=== PATIENT | female | born 1950 | race Caucasian/White ===

== ENCOUNTER 2018-01-10 10:17 | Emergency (ER) | END 2018-01-10 11:40 | disposition home or self-care (01) ==

== ENCOUNTER 2018-04-11 00:59 | Inpatient (IN) | payer MEDICARE, OTHER ==
[2018-04-11] VITALS (13 sets, daily range): BP systolic 126–155; BP diastolic 63–100; PULSE 52–114; RESP 16–30; Ht 152.4 cm; Wt 54.5 kg
[~2018-04-11] VITALS: Ht 152.4 cm; Wt 54.5 kg
[~2018-04-11 00:59] MED LIST: ADV25050 INHALATION; ALBU8.5H8 INH; HYDR-3029 PO; LEVO500T10 PO; METH5SOL3 PO; SERT-165 PO; TRAM50TA PO
[2018-04-11] MEDS ORDERED: morphine 2 MG INJ IV STA (01:34)
[2018-04-11] MEDS ORDERED: DEXTROSE 50% 50 ML SYRINGE IV ONE (02:00)
[2018-04-11] MEDS ORDERED: DIAZEPAM 5 MG/ML SYG IV ONE ×2 (02:30→03:30)
[2018-04-11] MEDS ORDERED: SOD CHLORIDE 0.9% 1,000 ML IV SCH (06:23)
[2018-04-11] MEDS ORDERED: ONDANSETRON 4 MG INJ IV PRN (06:30)
[2018-04-11] MEDS ORDERED: NACL 0.9% 3 ML SYG IV SCH (06:30)
[2018-04-11] MEDS ORDERED: HALOPERIDOL 5 MG INJ IM PRN ×2 (06:30→10:00)
--- NOTE | 2018-04-11 06:52 | HP ---
Date/Time of Note Date/Time of Note DATE: 04/11/18 TIME: 06:51 Assessment/Plan VTE Prophylaxis SCD applied (from Nsg): Yes Pharmacological prophylaxis: NA/contraindicated Pharm contraindication: low risk/ambulating Lines/Catheters IV Catheter Type (from Nrsg): Saline Lock Assessment/Plan Hospital Course This is a 60-year-old female being admitted to the telemetry floor for: #1 acute encephalopathy: Toxic metabolic possibly secondary to methadone and marijuana use. Urine drug screen is positive for opiates and cannabinoids. She did receive morphine and Valium in the ED and is now sedated, she is arousable but she does appear to be altered still. Will try to avoid further benzos at the current time also given that she has a Lorazepam allergy. PRN Haldol IM. Restraints as needed. Psych evaluation. CT scan of the head did not show any acute abnormalities. Consider MRI if indicated. #2 Acute kidney injury: Secondary likely to prerenal etiology, hemodynamics. IV fluid hydration with normal saline. Will monitor renal function. Avoid nephrotoxic agents. #3 history of hep C: gi on consult, check hcv #4 history of heroin abuse: Patient currently on methadone. Will consult Dr. Perez for further management. PRN Haldol for agitation and withdrawal symptoms. Psych consult #5 COPD: No respiratory distress at the current time no wheezing. Continue Advair #6 DVT GI prophylaxis: SCDs, no GI prophylaxis indicated Further treatment strategy will be implemented as per the clinical course. Result Diagram: 04/11/187 04/11/18 0127 Results 24hrs Laboratory Tests Test 04/11/18 01:14 04/11/18 01:26 04/11/18 01:27 04/11/18 01:56 Bedside Glucose 69 L 167 POC Venous Lactate 1.9 White Blood Count 7.5 # Red Blood Count 4.19 L Hemoglobin 12.8 Hematocrit 42.6 Mean Corpuscular 101.7 H Volume Mean Corpuscular 30.5 Hemoglobin Mean Corpuscular 30.0 L Hemoglobin Concent Red Cell 12.3 Distribution Width Platelet Count 129 L Mean Platelet Volume 11.3 H Immature 0.400 Granulocytes % Neutrophils % 65.6 Lymphocytes % 23.9 Monocytes % 7.0 Eosinophils % 2.8 Basophils % 0.3 Nucleated Red Blood 0.0 Cells % Immature 0.030 Granulocytes # Neutrophils # 4.9 Lymphocytes # 1.8 Monocytes # 0.5 Eosinophils # 0.2 Basophils # 0.0 Nucleated Red Blood 0.0 Cells # Sodium Level 140 Potassium Level 5.0 Chloride Level 97 Carbon Dioxide Level 35 H Anion Gap 8 Blood Urea Nitrogen 24 H Creatinine 1.07 H Est Glomerular 51 L Filtrat Rate mL/min Glucose Level 92 Calcium Level 9.6 Total Bilirubin 0.1 L Direct Bilirubin 0.00 Indirect Bilirubin 0.1 Aspartate Amino 75 H Transf (AST/SGOT) Alanine 49 Aminotransferase (AL T/SGPT) Alkaline Phosphatase 60 Troponin I < 0.012 Total Protein 8.4 H Albumin 4.4 Globulin 4.00 H Albumin/Globulin 1.10 Ratio Salicylates Level < 1.0 L Acetaminophen Level < 10.0 L Ethyl Alcohol Level < 10.0 H Test 04/11/18 03:16 04/11/18 05:13 04/11/18 05:29 Bedside Glucose 108 Urine Color STRAW Urine Clarity CLEAR Urine pH 7.0 Urine Specific 1.005 [place] Urine Ketones NEGATIVE Urine Nitrite NEGATIVE Urine Bilirubin NEGATIVE Urine Urobilinogen NEGATIVE Urine Leukocyte NEGATIVE Esterase Urine Hemoglobin NEGATIVE Urine Glucose 1+ H Urine Total Protein NEGATIVE Urine Opiates Screen Positive Urine Barbiturates Negative Urine Amphetamines Negative Screen Urine Negative Benzodiazepines Screen Urine Cocaine Screen Negative Urine Cannabinoids Positive Lactic Acid Level 2.3 *H HPI/ROS Admit Date/Time Admit Date/Time Hx of Present Illness Chief complaint: Brought in by EMS from home secondary to altered level of consciousness secondary to possible methadone overdose The following history was obtained from the nurse at the bedside as well as from the EMS documentation as the patient was unable to provide a history given her clinical condition. This is a 68-year-old female with a past medical history of hepatitis C, heroin abuse currently on methadone, and anxiety who was found at home by roommate altered in the bathroom. Patient does take methadone and it was thought that the patient may have had an overdose.. EMS responded and noted pinpoint pupils and she was given intranasal Narcan. She did become more responsive after receiving the Narcan however she was noted to be altered. When she arrived to the [facility] emergency room she was noted to be very restless she was alert and oriented x2 and she was screaming. She did not report any pain. Patient repeatedly tried to get out of the bed. And she was not stable enough to go into the CAT scan due to her agitation. She was initially given morphine to see if she would be able to calm down however this did not work so she was given Valium which eventually resulted in her becoming calm and sedated. Patient also required restraints prior to that she was trying get out of bed. At the current time at the bedside patient is somnolent. She did awaken to sternal rub however she she remains altered. Allergies: 1. SULFA. 2. CHLORPROMAZINE 3. LORAZEPAM. Medications: We will need to confirm however listed on the EMR methadone, tramadol, hydroxyzine, Levaquin, sertraline, Advair ROS Subjective hx not possible: other (altered ) PMH/Family/Social Past Medical History COPD. Hepatitis C. Anxiety. History of heroin abuse currently on methadone Medications Current Medications Sodium Chloride 1,000 ml @ 100 mls/hr Q10H IV ; Start 04/11/18 at 06:23 IV Flush (NS 3 ml) 3 ml PER PROTOCOL IV ; Start 04/11/18 at 06:30 Ondansetron HCl (Zofran Inj) 4 mg Q6H PRN IV NAUSEA/VOMITING; Start 04/11/18 at 06:30 Acetaminophen (Tylenol Tab) 650 mg Q6H PRN PO .PAIN 1-3 OR TEMP; Start 04/11/18 at 06:30 Haloperidol (Haldol) 3 mg Q4 PRN IM AGITATION/ANXIETY; Start 04/11/18 at 06:30 Coded Allergies: Sulfa (Sulfonamide Antibiotics) (Verified Allergy, Mild, 02/22/16) chlorpromazine HCl (Verified Allergy, Unknown, 02/22/16) lorazepam (Unverified Allergy, Unknown, 02/22/16) Uncoded Allergies: tape (Allergy, Mild, rash, 02/28/16) Past Surgical History Unable to obtain given patient's clinical condition Family History Significant Family History: other (Unable to obtain given patient's clinical condition) Social History Smoking Status: Former smoker Drug Use: other (History of heroin abuse, currently on methadone) Exam/Review of Systems Vital Signs Vitals Vital Signs Date Temp Pulse Resp B/P (MAP) Pulse Ox O2 O2 Flow FiO2 Time Delivery Rate 04/11/18 55 27 113/62 97 Room Air 05:53 (79) 04/11/18 97.4 05:30 Exam Exam General: Patient is currently sedated, she was arousable with sternal rub but she still appears altered. HEENT: Atraumatic, normocephalic. The pupils are equal, round and reactive, do not appear to be pinpoint at the current time Neck: Supple with full range of motion. No rigidity or meningismus Chest: Nontender Lungs: Clear to auscultation bilaterally no crackles rales or wheezing Heart: Normal S1-S2, Regular rhythm and rate. No murmur, S3, or S4 Abdomen: Soft , nontender, nondistended , bowel sounds are present. No guarding no rebound tenderness , No masses or organomegaly. Extremities: Normal to inspection, no edema no cyanosis Neurologic: Somnolent/sedated, arousable to sternal rub but she still appears altered. She does grimace to pain and move all 4 extremities Additional Comments EKG: Shows normal sinus rhythm at approximately 90 bpm, partial right bundle branch block PROCEDURE: CT BRAIN WITHOUT CONTRAST CLINICAL INDICATION: 68-year-old female with altered mental status. TECHNIQUE: The study was performed utilizing The [employer] 64-slice CT scanner. Direct axial sections were obtained from the foramen magnum to the vertex without the use of intravenous contrast material. There is motion artifact on the initial scanning therefore the scan was repeated. Sagittal and coronal reformations were obtained. One or more of the following dose reduction techniques were utilized: automated exposure control, adjustment of the mA and/or kV according to patient's size or use of iterative reconstruction technique. DICOM images are available. The images were viewed on a PACS workstation. CTD/vol = 79.28 mGy; Total Exam DLP = 1427.02 mGy.cm. COMPARISON: None. FINDINGS: Motion artifact limiting the evaluation despite repeating the study. There is [id number] degree of diffuse cortical and central atrophy with compensa tory ventricular enlargement. There is no evidence for mass effect or midline shift. There are periventricular and deep white matter areas of decreased density consistent with microangiopathic ischemic changes. There is focal superior and cerebellar vermis encephalomalacia. In retrospect this was seen on the patient's prior study. There is no evidence for acute intra or extra-axial blood. Calcifications are seen within the intracranial carotid arteries bilaterally. The bony calvarium is intact. There is thinning of the left lens again noted presumably from prior cataract surgery. The visualized paranasal sinuses and mastoid air cells are without significant abnormal soft tissue. IMPRESSION: 1. Motion artifact limiting the evaluation. 2. The intracranial contents are without significant interval change compared to the patient's prior CT scan from August 16, 2015. 3. [id number] diffuse atrophy. 4. Microangiopathic ischemic changes. 5. Focal superior cerebellar vermis encephalomalacia. This may be due to a prior infarct. 6. Vascular calcifications. .Kashif Morrow MD, MD Date Time Electronically viewed and signed by .Kashif Morrow MD, MD on 04/11/2018 05:19 .M/ CC: GERALDO NEWBY [id number] [place] Apr 11, 2018 06:52
[2018-04-11] MEDS ORDERED: NON-FORMULARY/PATIENT OWN MED (Salmeterol Xinaf/Fluticasone* (Advair*) 1 INH) INHALATION SCH (09:00)
--- NOTE | 2018-04-11 09:47 | PN ---
Date/Time of Note Date/Time of Note DATE: 04/11/18 TIME: 09:39 Assessment/Plan VTE Prophylaxis SCD applied (from Nsg): Yes Pharmacological prophylaxis: other Lines/Catheters IV Catheter Type (from Nrsg): Saline Lock Assessment/Plan Hospital Course S: Patient a bit more alert now, actually agitated and screaming out at times, but still overall lethargic. O: VS - see below PE: General: Patient is somewhat arousable, still appears altered. HEENT: Atraumatic, normocephalic. The pupils are equal, round and reactive, do not appear to be pinpoint at the current time Neck: Supple with full range of motion. No rigidity or meningismus Chest: Nontender Lungs: Clear to auscultation bilaterally no crackles rales or wheezing Heart: Normal S1-S2, Regular rhythm and rate Abdomen: Soft , nontender, nondistended , bowel sounds are present. No guarding no rebound tenderness , No masses or organomegaly. Extremities: Normal to inspection, no edema no cyanosis Neurologic: Somnolent/sedated, arousable to sternal rub but she still appears altered. She does grimace to pain and move all 4 extremities A/P: 60-year-old female being admitted to the telemetry floor for: #1 acute encephalopathy: Toxic metabolic possibly secondary to methadone and marijuana use. Urine drug screen is positive for opiates and cannabinoids. She did receive morphine and Valium in the ED and was sedated, she is arousable but she does appear to be altered still. CT scan of the head did not show any acute abnormalities. -Monitor, will try to avoid further benzos at the current time also given that she has a Lorazepam allergy. -Continue PRN Haldol IM. Restraints as needed. -Follow-up recommendations from pain management and psych evaluation. -Consider MRI if indicated. #2 Acute kidney injury: Secondary likely to prerenal etiology, hemodynamics. -Continue IV fluid hydration with normal saline. Will monitor renal function. Avoid nephrotoxic agents. #3 history of hep C: Apparent history of this, history of IV drug abuse -Monitor, will check acute hepatitis panel #4 history of heroin abuse: Patient currently on methadone. -Again, will consult Dr. Perez pain managed for further management, and will try to verify patient's home methadone dose -Continue PRN Haldol for agitation and withdrawal symptoms. Psych consult #5 COPD: No respiratory distress at the current time no wheezing. Continue Advair #6 DVT GI prophylaxis: SCDs, no GI prophylaxis indicated Further treatment strategy will be implemented as per the clinical course. Result Diagram: 04/11/1812604/11/18126 Results 24hrs Laboratory Tests Test 04/11/18 01:14 04/11/18 01:26 04/11/18 01:27 04/11/18 01:56 Bedside Glucose 69 L 167 POC Venous Lactate 1.9 White Blood Count 7.5 # Red Blood Count 4.19 L Hemoglobin 12.8 Hematocrit 42.6 Mean Corpuscular 101.7 H Volume Mean Corpuscular 30.5 Hemoglobin Mean Corpuscular 30.0 L Hemoglobin Concent Red Cell 12.3 Distribution Width Platelet Count 129 L Mean Platelet Volume 11.3 H Immature 0.400 Granulocytes % Neutrophils % 65.6 Lymphocytes % 23.9 Monocytes % 7.0 Eosinophils % 2.8 Basophils % 0.3 Nucleated Red Blood 0.0 Cells % Immature 0.030 Granulocytes # Neutrophils # 4.9 Lymphocytes # 1.8 Monocytes # 0.5 Eosinophils # 0.2 Basophils # 0.0 Nucleated Red Blood 0.0 Cells # Sodium Level 140 Potassium Level 5.0 Chloride Level 97 Carbon Dioxide Level 35 H Anion Gap 8 Blood Urea Nitrogen 24 H Creatinine 1.07 H Est Glomerular 51 L Filtrat Rate mL/min Glucose Level 92 Calcium Level 9.6 Total Bilirubin 0.1 L Direct Bilirubin 0.00 Indirect Bilirubin 0.1 Aspartate Amino 75 H Transf (AST/SGOT) Alanine 49 Aminotransferase (AL T/SGPT) Alkaline Phosphatase 60 Troponin I < 0.012 Total Protein 8.4 H Albumin 4.4 Globulin 4.00 H Albumin/Globulin 1.10 Ratio Salicylates Level < 1.0 L Acetaminophen Level < 10.0 L Ethyl Alcohol Level < 10.0 H Test 04/11/18 03:16 04/11/18 05:13 04/11/18 05:29 04/11/18 09:26 Bedside Glucose 108 80 Urine Color STRAW Urine Clarity CLEAR Urine pH 7.0 Urine Specific 1.005 [place] Urine Ketones NEGATIVE Urine Nitrite NEGATIVE Urine Bilirubin NEGATIVE Urine Urobilinogen NEGATIVE Urine Leukocyte NEGATIVE Esterase Urine Hemoglobin NEGATIVE Urine Glucose 1+ H Urine Total Protein NEGATIVE Urine Opiates Screen Positive Urine Barbiturates Negative Urine Amphetamines Negative Screen Urine Negative Benzodiazepines Screen Urine Cocaine Screen Negative Urine Cannabinoids Positive Lactic Acid Level 2.3 *H Exam/Review of Systems Exam Vitals Vital Signs Date Temp Pulse Resp B/P (MAP) Pulse Ox O2 O2 Flow FiO2 Time Delivery Rate 04/11/18 98.2 50 22 145/62 97 Room Air 09:00 (89) Results Results 24hrs Laboratory Tests Test 04/11/18 01:14 04/11/18 01:26 04/11/18 01:27 04/11/18 01:56 Bedside Glucose 69 L 167 POC Venous Lactate 1.9 White Blood Count 7.5 # Red Blood Count 4.19 L Hemoglobin 12.8 Hematocrit 42.6 Mean Corpuscular 101.7 H Volume Mean Corpuscular 30.5 Hemoglobin Mean Corpuscular 30.0 L Hemoglobin Concent Red Cell 12.3 Distribution Width Platelet Count 129 L Mean Platelet Volume 11.3 H Immature 0.400 Granulocytes % Neutrophils % 65.6 Lymphocytes % 23.9 Monocytes % 7.0 Eosinophils % 2.8 Basophils % 0.3 Nucleated Red Blood 0.0 Cells % Immature 0.030 Granulocytes # Neutrophils # 4.9 Lymphocytes # 1.8 Monocytes # 0.5 Eosinophils # 0.2 Basophils # 0.0 Nucleated Red Blood 0.0 Cells # Sodium Level 140 Potassium Level 5.0 Chloride Level 97 Carbon Dioxide Level 35 H Anion Gap 8 Blood Urea Nitrogen 24 H Creatinine 1.07 H Est Glomerular 51 L Filtrat Rate mL/min Glucose Level 92 Calcium Level 9.6 Total Bilirubin 0.1 L Direct Bilirubin 0.00 Indirect Bilirubin 0.1 Aspartate Amino 75 H Transf (AST/SGOT) Alanine 49 Aminotransferase (AL T/SGPT) Alkaline Phosphatase 60 Troponin I < 0.012 Total Protein 8.4 H Albumin 4.4 Globulin 4.00 H Albumin/Globulin 1.10 Ratio Salicylates Level < 1.0 L Acetaminophen Level < 10.0 L Ethyl Alcohol Level < 10.0 H Test 04/11/18 03:16 04/11/18 05:13 04/11/18 05:29 04/11/18 09:26 Bedside Glucose 108 80 Urine Color STRAW Urine Clarity CLEAR Urine pH 7.0 Urine Specific 1.005 [place] Urine Ketones NEGATIVE Urine Nitrite NEGATIVE Urine Bilirubin NEGATIVE Urine Urobilinogen NEGATIVE Urine Leukocyte NEGATIVE Esterase Urine Hemoglobin NEGATIVE Urine Glucose 1+ H Urine Total Protein NEGATIVE Urine Opiates Screen Positive Urine Barbiturates Negative Urine Amphetamines Negative Screen Urine Negative Benzodiazepines Screen Urine Cocaine Screen Negative Urine Cannabinoids Positive Lactic Acid Level 2.3 *H Medications Medication Current Medications Sodium Chloride 1,000 ml @ 100 mls/hr Q10H IV Last administered on 04/11/18at 07:36; Admin Dose 100 MLS/HR; Start 04/11/18 at 06:23 IV Flush (NS 3 ml) 3 ml PER PROTOCOL IV ; Start 04/11/18 at 06:30 Ondansetron HCl (Zofran Inj) 4 mg Q6H PRN IV NAUSEA/VOMITING; Start 04/11/18 at 06:30 Acetaminophen (Tylenol Tab) 650 mg Q6H PRN PO .PAIN 1-3 OR TEMP; Start 04/11/18 at 06:30 Haloperidol (Haldol) 3 mg Q4 PRN IM AGITATION/ANXIETY; Start 04/11/18 at 06:30 Miscellaneous Information 1 inh BID INHALATION ; Start 04/11/18 at 09:00; Status STU KOHLER Apr 11, 2018 09:47
[2018-04-11] MEDS ORDERED: ALBUTEROL/IPRATROPIUM (NEB) 3 ML AMP HHN PRN (10:00)
[2018-04-11] MEDS: ARFORMOTEROL TARTRATE 15MCG/2 ML AMP INH SCH ×2 (11:20→20:00)
[2018-04-11] MEDS: BUDESONIDE (NEB) 0.5MG/2ML AMP INH SCH ×2 (11:20→20:00)
[2018-04-11] MEDS: ALBUTEROL HFA 8 GM INHALER INH SCH ×4 (13:15→20:08)
[2018-04-11] MEDS ORDERED: DEXTROSE 50% 50 ML SYRINGE ONE (13:26)
[2018-04-11] MEDS ORDERED: GLUCOSE GEL 15 GRAM TUBE ONE (13:42)
[2018-04-11] MEDS ORDERED: QUETIAPINE 25 MG TAB NGT PRN (14:30)
[2018-04-11] MEDS ORDERED: DEXTROSE 50% 50 ML SYRINGE IV PRN ×2 (15:30)
[2018-04-11] MEDS ORDERED: GLUCAGON 1 MG INJ IM PRN (15:30)
[2018-04-11] MEDS ORDERED: GLUCOSE GEL 15 GRAM TUBE BUCCAL PRN (15:30)
[2018-04-11] MEDS ORDERED: GLUCOSE GEL 15 GRAM TUBE PO PRN ×2 (15:30)
[2018-04-11] MEDS: DEXTROSE 5%-0.9% NACL 1,000 ML IV SCH (15:38)
[2018-04-11] MEDS ORDERED: LIDOCAINE 1% (MPF) 5 ML VIAL SC ONE (16:30)
[2018-04-11] MEDS ORDERED: IOHEXOL 300MG/ML 150 ML BTL ONE (17:54)
[2018-04-11] MEDS ORDERED: SOD CHLORIDE 0.9% 0 ML ONE (17:54)
[2018-04-12] VITALS (13 sets, daily range): BP systolic 132–156; BP diastolic 66–76; PULSE 72–85; RESP 18–20
[2018-04-12] MEDS: DIPHENHYDRAMINE 50 MG INJ IV PRN (01:21)
[2018-04-12] MEDS: DEXTROSE 5%-0.9% NACL 1,000 ML IV SCH ×2 (04:20→05:32)
[2018-04-12] MEDS ORDERED: DIAZEPAM 5 MG/ML SYG IV ONE (06:00)
[2018-04-12] MEDS: ARFORMOTEROL TARTRATE 15MCG/2 ML AMP INH SCH ×2 (08:51→21:25)
[2018-04-12] MEDS: BUDESONIDE (NEB) 0.5MG/2ML AMP INH SCH ×2 (08:52→21:26)
[2018-04-12] MEDS ORDERED: POTASSIUM CHLORIDE 20 MEQ POWDER FOR ORAL SOLN PO ONE (09:00)
[2018-04-12] MEDS: ALBUTEROL HFA 8 GM INHALER INH SCH ×2 (09:06→13:13)
[2018-04-12] MEDS ORDERED: MAGNESIUM SULFATE 2 GM/50 ML 50 ML IVPB ONE (10:00)
--- NOTE | 2018-04-12 11:14 | PN ---
Date/Time of Note Date/Time of Note DATE: 04/12/18 TIME: 11:13 Assessment/Plan VTE Prophylaxis Risk score (from Nsg)>0 risk: 6 SCD applied (from Nsg): Yes Pharmacological prophylaxis: other Lines/Catheters IV Catheter Type (from Nrsg): PICC Line Central line still needed: Yes Urinary Cath still in place: Yes Reason Cath still needed: urinary retention Assessment/Plan Hospital Course S: Patient a bit more alert now, still in restraints, still confused overall, worked with physical therapy earlier. Seen by pain management team yesterday, waiting to be seen by psychiatry team. O: VS - see below PE: General: Patient is lying in bed, answering some questions, still confused but more alert since yesterday HEENT: Atraumatic, normocephalic. The pupils are equal, round and reactive, do not appear to be pinpoint at the current time Neck: Supple with full range of motion. No rigidity or meningismus Chest: Nontender Lungs: Clear to auscultation bilaterally no crackles rales or wheezing Heart: Normal S1-S2, Regular rhythm and rate Abdomen: Soft , nontender, nondistended , bowel sounds are present. No guarding no rebound tenderness Extremities: Normal to inspection, no edema no cyanosis Neurologic: No focal deficits A/P: 60-year-old female being admitted to the telemetry floor for: #1 acute encephalopathy: Toxic metabolic possibly secondary to heroin and marijuana use. Urine drug screen was positive for opiates and cannabinoids. She did receive morphine and Valium in the ED. CT scan of the head did not show any acute abnormalities. -Monitor, will try to avoid further benzos at the current time also given that she has a Lorazepam allergy. -Continue Restraints as needed. -Follow-up recommendations from pain management and psych evaluation -pending -Consider MRI if indicated. #2 Acute kidney injury: Resolving now, secondary likely to prerenal etiology, hemodynamics. -Continue IV fluid hydration with normal saline. Will monitor renal functi on. Avoid nephrotoxic agents. #3 history of hep C: Apparent history of this, history of IV drug abuse -Monitor, given abnormal hepatitis panel specifically with hepatitis B and C, will consult infectious disease for further input #4 history of heroin abuse: Patient currently on methadone. -Again, monitor, follow-up recommendations from pain team for further management, still trying to verify patient's home methadone dose -Continue Psych consult #5 COPD: No respiratory distress at the current time no wheezing. Continue Advair #6 DVT GI prophylaxis: SCDs, no GI prophylaxis indicated Further treatment strategy will be implemented as per the clinical course. Result Diagram: 04/12/18 0545 04/12/18 0545 Results 24hrs Laboratory Tests Test 04/11/18 12:57 04/11/18 13:25 04/11/18 13:50 04/11/18 14:27 Lactic Acid Level 1.9 Bedside Glucose 56 L 62 L 90 Test 04/11/18 14:59 04/11/18 15:56 04/11/18 17:13 04/12/18 05:45 Bedside Glucose 95 84 88 White Blood Count 11.0 #H Red Blood Count 3.59 L Hemoglobin 11.1 L Hematocrit 36.0 L Mean Corpuscular 100.3 Volume Mean Corpuscular 30.9 Hemoglobin Mean Corpuscular 30.8 L Hemoglobin Concent Red Cell 12.4 Distribution Width Platelet Count 144 Mean Platelet Volume 11.0 H Immature 0.300 Granulocytes % Neutrophils % 70.2 Lymphocytes % 21.8 Monocytes % 6.6 Eosinophils % 0.8 Basophils % 0.3 Nucleated Red Blood 0.0 Cells % Immature 0.030 Granulocytes # Neutrophils # 7.7 H Lymphocytes # 2.4 Monocytes # 0.7 Eosinophils # 0.1 Basophils # 0.0 Nucleated Red Blood 0.0 Cells # Sodium Level 145 H Potassium Level 3.2 L Chloride Level 113 H Carbon Dioxide Level 31 Anion Gap 1 L Blood Urea Nitrogen 11 # Creatinine 0.69 Est Glomerular > 60 Filtrat Rate mL/min Glucose Level 392 #H Hemoglobin A1c 5.5 Calcium Level 8.0 L Magnesium Level 1.4 L Total Bilirubin 0.3 Direct Bilirubin 0.00 Indirect Bilirubin 0.3 Aspartate Amino 46 Transf (AST/SGOT) Alanine 37 Aminotransferase (AL T/SGPT) Alkaline Phosphatase 58 Total Protein 6.3 # Albumin 3.3 # Globulin 3.00 Albumin/Globulin 1.10 Ratio Thyroid Stimulating 1.150 Hormone (TSH) Exam/Review of Systems Exam Vitals Vital Signs Date Temp Pulse Resp B/P (MAP) Pulse Ox O2 O2 Flow FiO2 Time Delivery Rate 04/12/18 98.6 85 18 154/68 96 Room Air 10:26 (96) 2/12/19 21 08:53 Intake and Output 04/11/18 04/11/18 04/12/18 1515:00 23:00 07:00 IntakeIntake Total 600 ml 1000 ml OutputOutput Total 1050 ml 550 ml BalanceBalance -450 ml 450 ml Results Results 24hrs Laboratory Tests Test 04/11/18 12:57 04/11/18 13:25 04/11/18 13:50 04/11/18 14:27 Lactic Acid Level 1.9 Bedside Glucose 56 L 62 L 90 Test 04/11/18 14:59 04/11/18 15:56 04/11/18 17:13 04/12/18 05:45 Bedside Glucose 95 84 88 White Blood Count 11.0 #H Red Blood Count 3.59 L Hemoglobin 11.1 L Hematocrit 36.0 L Mean Corpuscular 100.3 Volume Mean Corpuscular 30.9 Hemoglobin Mean Corpuscular 30.8 L Hemoglobin Concent Red Cell 12.4 Distribution Width Platelet Count 144 Mean Platelet Volume 11.0 H Immature 0.300 Granulocytes % Neutrophils % 70.2 Lymphocytes % 21.8 Monocytes % 6.6 Eosinophils % 0.8 Basophils % 0.3 Nucleated Red Blood 0.0 Cells % Immature 0.030 Granulocytes # Neutrophils # 7.7 H Lymphocytes # 2.4 Monocytes # 0.7 Eosinophils # 0.1 Basophils # 0.0 Nucleated Red Blood 0.0 Cells # Sodium Level 145 H Potassium Level 3.2 L Chloride Level 113 H Carbon Dioxide Level 31 Anion Gap 1 L Blood Urea Nitrogen 11 # Creatinine 0.69 Est Glomerular > 60 Filtrat Rate mL/min Glucose Level 392 #H Hemoglobin A1c 5.5 Calcium Level 8.0 L Magnesium Level 1.4 L Total Bilirubin 0.3 Direct Bilirubin 0.00 Indirect Bilirubin 0.3 Aspartate Amino 46 Transf (AST/SGOT) Alanine 37 Aminotransferase (AL T/SGPT) Alkaline Phosphatase 58 Total Protein 6.3 # Albumin 3.3 # Globulin 3.00 Albumin/Globulin 1.10 Ratio Thyroid Stimulating 1.150 Hormone (TSH) Medications Medication Current Medications IV Flush (NS 3 ml) 3 ml PER PROTOCOL IV ; Start 04/11/18 at 06:30 Ondansetron HCl (Zofran Inj) 4 mg Q6H PRN IV NAUSEA/VOMITING; Start 04/11/18 at 06:30 Acetaminophen (Tylenol Tab) 650 mg Q6H PRN PO .PAIN 1-3 OR TEMP; Start 04/11/18 at 06:30 Albuterol/ Ipratropium (Duoneb) 3 ml Q4H RESP THERAPY PRN HHN SHORTNESS OF BREATH; Start 04/11/18 at 10:00 Albuterol (Ventolin Hfa) 2 puff Q6H RESP THERAPY INH Last administered on 04/12/18at 09:06; Admin Dose 2 PUFF; Start 04/11/18 at 12:00 Arformoterol Tartrate (Brovana (Neb)) 2 ml Q12H RESP THERAPY INH Last administered on 04/12/18at 08:51; Admin Dose 2 ML; Start 04/11/18 at 12:00 Budesonide (Pulmicort (Neb)) 0.5 mg Q12H RESP THERAPY INH Last administered on 04/12/18at 08:52; Admin Dose 0.5 MG; Start 04/11/18 at 12:00 Diphenhydramine HCl (Benadryl) 50 mg Q6H PRN IV ANXIETY Last administered on 04/12/18at 01:21; Admin Dose 50 MG; Start 04/11/18 at 14:30 Dextrose/Sodium Chloride 1,000 ml @ 75 mls/hr [id number] IV Last administered on 04/12/18at 05:32; Admin Dose 75 MLS/HR; Start 04/11/18 at 15:00 Miscellaneous Information 1 ea NOTE XX ; Start 04/11/18 at 15:30 Glucose (Glutose) 15 gm Q15M PRN PO DECREASED GLUCOSE; Start 04/11/18 at 15:30 Glucose (Glutose) 22.5 gm Q15M PRN PO DECREASED GLUCOSE; Start 04/11/18 at 15:30 Dextrose (D50w Syringe) 25 ml Q15M PRN IV DECREASED GLUCOSE Last administered on 04/11/18at 14:00; Admin Dose 25 ML; Start 04/11/18 at 15:30 Dextrose (D50w Syringe) 50 ml Q15M PRN IV DECREASED GLUCOSE; Start 04/11/18 at 15:30 Glucagon (Glucagen) 1 mg Q15M PRN IM DECREASED GLUCOSE; Start 04/11/18 at 15:30 Glucose (Glutose) 15 gm Q15M PRN BUCCAL DECREASED GLUCOSE Last administered on 04/11/18at 13:30; Admin Dose 15 GM; Start 04/11/18 at 15:30 IV Flush (NS 10 ml) 10 ml PRN PRN IV FLUSH LINE; Start 04/11/18 at 17:00 Magnesium Sulfate 50 ml @ 25 mls/hr ONCE ONCE IVPB Last administered on 04/12/18at 09:38; Admin Dose 25 MLS/HR; Start 04/12/18 at 10:00; Stop 04/12/18 at 11:59 STU ORTEZ Apr 12, 2018 11:14
--- NOTE | 2018-04-12 12:55 | CONS ---
DATE OF ADMISSION: 04/11/2018 DATE OF CONSULTATION: 04/12/2018 TYPE OF CONSULTATION: Infectious disease. REASON FOR CONSULTATION: Antibiotic management. HISTORY OF PRESENT ILLNESS: Elise Hernandez is a 68-year-old female who was seen in the Emergency Room and was admitted to telemetry floor for a number of problems includin. Acute encephalopathy, toxic metabolic, possibly secondary to methadone and marijuana use. Urine screen positive for opiates and cannabinoids. She received morphine and Valium in the Emergency Room . She appeared to be altered. 2. Acute kidney injury. BUN and creatinine are 24/1.07. 3. Hepatitis C. 4. Heroin abuse. 5. Chronic obstructive pulmonary disease. Her white count was 7.5 with 66 neutrophils. Urinalysis w as negative for leukocyte esterase and nitrites. PAST MEDICAL HISTORY: As outlined. FAMILY HISTORY: Noncontributory. SOCIAL HISTORY: She is a former smoker. She has a history of heroin abuse, currently on methadone. MEDICATIONS: Per chart. FAMILY HISTORY: Noncontributory. SOCIAL HISTORY: She is a former smoker. She is a heroin abuser, currently on Methadone. ALLERGIES: 1. SULFA. 2. CHLORPROMAZINE. 3. LORAZEPAM. 4. TAPE. MEDICATIONS: Per chart. REVIEW OF SYSTEMS: Noncontributory. PHYSICAL EXAMINATION: GENERAL: The patient is arousable, altered in no acute distress. VITAL SIGNS: Stable. She is afebrile. SKIN: Without generalized rash. HEENT: Within normal limits. NECK: Supple. LYMPH NODES: None palpable. LUNGS: Clear to P and A. HEART: Without murmur or gallop. ABDOMEN: Soft, nontender, without organosplenomegaly or masses. EXTREMITIES: Without cyanosis, clubbing, or edema. RECTAL AND GENITAL: Deferred. NEUROLOGIC: No focal neurological abnormality. CT scan of the brain showed some focal superior cere bellar vermis encephalomalacia. This may be due to prior infarct, mild to moderate diffuse atrophy, microangiopathic ischemic changes. Currently, the patient is a bit more alert, has a PICC line in. There is a Cline catheter in for uri nary retention. Patient was seen by pain management. White count now is 11,000. I see no reason at this point to place her on antibiotic therapy. We will continue to observe. I will dictate my find ings on Elise Hernandez to the hospitalist and to the consultants. Dictated By: SALMA CARRILLO MD, JD/KAYLYN Conf#: [id number] DID#: [id number] CC: LEOBARDO DC MD;*EndCC*
--- NOTE | 2018-04-12 17:42 | PSY ---
Date/Time of Note Date/Time of Note DATE: 04/12/18 TIME: 17:36 Psychiatric Subjective Eval Consent Pt consented to telemedicine: No Subjective Evaluation Patient location: inpatient Chief Complaint: MARIBEL CAGE,ALOC,uses methadone @ home,was given narcan intranasal History of present illness Patient is a 60-year-old female with underlying medical history of acute encephalopathy, admitted for toxic metabolic syndrome secondary to methadone and marijuana use. On a [id number] evaluation, patient questioning why she is being seen for psychiatry. She denies history of depression, denies feeling hopeless and helpless, denied auditory hallucination, and contracted for safety. Patient reports extreme anxiety but states she will never take her own life because she loves to live.. Patient denies suicidal ideation and contracted for safety. Past psychiatric history Patient denies history of mental illness, however she admits history of substance use Medical history Problems Medical Problems: (1) Abscess Status: Acute (2) Altered level of consciousness Status: Acute (3) Anxiety Status: Acute (4) COPD (chronic obstructive pulmonary disease) Status: Acute (5) COPD exacerbation Status: Acute (6) Dehydration Status: Acute (7) Dizziness Status: Acute (8) Encounter for removal of juarez Status: Acute (9) Fall Status: Acute (10) Insomnia Status: Acute (11) Pneumonia Status: Acute (12) Sepsis Status: Acute Allergies: Coded Allergies: Sulfa (Sulfonamide Antibiotics) (Verified Allergy, Mild, 02/22/16) chlorpromazine HCl (Verified Allergy, Unknown, 02/22/16) lorazepam (Unverified Allergy, Unknown, 02/22/16) Uncoded Allergies: tape (Allergy, Mild, rash, 02/28/16) Substance Abuse Substance abuse history: Yes Prior substance abuse treatmen: Yes Social History Marital status: other DPA/Conservatorship: No Psychiatric Objective Eval Review of Systems: Review of Systems: Not Applicable Physical Examination: Physical Examination: Not Applicable Energy: Adequate Mental Status Examination: Appearance: Poor Hygiene Eye Contact: Good Psychomotor Activity: Normal Behavior: Cooperative Speech: Clear AFFECT: Appropriate, Anxious Mood: Appropriate/Full, Anxious Though Process: Linear Thought Content: Normal Suicidal: No Homicidal: No On 72 hour hold: No Orientation: x3 (She has periods of forgetfulness) Laboratory Results Laboratory Tests Test 04/11/18 01:14 04/11/18 01:26 04/11/18 01:27 04/11/18 01:56 Bedside Glucose 69 mg/dL 167 mg/dL POC Venous 1.9 mmol/L Lactate White Blood 7.5 10^3/ul Count Red Blood Count 4.19 10^6/ul Hemoglobin 12.8 g/dl Hematocrit 42.6 % Mean Corpuscular 101.7 fl Volume Mean Corpuscular 30.5 pg Hemoglobin Mean Corpuscular 30.0 g/dl Hemoglobin Precious nt Red Cell 12.3 % Distribution Width Platelet Count 129 10^3/UL Mean Platelet 11.3 fl Volume Immature 0.400 % Granulocytes % Neutrophils % 65.6 % Lymphocytes % 23.9 % Monocytes % 7.0 % Eosinophils % 2.8 % Basophils % 0.3 % Nucleated Red 0.0 /100WBC Blood Cells % Immature 0.030 10^3/ul Granulocytes # Neutrophils # 4.9 10^3/ul Lymphocytes # 1.8 10^3/ul Monocytes # 0.5 10^3/ul Eosinophils # 0.2 10^3/ul Basophils # 0.0 10^3/ul Nucleated Red 0.0 10^3/ul Blood Cells # Sodium Level 140 mmol/L Potassium Level 5.0 mmol/L Chloride Level 97 mmol/L Carbon Dioxide 35 mmol/L Level Anion Gap 8 Blood Urea 24 mg/dl Nitrogen Creatinine 1.07 mg/dl Est Glomerular 51 mL/min Filtrat Rate mL/min Glucose Level 92 mg/dl Calcium Level 9.6 mg/dl Total Bilirubin 0.1 mg/dl Direct Bilirubin 0.00 mg/dl Indirect 0.1 mg/dl Bilirubin Aspartate Amino 75 IU/L Transf (AST/SGOT ) Alanine 49 IU/L Aminotransferase (ALT/SGPT) Alkaline 60 IU/L Phosphatase Troponin I < 0.012 ng/ml Total Protein 8.4 g/dl Albumin 4.4 g/dl Globulin 4.00 g/dl Albumin/Globulin 1.10 Ratio Salicylates < 1.0 mg/dl Level Acetaminophen < 10.0 ug/ml Level Ethyl Alcohol < 10.0 mg/dl Level Test 04/11/18 03:16 04/11/18 05:13 04/11/18 05:29 04/11/18 09:26 Bedside Glucose 108 mg/dL 80 mg/dL Urine Color STRAW Urine Clarity CLEAR Urine pH 7.0 Urine Specific 1.005 [place] Urine Ketones NEGATIVE mg/dL Urine Nitrite NEGATIVE mg/dL Urine Bilirubin NEGATIVE mg/dL Urine NEGATIVE mg/dL Urobilinogen Urine Leukocyte NEGATIVE Acosta/ul Esterase Urine Hemoglobin NEGATIVE mg/dL Urine Glucose 1+ mg/dL Urine Total NEGATIVE mg/dl Protein Urine Opiates Positive Screen Urine Negative Barbiturates Urine Negative Amphetamines Screen Urine Negative Benzodiazepines Screen Urine Cocaine Negative Screen Urine Positive Cannabinoids Lactic Acid 2.3 mmol/L Level Test 04/11/18 09:50 04/11/18 12:57 04/11/18 13:25 04/11/18 13:50 Hepatitis B NEGATIVE Surface Antigen Hepatitis B Core REACTIVE Total Antibody Hepatitis C REACTIVE Antibody Lactic Acid 1.9 mmol/L Level Bedside Glucose 56 mg/dL 62 mg/dL Test 04/11/18 14:27 04/11/18 14:59 04/11/18 15:56 04/11/18 17:13 Bedside Glucose 90 mg/dL 95 mg/dL 84 mg/dL 88 mg/dL Test 04/12/18 05:45 White Blood 11.0 10^3/ul Count Red Blood Count 3.59 10^6/ul Hemoglobin 11.1 g/dl Hematocrit 36.0 % Mean Corpuscular 100.3 fl Volume Mean Corpuscular 30.9 pg Hemoglobin Mean Corpuscular 30.8 g/dl Hemoglobin Precious nt Red Cell 12.4 % Distribution Width Platelet Count 144 10^3/UL Mean Platelet 11.0 fl Volume Immature 0.300 % Granulocytes % Neutrophils % 70.2 % Lymphocytes % 21.8 % Monocytes % 6.6 % Eosinophils % 0.8 % Basophils % 0.3 % Nucleated Red 0.0 /100WBC Blood Cells % Immature 0.030 10^3/ul Granulocytes # Neutrophils # 7.7 10^3/ul Lymphocytes # 2.4 10^3/ul Monocytes # 0.7 10^3/ul Eosinophils # 0.1 10^3/ul Basophils # 0.0 10^3/ul Nucleated Red 0.0 10^3/ul Blood Cells # Sodium Level 145 mmol/L Potassium Level 3.2 mmol/L Chloride Level 113 mmol/L Carbon Dioxide 31 mmol/L Level Anion Gap 1 Blood Urea 11 mg/dl Nitrogen Creatinine 0.69 mg/dl Est Glomerular > 60 mL/min Filtrat Rate mL/min Glucose Level 392 mg/dl Hemoglobin A1c 5.5 % Calcium Level 8.0 mg/dl Magnesium Level 1.4 mg/dl Total Bilirubin 0.3 mg/dl Direct Bilirubin 0.00 mg/dl Indirect 0.3 mg/dl Bilirubin Aspartate Amino 46 IU/L Transf (AST/SGOT ) Alanine 37 IU/L Aminotransferase (ALT/SGPT) Alkaline 58 IU/L Phosphatase Total Protein 6.3 g/dl Albumin 3.3 g/dl Globulin 3.00 g/dl Albumin/Globulin 1.10 Ratio Thyroid 1.150 MIU/L Stimulating Hormone (TSH) Assessment and Plan Assessment/Diagnosis Diagnosis Anxiety NOS Recommendation/Plan Discharge Disposition: Other Legal Status: Voluntary (Does not meets criteria for 5150) FRANCISCO SILVEIRA NP Apr 12, 2018 17:42
[2018-04-13] VITALS (12 sets, daily range): BP systolic 132–159; BP diastolic 65–82; PULSE 69–111; RESP 18–20
[2018-04-13] MEDS: DIPHENHYDRAMINE 50 MG INJ IV PRN ×3 (02:50→19:38)
[2018-04-13] MEDS: DEXTROSE 5%-0.9% NACL 1,000 ML IV SCH ×2 (06:43→18:58)
[2018-04-13] MEDS: BUDESONIDE (NEB) 0.5MG/2ML AMP INH SCH ×2 (08:00→19:58)
[2018-04-13] MEDS: ARFORMOTEROL TARTRATE 15MCG/2 ML AMP INH SCH ×2 (08:00→19:58)
[2018-04-13] MEDS: ALBUTEROL HFA 8 GM INHALER INH SCH ×3 (08:47→21:09)
--- NOTE | 2018-04-13 10:15 | PN ---
Date/Time of Note Date/Time of Note DATE: 04/13/18 TIME: 10:05 Assessment/Plan VTE Prophylaxis Risk score (from Nsg)>0 risk: 4 SCD applied (from Nsg): Yes Pharmacological prophylaxis: other Lines/Catheters IV Catheter Type (from Nrsg): PICC Line Central line still needed: Yes Urinary Cath still in place: Yes Reason Cath still needed: urinary retention Assessment/Plan Hospital Course S: Patient more alert now, off restraints since yesterday. Seen by psychiatry team yesterday. Tolerating diet, order physical therapy and ambulating. Still trying to confirm patient's dose of methadone at her clinic. O: VS - see below PE: General: Patient is lying in bed, answering some questions, less confusion now HEENT: Atraumatic, normocephalic. The pupils are equal, round and reactive, do not appear to be pinpoint at the current time Neck: Supple with full range of motion. No rigidity or meningismus Chest: Nontender Lungs: Clear to auscultation bilaterally no crackles rales or wheezing Heart: Normal S1-S2, Regular rhythm and rate Abdomen: Soft , nontender, nondistended , bowel sounds are present. No guarding no rebound tenderness Extremities: Normal to inspection, no edema no cyanosis Neurologic: No focal deficits A/P: 60-year-old female being admitted to the telemetry floor for: #1 acute encephalopathy: Improving now, toxic metabolic possibly secondary to heroin and marijuana use. Urine drug screen was positive for opiates and cannabinoids. She did receive morphine and Valium in the ED. CT scan of the head did not show any acute abnormalities. -Monitor, will try to avoid further benzos at the current time also given that she has a Lorazepam allergy. -Follow-up recommendations from pain management and psych evaluation #2 Acute kidney injury: Resolving now, secondary likely to prerenal etiology, hemodynamics. -Continue IV fluid hydration with normal saline. Will monitor renal function. Avoid nephrotoxic agents. #3 history of hep C: Apparent history of this, history of IV drug abuse -Monitor, given abnormal hepatitis panel specifically with hepatitis B and C, will consult infectious disease for further input #4 history of heroin abuse: Patient currently on methadone. -Again, monitor, follow-up recommendations from pain team for further management, still trying to verify patient's home methadone dose -Continue Psych consult #5 COPD: No respiratory distress at the current time no wheezing. Continue Advair #6 DVT GI prophylaxis: SCDs, no GI prophylaxis indicated Further treatment strategy will be implemented as per the clinical course. Result Diagram: 04/13/18 0500 04/13/18 0500 Results 24hrs Laboratory Tests Test 04/13/18 05:00 White Blood Count 8.6 # Red Blood Count 3.82 L Hemoglobin 11.8 L Hematocrit 36.8 L Mean Corpuscular Volume 96.3 Mean Corpuscular Hemoglobin 30.9 Mean Corpuscular Hemoglobin Concent 32.1 Red Cell Distribution Width 12.7 Platelet Count 122 L Mean Platelet Volume 11.6 H Immature Granulocytes % 0.200 Neutrophils % 64.9 Lymphocytes % 25.0 Monocytes % 7.6 Eosinophils % 1.9 Basophils % 0.4 Nucleated Red Blood Cells % 0.0 Immature Granulocytes # 0.020 Neutrophils # 5.6 Lymphocytes # 2.1 Monocytes # 0.7 Eosinophils # 0.2 Basophils # 0.0 Nucleated Red Blood Cells # 0.0 Sodium Level 141 Potassium Level 3.6 Chloride Level 102 # Carbon Dioxide Level 32 H Anion Gap 7 Blood Urea Nitrogen 10 Creatinine 0.74 Est Glomerular Filtrat Rate mL/min > 60 Glucose Level 92 # Calcium Level 8.4 Phosphorus Level 3.1 Magnesium Level 2.1 Exam/Review of Systems Exam Vitals Vital Signs Date Temp Pulse Resp B/P (MAP) Pulse Ox O2 O2 Flow FiO2 Time Delivery Rate 04/13/18 69 08:43 04/13/18 99.5 19 134/73 95 07:47 (93) 04/12/18 21 21:45 04/12/18 Room Air 15:40 Intake and Output 04/12/18 04/12/18 04/13/18 1515:00 23:00 07:00 IntakeIntake Total 530 ml 400 ml OutputOutput Total 800 ml 700 ml BalanceBalance -270 ml -300 ml Results Results 24hrs Laboratory Tests Test 04/13/18 05:00 White Blood Count 8.6 # Red Blood Count 3.82 L Hemoglobin 11.8 L Hematocrit 36.8 L Mean Corpuscular Volume 96.3 Mean Corpuscular Hemoglobin 30.9 Mean Corpuscular Hemoglobin Concent 32.1 Red Cell Distribution Width 12.7 Platelet Count 122 L Mean Platelet Volume 11.6 H Immature Granulocytes % 0.200 Neutrophils % 64.9 Lymphocytes % 25.0 Monocytes % 7.6 Eosinophils % 1.9 Basophils % 0.4 Nucleated Red Blood Cells % 0.0 Immature Granulocytes # 0.020 Neutrophils # 5.6 Lymphocytes # 2.1 Monocytes # 0.7 Eosinophils # 0.2 Basophils # 0.0 Nucleated Red Blood Cells # 0.0 Sodium Level 141 Potassium Level 3.6 Chloride Level 102 # Carbon Dioxide Level 32 H Anion Gap 7 Blood Urea Nitrogen 10 Creatinine 0.74 Est Glomerular Filtrat Rate mL/min > 60 Glucose Level 92 # Calcium Level 8.4 Phosphorus Level 3.1 Magnesium Level 2.1 Medications Medication Current Medications IV Flush (NS 3 ml) 3 ml PER PROTOCOL IV ; Start 04/11/18 at 06:30 Ondansetron HCl (Zofran Inj) 4 mg Q6H PRN IV NAUSEA/VOMITING; Start 04/11/18 at 06:30 Acetaminophen (Tylenol Tab) 650 mg Q6H PRN PO .PAIN 1-3 OR TEMP; Start 04/11/18 at 06:30 Albuterol/ Ipratropium (Duoneb) 3 ml Q4H RESP THERAPY PRN HHN SHORTNESS OF BREATH; Start 04/11/18 at 10:00 Albuterol (Ventolin Hfa) 2 puff Q6H RESP THERAPY INH Last administered on 04/13/18at 08:47; Admin Dose 2 PUFF; Start 04/11/18 at 12:00 Arformoterol Tartrate (Brovana (Neb)) 2 ml Q12H RESP THERAPY INH Last administered on 04/12/18 21:25; Admin Dose 2 ML; Start 04/11/18 at 12:00 Budesonide (Pulmicort (Neb)) 0.5 mg Q12H RESP THERAPY INH Last administered on 04/12/18 21:26; Admin Dose 0.5 MG; Start 04/11/18 at 12:00 Diphenhydramine HCl (Benadryl) 50 mg Q6H PRN IV ANXIETY Last administered on 04/13/18 02:50; Admin Dose 50 MG; Start 04/11/18 at 14:30 Dextrose/Sodium Chloride 1,000 ml @ 75 mls/hr [id number] IV Last administered on 04/13/18 06:43; Admin Dose 75 MLS/HR; Start 04/11/18 at 15:00 Miscellaneous Information 1 ea NOTE XX ; Start 04/11/18 at 15:30 Glucose (Glutose) 15 gm Q15M PRN PO DECREASED GLUCOSE; Start 04/11/18 at 15:30 Glucose (Glutose) 22.5 gm Q15M PRN PO DECREASED GLUCOSE; Start 04/11/18 at 15:30 Dextrose (D50w Syringe) 25 ml Q15M PRN IV DECREASED GLUCOSE Last administered on 04/11/18at 14:00; Admin Dose 25 ML; Start 04/11/18 at 15:30 Dextrose (D50w Syringe) 50 ml Q15M PRN IV DECREASED GLUCOSE; Start 04/11/18 at 15:30 Glucagon (Glucagen) 1 mg Q15M PRN IM DECREASED GLUCOSE; Start 04/11/18 at 15:30 Glucose (Glutose) 15 gm Q15M PRN BUCCAL DECREASED GLUCOSE Last administered on 04/11/18at 13:30; Admin Dose 15 GM; Start 04/11/18 at 15:30 IV Flush (NS 10 ml) 10 ml PRN PRN IV FLUSH LINE; Start 04/11/18 at 17:00 STU ORTEZ Apr 13, 2018 10:15
[2018-04-13] MEDS: ACETAMINOPHEN 325 MG TAB PO PRN ×2 (12:02→21:14)
--- NOTE | 2018-04-13 12:52 | CONS ---
Assessment/Plan Assessment/Plan Hospital Course (Demo Recall) Patient is alert and looks comfortable denies pain no fevers overnight she is off antibiotics WBC 8.6 no shift no bands BUN 10 creatinine 0.74. Serology for hepatitis B and C positive. Physical examination: Well-developed well-nourished elderly woman who is alert in no distress. Head atraumatic normocephalic sclera nonicteric vehicle mucosa pink neck is supple chest rise symmetrical breath sounds clear heart S1-S2 abdomen soft bowel sounds present extremities without cyanosis Assessment: 1. Status post acute encephalopathy 2. Positive hepatitis C and B virus 3. History of heroin abuse 4. COPD Plan: Patient is stable off antibiotics, consider GI evaluation Consultation Date/Type/Reason Admit Date/Time Apr 11, 2018 at 05:39 Initial Consult Date Type of Consult id Date/Time of Note DATE: 04/13/18 TIME: 12:52 Exam/Review of Systems Exam Vitals Vital Signs Date Temp Pulse Resp B/P (MAP) Pulse Ox O2 O2 Flow FiO2 Time Delivery Rate 04/13/18 83 12:15 04/13/18 99.8 12:02 04/13/18 18 135/73 93 Room Air 11:17 (93) 04/12/18 21 21:45 Intake and Output 04/12/18 04/12/18 04/13/18 1515:00 23:00 07:00 IntakeIntake Total 530 ml 400 ml OutputOutput Total 800 ml 700 ml BalanceBalance -270 ml -300 ml Results Result Diagram: 04/13/18 0500 04/13/18 0500 Results 24hrs Laboratory Tests Test 04/13/18 05:00 White Blood Count 8.6 # Red Blood Count 3.82 L Hemoglobin 11.8 L Hematocrit 36.8 L Mean Corpuscular Volume 96.3 Mean Corpuscular Hemoglobin 30.9 Mean Corpuscular Hemoglobin Concent 32.1 Red Cell Distribution Width 12.7 Platelet Count 122 L Mean Platelet Volume 11.6 H Immature Granulocytes % 0.200 Neutrophils % 64.9 Lymphocytes % 25.0 Monocytes % 7.6 Eosinophils % 1.9 Basophils % 0.4 Nucleated Red Blood Cells % 0.0 Immature Granulocytes # 0.020 Neutrophils # 5.6 Lymphocytes # 2.1 Monocytes # 0.7 Eosinophils # 0.2 Basophils # 0.0 Nucleated Red Blood Cells # 0.0 Sodium Level 141 Potassium Level 3.6 Chloride Level 102 # Carbon Dioxide Level 32 H Anion Gap 7 Blood Urea Nitrogen 10 Creatinine 0.74 Est Glomerular Filtrat Rate mL/min > 60 Glucose Level 92 # Calcium Level 8.4 Phosphorus Level 3.1 Magnesium Level 2.1 Medications Medication Current Medications IV Flush (NS 3 ml) 3 ml PER PROTOCOL IV ; Start 04/11/18 at 06:30 Ondansetron HCl (Zofran Inj) 4 mg Q6H PRN IV NAUSEA/VOMITING; Start 04/11/18 at 06:30 Acetaminophen (Tylenol Tab) 650 mg Q6H PRN PO .PAIN 1-3 OR TEMP Last administered on 04/13/18at 12:02; Admin Dose 650 MG; Start 04/11/18 at 06:30 Albuterol/ Ipratropium (Duoneb) 3 ml Q4H RESP THERAPY PRN HHN SHORTNESS OF BREATH; Start 04/11/18 at 10:00 Albuterol (Ventolin Hfa) 2 puff Q6H RESP THERAPY INH Last administered on 04/13/18at 08:47; Admin Dose 2 PUFF; Start 04/11/18 at 12:00 Arformoterol Tartrate (Brovana (Neb)) 2 ml Q12H RESP THERAPY INH Last administered on 04/12/18at 21:25; Admin Dose 2 ML; Start 04/11/18 at 12:00 Budesonide (Pulmicort (Neb)) 0.5 mg Q12H RESP THERAPY INH Last administered on 04/12/18 21:26; Admin Dose 0.5 MG; Start 04/11/18 at 12:00 Diphenhydramine HCl (Benadryl) 50 mg Q6H PRN IV ANXIETY Last administered on 04/13/18at 02:50; Admin Dose 50 MG; Start 04/11/18 at 14:30 Dextrose/Sodium Chloride 1,000 ml @ 75 mls/hr [id number] IV Last administered on 04/13/18at 06:43; Admin Dose 75 MLS/HR; Start 04/11/18 at 15:00 Miscellaneous Information 1 ea NOTE XX ; Start 04/11/18 at 15:30 Glucose (Glutose) 15 gm Q15M PRN PO DECREASED GLUCOSE; Start 2/11/19 at 15:30 Glucose (Glutose) 22.5 gm Q15M PRN PO DECREASED GLUCOSE; Start 04/11/18 at 15:30 Dextrose (D50w Syringe) 25 ml Q15M PRN IV DECREASED GLUCOSE Last administered on 04/11/18at 14:00; Admin Dose 25 ML; Start 04/11/18 at 15:30 Dextrose (D50w Syringe) 50 ml Q15M PRN IV DECREASED GLUCOSE; Start 04/11/18 at 15:30 Glucagon (Glucagen) 1 mg Q15M PRN IM DECREASED GLUCOSE; Start 04/11/18 at 15:30 Glucose (Glutose) 15 gm Q15M PRN BUCCAL DECREASED GLUCOSE Last administered on 04/11/18at 13:30; Admin Dose 15 GM; Start 04/11/18 at 15:30 IV Flush (NS 10 ml) 10 ml PRN PRN IV FLUSH LINE; Start 04/11/18 at 17:00 SKY HOSKINS NP Apr 13, 2018 12:52
[2018-04-14] VITALS (10 sets, daily range): BP systolic 127–159; BP diastolic 59–84; PULSE 63–99; RESP 18–20
[2018-04-14] MEDS: ALBUTEROL HFA 8 GM INHALER INH SCH ×3 (01:06→14:00)
[2018-04-14] MEDS: BUDESONIDE (NEB) 0.5MG/2ML AMP INH SCH ×3 (01:35→19:52)
[2018-04-14] MEDS: DIPHENHYDRAMINE 50 MG INJ IV PRN (05:20)
[2018-04-14] MEDS: ARFORMOTEROL TARTRATE 15MCG/2 ML AMP INH SCH ×2 (09:22→19:52)
[2018-04-14] MEDS: DEXTROSE 5%-0.9% NACL 1,000 ML IV SCH (09:40)
[2018-04-14] MEDS ORDERED: POTASSIUM CHLORIDE (SR) 20 MEQ TAB PO STA (11:19)
--- NOTE | 2018-04-14 11:36 | PDOCDIS ---
Discharge Instructions CONDITION [id number] Patient Condition: [id number] Stable HOME CARE INSTRUCTIONS: [id number] Diet Instructions: [id number] Low Fat /Cholesterol ACTIVITY: [id number] Activity Restrictions: [id number] Slowly Increase Activity Rest between Activity Avoid heavy lifting FOLLOW UP/APPOINTMENTS Follow-up Plan Please take your medications as prescribed, do not use any heroin or excess sleeping pills, and please see your doctor in the clinic in the next 1 week. STU ORTEZ Apr 14, 2018 11:36
[2018-04-14] MEDS ORDERED: METH5SOL3 PO (11:37)
--- NOTE | 2018-04-14 11:42 | DS ---
Date/Time of Note Date/Time of Note DATE: 04/14/18 TIME: 11:37 Discharge Summary Admission/Discharge Info Admit Date/Time Apr 11, 2018 at 05:39 Discharge Date/Time Discharge Diagnosis #1 acute encephalopathy: Improving now, toxic metabolic possibly secondary to possible heroin and marijuana use. Urine drug screen was positive for opiates and cannabinoids. -Follow-up recommendations from pain management and psych evaluation #2 Acute kidney injury: Resolved #3 history of both hepatitis B and hep C: Apparent history of this, history of IV drug abuse --For outpatient follow-up with GI doctor #4 history of heroin abuse: Patient currently on methadone. -Counseled on cessation #5 COPD Patient Condition: Stable Hx of Present Illness 68-year-old female with a past medical history of hepatitis C, heroin abuse cu rrently on methadone, and anxiety who was found at home by roommate altered in the bathroom. Patient does take methadone and it was thought that the patient may have had an overdose.. EMS responded and noted pinpoint pupils and she was given intranasal Narcan. She did become more responsive after receiving the Narcan however she was noted to be altered. When she arrived to the [facility] emergency room she was noted to be very restless she was alert and oriented x2 and she was screaming. She did not report any pain. Patient repeatedly tried to get out of the bed. And she was not stable enough to go into the CAT scan due to her agitation. She was initially given morphine to see if she would be able to calm down however this did not work so she was given Valium which eventually resulted in her becoming calm and sedated. Patient also required restraints prior to that she was trying get out of bed. At the current time at the bedside patient is somnolent. She did awaken to sternal rub however she she remains altered. Hospital Course So patient was admitted with acute encephalopathy, thought to be secondary to heroin and marijuana use. Urine drug screen was positive for opiates and cannabinoids. Later when the patient became more awake and alert she said it may have been an overdose of sleeping pill, in any event on admission she did receive morphine and Valium in the ED. she was also found with acute kidney injury. Over the course of her hospital stay she received IV fluids and monitor for detoxification. She eventually was able to be transferred out of intensive care unit and to telemetry floor, and restraints were eventually removed. She worked with physical therapy was able to ambulate. She was able to tolerate p.o. diet. Because of her specific hepatitis B and C findings, she will be referred for outpatient GI doctor follow-up for further investigation of that. She was also seen by social science research assistant and educated about the importance of not over taking her pain medication as a possible opiate abuse. She also continued on methadone after we verified her outpatient dose while she was here. Seen by social science research assistant and pain management team as well for that. She will be discharged home later today in improved condition. See below for full list of discharge medications. Home Meds Active Scripts Methadone Hcl* (Methadone*) 5 Mg/5 Ml Solution, 68 MG PO DAILY for 30 Days, ML Prov:STU ORTEZ 04/14/18 Hydroxyzine Hcl* (Hydroxyzine Hcl*) 10 Mg Tablet, 10 MG PO TID, #20 TAB Prov:CASA RIOJAS MD 01/10/18 Sertraline Hcl* (Sertraline Hcl*) 100 Mg Tablet, 100 MG PO DAILY for 30 Days, TAB Prov:ZHANG WARE NP 02/28/16 Salmeterol Xinaf/Fluticasone* (Advair*) 250-50 Diskus Inhaler, 1 INH INHALATION BID for 30 Days, #1 INHALER Prov:ZHANG WARE NP 02/28/16 Albuterol Sulfate* (Proair HFA*) 8.5 Gm Hfa.aer.ad, 2 PUFF INH Q6 for SHORTNESS OF BREATH for 14 Days, #1 INHALER Prov:ZHANG WARE NP 02/28/16 Discontinued Scripts Tramadol Hcl* (Ultram*) 50 Mg Tablet, 100 MG PO Q8, #20 TAB Prov:ZHANG WARE NP 02/28/16 Levofloxacin* (Levofloxacin*) 500 Mg Tablet, 500 MG PO DAILY for 5 Days, TAB Prov:ZHANG WARE NP 02/28/16 Follow-up Plan Please take your medications as prescribed, do not use any heroin or excess sleeping pills, and please see your doctor in the clinic in the next 1 week. Primary Care Provider Erna Pollack Time spent on discharge: > 30 minutes Pending Labs Laboratory Tests Test 04/14/18 05:16 04/14/18 10:55 White Blood Count 6.2 10^3/ul (4.8-10.8) Red Blood Count 3.18 10^6/ul (4.20-5.40) Hemoglobin 9.7 g/dl (12.0-16.0) Hematocrit 31.8 % (37.0-47.0) Mean Corpuscular Volume 100.0 fl (82.0-101.0) Mean Corpuscular Hemoglobin 30.5 pg (29.0-33.0) Mean Corpuscular 30.5 g/dl (32.0-37.0) Hemoglobin Concent Red Cell Distribution Width 12.8 % (11.5-14.5) Platelet Count 104 10^3/UL (140-415) Mean Platelet Volume 11.1 fl (7.4-10.4) Immature Granulocytes % 0.300 % (0.001-0.429) Neutrophils % 63.5 % (39.0-77.0) Lymphocytes % 23.1 % (15.0-51.0) Monocytes % 8.6 % (0.0-11.0) Eosinophils % 4.2 % (0.0-7.0) Basophils % 0.3 % (0.0-2.0) Nucleated Red Blood Cells % 0.0 /100WBC (0.0-0.0) Immature Granulocytes # 0.020 10^3/ul (0.0-0.031) Neutrophils # 3.9 10^3/ul (1.6-7.5) Lymphocytes # 1.4 10^3/ul (0.8-2.9) Monocytes # 0.5 10^3/ul (0.3-0.9) Eosinophils # 0.3 10^3/ul (0.0-0.5) Basophils # 0.0 10^3/ul (0.0-0.1) Nucleated Red Blood Cells # 0.0 10^3/ul (0.0-0.0) Sodium Level 142 mmol/L (135-144) Potassium Level 3.1 mmol/L (3.5-5.1) Chloride Level 110 mmol/L (97-110) Carbon Dioxide Level 26 mmol/L (21-31) Anion Gap 6 (5-13) Blood Urea Nitrogen 7 mg/dl (7-20) Creatinine 0.61 mg/dl (0.44-1.00) Est Glomerular Filtrat > 60 mL/min (>60) Rate mL/min Glucose Level 356 mg/dl (70-220) Calcium Level 7.2 mg/dl (8.4-10.2) Lab Scanned Report REFERENCE LAB [id number] STU ORTEZ Apr 14, 2018 11:42
[2018-04-14] MEDS ORDERED: METHADONE (1 MG/ML 5 ML PO UD SYG) PO SCH ×2 (12:30)
--- NOTE | 2018-04-14 14:12 | CONS ---
Assessment/Plan Assessment/Plan Hospital Course (Demo Recall) Patient is alert and looks comfortable denies pain no fevers overnight she is off antibiotics Physical examination: Well-developed well-nourished elderly woman who is alert in no distress. Head atraumatic normocephalic sclera nonicteric vehicle mucosa pink neck is supple chest rise symmetrical breath sounds clear heart S1-S2 abdomen soft bowel sounds present extremities without cyanosis Assessment: 1. Status post acute encephalopathy 2. Positive hepatitis C and B virus 3. History of heroin abuse 4. COPD Plan: Patient is stable off antibiotics, pending discharge Consultation Date/Type/Reason Admit Date/Time Apr 11, 2018 at 05:39 Initial Consult Date Type of Consult id Date/Time of Note DATE: 04/14/18 TIME: 14:11 Exam/Review of Systems Exam Vitals Vital Signs Date Temp Pulse Resp B/P (MAP) Pulse Ox O2 O2 Flow FiO2 Time Delivery Rate 04/14/18 97 12:22 04/14/18 98.7 20 146/72 98 Room Air 11:43 (96) 04/14/18 21 09:27 04/14/18 2.0 01:40 Intake and Output 04/13/18 04/13/18 04/14/18 1515:00 23:00 07:00 IntakeIntake Total 600 ml OutputOutput Total 400 ml BalanceBalance 200 ml Results Result Diagram: 04/14/18 0516 04/14/18 0516 Results 24hrs Laboratory Tests Test 04/14/18 05:16 04/14/18 10:55 White Blood Count 6.2 # Red Blood Count 3.18 L Hemoglobin 9.7 L Hematocrit 31.8 L Mean Corpuscular Volume 100.0 Mean Corpuscular Hemoglobin 30.5 Mean Corpuscular Hemoglobin Concent 30.5 L Red Cell Distribution Width 12.8 Platelet Count 104 L Mean Platelet Volume 11.1 H Immature Granulocytes % 0.300 Neutrophils % 63.5 Lymphocytes % 23.1 Monocytes % 8.6 Eosinophils % 4.2 Basophils % 0.3 Nucleated Red Blood Cells % 0.0 Immature Granulocytes # 0.020 Neutrophils # 3.9 Lymphocytes # 1.4 Monocytes # 0.5 Eosinophils # 0.3 Basophils # 0.0 Nucleated Red Blood Cells # 0.0 Sodium Level 142 Potassium Level 3.1 L Chloride Level 110 Carbon Dioxide Level 26 Anion Gap 6 Blood Urea Nitrogen 7 Creatinine 0.61 Est Glomerular Filtrat Rate mL/min > 60 Glucose Level 356 #H Calcium Level 7.2 L Lab Scanned Report REFERENCE LAB Medications Medication Current Medications IV Flush (NS 3 ml) 3 ml PER PROTOCOL IV ; Start 04/11/18 at 06:30 Ondansetron HCl (Zofran Inj) 4 mg Q6H PRN IV NAUSEA/VOMITING; Start 04/11/18 at 06:30 Acetaminophen (Tylenol Tab) 650 mg Q6H PRN PO .PAIN 1-3 OR TEMP Last administered on 04/13/18at 21:14; Admin Dose 650 MG; Start 04/11/18 at 06:30 Albuterol/ Ipratropium (Duoneb) 3 ml Q4H RESP THERAPY PRN HHN SHORTNESS OF BREATH; Start 04/11/18 at 10:00 Albuterol (Ventolin Hfa) 2 puff Q6H RESP THERAPY INH Last administered on 04/14/18at 08:00; Admin Dose 2 PUFF; Start 04/11/18 at 12:00 Arformoterol Tartrate (Brovana (Neb)) 2 ml Q12H RESP THERAPY INH Last administered on 04/14/18at 09:22; Admin Dose 2 ML; Start 04/11/18 at 12:00 Budesonide (Pulmicort (Neb)) 0.5 mg Q12H RESP THERAPY INH Last administered on 04/14/18 01:35; Admin Dose 0.5 MG; Start 04/11/18 at 12:00 Diphenhydramine HCl (Benadryl) 50 mg Q6H PRN IV ANXIETY Last administered on 04/14/18at 05:20; Admin Dose 50 MG; Start 04/11/18 at 14:30 Dextrose/Sodium Chloride 1,000 ml @ 75 mls/hr [id number] IV Last administered on 04/14/18at 09:40; Admin Dose 75 MLS/HR; Start 04/11/18 at 15:00 Miscellaneous Information 1 ea NOTE XX ; Start 04/11/18 at 15:30 Glucose (Glutose) 15 gm Q15M PRN PO DECREASED GLUCOSE; Start 04/11/18 at 15:30 Glucose (Glutose) 22.5 gm Q15M PRN PO DECREASED GLUCOSE; Start 04/11/18 at 15:30 Dextrose (D50w Syringe) 25 ml Q15M PRN IV DECREASED GLUCOSE Last administered on 04/11/18at 14:00; Admin Dose 25 ML; Start 04/11/18 at 15:30 Dextrose (D50w Syringe) 50 ml Q15M PRN IV DECREASED GLUCOSE; Start 04/11/18 at 15:30 Glucagon (Glucagen) 1 mg Q15M PRN IM DECREASED GLUCOSE; Start 04/11/18 at 15:30 Glucose (Glutose) 15 gm Q15M PRN BUCCAL DECREASED GLUCOSE Last administered on 04/11/18at 13:30; Admin Dose 15 GM; Start 04/11/18 at 15:30 IV Flush (NS 10 ml) 10 ml PRN PRN IV FLUSH LINE; Start 04/11/18 at 17:00 Methadone HCl (Methadone Liq) 68 mg DAILY PO Last administered on 04/14/18at 12:00; Admin Dose 68 MG; Start 04/14/18 at 12:30 SKY HOSKINS NP Apr 14, 2018 14:12
== END 2018-04-14 21:20 | disposition home or self-care (01) | DRG 917 ==
LOC: E/R 00:59 → ICU 05:39 → 6WM 17:46
PROVIDERS: ADMIT Family Medicine; ATTEND Hospitalist
DX: T40.1X1A Poisoning by heroin, accidental (unintentional), initial encounter (principal); G92 Toxic encephalopathy; N17.9 Acute kidney failure, unspecified; F11.20 Opioid dependence, uncomplicated; F11.10 Opioid abuse, uncomplicated; Y92.002 Bathroom of unspecified non-institutional (private) residence as the place of occurrence of the external cause; Z78.1 Physical restraint status; F12.90 Cannabis use, unspecified, uncomplicated; J44.9 Chronic obstructive pulmonary disease, unspecified; Z87.891 Personal history of nicotine dependence; F41.9 Anxiety disorder, unspecified
CPT/HCPCS: 36569; 70450; 71045; 76937; 80048; 80053; 80307; 81003; 82962; 83036; 83605; 83735; 84100; 84443; 84484; 85025; 86704; 86709; 86803; 87340; 87522; 93005; 94640; 94664; 97116; 97162; 97530; J1200; J1630; J2270; J3360; J3475; J7030; J7042; Q9967

== ENCOUNTER 2018-04-29 21:15 | Emergency (ER) | payer MEDICARE, OTHER ==
[~2018-04-29] VITALS: Ht 152.4 cm; Wt 45.0 kg
[~2018-04-29 21:15] MED LIST changes: -LEVO500T10 PO; -TRAM50TA PO
[2018-04-29 21:39] VITALS: Ht 152.4 cm; Wt 45.0 kg
--- NOTE | 2018-04-29 23:02 | ERD ---
ER Documentation Chief Complaint Chief Complaint Nausea, diarrhea HPI The patient is a 68-year-old female, presenting to the ER because of nausea, diarrhea, not feeling well for the last day. She did not go to methadone clinic today to obtain her methadone 68 mg daily nightly requesting methadone p.o. She denies fever, chills, neck pain, chest pain, dyspnea, abdominal pain, vomiting. She does not smoke, use 3 L nasal cannula as needed for her COPD. She has history of IV drug abuse Past medical history: COPD, hepatitis C, hepatitis B, anxiety, depression, hypertension Past surgical history: None ROS All systems reviewed and are negative except as per history of present illness. Medications Home Meds Active Scripts Loperamide Hcl* (Imodium*) 2 Mg Capsule, 2 MG PO .AFTER EA LOOSE BM PRN for DIARRHEA, #10 TAB Prov:ADAMS MAK MD 04/30/18 Ondansetron (Ondansetron Odt) 4 Mg Tab.rapdis, 4 MG PO Q6H PRN for NAUSEA AND/OR VOMITING, #10 TAB Prov:ADAMS MAK MD 04/30/18 Methadone Hcl* (Methadone*) 5 Mg/5 Ml Solution, 68 MG PO DAILY for 30 Days, ML Prov:STU ORTEZ 04/14/18 Hydroxyzine Hcl* (Hydroxyzine Hcl*) 10 Mg Tablet, 10 MG PO TID, #20 TAB Prov:CASA RIOJAS MD 01/10/18 Sertraline Hcl* (Sertraline Hcl*) 100 Mg Tablet, 100 MG PO DAILY for 30 Days, TAB Prov:ZHANG WARE NP 02/28/16 Salmeterol Xinaf/Fluticasone* (Advair*) 250-50 Diskus Inhaler, 1 INH INHALATION BID for 30 Days, #1 INHALER Prov:ZHANG WARE NP 02/28/16 Albuterol Sulfate* (Proair HFA*) 8.5 Gm Hfa.aer.ad, 2 PUFF INH Q6 for SHORTNESS OF BREATH for 14 Days, #1 INHALER Prov:ZHANG WARE NP 02/28/16 Reported Medications Cholecalciferol (Vitamin D3) (VITAMIN D-3) 2,000 Unit Capsule, 2000 U PO DAILY for 30 Days 04/30/18 Aspirin* (Aspirin* EC) 81 Mg Tablet.dr, 81 MG PO DAILY for 30 Days, #30 04/30/18 Amlodipine Besylate* (Amlodipine Besylate*) 5 Mg Tablet, 5 MG PO DAILY for 30 Days, #30 04/30/18 Ibuprofen* (Ibuprofen*) 600 Mg Tablet, 600 MG PO Q6H PRN for PAIN AND/OR INFLAMMATION, TAB 04/30/18 Baclofen* (Baclofen*) 10 Mg Tablet, 10 MG PO BID 04/30/18 Docusate Sodium* (Docusate Sodium*) 100 Mg Capsule, 100 MG PO BID, #60 CAP 04/30/18 Calcium Carbonate ([id number]) 500 Mg Tablet, 500 MG PO BID, TAB 04/30/18 Allergies Allergies: Coded Allergies: Sulfa (Sulfonamide Antibiotics) (Unverified Allergy, Mild, 04/30/18) chlorpromazine HCl (Unverified Allergy, Unknown, 04/30/18) lorazepam (Unverified Allergy, Unknown, 04/30/18) Uncoded Allergies: tape (Allergy, Mild, rash, 02/28/16) PMhx/Soc History of Surgery: Yes (left elbow sx) Anesthesia Reaction: No Hx Neurological Disorder: Yes Hx Respiratory Disorders: Yes (copd) Hx Cardiac Disorders: No Hx Psychiatric Problems: Yes (drug use) Hx Miscellaneous Medical Probl: Yes (Hep C, heroin abuse, COPD, anxiety) Hx Alcohol Use: No (former drinker) Hx Substance Use: Yes (marijuana) Hx Tobacco Use: No Smoking Status: Former smoker Physical Exam Vitals Vital Signs Date Temp Pulse Resp B/P (MAP) Pulse Ox O2 O2 Flow FiO2 Time Delivery Rate 04/30/18 65 16 113/65 100 Nasal 2.0 02:26 (81) Cannula 04/29/18 Nasal 2.0 22:53 Cannula 04/29/18 97.6 68 20 144/75 94 21:39 (98) Physical Exam Const: No acute distress. Head: Atraumatic. Eyes: Normal Conjunctiva. ENT: Normal External Ears, Nose and Mouth. Neck: Full range of motion. No meningismus. Resp: Clear to auscultation bilaterally. Cardio: Regular rate and rhythm. Abd: Soft, non distended, normal bowel sounds, non tender. Skin: No petechiae or rashes. Back: No midline or flank tenderness. Ext: No cyanosis, or edema. Neur: Awake and alert. No focal deficit Psych: Normal Mood and Affect. Result Diagram: 04/30/187 04/30/187 Results 24 hrs Laboratory Tests Test 04/30/18 00:27 White Blood Count 9.4 10^3/ul Red Blood Count 4.78 10^6/ul Hemoglobin 14.5 g/dl Hematocrit 45.9 % Mean Corpuscular Volume 96.0 fl Mean Corpuscular Hemoglobin 30.3 pg Mean Corpuscular Hemoglobin Concent 31.6 g/dl Red Cell Distribution Width 13.2 % Platelet Count 348 10^3/UL Mean Platelet Volume 9.9 fl Immature Granulocytes % 0.300 % Neutrophils % 78.2 % Lymphocytes % 15.8 % Monocytes % 5.4 % Eosinophils % 0.0 % Basophils % 0.3 % Nucleated Red Blood Cells % 0.0 /100WBC Immature Granulocytes # 0.030 10^3/ul Neutrophils # 7.3 10^3/ul Lymphocytes # 1.5 10^3/ul Monocytes # 0.5 10^3/ul Eosinophils # 0.0 10^3/ul Basophils # 0.0 10^3/ul Nucleated Red Blood Cells # 0.0 10^3/ul Sodium Level 135 mmol/L Potassium Level 4.1 mmol/L Chloride Level 90 mmol/L Carbon Dioxide Level 32 mmol/L Anion Gap 13 Blood Urea Nitrogen 18 mg/dl Creatinine 0.72 mg/dl Est Glomerular Filtrat Rate mL/min > 60 mL/min Glucose Level 105 mg/dl Calcium Level 10.0 mg/dl Current Medications Medications Dose Sig/Hugh Start Time Status Last (Trade) Ordered Route PRN Stop Time Admin Dose Reason Admin Oxycodone/ 1 tab ONCE ONCE 04/30/18 DC 04/30/18 Acetaminophen PO 00:00 04/30/18 01:39 (Endocet 00:01 ()) Procedures/[place] [id number] Radiology Main Line: [phone] DIAGNOSTIC IMAGING REPORT Patient: IDALMIS ENNIS : 1950 Age: 68 Sex: F MR #: [id number] DOS: 04/29/18 0000 Ordering MD: ADAMS MAK MD Location: E/R Room/Bed: PROCEDURE: XR Chest. CLINICAL INDICATION: Dyspnea. TECHNIQUE: Single frontal view of the chest. COMPARISON: Plain film chest dated 04/11/2018. FINDINGS: Left central venous line is removed over interval. The cardiomediastinal silhouette is within normal limits. Atherosclerotic calcifications are again seen in the thoracic aorta. Hyperinflation of COPD, with changes centrolobular emphysema. Pleural thickening is seen at the right costophrenic angle, without significant tire changer interval. Bilateral apical bronchiectasis is again seen, without significant tire changer interval. Mild new discoid atelectasis at the left mid lung. The lungs are otherwise clear. No signs of pleural fluid or pneumothorax are seen. The osseous structures and soft tissues are unremarkable. IMPRESSION: 1. Again seen is hyperinflation of COPD and changes of centrolobular emphysema. 2. Again seen is pleural thickening at the right costophrenic angle, without significant tire changer interval. 3. Mild new discoid atelectasis at the left mid lung. 4. No significant change in bilateral apical bronchiectasis. RPTAT: [facility] Physician Lisbet Date Time Electronically viewed and signed by Physician Lisbet on 04/30/2018 01:33 RS/ CC: ADAMS MAK MD [id number] EKG: Read by emergency physician Rate/Rhythm: Normal Sinus Rhythm 62 beats/min QRS, ST, T-waves: No ST elevation, no T inversion, LAE, RSR' V1, nonspecific ST and T abnormality Impression: Abnormal EKG MEDICAL MAKING DECISION: The patient is a 68-year-old female, presenting with acute opioid withdrawal, was treated with Percocet 10 mg p.o. with good respon se, is stable for outpatient follow-up The differential diagnoses considered include but are not limited to anxiety attack, panic attack, dehydration, electrolyte imbalance Departure Diagnosis: Primary Impression: Opioid withdrawal Condition: Good Comments She was discharged with Zofran and Imodium I discussed the findings with the patient. I advised the patient to follow-up with the primary physician in about 2-3 days, sooner if needed and return if any concern. Disclaimer: Inadvertent spelling and grammatical errors are likely due to EHR/dictation software use and do not reflect on the overall quality of patient care. Also, please note that the electronic time recorded on this note does not necessarily reflect the actual time of the patient encounter. ADAMS MAK MD Apr 29, 2018 23:02
[2018-04-30] MEDS ORDERED: OXYCODONE/ACETAMINOPHEN (10/325) TAB PO ONE
[2018-04-30] MEDS ORDERED: CALC500T91 PO (01:29)
[2018-04-30] MEDS ORDERED: DOCU-159 PO (01:29)
[2018-04-30] MEDS ORDERED: BACL10TA PO (01:46)
[2018-04-30] MEDS ORDERED: IBUP-1542 PO (01:46)
[2018-04-30] MEDS ORDERED: CHOL200073 PO (01:46)
[2018-04-30] MEDS ORDERED: AMLO-145 PO (01:46)
[2018-04-30] MEDS ORDERED: ASPI-817 PO (01:46)
[2018-04-30] MEDS ORDERED: ONDA4TAB14 PO (01:51)
[2018-04-30] MEDS ORDERED: LOPE2CAP PO (01:51)
[2018-04-30 02:26] VITALS: BP 113/65; PULSE 65; RESP 16
== END 2018-04-30 02:30 | disposition home or self-care (01) ==
LOC: E/R 21:15
DX: F11.23 Opioid dependence with withdrawal (principal); J44.9 Chronic obstructive pulmonary disease, unspecified; Z87.891 Personal history of nicotine dependence; Z79.82 Long term (current) use of aspirin
CPT/HCPCS: 71045; 80048; 85025; 93005

== ENCOUNTER 2018-04-30 03:18 | Emergency (ER) | payer MEDICARE, OTHER ==
[~2018-04-30] VITALS: Ht 154.9 cm; Wt 45.5 kg
[~2018-04-30 03:18] MED LIST changes: +AMLO-145 PO; +ASPI-817 PO; +BACL10TA PO; +CALC500T91 PO; +CHOL200073 PO; +DOCU-159 PO; +IBUP-1542 PO; +LOPE2CAP PO; +ONDA4TAB14 PO
[2018-04-30 03:21] VITALS: BP 140/75; PULSE 75; RESP 22; Ht 154.9 cm; Wt 45.5 kg
== END 2018-04-30 04:02 | disposition left against medical advice (07) ==
LOC: E/R 03:18
DX: Z53.21 Procedure and treatment not carried out due to patient leaving prior to being seen by health care provider (principal)

== ENCOUNTER 2018-06-03 18:51 | Inpatient (IN) | payer MEDICARE, OTHER ==
[~2018-06-03] VITALS: Ht 154.9 cm; Wt 50.3 kg
[2018-06-03 22:18] VITALS: PULSE 85
[2018-06-03 22:30] VITALS: Ht 154.9 cm; Wt 50.3 kg
[2018-06-03 22:31] VITALS: BP 141/70; PULSE 82; RESP 18
--- NOTE | 2018-06-03 23:45 | HP ---
Date/Time of Note Date/Time of Note DATE: 06/03/18 TIME: 23:45 Assessment/Plan VTE Prophylaxis SCD applied (from Nsg): Yes Pharmacological prophylaxis: NA/contraindicated Pharm contraindication: low risk/ambulating Lines/Catheters Urinary Cath still in place: Yes Reason Cath still needed: other (indicate) (clinical conditon) Assessment/Plan Hospital Course This is a 68-year-old female being admitted to the telemetry floor for: #1 COPD exacerbation: Improving, prednisone burst, scheduled nebs, questionable infiltrate on chest x-ray at OSH, continue cefepime continue home nebs #2 non-STEMI: Echocardiogram of the transfer facility showed ejection fraction of approximately 60%. Troponins were downtrending and patient was cleared by cardiology. She was not a candidate for any anticoagulation given her underlying liver disease and risk of bleeding. currently not complaining of chest pain. #3 questionable community-acquired pneumonia: Continue cefepime repeat chest x- ray #4 history of hepatitis C: AST and ALT were significantly elevated in the 6000 range, will trend them. Patient was to follow-up outpatient for treatment of hepatitis C. Will check hepatitis panel and HCV. Will check right upper quadrant ultrasound. #5 liver disease: Suspect underlying cirrhosis given hepatitis C we will check a right upper quadrant ultrasound. Check PTT INR, ammonia level #6 thrombocytopenia: Suspect secondary to underlying liver disease: We will check right upper quadrant ultrasound. Monitor for signs. #7 Acute kidney injury: Monitor renal function, avoid nephrotoxic agents. IV fluid hydration #8 history of heroin abuse: Patient is currently on methadone. Given the p atient was noted to be lethargic on my examination, will hold off on initiating any further metastases toward the current time. Consider pain management consultation. #9 CODE STATUS: DNR/DNI is verbalized to me by the patient as well as noted from the transfer documentation. DVT GI prophylaxis: SCDs, Protonix Further treatment strategy will be implemented as per the clinical course HPI/ROS Admit Date/Time Admit Date/Time Jun 03, 2018 at 22:06 Hx of Present Illness Chief complaint: Shortness of breath This is a 68-year-old female with history of COPD, hepatitis C, chronic kidney disease and history of substance abuse currently on methadone who presented to [facility] with shortness of breath secondary to COPD. Patient was diagnosed with acute on chronic hypercapnic hypoxic respiratory failure. She reported that she was started week. Upon presentation there she had a white blood cell count of 15.7, hemoglobin of 11 and INR 2.5 she also had an elevated potassium of 6.3 and 2.4 AST and ALT were elevated 6090 and 6677 and 9 she was t reated for COPD exacerbation with Solu-Medrol nebulizers along with antibiotics of Rocephin and Zithromax. She was also found to have non Stemi segment elevation LA which was thought to be secondary to demand ischemia. Cardiology was consulted. Troponins were downtrending and patient was not put on any anticoagulation given her elevated INR as well as liver disease patient also seen by infectious disease and there was concern for possible pneumonia for which patient was started on cefepime for possible pneumonia next CT of the chest without contrast showed: Chronic appearing postinflammatory change of the lungs particularly the right upper lobe, superimposed over central lobar emphysema, enlarged pulmonary arteries consistent with pulmonary artery hypertension Chest x-ray showed: Scar like change in the right upper lobe suggesting possible prior tuberculosis no evidence of acute process ultrasound of the abdomen showed: Nodular surface of the liver, thick-walled gallbladder without gallstones Echocardiogram showed: Ejection fraction of approximately 63% pulmonary systolic pressure 61 Allergies: 1. SULFA. 2. CHLORPROMAZINE 3. LORAZEPAM. Medications: See LINDA JETER Const: As per HPI Eyes : No pain discharge or redness or change in visual acuity ENT: No pain, sore throat, congestion, congestion, dysphagia or discharge Respiratory: As per HPI Cardiovascular: No chest pain, palpitation, PND, or edema GI : no change in appetite, abdominal pain, nausea, vomiting, diarrhea, constipation, or change in the color his stool Genitourinary: No dysuria, hematuria, flank pain , discharge or CVA tenderness Musculoskeletal: No joint pain, back pain, neck pain, restricted range of motion in neck or joints Skin: No rash, bruising or hives Neuro: No headache, dizziness, syncope, seizure, focal weakness Endocrine: No polyuria, polydipsia, temperature intolerance Psych: No hallucination, depression, anxiety or suicidal ideation PMH/Family/Social Past Medical History COPD. Hepatitis C. Anxiety. History of heroin abuse currently on methadone Coded Allergies: Sulfa (Sulfonamide Antibiotics) (Unverified Allergy, Mild, 04/30/18) chlorpromazine HCl (Unverified Allergy, Unknown, 04/30/18) lorazepam (Unverified Allergy, Unknown, 04/30/18) Uncoded Allergies: tape (Allergy, Mild, rash, 02/28/16) Past Surgical History Unknown Past Surgical Hx: other Family History Significant Family History: other (Unknown) Social History History of meth abuse Smoking Status: Former smoker Exam/Review of Systems Vital Signs Vitals Vital Signs Date Temp Pulse Resp B/P (MAP) Pulse Ox O2 O2 Flow FiO2 Time Delivery Rate 06/03/18 98.8 82 18 141/70 98 Nasal 3.0 22:31 (93) Cannula Exam Exam General: She is currently lying in bed she does appear lethargic, but she does not appear to be in any acute distress HEENT: Atraumatic, normocephalic. The pupils are equal, round and reactive. Extraocular motor are intact Neck: Supple with full range of motion. No rigidity or meningismus Chest: Nontender Lungs: Mild expiratory wheezing, nonlabored breathing Heart: Normal S1-S2, Regular rhythm and rate. No murmur, S3, or S4 Abdomen: Soft , nontender, nondistended , bowel sounds are present. No guarding no rebound tenderness , No masses or organomegaly. No costovertebral temporal angle mass Extremities: Normal to inspection, no edema no cyanosis Neurologic: Awake and alert,, but she does appear to be lethargic and tired. Psych: Patient was noted to be agitated earlier by the RN but she calmed down after getting Haldol LEOBARDO DC Jun 03, 2018 23:45
[2018-06-03] MEDS ORDERED: morphine 2 MG INJ IV STA (23:46)
[2018-06-04] VITALS (9 sets, daily range): BP systolic 106–137; BP diastolic 63–72; PULSE 63–80; RESP 14–19
[2018-06-04] MEDS ORDERED: ONDANSETRON 4 MG INJ IV PRN
[2018-06-04] MEDS ORDERED: LORAZEPAM 2 MG INJ IV PRN
[2018-06-04] MEDS ORDERED: NACL 0.9% 3 ML SYG IV SCH
[2018-06-04] MEDS ORDERED: BISACODYL (EC) 5 MG TAB PO PRN
[2018-06-04] MEDS ORDERED: DOCUSATE SODIUM 100 MG CAP PO PRN
[2018-06-04] MEDS ORDERED: METHADONE (1 MG/ML 5 ML PO UD SYG) PO SCH (00:30)
[2018-06-04] MEDS: predniSONE 20 MG TAB PO SCH ×2 (00:47→08:35)
[2018-06-04] MEDS: BACLOFEN 10 MG TAB PO SCH ×3 (00:47→21:40)
[2018-06-04] MEDS ORDERED: HALOPERIDOL 5 MG INJ IM ONE ×2 (01:30→03:00)
[2018-06-04] MEDS: LEVALBUTEROL (NEB) 1.25 MG/0.5 ML AMP HHN SCH ×7 (02:16→21:47)
[2018-06-04] MEDS: IPRATROPIUM (NEB) 0.5 MG/2.5 ML AMP HHN SCH ×6 (02:16→21:46)
[2018-06-04] MEDS ORDERED: PENDING SANTYL ORDER FOR WOUND CARE XX PRN (03:00)
[2018-06-04] MEDS ORDERED: DIPHENHYDRAMINE 50 MG INJ IM ONE (03:00)
[2018-06-04] MEDS: PANTOPRAZOLE (EC) 40 MG TAB PO SCH (05:58)
[2018-06-04] MEDS: DOCUSATE SODIUM 100 MG CAP PO SCH ×2 (08:35→21:39)
[2018-06-04] MEDS: AMLODIPINE 5 MG TAB PO SCH (08:35)
[2018-06-04] MEDS: hydrOXYzine HCL 10 MG TAB PO SCH ×3 (08:36→21:40)
[2018-06-04] MEDS ORDERED: ASPIRIN (EC) 81 MG TAB PO SCH (09:00)
[2018-06-04] MEDS: SERTRALINE 100 MG TAB PO SCH (09:57)
[2018-06-04] MEDS: CEFEPIME 1GM/50 ML (PMX) 50 ML IVPB SCH ×2 (09:58→21:40)
[2018-06-04] MEDS: FLUTICASONE/VILANTEROL 100-25 INH SCH (09:58)
--- NOTE | 2018-06-04 11:00 | PN ---
Date/Time of Note Date/Time of Note DATE: 06/04/18 TIME: 10:59 Assessment/Plan VTE Prophylaxis Risk score (from Ns)>0 risk: 8 SCD applied (from Ns): No SCD contraindicated: other Pharmacological prophylaxis: NA/contraindicated Pharm contraindication: liver dx Lines/Catheters IV C[facility]ter Type [facility]from [facility] Saline Lock Urinary Cath still in place: Yes Reason Cath still needed: other (indicate) Assessment/Plan Hospital Course SUBJECTIVE: Denies any dyspnea at this time. OBJECTIVE: Physical Exam General: Frail looking, 68 year-old female lying in bed in no apparent distress. HEENT: Normocephalic, atraumatic. Eyes: Anicteric sclerae, conjunctivae clear. ENT: Nasal septum midline, oral mucosa moist. Neck supple, no JVD noticed. Respiratory: Bilaterally diminished breath sounds. No use of accessory muscles of respiration. B/L rales. Cardiovascular: S1, S2 heard. Regular rate and rhythm. Abdomen: Soft, nontender, and nondistended. Bowel sounds positive in all 4 quadrants. Genitourinary: Deferred. Extremities: No cyanosis, no edema. Peripheral pulses palpable. Neurologic: Somnolent. Wakes up to call and answers questions. Skin: Normal skin turgor. No skin rashes. Labs & Vitals per chart ASSESSMENT & PLAN This is a 68-year-old female with past medical history of COPD, chronic respiratory failure dependent on home oxygen, hypertension, pulmonary hypertension, chronic kidney disease, alcohol abuse, and a remote history of heroin abuse currently on methadone. The patient went to the local hospital on June 02, 2018 because of shortness of breath. The patient was noted to be in significant respiratory failure that necessitated admission to [facility] including ICU stay and noninvasive positive pressure ventilation. The patient also had underlying coagulopathy with an INR of 2.5. The patient also had a WBC of 15.7. The patient was empirically treated for any underlying infectious process. Infectious diseases was involved in the patient's care. The patient also had NSTEMI. The patient was evaluated by cardiology at the transferring facility with the 2D echocardiogram showing preserved left ventricular ejection fraction, but evidence of underlying pulmonary hypertension. The patient was gradually moved out of the intensive care unit once the patient was stable. The patient was transferred to [facility] on 06/03/2018 for further management and evaluation because of insurance reasons. 1. COPD exacerbation. -Continue bronchodilators IZAIAH and LABA. -Continue tapering dose of steroids. 2. Acute on chronic respiratory failure -Hypoxic and hypercapnic -Status post noninvasive positive pressure ventilation at the transferring facility. -Currently stable. 3. Possible underlying acute bronchitis -On empiric cefepime as per ID from the transferring facility. 4. NSTEMI. -Preserved left ventricular ejection fraction -Status post cardiology evaluation at the transferring facility. -Most probably secondary to demand ischemia. -Continue ASA. 5. Essential hypertension -Continue antihypertensives. 6. Pulmonary hypertension. -Most probably secondary to chronic hypoxia. -Continue supplemental oxygen. 7. Transaminitis without hyperbilirubinemia -Known history of hepatitis C and alcoholic liver cirrhosis. -Obtain gastroenterology consult. -Avoid hepatotoxic medications. -Trend LFTs. 8. History of heroin abuse. -Currently on methadone. 9. Coagulopathy. -Most probably secondary to underlying liver cirrhosis. -Monitor for bleeding. 10. Microcytic anemia -Most probably secondary to underlying alcohol abuse. -Monitor H&H closely. 11. Dysphagia. -Aspiration precautions. -ST evaluation. 12. DVT prophylaxis -Bilateral SCDs. 13. Plan. -Continue antimicrobials. -Continue tapering dose of steroids -Obtain gastroenterology consult. -Obtain cardiology consult. The patient was seen in collaboration with Dr. Finley. Result Diagram: 06/04/18 0550 06/04/18 0550 Results 24hrs Laboratory Tests Test 06/04/18 05:50 06/04/18 10:06 White Blood Count 11.4 #H Red Blood Count 3.54 #L Hemoglobin 11.2 #L Hematocrit 36.2 #L Mean Corpuscular Volume 102.3 H Mean Corpuscular Hemoglobin 31.6 Mean Corpuscular Hemoglobin Concent 30.9 L Red Cell Distribution Width 17.2 #H Platelet Count 80 #L Mean Platelet Volume 12.2 #H Immature Granulocytes % 0.500 H Neutrophils % Segmented Neutrophils % (Manual) 96 H Band Neutrophils % (Manual) 2 Lymphocytes % Lymphocytes % (Manual) 1 L Monocytes % Eosinophils % Basophils % Metamyelocytes % (manual) 1 H Nucleated Red Blood Cells % 2 H Immature Granulocytes # 0.060 H Neutrophils # Neutrophils # (Manual) 11.0 H Band Neutrophils # 0.2 Lymphocytes (Manual) 0.1 L Lymphocytes # Monocytes # Eosinophils # Basophils # Metamyelocytes # 0.1 H Nucleated Red Blood Cells # Platelet Estimate DECREASED Polychromasia 2+ Hypochromasia 1+ Poikilocytosis 2+ Anisocytosis 1+ Macrocytosis 1+ Target Cells 1+ Ovalocytes 2+ Sodium Level 141 Potassium Level 4.2 Chloride Level 103 Carbon Dioxide Level 30 Anion Gap 8 Blood Urea Nitrogen 52 H Creatinine 1.22 H Est Glomerular Filtrat Rate mL/min 44 L Glucose Level 122 Calcium Level 7.8 L Total Bilirubin 0.8 Direct Bilirubin 0.00 Indirect Bilirubin 0.8 Aspartate Amino Transf (AST/SGOT) 2259 H Alanine Aminotransferase (ALT/SGPT) 4549 H Alkaline Phosphatase 82 Total Protein 5.9 L Albumin 3.3 Globulin 2.60 Albumin/Globulin Ratio 1.26 Prothrombin Time 19.8 H Prothrombin Time Ratio 1.5 INR International Normalized Ratio 1.67 Activated Partial Thromboplast Time 27.3 Ammonia < 9 L Hepatitis B Surface Antigen Pending Hepatitis B Core Total Antibody Pending Hepatitis C Antibody Pending Exam/Review of Systems Exam Vitals Vital Signs Date Temp Pulse Resp B/P (MAP) Pulse Ox O2 O2 Flow FiO2 Time Delivery Rate 06/04/18 71 18 94 Nasal 2.0 09:10 Cannula 06/04/18 98.4 119/70 07:49 (86) Intake and Output 06/03/18 06/03/18 06/04/18 1515:00 23:00 07:00 IntakeIntake Total 350 ml OutputOutput Total 800 ml BalanceBalance -450 ml Results Results 24hrs Laboratory Tests Test 06/04/18 05:50 06/04/18 10:06 White Blood Count 11.4 #H Red Blood Count 3.54 #L Hemoglobin 11.2 #L Hematocrit 36.2 #L Mean Corpuscular Volume 102.3 H Mean Corpuscular Hemoglobin 31.6 Mean Corpuscular Hemoglobin Concent 30.9 L Red Cell Distribution Width 17.2 #H Platelet Count 80 #L Mean Platelet Volume 12.2 #H Immature Granulocytes % 0.500 H Neutrophils % Segmented Neutrophils % (Manual) 96 H Band Neutrophils % (Manual) 2 Lymphocytes % Lymphocytes % (Manual) 1 L Monocytes % Eosinophils % Basophils % Metamyelocytes % (manual) 1 H Nucleated Red Blood Cells % 2 H Immature Granulocytes # 0.060 H Neutrophils # Neutrophils # (Manual) 11.0 H Band Neutrophils # 0.2 Lymphocytes (Manual) 0.1 L Lymphocytes # Monocytes # Eosinophils # Basophils # Metamyelocytes # 0.1 H Nucleated Red Blood Cells # Platelet Estimate DECREASED Polychromasia 2+ Hypochromasia 1+ Poikilocytosis 2+ Anisocytosis 1+ Macrocytosis 1+ Target Cells 1+ Ovalocytes 2+ Sodium Level 141 Potassium Level 4.2 Chloride Level 103 Carbon Dioxide Level 30 Anion Gap 8 Blood Urea Nitrogen 52 H Creatinine 1.22 H Est Glomerular Filtrat Rate mL/min 44 L Glucose Level 122 Calcium Level 7.8 L Total Bilirubin 0.8 Direct Bilirubin 0.00 Indirect Bilirubin 0.8 Aspartate Amino Transf (AST/SGOT) 2259 H Alanine Aminotransferase (ALT/SGPT) 4549 H Alkaline Phosphatase 82 Total Protein 5.9 L Albumin 3.3 Globulin 2.60 Albumin/Globulin Ratio 1.26 Prothrombin Time 19.8 H Prothrombin Time Ratio 1.5 INR International Normalized Ratio 1.67 Activated Partial Thromboplast Time 27.3 Ammonia < 9 L Hepatitis B Surface Antigen Pending Hepatitis B Core Total Antibody Pending Hepatitis C Antibody Pending Medications Medication Current Medications IV Flush (NS 3 ml) 3 ml PER PROTOCOL IV ; Start 06/04/18 at 00:00 Ondansetron HCl (Zofran Inj) 4 mg Q6H PRN IV NAUSEA/VOMITING; Start 06/04/18 at 00:00 Acetaminophen (Tylenol Tab) 650 mg Q6H PRN PO .PAIN 1-3 OR TEMP; Start 06/04/18 at 00:00 Docusate Sodium (Colace) 100 mg Q12H PRN PO .CONSTIPATION; Start 06/04/18 at 00:00 Bisacodyl (Dulcolax) 5 mg DAILY PRN PO .CONSTIPATION; Start 06/04/18 at 00:00 Pantoprazole (Protonix Tab) 40 mg DAILY@06 PO Last administered on 06/04/18at 05:58; Admin Dose 40 MG; Start 06/04/18 at 06:00 Levalbuterol (Xopenex Neb) 1.25 mg Q4H RESP THERAPY HHN Last administered on 06/04/18at 09:02; Admin Dose 1.25 MG; Start 06/04/18 at 00:00 Ipratropium [place] (Atrovent 0.02% (Neb)) 0.5 mg Q4H RESP THERAPY HHN Last administered on 06/04/18 09:02; Admin Dose 0.5 MG; Start 06/04/18 at 01:00 Prednisone (Prednisone) 40 mg DAILY PO Last administered on 06/04/18 08:35; Admin Dose 40 MG; Start 06/04/18 at 00:00; Stop 06/08/18 at 23:59 Amlodipine Besylate (Norvasc) 5 mg DAILY PO Last administered on 06/04/18 08:35; Admin Dose 5 MG; Start 06/04/18 at 09:00 Aspirin (Halfprin) 81 mg DAILY PO Last administered on 06/04/18 08:36; Admin Dose 81 MG; Start 06/04/18 at 09:00 Baclofen (Lioresal) 10 mg BID PO Last administered on 06/04/18 08:35; Admin Dose 10 MG; Start 06/04/18 at 00:30 Docusate Sodium (Colace) 100 mg BID PO Last administered on 06/04/18 08:35; Admin Dose 100 MG; Start 06/04/18 at 09:00 Hydroxyzine HCl (Atarax) 10 mg TID PO Last administered on 06/04/18 08:36; Admin Dose 10 MG; Start 06/04/18 at 09:00 Methadone HCl (Methadone Liq) 68 mg DAILY PO ; Start 06/04/18 at 00:30; Status UNV Fluticasone/ Vilanterol (Breo Ellipta 100-25 Mcg Inh) 1 inh DAILY INH Last administered on 06/04/18 09:58; Admin Dose 1 INH; Start 06/04/18 at 09:00 [facility] This patient savage... PRN PRN XX WOUND CARE; Start 06/04/18 at 03:00 Cefepime HCl 50 ml @ 100 mls/hr Q12 IVPB Last administered on 06/04/18 09:58; Admin Dose 100 MLS/HR; Start 06/04/18 at 09:30 Sertraline HCl (Zoloft) 100 mg DAILY PO Last administered on 06/04/18 09:57; Admin Dose 100 MG; Start 06/04/18 at 10:00 ZHANG WARE NP Jun 04, 2018 11:00
--- NOTE | 2018-06-04 11:39 | CONS ---
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 Campos Consultation Date/Type/Reason Admit Date/Time Jun 03, 2018 at 22:06 Date of Consultation: Jun 04, 2018 Type of Consult GI Reason for Consultation Transaminitis Date/Time of Note DATE: 06/04/18 TIME: 11:26 Hx of Present Illness This is a 68-year-old female who was transferred from [facility] where she was being treated for respiratory distress and NSTEMI. Patient was noted to have very high LFTs -likely due to ischemia. Patient has a history of untreated hepatitis C and methadone use. Other medical history includes COPD, hypertension, pulmonary hypertension, chronic kidney disease, alcohol abuse, and heroin abuse -currently on methadone. 3 of EGD or colonoscopy. 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 Patient refused abdominal ultrasound. Patient appears lethargic and encephalopathic. She denies abdominal pain, nausea, vomiting, hematemesis, hematochezia or melena. We will start lactulose and rifaximin. Continue observation. Gastrointestinal: no complaints (See HPI) Past Medical History COPD, hypertension, pulmonary hypertension, chronic kidney disease, alcohol abuse, heroin abuse, liver cirrhosis Home Meds Active Scripts Loperamide Hcl* (Imodium*) 2 Mg Capsule, 2 MG PO .AFTER EA LOOSE BM PRN for DIARRHEA, #10 TAB Prov:ADAMS MAK MD 04/30/18 Ondansetron (Ondansetron Odt) 4 Mg Tab.rapdis, 4 MG PO Q6H PRN for NAUSEA AND/OR VOMITING, #10 TAB Prov:ADAMS MAK MD 04/30/18 Methadone Hcl* (Methadone*) 5 Mg/5 Ml Solution, 68 MG PO DAILY for 30 Days, ML Prov:STU ORTEZ 04/14/18 Hydroxyzine Hcl* (Hydroxyzine Hcl*) 10 Mg Tablet, 10 MG PO TID, #20 TAB Prov:CASA RIOJAS MD 01/10/18 Sertraline Hcl* (Sertraline Hcl*) 100 Mg Tablet, 100 MG PO DAILY for 30 Days, TAB Prov:ZHANG WARE NP 02/28/16 Salmeterol Xinaf/Fluticasone* (Advair*) 250-50 Diskus Inhaler, 1 INH INHALATION BID for 30 Days, #1 INHALER Prov:ZHANG WARE NP 02/28/16 Albuterol Sulfate* (Proair HFA*) 8.5 Gm Hfa.aer.ad, 2 PUFF INH Q6 for SHORTNESS OF BREATH for 14 Days, #1 INHALER Prov:ZHANG WARE NP 02/28/16 Reported Medications Cholecalciferol (Vitamin D3) (VITAMIN D-3) 2,000 Unit Capsule, 2000 U PO DAILY for 30 Days 04/30/18 Aspirin* (Aspirin* EC) 81 Mg Tablet.dr, 81 MG PO DAILY for 30 Days, #30 04/30/18 Amlodipine Besylate* (Amlodipine Besylate*) 5 Mg Tablet, 5 MG PO DAILY for 30 Days, #30 04/30/18 Ibuprofen* (Ibuprofen*) 600 Mg Tablet, 600 MG PO Q6H PRN for PAIN AND/OR INFLAMMATION, TAB 04/30/18 Baclofen* (Baclofen*) 10 Mg Tablet, 10 MG PO BID 04/30/18 Docusate Sodium* (Docusate Sodium*) 100 Mg Capsule, 100 MG PO BID, #60 CAP 04/30/18 Calcium Carbonate ([id number]) 500 Mg Tablet, 500 MG PO BID, TAB 04/30/18 Medications Current Medications IV Flush (NS 3 ml) 3 ml PER PROTOCOL IV ; Start 06/04/18 at 00:00 Ondansetron HCl (Zofran Inj) 4 mg Q6H PRN IV NAUSEA/VOMITING; Start 06/04/18 at 00:00 Acetaminophen (Tylenol Tab) 650 mg Q6H PRN PO .PAIN 1-3 OR TEMP; Start 06/04/18 at 00:00 Docusate Sodium (Colace) 100 mg Q12H PRN PO .CONSTIPATION; Start 06/04/18 at 00:00 Bisacodyl (Dulcolax) 5 mg DAILY PRN PO .CONSTIPATION; Start 06/04/18 at 00:00 Pantoprazole (Protonix Tab) 40 mg DAILY@06 PO Last administered on 06/04/18 05:58; Admin Dose 40 MG; Start 06/04/18 at 06:00 Levalbuterol (Xopenex Neb) 1.25 mg Q4H RESP THERAPY HHN Last administered on 06/04/18 09:02; Admin Dose 1.25 MG; Start 06/04/18 at 00:00 Ipratropium [place] (Atrovent 0.02% (Neb)) 0.5 mg Q4H RESP THERAPY HHN Last administered on 06/04/18 09:02; Admin Dose 0.5 MG; Start 06/04/18 at 01:00 Prednisone (Prednisone) 40 mg DAILY PO Last administered on 06/04/18 08:35; Admin Dose 40 MG; Start 06/04/18 at 00:00; Stop 06/08/18 at 23:59 Amlodipine Besylate (Norvasc) 5 mg DAILY PO Last administered on 06/04/18 08:35; Admin Dose 5 MG; Start 06/04/18 at 09:00 Aspirin (Halfprin) 81 mg DAILY PO Last administered on 06/04/18 08:36; Admin Dose 81 MG; Start 06/04/18 at 09:00; Status Hold Baclofen (Lioresal) 10 mg BID PO Last administered on 06/04/18 08:35; Admin Dose 10 MG; Start 06/04/18 at 00:30 Docusate Sodium (Colace) 100 mg BID PO Last administered on 06/04/18 08:35; Admin Dose 100 MG; Start 06/04/18 at 09:00 Hydroxyzine HCl (Atarax) 10 mg TID PO Last administered on 06/04/18 08:36; Admin Dose 10 MG; Start 06/04/18 at 09:00 Methadone HCl (Methadone Liq) 68 mg DAILY PO ; Start 06/04/18 at 00:30; Status UNV Fluticasone/ Vilanterol (Breo Ellipta 100-25 Mcg Inh) 1 inh DAILY INH Last administered on 06/04/18 09:58; Admin Dose 1 INH; Start 06/04/18 at 09:00 Miscellaneous Information (Pending Santyl Order For Wound Care) This patient savage... PRN PRN XX WOUND CARE; Start 06/04/18 at 03:00 Cefepime HCl 50 ml @ 100 mls/hr Q12 IVPB Last administered on 06/04/18at 09:58; Admin Dose 100 MLS/HR; Start 06/04/18 at 09:30 Sertraline HCl (Zoloft) 100 mg DAILY PO Last administered on 06/04/18at 09:57; Admin Dose 100 MG; Start 06/04/18 at 10:00 Allergies: Coded Allergies: Sulfa (Sulfonamide Antibiotics) (Unverified Allergy, Mild, 04/30/18) chlorpromazine HCl (Unverified Allergy, Unknown, 04/30/18) lorazepam (Unverified Allergy, Unknown, 04/30/18) Uncoded Allergies: tape (Allergy, Mild, rash, 02/28/16) Past Surgical History Past Surgical Hx: other Social History Smoking Status: Former smoker Exam/Review of Systems Exam Vitals Vital Signs Date Temp Pulse Resp B/P (MAP) Pulse Ox O2 O2 Flow FiO2 Time Delivery Rate 06/04/18 71 18 94 Nasal 2.0 09:10 Cannula 06/04/18 98.4 119/70 07:49 (86) Intake and Output 06/03/18 06/03/18 06/04/18 1515:00 23:00 07:00 IntakeIntake Total 350 ml OutputOutput Total 800 ml BalanceBalance -450 ml Exam PHYSICAL EXAMINATION: GENERAL: Cachectic, lethargic, in no acute distress SKIN: No lesions, no stigmata chronic liver disease, no evidence of bleeding diathesis LYMPHATIC: No palpable lymphadenopathy. HEAD: Normocephalic, atraumatic, no tenderness. EYES: Pupils equal reactive to light and accommodation, full extraocular movements, sclera clear, non-icteric, no discharge. EARS/NOSE AND THROAT: Ears normal, nose normal, oropharynx normal, oral membranes well hydrated without lesions. NECK: Supple, no masses, thyroid normal, JVP within normal limits, carotids normal without bruits. CHEST: Inspection within normal limits. CARDIOVASCULAR: Heart: Regular rate and rhythm, no murmurs, gallops or rubs. Peripheral pulses present within normal limits, no cyanosis, clubbing or edemas. No pulsatile abdominal mass RESPIRATORY: Lungs clear to auscultation and percussion, no wheezing, no rubs GASTROINTESTINAL AND LIVER: Abdomen: Soft, non tenderness, non-distended, no hernias, no masses, no organomegaly, no ascites, no guarding, no rebound tenderness, normoactive bowel sounds. Rectal: Deferred. GENITOURINARY: Female genitalia within normal limits. EXTREMITIES: No cyanosis, clubbing or edema. Results Result Diagram: 06/04/18 0550 06/04/18 0550 Results 24hrs Laboratory Tests Test 06/04/18 05:50 06/04/18 10:05 06/04/18 10:06 White Blood Count 11.4 #H Red Blood Count 3.54 #L Hemoglobin 11.2 #L Hematocrit 36.2 #L Mean Corpuscular Volume 102.3 H Mean Corpuscular Hemoglobin 31.6 Mean Corpuscular Hemoglobin Concent 30.9 L Red Cell Distribution Width 17.2 #H Platelet Count 80 #L Mean Platelet Volume 12.2 #H Immature Granulocytes % 0.500 H Neutrophils % Segmented Neutrophils % (Manual) 96 H Band Neutrophils % (Manual) 2 Lymphocytes % Lymphocytes % (Manual) 1 L Monocytes % Eosinophils % Basophils % Metamyelocytes % (manual) 1 H Nucleated Red Blood Cells % 2 H Immature Granulocytes # 0.060 H Neutrophils # Neutrophils # (Manual) 11.0 H Band Neutrophils # 0.2 Lymphocytes (Manual) 0.1 L Lymphocytes # Monocytes # Eosinophils # Basophils # Metamyelocytes # 0.1 H Nucleated Red Blood Cells # Platelet Estimate DECREASED Polychromasia 2+ Hypochromasia 1+ Poikilocytosis 2+ Anisocytosis 1+ Macrocytosis 1+ Target Cells 1+ Ovalocytes 2+ Sodium Level 141 Potassium Level 4.2 Chloride Level 103 Carbon Dioxide Level 30 Anion Gap 8 Blood Urea Nitrogen 52 H Creatinine 1.22 H Est Glomerular Filtrat Rate mL/min 44 L Glucose Level 122 Calcium Level 7.8 L Total Bilirubin 0.8 Direct Bilirubin 0.00 Indirect Bilirubin 0.8 Aspartate Amino Transf (AST/SGOT) 2259 H Alanine Aminotransferase (ALT/SGPT) 4549 H Alkaline Phosphatase 82 Total Protein 5.9 L Albumin 3.3 Globulin 2.60 Albumin/Globulin Ratio 1.26 Creatine Kinase 85 Creatine Kinase Index Pending Creatinine Kinase MB (Mass) Pending Troponin I Pending Prothrombin Time 19.8 H Prothrombin Time Ratio 1.5 INR International Normalized Ratio 1.67 Activated Partial Thromboplast Time 27.3 Ammonia < 9 L Hepatitis B Surface Antigen Pending Hepatitis B Core Total Antibody Pending Hepatitis C Antibody Pending Medications Medication Current Medications IV Flush (NS 3 ml) 3 ml PER PROTOCOL IV ; Start 06/04/18 at 00:00 Ondansetron HCl (Zofran Inj) 4 mg Q6H PRN IV NAUSEA/VOMITING; Start 06/04/18 at 00:00 Acetaminophen (Tylenol Tab) 650 mg Q6H PRN PO .PAIN 1-3 OR TEMP; Start 06/04/18 at 00:00 Docusate Sodium (Colace) 100 mg Q12H PRN PO .CONSTIPATION; Start 06/04/18 at 00 :00 Bisacodyl (Dulcolax) 5 mg DAILY PRN PO .CONSTIPATION; Start 06/04/18 at 00:00 Pantoprazole (Protonix Tab) 40 mg DAILY@06 PO Last administered on 06/04/18at 05:58; Admin Dose 40 MG; Start 06/04/18 at 06:00 Levalbuterol (Xopenex Neb) 1.25 mg Q4H RESP THERAPY HHN Last administered on 06/04/18 09:02; Admin Dose 1.25 MG; Start 06/04/18 at 00:00 Ipratropium [place] (Atrovent 0.02% (Neb)) 0.5 mg Q4H RESP THERAPY HHN Last administered on 06/04/18at 09:02; Admin Dose 0.5 MG; Start 06/04/18 at 01:00 Prednisone (Prednisone) 40 mg DAILY PO Last administered on 06/04/18 08:35; Admin Dose 40 MG; Start 06/04/18 at 00:00; Stop 06/08/18 at 23:59 Amlodipine Besylate (Norvasc) 5 mg DAILY PO Last administered on 06/04/18 08:35; Admin Dose 5 MG; Start 06/04/18 at 09:00 Aspirin (Halfprin) 81 mg DAILY PO Last administered on 06/04/18 08:36; Admin Dose 81 MG; Start 06/04/18 at 09:00; Status Hold Baclofen (Lioresal) 10 mg BID PO Last administered on 06/04/18 08:35; Admin Dose 10 MG; Start 06/04/18 at 00:30 Docusate Sodium (Colace) 100 mg BID PO Last administered on 06/04/18 08:35; Admin Dose 100 MG; Start 06/04/18 at 09:00 Hydroxyzine HCl (Atarax) 10 mg TID PO Last administered on 06/04/18at 08:36; Admin Dose 10 MG; Start 06/04/18 at 09:00 Methadone HCl (Methadone Liq) 68 mg DAILY PO ; Start 06/04/18 at 00:30; Status UNV Fluticasone/ Vilanterol (Breo Ellipta 100-25 Mcg Inh) 1 inh DAILY INH Last administered on 06/04/18 09:58; Admin Dose 1 INH; Start 06/04/18 at 09:00 Miscellaneous Information (Pending [facility] Order For Wound Care) This patient savage... PRN PRN XX WOUND CARE; Start 06/04/18 at 03:00 Cefepime HCl 50 ml @ 100 mls/hr Q12 IVPB Last administered on 06/04/18at 09:58; Admin Dose 100 MLS/HR; Start 06/04/18 at 09:30 Sertraline HCl (Zoloft) 100 mg DAILY PO Last administered on 06/04/18 09:57; Admin Dose 100 MG; Start 06/04/18 at 10:00 KRIS BAKER NP Jun 04, 2018 11:36
[2018-06-04] MEDS: RIFAXIMIN 550 MG TAB PO SCH ×2 (12:19→21:40)
[2018-06-04] MEDS ORDERED: PHYTONADIONE 10 MG in DEXTROSE 5% 50 ML IVPB ONE (13:00)
[2018-06-04] MEDS: LACTULOSE 30ML CUP PO SCH ×2 (13:37→21:40)
--- NOTE | 2018-06-04 15:40 | CONS ---
Assessment/Plan Assessment/Plan Hospital Course (Demo Recall) NSTEMI: trop 2 at [facility]. Downtrended. EF preserved. No symptoms. Not an interventional candidate with her comorbidities, thrombocytopenia, coagulapathy, noncompliance Acute renal failure: Cr 2.4 with hyperkalemia on admission. Improved Acute liver failure: AST/ALT 6000s, Remain very high but improved Acute on chronic respiratory failure: due to COPD, resolved Acute on chronic COPD exacerbation Pulm HTN: PAP 60s Hep C and alcohol cirrhosis coagulopathy/thrombocytopenia heroin use -ASA with holding parameters -no statin with transaminitis -no BB for now with severe COPD -amlodipine 5mg Consultation Date/Type/Reason Admit Date/Time Jun 03, 2018 at 22:06 Date of Consultation: Jun 04, 2018 Type of Consult Cardiology Reason for Consultation NSTEMI Requesting Provider: ZHANG WARE NP Date/Time of Note DATE: 06/04/18 TIME: 15:32 Hx of Present Illness 68 yo F with a h/o hep C and alcohol cirrhosis, severe COPD, coagulopathy/thrombocytopenia. heroin use, admitted to [facility] for respiratory failure and was treated for COPD exacerbation. SHe was noted to have liver failure with ALT/AST in the 6000s, renal failure with Cr 2.4 and hyperkalemia, NSTEMI with trop 2. Echo showed an EF of 60%, mod TR, PAP 60s. She was treated medically and eventually transferred here. She denies chest pain or prior cardiac history. She is somnolent as she received haldol and morphine overnight. Trop 0.4, Cr 1.2, ALT/AST 4500/2000s now. limited as pt somnolent Past Medical History per hPI Home Meds Active Scripts Loperamide Hcl* (Imodium*) 2 Mg Capsule, 2 MG PO .AFTER EA LOOSE BM PRN for DIARRHEA, #10 TAB Prov:ADAMS MAK MD 04/30/18 Ondansetron (Ondansetron Odt) 4 Mg Tab.rapdis, 4 MG PO Q6H PRN for NAUSEA AND/OR VOMITING, #10 TAB Prov:ADAMS MAK MD 04/30/18 Methadone Hcl* (Methadone*) 5 Mg/5 Ml Solution, 68 MG PO DAILY for 30 Days, ML Prov:STU ORTEZ 04/14/18 Hydroxyzine Hcl* (Hydroxyzine Hcl*) 10 Mg Tablet, 10 MG PO TID, #20 TAB Prov:CASA RIOJAS MD 01/10/18 Sertraline Hcl* (Sertraline Hcl*) 100 Mg Tablet, 100 MG PO DAILY for 30 Days, TAB Prov:ZHANG WARE NP 02/28/16 Salmeterol Xinaf/Fluticasone* (Advair*) 250-50 Diskus Inhaler, 1 INH INHALATION BID for 30 Days, #1 INHALER Prov:ZHANG WARE BOND BROKER 02/28/16 Albuterol Sulfate* (Proair HFA*) 8.5 Gm Hfa.aer.ad, 2 PUFF INH Q6 for SHORTNESS OF BREATH for 14 Days, #1 INHALER Prov:ZHANG WARE BOND BROKER 02/28/16 Reported Medications Cholecalciferol (Vitamin D3) (VITAMIN D-3) 2,000 Unit Capsule, 2000 U PO DAILY for 30 Days 04/30/18 Aspirin* (Aspirin* EC) 81 Mg Tablet.dr, 81 MG PO DAILY for 30 Days, #30 04/30/18 Amlodipine Besylate* (Amlodipine Besylate*) 5 Mg Tablet, 5 MG PO DAILY for 30 Days, #30 04/30/18 Ibuprofen* (Ibuprofen*) 600 Mg Tablet, 600 MG PO Q6H PRN for PAIN AND/OR INFLAMMATION, TAB 04/30/18 Baclofen* (Baclofen*) 10 Mg Tablet, 10 MG PO BID 04/30/18 Docusate Sodium* (Docusate Sodium*) 100 Mg Capsule, 100 MG PO BID, #60 CAP 04/30/18 Calcium Carbonate ([id number]) 500 Mg Tablet, 500 MG PO BID, TAB 04/30/18 Medications Current Medications IV Flush (NS 3 ml) 3 ml PER PROTOCOL IV ; Start 06/04/18 at 00:00 Ondansetron HCl (Zofran Inj) 4 mg Q6H PRN IV NAUSEA/VOMITING; Start 06/04/18 at 00:00 Acetaminophen (Tylenol Tab) 650 mg Q6H PRN PO .PAIN 1-3 OR TEMP; Start 06/04/18 at 00:00 Docusate Sodium (Colace) 100 mg Q12H PRN PO .CONSTIPATION; Start 06/04/18 at 00 :00 Bisacodyl (Dulcolax) 5 mg DAILY PRN PO .CONSTIPATION; Start 06/04/18 at 00:00 Pantoprazole (Protonix Tab) 40 mg DAILY@06 PO Last administered on 06/04/18 05:58; Admin Dose 40 MG; Start 06/04/18 at 06:00 Levalbuterol (Xopenex Neb) 1.25 mg Q4H RESP THERAPY HHN Last administered on 06/04/18 12:41; Admin Dose 1.25 MG; Start 06/04/18 at 00:00 Ipratropium [place] (Atrovent 0.02% (Neb)) 0.5 mg Q4H RESP THERAPY HHN Last administered on 06/04/18 12:41; Admin Dose 0.5 MG; Start 06/04/18 at 01:00 Prednisone (Prednisone) 40 mg DAILY PO Last administered on 06/04/18 08:35; Admin Dose 40 MG; Start 06/04/18 at 00:00; Stop 06/08/18 at 23:59 Amlodipine Besylate (Norvasc) 5 mg DAILY PO Last administered on 06/04/18 08:35; Admin Dose 5 MG; Start 06/04/18 at 09:00 Baclofen (Lioresal) 10 mg BID PO Last administered on 06/04/18 08:35; Admin Dose 10 MG; Start 06/04/18 at 00:30 Docusate Sodium (Colace) 100 mg BID PO Last administered on 06/04/18 08:35; Admin Dose 100 MG; Start 06/04/18 at 09:00 Hydroxyzine HCl (Atarax) 10 mg TID PO Last administered on 06/04/18 12:19; Admin Dose 10 MG; Start 06/04/18 at 09:00 Methadone HCl (Methadone Liq) 68 mg DAILY PO ; Start 06/04/18 at 00:30; Status UNV Fluticasone/ Vilanterol (Breo Ellipta 100-25 Mcg Inh) 1 inh DAILY INH Last administered on 06/04/18 09:58; Admin Dose 1 INH; Start 06/04/18 at 09:00 Miscellaneous Information (Pending [facility] Order For Wound Care) This patient savage... PRN PRN XX WOUND CARE; Start 06/04/18 at 03:00 Cefepime HCl 50 ml @ 100 mls/hr Q12 IVPB Last administered on 06/04/18at 09:58; Admin Dose 100 MLS/HR; Start 06/04/18 at 09:30 Sertraline HCl (Zoloft) 100 mg DAILY PO Last administered on 06/04/18at 09:57; Admin Dose 100 MG; Start 06/04/18 at 10:00 Lactulose (Enulose) 20 gm Q8 PO Last administered on 06/04/18at 13:37; Admin Dose 20 GM; Start 06/04/18 at 14:00 Rifaximin (Xifaxan) 550 mg BID PO Last administered on 06/04/18at 12:19; Admin Dose 550 MG; Start 06/04/18 at 11:30 Aspirin (Aspirin) 81 mg DAILY PO ; Start 06/05/18 at 09:00; Status UNV Allergies: Coded Allergies: Sulfa (Sulfonamide Antibiotics) (Unverified Allergy, Mild, 04/30/18) chlorpromazine HCl (Unverified Allergy, Unknown, 04/30/18) lorazepam (Unverified Allergy, Unknown, 04/30/18) Uncoded Allergies: tape (Allergy, Mild, rash, 02/28/16) Past Surgical History Past Surgical Hx: other Social History Smoking Status: Former smoker Exam/Review of Systems Vital Signs Vitals Vital Signs Date Temp Pulse Resp B/P (MAP) Pulse Ox O2 O2 Flow FiO2 Time Delivery Rate 06/04/18 79 18 96 Nasal 2.0 12:51 Cannula 06/04/18 98.0 128/70 12:24 (89) Intake and Output 06/03/18 06/03/18 06/04/18 1515:00 23:00 07:00 IntakeIntake Total 350 ml OutputOutput Total 800 ml BalanceBalance -450 ml Exam Constitutional: No alert (somnolent but able to answer basic questions ) Psych: no complaints Head: normocephalic, atraumatic Neck: No jvd Respiratory: clear to auscultation, diminished breath sounds Cardiovascular: regular rate and rhythm; No edema, No systolic murmur Gastrointestinal: soft, non-tender; No distended Musculoskeletal: nl extremities to inspection Neurological: No nl mental status, No nl speech Labs Result Diagram: 06/04/18 0550 06/04/18 0550 Results 24hrs Laboratory Tests Test 06/04/18 05:50 06/04/18 10:05 06/04/18 10:06 06/04/18 11:00 White Blood Count 11.4 #H Red Blood Count 3.54 #L Hemoglobin 11.2 #L Hematocrit 36.2 #L Mean Corpuscular Volume 102.3 H Mean Corpuscular 31.6 Hemoglobin Mean Corpuscular 30.9 L Hemoglobin Concent Red Cell Distribution 17.2 #H Width Platelet Count 80 #L Mean Platelet Volume 12.2 #H Immature Granulocytes % 0.500 H Neutrophils % Segmented Neutrophils 96 H % (Manual) Band Neutrophils % 2 (Manual) Lymphocytes % Lymphocytes % (Manual) 1 L Monocytes % Eosinophils % Basophils % Metamyelocytes % 1 H (manual) Nucleated Red Blood 2 H Cells % Immature Granulocytes # 0.060 H Neutrophils # Neutrophils # (Manual) 11.0 H Band Neutrophils # 0.2 Lymphocytes (Manual) 0.1 L Lymphocytes # Monocytes # Eosinophils # Basophils # Metamyelocytes # 0.1 H Nucleated Red Blood Cells # Platelet Estimate DECREASED Polychromasia 2+ Hypochromasia 1+ Poikilocytosis 2+ Anisocytosis 1+ Macrocytosis 1+ Target Cells 1+ Ovalocytes 2+ Sodium Level 141 Potassium Level 4.2 Chloride Level 103 Carbon Dioxide Level 30 Anion Gap 8 Blood Urea Nitrogen 52 H Creatinine 1.22 H Est Glomerular Filtrat 44 L Rate mL/min Glucose Level 122 Calcium Level 7.8 L Total Bilirubin 0.8 Direct Bilirubin 0.00 Indirect Bilirubin 0.8 Aspartate Amino 2259 H Transf (AST/SGOT) Alanine 4549 H Aminotransferase (ALT/SG PT) Alkaline Phosphatase 82 Total Protein 5.9 L Albumin 3.3 Globulin 2.60 Albumin/Globulin Ratio 1.26 Creatine Kinase 85 Creatine Kinase Index 4.7 Creatinine Kinase MB 4.01 H (Mass) Troponin I 0.448 *H Prothrombin Time 19.8 H Prothrombin Time Ratio 1.5 INR International 1.67 Normalized Ratio Activated 27.3 Partial Thromboplast Time Ammonia < 9 L Hepatitis B Surface NEGATIVE Antigen Hepatitis B Surface POSITIVE H Antibody Hepatitis B Core NEGATIVE Total Antibody Hepatitis C Antibody REACTIVE H Urine Opiates Screen Positive Urine Barbiturates Negative Urine Amphetamines Negative Screen Urine Benzodiazepines Negative Screen Urine Cocaine Screen Negative Urine Cannabinoids Negative Test 06/04/18 13:06 Creatine Kinase 66 Creatine Kinase Index 5.3 Creatinine Kinase MB 3.51 H (Mass) Troponin I 0.407 *H Medications Medications Current Medications IV Flush (NS 3 ml) 3 ml PER PROTOCOL IV ; Start 06/04/18 at 00:00 Ondansetron HCl (Zofran Inj) 4 mg Q6H PRN IV NAUSEA/VOMITING; Start 06/04/18 at 00:00 Acetaminophen (Tylenol Tab) 650 mg Q6H PRN PO .PAIN 1-3 OR TEMP; Start 06/04/18 at 00:00 Docusate Sodium (Colace) 100 mg Q12H PRN PO .CONSTIPATION; Start 06/04/18 at 00:00 Bisacodyl (Dulcolax) 5 mg DAILY PRN PO .CONSTIPATION; Start 06/04/18 at 00:00 Pantoprazole (Protonix Tab) 40 mg DAILY@06 PO Last administered on 06/04/18 05:58; Admin Dose 40 MG; Start 06/04/18 at 06:00 Levalbuterol (Xopenex Neb) 1.25 mg Q4H RESP THERAPY HHN Last administered on 06/04/18 12:41; Admin Dose 1.25 MG; Start 06/04/18 at 00:00 Ipratropium [place] (Atrovent 0.02% (Neb)) 0.5 mg Q4H RESP THERAPY HHN Last administered on 06/04/18 12:41; Admin Dose 0.5 MG; Start 06/04/18 at 01:00 Prednisone (Prednisone) 40 mg DAILY PO Last administered on 06/04/18 08:35; Admin Dose 40 MG; Start 06/04/18 at 00:00; Stop 06/08/18 at 23:59 Amlodipine Besylate (Norvasc) 5 mg DAILY PO Last administered on 06/04/18 08:35; Admin Dose 5 MG; Start 06/04/18 at 09:00 Baclofen (Lioresal) 10 mg BID PO Last administered on 06/04/18 08:35; Admin Dose 10 MG; Start 06/04/18 at 00:30 Docusate Sodium (Colace) 100 mg BID PO Last administered on 06/04/18 08:35; Admin Dose 100 MG; Start 06/04/18 at 09:00 Hydroxyzine HCl (Atarax) 10 mg TID PO Last administered on 06/04/18 12:19; Admin Dose 10 MG; Start 06/04/18 at 09:00 Methadone HCl (Methadone Liq) 68 mg DAILY PO ; Start 06/04/18 at 00:30; Status UNV Fluticasone/ Vilanterol (Breo Ellipta 100-25 Mcg Inh) 1 inh DAILY INH Last administered on 06/04/18 09:58; Admin Dose 1 INH; Start 06/04/18 at 09:00 Miscellaneous Information (Pending Santyl Order For Wound Care) This patient savage... PRN PRN XX WOUND CARE; Start 06/04/18 at 03:00 Cefepime HCl 50 ml @ 100 mls/hr Q12 IVPB Last administered on 06/04/18 09:58; Admin Dose 100 MLS/HR; Start 06/04/18 at 09:30 Sertraline HCl (Zoloft) 100 mg DAILY PO Last administered on 06/04/18 09:57; Admin Dose 100 MG; Start 06/04/18 at 10:00 Lactulose (Enulose) 20 gm Q8 PO Last administered on 06/04/18 13:37; Admin Dose 20 GM; Start 06/04/18 at 14:00 Rifaximin (Xifaxan) 550 mg BID PO Last administered on 06/04/18 12:19; Admin Dose 550 MG; Start 06/04/18 at 11:30 Aspirin (Aspirin) 81 mg DAILY PO ; Start 06/05/18 at 09:00; Status UNV WILFRID OCAMPO Jun 04, 2018 15:40
[2018-06-05] VITALS (10 sets, daily range): BP systolic 101–117; BP diastolic 56–72; PULSE 63–94; RESP 18
[2018-06-05] MEDS: LEVALBUTEROL (NEB) 1.25 MG/0.5 ML AMP HHN SCH ×6 (01:48→20:16)
[2018-06-05] MEDS: IPRATROPIUM (NEB) 0.5 MG/2.5 ML AMP HHN SCH ×6 (01:48→20:16)
[2018-06-05] MEDS: PANTOPRAZOLE (EC) 40 MG TAB PO SCH (06:26)
[2018-06-05] MEDS: LACTULOSE 30ML CUP PO SCH ×3 (06:26→21:02)
[2018-06-05] MEDS: BACLOFEN 10 MG TAB PO SCH ×2 (08:43→21:02)
[2018-06-05] MEDS: AMLODIPINE 5 MG TAB PO SCH (08:43)
[2018-06-05] MEDS: predniSONE 20 MG TAB PO SCH (08:43)
[2018-06-05] MEDS: hydrOXYzine HCL 10 MG TAB PO SCH ×3 (08:44→21:00)
[2018-06-05] MEDS: ASPIRIN 81 MG TAB PO SCH (08:44)
[2018-06-05] MEDS: FLUTICASONE/VILANTEROL 100-25 INH SCH (08:44)
[2018-06-05] MEDS: RIFAXIMIN 550 MG TAB PO SCH ×2 (08:44→21:00)
[2018-06-05] MEDS: DOCUSATE SODIUM 100 MG CAP PO SCH ×2 (08:44→21:02)
[2018-06-05] MEDS: SERTRALINE 100 MG TAB PO SCH (08:44)
[2018-06-05] MEDS: CEFEPIME 1GM/50 ML (PMX) 50 ML IVPB SCH ×2 (08:44→21:03)
--- NOTE | 2018-06-05 10:10 | CONS ---
Assessment/Plan Assessment/Plan Hospital Course (Demo Recall) NSTEMI: trop 2 at [facility]. Downtrended. EF preserved. No symptoms. Not an interventional candidate with her comorbidities, thrombocytopenia, coagulapathy, noncompliance Acute renal failure: Cr 2.4 with hyperkalemia on admission. Improved Acute liver failure: AST/ALT 6000s, Improving Acute on chronic respiratory failure: due to COPD, resolved Acute on chronic COPD exacerbation Pulm HTN: PAP 60s Hep C and alcohol cirrhosis coagulopathy/thrombocytopenia heroin use -ASA with holding parameters -no statin with transaminitis -no BB for now with severe COPD -amlodipine 5mg Consultation Date/Type/Reason Admit Date/Time Jun 03, 2018 at 22:06 Initial Consult Date 06/04/18 Type of Consult Cardiology Requesting Provider: ZHANG WARE NP Date/Time of Note DATE: 06/05/18 TIME: 10:09 24 HR Interval Summary Free Text/Dictation No events. No complaints. Still somnolent but more awake today Exam/Review of Systems Vital Signs Vitals Vital Signs Date Temp Pulse Resp B/P (MAP) Pulse Ox O2 O2 Flow FiO2 Time Delivery Rate 06/05/18 71 08:01 06/05/18 Nasal 2.0 07:57 Cannula 06/05/18 93 07:53 06/05/18 98.0 18 115/67 07:29 (83) Intake and Output 06/04/18 06/04/18 06/05/18 1515:00 23:00 07:00 IntakeIntake Total 310 ml 100 ml OutputOutput Total 900 ml 500 ml BalanceBalance 310 ml -800 ml -500 ml Exam Constitutional: alert Psych: no complaints, nl mood/affect Neck: supple; No jvd Respiratory: clear to auscultation; No crackles/rales Cardiovascular: regular rate and rhythm; No edema, No systolic murmur Gastrointestinal: soft, non-tender; No distended Neurological: nl mental status, nl speech Labs Result Diagram: 06/05/1844206/05/183 Results 24hrs Laboratory Tests Test 06/04/18 11:00 06/04/18 13:06 06/05/18 04:43 Urine Opiates Screen Positive Urine Barbiturates Negative Urine Amphetamines Screen Negative Urine Benzodiazepines Screen Negative Urine Cocaine Screen Negative Urine Cannabinoids Negative Creatine Kinase 66 Creatine Kinase Index 5.3 Creatinine Kinase MB (Mass) 3.51 H Troponin I 0.407 *H White Blood Count 11.0 H Red Blood Count 3.99 L Hemoglobin 12.4 Hematocrit 40.2 Mean Corpuscular Volume 100.8 Mean Corpuscular Hemoglobin 31.1 Mean Corpuscular Hemoglobin Concent 30.8 L Red Cell Distribution Width 17.2 H Platelet Count 113 #L Mean Platelet Volume 12.0 H Immature Granulocytes % 0.500 H Neutrophils % 90.5 H Lymphocytes % 3.5 L Monocytes % 5.3 Eosinophils % 0.0 Basophils % 0.2 Nucleated Red Blood Cells % 0.3 H Immature Granulocytes # 0.060 H Neutrophils # 10.0 H Lymphocytes # 0.4 L Monocytes # 0.6 Eosinophils # 0.0 Basophils # 0.0 Nucleated Red Blood Cells # 0.0 Sodium Level 143 Potassium Level 3.8 Chloride Level 105 Carbon Dioxide Level 31 Anion Gap 7 Blood Urea Nitrogen 43 H Creatinine 0.88 Est Glomerular Filtrat Rate mL/min > 60 Glucose Level 134 Calcium Level 8.0 L Phosphorus Level 2.2 L Magnesium Level 2.2 Total Bilirubin 0.7 Direct Bilirubin 0.00 Indirect Bilirubin 0.7 Aspartate Amino Transf (AST/SGOT) 741 H Alanine Aminotransferase (ALT/SGPT) 2982 H Alkaline Phosphatase 75 Total Protein 5.8 L Albumin 3.1 L Globulin 2.70 Albumin/Globulin Ratio 1.14 Medications Medications Current Medications IV Flush (NS 3 ml) 3 ml PER PROTOCOL IV ; Start 06/04/18 at 00:00 Ondansetron HCl (Zofran Inj) 4 mg Q6H PRN IV NAUSEA/VOMITING; Start 06/04/18 at 00:00 Acetaminophen (Tylenol Tab) 650 mg Q6H PRN PO .PAIN 1-3 OR TEMP; Start 06/04/18 at 00:00 Docusate Sodium (Colace) 100 mg Q12H PRN PO .CONSTIPATION; Start 06/04/18 at 00:00 Bisacodyl (Dulcolax) 5 mg DAILY PRN PO .CONSTIPATION; Start 06/04/18 at 00:00 Pantoprazole (Protonix Tab) 40 mg DAILY@06 PO Last administered on 06/05/18at 06:26; Admin Dose 40 MG; Start 06/04/18 at 06:00 Levalbuterol (Xopenex Neb) 1.25 mg Q4H RESP THERAPY HHN Last administered on 06/05/18 07:53; Admin Dose 1.25 MG; Start 06/04/18 at 00:00 Ipratropium [place] (Atrovent 0.02% (Neb)) 0.5 mg Q4H RESP THERAPY HHN Last administered on 06/05/18 07:52; Admin Dose 0.5 MG; Start 06/04/18 at 01:00 Prednisone (Prednisone) 40 mg DAILY PO Last administered on 06/05/18 08:43; Admin Dose 40 MG; Start 06/04/18 at 00:00; Stop 06/08/18 at 23:59 Amlodipine Besylate (Norvasc) 5 mg DAILY PO Last administered on 06/05/18 08:43; Admin Dose 5 MG; Start 06/04/18 at 09:00 Baclofen (Lioresal) 10 mg BID PO Last administered on 06/05/18 08:43; Admin Dose 10 MG; Start 06/04/18 at 00:30 Docusate Sodium (Colace) 100 mg BID PO Last administered on 06/05/18 08:44; Admin Dose 100 MG; Start 06/04/18 at 09:00 Hydroxyzine HCl (Atarax) 10 mg TID PO Last administered on 06/05/18 08:44; Admin Dose 10 MG; Start 06/04/18 at 09:00 Fluticasone/ Vilanterol (Breo Ellipta 100-25 Mcg Inh) 1 inh DAILY INH Last administered on 06/05/18 08:44; Admin Dose 1 INH; Start 06/04/18 at 09:00 [facility] This patient savage... PRN PRN XX WOUND CARE; Start 06/04/18 at 03:00 Cefepime HCl 50 ml @ 100 mls/hr Q12 IVPB Last administered on 06/05/18 08:44; Admin Dose 100 MLS/HR; Start 06/04/18 at 09:30 Sertraline HCl (Zoloft) 100 mg DAILY PO Last administered on 06/05/18 08:44; Admin Dose 100 MG; Start 06/04/18 at 10:00 Lactulose (Enulose) 20 gm Q8 PO Last administered on 06/05/18at 06:26; Admin Dose 20 GM; Start 06/04/18 at 14:00 Rifaximin (Xifaxan) 550 mg BID PO Last administered on 06/05/18at 08:44; Admin Dose 550 MG; Start 06/04/18 at 11:30 Aspirin (Aspirin) 81 mg DAILY PO Last administered on 06/05/18 08:44; Admin Dose 81 MG; Start 06/05/18 at 09:00 WILFRID OCAMPO Jun 05, 2018 10:10
--- NOTE | 2018-06-05 10:21 | PN ---
Date/Time of Note Date/Time of Note DATE: 06/05/18 TIME: 10:13 Assessment/Plan VTE Prophylaxis [place] [facility] risk: 4 SCD applied ([place] [facility] Yes Pharmacological prophylaxis: NA/contraindicated Pharm contraindication: liver dx Lines/Catheters [facility] Peripheral IV Urinary Cath still in place: Yes Reason Cath still needed: other (indicate) (I and O) Assessment/Plan Assessment/Plan Assessment: Transaminitis AST 2259/ALT [id number] ischemic due to NSTEMI Hepatic encephalopathy Leukocytosis Hepatitis C versus alcoholic liver cirrhosis Coagulopathy COPD Hypertension Chronic kidney disease Alcohol abuse 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 Campos Subjective: Patient appears lethargic and slightly confused. She denies abdominal pain, nausea or vomiting. Tolerating regular diet well. Liver function test is trending down. No bowel movements today yet. Will increase lactulose. Continue observation. PHYSICAL EXAMINATION: GENERAL: Cachectic, alert and confused, in no acute distress SKIN: No lesions, no stigmata chronic liver disease, no evidence of bleeding diathesis LYMPHATIC: No palpable lymphadenopathy. HEAD: Normocephalic, atraumatic, no tenderness. EYES: Pupils equal reactive to light and accommodation, full extraocular movements, sclera clear, non-icteric, no discharge. EARS/NOSE AND THROAT: Ears normal, nose normal, oropharynx normal, oral membranes well hydrated without lesions. NECK: Supple, no masses, thyroid normal, JVP within normal limits, carotids normal without bruits. CHEST: Inspection within normal limits. CARDIOVASCULAR: Heart: Regular rate and rhythm, no murmurs, gallops or rubs. Peripheral pulses present within normal limits, no cyanosis, clubbing or edemas. No pulsatile abdominal mass RESPIRATORY: Lungs clear to auscultation and percussion, no wheezing, no rubs GASTROINTESTINAL AND LIVER: Abdomen: Soft, non tenderness, non-distended, no hernias, no masses, no organomegaly, no ascites, no guarding, no rebound tende rness, normoactive bowel sounds. Rectal: Deferred. GENITOURINARY: Female genitalia within normal limits. EXTREMITIES: No cyanosis, clubbing or edema. Result Diagram: 06/05/18 0443 06/05/183 Results 24hrs Laboratory Tests Test 06/04/18 11:00 06/04/18 13:06 06/05/18 04:43 Urine Opiates Screen Positive Urine Barbiturates Negative Urine Amphetamines Screen Negative Urine Benzodiazepines Screen Negative Urine Cocaine Screen Negative Urine Cannabinoids Negative Creatine Kinase 66 Creatine Kinase Index 5.3 Creatinine Kinase MB (Mass) 3.51 H Troponin I 0.407 *H White Blood Count 11.0 H Red Blood Count 3.99 L Hemoglobin 12.4 Hematocrit 40.2 Mean Corpuscular Volume 100.8 Mean Corpuscular Hemoglobin 31.1 Mean Corpuscular Hemoglobin Concent 30.8 L Red Cell Distribution Width 17.2 H Platelet Count 113 #L Mean Platelet Volume 12.0 H Immature Granulocytes % 0.500 H Neutrophils % 90.5 H Lymphocytes % 3.5 L Monocytes % 5.3 Eosinophils % 0.0 Basophils % 0.2 Nucleated Red Blood Cells % 0.3 H Immature Granulocytes # 0.060 H Neutrophils # 10.0 H Lymphocytes # 0.4 L Monocytes # 0.6 Eosinophils # 0.0 Basophils # 0.0 Nucleated Red Blood Cells # 0.0 Sodium Level 143 Potassium Level 3.8 Chloride Level 105 Carbon Dioxide Level 31 Anion Gap 7 Blood Urea Nitrogen 43 H Creatinine 0.88 Est Glomerular Filtrat Rate mL/min > 60 Glucose Level 134 Calcium Level 8.0 L Phosphorus Level 2.2 L Magnesium Level 2.2 Total Bilirubin 0.7 Direct Bilirubin 0.00 Indirect Bilirubin 0.7 Aspartate Amino Transf (AST/SGOT) 741 H Alanine Aminotransferase (ALT/SGPT) 2982 H Alkaline Phosphatase 75 Total Protein 5.8 L Albumin 3.1 L Globulin 2.70 Albumin/Globulin Ratio 1.14 CC: JONELLE CAMPOS MD ; Exam/Review of Systems Exam Vitals Vital Signs Date Temp Pulse Resp B/P (MAP) Pulse Ox O2 O2 Flow FiO2 Time Delivery Rate 06/05/18 71 08:01 06/05/18 Nasal 2.0 07:57 Cannula 06/05/18 93 07:53 06/05/18 98.0 18 115/67 07:29 (83) Intake and Output 06/04/18 06/04/18 06/05/18 1414:59 22:59 06:59 IntakeIntake Total 310 ml 100 ml OutputOutput Total 900 ml 500 ml BalanceBalance 310 ml -800 ml -500 ml Results Results 24hrs Laboratory Tests Test 06/04/18 11:00 06/04/18 13:06 06/05/18 04:43 Urine Opiates Screen Positive Urine Barbiturates Negative Urine Amphetamines Screen Negative Urine Benzodiazepines Screen Negative Urine Cocaine Screen Negative Urine Cannabinoids Negative Creatine Kinase 66 Creatine Kinase Index 5.3 Creatinine Kinase MB (Mass) 3.51 H Troponin I 0.407 *H White Blood Count 11.0 H Red Blood Count 3.99 L Hemoglobin 12.4 Hematocrit 40.2 Mean Corpuscular Volume 100.8 Mean Corpuscular Hemoglobin 31.1 Mean Corpuscular Hemoglobin Concent 30.8 L Red Cell Distribution Width 17.2 H Platelet Count 113 #L Mean Platelet Volume 12.0 H Immature Granulocytes % 0.500 H Neutrophils % 90.5 H Lymphocytes % 3.5 L Monocytes % 5.3 Eosinophils % 0.0 Basophils % 0.2 Nucleated Red Blood Cells % 0.3 H Immature Granulocytes # 0.060 H Neutrophils # 10.0 H Lymphocytes # 0.4 L Monocytes # 0.6 Eosinophils # 0.0 Basophils # 0.0 Nucleated Red Blood Cells # 0.0 Sodium Level 143 Potassium Level 3.8 Chloride Level 105 Carbon Dioxide Level 31 Anion Gap 7 Blood Urea Nitrogen 43 H Creatinine 0.88 Est Glomerular Filtrat Rate mL/min > 60 Glucose Level 134 Calcium Level 8.0 L Phosphorus Level 2.2 L Magnesium Level 2.2 Total Bilirubin 0.7 Direct Bilirubin 0.00 Indirect Bilirubin 0.7 Aspartate Amino Transf (AST/SGOT) 741 H Alanine Aminotransferase (ALT/SGPT) 2982 H Alkaline Phosphatase 75 Total Protein 5.8 L Albumin 3.1 L Globulin 2.70 Albumin/Globulin Ratio 1.14 Medications Medication Current Medications IV Flush (NS 3 ml) 3 ml PER PROTOCOL IV ; Start 06/04/18 at 00:00 Ondansetron HCl (Zofran Inj) 4 mg Q6H PRN IV NAUSEA/VOMITING; Start 06/04/18 at 00:00 Acetaminophen (Tylenol Tab) 650 mg Q6H PRN PO .PAIN 1-3 OR TEMP; Start 06/04/18 at 00:00 Docusate Sodium (Colace) 100 mg Q12H PRN PO .CONSTIPATION; Start 06/04/18 at 00:00 Bisacodyl (Dulcolax) 5 mg DAILY PRN PO .CONSTIPATION; Start 06/04/18 at 00:00 Pantoprazole (Protonix Tab) 40 mg DAILY@06 PO Last administered on 06/05/18 06: 26; Admin Dose 40 MG; Start 06/04/18 at 06:00 Levalbuterol (Xopenex Neb) 1.25 mg Q4H RESP THERAPY HHN Last administered on 06/05/18 07:53; Admin Dose 1.25 MG; Start 06/04/18 at 00:00 Ipratropium [place] (Atrovent 0.02% (Neb)) 0.5 mg Q4H RESP THERAPY HHN Last administered on 06/05/18 07:52; Admin Dose 0.5 MG; Start 06/04/18 at 01:00 Prednisone (Prednisone) 40 mg DAILY PO Last administered on 06/05/18 08:43; Admin Dose 40 MG; Start 06/04/18 at 00:00; Stop 06/08/18 at 23:59 Amlodipine Besylate (Norvasc) 5 mg DAILY PO Last administered on 06/05/18 08:43; Admin Dose 5 MG; Start 06/04/18 at 09:00 Baclofen (Lioresal) 10 mg BID PO Last administered on 06/05/18 08:43; Admin Dose 10 MG; Start 06/04/18 at 00:30 Docusate Sodium (Colace) 100 mg BID PO Last administered on 06/05/18 08:44; Admin Dose 100 MG; Start 06/04/18 at 09:00 Hydroxyzine HCl (Atarax) 10 mg TID PO Last administered on 06/05/18 08:44; Admin Dose 10 MG; Start 06/04/18 at 09:00 Fluticasone/ Vilanterol (Breo Ellipta 100-25 Mcg Inh) 1 inh DAILY INH Last administered on 06/05/18 08:44; Admin Dose 1 INH; Start 06/04/18 at 09:00 [facility] This patient savage... PRN PRN XX WOUND CARE; Start 4/6/19 at 03:00 Cefepime HCl 50 ml @ 100 mls/hr Q12 IVPB Last administered on 06/05/18 08:44; Admin Dose 100 MLS/HR; Start 06/04/18 at 09:30 Sertraline HCl (Zoloft) 100 mg DAILY PO Last administered on 06/05/18 08:44; Admin Dose 100 MG; Start 06/04/18 at 10:00 Lactulose (Enulose) 20 gm Q8 PO Last administered on 06/05/18 06:26; Admin Dose 20 GM; Start 06/04/18 at 14:00 Rifaximin (Xifaxan) 550 mg BID PO Last administered on 06/05/18 08:44; Admin Dose 550 MG; Start 06/04/18 at 11:30 Aspirin (Aspirin) 81 mg DAILY PO Last administered on 06/05/18 08:44; Admin Dose 81 MG; Start 06/05/18 at 09:00 KRIS BAKER NP Jun 05, 2018 10:21
--- NOTE | 2018-06-05 11:12 | PN ---
Date/Time of Note Date/Time of Note DATE: 06/05/18 TIME: 11:09 Assessment/Plan VTE Prophylaxis Risk score (from Ns)>0 risk: 4 SCD applied (from [facility]): Yes Pharmacological prophylaxis: NA/contraindicated Pharm contraindication: thrombocytopenia Lines[facility] Urinary Cath still in place: Yes Reason Cath still needed: other (indicate) Assessment/Plan Hospital Course SUBJECTIVE: Denies any dyspnea at this time. Denies any chest pain. OBJECTIVE: Physical Exam General: Frail looking, 68 year-old female lying in bed in no apparent distress. HEENT: Normocephalic, atraumatic. Eyes: Anicteric sclerae, conjunctivae clear. ENT: Nasal septum midline, oral mucosa moist. Neck supple, no JVD noticed. Respiratory: Bilaterally diminished breath sounds. No use of accessory muscles of respiration. B/L rales. Cardiovascular: S1, S2 heard. Regular rate and rhythm. Abdomen: Soft, nontender, and nondistended. Bowel sounds positive in all 4 quadrants. Genitourinary: Deferred. Extremities: No cyanosis, no edema. Peripheral pulses palpable. Neurologic: Somnolent. Wakes up to call and answers questions. Skin: Normal skin turgor. No skin rashes. Labs & Vitals per chart ASSESSMENT & PLAN This is a 68-year-old female with past medical history of COPD, chronic r espiratory failure dependent on home oxygen, hypertension, pulmonary hypertension, chronic kidney disease, alcohol abuse, and a remote history of heroin abuse currently on methadone. The patient went to the local hospital on June 02, 2018 because of shortness of breath. The patient was noted to be in significant respiratory failure that necessitated admission to [facility] including ICU stay and noninvasive positive pressure ventilation. The patient also had underlying coagulopathy with an INR of 2.5. The patient also had a WBC of 15.7. The patient was empirically treated for any underlying infectious process. Infectious diseases was involved in the patient's care. The patient also had NSTEMI. The patient was evaluated by cardiology at the transferring facility with the 2D echocardiogram showing preserved left ventricular ejection fraction, but evidence of underlying pulmonary hypertension. The patient was gradually moved out of the intensive care unit once the patient was stable. The patient was transferred to [facility] on 06/03/2018 for further management and evaluation because of insurance reasons. 1. COPD exacerbation. -Continue bronchodilators IZAIAH and LABA. -Continue tapering dose of steroids. 2. Acute on chronic respiratory failure -Hypoxic and hypercapnic -Status post noninvasive positive pressure ventilation at the transferring facility. -Currently stable. 3. Possible underlying acute bronchitis -On empiric cefepime as per ID from the transferring facility. 4. NSTEMI. -Preserved left ventricular ejection fraction -Status post cardiology evaluation at the transferring facility. -Most probably secondary to demand ischemia. -Continue ASA. -Cardiology following. -Continue good candidate for invasive procedures prior to the patient's underlying thrombocytopenia noncompliance. 5. Essential hypertension -Continue antihypertensives. 6. Pulmonary hypertension. -Most probably secondary to chronic hypoxia. -Continue supplemental oxygen. 7. Transaminitis without hyperbilirubinemia -Known history of hepatitis C and alcoholic liver cirrhosis. -Gastroenterology following. -Avoid hepatotoxic medications. -Trend LFTs. 8. History of heroin abuse. -Currently on methadone (has not been taking methadone for the past 3 weeks). 9. Coagulopathy. -Most probably secondary to underlying liver cirrhosis. -Monitor for bleeding. 10. Microcytic anemia -Most probably secondary to underlying alcohol abuse. -Monitor H&H closely. 11. Dysphagia. -Aspiration precautions. -ST evaluation. 12. DVT prophylaxis -Bilateral SCDs. 13. Plan. -Continue antimicrobials. -Continue tapering dose of steroids. -Upon discharge, the patient wants to go back to her previous living situation. The patient reported that she lives at home by herself. The patient was seen in collaboration with Dr. Finley. Result Diagram: 06/05/18 0443 06/05/18 0443 Results 24hrs Laboratory Tests Test 06/04/18 13:06 06/05/18 04:43 Creatine Kinase 66 Creatine Kinase Index 5.3 Creatinine Kinase MB (Mass) 3.51 H Troponin I 0.407 *H White Blood Count 11.0 H Red Blood Count 3.99 L Hemoglobin 12.4 Hematocrit 40.2 Mean Corpuscular Volume 100.8 Mean Corpuscular Hemoglobin 31.1 Mean Corpuscular Hemoglobin Concent 30.8 L Red Cell Distribution Width 17.2 H Platelet Count 113 #L Mean Platelet Volume 12.0 H Immature Granulocytes % 0.500 H Neutrophils % 90.5 H Lymphocytes % 3.5 L Monocytes % 5.3 Eosinophils % 0.0 Basophils % 0.2 Nucleated Red Blood Cells % 0.3 H Immature Granulocytes # 0.060 H Neutrophils # 10.0 H Lymphocytes # 0.4 L Monocytes # 0.6 Eosinophils # 0.0 Basophils # 0.0 Nucleated Red Blood Cells # 0.0 Sodium Level 143 Potassium Level 3.8 Chloride Level 105 Carbon Dioxide Level 31 Anion Gap 7 Blood Urea Nitrogen 43 H Creatinine 0.88 Est Glomerular Filtrat Rate mL/min > 60 Glucose Level 134 Calcium Level 8.0 L Phosphorus Level 2.2 L Magnesium Level 2.2 Total Bilirubin 0.7 Direct Bilirubin 0.00 Indirect Bilirubin 0.7 Aspartate Amino Transf (AST/SGOT) 741 H Alanine Aminotransferase (ALT/SGPT) 2982 H Alkaline Phosphatase 75 Total Protein 5.8 L Albumin 3.1 L Globulin 2.70 Albumin/Globulin Ratio 1.14 Exam/Review of Systems Exam Vitals Vital Signs Date Temp Pulse Resp B/P (MAP) Pulse Ox O2 O2 Flow FiO2 Time Delivery Rate 06/05/18 71 08:01 06/05/18 Nasal 2.0 07:57 Cannula 06/05/18 93 07:53 06/05/18 98.0 18 115/67 07:29 (83) Intake and Output 06/04/18 06/04/18 06/05/18 1414:59 22:59 06:59 IntakeIntake Total 310 ml 100 ml OutputOutput Total 900 ml 500 ml BalanceBalance 310 ml -800 ml -500 ml Results Results 24hrs Laboratory Tests Test 06/04/18 13:06 06/05/18 04:43 Creatine Kinase 66 Creatine Kinase Index 5.3 Creatinine Kinase MB (Mass) 3.51 H Troponin I 0.407 *H White Blood Count 11.0 H Red Blood Count 3.99 L Hemoglobin 12.4 Hematocrit 40.2 Mean Corpuscular Volume 100.8 Mean Corpuscular Hemoglobin 31.1 Mean Corpuscular Hemoglobin Concent 30.8 L Red Cell Distribution Width 17.2 H Platelet Count 113 #L Mean Platelet Volume 12.0 H Immature Granulocytes % 0.500 H Neutrophils % 90.5 H Lymphocytes % 3.5 L Monocytes % 5.3 Eosinophils % 0.0 Basophils % 0.2 Nucleated Red Blood Cells % 0.3 H Immature Granulocytes # 0.060 H Neutrophils # 10.0 H Lymphocytes # 0.4 L Monocytes # 0.6 Eosinophils # 0.0 Basophils # 0.0 Nucleated Red Blood Cells # 0.0 Sodium Level 143 Potassium Level 3.8 Chloride Level 105 Carbon Dioxide Level 31 Anion Gap 7 Blood Urea Nitrogen 43 H Creatinine 0.88 Est Glomerular Filtrat Rate mL/min > 60 Glucose Level 134 Calcium Level 8.0 L Phosphorus Level 2.2 L Magnesium Level 2.2 Total Bilirubin 0.7 Direct Bilirubin 0.00 Indirect Bilirubin 0.7 Aspartate Amino Transf (AST/SGOT) 741 H Alanine Aminotransferase (ALT/SGPT) 2982 H Alkaline Phosphatase 75 Total Protein 5.8 L Albumin 3.1 L Globulin 2.70 Albumin/Globulin Ratio 1.14 Medications Medication Current Medications IV Flush (NS 3 ml) 3 ml PER PROTOCOL IV ; Start 06/04/18 at 00:00 Ondansetron HCl (Zofran Inj) 4 mg Q6H PRN IV NAUSEA/VOMITING; Start 06/04/18 at 00:00 Acetaminophen (Tylenol Tab) 650 mg Q6H PRN PO .PAIN 1-3 OR TEMP; Start 06/04/18 at 00:00 Docusate Sodium (Colace) 100 mg Q12H PRN PO .CONSTIPATION; Start 06/04/18 at 00:00 Bisacodyl (Dulcolax) 5 mg DAILY PRN PO .CONSTIPATION; Start 06/04/18 at 00:00 Pantoprazole (Protonix Tab) 40 mg DAILY@06 PO Last administered on 06/05/18at 06:26; Admin Dose 40 MG; Start 06/04/18 at 06:00 Levalbuterol (Xopenex Neb) 1.25 mg Q4H RESP THERAPY HHN Last administered on 06/05/18at 07:53; Admin Dose 1.25 MG; Start 06/04/18 at 00:00 Ipratropium [place] (Atrovent 0.02% (Neb)) 0.5 mg Q4H RESP THERAPY HHN Last administered on 06/05/18at 07:52; Admin Dose 0.5 MG; Start 06/04/18 at 01:00 Prednisone (Prednisone) 40 mg DAILY PO Last administered on 06/05/18at 08:43; Admin Dose 40 MG; Start 06/04/18 at 00:00; Stop 06/08/18 at 23:59 Amlodipine Besylate (Norvasc) 5 mg DAILY PO Last administered on 06/05/18 08:43; Admin Dose 5 MG; Start 06/04/18 at 09:00 Baclofen (Lioresal) 10 mg BID PO Last administered on 06/05/18 08:43; Admin Dose 10 MG; Start 06/04/18 at 00:30 Docusate Sodium (Colace) 100 mg BID PO Last administered on 06/05/18 08:44; Admin Dose 100 MG; Start 06/04/18 at 09:00 Hydroxyzine HCl (Atarax) 10 mg TID PO Last administered on 06/05/18 08:44; Admin Dose 10 MG; Start 06/04/18 at 09:00 Fluticasone/ Vilanterol (Breo Ellipta 100-25 Mcg Inh) 1 inh DAILY INH Last administered on 06/05/18 08:44; Admin Dose 1 INH; Start 06/04/18 at 09:00 Miscellaneous Information (Pending [facility] Order For Wound Care) This patient savage... PRN PRN XX WOUND CARE; Start 06/04/18 at 03:00 Cefepime HCl 50 ml @ 100 mls/hr Q12 IVPB Last administered on 06/05/18 08:44; Admin Dose 100 MLS/HR; Start 06/04/18 at 09:30 Sertraline HCl (Zoloft) 100 mg DAILY PO Last administered on 06/05/18 08:44; Admin Dose 100 MG; Start 06/04/18 at 10:00 Rifaximin (Xifaxan) 550 mg BID PO Last administered on 06/05/18 08:44; Admin Dose 550 MG; Start 06/04/18 at 11:30 Aspirin (Aspirin) 81 mg DAILY PO Last administered on 06/05/18 08:44; Admin Dose 81 MG; Start 06/05/18 at 09:00 Lactulose (Enulose) 30 gm Q8 PO ; Start 06/05/18 at 14:00 ZHANG WARE NP Jun 05, 2018 11:12
[2018-06-06] VITALS (12 sets, daily range): BP systolic 103–116; BP diastolic 60–73; PULSE 13–89; RESP 18
[2018-06-06] MEDS: IPRATROPIUM (NEB) 0.5 MG/2.5 ML AMP HHN SCH ×6 (00:19→23:03)
[2018-06-06] MEDS: LEVALBUTEROL (NEB) 1.25 MG/0.5 ML AMP HHN SCH ×6 (00:20→23:04)
[2018-06-06] MEDS: LACTULOSE 30ML CUP PO SCH ×3 (06:00→22:00)
[2018-06-06] MEDS: PANTOPRAZOLE (EC) 40 MG TAB PO SCH (06:16)
[2018-06-06] MEDS: SERTRALINE 100 MG TAB PO SCH (09:16)
[2018-06-06] MEDS: DOCUSATE SODIUM 100 MG CAP PO SCH ×2 (09:16→20:29)
[2018-06-06] MEDS: RIFAXIMIN 550 MG TAB PO SCH ×2 (09:16→20:29)
[2018-06-06] MEDS: ASPIRIN 81 MG TAB PO SCH (09:16)
[2018-06-06] MEDS: hydrOXYzine HCL 10 MG TAB PO SCH ×3 (09:16→20:28)
[2018-06-06] MEDS: CEFEPIME 1GM/50 ML (PMX) 50 ML IVPB SCH ×2 (09:17→20:30)
[2018-06-06] MEDS: FLUTICASONE/VILANTEROL 100-25 INH SCH (09:17)
[2018-06-06] MEDS: BACLOFEN 10 MG TAB PO SCH ×2 (09:17→20:29)
[2018-06-06] MEDS: predniSONE 20 MG TAB PO SCH (09:17)
[2018-06-06] MEDS: AMLODIPINE 5 MG TAB PO SCH (09:17)
--- NOTE | 2018-06-06 11:22 | CONS ---
Assessment/Plan Assessment/Plan Hospital Course (Demo Recall) NSTEMI: trop 2 at [facility]. Downtrended. EF preserved. No symptoms. Not an interventional candidate with her comorbidities, thrombocytopenia, coagulapathy, noncompliance Acute renal failure: Cr 2.4 with hyperkalemia on admission. Improved Acute liver failure: AST/ALT 6000s, Improving Acute on chronic respiratory failure: due to COPD, resolved Acute on chronic COPD exacerbation Pulm HTN: PAP 60s Hep C and alcohol cirrhosis coagulopathy/thrombocytopenia heroin use -ASA with holding parameters -no statin with transaminitis -no BB for now with severe COPD -amlodipine 5mg Consultation Date/Type/Reason Admit Date/Time Jun 03, 2018 at 22:06 Initial Consult Date 06/04/18 Type of Consult Cardiology Requesting Provider: ZHANG WARE NP Date/Time of Note DATE: 06/06/18 TIME: 11:21 24 HR Interval Summary Free Text/Dictation No events. Upset and wants gregory removed Exam/Review of Systems Vital Signs Vitals Vital Signs Date Temp Pulse Resp B/P (MAP) Pulse Ox O2 O2 Flow FiO2 Time Delivery Rate 06/06/18 75 20 96 Nasal 2.0 09:09 Cannula 06/06/18 98.0 112/73 07:50 (86) Intake and Output 06/05/18 06/05/18 06/06/18 1515:00 23:00 07:00 IntakeIntake Total 460 ml 650 ml 600 ml OutputOutput Total 800 ml 800 ml 700 ml BalanceBalance -340 ml -150 ml -100 ml Exam Constitutional: alert, oriented Neck: supple; No jvd Respiratory: diminished breath sounds; No clear to auscultation Cardiovascular: regular rate and rhythm; No edema, No systolic murmur Gastrointestinal: soft, non-tender; No distended Neurological: nl mental status, nl speech Labs Result Diagram: 06/06/1851206/06/18512 Results 24hrs Laboratory Tests Test 06/06/18 05:13 White Blood Count 14.5 #H Red Blood Count 4.16 L Hemoglobin 12.9 Hematocrit 42.3 Mean Corpuscular Volume 101.7 H Mean Corpuscular Hemoglobin 31.0 Mean Corpuscular Hemoglobin Concent 30.5 L Red Cell Distribution Width 17.4 H Platelet Count 109 L Mean Platelet Volume 12.4 H Immature Granulocytes % 0.400 Neutrophils % 87.2 H Lymphocytes % 5.4 L Monocytes % 7.0 Eosinophils % 0.0 Basophils % 0.0 Nucleated Red Blood Cells % 0.2 H Immature Granulocytes # 0.060 H Neutrophils # 12.6 H Lymphocytes # 0.8 Monocytes # 1.0 H Eosinophils # 0.0 Basophils # 0.0 Nucleated Red Blood Cells # 0.0 Sodium Level 144 Potassium Level 3.7 Chloride Level 106 Carbon Dioxide Level 32 H Anion Gap 6 Blood Urea Nitrogen 36 H Creatinine 0.80 Est Glomerular Filtrat Rate mL/min > 60 Glucose Level 104 Calcium Level 8.1 L Phosphorus Level 1.4 L Magnesium Level 2.3 Total Bilirubin 0.8 Direct Bilirubin 0.00 Indirect Bilirubin 0.8 Aspartate Amino Transf (AST/SGOT) 293 H Alanine Aminotransferase (ALT/SGPT) 2132 H Alkaline Phosphatase 78 Total Protein 5.9 L Albumin 3.2 L Globulin 2.70 Albumin/Globulin Ratio 1.18 Medications Medications Current Medications IV Flush (NS 3 ml) 3 ml PER PROTOCOL IV ; Start 06/04/18 at 00:00 Ondansetron HCl (Zofran Inj) 4 mg Q6H PRN IV NAUSEA/VOMITING; Start 06/04/18 at 00:00 Acetaminophen (Tylenol Tab) 650 mg Q6H PRN PO .PAIN 1-3 OR TEMP; Start 06/04/18 at 00:00 Docusate Sodium (Colace) 100 mg Q12H PRN PO .CONSTIPATION; Start 06/04/18 at 00:00 Bisacodyl (Dulcolax) 5 mg DAILY PRN PO .CONSTIPATION; Start 06/04/18 at 00:00 Pantoprazole (Protonix Tab) 40 mg DAILY@06 PO Last administered on 06/06/18 06:16; Admin Dose 40 MG; Start 06/04/18 at 06:00 Levalbuterol (Xopenex Neb) 1.25 mg Q4H RESP THERAPY HHN Last administered on 06/06/18at 09:08; Admin Dose 1.25 MG; Start 06/04/18 at 00:00 Ipratropium [place] (Atrovent 0.02% (Neb)) 0.5 mg Q4H RESP THERAPY HHN Last administered on 06/06/18 09:08; Admin Dose 0.5 MG; Start 06/04/18 at 01:00 Amlodipine Besylate (Norvasc) 5 mg DAILY PO Last administered on 06/06/18 09:17; Admin Dose 5 MG; Start 06/04/18 at 09:00 Baclofen (Lioresal) 10 mg BID PO Last administered on 06/06/18 09:17; Admin Dose 10 MG; Start 06/04/18 at 00:30 Docusate Sodium (Colace) 100 mg BID PO Last administered on 06/06/18 09:16; Adm in Dose 100 MG; Start 06/04/18 at 09:00 Hydroxyzine HCl (Atarax) 10 mg TID PO Last administered on 06/06/18 09:16; Admin Dose 10 MG; Start 06/04/18 at 09:00 Fluticasone/ Vilanterol (Breo Ellipta 100-25 Mcg Inh) 1 inh DAILY INH Last administered on 06/06/18:17; Admin Dose 1 INH; Start 06/04/18 at 09:00 Miscellaneous Information (Pending [facility] Order For Wound Care) This patient savage... PRN PRN XX WOUND CARE; Start 06/04/18 at 03:00 Cefepime HCl 50 ml @ 100 mls/hr Q12 IVPB Last administered on 06/06/18 09:17; Admin Dose 100 MLS/HR; Start 06/04/18 at 09:30 Sertraline HCl (Zoloft) 100 mg DAILY PO Last administered on 06/06/18 09:16; Admin Dose 100 MG; Start 06/04/18 at 10:00 Rifaximin (Xifaxan) 550 mg BID PO Last administered on 06/06/18 09:16; Admin Dose 550 MG; Start 06/04/18 at 11:30 Aspirin (Aspirin) 81 mg DAILY PO Last administered on 06/06/18 09:16; Admin Dose 81 MG; Start 06/05/18 at 09:00 Lactulose (Enulose) 30 gm Q8 PO Last administered on 06/05/18 21:02; Admin Dose 30 GM; Start 06/05/18 at 14:00 Prednisone (Prednisone) 20 mg DAILY PO Last administered on 06/06/18 09:17; Admin Dose 20 MG; Start 06/06/18 at 09:00 WILFRID OCAMPO Jun 06, 2018 11:22
[2018-06-06] MEDS ORDERED: METHADONE 10 MG TAB PO ONE (14:30)
--- NOTE | 2018-06-06 15:11 | PN ---
Date/Time of Note Date/Time of Note DATE: 06/06/18 TIME: 15:08 Assessment/Plan VTE Prophylaxis Risk score (from Ns)>0 risk: 4 SCD applied (from Ns): Yes SCD contraindicated: low risk/ambulating Pharmacological prophylaxis: LMWH Lines/Catheters [facility] (from [facility]): Peripheral IV Urinary Cath still in place: Yes Reason Cath still needed: urinary retention Assessment/Plan Hospital Course ` Assessment plan 1. Severe sepsis secondary to pneumonia? Stable improved Taper off O2 2. Suspected infection/community acquired pneumonia, stable finish antibiotics 3. End STEMI, stable, continue medical management. Not a candidate for cath 4. Nonadherence, counseled 5. Methadone use/chronic pain stable observe 6. Past heroin and meth 7. Failure to thrive 8. Chronic COPD? 9. Past tobacco 10. Abnormal LFTs, avoid statin for now 11. Dysphagia? 12. Hepatitis C viremia 13. Pulmonary hypertension/cor pulmonale? 14. Chronic respiratory failure on home O2? 15. Abnormal chest x-ray? Subjective: No distress occasional cough without any hemoptysis. No chest pain fever. Objective: Vital signs stable sinus rhythm Physical exam No pallor JVD Regular no murmur gallop Scattered wheeze no tachypnea Bowel sounds present nontender nd no RRG No edema//Homans Result Diagram: 06/06/18 0513 06/06/18 0513 Results 24hrs Laboratory Tests Test 06/06/18 05:13 White Blood Count 14.5 #H Red Blood Count 4.16 L Hemoglobin 12.9 Hematocrit 42.3 Mean Corpuscular Volume 101.7 H Mean Corpuscular Hemoglobin 31.0 Mean Corpuscular Hemoglobin Concent 30.5 L Red Cell Distribution Width 17.4 H Platelet Count 109 L Mean Platelet Volume 12.4 H Immature Granulocytes % 0.400 Neutrophils % 87.2 H Lymphocytes % 5.4 L Monocytes % 7.0 Eosinophils % 0.0 Basophils % 0.0 Nucleated Red Blood Cells % 0.2 H Immature Granulocytes # 0.060 H Neutrophils # 12.6 H Lymphocytes # 0.8 Monocytes # 1.0 H Eosinophils # 0.0 Basophils # 0.0 Nucleated Red Blood Cells # 0.0 Sodium Level 144 Potassium Level 3.7 Chloride Level 106 Carbon Dioxide Level 32 H Anion Gap 6 Blood Urea Nitrogen 36 H Creatinine 0.80 Est Glomerular Filtrat Rate mL/min > 60 Glucose Level 104 Calcium Level 8.1 L Phosphorus Level 1.4 L Magnesium Level 2.3 Total Bilirubin 0.8 Direct Bilirubin 0.00 Indirect Bilirubin 0.8 Aspartate Amino Transf (AST/SGOT) 293 H Alanine Aminotransferase (ALT/SGPT) 2132 H Alkaline Phosphatase 78 Total Protein 5.9 L Albumin 3.2 L Globulin 2.70 Albumin/Globulin Ratio 1.18 Exam/Review of Systems Exam Vitals Vital Signs Date Temp Pulse Resp B/P (MAP) Pulse Ox O2 O2 Flow FiO2 Time Delivery Rate 06/06/18 2.0 14:17 06/06/18 77 20 Nasal 14:13 Cannula 06/06/18 98.3 116/71 98 11:52 (86) Intake and Output 06/05/18 06/05/18 06/06/18 1515:00 23:00 07:00 IntakeIntake Total 460 ml 650 ml 600 ml OutputOutput Total 800 ml 800 ml 700 ml BalanceBalance -340 ml -150 ml -100 ml Results Results 24hrs Laboratory Tests Test 06/06/18 05:13 White Blood Count 14.5 #H Red Blood Count 4.16 L Hemoglobin 12.9 Hematocrit 42.3 Mean Corpuscular Volume 101.7 H Mean Corpuscular Hemoglobin 31.0 Mean Corpuscular Hemoglobin Concent 30.5 L Red Cell Distribution Width 17.4 H Platelet Count 109 L Mean Platelet Volume 12.4 H Immature Granulocytes % 0.400 Neutrophils % 87.2 H Lymphocytes % 5.4 L Monocytes % 7.0 Eosinophils % 0.0 Basophils % 0.0 Nucleated Red Blood Cells % 0.2 H Immature Granulocytes # 0.060 H Neutrophils # 12.6 H Lymphocytes # 0.8 Monocytes # 1.0 H Eosinophils # 0.0 Basophils # 0.0 Nucleated Red Blood Cells # 0.0 Sodium Level 144 Potassium Level 3.7 Chloride Level 106 Carbon Dioxide Level 32 H Anion Gap 6 Blood Urea Nitrogen 36 H Creatinine 0.80 Est Glomerular Filtrat Rate mL/min > 60 Glucose Level 104 Calcium Level 8.1 L Phosphorus Level 1.4 L Magnesium Level 2.3 Total Bilirubin 0.8 Direct Bilirubin 0.00 Indirect Bilirubin 0.8 Aspartate Amino Transf (AST/SGOT) 293 H Alanine Aminotransferase (ALT/SGPT) 2132 H Alkaline Phosphatase 78 Total Protein 5.9 L Albumin 3.2 L Globulin 2.70 Albumin/Globulin Ratio 1.18 Medications Medication Current Medications IV Flush (NS 3 ml) 3 ml PER PROTOCOL IV ; Start 06/04/18 at 00:00 Ondansetron HCl (Zofran Inj) 4 mg Q6H PRN IV NAUSEA/VOMITING; Start 06/04/18 at 00:00 Acetaminophen (Tylenol Tab) 650 mg Q6H PRN PO .PAIN 1-3 OR TEMP; Start 06/04/18 at 00:00 Docusate Sodium (Colace) 100 mg Q12H PRN PO .CONSTIPATION; Start 06/04/18 at 00:00 Bisacodyl (Dulcolax) 5 mg DAILY PRN PO .CONSTIPATION; Start 06/04/18 at 00:00 Pantoprazole (Protonix Tab) 40 mg DAILY@06 PO Last administered on 06/06/18 06:16; Admin Dose 40 MG; Start 06/04/18 at 06:00 Amlodipine Besylate (Norvasc) 5 mg DAILY PO Last administered on 06/06/18 09:17; Admin Dose 5 MG; Start 06/04/18 at 09:00 Baclofen (Lioresal) 10 mg BID PO Last administered on 06/06/18 09:17; Admin Dose 10 MG; Start 06/04/18 at 00:30 Docusate Sodium (Colace) 100 mg BID PO Last administered on 06/06/18 09:16; Admin Dose 100 MG; Start 06/04/18 at 09:00 Hydroxyzine HCl (Atarax) 10 mg TID PO Last administered on 06/06/18 13:04; Admin Dose 10 MG; Start 06/04/18 at 09:00 Fluticasone/ Vilanterol (Breo Ellipta 100-25 Mcg Inh) 1 inh DAILY INH Last administered on 06/06/18 09:17; Admin Dose 1 INH; Start 06/04/18 at 09:00 Miscellaneous Information (Pending Santyl Order For Wound Care) This patient savage... PRN PRN XX WOUND CARE; Start 06/04/18 at 03:00 Cefepime HCl 50 ml @ 100 mls/hr Q12 IVPB Last administered on 06/06/18 09:17; Admin Dose 100 MLS/HR; Start 06/04/18 at 09:30 Rifaximin (Xifaxan) 550 mg BID PO Last administered on 06/06/18at 09:16; Admin Dose 550 MG; Start 06/04/18 at 11:30 Lactulose (Enulose) 30 gm Q8 PO Last administered on 06/05/18at 21:02; Admin Dose 30 GM; Start 06/05/18 at 14:00 Prednisone (Prednisone) 20 mg DAILY PO Last administered on 06/06/18at 09:17; Admin Dose 20 MG; Start 06/06/18 at 09:00 Ipratropium [place] (Atrovent 0.02% (Neb)) 0.5 mg Q8H RESP THERAPY N ; Start 06/06/18 at 16:00 Levalbuterol (Xopenex Neb) 1.25 mg Q8H RESP THERAPY HHN ; Start 06/06/18 at 16:00 Sertraline HCl (Zoloft) 50 mg DAILY PO ; Start 06/07/18 at 09:00 Aspirin (Halfprin) 81 mg DAILY PO ; Start 06/07/18 at 09:00 Methadone HCl (Methadone Liq) 68 mg DAILY PO ; Start 06/06/18 at 15:30 RICKIE DALTON MD Jun 06, 2018 15:11
[2018-06-06] MEDS ORDERED: POTASSIUM PHOSPHATE 15 MM in SOD CHLORIDE 0.9% 250 ML IVPB ONE (15:30)
[2018-06-06] MEDS: METHADONE (1 MG/ML 5 ML PO UD SYG) PO SCH (15:31)
--- NOTE | 2018-06-06 16:35 | PN ---
Date/Time of Note Date/Time of Note DATE: 06/06/18 TIME: 16:30 Assessment/Plan VTE Prophylaxis Risk score (from Ns)>0 risk: 4 SCD applied (from Ns): Yes Pharmacological prophylaxis: other (scds) Lines/Catheters [facility] Type (from [facility]): Peripheral IV Urinary Cath still in place: Yes Reason Cath still needed: other (indicate) (monitor output) Assessment/Plan Hospital Course Assessment/Plan Assessment: Transaminitis- trending down --Likely multifactorial -Liver shock from NSTEMI -ETOH abuse -Poss Hep C (Hep C AB +- RNA pending) Metabolic encephalopathy Leukocytosis Hepatitis C versus alcoholic liver cirrhosis Coagulopathy COPD Hypertension Chronic kidney disease Alcohol abuse Heroin abuse -on methadone Plan: Continue rifaximin/lactulose-titrate to 3 bowel movements per day Hepatitis C RNA Autoimmune panel -pending Trend LFTs- will also check an AFP- will obtain liver u/s If positive for Hep C- pt to f/u as out-pt for treatment and out-pt endoscopies Patient seen in collaboration with Dr. Campos Subjective: Patient appears lethargic and slightly confused. She denies abdominal pain, nausea or vomiting. Tolerating regular diet well. Resting in bed comfortable, Discussed LFTs results. PHYSICAL EXAMINATION: GENERAL: Cachectic, alert and confused, in no acute distress SKIN: No lesions HEENT: No lesions CHEST: Inspection within normal limits. CARDIOVASCULAR: Heart: Regular rate and rhythm RESPIRATORY: Lungs clear to auscultation GASTROINTESTINAL AND LIVER: Abdomen: Soft, non tenderness, non-distended, no hernias, no masses, no organomegaly, no ascites, no guarding, no rebound tenderness, normoactive bowel sounds. Rectal: Deferred. GENITOURINARY: Female genitalia within normal limits. EXTREMITIES: No cyanosis, clubbing or edema. Result Diagram: 06/06/1851206/06/1813 Results 24hrs Laboratory Tests Test 06/06/18 05:13 White Blood Count 14.5 #H Red Blood Count 4.16 L Hemoglobin 12.9 Hematocrit 42.3 Mean Corpuscular Volume 101.7 H Mean Corpuscular Hemoglobin 31.0 Mean Corpuscular Hemoglobin Concent 30.5 L Red Cell Distribution Width 17.4 H Platelet Count 109 L Mean Platelet Volume 12.4 H Immature Granulocytes % 0.400 Neutrophils % 87.2 H Lymphocytes % 5.4 L Monocytes % 7.0 Eosinophils % 0.0 Basophils % 0.0 Nucleated Red Blood Cells % 0.2 H Immature Granulocytes # 0.060 H Neutrophils # 12.6 H Lymphocytes # 0.8 Monocytes # 1.0 H Eosinophils # 0.0 Basophils # 0.0 Nucleated Red Blood Cells # 0.0 Sodium Level 144 Potassium Level 3.7 Chloride Level 106 Carbon Dioxide Level 32 H Anion Gap 6 Blood Urea Nitrogen 36 H Creatinine 0.80 Est Glomerular Filtrat Rate mL/min > 60 Glucose Level 104 Calcium Level 8.1 L Phosphorus Level 1.4 L Magnesium Level 2.3 Total Bilirubin 0.8 Direct Bilirubin 0.00 Indirect Bilirubin 0.8 Aspartate Amino Transf (AST/SGOT) 293 H Alanine Aminotransferase (ALT/SGPT) 2132 H Alkaline Phosphatase 78 Total Protein 5.9 L Albumin 3.2 L Globulin 2.70 Albumin/Globulin Ratio 1.18 Exam/Review of Systems Exam Vitals Vital Signs Date Temp Pulse Resp B/P (MAP) Pulse Ox O2 O2 Flow FiO2 Time Delivery Rate 06/06/18 98.0 87 18 115/69 97 15:55 (84) 06/06/18 2.0 14:17 06/06/18 Nasal 14:13 Cannula Intake and Output 06/05/18 06/05/18 06/06/18 1515:00 23:00 07:00 IntakeIntake Total 460 ml 650 ml 600 ml OutputOutput Total 800 ml 800 ml 700 ml BalanceBalance -340 ml -150 ml -100 ml Results Results 24hrs Laboratory Tests Test 06/06/18 05:13 White Blood Count 14.5 #H Red Blood Count 4.16 L Hemoglobin 12.9 Hematocrit 42.3 Mean Corpuscular Volume 101.7 H Mean Corpuscular Hemoglobin 31.0 Mean Corpuscular Hemoglobin Concent 30.5 L Red Cell Distribution Width 17.4 H Platelet Count 109 L Mean Platelet Volume 12.4 H Immature Granulocytes % 0.400 Neutrophils % 87.2 H Lymphocytes % 5.4 L Monocytes % 7.0 Eosinophils % 0.0 Basophils % 0.0 Nucleated Red Blood Cells % 0.2 H Immature Granulocytes # 0.060 H Neutrophils # 12.6 H Lymphocytes # 0.8 Monocytes # 1.0 H Eosinophils # 0.0 Basophils # 0.0 Nucleated Red Blood Cells # 0.0 Sodium Level 144 Potassium Level 3.7 Chloride Level 106 Carbon Dioxide Level 32 H Anion Gap 6 Blood Urea Nitrogen 36 H Creatinine 0.80 Est Glomerular Filtrat Rate mL/min > 60 Glucose Level 104 Calcium Level 8.1 L Phosphorus Level 1.4 L Magnesium Level 2.3 Total Bilirubin 0.8 Direct Bilirubin 0.00 Indirect Bilirubin 0.8 Aspartate Amino Transf (AST/SGOT) 293 H Alanine Aminotransferase (ALT/SGPT) 2132 H Alkaline Phosphatase 78 Total Protein 5.9 L Albumin 3.2 L Globulin 2.70 Albumin/Globulin Ratio 1.18 Medications Medication Current Medications IV Flush (NS 3 ml) 3 ml PER PROTOCOL IV ; Start 06/04/18 at 00:00 Ondansetron HCl (Zofran Inj) 4 mg Q6H PRN IV NAUSEA/VOMITING; Start 06/04/18 at 00:00 Acetaminophen (Tylenol Tab) 650 mg Q6H PRN PO .PAIN 1-3 OR TEMP; Start 06/04/18 at 00:00 Docusate Sodium (Colace) 100 mg Q12H PRN PO .CONSTIPATION; Start 06/04/18 at 00:00 Bisacodyl (Dulcolax) 5 mg DAILY PRN PO .CONSTIPATION; Start 06/04/18 at 00:00 Pantoprazole (Protonix Tab) 40 mg DAILY@06 PO Last administered on 06/06/18 06:16; Admin Dose 40 MG; Start 06/04/18 at 06:00 Amlodipine Besylate (Norvasc) 5 mg DAILY PO Last administered on 06/06/18 09:17; Admin Dose 5 MG; Start 06/04/18 at 09:00 Baclofen (Lioresal) 10 mg BID PO Last administered on 06/06/18 09:17; Admin Dose 10 MG; Start 06/04/18 at 00:30 Docusate Sodium (Colace) 100 mg BID PO Last administered on 06/06/18 09:16; Admin Dose 100 MG; Start 06/04/18 at 09:00 Hydroxyzine HCl (Atarax) 10 mg TID PO Last administered on 06/06/18 13:04; Admin Dose 10 MG; Start 06/04/18 at 09:00 Fluticasone/ Vilanterol (Breo Ellipta 100-25 Mcg Inh) 1 inh DAILY INH Last administered on 06/06/18 09:17; Admin Dose 1 INH; Start 06/04/18 at 09:00 Miscellaneous Information (Pending [facility] Order For Wound Care) This patient savage... PRN PRN XX WOUND CARE; Start 06/04/18 at 03:00 Cefepime HCl 50 ml @ 100 mls/hr Q12 IVPB Last administered on 06/06/18 09:17; Admin Dose 100 MLS/HR; Start 06/04/18 at 09:30 Rifaximin (Xifaxan) 550 mg BID PO Last administered on 06/06/18 09:16; Admin Dose 550 MG; Start 06/04/18 at 11:30 Lactulose (Enulose) 30 gm Q8 PO Last administered on 06/05/18 21:02; Admin Dose 30 GM; Start 06/05/18 at 14:00 Prednisone (Prednisone) 20 mg DAILY PO Last administered on 06/06/18 09:17; Admin Dose 20 MG; Start 06/06/18 at 09:00 Ipratropium [place] (Atrovent 0.02% (Neb)) 0.5 mg Q8H RESP THERAPY HHN ; Start 06/06/18 at 16:00 Levalbuterol (Xopenex Neb) 1.25 mg Q8H RESP THERAPY HHN ; Start 06/06/18 at 16:0 0 Sertraline HCl (Zoloft) 50 mg DAILY PO ; Start 06/07/18 at 09:00 Aspirin (Halfprin) 81 mg DAILY PO ; Start 06/07/18 at 09:00 Methadone HCl (Methadone Liq) 68 mg DAILY PO Last administered on 06/06/18at 15:31; Admin Dose 68 MG; Start 06/06/18 at 15:30 Potassium Phosphate 15 mm/ Sodium Chloride 255 ml @ 63.75 mls/ hr ONCE ONCE IVPB ; Start 06/06/18 at 15:30; Stop 06/06/18 at 19:29 BRETT LEAVITT Jun 06, 2018 16:35
[2018-06-07] VITALS (10 sets, daily range): BP systolic 95–136; BP diastolic 63–88; PULSE 69–94; RESP 18
[2018-06-07] MEDS ORDERED: AL HYDROX/MG HYDROX/SIMETH 30 ML CUP PO PRN (01:00)
[2018-06-07] MEDS ORDERED: HALOPERIDOL 5 MG INJ IM ONE (02:00)
[2018-06-07] MEDS ORDERED: LORAZEPAM 2 MG INJ IV ONE (02:00)
[2018-06-07] MEDS: PANTOPRAZOLE (EC) 40 MG TAB PO SCH (05:31)
[2018-06-07] MEDS: LACTULOSE 30ML CUP PO SCH ×3 (05:46→21:01)
[2018-06-07] MEDS: LEVALBUTEROL (NEB) 1.25 MG/0.5 ML AMP HHN SCH ×2 (08:00→16:25)
[2018-06-07] MEDS: IPRATROPIUM (NEB) 0.5 MG/2.5 ML AMP HHN SCH ×2 (08:00→16:25)
[2018-06-07] MEDS: DOCUSATE SODIUM 100 MG CAP PO SCH (08:12)
[2018-06-07] MEDS: BACLOFEN 10 MG TAB PO SCH ×2 (08:12→21:00)
[2018-06-07] MEDS: predniSONE 20 MG TAB PO SCH (08:12)
[2018-06-07] MEDS: AMLODIPINE 5 MG TAB PO SCH (08:13)
[2018-06-07] MEDS: hydrOXYzine HCL 10 MG TAB PO SCH ×4 (08:13→21:00)
[2018-06-07] MEDS: ASPIRIN (EC) 81 MG TAB PO SCH (08:13)
[2018-06-07] MEDS: CEFEPIME 1GM/50 ML (PMX) 50 ML IVPB SCH (08:13)
[2018-06-07] MEDS: SERTRALINE 50 MG TAB PO SCH (08:13)
[2018-06-07] MEDS: RIFAXIMIN 550 MG TAB PO SCH ×2 (08:13→21:00)
[2018-06-07] MEDS: FLUTICASONE/VILANTEROL 100-25 INH SCH (08:14)
[2018-06-07] MEDS: METHADONE (1 MG/ML 5 ML PO UD SYG) PO SCH (10:33)
--- NOTE | 2018-06-07 12:40 | PN ---
Date/Time of Note Date/Time of Note DATE: 06/07/18 TIME: 12:34 Assessment/Plan VTE Prophylaxis Risk score (from Ns)>0 risk: 4 SCD applied (from Ns): Yes Pharmacological prophylaxis: other (scds) Lines/Catheters [facility] C[facility] Type (from [facility] Peripheral IV Urinary Cath still in place: No Assessment/Plan Hospital Course Assessment/Plan Assessment: Transaminitis- trending down --Likely multifactorial -Liver shock from underlying cardiac etiology -Hx of ETOH use -Hep C (Hep C AB +, RNA [id number]) Metabolic encephalopathy- improved Leukocytosis- on prednisone Questionable Liver cirrhosis - AFP 4.95 -Liver us - Liver is normal in echogenicity and measures 12.6 cm Coagulopathy Thrombocytopenia COPD Hypertension Chronic kidney disease History of alcohol use- per pt/family quit over 1 year ago Heroin abuse -on methadone Plan: Continue rifaximin/lactulose-titrate to 3 bowel movements per day Autoimmune panel -BLAKE- pending, ASMA negative, AMA- negative Pt to f/u as out-pt for Hepatitis C treatment and out-pt endoscopies Patient seen in collaboration with Dr. Campos Subjective: Patient appears lethargic and slightly confused. She denies abdominal pain, nausea or vomiting. Tolerating regular diet well. Resting in bed comfortable, Discussed LFTs results. No over night events. Daughter at bedside. PHYSICAL EXAMINATION: GENERAL: Cachectic, alert and confused, in no acute distress SKIN: No lesions HEENT: No lesions CHEST: Inspection within normal limits. CARDIOVASCULAR: Heart: Regular rate and rhythm RESPIRATORY: Lungs clear to auscultation GASTROINTESTINAL AND LIVER: Abdomen: Soft, non tenderness, non-distended, no hernias, no masses, no organomegaly, no ascites, no guarding, no rebound tenderness, normoactive bowel sounds. Rectal: Deferred. GENITOURINARY: Female genitalia within normal limits. EXTREMITIES: No cyanosis, clubbing or edema. Result Diagram: 06/07/1852806/07/18528 Results 24hrs Laboratory Tests Test 06/07/18 05:29 06/07/18 11:39 White Blood Count 11.9 H Red Blood Count 4.14 L Hemoglobin 12.8 Hematocrit 42.1 Mean Corpuscular Volume 101.7 H Mean Corpuscular Hemoglobin 30.9 Mean Corpuscular Hemoglobin Concent 30.4 L Red Cell Distribution Width 17.0 H Platelet Count 108 L Mean Platelet Volume 11.9 H Immature Granulocytes % 0.400 Neutrophils % 81.6 H Lymphocytes % 10.7 L Monocytes % 6.8 Eosinophils % 0.3 Basophils % 0.2 Nucleated Red Blood Cells % 0.2 H Immature Granulocytes # 0.050 H Neutrophils # 9.7 H Lymphocytes # 1.3 Monocytes # 0.8 Eosinophils # 0.0 Basophils # 0.0 Nucleated Red Blood Cells # 0.0 Sodium Level 140 Potassium Level 4.3 Chloride Level 104 Carbon Dioxide Level 32 H Anion Gap 4 L Blood Urea Nitrogen 26 H Creatinine 0.73 Est Glomerular Filtrat Rate mL/min > 60 Glucose Level 75 Hemoglobin A1c 5.3 Calcium Level 7.8 L Total Bilirubin 1.2 Direct Bilirubin 0.00 Indirect Bilirubin 1.2 H Aspartate Amino Transf (AST/SGOT) 146 H Alanine Aminotransferase (ALT/SGPT) 1442 H Alkaline Phosphatase 68 Total Protein 5.6 L Albumin 3.0 L Globulin 2.60 Albumin/Globulin Ratio 1.15 Alpha Fetoprotein 4.95 Thyroid Stimulating Hormone (TSH) 1.770 Lab Scanned Report REFERENCE LAB Exam/Review of Systems Exam Vitals Vital Signs Date Temp Pulse Resp B/P (MAP) Pulse Ox O2 O2 Flow FiO2 Time Delivery Rate 06/07/18 97.3 87 18 131/78 97 11:41 (95) 06/07/18 Nasal 2.0 07:52 Cannula Intake and Output 06/06/18 06/06/18 06/07/18 1515:00 23:00 07:00 IntakeIntake Total 50 ml OutputOutput Total 500 ml BalanceBalance -450 ml Results Results 24hrs Laboratory Tests Test 06/07/18 05:29 06/07/18 11:39 White Blood Count 11.9 H Red Blood Count 4.14 L Hemoglobin 12.8 Hematocrit 42.1 Mean Corpuscular Volume 101.7 H Mean Corpuscular Hemoglobin 30.9 Mean Corpuscular Hemoglobin Concent 30.4 L Red Cell Distribution Width 17.0 H Platelet Count 108 L Mean Platelet Volume 11.9 H Immature Granulocytes % 0.400 Neutrophils % 81.6 H Lymphocytes % 10.7 L Monocytes % 6.8 Eosinophils % 0.3 Basophils % 0.2 Nucleated Red Blood Cells % 0.2 H Immature Granulocytes # 0.050 H Neutrophils # 9.7 H Lymphocytes # 1.3 Monocytes # 0.8 Eosinophils # 0.0 Basophils # 0.0 Nucleated Red Blood Cells # 0.0 Sodium Level 140 Potassium Level 4.3 Chloride Level 104 Carbon Dioxide Level 32 H Anion Gap 4 L Blood Urea Nitrogen 26 H Creatinine 0.73 Est Glomerular Filtrat Rate mL/min > 60 Glucose Level 75 Hemoglobin A1c 5.3 Calcium Level 7.8 L Total Bilirubin 1.2 Direct Bilirubin 0.00 Indirect Bilirubin 1.2 H Aspartate Amino Transf (AST/SGOT) 146 H Alanine Aminotransferase (ALT/SGPT) 1442 H Alkaline Phosphatase 68 Total Protein 5.6 L Albumin 3.0 L Globulin 2.60 Albumin/Globulin Ratio 1.15 Alpha Fetoprotein 4.95 Thyroid Stimulating Hormone (TSH) 1.770 Lab Scanned Report REFERENCE LAB Medications Medication Current Medications IV Flush (NS 3 ml) 3 ml PER PROTOCOL IV ; Start 06/04/18 at 00:00 Ondansetron HCl (Zofran Inj) 4 mg Q6H PRN IV NAUSEA/VOMITING; Start 06/04/18 at 00:00 Acetaminophen (Tylenol Tab) 650 mg Q6H PRN PO .PAIN 1-3 OR TEMP; Start 06/04/18 at 00:00 Docusate Sodium (Colace) 100 mg Q12H PRN PO .CONSTIPATION; Start 06/04/18 at 00:00 Bisacodyl (Dulcolax) 5 mg DAILY PRN PO .CONSTIPATION; Start 06/04/18 at 00:00 Pantoprazole (Protonix Tab) 40 mg DAILY@06 PO Last administered on 06/07/18 05:31; Admin Dose 40 MG; Start 06/04/18 at 06:00 Amlodipine Besylate (Norvasc) 5 mg DAILY PO Last administered on 06/07/18 08:13; Admin Dose 5 MG; Start 06/04/18 at 09:00 Baclofen (Lioresal) 10 mg BID PO Last administered on 06/07/18 08:12; Admin Dose 10 MG; Start 06/04/18 at 00:30 Docusate Sodium (Colace) 100 mg BID PO Last administered on 06/07/18 08:12; Admin Dose 100 MG; Start 06/04/18 at 09:00 Hydroxyzine HCl (Atarax) 10 mg TID PO Last administered on 06/07/18 08:13; Admin Dose 10 MG; Start 06/04/18 at 09:00 Fluticasone/ Vilanterol (Breo Ellipta 100-25 Mcg Inh) 1 inh DAILY INH Last administered on 06/07/18 08:14; Admin Dose 1 INH; Start 06/04/18 at 09:00 Miscellaneous Information (Pending Santyl Order For Wound Care) This patient savage... PRN PRN XX WOUND CARE; Start 06/04/18 at 03:00 Cefepime HCl 50 ml @ 100 mls/hr Q12 IVPB Last administered on 06/07/18 08:13; Admin Dose 100 MLS/HR; Start 06/04/18 at 09:30 Rifaximin (Xifaxan) 550 mg BID PO Last administered on 06/07/18 08:13; Admin Dose 550 MG; Start 06/04/18 at 11:30 Lactulose (Enulose) 30 gm Q8 PO Last administered on 06/07/18 05:46; Admin Dose 30 GM; Start 06/05/18 at 14:00 Prednisone (Prednisone) 20 mg DAILY PO Last administered on 06/07/18 08:12; Admin Dose 20 MG; Start 06/06/18 at 09:00 Ipratropium [place] (Atrovent 0.02% (Neb)) 0.5 mg Q8H RESP THERAPY HHN Last administered on 06/06/18 23:03; Admin Dose 0.5 MG; Start 06/06/18 at 16:00 Levalbuterol (Xopenex Neb) 1.25 mg Q8H RESP THERAPY HHN Last administered on 06/06/18 23:04; Admin Dose 1.25 MG; Start 06/06/18 at 16:00 Sertraline HCl (Zoloft) 50 mg DAILY PO Last administered on 06/07/18 08:13; Admin Dose 50 MG; Start 06/07/18 at 09:00 Aspirin (Halfprin) 81 mg DAILY PO Last administered on 06/07/18 08:13; Admin Dose 81 MG; Start 06/07/18 at 09:00 Methadone HCl (Methadone Liq) 68 mg DAILY PO Last administered on 06/07/18 10:33; Admin Dose 68 MG; Start 4/8/19 at 15:30 Simethicone (Mylicon) 160 mg Q6H PRN PO DISTENSION/GAS/BLOATING Last administered on 06/07/18at 01:59; Admin Dose 160 MG; Start 06/07/18 at 01:00 Al Hydrox/Mg Hydrox/Simethicone (Mag-Al Plus) 30 ml Q6H PRN PO GASTROINTESTINAL UPSET; Start 06/07/18 at 01:00 BRETT LEAVITT Jun 07, 2018 12:40
--- NOTE | 2018-06-07 12:45 | PN ---
Date/Time of Note Date/Time of Note DATE: 06/07/18 TIME: 12:42 Assessment/Plan VTE Prophylaxis Risk score (from Ns)>0 risk: 4 [place] [facility] Yes SCD contraindicated: low risk/ambulating Pharmacological prophylaxis: LMWH Lines/Catheters IV [facility]ter Type (from [facility]): Peripheral IV Urinary Cath still in place: No Assessment/Plan Hospital Course ` Assessment plan 1. Severe sepsis secondary to pneumonia? Stable improved, Taper off O2 2. Suspected infection/community acquired pneumonia, stable finish antibiotics 3. NSTEMI, stable, continue medical management. Not a candidate for cath 4. Nonadherence, counseled 5. Methadone use/chronic pain stable observe 6. Past heroin and meth 7. Failure to thrive PT home health safety on discharge. Will update family 8. Chronic COPD? 9. Past tobacco 10. Abnormal LFTs, avoid statin for now 11. Dysphagia? 12. Hepatitis C viremia 13. Pulmonary hypertension/cor pulmonale? 14. Chronic respiratory failure on home O2? 15. Abnormal chest x-ray? 16. Acute psychosis? Continue reorientation and reassurance. Haldol as needed. Check ammonia level 17. Dilated CBD, unchanged according to radiology/appears similar to previous imaging S: 06/06 no distress occasional cough without any hemoptysis. No chest pain fever. 06/07: No distress. Agitated overnight. Presently follows commands no chest pain fever O: Vss; sinus rhythm PE No pallor JVD Reg no mrg Scattered wheeze no tachypnea Bowel sounds present nt nd no RRG No edema//Homans Nonfocal Result Diagram: 06/07/18 0529 06/07/18 0529 Results 24hrs Laboratory Tests Test 06/07/18 05:29 06/07/18 11:39 White Blood Count 11.9 H Red Blood Count 4.14 L Hemoglobin 12.8 Hematocrit 42.1 Mean Corpuscular Volume 101.7 H Mean Corpuscular Hemoglobin 30.9 Mean Corpuscular Hemoglobin Concent 30.4 L Red Cell Distribution Width 17.0 H Platelet Count 108 L Mean Platelet Volume 11.9 H Immature Granulocytes % 0.400 Neutrophils % 81.6 H Lymphocytes % 10.7 L Monocytes % 6.8 Eosinophils % 0.3 Basophils % 0.2 Nucleated Red Blood Cells % 0.2 H Immature Granulocytes # 0.050 H Neutrophils # 9.7 H Lymphocytes # 1.3 Monocytes # 0.8 Eosinophils # 0.0 Basophils # 0.0 Nucleated Red Blood Cells # 0.0 Sodium Level 140 Potassium Level 4.3 Chloride Level 104 Carbon Dioxide Level 32 H Anion Gap 4 L Blood Urea Nitrogen 26 H Creatinine 0.73 Est Glomerular Filtrat Rate mL/min > 60 Glucose Level 75 Hemoglobin A1c 5.3 Calcium Level 7.8 L Total Bilirubin 1.2 Direct Bilirubin 0.00 Indirect Bilirubin 1.2 H Aspartate Amino Transf (AST/SGOT) 146 H Alanine Aminotransferase (ALT/SGPT) 1442 H Alkaline Phosphatase 68 Total Protein 5.6 L Albumin 3.0 L Globulin 2.60 Albumin/Globulin Ratio 1.15 Alpha Fetoprotein 4.95 Thyroid Stimulating Hormone (TSH) 1.770 Lab Scanned Report REFERENCE LAB Exam/Review of Systems Exam Vitals Vital Signs Date Temp Pulse Resp B/P (MAP) Pulse Ox O2 O2 Flow FiO2 Time Delivery Rate 06/07/18 97.3 87 18 131/78 97 11:41 (95) 06/07/18 Nasal 2.0 07:52 Cannula Intake and Output 06/06/18 06/06/18 06/07/18 1515:00 23:00 07:00 IntakeIntake Total 50 ml OutputOutput Total 500 ml BalanceBalance -450 ml Results Results 24hrs Laboratory Tests Test 06/07/18 05:29 06/07/18 11:39 White Blood Count 11.9 H Red Blood Count 4.14 L Hemoglobin 12.8 Hematocrit 42.1 Mean Corpuscular Volume 101.7 H Mean Corpuscular Hemoglobin 30.9 Mean Corpuscular Hemoglobin Concent 30.4 L Red Cell Distribution Width 17.0 H Platelet Count 108 L Mean Platelet Volume 11.9 H Immature Granulocytes % 0.400 Neutrophils % 81.6 H Lymphocytes % 10.7 L Monocytes % 6.8 Eosinophils % 0.3 Basophils % 0.2 Nucleated Red Blood Cells % 0.2 H Immature Granulocytes # 0.050 H Neutrophils # 9.7 H Lymphocytes # 1.3 Monocytes # 0.8 Eosinophils # 0.0 Basophils # 0.0 Nucleated Red Blood Cells # 0.0 Sodium Level 140 Potassium Level 4.3 Chloride Level 104 Carbon Dioxide Level 32 H Anion Gap 4 L Blood Urea Nitrogen 26 H Creatinine 0.73 Est Glomerular Filtrat Rate mL/min > 60 Glucose Level 75 Hemoglobin A1c 5.3 Calcium Level 7.8 L Total Bilirubin 1.2 Direct Bilirubin 0.00 Indirect Bilirubin 1.2 H Aspartate Amino Transf (AST/SGOT) 146 H Alanine Aminotransferase (ALT/SGPT) 1442 H Alkaline Phosphatase 68 Total Protein 5.6 L Albumin 3.0 L Globulin 2.60 Albumin/Globulin Ratio 1.15 Alpha Fetoprotein 4.95 Thyroid Stimulating Hormone (TSH) 1.770 Lab Scanned Report REFERENCE LAB Medications Medication Current Medications IV Flush (NS 3 ml) 3 ml PER PROTOCOL IV ; Start 06/04/18 at 00:00 Ondansetron HCl (Zofran Inj) 4 mg Q6H PRN IV NAUSEA/VOMITING; Start 06/04/18 at 00:00 Acetaminophen (Tylenol Tab) 650 mg Q6H PRN PO .PAIN 1-3 OR TEMP; Start 06/04/18 at 00:00 Docusate Sodium (Colace) 100 mg Q12H PRN PO .CONSTIPATION; Start 06/04/18 at 00:00 Bisacodyl (Dulcolax) 5 mg DAILY PRN PO .CONSTIPATION; Start 06/04/18 at 00:00 Pantoprazole (Protonix Tab) 40 mg DAILY@06 PO Last administered on 06/07/18at 05:31; Admin Dose 40 MG; Start 06/04/18 at 06:00 Amlodipine Besylate (Norvasc) 5 mg DAILY PO Last administered on 06/07/18 08:13; Admin Dose 5 MG; Start 06/04/18 at 09:00 Baclofen (Lioresal) 10 mg BID PO Last administered on 06/07/18 08:12; Admin Dose 10 MG; Start 06/04/18 at 00:30 Docusate Sodium (Colace) 100 mg BID PO Last administered on 06/07/18 08:12; Admin Dose 100 MG; Start 06/04/18 at 09:00 Hydroxyzine HCl (Atarax) 10 mg TID PO Last administered on 06/07/18 08:13; Admin Dose 10 MG; Start 06/04/18 at 09:00 Fluticasone/ Vilanterol (Breo Ellipta 100-25 Mcg Inh) 1 inh DAILY INH Last administered on 06/07/18 08:14; Admin Dose 1 INH; Start 06/04/18 at 09:00 [facility] This patient savage... PRN PRN XX WOUND CARE; Start 06/04/18 at 03:00 Cefepime HCl 50 ml @ 100 mls/hr Q12 IVPB Last administered on 06/07/18 08:13; Admin Dose 100 MLS/HR; Start 06/04/18 at 09:30 Rifaximin (Xifaxan) 550 mg BID PO Last administered on 06/07/18 08:13; Admin Dose 550 MG; Start 06/04/18 at 11:30 Lactulose (Enulose) 30 gm Q8 PO Last administered on 06/07/18 05:46; Admin Dose 30 GM; Start 06/05/18 at 14:00 Prednisone (Prednisone) 20 mg DAILY PO Last administered on 06/07/18 08:12; Admin Dose 20 MG; Start 06/06/18 at 09:00 Ipratropium [place] (Atrovent 0.02% (Neb)) 0.5 mg Q8H RESP THERAPY HHN Last administered on 06/06/18 23:03; Admin Dose 0.5 MG; Start 06/06/18 at 16:00 Levalbuterol (Xopenex Neb) 1.25 mg Q8H RESP THERAPY HHN Last administered on 06/06/18 23:04; Admin Dose 1.25 MG; Start 06/06/18 at 16:00 Sertraline HCl (Zoloft) 50 mg DAILY PO Last administered on 06/07/18 08:13; Admin Dose 50 MG; Start 06/07/18 at 09:00 Aspirin (Halfprin) 81 mg DAILY PO Last administered on 06/07/18 08:13; Admin Dose 81 MG; Start 06/07/18 at 09:00 Methadone HCl (Methadone Liq) 68 mg DAILY PO Last administered on 06/07/18 10:33; Admin Dose 68 MG; Start 06/06/18 at 15:30 Simethicone (Mylicon) 160 mg Q6H PRN PO DISTENSION/GAS/BLOATING Last administered on 06/07/18 01:59; Admin Dose 160 MG; Start 06/07/18 at 01:00 Al Hydrox/Mg Hydrox/Simethicone (Mag-Al Plus) 30 ml Q6H PRN PO GASTROINTESTINAL UPSET; Start 06/07/18 at 01:00 RICKIE DALTON MD Jun 07, 2018 12:45
--- NOTE | 2018-06-07 12:46 | RADRPT ---
Echocardiogram Report Patient Name: IDALMIS ENNISPatient ID: [id number] : 1950 (68y 3m)Study Date: 06/06/2018 5:31:05 PM Gender: FAccession #: [id number] Tech: [facility] [place] Location: Ref.Physician: MIKAL ZHU Height(Cm): 155 BSA: 1.47Weight(Kg): 49.9 Quality: Technically Difficult StudyAccount #: Procedures: Echocardiographic Report: Transthoracic echocardiogram with 2D, M-Mode, and doppler exam, difficult images. Indications: NSTEMI, and Pulmonary Hypertension. Measurements: 2D/M Mode Doppler Measurement Value Normal Range Measurement Value Normal Range LVIDd 2D 3.3 [ 3.8 - 5.2 ] cm AV Peak Mack 1.0 [ 100.0 - 170.0 ] cm/se c LVIDs 2D 2.5 [ 2.2 - 3.5 ] cm AV Peak PG 4.0 [ 2.0 - 9.0 ] mmHg LVPWd 2D 0.9 [ 0.6 - 0.9 ] cm LVOT Peak Mack 0.8 [ 70.0 - 110.0 ] cm/sec IVSd 2D 0.9 [ 0.6 - 0.9 ] cm LVOT Peak PG 3.0 [ 2.0 - 6.0 ] mmHg AoR Diam 2D 3.1 [ 2.3 - 3.1 ] cm MV E Peak Mack 0.5 [ 60.0 - 130.0 ] cm/sec EDV 2D 44.8 [ 46.0 - 106.0 ] ml MV A Peak Mack 0.8 [ 100.0 - 120.0 ] cm/se c ESV 2D 21.9 [ 14.0 - 42.0 ] ml MV E/A 0.7 [ 0.8 - 1.5 ] ratio EF 2D 51.1 [ 54.0 - 74.0 ] percent MV PHT 69.0 [ 20.0 - 100.0 ] msec LA Dimen 2D 3.3 [ 2.7 - 3.8 ] cm MV Decel Time 235 [ 104 - 258 ] msec MV Decel Tillman 2 Med E` Mack 0.1 cm/sec MV E/A 0.7 [ 0.8 - 1.5 ] ratio MVA PHT 3.2 [ 2.0 - 4.0 ] cm2 PV Peak Mack 0.7 [ 40.0 - 80.0 ] cm/sec PV Peak PG 2.0 mmHg Findings: Left Ventricle: Normal left ventricular systolic function. Normal left ventricular cavity size. Normal left ventricular wall thickness. Ejection fraction is visually estimated at 65 %. Tissue Doppler/Mitral Doppler indices are consistent with impaired relaxation (Stage I diastolic dysfunction). Right Ventricle: Normal right ventricular size. Normal right ventricular systolic function. Left Atrium: The left atrium is normal in size. Right Atrium: The right atrium is normal in size. Atrial Septum: Normal atrial septum. Mitral Valve: Normal appearance and function of the mitral valve with trace physiologic regurgitation. Aortic Valve: Normal appearance of the aortic valve. No significant aortic stenosis or insufficiency. Tricuspid Valve: Normal appearance and function of the tricuspid valve with trace physiologic regurgitation. Unable to obtain RVSP due to minimal presence of tricuspid regurgitation. Pulmonic Valve: Normal pulmonic valve appearance. There is trace pulmonic regurgitation. Pericardium: Normal pericardium with no significant pericardial effusion. Aorta: Normal aortic root. IVC: Normal size and normal respiratory collapse consistent with normal right atrial pressure. Pulmonary Artery: Unusual appearing echodensity which is somewhat linear and mobile. It is not attached to the pulmonic valve. Thrombus is not excluded. Conclusions: Normal left ventricular systolic function. Normal left ventricular cavity size. Normal left ventricular wall thickness. Ejection fraction is visually estimated at 65 %. Tissue Doppler/Mitral Doppler indices are consistent with impaired relaxation (Stage I diastolic dysfunction). Unusual appearing echodensity in the pulmonary artery which is somewhat linear and mobile. It is not attached to the pulmonic valve. Thrombus is not excluded. Could also be artifact. No significant valvular stenosis or regurgitation seen. Unable to obtain RVSP due to minimal presence of tricuspid regurgitation.Normal size and normal respiratory collapse consistent with normal right atrial pressure. Electronically Signed By: Mikal Zhu 2018-06-07 12:44:58 PDT
[2018-06-07] MEDS ORDERED: POTASSIUM PHOSPHATE 15 MM in SOD CHLORIDE 0.9% 250 ML IVPB ONE (14:00)
--- NOTE | 2018-06-07 17:58 | CONS ---
Assessment/Plan Assessment/Plan Hospital Course (Demo Recall) NSTEMI: trop 2 at [facility]. Downtrended. EF preserved. No symptoms. Not an interventional candidate with her comorbidities, thrombocytopenia, coagulapathy, noncompliance Acute renal failure: Cr 2.4 with hyperkalemia on admission. Improved Acute liver failure: AST/ALT 6000s, Improving Acute on chronic respiratory failure: due to COPD, resolved Acute on chronic COPD exacerbation Pulm HTN: PAP 60s Hep C and alcohol cirrhosis coagulopathy/thrombocytopenia heroin use -unclear finding in the pulmonary artery on echo.Not on the valve so not a vegetation. May just be artifact but could be thrombus. Will check for PE as a PE would explain some of her presenting symptoms and lab abnormalities -ASA with holding parameters -no statin with transaminitis -no BB for now with severe COPD -amlodipine 5mg Consultation Date/Type/Reason Admit Date/Time Jun 03, 2018 at 22:06 Initial Consult Date 06/04/18 Type of Consult Cardiology Requesting Provider: ZHANG WARE NP Date/Time of Note DATE: 06/07/18 TIME: 17:56 24 HR Interval Summary Free Text/Dictation No events. No complaints Exam/Review of Systems Vital Signs Vitals Vital Signs Date Temp Pulse Resp B/P (MAP) Pulse Ox O2 O2 Flow FiO2 Time Delivery Rate 06/07/18 72 18 98 Nasal 2.0 16:29 Cannula 06/07/18 98.0 133/75 15:57 (94) Intake and Output 06/06/18 06/06/18 06/07/18 1515:00 23:00 07:00 IntakeIntake Total 50 ml OutputOutput Total 500 ml BalanceBalance -450 ml Exam Constitutional: alert, oriented Psych: no complaints, nl mood/affect Neck: supple; No jvd Respiratory: clear to auscultation; No crackles/rales Cardiovascular: regular rate and rhythm; No edema Gastrointestinal: soft, non-tender Neurological: nl mental status, nl speech Labs Result Diagram: 06/07/18 0529 06/07/18528 Results 24hrs Laboratory Tests Test 06/07/18 05:29 06/07/18 11:39 White Blood Count 11.9 H Red Blood Count 4.14 L Hemoglobin 12.8 Hematocrit 42.1 Mean Corpuscular Volume 101.7 H Mean Corpuscular Hemoglobin 30.9 Mean Corpuscular Hemoglobin Concent 30.4 L Red Cell Distribution Width 17.0 H Platelet Count 108 L Mean Platelet Volume 11.9 H Immature Granulocytes % 0.400 Neutrophils % 81.6 H Lymphocytes % 10.7 L Monocytes % 6.8 Eosinophils % 0.3 Basophils % 0.2 Nucleated Red Blood Cells % 0.2 H Immature Granulocytes # 0.050 H Neutrophils # 9.7 H Lymphocytes # 1.3 Monocytes # 0.8 Eosinophils # 0.0 Basophils # 0.0 Nucleated Red Blood Cells # 0.0 Sodium Level 140 Potassium Level 4.3 Chloride Level 104 Carbon Dioxide Level 32 H Anion Gap 4 L Blood Urea Nitrogen 26 H Creatinine 0.73 Est Glomerular Filtrat Rate mL/min > 60 Glucose Level 75 Hemoglobin A1c 5.3 Calcium Level 7.8 L Total Bilirubin 1.2 Direct Bilirubin 0.00 Indirect Bilirubin 1.2 H Aspartate Amino Transf (AST/SGOT) 146 H Alanine Aminotransferase (ALT/SGPT) 1442 H Alkaline Phosphatase 68 Total Protein 5.6 L Albumin 3.0 L Globulin 2.60 Albumin/Globulin Ratio 1.15 Alpha Fetoprotein 4.95 Folate > 20.0 H Thyroid Stimulating Hormone (TSH) 1.770 Lab Scanned Report REFERENCE LAB Medications Medications Current Medications IV Flush (NS 3 ml) 3 ml PER PROTOCOL IV ; Start 06/04/18 at 00:00 Ondansetron HCl (Zofran Inj) 4 mg Q6H PRN IV NAUSEA/VOMITING; Start 06/04/18 at 00:00 Acetaminophen (Tylenol Tab) 650 mg Q6H PRN PO .PAIN 1-3 OR TEMP; Start 06/04/18 at 00:00 Docusate Sodium (Colace) 100 mg Q12H PRN PO .CONSTIPATION; Start 06/04/18 at 00:00 Bisacodyl (Dulcolax) 5 mg DAILY PRN PO .CONSTIPATION; Start 06/04/18 at 00:00 Pantoprazole (Protonix Tab) 40 mg DAILY@06 PO Last administered on 06/07/18at 05:31; Admin Dose 40 MG; Start 06/04/18 at 06:00 Amlodipine Besylate (Norvasc) 5 mg DAILY PO Last administered on 06/07/18at 08:13; Admin Dose 5 MG; Start 06/04/18 at 09:00 Baclofen (Lioresal) 10 mg BID PO Last administered on 06/07/18 08:12; Admin Dose 10 MG; Start 06/04/18 at 00:30 Hydroxyzine HCl (Atarax) 10 mg TID PO Last administered on 06/07/18 08:13; Admin Dose 10 MG; Start 06/04/18 at 09:00 Fluticasone/ Vilanterol (Breo Ellipta 100-25 Mcg Inh) 1 inh DAILY INH Last administered on 06/07/18 08:14; Admin Dose 1 INH; Start 06/04/18 at 09:00 Miscellaneous Information (Pending Santyl Order For Wound Care) This patient savage... PRN PRN XX WOUND CARE; Start 06/04/18 at 03:00 Rifaximin (Xifaxan) 550 mg BID PO Last administered on 06/07/18 08:13; Admin Dose 550 MG; Start 06/04/18 at 11:30 Lactulose (Enulose) 30 gm Q8 PO Last administered on 06/07/18 05:46; Admin Dose 30 GM; Start 06/05/18 at 14:00 Prednisone (Prednisone) 20 mg DAILY PO Last administered on 06/07/18 08:12; Admin Dose 20 MG; Start 06/06/18 at 09:00 Ipratropium [place] (Atrovent 0.02% (Neb)) 0.5 mg Q8H RESP THERAPY HHN Last administered on 06/07/18 16:25; Admin Dose 0.5 MG; Start 06/06/18 at 16:00 Levalbuterol (Xopenex Neb) 1.25 mg Q8H RESP THERAPY HHN Last administered on 06/07/18 16:25; Admin Dose 1.25 MG; Start 06/06/18 at 16:00 Sertraline HCl (Zoloft) 50 mg DAILY PO Last administered on 06/07/18 08:13; Admin Dose 50 MG; Start 06/07/18 at 09:00 Aspirin (Halfprin) 81 mg DAILY PO Last administered on 06/07/18 08:13; Admin Dose 81 MG; Start 06/07/18 at 09:00 Methadone HCl (Methadone Liq) 68 mg DAILY PO Last administered on 06/07/18 10:33; Admin Dose 68 MG; Start 06/06/18 at 15:30 Simethicone (Mylicon) 160 mg Q6H PRN PO DISTENSION/GAS/BLOATING Last administered on 06/07/18at 01:59; Admin Dose 160 MG; Start 06/07/18 at 01:00 Al Hydrox/Mg Hydrox/Simethicone (Mag-Al Plus) 30 ml Q6H PRN PO GASTROINTESTINAL UPSET; Start 06/07/18 at 01:00 Potassium Phosphate 15 mm/ Sodium Chloride 255 ml @ 63.75 mls/ hr ONCE ONCE IVPB Last administered on 06/07/18at 14:10; Admin Dose 63.75 MLS/HR; Start 06/07/18 at 14:00; Stop 06/07/18 at 17:59 Levofloxacin (Levaquin) 750 mg DAILY@06 PO ; Start 06/08/18 at 06:00 WILFRID OCAMPO Jun 07, 2018 17:58
[2018-06-07] MEDS ORDERED: SOD CHLORIDE 0.9% 100 ML ONE (21:41)
[2018-06-07] MEDS ORDERED: IOHEXOL 100 ML ONE (21:41)
[2018-06-08] VITALS (10 sets, daily range): BP systolic 130–167; BP diastolic 66–88; PULSE 69–101; RESP 18–19
[2018-06-08] MEDS ORDERED: HEPARIN 1000 UNITS/ML 10 ML INJ IV PRN ×2 (01:00)
[2018-06-08] MEDS: IPRATROPIUM (NEB) 0.5 MG/2.5 ML AMP HHN SCH ×3 (01:00→16:07)
[2018-06-08] MEDS ORDERED: HEPARIN 1000 UNITS/ML 10 ML INJ IV ONE (01:00)
[2018-06-08] MEDS: LEVALBUTEROL (NEB) 1.25 MG/0.5 ML AMP HHN SCH ×3 (01:01→16:07)
[2018-06-08] MEDS: HEPARIN 25000 UNITS/250 ML 250 ML IV SCH ×5 (02:09→19:00)
[2018-06-08] MEDS ORDERED: LEVOFLOXACIN 750 MG TABLET PO SCH (06:00)
[2018-06-08] MEDS: LACTULOSE 30ML CUP PO SCH ×3 (06:00→22:41)
[2018-06-08] MEDS: PANTOPRAZOLE (EC) 40 MG TAB PO SCH (06:01)
[2018-06-08] MEDS: RIFAXIMIN 550 MG TAB PO SCH ×3 (08:26→20:42)
[2018-06-08] MEDS: BACLOFEN 10 MG TAB PO SCH ×2 (08:26→20:42)
[2018-06-08] MEDS: predniSONE 20 MG TAB PO SCH (08:26)
[2018-06-08] MEDS: hydrOXYzine HCL 10 MG TAB PO SCH ×3 (08:26→20:42)
[2018-06-08] MEDS: AMLODIPINE 5 MG TAB PO SCH (08:26)
[2018-06-08] MEDS: ASPIRIN (EC) 81 MG TAB PO SCH (08:26)
[2018-06-08] MEDS: SERTRALINE 50 MG TAB PO SCH (08:26)
[2018-06-08] MEDS: FLUTICASONE/VILANTEROL 100-25 INH SCH (08:27)
[2018-06-08] MEDS: METHADONE (1 MG/ML 5 ML PO UD SYG) PO SCH (09:50)
--- NOTE | 2018-06-08 12:08 | CONS ---
Assessment/Plan Assessment/Plan Hospital Course (Demo Recall) Acute pulmonary embolism:suspicion on echo with thrombus seen in the pulmonary artery. Confirmed by CTA 06/07. Likely explains all her presenting abnormalities. Now anticoagulated. NSTEMI: trop 2 at [facility]. Downtrended. EF preserved. No symptoms. CTA confirmed PE which is likely the reason. Acute renal failure: Cr 2.4 with hyperkalemia on admission. Resolved Acute liver failure: AST/ALT 6000s, resolving Acute on chronic respiratory failure: thought to be due to COPD but likely was from PE Acute on chronic COPD exacerbation Pulm HTN: PAP 60s Hep C and alcohol cirrhosis coagulopathy/thrombocytopenia heroin use -continue heparin, transition to Xarelto or Eliquis -d/c ASA -amlodipine 5mg Consultation Date/Type/Reason Admit Date/Time Jun 03, 2018 at 22:06 Initial Consult Date 06/04/18 Type of Consult Cardiology Requesting Provider: ZHANG WARE NP Date/Time of Note DATE: 06/08/18 TIME: 12:04 24 HR Interval Summary Free Text/Dictation CTA confirmed PE yesterday so started on heparin drip. No complaints this am Exam/Review of Systems Vital Signs Vitals Vital Signs Date Temp Pulse Resp B/P (MAP) Pulse Ox O2 O2 Flow FiO2 Time Delivery Rate 06/08/18 98.0 93 18 167/88 93 Nasal 11:10 (114) Cannula 06/08/18 2.0 08:35 Intake and Output 06/07/18 06/07/18 06/08/18 1414:59 22:59 06:59 IntakeIntake Total 50 ml 700 ml 239 ml BalanceBalance 50 ml 700 ml 239 ml Exam Constitutional: alert, oriented Psych: no complaints; No anxiety Head: normocephalic, atraumatic Neck: supple; No jvd Respiratory: diminished breath sounds; No clear to auscultation Cardiovascular: regular rate and rhythm; No edema Gastrointestinal: soft, non-tender Neurological: nl mental status, nl speech Labs Result Diagram: 06/08/18 0509 06/08/18 0509 Results 24hrs Laboratory Tests Test 06/08/18 05:09 06/08/18 08:24 White Blood Count 13.5 H Red Blood Count 4.09 L Hemoglobin 12.8 Hematocrit 41.1 Mean Corpuscular Volume 100.5 Mean Corpuscular Hemoglobin 31.3 Mean Corpuscular Hemoglobin Concent 31.1 L Red Cell Distribution Width 16.7 H Platelet Count 129 L Mean Platelet Volume 12.2 H Immature Granulocytes % 0.500 H Neutrophils % 83.0 H Lymphocytes % 9.4 L Monocytes % 6.2 Eosinophils % 0.7 Basophils % 0.2 Nucleated Red Blood Cells % 0.0 Immature Granulocytes # 0.070 H Neutrophils # 11.2 H Lymphocytes # 1.3 Monocytes # 0.8 Eosinophils # 0.1 Basophils # 0.0 Nucleated Red Blood Cells # 0.0 Sodium Level 139 Potassium Level 4.1 Chloride Level 105 Carbon Dioxide Level 30 Anion Gap 4 L Blood Urea Nitrogen 18 Creatinine 0.61 Est Glomerular Filtrat Rate mL/min > 60 Glucose Level 80 Calcium Level 8.0 L Total Bilirubin 1.3 Direct Bilirubin 0.00 Indirect Bilirubin 1.3 H Aspartate Amino Transf (AST/SGOT) 98 H Alanine Aminotransferase (ALT/SGPT) 1084 H Alkaline Phosphatase 74 Ammonia 24 Total Protein 5.7 L Albumin 3.0 L Globulin 2.70 Albumin/Globulin Ratio 1.11 Vitamin B12 Level > 1000 H Folate > 20.0 H Activated Partial Thromboplast Time 152.9 *H Medications Medications Current Medications IV Flush (NS 3 ml) 3 ml PER PROTOCOL IV ; Start 06/04/18 at 00:00 Ondansetron HCl (Zofran Inj) 4 mg Q6H PRN IV NAUSEA/VOMITING; Start 06/04/18 at 00:00 Acetaminophen (Tylenol Tab) 650 mg Q6H PRN PO .PAIN 1-3 OR TEMP; Start 06/04/18 at 00:00 Docusate Sodium (Colace) 100 mg Q12H PRN PO .CONSTIPATION; Start 06/04/18 at 00:00 Bisacodyl (Dulcolax) 5 mg DAILY PRN PO .CONSTIPATION; Start 06/04/18 at 00:00 Pantoprazole (Protonix Tab) 40 mg DAILY@06 PO Last administered on 06/08/18at 0 6:01; Admin Dose 40 MG; Start 06/04/18 at 06:00 Amlodipine Besylate (Norvasc) 5 mg DAILY PO Last administered on 06/08/18at 08:26; Admin Dose 5 MG; Start 06/04/18 at 09:00 Baclofen (Lioresal) 10 mg BID PO Last administered on 06/08/18 08:26; Admin Dose 10 MG; Start 06/04/18 at 00:30 Hydroxyzine HCl (Atarax) 10 mg TID PO Last administered on 06/08/18 08:26; Admin Dose 10 MG; Start 06/04/18 at 09:00 Fluticasone/ Vilanterol (Breo Ellipta 100-25 Mcg Inh) 1 inh DAILY INH Last administered on 06/08/18 08:27; Admin Dose 1 INH; Start 06/04/18 at 09:00 Miscellaneous Information (Pending Santyl Order For Wound Care) This patient savage... PRN PRN XX WOUND CARE; Start 06/04/18 at 03:00 Rifaximin (Xifaxan) 550 mg BID PO Last administered on 06/08/18 08:26; Admin Dose 550 MG; Start 06/04/18 at 11:30 Lactulose (Enulose) 30 gm Q8 PO Last administered on 06/07/18 05:46; Admin Dose 30 GM; Start 06/05/18 at 14:00 Prednisone (Prednisone) 20 mg DAILY PO Last administered on 06/08/18 08:26; Admin Dose 20 MG; Start 06/06/18 at 09:00 Ipratropium [place] (Atrovent 0.02% (Neb)) 0.5 mg Q8H RESP THERAPY HHN Last administered on 06/08/18 08:34; Admin Dose 0.5 MG; Start 06/06/18 at 16:00 Levalbuterol (Xopenex Neb) 1.25 mg Q8H RESP THERAPY HHN Last administered on 06/08/18 08:34; Admin Dose 1.25 MG; Start 06/06/18 at 16:00 Sertraline HCl (Zoloft) 50 mg DAILY PO Last administered on 06/08/18 08:26; Admin Dose 50 MG; Start 06/07/18 at 09:00 Aspirin (Halfprin) 81 mg DAILY PO Last administered on 06/08/18 08:26; Admin Dose 81 MG; Start 06/07/18 at 09:00 Methadone HCl (Methadone Liq) 68 mg DAILY PO Last administered on 06/08/18 09:50; Admin Dose 68 MG; Start 06/06/18 at 15:30 Simethicone (Mylicon) 160 mg Q6H PRN PO DISTENSION/GAS/BLOATING Last administered on 06/07/18at 01:59; Admin Dose 160 MG; Start 06/07/18 at 01:00 Al Hydrox/Mg Hydrox/Simethicone (Mag-Al Plus) 30 ml Q6H PRN PO GASTROINTESTINAL UPSET; Start 06/07/18 at 01:00 Levofloxacin (Levaquin) 750 mg DAILY@06 PO Last administered on 06/08/18at 06:01; Admin Dose 750 MG; Start 06/08/18 at 06:00 Heparin Sodium (Porcine) (Heparin (1000 Units/ml)) 4,000 unit PER PROTOCOL PRN IV aPTT<47; Start 06/08/18 at 01:00 Heparin Sodium (Porcine) (Heparin (1000 Units/ml)) 2,000 unit PER PROTOCOL PRN IV aPTT<47-57; Start 06/08/18 at 01:00 Heparin Sodium (Porcine) 250 ml @ 9.054 mls/ hr PER PROTOCOL IV Last administered on 06/08/18at 11:47; Admin Dose 7.5 MLS/HR; Start 06/08/18 at 01:00 WILFRID OCAMPO Jun 08, 2018 12:08
--- NOTE | 2018-06-08 13:09 | PN ---
Date/Time of Note Date/Time of Note DATE: 06/08/18 TIME: 13:07 Assessment/Plan VTE Prophylaxis Risk score (from Ns)>0 risk: 3 SCD applied (from Ns): Yes Pharmacological prophylaxis: heparin Lines/Catheters IV [facility]from [facility] [place] Urinary Cath still in place: No Assessment/Plan Hospital Course Assessment/Plan Assessment: Transaminitis- trending down --Likely multifactorial -Liver shock from underlying cardiac etiology -Hx of ETOH use -Hep C (Hep C AB +, RNA [id number]) Metabolic encephalopathy- improved Leukocytosis- on prednisone Questionable Liver cirrhosis - AFP 4.95 -Liver us - Liver is normal in echogenicity and measures 12.6 cm Coagulopathy Thrombocytopenia- improving COPD Hypertension Chronic kidney disease History of alcohol use- per pt/family quit over 1 year ago Heroin abuse -on methadone PE confirmed on CTA - started on heparin gtt -medial right middle lobe and inferomedial right lower lobe. Plan: Continue rifaximin/lactulose-titrate to 3 bowel movements per day pt started on heparin gtt for + PE- monitor for overt sign of Gi bleed given anticoagulation and thrombocytopenia (which is currently improving) Pt to f/u as out-pt for Hepatitis C treatment and out-pt endoscopies AST/ALT trending down- indirect bili- stbale- at this time we will continue to monitor- if Bilirubin increases will consider MRCP Patient seen in collaboration with Dr. Campos Subjective: She denies abdominal pain, nausea or vomiting. Tolerating regular diet well. Resting in bed comfortable, Discussed LFTs results. No over night events. Daughter at bedside. PHYSICAL EXAMINATION: GENERAL: Cachectic, alert and forgetful, in no acute distress SKIN: No lesions HEENT: No lesions CHEST: Inspection within normal limits. CARDIOVASCULAR: Heart: Regular rate and rhythm RESPIRATORY: Lungs clear to auscultation GASTROINTESTINAL AND LIVER: Abdomen: Soft, non tenderness, non-distended, no hernias, no masses, no organomegaly, no ascites, no guarding, no rebound tenderness, normoactive bowel sounds. Rectal: Deferred. GENITOURINARY: Female genitalia within normal limits. EXTREMITIES: No cyanosis, clubbing or edema. Result Diagram: 06/08/18 0509 06/08/18 0509 Results 24hrs Laboratory Tests Test 06/08/18 05:09 06/08/18 08:24 White Blood Count 13.5 H Red Blood Count 4.09 L Hemoglobin 12.8 Hematocrit 41.1 Mean Corpuscular Volume 100.5 Mean Corpuscular Hemoglobin 31.3 Mean Corpuscular Hemoglobin Concent 31.1 L Red Cell Distribution Width 16.7 H Platelet Count 129 L Mean Platelet Volume 12.2 H Immature Granulocytes % 0.500 H Neutrophils % 83.0 H Lymphocytes % 9.4 L Monocytes % 6.2 Eosinophils % 0.7 Basophils % 0.2 Nucleated Red Blood Cells % 0.0 Immature Granulocytes # 0.070 H Neutrophils # 11.2 H Lymphocytes # 1.3 Monocytes # 0.8 Eosinophils # 0.1 Basophils # 0.0 Nucleated Red Blood Cells # 0.0 Sodium Level 139 Potassium Level 4.1 Chloride Level 105 Carbon Dioxide Level 30 Anion Gap 4 L Blood Urea Nitrogen 18 Creatinine 0.61 Est Glomerular Filtrat Rate mL/min > 60 Glucose Level 80 Calcium Level 8.0 L Total Bilirubin 1.3 Direct Bilirubin 0.00 Indirect Bilirubin 1.3 H Aspartate Amino Transf (AST/SGOT) 98 H Alanine Aminotransferase (ALT/SGPT) 1084 H Alkaline Phosphatase 74 Ammonia 24 Total Protein 5.7 L Albumin 3.0 L Globulin 2.70 Albumin/Globulin Ratio 1.11 Vitamin B12 Level > 1000 H Folate > 20.0 H Activated Partial Thromboplast Time 152.9 *H Exam/Review of Systems Exam Vitals Vital Signs Date Temp Pulse Resp B/P (MAP) Pulse Ox O2 O2 Flow FiO2 Time Delivery Rate 06/08/18 94 12:48 06/08/18 98.0 18 167/88 93 Nasal 11:10 (114) Cannula 06/08/18 2.0 08:35 Intake and Output 06/07/18 06/07/18 06/08/18 1515:00 23:00 07:00 IntakeIntake Total 50 ml 700 ml 239 ml BalanceBalance 50 ml 700 ml 239 ml Results Results 24hrs Laboratory Tests Test 06/08/18 05:09 06/08/18 08:24 White Blood Count 13.5 H Red Blood Count 4.09 L Hemoglobin 12.8 Hematocrit 41.1 Mean Corpuscular Volume 100.5 Mean Corpuscular Hemoglobin 31.3 Mean Corpuscular Hemoglobin Concent 31.1 L Red Cell Distribution Width 16.7 H Platelet Count 129 L Mean Platelet Volume 12.2 H Immature Granulocytes % 0.500 H Neutrophils % 83.0 H Lymphocytes % 9.4 L Monocytes % 6.2 Eosinophils % 0.7 Basophils % 0.2 Nucleated Red Blood Cells % 0.0 Immature Granulocytes # 0.070 H Neutrophils # 11.2 H Lymphocytes # 1.3 Monocytes # 0.8 Eosinophils # 0.1 Basophils # 0.0 Nucleated Red Blood Cells # 0.0 Sodium Level 139 Potassium Level 4.1 Chloride Level 105 Carbon Dioxide Level 30 Anion Gap 4 L Blood Urea Nitrogen 18 Creatinine 0.61 Est Glomerular Filtrat Rate mL/min > 60 Glucose Level 80 Calcium Level 8.0 L Total Bilirubin 1.3 Direct Bilirubin 0.00 Indirect Bilirubin 1.3 H Aspartate Amino Transf (AST/SGOT) 98 H Alanine Aminotransferase (ALT/SGPT) 1084 H Alkaline Phosphatase 74 Ammonia 24 Total Protein 5.7 L Albumin 3.0 L Globulin 2.70 Albumin/Globulin Ratio 1.11 Vitamin B12 Level > 1000 H Folate > 20.0 H Activated Partial Thromboplast Time 152.9 *H Medications Medication Current Medications IV Flush (NS 3 ml) 3 ml PER PROTOCOL IV ; Start 06/04/18 at 00:00 Ondansetron HCl (Zofran Inj) 4 mg Q6H PRN IV NAUSEA/VOMITING; Start 06/04/18 at 00:00 Acetaminophen (Tylenol Tab) 650 mg Q6H PRN PO .PAIN 1-3 OR TEMP; Start 06/04/18 at 00:00 Docusate Sodium (Colace) 100 mg Q12H PRN PO .CONSTIPATION; Start 06/04/18 at 00:00 Bisacodyl (Dulcolax) 5 mg DAILY PRN PO .CONSTIPATION; Start 06/04/18 at 00:00 Pantoprazole (Protonix Tab) 40 mg DAILY@06 PO Last administered on 06/08/18at 06:01; Admin Dose 40 MG; Start 06/04/18 at 06:00 Amlodipine Besylate (Norvasc) 5 mg DAILY PO Last administered on 06/08/18at 08:26; Admin Dose 5 MG; Start 06/04/18 at 09:00 Baclofen (Lioresal) 10 mg BID PO Last administered on 06/08/18at 08:26; Admin Dose 10 MG; Start 06/04/18 at 00:30 Hydroxyzine HCl (Atarax) 10 mg TID PO Last administered on 06/08/18 08:26; Admin Dose 10 MG; Start 06/04/18 at 09:00 Fluticasone/ Vilanterol (Breo Ellipta 100-25 Mcg Inh) 1 inh DAILY INH Last administered on 06/08/18 08:27; Admin Dose 1 INH; Start 06/04/18 at 09:00 Miscellaneous Information (Pending Santyl Order For Wound Care) This patient savage... PRN PRN XX WOUND CARE; Start 06/04/18 at 03:00 Rifaximin (Xifaxan) 550 mg BID PO Last administered on 06/08/18 08:26; Admin Dose 550 MG; Start 06/04/18 at 11:30 Lactulose (Enulose) 30 gm Q8 PO Last administered on 06/07/18 05:46; Admin Dose 30 GM; Start 06/05/18 at 14:00 Prednisone (Prednisone) 20 mg DAILY PO Last administered on 06/08/18 08:26; Admin Dose 20 MG; Start 06/06/18 at 09:00 Ipratropium [place] (Atrovent 0.02% (Neb)) 0.5 mg Q8H RESP THERAPY HHN Last administered on 06/08/18 08:34; Admin Dose 0.5 MG; Start 06/06/18 at 16:00 Levalbuterol (Xopenex Neb) 1.25 mg Q8H RESP THERAPY HHN Last administered on 06/08/18 08:34; Admin Dose 1.25 MG; Start 06/06/18 at 16:00 Sertraline HCl (Zoloft) 50 mg DAILY PO Last administered on 06/08/18 08:26; Admin Dose 50 MG; Start 06/07/18 at 09:00 Methadone HCl (Methadone Liq) 68 mg DAILY PO Last administered on 06/08/18 09:50; Admin Dose 68 MG; Start 06/06/18 at 15:30 Simethicone (Mylicon) 160 mg Q6H PRN PO DISTENSION/GAS/BLOATING Last administered on 06/07/18 01:59; Admin Dose 160 MG; Start 06/07/18 at 01:00 Al Hydrox/Mg Hydrox/Simethicone (Mag-Al Plus) 30 ml Q6H PRN PO GASTROINTESTINAL UPSET; Start 06/07/18 at 01:00 Levofloxacin (Levaquin) 750 mg DAILY@06 PO Last administered on 06/08/18at 06:01; Admin Dose 750 MG; Start 06/08/18 at 06:00 Heparin Sodium (Porcine) (Heparin (1000 Units/ml)) 4,000 unit PER PROTOCOL PRN IV aPTT<47; Start 06/08/18 at 01:00 Heparin Sodium (Porcine) (Heparin (1000 Units/ml)) 2,000 unit PER PROTOCOL PRN IV aPTT<47-57; Start 06/08/18 at 01:00 Heparin Sodium (Porcine) 250 ml @ 9.054 mls/ hr PER PROTOCOL IV Last administered on 06/08/18at 11:47; Admin Dose 7.5 MLS/HR; Start 06/08/18 at 01:00 BRETT LEAVITT Jun 08, 2018 13:09
--- NOTE | 2018-06-08 17:59 | PN ---
Date/Time of Note Date/Time of Note DATE: 06/08/18 TIME: 17:56 Assessment/Plan VTE Prophylaxis Risk score (from Ns)>0 risk: 3 SCD applied (from Ns): Yes SCD contraindicated: low risk/ambulating Pharmacological prophylaxis: heparin Lines/Catheters IV Catheter Type (from Nrsg): Saline Lock Urinary Cath still in place: No Assessment/Plan Hospital Course ` Assessment plan 1. Severe sepsis secondary to pneumonia? Stable improved, Taper off O2 2. Suspected infection/community acquired pneumonia, stable finish antibiotics 3. TYPE II ME, stable, cont medical management. No need for cath 4. Nonadherence, counseled 5. Methadone use/chronic pain stable observe 6. Past heroin and meth 7. Ftt; PT home health safety on discharge. Will update family 8. Chronic COPD/emphysema? 9. Past tobacco 10. Abnormal LFTs, avoid statin for now. Differential: Shock versus passive congestion 11. Dysphagia? 12. Hepatitis C viremia 13. Pulmonary hypertension/cor pulmonale? 14. Chronic respiratory failure on home O2? 15. Abnormal chest x-ray? 16. Acute psychosis? Continue reorientation and reassurance. Haldol as needed. Check ammonia level 17. Dilated CBD, unchanged according to radiology/appears similar to previous imaging and 18. Cirrhosis 19. Chronic liver disease sequently with ascites? Portal hypertension? 20. Constipation 21. Compression fracture status T6/7 22. Epistaxis mild, Afrin added 23. Acute right medial lower lobe pulmonary embolism, rule out DVT. Heparin and will transition to Eliquis/Xarelto; liver disease noted. S: 06/06 no distress occasional cough without any hemoptysis. No chest pain fever. 06/07: No distress. Agitated overnight. Presently follows commands no chest pain fever 06/08: Events noted. No fever over distress. O: Vss; sinus rhythm PE No pallor JVD Reg no mrg Scattered wheeze no tachypnea Bowel sounds present nt nd no RRG No edema//Homans Result Diagram: 06/08/18 0509 06/08/18 0509 Results 24hrs Laboratory Tests Test 06/08/18 05:09 06/08/18 08:24 06/08/18 15:49 White Blood Count 13.5 H Red Blood Count 4.09 L Hemoglobin 12.8 Hematocrit 41.1 Mean Corpuscular Volume 100.5 Mean Corpuscular Hemoglobin 31.3 Mean Corpuscular Hemoglobin Concent 31.1 L Red Cell Distribution Width 16.7 H Platelet Count 129 L Mean Platelet Volume 12.2 H Immature Granulocytes % 0.500 H Neutrophils % 83.0 H Lymphocytes % 9.4 L Monocytes % 6.2 Eosinophils % 0.7 Basophils % 0.2 Nucleated Red Blood Cells % 0.0 Immature Granulocytes # 0.070 H Neutrophils # 11.2 H Lymphocytes # 1.3 Monocytes # 0.8 Eosinophils # 0.1 Basophils # 0.0 Nucleated Red Blood Cells # 0.0 Sodium Level 139 Potassium Level 4.1 Chloride Level 105 Carbon Dioxide Level 30 Anion Gap 4 L Blood Urea Nitrogen 18 Creatinine 0.61 Est Glomerular Filtrat Rate mL/min > 60 Glucose Level 80 Calcium Level 8.0 L Total Bilirubin 1.3 Direct Bilirubin 0.00 Indirect Bilirubin 1.3 H Aspartate Amino Transf (AST/SGOT) 98 H Alanine Aminotransferase (ALT/SGPT) 1084 H Alkaline Phosphatase 74 Ammonia 24 Total Protein 5.7 L Albumin 3.0 L Globulin 2.70 Albumin/Globulin Ratio 1.11 Vitamin B12 Level > 1000 H Folate > 20.0 H Rapid Plasma Reagin NONREACTIVE Activated Partial Thromboplast Time 152.9 *H 54.4 H Exam/Review of Systems Exam Vitals Vital Signs Date Temp Pulse Resp B/P (MAP) Pulse Ox O2 O2 Flow FiO2 Time Delivery Rate 06/08/18 82 18 96 Nasal 2.0 16:08 Cannula 06/08/18 98.1 140/69 15:00 (92) Intake and Output 06/07/18 06/07/18 06/08/18 1515:00 23:00 07:00 IntakeIntake Total 50 ml 700 ml 239 ml BalanceBalance 50 ml 700 ml 239 ml Results Results 24hrs Laboratory Tests Test 06/08/18 05:09 06/08/18 08:24 06/08/18 15:49 White Blood Count 13.5 H Red Blood Count 4.09 L Hemoglobin 12.8 Hematocrit 41.1 Mean Corpuscular Volume 100.5 Mean Corpuscular Hemoglobin 31.3 Mean Corpuscular Hemoglobin Concent 31.1 L Red Cell Distribution Width 16.7 H Platelet Count 129 L Mean Platelet Volume 12.2 H Immature Granulocytes % 0.500 H Neutrophils % 83.0 H Lymphocytes % 9.4 L Monocytes % 6.2 Eosinophils % 0.7 Basophils % 0.2 Nucleated Red Blood Cells % 0.0 Immature Granulocytes # 0.070 H Neutrophils # 11.2 H Lymphocytes # 1.3 Monocytes # 0.8 Eosinophils # 0.1 Basophils # 0.0 Nucleated Red Blood Cells # 0.0 Sodium Level 139 Potassium Level 4.1 Chloride Level 105 Carbon Dioxide Level 30 Anion Gap 4 L Blood Urea Nitrogen 18 Creatinine 0.61 Est Glomerular Filtrat Rate mL/min > 60 Glucose Level 80 Calcium Level 8.0 L Total Bilirubin 1.3 Direct Bilirubin 0.00 Indirect Bilirubin 1.3 H Aspartate Amino Transf (AST/SGOT) 98 H Alanine Aminotransferase (ALT/SGPT) 1084 H Alkaline Phosphatase 74 Ammonia 24 Total Protein 5.7 L Albumin 3.0 L Globulin 2.70 Albumin/Globulin Ratio 1.11 Vitamin B12 Level > 1000 H Folate > 20.0 H Rapid Plasma Reagin NONREACTIVE Activated Partial Thromboplast Time 152.9 *H 54.4 H Medications Medication Current Medications IV Flush (NS 3 ml) 3 ml PER PROTOCOL IV ; Start 06/04/18 at 00:00 Ondansetron HCl (Zofran Inj) 4 mg Q6H PRN IV NAUSEA/VOMITING; Start 06/04/18 at 00:00 Acetaminophen (Tylenol Tab) 650 mg Q6H PRN PO .PAIN 1-3 OR TEMP; Start 06/04/18 at 00:00 Docusate Sodium (Colace) 100 mg Q12H PRN PO .CONSTIPATION; Start 06/04/18 at 00:00 Bisacodyl (Dulcolax) 5 mg DAILY PRN PO .CONSTIPATION; Start 06/04/18 at 00:00 Pantoprazole (Protonix Tab) 40 mg DAILY@06 PO Last administered on 06/08/18at 06:01; Admin Dose 40 MG; Start 06/04/18 at 06:00 Amlodipine Besylate (Norvasc) 5 mg DAILY PO Last administered on 06/08/18at 08:26; Admin Dose 5 MG; Start 06/04/18 at 09:00 Baclofen (Lioresal) 10 mg BID PO Last administered on 06/08/18at 08:26; Admin Dose 10 MG; Start 06/04/18 at 00:30 Hydroxyzine HCl (Atarax) 10 mg TID PO Last administered on 06/08/18 13:46; Admin Dose 10 MG; Start 06/04/18 at 09:00 Fluticasone/ Vilanterol (Breo Ellipta 100-25 Mcg Inh) 1 inh DAILY INH Last administered on 06/08/18 08:27; Admin Dose 1 INH; Start 06/04/18 at 09:00 Miscellaneous Information (Pending Santyl Order For Wound Care) This patient savage... PRN PRN XX WOUND CARE; Start 06/04/18 at 03:00 Rifaximin (Xifaxan) 550 mg BID PO Last administered on 06/08/18 08:26; Admin Dose 550 MG; Start 06/04/18 at 11:30 Lactulose (Enulose) 30 gm Q8 PO Last administered on 06/08/18 13:46; Admin Dose 30 GM; Start 06/05/18 at 14:00 Prednisone (Prednisone) 20 mg DAILY PO Last administered on 06/08/18 08:26; Admin Dose 20 MG; Start 06/06/18 at 09:00 Ipratropium [place] (Atrovent 0.02% (Neb)) 0.5 mg Q8H RESP THERAPY HHN Last administered on 06/08/18 16:07; Admin Dose 0.5 MG; Start 06/06/18 at 16:00 Levalbuterol (Xopenex Neb) 1.25 mg Q8H RESP THERAPY HHN Last administered on 06/08/18 16:07; Admin Dose 1.25 MG; Start 06/06/18 at 16:00 Sertraline HCl (Zoloft) 50 mg DAILY PO Last administered on 06/08/18 08:26; Admin Dose 50 MG; Start 06/07/18 at 09:00 Methadone HCl (Methadone Liq) 68 mg DAILY PO Last administered on 06/08/18 09:50; Admin Dose 68 MG; Start 06/06/18 at 15:30 Simethicone (Mylicon) 160 mg Q6H PRN PO DISTENSION/GAS/BLOATING Last administered on 06/07/18 01:59; Admin Dose 160 MG; Start 06/07/18 at 01:00 Al Hydrox/Mg Hydrox/Simethicone (Mag-Al Plus) 30 ml Q6H PRN PO GASTROINTESTINAL UPSET; Start 06/07/18 at 01:00 Levofloxacin (Levaquin) 750 mg DAILY@06 PO Last administered on 06/08/18at 06:01; Admin Dose 750 MG; Start 06/08/18 at 06:00 Heparin Sodium (Porcine) (Heparin (1000 Units/ml)) 4,000 unit PER PROTOCOL PRN IV aPTT<47; Start 06/08/18 at 01:00 Heparin Sodium (Porcine) (Heparin (1000 Units/ml)) 2,000 unit PER PROTOCOL PRN IV aPTT<47-57; Start 06/08/18 at 01:00 Heparin Sodium (Porcine) 250 ml @ 9.054 mls/ hr PER PROTOCOL IV Last administered on 06/08/18at 11:47; Admin Dose 7.5 MLS/HR; Start 06/08/18 at 01:00 IRCKIE DALTON MD Jun 08, 2018 17:59
[2018-06-08] MEDS ORDERED: BISACODYL (EC) 5 MG TAB PO ONE (18:00)
[2018-06-08] MEDS: APIXABAN 5 MG TABLET PO SCH (20:42)
[2018-06-08] MEDS: OXYMETAZOLINE 0.05% 15 ML NAS SPRAY NASAL SCH (20:43)
[2018-06-09] VITALS (14 sets, daily range): BP systolic 128–176; BP diastolic 70–90; PULSE 72–103; RESP 18–22
[2018-06-09] MEDS: LEVALBUTEROL (NEB) 1.25 MG/0.5 ML AMP HHN SCH ×3 (00:12→16:12)
[2018-06-09] MEDS: IPRATROPIUM (NEB) 0.5 MG/2.5 ML AMP HHN SCH ×3 (00:12→16:12)
[2018-06-09] MEDS: PANTOPRAZOLE (EC) 40 MG TAB PO SCH (05:39)
[2018-06-09] MEDS: LACTULOSE 30ML CUP PO SCH ×3 (05:41→21:58)
--- NOTE | 2018-06-09 09:12 | CONS ---
Assessment/Plan Assessment/Plan Hospital Course (Demo Recall) Acute pulmonary embolism:suspicion on echo with thrombus seen in the pulmonary artery. Confirmed by CTA 06/07. Likely explains all her presenting abnormalities. Now anticoagulated. NSTEMI: trop 2 at [facility]. Downtrended. EF preserved. No symptoms. CTA confirmed PE which is likely the reason. Acute renal failure: Cr 2.4 with hyperkalemia on admission. Resolved Acute liver failure: AST/ALT 6000s, resolving Acute on chronic respiratory failure: thought to be due to COPD but likely was from PE Acute on chronic COPD exacerbation Pulm HTN: PAP 60s Hep C and alcohol cirrhosis coagulopathy/thrombocytopenia heroin use -continue Eliquis -no ASA -amlodipine 5mg otherwise ok for d/c from my perspective Consultation Date/Type/Reason Admit Date/Time Jun 03, 2018 at 22:06 Initial Consult Date 06/04/18 Type of Consult Cardiology Requesting Provider: ZHANG WARE NP Date/Time of Note DATE: 06/09/18 TIME: 09:11 24 HR Interval Summary Free Text/Dictation No events. Transitioned to Eliquis Exam/Review of Systems Vital Signs Vitals Vital Signs Date Temp Pulse Resp B/P (MAP) Pulse Ox O2 O2 Flow FiO2 Time Delivery Rate 06/09/18 80 17 95 21 08:48 06/09/18 97.8 137/80 Room Air 08:02 (99) 06/09/18 2.0 00:14 Intake and Output 06/08/18 06/08/18 06/09/18 1515:00 23:00 07:00 IntakeIntake Total 75 ml 1000 ml 400 ml BalanceBalance 75 ml 1000 ml 400 ml Exam Constitutional: alert, oriented Psych: no complaints, nl mood/affect Head: normocephalic, atraumatic Neck: supple; No jvd Respiratory: clear to auscultation, diminished breath sounds; No crackles/rales Cardiovascular: regular rate and rhythm; No edema Gastrointestinal: soft, non-tender; No distended Neurological: nl mental status, nl speech Labs Result Diagram: 06/09/18 0529 06/09/18 0529 Results 24hrs Laboratory Tests Test 06/08/18 15:49 06/09/18 00:28 06/09/18 05:29 Activated Partial Thromboplast Time 54.4 H 27.7 White Blood Count 13.6 H Red Blood Count 4.16 L Hemoglobin 12.7 Hematocrit 41.1 Mean Corpuscular Volume 98.8 Mean Corpuscular Hemoglobin 30.5 Mean Corpuscular Hemoglobin Concent 30.9 L Red Cell Distribution Width 16.5 H Platelet Count 157 # Mean Platelet Volume 11.7 H Immature Granulocytes % 0.400 Neutrophils % 82.8 H Lymphocytes % 9.7 L Monocytes % 6.5 Eosinophils % 0.5 Basophils % 0.1 Nucleated Red Blood Cells % 0.0 Immature Granulocytes # 0.050 H Neutrophils # 11.3 H Lymphocytes # 1.3 Monocytes # 0.9 Eosinophils # 0.1 Basophils # 0.0 Nucleated Red Blood Cells # 0.0 Sodium Level 138 Potassium Level 3.7 Chloride Level 99 Carbon Dioxide Level 34 H Anion Gap 5 Blood Urea Nitrogen 15 Creatinine 0.63 Est Glomerular Filtrat Rate mL/min > 60 Glucose Level 86 Calcium Level 8.3 L Magnesium Level 1.7 Total Bilirubin 1.2 Direct Bilirubin 0.00 Indirect Bilirubin 1.2 H Aspartate Amino Transf (AST/SGOT) 70 H Alanine Aminotransferase (ALT/SGPT) 762 H Alkaline Phosphatase 67 Total Protein 6.0 L Albumin 3.1 L Globulin 2.90 Albumin/Globulin Ratio 1.06 Medications Medications Current Medications IV Flush (NS 3 ml) 3 ml PER PROTOCOL IV ; Start 06/04/18 at 00:00 Ondansetron HCl (Zofran Inj) 4 mg Q6H PRN IV NAUSEA/VOMITING; Start 06/04/18 at 00:00 Acetaminophen (Tylenol Tab) 650 mg Q6H PRN PO .PAIN 1-3 OR TEMP; Start 06/04/18 at 00:00 Docusate Sodium (Colace) 100 mg Q12H PRN PO .CONSTIPATION; Start 06/04/18 at 00:00 Bisacodyl (Dulcolax) 5 mg DAILY PRN PO .CONSTIPATION; Start 06/04/18 at 00:00 Pantoprazole (Protonix Tab) 40 mg DAILY@06 PO Last administered on 06/09/18at 05:39; Admin Dose 40 MG; Start 06/04/18 at 06:00 Amlodipine Besylate (Norvasc) 5 mg DAILY PO Last administered on 06/08/18at 08:26; Admin Dose 5 MG; Start 06/04/18 at 09:00 Baclofen (Lioresal) 10 mg BID PO Last administered on 06/08/18 20:42; Admin Dose 10 MG; Start 06/04/18 at 00:30 Hydroxyzine HCl (Atarax) 10 mg TID PO Last administered on 06/08/18 20:42; Admin Dose 10 MG; Start 06/04/18 at 09:00 Fluticasone/ Vilanterol (Breo Ellipta 100-25 Mcg Inh) 1 inh DAILY INH Last administered on 06/08/18 08:27; Admin Dose 1 INH; Start 06/04/18 at 09:00 Miscellaneous Information (Pending Santyl Order For Wound Care) This patient savage... PRN PRN XX WOUND CARE; Start 06/04/18 at 03:00 Rifaximin (Xifaxan) 550 mg BID PO Last administered on 06/08/18 20:42; Admin Dose 550 MG; Start 06/04/18 at 11:30 Lactulose (Enulose) 30 gm Q8 PO Last administered on 06/09/18 05:41; Admin Dose 30 GM; Start 06/05/18 at 14:00 Prednisone (Prednisone) 20 mg DAILY PO Last administered on 06/08/18 08:26; Admin Dose 20 MG; Start 06/06/18 at 09:00 Ipratropium [place] (Atrovent 0.02% (Neb)) 0.5 mg Q8H RESP THERAPY HHN Last administered on 06/09/18 08:47; Admin Dose 0.5 MG; Start 06/06/18 at 16:00 Levalbuterol (Xopenex Neb) 1.25 mg Q8H RESP THERAPY HHN Last administered on 06/09/18 08:47; Admin Dose 1.25 MG; Start 06/06/18 at 16:00 Sertraline HCl (Zoloft) 50 mg DAILY PO Last administered on 06/08/18 08:26; Admin Dose 50 MG; Start 06/07/18 at 09:00 Methadone HCl (Methadone Liq) 68 mg DAILY PO Last administered on 06/08/18 09:50; Admin Dose 68 MG; Start 06/06/18 at 15:30 Simethicone (Mylicon) 160 mg Q6H PRN PO DISTENSION/GAS/BLOATING Last administered on 06/07/18 01:59; Admin Dose 160 MG; Start 06/07/18 at 01:00 Al Hydrox/Mg Hydrox/Simethicone (Mag-Al Plus) 30 ml Q6H PRN PO GASTROINTESTINAL UPSET; Start 06/07/18 at 01:00 Oxymetazoline HCl (Afrin [place]) 2 spray BID NASAL Last administered on 06/08/18at 20:43; Admin Dose 2 SPRAY; Start 06/08/18 at 21:00 Apixaban (Eliquis) 10 mg BID PO Last administered on 06/08/18at 20:42; Admin Dose 10 MG; Start 06/08/18 at 21:00 WILFRID OCAMPO Jun 09, 2018 09:12
[2018-06-09] MEDS: METHADONE (1 MG/ML 5 ML PO UD SYG) PO SCH (10:45)
[2018-06-09] MEDS: FLUTICASONE/VILANTEROL 100-25 INH SCH (10:46)
[2018-06-09] MEDS: BACLOFEN 10 MG TAB PO SCH ×2 (10:47→21:55)
[2018-06-09] MEDS: APIXABAN 5 MG TABLET PO SCH ×2 (10:47→21:56)
[2018-06-09] MEDS: predniSONE 20 MG TAB PO SCH (10:47)
[2018-06-09] MEDS: OXYMETAZOLINE 0.05% 15 ML NAS SPRAY NASAL SCH ×2 (10:47→21:00)
[2018-06-09] MEDS: hydrOXYzine HCL 10 MG TAB PO SCH ×3 (10:47→21:00)
[2018-06-09] MEDS: RIFAXIMIN 550 MG TAB PO SCH (10:48)
[2018-06-09] MEDS: AMLODIPINE 5 MG TAB PO SCH (10:48)
[2018-06-09] MEDS: SERTRALINE 50 MG TAB PO SCH (10:48)
--- NOTE | 2018-06-09 12:42 | PN ---
Date/Time of Note Date/Time of Note DATE: 06/09/18 TIME: 12:36 Assessment/Plan VTE Prophylaxis Risk score (from Nsg)>0 risk: 3 SCD applied (from Nsg): Yes SCD contraindicated: low risk/ambulating Pharmacological prophylaxis: other Lines/Catheters IV Catheter Type (from Nrsg): Saline Lock Urinary Cath still in place: No Assessment/Plan Hospital Course Assessment plan 1. SIRS secondary to #3 Stable improved, Taper off treatment. Treatment 2. Ac PE; No lwr ext DVT, probably related to immobility, cont Eliquis. Outpatient hematology workup. 3. TYPE II [place], stable, treat #1/2. No need for cath 4. Nonadherence, counseled 5. Methadone use/chronic pain stable observe 6. Past heroin and meth 7. Ftt; PT home health safety on discharge. vs snf. Updated family 8. Chronic COPD/emphysema? Consider outpatient PFTs 9. Past tobacco 10. Abn LFTs, avoid statin for now. Differential: Shock vs passive congestion 11. Dysphagia? 12. Hepatitis C viremia: No bowen evidence of cirrhosis on ultrasound at this time. 13. Pulmonary hypertension vs cor pulmonale? Acutely due to PE but possible underlying issues due to chronic COPD 14. Chronic respiratory failure on home O2? 15. Abn cxr from [place]? However CT does not show any nodules. 16. Acute psychosis? Cont reorientation and reassurance. Haldol as needed. Check ammonia level 17. Dilated CBD, unchanged according to radiology/appears similar to previous imaging and 18. Cirrhosis? 19. Chr liver disease sequelae with ascites/ Portal hypertension? 20. Constipation 21. Compression fracture status T6/7 22. Epistaxis mild, Afrin added 23. PTSD? S: 06/06 no distress occasional cough without any hemoptysis. No chest pain fever. 06/07: No distress. Agitated overnight. Presently follows commands no chest pain fever 06/08: Events noted. No fever over distress. 06/09: Refusing laxatives. Risk of coma/encephalopathy discussed. Patient is awake alert oriented to year, no fever or abdominal pain. O: Vss; sinus rhythm PE No pallor JVD Reg no mrg Mostly clear no tachypnea Bowel sounds present nt nd no RRG No edema//Homans Neuro: Grossly nonfocal Result Diagram: 06/09/1829 06/09/18 05 Results 24hrs Laboratory Tests Test 06/08/18 15:49 06/09/18 00:28 06/09/18 05:29 Activated Partial Thromboplast Time 54.4 H 27.7 White Blood Count 13.6 H Red Blood Count 4.16 L Hemoglobin 12.7 Hematocrit 41.1 Mean Corpuscular Volume 98.8 Mean Corpuscular Hemoglobin 30.5 Mean Corpuscular Hemoglobin Concent 30.9 L Red Cell Distribution Width 16.5 H Platelet Count 157 # Mean Platelet Volume 11.7 H Immature Granulocytes % 0.400 Neutrophils % 82.8 H Lymphocytes % 9.7 L Monocytes % 6.5 Eosinophils % 0.5 Basophils % 0.1 Nucleated Red Blood Cells % 0.0 Immature Granulocytes # 0.050 H Neutrophils # 11.3 H Lymphocytes # 1.3 Monocytes # 0.9 Eosinophils # 0.1 Basophils # 0.0 Nucleated Red Blood Cells # 0.0 Sodium Level 138 Potassium Level 3.7 Chloride Level 99 Carbon Dioxide Level 34 H Anion Gap 5 Blood Urea Nitrogen 15 Creatinine 0.63 Est Glomerular Filtrat Rate mL/min > 60 Glucose Level 86 Calcium Level 8.3 L Magnesium Level 1.7 Total Bilirubin 1.2 Direct Bilirubin 0.00 Indirect Bilirubin 1.2 H Aspartate Amino Transf (AST/SGOT) 70 H Alanine Aminotransferase (ALT/SGPT) 762 H Alkaline Phosphatase 67 Total Protein 6.0 L Albumin 3.1 L Globulin 2.90 Albumin/Globulin Ratio 1.06 Exam/Review of Systems Exam Vitals Vital Signs Date Temp Pulse Resp B/P (MAP) Pulse Ox O2 O2 Flow FiO2 Time Delivery Rate 06/09/18 90 12:02 06/09/18 98.0 22 129/70 96 Room Air 11:55 (89) 06/09/18 21 08:48 06/09/18 2.0 00:14 Intake and Output 06/08/18 06/08/18 06/09/18 1515:00 23:00 07:00 IntakeIntake Total 75 ml 1000 ml 400 ml BalanceBalance 75 ml 1000 ml 400 ml Results Results 24hrs Laboratory Tests Test 06/08/18 15:49 06/09/18 00:28 06/09/18 05:29 Activated Partial Thromboplast Time 54.4 H 27.7 White Blood Count 13.6 H Red Blood Count 4.16 L Hemoglobin 12.7 Hematocrit 41.1 Mean Corpuscular Volume 98.8 Mean Corpuscular Hemoglobin 30.5 Mean Corpuscular Hemoglobin Concent 30.9 L Red Cell Distribution Width 16.5 H Platelet Count 157 # Mean Platelet Volume 11.7 H Immature Granulocytes % 0.400 Neutrophils % 82.8 H Lymphocytes % 9.7 L Monocytes % 6.5 Eosinophils % 0.5 Basophils % 0.1 Nucleated Red Blood Cells % 0.0 Immature Granulocytes # 0.050 H Neutrophils # 11.3 H Lymphocytes # 1.3 Monocytes # 0.9 Eosinophils # 0.1 Basophils # 0.0 Nucleated Red Blood Cells # 0.0 Sodium Level 138 Potassium Level 3.7 Chloride Level 99 Carbon Dioxide Level 34 H Anion Gap 5 Blood Urea Nitrogen 15 Creatinine 0.63 Est Glomerular Filtrat Rate mL/min > 60 Glucose Level 86 Calcium Level 8.3 L Magnesium Level 1.7 Total Bilirubin 1.2 Direct Bilirubin 0.00 Indirect Bilirubin 1.2 H Aspartate Amino Transf (AST/SGOT) 70 H Alanine Aminotransferase (ALT/SGPT) 762 H Alkaline Phosphatase 67 Total Protein 6.0 L Albumin 3.1 L Globulin 2.90 Albumin/Globulin Ratio 1.06 Medications Medication Current Medications IV Flush (NS 3 ml) 3 ml PER PROTOCOL IV ; Start 06/04/18 at 00:00 Ondansetron HCl (Zofran Inj) 4 mg Q6H PRN IV NAUSEA/VOMITING; Start 06/04/18 at 00:00 Acetaminophen (Tylenol Tab) 650 mg Q6H PRN PO .PAIN 1-3 OR TEMP; Start 06/04/18 at 00:00 Docusate Sodium (Colace) 100 mg Q12H PRN PO .CONSTIPATION; Start 06/04/18 at 00:00 Bisacodyl (Dulcolax) 5 mg DAILY PRN PO .CONSTIPATION; Start 06/04/18 at 00:00 Pantoprazole (Protonix Tab) 40 mg DAILY@06 PO Last administered on 06/09/18at 05:39; Admin Dose 40 MG; Start 06/04/18 at 06:00 Amlodipine Besylate (Norvasc) 5 mg DAILY PO Last administered on 06/09/18at 10:48; Admin Dose 5 MG; Start 06/04/18 at 09:00 Baclofen (Lioresal) 10 mg BID PO Last administered on 06/09/18 10:47; Admin Dose 10 MG; Start 06/04/18 at 00:30 Hydroxyzine HCl (Atarax) 10 mg TID PO Last administered on 06/09/18 10:47; Admin Dose 10 MG; Start 06/04/18 at 09:00 Fluticasone/ Vilanterol (Breo Ellipta 100-25 Mcg Inh) 1 inh DAILY INH Last administered on 06/09/18 10:46; Admin Dose 1 INH; Start 06/04/18 at 09:00 Miscellaneous Information (Pending Santyl Order For Wound Care) This patient savage... PRN PRN XX WOUND CARE; Start 06/04/18 at 03:00 Rifaximin (Xifaxan) 550 mg BID PO Last administered on 06/09/18 10:48; Admin Dose 550 MG; Start 06/04/18 at 11:30 Lactulose (Enulose) 30 gm Q8 PO Last administered on 06/09/18 05:41; Admin Dose 30 GM; Start 06/05/18 at 14:00 Prednisone (Prednisone) 20 mg DAILY PO Last administered on 06/09/18 10:47; Admin Dose 20 MG; Start 06/06/18 at 09:00 Ipratropium [place] (Atrovent 0.02% (Neb)) 0.5 mg Q8H RESP THERAPY HHN Last administered on 06/09/18 08:47; Admin Dose 0.5 MG; Start 06/06/18 at 16:00 Levalbuterol (Xopenex Neb) 1.25 mg Q8H RESP THERAPY HHN Last administered on 06/09/18 08:47; Admin Dose 1.25 MG; Start 06/06/18 at 16:00 Sertraline HCl (Zoloft) 50 mg DAILY PO Last administered on 06/09/18 10:48; Admin Dose 50 MG; Start 06/07/18 at 09:00 Methadone HCl (Methadone Liq) 68 mg DAILY PO Last administered on 06/09/18 10:45; Admin Dose 68 MG; Start 06/06/18 at 15:30 Simethicone (Mylicon) 160 mg Q6H PRN PO DISTENSION/GAS/BLOATING Last administered on 06/07/18 01:59; Admin Dose 160 MG; Start 06/07/18 at 01:00 Al Hydrox/Mg Hydrox/Simethicone (Mag-Al Plus) 30 ml Q6H PRN PO GASTROINTESTINAL UPSET; Start 06/07/18 at 01:00 Oxymetazoline HCl (Afrin [place]) 2 spray BID NASAL Last administered on 06/09/18at 10:47; Admin Dose 2 SPRAY; Start 06/08/18 at 21:00 Apixaban (Eliquis) 10 mg BID PO Last administered on 06/09/18at 10:47; Admin Dose 10 MG; Start 06/08/18 at 21:00 RICKIE DALTON MD Jun 09, 2018 12:42
--- NOTE | 2018-06-09 15:17 | PN ---
Date/Time of Note Date/Time of Note DATE: 06/09/18 TIME: 15:09 Assessment/Plan VTE Pro[place]axis [place] [facility] [place]: 3 SCD applied (from Ns): Yes Pharmacological prophylaxis: other (scds) Lines/Catheters IV Catheter Type (from [facility] [place] Urinary Cath still in place: No Assessment/Plan Hospital Course Assessment/Plan Assessment: Transaminitis- trending down --Likely multifactorial -Liver shock from underlying cardiac etiology -Hx of ETOH use -Hep C (Hep C AB +, RNA [id number]) NSTEMI, type 2 Metabolic encephalopathy- improved Leukocytosis- on prednisone Questionable Liver cirrhosis - AFP 4.95 -Liver us - Liver is normal in echogenicity and measures 12.6 cm Coagulopathy Thrombocytopenia- improving COPD/emphysema Hypertension Chronic kidney disease History of alcohol use- per pt/family quit over 1 year ago History of Heroin abuse -on methadone PE confirmed on CTA - started on heparin gtt -medial right middle lobe and inferomedial right lower lobe. Plan: Continue rifaximin/lactulose-titrate to 3 bowel movements per day- patient refusing lactulose -counseled on importance of medical Patient appears stable for out-pt management from GI point of view Pt to f/u as out-pt for Hepatitis C treatment and out-pt endoscopies Patient seen in collaboration with Dr. Campos Subjective: Restin gin bed, no c/o n/v or abd pain. States fair po intake, needs assistance No over signs of GI bleed, noted PHYSICAL EXAMINATION: GENERAL: Cachectic, alert and forgetful, in no acute distress SKIN: No lesions HEENT: No lesions CHEST: Inspection within normal limits. CARDIOVASCULAR: Heart: Regular rate and rhythm RESPIRATORY: Lungs clear to auscultation GASTROINTESTINAL AND LIVER: Abdomen: Soft, non tenderness, non-distended, no hernias, no masses, no organomegaly, no ascites, no guarding, no rebound tenderness, normoactive bowel sounds. Rectal: Deferred. GENITOURINARY: Female genitalia within normal limits. EXTREMITIES: No cyanosis, clubbing or edema. Result Diagram: 06/09/18 0529 06/09/1829 Results 24hrs Laboratory Tests Test 06/08/18 15:49 06/09/18 00:28 06/09/18 05:29 Activated Partial Thromboplast Time 54.4 H 27.7 White Blood Count 13.6 H Red Blood Count 4.16 L Hemoglobin 12.7 Hematocrit 41.1 Mean Corpuscular Volume 98.8 Mean Corpuscular Hemoglobin 30.5 Mean Corpuscular Hemoglobin Concent 30.9 L Red Cell Distribution Width 16.5 H Platelet Count 157 # Mean Platelet Volume 11.7 H Immature Granulocytes % 0.400 Neutrophils % 82.8 H Lymphocytes % 9.7 L Monocytes % 6.5 Eosinophils % 0.5 Basophils % 0.1 Nucleated Red Blood Cells % 0.0 Immature Granulocytes # 0.050 H Neutrophils # 11.3 H Lymphocytes # 1.3 Monocytes # 0.9 Eosinophils # 0.1 Basophils # 0.0 Nucleated Red Blood Cells # 0.0 Sodium Level 138 Potassium Level 3.7 Chloride Level 99 Carbon Dioxide Level 34 H Anion Gap 5 Blood Urea Nitrogen 15 Creatinine 0.63 Est Glomerular Filtrat Rate mL/min > 60 Glucose Level 86 Calcium Level 8.3 L Magnesium Level 1.7 Total Bilirubin 1.2 Direct Bilirubin 0.00 Indirect Bilirubin 1.2 H Aspartate Amino Transf (AST/SGOT) 70 H Alanine Aminotransferase (ALT/SGPT) 762 H Alkaline Phosphatase 67 Total Protein 6.0 L Albumin 3.1 L Globulin 2.90 Albumin/Globulin Ratio 1.06 Exam/Review of Systems Exam Vitals Vital Signs Date Temp Pulse Resp B/P (MAP) Pulse Ox O2 O2 Flow FiO2 Time Delivery Rate 06/09/18 90 12:02 06/09/18 98.0 22 129/70 96 Room Air 11:55 (89) 06/09/18 21 08:48 06/09/18 2.0 07:35 Intake and Output 06/08/18 06/08/18 06/09/18 1515:00 23:00 07:00 IntakeIntake Total 75 ml 1000 ml 400 ml BalanceBalance 75 ml 1000 ml 400 ml Results Results 24hrs Laboratory Tests Test 06/08/18 15:49 06/09/18 00:28 06/09/18 05:29 Activated Partial Thromboplast Time 54.4 H 27.7 White Blood Count 13.6 H Red Blood Count 4.16 L Hemoglobin 12.7 Hematocrit 41.1 Mean Corpuscular Volume 98.8 Mean Corpuscular Hemoglobin 30.5 Mean Corpuscular Hemoglobin Concent 30.9 L Red Cell Distribution Width 16.5 H Platelet Count 157 # Mean Platelet Volume 11.7 H Immature Granulocytes % 0.400 Neutrophils % 82.8 H Lymphocytes % 9.7 L Monocytes % 6.5 Eosinophils % 0.5 Basophils % 0.1 Nucleated Red Blood Cells % 0.0 Immature Granulocytes # 0.050 H Neutrophils # 11.3 H Lymphocytes # 1.3 Monocytes # 0.9 Eosinophils # 0.1 Basophils # 0.0 Nucleated Red Blood Cells # 0.0 Sodium Level 138 Potassium Level 3.7 Chloride Level 99 Carbon Dioxide Level 34 H Anion Gap 5 Blood Urea Nitrogen 15 Creatinine 0.63 Est Glomerular Filtrat Rate mL/min > 60 Glucose Level 86 Calcium Level 8.3 L Magnesium Level 1.7 Total Bilirubin 1.2 Direct Bilirubin 0.00 Indirect Bilirubin 1.2 H Aspartate Amino Transf (AST/SGOT) 70 H Alanine Aminotransferase (ALT/SGPT) 762 H Alkaline Phosphatase 67 Total Protein 6.0 L Albumin 3.1 L Globulin 2.90 Albumin/Globulin Ratio 1.06 Medications Medication Current Medications IV Flush (NS 3 ml) 3 ml PER PROTOCOL IV ; Start 06/04/18 at 00:00 Ondansetron HCl (Zofran Inj) 4 mg Q6H PRN IV NAUSEA/VOMITING; Start 06/04/18 at 00:00 Acetaminophen (Tylenol Tab) 650 mg Q6H PRN PO .PAIN 1-3 OR TEMP; Start 06/04/18 at 00:00 Pantoprazole (Protonix Tab) 40 mg DAILY@06 PO Last administered on 06/09/18 05:39; Admin Dose 40 MG; Start 06/04/18 at 06:00 Amlodipine Besylate (Norvasc) 5 mg DAILY PO Last administered on 06/09/18 10:48; Admin Dose 5 MG; Start 06/04/18 at 09:00 Baclofen (Lioresal) 10 mg BID PO Last administered on 06/09/18 10:47; Admin Dose 10 MG; Start 06/04/18 at 00:30 Hydroxyzine HCl (Atarax) 10 mg TID PO Last administered on 06/09/18 14:13; Admin Dose 10 MG; Start 06/04/18 at 09:00 Fluticasone/ Vilanterol (Breo Ellipta 100-25 Mcg Inh) 1 inh DAILY INH Last administered on 06/09/18 10:46; Admin Dose 1 INH; Start 06/04/18 at 09:00 Miscellaneous Information (Pending Santyl Order For Wound Care) This patient savage... PRN PRN XX WOUND CARE; Start 06/04/18 at 03:00 Rifaximin (Xifaxan) 550 mg BID PO Last administered on 06/09/18 10:48; Admin Dose 550 MG; Start 06/04/18 at 11:30 Lactulose (Enulose) 30 gm Q8 PO Last administered on 06/09/18 05:41; Admin Dose 30 GM; Start 06/05/18 at 14:00 Prednisone (Prednisone) 20 mg DAILY PO Last administered on 06/09/18 10:47; Admin Dose 20 MG; Start 06/06/18 at 09:00 Ipratropium [place] (Atrovent 0.02% (Neb)) 0.5 mg Q8H RESP THERAPY HHN Last administered on 06/09/18 08:47; Admin Dose 0.5 MG; Start 06/06/18 at 16:00 Levalbuterol (Xopenex Neb) 1.25 mg Q8H RESP THERAPY HHN Last administered on 06/09/18 08:47; Admin Dose 1.25 MG; Start 06/06/18 at 16:00 Sertraline HCl (Zoloft) 50 mg DAILY PO Last administered on 06/09/18 10:48; Admin Dose 50 MG; Start 06/07/18 at 09:00 Methadone HCl (Methadone Liq) 68 mg DAILY PO Last administered on 06/09/18 10:45; Admin Dose 68 MG; Start 06/06/18 at 15:30 Simethicone (Mylicon) 160 mg Q6H PRN PO DISTENSION/GAS/BLOATING Last administered on 06/07/18 01:59; Admin Dose 160 MG; Start 06/07/18 at 01:00 Al Hydrox/Mg Hydrox/Simethicone (Mag-Al Plus) 30 ml Q6H PRN PO GASTROINTESTINAL UPSET; Start 06/07/18 at 01:00 Oxymetazoline HCl (Afrin [place]) 2 spray BID NASAL Last administered on 06/09/18 10:47; Admin Dose 2 SPRAY; Start 06/08/18 at 21:00 Apixaban (Eliquis) 10 mg BID PO Last administered on 06/09/18at 10:47; Admin Dose 10 MG; Start 06/08/18 at 21:00 Cholecalciferol (Vitamin D) 2,000 unit DAILY PO ; Start 06/10/18 at 09:00 BRETT LEAVITT Jun 09, 2018 15:17
[2018-06-09] MEDS: ACETAMINOPHEN 325 MG TAB PO PRN (16:24)
[2018-06-10] VITALS (12 sets, daily range): BP systolic 115–145; BP diastolic 68–78; PULSE 76–125; RESP 20–22
[2018-06-10] MEDS: IPRATROPIUM (NEB) 0.5 MG/2.5 ML AMP HHN SCH ×3 (00:42→16:07)
[2018-06-10] MEDS: LEVALBUTEROL (NEB) 1.25 MG/0.5 ML AMP HHN SCH ×3 (00:42→16:08)
[2018-06-10] MEDS: PANTOPRAZOLE (EC) 40 MG TAB PO SCH (06:00)
[2018-06-10] MEDS: LACTULOSE 30ML CUP PO SCH ×3 (06:00→21:11)
--- NOTE | 2018-06-10 09:20 | CONS ---
Assessment/Plan Assessment/Plan Hospital Course (Demo Recall) Acute pulmonary embolism:suspicion on echo with thrombus seen in the pulmonary artery. Confirmed by CTA 06/07. Likely explains all her presenting abnormalities. Now anticoagulated. NSTEMI: trop 2 at [facility]. Downtrended. EF preserved. No symptoms. CTA confirmed PE which is likely the reason. Acute renal failure: Cr 2.4 with hyperkalemia on admission. Resolved Acute liver failure: AST/ALT 6000s, resolving Acute on chronic respiratory failure: thought to be due to COPD but likely was from PE Acute on chronic COPD exacerbation Pulm HTN: PAP 60s Hep C and alcohol cirrhosis coagulopathy/thrombocytopenia heroin use -continue Eliquis -no ASA -amlodipine 5mg otherwise ok for d/c from my perspective Consultation Date/Type/Reason Admit Date/Time Jun 03, 2018 at 22:06 Initial Consult Date 06/04/18 Type of Consult Cardiology Requesting Provider: ZHANG WARE NP Date/Time of Note DATE: 06/10/18 TIME: 09:19 24 HR Interval Summary Free Text/Dictation No events. Exam/Review of Systems Vital Signs Vitals Vital Signs Date Temp Pulse Resp B/P (MAP) Pulse Ox O2 O2 Flow FiO2 Time Delivery Rate 06/10/18 102 18 95 21 08:10 06/10/18 97.6 144/77 Room Air 07:46 (99) 06/09/18 2.0 07:35 Intake and Output 06/09/18 06/09/18 06/10/18 1515:00 23:00 07:00 IntakeIntake Total 630 ml 1200 ml OutputOutput Total 800 ml BalanceBalance 630 ml 400 ml Exam Constitutional: alert, oriented Psych: no complaints, nl mood/affect Neck: No jvd Respiratory: clear to auscultation, diminished breath sounds; No crackles/rales Cardiovascular: regular rate and rhythm; No edema Gastrointestinal: soft, non-tender; No distended Neurological: nl mental status, nl speech Labs Result Diagram: 06/09/1829 06/09/18528 Medications Medications Current Medications IV Flush (NS 3 ml) 3 ml PER PROTOCOL IV ; Start 06/04/18 at 00:00 Ondansetron HCl (Zofran Inj) 4 mg Q6H PRN IV NAUSEA/VOMITING; Start 06/04/18 at 00:00 Acetaminophen (Tylenol Tab) 650 mg Q6H PRN PO .PAIN 1-3 OR TEMP Last administered on 06/09/18 16:24; Admin Dose 650 MG; Start 06/04/18 at 00:00 Pantoprazole (Protonix Tab) 40 mg DAILY@06 PO Last administered on 06/09/18 05:39; Admin Dose 40 MG; Start 06/04/18 at 06:00 Amlodipine Besylate (Norvasc) 5 mg DAILY PO Last administered on 06/09/18 10:48; Admin Dose 5 MG; Start 06/04/18 at 09:00 Baclofen (Lioresal) 10 mg BID PO Last administered on 06/09/18 21:55; Admin Dose 10 MG; Start 06/04/18 at 00:30 Hydroxyzine HCl (Atarax) 10 mg TID PO Last administered on 06/09/18 14:13; Admin Dose 10 MG; Start 06/04/18 at 09:00 Fluticasone/ Vilanterol (Breo Ellipta 100-25 Mcg Inh) 1 inh DAILY INH Last administered on 06/09/18 10:46; Admin Dose 1 INH; Start 06/04/18 at 09:00 Miscellaneous Information (Pending [facility] Order For Wound Care) This patient savage... PRN PRN XX WOUND CARE; Start 06/04/18 at 03:00 Rifaximin (Xifaxan) 550 mg BID PO Last administered on 06/09/18 10:48; Admin Dose 550 MG; Start 06/04/18 at 11:30 Lactulose (Enulose) 30 gm Q8 PO Last administered on 06/09/18 05:41; Admin Dose 30 GM; Start 06/05/18 at 14:00 Prednisone (Prednisone) 20 mg DAILY PO Last administered on 06/09/18 10:47; Admin Dose 20 MG; Start 06/06/18 at 09:00 Ipratropium [place] (Atrovent 0.02% (Neb)) 0.5 mg Q8H RESP THERAPY HHN Last administered on 06/10/18 08:10; Admin Dose 0.5 MG; Start 06/06/18 at 16:00 Levalbuterol (Xopenex Neb) 1.25 mg Q8H RESP THERAPY HHN Last administered on 06/10/18 08:10; Admin Dose 1.25 MG; Start 06/06/18 at 16:00 Sertraline HCl (Zoloft) 50 mg DAILY PO Last administered on 06/09/18 10:48; Admin Dose 50 MG; Start 06/07/18 at 09:00 Methadone HCl (Methadone Liq) 68 mg DAILY PO Last administered on 06/09/18 10:45; Admin Dose 68 MG; Start 06/06/18 at 15:30 Simethicone (Mylicon) 160 mg Q6H PRN PO DISTENSION/GAS/BLOATING Last a dministered on 06/07/18 01:59; Admin Dose 160 MG; Start 06/07/18 at 01:00 Al Hydrox/Mg Hydrox/Simethicone (Mag-Al Plus) 30 ml Q6H PRN PO GASTROINTESTINAL UPSET; Start 06/07/18 at 01:00 Oxymetazoline HCl (Afrin [place]) 2 spray BID NASAL Last administered on 06/09/18at 10:47; Admin Dose 2 SPRAY; Start 06/08/18 at 21:00 Apixaban (Eliquis) 10 mg BID PO Last administered on 06/09/18 21:56; Admin Dose 10 MG; Start 06/08/18 at 21:00 Cholecalciferol (Vitamin D) 2,000 unit DAILY PO ; Start 06/10/18 at 09:00 WILFRID OCAMPO Jun 10, 2018 09:20
[2018-06-10] MEDS: hydrOXYzine HCL 10 MG TAB PO SCH ×3 (09:27→21:10)
[2018-06-10] MEDS: BACLOFEN 10 MG TAB PO SCH ×2 (09:27→21:10)
[2018-06-10] MEDS: RIFAXIMIN 550 MG TAB PO SCH ×2 (09:27→21:10)
[2018-06-10] MEDS: SERTRALINE 50 MG TAB PO SCH (09:28)
[2018-06-10] MEDS: CHOLECALCIFEROL 2,000 UNIT CAP PO SCH (09:28)
[2018-06-10] MEDS: AMLODIPINE 5 MG TAB PO SCH (09:28)
[2018-06-10] MEDS: APIXABAN 5 MG TABLET PO SCH ×2 (09:28→21:10)
[2018-06-10] MEDS: predniSONE 20 MG TAB PO SCH (09:28)
[2018-06-10] MEDS: OXYMETAZOLINE 0.05% 15 ML NAS SPRAY NASAL SCH ×2 (09:29→21:11)
[2018-06-10] MEDS: FLUTICASONE/VILANTEROL 100-25 INH SCH (09:29)
[2018-06-10] MEDS: METHADONE (1 MG/ML 5 ML PO UD SYG) PO SCH (11:01)
[2018-06-10] MEDS: METHADONE 10 MG TAB PO SCH (11:02)
--- NOTE | 2018-06-10 15:53 | PN ---
Date/Time of Note Date/Time of Note DATE: 06/10/18 TIME: 15:41 Assessment/Plan VTE Prophylaxis [place] [facility] [place]: 3 [place]CD [place] [facility] [place] Yes Pharmacological prophylaxis: NA/contraindicated Pharm contraindication: liver dx Lines/Catheters IV [facility]ter Type (from [facility]): Peripheral IV Urinary Cath still in place: No Assessment/Plan Assessment/Plan Assessment: Transaminitis- trending down --Likely multifactorial -Liver shock from underlying cardiac etiology -Hx of ETOH use -Hep C (Hep C AB +, RNA [id number]) NSTEMI, type 2 Metabolic encephalopathy- improved Leukocytosis- on prednisone Questionable Liver cirrhosis - AFP 4.95 -Liver us - Liver is normal in echogenicity and measures 12.6 cm Coagulopathy Thrombocytopenia- improving COPD/emphysema Hypertension Chronic kidney disease History of alcohol use- per pt/family quit over 1 year ago History of Heroin abuse -on methadone PE confirmed on CTA - started on heparin gtt -medial right middle lobe and inferomedial right lower lobe. Plan: Continue rifaximin/lactulose-titrate to 3 bowel movements per day- patient refusing lactulose -counseled on importance of medical Patient appears stable for out-pt management from GI point of view Pt to f/u as out-pt for Hepatitis C treatment and out-pt endoscopies Patient seen in collaboration with Dr. Campos Subjective: Patient is agitated and would like her heel protectors to be removed. She is having regular BM's on Lactulose. LFT's are trending down, WBC remains elevated. No over signs of GI bleed. Continue observation. PHYSICAL EXAMINATION: GENERAL: Cachectic, alert and forgetful, in no acute distress SKIN: No lesions HEENT: No lesions CHEST: Inspection within normal limits. CARDIOVASCULAR: Heart: Regular rate and rhythm RESPIRATORY: Lungs clear to auscultation GASTROINTESTINAL AND LIVER: Abdomen: Soft, non tenderness, non-distended, no hernias, no masses, no organomegaly, no ascites, no guarding, no rebound tenderness, normoactive bowel sounds. Rectal: Deferred. GENITOURINARY: Female genitalia within normal limits. EXTREMITIES: No cyanosis, clubbing or edema. Result Diagram: 06/09/18 0529 06/09/18 0529 Results 24hrs Laboratory Tests Test 06/10/18 12:45 Lab Scanned Report REFERENCE LAB CC: JOSE GUADALUPE BARNES [place] ; Exam/Review of Systems Exam Vitals Vital Signs Date Temp Pulse Resp B/P (MAP) Pulse Ox O2 O2 Flow FiO2 Time Delivery Rate 06/10/18 105 12:10 06/10/18 97.8 22 128/71 96 Room Air 11:29 (90) 06/10/18 2.0 09:00 06/10/18 21 08:10 Intake and Output 06/09/18 06/09/18 06/10/18 1515:00 23:00 07:00 IntakeIntake Total 630 ml 1200 ml OutputOutput Total 800 ml BalanceBalance 630 ml 400 ml Results Results 24hrs Laboratory Tests Test 06/10/18 12:45 Lab Scanned Report REFERENCE LAB Medications Medication Current Medications IV Flush (NS 3 ml) 3 ml PER PROTOCOL IV ; Start 06/04/18 at 00:00 Ondansetron HCl (Zofran Inj) 4 mg Q6H PRN IV NAUSEA/VOMITING; Start 06/04/18 at 00:00 Acetaminophen (Tylenol Tab) 650 mg Q6H PRN PO .PAIN 1-3 OR TEMP Last administered on 06/09/18 16:24; Admin Dose 650 MG; Start 06/04/18 at 00:00 Pantoprazole (Protonix Tab) 40 mg DAILY@06 PO Last administered on 06/09/18 05:39; Admin Dose 40 MG; Start 06/04/18 at 06:00 Amlodipine Besylate (Norvasc) 5 mg DAILY PO Last administered on 06/10/18 09:28; Admin Dose 5 MG; Start 06/04/18 at 09:00 Baclofen (Lioresal) 10 mg BID PO Last administered on 06/10/18 09:27; Admin Dose 10 MG; Start 06/04/18 at 00:30 Hydroxyzine HCl (Atarax) 10 mg TID PO Last administered on 06/10/18 13:40; Admin Dose 10 MG; Start 06/04/18 at 09:00 Fluticasone/ Vilanterol (Breo Ellipta 100-25 Mcg Inh) 1 inh DAILY INH Last administered on 06/10/18 09:29; Admin Dose 1 INH; Start 06/04/18 at 09:00 [facility] This patient savage... PRN PRN XX WOUND CARE; Start 06/04/18 at 03:00 Rifaximin (Xifaxan) 550 mg BID PO Last administered on 06/10/18 09:27; Admin Dose 550 MG; Start 06/04/18 at 11:30 Lactulose (Enulose) 30 gm Q8 PO Last administered on 06/09/18 05:41; Admin Dose 30 GM; Start 06/05/18 at 14:00 Prednisone (Prednisone) 20 mg DAILY PO Last administered on 06/10/18 09:28; Admin Dose 20 MG; Start 06/06/18 at 09:00 Ipratropium [place] (Atrovent 0.02% (Neb)) 0.5 mg Q8H RESP THERAPY HHN Last administered on 06/10/18 08:10; Admin Dose 0.5 MG; Start 06/06/18 at 16:00 Levalbuterol (Xopenex Neb) 1.25 mg Q8H RESP THERAPY HHN Last administered on 06/10/18 08:10; Admin Dose 1.25 MG; Start 06/06/18 at 16:00 Sertraline HCl (Zoloft) 50 mg DAILY PO Last administered on 06/10/18 09:28; Admin Dose 50 MG; Start 06/07/18 at 09:00 Simethicone (Mylicon) 160 mg Q6H PRN PO DISTENSION/GAS/BLOATING Last administered on 06/07/18 01:59; Admin Dose 160 MG; Start 06/07/18 at 01:00 Al Hydrox/Mg Hydrox/Simethicone (Mag-Al Plus) 30 ml Q6H PRN PO GASTROINTESTINAL UPSET; Start 06/07/18 at 01:00 Oxymetazoline HCl (Afrin [place]) 2 spray BID NASAL Last administered on 06/10/18 09:29; Admin Dose 2 SPRAY; Start 06/08/18 at 21:00 Apixaban (Eliquis) 10 mg BID PO Last administered on 06/10/18 09:28; Admin Dose 10 MG; Start 06/08/18 at 21:00 Cholecalciferol (Vitamin D) 2,000 unit DAILY PO Last administered on 06/10/18 09:28; Admin Dose 2,000 UNIT; Start 06/10/18 at 09:00 Methadone HCl (Methadone) 60 mg DAILY PO Last administered on 06/10/18at 11:02; Admin Dose 60 MG; Start 06/10/18 at 10:30 Methadone HCl (Methadone Liq) 8 mg DAILY PO Last administered on 06/10/18at 11:01; Admin Dose 8 MG; Start 06/10/18 at 10:30 KRIS BAKER NP Jun 10, 2018 15:53
--- NOTE | 2018-06-10 20:31 | PN ---
Date/Time of Note Date/Time of Note DATE: 06/10/18 TIME: 20:29 Assessment/Plan VTE Prophylaxis Risk score (from Nsg)>0 risk: 3 SCD applied (from Nsg): Yes SCD contraindicated: low risk/ambulating Pharmacological prophylaxis: other Lines/Catheters IV Catheter Type (from Nrsg): Peripheral IV Urinary Cath still in place: No Assessment/Plan Hospital Course Assessment plan 1. SIRS secondary to #3 Stable improved, Taper off treatment. 2. Ac PE; No lwr ext DVT; related to immobility? cont Eliquis. Outpt hematology workup. 3. TYPE II CO, stable, treat #1/2. No need for cath 4. Nonadherence, counseled 5. Methadone use/chronic pain stable observe 6. Past heroin and meth 7. Ftt; PT home health safety on discharge. vs snf. Updated family 8. Chronic COPD/emphysema? Consider outpatient PFTs 9. Past tobacco 10. Abn LFTs, avoid statin for now. Differential: Shock vs passive congestion 11. Dysphagia? Appears stable at present 12. Hepatitis C viremia: No bowen evidence of cirrhosis on ultrasound at this time. 13. Pulmonary hypertension vs cor pulmonale? Acutely due to PE but possible underlying issues due to chronic COPD 14. Chronic respiratory failure on home O2? 15. Abn cxr from [place]? However CT does not show any nodules. Q Gold ordered 16. Acute psychosis? Cont reorientation and reassurance. Haldol as needed. Ch ecked ammonia level 17. Dilated CBD, unchanged according to radiology/appears similar to previous i maging and 18. Cirrhosis? 19. Chr liver disease sequelae with ascites/ Portal hypertension? 20. Constipation 21. Compression fracture status T6/7 22. Epistaxis mild, Afrin added 23. PTSD? 24. Nonadherence to medications this morning. Nonadherence to physical therapy activity today. Counseling regarding the risk of health challenges. S: 06/06 no distress occasional cough without any hemoptysis. No chest pain fever. 06/07: No distress. Agitated overnight. Presently follows commands no chest pain fever 06/08: Events noted. No fever over distress. 06/09: Refusing laxatives. Risk of coma/encephalopathy discussed. Patient is awake alert oriented to year, no fever or abdominal pain. 06/10: Up in chair eating. Denies any chest pain dyspnea distress. Awake alert oriented to month year [place]. I discussed the requirements of medications to keep her health stable. Refuse medications and physical therapy today. O: Vss; sinus rhythm PE No pallor JVD Reg no mrg Mostly clear no tachypnea Bowel sounds present nt nd no RRG No edema//Homans Neuro: Grossly nonfocal Result Diagram: 06/09/18 0529 06/09/18 0529 Results 24hrs Laboratory Tests Test 06/10/18 12:45 Lab Scanned Report REFERENCE LAB Exam/Review of Systems Exam Vitals Vital Signs Date Temp Pulse Resp B/P (MAP) Pulse Ox O2 O2 Flow FiO2 Time Delivery Rate 06/10/18 113 20:00 06/10/18 Nasal 2.0 20:00 Cannula 06/10/18 98.4 20 121/68 93 19:13 (85) 06/10/18 21 16:08 Intake and Output 06/09/18 06/09/18 06/10/18 1515:00 23:00 07:00 IntakeIntake Total 630 ml 1200 ml OutputOutput Total 800 ml BalanceBalance 630 ml 400 ml Results Results 24hrs Laboratory Tests Test 06/10/18 12:45 Lab Scanned Report REFERENCE LAB Medications Medication Current Medications IV Flush (NS 3 ml) 3 ml PER PROTOCOL IV ; Start 06/04/18 at 00:00 Ondansetron HCl (Zofran Inj) 4 mg Q6H PRN IV NAUSEA/VOMITING; Start 06/04/18 at 00:00 Acetaminophen (Tylenol Tab) 650 mg Q6H PRN PO .PAIN 1-3 OR TEMP Last administered on 06/09/18at 16:24; Admin Dose 650 MG; Start 06/04/18 at 00:00 Pantoprazole (Protonix Tab) 40 mg DAILY@06 PO Last administered on 06/09/18at 05:39; Admin Dose 40 MG; Start 06/04/18 at 06:00 Amlodipine Besylate (Norvasc) 5 mg DAILY PO Last administered on 06/10/18at 09:28; Admin Dose 5 MG; Start 06/04/18 at 09:00 Baclofen (Lioresal) 10 mg BID PO Last administered on 06/10/18at 09:27; Admin Dose 10 MG; Start 06/04/18 at 00:30 Hydroxyzine HCl (Atarax) 10 mg TID PO Last administered on 06/10/18 13:40; Admin Dose 10 MG; Start 06/04/18 at 09:00 Fluticasone/ Vilanterol (Breo Ellipta 100-25 Mcg Inh) 1 inh DAILY INH Last administered on 06/10/18 09:29; Admin Dose 1 INH; Start 06/04/18 at 09:00 Miscellaneous Information (Pending Santyl Order For Wound Care) This patient savage... PRN PRN XX WOUND CARE; Start 06/04/18 at 03:00 Rifaximin (Xifaxan) 550 mg BID PO Last administered on 06/10/18 09:27; Admin Dose 550 MG; Start 06/04/18 at 11:30 Lactulose (Enulose) 30 gm Q8 PO Last administered on 06/09/18 05:41; Admin Dose 30 GM; Start 06/05/18 at 14:00 Prednisone (Prednisone) 20 mg DAILY PO Last administered on 06/10/18 09:28; Admin Dose 20 MG; Start 06/06/18 at 09:00 Ipratropium [place] (Atrovent 0.02% (Neb)) 0.5 mg Q8H RESP THERAPY HHN Last administered on 06/10/18 16:07; Admin Dose 0.5 MG; Start 06/06/18 at 16:00 Levalbuterol (Xopenex Neb) 1.25 mg Q8H RESP THERAPY HHN Last administered on 06/10/18 16:08; Admin Dose 1.25 MG; Start 06/06/18 at 16:00 Sertraline HCl (Zoloft) 50 mg DAILY PO Last administered on 06/10/18 09:28; Admin Dose 50 MG; Start 06/07/18 at 09:00 Simethicone (Mylicon) 160 mg Q6H PRN PO DISTENSION/GAS/BLOATING Last administered on 06/07/18 01:59; Admin Dose 160 MG; Start 06/07/18 at 01:00 Al Hydrox/Mg Hydrox/Simethicone (Mag-Al Plus) 30 ml Q6H PRN PO GASTROINTESTINAL UPSET; Start 06/07/18 at 01:00 Oxymetazoline HCl (Afrin [place]) 2 spray BID NASAL Last administered on 06/10/18 09:29; Admin Dose 2 SPRAY; Start 06/08/18 at 21:00 Apixaban (Eliquis) 10 mg BID PO Last administered on 06/10/18 09:28; Admin Dose 10 MG; Start 06/08/18 at 21:00 Cholecalciferol (Vitamin D) 2,000 unit DAILY PO Last administered on 06/10/18at 09:28; Admin Dose 2,000 UNIT; Start 06/10/18 at 09:00 Methadone HCl (Methadone) 60 mg DAILY PO Last administered on 06/10/18at 11:02; Admin Dose 60 MG; Start 06/10/18 at 10:30 Methadone HCl (Methadone Liq) 8 mg DAILY PO Last administered on 06/10/18 11:01; Admin Dose 8 MG; Start 06/10/18 at 10:30 RICKIE DALTON MD Jun 10, 2018 20:31
[2018-06-10] MEDS ORDERED: LEVALBUTEROL (NEB) 1.25 MG/0.5 ML AMP HHN PRN (21:00)
[2018-06-10] MEDS ORDERED: IPRATROPIUM (NEB) 0.5 MG/2.5 ML AMP HHN PRN (21:00)
[2018-06-11 01:58] VITALS: BP 140/75; PULSE 69; RESP 19
[2018-06-11] MEDS: PANTOPRAZOLE (EC) 40 MG TAB PO SCH (05:41)
[2018-06-11] MEDS: LACTULOSE 30ML CUP PO SCH ×3 (05:42→22:00)
[2018-06-11 08:03] VITALS: BP 129/72; PULSE 65; RESP 18
[2018-06-11] MEDS: METHADONE 10 MG TAB PO SCH (09:32)
[2018-06-11] MEDS: METHADONE (1 MG/ML 5 ML PO UD SYG) PO SCH (09:33)
[2018-06-11] MEDS: CHOLECALCIFEROL 2,000 UNIT CAP PO SCH (09:34)
[2018-06-11] MEDS: BACLOFEN 10 MG TAB PO SCH ×2 (09:34→20:43)
[2018-06-11] MEDS: SERTRALINE 50 MG TAB PO SCH (09:34)
[2018-06-11] MEDS: RIFAXIMIN 550 MG TAB PO SCH ×2 (09:34→20:42)
[2018-06-11] MEDS: APIXABAN 5 MG TABLET PO SCH ×2 (09:34→20:42)
[2018-06-11] MEDS: AMLODIPINE 5 MG TAB PO SCH (09:35)
[2018-06-11] MEDS: OXYMETAZOLINE 0.05% 15 ML NAS SPRAY NASAL SCH ×2 (09:35→20:42)
[2018-06-11] MEDS: FLUTICASONE/VILANTEROL 100-25 INH SCH (09:35)
[2018-06-11] MEDS: hydrOXYzine HCL 10 MG TAB PO SCH ×2 (09:37→11:22)
[2018-06-11] MEDS ORDERED: ALPRAZOLAM 0.25 MG TAB PO ONE (12:00)
--- NOTE | 2018-06-11 12:08 | PN ---
Date/Time of Note Date/Time of Note DATE: 06/11/18 TIME: 12:06 Assessment/Plan VTE Prophylaxis Risk score (from Nsg)>0 risk: 3 SCD applied (from Nsg): Yes SCD contraindicated: low risk/ambulating Pharmacological prophylaxis: apixaban Lines/Catheters IV Catheter Type (from Nrsg): Saline Lock Urinary Cath still in place: No Assessment/Plan Hospital Course Assessment plan 1. SIRS secondary to #3 Stable improved, Taper off treatment. 2. Ac PE; No lwr ext DVT; related to immobility? cont Eliquis. Outpt hematology workup. 3. TYPE II SC, stable, treat #1/2. No need for cath 4. Nonadherence, counseled 5. Methadone use/chronic pain stable observe 6. Past heroin/ meth? 7. Ftt; PT home health safet/ pt on discharge. Updated family on Wednesday 8. Chronic COPD/emphysema? Consider outpatient PFTs 9. Past tobacco 10. Abn LFTs, avoid statin for now. Differential: Shock vs passive congestion 11. Dysphagia? Appears stable at present 12. Hepatitis C viremia: No bowen evidence of cirrhosis on ultrasound at this time. 13. Pulmonary hypertension vs cor pulmonale? Acutely due to PE but possible underlying issues due to chronic COPD 14. Chronic respiratory failure on home O2? 15. Abn cxr from [place]? However CT does not show any nodules. Q Gold ordered 16. Acute psychosis? Cont reorientation and reassurance. Haldol as needed. Checked ammonia level 17. Dilated CBD, unchanged according to radiology/appears similar to previous imaging and 18. Cirrhosis? 19. Chr liver disease sequelae with ascites/ Portal hypertension? 20. Constipation 21. Compression fracture status T6/7 22. Epistaxis mild, Afrin added 23. PTSD? 24. Nonadherence to therapy 06/10. Nonadherence to pt. Counseling regarding the risk of health challenges. S: 06/06 no distress occasional cough without any hemoptysis. No chest pain fever. 06/07: No distress. Agitated overnight. Presently follows commands no chest pain fever 06/08: Events noted. No fever over distress. 06/09: Refusing laxatives. Risk of coma/encephalopathy discussed. Patient is awake alert oriented to year, no fever or abdominal pain. 06/10: Up in chair eating. Denies any chest pain dyspnea distress. Awake alert oriented to year [place]. I discussed the requirements of medications to keep her health stable. Refuse medications and physical therapy today. 06/11: No distress, feels stable. O: Vss; sinus rhythm PE No pallor JVD Reg no mrg Mostly clear no tachypnea Bs present nt nd no RRG No edema//Homans Result Diagram: 06/09/18 0529 06/09/18 0529 Results 24hrs Laboratory Tests Test 06/10/18 12:45 Lab Scanned Report REFERENCE LAB Exam/Review of Systems Exam Vitals Vital Signs Date Temp Pulse Resp B/P (MAP) Pulse Ox O2 O2 Flow FiO2 Time Delivery Rate 06/11/18 98.3 65 18 129/72 94 08:03 (91) 06/10/18 Nasal 2.0 20:00 Cannula 06/10/18 21 16:08 Intake and Output 06/10/18 06/10/18 06/11/18 1515:00 23:00 07:00 IntakeIntake Total 1020 ml BalanceBalance 1020 ml Results Results 24hrs Laboratory Tests Test 06/10/18 12:45 Lab Scanned Report REFERENCE LAB Medications Medication Current Medications IV Flush (NS 3 ml) 3 ml PER PROTOCOL IV ; Start 06/04/18 at 00:00 Ondansetron HCl (Zofran Inj) 4 mg Q6H PRN IV NAUSEA/VOMITING; Start 06/04/18 at 00:00 Acetaminophen (Tylenol Tab) 650 mg Q6H PRN PO .PAIN 1-3 OR TEMP Last administered on 06/09/18at 16:24; Admin Dose 650 MG; Start 06/04/18 at 00:00 Pantoprazole (Protonix Tab) 40 mg DAILY@06 PO Last administered on 06/11/18 05:41; Admin Dose 40 MG; Start 06/04/18 at 06:00 Amlodipine Besylate (Norvasc) 5 mg DAILY PO Last administered on 06/11/18 09:35; Admin Dose 5 MG; Start 06/04/18 at 09:00 Baclofen (Lioresal) 10 mg BID PO Last administered on 06/11/18 09:34; Admin Dose 10 MG; Start 06/04/18 at 00:30 Hydroxyzine HCl (Atarax) 10 mg TID PO Last administered on 06/11/18 09:37; Admin Dose 20 MG; Start 06/04/18 at 09:00 Fluticasone/ Vilanterol (Breo Ellipta 100-25 Mcg Inh) 1 inh DAILY INH Last administered on 06/11/18 09:35; Admin Dose 1 INH; Start 06/04/18 at 09:00 Miscellaneous Information (Pending Santyl Order For Wound Care) This patient savage... PRN PRN XX WOUND CARE; Start 06/04/18 at 03:00 Rifaximin (Xifaxan) 550 mg BID PO Last administered on 06/11/18 09:34; Admin Dose 550 MG; Start 06/04/18 at 11:30 Lactulose (Enulose) 30 gm Q8 PO Last administered on 06/09/18 05:41; Admin Dose 30 GM; Start 06/05/18 at 14:00 Sertraline HCl (Zoloft) 50 mg DAILY PO Last administered on 06/11/18 09:34; Admin Dose 50 MG; Start 06/07/18 at 09:00 Simethicone (Mylicon) 160 mg Q6H PRN PO DISTENSION/GAS/BLOATING Last administered on 06/07/18 01:59; Admin Dose 160 MG; Start 06/07/18 at 01:00 Al Hydrox/Mg Hydrox/Simethicone (Mag-Al Plus) 30 ml Q6H PRN PO GASTROINTESTINAL UPSET; Start 06/07/18 at 01:00 Oxymetazoline HCl (Afrin [place]) 2 spray BID NASAL Last administered on 06/11/18 09:35; Admin Dose 2 SPRAY; Start 06/08/18 at 21:00 Apixaban (Eliquis) 10 mg BID PO Last administered on 06/11/18 09:34; Admin Dose 10 MG; Start 06/08/18 at 21:00 Cholecalciferol (Vitamin D) 2,000 unit DAILY PO Last administered on 06/11/18 09:34; Admin Dose 2,000 UNIT; Start 06/10/18 at 09:00 Methadone HCl (Methadone) 60 mg DAILY PO Last administered on 06/11/18 09:32; Admin Dose 60 MG; Start 06/10/18 at 10:30 Methadone HCl (Methadone Liq) 8 mg DAILY PO Last administered on 06/11/18 09:33; Admin Dose 8 MG; Start 06/10/18 at 10:30 Ipratropium [place] (Atrovent 0.02% (Neb)) 0.5 mg Q2H RESP THERAPY PRN HHN WHEEZING AND SOB; Start 06/10/18 at 21:00 Levalbuterol (Xopenex Neb) 1.25 mg Q2H RESP THERAPY PRN HHN WHEEZING AND SOB; Start 06/10/18 at 21:00 Calcium Carbonate (Oyster Shell Calcium) 1.25 gm BID PO ; Start 06/11/18 at 13:00 RICKIE DALTON MD Jun 11, 2018 12:08
[2018-06-11] MEDS: CALCIUM CARBONATE 1.25 GM TAB PO SCH ×2 (12:59→20:42)
[2018-06-11 13:55] VITALS: BP 106/52; PULSE 72; RESP 18
--- NOTE | 2018-06-11 17:09 | PN ---
Date/Time of Note Date/Time of Note DATE: 06/11/18 TIME: 17:03 Assessment/Plan VTE Prophylaxis Risk score (from Ns)>0 risk: 3 SCD applied (from Ns): Yes Pharmacological prophylaxis: other (eliquis) Lines/Catheters [facility] Saline Lock Urinary Cath still in place: No Assessment/Plan Assessment/Plan Assessment: Transaminitis- trending down --Likely multifactorial -Liver shock from underlying cardiac etiology -Hx of ETOH use -Hep C (Hep C AB +, RNA [id number]) NSTEMI, type 2 Metabolic encephalopathy- improved Leukocytosis- on prednisone Questionable Liver cirrhosis - AFP 4.95 -Liver us - Liver is normal in echogenicity and measures 12.6 cm Coagulopathy Thrombocytopenia- improving COPD/emphysema Hypertension Chronic kidney disease History of alcohol use- per pt/family quit over 1 year ago 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 Plan: Continue rifaximin/lactulose-titrate to 3 bowel movements per day- patient refusing lactulose -counseled on importance of medical Patient appears stable for out-pt management from GI point of view Pt to f/u as out-pt for Hepatitis C treatment and out-pt endoscopies Patient seen in collaboration with Dr. Barnes Subjective: Patient is currently on commode having a bowel movement. She reports she had 3 bowel movements today. She denies abdominal pain, she is tolerating her diet. No over signs of GI bleed. Continue observation. PHYSICAL EXAMINATION: GENERAL: Cachectic, alert and forgetful, in no acute distress SKIN: No lesions HEENT: No lesions CHEST: Inspection within normal limits. CARDIOVASCULAR: Heart: Regular rate and rhythm RESPIRATORY: Lungs clear to auscultation GASTROINTESTINAL AND LIVER: Abdomen: Soft, non tenderness, non-distended, no hernias, no masses, no organomegaly, no ascites, no guarding, no rebound tenderness, normoactive bowel sounds. Rectal: Deferred. GENITOURINARY: Female genitalia within normal limits. EXTREMITIES: No cyanosis, clubbing or edema. Result Diagram: 06/09/1852806/09/18528 CC: JOSE GUADALUPE BARNES ; Exam/Review of Systems Exam Vitals Vital Signs Date Temp Pulse Resp B/P (MAP) Pulse Ox O2 O2 Flow FiO2 Time Delivery Rate 06/11/18 98.2 72 18 106/52 92 13:55 (70) 06/10/18 Nasal 2.0 20:00 Cannula 06/10/18 21 16:08 Intake and Output 06/10/18 06/10/18 06/11/18 1515:00 23:00 07:00 IntakeIntake Total 1020 ml BalanceBalance 1020 ml Medications Medication Current Medications IV Flush (NS 3 ml) 3 ml PER PROTOCOL IV ; Start 06/04/18 at 00:00 Ondansetron HCl (Zofran Inj) 4 mg Q6H PRN IV NAUSEA/VOMITING; Start 06/04/18 at 00:00 Acetaminophen (Tylenol Tab) 650 mg Q6H PRN PO .PAIN 1-3 OR TEMP Last administered on 06/09/18 16:24; Admin Dose 650 MG; Start 06/04/18 at 00:00 Pantoprazole (Protonix Tab) 40 mg DAILY@06 PO Last administered on 06/11/18 05:41; Admin Dose 40 MG; Start 06/04/18 at 06:00 Amlodipine Besylate (Norvasc) 5 mg DAILY PO Last administered on 06/11/18 09:35; Admin Dose 5 MG; Start 06/04/18 at 09:00 Baclofen (Lioresal) 10 mg BID PO Last administered on 06/11/18 09:34; Admin Dose 10 MG; Start 06/04/18 at 00:30 Hydroxyzine HCl (Atarax) 10 mg TID PO Last administered on 06/11/18 09:37; Admin Dose 20 MG; Start 06/04/18 at 09:00 Fluticasone/ Vilanterol (Breo Ellipta 100-25 Mcg Inh) 1 inh DAILY INH Last administered on 06/11/18 09:35; Admin Dose 1 INH; Start 06/04/18 at 09:00 Miscellaneous Information (Pending Santyl Order For Wound Care) This patient savage... PRN PRN XX WOUND CARE; Start 06/04/18 at 03:00 Rifaximin (Xifaxan) 550 mg BID PO Last administered on 06/11/18 09:34; Admin Dose 550 MG; Start 06/04/18 at 11:30 Lactulose (Enulose) 30 gm Q8 PO Last administered on 06/09/18 05:41; Admin Dose 30 GM; Start 06/05/18 at 14:00 Sertraline HCl (Zoloft) 50 mg DAILY PO Last administered on 06/11/18 09:34; Admin Dose 50 MG; Start 06/07/18 at 09:00 Simethicone (Mylicon) 160 mg Q6H PRN PO DISTENSION/GAS/BLOATING Last administered on 06/07/18 01:59; Admin Dose 160 MG; Start 06/07/18 at 01:00 Al Hydrox/Mg Hydrox/Simethicone (Mag-Al Plus) 30 ml Q6H PRN PO GASTROINTESTINAL UPSET; Start 06/07/18 at 01:00 Oxymetazoline HCl (Afrin [place]) 2 spray BID NASAL Last administered on 06/11/18 09:35; Admin Dose 2 SPRAY; Start 06/08/18 at 21:00 Apixaban (Eliquis) 10 mg BID PO Last administered on 06/11/18 09:34; Admin Dose 10 MG; Start 06/08/18 at 21:00 Cholecalciferol (Vitamin D) 2,000 unit DAILY PO Last administered on 06/11/18 09:34; Admin Dose 2,000 UNIT; Start 06/10/18 at 09:00 Methadone HCl (Methadone) 60 mg DAILY PO Last administered on 06/11/18 09:32; Admin Dose 60 MG; Start 06/10/18 at 10:30 Methadone HCl (Methadone Liq) 8 mg DAILY PO Last administered on 06/11/18 09:33; Admin Dose 8 MG; Start 06/10/18 at 10:30 Ipratropium [place] (Atrovent 0.02% (Neb)) 0.5 mg Q2H RESP THERAPY PRN HHN WHEEZING AND SOB; Start 06/10/18 at 21:00 Levalbuterol (Xopenex Neb) 1.25 mg Q2H RESP THERAPY PRN HHN WHEEZING AND SOB; Start 06/10/18 at 21:00 Calcium Carbonate (Oyster Shell Calcium) 1.25 gm BID PO Last administered on 06/11/18 12:59; Admin Dose 1.25 GM; Start 06/11/18 at 13:00 MELISSA HOUSE [employer] Jun 11, 2018 17:09
[2018-06-11 19:50] VITALS: BP 111/62; PULSE 67; RESP 18
[2018-06-11] MEDS: DOCUSATE SODIUM 100 MG CAP PO SCH (20:42)
[2018-06-12 02:00] VITALS: BP 109/60; PULSE 72; RESP 18
[2018-06-12] MEDS: PANTOPRAZOLE (EC) 40 MG TAB PO SCH (05:35)
[2018-06-12] MEDS: LACTULOSE 30ML CUP PO SCH ×3 (05:36→22:18)
[2018-06-12 08:01] VITALS: BP 126/71; PULSE 80; RESP 16
[2018-06-12] MEDS: OXYMETAZOLINE 0.05% 15 ML NAS SPRAY NASAL SCH ×2 (08:41→20:07)
[2018-06-12] MEDS: FLUTICASONE/VILANTEROL 100-25 INH SCH (08:42)
[2018-06-12] MEDS: METHADONE 10 MG TAB PO SCH (08:43)
[2018-06-12] MEDS: METHADONE (1 MG/ML 5 ML PO UD SYG) PO SCH (08:44)
[2018-06-12] MEDS: APIXABAN 5 MG TABLET PO SCH ×2 (08:45→20:03)
[2018-06-12] MEDS: BACLOFEN 10 MG TAB PO SCH ×2 (08:46→20:03)
[2018-06-12] MEDS: CALCIUM CARBONATE 1.25 GM TAB PO SCH ×2 (08:46→20:03)
[2018-06-12] MEDS: AMLODIPINE 5 MG TAB PO SCH (08:46)
[2018-06-12] MEDS: CHOLECALCIFEROL 2,000 UNIT CAP PO SCH (08:46)
[2018-06-12] MEDS: SERTRALINE 50 MG TAB PO SCH (08:46)
[2018-06-12] MEDS: hydrOXYzine HCL 10 MG TAB PO SCH ×3 (08:46→20:03)
[2018-06-12] MEDS: DOCUSATE SODIUM 100 MG CAP PO SCH ×2 (08:46→20:03)
[2018-06-12] MEDS: RIFAXIMIN 550 MG TAB PO SCH ×2 (08:46→20:03)
[2018-06-12] MEDS ORDERED: POTASSIUM CHLORIDE (SR) 20 MEQ TAB PO STA (12:04)
[2018-06-12 14:04] VITALS: BP 120/59; PULSE 87; RESP 16
--- NOTE | 2018-06-12 14:20 | PN ---
Date/Time of Note Date/Time of Note DATE: 06/12/18 TIME: 14:01 Assessment/Plan VTE Prophylaxis Risk score (from Ns)>0 risk: 4 SCD applied (from Ns): Yes Pharmacological prophylaxis: heparin Lines/Catheters IV [facility] Saline Lock Urinary Cath still in place: No Assessment/Plan Assessment/Plan Assessment: Transaminitis- trending down --Likely multifactorial -Liver shock from underlying cardiac etiology -Hx of ETOH use -Hep C (Hep C AB +, RNA [id number]) NSTEMI, type 2 Metabolic encephalopathy- improved Leukocytosis- on prednisone Questionable Liver cirrhosis - AFP 4.95 -Liver us - Liver is normal in echogenicity and measures 12.6 cm Coagulopathy Thrombocytopenia- improving COPD/emphysema Hypertension Chronic kidney disease History of alcohol use- per pt/family quit over 1 year ago 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 Plan: Continue rifaximin/lactulose-titrate to 3 bowel movements per day- patient refusing lactulose -counseled on importance of medical Patient appears stable for out-pt management from GI point of view Pt to f/u as out-pt for Hepatitis C treatment and out-pt endoscopies LFT's continue to trend down. Continue to monitor, per nursing discharge planning home with home health vs [facility] facility. Patient seen in collaboration with Dr. Barnes Subjective: Patient states she has not had a bowel movement today. She denies any abdominal pain. She is tolerating her diet. She reports she hasn't been taking her lactulose because it causes bowel urgency and nursing staff is not responsive enough. Encouraged her to take as it will help with her bowel movements. PHYSICAL EXAMINATION: GENERAL: Cachectic, alert and forgetful, in no acute distress.She seems somewhat forgetful today. SKIN: No lesions HEENT: No lesions CHEST: Inspection within normal limits. CARDIOVASCULAR: Heart: Regular rate and rhythm RESPIRATORY: Lungs clear to auscultation GASTROINTESTINAL AND LIVER: Abdomen: Soft, non tenderness, non-distended, no hernias, no masses, no organomegaly, no ascites, no guarding, no rebound tenderness, normoactive bowel sounds. Rectal: Deferred. GENITOURINARY: Female genitalia within normal limits. EXTREMITIES: No cyanosis, clubbing or edema. Result Diagram: 4/14/19 0438 06/12/18 0438 Results 24hrs Laboratory Tests Test 06/12/18 04:38 06/12/18 04:51 White Blood Count 10.2 # Red Blood Count 4.15 L Hemoglobin 12.7 Hematocrit 41.0 Mean Corpuscular Volume 98.8 Mean Corpuscular Hemoglobin 30.6 Mean Corpuscular Hemoglobin Concent 31.0 L Red Cell Distribution Width 17.1 H Platelet Count 182 Mean Platelet Volume 12.2 H Immature Granulocytes % 0.300 Neutrophils % 75.6 Lymphocytes % 15.6 Monocytes % 6.7 Eosinophils % 1.6 Basophils % 0.2 Nucleated Red Blood Cells % 0.0 Immature Granulocytes # 0.030 Neutrophils # 7.7 H Lymphocytes # 1.6 Monocytes # 0.7 Eosinophils # 0.2 Basophils # 0.0 Nucleated Red Blood Cells # 0.0 Sodium Level 140 Potassium Level 3.3 L Chloride Level 105 Carbon Dioxide Level 30 Anion Gap 5 Blood Urea Nitrogen 20 Creatinine 0.69 Est Glomerular Filtrat Rate mL/min > 60 Glucose Level 92 Calcium Level 8.9 Total Bilirubin 0.6 Direct Bilirubin 0.00 Indirect Bilirubin 0.6 Aspartate Amino Transf (AST/SGOT) 55 H Alanine Aminotransferase (ALT/SGPT) 345 H Alkaline Phosphatase 71 Total Protein 5.7 L Albumin 3.1 L Globulin 2.60 Albumin/Globulin Ratio 1.19 Phosphorus Level 4.5 Magnesium Level 1.7 CC: JOSE GUADALUPE BARNES [place] ; Exam/Review of Systems Exam Vitals Vital Signs Date Temp Pulse Resp B/P (MAP) Pulse Ox O2 O2 Flow FiO2 Time Delivery Rate 06/12/18 97.9 80 16 126/71 94 Room Air 08:01 (89) 06/10/18 2.0 20:00 06/10/18 21 16:08 Intake and Output 06/11/18 06/11/18 06/12/18 1515:00 23:00 07:00 IntakeIntake Total 360 ml 240 ml 240 ml OutputOutput Total 400 ml 500 ml 800 ml BalanceBalance -40 ml -260 ml -560 ml Results Results 24hrs Laboratory Tests Test 06/12/18 04:38 06/12/18 04:51 White Blood Count 10.2 # Red Blood Count 4.15 L Hemoglobin 12.7 Hematocrit 41.0 Mean Corpuscular Volume 98.8 Mean Corpuscular Hemoglobin 30.6 Mean Corpuscular Hemoglobin Concent 31.0 L Red Cell Distribution Width 17.1 H Platelet Count 182 Mean Platelet Volume 12.2 H Immature Granulocytes % 0.300 Neutrophils % 75.6 Lymphocytes % 15.6 Monocytes % 6.7 Eosinophils % 1.6 Basophils % 0.2 Nucleated Red Blood Cells % 0.0 Immature Granulocytes # 0.030 Neutrophils # 7.7 H Lymphocytes # 1.6 Monocytes # 0.7 Eosinophils # 0.2 Basophils # 0.0 Nucleated Red Blood Cells # 0.0 Sodium Level 140 Potassium Level 3.3 L Chloride Level 105 Carbon Dioxide Level 30 Anion Gap 5 Blood Urea Nitrogen 20 Creatinine 0.69 Est Glomerular Filtrat Rate mL/min > 60 Glucose Level 92 Calcium Level 8.9 Total Bilirubin 0.6 Direct Bilirubin 0.00 Indirect Bilirubin 0.6 Aspartate Amino Transf (AST/SGOT) 55 H Alanine Aminotransferase (ALT/SGPT) 345 H Alkaline Phosphatase 71 Total Protein 5.7 L Albumin 3.1 L Globulin 2.60 Albumin/Globulin Ratio 1.19 Phosphorus Level 4.5 Magnesium Level 1.7 Medications Medication Current Medications IV Flush (NS 3 ml) 3 ml PER PROTOCOL IV ; Start 06/04/18 at 00:00 Ondansetron HCl (Zofran Inj) 4 mg Q6H PRN IV NAUSEA/VOMITING; Start 06/04/18 at 00:00 Acetaminophen (Tylenol Tab) 650 mg Q6H PRN PO .PAIN 1-3 OR TEMP Last administered on 06/09/18 16:24; Admin Dose 650 MG; Start 06/04/18 at 00:00 Pantoprazole (Protonix Tab) 40 mg DAILY@06 PO Last administered on 06/12/18 05:35; Admin Dose 40 MG; Start 06/04/18 at 06:00 Amlodipine Besylate (Norvasc) 5 mg DAILY PO Last administered on 06/12/18 08:46; Admin Dose 5 MG; Start 06/04/18 at 09:00 Baclofen (Lioresal) 10 mg BID PO Last administered on 06/12/18 08:46; Admin Dose 10 MG; Start 06/04/18 at 00:30 Hydroxyzine HCl (Atarax) 10 mg TID PO Last administered on 06/12/18 12:24; Admin Dose 10 MG; Start 06/04/18 at 09:00 Fluticasone/ Vilanterol (Breo Ellipta 100-25 Mcg Inh) 1 inh DAILY INH Last a dministered on 06/12/18 08:42; Admin Dose 1 INH; Start 06/04/18 at 09:00 Miscellaneous Information (Pending Santyl Order For Wound Care) This patient savage... PRN PRN XX WOUND CARE; Start 06/04/18 at 03:00 Rifaximin (Xifaxan) 550 mg BID PO Last administered on 06/12/18 08:46; Admin Dose 550 MG; Start 06/04/18 at 11:30 Lactulose (Enulose) 30 gm Q8 PO Last administered on 06/09/18 05:41; Admin Dose 30 GM; Start 06/05/18 at 14:00 Sertraline HCl (Zoloft) 50 mg DAILY PO Last administered on 06/12/18 08:46; Admin Dose 50 MG; Start 06/07/18 at 09:00 Simethicone (Mylicon) 160 mg Q6H PRN PO DISTENSION/GAS/BLOATING Last administered on 06/07/18 01:59; Admin Dose 160 MG; Start 06/07/18 at 01:00 Al Hydrox/Mg Hydrox/Simethicone (Mag-Al Plus) 30 ml Q6H PRN PO GASTROINTESTINAL UPSET; Start 06/07/18 at 01:00 Oxymetazoline HCl (Afrin [place]) 2 spray BID NASAL Last administered on 06/11/18 20:42; Admin Dose 2 SPRAY; Start 06/08/18 at 21:00 Apixaban (Eliquis) 10 mg BID PO Last administered on 06/12/18 08:45; Admin Dose 10 MG; Start 06/08/18 at 21:00 Cholecalciferol (Vitamin D) 2,000 unit DAILY PO Last administered on 06/12/18 08:46; Admin Dose 2,000 UNIT; Start 06/10/18 at 09:00 Methadone HCl (Methadone) 60 mg DAILY PO Last administered on 06/12/18 08:43; Admin Dose 60 MG; Start 06/10/18 at 10:30 Methadone HCl (Methadone Liq) 8 mg DAILY PO Last administered on 06/12/18 08:44; Admin Dose 8 MG; Start 06/10/18 at 10:30 Ipratropium [place] (Atrovent 0.02% (Neb)) 0.5 mg Q2H RESP THERAPY PRN HHN WHEEZING AND SOB; Start 06/10/18 at 21:00 Levalbuterol (Xopenex Neb) 1.25 mg Q2H RESP THERAPY PRN HHN WHEEZING AND SOB; Start 06/10/18 at 21:00 Calcium Carbonate (Oyster Shell Calcium) 1.25 gm BID PO Last administered on 06/12/18 08:46; Admin Dose 1.25 GM; Start 06/11/18 at 13:00 Docusate Sodium (Colace) 100 mg BID PO Last administered on 06/12/18 08:46; Admin Dose 100 MG; Start 06/11/18 at 21:00 MELISSA HOUSE [employer]OO[employer]ING AND PLATEMAKER Jun 12, 2018 14:11
--- NOTE | 2018-06-12 15:19 | DS ---
Date/Time of Note Date/Time of Note DATE: 06/12/18 TIME: 15:12 Discharge Summary Admission/Discharge Info Admit Date/Time Jun 03, 2018 at 22:06 Discharge Date/Time Patient Condition: Stable Consults Dr Campos Procedures Chest x-ray: Possible COPD CAT chest IMPRESSION: rominent is present with moderate to prominent bilateral subpleural scarring. Subpleural mild fibrotic changes are also present. Development of multiple compression deformities of the upper thoracic spine which are of unknown chronicity. No lung nodule or mass. Low-dose screening CT is recommended and the in the future for surveillance. Bilateral airways wall thickening is seen which could represent airways inf lammation which may be chronic. Atherosclerotic disease is present. CTA chest IMPRESSION: 1. Positive exam for pulmonary emboli to the medial right middle lobe and inferomedial right lower lobe. 2. COPD/emphysema. 3. Diffuse bilateral upper lobe and superior segment left lower lobe ground- glass opacities. 4. Free fluid in the abdomen. Gas distended transverse colon. Stool distended proximal descending colon. 5. Small hiatal hernia. 6. T5 vertebral plana with old compression fractures involving T6 and T7. Ultrasound liver IMPRESSION: 1. No evidence of cholelithiasis or acute cholecystitis. 2. Dilated common bile duct measuring 8.6 mm. No obvious choledocholithiasis seen by ultrasound. If there is high clinical suspicion for choledocholithiasis recommend MRCP. Note the size of the common bile duct is similar to prior studies. 3. Pancreas not visualized Venous ultrasound lower extremities: No DVT Hx of Present Illness 68-year-old female admitted to either [facility] through the ER for concern of sepsis pneumonia. transferred here for continuity with her insurance. Hospital Course Small course Admitted with concern of sepsis and type II PA. An x-ray from her outside hospital was concerning for nodule, which led to a CAT scan. The CAT scan showed a pulmonary embolism. Patient has been tolerating anticoagulation and is stable and fit for discharge. Etiology could be immobility however no lower extremity DVT was found on imaging. Recommend patient visit hematology down the line. At this point it will be 6 months of anticoagulation. If Eliquis is covered, patient will go home on this therapy. if not covered may need to switch to Coumadin and discharged to snf or home with Lovenox training. I have updated the patient's son & caregiver, who have not been here once during my rounds, over the phone. Patient has been nonadherent to medical therapy including lactulose due to its side effects. I do not blame her however she has been counseled regarding the risk of coma/encephalopathy. Assessment plan 1. SIRS secondary to #3 Stable improved, Taper off treatment. 2. Ac PE; No lwr ext DVT; related to immobility? cont Eliquis. Outpt hematology workup. 3. TYPE II PA, stable, treat #1/2. No need for cath 4. Nonadherence, counseled 5. Methadone use/chronic pain stable observe 6. Past heroin/ meth? 7. Ftt; PT home health safety, vs SNF on discharge. Updated family this past Wednesday 8. Chronic COPD/emphysema? Consider outpatient PFTs 9. Past tobacco 10. Abn LFTs, avoid statin for now. Differential: Shock vs passive congestion 11. Dysphagia? Appears stable at present 12. Hepatitis C viremia: No bowen evidence of cirrhosis on ultrasound at this time. 13. Pulmonary hypertension vs cor pulmonale? Acutely due to PE but possible underlying issues due to chronic COPD 14. Chronic respiratory failure on home O2? 15. Abn cxr from [place]? However CT does not show any nodules. Q Gold negative 16. Acute psychosis? Cont reorientation and reassurance. Haldol as needed. Checked ammonia level 17. Dilated CBD, unchanged according to radiology/appears similar to previous imaging and 18. Cirrhosis? 19. Chr liver disease sequelae with ascites/ Portal hypertension? 20. Constipation 21. Compression fracture status T6/7 22. Epistaxis mild, Afrin added 23. PTSD? 24. Nonadherence to therapy 06/10. Nonadherence to pt. Counseling regarding the risk of health challenges. S: 06/06 no distress occasional cough without any hemoptysis. No chest pain fever. 06/07: No distress. Agitated overnight. Presently follows commands no chest pain fever 06/08: Events noted. No fever over distress. 06/09: Refusing laxatives. Risk of coma/encephalopathy discussed. Patient is awake alert oriented to year, no fever or abdominal pain. 06/10: Up in chair eating. Denies any chest pain dyspnea distress. Awake alert oriented to month year [place]. I discussed the requirements of medications to keep her health stable. Refuse medications and physical therapy today. 06/11: No distress, feels stable. /: No distress O: Vss; sinus rhythm PE No pallor JVD Reg no mrg Mostly clear no tachypnea Bs present nt nd no RRG No edema//[facility] Home Meds Active Scripts Loperamide Hcl* (Imodium*) 2 Mg Capsule, 2 MG PO .AFTER EA LOOSE BM PRN for DIARRHEA, #10 TAB Prov:ADAMS MAK MD 04/30/18 Ondansetron (Ondansetron Odt) 4 Mg Tab.rapdis, 4 MG PO Q6H PRN for NAUSEA AND/OR VOMITING, #10 TAB Prov:ADAMS MAK MD 04/30/18 Methadone Hcl* (Methadone*) 5 Mg/5 Ml Solution, 68 MG PO DAILY for 30 Days, ML Prov:STU ORTEZ 04/14/18 Hydroxyzine Hcl* (Hydroxyzine Hcl*) 10 Mg Tablet, 10 MG PO TID, #20 TAB Prov:CASA RIOJAS MD 01/10/18 Sertraline Hcl* (Sertraline Hcl*) 100 Mg Tablet, 100 MG PO DAILY for 30 Days, TAB Prov:ZHANG WARE NP 02/28/16 Salmeterol Xinaf/Fluticasone* (Advair*) 250-50 Diskus Inhaler, 1 INH INHALATION BID for 30 Days, #1 INHALER Prov:ZHANG WARE NP 02/28/16 Albuterol Sulfate* (Proair HFA*) 8.5 Gm Hfa.aer.ad, 2 PUFF INH Q6 for SHORTNESS OF BREATH for 14 Days, #1 INHALER Prov:ZHANG WARE NP 02/28/16 Reported Medications Cholecalciferol (Vitamin D3) (VITAMIN D-3) 2,000 Unit Capsule, 2000 U PO DAILY for 30 Days 04/30/18 Aspirin* (Aspirin* EC) 81 Mg Tablet.dr, 81 MG PO DAILY for 30 Days, #30 04/30/18 Amlodipine Besylate* (Amlodipine Besylate*) 5 Mg Tablet, 5 MG PO DAILY for 30 Days, #30 04/30/18 Ibuprofen* (Ibuprofen*) 600 Mg Tablet, 600 MG PO Q6H PRN for PAIN AND/OR INFLAMMATION, TAB 04/30/18 Baclofen* (Baclofen*) 10 Mg Tablet, 10 MG PO BID 04/30/18 Docusate Sodium* (Docusate Sodium*) 100 Mg Capsule, 100 MG PO BID, #60 CAP 04/30/18 Calcium Carbonate ([id number]) 500 Mg Tablet, 500 MG PO BID, TAB 04/30/18 Primary Care Provider Erna Pollack Time spent on discharge: > 30 minutes Pending Labs Laboratory Tests Test 06/12/18 04:38 06/12/18 04:51 White Blood Count 10.2 10^3/ul (4.8-10.8) Red Blood Count 4.15 10^6/ul (4.20-5.40) Hemoglobin 12.7 g/dl (12.0-16.0) Hematocrit 41.0 % (37.0-47.0) Mean Corpuscular Volume 98.8 fl (82.0-101.0) Mean Corpuscular Hemoglobin 30.6 pg (29.0-33.0) Mean Corpuscular 31.0 g/dl (32.0-37.0) Hemoglobin Concent Red Cell Distribution Width 17.1 % (11.5-14.5) Platelet Count 182 10^3/UL (140-415) Mean Platelet Volume 12.2 fl (7.4-10.4) Immature Granulocytes % 0.300 % (0.001-0.429) Neutrophils % 75.6 % (39.0-77.0) Lymphocytes % 15.6 % (15.0-51.0) Monocytes % 6.7 % (0.0-11.0) Eosinophils % 1.6 % (0.0-7.0) Basophils % 0.2 % (0.0-2.0) Nucleated Red Blood Cells % 0.0 /100WBC (0.0-0.0) Immature Granulocytes # 0.030 10^3/ul (0.0-0.031) Neutrophils # 7.7 10^3/ul (1.6-7.5) Lymphocytes # 1.6 10^3/ul (0.8-2.9) Monocytes # 0.7 10^3/ul (0.3-0.9) Eosinophils # 0.2 10^3/ul (0.0-0.5) Basophils # 0.0 10^3/ul (0.0-0.1) Nucleated Red Blood Cells # 0.0 10^3/ul (0.0-0.0) Sodium Level 140 mmol/L (135-144) Potassium Level 3.3 mmol/L (3.5-5.1) Chloride Level 105 mmol/L (97-110) Carbon Dioxide Level 30 mmol/L (21-31) Anion Gap 5 (5-13) Blood Urea Nitrogen 20 mg/dl (7-20) Creatinine 0.69 mg/dl (0.44-1.00) Est Glomerular Filtrat > 60 mL/min (>60) Rate mL/min Glucose Level 92 mg/dl (70-220) Calcium Level 8.9 mg/dl (8.4-10.2) Total Bilirubin 0.6 mg/dl (0.2-1.3) Direct Bilirubin 0.00 mg/dl (0.00-0.20) Indirect Bilirubin 0.6 mg/dl (0-1.1) Aspartate Amino 55 IU/L (15-46) Transf (AST/SGOT) Alanine 345 IU/L (13-69) Aminotransferase (ALT/SGPT) Alkaline Phosphatase 71 IU/L (42-121) Total Protein 5.7 g/dl (6.1-8.1) Albumin 3.1 g/dl (3.3-4.9) Globulin 2.60 g/dl (1.3-3.2) Albumin/Globulin Ratio 1.19 Phosphorus Level 4.5 mg/dl (2.5-4.9) Magnesium Level 1.7 mg/dl (1.7-2.5) RICKIE DALTON MD Jun 12, 2018 15:19
--- NOTE | 2018-06-12 15:25 | PDOCDIS ---
Discharge Instructions CONDITION [id number] Patient Condition: [id number] Stable HOME CARE INSTRUCTIONS: [id number] Diet Instructions: [id number] Low Fat /Cholesterol ACTIVITY: [id number] Activity Restrictions: [id number] Slowly Increase Activity Do not Drive FOLLOW UP/APPOINTMENTS Follow-up Plan Appointment primary 1 week GI 2 weeks Hematology 1-2 months RICKIE DALTON MD Jun 12, 2018 15:25
[2018-06-12] MEDS ORDERED: RIFA550T4 PO (15:30)
[2018-06-12] MEDS ORDERED: PANT40TA4 PO (15:30)
[2018-06-12] MEDS ORDERED: OXYM15SP34 NASAL (15:30)
[2018-06-12] MEDS ORDERED: ACET325T33 PO (15:30)
[2018-06-12] MEDS ORDERED: APIX5TAB PO (15:30)
[2018-06-12] MEDS ORDERED: LACT20SO2 PO (15:30)
[2018-06-12] MEDS: ACETAMINOPHEN 325 MG TAB PO PRN (16:56)
[2018-06-12 19:15] VITALS: BP 125/62; PULSE 81; RESP 18
[2018-06-13 01:15] VITALS: BP 131/61; PULSE 64; RESP 18
[2018-06-13] MEDS: PANTOPRAZOLE (EC) 40 MG TAB PO SCH (05:34)
[2018-06-13] MEDS: LACTULOSE 30ML CUP PO SCH ×3 (05:35→21:31)
[2018-06-13 07:19] VITALS: BP 148/68; PULSE 65; RESP 20
[2018-06-13] MEDS: BACLOFEN 10 MG TAB PO SCH ×2 (09:44→21:27)
[2018-06-13] MEDS: SERTRALINE 50 MG TAB PO SCH (09:44)
[2018-06-13] MEDS: CALCIUM CARBONATE 1.25 GM TAB PO SCH ×2 (09:44→21:26)
[2018-06-13] MEDS: APIXABAN 5 MG TABLET PO SCH ×2 (09:44→21:27)
[2018-06-13] MEDS: CHOLECALCIFEROL 2,000 UNIT CAP PO SCH (09:44)
[2018-06-13] MEDS: hydrOXYzine HCL 10 MG TAB PO SCH ×3 (09:44→21:27)
[2018-06-13] MEDS: RIFAXIMIN 550 MG TAB PO SCH ×2 (09:45→21:26)
[2018-06-13] MEDS: DOCUSATE SODIUM 100 MG CAP PO SCH ×2 (09:45→21:26)
[2018-06-13] MEDS: METHADONE 10 MG TAB PO SCH (09:45)
[2018-06-13] MEDS: AMLODIPINE 5 MG TAB PO SCH (09:45)
[2018-06-13] MEDS: OXYMETAZOLINE 0.05% 15 ML NAS SPRAY NASAL SCH ×3 (09:46→21:00)
[2018-06-13] MEDS: FLUTICASONE/VILANTEROL 100-25 INH SCH ×2 (09:46→10:17)
[2018-06-13] MEDS: METHADONE (1 MG/ML 5 ML PO UD SYG) PO SCH (09:46)
[2018-06-13 15:19] VITALS: BP 138/67; PULSE 65; RESP 20
[2018-06-13] MEDS: ACETAMINOPHEN 325 MG TAB PO PRN (16:00)
--- NOTE | 2018-06-13 18:14 | PN ---
Date/Time of Note Date/Time of Note DATE: 06/13/18 TIME: 18:10 Assessment/Plan VTE Prophylaxis Risk score (from Nsg)>0 risk: 3 SCD applied (from Nsg): Yes Pharmacological prophylaxis: apixaban Lines/Catheters IV Catheter Type (from Nrsg): Peripheral IV Urinary Cath still in place: No Assessment/Plan Hospital Course SUBJECTIVE: Denies any dyspnea at this time. Denies any chest pain. OBJECTIVE: Physical Exam General: Frail looking, 68 year-old female lying in bed in no apparent distress. HEENT: Normocephalic, atraumatic. Eyes: Anicteric sclerae, conjunctivae clear. ENT: Nasal septum midline, oral mucosa moist. Neck supple, no JVD noticed. Respiratory: Bilaterally diminished breath sounds. No use of accessory muscles of respiration. B/L rales. Cardiovascular: S1, S2 heard. Regular rate and rhythm. Abdomen: Soft, nontender, and nondistended. Bowel sounds positive in all 4 quadrants. Genitourinary: Deferred. Extremities: No cyanosis, no edema. Peripheral pulses palpable. Neurologic: The patient is Skin: Normal skin turgor. No skin rashes. Labs & Vitals per chart ASSESSMENT & PLAN This is a 68-year-old female with past medical history of COPD, chronic respiratory failure dependent on home oxygen, hypertension, pulmonary hype rtension, chronic kidney disease, alcohol abuse, and a remote history of heroin abuse currently on methadone. The patient went to the local hospital on June 02, 2018 because of shortness of breath. The patient was noted to be in significant respiratory failure that necessitated admission to [facility] including ICU stay and noninvasive positive pressure ventilation. The patient also had underlying coagulopathy with an INR of 2.5. The patient also had a WBC of 15.7. The patient was empirically treated for any underlying infectious process. Infectious diseases was involved in the patient's care. The patient also had NSTEMI. The patient was evaluated by cardiology at the transferring facility with the 2D echocardiogram showing preserved left ventricular ejection fraction, but evidence of underlying pulmonary hypertension. The patient was gradually moved out of the intensive care unit once the patient was stable. The patient was transferred to [facility] on 06/03/2018 for further management and evaluation because of insurance reasons. 1. COPD exacerbation. -Continue bronchodilators IZAIAH and LABA. -S/P tapering dose of steroids. 2. Acute on chronic respiratory failure -Hypoxic and hypercapnic -Status post noninvasive positive pressure ventilation at the transferring facility. -Currently stable. 3. Possible underlying acute bronchitis -S/P empiric cefepime as per ID from the transferring facility. 4. NSTEMI. -Preserved left ventricular ejection fraction -Status post cardiology evaluation at the transferring facility. -Most probably secondary to demand ischemia. -Continue ASA. -Cardiology following. -Not a good candidate for invasive procedures prior to the patient's underlying thrombocytopenia noncompliance. 5. Essential hypertension -Continue antihypertensives. 6. Pulmonary hypertension. -Most probably secondary to chronic hypoxia. -Continue supplemental oxygen. 7. Pulmonary emboli to the medial right middle lobe and inferomedial right lower lobe. -On therapeutic anticoagulation. 8. Transaminitis without hyperbilirubinemia -Known history of hepatitis C and alcoholic liver cirrhosis. -Gastroenterology following. -Avoid hepatotoxic medications. -Trend LFTs. 9. History of heroin abuse. -Currently on methadone. 10. Coagulopathy. -Most probably secondary to underlying liver cirrhosis. -Monitor for bleeding. 11. Microcytic anemia -Most probably secondary to underlying alcohol abuse. -Monitor H&H closely. 12. Dysphagia. -Aspiration precautions. -S/P ST evaluation. 13. DVT prophylaxis -Factor Xa inhibitors. 14. Debility. -Continue physical therapy. 15. Plan. -The patient is stable to be discharged. -However, the patient lives at home by herself and has a part-time caregiver. -The patient would benefit from a custodial facility versus assisted living facility, where she can be supervised 21/09. The patient was seen in collaboration with Dr. Shoemaker. Result Diagram: 06/12/18 0438 06/12/18 0438 Exam/Review of Systems Exam Vitals Vital Signs Date Temp Pulse Resp B/P (MAP) Pulse Ox O2 O2 Flow FiO2 Time Delivery Rate 06/13/18 97.7 65 20 138/67 96 15:19 (90) 06/12/18 Room Air 14:04 06/10/18 2.0 20:00 06/10/18 21 16:08 Intake and Output 06/12/18 06/12/18 06/13/18 1515:00 23:00 07:00 IntakeIntake Total 600 ml 240 ml OutputOutput Total 650 ml 100 ml BalanceBalance -50 ml 140 ml Medications Medication Current Medications IV Flush (NS 3 ml) 3 ml PER PROTOCOL IV ; Start 06/04/18 at 00:00 Ondansetron HCl (Zofran Inj) 4 mg Q6H PRN IV NAUSEA/VOMITING; Start 06/04/18 at 00:00 Acetaminophen (Tylenol Tab) 650 mg Q6H PRN PO .PAIN 1-3 OR TEMP Last administered on 06/13/18 16:00; Admin Dose 650 MG; Start 06/04/18 at 00:00 Pantoprazole (Protonix Tab) 40 mg DAILY@06 PO Last administered on 06/13/18 05:34; Admin Dose 40 MG; Start 06/04/18 at 06:00 Amlodipine Besylate (Norvasc) 5 mg DAILY PO Last administered on 06/13/18 09:45; Admin Dose 5 MG; Start 06/04/18 at 09:00 Baclofen (Lioresal) 10 mg BID PO Last administered on 06/13/18 09:44; Admin Dose 10 MG; Start 06/04/18 at 00:30 Hydroxyzine HCl (Atarax) 10 mg TID PO Last administered on 06/13/18 13:41; Admin Dose 10 MG; Start 06/04/18 at 09:00 Fluticasone/ Vilanterol (Breo Ellipta 100-25 Mcg Inh) 1 inh DAILY INH Last administered on 06/12/18 08:42; Admin Dose 1 INH; Start 06/04/18 at 09:00 Miscellaneous Information (Pending [facility] Order For Wound Care) This patient savage... PRN PRN XX WOUND CARE; Start 06/04/18 at 03:00 Rifaximin (Xifaxan) 550 mg BID PO Last administered on 06/13/18 09:45; Admin Dose 550 MG; Start 06/04/18 at 11:30 Lactulose (Enulose) 30 gm Q8 PO Last administered on 06/13/18 05:35; Admin Dose 30 GM; Start 06/05/18 at 14:00 Sertraline HCl (Zoloft) 50 mg DAILY PO Last administered on 06/13/18 09:44; Admin Dose 50 MG; Start 06/07/18 at 09:00 Simethicone (Mylicon) 160 mg Q6H PRN PO DISTENSION/GAS/BLOATING Last administered on 06/07/18 01:59; Admin Dose 160 MG; Start 06/07/18 at 01:00 Al Hydrox/Mg Hydrox/Simethicone (Mag-Al Plus) 30 ml Q6H PRN PO GASTROINTESTINAL UPSET; Start 06/07/18 at 01:00 Oxymetazoline HCl (Afrin [place]) 2 spray BID NASAL Last administered on 06/11/18 20:42; Admin Dose 2 SPRAY; Start 06/08/18 at 21:00 Apixaban (Eliquis) 10 mg BID PO Last administered on 06/13/18 09:44; Admin Dose 10 MG; Start 06/08/18 at 21:00 Cholecalciferol (Vitamin D) 2,000 unit DAILY PO Last administered on 06/13/18 09:44; Admin Dose 2,000 UNIT; Start 06/10/18 at 09:00 Methadone HCl (Methadone) 60 mg DAILY PO Last administered on 06/13/18 09:45; Admin Dose 60 MG; Start 06/10/18 at 10:30 Methadone HCl (Methadone Liq) 8 mg DAILY PO Last administered on 06/13/18 09:46; Admin Dose 8 MG; Start 06/10/18 at 10:30 Ipratropium [place] (Atrovent 0.02% (Neb)) 0.5 mg Q2H RESP THERAPY PRN HHN WHEEZING AND SOB; Start 06/10/18 at 21:00 Levalbuterol (Xopenex Neb) 1.25 mg Q2H RESP THERAPY PRN HHN WHEEZING AND SOB; Start 06/10/18 at 21:00 Calcium Carbonate (Oyster Shell Calcium) 1.25 gm BID PO Last administered on 09:44; Admin Dose 1.25 GM; Start 06/11/18 at 13:00 Docusate Sodium (Colace) 100 mg BID PO Last administered on 06/13/18 09:45; Admin Dose 100 MG; Start 06/11/18 at 21:00 ZHANG WARE NP Jun 13, 2018 18:14
[2018-06-13 20:54] VITALS: BP 115/61; PULSE 91; RESP 20
[2018-06-14 02:16] VITALS: BP 122/63; PULSE 73; RESP 19
[2018-06-14] MEDS: PANTOPRAZOLE (EC) 40 MG TAB PO SCH (06:00)
[2018-06-14] MEDS: LACTULOSE 30ML CUP PO SCH ×4 (06:00→22:00)
[2018-06-14 07:22] VITALS: BP 127/66; PULSE 74; RESP 20
[2018-06-14] MEDS: OXYMETAZOLINE 0.05% 15 ML NAS SPRAY NASAL SCH ×2 (09:00→21:00)
[2018-06-14] MEDS: DOCUSATE SODIUM 100 MG CAP PO SCH ×2 (09:15→21:07)
[2018-06-14] MEDS: hydrOXYzine HCL 10 MG TAB PO SCH ×3 (09:15→21:08)
[2018-06-14] MEDS: BACLOFEN 10 MG TAB PO SCH ×2 (09:15→21:07)
[2018-06-14] MEDS: RIFAXIMIN 550 MG TAB PO SCH ×2 (09:15→21:08)
[2018-06-14] MEDS: METHADONE 10 MG TAB PO SCH (09:16)
[2018-06-14] MEDS: APIXABAN 5 MG TABLET PO SCH ×2 (09:16→21:07)
[2018-06-14] MEDS: AMLODIPINE 5 MG TAB PO SCH (09:16)
[2018-06-14] MEDS: CALCIUM CARBONATE 1.25 GM TAB PO SCH ×2 (09:16→21:08)
[2018-06-14] MEDS: SERTRALINE 50 MG TAB PO SCH (09:16)
[2018-06-14] MEDS: CHOLECALCIFEROL 2,000 UNIT CAP PO SCH (09:16)
[2018-06-14] MEDS: METHADONE (1 MG/ML 5 ML PO UD SYG) PO SCH (09:17)
[2018-06-14] MEDS: ACETAMINOPHEN 325 MG TAB PO PRN (14:13)
--- NOTE | 2018-06-14 15:30 | PN ---
Date/Time of Note Date/Time of Note DATE: 06/14/18 TIME: 15:29 Assessment/Plan VTE Prophylaxis Risk score (from Nsg)>0 risk: 3 SCD applied (from Nsg): Yes Pharmacological prophylaxis: apixaban Lines/Catheters IV Catheter Type (from Nrsg): Peripheral IV Urinary Cath still in place: No Assessment/Plan Hospital Course SUBJECTIVE: Denies any dyspnea at this time. Denies any chest pain. OBJECTIVE: Physical Exam General: Frail looking, 68 year-old female lying in bed in no apparent distress. HEENT: Normocephalic, atraumatic. Eyes: Anicteric sclerae, conjunctivae clear. ENT: Nasal septum midline, oral mucosa moist. Neck supple, no JVD noticed. Respiratory: Bilaterally diminished breath sounds. No use of accessory muscles of respiration. B/L rales. Cardiovascular: S1, S2 heard. Regular rate and rhythm. Abdomen: Soft, nontender, and nondistended. Bowel sounds positive in all 4 quadrants. Genitourinary: Deferred. Extremities: No cyanosis, no edema. Peripheral pulses palpable. Neurologic: The patient is Skin: Normal skin turgor. No skin rashes. Labs & Vitals per chart ASSESSMENT & PLAN This is a 68-year-old female with past medical history of COPD, chronic respiratory failure dependent on home oxygen, hypertension, pulmonary hype rtension, chronic kidney disease, alcohol abuse, and a remote history of heroin abuse currently on methadone. The patient went to the local hospital on June 02, 2018 because of shortness of breath. The patient was noted to be in significant respiratory failure that necessitated admission to [facility] including ICU stay and noninvasive positive pressure ventilation. The patient also had underlying coagulopathy with an INR of 2.5. The patient also had a WBC of 15.7. The patient was empirically treated for any underlying infectious process. Infectious diseases was involved in the patient's care. The patient also had NSTEMI. The patient was evaluated by cardiology at the transferring facility with the 2D echocardiogram showing preserved left ventricular ejection fraction, but evidence of underlying pulmonary hypertension. The patient was gradually moved out of the intensive care unit once the patient was stable. The patient was transferred to [facility] on 06/03/2018 for further management and evaluation because of insurance reasons. 1. COPD exacerbation. -Continue bronchodilators IZAIAH and LABA. -S/P tapering dose of steroids. 2. Acute on chronic respiratory failure -Hypoxic and hypercapnic -Status post noninvasive positive pressure ventilation at the transferring facility. -Currently stable. 3. Possible underlying acute bronchitis -S/P empiric cefepime as per ID from the transferring facility. 4. NSTEMI. -Preserved left ventricular ejection fraction -Status post cardiology evaluation at the transferring facility. -Most probably secondary to demand ischemia. -Continue ASA. -Cardiology following. -Not a good candidate for invasive procedures prior to the patient's underlying thrombocytopenia noncompliance. 5. Essential hypertension -Continue antihypertensives. 6. Pulmonary hypertension. -Most probably secondary to chronic hypoxia. -Continue supplemental oxygen. 7. Pulmonary emboli to the medial right middle lobe and inferomedial right lower lobe. -On therapeutic anticoagulation. 8. Transaminitis without hyperbilirubinemia -Known history of hepatitis C and alcoholic liver cirrhosis. -On lactulose and rifaximin. -Gastroenterology following. -Avoid hepatotoxic medications. -Trend LFTs. 9. History of heroin abuse. -Currently on methadone. 10. Coagulopathy. -Most probably secondary to underlying liver cirrhosis. -Monitor for bleeding. 11. Microcytic anemia -Most probably secondary to underlying alcohol abuse. -Monitor H&H closely. 12. Dysphagia. -Aspiration precautions. -S/P ST evaluation. 13. DVT prophylaxis -Factor Xa inhibitors. 14. Debility. -Continue physical therapy. 15. Plan. -The patient is stable to be discharged. -However, the patient lives at home by herself and has a part-time caregiver. -The patient would benefit from a prison facility versus assisted living facility, where she can be supervised 21/09. The patient was seen in collaboration with Dr. Shoemaker. Result Diagram: 06/12/18 0438 06/12/18 0438 Results 24hrs Laboratory Tests Test 06/14/18 09:34 Lab Scanned Report REFERENCE LAB Exam/Review of Systems Exam Vitals Vital Signs Date Temp Pulse Resp B/P (MAP) Pulse Ox O2 O2 Flow FiO2 Time Delivery Rate 06/14/18 98.5 74 20 127/66 94 07:22 (86) 06/12/18 Room Air 14:04 06/10/18 2.0 20:00 06/10/18 21 16:08 Intake and Output 06/13/18 06/13/18 06/14/18 1515:00 23:00 07:00 IntakeIntake Total 720 ml 960 ml OutputOutput Total 150 ml BalanceBalance 570 ml 960 ml Results Results 24hrs Laboratory Tests Test 06/14/18 09:34 Lab Scanned Report REFERENCE LAB Medications Medication Current Medications IV Flush (NS 3 ml) 3 ml PER PROTOCOL IV ; Start 06/04/18 at 00:00 Ondansetron HCl (Zofran Inj) 4 mg Q6H PRN IV NAUSEA/VOMITING; Start 06/04/18 at 00:00 Acetaminophen (Tylenol Tab) 650 mg Q6H PRN PO .PAIN 1-3 OR TEMP Last administered on 06/14/18 14:13; Admin Dose 650 MG; Start 06/04/18 at 00:00 Pantoprazole (Protonix Tab) 40 mg DAILY@06 PO Last administered on 06/14/18 06:00; Admin Dose 40 MG; Start 06/04/18 at 06:00 Amlodipine Besylate (Norvasc) 5 mg DAILY PO Last administered on 06/14/18 09:16; Admin Dose 5 MG; Start 06/04/18 at 09:00 Baclofen (Lioresal) 10 mg BID PO Last administered on 06/14/18 09:15; Admin Dose 10 MG; Start 06/04/18 at 00:30 Hydroxyzine HCl (Atarax) 10 mg TID PO Last administered on 06/14/18 13:23; Admin Dose 10 MG; Start 06/04/18 at 09:00 Fluticasone/ Vilanterol (Breo Ellipta 100-25 Mcg Inh) 1 inh DAILY INH Last administered on 06/12/18at 08:42; Admin Dose 1 INH; Start 06/04/18 at 09:00 Miscellaneous Information (Pending [facility] Order For Wound Care) This patient savage... PRN PRN XX WOUND CARE; Start 06/04/18 at 03:00 Rifaximin (Xifaxan) 550 mg BID PO Last administered on 06/14/18 09:15; Admin Dose 550 MG; Start 06/04/18 at 11:30 Lactulose (Enulose) 30 gm Q8 PO Last administered on 06/14/18at 14:04; Admin Dose 30 GM; Start 06/05/18 at 14:00 Sertraline HCl (Zoloft) 50 mg DAILY PO Last administered on 06/14/18 09:16; Admin Dose 50 MG; Start 06/07/18 at 09:00 Simethicone (Mylicon) 160 mg Q6H PRN PO DISTENSION/GAS/BLOATING Last administered on 06/07/18 01:59; Admin Dose 160 MG; Start 06/07/18 at 01:00 Al Hydrox/Mg Hydrox/Simethicone (Mag-Al Plus) 30 ml Q6H PRN PO GASTROINTESTINAL UPSET; Start 06/07/18 at 01:00 Oxymetazoline HCl (Afrin [place]) 2 spray BID NASAL Last administered on 06/11/18 20:42; Admin Dose 2 SPRAY; Start 06/08/18 at 21:00 Apixaban (Eliquis) 10 mg BID PO Last administered on 06/14/18 09:16; Admin Dos e 10 MG; Start 06/08/18 at 21:00 Cholecalciferol (Vitamin D) 2,000 unit DAILY PO Last administered on 06/14/18 09:16; Admin Dose 2,000 UNIT; Start 06/10/18 at 09:00 Methadone HCl (Methadone) 60 mg DAILY PO Last administered on 06/14/18 09:16; Admin Dose 60 MG; Start 06/10/18 at 10:30 Methadone HCl (Methadone Liq) 8 mg DAILY PO Last administered on 06/14/18 09:17; Admin Dose 8 MG; Start 06/10/18 at 10:30 Ipratropium [place] (Atrovent 0.02% (Neb)) 0.5 mg Q2H RESP THERAPY PRN HHN WHEEZING AND SOB; Start 06/10/18 at 21:00 Levalbuterol (Xopenex Neb) 1.25 mg Q2H RESP THERAPY PRN HHN WHEEZING AND SOB; Start 06/10/18 at 21:00 Calcium Carbonate (Oyster Shell Calcium) 1.25 gm BID PO Last administered on 06/14/18 09:16; Admin Dose 1.25 GM; Start 06/11/18 at 13:00 Docusate Sodium (Colace) 100 mg BID PO Last administered on 06/14/18 09:15; Admin Dose 100 MG; Start 06/11/18 at 21:00 ZHANG WARE NP Jun 14, 2018 15:30
[2018-06-14 20:00] VITALS: BP 124/60; PULSE 80; RESP 19
[2018-06-14] MEDS: ZOLPIDEM 5 MG TAB PO PRN (23:32)
[2018-06-15 02:00] VITALS: BP 109/58; PULSE 70; RESP 18
[2018-06-15] MEDS: PANTOPRAZOLE (EC) 40 MG TAB PO SCH (05:46)
[2018-06-15] MEDS: LACTULOSE 30ML CUP PO SCH ×3 (05:47→21:14)
[2018-06-15 07:34] VITALS: BP 119/68; PULSE 79; RESP 18
[2018-06-15] MEDS: SERTRALINE 50 MG TAB PO SCH (08:54)
[2018-06-15] MEDS: hydrOXYzine HCL 10 MG TAB PO SCH ×3 (08:54→21:09)
[2018-06-15] MEDS: CALCIUM CARBONATE 1.25 GM TAB PO SCH ×2 (08:54→21:09)
[2018-06-15] MEDS: CHOLECALCIFEROL 2,000 UNIT CAP PO SCH (08:54)
[2018-06-15] MEDS: APIXABAN 5 MG TABLET PO SCH ×2 (08:54→21:09)
[2018-06-15] MEDS: DOCUSATE SODIUM 100 MG CAP PO SCH ×2 (08:54→21:09)
[2018-06-15] MEDS: METHADONE 10 MG TAB PO SCH ×2 (08:55→09:41)
[2018-06-15] MEDS: RIFAXIMIN 550 MG TAB PO SCH ×2 (08:55→21:09)
[2018-06-15] MEDS: BACLOFEN 10 MG TAB PO SCH ×2 (08:55→21:09)
[2018-06-15] MEDS: AMLODIPINE 5 MG TAB PO SCH (08:55)
[2018-06-15] MEDS: METHADONE (1 MG/ML 5 ML PO UD SYG) PO SCH (08:56)
[2018-06-15] MEDS: FLUTICASONE/VILANTEROL 100-25 INH SCH (09:00)
[2018-06-15] MEDS: OXYMETAZOLINE 0.05% 15 ML NAS SPRAY NASAL SCH ×2 (09:00→21:00)
[2018-06-15] MEDS ORDERED: MAGNESIUM SULFATE 2 GM/50 ML 50 ML IVPB ONE (12:00)
[2018-06-15 13:23] VITALS: BP 105/59; PULSE 93; RESP 18
--- NOTE | 2018-06-15 15:12 | PN ---
Date/Time of Note Date/Time of Note DATE: 06/15/18 TIME: 15:12 Assessment/Plan VTE Prophylaxis Risk score (from Nsg)>0 risk: 3 SCD applied (from Nsg): Yes Pharmacological prophylaxis: apixaban Lines/Catheters IV Catheter Type (from Nrsg): Peripheral IV Urinary Cath still in place: No Assessment/Plan Hospital Course SUBJECTIVE: Denies any dyspnea at this time. Denies any chest pain. OBJECTIVE: Physical Exam General: Frail looking, 68 year-old female lying in bed in no apparent distress. HEENT: Normocephalic, atraumatic. Eyes: Anicteric sclerae, conjunctivae clear. ENT: Nasal septum midline, oral mucosa moist. Neck supple, no JVD noticed. Respiratory: Bilaterally diminished breath sounds. No use of accessory muscles of respiration. B/L rales. Cardiovascular: S1, S2 heard. Regular rate and rhythm. Abdomen: Soft, nontender, and nondistended. Bowel sounds positive in all 4 quadrants. Genitourinary: Deferred. Extremities: No cyanosis, no edema. Peripheral pulses palpable. Neurologic: The patient is Skin: Normal skin turgor. No skin rashes. Labs & Vitals per chart ASSESSMENT & PLAN This is a 68-year-old female with past medical history of COPD, chronic respiratory failure dependent on home oxygen, hypertension, pulmonary hype rtension, chronic kidney disease, alcohol abuse, and a remote history of heroin abuse currently on methadone. The patient went to the local hospital on June 02, 2018 because of shortness of breath. The patient was noted to be in significant respiratory failure that necessitated admission to [facility] including ICU stay and noninvasive positive pressure ventilation. The patient also had underlying coagulopathy with an INR of 2.5. The patient also had a WBC of 15.7. The patient was empirically treated for any underlying infectious process. Infectious diseases was involved in the patient's care. The patient also had NSTEMI. The patient was evaluated by cardiology at the transferring facility with the 2D echocardiogram showing preserved left ventricular ejection fraction, but evidence of underlying pulmonary hypertension. The patient was gradually moved out of the intensive care unit once the patient was stable. The patient was transferred to [facility] on 06/03/2018 for further management and evaluation because of insurance reasons. 1. COPD exacerbation. -Continue bronchodilators IZAIAH and LABA. -S/P tapering dose of steroids. 2. Acute on chronic respiratory failure -Hypoxic and hypercapnic -Status post noninvasive positive pressure ventilation at the transferring facility. -Currently stable. 3. Possible underlying acute bronchitis -S/P empiric cefepime as per ID from the transferring facility. 4. NSTEMI. -Preserved left ventricular ejection fraction -Status post cardiology evaluation at the transferring facility. -Most probably secondary to demand ischemia. -Continue ASA. -Cardiology following. -Not a good candidate for invasive procedures prior to the patient's underlying thrombocytopenia noncompliance. 5. Essential hypertension -Continue antihypertensives. 6. Pulmonary hypertension. -Most probably secondary to chronic hypoxia. -Continue supplemental oxygen. 7. Pulmonary emboli to the medial right middle lobe and inferomedial right lower lobe. -On therapeutic anticoagulation. 8. Transaminitis without hyperbilirubinemia -Known history of hepatitis C and alcoholic liver cirrhosis. -On lactulose and rifaximin. -Gastroenterology following. -Avoid hepatotoxic medications. -Trend LFTs. 9. History of heroin abuse. -Currently on methadone. 10. Coagulopathy. -Most probably secondary to underlying liver cirrhosis. -Monitor for bleeding. 11. Microcytic anemia -Most probably secondary to underlying alcohol abuse. -Monitor H&H closely. 12. Dysphagia. -Aspiration precautions. -S/P ST evaluation. 13. DVT prophylaxis -Factor Xa inhibitors. 14. Debility. -Continue physical therapy. 15. Plan. -The patient is stable to be discharged. -However, the patient lives at home by herself and has a part-time caregiver. -The patient would benefit from a [place] [facility] facility versus assisted living facility, where she can be supervised 21/09. -Being evaluated for transfer to acute rehabilitation unit. The patient was seen in collaboration with Dr. Shoemaker. Result Diagram: 06/15/18 0436 06/15/18 0436 Results 24hrs Laboratory Tests Test 06/15/18 04:36 White Blood Count 8.9 Red Blood Count 3.96 L Hemoglobin 12.3 Hematocrit 39.7 Mean Corpuscular Volume 100.3 Mean Corpuscular Hemoglobin 31.1 Mean Corpuscular Hemoglobin Concent 31.0 L Red Cell Distribution Width 16.4 H Platelet Count 161 Mean Platelet Volume 12.3 H Immature Granulocytes % 0.400 Neutrophils % 73.8 Lymphocytes % 15.9 Monocytes % 7.2 Eosinophils % 2.4 Basophils % 0.3 Nucleated Red Blood Cells % 0.0 Immature Granulocytes # 0.040 H Neutrophils # 6.6 Lymphocytes # 1.4 Monocytes # 0.6 Eosinophils # 0.2 Basophils # 0.0 Nucleated Red Blood Cells # 0.0 Sodium Level 139 Potassium Level 3.6 Chloride Level 104 Carbon Dioxide Level 29 Anion Gap 6 Blood Urea Nitrogen 12 Creatinine 0.67 Est Glomerular Filtrat Rate mL/min > 60 Glucose Level 90 Calcium Level 9.1 Phosphorus Level 3.8 Magnesium Level 1.6 L Exam/Review of Systems Exam Vitals Vital Signs Date Temp Pulse Resp B/P (MAP) Pulse Ox O2 O2 Flow FiO2 Time Delivery Rate 06/15/18 98.3 93 18 105/59 94 13:23 (74) 06/12/18 Room Air 14:04 Intake and Output 06/14/18 06/14/18 06/15/18 1515:00 23:00 07:00 IntakeIntake Total 1200 ml 600 ml BalanceBalance 1200 ml 600 ml Results Results 24hrs Laboratory Tests Test 06/15/18 04:36 White Blood Count 8.9 Red Blood Count 3.96 L Hemoglobin 12.3 Hematocrit 39.7 Mean Corpuscular Volume 100.3 Mean Corpuscular Hemoglobin 31.1 Mean Corpuscular Hemoglobin Concent 31.0 L Red Cell Distribution Width 16.4 H Platelet Count 161 Mean Platelet Volume 12.3 H Immature Granulocytes % 0.400 Neutrophils % 73.8 Lymphocytes % 15.9 Monocytes % 7.2 Eosinophils % 2.4 Basophils % 0.3 Nucleated Red Blood Cells % 0.0 Immature Granulocytes # 0.040 H Neutrophils # 6.6 Lymphocytes # 1.4 Monocytes # 0.6 Eosinophils # 0.2 Basophils # 0.0 Nucleated Red Blood Cells # 0.0 Sodium Level 139 Potassium Level 3.6 Chloride Level 104 Carbon Dioxide Level 29 Anion Gap 6 Blood Urea Nitrogen 12 Creatinine 0.67 Est Glomerular Filtrat Rate mL/min > 60 Glucose Level 90 Calcium Level 9.1 Phosphorus Level 3.8 Magnesium Level 1.6 L Medications Medication Current Medications IV Flush (NS 3 ml) 3 ml PER PROTOCOL IV ; Start 06/04/18 at 00:00 Ondansetron HCl (Zofran Inj) 4 mg Q6H PRN IV NAUSEA/VOMITING; Start 06/04/18 at 00:00 Acetaminophen (Tylenol Tab) 650 mg Q6H PRN PO .PAIN 1-3 OR TEMP Last administered on 06/14/18 14:13; Admin Dose 650 MG; Start 06/04/18 at 00:00 Pantoprazole (Protonix Tab) 40 mg DAILY@06 PO Last administered on 06/15/18 05:46; Admin Dose 40 MG; Start 06/04/18 at 06:00 Amlodipine Besylate (Norvasc) 5 mg DAILY PO Last administered on 06/15/18 08:55; Admin Dose 5 MG; Start 06/04/18 at 09:00 Baclofen (Lioresal) 10 mg BID PO Last administered on 06/15/18 08:55; Admin Dose 10 MG; Start 06/04/18 at 00:30 Hydroxyzine HCl (Atarax) 10 mg TID PO Last administered on 06/15/18 12:29; Admin Dose 10 MG; Start 06/04/18 at 09:00 Fluticasone/ Vilanterol (Breo Ellipta 100-25 Mcg Inh) 1 inh DAILY INH Last administered on 06/12/18 08:42; Admin Dose 1 INH; Start 06/04/18 at 09:00 Miscellaneous Information (Pending [facility] Order For Wound Care) This patient savage... PRN PRN XX WOUND CARE; Start 06/04/18 at 03:00 Rifaximin (Xifaxan) 550 mg BID PO Last administered on 06/15/18 08:55; Admin Dose 550 MG; Start 06/04/18 at 11:30 Lactulose (Enulose) 30 gm Q8 PO Last administered on 06/15/18 05:47; Admin Dos e 30 GM; Start 06/05/18 at 14:00 Sertraline HCl (Zoloft) 50 mg DAILY PO Last administered on 06/15/18 08:54; Admin Dose 50 MG; Start 06/07/18 at 09:00 Simethicone (Mylicon) 160 mg Q6H PRN PO DISTENSION/GAS/BLOATING Last administered on 06/07/18 01:59; Admin Dose 160 MG; Start 06/07/18 at 01:00 Al Hydrox/Mg Hydrox/Simethicone (Mag-Al Plus) 30 ml Q6H PRN PO GASTROINTESTINAL UPSET; Start 06/07/18 at 01:00 Oxymetazoline HCl (Afrin [place]) 2 spray BID NASAL Last administered on 06/11/18 20:42; Admin Dose 2 SPRAY; Start 06/08/18 at 21:00 Apixaban (Eliquis) 10 mg BID PO Last administered on 06/15/18 08:54; Admin Dose 10 MG; Start 06/08/18 at 21:00 Cholecalciferol (Vitamin D) 2,000 unit DAILY PO Last administered on 06/15/18 08:54; Admin Dose 2,000 UNIT; Start 06/10/18 at 09:00 Methadone HCl (Methadone) 60 mg DAILY PO Last administered on 06/15/18 08:55; Admin Dose 60 MG; Start 06/10/18 at 10:30 Methadone HCl (Methadone Liq) 8 mg DAILY PO Last administered on 06/15/18 08:56; Admin Dose 8 MG; Start 06/10/18 at 10:30 Ipratropium [place] (Atrovent 0.02% (Neb)) 0.5 mg Q2H RESP THERAPY PRN HHN WHEEZING AND SOB; Start 06/10/18 at 21:00 Levalbuterol (Xopenex Neb) 1.25 mg Q2H RESP THERAPY PRN HHN WHEEZING AND SOB; Start 06/10/18 at 21:00 Calcium Carbonate (Oyster Shell Calcium) 1.25 gm BID PO Last administered on 06/15/18 08:54; Admin Dose 1.25 GM; Start 06/11/18 at 13:00 Docusate Sodium (Colace) 100 mg BID PO Last administered on 06/15/18 08:54; Admin Dose 100 MG; Start 06/11/18 at 21:00 Zolpidem Tartrate (Ambien) 5 mg HS PRN PO INSOMNIA Last administered on 06/14/18 23:32; Admin Dose 5 MG; Start 06/14/18 at 22:00 ZHANG WARE NP Jun 15, 2018 15:12
[2018-06-15 19:19] VITALS: BP 113/57; PULSE 69; RESP 18
[2018-06-16] MEDS: ZOLPIDEM 5 MG TAB PO PRN ×2 (00:30→22:56)
[2018-06-16 01:58] VITALS: BP 104/54; PULSE 66; RESP 18
[2018-06-16] MEDS: PANTOPRAZOLE (EC) 40 MG TAB PO SCH (06:23)
[2018-06-16] MEDS: LACTULOSE 30ML CUP PO SCH ×2 (06:23→14:00)
[2018-06-16 08:08] VITALS: BP 109/55; PULSE 95; RESP 18
[2018-06-16] MEDS: METHADONE (1 MG/ML 5 ML PO UD SYG) PO SCH (08:46)
[2018-06-16] MEDS: METHADONE 10 MG TAB PO SCH (08:48)
[2018-06-16] MEDS: OXYMETAZOLINE 0.05% 15 ML NAS SPRAY NASAL SCH ×2 (08:50→20:46)
[2018-06-16] MEDS: FLUTICASONE/VILANTEROL 100-25 INH SCH (08:50)
[2018-06-16] MEDS: SERTRALINE 50 MG TAB PO SCH (08:51)
[2018-06-16] MEDS: BACLOFEN 10 MG TAB PO SCH ×2 (08:51→20:45)
[2018-06-16] MEDS: DOCUSATE SODIUM 100 MG CAP PO SCH ×2 (08:51→20:45)
[2018-06-16] MEDS: CALCIUM CARBONATE 1.25 GM TAB PO SCH ×2 (08:51→20:46)
[2018-06-16] MEDS: AMLODIPINE 5 MG TAB PO SCH (08:51)
[2018-06-16] MEDS: APIXABAN 5 MG TABLET PO SCH ×2 (08:51→20:46)
[2018-06-16] MEDS: RIFAXIMIN 550 MG TAB PO SCH ×2 (08:51→20:46)
[2018-06-16] MEDS: hydrOXYzine HCL 10 MG TAB PO SCH ×3 (08:51→20:45)
[2018-06-16] MEDS: CHOLECALCIFEROL 2,000 UNIT CAP PO SCH (08:51)
[2018-06-16 13:20] VITALS: BP 115/59; PULSE 89; RESP 18
--- NOTE | 2018-06-16 15:25 | PN ---
Date/Time of Note Date/Time of Note DATE: 06/16/18 TIME: 15:25 Assessment/Plan VTE Prophylaxis Risk score (from Ns)>0 risk: 2 SCD applied (from Ns): Yes Pharmacological prophylaxis: apixaban Lines/Catheters IV Catheter Type (from Nrsg): [place] Urinary Cath still in place: No Assessment/Plan Hospital Course SUBJECTIVE: Denies any dyspnea at this time. Denies any chest pain. OBJECTIVE: Physical Exam General: Frail looking, 68 year-old female lying in bed in no apparent distress. HEENT: Normocephalic, atraumatic. Eyes: Anicteric sclerae, conjunctivae clear. ENT: Nasal septum midline, oral mucosa moist. Neck supple, no JVD noticed. Respiratory: Bilaterally diminished breath sounds. No use of accessory muscles of respiration. B/L rales. Cardiovascular: S1, S2 heard. Regular rate and rhythm. Abdomen: Soft, nontender, and nondistended. Bowel sounds positive in all 4 quadrants. Genitourinary: Deferred. Extremities: No cyanosis, no edema. Peripheral pulses palpable. Neurologic: The patient is Skin: Normal skin turgor. No skin rashes. Labs & Vitals per chart ASSESSMENT & PLAN This is a 68-year-old female with past medical history of COPD, chronic respiratory failure dependent on home oxygen, hypertension, pulmonary hypert ension, chronic kidney disease, alcohol abuse, and a remote history of heroin abuse currently on methadone. The patient went to the local hospital on June 02, 2018 because of shortness of breath. The patient was noted to be in significant respiratory failure that necessitated admission to [facility] including ICU stay and noninvasive positive pressure ventilation. The patient also had underlying coagulopathy with an INR of 2.5. The patient also had a WBC of 15.7. The patient was empirically treated for any underlying infectious process. Infectious diseases was involved in the patient's care. The patient also had NSTEMI. The patient was evaluated by cardiology at the transferring facility with the 2D echocardiogram showing preserved left ventricular ejection fraction, but evidence of underlying pulmonary hypertension. The patient was gradually moved out of the intensive care unit once the patient was stable. The patient was transferred to [facility] on 06/03/2018 for further management and evaluation because of insurance reasons. 1. COPD exacerbation. -Continue bronchodilators IZAIAH and LABA. -S/P tapering dose of steroids. 2. Acute on chronic respiratory failure -Hypoxic and hypercapnic -Status post noninvasive positive pressure ventilation at the transferring facility. -Currently stable. 3. Possible underlying acute bronchitis -S/P empiric cefepime as per ID from the transferring facility. 4. NSTEMI. -Preserved left ventricular ejection fraction -Status post cardiology evaluation at the transferring facility. -Most probably secondary to demand ischemia. -Continue ASA. -Cardiology following. -Not a good candidate for invasive procedures prior to the patient's underlying thrombocytopenia noncompliance. 5. Essential hypertension -Continue antihypertensives. 6. Pulmonary hypertension. -Most probably secondary to chronic hypoxia. -Continue supplemental oxygen. 7. Pulmonary emboli to the medial right middle lobe and inferomedial right lower lobe. -On therapeutic anticoagulation. 8. Transaminitis without hyperbilirubinemia -Known history of hepatitis C and alcoholic liver cirrhosis. -On lactulose and rifaximin. -Gastroenterology following. -Avoid hepatotoxic medications. -Trend LFTs. 9. History of heroin abuse. -Currently on methadone. 10. Coagulopathy. -Most probably secondary to underlying liver cirrhosis. -Monitor for bleeding. 11. Microcytic anemia -Most probably secondary to underlying alcohol abuse. -Monitor H&H closely. 12. Dysphagia. -Aspiration precautions. -S/P ST evaluation. 13. DVT prophylaxis -Factor Xa inhibitors. 14. Debility. -Continue physical therapy. 15. Plan. -The patient is stable to be discharged. -However, the patient lives at home by herself and has a part-time caregiver. -The patient would benefit from a correction facility versus assisted living facility, where she can be supervised 21/09. -Awaiting SNF placement. The patient was seen in collaboration with Dr. Shoemaker. Result Diagram: 06/15/18 0436 06/15/18 0436 Exam/Review of Systems Exam Vitals Vital Signs Date Temp Pulse Resp B/P (MAP) Pulse Ox O2 O2 Flow FiO2 Time Delivery Rate 06/16/18 98.3 89 18 115/59 91 13:20 (77) 06/12/18 Room Air 14:04 Intake and Output 06/15/18 06/15/18 06/16/18 1515:00 23:00 07:00 IntakeIntake Total 770 ml 240 ml 300 ml BalanceBalance 770 ml 240 ml 300 ml Medications Medication Current Medications IV Flush (NS 3 ml) 3 ml PER PROTOCOL IV ; Start 06/04/18 at 00:00 Ondansetron HCl (Zofran Inj) 4 mg Q6H PRN IV NAUSEA/VOMITING; Start 06/04/18 at 00:00 Acetaminophen (Tylenol Tab) 650 mg Q6H PRN PO .PAIN 1-3 OR TEMP Last administered on 06/14/18 14:13; Admin Dose 650 MG; Start 06/04/18 at 00:00 Pantoprazole (Protonix Tab) 40 mg DAILY@06 PO Last administered on 06/16/18 06:23; Admin Dose 40 MG; Start 06/04/18 at 06:00 Amlodipine Besylate (Norvasc) 5 mg DAILY PO Last administered on 06/16/18 08: 51; Admin Dose 5 MG; Start 06/04/18 at 09:00 Baclofen (Lioresal) 10 mg BID PO Last administered on 06/16/18 08:51; Admin Dose 10 MG; Start 06/04/18 at 00:30 Hydroxyzine HCl (Atarax) 10 mg TID PO Last administered on 06/16/18 13:09; Admin Dose 10 MG; Start 06/04/18 at 09:00 Fluticasone/ Vilanterol (Breo Ellipta 100-25 Mcg Inh) 1 inh DAILY INH Last administered on 06/12/18 08:42; Admin Dose 1 INH; Start 06/04/18 at 09:00 Miscellaneous Information (Pending [facility] Order For Wound Care) This patient savage... PRN PRN XX WOUND CARE; Start 06/04/18 at 03:00 Rifaximin (Xifaxan) 550 mg BID PO Last administered on 06/16/18 08:51; Admin Dose 550 MG; Start 06/04/18 at 11:30 Lactulose (Enulose) 30 gm Q8 PO Last administered on 06/16/18 06:23; Admin Dose 30 GM; Start 06/05/18 at 14:00 Sertraline HCl (Zoloft) 50 mg DAILY PO Last administered on 06/16/18 08:51; Admin Dose 50 MG; Start 06/07/18 at 09:00 Simethicone (Mylicon) 160 mg Q6H PRN PO DISTENSION/GAS/BLOATING Last administered on 06/16/18 08:56; Admin Dose 160 MG; Start 06/07/18 at 01:00 Al Hydrox/Mg Hydrox/Simethicone (Mag-Al Plus) 30 ml Q6H PRN PO GASTROINTESTINAL UPSET Last administered on 06/16/18 08:56; Admin Dose 30 ML; Start 06/07/18 at 01:00 Oxymetazoline HCl (Afrin [place]) 2 spray BID NASAL Last administered on 06/11/18 20:42; Admin Dose 2 SPRAY; Start 06/08/18 at 21:00 Apixaban (Eliquis) 10 mg BID PO Last administered on 06/16/18 08:51; Admin Dose 10 MG; Start 06/08/18 at 21:00 Cholecalciferol (Vitamin D) 2,000 unit DAILY PO Last administered on 06/16/18 08:51; Admin Dose 2,000 UNIT; Start 06/10/18 at 09:00 Methadone HCl (Methadone) 60 mg DAILY PO Last administered on 06/16/18 08:48; Admin Dose 60 MG; Start 06/10/18 at 10:30 Methadone HCl (Methadone Liq) 8 mg DAILY PO Last administered on 06/16/18 08:46; Admin Dose 8 MG; Start 06/10/18 at 10:30 Ipratropium [place] (Atrovent 0.02% (Neb)) 0.5 mg Q2H RESP THERAPY PRN HHN WHEEZING AND SOB; Start 06/10/18 at 21:00 Levalbuterol (Xopenex Neb) 1.25 mg Q2H RESP THERAPY PRN HHN WHEEZING AND SOB; Start 06/10/18 at 21:00 Calcium Carbonate (Oyster Shell Calcium) 1.25 gm BID PO Last administered on 06/16/18 08:51; Admin Dose 1.25 GM; Start 06/11/18 at 13:00 Docusate Sodium (Colace) 100 mg BID PO Last administered on 06/16/18 08:51; Admin Dose 100 MG; Start 06/11/18 at 21:00 Zolpidem Tartrate (Ambien) 5 mg HS PRN PO INSOMNIA Last administered on 06/16/18 00:30; Admin Dose 5 MG; Start 06/14/18 at 22:00 ZHANG WARE NP Jun 16, 2018 15:25
[2018-06-16] MEDS: ACETAMINOPHEN 325 MG TAB PO PRN (15:59)
[2018-06-16 20:00] VITALS: BP 105/57; PULSE 76; RESP 17
[2018-06-16] MEDS: MAGNESIUM HYDROXIDE 30ML CUP PO PRN (20:46)
[2018-06-17 02:00] VITALS: BP 112/58; PULSE 79; RESP 18
[2018-06-17] MEDS: PANTOPRAZOLE (EC) 40 MG TAB PO SCH (05:53)
[2018-06-17 08:21] VITALS: BP 116/58; PULSE 77; RESP 16
[2018-06-17] MEDS: FLUTICASONE/VILANTEROL 100-25 INH SCH (08:53)
[2018-06-17] MEDS: RIFAXIMIN 550 MG TAB PO SCH ×2 (08:53→21:52)
[2018-06-17] MEDS: APIXABAN 5 MG TABLET PO SCH ×2 (08:53→21:52)
[2018-06-17] MEDS: CALCIUM CARBONATE 1.25 GM TAB PO SCH ×2 (08:53→21:51)
[2018-06-17] MEDS: OXYMETAZOLINE 0.05% 15 ML NAS SPRAY NASAL SCH ×2 (08:53→21:56)
[2018-06-17] MEDS: METHADONE (1 MG/ML 5 ML PO UD SYG) PO SCH (08:55)
[2018-06-17] MEDS: hydrOXYzine HCL 10 MG TAB PO SCH ×3 (08:56→21:55)
[2018-06-17] MEDS: METHADONE 10 MG TAB PO SCH (08:56)
[2018-06-17] MEDS: SERTRALINE 50 MG TAB PO SCH (08:56)
[2018-06-17] MEDS: CHOLECALCIFEROL 2,000 UNIT CAP PO SCH (08:56)
[2018-06-17] MEDS: BACLOFEN 10 MG TAB PO SCH ×2 (08:57→21:51)
[2018-06-17] MEDS: AMLODIPINE 5 MG TAB PO SCH (08:57)
[2018-06-17] MEDS: DOCUSATE SODIUM 100 MG CAP PO SCH ×2 (08:58→21:52)
--- NOTE | 2018-06-17 10:44 | PN ---
Date/Time of Note Date/Time of Note DATE: 06/17/18 TIME: 10:44 Assessment/Plan VTE Prophylaxis Risk score (from Ns)>0 risk: 3 SCD applied (from Ns): Yes Pharmacological prophylaxis: apixaban Lines/Catheters IV Catheter Type (from Nrsg): Saline Lock Urinary Cath still in place: No Assessment/Plan Hospital Course SUBJECTIVE: Denies any dyspnea at this time. Denies any chest pain. OBJECTIVE: Physical Exam General: Frail looking, 68 year-old female lying in bed in no apparent distress. HEENT: Normocephalic, atraumatic. Eyes: Anicteric sclerae, conjunctivae clear. ENT: Nasal septum midline, oral mucosa moist. Neck supple, no JVD noticed. Respiratory: Bilaterally diminished breath sounds. No use of accessory muscles of respiration. B/L rales. Cardiovascular: S1, S2 heard. Regular rate and rhythm. Abdomen: Soft, nontender, and nondistended. Bowel sounds positive in all 4 quadrants. Genitourinary: Deferred. Extremities: No cyanosis, no edema. Peripheral pulses palpable. Neurologic: The patient is Skin: Normal skin turgor. No skin rashes. Labs & Vitals per chart ASSESSMENT & PLAN This is a 68-year-old female with past medical history of COPD, chronic respiratory failure dependent on home oxygen, hypertension, pulmonary hypert ension, chronic kidney disease, alcohol abuse, and a remote history of heroin abuse currently on methadone. The patient went to the local hospital on June 02, 2018 because of shortness of breath. The patient was noted to be in significant respiratory failure that necessitated admission to [facility] including ICU stay and noninvasive positive pressure ventilation. The patient also had underlying coagulopathy with an INR of 2.5. The patient also had a WBC of 15.7. The patient was empirically treated for any underlying infectious process. Infectious diseases was involved in the patient's care. The patient also had NSTEMI. The patient was evaluated by cardiology at the transferring facility with the 2D echocardiogram showing preserved left ventricular ejection fraction, but evidence of underlying pulmonary hypertension. The patient was gradually moved out of the intensive care unit once the patient was stable. The patient was transferred to [facility] on 06/03/2018 for further management and evaluation because of insurance reasons. 1. COPD exacerbation. -Continue bronchodilators IZAIAH and LABA. -S/P tapering dose of steroids. 2. Acute on chronic respiratory failure -Hypoxic and hypercapnic -Status post noninvasive positive pressure ventilation at the transferring facility. -Currently stable. 3. Possible underlying acute bronchitis -S/P empiric cefepime as per ID from the transferring facility. 4. NSTEMI. -Preserved left ventricular ejection fraction -Status post cardiology evaluation at the transferring facility. -Most probably secondary to demand ischemia. -Continue ASA. -Cardiology following. -Not a good candidate for invasive procedures prior to the patient's underlying thrombocytopenia noncompliance. 5. Essential hypertension -Continue antihypertensives. 6. Pulmonary hypertension. -Most probably secondary to chronic hypoxia. -Continue supplemental oxygen. 7. Pulmonary emboli to the medial right middle lobe and inferomedial right lower lobe. -On therapeutic anticoagulation. 8. Transaminitis without hyperbilirubinemia -Known history of hepatitis C and alcoholic liver cirrhosis. -On lactulose and rifaximin. -Gastroenterology following. -Avoid hepatotoxic medications. 9. History of heroin abuse. -Currently on methadone. 10. Coagulopathy. -Most probably secondary to underlying liver cirrhosis. -Monitor for bleeding. 11. Microcytic anemia -Most probably secondary to underlying alcohol abuse. -Monitor H&H closely. 12. Dysphagia. -Aspiration precautions. -S/P ST evaluation. 13. DVT prophylaxis -Factor Xa inhibitors. 14. Debility. -Continue physical therapy. 15. Plan. -The patient is stable to be discharged. -However, the patient lives at home by herself and has a part-time caregiver. -The patient would benefit from a [place] [facility] [place] facility versus assisted living facility, where she can be supervised 21/09. -Awaiting SNF placement. The patient was seen in collaboration with Dr. Shoemaker. Result Diagram: 06/15/18 0436 06/15/18 043 Exam/Review of Systems Exam Vitals Vital Signs Date Temp Pulse Resp B/P (MAP) Pulse Ox O2 O2 Flow FiO2 Time Delivery Rate 06/17/18 98.8 77 16 116/58 93 Room Air 08:21 (77) Intake and Output 06/16/18 06/16/18 06/17/18 1414:59 22:59 06:59 IntakeIntake Total 360 ml 240 ml OutputOutput Total 800 ml 400 ml BalanceBalance -440 ml -160 ml Medications Medication Current Medications IV Flush (NS 3 ml) 3 ml PER PROTOCOL IV ; Start 06/04/18 at 00:00 Ondansetron HCl (Zofran Inj) 4 mg Q6H PRN IV NAUSEA/VOMITING; Start 06/04/18 at 00:00 Acetaminophen (Tylenol Tab) 650 mg Q6H PRN PO .PAIN 1-3 OR TEMP Last administered on 06/16/18 15:59; Admin Dose 650 MG; Start 06/04/18 at 00:00 Pantoprazole (Protonix Tab) 40 mg DAILY@06 PO Last administered on 06/17/18 05:53; Admin Dose 40 MG; Start 06/04/18 at 06:00 Amlodipine Besylate (Norvasc) 5 mg DAILY PO Last administered on 06/17/18 08:57; Admin Dose 5 MG; Start 06/04/18 at 09:00 Baclofen (Lioresal) 10 mg BID PO Last administered on 06/17/18 08:57; Admin Dose 10 MG; Start 06/04/18 at 00:30 Hydroxyzine HCl (Atarax) 10 mg TID PO Last administered on 06/17/18 08:56; Admin Dose 10 MG; Start 06/04/18 at 09:00 Fluticasone/ Vilanterol (Breo Ellipta 100-25 Mcg Inh) 1 inh DAILY INH Last administered on 06/17/18 08:53; Admin Dose 1 INH; Start 06/04/18 at 09:00 Miscellaneous Information (Pending Santyl Order For Wound Care) This patient savage... PRN PRN XX WOUND CARE; Start 06/04/18 at 03:00 Rifaximin (Xifaxan) 550 mg BID PO Last administered on 06/17/18 08:53; Admin Dose 550 MG; Start 06/04/18 at 11:30 Sertraline HCl (Zoloft) 50 mg DAILY PO Last administered on 06/17/18 08:56; Admin Dose 50 MG; Start 06/07/18 at 09:00 Simethicone (Mylicon) 160 mg Q6H PRN PO DISTENSION/GAS/BLOATING Last administered on 06/16/18 08:56; Admin Dose 160 MG; Start 06/07/18 at 01:00 Al Hydrox/Mg Hydrox/Simethicone (Mag-Al Plus) 30 ml Q6H PRN PO GASTROINTESTINAL UPSET Last administered on 06/16/18 08:56; Admin Dose 30 ML; Start 06/07/18 at 01:00 Oxymetazoline HCl (Afrin [place]) 2 spray BID NASAL Last administered on 06/17/18 08:53; Admin Dose 2 SPRAY; Start 06/08/18 at 21:00 Apixaban (Eliquis) 10 mg BID PO Last administered on 06/17/18 08:53; Admin Dose 10 MG; Start 06/08/18 at 21:00 Cholecalciferol (Vitamin D) 2,000 unit DAILY PO Last administered on 06/17/18 08:56; Admin Dose 2,000 UNIT; Start 06/10/18 at 09:00 Methadone HCl (Methadone) 60 mg DAILY PO Last administered on 06/17/18 08:56; Admin Dose 60 MG; Start 06/10/18 at 10:30 Methadone HCl (Methadone Liq) 8 mg DAILY PO Last administered on 06/17/18 08:55; Admin Dose 8 MG; Start 06/10/18 at 10:30 Ipratropium [place] (Atrovent 0.02% (Neb)) 0.5 mg Q2H RESP THERAPY PRN HHN WHEEZING AND SOB; Start 06/10/18 at 21:00 Levalbuterol (Xopenex Neb) 1.25 mg Q2H RESP THERAPY PRN HHN WHEEZING AND SOB; Start 06/10/18 at 21:00 Calcium Carbonate (Oyster Shell Calcium) 1.25 gm BID PO Last administered on 06/17/18 08:53; Admin Dose 1.25 GM; Start 06/11/18 at 13:00 Docusate Sodium (Colace) 100 mg BID PO Last administered on 06/17/18 08:58; Admin Dose 100 MG; Start 06/11/18 at 21:00 Zolpidem Tartrate (Ambien) 5 mg HS PRN PO INSOMNIA Last administered on 06/16/18 22:56; Admin Dose 5 MG; Start 06/14/18 at 22:00 Magnesium Hydroxide (Milk Of Mag) 30 ml Q6H PRN PO CONSTIPATION Last administe red on 06/16/18 20:46; Admin Dose 30 ML; Start 4/18/19 at 17:30 ZHANG WARE NP Jun 17, 2018 10:44
[2018-06-17 19:17] VITALS: BP 98/53; PULSE 80; RESP 16
[2018-06-17] MEDS: ACETAMINOPHEN 325 MG TAB PO PRN (19:48)
[2018-06-18] MEDS: ZOLPIDEM 5 MG TAB PO PRN ×2 (00:17→23:41)
[2018-06-18 01:10] VITALS: BP 110/62; PULSE 67; RESP 16
[2018-06-18] MEDS: PANTOPRAZOLE (EC) 40 MG TAB PO SCH (05:50)
[2018-06-18] MEDS: MAGNESIUM HYDROXIDE 30ML CUP PO PRN (05:53)
[2018-06-18 07:39] VITALS: BP 121/58; PULSE 72; RESP 14
[2018-06-18] MEDS: AMLODIPINE 5 MG TAB PO SCH (09:00)
[2018-06-18] MEDS: METHADONE 10 MG TAB PO SCH (10:27)
[2018-06-18] MEDS: CALCIUM CARBONATE 1.25 GM TAB PO SCH ×2 (10:27→20:50)
[2018-06-18] MEDS: CHOLECALCIFEROL 2,000 UNIT CAP PO SCH (10:27)
[2018-06-18] MEDS: SERTRALINE 50 MG TAB PO SCH (10:28)
[2018-06-18] MEDS: APIXABAN 5 MG TABLET PO SCH ×2 (10:28→20:51)
[2018-06-18] MEDS: RIFAXIMIN 550 MG TAB PO SCH ×2 (10:28→20:51)
[2018-06-18] MEDS: DOCUSATE SODIUM 100 MG CAP PO SCH ×2 (10:28→20:50)
[2018-06-18] MEDS: BACLOFEN 10 MG TAB PO SCH ×2 (10:28→20:52)
[2018-06-18] MEDS: hydrOXYzine HCL 10 MG TAB PO SCH ×3 (10:29→21:21)
[2018-06-18] MEDS: METHADONE (1 MG/ML 5 ML PO UD SYG) PO SCH (10:43)
[2018-06-18] MEDS: FLUTICASONE/VILANTEROL 100-25 INH SCH (10:46)
[2018-06-18] MEDS: OXYMETAZOLINE 0.05% 15 ML NAS SPRAY NASAL SCH ×2 (10:47→20:52)
--- NOTE | 2018-06-18 12:25 | PN ---
Date/Time of Note Date/Time of Note DATE: 06/18/18 TIME: 12:24 Assessment/Plan VTE Prophylaxis Risk score (from Ns)>0 risk: 3 SCD applied (from Ns): Yes Pharmacological prophylaxis: apixaban Lines/Catheters IV Catheter Type (from Nrsg): Saline Lock Urinary Cath still in place: No Assessment/Plan Hospital Course SUBJECTIVE: Denies any dyspnea at this time. Denies any chest pain. OBJECTIVE: Physical Exam General: Frail looking, 68 year-old female lying in bed in no apparent distress. HEENT: Normocephalic, atraumatic. Eyes: Anicteric sclerae, conjunctivae clear. ENT: Nasal septum midline, oral mucosa moist. Neck supple, no JVD noticed. Respiratory: Bilaterally diminished breath sounds. No use of accessory muscles of respiration. B/L rales. Cardiovascular: S1, S2 heard. Regular rate and rhythm. Abdomen: Soft, nontender, and nondistended. Bowel sounds positive in all 4 quadrants. Genitourinary: Deferred. Extremities: No cyanosis, no edema. Peripheral pulses palpable. Neurologic: The patient is Skin: Normal skin turgor. No skin rashes. Labs & Vitals per chart ASSESSMENT & PLAN This is a 68-year-old female with past medical history of COPD, chronic respiratory failure dependent on home oxygen, hypertension, pulmonary hypert ension, chronic kidney disease, alcohol abuse, and a remote history of heroin abuse currently on methadone. The patient went to the local hospital on June 02, 2018 because of shortness of breath. The patient was noted to be in significant respiratory failure that necessitated admission to [facility] including ICU stay and noninvasive positive pressure ventilation. The patient also had underlying coagulopathy with an INR of 2.5. The patient also had a WBC of 15.7. The patient was empirically treated for any underlying infectious process. Infectious diseases was involved in the patient's care. The patient also had NSTEMI. The patient was evaluated by cardiology at the transferring facility with the 2D echocardiogram showing preserved left ventricular ejection fraction, but evidence of underlying pulmonary hypertension. The patient was gradually moved out of the intensive care unit once the patient was stable. [place] [facility] [place] for further management and evaluation because of insurance reasons. 1. COPD exacerbation. -Continue bronchodilators IZAIAH and LABA. -S/P tapering dose of steroids. 2. Acute on chronic respiratory failure -Hypoxic and hypercapnic -Status post noninvasive positive pressure ventilation at the transferring facility. -Currently stable. 3. Possible underlying acute bronchitis -S/P empiric cefepime as per ID from the transferring facility. 4. NSTEMI. -Preserved left ventricular ejection fraction -Status post cardiology evaluation at the transferring facility. -Most probably secondary to demand ischemia. -Continue ASA. -Cardiology following. -Not a good candidate for invasive procedures prior to the patient's underlying thrombocytopenia noncompliance. 5. Essential hypertension -Continue antihypertensives. 6. Pulmonary hypertension. -Most probably secondary to chronic hypoxia. -Continue supplemental oxygen. 7. Pulmonary emboli to the medial right middle lobe and inferomedial right lower lobe. -On therapeutic anticoagulation. 8. Transaminitis without hyperbilirubinemia -Known history of hepatitis C and alcoholic liver cirrhosis. -On lactulose and rifaximin. -Gastroenterology following. -Avoid hepatotoxic medications. 9. History of heroin abuse. -Currently on methadone. 10. Coagulopathy. -Most probably secondary to underlying liver cirrhosis. -Monitor for bleeding. 11. Microcytic anemia -Most probably secondary to underlying alcohol abuse. -Monitor H&H closely. 12. Dysphagia. -Aspiration precautions. -S/P ST evaluation. 13. DVT prophylaxis -Factor Xa inhibitors. 14. Debility. -Continue physical therapy. 15. Plan. -The patient is stable to be discharged. -However, the patient lives at home by herself and has a part-time caregiver. -The patient would benefit from a snf facility versus assisted living facility, where she can be supervised 21/09. -Awaiting SNF placement. The patient was seen in collaboration with Dr. Shoemaker. Result Diagram: 06/15/18 0436 06/15/18 0436 Exam/Review of Systems Exam Vitals Vital Signs Date Temp Pulse Resp B/P (MAP) Pulse Ox O2 O2 Flow FiO2 Time Delivery Rate 06/18/18 98.2 72 14 121/58 93 07:39 (79) 06/17/18 Room Air 08:21 Intake and Output 06/17/18 06/17/18 06/18/18 1515:00 23:00 07:00 IntakeIntake Total 480 ml 480 ml 480 ml OutputOutput Total 800 ml 700 ml BalanceBalance -320 ml -220 ml 480 ml Medications Medication Current Medications IV Flush (NS 3 ml) 3 ml PER PROTOCOL IV ; Start 06/04/18 at 00:00 Ondansetron HCl (Zofran Inj) 4 mg Q6H PRN IV NAUSEA/VOMITING; Start 06/04/18 at 00:00 Acetaminophen (Tylenol Tab) 650 mg Q6H PRN PO .PAIN 1-3 OR TEMP Last administered on 06/17/18 19:48; Admin Dose 650 MG; Start 06/04/18 at 00:00 Pantoprazole (Protonix Tab) 40 mg DAILY@06 PO Last administered on 06/18/18 05:50; Admin Dose 40 MG; Start 06/04/18 at 06:00 Amlodipine Besylate (Norvasc) 5 mg DAILY PO Last administered on 06/17/18 08:57; Admin Dose 5 MG; Start 06/04/18 at 09:00 Baclofen (Lioresal) 10 mg BID PO Last administered on 06/18/18 10:28; Admin Dose 10 MG; Start 06/04/18 at 00:30 Hydroxyzine HCl (Atarax) 10 mg TID PO Last administered on 06/18/18 10:29; Admin Dose 10 MG; Start 06/04/18 at 09:00 Fluticasone/ Vilanterol (Breo Ellipta 100-25 Mcg Inh) 1 inh DAILY INH Last administered on 06/18/18 10:46; Admin Dose 1 INH; Start 06/04/18 at 09:00 Miscellaneous Information (Pending [facility] Order For Wound Care) This patient savage... PRN PRN XX WOUND CARE; Start 06/04/18 at 03:00 Rifaximin (Xifaxan) 550 mg BID PO Last administered on 06/18/18 10:28; Admin Dose 550 MG; Start 06/04/18 at 11:30 Sertraline HCl (Zoloft) 50 mg DAILY PO Last administered on 06/18/18 10:28; Admin Dose 50 MG; Start 06/07/18 at 09:00 Simethicone (Mylicon) 160 mg Q6H PRN PO DISTENSION/GAS/BLOATING Last administered on 06/16/18 08:56; Admin Dose 160 MG; Start 06/07/18 at 01:00 Al Hydrox/Mg Hydrox/Simethicone (Mag-Al Plus) 30 ml Q6H PRN PO GASTROINTESTINAL UPSET Last administered on 06/16/18 08:56; Admin Dose 30 ML; Start 06/07/18 at 01:00 Oxymetazoline HCl (Afrin [place]) 2 spray BID NASAL Last administered on 06/18/18 10:47; Admin Dose 2 SPRAY; Start 06/08/18 at 21:00 Apixaban (Eliquis) 10 mg BID PO Last administered on 06/18/18 10:28; Admin Dose 10 MG; Start 06/08/18 at 21:00 Cholecalciferol (Vitamin D) 2,000 unit DAILY PO Last administered on 06/18/18 10:27; Admin Dose 2,000 UNIT; Start 06/10/18 at 09:00 Methadone HCl (Methadone) 60 mg DAILY PO Last administered on 06/18/18 10:27; Admin Dose 60 MG; Start 06/10/18 at 10:30 Methadone HCl (Methadone Liq) 8 mg DAILY PO Last administered on 06/18/18 10: 43; Admin Dose 8 MG; Start 06/10/18 at 10:30 Ipratropium [place] (Atrovent 0.02% (Neb)) 0.5 mg Q2H RESP THERAPY PRN HHN WHEEZING AND SOB; Start 06/10/18 at 21:00 Levalbuterol (Xopenex Neb) 1.25 mg Q2H RESP THERAPY PRN HHN WHEEZING AND SOB; Start 06/10/18 at 21:00 Calcium Carbonate (Oyster Shell Calcium) 1.25 gm BID PO Last administered on 06/18/18 10:27; Admin Dose 1.25 GM; Start 06/11/18 at 13:00 Docusate Sodium (Colace) 100 mg BID PO Last administered on 06/18/18 10:28; Admin Dose 100 MG; Start 06/11/18 at 21:00 Zolpidem Tartrate (Ambien) 5 mg HS PRN PO INSOMNIA Last administered on 00:17; Admin Dose 5 MG; Start 06/14/18 at 22:00 Magnesium Hydroxide (Milk Of Mag) 30 ml Q6H PRN PO CONSTIPATION Last administered on 06/18/18 05:53; Admin Dose 30 ML; Start 06/16/18 at 17:30 ZHANG WARE NP Jun 18, 2018 12:24
[2018-06-18] MEDS: ACETAMINOPHEN 325 MG TAB PO PRN (14:10)
[2018-06-18 19:56] VITALS: BP 106/57; PULSE 76; RESP 16
[2018-06-19 02:26] VITALS: BP 121/62; PULSE 71; RESP 17
[2018-06-19] MEDS: MAGNESIUM HYDROXIDE 30ML CUP PO PRN (05:38)
[2018-06-19] MEDS: PANTOPRAZOLE (EC) 40 MG TAB PO SCH (05:38)
[2018-06-19 07:29] VITALS: BP 116/65; PULSE 71; RESP 16
[2018-06-19] MEDS: RIFAXIMIN 550 MG TAB PO SCH ×2 (08:58→20:31)
[2018-06-19] MEDS: METHADONE 10 MG TAB PO SCH (08:59)
[2018-06-19] MEDS: APIXABAN 5 MG TABLET PO SCH ×2 (08:59→20:30)
[2018-06-19] MEDS: METHADONE (1 MG/ML 5 ML PO UD SYG) PO SCH (08:59)
[2018-06-19] MEDS: OXYMETAZOLINE 0.05% 15 ML NAS SPRAY NASAL SCH ×2 (09:00→20:31)
[2018-06-19] MEDS: FLUTICASONE/VILANTEROL 100-25 INH SCH (09:00)
[2018-06-19] MEDS: hydrOXYzine HCL 10 MG TAB PO SCH ×3 (09:00→20:31)
[2018-06-19] MEDS: BACLOFEN 10 MG TAB PO SCH ×2 (09:00→20:31)
[2018-06-19] MEDS: CHOLECALCIFEROL 2,000 UNIT CAP PO SCH (09:00)
[2018-06-19] MEDS: AMLODIPINE 5 MG TAB PO SCH (09:00)
[2018-06-19] MEDS: DOCUSATE SODIUM 100 MG CAP PO SCH ×2 (09:00→20:30)
[2018-06-19] MEDS: SERTRALINE 50 MG TAB PO SCH (09:00)
[2018-06-19] MEDS: CALCIUM CARBONATE 1.25 GM TAB PO SCH ×2 (09:00→20:30)
--- NOTE | 2018-06-19 13:00 | PN ---
Date/Time of Note Date/Time of Note DATE: 06/19/18 TIME: 13:00 Assessment/Plan VTE Prophylaxis Risk score (from Ns)>0 risk: 3 SCD applied (from Ns): Yes Pharmacological prophylaxis: apixaban Lines/Catheters IV Catheter Type (from Nrsg): Saline Lock Urinary Cath still in place: No Assessment/Plan Hospital Course SUBJECTIVE: Denies any dyspnea at this time. Denies any chest pain. OBJECTIVE: Physical Exam General: Frail looking, 68 year-old female lying in bed in no apparent distress. HEENT: Normocephalic, atraumatic. Eyes: Anicteric sclerae, conjunctivae clear. ENT: Nasal septum midline, oral mucosa moist. Neck supple, no JVD noticed. Respiratory: Bilaterally diminished breath sounds. No use of accessory muscles of respiration. B/L rales. Cardiovascular: S1, S2 heard. Regular rate and rhythm. Abdomen: Soft, nontender, and nondistended. Bowel sounds positive in all 4 quadrants. Genitourinary: Deferred. Extremities: No cyanosis, no edema. Peripheral pulses palpable. Neurologic: The patient is Skin: Normal skin turgor. No skin rashes. Labs & Vitals per chart ASSESSMENT & PLAN This is a 68-year-old female with past medical history of COPD, chronic respiratory failure dependent on home oxygen, hypertension, pulmonary hypert ension, chronic kidney disease, alcohol abuse, and a remote history of heroin abuse currently on methadone. The patient went to the local hospital on June 02, 2018 because of shortness of breath. The patient was noted to be in significant respiratory failure that necessitated admission to [facility] including ICU stay and noninvasive positive pressure ventilation. The patient also had underlying coagulopathy with an INR of 2.5. The patient also had a WBC of 15.7. The patient was empirically treated for any underlying infectious process. Infectious diseases was involved in the patient's care. The patient also had NSTEMI. The patient was evaluated by cardiology at the transferring facility with the 2D echocardiogram showing preserved left ventricular ejection fraction, but evidence of underlying pulmonary hypertension. The patient was gradually moved out of the intensive care unit once the patient was stable. The patient was transferred to [facility] on 06/03/2018 for further management and evaluation because of insurance reasons. 1. COPD exacerbation. -Continue bronchodilators IZAIAH and LABA. -S/P tapering dose of steroids. 2. Acute on chronic respiratory failure -Hypoxic and hypercapnic -Status post noninvasive positive pressure ventilation at the transferring facility. -Currently stable. 3. Possible underlying acute bronchitis -S/P empiric cefepime as per ID from the transferring facility. 4. NSTEMI. -Preserved left ventricular ejection fraction -Status post cardiology evaluation at the transferring facility. -Most probably secondary to demand ischemia. -Continue ASA. -Cardiology following. -Not a good candidate for invasive procedures prior to the patient's underlying thrombocytopenia noncompliance. 5. Essential hypertension -Continue antihypertensives. 6. Pulmonary hypertension. -Most probably secondary to chronic hypoxia. -Continue supplemental oxygen. 7. Pulmonary emboli to the medial right middle lobe and inferomedial right lower lobe. -On therapeutic anticoagulation. 8. Transaminitis without hyperbilirubinemia -Known history of hepatitis C and alcoholic liver cirrhosis. -On lactulose and rifaximin. -Gastroenterology following. -Avoid hepatotoxic medications. 9. History of heroin abuse. -Currently on methadone. 10. Coagulopathy. -Most probably secondary to underlying liver cirrhosis. -Monitor for bleeding. 11. Microcytic anemia -Most probably secondary to underlying alcohol abuse. -Monitor H&H closely. 12. Dysphagia. -Aspiration precautions. -S/P ST evaluation. 13. DVT prophylaxis -Factor Xa inhibitors. 14. Debility. -Continue physical therapy. 15. Plan. -The patient is stable to be discharged. -However, the patient lives at home by herself and has a part-time caregiver. -The patient would benefit from a [place] [facility] [place] facility versus assisted living facility, where she can be supervised 21/09. -Awaiting SNF placement. The patient was seen in collaboration with Dr. Shoemaker. Result Diagram: 06/15/18 0436 06/15/18 0436 Exam/Review of Systems Exam Vitals Vital Signs Date Temp Pulse Resp B/P (MAP) Pulse Ox O2 O2 Flow FiO2 Time Delivery Rate 06/19/18 98.3 71 16 116/65 91 Room Air 07:29 (82) Intake and Output 06/18/18 06/18/18 06/19/18 1515:00 23:00 07:00 IntakeIntake Total 660 ml 520 ml 500 ml OutputOutput Total 400 ml BalanceBalance 660 ml 520 ml 100 ml Medications Medication Current Medications IV Flush (NS 3 ml) 3 ml PER PROTOCOL IV ; Start 06/04/18 at 00:00 Ondansetron HCl (Zofran Inj) 4 mg Q6H PRN IV NAUSEA/VOMITING; Start 06/04/18 at 00:00 Acetaminophen (Tylenol Tab) 650 mg Q6H PRN PO .PAIN 1-3 OR TEMP Last administered on 06/18/18 14:10; Admin Dose 650 MG; Start 06/04/18 at 00:00 Pantoprazole (Protonix Tab) 40 mg DAILY@06 PO Last administered on 06/19/18 05:38; Admin Dose 40 MG; Start 06/04/18 at 06:00 Amlodipine Besylate (Norvasc) 5 mg DAILY PO Last administered on 06/19/18 09:00; Admin Dose 5 MG; Start 06/04/18 at 09:00 Baclofen (Lioresal) 10 mg BID PO Last administered on 06/19/18 09:00; Admin Dose 10 MG; Start 06/04/18 at 00:30 Hydroxyzine HCl (Atarax) 10 mg TID PO Last administered on 06/19/18 09:00; Admin Dose 10 MG; Start 06/04/18 at 09:00 Fluticasone/ Vilanterol (Breo Ellipta 100-25 Mcg Inh) 1 inh DAILY INH Last administered on 06/19/18 09:00; Admin Dose 1 INH; Start 06/04/18 at 09:00 Miscellaneous Information (Pending Santyl Order For Wound Care) This patient savage... PRN PRN XX WOUND CARE; Start 06/04/18 at 03:00 Rifaximin (Xifaxan) 550 mg BID PO Last administered on 06/19/18 08:58; Admin Dose 550 MG; Start 06/04/18 at 11:30 Sertraline HCl (Zoloft) 50 mg DAILY PO Last administered on 06/19/18 09:00; Admin Dose 50 MG; Start 06/07/18 at 09:00 Simethicone (Mylicon) 160 mg Q6H PRN PO DISTENSION/GAS/BLOATING Last administered on 06/16/18 08:56; Admin Dose 160 MG; Start 06/07/18 at 01:00 Al Hydrox/Mg Hydrox/Simethicone (Mag-Al Plus) 30 ml Q6H PRN PO GASTROINTESTINAL UPSET Last administered on 06/16/18 08:56; Admin Dose 30 ML; Start 06/07/18 at 01:00 Oxymetazoline HCl (Afrin [place]) 2 spray BID NASAL Last administered on 06/19/18 09:00; Admin Dose 2 SPRAY; Start 06/08/18 at 21:00 Apixaban (Eliquis) 10 mg BID PO Last administered on 06/19/18 08:59; Admin Dos e 10 MG; Start 06/08/18 at 21:00 Cholecalciferol (Vitamin D) 2,000 unit DAILY PO Last administered on 06/19/18 09:00; Admin Dose 2,000 UNIT; Start 06/10/18 at 09:00 Methadone HCl (Methadone) 60 mg DAILY PO Last administered on 06/19/18 08:59; Admin Dose 60 MG; Start 06/10/18 at 10:30 Methadone HCl (Methadone Liq) 8 mg DAILY PO Last administered on 06/19/18 08:59; Admin Dose 8 MG; Start 06/10/18 at 10:30 Ipratropium [place] (Atrovent 0.02% (Neb)) 0.5 mg Q2H RESP THERAPY PRN HHN WHEEZING AND SOB; Start 06/10/18 at 21:00 Levalbuterol (Xopenex Neb) 1.25 mg Q2H RESP THERAPY PRN HHN WHEEZING AND SOB; Start 06/10/18 at 21:00 Calcium Carbonate (Oyster Shell Calcium) 1.25 gm BID PO Last administered on 06/19/18 09:00; Admin Dose 1.25 GM; Start 06/11/18 at 13:00 Docusate Sodium (Colace) 100 mg BID PO Last administered on 06/19/18 09:00; Admin Dose 100 MG; Start 06/11/18 at 21:00 Zolpidem Tartrate (Ambien) 5 mg HS PRN PO INSOMNIA Last administered on 06/18/18 23:41; Admin Dose 5 MG; Start 06/14/18 at 22:00 Magnesium Hydroxide (Milk Of Mag) 30 ml Q6H PRN PO CONSTIPATION Last admin istered on 06/19/18 05:38; Admin Dose 30 ML; Start 4/18/19 at 17:30 ZHANG WARE NP Jun 19, 2018 13:00
[2018-06-19 14:00] VITALS: BP 108/63; PULSE 72; RESP 18
[2018-06-19 19:27] VITALS: BP 119/60; PULSE 77; RESP 1; RESP 16
[2018-06-20] MEDS: ZOLPIDEM 5 MG TAB PO PRN (00:30)
[2018-06-20 01:49] VITALS: BP 118/66; PULSE 72; RESP 18
[2018-06-20] MEDS: PANTOPRAZOLE (EC) 40 MG TAB PO SCH (06:36)
[2018-06-20 08:20] VITALS: BP 109/59; PULSE 76; RESP 18
[2018-06-20] MEDS: DOCUSATE SODIUM 100 MG CAP PO SCH (09:33)
[2018-06-20] MEDS: AMLODIPINE 5 MG TAB PO SCH (09:36)
[2018-06-20] MEDS: CALCIUM CARBONATE 1.25 GM TAB PO SCH ×2 (09:36→20:19)
[2018-06-20] MEDS: SERTRALINE 50 MG TAB PO SCH (09:37)
[2018-06-20] MEDS: CHOLECALCIFEROL 2,000 UNIT CAP PO SCH (09:37)
[2018-06-20] MEDS: METHADONE 10 MG TAB PO SCH (09:37)
[2018-06-20] MEDS: hydrOXYzine HCL 10 MG TAB PO SCH ×3 (09:37→21:22)
[2018-06-20] MEDS: APIXABAN 5 MG TABLET PO SCH ×2 (09:37→20:19)
[2018-06-20] MEDS: BACLOFEN 10 MG TAB PO SCH ×2 (09:37→21:22)
[2018-06-20] MEDS: METHADONE (1 MG/ML 5 ML PO UD SYG) PO SCH (09:37)
[2018-06-20] MEDS: RIFAXIMIN 550 MG TAB PO SCH ×2 (09:37→21:22)
[2018-06-20] MEDS: OXYMETAZOLINE 0.05% 15 ML NAS SPRAY NASAL SCH ×2 (09:37→20:23)
[2018-06-20] MEDS: FLUTICASONE/VILANTEROL 100-25 INH SCH (09:38)
[2018-06-20 13:24] VITALS: BP 109/59; PULSE 97; RESP 18
--- NOTE | 2018-06-20 14:28 | PN ---
Date/Time of Note Date/Time of Note DATE: 06/20/18 TIME: 14:25 Assessment/Plan VTE Prophylaxis Risk score (from Ns)>0 risk: 2 SCD applied (from Ns): Yes SCD contraindicated: low risk/ambulating Pharmacological prophylaxis: LMWH, apixaban Lines/Catheters IV [facility] Saline Lock Urinary Cath still in place: No Assessment/Plan Hospital Course Hospital course Admitted with concern of sepsis and type II [place]. An x-ray from her outside hospital was concerning for nodule, which led to a CAT scan. The CAT scan showed a pulmonary embolism. Patient has been tolerating anticoagulation and is stable and fit for discharge. Etiology could be immobility however no lower extremity DVT was found on imaging. Recommend patient visit hematology down the line. At this point it will be 6 months of anticoagulation. If Eliquis is covered, patient will go home on this therapy. if not covered may need to switch to Coumadin and discharged to snf or home with Lovenox training. I have updated the patient's son & caregiver, who have not been here once during my rounds, over the phone. Patient has been nonadherent to medical therapy including lactulose due to its side effects. I do not blame her however she has been counseled regarding the risk of coma/encephalopathy. Assessment plan 1. SIRS secondary to #3 Stable improved, Taper off treatment. 2. Ac PE; No lwr ext DVT; related to immobility? cont Eliquis. Outpt hematology workup. 3. TYPE II [place], stable, treat #1/2. No need for cath 4. Nonadherence, counseled 5. Methadone use/chronic pain stable observe 6. Past heroin/ meth? 7. Ftt; PT home health safety, vs SNF on discharge. Updated family previously. 8. Chronic COPD/emphysema? Consider outpatient PFTs 9. Past tobacco 10. Abn LFTs, avoid statin for now. Much improved. Differential: Shock vs passive congestion 11. Dysphagia? Appears stable at present 12. Hepatitis C viremia: No bowen evidence of cirrhosis on ultrasound at this time. 13. Pulmonary hypertension vs cor pulmonale? Acutely due to PE but possible underlying issues due to chronic COPD 14. Chronic respiratory failure on home O2? 15. Abn cxr from [place]? However CT does not show any nodules. Q Gold negative 16. Acute psychosis? Cont reorientation and reassurance. Haldol as needed. Checked ammonia level 17. Dilated CBD, unchanged according to radiology/appears similar to previous imaging and 18. Cirrhosis? 19. Chr liver disease sequelae with ascites/ Portal hypertension? 20. Constipation 21. Compression fracture status T6/7 22. Epistaxis mild, Afrin added 23. PTSD? 24. Nonadherence to therapy 06/10. Nonadherence to pt. Counseling regarding the risk of health challenges. 25. Left toe pain. Possible injury? Obtain x-rays outpatient podiatry may limit activity/weightbearing activity S: 06/06 no distress occasional cough without any hemoptysis. No chest pain fever. 06/07: No distress. Agitated overnight. Presently follows commands no chest pain fever 06/08: Events noted. No fever over distress. 06/09: Refusing laxatives. Risk of coma/encephalopathy discussed. Patient is awake alert oriented to year, no fever or abdominal pain. 06/10: Up in chair eating. Denies any chest pain dyspnea distress. Awake alert oriented to [place]. I discussed the requirements of medications to keep her health stable. Refuse medications and physical therapy today. 06/11: No distress, feels stable. /: No distress 06/20: No pulmonary distress. Eating no fever. States her left toe was injured at some point. O: Vss; sinus rhythm PE No pallor JVD Reg no mrg ctab Bs present nt nd no RRG No edema//Homans; left toe rom stable no erythema or significant tenderness Exam/Review of Systems Exam Vitals Vital Signs Date Temp Pulse Resp B/P (MAP) Pulse Ox O2 O2 Flow FiO2 Time Delivery Rate 06/20/18 99.2 97 18 109/59 90 13:24 (76) 06/19/18 Room Air 18:27 Intake and Output 06/19/18 06/19/18 06/20/18 1515:00 23:00 07:00 IntakeIntake Total 120 ml 240 ml 240 ml OutputOutput Total 700 ml 200 ml BalanceBalance -580 ml 40 ml 240 ml Medications Medication Current Medications IV Flush (NS 3 ml) 3 ml PER PROTOCOL IV ; Start 06/04/18 at 00:00 Ondansetron HCl (Zofran Inj) 4 mg Q6H PRN IV NAUSEA/VOMITING; Start 06/04/18 at 00:00 Acetaminophen (Tylenol Tab) 650 mg Q6H PRN PO .PAIN 1-3 OR TEMP Last administered on 06/18/18 14:10; Admin Dose 650 MG; Start 06/04/18 at 00:00 Pantoprazole (Protonix Tab) 40 mg DAILY@06 PO Last administered on 06/20/18 06:36; Admin Dose 40 MG; Start 06/04/18 at 06:00 Amlodipine Besylate (Norvasc) 5 mg DAILY PO Last administered on 06/20/18 09:36; Admin Dose 5 MG; Start 06/04/18 at 09:00 Baclofen (Lioresal) 10 mg BID PO Last administered on 06/20/18 09:37; Admin Dose 10 MG; Start 06/04/18 at 00:30 Hydroxyzine HCl (Atarax) 10 mg TID PO Last administered on 06/20/18 13:27; Admin Dose 10 MG; Start 06/04/18 at 09:00 Fluticasone/ Vilanterol (Breo Ellipta 100-25 Mcg Inh) 1 inh DAILY INH Last administered on 06/20/18 09:38; Admin Dose 1 INH; Start 06/04/18 at 09:00 Miscellaneous Information (Pending [facility] Order For Wound Care) This patient savage... PRN PRN XX WOUND CARE; Start 06/04/18 at 03:00 Rifaximin (Xifaxan) 550 mg BID PO Last administered on 06/20/18 09:37; Admin Dose 550 MG; Start 06/04/18 at 11:30 Sertraline HCl (Zoloft) 50 mg DAILY PO Last administered on 06/20/18 09:37; Admin Dose 50 MG; Start 06/07/18 at 09:00 Simethicone (Mylicon) 160 mg Q6H PRN PO DISTENSION/GAS/BLOATING Last administered on 06/16/18 08:56; Admin Dose 160 MG; Start 06/07/18 at 01:00 Al Hydrox/Mg Hydrox/Simethicone (Mag-Al Plus) 30 ml Q6H PRN PO GASTROINTESTINAL UPSET Last administered on 06/16/18 08:56; Admin Dose 30 ML; Start 06/07/18 at 01:00 Oxymetazoline HCl (Afrin [place]) 2 spray BID NASAL Last administered on 06/20/18 09:37; Admin Dose 2 SPRAY; Start 06/08/18 at 21:00 Apixaban (Eliquis) 10 mg BID PO Last administered on 06/20/18 09:37; Admin Dose 10 MG; Start 06/08/18 at 21:00 Cholecalciferol (Vitamin D) 2,000 unit DAILY PO Last administered on 06/20/18 09:37; Admin Dose 2,000 UNIT; Start 06/10/18 at 09:00 Methadone HCl (Methadone) 60 mg DAILY PO Last administered on 06/20/18 09:37; Admin Dose 60 MG; Start 06/10/18 at 10:30 Methadone HCl (Methadone Liq) 8 mg DAILY PO Last administered on 06/20/18 09:37; Admin Dose 8 MG; Start 06/10/18 at 10:30 Ipratropium [place] (Atrovent 0.02% (Neb)) 0.5 mg Q2H RESP THERAPY PRN HHN WHEEZING AND SOB; Start 06/10/18 at 21:00 Levalbuterol (Xopenex Neb) 1.25 mg Q2H RESP THERAPY PRN HHN WHEEZING AND SOB; Start 06/10/18 at 21:00 Calcium Carbonate (Oyster Shell Calcium) 1.25 gm BID PO Last administered on 06/20/18 09:36; Admin Dose 1.25 GM; Start 06/11/18 at 13:00 Docusate Sodium (Colace) 100 mg BID PO Last administered on 06/20/18 09:33; Admin Dose 100 MG; Start 06/11/18 at 21:00 Zolpidem Tartrate (Ambien) 5 mg HS PRN PO INSOMNIA Last administered on 06/20/18 00:30; Admin Dose 5 MG; Start 06/14/18 at 22:00 Magnesium Hydroxide (Milk Of Mag) 30 ml Q6H PRN PO CONSTIPATION Last administered on 06/19/18 05:38; Admin Dose 30 ML; Start 06/16/18 at 17:30 RICKIE DLATON MD Jun 20, 2018 14:28
[2018-06-20] MEDS: ACETAMINOPHEN 325 MG TAB PO PRN (19:37)
[2018-06-20] MEDS: LACTOBACILLUS RHAMNOSUS CAP PO SCH (20:19)
[2018-06-20] MEDS ORDERED: ALPRAZOLAM 0.25 MG TAB PO ONE (20:30)
[2018-06-20 20:59] VITALS: BP 129/73; PULSE 96; RESP 18
[2018-06-21 01:50] VITALS: BP 104/59; PULSE 79; RESP 18
[2018-06-21] MEDS: PANTOPRAZOLE (EC) 40 MG TAB PO SCH (06:26)
[2018-06-21 07:24] VITALS: BP 101/51; PULSE 66; RESP 18
[2018-06-21] MEDS: FLUTICASONE/VILANTEROL 100-25 INH SCH ×2 (08:29→12:38)
[2018-06-21] MEDS: METHADONE 10 MG TAB PO SCH (08:30)
[2018-06-21] MEDS: BACLOFEN 10 MG TAB PO SCH ×2 (08:30→20:59)
[2018-06-21] MEDS: METHADONE (1 MG/ML 5 ML PO UD SYG) PO SCH (08:30)
[2018-06-21] MEDS: OXYMETAZOLINE 0.05% 15 ML NAS SPRAY NASAL SCH ×2 (08:30→21:00)
[2018-06-21] MEDS: AMLODIPINE 5 MG TAB PO SCH (08:36)
[2018-06-21] MEDS: hydrOXYzine HCL 10 MG TAB PO SCH ×3 (08:36→20:59)
[2018-06-21] MEDS: SERTRALINE 50 MG TAB PO SCH (08:36)
[2018-06-21] MEDS: RIFAXIMIN 550 MG TAB PO SCH ×2 (08:36→20:59)
[2018-06-21] MEDS: CALCIUM CARBONATE 1.25 GM TAB PO SCH ×2 (08:36→20:59)
[2018-06-21] MEDS: CHOLECALCIFEROL 2,000 UNIT CAP PO SCH (08:36)
[2018-06-21] MEDS: LACTOBACILLUS RHAMNOSUS CAP PO SCH ×2 (08:36→20:59)
[2018-06-21] MEDS: APIXABAN 5 MG TABLET PO SCH ×2 (08:37→20:59)
[2018-06-21] MEDS ORDERED: DOCUSATE SODIUM 100 MG CAP PO SCH (09:00)
[2018-06-21 13:31] VITALS: BP 108/67; PULSE 69; RESP 18
[2018-06-21] MEDS ORDERED: GUAIFENESIN/DM 5ML CUP PO PRN (14:30)
--- NOTE | 2018-06-21 16:22 | PN ---
Date/Time of Note Date/Time of Note DATE: 06/21/18 TIME: 16:20 Assessment/Plan VTE Prophylaxis Risk score (from Nsg)>0 risk: 3 SCD applied (from Nsg): Yes SCD contraindicated: low risk/ambulating Pharmacological prophylaxis: apixaban Lines/Catheters [facility] Saline Lock Urinary Cath still in place: No Assessment/Plan Hospital Course Hospital course Admitted with concern of sepsis and type II [place]. An x-ray from her outside hospital was concerning for nodule, which led to a CAT scan. The CAT scan showed a pulmonary embolism. Patient has been tolerating anticoagulation and is stable and fit for discharge. Etiology could be immobility however no lower extremity DVT was found on imaging. Recommend patient visit hematology down the line. At this point it will be 6 months of anticoagulation. If Eliquis is covered, patient will go home on this therapy. if not covered may need to switch to Coumadin and discharged to snf or home with Lovenox training. I have updated the patient's son & caregiver, who have not been here once during my rounds, over the phone. Patient has been nonadherent to medical therapy including lactulose due to its side effects. I do not blame her however she has been counseled regarding the risk of coma/encephalopathy. Assessment plan 1. SIRS secondary to #3 Stable improved, finished treatment. 2. Ac PE; No lwr ext DVT; related to immobility? cont Eliquis. Outpt hematology workup. 3. TYPE II [place], stable, treat #1/2. No need for cath 4. Nonadherence, counseled 5. Methadone use/chronic pain stable observe 6. Past heroin/ meth? 7. Ftt; PT home health safety, vs SNF on discharge. Updated family previously. 8. Chronic COPD/emphysema? Consider outpatient PFTs 9. Past tobacco 10. Abn LFTs, avoid statin for now. Much improved. Differential: Shock vs passive congestion 11. Dysphagia? Appears stable at present 12. Hepatitis C viremia: No bowen evidence of cirrhosis on ultrasound at this time. 13. Pulmonary hypertension vs cor pulmonale? Acutely due to PE but possible underlying issues due to chronic COPD 14. Chronic respiratory failure on home O2? 15. Abn cxr from [place]? However CT does not show any nodules. Q Gold negative 16. Acute psychosis? Cont reorientation and reassurance. Haldol as needed. Checked ammonia level 17. Dilated CBD, unchanged according to radiology/appears similar to previous imaging and 18. Cirrhosis? 19. Chr liver disease sequelae with ascites/ Portal hypertension? 20. Constipation 21. Compression fracture status T6/7 22. Epistaxis mild, Afrin added 23. PTSD? 24. Nonadherence to therapy 06/10. Nonadherence to pt. Counseling regarding the risk of health challenges. 25. Left toe pain. Possible injury? Obtain x-rays outpatient podiatry may limit activity/weightbearing activity 26. Anxiety, LFTs improved therefore will like to limit benzo diazepam's. Outpatient behavioral health appreciated S: 06/06 no distress occasional cough without any hemoptysis. No chest pain fever. 06/07: No distress. Agitated overnight. Presently follows commands no chest pain fever 06/08: Events noted. No fever over distress. 06/09: Refusing laxatives. Risk of coma/encephalopathy discussed. Patient is awake alert oriented to year, no fever or abdominal pain. 06/10: Up in chair eating. Denies any chest pain dyspnea distress. Awake alert oriented to [place]angel[place]. I discussed the requirements of medications to keep her health stable. Refuse medications and physical therapy today. 06/11: No distress, feels stable. /: No distress 06/20: No pulmonary distress. Eating no fever. States her left toe was injured at some point. 06/21: Cough no fever dyspnea. Anxiety. O: Vss; sinus rhythm PE No pallor JVD Reg no mrg ctab Bs present nt nd no RRG No edema//Homans; left toe rom stable no erythema or significant tenderness Exam/Review of Systems Exam Vitals Vital Signs Date Temp Pulse Resp B/P (MAP) Pulse Ox O2 O2 Flow FiO2 Time Delivery Rate 06/21/18 97.4 69 18 108/67 96 13:31 (81) 06/19/18 Room Air 18:27 Intake and Output 06/20/18 06/20/18 06/21/18 1515:00 23:00 07:00 IntakeIntake Total 840 ml 240 ml OutputOutput Total 400 ml BalanceBalance 440 ml 240 ml Medications Medication Current Medications IV Flush (NS 3 ml) 3 ml PER PROTOCOL IV ; Start 06/04/18 at 00:00 Ondansetron HCl (Zofran Inj) 4 mg Q6H PRN IV NAUSEA/VOMITING; Start 06/04/18 at 00:00 Acetaminophen (Tylenol Tab) 650 mg Q6H PRN PO .PAIN 1-3 OR TEMP Last administered on 06/20/18 19:37; Admin Dose 650 MG; Start 06/04/18 at 00:00 Pantoprazole (Protonix Tab) 40 mg DAILY@06 PO Last administered on 06/21/18 06:26; Admin Dose 40 MG; Start 06/04/18 at 06:00 Amlodipine Besylate (Norvasc) 5 mg DAILY PO Last administered on 06/21/18 08:36; Admin Dose 5 MG; Start 06/04/18 at 09:00 Baclofen (Lioresal) 10 mg BID PO Last administered on 06/21/18 08:30; Admin Dose 10 MG; Start 06/04/18 at 00:30 Hydroxyzine HCl (Atarax) 10 mg TID PO Last administered on 06/21/18 12:38; Admin Dose 10 MG; Start 06/04/18 at 09:00 Fluticasone/ Vilanterol (Breo Ellipta 100-25 Mcg Inh) 1 inh DAILY INH Last administered on 06/21/18 12:38; Admin Dose 1 INH; Start 06/04/18 at 09:00 Miscellaneous Information (Pending [facility] Order For Wound Care) This patient savage... PRN PRN XX WOUND CARE; Start 06/04/18 at 03:00 Rifaximin (Xifaxan) 550 mg BID PO Last administered on 06/21/18 08:36; Admin Dose 550 MG; Start 06/04/18 at 11:30 Sertraline HCl (Zoloft) 50 mg DAILY PO Last administered on 06/21/18 08:36; Admin Dose 50 MG; Start 06/07/18 at 09:00 Simethicone (Mylicon) 160 mg Q6H PRN PO DISTENSION/GAS/BLOATING Last administered on 06/20/18 18:10; Admin Dose 160 MG; Start 06/07/18 at 01:00 Al Hydrox/Mg Hydrox/Simethicone (Mag-Al Plus) 30 ml Q6H PRN PO GASTROINTESTINAL UPSET Last administered on 06/16/18 08:56; Admin Dose 30 ML; Start 06/07/18 at 01:00 Oxymetazoline HCl (Afrin [place]) 2 spray BID NASAL Last administered on 06/20/18 09:37; Admin Dose 2 SPRAY; Start 06/08/18 at 21:00 Cholecalciferol (Vitamin D) 2,000 unit DAILY PO Last administered on 06/21/18 08:36; Admin Dose 2,000 UNIT; Start 06/10/18 at 09:00 Methadone HCl (Methadone) 60 mg DAILY PO Last administered on 06/21/18 08:30; Admin Dose 60 MG; Start 06/10/18 at 10:30 Methadone HCl (Methadone Liq) 8 mg DAILY PO Last administered on 06/21/18 08:30; Admin Dose 8 MG; Start 06/10/18 at 10:30 Ipratropium [place] (Atrovent 0.02% (Neb)) 0.5 mg Q2H RESP THERAPY PRN HHN WHEEZING AND SOB; Start 06/10/18 at 21:00 Levalbuterol (Xopenex Neb) 1.25 mg Q2H RESP THERAPY PRN HHN WHEEZING AND SOB; Start 06/10/18 at 21:00 Calcium Carbonate (Oyster Shell Calcium) 1.25 gm BID PO Last administered on 06/21/18 08:36; Admin Dose 1.25 GM; Start 06/11/18 at 13:00 Magnesium Hydroxide (Milk Of Mag) 30 ml Q6H PRN PO CONSTIPATION Last administered on 06/19/18 05:38; Admin Dose 30 ML; Start 06/16/18 at 17:30 Docusate Sodium (Colace) 100 mg DAILY PO Last administered on 06/21/18 08:36; Admin Dose 100 MG; Start 06/21/18 at 09:00 Lactobacillus Acidophilus/ Rhamnosus (Culturelle) 1 cap BID PO Last administered on 06/21/18 08:36; Admin Dose 1 CAP; Start 06/20/18 at 21:00 Apixaban (Eliquis) 5 mg BID PO ; Start 06/21/18 at 21:00 Guaifenesin/ Dextromethorphan (Robitussin Dm Liquid Cup) 10 ml Q4H PRN PO COUGH; Start 06/21/18 at 14:30 RICKIE DALTON MD Jun 21, 2018 16:22
[2018-06-21 19:58] VITALS: BP 106/58; PULSE 88; RESP 18
[2018-06-21] MEDS: DOCUSATE SODIUM 100 MG CAP PO SCH (22:29)
[2018-06-21] MEDS ORDERED: MAGNESIUM HYDROXIDE 30ML CUP PO PRN (22:30)
[2018-06-22 02:00] VITALS: BP 98/55; PULSE 67; RESP 17
[2018-06-22] MEDS: PANTOPRAZOLE (EC) 40 MG TAB PO SCH (06:14)
[2018-06-22 08:18] VITALS: BP 115/55; PULSE 98; RESP 16
[2018-06-22] MEDS: OXYMETAZOLINE 0.05% 15 ML NAS SPRAY NASAL SCH ×2 (09:00→20:47)
[2018-06-22] MEDS: BACLOFEN 10 MG TAB PO SCH ×2 (09:51→21:45)
[2018-06-22] MEDS: hydrOXYzine HCL 10 MG TAB PO SCH ×3 (09:51→21:45)
[2018-06-22] MEDS: RIFAXIMIN 550 MG TAB PO SCH ×2 (09:51→21:45)
[2018-06-22] MEDS: SERTRALINE 50 MG TAB PO SCH (09:51)
[2018-06-22] MEDS: CALCIUM CARBONATE 1.25 GM TAB PO SCH ×2 (09:51→20:45)
[2018-06-22] MEDS: CHOLECALCIFEROL 2,000 UNIT CAP PO SCH (09:51)
[2018-06-22] MEDS: DOCUSATE SODIUM 100 MG CAP PO SCH ×2 (09:52→20:45)
[2018-06-22] MEDS: APIXABAN 5 MG TABLET PO SCH ×2 (09:52→20:45)
[2018-06-22] MEDS: LACTOBACILLUS RHAMNOSUS CAP PO SCH ×2 (09:52→21:45)
[2018-06-22] MEDS: AMLODIPINE 5 MG TAB PO SCH (10:02)
[2018-06-22] MEDS: METHADONE 10 MG TAB PO SCH (10:03)
[2018-06-22] MEDS: METHADONE (1 MG/ML 5 ML PO UD SYG) PO SCH (10:04)
[2018-06-22] MEDS: FLUTICASONE/VILANTEROL 100-25 INH SCH (10:05)
--- NOTE | 2018-06-22 13:29 | DS ---
Date/Time of Note Date/Time of Note DATE: 06/22/18 TIME: 13:21 Discharge Summary Admission/Discharge Info Admit Date/Time Jun 03, 2018 at 22:06 Discharge Date/Time Patient Condition: Fair Consults Cardiology Podiatry Case management PT Procedures Abdominal ultrasound IMPRESSION: 1. No evidence of cholelithiasis or acute cholecystitis. 2. Dilated common bile duct measuring 8.6 mm. No obvious choledocholithiasis seen by ultrasound. If there is high clinical suspicion for choledocholithiasis recommend MRCP. Note the size of the common bile duct is similar to prior studies. 3. Pancreas not visualized CTA chest IMPRESSION: 1. Positive exam for pulmonary emboli to the medial right middle lobe and inferomedial right lower lobe. 2. COPD/emphysema. 3. Diffuse bilateral upper lobe and superior segment left lower lobe ground- glass opacities. 4. Free fluid in the abdomen. Gas distended transverse colon. Stool distended proximal descending colon. 5. Small hiatal hernia. 6. T5 vertebral plana with old compression fractures involving T6 and T7. Chest CAT scan IMPRESSION: Prominent is present with moderate to prominent bilateral subpleural scarring. Subpleural mild fibrotic changes are also present. Development of multiple compression deformities of the upper thoracic spine which are of unknown chronicity. No lung nodule or mass. Low-dose screening CT is recommended and the in the future for surveillance. Bilateral airways wall thickening is seen which could represent airways inflammation which may be chronic. Atherosclerotic disease is present. . Venous ultrasound bilaterally IMPRESSION: No evidence of deep venous thrombosis within bilateral lower extremities. Small right sided Mars's cyst. XR LEFT FOOT. CLINICAL INDICATION: Pain. Left toe injury. TECHNIQUE: Three views of the left foot were obtained. COMPARISON: No prior studies are available for comparison. FINDINGS: There is a healing impaction fracture of the fourth metatarsal neck. There is an oblique mildly displaced fracture of the medial base of the first proximal phalanx - age indeterminate. I suspect it is chronic. IMPRESSION: 1. Healing impaction fracture of the fourth metatarsal neck. 2. Oblique mildly displaced fracture of the medial base of the first proximal phalanx, probably chronic. XR Chest COMPARISON: CT 06/07/2018; CT CHEST 06/07/2018; DR CHEST 06/04/2018; CR CHEST 02/24/2016; CR CHEST 02/22/2016; CR CHEST 12/10/2015 FINDINGS: Chronic changes of the lung predominantly seen in the upper lungs, unchanged. No discrete focal consolidation. No pneumothorax or pleural effusions. Cardiomediastinal silhouette is unchanged. Atherosclerotic calcifications of the aortic arch. IMPRESSION: No acute cardiopulmonary process. Chronic findings as discussed above. Hx of Present Illness 68-year-old female admitted to either [place] or [facility] through the ER for concern of sepsis pneumonia. transferred here for continuity with her insurance. Hospital Course Hospitalist coverage/Hospital course Admitted with concern of sepsis and type II [place]. An x-ray from her outside hospital was concerning for nodule, which led to a CAT scan. The CAT scan showed a pulmonary embolism. Patient has been tolerating anticoagulation and is stable and fit for discharge. Etiology could be immobility however no lower extremity DVT was found on imaging. Recommend patient visit hematology down the line. At this point it will be 6 months of anticoagulation. If Eliquis is covered, patient will go home on this therapy. if not covered may need to switch to Coumadin and discharged to snf or home with Lovenox training. I have updated the patient's son & caregiver, who have not been here once during my rounds, over the phone. Patient has been nonadherent to medical therapy including lactulose due to its side effects. I do not blame her however she has been counseled regarding the risk of coma/encephalopathy. Addendum still pending placement to SNF due to debility deconditioning. Patient is finished most of her acute therapy. Assessment plan 1. SIRS secondary to #3 Stable improved, finished treatment. 2. Ac PE; No lwr ext DVT; related to immobility? cont Eliquis. Outpt hematology workup. 3. TYPE II [place], stable, treat #1/2. No need for cath 4. Nonadherence, counseled 5. Methadone use/chronic pain stable observe 6. Past heroin/ meth? 7. Ftt; PT/ home health safety, vs SNF on discharge. Updated family previously. 8. Chronic COPD/emphysema? Consider outpatient PFTs 9. Past tobacco 10. Abn LFTs, avoid statin for now. Much improved. Differential: Shock vs passive congestion 11. Dysphagia? Appears stable at present 12. Hepatitis C viremia: No bowen evidence of cirrhosis on ultrasound at this time. 13. Pulmonary hypertension vs cor pulmonale? Acutely due to PE but possible underlying issues due to chronic COPD 14. Chronic respiratory failure on home O2? 15. Abn cxr from [place]? However CT does not show any nodules. Q Gold negative 16. Acute psychosis? Cont reorientation and reassurance. Haldol as needed. Checked ammonia level 17. Dilated CBD, unchanged according to radiology/appears similar to previous imaging and 18. Cirrhosis? 19. Chr liver disease sequelae with ascites/ Portal hypertension? 20. Constipation 21. Compression fracture status T6/7 22. Epistaxis mild, Afrin added 23. PTSD? 24. Nonadherence to therapy 06/10. Counselled regarding the risk/ health challenges. 25. Left toe pain. Possible injury? Negative xr for acute process, possible chronic fracture. outpt podiatry; may limit activity/weightbearing activity 26. Anxiety, LFTs improved therefore will like to limit benzo diazepam's. Outpatient behavioral health appreciated S: 06/06 no distress occasional cough without any hemoptysis. No chest pain fever. 06/07: No distress. Agitated overnight. Presently follows commands no chest pain fever 06/08: Events noted. No fever over distress. 06/09: Refusing laxatives. Risk of coma/encephalopathy discussed. Patient is awake alert oriented to year, no fever or abdominal pain. 06/10: Up in chair eating. Denies any chest pain dyspnea distress. Awake alert oriented to [place]. I discussed the requirements of medications to keep her health stable. Refuse medications and physical therapy today. 06/11: No distress, feels stable. : No distress 06/20: No pulmonary distress. Eating no fever. States her left toe was injured at some point. 06/21: Cough no fever dyspnea. Anxiety. 06/22: No events. Updated chest x-ray no acute process. Potentially having intermittent hypoxia due to chronic COPD and subacute PE. No active symptoms patient to continue present therapy. Recommended she avoid benzodiazepines due to liver disease. Needs alternative forms of therapy for behavioral health/anxiety O: Vss; sinus rhythm PE No pallor/ JVD Reg no mrg ctab Bs present nt nd no RRG No edema//Homans; left toe rom stable no erythema or significant tenderness Home Meds Active Scripts Pantoprazole* (Pantoprazole*) 40 Mg Tablet.dr, 40 MG PO DAILY@06 for 14 Days, #14 Prov:RICKIE DALTON MD 06/12/18 Oxymetazoline Hcl* (Afrin [place]*) 0.05% - 15 Ml [place], 2 SPRAY NASAL BID for 7 Days, #1 SPRAY 2 Refills Prov:RICKIE DALTON MD 06/12/18 Lactulose* (Lactulose*) 20 Gm/30 Ml Solution, 30 GM PO Q8 for 14 Days, #14 1 Refill Pharmacy: Dispensed 2-week supply with 1 refill Prov:RICKIE DALTON MD 06/12/18 Apixaban* (Eliquis*) 5 Mg Tablet, 10 MG PO BID for 30 Days, #60 TAB 10 mg twice daily for 5 days, then 5 mg twice daily Prov:RICKIE DALTON MD 06/12/18 Rifaximin* (Xifaxan*) 550 Mg Tablet, 550 MG PO BID for 14 Days, #30 TAB Prov:RICKIE DALTON MD 06/12/18 Loperamide Hcl* (Imodium*) 2 Mg Capsule, 2 MG PO .AFTER EA LOOSE BM PRN for DIARRHEA, #10 TAB Prov:ADAMS MAK MD 04/30/18 Ondansetron (Ondansetron Odt) 4 Mg Tab.rapdis, 4 MG PO Q6H PRN for NAUSEA AND/OR VOMITING, #10 TAB Prov:ADAMS MAK MD 04/30/18 Methadone Hcl* (Methadone*) 5 Mg/5 Ml Solution, 68 MG PO DAILY for 30 Days, ML Prov:STU ORTEZ 04/14/18 Hydroxyzine Hcl* (Hydroxyzine Hcl*) 10 Mg Tablet, 10 MG PO TID, #20 TAB Prov:CASA RIOJAS MD 01/10/18 Sertraline Hcl* (Sertraline Hcl*) 100 Mg Tablet, 100 MG PO DAILY for 30 Days, TAB Prov:ZHANG WARE NP 02/28/16 Salmeterol Xinaf/Fluticasone* (Advair*) 250-50 Diskus Inhaler, 1 INH INHALATION BID for 30 Days, #1 INHALER Prov:ZHANG WARE NP 02/28/16 Albuterol Sulfate* (Proair HFA*) 8.5 Gm Hfa.aer.ad, 2 PUFF INH Q6 for SHORTNESS OF BREATH for 14 Days, #1 INHALER Prov:ZHANG WARE NP 02/28/16 Reported Medications Cholecalciferol (Vitamin D3) (VITAMIN D-3) 2,000 Unit Capsule, 2000 U PO DAILY for 30 Days 04/30/18 Aspirin* (Aspirin* EC) 81 Mg Tablet.dr, 81 MG PO DAILY for 30 Days, #30 04/30/18 Amlodipine Besylate* (Amlodipine Besylate*) 5 Mg Tablet, 5 MG PO DAILY for 30 Days, #30 04/30/18 Ibuprofen* (Ibuprofen*) 600 Mg Tablet, 600 MG PO Q6H PRN for PAIN AND/OR INFLAMMATION, TAB 04/30/18 Baclofen* (Baclofen*) 10 Mg Tablet, 10 MG PO BID 04/30/18 Docusate Sodium* (Docusate Sodium*) 100 Mg Capsule, 100 MG PO BID, #60 CAP 04/30/18 Calcium Carbonate ([id number]) 500 Mg Tablet, 500 MG PO BID, TAB 04/30/18 Follow-up Plan Appointment primary 1 week GI 2 weeks Hematology 1-2 months Primary Care Provider Erna Pollack Time spent on discharge: > 30 minutes RICKIE DALTON MD Jun 22, 2018 13:29
[2018-06-22] MEDS: ACETAMINOPHEN 325 MG TAB PO PRN (13:50)
[2018-06-22 13:55] VITALS: BP 108/62; PULSE 78; RESP 16
[2018-06-22 20:00] VITALS: BP 127/60; PULSE 86; RESP 18
[2018-06-22] MEDS ORDERED: traMADol 50 MG TAB PO PRN (20:30)
--- NOTE | 2018-06-22 21:16 | CONS ---
Assessment/Plan Assessment/Plan Assessment/Plan (Daily) Left foot closed minimally displaced fracture hallux - chronic Left foot closed 4th metatarsal minimally displaced fracture - chronic with signs of healing edema Post-traumatic arthritis Substance drug abuser HepC CKD COPD exacerbation NSTEMI Plan Discussed with patient X-ray findings and recommend conservative therapy with surgical shoe. Discussed with patient the risk of surgical intervention does not out weigh the benefits. Patient amenable to conservative care. Tramadol for pain control PRN. Recommend to limit weight bearing or partial weight bearing to heel of the left foot. Offload heels with pillows. Consultation Date/Type/Reason Admit Date/Time Jun 03, 2018 at 22:06 Date/Time of Note DATE: 06/22/18 TIME: 21:12 Hx of Present Illness 68-year-old female with history of COPD, hepatitis C, chronic kidney disease and history of substance abuse, admitted to the hospital for COPD exacerbation and NSTEMI, presents to the floor with left foot pain. Approximately 2 months ago patient reports that a cart ran over her foot and sustained an injury. Initial ly she noticed pain and swelling and then it subsided and she has been walking on it. Over time she noticed intermittent dull aches which is relieved when non-weight bearing. Patient denies open lesions to her lower extremities. Rates pain 7/10 and is non-radiating, primarily localized to the big toe area. ROS Neg except for HPI Past Medical History COPD, hepatitis C, chronic kidney disease and history of substance abuse Home Meds Active Scripts Pantoprazole* (Pantoprazole*) 40 Mg Tablet.dr, 40 MG PO DAILY@06 for 14 Days, #14 Prov:RICKIE DALTON MD 06/12/18 Oxymetazoline Hcl* (Afrin Bly*) 0.05% - 15 Ml Bly, 2 SPRAY NASAL BID for 7 Days, #1 SPRAY 2 Refills Prov:RICKIE DALTON MD 06/12/18 Lactulose* (Lactulose*) 20 Gm/30 Ml Solution, 30 GM PO Q8 for 14 Days, #14 1 Refill Pharmacy: Dispensed 2-week supply with 1 refill Prov:RICKIE DALTON MD 06/12/18 Apixaban* (Eliquis*) 5 Mg Tablet, 10 MG PO BID for 30 Days, #60 TAB 10 mg twice daily for 5 days, then 5 mg twice daily Prov:RICKIE DALTON MD 06/12/18 Rifaximin* (Xifaxan*) 550 Mg Tablet, 550 MG PO BID for 14 Days, #30 TAB Prov:RICKIE DALTON MD 06/12/18 Loperamide Hcl* (Imodium*) 2 Mg Capsule, 2 MG PO .AFTER EA LOOSE BM PRN for DIARRHEA, #10 TAB Prov:ADAMS MAK MD 04/30/18 Ondansetron (Ondansetron Odt) 4 Mg Tab.rapdis, 4 MG PO Q6H PRN for NAUSEA AND/OR VOMITING, #10 TAB Prov:ADAMS MAK MD 04/30/18 Methadone Hcl* (Methadone*) 5 Mg/5 Ml Solution, 68 MG PO DAILY for 30 Days, ML Prov:STU ORTEZ 04/14/18 Hydroxyzine Hcl* (Hydroxyzine Hcl*) 10 Mg Tablet, 10 MG PO TID, #20 TAB Prov:CASA RIOJAS MD 01/10/18 Sertraline Hcl* (Sertraline Hcl*) 100 Mg Tablet, 100 MG PO DAILY for 30 Days, TAB Prov:ZHANG WARE NP 02/28/16 Salmeterol Xinaf/Fluticasone* (Advair*) 250-50 Diskus Inhaler, 1 INH INHALATION BID for 30 Days, #1 INHALER Prov:ZHANG WARE NP 02/28/16 Albuterol Sulfate* (Proair HFA*) 8.5 Gm Hfa.aer.ad, 2 PUFF INH Q6 for SHORTNESS OF BREATH for 14 Days, #1 INHALER Prov:ZHANG WARE NP 02/28/16 Reported Medications Cholecalciferol (Vitamin D3) (VITAMIN D-3) 2,000 Unit Capsule, 2000 U PO DAILY for 30 Days 04/30/18 Aspirin* (Aspirin* EC) 81 Mg Tablet.dr, 81 MG PO DAILY for 30 Days, #30 04/30/18 Amlodipine Besylate* (Amlodipine Besylate*) 5 Mg Tablet, 5 MG PO DAILY for 30 Days, #30 04/30/18 Ibuprofen* (Ibuprofen*) 600 Mg Tablet, 600 MG PO Q6H PRN for PAIN AND/OR INFLAMMATION, TAB 04/30/18 Baclofen* (Baclofen*) 10 Mg Tablet, 10 MG PO BID 04/30/18 Docusate Sodium* (Docusate Sodium*) 100 Mg Capsule, 100 MG PO BID, #60 CAP 04/30/18 Calcium Carbonate ([id number]) 500 Mg Tablet, 500 MG PO BID, TAB 04/30/18 Medications Current Medications IV Flush (NS 3 ml) 3 ml PER PROTOCOL IV ; Start 06/04/18 at 00:00 Ondansetron HCl (Zofran Inj) 4 mg Q6H PRN IV NAUSEA/VOMITING; Start 06/04/18 at 00:00 Acetaminophen (Tylenol Tab) 650 mg Q6H PRN PO .PAIN 1-3 OR TEMP Last administered on 06/22/18 13:50; Admin Dose 650 MG; Start 06/04/18 at 00:00 Pantoprazole (Protonix Tab) 40 mg DAILY@06 PO Last administered on 06/22/18 06:14; Admin Dose 40 MG; Start 06/04/18 at 06:00 Amlodipine Besylate (Norvasc) 5 mg DAILY PO Last administered on 06/22/18 10:02; Admin Dose 5 MG; Start 06/04/18 at 09:00 Baclofen (Lioresal) 10 mg BID PO Last administered on 06/22/18 09:51; Admin Dose 10 MG; Start 06/04/18 at 00:30 Hydroxyzine HCl (Atarax) 10 mg TID PO Last administered on 06/22/18 13:44; Admin Dose 10 MG; Start 06/04/18 at 09:00 Fluticasone/ Vilanterol (Breo Ellipta 100-25 Mcg Inh) 1 inh DAILY INH Last administered on 06/22/18 10:05; Admin Dose 1 INH; Start 06/04/18 at 09:00 Miscellaneous Information (Pending Santyl Order For Wound Care) This patient savage... PRN PRN XX WOUND CARE; Start 06/04/18 at 03:00 Rifaximin (Xifaxan) 550 mg BID PO Last administered on 06/22/18 09:51; Admin Dose 550 MG; Start 06/04/18 at 11:30 Sertraline HCl (Zoloft) 50 mg DAILY PO Last administered on 06/22/18 09:51; Admin Dose 50 MG; Start 06/07/18 at 09:00 Simethicone (Mylicon) 160 mg Q6H PRN PO DISTENSION/GAS/BLOATING Last administered on 06/20/18 18:10; Admin Dose 160 MG; Start 06/07/18 at 01:00 Al Hydrox/Mg Hydrox/Simethicone (Mag-Al Plus) 30 ml Q6H PRN PO GASTROINTESTINAL UPSET Last administered on 06/16/18 08:56; Admin Dose 30 ML; Start 06/07/18 at 01:00 Oxymetazoline HCl (Afrin Bly) 2 spray BID NASAL Last administered on 06/20/18 09:37; Admin Dose 2 SPRAY; Start 06/08/18 at 21:00 Cholecalciferol (Vitamin D) 2,000 unit DAILY PO Last administered on 06/22/18 09:51; Admin Dose 2,000 UNIT; Start 06/10/18 at 09:00 Methadone HCl (Methadone) 60 mg DAILY PO Last administered on 06/22/18 10:03; Admin Dose 60 MG; Start 06/10/18 at 10:30 Methadone HCl (Methadone Liq) 8 mg DAILY PO Last administered on 06/22/18 10: 04; Admin Dose 8 MG; Start 06/10/18 at 10:30 Ipratropium [place] (Atrovent 0.02% (Neb)) 0.5 mg Q2H RESP THERAPY PRN HHN WHEEZING AND SOB; Start 06/10/18 at 21:00 Levalbuterol (Xopenex Neb) 1.25 mg Q2H RESP THERAPY PRN HHN WHEEZING AND SOB; Start 06/10/18 at 21:00 Calcium Carbonate (Oyster Shell Calcium) 1.25 gm BID PO Last administered on 06/22/18 20:45; Admin Dose 1.25 GM; Start 06/11/18 at 13:00 Magnesium Hydroxide (Milk Of Mag) 30 ml Q6H PRN PO CONSTIPATION Last administered on 06/19/18 05:38; Admin Dose 30 ML; Start 06/16/18 at 17:30 Lactobacillus Acidophilus/ Rhamnosus (Culturelle) 1 cap BID PO Last administered on 06/22/18 09:52; Admin Dose 1 CAP; Start 06/20/18 at 21:00 Apixaban (Eliquis) 5 mg BID PO Last administered on 06/22/18at 20:45; Admin Dose 5 MG; Start 06/21/18 at 21:00 Guaifenesin/ Dextromethorphan (Robitussin Dm Liquid Cup) 10 ml Q4H PRN PO COUGH; Start 06/21/18 at 14:30 Docusate Sodium (Colace) 100 mg BID PO Last administered on 06/22/18at 20:45; Admin Dose 100 MG; Start 06/21/18 at 22:30 Magnesium Hydroxide (Milk Of Mag) 30 ml DAILY PRN PO CONSTIPATION; Start 06/21/18 at 22:30 Tramadol HCl (Ultram) 50 mg Q6H PRN PO MODERATE PAIN LEVEL 4-6; Start 06/22/18 at 20:30 Allergies: Coded Allergies: Sulfa (Sulfonamide Antibiotics) (Unverified Allergy, Mild, 04/30/18) chlorpromazine HCl (Unverified Allergy, Unknown, 04/30/18) lorazepam (Unverified Allergy, Unknown, 04/30/18) Uncoded Allergies: tape (Allergy, Mild, rash, 02/28/16) Past Surgical History none reported Past Surgical Hx: other Family History Significant Family History: no pertinent family hx Social History Smoking Status: Former smoker Drug Use: other (meth) Exam/Review of Systems Exam Vitals Vital Signs Date Temp Pulse Resp B/P (MAP) Pulse Ox O2 O2 Flow FiO2 Time Delivery Rate 06/22/18 98.5 86 18 127/60 98 Nasal 20:00 (82) Cannula 06/22/18 2.0 20:00 Intake and Output 06/21/18 06/21/18 06/22/18 1515:00 23:00 07:00 IntakeIntake Total 720 ml 1200 ml OutputOutput Total 500 ml BalanceBalance 220 ml 1200 ml Exam DP/PT pulses weakly palpable CFT less than 3 seconds to the digits Protective sensations intact Pain with palpation to the left hallux, no pain with palpation to the plantar metatarsals Muscle strength 5/5 in all compartments of the foot foot X-ray IMPRESSION: 1. Healing impaction fracture of the fourth metatarsal neck. 2. Oblique mildly displaced fracture of the medial base of the first proximal phalanx, probably chronic. Medications Medication Current Medications IV Flush (NS 3 ml) 3 ml PER PROTOCOL IV ; Start 06/04/18 at 00:00 Ondansetron HCl (Zofran Inj) 4 mg Q6H PRN IV NAUSEA/VOMITING; Start 06/04/18 at 00:00 Acetaminophen (Tylenol Tab) 650 mg Q6H PRN PO .PAIN 1-3 OR TEMP Last administered on 06/22/18 13:50; Admin Dose 650 MG; Start 06/04/18 at 00:00 Pantoprazole (Protonix Tab) 40 mg DAILY@06 PO Last administered on 06/22/18 06:14; Admin Dose 40 MG; Start 06/04/18 at 06:00 Amlodipine Besylate (Norvasc) 5 mg DAILY PO Last administered on 06/22/18 10:02; Admin Dose 5 MG; Start 06/04/18 at 09:00 Baclofen (Lioresal) 10 mg BID PO Last administered on 06/22/18 09:51; Admin Dose 10 MG; Start 06/04/18 at 00:30 Hydroxyzine HCl (Atarax) 10 mg TID PO Last administered on 06/22/18 13:44; Admin Dose 10 MG; Start 06/04/18 at 09:00 Fluticasone/ Vilanterol (Breo Ellipta 100-25 Mcg Inh) 1 inh DAILY INH Last administered on 06/22/18 10:05; Admin Dose 1 INH; Start 06/04/18 at 09:00 Miscellaneous Information (Pending [facility] Order For Wound Care) This patient savage... PRN PRN XX WOUND CARE; Start 06/04/18 at 03:00 Rifaximin (Xifaxan) 550 mg BID PO Last administered on 06/22/18 09:51; Admin Dose 550 MG; Start 06/04/18 at 11:30 Sertraline HCl (Zoloft) 50 mg DAILY PO Last administered on 06/22/18 09:51; Admin Dose 50 MG; Start 06/07/18 at 09:00 Simethicone (Mylicon) 160 mg Q6H PRN PO DISTENSION/GAS/BLOATING Last administered on 06/20/18 18:10; Admin Dose 160 MG; Start 06/07/18 at 01:00 Al Hydrox/Mg Hydrox/Simethicone (Mag-Al Plus) 30 ml Q6H PRN PO GASTROINTESTINAL UPSET Last administered on 06/16/18 08:56; Admin Dose 30 ML; Start 06/07/18 at 01:00 Oxymetazoline HCl (Afrin Bly) 2 spray BID NASAL Last administered on 06/20/18 09:37; Admin Dose 2 SPRAY; Start 06/08/18 at 21:00 Cholecalciferol (Vitamin D) 2,000 unit DAILY PO Last administered on 06/22/18 09:51; Admin Dose 2,000 UNIT; Start 06/10/18 at 09:00 Methadone HCl (Methadone) 60 mg DAILY PO Last administered on 06/22/18 10:03; Admin Dose 60 MG; Start 06/10/18 at 10:30 Methadone HCl (Methadone Liq) 8 mg DAILY PO Last administered on 06/22/18 10:04; Admin Dose 8 MG; Start 06/10/18 at 10:30 Ipratropium [place] (Atrovent 0.02% (Neb)) 0.5 mg Q2H RESP THERAPY PRN HHN WHEEZING AND SOB; Start 06/10/18 at 21:00 Levalbuterol (Xopenex Neb) 1.25 mg Q2H RESP THERAPY PRN HHN WHEEZING AND SOB; Start 06/10/18 at 21:00 Calcium Carbonate (Oyster Shell Calcium) 1.25 gm BID PO Last administered on 06/22/18 20:45; Admin Dose 1.25 GM; Start 06/11/18 at 13:00 Magnesium Hydroxide (Milk Of Mag) 30 ml Q6H PRN PO CONSTIPATION Last administered on 06/19/18 05:38; Admin Dose 30 ML; Start 06/16/18 at 17:30 Lactobacillus Acidophilus/ Rhamnosus (Culturelle) 1 cap BID PO Last administered on 06/22/18 09:52; Admin Dose 1 CAP; Start 06/20/18 at 21:00 Apixaban (Eliquis) 5 mg BID PO Last administered on 06/22/18 20:45; Admin Dose 5 MG; Start 06/21/18 at 21:00 Guaifenesin/ Dextromethorphan (Robitussin Dm Liquid Cup) 10 ml Q4H PRN PO COUGH; Start 4/23/19 at 14:30 Docusate Sodium (Colace) 100 mg BID PO Last administered on 06/22/18at 20:45; Admin Dose 100 MG; Start 06/21/18 at 22:30 Magnesium Hydroxide (Milk Of Mag) 30 ml DAILY PRN PO CONSTIPATION; Start 06/21/18 at 22:30 Tramadol HCl (Ultram) 50 mg Q6H PRN PO MODERATE PAIN LEVEL 4-6; Start 06/22/18 at 20:30 LAKESHIA CADE DPM Jun 22, 2018 21:16
[2018-06-23 01:45] VITALS: BP 102/58; PULSE 63; RESP 18
[2018-06-23] MEDS: PANTOPRAZOLE (EC) 40 MG TAB PO SCH (06:14)
[2018-06-23 08:09] VITALS: BP 109/55; PULSE 78; RESP 20
[2018-06-23] MEDS: METHADONE (1 MG/ML 5 ML PO UD SYG) PO SCH (09:23)
[2018-06-23] MEDS: hydrOXYzine HCL 10 MG TAB PO SCH ×2 (09:23→12:56)
[2018-06-23] MEDS: METHADONE 10 MG TAB PO SCH (09:23)
[2018-06-23] MEDS: RIFAXIMIN 550 MG TAB PO SCH (09:24)
[2018-06-23] MEDS: DOCUSATE SODIUM 100 MG CAP PO SCH (09:24)
[2018-06-23] MEDS: BACLOFEN 10 MG TAB PO SCH (09:24)
[2018-06-23] MEDS: CALCIUM CARBONATE 1.25 GM TAB PO SCH (09:24)
[2018-06-23] MEDS: CHOLECALCIFEROL 2,000 UNIT CAP PO SCH (09:24)
[2018-06-23] MEDS: SERTRALINE 50 MG TAB PO SCH (09:24)
[2018-06-23] MEDS: LACTOBACILLUS RHAMNOSUS CAP PO SCH (09:24)
[2018-06-23] MEDS: APIXABAN 5 MG TABLET PO SCH (09:24)
[2018-06-23] MEDS: FLUTICASONE/VILANTEROL 100-25 INH SCH (09:25)
[2018-06-23] MEDS: AMLODIPINE 5 MG TAB PO SCH (09:25)
[2018-06-23] MEDS: OXYMETAZOLINE 0.05% 15 ML NAS SPRAY NASAL SCH (09:25)
[2018-06-23 14:51] VITALS: BP 122/58; PULSE 72; RESP 16
--- NOTE | 2018-06-23 16:54 | DS ---
Date/Time of Note Date/Time of Note DATE: 06/23/18 TIME: 16:50 Discharge Summary Admission/Discharge Info Admit Date/Time Jun 03, 2018 at 22:06 Discharge Date/Time Patient Condition: Stable Hx of Present Illness 68-year-old female admitted to either [facility] or [facility] through the ER for concern of sepsis pneumonia. transferred here for continuity with her i emani. Hospital Course Cardiology Dr Campos GI Podiatry Dr Guzman Case management PT Procedures Abdominal ultrasound IMPRESSION: 1. No evidence of cholelithiasis or acute cholecystitis. 2. Dilated common bile duct measuring 8.6 mm. No obvious choledocholithiasis seen by ultrasound. If there is high clinical suspicion for choledocholithiasis recommend MRCP. Note the size of the common bile duct is similar to prior studies. 3. Pancreas not visualized CTA chest IMPRESSION: 1. Positive exam for pulmonary emboli to the medial right middle lobe and inferomedial right lower lobe. 2. COPD/emphysema. 3. Diffuse bilateral upper lobe and superior segment left lower lobe ground- glass opacities. 4. Free fluid in the abdomen. Gas distended transverse colon. Stool distended proximal descending colon. 5. Small hiatal hernia. 6. T5 vertebral plana with old compression fractures involving T6 and T7. Chest CAT scan IMPRESSION: Prominent is present with moderate to prominent bilateral subpleural scarring. Subpleural mild fibrotic changes are also present. Development of multiple compression deformities of the upper thoracic spine which are of unknown chronicity. No lung nodule or mass. Low-dose screening CT is recommended and the in the future for surveillance. Bilateral airways wall thickening is seen which could represent airways inflammation which may be chronic. Atherosclerotic disease is present. Venous ultrasound bilaterally IMPRESSION: No evidence of deep venous thrombosis within bilateral lower extremities. Small right sided Mars's cyst. XR LEFT FOOT CLINICAL INDICATION: Pain. Left toe injury. TECHNIQUE: Three views of the left foot were obtained. COMPARISON: No prior studies are available for comparison. FINDINGS: There is a healing impaction fracture of the fourth metatarsal neck. There is an oblique mildly displaced fracture of the medial base of the first proximal phalanx - age indeterminate. I suspect it is chronic. IMPRESSION: 1. Healing impaction fracture of the fourth metatarsal neck. 2. Oblique mildly displaced fracture of the medial base of the first proximal phalanx, probably chronic. XR Chest COMPARISON: CT 06/07/2018; CT CHEST 06/07/2018; DR CHEST 06/04/2018; CR CHEST 02/24/2016; CR CHEST 02/22/2016; CR CHEST 12/10/2015 FINDINGS: Chronic changes of the lung predominantly seen in the upper lungs, unchanged. No discrete focal consolidation. No pneumothorax or pleural effusions. Cardiomediastinal silhouette is unchanged. Atherosclerotic calcifications of the aortic arch. IMPRESSION: No acute cardiopulmonary process. Chronic findings as discussed above. Hospitalist coverage/Hospital course Admitted with concern of sepsis and type II ID. An x-ray from her outside hospital was concerning for nodule, which led to a CAT scan. The CAT scan showed a pulmonary embolism. Patient has been tolerating anticoagulation and is stable and fit for discharge. Etiology could be immobility however no lower extremity DVT was found on imaging. Recommend patient visit hematology down the line. At this point it will be 6 months of anticoagulation. If Eliquis is covered, patient will go home on this therapy. if not covered may need to switch to Coumadin and discharged to snf or home with Lovenox training. I have updated the patient's son & caregiver, who have not been here once during my rounds, over the phone. Patient has been nonadherent to medical therapy including lactulose due to its side effects. I do not blame her however she has been counseled regarding the risk of coma/encephalopathy. Addendum still pending placement to SNF due to debility deconditioning. Patient is finished most of her acute therapy. Addendum: Disposition to SNF arranged today. Assessment plan 1. SIRS secondary to #3 Stable improved, finished treatment. 2. Ac PE; No lwr ext DVT; related to immobility? cont Eliquis. Outpt hematology workup. 3. TYPE II ID, stable, treat #1/2. No need for cath 4. Nonadherence, counseled 5. Methadone use/chronic pain stable observe 6. Past heroin/ meth? 7. Ftt; PT/ home health safety, vs SNF on discharge. Updated family previously. 8. Chronic COPD/emphysema? Consider outpatient PFTs 9. Past tobacco 10. Abn LFTs, avoid statin for now. Much improved. Differential: Shock vs passive congestion 11. Dysphagia? Appears stable at present 12. Hepatitis C viremia: No bowen evidence of cirrhosis on ultrasound at this time. 13. Pulmonary hypertension vs cor pulmonale? Acutely due to PE but possible underlying issues due to chronic COPD 14. Chronic respiratory failure on home O2? 15. Abn cxr from [facility]? However CT does not show any nodules. Q Gold negative 16. Acute psychosis? Cont reorientation and reassurance. Haldol as needed. Checked ammonia level 17. Dilated CBD, unchanged according to radiology/appears similar to previous imaging and 18. Cirrhosis? 19. Chr liver disease sequelae with ascites/ Portal hypertension? 20. Constipation 21. Compression fracture status T6/7 22. Epistaxis mild, Afrin added 23. PTSD? 24. Nonadherence to therapy 06/10. Counselled regarding the risk/ health challenges. 25. Left toe pain. Possible injury? Negative xr for acute process, possible chronic fracture; obtained postop shoe, limit activity/weightbearing activity 26. Anxiety, LFTs improved therefore will like to limit benzo diazepam's. Outpatient behavioral health appreciated S: 06/06 no distress occasional cough without any hemoptysis. No chest pain fever. 06/07: No distress. Agitated overnight. Presently follows commands no chest pain fever 06/08: Events noted. No fever over distress. 06/09: Refusing laxatives. Risk of coma/encephalopathy discussed. Patient is awake alert oriented to year, no fever or abdominal pain. 06/10: Up in chair eating. Denies any chest pain dyspnea distress. Awake alert oriented to Dangelo Nellie. I discussed the requirements of medications to keep her health stable. Refuse medications and physical therapy today. 06/11: No distress, feels stable. : No distress 06/20: No pulmonary distress. Eating no fever. States her left toe was injured at some point. 06/21: Cough no fever dyspnea. Anxiety. 06/22: No events. Updated chest x-ray no acute process. Potentially having intermittent hypoxia due to chronic COPD and subacute PE. No active symptoms patient to continue present therapy. Recommended she avoid benzodiazepines due to liver disease. Needs alternative forms of therapy for behavioral health/anxiety 06/23: No events O: Vss; sinus rhythm PE No pallor/ JVD Reg no mrg ctab Bs present nt nd no RRG No edema//Homans; left toe rom stable no erythema or significant tenderness From podiatry: Assessment/Plan (Daily) Left foot closed minimally displaced fracture hallux - chronic Left foot closed 4th metatarsal minimally displaced fracture - chronic with signs of healing edema Plan Discussed with patient X-ray findings and recommend conservative therapy with surgical shoe. Discussed with patient the risk of surgical intervention does not out weigh the benefits. Patient amenable to conservative care. Tramadol for pain control PRN. Recommend to limit weight bearing or partial weight bearing to heel of the left foot. Offload heels with pillows. Home Meds Active Scripts Pantoprazole* (Pantoprazole*) 40 Mg Tablet.dr, 40 MG PO DAILY@06 for 14 Days, #14 Prov:RICKIE DALTON MD 06/12/18 Oxymetazoline Hcl* (Afrin [place]*) 0.05% - [address], 2 SPRAY NASAL BID for 7 Days, #1 SPRAY 2 Refills Prov:RICKIE DALTON MD 06/12/18 Lactulose* (Lactulose*) 20 Gm/30 Ml Solution, 30 GM PO Q8 for 14 Days, #14 1 Refill Pharmacy: Dispensed 2-week supply with 1 refill Prov:RICKEI DALTON MD 06/12/18 Acetaminophen* (Tylenol*) 325 Mg Tablet, 650 MG PO Q6H PRN for .PAIN 1-3 OR TEMP for 7 Days, TAB Prov:RICKIE DALTON MD 06/12/18 Apixaban* (Eliquis*) 5 Mg Tablet, 10 MG PO BID for 30 Days, #60 TAB 10 mg twice daily for 5 days, then 5 mg twice daily Prov:RICKIE DALTON MD 06/12/18 Rifaximin* (Xifaxan*) 550 Mg Tablet, 550 MG PO BID for 14 Days, #30 TAB Prov:RICKIE DALTON MD 06/12/18 Loperamide Hcl* (Imodium*) 2 Mg Capsule, 2 MG PO .AFTER EA LOOSE BM PRN for DIARRHEA, #10 TAB Prov:ADAMS MAK MD 04/30/18 Ondansetron (Ondansetron Odt) 4 Mg Tab.rapdis, 4 MG PO Q6H PRN for NAUSEA AND/OR VOMITING, #10 TAB Prov:ADAMS MAK MD 04/30/18 Methadone Hcl* (Methadone*) 5 Mg/5 Ml Solution, 68 MG PO DAILY for 30 Days, ML Prov:STU ORTEZ 04/14/18 Hydroxyzine Hcl* (Hydroxyzine Hcl*) 10 Mg Tablet, 10 MG PO TID, #20 TAB Prov:CASA RIOJAS MD 01/10/18 Sertraline Hcl* (Sertraline Hcl*) 100 Mg Tablet, 100 MG PO DAILY for 30 Days, TAB Prov:ZHANG WARE NP 02/28/16 Salmeterol Xinaf/Fluticasone* (Advair*) 250-50 Diskus Inhaler, 1 INH INHALATION BID for 30 Days, #1 INHALER Prov:ZHANG WARE NP 02/28/16 Albuterol Sulfate* (Proair HFA*) 8.5 Gm Hfa.aer.ad, 2 PUFF INH Q6 for SHORTNESS OF BREATH for 14 Days, #1 INHALER Prov:ZHANG WARE NP 02/28/16 Reported Medications Cholecalciferol (Vitamin D3) (VITAMIN D-3) 2,000 Unit Capsule, 2000 U PO DAILY for 30 Days 04/30/18 Amlodipine Besylate* (Amlodipine Besylate*) 5 Mg Tablet, 5 MG PO DAILY for 30 Days, #30 04/30/18 Baclofen* (Baclofen*) 10 Mg Tablet, 10 MG PO BID 04/30/18 Docusate Sodium* (Docusate Sodium*) 100 Mg Capsule, 100 MG PO BID, #60 CAP 04/30/18 Calcium Carbonate ([id number]) 500 Mg Tablet, 500 MG PO BID, TAB 04/30/18 Follow-up Plan Appointment primary 1 week GI 2 weeks Hematology 1-2 months Primary Care Provider Erna Pollack Time spent on discharge: > 30 minutes RICKIE DALTON MD Jun 23, 2018 16:53
== END 2018-06-23 16:55 | DRG 190 ==
LOC: UNDOADMIN 20:31 → 6WM 20:31 → 2NE 06-10 22:55
PROVIDERS: ADMIT Internal Medicine; ATTEND Internal Medicine
PROC: 3E0F7GC Introduction of Other Therapeutic Substance into Respiratory Tract, Via Natural or Artificial Opening (ICD-10-PCS; principal; 2018-06-03)
DX: J44.1 Chronic obstructive pulmonary disease with (acute) exacerbation (principal); I26.99 Other pulmonary embolism without acute cor pulmonale; I21.A1 Myocardial infarction type 2; J18.9 Pneumonia, unspecified organism; G93.41 Metabolic encephalopathy; J96.22 Acute and chronic respiratory failure with hypercapnia; J96.21 Acute and chronic respiratory failure with hypoxia; N17.9 Acute kidney failure, unspecified; F11.20 Opioid dependence, uncomplicated; D68.4 Acquired coagulation factor deficiency; F23 Brief psychotic disorder; J44.0 Chronic obstructive pulmonary disease with (acute) lower respiratory infection; B19.20 Unspecified viral hepatitis C without hepatic coma; D69.59 Other secondary thrombocytopenia; D50.9 Iron deficiency anemia, unspecified; F41.9 Anxiety disorder, unspecified; G89.29 Other chronic pain; I27.20 Pulmonary hypertension, unspecified; I12.9 Hypertensive chronic kidney disease with stage 1 through stage 4 chronic kidney disease, or unspecified chronic kidney disease; J20.9 Acute bronchitis, unspecified; K70.30 Alcoholic cirrhosis of liver without ascites; K72.90 Hepatic failure, unspecified without coma; K59.00 Constipation, unspecified; M19.172 Post-traumatic osteoarthritis, left ankle and foot; N18.9 Chronic kidney disease, unspecified; R62.7 Adult failure to thrive; R53.81 Other malaise; R13.10 Dysphagia, unspecified; R04.0 Epistaxis; S92.412A Displaced fracture of proximal phalanx of left great toe, initial encounter for closed fracture; S92.342A Displaced fracture of fourth metatarsal bone, left foot, initial encounter for closed fracture; W22.8XXA Striking against or struck by other objects, initial encounter; Z66 Do not resuscitate; Z87.891 Personal history of nicotine dependence; Z99.81 Dependence on supplemental oxygen; Z68.21 Body mass index [BMI] 21.0-21.9, adult; Z79.01 Long term (current) use of anticoagulants; Z79.82 Long term (current) use of aspirin
CPT/HCPCS: 71045; 71250; 71275; 73620; 76705; 80048; 80053; 80307; 82105; 82140; 82550; 82553; 82607; 82746; 83036; 83735; 84100; 84443; 84484; 85025; 85610; 85730; 86038; 86255; 86480; 86592; 86704; 86706; 86709; 86803; 87081; 87340; 87522; 92526; 92610; 93306; 93970; 94640; 94664; 97110; 97116; 97162; 97530; J0692; J1200; J1630; J1644; J2270; J3475; J7050; J7512; L3260; Q9967

== ENCOUNTER 2018-09-15 00:42 | Inpatient (IN) | payer MEDICARE, OTHER ==
[~2018-09-15] VITALS: Ht 152.4 cm; Wt 43.2 kg
[2018-09-15] VITALS (21 sets, daily range): BP systolic 87–127; BP diastolic 54–86; PULSE 95–221; RESP 21–44; Ht 152.4 cm; Wt 43.2 kg
[~2018-09-15 00:42] MED LIST changes: +ACET325T33 PO; +APIX5TAB PO; -ASPI-817 PO; +BUSP10TA2 PO; +CARV6.2579 PO; +CLON0.5T14 PO; -IBUP-1542 PO; +IPRA3AMP29 INHALATION; +LACT20SO2 PO; +OXYM15SP34 NASAL; +PANT40TA4 PO; +RIFA550T4 PO; +SERT25TA83 PO
[2018-09-15] MEDS ORDERED: CEFEPIME 2GM/50 ML (PMX) 50 ML IVPB STA (01:28)
[2018-09-15] MEDS ORDERED: VANCOMYCIN 1 GM (PMX) 250 ML IVPB ONE (01:30)
[2018-09-15] MEDS ORDERED: SOD CHLORIDE 0.9% IV ONE (01:30)
[2018-09-15] MEDS ORDERED: DEXAMETHASONE 10 MG/ML 1 ML INJ IV ONE (02:30)
--- NOTE | 2018-09-15 03:43 | ERD ---
ER Documentation Chief Complaint Chief Complaint BIB RA for weakness and ALOC HPI Is a 60-year-old female brought in by rescue for weakness and altered level consciousness. Patient is well-known to this. Has a history of COPD. Patient is mildly hypoxic upon arrival and cannot provide any relevant history. ROS All systems reviewed and are negative except as per history of present illness. Medications Home Meds Active Scripts Pantoprazole* (Pantoprazole*) 40 Mg Tablet.dr, 40 MG PO DAILY@06 for 14 Days, #14 Prov:RICKIE DALTON MD 06/12/18 Oxymetazoline Hcl* (Afrin [place]*) 0.05% - 15 Ml [place], 2 SPRAY NASAL BID for 7 Days, #1 SPRAY 2 Refills Prov:RICKIE DALTON MD 06/12/18 Lactulose* (Lactulose*) 20 Gm/30 Ml Solution, 30 GM PO Q8 for 14 Days, #14 1 Refill Pharmacy: Dispensed 2-week supply with 1 refill Prov:RICKIE DALTON MD 06/12/18 Acetaminophen* (Tylenol*) 325 Mg Tablet, 650 MG PO Q6H PRN for .PAIN 1-3 OR TEMP for 7 Days, TAB Prov:RICKIE DALTON MD 06/12/18 Apixaban* (Eliquis*) 5 Mg Tablet, 10 MG PO BID for 30 Days, #60 TAB 10 mg twice daily for 5 days, then 5 mg twice daily Prov:RICKIE DALTON MD 06/12/18 Rifaximin* (Xifaxan*) 550 Mg Tablet, 550 MG PO BID for 14 Days, #30 TAB Prov:RICKIE DALTON MD 06/12/18 Loperamide Hcl* (Imodium*) 2 Mg Capsule, 2 MG PO .AFTER EA LOOSE BM PRN for DIARRHEA, #10 TAB Prov:ADAMS MAK MD 04/30/18 Ondansetron (Ondansetron Odt) 4 Mg Tab.rapdis, 4 MG PO Q6H PRN for NAUSEA AND/OR VOMITING, #10 TAB Prov:ADAMS MAK MD 04/30/18 Methadone Hcl* (Methadone*) 5 Mg/5 Ml Solution, 68 MG PO DAILY for 30 Days, ML Prov:STU ORTEZ 04/14/18 Hydroxyzine Hcl* (Hydroxyzine Hcl*) 10 Mg Tablet, 10 MG PO TID, #20 TAB Prov:CASA RIOJAS MD 01/10/18 Sertraline Hcl* (Sertraline Hcl*) 100 Mg Tablet, 100 MG PO DAILY for 30 Days, TAB Prov:ZHANG WARE NP 02/28/16 Salmeterol Xinaf/Fluticasone* (Advair*) 250-50 Diskus Inhaler, 1 INH INHALATION BID for 30 Days, #1 INHALER Prov:ZHANG WARE NP 02/28/16 Albuterol Sulfate* (Proair HFA*) 8.5 Gm Hfa.aer.ad, 2 PUFF INH Q6 for SHORTNESS OF BREATH for 14 Days, #1 INHALER Prov:ZHANG WARE CLIENT SUPPORT ASSOCIATE 02/28/16 Reported Medications Cholecalciferol (Vitamin D3) (VITAMIN D-3) 2,000 Unit Capsule, 2000 U PO DAILY for 30 Days 04/30/18 Amlodipine Besylate* (Amlodipine Besylate*) 5 Mg Tablet, 5 MG PO DAILY for 30 Days, #30 04/30/18 Baclofen* (Baclofen*) 10 Mg Tablet, 10 MG PO BID 04/30/18 Docusate Sodium* (Docusate Sodium*) 100 Mg Capsule, 100 MG PO BID, #60 CAP 04/30/18 Calcium Carbonate ([id number]) 500 Mg Tablet, 500 MG PO BID, TAB 04/30/18 Allergies Allergies: Coded Allergies: Sulfa (Sulfonamide Antibiotics) (Unverified Allergy, Mild, 04/30/18) chlorpromazine HCl (Unverified Allergy, Unknown, 04/30/18) lorazepam (Unverified Allergy, Unknown, 04/30/18) Uncoded Allergies: tape (Allergy, Mild, rash, 02/28/16) PMhx/Soc History of Surgery: No Anesthesia Reaction: No Hx Neurological Disorder: No Hx Respiratory Disorders: Yes (COPD) Hx Cardiac Disorders: Yes (HTN) Hx Psychiatric Problems: Yes (SCHIZOPHRENIC) Hx Miscellaneous Medical Probl: Yes (COPD,CKD,hep C,liver disease,heroin abuse) Hx Alcohol Use: Yes Hx Substance Use: Yes (HEROIN) Hx Tobacco Use: Yes Smoking Status: Current every day smoker Physical Exam Vitals Vital Signs Date Temp Pulse Resp B/P (MAP) Pulse Ox O2 O2 Flow FiO2 Time Delivery Rate 09/15/18 106 100 100 01:30 09/15/18 98.8 101 40 103/76 77 01:09 (85) Physical Exam Const: No acute distress Head: Atraumatic Eyes: Normal Conjunctiva ENT: Normal External Ears, Nose and Mouth. Neck: Full range of motion. No meningismus. Resp: Clear to auscultation bilaterally Cardio: Regular rate and rhythm, no murmurs Abd: Soft, non tender, non distended. Normal bowel sounds Skin: No petechiae or rashes Back: No midline or flank tenderness Ext: No cyanosis, or edema Neur: Awake and alert Psych: Normal Mood and Affect Results 24 hrs Laboratory Tests Test 09/15/18 01:03 09/15/18 01:26 09/15/18 02:15 09/15/18 02:50 Blood Gas Blood arterial Blood arterial Specimen Source Arterial Blood 09/15/2018 1:50: 09/15/2018 2:10: Date Drawn 34 AM 21 AM Arterial Blood 7.252 7.300 pH (Temp corrected) Arterial Blood 54.8 mmhg 47.6 mmhg pCO2 (Temp correct) Arterial Blood 23.6 mmol/L 22.9 mmol/L HCO3 Arterial Blood -4.2 mmol/L -3.7 mmol/L Base Excess Arterial Blood 99.7 mmHG 99.3 mmHG Oxygen Saturatio n Flip Test ACCEPTAB ACCEPTAB Arterial Blood Right Radial Right Radial Gas Puncture Site Arterial 0.2 % 0.3 % Blood Carboxyhem oglobin Arterial Blood 0.4 % 0.3 % Methemoglobin Oxyhemoglobin 99.1 % 98.7 % Percent Blood Gas 37.0 C 37.0 C Temperature Blood Gas 16.0 16.0 Respiration Rate Blood Gas Actual 45 45 Respiration Rate Blood Gas MASK - BIPAP MASK - BIPAP Modality FiO2 100.0 % 100.0 % Blood Gas 16/07 16/07 IPAP/EPAP Ratio Blood Gas Patricia NEWBY MD Critical Value Read Back Blood Gas [facility] Notified Whom Blood Gas 09/15/2018 1:59: 09/15/2018 2:17: Notified Time 35 AM 52 AM POC Venous 4.2 mmol/L Lactate Arterial Blood 273.5 mmHG pO2 (Temp corrected) Blood Gas A-a O2 391.9 mmHg Differential White Blood Pending Count Red Blood Count Pending Hemoglobin Pending Hematocrit Pending Mean Corpuscular Pending Volume Mean Corpuscular Pending Hemoglobin Mean Corpuscular Pending Hemoglobin Precious nt Red Cell Pending Distribution Width Platelet Count Pending Mean Platelet Pending Volume Current Medications Medications Dose Sig/Hugh Start Time Status Last (Trade) Ordered Route PRN Stop Time Admin Dose Reason Admin Sodium 1,300 ml @ BOLUS X1 09/15/18 DC 09/15/18 Chloride 1,300 mls/hr ONCE IV 01:30 02:02 09/15/18 02:29 Cefepime HCl 50 ml @ ONCE STAT 09/15/18 DC 09/15/18 100 mls/hr IVPB 01:28 02:03 09/15/18 01:57 Vancomycin 250 ml @ ONCE ONCE 09/15/18 DC 09/15/18 HCl 125 mls/hr IVPB 01:30 02:44 09/15/18 03:29 10 mg ONCE ONCE 09/15/18 DC 09/15/18 Dexamethasone IV 02:30 03:25 (Decadron) 09/15/18 02:31 Ondansetron 4 mg ER BRIDGE 09/15/18 HCl (Zofran PRN IV 04:00 Inj) NAUSEA/VOMITI 09/16/18 03:59 NG 650 mg ER BRIDGE 09/15/18 Acetaminophen PRN PO 04:00 (Tylenol .MILD PAIN 09/16/18 03:59 Tab) 1-3 OR TEMP Procedures/MDM Patient's infectious symptoms have not stabilized and the patient is at risk of rapid decompensation. The patient will be admitted for careful hydration, antibiotic therapy, and infectious source control. Severe Sepsis Assessment: Infectious Source: Likely pneumonia End organ damage indicated by: [Lactate > 2.0 mmol/L Acute Resp Failure (sat < 92% w/o oxygen) Severe Sepsis Managment: Blood Cultures X 2 before broad spectrum antibiotics initiated within 3 hours of recognition. Recognized at 1:26 AM 30 ml/kg NS bolus Completed Initial Lactate: 4.2 Repeat Lactate pending Critical Care: Time: 45 minutes, independent of any separately billable procedural time Treatments/Evaluations: Emergent fluid management, while maintaining close respiratory support. Immediate broad spectrum antibiotic therapy. Simultaneous assessment for possible sources in order to direct therapy. Consideration for invasive and chemical support to prevent respiratory or cardiac collapse. Septic Shock Assessment (1 hour post 30 ml/kg fluid bolus): Hypotension (SBP < 90 or 40 mmHg drop, MAP < 65): No Lactic acid > 4.0 no Perfusion Reassessment for Septic Shock: Temp 90.6, pulse 99, respiratory rate 20, blood pressure is 117/77 Heart Exam: Tachycardic Lung Exam: No Crackles Capillary Refill: Delayed Peripheral Pulses: Radially present Skin: Mottled, pale Patient was noted to be hypoxic and resolved with BiPAP Accepting Care Team: Current data and ongoing care discussed. Time: 3:39 AM Primary Provider: Hospitalist Consulting: Deferred to inpatient team Outstanding Data: none Departure Diagnosis: Primary Impression: Sepsis Sepsis type: sepsis due to unspecified organism Qualified Codes: A41.9 - Sepsis, unspecified organism Additional Impression: Respiratory failure Chronicity: unspecified Respiratory failure complication: unspecified whether with hypoxia or hypercapnia Qualified Codes: J96.90 - Respiratory failure, unspecified, unspecified whether with hypoxia or hypercapnia Condition: Serious GERALDO NEWBY Sep 15, 2018 03:43
[2018-09-15] MEDS ORDERED: ONDANSETRON 4 MG INJ IV PRN (04:00)
[2018-09-15] MEDS ORDERED: ACETAMINOPHEN 325 MG TAB PO PRN ×2 (04:00→07:30)
[2018-09-15] MEDS ORDERED: ALBUTEROL/IPRATROPIUM (NEB) 3 ML AMP HHN PRN ×2 (07:30→08:00)
[2018-09-15] MEDS ORDERED: NACL 0.9% 3 ML SYG IV SCH (07:30)
[2018-09-15] MEDS: BACLOFEN 10 MG TAB PO SCH ×2 (09:00→20:23)
[2018-09-15] MEDS ORDERED: APIXABAN 5 MG TABLET PO SCH ×2 (09:00→10:30)
[2018-09-15] MEDS: FLUTICASONE/VILANTEROL 200-25 INH DEVICE INH SCH (09:00)
[2018-09-15] MEDS: CALCIUM CARBONATE 1.25 GM TAB PO SCH ×2 (09:00→20:23)
[2018-09-15] MEDS ORDERED: SERTRALINE 100 MG TAB PO SCH (09:00)
[2018-09-15] MEDS ORDERED: METHADONE (1 MG/ML 5 ML PO UD SYG) PO SCH ×2 (09:00)
[2018-09-15] MEDS: RIFAXIMIN 550 MG TAB PO SCH ×2 (09:00→20:23)
[2018-09-15] MEDS ORDERED: VANCOMYCIN IV PER PHARMACY XX SCH (09:00)
[2018-09-15] MEDS: DOCUSATE SODIUM 100 MG CAP PO SCH ×2 (09:00→20:22)
[2018-09-15] MEDS ORDERED: AMLODIPINE 5 MG TAB PO SCH (09:00)
[2018-09-15] MEDS: BUSPIRONE 10 MG TAB PO SCH ×2 (09:00→20:22)
--- NOTE | 2018-09-15 09:07 | HP ---
Date/Time of Note Date/Time of Note DATE: 09/15/18 TIME: 08:58 Assessment/Plan VTE Prophylaxis Pharmacological prophylaxis: heparin Lines/Catheters IV Catheter Type (from Nrs): Saline Lock Assessment/Plan Assessment/Plan 1. Hypoxic and hypercapnic respiratory failure: Most likely secondary to COPD exacerbation -Supplemental oxygen, bronchodilators, as needed BiPAP -Pulmonary consult 2. NSTEMI -First troponin 0.57. It was 0.407 in May of this year when she was diagnosed with PE -Serial troponin -Cardiology consult -will consider VQ scan 3. Sepsis: Unknown source -Broad-spectrum IV antibiotic -Follow-up culture results 4. Acute renal insufficiency -will hydrate -Renal ultrasound and nephrology consult 5. Elevated transaminases, patient with a known history of hep C liver disease -Monitor -Abdominal imaging if worsening 6. Hypernatremia: Suspect from dehydration -We will hydrate Result Diagram: 09/15/18 0250 09/15/18 0250 Results 24hrs Laboratory Tests Test 09/15/18 01:03 09/15/18 01:26 09/15/18 02:15 09/15/18 02:50 Blood Gas Blood arterial Blood arterial Specimen Source Arterial Blood 09/15/2018 1:50: 09/15/2018 2:10: Date Drawn 34 AM 21 AM Arterial Blood 7.252 *L 7.300 L pH (Temp corrected) Arterial Blood 54.8 H 47.6 H pCO2 (Temp correct) Arterial Blood 23.6 22.9 HCO3 Arterial Blood -4.2 L -3.7 L Base Excess Arterial Blood 99.7 H 99.3 H Oxygen Saturatio n Flip Test ACCEPTAB ACCEPTAB Arterial Blood Right Radial Right Radial Gas Puncture Site Arterial 0.2 0.3 Blood Carboxyhem oglobin Arterial Blood 0.4 0.3 Methemoglobin Oxyhemoglobin 99.1 H 98.7 Percent Blood Gas 37.0 37.0 Temperature Blood Gas 16.0 16.0 Respiration Rate Blood Gas Actual 45 45 Respiration Rate Blood Gas MASK - BIPAP MASK - BIPAP Modality FiO2 100.0 100.0 Blood Gas 16/07 16/07 IPAP/EPAP Ratio Blood Gas Patricia NEWBY MD Critical Value Read Back Blood Gas [facility] Notified Whom Blood Gas 09/15/2018 1:59: 09/15/2018 2:17: Notified Time 35 AM 52 AM POC Venous 4.2 *H Lactate Arterial Blood 273.5 H pO2 (Temp corrected) Blood Gas A-a O2 391.9 H Differential White Blood 19.4 #H Count Red Blood Count 4.10 L Hemoglobin 12.3 Hematocrit 40.4 Mean Corpuscular 98.5 Volume Mean Corpuscular 30.0 Hemoglobin Mean Corpuscular 30.4 L Hemoglobin Precious nt Red Cell 14.7 H Distribution Width Platelet Count 186 Mean Platelet 12.3 H Volume Immature 1.000 H Granulocytes % Neutrophils % 83.0 H Lymphocytes % 8.3 L Monocytes % 7.5 Eosinophils % 0.0 Basophils % 0.2 Nucleated Red 0.0 Blood Cells % Immature 0.200 H Granulocytes # Neutrophils # 16.1 H Lymphocytes # 1.6 Monocytes # 1.5 H Eosinophils # 0.0 Basophils # 0.0 Nucleated Red 0.0 Blood Cells # Sodium Level 150 H Potassium Level 4.0 Chloride Level 114 H Carbon Dioxide 25 Level Anion Gap 11 Blood Urea 72 H Nitrogen Creatinine 2.07 H Est Glomerular 24 L Filtrat Rate mL/min Glucose Level 97 Lactic Acid 4.9 *H Level Calcium Level 8.0 L Total Bilirubin 0.6 Direct Bilirubin 0.00 Indirect 0.6 Bilirubin Aspartate Amino 355 H Transf (AST/SGOT ) Alanine 160 H Aminotransferase (ALT/SGPT) Alkaline 70 Phosphatase Troponin I 0.571 *H Total Protein 6.4 Albumin 3.5 Globulin 2.90 Albumin/Globulin 1.20 Ratio Test 09/15/18 03:05 09/15/18 04:47 Prothrombin Time 16.9 H Prothrombin Time 1.3 Ratio INR 1.36 International Normalized Ratio Activated 25.4 Partial Thrombop last Time Lactic Acid 2.1 *H Level HPI/ROS Admit Date/Time Admit Date/Time Hx of Present Illness Patient is a 68-year-old female with a history of COPD, PE, psych disorder, CKD, hepatitis C liver disease who was brought to the ER for a shortness of breath. She said symptoms been progressively getting worse. 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 She denied any chest pain. Patient was on a BiPAP and as such history was somehow limited. When she presented to the ER, she was hypoxic with oxygen saturation of 77%. Chest x-ray shows chronic lung change. ABG shows a pH of 7.52, PCO2 55. She has been placed on BiPAP. First troponin 0 0.57. It was 0.407 in May of this year. At that time she was diagnosed with PE. Patient also presented with a creatinine of 2 PMH/Family/Social Past Medical History Past Surgical Hx: other (see HPI) Family History Significant Family History: no pertinent family hx Social History Alcohol Use: none Smoking Status: Never smoker Drug Use: none Exam Constitutional: No acute distress Head: normocephalic, atraumatic Eyes: EOMI, PERRL Respiratory: no distress Cardiovascular: regular rate and rhythm Gastrointestinal: soft Extremities: normal pulses Medications Current Medications IV Flush (NS 3 ml) 3 ml PER PROTOCOL IV ; Start 09/15/18 at 07:30 Ondansetron HCl (Zofran Inj) 4 mg Q6H PRN IV NAUSEA/VOMITING; Start 09/15/18 at 07:30 Acetaminophen (Tylenol Tab) 650 mg Q6H PRN PO .PAIN 1-3 OR TEMP; Start 09/15/18 at 07:30 Amlodipine Besylate (Norvasc) 5 mg DAILY PO ; Start 09/15/18 at 09:00 Apixaban (Eliquis) 10 mg BID PO ; Start 09/15/18 at 09:00; Status UNV Baclofen (Lioresal) 10 mg BID PO ; Start 09/15/18 at 09:00 Buspirone HCl (Buspar) 10 mg BID PO ; Start 09/15/18 at 09:00 Calcium Carbonate ([place] Calcium) 1.25 gm BID PO ; Start 09/15/18 at 09:00 Carvedilol (Coreg) 6.25 mg BID PO ; Start 09/15/18 at 09:00 Clonazepam (Klonopin) 0.5 mg DAILY PRN PO ANXIETY; Start 09/15/18 at 07:30 Docusate Sodium (Colace) 100 mg BID PO ; Start 09/15/18 at 09:00 Methadone HCl (Methadone Liq) 68 mg DAILY PO ; Start 09/15/18 at 09:00; Status UNV Pantoprazole (Protonix Tab) 40 mg DAILY@06 PO ; Start 09/16/18 at 06:00 Rifaximin (Xifaxan) 550 mg BID PO ; Start 09/15/18 at 09:00 Sertraline HCl (Zoloft) 100 mg DAILY PO ; Start 09/15/18 at 09:00 Fluticasone/ Vilanterol (Breo Ellipta 200-25 Mcg Inh) 1 inh DAILY INH ; Start 09/15/18 at 09:00 Methylprednisolone Sodium Succinate (Solu-Medrol) 60 mg DAILY IV ; Start 09/15/18 at 09:00 Albuterol/ Ipratropium (Duoneb) 3 ml Q3H RESP THERAPY PRN HHN WHEEZING AND SOB; Start 09/15/18 at 08:00 Coded Allergies: Sulfa (Sulfonamide Antibiotics) (Verified Allergy, Mild, 09/17/18) chlorpromazine HCl (Verified Allergy, Unknown, 09/17/18) lorazepam (Verified Allergy, Unknown, 09/17/18) Uncoded Allergies: tape (Allergy, Mild, rash, 02/28/16) Past Surgical History Past Surgical Hx: other Family History Significant Family History: no pertinent family hx Social History Smoking Status: Current every day smoker Exam/Review of Systems Vital Signs Vitals Vital Signs Date Temp Pulse Resp B/P (MAP) Pulse Ox O2 O2 Flow FiO2 Time Delivery Rate 09/15/18 97.5 119 35 130/99 100 BIPAP 08:19 (109) 09/15/18 50 04:38 GERALDO VARGAS MD Sep 15, 2018 09:07
[2018-09-15] MEDS ORDERED: VANCOMYCIN 1 GM 250 ML IVPB ONE (10:00)
--- NOTE | 2018-09-15 10:05 | PN ---
Date/Time of Note Date/Time of Note DATE: 09/15/18 TIME: 10:02 Assessment/Plan VTE Prophylaxis SCD applied (from Nsg): No SCD contraindicated: other Pharmacological prophylaxis: apixaban Lines/Catheters IV Catheter Type (from Nrs): Saline Lock Assessment/Plan Hospital Course S: Patient still on BiPAP, stable leukocytosis and elevated lactic acid. Waiting to be seen by pulmonary and cardiology teams. O: VS- see below PE: Gen: Lying in bed, opens eyes presently on BiPAP Head: Atraumatic Eyes: Normal Conjunctiva ENT: Normal External Ears, Nose and Mouth. Neck: Full range of motion. No meningismus. Resp: Clear to auscultation bilaterally Cardio: Regular rate and rhythm, no murmurs Abd: Soft, non tender, non distended. Normal bowel sounds Ext: No bilateral lower extremity edema Neuro: No focal deficits Assessment/Plan: 68-year-old female history COPD, PE May 2018, CKD, who presents with: 1. Hypoxic and hypercapnic respiratory failure: Most likely secondary to COPD exacerbation, with possible pneumonia given the chest x-ray findings -For now continue supplemental oxygen, bronchodilators, as needed BiPAP -DuoNebs as needed, follow recommend patients from pulmonary consult 2. NSTEMI-First troponin 0.57. It was 0.407 in May of this year when she was diagnosed with PE, at that time she was diagnosed with a type II event. -Monitor serial troponin -Follow-up recommendations from cardiology consult -will consider VQ scan, but for now apparently she was on Eliquis as an outpatient and we will restart that cautiously now given the history of PE diagnosed in May 2018 3. Sepsis: Unknown source-although pneumonia is high on the differential. Also waiting for UA results. Again lactic acid is high. -Continue broad-spectrum IV antibiotic -Follow-up culture results -Trend lactic acid continue IV fluids, Tylenol PRN pain and fevers 4. Acute renal insufficiency: Likely prerenal as her creatinine is 2.07. Back in May her creatinine was normal -will hydrate, with D5 IV fluids given the hypernatremia -Renal ultrasound and consider nephrology consult if does not improve 5. Elevated transaminases: patient with a known history of hep C liver disease -Monitor -Abdominal imaging if worsening 6. Hypernatremia: Suspect from dehydration -Again, we will hydrate with D5 W IV fluids, monitor basic metabolic panel the a.m. Critical care time spent in patient care today equals 50 minutes. Result Diagram: 09/15/18 0250 09/15/18 0250 Results 24hrs Laboratory Tests Test 09/15/18 01:03 09/15/18 01:26 09/15/18 02:15 09/15/18 02:50 Blood Gas Blood arterial Blood arterial Specimen Source Arterial Blood 09/15/2018 1:50: 09/15/2018 2:10: Date Drawn 34 AM 21 AM Arterial Blood 7.252 *L 7.300 L pH (Temp corrected) Arterial Blood 54.8 H 47.6 H pCO2 (Temp correct) Arterial Blood 23.6 22.9 HCO3 Arterial Blood -4.2 L -3.7 L Base Excess Arterial Blood 99.7 H 99.3 H Oxygen Saturatio n Flip Test ACCEPTAB ACCEPTAB Arterial Blood Right Radial Right Radial Gas Puncture Site Arterial 0.2 0.3 Blood Carboxyhem oglobin Arterial Blood 0.4 0.3 Methemoglobin Oxyhemoglobin 99.1 H 98.7 Percent Blood Gas 37.0 37.0 Temperature Blood Gas 16.0 16.0 Respiration Rate Blood Gas Actual 45 45 Respiration Rate Blood Gas MASK - BIPAP MASK - BIPAP Modality FiO2 100.0 100.0 Blood Gas 16/07 16/07 IPAP/EPAP Ratio Blood Gas Patricia NEWBY MD Critical Value Read Back Blood Gas [facility] Notified Whom Blood Gas 09/15/2018 1:59: 09/15/2018 2:17: Notified Time 35 AM 52 AM POC Venous 4.2 *H Lactate Arterial Blood 273.5 H pO2 (Temp corrected) Blood Gas A-a O2 391.9 H Differential White Blood 19.4 #H Count Red Blood Count 4.10 L Hemoglobin 12.3 Hematocrit 40.4 Mean Corpuscular 98.5 Volume Mean Corpuscular 30.0 Hemoglobin Mean Corpuscular 30.4 L Hemoglobin Precious nt Red Cell 14.7 H Distribution Width Platelet Count 186 Mean Platelet 12.3 H Volume Immature 1.000 H Granulocytes % Neutrophils % 83.0 H Lymphocytes % 8.3 L Monocytes % 7.5 Eosinophils % 0.0 Basophils % 0.2 Nucleated Red 0.0 Blood Cells % Immature 0.200 H Granulocytes # Neutrophils # 16.1 H Lymphocytes # 1.6 Monocytes # 1.5 H Eosinophils # 0.0 Basophils # 0.0 Nucleated Red 0.0 Blood Cells # Sodium Level 150 H Potassium Level 4.0 Chloride Level 114 H Carbon Dioxide 25 Level Anion Gap 11 Blood Urea 72 H Nitrogen Creatinine 2.07 H Est Glomerular 24 L Filtrat Rate mL/min Glucose Level 97 Lactic Acid 4.9 *H Level Calcium Level 8.0 L Total Bilirubin 0.6 Direct Bilirubin 0.00 Indirect 0.6 Bilirubin Aspartate Amino 355 H Transf (AST/SGOT ) Alanine 160 H Aminotransferase (ALT/SGPT) Alkaline 70 Phosphatase Troponin I 0.571 *H Total Protein 6.4 Albumin 3.5 Globulin 2.90 Albumin/Globulin 1.20 Ratio Test 09/15/18 03:05 09/15/18 04:47 09/15/18 08:06 Prothrombin Time 16.9 H Prothrombin Time 1.3 Ratio INR 1.36 International Normalized Ratio Activated 25.4 Partial Thrombop last Time Lactic Acid 2.1 *H Level Creatine Kinase 57482 H Creatine Kinase 0.9 Index Creatinine 130.00 H Kinase MB (Mass) Troponin I 0.359 *H Exam/Review of Systems Exam Vitals Vital Signs Date Temp Pulse Resp B/P (MAP) Pulse Ox O2 O2 Flow FiO2 Time Delivery Rate 09/15/18 118 09:00 09/15/18 97.5 35 130/99 100 BIPAP 08:19 (109) 09/15/18 50 04:38 Results Results 24hrs Laboratory Tests Test 09/15/18 01:03 09/15/18 01:26 09/15/18 02:15 09/15/18 02:50 Blood Gas Blood arterial Blood arterial Specimen Source Arterial Blood 09/15/2018 1:50: 09/15/2018 2:10: Date Drawn 34 AM 21 AM Arterial Blood 7.252 *L 7.300 L pH (Temp corrected) Arterial Blood 54.8 H 47.6 H pCO2 (Temp correct) Arterial Blood 23.6 22.9 HCO3 Arterial Blood -4.2 L -3.7 L Base Excess Arterial Blood 99.7 H 99.3 H Oxygen Saturatio n Flip Test ACCEPTAB ACCEPTAB Arterial Blood Right Radial Right Radial Gas Puncture Site Arterial 0.2 0.3 Blood Carboxyhem oglobin Arterial Blood 0.4 0.3 Methemoglobin Oxyhemoglobin 99.1 H 98.7 Percent Blood Gas 37.0 37.0 Temperature Blood Gas 16.0 16.0 Respiration Rate Blood Gas Actual 45 45 Respiration Rate Blood Gas MASK - BIPAP MASK - BIPAP Modality FiO2 100.0 100.0 Blood Gas 16/07 16/07 IPAP/EPAP Ratio Blood Gas Patricia NEWBY MD Critical Value Read Back Blood Gas [facility] Notified Whom Blood Gas 09/15/2018 1:59: 09/15/2018 2:17: Notified Time 35 AM 52 AM POC Venous 4.2 *H Lactate Arterial Blood 273.5 H pO2 (Temp corrected) Blood Gas A-a O2 391.9 H Differential White Blood 19.4 #H Count Red Blood Count 4.10 L Hemoglobin 12.3 Hematocrit 40.4 Mean Corpuscular 98.5 Volume Mean Corpuscular 30.0 Hemoglobin Mean Corpuscular 30.4 L Hemoglobin Precious nt Red Cell 14.7 H Distribution Width Platelet Count 186 Mean Platelet 12.3 H Volume Immature 1.000 H Granulocytes % Neutrophils % 83.0 H Lymphocytes % 8.3 L Monocytes % 7.5 Eosinophils % 0.0 Basophils % 0.2 Nucleated Red 0.0 Blood Cells % Immature 0.200 H Granulocytes # Neutrophils # 16.1 H Lymphocytes # 1.6 Monocytes # 1.5 H Eosinophils # 0.0 Basophils # 0.0 Nucleated Red 0.0 Blood Cells # Sodium Level 150 H Potassium Level 4.0 Chloride Level 114 H Carbon Dioxide 25 Level Anion Gap 11 Blood Urea 72 H Nitrogen Creatinine 2.07 H Est Glomerular 24 L Filtrat Rate mL/min Glucose Level 97 Lactic Acid 4.9 *H Level Calcium Level 8.0 L Total Bilirubin 0.6 Direct Bilirubin 0.00 Indirect 0.6 Bilirubin Aspartate Amino 355 H Transf (AST/SGOT ) Alanine 160 H Aminotransferase (ALT/SGPT) Alkaline 70 Phosphatase Troponin I 0.571 *H Total Protein 6.4 Albumin 3.5 Globulin 2.90 Albumin/Globulin 1.20 Ratio Test 09/15/18 03:05 09/15/18 04:47 09/15/18 08:06 Prothrombin Time 16.9 H Prothrombin Time 1.3 Ratio INR 1.36 International Normalized Ratio Activated 25.4 Partial Thrombop last Time Lactic Acid 2.1 *H Level Creatine Kinase 61693 H Creatine Kinase 0.9 Index Creatinine 130.00 H Kinase MB (Mass) Troponin I 0.359 *H Medications Medication Current Medications IV Flush (NS 3 ml) 3 ml PER PROTOCOL IV ; Start 09/15/18 at 07:30 Ondansetron HCl (Zofran Inj) 4 mg Q6H PRN IV NAUSEA/VOMITING; Start 09/15/18 at 07:30 Acetaminophen (Tylenol Tab) 650 mg Q6H PRN PO .PAIN 1-3 OR TEMP; Start 09/15/18 at 07:30 Amlodipine Besylate (Norvasc) 5 mg DAILY PO ; Start 09/15/18 at 09:00 Apixaban (Eliquis) 10 mg BID PO ; Start 09/15/18 at 09:00; Status UNV Baclofen (Lioresal) 10 mg BID PO ; Start 09/15/18 at 09:00 Buspirone HCl (Buspar) 10 mg BID PO ; Start 09/15/18 at 09:00 Calcium Carbonate (Oyster Shell Calcium) 1.25 gm BID PO ; Start 09/15/18 at 09:00 Carvedilol (Coreg) 6.25 mg BID PO ; Start 09/15/18 at 09:00 Clonazepam (Klonopin) 0.5 mg DAILY PRN PO ANXIETY; Start 09/15/18 at 07:30 Docusate Sodium (Colace) 100 mg BID PO ; Start 09/15/18 at 09:00 Methadone HCl (Methadone Liq) 68 mg DAILY PO ; Start 09/15/18 at 09:00; Status UNV Pantoprazole (Protonix Tab) 40 mg DAILY@06 PO ; Start 09/16/18 at 06:00 Rifaximin (Xifaxan) 550 mg BID PO ; Start 09/15/18 at 09:00 Sertraline HCl (Zoloft) 100 mg DAILY PO ; Start 09/15/18 at 09:00 Fluticasone/ Vilanterol (Breo Ellipta 200-25 Mcg Inh) 1 inh DAILY INH ; Start 09/15/18 at 09:00 Methylprednisolone Sodium Succinate (Solu-Medrol) 60 mg DAILY IV ; Start 09/15/18 at 09:00 Albuterol/ Ipratropium (Duoneb) 3 ml Q3H RESP THERAPY PRN HHN WHEEZING AND SOB; Start 09/15/18 at 08:00 Vancomycin HCl (Vanco Iv Per Pharmacy) VANCOMYCIN PER PHARMACY PER PROTOCOL XX ; Start 09/15/18 at 09:00 Piperacillin Sod/ Tazobactam Sod 100 ml @ 200 mls/hr Q8H IVPB ; Start 09/15/18 at 09:00 Dextrose/Sodium Chloride 1,000 ml @ 100 mls/hr Q10H IV ; Start 09/15/18 at 09:30 Vancomycin HCl 250 ml @ 125 mls/hr LOADING DOSE ONCE IVPB ; Start 09/15/18 at 10:00; Stop 09/15/18 at 11:59 STU ORTEZ Sep 15, 2018 10:05
[2018-09-15] MEDS: DEXTROSE 5%-0.225% NACL 1,000 ML IV SCH ×2 (10:49→21:24)
[2018-09-15] MEDS: METHYLPREDNISOLONE 125 MG INJ IV SCH (10:50)
[2018-09-15] MEDS: PIPER-TAZO 3.375 GM IV (PMX) 100 ML IVPB SCH ×2 (10:50→18:48)
[2018-09-15] MEDS ORDERED: ALBUTEROL HFA 8 GM INHALER INH SCH (12:00)
--- NOTE | 2018-09-15 12:19 | CONS ---
Assessment/Plan Assessment/Plan Hospital Course (Demo Recall) Acute respiratory failure: Currently being treated for COPD exacerbation but it is possible that she has not been compliant with her Eliquis and presents again with a PE (renal failure, cool extremities, clear lungs are suggestive of right heart failure). Regardless she will be on anticoagulation NSTEMI: trops 0.5 and trended down. Type II vs from PE as above History of PE: diagnosed 05/2018. ?Recurrence COPD with acute exacerbation Acute renal failure Transaminitis Pulm HTN: PAP 60s 06/17 Hep C and alcohol cirrhosis heroin use -Eliquis 2.5mg BID until renal function improves as her weight is <60kg -no ASA -no statin -COPD management per pulm -repeat echo Consultation Date/Type/Reason Admit Date/Time Date of Consultation: Sep 15, 2018 Type of Consult Cardiology Reason for Consultation NSTEMI Requesting Provider: GERALDO VARGAS MD Date/Time of Note DATE: 09/15/18 TIME: 12:08 Hx of Present Illness 68 yo F with a h/o PE diagnosed 05/2018 and on Eliquis, hep C and alcohol cirrhosis, severe COPD, heroin use, who was admitted due to altered mentation and respiratory distress. She was placed on BiPAP and treated for COPD. She also has renal failure with Cr 2, NSTEMI with trop 0.5 and trended down, mild transaminitis. She remains on BiPAP and history is difficult to obtain but she denies chest pain and notes that her dyspnea has improved. Of note she had a similar presentation 06/17 at [facility] where she had renal failure, severe transaminitis in the 6000s, respiratory failure, NSTEMI (trop 2). She was stabilized and transferred here where she was discovered to have a PE after a suspicions echo and confirmed by CTA. Unclear if she has been compliant wit her Eliquis. She has a caregiver per report limited but per HPI Past Medical History per hPI Home Meds Active Scripts Pantoprazole* (Pantoprazole*) 40 Mg Tablet., 40 MG PO DAILY@06 for 14 Days, #14 Prov:RICKIE DALTON MD 06/12/18 Apixaban* (Eliquis*) 5 Mg Tablet, 10 MG PO BID for 30 Days, #60 TAB 10 mg twice daily for 5 days, then 5 mg twice daily Prov:RICKIE DALTON MD 06/12/18 Methadone Hcl* (Methadone*) 5 Mg/5 Ml Solution, 68 MG PO DAILY for 30 Days, ML Prov:STU ORTEZ 04/14/18 Salmeterol Xinaf/Fluticasone* (Advair*) 250-50 Diskus Inhaler, 1 INH INHALATION BID for 30 Days, #1 INHALER Prov:ZHANG WARE NP 02/28/16 Albuterol Sulfate* (Proair HFA*) 8.5 Gm Hfa.aer.ad, 2 PUFF INH Q6 for SHORTNESS OF BREATH for 14 Days, #1 INHALER Prov:ZHANG WARE NP 02/28/16 Reported Medications Sertraline Hcl* (Sertraline Hcl*) 25 Mg Tablet, 25 MG PO DAILY, #30 TAB 09/15/18 Buspirone Hcl* (Buspirone Hcl*) 10 Mg Tab, 10 MG PO BID, TAB 09/15/18 Clonazepam* (Clonazepam*) 0.5 Mg Tablet, 0.5 MG PO DAILY PRN for ANXIETY, TAB 09/15/18 Ipratropium-Albuterol (Ipratropium-Albuterol) 0.5-3 Mg/3 Ml Ampul.neb, 3 ML INHALATION Q6 PRN for WHEEZING AND SOB, #30 VIAL 09/15/18 Carvedilol* (Carvedilol*) 6.25 Mg Tablet, 6.25 MG PO BID, #60 TAB 09/15/18 Cholecalciferol (Vitamin D3) (VITAMIN D-3) 2,000 Unit Capsule, 2000 U PO DAILY for 30 Days 04/30/18 Amlodipine Besylate* (Amlodipine Besylate*) 5 Mg Tablet, 5 MG PO DAILY for 30 Days, #30 04/30/18 Baclofen* (Baclofen*) 10 Mg Tablet, 10 MG PO BID 04/30/18 Calcium Carbonate ([id number]) 500 Mg Tablet, 500 MG PO BID, TAB 04/30/18 Discontinued Reported Medications Docusate Sodium* (Docusate Sodium*) 100 Mg Capsule, 100 MG PO BID, #60 CAP 04/30/18 Discontinued Scripts Oxymetazoline Hcl* (Afrin Nelson*) 0.05% - 15 Ml Nelson, 2 SPRAY NASAL BID for 7 Days, #1 SPRAY 2 Refills Prov:RICKIE DALTON MD 06/12/18 Lactulose* (Lactulose*) 20 Gm/30 Ml Solution, 30 GM PO Q8 for 14 Days, #14 1 Refill Pharmacy: Dispensed 2-week supply with 1 refill Prov:RICKIE DALTON MD 06/12/18 Acetaminophen* (Tylenol*) 325 Mg Tablet, 650 MG PO Q6H PRN for .PAIN 1-3 OR TEMP for 7 Days, TAB Prov:RICKIE DALTON MD 06/12/18 Rifaximin* (Xifaxan*) 550 Mg Tablet, 550 MG PO BID for 14 Days, #30 TAB Prov:RICKIE DALTON MD 06/12/18 Loperamide Hcl* (Imodium*) 2 Mg Capsule, 2 MG PO .AFTER EA LOOSE BM PRN for DIARRHEA, #10 TAB Prov:ADAMS MAK MD 04/30/18 Ondansetron (Ondansetron Odt) 4 Mg Tab.rapdis, 4 MG PO Q6H PRN for NAUSEA AND/OR VOMITING, #10 TAB Prov:ADAMS MAK MD 04/30/18 Hydroxyzine Hcl* (Hydroxyzine Hcl*) 10 Mg Tablet, 10 MG PO TID, #20 TAB Prov:CASA RIOJAS MD 01/10/18 Sertraline Hcl* (Sertraline Hcl*) 100 Mg Tablet, 100 MG PO DAILY for 30 Days, TAB Prov:ZHANG WARE NP 02/28/16 Medications Current Medications IV Flush (NS 3 ml) 3 ml PER PROTOCOL IV ; Start 09/15/18 at 07:30 Ondansetron HCl (Zofran Inj) 4 mg Q6H PRN IV NAUSEA/VOMITING; Start 09/15/18 at 07:30 Acetaminophen (Tylenol Tab) 650 mg Q6H PRN PO .PAIN 1-3 OR TEMP; Start 09/15/18 at 07:30 Amlodipine Besylate (Norvasc) 5 mg DAILY PO ; Start 09/15/18 at 09:00 Baclofen (Lioresal) 10 mg BID PO ; Start 09/15/18 at 09:00 Buspirone HCl (Buspar) 10 mg BID PO ; Start 09/15/18 at 09:00 Calcium Carbonate (Oyster Shell Calcium) 1.25 gm BID PO ; Start 09/15/18 at 09:00 Carvedilol (Coreg) 6.25 mg BID PO ; Start 09/15/18 at 09:00 Clonazepam (Klonopin) 0.5 mg DAILY PRN PO ANXIETY; Start 09/15/18 at 07:30 Docusate Sodium (Colace) 100 mg BID PO ; Start 09/15/18 at 09:00 Methadone HCl (Methadone Liq) 68 mg DAILY PO ; Start 09/15/18 at 09:00; Status UNV Pantoprazole (Protonix Tab) 40 mg DAILY@06 PO ; Start 09/16/18 at 06:00 Rifaximin (Xifaxan) 550 mg BID PO ; Start 09/15/18 at 09:00 Sertraline HCl (Zoloft) 100 mg DAILY PO ; Start 09/15/18 at 09:00; Status Hold Fluticasone/ Vilanterol (Breo Ellipta 200-25 Mcg Inh) 1 inh DAILY INH ; Start 09/15/18 at 09:00 Methylprednisolone Sodium Succinate (Solu-Medrol) 60 mg DAILY IV Last administered on 09/15/18at 10:50; Admin Dose 60 MG; Start 09/15/18 at 09:00 Albuterol/ Ipratropium (Duoneb) 3 ml Q3H RESP THERAPY PRN HHN WHEEZING AND SOB; Start 09/15/18 at 08:00 Vancomycin HCl (Vanco Iv Per Pharmacy) VANCOMYCIN PER PHARMACY PER PROTOCOL XX ; Start 09/15/18 at 09:00 Piperacillin Sod/ Tazobactam Sod 100 ml @ 200 mls/hr Q8H IVPB Last administered on 09/15/18at 10:50; Admin Dose 200 MLS/HR; Start 09/15/18 at 09:00 Dextrose/Sodium Chloride 1,000 ml @ 100 mls/hr Q10H IV Last administered on 09/15/18at 10:49; Admin Dose 100 MLS/HR; Start 09/15/18 at 09:30 Vancomycin HCl 250 ml @ 125 mls/hr LOADING DOSE ONCE IVPB ; Start 09/15/18 at 10:00; Stop 09/15/18 at 11:59 Apixaban (Eliquis) 5 mg BID PO ; Start 09/15/18 at 10:30 Allergies: Coded Allergies: Sulfa (Sulfonamide Antibiotics) (Unverified Allergy, Mild, 09/15/18) chlorpromazine HCl (Unverified Allergy, Unknown, 09/15/18) lorazepam (Unverified Allergy, Unknown, 09/15/18) Uncoded Allergies: tape (Allergy, Mild, rash, 02/28/16) Past Surgical History Past Surgical Hx: other Social History Smoking Status: Current every day smoker Exam/Review of Systems Vital Signs Vitals Vital Signs Date Temp Pulse Resp B/P (MAP) Pulse Ox O2 O2 Flow FiO2 Time Delivery Rate 09/15/18 118 09:00 09/15/18 97.5 35 130/99 100 BIPAP 08:19 (109) 09/15/18 50 08:13 Exam Constitutional: alert Head: normocephalic, atraumatic ENMT: other (on BiPAP) Neck: jvd (9cm) Respiratory: diminished breath sounds; No clear to auscultation Cardiovascular: other (cool extremities ); No regular rate and rhythm (tachycardic, regular), No edema Gastrointestinal: soft, non-tender; No distended Neurological: nl mental status; No nl speech Labs Result Diagram: 09/15/18 0250 09/15/18 0250 Results 24hrs Laboratory Tests Test 09/15/18 01:03 09/15/18 01:26 09/15/18 02:15 09/15/18 02:50 Blood Gas Blood arterial Blood arterial Specimen Source Arterial Blood 09/15/2018 1:50: 09/15/2018 2:10: Date Drawn 34 AM 21 AM Arterial Blood 7.252 *L 7.300 L pH (Temp corrected) Arterial Blood 54.8 H 47.6 H pCO2 (Temp correct) Arterial Blood 23.6 22.9 HCO3 Arterial Blood -4.2 L -3.7 L Base Excess Arterial Blood 99.7 H 99.3 H Oxygen Saturatio n Flip Test ACCEPTAB ACCEPTAB Arterial Blood Right Radial Right Radial Gas Puncture Site Arterial 0.2 0.3 Blood Carboxyhem oglobin Arterial Blood 0.4 0.3 Methemoglobin Oxyhemoglobin 99.1 H 98.7 Percent Blood Gas 37.0 37.0 Temperature Blood Gas 16.0 16.0 Respiration Rate Blood Gas Actual 45 45 Respiration Rate Blood Gas MASK - BIPAP MASK - BIPAP Modality FiO2 100.0 100.0 Blood Gas 16/07 16/07 IPAP/EPAP Ratio Blood Gas Patricia NEWBY MD Critical Value Read Back Blood Gas [facility] Notified Whom Blood Gas 09/15/2018 1:59: 09/15/2018 2:17: Notified Time 35 AM 52 AM POC Venous 4.2 *H Lactate Arterial Blood 273.5 H pO2 (Temp corrected) Blood Gas A-a O2 391.9 H Differential White Blood 19.4 #H Count Red Blood Count 4.10 L Hemoglobin 12.3 Hematocrit 40.4 Mean Corpuscular 98.5 Volume Mean Corpuscular 30.0 Hemoglobin Mean Corpuscular 30.4 L Hemoglobin Precious nt Red Cell 14.7 H Distribution Width Platelet Count 186 Mean Platelet 12.3 H Volume Immature 1.000 H Granulocytes % Neutrophils % 83.0 H Lymphocytes % 8.3 L Monocytes % 7.5 Eosinophils % 0.0 Basophils % 0.2 Nucleated Red 0.0 Blood Cells % Immature 0.200 H Granulocytes # Neutrophils # 16.1 H Lymphocytes # 1.6 Monocytes # 1.5 H Eosinophils # 0.0 Basophils # 0.0 Nucleated Red 0.0 Blood Cells # Sodium Level 150 H Potassium Level 4.0 Chloride Level 114 H Carbon Dioxide 25 Level Anion Gap 11 Blood Urea 72 H Nitrogen Creatinine 2.07 H Est Glomerular 24 L Filtrat Rate mL/min Glucose Level 97 Lactic Acid 4.9 *H Level Calcium Level 8.0 L Total Bilirubin 0.6 Direct Bilirubin 0.00 Indirect 0.6 Bilirubin Aspartate Amino 355 H Transf (AST/SGOT ) Alanine 160 H Aminotransferase (ALT/SGPT) Alkaline 70 Phosphatase Troponin I 0.571 *H Total Protein 6.4 Albumin 3.5 Globulin 2.90 Albumin/Globulin 1.20 Ratio Test 09/15/18 03:05 09/15/18 04:47 09/15/18 08:06 09/15/18 10:07 Prothrombin Time 16.9 H Prothrombin Time 1.3 Ratio INR 1.36 International Normalized Ratio Activated 25.4 Partial Thrombop last Time Lactic Acid 2.1 *H 2.1 *H Level Creatine Kinase 83873 H Creatine Kinase 0.9 Index Creatinine 130.00 H Kinase MB (Mass) Troponin I 0.359 *H Medications Medications Current Medications IV Flush (NS 3 ml) 3 ml PER PROTOCOL IV ; Start 09/15/18 at 07:30 Ondansetron HCl (Zofran Inj) 4 mg Q6H PRN IV NAUSEA/VOMITING; Start 09/15/18 at 07:30 Acetaminophen (Tylenol Tab) 650 mg Q6H PRN PO .PAIN 1-3 OR TEMP; Start 09/15/18 at 07:30 Amlodipine Besylate (Norvasc) 5 mg DAILY PO ; Start 09/15/18 at 09:00 Baclofen (Lioresal) 10 mg BID PO ; Start 09/15/18 at 09:00 Buspirone HCl (Buspar) 10 mg BID PO ; Start 09/15/18 at 09:00 Calcium Carbonate (Oyster Shell Calcium) 1.25 gm BID PO ; Start 09/15/18 at 09:0 0 Carvedilol (Coreg) 6.25 mg BID PO ; Start 09/15/18 at 09:00 Clonazepam (Klonopin) 0.5 mg DAILY PRN PO ANXIETY; Start 09/15/18 at 07:30 Docusate Sodium (Colace) 100 mg BID PO ; Start 09/15/18 at 09:00 Methadone HCl (Methadone Liq) 68 mg DAILY PO ; Start 09/15/18 at 09:00; Status UNV Pantoprazole (Protonix Tab) 40 mg DAILY@06 PO ; Start 09/16/18 at 06:00 Rifaximin (Xifaxan) 550 mg BID PO ; Start 09/15/18 at 09:00 Sertraline HCl (Zoloft) 100 mg DAILY PO ; Start 09/15/18 at 09:00; Status Hold Fluticasone/ Vilanterol (Breo Ellipta 200-25 Mcg Inh) 1 inh DAILY INH ; Start 09/15/18 at 09:00 Methylprednisolone Sodium Succinate (Solu-Medrol) 60 mg DAILY IV Last administered on 09/15/18at 10:50; Admin Dose 60 MG; Start 09/15/18 at 09:00 Albuterol/ Ipratropium (Duoneb) 3 ml Q3H RESP THERAPY PRN HHN WHEEZING AND SOB; Start 09/15/18 at 08:00 Vancomycin HCl (Vanco Iv Per Pharmacy) VANCOMYCIN PER PHARMACY PER PROTOCOL XX ; Start 09/15/18 at 09:00 Piperacillin Sod/ Tazobactam Sod 100 ml @ 200 mls/hr Q8H IVPB Last administered on 09/15/18at 10:50; Admin Dose 200 MLS/HR; Start 09/15/18 at 09:00 Dextrose/Sodium Chloride 1,000 ml @ 100 mls/hr Q10H IV Last administered on 09/15/18at 10:49; Admin Dose 100 MLS/HR; Start 09/15/18 at 09:30 Vancomycin HCl 250 ml @ 125 mls/hr LOADING DOSE ONCE IVPB ; Start 09/15/18 at 10:00; Stop 09/15/18 at 11:59 Apixaban (Eliquis) 5 mg BID PO ; Start 09/15/18 at 10:30 WILFRID OCAMPO Sep 15, 2018 12:19
--- NOTE | 2018-09-15 12:42 | CONS ---
DATE OF ADMISSION: 09/15/2018 DATE OF CONSULTATION: 09/15/2018 REASON FOR CONSULTATION: Shortness of breath. Thank you, Dr. Radford, for this consultation. HISTORY OF PRESENT ILLNESS: This is a 68-year-old lady with longstanding history of COPD who comes i n with increasing shortness of breath, orthopnea, PND, chest discomfort, found to have elevated tropo riley at 0.57. Initially admitted to telemetry unit where she had worsening respiratory distress, plac ed on bilevel ventilation, transferred down to intensive care unit. Here, she remains awake, alert, oriented on bilevel ventilation, has declined intubation and CPR; however, currently in no respirator y distress. PAST MEDICAL HISTORY: COPD, psychiatric disorder, pulmonary embolus, chronic kidney disease, hepatit is C. MEDICATIONS: Per chart. ALLERGIES: NONE. SOCIAL HISTORY: She has positive ongoing tobacco history. No history of drug abuse. FAMILY HISTORY: Noncontributory. SYSTEMS REVIEW: A 12-point review of systems was negative other than mentioned above. PHYSICAL EXAMINATION: GENERAL: Thin, elderly-appearing lady, appears comfortable at rest, no acute distress. VITAL SIGNS: Currently afebrile, pulse is 110, blood pressure 130/99, O2 saturation 96%, FIO2 of 50% on BiPAP. NECK: Supple. JVD is not elevated. CARDIAC: S1, S2, no added sounds or murmurs. CHEST: Diminished air entry bilaterally. ABDOMEN: Soft, nontender. No guarding or rebound. EXTREMITIES: No cyanosis, clubbing, 1+ edema. NEUROLOGIC: Grossly intact. LABORATORIES: White count 19.4, hemoglobin 12.3, platelets within normal limits. Sodium 150, BUN 72 , creatinine 2.07. Lactic acid initially 4.92, 2.1. Troponin initially 0.57, now 0.35, AST 35 5. ALT 160. DIAGNOSTIC DATA: Chest x-ray showed mild hyperinflation, no infiltrates or effusions noted. IMPRESSION AND PLAN: 1. Likely demand ischemia type 2, non-ST elevation myocardial infarction. 2. Chronic obstructive pulmonary disease exacerbation. 3. Underlying psychiatric disorder. 4. Dehydration and renal insufficiency. The patient will require: 1. IV fluids. 2. Bronchodilators. 3. Supplemental O2. 4. Steroid taper. 5. Check a procalcitonin level. 6. DVT and GI prophylaxis. Dictated By: EMMA STEINBERG MD SV/NTS Conf#: [id number] DID#: [id number] CC: GERALDO RADFORD MD;*EndCC*
[2018-09-15] MEDS ORDERED: APIXABAN 5 MG TABLET PO ONE (13:00)
[2018-09-15] MEDS ORDERED: LEVALBUTEROL (NEB) 0.63 MG/3 ML AMP HHN PRN (14:00)
[2018-09-15] MEDS: LEVALBUTEROL (NEB) 0.63 MG/3 ML AMP HHN SCH ×2 (17:00→20:12)
[2018-09-15] MEDS: APIXABAN 5 MG TABLET PO SCH (21:23)
[2018-09-16] VITALS (26 sets, daily range): BP systolic 69–135; BP diastolic 12–97; PULSE 89–188; RESP 17–45
[2018-09-16] MEDS: PIPER-TAZO 3.375 GM IV (PMX) 100 ML IVPB SCH ×3 (00:20→18:29)
[2018-09-16] MEDS: LEVALBUTEROL (NEB) 0.63 MG/3 ML AMP HHN SCH ×6 (01:34→20:02)
[2018-09-16] MEDS: DEXTROSE 5%-0.225% NACL 1,000 ML IV SCH ×2 (05:09→09:17)
[2018-09-16] MEDS ORDERED: PANTOPRAZOLE (EC) 40 MG TAB PO SCH (06:00)
[2018-09-16] MEDS: DOCUSATE SODIUM 100 MG CAP PO SCH ×2 (09:00→21:25)
[2018-09-16] MEDS: CALCIUM CARBONATE 1.25 GM TAB PO SCH ×2 (09:00→21:26)
[2018-09-16] MEDS: RIFAXIMIN 550 MG TAB PO SCH ×2 (09:00→21:26)
[2018-09-16] MEDS: BUSPIRONE 10 MG TAB PO SCH ×2 (09:00→21:25)
[2018-09-16] MEDS: BACLOFEN 10 MG TAB PO SCH ×2 (09:00→21:26)
[2018-09-16] MEDS: METHYLPREDNISOLONE 125 MG INJ IV SCH (09:16)
[2018-09-16] MEDS: APIXABAN 5 MG TABLET PO SCH ×2 (09:17→21:26)
--- NOTE | 2018-09-16 10:26 | PN ---
Date/Time of Note Date/Time of Note DATE: 09/16/18 TIME: 10:22 Assessment/Plan VTE Prophylaxis Risk score (from Ns)>0 risk: 4 SCD applied (from Ns): No SCD contraindicated: other Pharmacological prophylaxis: apixaban Lines/Catheters IV C[facility]ter Type (from [facility]): Peripheral IV Urinary Cath still in place: No Assessment/Plan Hospital Course S: Patient has still been on BiPAP. Seen by guidance consultant team yesterday. Still on fluids, antibiotics, with lactic acid still elevated. Patient now DNR, DNI since yesterday. O: VS- see below PE: Gen: Lying in bed, opens eyes presently on BiPAP Head: Atraumatic Eyes: Normal Conjunctiva ENT: Normal External Ears, Nose and Mouth. Neck: Full range of motion. No meningismus. Resp: Clear to auscultation bilaterally Cardio: Regular rate and rhythm, no murmurs Abd: Soft, non tender, non distended. Normal bowel sounds Ext: No bilateral lower extremity edema Neuro: No focal deficits Assessment/Plan: 68-year-old female history COPD, PE May 2018, CKD, who presents with: 1. Hypoxic and hypercapnic respiratory failure: Most likely secondary to COPD exacerbation, with likely superimposed pneumonia given the chest x-ray findings. -For now continue supplemental oxygen, bronchodilators, as needed BiPAP, broad-spectrum antibiotics -DuoNebs as needed, follow recommend patients from pulmonary consult 2. NSTEMI-First troponin 0.57. It was 0.407 in May of this year when she was diagnosed with PE, at that time she was diagnosed with a type II event. -Monitor serial troponin -Follow-up recommendations from cardiology consult -will consider VQ scan, apparently she was prescribed Eliquis when diagnosed with PE in May 2018, unclear if she has been compliant, thus we have restarted Eliquis cautiously now given the history of PE diagnosed in May 2018, renally dosed 3. Sepsis: Unknown source-although pneumonia is high on the differential. Also waiting for UA results. Again lactic acid is high. -Continue broad-spectrum IV antibiotic -Follow-up culture results -Trend lactic acid continue IV fluids, Tylenol PRN pain and fevers 4. Acute renal insufficiency: Likely prerenal. Creatinine more elevated today at 2.69 -will hydrate, switch to D5W IV fluids given the hypernatremia -Renal ultrasound and now will obtain nephrology consult since creatinine more elevated 5. Elevated transaminases: patient with a known history of hep C liver disease -Monitor -Abdominal imaging if worsening 6. Hypernatremia: Suspect from dehydration -Again, we will hydrate with D5W IV fluids, monitor basic metabolic panel the a.m. Critical care time spent in patient care today equals 45 minutes. Result Diagram: 09/16/18 0439 09/16/18 0439 Results 24hrs Laboratory Tests Test 09/15/18 15:15 09/15/18 22:15 09/16/18 04:39 09/16/18 04:42 Lactic Acid Level 2.9 *H 2.5 *H 2.7 *H Creatine Kinase 83017 H Creatine Kinase 0.7 Index Creatinine Kinase 91.80 H MB (Mass) Troponin I 0.349 *H Procalcitonin 2.13 H White Blood Count 16.7 H Red Blood Count 3.92 L Hemoglobin 11.9 L Hematocrit 38.4 Mean Corpuscular 98.0 Volume Mean Corpuscular 30.4 Hemoglobin Mean Corpuscular 31.0 L Hemoglobin Concen t Red Cell 15.0 H Distribution Width Platelet Count 191 Mean Platelet 12.0 H Volume Immature 0.700 H Granulocytes % Neutrophils % Segmented 23 L Neutrophils % (Manual) Band Neutrophils 54 H % (Manual) Lymphocytes % Lymphocytes % 9 L (Manual) Reactive 1 H Lymphocytes % (Manual) Monocytes % Monocytes % 4 (Manual) Eosinophils % Basophils % Metamyelocytes % 4 H (manual) Myelocytes % 2 H (Manual) Promyelocytes % 3 H (Manual) Nucleated Red 1 H Blood Cells % Immature 0.110 H Granulocytes # Neutrophils # Neutrophils # 5.3 (Manual) Band Neutrophils 9.0 H # Lymphocytes 1.5 (Manual) Lymphocytes # Reactive 0.1 H Lymphocytes # Monocytes # Monocytes # 0.6 (Manual) Eosinophils # Basophils # Metamyelocytes # 0.6 H Myelocytes # 0.3 H Promyelocytes # 0.5 H Nucleated Red Blood Cells # Platelet Estimate NORMAL Giant Platelets 3 H Polychromasia 1+ Poikilocytosis 3+ Anisocytosis 2+ Macrocytosis 2+ Spherocytes 1+ Sodium Level 151 H Potassium Level 3.5 Chloride Level 117 H Carbon Dioxide 23 Level Anion Gap 11 Blood Urea 94 H Nitrogen Creatinine 2.69 H Est Glomerular 18 L Filtrat Rate mL/min Glucose Level 226 #H Hemoglobin A1c 5.0 Calcium Level 7.4 L Phosphorus Level 4.0 Magnesium Level 2.5 Total Bilirubin 0.5 Direct Bilirubin 0.00 Indirect 0.5 Bilirubin Aspartate Amino 336 H Transf (AST/SGOT) Alanine 218 H Aminotransferase (ALT/SGPT) Alkaline 64 Phosphatase Total Protein 6.1 Albumin 3.1 L Globulin 3.00 Albumin/Globulin 1.00 Ratio Triglycerides 119 Level Cholesterol Level 149 LDL Cholesterol, 81 Calculated HDL Cholesterol 44 Cholesterol/HDL 3.3 Ratio Test 09/16/18 09:45 Blood Gas Blood arterial Specimen Source Arterial Blood 09/16/2018 10:00: Date Drawn 45 AM Arterial Blood pH 7.351 (Temp corrected) Arterial Blood 37.4 pCO2 (Temp correct) Arterial Blood 214.2 H pO2 (Temp corrected) Arterial Blood 20.2 L HCO3 Arterial Blood -4.8 L Base Excess Arterial Blood 99.3 H Oxygen Saturation Lfip Test ACCEPTAB Arterial Blood Right Radial Gas Puncture Site Arterial 0.1 Blood Carboxyhemo globin Arterial Blood 0.2 Methemoglobin Blood Gas A-a O2 100.2 H Differential Oxyhemoglobin 99.0 Percent Blood Gas 37.0 Temperature Blood Gas 20.0 Respiration Rate Blood Gas Actual 31 Respiration Rate Blood Gas MASK - BIPAP Modality FiO2 50.0 Blood Gas 13 Pressure Support Blood Gas 18/5 IPAP/EPAP Ratio Blood Gas TM Notified Whom Blood Gas 09/16/2018 10:11: Notified Time 30 AM Exam/Review of Systems Exam Vitals Vital Signs Date Temp Pulse Resp B/P (MAP) Pulse Ox O2 O2 Flow FiO2 Time Delivery Rate 09/16/18 101 100 50 09:43 09/16/18 29 123/74 06:00 (90) 09/16/18 97.5 04:00 09/15/18 BIPAP 18:00 Intake and Output 09/15/18 09/15/18 09/16/18 1515:00 23:00 07:00 IntakeIntake Total 600 ml 400 ml OutputOutput Total 401 ml 620 ml 550 ml BalanceBalance 199 ml -220 ml -550 ml Results Results 24hrs Laboratory Tests Test 09/15/18 15:15 09/15/18 22:15 09/16/18 04:39 09/16/18 04:42 Lactic Acid Level 2.9 *H 2.5 *H 2.7 *H Creatine Kinase 46838 H Creatine Kinase 0.7 Index Creatinine Kinase 91.80 H MB (Mass) Troponin I 0.349 *H Procalcitonin 2.13 H White Blood Count 16.7 H Red Blood Count 3.92 L Hemoglobin 11.9 L Hematocrit 38.4 Mean Corpuscular 98.0 Volume Mean Corpuscular 30.4 Hemoglobin Mean Corpuscular 31.0 L Hemoglobin Concen t Red Cell 15.0 H Distribution Width Platelet Count 191 Mean Platelet 12.0 H Volume Immature 0.700 H Granulocytes % Neutrophils % Segmented 23 L Neutrophils % (Manual) Band Neutrophils 54 H % (Manual) Lymphocytes % Lymphocytes % 9 L (Manual) Reactive 1 H Lymphocytes % (Manual) Monocytes % Monocytes % 4 (Manual) Eosinophils % Basophils % Metamyelocytes % 4 H (manual) Myelocytes % 2 H (Manual) Promyelocytes % 3 H (Manual) Nucleated Red 1 H Blood Cells % Immature 0.110 H Granulocytes # Neutrophils # Neutrophils # 5.3 (Manual) Band Neutrophils 9.0 H # Lymphocytes 1.5 (Manual) Lymphocytes # Reactive 0.1 H Lymphocytes # Monocytes # Monocytes # 0.6 (Manual) Eosinophils # Basophils # Metamyelocytes # 0.6 H Myelocytes # 0.3 H Promyelocytes # 0.5 H Nucleated Red Blood Cells # Platelet Estimate NORMAL Giant Platelets 3 H Polychromasia 1+ Poikilocytosis 3+ Anisocytosis 2+ Macrocytosis 2+ Spherocytes 1+ Sodium Level 151 H Potassium Level 3.5 Chloride Level 117 H Carbon Dioxide 23 Level Anion Gap 11 Blood Urea 94 H Nitrogen Creatinine 2.69 H Est Glomerular 18 L Filtrat Rate mL/min Glucose Level 226 #H Hemoglobin A1c 5.0 Calcium Level 7.4 L Phosphorus Level 4.0 Magnesium Level 2.5 Total Bilirubin 0.5 Direct Bilirubin 0.00 Indirect 0.5 Bilirubin Aspartate Amino 336 H Transf (AST/SGOT) Alanine 218 H Aminotransferase (ALT/SGPT) Alkaline 64 Phosphatase Total Protein 6.1 Albumin 3.1 L Globulin 3.00 Albumin/Globulin 1.00 Ratio Triglycerides 119 Level Cholesterol Level 149 LDL Cholesterol, 81 Calculated HDL Cholesterol 44 Cholesterol/HDL 3.3 Ratio Test 09/16/18 09:45 Blood Gas Blood arterial Specimen Source Arterial Blood 09/16/2018 10:00: Date Drawn 45 AM Arterial Blood pH 7.351 (Temp corrected) Arterial Blood 37.4 pCO2 (Temp correct) Arterial Blood 214.2 H pO2 (Temp corrected) Arterial Blood 20.2 L HCO3 Arterial Blood -4.8 L Base Excess Arterial Blood 99.3 H Oxygen Saturation Flip Test ACCEPTAB Arterial Blood Right Radial Gas Puncture Site Arterial 0.1 Blood Carboxyhemo globin Arterial Blood 0.2 Methemoglobin Blood Gas A-a O2 100.2 H Differential Oxyhemoglobin 99.0 Percent Blood Gas 37.0 Temperature Blood Gas 20.0 Respiration Rate Blood Gas Actual 31 Respiration Rate Blood Gas MASK - BIPAP Modality FiO2 50.0 Blood Gas 13 Pressure Support Blood Gas 18 IPAP/EPAP Ratio Blood Gas TM Notified Whom Blood Gas 09/16/2018 10:11: Notified Time 30 AM Medications Medication Current Medications IV Flush (NS 3 ml) 3 ml PER PROTOCOL IV ; Start 09/15/18 at 07:30 Ondansetron HCl (Zofran Inj) 4 mg Q6H PRN IV NAUSEA/VOMITING; Start 09/15/18 at 07:30 Acetaminophen (Tylenol Tab) 650 mg Q6H PRN PO .PAIN 1-3 OR TEMP; Start 09/15/18 at 07:30 Amlodipine Besylate (Norvasc) 5 mg DAILY PO ; Start 09/15/18 at 09:00 Baclofen (Lioresal) 10 mg BID PO ; Start 09/15/18 at 09:00 Buspirone HCl (Buspar) 10 mg BID PO ; Start 09/15/18 at 09:00 Calcium Carbonate (Oyster Shell Calcium) 1.25 gm BID PO ; Start 09/15/18 at 09:00 Carvedilol (Coreg) 6.25 mg BID PO ; Start 09/15/18 at 09:00 Clonazepam (Klonopin) 0.5 mg DAILY PRN PO ANXIETY; Start 09/15/18 at 07:30 Docusate Sodium (Colace) 100 mg BID PO ; Start 09/15/18 at 09:00 Methadone HCl (Methadone Liq) 68 mg DAILY PO ; Start 09/15/18 at 09:00; Status UNV Pantoprazole (Protonix Tab) 40 mg DAILY@06 PO ; Start 09/16/18 at 06:00 Rifaximin (Xifaxan) 550 mg BID PO ; Start 09/15/18 at 09:00 Sertraline HCl (Zoloft) 100 mg DAILY PO ; Start 09/15/18 at 09:00; Status Hold Fluticasone/ Vilanterol (Breo Ellipta 200-25 Mcg Inh) 1 inh DAILY INH Last administered on 09/15/18 09:00; Admin Dose 1 INH; Start 09/15/18 at 09:00 Methylprednisolone Sodium Succinate (Solu-Medrol) 60 mg DAILY IV Last administered on 09/16/18 09:16; Admin Dose 60 MG; Start 09/15/18 at 09:00 Albuterol/ Ipratropium (Duoneb) 3 ml Q3H RESP THERAPY PRN HHN WHEEZING AND SOB; Start 09/15/18 at 08:00 Vancomycin HCl (Vanco Iv Per Pharmacy) VANCOMYCIN PER PHARMACY PER PROTOCOL XX ; Start 09/15/18 at 09:00 Piperacillin Sod/ Tazobactam Sod 100 ml @ 200 mls/hr Q8H IVPB Last administered on 09/16/18 09:16; Admin Dose 200 MLS/HR; Start 09/15/18 at 09:00 Dextrose/Sodium Chloride 1,000 ml @ 100 mls/hr Q10H IV Last administered on 09:17; Admin Dose 100 MLS/HR; Start 09/15/18 at 09:30 Apixaban (Eliquis) 2.5 mg BID PO Last administered on 09/16/18 09:17; Admin Dose 2.5 MG; Start 09/15/18 at 21:00 Levalbuterol (Xopenex Neb) 0.63 mg Q4H RESP THERAPY HHN Last administered on 09/16/18 08:22; Admin Dose 0.63 MG; Start 09/15/18 at 17:00 Levalbuterol (Xopenex Neb) 0.63 mg Q2H RESP THERAPY PRN HHN WHEEZING AND SOB; Start 09/15/18 at 14:00 STU ORTEZ Sep 16, 2018 10:26
--- NOTE | 2018-09-16 10:27 | RADRPT ---
Echocardiogram Report Patient Name: IDALMIS ENNISPatient ID: [id number] : 1950 (68y 6m)Study Date: 09/15/2018 2:16:29 PM Gender: FAccession #: [id number] Tech: Erwin Graves [facility] Location: [address] Ref.Physician: WILFRID ZHU Height(Cm): BSA: Weight(Kg): Quality: Technically Difficult StudyOrder Physician: WILFRID ZHU Account #: Procedures: Echocardiographic Report: Transthoracic echocardiogram with complete 2D, M-Mode, and doppler examination. Indications: Repeat. Eval for RV failure. Measurements: 2D/M Mode Doppler Measurement Value Normal Range Measurement Value Normal Range LVIDd 2D 3.2 [ 3.8 - 5.2 ] cm AV Peak Mack 1.1 [ 100.0 - 170.0 ] cm/sec LVIDs 2D 2.4 [ 2.2 - 3.5 ] cm AV Peak PG 5.0 [ 2.0 - 9.0 ] mmHg LVPWd 2D 0.9 [ 0.6 - 0.9 ] cm LVOT Peak Mack 1.1 [ 70.0 - 110.0 ] cm/sec IVSd 2D 0.9 [ 0.6 - 0.9 ] cm LVOT Peak PG 5.0 [ 2.0 - 6.0 ] mmHg AoR Diam 2D 2.3 [ 2.3 - 3.1 ] cm MV E Peak Mack 0.5 [ 60.0 - 130.0 ] cm/sec EDV 2D 39.7 [ 46.0 - 106.0 ] ml MV A Peak Mack 0.6 [ 100.0 - 120.0 ] cm/sec ESV 2D 19.5 [ 14.0 - 42.0 ] ml MV E/A 0.8 [ 0.8 - 1.5 ] ratio EF 2D 50.9 [ 54.0 - 74.0 ] percent MV Decel Time 180 [ 104 - 258 ] msec LA Dimen 2D 3.4 [ 2.7 - 3.8 ] cm Lat E` Mack 0.1 [ 10.0 - 15.0 ] cm/sec Lateral E/E` 9.6 [ 1.0 - 2.0 ] ratio Med E` Mack 0.0 cm/sec MV E/A 0.8 [ 0.8 - 1.5 ] ratio TR Peak Mack 3.3 [ 100.0 - 280.0 ] cm/sec TR Peak PG 43.0 mmHg RVSP 46.0 [ 10.0 - 36.0 ] mmHg Findings: Left Ventricle: Normal left ventricular systolic function. Normal left ventricular cavity size. Normal left ventricular wall thickness. Ejection fraction is visually estimated at 65 %. Right Ventricle: Normal right ventricular systolic function. Mild enlargement of right ventricle. Left Atrium: The left atrium is normal in size. Right Atrium: The right atrium is normal in size. Mitral Valve: Mild mitral annular calcification. Trace mitral regurgitation. Aortic Valve: Normal appearance of the aortic valve. No significant aortic stenosis or insufficiency. Tricuspid Valve: Normal appearance of the tricuspid valve. The estimated Peak RVSP is 46 mmHg. There is mild tricuspid regurgitation. Pericardium: Normal pericardium with no significant pericardial effusion. There is an anterior echo free space consistent with epicardial fat pad. Left pleural effusion seen. Aorta: Normal aortic root. IVC: Normal size and normal respiratory collapse consistent with normal right atrial pressure. Conclusions: Normal left ventricular systolic function. Normal left ventricular cavity size. Normal left ventricular wall thickness. Ejection fraction is visually estimated at 65 %. Normal right ventricular systolic function. Mild enlargement of right ventricle. No significant valvular stenosis or regurgitation seen. The estimated Peak RVSP is 46 mmHg. Normal size and normal respiratory collapse consistent with normal right atrial pressure. Electronically Signed By: Wilfrid Zhu 2018-09-16 10:26:15 PDT
[2018-09-16] MEDS: DEXTROSE 5% 1,000 ML IV SCH (10:30)
--- NOTE | 2018-09-16 10:56 | CONS ---
Assessment/Plan Assessment/Plan Hospital Course (Demo Recall) Acute respiratory failure: Currently being treated for COPD exacerbation. Echo does not show obvious RV dysfunction but recurrent PE is not excluded NSTEMI: trops 0.5 and trended down. Type II vs ?recurrent PE History of PE: diagnosed 05/2018. ?Recurrence COPD with acute exacerbation Acute renal failure: worse even with IVF Transaminitis: stable 300s Pulm HTN: PAP 60s 06/17. 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 Cr worse this am. LFTs stable. BP marginal, sinus tachycardia 100-110. Still very SOB. No chest pain Exam/Review of Systems Vital Signs Vitals Vital Signs Date Temp Pulse Resp B/P (MAP) Pulse Ox O2 O2 Flow FiO2 Time Delivery Rate 09/16/18 101 100 50 09:43 09/16/18 29 123/74 06:00 (90) 09/16/18 97.5 04:00 09/15/18 BIPAP 18:00 Intake and Output 09/15/18 09/15/18 09/16/18 1414:59 22:59 06:59 IntakeIntake Total 500 ml 500 ml OutputOutput Total 401 ml 620 ml 550 ml BalanceBalance 99 ml -120 ml -550 ml Exam Constitutional: alert, distress Head: normocephalic, atraumatic Neck: jvd (8cm) Respiratory: crackles/rales (mild at bases), diminished breath sounds; No clear to auscultation Cardiovascular: systolic murmur (2/6 TAMMY); No regular rate and rhythm, No edema Gastrointestinal: soft, non-tender; No distended Neurological: nl mental status; No nl speech Labs Result Diagram: 09/16/18 0439 09/16/18 0439 Results 24hrs Laboratory Tests Test 09/15/18 15:15 09/15/18 22:15 09/16/18 04:39 09/16/18 04:42 Lactic Acid Level 2.9 *H 2.5 *H 2.7 *H Creatine Kinase 77173 H Creatine Kinase 0.7 Index Creatinine Kinase 91.80 H MB (Mass) Troponin I 0.349 *H Procalcitonin 2.13 H White Blood Count 16.7 H Red Blood Count 3.92 L Hemoglobin 11.9 L Hematocrit 38.4 Mean Corpuscular 98.0 Volume Mean Corpuscular 30.4 Hemoglobin Mean Corpuscular 31.0 L Hemoglobin Concen t Red Cell 15.0 H Distribution Width Platelet Count 191 Mean Platelet 12.0 H Volume Immature 0.700 H Granulocytes % Neutrophils % Segmented 23 L Neutrophils % (Manual) Band Neutrophils 54 H % (Manual) Lymphocytes % Lymphocytes % 9 L (Manual) Reactive 1 H Lymphocytes % (Manual) Monocytes % Monocytes % 4 (Manual) Eosinophils % Basophils % Metamyelocytes % 4 H (manual) Myelocytes % 2 H (Manual) Promyelocytes % 3 H (Manual) Nucleated Red 1 H Blood Cells % Immature 0.110 H Granulocytes # Neutrophils # Neutrophils # 5.3 (Manual) Band Neutrophils 9.0 H # Lymphocytes 1.5 (Manual) Lymphocytes # Reactive 0.1 H Lymphocytes # Monocytes # Monocytes # 0.6 (Manual) Eosinophils # Basophils # Metamyelocytes # 0.6 H Myelocytes # 0.3 H Promyelocytes # 0.5 H Nucleated Red Blood Cells # Platelet Estimate NORMAL Giant Platelets 3 H Polychromasia 1+ Poikilocytosis 3+ Anisocytosis 2+ Macrocytosis 2+ Spherocytes 1+ Sodium Level 151 H Potassium Level 3.5 Chloride Level 117 H Carbon Dioxide 23 Level Anion Gap 11 Blood Urea 94 H Nitrogen Creatinine 2.69 H Est Glomerular 18 L Filtrat Rate mL/min Glucose Level 226 #H Hemoglobin A1c 5.0 Calcium Level 7.4 L Phosphorus Level 4.0 Magnesium Level 2.5 Total Bilirubin 0.5 Direct Bilirubin 0.00 Indirect 0.5 Bilirubin Aspartate Amino 336 H Transf (AST/SGOT) Alanine 218 H Aminotransferase (ALT/SGPT) Alkaline 64 Phosphatase Total Protein 6.1 Albumin 3.1 L Globulin 3.00 Albumin/Globulin 1.00 Ratio Triglycerides 119 Level Cholesterol Level 149 LDL Cholesterol, 81 Calculated HDL Cholesterol 44 Cholesterol/HDL 3.3 Ratio Test 09/16/18 09:45 09/16/18 10:03 Blood Gas Blood arterial Specimen Source Arterial Blood 09/16/2018 10:00: Date Drawn 45 AM Arterial Blood pH 7.351 (Temp corrected) Arterial Blood 37.4 pCO2 (Temp correct) Arterial Blood 214.2 H pO2 (Temp corrected) Arterial Blood 20.2 L HCO3 Arterial Blood -4.8 L Base Excess Arterial Blood 99.3 H Oxygen Saturation Flip Test ACCEPTAB Arterial Blood Right Radial Gas Puncture Site Arterial 0.1 Blood Carboxyhemo globin Arterial Blood 0.2 Methemoglobin Blood Gas A-a O2 100.2 H Differential Oxyhemoglobin 99.0 Percent Blood Gas 37.0 Temperature Blood Gas 20.0 Respiration Rate Blood Gas Actual 31 Respiration Rate Blood Gas MASK - BIPAP Modality FiO2 50.0 Blood Gas 13 Pressure Support Blood Gas 18/5 IPAP/EPAP Ratio Blood Gas TM Notified Whom Blood Gas 09/16/2018 10:11: Notified Time 30 AM Lactic Acid Level 1.9 Medications Medications Current Medications IV Flush (NS 3 ml) 3 ml PER PROTOCOL IV ; Start 09/15/18 at 07:30 Ondansetron HCl (Zofran Inj) 4 mg Q6H PRN IV NAUSEA/VOMITING; Start 09/15/18 at 07:30 Acetaminophen (Tylenol Tab) 650 mg Q6H PRN PO .PAIN 1-3 OR TEMP; Start 09/15/18 at 07:30 Baclofen (Lioresal) 10 mg BID PO ; Start 09/15/18 at 09:00 Buspirone HCl (Buspar) 10 mg BID PO ; Start 09/15/18 at 09:00 Calcium Carbonate (Oyster Shell Calcium) 1.25 gm BID PO ; Start 09/15/18 at 09:00 Clonazepam (Klonopin) 0.5 mg DAILY PRN PO ANXIETY; Start 09/15/18 at 07:30 Docusate Sodium (Colace) 100 mg BID PO ; Start 09/15/18 at 09:00 Methadone HCl (Methadone Liq) 68 mg DAILY PO ; Start 09/15/18 at 09:00; Status UNV Pantoprazole (Protonix Tab) 40 mg DAILY@06 PO ; Start 09/16/18 at 06:00 Rifaximin (Xifaxan) 550 mg BID PO ; Start 09/15/18 at 09:00 Sertraline HCl (Zoloft) 100 mg DAILY PO ; Start 09/15/18 at 09:00; Status Hold Fluticasone/ Vilanterol (Breo Ellipta 200-25 Mcg Inh) 1 inh DAILY INH Last administered on 09/15/18 09:00; Admin Dose 1 INH; Start 09/15/18 at 09:00 Methylprednisolone Sodium Succinate (Solu-Medrol) 60 mg DAILY IV Last administered on 09/16/18at 09:16; Admin Dose 60 MG; Start 09/15/18 at 09:00 Albuterol/ Ipratropium (Duoneb) 3 ml Q3H RESP THERAPY PRN HHN WHEEZING AND SOB; Start 09/15/18 at 08:00 Vancomycin HCl (Vanco Iv Per Pharmacy) VANCOMYCIN PER PHARMACY PER PROTOCOL XX ; Start 09/15/18 at 09:00 Piperacillin Sod/ Tazobactam Sod 100 ml @ 200 mls/hr Q8H IVPB Last administered on 09/16/18at 09:16; Admin Dose 200 MLS/HR; Start 09/15/18 at 09:00 Apixaban (Eliquis) 2.5 mg BID PO Last administered on 09/16/18 09:17; Admin Dose 2.5 MG; Start 09/15/18 at 21:00 Levalbuterol (Xopenex Neb) 0.63 mg Q4H RESP THERAPY HHN Last administered on 09/16/18 08:22; Admin Dose 0.63 MG; Start 09/15/18 at 17:00 Levalbuterol (Xopenex Neb) 0.63 mg Q2H RESP THERAPY PRN HHN WHEEZING AND SOB; Start 09/15/18 at 14:00 Dextrose 1,000 ml @ 125 mls/hr Q8H IV ; Start 09/16/18 at 10:30 WILFRID OCAMPO Sep 16, 2018 10:56
--- NOTE | 2018-09-16 13:30 | CONS ---
Consult Date/Type/Reason Admit Date/Time Sep 15, 2018 at 03:32 Initial Consult Date 09/15/18 Type of Consult Pulmonary Requesting Provider: GERALDO VARGAS MD Date/Time of Note DATE: 09/16/18 TIME: 13:27 Subjective Patient still mildly tachypneic this morning however transition to high flow O2 remains awake alert and oriented resumed anticoagulation for history of pulmonary embolus Objective Vital Signs Date Temp Pulse Resp B/P (MAP) Pulse Ox O2 O2 Flow FiO2 Time Delivery Rate 09/16/18 30 100 Nasal 90 12:31 Cannula 09/16/18 29 123/74 06:00 (90) 09/16/18 97.5 04:00 Intake and Output 09/15/18 09/15/18 09/16/18 1515:00 23:00 07:00 IntakeIntake Total 600 ml 400 ml OutputOutput Total 401 ml 620 ml 550 ml BalanceBalance 199 ml -220 ml -550 ml Exam PHYSICAL EXAMINATION: GENERAL: Thin, elderly-appearing lady, appears comfortable at rest, no acute distress. VITAL SIGNS: NECK: Supple. JVD is not elevated. CARDIAC: S1, S2, no added sounds or murmurs. CHEST: Diminished air entry bilaterally. ABDOMEN: Soft, nontender. No guarding or rebound. EXTREMITIES: No cyanosis, clubbing, 1+ edema. NEUROLOGIC: Grossly intact. Vent Setting Fraction of Inspired Oxygen pe: 90 Results/Medications Result Diagram: 09/16/18 0439 09/16/18 0439 Results 24 hrs Laboratory Tests Test 09/15/18 15:15 09/15/18 22:15 09/16/18 04:39 09/16/18 04:42 Lactic Acid Level 2.9 *H 2.5 *H 2.7 *H Creatine Kinase 53418 H Creatine Kinase 0.7 Index Creatinine Kinase 91.80 H MB (Mass) Troponin I 0.349 *H Procalcitonin 2.13 H White Blood Count 16.7 H Red Blood Count 3.92 L Hemoglobin 11.9 L Hematocrit 38.4 Mean Corpuscular 98.0 Volume Mean Corpuscular 30.4 Hemoglobin Mean Corpuscular 31.0 L Hemoglobin Concen t Red Cell 15.0 H Distribution Width Platelet Count 191 Mean Platelet 12.0 H Volume Immature 0.700 H Granulocytes % Neutrophils % Segmented 23 L Neutrophils % (Manual) Band Neutrophils 54 H % (Manual) Lymphocytes % Lymphocytes % 9 L (Manual) Reactive 1 H Lymphocytes % (Manual) Monocytes % Monocytes % 4 (Manual) Eosinophils % Basophils % Metamyelocytes % 4 H (manual) Myelocytes % 2 H (Manual) Promyelocytes % 3 H (Manual) Nucleated Red 1 H Blood Cells % Immature 0.110 H Granulocytes # Neutrophils # Neutrophils # 5.3 (Manual) Band Neutrophils 9.0 H # Lymphocytes 1.5 (Manual) Lymphocytes # Reactive 0.1 H Lymphocytes # Monocytes # Monocytes # 0.6 (Manual) Eosinophils # Basophils # Metamyelocytes # 0.6 H Myelocytes # 0.3 H Promyelocytes # 0.5 H Nucleated Red Blood Cells # Platelet Estimate NORMAL Giant Platelets 3 H Polychromasia 1+ Poikilocytosis 3+ Anisocytosis 2+ Macrocytosis 2+ Spherocytes 1+ Sodium Level 151 H Potassium Level 3.5 Chloride Level 117 H Carbon Dioxide 23 Level Anion Gap 11 Blood Urea 94 H Nitrogen Creatinine 2.69 H Est Glomerular 18 L Filtrat Rate mL/min Glucose Level 226 #H Hemoglobin A1c 5.0 Calcium Level 7.4 L Phosphorus Level 4.0 Magnesium Level 2.5 Total Bilirubin 0.5 Direct Bilirubin 0.00 Indirect 0.5 Bilirubin Aspartate Amino 336 H Transf (AST/SGOT) Alanine 218 H Aminotransferase (ALT/SGPT) Alkaline 64 Phosphatase Total Protein 6.1 Albumin 3.1 L Globulin 3.00 Albumin/Globulin 1.00 Ratio Triglycerides 119 Level Cholesterol Level 149 LDL Cholesterol, 81 Calculated HDL Cholesterol 44 Cholesterol/HDL 3.3 Ratio Test 09/16/18 09:45 09/16/18 10:03 09/16/18 12:02 Blood Gas Blood arterial Specimen Source Arterial Blood 09/16/2018 10:00: Date Drawn 45 AM Arterial Blood pH 7.351 (Temp corrected) Arterial Blood 37.4 pCO2 (Temp correct) Arterial Blood 214.2 H pO2 (Temp corrected) Arterial Blood 20.2 L HCO3 Arterial Blood -4.8 L Base Excess Arterial Blood 99.3 H Oxygen Saturation Flip Test ACCEPTAB Arterial Blood Right Radial Gas Puncture Site Arterial 0.1 Blood Carboxyhemo globin Arterial Blood 0.2 Methemoglobin Blood Gas A-a O2 100.2 H Differential Oxyhemoglobin 99.0 Percent Blood Gas 37.0 Temperature Blood Gas 20.0 Respiration Rate Blood Gas Actual 31 Respiration Rate Blood Gas MASK - BIPAP Modality FiO2 50.0 Blood Gas 13 Pressure Support Blood Gas 18/ IPAP/EPAP Ratio Blood Gas TM Notified Whom Blood Gas 09/16/2018 10:11: Notified Time 30 AM Lactic Acid Level 1.9 Troponin I 0.225 *H Medications Current Medications IV Flush (NS 3 ml) 3 ml PER PROTOCOL IV ; Start 09/15/18 at 07:30 Ondansetron HCl (Zofran Inj) 4 mg Q6H PRN IV NAUSEA/VOMITING; Start 09/15/18 at 07:30 Acetaminophen (Tylenol Tab) 650 mg Q6H PRN PO .PAIN 1-3 OR TEMP; Start 09/15/18 at 07:30 Baclofen (Lioresal) 10 mg BID PO ; Start 09/15/18 at 09:00 Buspirone HCl (Buspar) 10 mg BID PO ; Start 09/15/18 at 09:00 Calcium Carbonate (Oyster Shell Calcium) 1.25 gm BID PO ; Start 09/15/18 at 09:00 Clonazepam (Klonopin) 0.5 mg DAILY PRN PO ANXIETY; Start 09/15/18 at 07:30 Docusate Sodium (Colace) 100 mg BID PO ; Start 09/15/18 at 09:00 Methadone HCl (Methadone Liq) 68 mg DAILY PO ; Start 09/15/18 at 09:00; Status UNV Pantoprazole (Protonix Tab) 40 mg DAILY@06 PO ; Start 09/16/18 at 06:00 Rifaximin (Xifaxan) 550 mg BID PO ; Start 09/15/18 at 09:00 Sertraline HCl (Zoloft) 100 mg DAILY PO ; Start 09/15/18 at 09:00; Status Hold Fluticasone/ Vilanterol (Breo Ellipta 200-25 Mcg Inh) 1 inh DAILY INH Last administered on 09/15/18at 09:00; Admin Dose 1 INH; Start 09/15/18 at 09:00 Methylprednisolone Sodium Succinate (Solu-Medrol) 60 mg DAILY IV Last administered on 09/16/18at 09:16; Admin Dose 60 MG; Start 09/15/18 at 09:00 Albuterol/ Ipratropium (Duoneb) 3 ml Q3H RESP THERAPY PRN HHN WHEEZING AND SOB; Start 09/15/18 at 08:00 Vancomycin HCl (Vanco Iv Per Pharmacy) VANCOMYCIN PER PHARMACY PER PROTOCOL XX ; Start 09/15/18 at 09:00 Piperacillin Sod/ Tazobactam Sod 100 ml @ 200 mls/hr Q8H IVPB Last administered on 09/16/18at 09:16; Admin Dose 200 MLS/HR; Start 09/15/18 at 09:00 Apixaban (Eliquis) 2.5 mg BID PO Last administered on 09/16/18at 09:17; Admin Dose 2.5 MG; Start 09/15/18 at 21:00 Levalbuterol (Xopenex Neb) 0.63 mg Q4H RESP THERAPY HHN Last administered on 09/16/18at 12:27; Admin Dose 0.63 MG; Start 09/15/18 at 17:00 Levalbuterol (Xopenex Neb) 0.63 mg Q2H RESP THERAPY PRN HHN WHEEZING AND SOB; Start 09/15/18 at 14:00 Dextrose 1,000 ml @ 125 mls/hr Q8H IV ; Start 09/16/18 at 10:30 Assessment/Plan Hospital Course (Demo Recall) IMPRESSION 1. Likely demand ischemia type 2, non-ST elevation myocardial infarction. 2. Chronic obstructive pulmonary disease exacerbation. 3. Underlying psychiatric disorder. 4. Dehydration and renal insufficiency. Plan 1. IV fluids. 2. Bronchodilators. 3. Supplemental O2. 4. Steroid taper. 5. Resume anticoagulation with Eliquis 6. DVT and GI prophylaxis. EMMA STEINBERG MD, [facility] Sep 16, 2018 13:29
[2018-09-16] MEDS: COLLAGENASE 5 GM (UD JAR) TOP SCH (15:00)
--- NOTE | 2018-09-16 17:22 | CONS ---
DATE OF ADMISSION: 09/15/2018 DATE OF CONSULTATION: HISTORY OF PRESENT ILLNESS: The patient is a 68-year-old female with the past medical history of FRINGE MAKER D, history of previous PE, psychiatric disorder, chronic kidney disease, hepatitis C, liver disease w ho was brought in the ER after noticing dyspnea progressively worse and requires to be on BiPAP. On admission, the patient has been weaned down. On the course of the workup, was noted to have elevated renal function. The patient has had other admissions here with no previous acute renal failure inci dents. She continues to have good urine output since she has been here. She denies any new medicati ons. She is not any NSAIDs or NICOLAS inhibitors. She says she has been eating adequately. Her creatin ine has actually gotten worse and she has been here. She denies history of kidney stones. No urinal ysis has been done yet. No kidney imaging has been done. No recent fevers, chills, nausea, vomiting , chest pain, shortness of breath. PAST MEDICAL HISTORY: Significant for the above. MEDICATIONS FROM ADMISSION: 1. Protonix. 2. Eliquis. 3. Methadone 4. Advair. 5. ProAir. ALLERGIES: PATIENT HAS ALLERGIES TO SULFA, CHLORPROMAZINE, LORAZEPAM AND TAPE. SOCIAL HISTORY: Does not smoke, drink or use drugs. FAMILY HISTORY: History of kidney disease. REVIEW OF SYSTEMS: A 14-point review of systems attempted and is negative. PHYSICAL EXAMINATION: VITAL SIGNS: Temperature 98.5, blood pressure 112/65. HEENT: Normocephalic, atraumatic. Pupils are equal, round, reactive to light. Oropharynx has moist mucous membranes. NECK: Supple. HEART: Regular rate and rhythm. LUNGS: Clear to auscultation. ABDOMEN: Soft, nontender, nondistended. Normal bowel sounds. EXTREMITIES: No clubbing, cyanosis or edema. LABORATORY EVALUATION: Sodium 151, potassium 3.5, BUN 94, creatinine 2.69, calcium 7.4, phosphorus 4 .0. Troponin is 0.225, albumin 3.1. UA is reviewed microscopy. Chest x-ray was reviewed by the rad iologist. IMPRESSION AND PLAN: 1. Acute renal insufficiency, possibly vasomotor nephropathy, rule out acute tubular necrosis, obstr uctive uropathy, or interstitial cystitis. At this point, we will start by checking urine studies, u ltrasound to evaluate anatomy kidney size. Avoid nephrotoxins. All medications are dosed appropriat kenia for renal function. The patient is on a proton pump inhibitor which could theoretically cause ac wesley interstitial nephritis. We will check urine eosinophils as well. 2. Acute respiratory failure, likely related to chronic obstructive pulmonary disease exacerbation. Steroid taper, bronchodilators, pulmonary followup. 3. Non-ST myocardial infarction, likely demand ischemia type 2. Cardiology is following. Medicatio n optimized. 4. Sepsis, unknown source, possibly evolving pneumonia although impressed by the chest x-ray. Neena nue to monitor. 5. Elevated transaminases with the history of hepatitis C. Monitor abdominal imaging. If worse, ab dominal imaging will be done today. 6. Hyponatremia, likely related to total body water deficit. We will replace. Dictated By: CHELSIE RAMÍREZ MD DF/KAYLYN Conf#: [id number] DID#: [id number]
[2018-09-16] MEDS: BALSAM PERU/CASTOR OIL 60 GM TUBE TOP SCH (21:27)
[2018-09-16] MEDS: clonAZEPAM 0.5 MG TAB PO PRN (21:55)
[2018-09-17] VITALS (18 sets, daily range): BP systolic 91–120; BP diastolic 47–75; PULSE 86–105; RESP 20–31
[2018-09-17] MEDS ORDERED: ZOLPIDEM 5 MG TAB PO ONE (00:30)
[2018-09-17] MEDS: LEVALBUTEROL (NEB) 0.63 MG/3 ML AMP HHN SCH ×6 (01:59→20:24)
[2018-09-17] MEDS: PIPER-TAZO 3.375 GM IV (PMX) 100 ML IVPB SCH (02:10)
--- NOTE | 2018-09-17 08:36 | CONS ---
Consult Date/Type/Reason Admit Date/Time Sep 15, 2018 at 03:32 Initial Consult Date 09/15/18 Requesting Provider: GERALDO VARGAS MD Date/Time of Note DATE: 09/17/18 TIME: 08:26 Subjective 68-year-old female with the past medical history of COPD, history of previous PE, psychiatric disorder, chronic kidney disease, hepatitis C, liver disease who was brought in the ER after noticing dyspnea progressively worse and requires to be on BiPAP. On admission, the patient has been weaned down. On the course of the workup, was noted to have renal failure. The patient has had other admi ssions here with no previous acute renal failure incidents. She continues to have good urine output since she has been here. Patient weaned down to high flow O2 On steroids, IVF 1/2NS @ 125 ML/HR PHYSICAL EXAMINATION: HEENT: Normocephalic, atraumatic. Pupils are equal, round, reactive to light. Oropharynx has moist mucous membranes. NECK: Supple. HEART: Regular rate and rhythm. LUNGS: Clear to auscultation. ABDOMEN: Soft, nontender, nondistended. Normal bowel sounds. EXTREMITIES: No clubbing, cyanosis or edema. Objective Vitals Vital Signs Date Temp Pulse Resp B/P (MAP) Pulse Ox O2 O2 Flow FiO2 Time Delivery Rate 09/17/18 50 05:13 09/17/18 90 24 100 Nasal 05:12 Cannula 09/16/18 98.0 22:41 09/16/18 102/77 18:00 (85) Intake and Output 09/16/18 09/16/18 09/17/18 1515:00 23:00 07:00 IntakeIntake Total 1025 ml 495 ml OutputOutput Total 220 ml 135 ml BalanceBalance 805 ml 360 ml Results/Medications Result Diagram: 09/17/18 0509 09/17/18 0509 Results 24 hrs Laboratory Tests Test 09/16/18 09:45 09/16/18 10:03 09/16/18 12:02 09/16/18 17:55 Blood Gas Blood arterial Specimen Source Arterial Blood 09/16/2018 10:00: Date Drawn 45 AM Arterial Blood pH 7.351 (Temp corrected) Arterial Blood 37.4 pCO2 (Temp correct) Arterial Blood 214.2 H pO2 (Temp corrected) Arterial Blood 20.2 L HCO3 Arterial Blood -4.8 L Base Excess Arterial Blood 99.3 H Oxygen Saturation Flip Test ACCEPTAB Arterial Blood Right Radial Gas Puncture Site Arterial 0.1 Blood Carboxyhemo globin Arterial Blood 0.2 Methemoglobin Blood Gas A-a O2 100.2 H Differential Oxyhemoglobin 99.0 Percent Blood Gas 37.0 Temperature Blood Gas 20.0 Respiration Rate Blood Gas Actual 31 Respiration Rate Blood Gas MASK - BIPAP Modality FiO2 50.0 Blood Gas 13 Pressure Support Blood Gas 18/5 IPAP/EPAP Ratio Blood Gas TM Notified Whom Blood Gas 09/16/2018 10:11: Notified Time 30 AM Lactic Acid Level 1.9 Troponin I 0.225 *H 0.146 *H Test 09/17/18 00:37 09/17/18 05:09 Troponin I 0.133 *H White Blood Count 14.3 H Red Blood Count 3.32 L Hemoglobin 10.1 L Hematocrit 32.1 L Mean Corpuscular 96.7 Volume Mean Corpuscular 30.4 Hemoglobin Mean Corpuscular 31.5 L Hemoglobin Concen t Red Cell 15.0 H Distribution Width Platelet Count 145 # Mean Platelet 12.1 H Volume Immature 1.000 H Granulocytes % Neutrophils % Lymphocytes % Monocytes % Eosinophils % Basophils % Nucleated Red 0.3 H Blood Cells % Immature 0.140 H Granulocytes # Neutrophils # Lymphocytes # Monocytes # Eosinophils # Basophils # Nucleated Red Blood Cells # Sodium Level 141 Potassium Level 2.9 *L Chloride Level 110 Carbon Dioxide 22 Level Anion Gap 9 Blood Urea 95 H Nitrogen Creatinine 2.75 H Est Glomerular 17 L Filtrat Rate mL/min Glucose Level 195 Calcium Level 7.2 L Phosphorus Level 3.8 Magnesium Level 2.2 Total Bilirubin 0.3 Direct Bilirubin 0.00 Indirect 0.3 Bilirubin Aspartate Amino 224 H Transf (AST/SGOT) Alanine 235 H Aminotransferase (ALT/SGPT) Alkaline 62 Phosphatase Total Protein 5.3 L Albumin 2.6 L Random Vancomycin 14.5 Level Home Meds Active Scripts Pantoprazole* (Pantoprazole*) 40 Mg Tablet., 40 MG PO DAILY@06 for 14 Days, #14 Prov:RICKIE DALTON MD 06/12/18 Apixaban* (Eliquis*) 5 Mg Tablet, 10 MG PO BID for 30 Days, #60 TAB 10 mg twice daily for 5 days, then 5 mg twice daily Prov:RICKIE DALTON MD 06/12/18 Methadone Hcl* (Methadone*) 5 Mg/5 Ml Solution, 68 MG PO DAILY for 30 Days, ML Prov:STU ORTEZ 04/14/18 Salmeterol Xinaf/Fluticasone* (Advair*) 250-50 Diskus Inhaler, 1 INH INHALATION BID for 30 Days, #1 INHALER Prov:ZHANG WARE NP 02/28/16 Albuterol Sulfate* (Proair HFA*) 8.5 Gm Hfa.aer.ad, 2 PUFF INH Q6 for SHORTNESS OF BREATH for 14 Days, #1 INHALER Prov:ZHANG WARE HOME HEALTH OUTREACH COORDINATOR 02/28/16 Reported Medications Sertraline Hcl* (Sertraline Hcl*) 25 Mg Tablet, 25 MG PO DAILY, #30 TAB 09/15/18 Buspirone Hcl* (Buspirone Hcl*) 10 Mg Tab, 10 MG PO BID, TAB 09/15/18 Clonazepam* (Clonazepam*) 0.5 Mg Tablet, 0.5 MG PO DAILY PRN for ANXIETY, TAB 09/15/18 Ipratropium-Albuterol (Ipratropium-Albuterol) 0.5-3 Mg/3 Ml Ampul.neb, 3 ML INHALATION Q6 PRN for WHEEZING AND SOB, #30 VIAL 09/15/18 Carvedilol* (Carvedilol*) 6.25 Mg Tablet, 6.25 MG PO BID, #60 TAB 09/15/18 Cholecalciferol (Vitamin D3) (VITAMIN D-3) 2,000 Unit Capsule, 2000 U PO DAILY for 30 Days 04/30/18 Amlodipine Besylate* (Amlodipine Besylate*) 5 Mg Tablet, 5 MG PO DAILY for 30 Da ys, #30 04/30/18 Baclofen* (Baclofen*) 10 Mg Tablet, 10 MG PO BID 04/30/18 Calcium Carbonate ([id number]) 500 Mg Tablet, 500 MG PO BID, TAB 04/30/18 Discontinued Reported Medications Docusate Sodium* (Docusate Sodium*) 100 Mg Capsule, 100 MG PO BID, #60 CAP 04/30/18 Discontinued Scripts Oxymetazoline Hcl* (Afrin [place]*) 0.05% - 15 Ml [place], 2 SPRAY NASAL BID for 7 Days, #1 SPRAY 2 Refills Prov:RICKIE DALTON MD 06/12/18 Lactulose* (Lactulose*) 20 Gm/30 Ml Solution, 30 GM PO Q8 for 14 Days, #14 1 Refill Pharmacy: Dispensed 2-week supply with 1 refill Prov:RICKIE DALTON MD 06/12/18 Acetaminophen* (Tylenol*) 325 Mg Tablet, 650 MG PO Q6H PRN for .PAIN 1-3 OR TEMP for 7 Days, TAB Prov:RICKIE DALTON MD 06/12/18 Rifaximin* (Xifaxan*) 550 Mg Tablet, 550 MG PO BID for 14 Days, #30 TAB Prov:RICKIE DALTON MD 06/12/18 Loperamide Hcl* (Imodium*) 2 Mg Capsule, 2 MG PO .AFTER EA LOOSE BM PRN for DIARRHEA, #10 TAB Prov:ADAMS MAK MD 04/30/18 Ondansetron (Ondansetron Odt) 4 Mg Tab.rapdis, 4 MG PO Q6H PRN for NAUSEA AND/OR VOMITING, #10 TAB Prov:ADAMS MAK MD 04/30/18 Hydroxyzine Hcl* (Hydroxyzine Hcl*) 10 Mg Tablet, 10 MG PO TID, #20 TAB Prov:CASA RIOJAS MD 01/10/18 Sertraline Hcl* (Sertraline Hcl*) 100 Mg Tablet, 100 MG PO DAILY for 30 Days, TAB Prov:ZHANG WARE NP 02/28/16 Medications Current Medications IV Flush (NS 3 ml) 3 ml PER PROTOCOL IV ; Start 09/15/18 at 07:30 Ondansetron HCl (Zofran Inj) 4 mg Q6H PRN IV NAUSEA/VOMITING; Start 09/15/18 at 07:30 Acetaminophen (Tylenol Tab) 650 mg Q6H PRN PO .PAIN 1-3 OR TEMP Last administered on 09/16/18at 21:56; Admin Dose 650 MG; Start 09/15/18 at 07:30 Baclofen (Lioresal) 10 mg BID PO Last administered on 09/16/18at 21:26; Admin Dose 10 MG; Start 09/15/18 at 09:00 Buspirone HCl (Buspar) 10 mg BID PO Last administered on 09/16/18 21:25; Admin Dose 10 MG; Start 09/15/18 at 09:00 Calcium Carbonate (Oyster Shell Calcium) 1.25 gm BID PO Last administered on 09/16/18 21:26; Admin Dose 1.25 GM; Start 09/15/18 at 09:00 Clonazepam (Klonopin) 0.5 mg DAILY PRN PO ANXIETY Last administered on 09/16/18 21:55; Admin Dose 0.5 MG; Start 09/15/18 at 07:30 Docusate Sodium (Colace) 100 mg BID PO Last administered on 09/16/18 21:25; Admin Dose 100 MG; Start 09/15/18 at 09:00 Methadone HCl (Methadone Liq) 68 mg DAILY PO ; Start 09/15/18 at 09:00; Status UNV Pantoprazole (Protonix Tab) 40 mg DAILY@06 PO ; Start 09/16/18 at 06:00 Rifaximin (Xifaxan) 550 mg BID PO Last administered on 09/16/18 21:26; Admin Dose 550 MG; Start 09/15/18 at 09:00 Sertraline HCl (Zoloft) 100 mg DAILY PO ; Start 09/15/18 at 09:00; Status Hold Fluticasone/ Vilanterol (Breo Ellipta 200-25 Mcg Inh) 1 inh DAILY INH Last administered on 09/15/18at 09:00; Admin Dose 1 INH; Start 09/15/18 at 09:00 Methylprednisolone Sodium Succinate (Solu-Medrol) 60 mg DAILY IV Last administered on 09/16/18 09:16; Admin Dose 60 MG; Start 09/15/18 at 09:00 Albuterol/ Ipratropium (Duoneb) 3 ml Q3H RESP THERAPY PRN HHN WHEEZING AND SOB; Start 09/15/18 at 08:00 Vancomycin HCl (Vanco Iv Per Pharmacy) VANCOMYCIN PER PHARMACY PER PROTOCOL XX ; Start 09/15/18 at 09:00 Piperacillin Sod/ Tazobactam Sod 100 ml @ 200 mls/hr Q8H IVPB Last administered on 09/17/18at 02:10; Admin Dose 200 MLS/HR; Start 09/15/18 at 09:00 Apixaban (Eliquis) 2.5 mg BID PO Last administered on 09/16/18at 21:26; Admin Dose 2.5 MG; Start 09/15/18 at 21:00 Levalbuterol (Xopenex Neb) 0.63 mg Q4H RESP THERAPY HHN Last administered on 09/17/18at 05:12; Admin Dose 0.63 MG; Start 09/15/18 at 17:00 Levalbuterol (Xopenex Neb) 0.63 mg Q2H RESP THERAPY PRN HHN WHEEZING AND SOB; Start 09/15/18 at 14:00 Dextrose 1,000 ml @ 125 mls/hr Q8H IV Last administered on 09/16/18at 10:30; Admin Dose 125 MLS/HR; Start 09/16/18 at 10:30 Collagenase (Santyl) 1 applic DAILY TOP ; Start 09/16/18 at 15:00 Assessment/Plan Hospital Course (Demo Recall) 1. Acute renal insufficiency, possibly vasomotor nephropathy, rule out acute tubular necrosis, obstructive uropathy, or interstitial cystitis. - stabilized. cont on ivf as ordered. - fu urine studies, - ultrasound nondiagnostic due to bowel gas. further imaging once more stable. - Avoid nephrotoxins. All medications are dosed appropriately for renal function. -The patient is on a proton pump inhibitor which could theoretically cause acute interstitial nephritis. We will check urine eosinophils as well. 2. Acute respiratory failure, likely related to chronic obstructive pulmonary disease exacerbation. Steroid taper, bronchodilators, pulmonary followup. 3. Non-ST myocardial infarction, likely demand ischemia type 2. Cardiology is following. Medication optimized. 4. Sepsis, unknown source, possibly evolving pneumonia although impressed by the chest x-ray. Continue to monitor. 5. Elevated transaminases with the history of hepatitis C. fu abdominal imaging. ultrasound nondiagnostic sec to bowel gas. 6. Hyponatremia, likely related to total body water deficit. corrected wth ivf. CHELSIE RAMÍREZ MD Sep 17, 2018 08:36
[2018-09-17] MEDS: BUSPIRONE 10 MG TAB PO SCH ×2 (09:00→21:35)
[2018-09-17] MEDS: DOCUSATE SODIUM 100 MG CAP PO SCH ×2 (09:00→21:34)
--- NOTE | 2018-09-17 09:22 | PN ---
Date/Time of Note Date/Time of Note DATE: 09/17/18 TIME: 09:14 Assessment/Plan VTE Prophylaxis Risk score (from Ns)>0 risk: 5 SCD applied (from Ns): No SCD contraindicated: other Pharmacological prophylaxis: apixaban Lines/Catheters IV C[facility]ter Type (from [facility]): Peripheral IV Urinary Cath still in place: Yes Reason Cath still needed: urinary retention Assessment/Plan Hospital Course S: Patient now off BiPAP and on high flow oxygen since yesterday. Tolerating pured diet. More awake and alert. Patient complaining of some loose stool s/diarrhea however, no fevers. Patient found with MRSA positive of the nares, but has been on vancomycin. O: VS- see below PE: Gen: Lying in bed, more alert, on high flow oxygen via nasal cannula Head: Atraumatic Eyes: Normal Conjunctiva ENT: Normal External Ears, Nose and Mouth. Neck: Full range of motion. No meningismus. Resp: Clear to auscultation bilaterally Cardio: Regular rate and rhythm, no murmurs Abd: Soft, non tender, non distended. Normal bowel sounds Ext: No bilateral lower extremity edema Neuro: No focal deficits Assessment/Plan: 68-year-old female history COPD, PE May 2018, CKD, who presents with: 1. Hypoxic and hypercapnic respiratory failure: Most likely secondary to COPD exacerbation, with likely superimposed pneumonia given the chest x-ray findings. Slowly improving as she is off BiPAP now and on high flow oxygen -For now continue supplemental oxygen, bronchodilators, broad-spectrum antibiotics -DuoNebs, follow further recommendations from pulmonary consult 2. NSTEMI-First troponin 0.57. It was 0.407 in May of this year when she was diagnosed with PE, at that time she was diagnosed with a type II event. -Monitor serial troponin -Follow-up recommendations from cardiology consult -will consider VQ scan, apparently she was prescribed Eliquis when diagnosed with PE in May 2018, unclear if she has been compliant, thus we have restarted Eliquis cautiously now given the history of PE diagnosed in May 2018, renally dosed 3. Sepsis: Unknown source-although pneumonia is high on the differential. Agai n nares are positive for MRSA. Also waiting for UA results. Lactic acid was high on admission, trending down now. -Continue broad-spectrum IV antibiotic, monitor WBC which is trending down now but still elevated overall. -Follow-up culture results -Trend lactic acid continue IV fluids, Tylenol PRN pain and fevers 4. Acute renal insufficiency: Likely prerenal. Creatinine more elevated today at 2.75. Appreciate renal consult -For now continue D5W IV fluids -Renal ultrasound and follow-up further renal recommendations 5. Elevated transaminases: Found on admission. Trending down now, likely secondary to the septic shock patient came in with. Patient with a known history of hep C liver disease -Monitor -Abdominal imaging if worsening 6. Hypernatremia: Suspect from dehydration, resolving now -For now continue D5W IV fluids, consider later today switching to half- normal saline, monitor basic metabolic panel the a.m. Critical care time spent in patient care today equals 50 minutes. Result Diagram: 09/17/18 0509 09/17/18 0509 Results 24hrs Laboratory Tests Test 09/16/18 09:45 09/16/18 10:03 09/16/18 12:02 09/16/18 17:55 Blood Gas Blood arterial Specimen Source Arterial Blood 09/16/2018 10:00: Date Drawn 45 AM Arterial Blood pH 7.351 (Temp corrected) Arterial Blood 37.4 pCO2 (Temp correct) Arterial Blood 214.2 H pO2 (Temp corrected) Arterial Blood 20.2 L HCO3 Arterial Blood -4.8 L Base Excess Arterial Blood 99.3 H Oxygen Saturation Flip Test ACCEPTAB Arterial Blood Right Radial Gas Puncture Site Arterial 0.1 Blood Carboxyhemo globin Arterial Blood 0.2 Methemoglobin Blood Gas A-a O2 100.2 H Differential Oxyhemoglobin 99.0 Percent Blood Gas 37.0 Temperature Blood Gas 20.0 Respiration Rate Blood Gas Actual 31 Respiration Rate Blood Gas MASK - BIPAP Modality FiO2 50.0 Blood Gas 13 Pressure Support Blood Gas 18/5 IPAP/EPAP Ratio Blood Gas TM Notified Whom Blood Gas 09/16/2018 10:11: Notified Time 30 AM Lactic Acid Level 1.9 Troponin I 0.225 *H 0.146 *H Test 09/17/18 00:37 09/17/18 05:09 Troponin I 0.133 *H White Blood Count 14.3 H Red Blood Count 3.32 L Hemoglobin 10.1 L Hematocrit 32.1 L Mean Corpuscular 96.7 Volume Mean Corpuscular 30.4 Hemoglobin Mean Corpuscular 31.5 L Hemoglobin Concen t Red Cell 15.0 H Distribution Width Platelet Count 145 # Mean Platelet 12.1 H Volume Immature 1.000 H Granulocytes % Neutrophils % Lymphocytes % Monocytes % Eosinophils % Basophils % Nucleated Red 0.3 H Blood Cells % Immature 0.140 H Granulocytes # Neutrophils # Lymphocytes # Monocytes # Eosinophils # Basophils # Nucleated Red Blood Cells # Sodium Level 141 Potassium Level 2.9 *L Chloride Level 110 Carbon Dioxide 22 Level Anion Gap 9 Blood Urea 95 H Nitrogen Creatinine 2.75 H Est Glomerular 17 L Filtrat Rate mL/min Glucose Level 195 Calcium Level 7.2 L Phosphorus Level 3.8 Magnesium Level 2.2 Total Bilirubin 0.3 Direct Bilirubin 0.00 Indirect 0.3 Bilirubin Aspartate Amino 224 H Transf (AST/SGOT) Alanine 235 H Aminotransferase (ALT/SGPT) Alkaline 62 Phosphatase Total Protein 5.3 L Albumin 2.6 L Random Vancomycin 14.5 Level Exam/Review of Systems Exam Vitals Vital Signs Date Temp Pulse Resp B/P (MAP) Pulse Ox O2 O2 Flow FiO2 Time Delivery Rate 09/17/18 50 05:13 09/17/18 90 24 100 Nasal 05:12 Cannula 09/16/18 98.0 22:41 09/16/18 102/77 18:00 (85) Intake and Output 09/16/18 09/16/18 09/17/18 1515:00 23:00 07:00 IntakeIntake Total 1025 ml 495 ml OutputOutput Total 220 ml 135 ml BalanceBalance 805 ml 360 ml Results Results 24hrs Laboratory Tests Test 09/16/18 09:45 09/16/18 10:03 09/16/18 12:02 09/16/18 17:55 Blood Gas Blood arterial Specimen Source Arterial Blood 09/16/2018 10:00: Date Drawn 45 AM Arterial Blood pH 7.351 (Temp corrected) Arterial Blood 37.4 pCO2 (Temp correct) Arterial Blood 214.2 H pO2 (Temp corrected) Arterial Blood 20.2 L HCO3 Arterial Blood -4.8 L Base Excess Arterial Blood 99.3 H Oxygen Saturation Flip Test ACCEPTAB Arterial Blood Right Radial Gas Puncture Site Arterial 0.1 Blood Carboxyhemo globin Arterial Blood 0.2 Methemoglobin Blood Gas A-a O2 100.2 H Differential Oxyhemoglobin 99.0 Percent Blood Gas 37.0 Temperature Blood Gas 20.0 Respiration Rate Blood Gas Actual 31 Respiration Rate Blood Gas MASK - BIPAP Modality FiO2 50.0 Blood Gas 13 Pressure Support Blood Gas 18/5 IPAP/EPAP Ratio Blood Gas TM Notified Whom Blood Gas 09/16/2018 10:11: Notified Time 30 AM Lactic Acid Level 1.9 Troponin I 0.225 *H 0.146 *H Test 09/17/18 00:37 09/17/18 05:09 Troponin I 0.133 *H White Blood Count 14.3 H Red Blood Count 3.32 L Hemoglobin 10.1 L Hematocrit 32.1 L Mean Corpuscular 96.7 Volume Mean Corpuscular 30.4 Hemoglobin Mean Corpuscular 31.5 L Hemoglobin Concen t Red Cell 15.0 H Distribution Width Platelet Count 145 # Mean Platelet 12.1 H Volume Immature 1.000 H Granulocytes % Neutrophils % Lymphocytes % Monocytes % Eosinophils % Basophils % Nucleated Red 0.3 H Blood Cells % Immature 0.140 H Granulocytes # Neutrophils # Lymphocytes # Monocytes # Eosinophils # Basophils # Nucleated Red Blood Cells # Sodium Level 141 Potassium Level 2.9 *L Chloride Level 110 Carbon Dioxide 22 Level Anion Gap 9 Blood Urea 95 H Nitrogen Creatinine 2.75 H Est Glomerular 17 L Filtrat Rate mL/min Glucose Level 195 Calcium Level 7.2 L Phosphorus Level 3.8 Magnesium Level 2.2 Total Bilirubin 0.3 Direct Bilirubin 0.00 Indirect 0.3 Bilirubin Aspartate Amino 224 H Transf (AST/SGOT) Alanine 235 H Aminotransferase (ALT/SGPT) Alkaline 62 Phosphatase Total Protein 5.3 L Albumin 2.6 L Random Vancomycin 14.5 Level Medications Medication Current Medications IV Flush (NS 3 ml) 3 ml PER PROTOCOL IV ; Start 09/15/18 at 07:30 Ondansetron HCl (Zofran Inj) 4 mg Q6H PRN IV NAUSEA/VOMITING; Start 09/15/18 at 07:30 Acetaminophen (Tylenol Tab) 650 mg Q6H PRN PO .PAIN 1-3 OR TEMP Last administered on 09/16/18at 21:56; Admin Dose 650 MG; Start 09/15/18 at 07:30 Baclofen (Lioresal) 10 mg BID PO Last administered on 09/16/18at 21:26; Admin Dose 10 MG; Start 09/15/18 at 09:00 Buspirone HCl (Buspar) 10 mg BID PO Last administered on 09/16/18 21:25; Admin Dose 10 MG; Start 09/15/18 at 09:00 Calcium Carbonate (Oyster Shell Calcium) 1.25 gm BID PO Last administered on 09/16/18 21:26; Admin Dose 1.25 GM; Start 09/15/18 at 09:00 Clonazepam (Klonopin) 0.5 mg DAILY PRN PO ANXIETY Last administered on 09/16/18 21:55; Admin Dose 0.5 MG; Start 09/15/18 at 07:30 Docusate Sodium (Colace) 100 mg BID PO Last administered on 09/16/18 21:25; Admin Dose 100 MG; Start 09/15/18 at 09:00 Methadone HCl (Methadone Liq) 68 mg DAILY PO ; Start 09/15/18 at 09:00; Status UNV Rifaximin (Xifaxan) 550 mg BID PO Last administered on 09/16/18 21:26; Admin Dose 550 MG; Start 09/15/18 at 09:00 Sertraline HCl (Zoloft) 100 mg DAILY PO ; Start 09/15/18 at 09:00; Status Hold Fluticasone/ Vilanterol (Breo Ellipta 200-25 Mcg Inh) 1 inh DAILY INH Last administered on 09/15/18 09:00; Admin Dose 1 INH; Start 09/15/18 at 09:00 Methylprednisolone Sodium Succinate (Solu-Medrol) 60 mg DAILY IV Last administered on 09/16/18 09:16; Admin Dose 60 MG; Start 09/15/18 at 09:00 Albuterol/ Ipratropium (Duoneb) 3 ml Q3H RESP THERAPY PRN HHN WHEEZING AND SOB; Start 09/15/18 at 08:00 Vancomycin HCl (Vanco Iv Per Pharmacy) VANCOMYCIN PER PHARMACY PER PROTOCOL XX ; Start 09/15/18 at 09:00 Apixaban (Eliquis) 2.5 mg BID PO Last administered on 09/16/18 21:26; Admin Dose 2.5 MG; Start 09/15/18 at 21:00 Levalbuterol (Xopenex Neb) 0.63 mg Q4H RESP THERAPY HHN Last administered on 09/17/18at 05:12; Admin Dose 0.63 MG; Start 09/15/18 at 17:00 Levalbuterol (Xopenex Neb) 0.63 mg Q2H RESP THERAPY PRN HHN WHEEZING AND SOB; Start 09/15/18 at 14:00 Dextrose 1,000 ml @ 125 mls/hr Q8H IV Last administered on 09/16/18at 10:30; Admin Dose 125 MLS/HR; Start 09/16/18 at 10:30 Collagenase (Santyl) 1 applic DAILY TOP ; Start 09/16/18 at 15:00 Vancomycin HCl 100 ml @ 100 mls/hr Q48H IVPB ; Start 09/17/18 at 18:00 Piperacillin Sod/ Tazobactam Sod 50 ml @ 100 mls/hr Q6 IVPB ; Start 09/17/18 at 12:00 Famotidine (Pepcid Iv) 20 mg DAILY IV ; Start 09/18/18 at 09:00; Status UNV Potassium Chloride 100 ml @ 50 mls/hr ONCE ONCE IVPB ; Start 09/17/18 at 09:30; Stop 09/17/18 at 11:29; Status UNV STU ORTEZ Sep 17, 2018 09:22
[2018-09-17] MEDS ORDERED: POTASSIUM CHLORIDE 100 ML IVPB ONE (09:30)
[2018-09-17] MEDS: APIXABAN 5 MG TABLET PO SCH ×2 (10:20→21:34)
[2018-09-17] MEDS: BACLOFEN 10 MG TAB PO SCH ×2 (10:20→21:33)
[2018-09-17] MEDS: COLLAGENASE 5 GM (UD JAR) TOP SCH (10:20)
[2018-09-17] MEDS: METHYLPREDNISOLONE 125 MG INJ IV SCH (10:20)
[2018-09-17] MEDS: CALCIUM CARBONATE 1.25 GM TAB PO SCH ×2 (10:21→21:33)
[2018-09-17] MEDS: FLUTICASONE/VILANTEROL 200-25 INH DEVICE INH SCH (10:21)
[2018-09-17] MEDS: RIFAXIMIN 550 MG TAB PO SCH ×2 (10:21→21:33)
[2018-09-17] MEDS: BALSAM PERU/CASTOR OIL 60 GM TUBE TOP SCH ×2 (10:22→21:35)
[2018-09-17] MEDS: DEXTROSE 5% 1,000 ML IV SCH ×4 (10:24→18:30)
--- NOTE | 2018-09-17 10:38 | CONS ---
Consult Date/Type/Reason Admit Date/Time Sep 15, 2018 at 03:32 Initial Consult Date 09/15/18 Type of Consult Pulmonary Requesting Provider: GERALDO VARGAS MD Date/Time of Note DATE: 09/17/18 TIME: 10:37 Subjective Slowly improving. Transitioned to nasal cannula off high flow O2. Remains awake and alert Objective Vital Signs Date Temp Pulse Resp B/P (MAP) Pulse Ox O2 O2 Flow FiO2 Time Delivery Rate 09/17/18 50 05:13 09/17/18 90 24 100 Nasal 05:12 Cannula 09/16/18 98.0 22:41 09/16/18 102/77 18:00 (85) Intake and Output 09/16/18 09/16/18 09/17/18 1515:00 23:00 07:00 IntakeIntake Total 1025 ml 495 ml OutputOutput Total 220 ml 135 ml BalanceBalance 805 ml 360 ml Exam PHYSICAL EXAMINATION: GENERAL: Thin, elderly-appearing lady, appears comfortable at rest, no acute distress. VITAL SIGNS: NECK: Supple. JVD is not elevated. CARDIAC: S1, S2, no added sounds or murmurs. CHEST: Diminished air entry bilaterally. ABDOMEN: Soft, nontender. No guarding or rebound. EXTREMITIES: No cyanosis, clubbing, 1+ edema. NEUROLOGIC: Grossly intact. Vent Setting Fraction of Inspired Oxygen pe: 50 Results/Medications Result Diagram: 09/17/18 0509 09/17/18 0509 Results 24 hrs Laboratory Tests Test 09/16/18 12:02 09/16/18 17:55 09/17/18 00:37 09/17/18 05:09 Troponin I 0.225 *H 0.146 *H 0.133 *H White Blood Count 14.3 H Red Blood Count 3.32 L Hemoglobin 10.1 L Hematocrit 32.1 L Mean Corpuscular 96.7 Volume Mean Corpuscular 30.4 Hemoglobin Mean Corpuscular 31.5 L Hemoglobin Concent Red Cell 15.0 H Distribution Width Platelet Count 145 # Mean Platelet Volume 12.1 H Immature 1.000 H Granulocytes % Neutrophils % Lymphocytes % Monocytes % Eosinophils % Basophils % Nucleated Red Blood 0.3 H Cells % Immature 0.140 H Granulocytes # Neutrophils # Lymphocytes # Monocytes # Eosinophils # Basophils # Nucleated Red Blood Cells # Sodium Level 141 Potassium Level 2.9 *L Chloride Level 110 Carbon Dioxide Level 22 Anion Gap 9 Blood Urea Nitrogen 95 H Creatinine 2.75 H Est Glomerular 17 L Filtrat Rate mL/min Glucose Level 195 Calcium Level 7.2 L Phosphorus Level 3.8 Magnesium Level 2.2 Total Bilirubin 0.3 Direct Bilirubin 0.00 Indirect Bilirubin 0.3 Aspartate Amino 224 H Transf (AST/SGOT) Alanine 235 H Aminotransferase (AL T/SGPT) Alkaline Phosphatase 62 Total Protein 5.3 L Albumin 2.6 L Random Vancomycin 14.5 Level Medications Current Medications IV Flush (NS 3 ml) 3 ml PER PROTOCOL IV ; Start 09/15/18 at 07:30 Ondansetron HCl (Zofran Inj) 4 mg Q6H PRN IV NAUSEA/VOMITING; Start 09/15/18 at 07:30 Acetaminophen (Tylenol Tab) 650 mg Q6H PRN PO .PAIN 1-3 OR TEMP Last administered on 09/16/18 21:56; Admin Dose 650 MG; Start 09/15/18 at 07:30 Baclofen (Lioresal) 10 mg BID PO Last administered on 09/17/18 10:20; Admin Dose 10 MG; Start 09/15/18 at 09:00 Buspirone HCl (Buspar) 10 mg BID PO Last administered on 09/17/18 09:00; Admin Dose 10 MG; Start 09/15/18 at 09:00 Calcium Carbonate (Oyster Shell Calcium) 1.25 gm BID PO Last administered on 09/17/18 10:21; Admin Dose 1.25 GM; Start 09/15/18 at 09:00 Clonazepam (Klonopin) 0.5 mg DAILY PRN PO ANXIETY Last administered on 09/16/18 21:55; Admin Dose 0.5 MG; Start 09/15/18 at 07:30 Docusate Sodium (Colace) 100 mg BID PO Last administered on 09/16/18 21:25; Admin Dose 100 MG; Start 09/15/18 at 09:00 Methadone HCl (Methadone Liq) 68 mg DAILY PO ; Start 09/15/18 at 09:00; Status UNV Rifaximin (Xifaxan) 550 mg BID PO Last administered on 09/17/18 10:21; Admin Dose 550 MG; Start 09/15/18 at 09:00 Sertraline HCl (Zoloft) 100 mg DAILY PO ; Start 09/15/18 at 09:00; Status Hold Fluticasone/ Vilanterol (Breo Ellipta 200-25 Mcg Inh) 1 inh DAILY INH Last administered on 09/17/18 10:21; Admin Dose 1 INH; Start 09/15/18 at 09:00 Methylprednisolone Sodium Succinate (Solu-Medrol) 60 mg DAILY IV Last administered on 09/17/18 10:20; Admin Dose 60 MG; Start 09/15/18 at 09:00 Albuterol/ Ipratropium (Duoneb) 3 ml Q3H RESP THERAPY PRN HHN WHEEZING AND SOB; Start 09/15/18 at 08:00 Vancomycin HCl (Vanco Iv Per Pharmacy) VANCOMYCIN PER PHARMACY PER PROTOCOL XX ; Start 09/15/18 at 09:00 Apixaban (Eliquis) 2.5 mg BID PO Last administered on 09/17/18 10:20; Admin Dose 2.5 MG; Start 09/15/18 at 21:00 Levalbuterol (Xopenex Neb) 0.63 mg Q4H RESP THERAPY HHN Last administered on 09/17/18at 10:15; Admin Dose 0.63 MG; Start 09/15/18 at 17:00 Levalbuterol (Xopenex Neb) 0.63 mg Q2H RESP THERAPY PRN HHN WHEEZING AND SOB; Start 09/15/18 at 14:00 Dextrose 1,000 ml @ 125 mls/hr Q8H IV Last administered on 09/17/18at 10:24; Admin Dose 125 MLS/HR; Start 09/16/18 at 10:30 Collagenase (Santyl) 1 applic DAILY TOP Last administered on 09/17/18 10:20; Admin Dose 1 APPLIC; Start 09/16/18 at 15:00 Vancomycin HCl 100 ml @ 100 mls/hr Q48H IVPB ; Start 09/17/18 at 18:00 Piperacillin Sod/ Tazobactam Sod 50 ml @ 100 mls/hr Q6 IVPB ; Start 09/17/18 at 12:00 Famotidine (Pepcid Iv) 20 mg DAILY IV ; Start 09/18/18 at 09:00 Potassium Chloride 100 ml @ 50 mls/hr ONCE ONCE IVPB Last administered on 7/20/19at 10:24; Admin Dose 50 MLS/HR; Start 09/17/18 at 09:30; Stop 09/17/18 at 11:29 Insulin Aspart (Novolog Insulin Pen) NOVOLOG *MILD* ALGORITHM WITH MEALS BEDTIME SC ; Start 09/17/18 at 11:30 Assessment/Plan Hospital Course (Demo Recall) IMPRESSION 1. Likely demand ischemia type 2, non-ST elevation myocardial infarction. No significant right heart failure on echocardiogram 2. Chronic obstructive pulmonary disease with acute exacerbation. 3. Underlying psychiatric disorder. 4. Dehydration and renal insufficiency. 5. History of venous thromboembolism Plan 1. IV fluids. 2. Bronchodilators. 3. Supplemental O2. 4. Steroid taper. 5. Continue Eliquis anticoagulation 6. DVT and GI prophylaxis. 7. PT eval encourage out of bed EMMA STEINBERG MD, [facility] Sep 17, 2018 10:38
[2018-09-17] MEDS: PIPER-TAZO 2.25 GM/NS 50 ML IVPB SCH ×3 (13:25→23:57)
[2018-09-17] MEDS: INSULIN ASPART [NOVOLOG] 3 ML PEN SC SCH ×3 (13:35→22:17)
[2018-09-17] MEDS: HYDROCODONE/APAP (5/325) TAB PO PRN ×3 (15:26→23:57)
[2018-09-17] MEDS ORDERED: VANCOMYCIN 500 MG (PMX) 100 ML IVPB SCH ×2 (18:00)
--- NOTE | 2018-09-17 19:59 | CONS ---
Assessment/Plan Assessment/Plan Hospital Course (Demo Recall) Acute respiratory failure: Currently being treated for COPD exacerbation. Echo does not show obvious RV dysfunction but recurrent PE is not excluded NSTEMI: trops 0.5 and trended down. Type II vs ?recurrent PE History of PE: diagnosed 05/2018. ?Recurrence COPD with acute exacerbation Acute renal failure: worse even with IVF Transaminitis: stable 300s Pulm HTN: PAP 60s 06/17. 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 Weaned from BiPAP to nasal canula. Detailed Summary Additional Comments 14 point review of systems without changes. Exam/Review of Systems Vital Signs Vitals Vital Signs Date Temp Pulse Resp B/P (MAP) Pulse Ox O2 O2 Flow FiO2 Time Delivery Rate 09/17/18 98 22 111/65 100 Nasal 19:00 (80) Cannula 09/17/18 97.8 1.0 17:00 09/17/18 27 14:30 Intake and Output 09/16/18 09/16/18 09/17/18 1515:00 23:00 07:00 IntakeIntake Total 1025 ml 495 ml OutputOutput Total 220 ml 135 ml BalanceBalance 805 ml 360 ml Exam Exam Constitutional: alert, distress Head: normocephalic, atraumatic Neck: jvd (8cm) Respiratory: crackles/rales (mild at bases), diminished breath sounds; No clear to auscultation Cardiovascular: systolic murmur (2/6 TAMMY); No regular rate and rhythm, No edema Gastrointestinal: soft, non-tender; No distended Neurological: nl mental status; No nl speech Labs Result Diagram: 09/17/18 0509 09/17/18 0509 Results 24hrs Laboratory Tests Test 09/17/18 00:37 09/17/18 05:09 09/17/18 07:00 09/17/18 10:36 Troponin I 0.133 *H 0.066 White Blood Count 14.3 H Red Blood Count 3.32 L Hemoglobin 10.1 L Hematocrit 32.1 L Mean Corpuscular 96.7 Volume Mean Corpuscular 30.4 Hemoglobin Mean Corpuscular 31.5 L Hemoglobin Concen t Red Cell 15.0 H Distribution Width Platelet Count 145 # Mean Platelet 12.1 H Volume Immature 1.000 H Granulocytes % Neutrophils % Segmented 38 L Neutrophils % (Manual) Band Neutrophils 38 H % (Manual) Lymphocytes % Lymphocytes % 14 L (Manual) Reactive 4 H Lymphocytes % (Manual) Monocytes % Monocytes % 5 (Manual) Eosinophils % Basophils % Myelocytes % 1 H (Manual) Nucleated Red 1 H Blood Cells % Immature 0.140 H Granulocytes # Neutrophils # Neutrophils # 6.2 (Manual) Band Neutrophils 5.4 H # Lymphocytes 2.0 (Manual) Lymphocytes # Reactive 0.5 H Lymphocytes # Monocytes # Monocytes # 0.7 (Manual) Eosinophils # Basophils # Myelocytes # 0.1 H Nucleated Red Blood Cells # Platelet Estimate NORMAL Giant Platelets 4 H Poikilocytosis 3+ Anisocytosis 2+ Macrocytosis 2+ Echinocytes 3+ Sodium Level 141 Potassium Level 2.9 *L Chloride Level 110 Carbon Dioxide 22 Level Anion Gap 9 Blood Urea 95 H Nitrogen Creatinine 2.75 H Est Glomerular 17 L Filtrat Rate mL/min Glucose Level 195 Calcium Level 7.2 L Phosphorus Level 3.8 Magnesium Level 2.2 Total Bilirubin 0.3 Direct Bilirubin 0.00 Indirect 0.3 Bilirubin Aspartate Amino 224 H Transf (AST/SGOT) Alanine 235 H Aminotransferase (ALT/SGPT) Alkaline 62 Phosphatase Total Protein 5.3 L Albumin 2.6 L Random Vancomycin 14.5 Level Blood Gas Blood arterial Specimen Source Arterial Blood 09/17/2018 4:20:5 Date Drawn 8 PM Arterial Blood pH 7.439 (Temp corrected) Arterial Blood 30.9 L pCO2 (Temp correct) Arterial Blood 105.4 H pO2 (Temp corrected) Arterial Blood 20.5 L HCO3 Arterial Blood -2.9 Base Excess Arterial Blood 98.2 H Oxygen Saturation Flip Test ACCEPTAB Arterial Blood Right Radial Gas Puncture Site Arterial 0.1 Blood Carboxyhemo globin Arterial Blood 0.1 Methemoglobin Blood Gas A-a O2 29.0 H Differential Oxyhemoglobin 98.0 Percent Blood Gas 37.0 Temperature Blood Gas NASAL CANNULA Modality FiO2 24.0 Blood Gas MMartins RN Critical Value Read Back Blood Gas Jason ABSTRACT MANAGER Notified Whom Blood Gas 09/17/2018 4:40:3 Notified Time 6 PM Test 09/17/18 12:32 09/17/18 17:04 09/17/18 18:37 Bedside Glucose 225 H 172 Troponin I 0.050 Medications Medications Current Medications IV Flush (NS 3 ml) 3 ml PER PROTOCOL IV ; Start 09/15/18 at 07:30 Ondansetron HCl (Zofran Inj) 4 mg Q6H PRN IV NAUSEA/VOMITING; Start 09/15/18 at 07:30 Acetaminophen (Tylenol Tab) 650 mg Q6H PRN PO .PAIN 1-3 OR TEMP Last administered on 09/16/18 21:56; Admin Dose 650 MG; Start 09/15/18 at 07:30 Baclofen (Lioresal) 10 mg BID PO Last administered on 09/17/18 10:20; Admin Dose 10 MG; Start 09/15/18 at 09:00 Buspirone HCl (Buspar) 10 mg BID PO Last administered on 09/17/18 09:00; Admin Dose 10 MG; Start 09/15/18 at 09:00 Calcium Carbonate (Oyster Shell Calcium) 1.25 gm BID PO Last administered on 09/17/18 10:21; Admin Dose 1.25 GM; Start 09/15/18 at 09:00 Clonazepam (Klonopin) 0.5 mg DAILY PRN PO ANXIETY Last administered on 09/16/18 21:55; Admin Dose 0.5 MG; Start 09/15/18 at 07:30 Docusate Sodium (Colace) 100 mg BID PO Last administered on 09/16/18 21:25; Admin Dose 100 MG; Start 09/15/18 at 09:00 Rifaximin (Xifaxan) 550 mg BID PO Last administered on 09/17/18 10:21; Admin Dose 550 MG; Start 09/15/18 at 09:00 Sertraline HCl (Zoloft) 100 mg DAILY PO ; Start 09/15/18 at 09:00; Status Hold Fluticasone/ Vilanterol (Breo Ellipta 200-25 Mcg Inh) 1 inh DAILY INH Last administered on 09/17/18 10:21; Admin Dose 1 INH; Start 09/15/18 at 09:00 Methylprednisolone Sodium Succinate (Solu-Medrol) 60 mg DAILY IV Last administered on 09/17/18 10:20; Admin Dose 60 MG; Start 09/15/18 at 09:00 Albuterol/ Ipratropium (Duoneb) 3 ml Q3H RESP THERAPY PRN HHN WHEEZING AND SOB; Start 09/15/18 at 08:00 Vancomycin HCl (Vanco Iv Per Pharmacy) VANCOMYCIN PER PHARMACY PER PROTOCOL XX ; Start 09/15/18 at 09:00 Apixaban (Eliquis) 2.5 mg BID PO Last administered on 09/17/18 10:20; Admin Dose 2.5 MG; Start 09/15/18 at 21:00 Levalbuterol (Xopenex Neb) 0.63 mg Q4H RESP THERAPY HHN Last administered on 09/17/18 17:48; Admin Dose 0.63 MG; Start 09/15/18 at 17:00 Levalbuterol (Xopenex Neb) 0.63 mg Q2H RESP THERAPY PRN HHN WHEEZING AND SOB; Start 09/15/18 at 14:00 Dextrose 1,000 ml @ 125 mls/hr Q8H IV Last administered on 09/17/18at 16:55; Admin Dose 125 MLS/HR; Start 09/16/18 at 10:30 Collagenase (Santyl) 1 applic DAILY TOP Last administered on 09/17/18 10:20; Admin Dose 1 APPLIC; Start 09/16/18 at 15:00 Vancomycin HCl 100 ml @ 100 mls/hr Q48H IVPB Last administered on 09/17/18at 19:02; Admin Dose 100 MLS/HR; Start 09/17/18 at 18:00 Piperacillin Sod/ Tazobactam Sod 50 ml @ 100 mls/hr Q6 IVPB Last administered on 09/17/18 19:02; Admin Dose 100 MLS/HR; Start 09/17/18 at 12:00 Famotidine (Pepcid Iv) 20 mg DAILY IV ; Start 09/18/18 at 09:00 Insulin Aspart (Novolog Insulin Pen) NOVOLOG *MILD* ALGORITHM WITH MEALS BEDTIME SC Last administered on 09/17/18at 18:44; Admin Dose 1 UNIT; Start 09/17/18 at 11:30 Acetaminophen/ Hydrocodone Bitart ([place] (5/325)) 1 tab Q6H PRN PO MODERATE PAIN LEVEL 4-6 Last administered on 09/17/18at 15:30; Admin Dose 1 TAB; Start 09/17/18 at 11:30 Methadone HCl (Methadone Liq) 15 mg Q8 PRN PO SEVERE PAIN; Start 09/17/18 at 18:30 RENETTA MCKEON MD Sep 17, 2018 19:59
[2018-09-17] MEDS: clonAZEPAM 0.5 MG TAB PO PRN (21:35)
[2018-09-17] MEDS: METHADONE (1 MG/ML 5 ML PO UD SYG) PO PRN (21:38)
[2018-09-18] VITALS (24 sets, daily range): BP systolic 101–142; BP diastolic 56–102; PULSE 78–109; RESP 16–31
[2018-09-18] MEDS: LEVALBUTEROL (NEB) 0.63 MG/3 ML AMP HHN SCH ×6 (01:19→20:39)
[2018-09-18] MEDS: DEXTROSE 5% 1,000 ML IV SCH (05:10)
[2018-09-18] MEDS: PIPER-TAZO 2.25 GM/NS 50 ML IVPB SCH ×3 (05:11→19:24)
--- NOTE | 2018-09-18 07:22 | CONS ---
Consult Date/Type/Reason Admit Date/Time Sep 15, 2018 at 03:32 Initial Consult Date 09/15/18 Date/Time of Note DATE: 09/18/18 TIME: 07:17 Subjective 68-year-old female with the past medical history of COPD, history of previous PE, psychiatric disorder, chronic kidney disease, hepatitis C, liver disease who was brought in the ER after noticing dyspnea progressively worse and requires to be on BiPAP. On admission, the patient has been weaned down. On the course of the workup, was noted to have renal failure. The patient has had other admissions here with no previous acute renal failure incidents. She continues to have good urine output since she has been here. Patient weaned down to high flow O2 On steroids, IVF D5W @ 125 ML/HR PHYSICAL EXAMINATION: HEENT: Normocephalic, atraumatic. Pupils are equal, round, reactive to light. Oropharynx has moist mucous membranes. NECK: Supple. HEART: Regular rate and rhythm. LUNGS: Clear to auscultation. ABDOMEN: Soft, nontender, nondistended. Normal bowel sounds. EXTREMITIES: No clubbing, cyanosis or edema. Objective Vitals Vital Signs Date Temp Pulse Resp B/P (MAP) Pulse Ox O2 O2 Flow FiO2 Time Delivery Rate 09/18/18 83 25 125/63 Nasal 06:00 (83) Cannula 09/18/18 100 2.0 05:25 09/18/18 98.5 04:00 09/17/18 24 21:34 Intake and Output 09/17/18 09/17/18 09/18/18 1515:00 23:00 07:00 IntakeIntake Total 100 ml 985 ml 1300 ml OutputOutput Total 150 ml 330 ml 415 ml BalanceBalance -50 ml 655 ml 885 ml Results/Medications Result Diagram: 09/18/18 0453 09/18/18 0453 Results 24 hrs Laboratory Tests Test 09/17/18 10:36 09/17/18 12:32 09/17/18 17:04 09/17/18 18:37 Troponin I 0.066 0.050 Bedside Glucose 225 H 172 Test 09/17/18 22:14 09/18/18 00:54 09/18/18 04:53 Bedside Glucose 223 H Troponin I 0.049 White Blood Count 19.4 #H Red Blood Count 3.06 L Hemoglobin 9.3 L Hematocrit 29.5 L Mean Corpuscular 96.4 Volume Mean Corpuscular 30.4 Hemoglobin Mean Corpuscular 31.5 L Hemoglobin Concent Red Cell 15.2 H Distribution Width Platelet Count 161 Mean Platelet Volume 12.2 H Immature 0.900 H Granulocytes % Neutrophils % Lymphocytes % Monocytes % Eosinophils % Basophils % Nucleated Red Blood 0.3 H Cells % Immature 0.180 H Granulocytes # Neutrophils # Lymphocytes # Monocytes # Eosinophils # Basophils # Nucleated Red Blood Cells # Sodium Level 143 Potassium Level 3.0 L Chloride Level 109 Carbon Dioxide Level 26 Anion Gap 8 Blood Urea Nitrogen 69 H Creatinine 1.56 #H Est Glomerular 33 L Filtrat Rate mL/min Glucose Level 185 Calcium Level 8.2 L Phosphorus Level 2.5 Magnesium Level 2.1 Total Bilirubin 0.3 Direct Bilirubin 0.00 Indirect Bilirubin 0.3 Aspartate Amino 146 H Transf (AST/SGOT) Alanine 222 H Aminotransferase (AL T/SGPT) Alkaline Phosphatase 61 Total Protein 5.2 L Albumin 2.5 L Globulin 2.70 Albumin/Globulin 0.92 Ratio Home Meds Active Scripts Pantoprazole* (Pantoprazole*) 40 Mg Tablet.dr, 40 MG PO DAILY@06 for 14 Days, #14 Prov:RICKIE DALTON MD 06/12/18 Apixaban* (Eliquis*) 5 Mg Tablet, 10 MG PO BID for 30 Days, #60 TAB 10 mg twice daily for 5 days, then 5 mg twice daily Prov:RICKIE DALTON MD 06/12/18 Methadone Hcl* (Methadone*) 5 Mg/5 Ml Solution, 68 MG PO DAILY for 30 Days, ML Prov:STU ORTEZ 04/14/18 Salmeterol Xinaf/Fluticasone* (Advair*) 250-50 Diskus Inhaler, 1 INH INHALATION BID for 30 Days, #1 INHALER Prov:ZHANG WARE NP 02/28/16 Albuterol Sulfate* (Proair HFA*) 8.5 Gm Hfa.aer.ad, 2 PUFF INH Q6 for SHORTNESS OF BREATH for 14 Days, #1 INHALER Prov:ZHANG WARE NP 02/28/16 Reported Medications Sertraline Hcl* (Sertraline Hcl*) 25 Mg Tablet, 25 MG PO DAILY, #30 TAB 09/15/18 Buspirone Hcl* (Buspirone Hcl*) 10 Mg Tab, 10 MG PO BID, TAB 09/15/18 Clonazepam* (Clonazepam*) 0.5 Mg Tablet, 0.5 MG PO DAILY PRN for ANXIETY, TAB 09/15/18 Ipratropium-Albuterol (Ipratropium-Albuterol) 0.5-3 Mg/3 Ml Ampul.neb, 3 ML INHALATION Q6 PRN for WHEEZING AND SOB, #30 VIAL 09/15/18 Carvedilol* (Carvedilol*) 6.25 Mg Tablet, 6.25 MG PO BID, #60 TAB 09/15/18 Cholecalciferol (Vitamin D3) (VITAMIN D-3) 2,000 Unit Capsule, 2000 U PO DAILY for 30 Days 04/30/18 Amlodipine Besylate* (Amlodipine Besylate*) 5 Mg Tablet, 5 MG PO DAILY for 30 Days, #30 04/30/18 Baclofen* (Baclofen*) 10 Mg Tablet, 10 MG PO BID 04/30/18 Calcium Carbonate (Vvro-Bjd-248) 500 Mg Tablet, 500 MG PO BID, TAB 04/30/18 Discontinued Reported Medications Docusate Sodium* (Docusate Sodium*) 100 Mg Capsule, 100 MG PO BID, #60 CAP 04/30/18 Discontinued Scripts Oxymetazoline Hcl* (Afrin [place]*) 0.05% - 15 Ml [place], 2 SPRAY NASAL BID for 7 Days, #1 SPRAY 2 Refills Prov:RICKIE DALTON MD 06/12/18 Lactulose* (Lactulose*) 20 Gm/30 Ml Solution, 30 GM PO Q8 for 14 Days, #14 1 Refill Pharmacy: Dispensed 2-week supply with 1 refill Prov:RICKIE DALTON MD 06/12/18 Acetaminophen* (Tylenol*) 325 Mg Tablet, 650 MG PO Q6H PRN for .PAIN 1-3 OR TEMP for 7 Days, TAB Prov:RICKIE DALTON MD 06/12/18 Rifaximin* (Xifaxan*) 550 Mg Tablet, 550 MG PO BID for 14 Days, #30 TAB Prov:RICKIE DALTON MD 4/14/19 Loperamide Hcl* (Imodium*) 2 Mg Capsule, 2 MG PO .AFTER EA LOOSE BM PRN for DIARRHEA, #10 TAB Prov:ADAMS MAK MD 04/30/18 Ondansetron (Ondansetron Odt) 4 Mg Tab.rapdis, 4 MG PO Q6H PRN for NAUSEA AND/OR VOMITING, #10 TAB Prov:ADAMS MAK MD 04/30/18 Hydroxyzine Hcl* (Hydroxyzine Hcl*) 10 Mg Tablet, 10 MG PO TID, #20 TAB Prov:CASA RIOJAS MD 01/10/18 Sertraline Hcl* (Sertraline Hcl*) 100 Mg Tablet, 100 MG PO DAILY for 30 Days, TAB Prov:ZHANG WARE NP 02/28/16 Medications Current Medications IV Flush (NS 3 ml) 3 ml PER PROTOCOL IV ; Start 09/15/18 at 07:30 Ondansetron HCl (Zofran Inj) 4 mg Q6H PRN IV NAUSEA/VOMITING; Start 09/15/18 at 07:30 Acetaminophen (Tylenol Tab) 650 mg Q6H PRN PO .PAIN 1-3 OR TEMP Last administered on 09/16/18 21:56; Admin Dose 650 MG; Start 09/15/18 at 07:30 Baclofen (Lioresal) 10 mg BID PO Last administered on 09/17/18 21:33; Admin Dose 10 MG; Start 09/15/18 at 09:00 Buspirone HCl (Buspar) 10 mg BID PO Last administered on 09/17/18 21:35; Admin Dose 10 MG; Start 09/15/18 at 09:00 Calcium Carbonate (Oyster Shell Calcium) 1.25 gm BID PO Last administered on 09/17/18 21:33; Admin Dose 1.25 GM; Start 09/15/18 at 09:00 Clonazepam (Klonopin) 0.5 mg DAILY PRN PO ANXIETY Last administered on 09/17/18 21:35; Admin Dose 0.5 MG; Start 09/15/18 at 07:30 Docusate Sodium (Colace) 100 mg BID PO Last administered on 09/17/18 21:34; Admin Dose 100 MG; Start 09/15/18 at 09:00 Rifaximin (Xifaxan) 550 mg BID PO Last administered on 09/17/18 21:33; Admin Dose 550 MG; Start 09/15/18 at 09:00 Sertraline HCl (Zoloft) 100 mg DAILY PO ; Start 09/15/18 at 09:00; Status Hold Fluticasone/ Vilanterol (Breo Ellipta 200-25 Mcg Inh) 1 inh DAILY INH Last administered on 09/17/18 10:21; Admin Dose 1 INH; Start 09/15/18 at 09:00 Methylprednisolone Sodium Succinate (Solu-Medrol) 60 mg DAILY IV Last administered on 09/17/18 10:20; Admin Dose 60 MG; Start 09/15/18 at 09:00 Albuterol/ Ipratropium (Duoneb) 3 ml Q3H RESP THERAPY PRN HHN WHEEZING AND SOB; Start 09/15/18 at 08:00 Vancomycin HCl (Vanco Iv Per Pharmacy) VANCOMYCIN PER PHARMACY PER PROTOCOL XX ; Start 09/15/18 at 09:00 Apixaban (Eliquis) 2.5 mg BID PO Last administered on 09/17/18 21:34; Admin Dose 2.5 MG; Start 09/15/18 at 21:00 Levalbuterol (Xopenex Neb) 0.63 mg Q4H RESP THERAPY HHN Last administered on 09/18/18 05:24; Admin Dose 0.63 MG; Start 09/15/18 at 17:00 Levalbuterol (Xopenex Neb) 0.63 mg Q2H RESP THERAPY PRN HHN WHEEZING AND SOB; Start 09/15/18 at 14:00 Dextrose 1,000 ml @ 125 mls/hr Q8H IV Last administered on 09/18/18at 05:10; Admin Dose 125 MLS/HR; Start 09/16/18 at 10:30 Collagenase (Santyl) 1 applic DAILY TOP Last administered on 09/17/18 10:20; Admin Dose 1 APPLIC; Start 09/16/18 at 15:00 Vancomycin HCl 100 ml @ 100 mls/hr Q48H IVPB Last administered on 09/17/18 19:02; Admin Dose 100 MLS/HR; Start 09/17/18 at 18:00 Piperacillin Sod/ Tazobactam Sod 50 ml @ 100 mls/hr Q6 IVPB Last administered on 7/21/19at 05:11; Admin Dose 100 MLS/HR; Start 09/17/18 at 12:00 Famotidine (Pepcid Iv) 20 mg DAILY IV ; Start 09/18/18 at 09:00 Insulin Aspart (Novolog Insulin Pen) NOVOLOG *MILD* ALGORITHM WITH MEALS BEDTIME SC Last administered on 09/17/18 22:17; Admin Dose 3 UNIT; Start 09/17/18 at 11:30 Acetaminophen/ Hydrocodone Bitart ([place] (5/325)) 1 tab Q6H PRN PO MODERATE PAIN LEVEL 4-6 Last administered on 09/17/18at 23:57; Admin Dose 1 TAB; Start 09/17/18 at 11:30 Methadone HCl (Methadone Liq) 15 mg Q8 PRN PO SEVERE PAIN Last administered on 09/17/18at 21:38; Admin Dose 15 MG; Start 09/17/18 at 18:30 Assessment/Plan Hospital Course (Demo Recall) 1. Acute renal insufficiency, possibly vasomotor nephropathy, rule out acute tubular necrosis, obstructive uropathy, or interstitial cystitis. - stabilized and improving at good interval.. cont on ivf as ordered. - fu urine studies, - ultrasound nondiagnostic due to bowel gas. further imaging once more stable. - Avoid nephrotoxins. All medications are dosed appropriately for renal f unction. 2. Acute respiratory failure, likely related to chronic obstructive pulmonary disease exacerbation. Steroid taper, bronchodilators, pulmonary followup. 3. Non-ST myocardial infarction, likely demand ischemia type 2. Cardiology is following. Medication optimized. 4. Sepsis, unknown source, possibly evolving pneumonia although impressed by the chest x-ray. Continue to monitor. 5. Elevated transaminases with the history of hepatitis C. fu abdominal imaging. ultrasound nondiagnostic sec to bowel gas. 6. Hyponatremia, likely related to total body water deficit. corrected wth ivf. CHELSIE RAMÍREZ MD Sep 18, 2018 07:22
[2018-09-18] MEDS: INSULIN ASPART [NOVOLOG] 3 ML PEN SC SCH ×4 (07:49→21:00)
[2018-09-18] MEDS: POTASSIUM CHLORIDE 100 ML IVPB SCH ×2 (08:03→10:37)
[2018-09-18] MEDS: METHADONE (1 MG/ML 5 ML PO UD SYG) PO PRN (08:17)
[2018-09-18] MEDS: METHYLPREDNISOLONE 125 MG INJ IV SCH (08:20)
[2018-09-18] MEDS: FAMOTIDINE 20 MG INJ IV SCH (08:20)
[2018-09-18] MEDS: RIFAXIMIN 550 MG TAB PO SCH ×2 (08:21→21:13)
[2018-09-18] MEDS: APIXABAN 5 MG TABLET PO SCH ×2 (08:21→21:14)
[2018-09-18] MEDS: DOCUSATE SODIUM 100 MG CAP PO SCH ×2 (08:21→21:13)
[2018-09-18] MEDS: BACLOFEN 10 MG TAB PO SCH ×2 (08:21→21:13)
[2018-09-18] MEDS: CALCIUM CARBONATE 1.25 GM TAB PO SCH ×2 (08:21→21:14)
[2018-09-18] MEDS: FLUTICASONE/VILANTEROL 200-25 INH DEVICE INH SCH (08:22)
[2018-09-18] MEDS: COLLAGENASE 5 GM (UD JAR) TOP SCH (08:22)
[2018-09-18] MEDS: BALSAM PERU/CASTOR OIL 60 GM TUBE TOP SCH ×2 (08:22→21:26)
[2018-09-18] MEDS: BUSPIRONE 10 MG TAB PO SCH ×2 (09:11→21:23)
--- NOTE | 2018-09-18 09:31 | PN ---
Date/Time of Note Date/Time of Note DATE: 09/18/18 TIME: 09:23 Assessment/Plan VTE Prophylaxis Risk score (from Ns)>0 risk: 17 SCD applied (from [facility] [place]): No SCD contraindicated: other Pharmacological prophylaxis: apixaban Lines/Catheters IV Catheter Type (from [facility]): Peripheral IV Urinary Cath still in place: Yes Reason Cath still needed: urinary retention Assessment/Plan Hospital Course S: Patient has improved respiratory status on 2 L nasal cannula with good saturations. Had some vomiting symptoms this morning. Seen by renal team this morning. Tolerating pured diet. O: VS- see below PE: Gen: Lying in bed, more alert, on oxygen supplementation via nasal cannula Head: Atraumatic Eyes: Normal Conjunctiva ENT: Normal External Ears, Nose and Mouth. Neck: Full range of motion. No meningismus. Resp: Clear to auscultation bilaterally Cardio: Regular rate and rhythm, no murmurs Abd: Soft, non tender, non distended. Normal bowel sounds Ext: No bilateral lower extremity edema Neuro: No focal deficits Assessment/Plan: 68-year-old female history COPD, PE May 2018, CKD, who presents with: 1. Hypoxic and hypercapnic respiratory failure: Slowly improving, most likely secondary to COPD exacerbation, with likely superimposed pneumonia given the chest x-ray findings. -For now continue supplemental oxygen, bronchodilators, broad-spectrum antibiotics -DuoNebs, follow further recommendations from pulmonary consult -Have change methadone to a lower dose and also to as needed status given the respiratory failure patient presented with, continue cautiously -For now cautiously continue pured diet, will obtain PT eval 2. NSTEMI-First troponin 0.57. It was 0.407 in May of this year when she was diagnosed with PE, at that time she was diagnosed with a type II event. -Monitor serial troponin -Follow-up recommendations from cardiology consult -will consider VQ scan, apparently she was prescribed Eliquis when diagnosed with PE in May 2018, unclear if she has been compliant, thus we have restarted Eliquis cautiously now given the history of PE diagnosed in May 2018, renally dosed 3. Sepsis: Unknown source-although pneumonia is high on the differential. Again nares are positive for MRSA. Also waiting for UA results. Lactic acid was high on admission, trending down now. -Continue broad-spectrum IV antibiotics, monitor WBC (more elevated today, but no fevers, likely secondary to IV steroids patient is been getting) -Follow-up final culture results -continue IV fluids, Tylenol PRN pain and fevers 4. Acute renal insufficiency: Likely prerenal. Creatinine much improved in the last 24 hours, patient has adequate urine output. Renal team on the case. -For now continue half-normal saline IV fluids -follow-up further renal recommendations 5. Elevated transaminases: Found on admission. Trending down now, likely secondary to the septic shock patient came in with. Patient with a known history of hep C liver disease -Monitor 6. Hypernatremia: Resolved now, suspect from dehydration -We will stop D5W IV fluids, and switch to half-normal saline, monitor basic metabolic panel the a.m. Critical care time spent in patient care today equals 45 minutes. Result Diagram: 09/18/18 0453 09/18/18 0453 Results 24hrs Laboratory Tests Test 09/17/18 10:36 09/17/18 12:32 09/17/18 17:04 09/17/18 18:37 Troponin I 0.066 0.050 Bedside Glucose 225 H 172 Test 09/17/18 22:14 09/18/18 00:54 09/18/18 04:53 09/18/18 07:39 Bedside Glucose 223 H 186 Troponin I 0.049 White Blood Count 19.4 #H Red Blood Count 3.06 L Hemoglobin 9.3 L Hematocrit 29.5 L Mean Corpuscular 96.4 Volume Mean Corpuscular 30.4 Hemoglobin Mean Corpuscular 31.5 L Hemoglobin Concent Red Cell 15.2 H Distribution Width Platelet Count 161 Mean Platelet Volume 12.2 H Immature 0.900 H Granulocytes % Neutrophils % Lymphocytes % Monocytes % Eosinophils % Basophils % Nucleated Red Blood 0.3 H Cells % Immature 0.180 H Granulocytes # Neutrophils # Lymphocytes # Monocytes # Eosinophils # Basophils # Nucleated Red Blood Cells # Sodium Level 143 Potassium Level 3.0 L Chloride Level 109 Carbon Dioxide Level 26 Anion Gap 8 Blood Urea Nitrogen 69 H Creatinine 1.56 #H Est Glomerular 33 L Filtrat Rate mL/min Glucose Level 185 Calcium Level 8.2 L Phosphorus Level 2.5 Magnesium Level 2.1 Total Bilirubin 0.3 Direct Bilirubin 0.00 Indirect Bilirubin 0.3 Aspartate Amino 146 H Transf (AST/SGOT) Alanine 222 H Aminotransferase (AL T/SGPT) Alkaline Phosphatase 61 Total Protein 5.2 L Albumin 2.5 L Globulin 2.70 Albumin/Globulin 0.92 Ratio Exam/Review of Systems Exam Vitals Vital Signs Date Temp Pulse Resp B/P (MAP) Pulse Ox O2 O2 Flow FiO2 Time Delivery Rate 09/18/18 83 25 125/63 Nasal 06:00 (83) Cannula 09/18/18 100 2.0 05:25 09/18/18 98.5 04:00 09/17/18 24 21:34 Intake and Output 09/17/18 09/17/18 09/18/18 1515:00 23:00 07:00 IntakeIntake Total 100 ml 985 ml 1300 ml OutputOutput Total 150 ml 330 ml 415 ml BalanceBalance -50 ml 655 ml 885 ml Results Results 24hrs Laboratory Tests Test 09/17/18 10:36 09/17/18 12:32 09/17/18 17:04 09/17/18 18:37 Troponin I 0.066 0.050 Bedside Glucose 225 H 172 Test 09/17/18 22:14 09/18/18 00:54 09/18/18 04:53 09/18/18 07:39 Bedside Glucose 223 H 186 Troponin I 0.049 White Blood Count 19.4 #H Red Blood Count 3.06 L Hemoglobin 9.3 L Hematocrit 29.5 L Mean Corpuscular 96.4 Volume Mean Corpuscular 30.4 Hemoglobin Mean Corpuscular 31.5 L Hemoglobin Concent Red Cell 15.2 H Distribution Width Platelet Count 161 Mean Platelet Volume 12.2 H Immature 0.900 H Granulocytes % Neutrophils % Lymphocytes % Monocytes % Eosinophils % Basophils % Nucleated Red Blood 0.3 H Cells % Immature 0.180 H Granulocytes # Neutrophils # Lymphocytes # Monocytes # Eosinophils # Basophils # Nucleated Red Blood Cells # Sodium Level 143 Potassium Level 3.0 L Chloride Level 109 Carbon Dioxide Level 26 Anion Gap 8 Blood Urea Nitrogen 69 H Creatinine 1.56 #H Est Glomerular 33 L Filtrat Rate mL/min Glucose Level 185 Calcium Level 8.2 L Phosphorus Level 2.5 Magnesium Level 2.1 Total Bilirubin 0.3 Direct Bilirubin 0.00 Indirect Bilirubin 0.3 Aspartate Amino 146 H Transf (AST/SGOT) Alanine 222 H Aminotransferase (AL T/SGPT) Alkaline Phosphatase 61 Total Protein 5.2 L Albumin 2.5 L Globulin 2.70 Albumin/Globulin 0.92 Ratio Medications Medication Current Medications IV Flush (NS 3 ml) 3 ml PER PROTOCOL IV ; Start 09/15/18 at 07:30 Ondansetron HCl (Zofran Inj) 4 mg Q6H PRN IV NAUSEA/VOMITING; Start 09/15/18 at 07:30 Acetaminophen (Tylenol Tab) 650 mg Q6H PRN PO .PAIN 1-3 OR TEMP Last administered on 09/16/18 21:56; Admin Dose 650 MG; Start 09/15/18 at 07:30 Baclofen (Lioresal) 10 mg BID PO Last administered on 09/18/18 08:21; Admin Dose 10 MG; Start 09/15/18 at 09:00 Buspirone HCl (Buspar) 10 mg BID PO Last administered on 09/18/18 09:11; Admin Dose 10 MG; Start 09/15/18 at 09:00 Calcium Carbonate (Oyster Shell Calcium) 1.25 gm BID PO Last administered on 09/18/18 08:21; Admin Dose 1.25 GM; Start 09/15/18 at 09:00 Clonazepam (Klonopin) 0.5 mg DAILY PRN PO ANXIETY Last administered on 09/17/18 21:35; Admin Dose 0.5 MG; Start 09/15/18 at 07:30 Docusate Sodium (Colace) 100 mg BID PO Last administered on 09/18/18 08:21; Admin Dose 100 MG; Start 09/15/18 at 09:00 Rifaximin (Xifaxan) 550 mg BID PO Last administered on 09/18/18 08:21; Admin Dose 550 MG; Start 09/15/18 at 09:00 Sertraline HCl (Zoloft) 100 mg DAILY PO ; Start 09/15/18 at 09:00; Status Hold Fluticasone/ Vilanterol (Breo Ellipta 200-25 Mcg Inh) 1 inh DAILY INH Last administered on 09/18/18 08:22; Admin Dose 1 INH; Start 09/15/18 at 09:00 Methylprednisolone Sodium Succinate (Solu-Medrol) 60 mg DAILY IV Last administered on 09/18/18 08:20; Admin Dose 60 MG; Start 09/15/18 at 09:00 Albuterol/ Ipratropium (Duoneb) 3 ml Q3H RESP THERAPY PRN HHN WHEEZING AND SOB; Start 09/15/18 at 08:00 Vancomycin HCl (Vanco Iv Per Pharmacy) VANCOMYCIN PER PHARMACY PER PROTOCOL XX ; Start 09/15/18 at 09:00 Apixaban (Eliquis) 2.5 mg BID PO Last administered on 09/18/18 08:21; Admin Dose 2.5 MG; Start 09/15/18 at 21:00 Levalbuterol (Xopenex Neb) 0.63 mg Q4H RESP THERAPY HHN Last administered on 09/18/18 05:24; Admin Dose 0.63 MG; Start 09/15/18 at 17:00 Levalbuterol (Xopenex Neb) 0.63 mg Q2H RESP THERAPY PRN HHN WHEEZING AND SOB; Start 09/15/18 at 14:00 Dextrose 1,000 ml @ 125 mls/hr Q8H IV Last administered on 09/18/18 05:10; Admin Dose 125 MLS/HR; Start 09/16/18 at 10:30 Collagenase (Santyl) 1 applic DAILY TOP Last administered on 09/18/18 08:22; Admin Dose 1 APPLIC; Start 09/16/18 at 15:00 Piperacillin Sod/ Tazobactam Sod 50 ml @ 100 mls/hr Q6 IVPB Last administered on 09/18/18 05:11; Admin Dose 100 MLS/HR; Start 09/17/18 at 12:00 Famotidine (Pepcid Iv) 20 mg DAILY IV Last administered on 09/18/18 08:20; Admin Dose 20 MG; Start 09/18/18 at 09:00 Insulin Aspart (Novolog Insulin Pen) NOVOLOG *MILD* ALGORITHM WITH MEALS BEDTIME SC Last administered on 09/18/18 07:49; Admin Dose 2 UNIT; Start 09/17/18 at 11:30 Acetaminophen/ Hydrocodone Bitart ([place] (5/325)) 1 tab Q6H PRN PO MODERATE PAIN LEVEL 4-6 Last administered on 09/17/18 23:57; Admin Dose 1 TAB; Start 09/17/18 at 11:30 Methadone HCl (Methadone Liq) 15 mg Q8 PRN PO SEVERE PAIN Last administered on 7/21/19at 08:17; Admin Dose 15 MG; Start 09/17/18 at 18:30 Potassium Chloride 100 ml @ 50 mls/hr Q2H IVPB Last administered on 09/18/18at 08:03; Admin Dose 50 MLS/HR; Start 09/18/18 at 07:30; Stop 09/18/18 at 13:29 Vancomycin HCl 100 ml @ 100 mls/hr Q36H IVPB ; Start 09/19/18 at 06:00 STU ORTEZ Sep 18, 2018 09:31
[2018-09-18] MEDS: ONDANSETRON 4 MG INJ IV PRN ×2 (09:36→21:38)
--- NOTE | 2018-09-18 10:38 | CONS ---
Consult Date/Type/Reason Admit Date/Time Sep 15, 2018 at 03:32 Initial Consult Date 09/15/18 Type of Consult Pulmonary Date/Time of Note DATE: 09/18/18 TIME: 10:37 Subjective Patient comfortable this morning on nasal cannula decreased O2 requirements. Awake alert vomiting x1. Objective Vital Signs Date Temp Pulse Resp B/P (MAP) Pulse Ox O2 O2 Flow FiO2 Time Delivery Rate 09/18/18 89 19 100 Nasal 2.0 09:33 Cannula 09/18/18 125/63 06:00 (83) 09/18/18 98.5 04:00 09/17/18 24 21:34 Intake and Output 09/17/18 09/17/18 09/18/18 1515:00 23:00 07:00 IntakeIntake Total 100 ml 985 ml 1300 ml OutputOutput Total 150 ml 330 ml 415 ml BalanceBalance -50 ml 655 ml 885 ml Exam PHYSICAL EXAMINATION: GENERAL: Thin, elderly-appearing lady, appears comfortable at rest, no acute distress. VITAL SIGNS: NECK: Supple. JVD is not elevated. CARDIAC: S1, S2, no added sounds or murmurs. CHEST: Diminished air entry bilaterally. ABDOMEN: Soft, nontender. No guarding or rebound. EXTREMITIES: No cyanosis, clubbing, 1+ edema. NEUROLOGIC: Grossly intact. Vent Setting Fraction of Inspired Oxygen pe: 24 Results/Medications Result Diagram: 09/18/18 0453 09/18/18 0453 Results 24 hrs Laboratory Tests Test 09/17/18 12:32 09/17/18 17:04 09/17/18 18:37 09/17/18 22:14 Bedside Glucose 225 H 172 223 H Troponin I 0.050 Test 09/18/18 00:54 09/18/18 04:53 09/18/18 07:39 Troponin I 0.049 White Blood Count 19.4 #H Red Blood Count 3.06 L Hemoglobin 9.3 L Hematocrit 29.5 L Mean Corpuscular 96.4 Volume Mean Corpuscular 30.4 Hemoglobin Mean Corpuscular 31.5 L Hemoglobin Concent Red Cell 15.2 H Distribution Width Platelet Count 161 Mean Platelet Volume 12.2 H Immature 0.900 H Granulocytes % Neutrophils % Segmented 70 Neutrophils % (Manual) Band Neutrophils % 22 H (Manual) Lymphocytes % Lymphocytes % 5 L (Manual) Monocytes % Monocytes % (Manual) 3 Eosinophils % Basophils % Nucleated Red Blood 0.3 H Cells % Immature 0.180 H Granulocytes # Neutrophils # Neutrophils # 14.4 H (Manual) Band Neutrophils # 4.2 H Lymphocytes (Manual) 0.9 Lymphocytes # Monocytes # Monocytes # (Manual) 0.5 Eosinophils # Basophils # Nucleated Red Blood Cells # Platelet Estimate NORMAL Giant Platelets 1 H Polychromasia 2+ Poikilocytosis 3+ Anisocytosis 2+ Macrocytosis 2+ Target Cells 1+ Sodium Level 143 Potassium Level 3.0 L Chloride Level 109 Carbon Dioxide Level 26 Anion Gap 8 Blood Urea Nitrogen 69 H Creatinine 1.56 #H Est Glomerular 33 L Filtrat Rate mL/min Glucose Level 185 Calcium Level 8.2 L Phosphorus Level 2.5 Magnesium Level 2.1 Total Bilirubin 0.3 Direct Bilirubin 0.00 Indirect Bilirubin 0.3 Aspartate Amino 146 H Transf (AST/SGOT) Alanine 222 H Aminotransferase (AL T/SGPT) Alkaline Phosphatase 61 Total Protein 5.2 L Albumin 2.5 L Globulin 2.70 Albumin/Globulin 0.92 Ratio Bedside Glucose 186 Medications Current Medications IV Flush (NS 3 ml) 3 ml PER PROTOCOL IV ; Start 09/15/18 at 07:30 Ondansetron HCl (Zofran Inj) 4 mg Q6H PRN IV NAUSEA/VOMITING Last administered on 09/18/18 09:36; Admin Dose 4 MG; Start 09/15/18 at 07:30 Acetaminophen (Tylenol Tab) 650 mg Q6H PRN PO .PAIN 1-3 OR TEMP Last administered on 09/16/18 21:56; Admin Dose 650 MG; Start 09/15/18 at 07:30 Baclofen (Lioresal) 10 mg BID PO Last administered on 09/18/18 08:21; Admin Dose 10 MG; Start 09/15/18 at 09:00 Buspirone HCl (Buspar) 10 mg BID PO Last administered on 09/18/18 09:11; Admin Dose 10 MG; Start 09/15/18 at 09:00 Calcium Carbonate (Oyster Shell Calcium) 1.25 gm BID PO Last administered on 09/18/18 08:21; Admin Dose 1.25 GM; Start 09/15/18 at 09:00 Clonazepam (Klonopin) 0.5 mg DAILY PRN PO ANXIETY Last administered on 09/17/18 21:35; Admin Dose 0.5 MG; Start 09/15/18 at 07:30 Docusate Sodium (Colace) 100 mg BID PO Last administered on 09/18/18 08:21; Admin Dose 100 MG; Start 09/15/18 at 09:00 Rifaximin (Xifaxan) 550 mg BID PO Last administered on 09/18/18 08:21; Admin Dose 550 MG; Start 09/15/18 at 09:00 Sertraline HCl (Zoloft) 100 mg DAILY PO ; Start 09/15/18 at 09:00; Status Hold Fluticasone/ Vilanterol (Breo Ellipta 200-25 Mcg Inh) 1 inh DAILY INH Last admi nistered on 09/18/18 08:22; Admin Dose 1 INH; Start 09/15/18 at 09:00 Methylprednisolone Sodium Succinate (Solu-Medrol) 60 mg DAILY IV Last administered on 09/18/18 08:20; Admin Dose 60 MG; Start 09/15/18 at 09:00 Albuterol/ Ipratropium (Duoneb) 3 ml Q3H RESP THERAPY PRN HHN WHEEZING AND SOB; Start 09/15/18 at 08:00 Vancomycin HCl (Vanco Iv Per Pharmacy) VANCOMYCIN PER PHARMACY PER PROTOCOL XX ; Start 09/15/18 at 09:00 Apixaban (Eliquis) 2.5 mg BID PO Last administered on 09/18/18 08:21; Admin Dose 2.5 MG; Start 09/15/18 at 21:00 Levalbuterol (Xopenex Neb) 0.63 mg Q4H RESP THERAPY HHN Last administered on 09/18/18at 09:33; Admin Dose 0.63 MG; Start 09/15/18 at 17:00 Levalbuterol (Xopenex Neb) 0.63 mg Q2H RESP THERAPY PRN HHN WHEEZING AND SOB; Start 09/15/18 at 14:00 Collagenase (Santyl) 1 applic DAILY TOP Last administered on 09/18/18 08:22; Admin Dose 1 APPLIC; Start 09/16/18 at 15:00 Piperacillin Sod/ Tazobactam Sod 50 ml @ 100 mls/hr Q6 IVPB Last administered on 09/18/18at 05:11; Admin Dose 100 MLS/HR; Start 09/17/18 at 12:00 Famotidine (Pepcid Iv) 20 mg DAILY IV Last administered on 09/18/18at 08:20; Admin Dose 20 MG; Start 09/18/18 at 09:00 Insulin Aspart (Novolog Insulin Pen) NOVOLOG *MILD* ALGORITHM WITH MEALS BEDTIME SC Last administered on 09/18/18at 07:49; Admin Dose 2 UNIT; Start 09/17/18 at 11:30 Acetaminophen/ Hydrocodone Bitart ([place] (5/325)) 1 tab Q6H PRN PO MODERATE PAIN LEVEL 4-6 Last administered on 09/17/18at 23:57; Admin Dose 1 TAB; Start 09/17/18 at 11:30 Methadone HCl (Methadone Liq) 15 mg Q8 PRN PO SEVERE PAIN Last administered on 09/18/18at 08:17; Admin Dose 15 MG; Start 09/17/18 at 18:30 Potassium Chloride 100 ml @ 50 mls/hr Q2H IVPB Last administered on 09/18/18at 08:03; Admin Dose 50 MLS/HR; Start 09/18/18 at 07:30; Stop 09/18/18 at 13:29 Vancomycin HCl 100 ml @ 100 mls/hr Q36H IVPB ; Start 09/19/18 at 06:00 Assessment/Plan Hospital Course (Demo Recall) IMPRESSION 1. Likely demand ischemia type 2, non-ST elevation myocardial infarction. No significant right heart failure on echocardiogram 2. Chronic obstructive pulmonary disease with acute exacerbation. 3. Underlying psychiatric disorder. Resumed methadone for chronic pain 4. Dehydration and renal insufficiency. 5. History of venous thromboembolism Plan 1. Advance diet as tolerated 2. Bronchodilators. 3. Supplemental O2. 4. Steroid taper. 5. Continue Eliquis anticoagulation 6. DVT and GI prophylaxis. 7. PT eval encourage out of bed Stable for transfer to telemetry Critical care time 40 minutes EMMA STEINBERG MD, [facility] Sep 18, 2018 10:38
[2018-09-18] MEDS: HYDROCODONE/APAP (5/325) TAB PO PRN ×2 (10:48→21:13)
[2018-09-18] MEDS ORDERED: POTASSIUM CHLORIDE 100 ML IVPB SCH (14:30)
--- NOTE | 2018-09-18 15:53 | CONS ---
Assessment/Plan Assessment/Plan Hospital Course (Demo Recall) Acute respiratory failure: Currently being treated for COPD exacerbation. Echo does not show obvious RV dysfunction but recurrent PE is not excluded NSTEMI: trops 0.5 and trended down. Type II vs ?recurrent PE History of PE: diagnosed 05/2018. ?Recurrence COPD with acute exacerbation Acute renal failure: worse even with IVF Transaminitis: stable 300s Pulm HTN: PAP 60s 06/17. 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 Detailed Summary Additional Comments 14 point review of systems without changes. Exam/Review of Systems Vital Signs Vitals Vital Signs Date Temp Pulse Resp B/P (MAP) Pulse Ox O2 O2 Flow FiO2 Time Delivery Rate 09/18/18 92 18 100 Nasal 2.0 14:09 Cannula 09/18/18 134/70 13:00 (91) 09/18/18 97.9 12:00 09/17/18 24 21:34 Intake and Output 09/17/18 09/17/18 09/18/18 1515:00 23:00 07:00 IntakeIntake Total 100 ml 985 ml 1425 ml OutputOutput Total 150 ml 330 ml 515 ml BalanceBalance -50 ml 655 ml 910 ml Exam Exam Constitutional: alert, distress Head: normocephalic, atraumatic Neck: jvd (8cm) Respiratory: crackles/rales (mild at bases), diminished breath sounds; No clear to auscultation Cardiovascular: systolic murmur (2/6 TAMMY); No regular rate and rhythm, No edema Gastrointestinal: soft, non-tender; No distended Neurological: nl mental status; No nl speech Labs Result Diagram: 09/18/18 0453 09/18/18 0453 Results 24hrs Laboratory Tests Test 09/17/18 17:04 09/17/18 18:37 09/17/18 22:14 09/18/18 00:54 Troponin I 0.050 0.049 Bedside Glucose 172 223 H Test 09/18/18 04:53 09/18/18 07:39 09/18/18 10:00 09/18/18 12:12 White Blood Count 19.4 #H Red Blood Count 3.06 L Hemoglobin 9.3 L Hematocrit 29.5 L Mean Corpuscular 96.4 Volume Mean Corpuscular 30.4 Hemoglobin Mean Corpuscular 31.5 L Hemoglobin Concent Red Cell 15.2 H Distribution Width Platelet Count 161 Mean Platelet Volume 12.2 H Immature 0.900 H Granulocytes % Neutrophils % Segmented 70 Neutrophils % (Manual) Band Neutrophils % 22 H (Manual) Lymphocytes % Lymphocytes % 5 L (Manual) Monocytes % Monocytes % (Manual) 3 Eosinophils % Basophils % Nucleated Red Blood 0.3 H Cells % Immature 0.180 H Granulocytes # Neutrophils # Neutrophils # 14.4 H (Manual) Band Neutrophils # 4.2 H Lymphocytes (Manual) 0.9 Lymphocytes # Monocytes # Monocytes # (Manual) 0.5 Eosinophils # Basophils # Nucleated Red Blood Cells # Platelet Estimate NORMAL Giant Platelets 1 H Polychromasia 2+ Poikilocytosis 3+ Anisocytosis 2+ Macrocytosis 2+ Target Cells 1+ Sodium Level 143 Potassium Level 3.0 L Chloride Level 109 Carbon Dioxide Level 26 Anion Gap 8 Blood Urea Nitrogen 69 H Creatinine 1.56 #H Est Glomerular 33 L Filtrat Rate mL/min Glucose Level 185 Calcium Level 8.2 L Phosphorus Level 2.5 Magnesium Level 2.1 Total Bilirubin 0.3 Direct Bilirubin 0.00 Indirect Bilirubin 0.3 Aspartate Amino 146 H Transf (AST/SGOT) Alanine 222 H Aminotransferase (AL T/SGPT) Alkaline Phosphatase 61 Total Protein 5.2 L Albumin 2.5 L Globulin 2.70 Albumin/Globulin 0.92 Ratio Bedside Glucose 186 142 Urine Collection 24 Duration Urine Total Volume 3250 (Protein) Urine Total Protein 24 Hour Test 09/18/18 13:45 Urine Color YELLOW Urine Clarity CLEAR Urine pH 6.0 Urine Specific 1.016 [place] Urine Ketones NEGATIVE Urine Nitrite NEGATIVE Urine Bilirubin NEGATIVE Urine Urobilinogen NEGATIVE Urine Leukocyte NEGATIVE Esterase Urine Microscopic 1 RBC Urine Microscopic 1 WBC Urine Bacteria FEW A Urine Eosinophils % 0.0 Urine Hemoglobin 3+ H Urine Random 41.02 Creatinine Urine Random Sodium Urine Glucose NEGATIVE Urine Total Protein 72.0 H Medications Medications Current Medications IV Flush (NS 3 ml) 3 ml PER PROTOCOL IV ; Start 09/15/18 at 07:30 Ondansetron HCl (Zofran Inj) 4 mg Q6H PRN IV NAUSEA/VOMITING Last administered on 09/18/18 09:36; Admin Dose 4 MG; Start 09/15/18 at 07:30 Acetaminophen (Tylenol Tab) 650 mg Q6H PRN PO .PAIN 1-3 OR TEMP Last administered on 09/16/18 21:56; Admin Dose 650 MG; Start 09/15/18 at 07:30 Baclofen (Lioresal) 10 mg BID PO Last administered on 09/18/18 08:21; Admin Dose 10 MG; Start 09/15/18 at 09:00 Buspirone HCl (Buspar) 10 mg BID PO Last administered on 09/18/18 09:11; Admin Dose 10 MG; Start 09/15/18 at 09:00 Calcium Carbonate (Oyster Shell Calcium) 1.25 gm BID PO Last administered on 09/18/18 08:21; Admin Dose 1.25 GM; Start 09/15/18 at 09:00 Clonazepam (Klonopin) 0.5 mg DAILY PRN PO ANXIETY Last administered on 09/17/18 21:35; Admin Dose 0.5 MG; Start 09/15/18 at 07:30 Docusate Sodium (Colace) 100 mg BID PO Last administered on 09/18/18 08:21; Admin Dose 100 MG; Start 09/15/18 at 09:00 Rifaximin (Xifaxan) 550 mg BID PO Last administered on 09/18/18 08:21; Admin Dose 550 MG; Start 09/15/18 at 09:00 Sertraline HCl (Zoloft) 100 mg DAILY PO ; Start 09/15/18 at 09:00; Status Hold Fluticasone/ Vilanterol (Breo Ellipta 200-25 Mcg Inh) 1 inh DAILY INH Last administered on 09/18/18 08:22; Admin Dose 1 INH; Start 09/15/18 at 09:00 Methylprednisolone Sodium Succinate (Solu-Medrol) 60 mg DAILY IV Last administered on 09/18/18 08:20; Admin Dose 60 MG; Start 09/15/18 at 09:00 Albuterol/ Ipratropium (Duoneb) 3 ml Q3H RESP THERAPY PRN HHN WHEEZING AND SOB; Start 09/15/18 at 08:00 Vancomycin HCl (Vanco Iv Per Pharmacy) VANCOMYCIN PER PHARMACY PER PROTOCOL XX ; Start 09/15/18 at 09:00 Apixaban (Eliquis) 2.5 mg BID PO Last administered on 09/18/18 08:21; Admin Dose 2.5 MG; Start 09/15/18 at 21:00 Levalbuterol (Xopenex Neb) 0.63 mg Q4H RESP THERAPY HHN Last administered on 09/18/18 14:09; Admin Dose 0.63 MG; Start 09/15/18 at 17:00 Levalbuterol (Xopenex Neb) 0.63 mg Q2H RESP THERAPY PRN HHN WHEEZING AND SOB; Start 09/15/18 at 14:00 Collagenase (Santyl) 1 applic DAILY TOP Last administered on 09/18/18 08:22; Admin Dose 1 APPLIC; Start 09/16/18 at 15:00 Piperacillin Sod/ Tazobactam Sod 50 ml @ 100 mls/hr Q6 IVPB Last administered on 09/18/18 12:13; Admin Dose 100 MLS/HR; Start 09/17/18 at 12:00 Famotidine (Pepcid Iv) 20 mg DAILY IV Last administered on 09/18/18 08:20; Admin Dose 20 MG; Start 09/18/18 at 09:00 Insulin Aspart (Novolog Insulin Pen) NOVOLOG *MILD* ALGORITHM WITH MEALS BEDTIME SC Last administered on 09/18/18at 12:19; Admin Dose 1 UNIT; Start 09/17/18 at 11:30 Acetaminophen/ Hydrocodone Bitart ([place] (5/325)) 1 tab Q6H PRN PO MODERATE PAIN LEVEL 4-6 Last administered on 09/18/18at 10:48; Admin Dose 1 TAB; Start 09/17/18 at 11:30 Methadone HCl (Methadone Liq) 15 mg Q8 PRN PO SEVERE PAIN Last administered on 09/18/18 08:17; Admin Dose 15 MG; Start 09/17/18 at 18:30 Vancomycin HCl 100 ml @ 100 mls/hr Q36H IVPB ; Start 09/19/18 at 06:00 Potassium Chloride 100 ml @ 50 mls/hr Q2H IVPB Last administered on 09/18/18at 14:47; Admin Dose 50 MLS/HR; Start 09/18/18 at 14:30; Stop 09/18/18 at 16:29 RENETTA MCKEON MD Sep 18, 2018 15:52
[2018-09-19] VITALS (23 sets, daily range): BP systolic 110–149; BP diastolic 53–80; PULSE 87–126; RESP 18–29
[2018-09-19] MEDS: LEVALBUTEROL (NEB) 0.63 MG/3 ML AMP HHN SCH ×6 (01:00→20:46)
[2018-09-19] MEDS: PIPER-TAZO 2.25 GM/NS 50 ML IVPB SCH ×2 (01:12→05:34)
[2018-09-19] MEDS: clonAZEPAM 0.5 MG TAB PO PRN ×2 (01:16→21:53)
[2018-09-19] MEDS ORDERED: VANCOMYCIN 500 MG (PMX) 100 ML IVPB SCH (06:00)
[2018-09-19] MEDS: INSULIN ASPART [NOVOLOG] 3 ML PEN SC SCH ×4 (07:35→21:00)
[2018-09-19] MEDS: ONDANSETRON 4 MG INJ IV PRN (07:53)
--- NOTE | 2018-09-19 08:15 | CONS ---
Consult Date/Type/Reason Admit Date/Time Sep 15, 2018 at 03:32 Initial Consult Date 09/15/18 Date/Time of Note DATE: 09/19/18 TIME: 08:12 Subjective 68-year-old female with the past medical history of COPD, history of previous PE, psychiatric disorder, chronic kidney disease, hepatitis C, liver disease who was brought in the ER after noticing dyspnea progressively worse and requires to be on BiPAP. On admission, the patient has been weaned down. On the course of the workup, was noted to have renal failure. The patient has had other admissions here with no previous acute renal failure incidents. She continues to have good urine output since she has been here. On steroids, IVF dced PHYSICAL EXAMINATION: HEENT: Normocephalic, atraumatic. Pupils are equal, round, reactive to light. Oropharynx has moist mucous membranes. NECK: Supple. HEART: Regular rate and rhythm. LUNGS: Clear to auscultation. ABDOMEN: Soft, nontender, nondistended. Normal bowel sounds. EXTREMITIES: No clubbing, cyanosis or edema. Objective Vitals Vital Signs Date Temp Pulse Resp B/P (MAP) Pulse Ox O2 O2 Flow FiO2 Time Delivery Rate 09/19/18 99 26 122/68 98 Room Air 08:00 (86) 09/19/18 98.5 2.0 07:40 09/17/18 24 21:34 Intake and Output 09/18/18 09/18/18 09/19/18 1515:00 23:00 07:00 IntakeIntake Total 1125 ml 430 ml 400 ml OutputOutput Total 685 ml 545 ml 655 ml BalanceBalance 440 ml -115 ml -255 ml Results/Medications Result Diagram: 09/19/18 0441 09/19/18 0441 Results 24 hrs Laboratory Tests Test 09/18/18 10:00 09/18/18 12:12 09/18/18 13:45 09/18/18 17:19 Urine Collection 24 Duration Urine Total Volume 3250 (Protein) Urine Total Protein 24 Hour Bedside Glucose 142 137 Urine Color YELLOW Urine Clarity CLEAR Urine pH 6.0 Urine Specific 1.016 [place] Urine Ketones NEGATIVE Urine Nitrite NEGATIVE Urine Bilirubin NEGATIVE Urine Urobilinogen NEGATIVE Urine Leukocyte NEGATIVE Esterase Urine Microscopic 1 RBC Urine Microscopic 1 WBC Urine Bacteria FEW A Urine Eosinophils % 0.0 Urine Hemoglobin 3+ H Urine Random 41.02 Creatinine Urine Random Sodium Urine Glucose NEGATIVE Urine Total Protein 72.0 H Test 09/18/18 21:25 09/19/18 04:41 09/19/18 05:31 Bedside Glucose 154 116 White Blood Count 16.8 H Red Blood Count 2.73 L Hemoglobin 8.3 L Hematocrit 26.1 L Mean Corpuscular 95.6 Volume Mean Corpuscular 30.4 Hemoglobin Mean Corpuscular 31.8 L Hemoglobin Concent Red Cell 15.0 H Distribution Width Platelet Count 173 Mean Platelet Volume 12.2 H Immature 1.100 H Granulocytes % Neutrophils % 78.6 H Segmented 79 H Neutrophils % (Manual) Band Neutrophils % 4 (Manual) Lymphocytes % 9.0 L Lymphocytes % 7 L (Manual) Monocytes % 10.6 Monocytes % (Manual) 8 Eosinophils % 0.1 Basophils % 0.6 Promyelocytes % 2 H (Manual) Nucleated Red Blood 1 H Cells % Immature 0.190 H Granulocytes # Neutrophils # 13.3 H Neutrophils # 13.4 H (Manual) Band Neutrophils # 0.6 Lymphocytes (Manual) 1.1 Lymphocytes # 1.5 Monocytes # 1.8 H Monocytes # (Manual) 1.3 H Eosinophils # 0.0 Basophils # 0.1 Promyelocytes # 0.3 H Nucleated Red Blood 0.1 H Cells # Platelet Estimate NORMAL Giant Platelets 1 H Polychromasia 1+ Poikilocytosis 1+ Anisocytosis 1+ Macrocytosis 1+ Ovalocytes 1+ Sodium Level 143 Potassium Level 4.1 Chloride Level 111 H Carbon Dioxide Level 27 Anion Gap 5 Blood Urea Nitrogen 53 H Creatinine 1.15 H Est Glomerular 47 L Filtrat Rate mL/min Glucose Level 120 # Calcium Level 8.4 Phosphorus Level 1.9 L Magnesium Level 1.9 Total Bilirubin 0.4 Direct Bilirubin 0.00 Indirect Bilirubin 0.4 Aspartate Amino 98 H Transf (AST/SGOT) Alanine 194 H Aminotransferase (AL T/SGPT) Alkaline Phosphatase 63 Total Protein 4.8 L Albumin 2.3 L Globulin 2.50 Albumin/Globulin 0.92 Ratio Home Meds Active Scripts Pantoprazole* (Pantoprazole*) 40 Mg Tablet., 40 MG PO DAILY@06 for 14 Days, #14 Prov:RICKIE DALTON MD 06/12/18 Apixaban* (Eliquis*) 5 Mg Tablet, 10 MG PO BID for 30 Days, #60 TAB 10 mg twice daily for 5 days, then 5 mg twice daily Prov:RICKIE DALTON MD 06/12/18 Methadone Hcl* (Methadone*) 5 Mg/5 Ml Solution, 68 MG PO DAILY for 30 Days, ML Prov:STU ORTEZ 04/14/18 Salmeterol Xinaf/Fluticasone* (Advair*) 250-50 Diskus Inhaler, 1 INH INHALATION BID for 30 Days, #1 INHALER Prov:ZHANG WARE STOCK GRADER 02/28/16 Albuterol Sulfate* (Proair HFA*) 8.5 Gm Hfa.aer.ad, 2 PUFF INH Q6 for SHORTNESS OF BREATH for 14 Days, #1 INHALER Prov:ZHANG WARE STOCK GRADER 02/28/16 Reported Medications Sertraline Hcl* (Sertraline Hcl*) 25 Mg Tablet, 25 MG PO DAILY, #30 TAB 09/15/18 Buspirone Hcl* (Buspirone Hcl*) 10 Mg Tab, 10 MG PO BID, TAB 09/15/18 Clonazepam* (Clonazepam*) 0.5 Mg Tablet, 0.5 MG PO DAILY PRN for ANXIETY, TAB 09/15/18 Ipratropium-Albuterol (Ipratropium-Albuterol) 0.5-3 Mg/3 Ml Ampul.neb, 3 ML INHALATION Q6 PRN for WHEEZING AND SOB, #30 VIAL 09/15/18 Carvedilol* (Carvedilol*) 6.25 Mg Tablet, 6.25 MG PO BID, #60 TAB 09/15/18 Cholecalciferol (Vitamin D3) (VITAMIN D-3) 2,000 Unit Capsule, 2000 U PO DAILY for 30 Days 04/30/18 Amlodipine Besylate* (Amlodipine Besylate*) 5 Mg Tablet, 5 MG PO DAILY for 30 Days, #30 04/30/18 Baclofen* (Baclofen*) 10 Mg Tablet, 10 MG PO BID 04/30/18 Calcium Carbonate ([id number]) 500 Mg Tablet, 500 MG PO BID, TAB 04/30/18 Discontinued Reported Medications Docusate Sodium* (Docusate Sodium*) 100 Mg Capsule, 100 MG PO BID, #60 CAP 04/30/18 Discontinued Scripts Oxymetazoline Hcl* (Afrin [place]*) 0.05% - 15 Ml [place], 2 SPRAY NASAL BID for 7 Days, #1 SPRAY 2 Refills Prov:RICKIE DALTON MD 06/12/18 Lactulose* (Lactulose*) 20 Gm/30 Ml Solution, 30 GM PO Q8 for 14 Days, #14 1 Refill Pharmacy: Dispensed 2-week supply with 1 refill Prov:RICKIE DALTON MD 06/12/18 Acetaminophen* (Tylenol*) 325 Mg Tablet, 650 MG PO Q6H PRN for .PAIN 1-3 OR TEMP for 7 Days, TAB Prov:RICKIE DALTON MD 06/12/18 Rifaximin* (Xifaxan*) 550 Mg Tablet, 550 MG PO BID for 14 Days, #30 TAB Prov:RICKIE DALTON MD 06/12/18 Loperamide Hcl* (Imodium*) 2 Mg Capsule, 2 MG PO .AFTER EA LOOSE BM PRN for DIARRHEA, #10 TAB Prov:ADAMS MAK MD 04/30/18 Ondansetron (Ondansetron Odt) 4 Mg Tab.rapdis, 4 MG PO Q6H PRN for NAUSEA AND/OR VOMITING, #10 TAB Prov:ADAMS MAK MD 04/30/18 Hydroxyzine Hcl* (Hydroxyzine Hcl*) 10 Mg Tablet, 10 MG PO TID, #20 TAB Prov:CASA RIOJAS MD 01/10/18 Sertraline Hcl* (Sertraline Hcl*) 100 Mg Tablet, 100 MG PO DAILY for 30 Days, TAB Prov:ZHANG WARE NP 02/28/16 Medications Current Medications IV Flush (NS 3 ml) 3 ml PER PROTOCOL IV ; Start 09/15/18 at 07:30 Ondansetron HCl (Zofran Inj) 4 mg Q6H PRN IV NAUSEA/VOMITING Last administered on 09/19/18at 07:53; Admin Dose 4 MG; Start 09/15/18 at 07:30 Acetaminophen (Tylenol Tab) 650 mg Q6H PRN PO .PAIN 1-3 OR TEMP Last administered on 09/16/18at 21:56; Admin Dose 650 MG; Start 09/15/18 at 07:30 Baclofen (Lioresal) 10 mg BID PO Last administered on 09/18/18 21:13; Admin D ose 10 MG; Start 09/15/18 at 09:00 Buspirone HCl (Buspar) 10 mg BID PO Last administered on 09/18/18 21:23; Admin Dose 10 MG; Start 09/15/18 at 09:00 Calcium Carbonate (Oyster Shell Calcium) 1.25 gm BID PO Last administered on 09/18/18 21:14; Admin Dose 1.25 GM; Start 09/15/18 at 09:00 Clonazepam (Klonopin) 0.5 mg DAILY PRN PO ANXIETY Last administered on 09/19/18 01:16; Admin Dose 0.5 MG; Start 09/15/18 at 07:30 Docusate Sodium (Colace) 100 mg BID PO Last administered on 09/18/18 21:13; Admin Dose 100 MG; Start 09/15/18 at 09:00 Rifaximin (Xifaxan) 550 mg BID PO Last administered on 09/18/18 21:13; Admin Dose 550 MG; Start 09/15/18 at 09:00 Sertraline HCl (Zoloft) 100 mg DAILY PO ; Start 09/15/18 at 09:00; Status Hold Fluticasone/ Vilanterol (Breo Ellipta 200-25 Mcg Inh) 1 inh DAILY INH Last administered on 09/18/18 08:22; Admin Dose 1 INH; Start 09/15/18 at 09:00 Methylprednisolone Sodium Succinate (Solu-Medrol) 60 mg DAILY IV Last administered on 09/18/18 08:20; Admin Dose 60 MG; Start 09/15/18 at 09:00 Albuterol/ Ipratropium (Duoneb) 3 ml Q3H RESP THERAPY PRN HHN WHEEZING AND SOB; Start 09/15/18 at 08:00 Vancomycin HCl (Vanco Iv Per Pharmacy) VANCOMYCIN PER PHARMACY PER PROTOCOL XX ; Start 09/15/18 at 09:00 Apixaban (Eliquis) 2.5 mg BID PO Last administered on 09/18/18 21:14; Admin Dose 2.5 MG; Start 09/15/18 at 21:00 Levalbuterol (Xopenex Neb) 0.63 mg Q4H RESP THERAPY HHN Last administered on 09/18/18at 14:09; Admin Dose 0.63 MG; Start 09/15/18 at 17:00 Levalbuterol (Xopenex Neb) 0.63 mg Q2H RESP THERAPY PRN HHN WHEEZING AND SOB; Start 09/15/18 at 14:00 Collagenase (Santyl) 1 applic DAILY TOP Last administered on 09/18/18 08:22; Admin Dose 1 APPLIC; Start 09/16/18 at 15:00 Piperacillin Sod/ Tazobactam Sod 50 ml @ 100 mls/hr Q6 IVPB Last administered on 09/19/18at 05:34; Admin Dose 100 MLS/HR; Start 09/17/18 at 12:00 Famotidine (Pepcid Iv) 20 mg DAILY IV Last administered on 09/18/18at 08:20; Admin Dose 20 MG; Start 09/18/18 at 09:00 Insulin Aspart (Novolog Insulin Pen) NOVOLOG *MILD* ALGORITHM WITH MEALS BEDTIME SC Last administered on 09/18/18at 12:19; Admin Dose 1 UNIT; Start 09/17/18 at 11:30 Acetaminophen/ Hydrocodone Bitart ([place] (5/325)) 1 tab Q6H PRN PO MODERATE PAIN LEVEL 4-6 Last administered on 09/18/18at 21:13; Admin Dose 1 TAB; Start 09/17/18 at 11:30 Methadone HCl (Methadone Liq) 15 mg Q8 PRN PO SEVERE PAIN Last administered on 09/18/18at 08:17; Admin Dose 15 MG; Start 09/17/18 at 18:30 Vancomycin HCl 100 ml @ 100 mls/hr Q36H IVPB Last administered on 09/19/18at 06:06; Admin Dose 100 MLS/HR; Start 09/19/18 at 06:00 Assessment/Plan Hospital Course (Demo Recall) 1. Acute renal insufficiency, possibly vasomotor nephropathy, rule out acute tubular necrosis, obstructive uropathy, or interstitial cystitis. - stabilized and improving at good interval. off ivf. - watch for diuretic phase of russ with electrolyte wasting. - All medications are dosed appropriately for renal function. - will need to redose eliquis if cr stays. 2. Acute respiratory failure, likely related to chronic obstructive pulmonary disease exacerbation. Steroid taper, bronchodilators, pulmonary followup. 3. Non-ST myocardial infarction, likely demand ischemia type 2. Cardiology is following. Medication optimized. 4. Sepsis, unknown source, possibly evolving pneumonia although impressed by the chest x-ray. Continue to monitor. 5. Elevated transaminases with the history of hepatitis C. fu abdominal imaging. ultrasound nondiagnostic sec to bowel gas. 6. Hyponatremia, likely related to total body water deficit. corrected wth iv. monitor off. CHELSIE RAMÍREZ MD Sep 19, 2018 08:15
[2018-09-19] MEDS ORDERED: POTASSIUM PHOSPHATE 30 MM in SOD CHLORIDE 0.9% 250 ML IVPB ONE (09:00)
--- NOTE | 2018-09-19 09:33 | PN ---
Date/Time of Note Date/Time of Note DATE: 09/19/18 TIME: 09:30 Assessment/Plan VTE Prophylaxis Risk score (from Ns)>0 risk: 12 SCD applied (from Ns): Yes Pharmacological prophylaxis: apixaban Lines/Catheters IV [facility]ter [facility] (from [facility] Peripheral IV Urinary Cath still in place: Yes Reason Cath still needed: other (indicate) (not needed) Assessment/Plan Assessment/Plan 68-year-old female history COPD, PE May 2018, CKD, who presents with: 1. Hypoxic and hypercapnic respiratory failure: Slowly improving, most likely secondary to COPD exacerbation, with likely superimposed pneumonia given the chest x-ray findings. -For now continue supplemental oxygen, bronchodilators, broad-spectrum antibiotics -DuoNebs, follow further recommendations from pulmonary consult -Have change methadone to a lower dose and also to as needed status given the respiratory failure patient presented with, continue cautiously -For now cautiously continue pured diet, will obtain PT eval - Continue Eliquis for PE in May 2018. 2. NSTEMI-First troponin 0.57. It was 0.407 in May of this year when she was diagnosed with PE, at that time she was diagnosed with a type II event. -Monitor serial troponin -Follow-up recommendations from cardiology consult -Continue Eliquis 3. Sepsis: Unknown source-although pneumonia is high on the differential. Again nares are positive for MRSA. Also waiting for UA results. Lactic acid was high on admission, trending down now. -Continue broad-spectrum IV antibiotics, monitor WBC (more elevated today, but no fevers, likely secondary to IV steroids patient is been getting) -Follow-up final culture results -continue IV fluids, Tylenol PRN pain and fevers 4. Acute renal insufficiency: Likely prerenal. Creatinine much improved in the last 24 hours, patient has adequate urine output. Renal team on the case. -For now continue half-normal saline IV fluids -follow-up further renal recommendations 5. Elevated transaminases: Found on admission. Trending down now, likely secondary to the septic shock patient came in with. Patient with a known history of hep C liver disease -Monitor 6. Hypernatremia: Resolved now, suspect from dehydration -We will stop D5W IV fluids, and switch to half-normal saline, monitor basic metabolic panel the a.m. 7. Anemia - Downtrending Hgb. - Will check stool occult blood. No bowel movement since admission. Critical care time spent in patient care today equals 45 minutes. Result Diagram: 09/19/18 0441 09/19/18 0441 Subjective 24 Hr Interval Summary Free Text/Dictation Had an episode of vomiting overnight. No bowel movement since admission. Patient saturating well off oxygen today. Exam/Review of Systems Exam Vitals Vital Signs Date Temp Pulse Resp B/P (MAP) Pulse Ox O2 O2 Flow FiO2 Time Delivery Rate 09/19/18 100 20 100 Nasal 1.0 08:39 Cannula 09/19/18 122/68 08:00 (86) 09/19/18 98.5 07:40 09/17/18 24 21:34 Intake and Output 09/18/18 09/18/18 09/19/18 1515:00 23:00 07:00 IntakeIntake Total 1125 ml 430 ml 500 ml OutputOutput Total 685 ml 545 ml 655 ml BalanceBalance 440 ml -115 ml -155 ml Exam Gen: Thin frail appearing woman lying in bed, awake and alert. Head: Atraumatic Eyes: Normal Conjunctiva ENT: Normal External Ears, Nose and Mouth. Neck: Full range of motion. No meningismus. Resp: Clear to auscultation bilaterally Cardio: Hyperdynamic precordium. Regular rate and rhythm, no murmurs Abd: Soft, non tender, non distended. Normal bowel sounds Ext: No bilateral lower extremity edema Results Results 24hrs Laboratory Tests Test 09/18/18 10:00 09/18/18 12:12 09/18/18 13:45 09/18/18 17:19 Urine Collection 24 Duration Urine Total Volume 3250 (Protein) Urine Total Protein 24 Hour Bedside Glucose 142 137 Urine Color YELLOW Urine Clarity CLEAR Urine pH 6.0 Urine Specific 1.016 [place] Urine Ketones NEGATIVE Urine Nitrite NEGATIVE Urine Bilirubin NEGATIVE Urine Urobilinogen NEGATIVE Urine Leukocyte NEGATIVE Esterase Urine Microscopic 1 RBC Urine Microscopic 1 WBC Urine Bacteria FEW A Urine Eosinophils % 0.0 Urine Hemoglobin 3+ H Urine Random 41.02 Creatinine Urine Random Sodium Urine Glucose NEGATIVE Urine Total Protein 72.0 H Test 09/18/18 21:25 09/19/18 04:41 09/19/18 05:31 09/19/18 07:59 Bedside Glucose 154 116 100 White Blood Count 16.8 H Red Blood Count 2.73 L Hemoglobin 8.3 L Hematocrit 26.1 L Mean Corpuscular 95.6 Volume Mean Corpuscular 30.4 Hemoglobin Mean Corpuscular 31.8 L Hemoglobin Concent Red Cell 15.0 H Distribution Width Platelet Count 173 Mean Platelet Volume 12.2 H Immature 1.100 H Granulocytes % Neutrophils % 78.6 H Segmented 79 H Neutrophils % (Manual) Band Neutrophils % 4 (Manual) Lymphocytes % 9.0 L Lymphocytes % 7 L (Manual) Monocytes % 10.6 Monocytes % (Manual) 8 Eosinophils % 0.1 Basophils % 0.6 Promyelocytes % 2 H (Manual) Nucleated Red Blood 1 H Cells % Immature 0.190 H Granulocytes # Neutrophils # 13.3 H Neutrophils # 13.4 H (Manual) Band Neutrophils # 0.6 Lymphocytes (Manual) 1.1 Lymphocytes # 1.5 Monocytes # 1.8 H Monocytes # (Manual) 1.3 H Eosinophils # 0.0 Basophils # 0.1 Promyelocytes # 0.3 H Nucleated Red Blood 0.1 H Cells # Platelet Estimate NORMAL Giant Platelets 1 H Polychromasia 1+ Poikilocytosis 1+ Anisocytosis 1+ Macrocytosis 1+ Ovalocytes 1+ Sodium Level 143 Potassium Level 4.1 Chloride Level 111 H Carbon Dioxide Level 27 Anion Gap 5 Blood Urea Nitrogen 53 H Creatinine 1.15 H Est Glomerular 47 L Filtrat Rate mL/min Glucose Level 120 # Calcium Level 8.4 Phosphorus Level 1.9 L Magnesium Level 1.9 Total Bilirubin 0.4 Direct Bilirubin 0.00 Indirect Bilirubin 0.4 Aspartate Amino 98 H Transf (AST/SGOT) Alanine 194 H Aminotransferase (AL T/SGPT) Alkaline Phosphatase 63 Total Protein 4.8 L Albumin 2.3 L Globulin 2.50 Albumin/Globulin 0.92 Ratio Medications Medication Current Medications IV Flush (NS 3 ml) 3 ml PER PROTOCOL IV ; Start 09/15/18 at 07:30 Ondansetron HCl (Zofran Inj) 4 mg Q6H PRN IV NAUSEA/VOMITING Last administered on 09/19/18at 07:53; Admin Dose 4 MG; Start 09/15/18 at 07:30 Acetaminophen (Tylenol Tab) 650 mg Q6H PRN PO .PAIN 1-3 OR TEMP Last administered on 09/16/18at 21:56; Admin Dose 650 MG; Start 09/15/18 at 07:30 Baclofen (Lioresal) 10 mg BID PO Last administered on 09/18/18 21:13; Admin Dose 10 MG; Start 09/15/18 at 09:00 Buspirone HCl (Buspar) 10 mg BID PO Last administered on 09/18/18 21:23; Admin Dose 10 MG; Start 09/15/18 at 09:00 Calcium Carbonate (Oyster Shell Calcium) 1.25 gm BID PO Last administered on 09/18/18 21:14; Admin Dose 1.25 GM; Start 09/15/18 at 09:00 Clonazepam (Klonopin) 0.5 mg DAILY PRN PO ANXIETY Last administered on 09/19/18 01:16; Admin Dose 0.5 MG; Start 09/15/18 at 07:30 Docusate Sodium (Colace) 100 mg BID PO Last administered on 09/18/18 21:13; Admin Dose 100 MG; Start 09/15/18 at 09:00 Rifaximin (Xifaxan) 550 mg BID PO Last administered on 09/18/18 21:13; Admin Dose 550 MG; Start 09/15/18 at 09:00 Sertraline HCl (Zoloft) 100 mg DAILY PO ; Start 09/15/18 at 09:00; Status Hold Fluticasone/ Vilanterol (Breo Ellipta 200-25 Mcg Inh) 1 inh DAILY INH Last administered on 09/18/18 08:22; Admin Dose 1 INH; Start 09/15/18 at 09:00 Methylprednisolone Sodium Succinate (Solu-Medrol) 60 mg DAILY IV Last administered on 09/18/18 08:20; Admin Dose 60 MG; Start 09/15/18 at 09:00 Albuterol/ Ipratropium (Duoneb) 3 ml Q3H RESP THERAPY PRN HHN WHEEZING AND SOB; Start 09/15/18 at 08:00 Vancomycin HCl (Vanco Iv Per Pharmacy) VANCOMYCIN PER PHARMACY PER PROTOCOL XX ; Start 09/15/18 at 09:00 Apixaban (Eliquis) 2.5 mg BID PO Last administered on 09/18/18 21:14; Admin Dose 2.5 MG; Start 09/15/18 at 21:00 Levalbuterol (Xopenex Neb) 0.63 mg Q4H RESP THERAPY HHN Last administered on 09/19/18 08:39; Admin Dose 0.63 MG; Start 09/15/18 at 17:00 Levalbuterol (Xopenex Neb) 0.63 mg Q2H RESP THERAPY PRN HHN WHEEZING AND SOB; Start 09/15/18 at 14:00 Collagenase (Santyl) 1 applic DAILY TOP Last administered on 09/18/18 08:22; Admin Dose 1 APPLIC; Start 09/16/18 at 15:00 Piperacillin Sod/ Tazobactam Sod 50 ml @ 100 mls/hr Q6 IVPB Last administered on 09/19/18 05:34; Admin Dose 100 MLS/HR; Start 09/17/18 at 12:00 Famotidine (Pepcid Iv) 20 mg DAILY IV Last administered on 09/18/18 08:20; Admin Dose 20 MG; Start 09/18/18 at 09:00 Insulin Aspart (Novolog Insulin Pen) NOVOLOG *MILD* ALGORITHM WITH MEALS BEDTIME SC Last administered on 09/18/18 12:19; Admin Dose 1 UNIT; Start 09/17/18 at 11:30 Acetaminophen/ Hydrocodone Bitart ([place] (5/325)) 1 tab Q6H PRN PO MODERATE P AIN LEVEL 4-6 Last administered on 09/18/18 21:13; Admin Dose 1 TAB; Start 09/17/18 at 11:30 Methadone HCl (Methadone Liq) 15 mg Q8 PRN PO SEVERE PAIN Last administered on 09/18/18 08:17; Admin Dose 15 MG; Start 09/17/18 at 18:30 Vancomycin HCl 100 ml @ 100 mls/hr Q36H IVPB Last administered on 09/19/18 06:06; Admin Dose 100 MLS/HR; Start 09/19/18 at 06:00 Potassium Phosphate 30 mm/ Sodium Chloride 260 ml @ 65 mls/hr ONCE ONCE IVPB ; Start 09/19/18 at 09:00; Stop 09/19/18 at 12:59 PRASHANT HILTON MD Sep 19, 2018 09:33
[2018-09-19] MEDS: BACLOFEN 10 MG TAB PO SCH ×2 (09:36→21:14)
[2018-09-19] MEDS: DOCUSATE SODIUM 100 MG CAP PO SCH ×2 (09:36→21:14)
[2018-09-19] MEDS: APIXABAN 5 MG TABLET PO SCH ×2 (09:36→21:14)
[2018-09-19] MEDS: BUSPIRONE 10 MG TAB PO SCH ×2 (09:37→21:14)
[2018-09-19] MEDS: FAMOTIDINE 20 MG INJ IV SCH (09:37)
[2018-09-19] MEDS: METHYLPREDNISOLONE 125 MG INJ IV SCH (09:37)
[2018-09-19] MEDS: RIFAXIMIN 550 MG TAB PO SCH ×2 (09:37→21:14)
[2018-09-19] MEDS: CALCIUM CARBONATE 1.25 GM TAB PO SCH ×2 (09:37→21:14)
[2018-09-19] MEDS: BALSAM PERU/CASTOR OIL 60 GM TUBE TOP SCH ×2 (09:38→21:54)
[2018-09-19] MEDS: FLUTICASONE/VILANTEROL 200-25 INH DEVICE INH SCH (09:39)
[2018-09-19] MEDS: COLLAGENASE 5 GM (UD JAR) TOP SCH (09:50)
[2018-09-19] MEDS: METHADONE (1 MG/ML 5 ML PO UD SYG) PO PRN (09:51)
--- NOTE | 2018-09-19 10:46 | CONS ---
Consult Date/Type/Reason Admit Date/Time Sep 15, 2018 at 03:32 Initial Consult Date 09/15/18 Type of Consult Pulmonary Date/Time of Note DATE: 09/19/18 TIME: 10:40 Subjective Patient comfortable this morning no respiratory distress awake alert. Still has some nausea and vomiting. Objective Vital Signs Date Temp Pulse Resp B/P (MAP) Pulse Ox O2 O2 Flow FiO2 Time Delivery Rate 09/19/18 100 20 100 Nasal 1.0 08:39 Cannula 09/19/18 122/68 08:00 (86) 09/19/18 98.5 07:40 09/17/18 24 21:34 Intake and Output 09/18/18 09/18/18 09/19/18 1515:00 23:00 07:00 IntakeIntake Total 1125 ml 430 ml 500 ml OutputOutput Total 685 ml 545 ml 655 ml BalanceBalance 440 ml -115 ml -155 ml Exam PHYSICAL EXAMINATION: GENERAL: Thin, elderly-appearing lady, appears comfortable at rest, no acute distress. VITAL SIGNS: NECK: Supple. JVD is not elevated. CARDIAC: S1, S2, no added sounds or murmurs. CHEST: Diminished air entry bilaterally. ABDOMEN: Soft, nontender. No guarding or rebound. EXTREMITIES: No cyanosis, clubbing, 1+ edema. NEUROLOGIC: Grossly intact. Vent Setting Fraction of Inspired Oxygen pe: 24 Results/Medications Result Diagram: 09/19/1844009/19/18 0441 Results 24 hrs Laboratory Tests Test 09/18/18 12:12 09/18/18 13:45 09/18/18 17:19 09/18/18 21:25 Bedside Glucose 142 137 154 Urine Color YELLOW Urine Clarity CLEAR Urine pH 6.0 Urine Specific 1.016 [place] Urine Ketones NEGATIVE Urine Nitrite NEGATIVE Urine Bilirubin NEGATIVE Urine Urobilinogen NEGATIVE Urine Leukocyte NEGATIVE Esterase Urine Microscopic 1 RBC Urine Microscopic 1 WBC Urine Bacteria FEW A Urine Eosinophils % 0.0 Urine Hemoglobin 3+ H Urine Random 41.02 Creatinine Urine Random Sodium Urine Glucose NEGATIVE Urine Total Protein 72.0 H Test 09/19/18 04:41 09/19/18 05:31 09/19/18 07:59 White Blood Count 16.8 H Red Blood Count 2.73 L Hemoglobin 8.3 L Hematocrit 26.1 L Mean Corpuscular 95.6 Volume Mean Corpuscular 30.4 Hemoglobin Mean Corpuscular 31.8 L Hemoglobin Concent Red Cell 15.0 H Distribution Width Platelet Count 173 Mean Platelet Volume 12.2 H Immature 1.100 H Granulocytes % Neutrophils % 78.6 H Segmented 79 H Neutrophils % (Manual) Band Neutrophils % 4 (Manual) Lymphocytes % 9.0 L Lymphocytes % 7 L (Manual) Monocytes % 10.6 Monocytes % (Manual) 8 Eosinophils % 0.1 Basophils % 0.6 Promyelocytes % 2 H (Manual) Nucleated Red Blood 1 H Cells % Immature 0.190 H Granulocytes # Neutrophils # 13.3 H Neutrophils # 13.4 H (Manual) Band Neutrophils # 0.6 Lymphocytes (Manual) 1.1 Lymphocytes # 1.5 Monocytes # 1.8 H Monocytes # (Manual) 1.3 H Eosinophils # 0.0 Basophils # 0.1 Promyelocytes # 0.3 H Nucleated Red Blood 0.1 H Cells # Platelet Estimate NORMAL Giant Platelets 1 H Polychromasia 1+ Poikilocytosis 1+ Anisocytosis 1+ Macrocytosis 1+ Ovalocytes 1+ Sodium Level 143 Potassium Level 4.1 Chloride Level 111 H Carbon Dioxide Level 27 Anion Gap 5 Blood Urea Nitrogen 53 H Creatinine 1.15 H Est Glomerular 47 L Filtrat Rate mL/min Glucose Level 120 # Calcium Level 8.4 Phosphorus Level 1.9 L Magnesium Level 1.9 Total Bilirubin 0.4 Direct Bilirubin 0.00 Indirect Bilirubin 0.4 Aspartate Amino 98 H Transf (AST/SGOT) Alanine 194 H Aminotransferase (AL T/SGPT) Alkaline Phosphatase 63 Total Protein 4.8 L Albumin 2.3 L Globulin 2.50 Albumin/Globulin 0.92 Ratio Bedside Glucose 116 100 Medications Current Medications IV Flush (NS 3 ml) 3 ml PER PROTOCOL IV ; Start 09/15/18 at 07:30 Ondansetron HCl (Zofran Inj) 4 mg Q6H PRN IV NAUSEA/VOMITING Last administered on 09/19/18 07:53; Admin Dose 4 MG; Start 09/15/18 at 07:30 Acetaminophen (Tylenol Tab) 650 mg Q6H PRN PO .PAIN 1-3 OR TEMP Last administered on 09/16/18at 21:56; Admin Dose 650 MG; Start 09/15/18 at 07:30 Baclofen (Lioresal) 10 mg BID PO Last administered on 09/19/18at 09:36; Admin Dose 10 MG; Start 09/15/18 at 09:00 Buspirone HCl (Buspar) 10 mg BID PO Last administered on 09/19/18 09:37; Admin Dose 10 MG; Start 09/15/18 at 09:00 Calcium Carbonate (Oyster Shell Calcium) 1.25 gm BID PO Last administered on 09/19/18 09:37; Admin Dose 1.25 GM; Start 09/15/18 at 09:00 Clonazepam (Klonopin) 0.5 mg DAILY PRN PO ANXIETY Last administered on 09/19/18 01:16; Admin Dose 0.5 MG; Start 09/15/18 at 07:30 Docusate Sodium (Colace) 100 mg BID PO Last administered on 09/19/18 09:36; Admin Dose 100 MG; Start 09/15/18 at 09:00 Rifaximin (Xifaxan) 550 mg BID PO Last administered on 09/19/18 09:37; Admin Dose 550 MG; Start 09/15/18 at 09:00 Sertraline HCl (Zoloft) 100 mg DAILY PO ; Start 09/15/18 at 09:00; Status Hold Fluticasone/ Vilanterol (Breo Ellipta 200-25 Mcg Inh) 1 inh DAILY INH Last administered on 09/19/18 09:39; Admin Dose 1 INH; Start 09/15/18 at 09:00 Methylprednisolone Sodium Succinate (Solu-Medrol) 60 mg DAILY IV Last administered on 09/19/18 09:37; Admin Dose 60 MG; Start 09/15/18 at 09:00 Albuterol/ Ipratropium (Duoneb) 3 ml Q3H RESP THERAPY PRN HHN WHEEZING AND SOB; Start 09/15/18 at 08:00 Vancomycin HCl (Vanco Iv Per Pharmacy) VANCOMYCIN PER PHARMACY PER PROTOCOL XX ; Start 09/15/18 at 09:00 Apixaban (Eliquis) 2.5 mg BID PO Last administered on 09/19/18 09:36; Admin Dose 2.5 MG; Start 09/15/18 at 21:00 Levalbuterol (Xopenex Neb) 0.63 mg Q4H RESP THERAPY HHN Last administered on 09/19/18 08:39; Admin Dose 0.63 MG; Start 09/15/18 at 17:00 Levalbuterol (Xopenex Neb) 0.63 mg Q2H RESP THERAPY PRN HHN WHEEZING AND SOB; Start 09/15/18 at 14:00 Collagenase (Santyl) 1 applic DAILY TOP Last administered on 09/19/18at 09:50; Admin Dose 1 APPLIC; Start 09/16/18 at 15:00 Piperacillin Sod/ Tazobactam Sod 50 ml @ 100 mls/hr Q6 IVPB Last administered on 09/19/18at 05:34; Admin Dose 100 MLS/HR; Start 09/17/18 at 12:00 Famotidine (Pepcid Iv) 20 mg DAILY IV Last administered on 09/19/18at 09:37; Admin Dose 20 MG; Start 09/18/18 at 09:00 Insulin Aspart (Novolog Insulin Pen) NOVOLOG *MILD* ALGORITHM WITH MEALS BEDTIME SC Last administered on 09/18/18at 12:19; Admin Dose 1 UNIT; Start 09/17/18 at 11:30 Acetaminophen/ Hydrocodone Bitart ([place] (5/325)) 1 tab Q6H PRN PO MODERATE PAIN LEVEL 4-6 Last administered on 09/18/18at 21:13; Admin Dose 1 TAB; Start 09/17/18 at 11:30 Methadone HCl (Methadone Liq) 15 mg Q8 PRN PO SEVERE PAIN Last administered on 09/19/18at 09:51; Admin Dose 15 MG; Start 09/17/18 at 18:30 Vancomycin HCl 100 ml @ 100 mls/hr Q36H IVPB Last administered on 09/19/18at 06:06; Admin Dose 100 MLS/HR; Start 09/19/18 at 06:00 Potassium Phosphate 30 mm/ Sodium Chloride 260 ml @ 65 mls/hr ONCE ONCE IVPB ; Start 09/19/18 at 09:00; Stop 09/19/18 at 12:59 Assessment/Plan Hospital Course (Demo Recall) IMPRESSION 1. Likely demand ischemia type 2, non-ST elevation myocardial infarction. No s ignificant right heart failure on echocardiogram 2. Chronic obstructive pulmonary disease with acute exacerbation. 3. Underlying psychiatric disorder. Resumed methadone for chronic pain 4. Dehydration and renal insufficiency. 5. History of venous thromboembolism Plan: 1. Advance diet as tolerated. Aspiration precautions 2. Bronchodilators. 3. Supplemental O2. 4. Steroid taper. 5. Continue Eliquis anticoagulation 6. DVT and GI prophylaxis. 7. PT eval encourage out of bed Stable for transfer to telemetry Critical care time 40 minutes [facility] STE[facility]BERG [facility] Sep 19, 2018 10:46
--- NOTE | 2018-09-19 10:58 | CONS ---
Assessment/Plan Assessment/Plan Hospital Course (Demo Recall) Acute respiratory failure: Due to severe COPD exacerbation. Now resolved NSTEMI: trops 0.5 and trended down. Type II. Echo still with preserved EF History of PE: diagnosed 05/2018. On Eliquis COPD with acute exacerbation Acute renal failure: now normalizing Transaminitis: resolving Pulm HTN: PAP 60s 06/17. Currently 46 on repeat echo Hep C and alcohol cirrhosis heroin use -increase to Eliquis 5mg BID now that Cr <1.5. Continue to trend Hgb. Currently no e/o bleeding -no ASA -no statin -hold amlodipine and coreg.; Possibly start diltiazem instead to avoid BB -COPD management per pulm Consultation Date/Type/Reason Admit Date/Time Sep 15, 2018 at 03:32 Initial Consult Date 09/15/18 Type of Consult Cardiology Date/Time of Note DATE: 09/19/18 TIME: 10:51 24 HR Interval Summary Free Text/Dictation Doing much better. Off oxygen. Cr almost normalized now. Has some nausea but no complaints. No bleeding Exam/Review of Systems Vital Signs Vitals Vital Signs Date Temp Pulse Resp B/P (MAP) Pulse Ox O2 O2 Flow FiO2 Time Delivery Rate 09/19/18 100 20 100 Nasal 1.0 08:39 Cannula 09/19/18 122/68 08:00 (86) 09/19/18 98.5 07:40 09/17/18 24 21:34 Intake and Output 09/18/18 09/18/18 09/19/18 1515:00 23:00 07:00 IntakeIntake Total 1125 ml 430 ml 500 ml OutputOutput Total 685 ml 545 ml 655 ml BalanceBalance 440 ml -115 ml -155 ml Exam Constitutional: alert, oriented Psych: no complaints, nl mood/affect Neck: No jvd Respiratory: diminished breath sounds; No clear to auscultation Cardiovascular: regular rate and rhythm; No edema Gastrointestinal: soft, non-tender; No distended Neurological: nl mental status, nl speech Labs Result Diagram: 09/19/1844009/19/18440 Results 24hrs Laboratory Tests Test 09/18/18 12:12 09/18/18 13:45 09/18/18 17:19 09/18/18 21:25 Bedside Glucose 142 137 154 Urine Color YELLOW Urine Clarity CLEAR Urine pH 6.0 Urine Specific 1.016 [place] Urine Ketones NEGATIVE Urine Nitrite NEGATIVE Urine Bilirubin NEGATIVE Urine Urobilinogen NEGATIVE Urine Leukocyte NEGATIVE Esterase Urine Microscopic 1 RBC Urine Microscopic 1 WBC Urine Bacteria FEW A Urine Eosinophils % 0.0 Urine Hemoglobin 3+ H Urine Random 41.02 Creatinine Urine Random Sodium Urine Glucose NEGATIVE Urine Total Protein 72.0 H Test 09/19/18 04:41 09/19/18 05:31 09/19/18 07:59 White Blood Count 16.8 H Red Blood Count 2.73 L Hemoglobin 8.3 L Hematocrit 26.1 L Mean Corpuscular 95.6 Volume Mean Corpuscular 30.4 Hemoglobin Mean Corpuscular 31.8 L Hemoglobin Concent Red Cell 15.0 H Distribution Width Platelet Count 173 Mean Platelet Volume 12.2 H Immature 1.100 H Granulocytes % Neutrophils % 78.6 H Segmented 79 H Neutrophils % (Manual) Band Neutrophils % 4 (Manual) Lymphocytes % 9.0 L Lymphocytes % 7 L (Manual) Monocytes % 10.6 Monocytes % (Manual) 8 Eosinophils % 0.1 Basophils % 0.6 Promyelocytes % 2 H (Manual) Nucleated Red Blood 1 H Cells % Immature 0.190 H Granulocytes # Neutrophils # 13.3 H Neutrophils # 13.4 H (Manual) Band Neutrophils # 0.6 Lymphocytes (Manual) 1.1 Lymphocytes # 1.5 Monocytes # 1.8 H Monocytes # (Manual) 1.3 H Eosinophils # 0.0 Basophils # 0.1 Promyelocytes # 0.3 H Nucleated Red Blood 0.1 H Cells # Platelet Estimate NORMAL Giant Platelets 1 H Polychromasia 1+ Poikilocytosis 1+ Anisocytosis 1+ Macrocytosis 1+ Ovalocytes 1+ Sodium Level 143 Potassium Level 4.1 Chloride Level 111 H Carbon Dioxide Level 27 Anion Gap 5 Blood Urea Nitrogen 53 H Creatinine 1.15 H Est Glomerular 47 L Filtrat Rate mL/min Glucose Level 120 # Calcium Level 8.4 Phosphorus Level 1.9 L Magnesium Level 1.9 Total Bilirubin 0.4 Direct Bilirubin 0.00 Indirect Bilirubin 0.4 Aspartate Amino 98 H Transf (AST/SGOT) Alanine 194 H Aminotransferase (AL T/SGPT) Alkaline Phosphatase 63 Total Protein 4.8 L Albumin 2.3 L Globulin 2.50 Albumin/Globulin 0.92 Ratio Bedside Glucose 116 100 Medications Medications Current Medications IV Flush (NS 3 ml) 3 ml PER PROTOCOL IV ; Start 09/15/18 at 07:30 Ondansetron HCl (Zofran Inj) 4 mg Q6H PRN IV NAUSEA/VOMITING Last administered on 09/19/18 07:53; Admin Dose 4 MG; Start 09/15/18 at 07:30 Acetaminophen (Tylenol Tab) 650 mg Q6H PRN PO .PAIN 1-3 OR TEMP Last administered on 09/16/18 21:56; Admin Dose 650 MG; Start 09/15/18 at 07:30 Baclofen (Lioresal) 10 mg BID PO Last administered on 09/19/18 09:36; Admin Dose 10 MG; Start 09/15/18 at 09:00 Buspirone HCl (Buspar) 10 mg BID PO Last administered on 09/19/18 09:37; Admin Dose 10 MG; Start 09/15/18 at 09:00 Calcium Carbonate (Oyster Shell Calcium) 1.25 gm BID PO Last administered on 09/19/18 09:37; Admin Dose 1.25 GM; Start 09/15/18 at 09:00 Clonazepam (Klonopin) 0.5 mg DAILY PRN PO ANXIETY Last administered on 09/19/18 01:16; Admin Dose 0.5 MG; Start 09/15/18 at 07:30 Docusate Sodium (Colace) 100 mg BID PO Last administered on 09/19/18 09:36; Admin Dose 100 MG; Start 09/15/18 at 09:00 Rifaximin (Xifaxan) 550 mg BID PO Last administered on 09/19/18 09:37; Admin Dose 550 MG; Start 09/15/18 at 09:00 Sertraline HCl (Zoloft) 100 mg DAILY PO ; Start 09/15/18 at 09:00; Status Hold Fluticasone/ Vilanterol (Breo Ellipta 200-25 Mcg Inh) 1 inh DAILY INH Last administered on 09/19/18 09:39; Admin Dose 1 INH; Start 09/15/18 at 09:00 Methylprednisolone Sodium Succinate (Solu-Medrol) 60 mg DAILY IV Last administered on 09/19/18 09:37; Admin Dose 60 MG; Start 09/15/18 at 09:00 Albuterol/ Ipratropium (Duoneb) 3 ml Q3H RESP THERAPY PRN HHN WHEEZING AND SOB; Start 09/15/18 at 08:00 Vancomycin HCl (Vanco Iv Per Pharmacy) VANCOMYCIN PER PHARMACY PER PROTOCOL XX ; Start 09/15/18 at 09:00 Apixaban (Eliquis) 2.5 mg BID PO Last administered on 09/19/18 09:36; Admin Dose 2.5 MG; Start 09/15/18 at 21:00 Levalbuterol (Xopenex Neb) 0.63 mg Q4H RESP THERAPY HHN Last administered on 09/19/18 08:39; Admin Dose 0.63 MG; Start 09/15/18 at 17:00 Levalbuterol (Xopenex Neb) 0.63 mg Q2H RESP THERAPY PRN HHN WHEEZING AND SOB; Start 09/15/18 at 14:00 Collagenase (Santyl) 1 applic DAILY TOP Last administered on 09/19/18 09:50; Admin Dose 1 APPLIC; Start 09/16/18 at 15:00 Piperacillin Sod/ Tazobactam Sod 50 ml @ 100 mls/hr Q6 IVPB Last administered on 09/19/18 05:34; Admin Dose 100 MLS/HR; Start 09/17/18 at 12:00 Famotidine (Pepcid Iv) 20 mg DAILY IV Last administered on 09/19/18 09:37; Admin Dose 20 MG; Start 09/18/18 at 09:00 Insulin Aspart (Novolog Insulin Pen) NOVOLOG *MILD* ALGORITHM WITH MEALS BEDTIME SC Last administered on 09/18/18 12:19; Admin Dose 1 UNIT; Start 09/17/18 at 11:30 Acetaminophen/ Hydrocodone Bitart ([place] (5/325)) 1 tab Q6H PRN PO MODERATE PAIN LEVEL 4-6 Last administered on 09/18/18 21:13; Admin Dose 1 TAB; Start 09/17/18 at 11:30 Methadone HCl (Methadone Liq) 15 mg Q8 PRN PO SEVERE PAIN Last administered on 09/19/18 09:51; Admin Dose 15 MG; Start 09/17/18 at 18:30 Vancomycin HCl 100 ml @ 100 mls/hr Q36H IVPB Last administered on 09/19/18 06:06; Admin Dose 100 MLS/HR; Start 09/19/18 at 06:00 Potassium Phosphate 30 mm/ Sodium Chloride 260 ml @ 65 mls/hr ONCE ONCE IVPB ; Start 09/19/18 at 09:00; Stop 09/19/18 at 12:59 WILFRID OCAMPO Sep 19, 2018 10:58
[2018-09-19] MEDS: LEVOFLOXACIN 500MG/D5W (PMX) 100 ML IVPB SCH (12:04)
[2018-09-19] MEDS: ZINC SULFATE 220 MG CAP PO SCH (12:23)
[2018-09-19] MEDS: ASCORBIC ACID 500 MG TAB PO SCH (12:23)
[2018-09-19] MEDS: MULTIVITAMINS THERAPEUTIC TAB PO SCH (12:23)
[2018-09-19] MEDS: THIAMINE 100 MG TAB PO SCH (14:21)
[2018-09-20] VITALS: BP 123/72; PULSE 109; PULSE 121; RESP 20
[2018-09-20] MEDS: LEVALBUTEROL (NEB) 0.63 MG/3 ML AMP HHN SCH ×6 (01:00→21:00)
[2018-09-20] MEDS ORDERED: ZOLPIDEM 5 MG TAB PO ONE (03:00)
[2018-09-20 04:00] VITALS: BP 126/75; PULSE 80; RESP 20
[2018-09-20] MEDS: METHADONE (1 MG/ML 5 ML PO UD SYG) PO PRN ×3 (04:10→21:21)
[2018-09-20 07:21] VITALS: BP 130/67; PULSE 109; RESP 16
--- NOTE | 2018-09-20 07:52 | CONS ---
Assessment/Plan Assessment/Plan Hospital Course (Demo Recall) Acute respiratory failure: Due to severe COPD exacerbation. Now resolved NSTEMI: trops 0.5 and trended down. Type II. Echo still with preserved EF History of PE: diagnosed 05/2018. On Eliquis COPD with acute exacerbation Acute renal failure: now resolved Transaminitis: resolving Pulm HTN: PAP 60s 06/17. 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 Will follow PRN Consultation Date/Type/Reason Admit Date/Time Sep 15, 2018 at 03:32 Initial Consult Date 09/15/18 Type of Consult Cardiology Date/Time of Note DATE: 09/20/18 TIME: 07:50 24 HR Interval Summary Free Text/Dictation Sinus tachycardia on tele. Complaining of "gas" but no abdominal pain, N/V. No chest pain. Exam/Review of Systems Vital Signs Vitals Vital Signs Date Temp Pulse Resp B/P (MAP) Pulse Ox O2 O2 Flow FiO2 Time Delivery Rate 09/20/18 98.1 109 16 130/67 99 07:21 (88) 09/20/18 Nasal 04:00 Cannula 09/19/18 21 20:46 09/19/18 1.0 08:39 Intake and Output 09/19/18 09/19/18 09/20/18 1515:00 23:00 07:00 IntakeIntake Total 900 ml 300 ml OutputOutput Total 625 ml 200 ml BalanceBalance 275 ml 100 ml Exam Constitutional: alert, oriented Psych: nl mood/affect Head: normocephalic, atraumatic Neck: No jvd Respiratory: diminished breath sounds; No clear to auscultation Cardiovascular: No regular rate and rhythm (tachycardic, normal rhythm), No systolic murmur Gastrointestinal: soft, non-tender, distended (mild) Neurological: nl mental status, nl speech Labs Result Diagram: 09/20/18 0602 09/20/18 0602 Results 24hrs Laboratory Tests Test 09/19/18 07:59 09/19/18 12:06 09/19/18 17:26 09/19/18 18:45 Bedside Glucose 100 110 194 Stool Occult Blood POSITIVE Test 09/19/18 21:17 09/20/18 06:02 Bedside Glucose 118 White Blood Count 19.1 H Red Blood Count 2.83 L Hemoglobin 8.5 L Hematocrit 27.0 L Mean Corpuscular 95.4 Volume Mean Corpuscular 30.0 Hemoglobin Mean Corpuscular 31.5 L Hemoglobin Concent Red Cell 15.0 H Distribution Width Platelet Count 189 Mean Platelet Volume 12.4 H Immature 1.500 H Granulocytes % Neutrophils % 78.7 H Lymphocytes % 9.6 L Monocytes % 9.4 Eosinophils % 0.2 Basophils % 0.6 Nucleated Red Blood 0.7 H Cells % Immature 0.290 H Granulocytes # Neutrophils # 15.0 H Lymphocytes # 1.8 Monocytes # 1.8 H Eosinophils # 0.0 Basophils # 0.1 Nucleated Red Blood 0.1 H Cells # Sodium Level 141 Potassium Level 4.0 Chloride Level 108 Carbon Dioxide Level 27 Anion Gap 6 Blood Urea Nitrogen 39 #H Creatinine 0.90 Est Glomerular > 60 Filtrat Rate mL/min Glucose Level 109 Calcium Level 8.9 Medications Medications Current Medications IV Flush (NS 3 ml) 3 ml PER PROTOCOL IV ; Start 09/15/18 at 07:30 Ondansetron HCl (Zofran Inj) 4 mg Q6H PRN IV NAUSEA/VOMITING Last administered on 09/19/18 07:53; Admin Dose 4 MG; Start 09/15/18 at 07:30 Acetaminophen (Tylenol Tab) 650 mg Q6H PRN PO .PAIN 1-3 OR TEMP Last administered on 09/16/18 21:56; Admin Dose 650 MG; Start 09/15/18 at 07:30 Baclofen (Lioresal) 10 mg BID PO Last administered on 09/19/18 21:14; Admin Dose 10 MG; Start 09/15/18 at 09:00 Buspirone HCl (Buspar) 10 mg BID PO Last administered on 09/19/18 21:14; Admin Dose 10 MG; Start 09/15/18 at 09:00 Calcium Carbonate (Oyster Shell Calcium) 1.25 gm BID PO Last administered on 09/19/18 21:14; Admin Dose 1.25 GM; Start 09/15/18 at 09:00 Clonazepam (Klonopin) 0.5 mg DAILY PRN PO ANXIETY Last administered on 09/19/18 21:53; Admin Dose 0.5 MG; Start 09/15/18 at 07:30 Docusate Sodium (Colace) 100 mg BID PO Last administered on 09/19/18 21:14; Admin Dose 100 MG; Start 09/15/18 at 09:00 Rifaximin (Xifaxan) 550 mg BID PO Last administered on 09/19/18 21:14; Admin Dose 550 MG; Start 09/15/18 at 09:00 Sertraline HCl (Zoloft) 100 mg DAILY PO ; Start 09/15/18 at 09:00; Status Hold Fluticasone/ Vilanterol (Breo Ellipta 200-25 Mcg Inh) 1 inh DAILY INH Last administered on 09/19/18 09:39; Admin Dose 1 INH; Start 09/15/18 at 09:00 Methylprednisolone Sodium Succinate (Solu-Medrol) 60 mg DAILY IV Last administered on 09/19/18 09:37; Admin Dose 60 MG; Start 09/15/18 at 09:00 Albuterol/ Ipratropium (Duoneb) 3 ml Q3H RESP THERAPY PRN HHN WHEEZING AND SOB; Start 09/15/18 at 08:00 Levalbuterol (Xopenex Neb) 0.63 mg Q4H RESP THERAPY HHN Last administered on 09/19/18 20:46; Admin Dose 0.63 MG; Start 09/15/18 at 17:00 Levalbuterol (Xopenex Neb) 0.63 mg Q2H RESP THERAPY PRN HHN WHEEZING AND SOB; Start 09/15/18 at 14:00 Collagenase (Santyl) 1 applic DAILY TOP Last administered on 09/19/18 09:50; Admin Dose 1 APPLIC; Start 09/16/18 at 15:00 Famotidine (Pepcid Iv) 20 mg DAILY IV Last administered on 09/19/18 09:37; Admin Dose 20 MG; Start 09/18/18 at 09:00 Insulin Aspart (Novolog Insulin Pen) NOVOLOG *MILD* ALGORITHM WITH MEALS BEDTIME SC Last administered on 09/19/18 17:53; Admin Dose 2 UNIT; Start 09/17/18 at 11:30 Acetaminophen/ Hydrocodone Bitart ([place] (5/325)) 1 tab Q6H PRN PO MODERATE PAIN LEVEL 4-6 Last administered on 09/18/18 21:13; Admin Dose 1 TAB; Start 09/17/18 at 11:30 Methadone HCl (Methadone Liq) 15 mg Q8 PRN PO SEVERE PAIN Last administered on 09/20/18 04:10; Admin Dose 15 MG; Start 09/17/18 at 18:30 Apixaban (Eliquis) 5 mg BID PO Last administered on 09/19/18 21:14; Admin Dose 5 MG; Start 09/19/18 at 21:00 Levofloxacin/ Dextrose 100 ml @ 100 mls/hr Q24H IVPB Last administered on 09/19/18 12:04; Admin Dose 100 MLS/HR; Start 09/19/18 at 12:00 Multivitamins Therapeutic (Theragran) 1 tab DAILY PO Last administered on 09/19/18 12:23; Admin Dose 1 TAB; Start 09/19/18 at 12:00 Ascorbic Acid (Vitamin C) 500 mg DAILY PO Last administered on 09/19/18 12:23; Admin Dose 500 MG; Start 09/19/18 at 12:00 Zinc Sulfate (Zinc Sulfate) 220 mg DAILY PO Last administered on 09/19/18 12:23; Admin Dose 220 MG; Start 09/19/18 at 12:00 Thiamine HCl (Vitamin B1) 50 mg DAILY PO Last administered on 09/19/18 14:21; Admin Dose 50 MG; Start 09/19/18 at 12:00 Simethicone (Mylicon) 80 mg Q6H PRN PO DISTENSION/GAS/BLOATING Last administered on 09/20/18 06:45; Admin Dose 80 MG; Start 09/20/18 at 06:30 Diltiazem HCl (Cardizem Cd) 120 mg DAILY PO ; Start 09/20/18 at 09:00 WILFRID OCAMPO Sep 20, 2018 07:52
[2018-09-20] MEDS: INSULIN ASPART [NOVOLOG] 3 ML PEN SC SCH ×4 (07:55→21:00)
[2018-09-20] MEDS: METHYLPREDNISOLONE 125 MG INJ IV SCH (08:23)
[2018-09-20] MEDS: DOCUSATE SODIUM 100 MG CAP PO SCH ×2 (08:24→21:02)
[2018-09-20] MEDS: MULTIVITAMINS THERAPEUTIC TAB PO SCH (08:25)
[2018-09-20] MEDS: RIFAXIMIN 550 MG TAB PO SCH ×2 (08:25→20:59)
[2018-09-20] MEDS: ASCORBIC ACID 500 MG TAB PO SCH (08:25)
[2018-09-20] MEDS: ZINC SULFATE 220 MG CAP PO SCH (08:25)
[2018-09-20] MEDS: APIXABAN 5 MG TABLET PO SCH ×2 (08:25→20:59)
[2018-09-20] MEDS: THIAMINE 100 MG TAB PO SCH (08:25)
[2018-09-20] MEDS: BUSPIRONE 10 MG TAB PO SCH ×2 (08:25→20:59)
[2018-09-20] MEDS: BACLOFEN 10 MG TAB PO SCH ×2 (08:25→21:02)
[2018-09-20] MEDS: CALCIUM CARBONATE 1.25 GM TAB PO SCH ×2 (08:25→20:59)
[2018-09-20] MEDS: FAMOTIDINE 20 MG INJ IV SCH (08:26)
[2018-09-20] MEDS: FLUTICASONE/VILANTEROL 200-25 INH DEVICE INH SCH (08:26)
[2018-09-20] MEDS: BALSAM PERU/CASTOR OIL 60 GM TUBE TOP SCH ×2 (08:27→21:44)
[2018-09-20] MEDS: COLLAGENASE 5 GM (UD JAR) TOP SCH (08:27)
--- NOTE | 2018-09-20 08:31 | CONS ---
Consult Date/Type/Reason Admit Date/Time Sep 15, 2018 at 03:32 Initial Consult Date 09/15/18 Date/Time of Note DATE: 09/20/18 TIME: 08:30 Subjective 68-year-old female with the past medical history of COPD, history of previous PE, psychiatric disorder, chronic kidney disease, hepatitis C, liver disease who was brought in the ER after noticing dyspnea progressively worse and requires to be on BiPAP. On admission, the patient has been weaned down. On the course of the workup, was noted to have renal failure. The patient has had other admissions here with no previous acute renal failure incidents. She continues to have good urine output since she has been here. On steroids, gregory dced PHYSICAL EXAMINATION: HEENT: Normocephalic, atraumatic. Pupils are equal, round, reactive to light. Oropharynx has moist mucous membranes. NECK: Supple. HEART: Regular rate and rhythm. LUNGS: Clear to auscultation. ABDOMEN: Soft, nontender, nondistended. Normal bowel sounds. EXTREMITIES: No clubbing, cyanosis or edema. Objective Vitals Vital Signs Date Temp Pulse Resp B/P (MAP) Pulse Ox O2 O2 Flow FiO2 Time Delivery Rate 09/20/18 98.1 109 16 130/67 99 07:21 (88) 09/20/18 Nasal 04:00 Cannula 09/19/18 21 20:46 09/19/18 1.0 08:39 Intake and Output 09/19/18 09/19/18 09/20/18 1515:00 23:00 07:00 IntakeIntake Total 900 ml 300 ml OutputOutput Total 625 ml 200 ml BalanceBalance 275 ml 100 ml Results/Medications Result Diagram: 09/20/18 0602 09/20/18 0602 Results 24 hrs Laboratory Tests Test 09/19/18 12:06 09/19/18 17:26 09/19/18 18:45 09/19/18 21:17 Bedside Glucose 110 194 118 Stool Occult Blood POSITIVE Test 09/20/18 06:02 09/20/18 08:24 White Blood Count 19.1 H Red Blood Count 2.83 L Hemoglobin 8.5 L Hematocrit 27.0 L Mean Corpuscular 95.4 Volume Mean Corpuscular 30.0 Hemoglobin Mean Corpuscular 31.5 L Hemoglobin Concent Red Cell 15.0 H Distribution Width Platelet Count 189 Mean Platelet Volume 12.4 H Immature 1.500 H Granulocytes % Neutrophils % 78.7 H Lymphocytes % 9.6 L Monocytes % 9.4 Eosinophils % 0.2 Basophils % 0.6 Nucleated Red Blood 0.7 H Cells % Immature 0.290 H Granulocytes # Neutrophils # 15.0 H Lymphocytes # 1.8 Monocytes # 1.8 H Eosinophils # 0.0 Basophils # 0.1 Nucleated Red Blood 0.1 H Cells # Sodium Level 141 Potassium Level 4.0 Chloride Level 108 Carbon Dioxide Level 27 Anion Gap 6 Blood Urea Nitrogen 39 #H Creatinine 0.90 Est Glomerular > 60 Filtrat Rate mL/min Glucose Level 109 Calcium Level 8.9 Bedside Glucose 122 Home Meds Active Scripts Pantoprazole* (Pantoprazole*) 40 Mg Tablet.dr, 40 MG PO DAILY@06 for 14 Days, #14 Prov:RICKIE DALTON MD 06/12/18 Apixaban* (Eliquis*) 5 Mg Tablet, 10 MG PO BID for 30 Days, #60 TAB 10 mg twice daily for 5 days, then 5 mg twice daily Prov:RICKIE DALTON MD 06/12/18 Methadone Hcl* (Methadone*) 5 Mg/5 Ml Solution, 68 MG PO DAILY for 30 Days, ML Prov:STU ORTEZ 04/14/18 Salmeterol Xinaf/Fluticasone* (Advair*) 250-50 Diskus Inhaler, 1 INH INHALATION BID for 30 Days, #1 INHALER Prov:ZHANG WARE NP 02/28/16 Albuterol Sulfate* (Proair HFA*) 8.5 Gm Hfa.aer.ad, 2 PUFF INH Q6 for SHORTNESS OF BREATH for 14 Days, #1 INHALER Prov:ZHANG WARE NP 02/28/16 Reported Medications Sertraline Hcl* (Sertraline Hcl*) 25 Mg Tablet, 25 MG PO DAILY, #30 TAB 09/15/18 Buspirone Hcl* (Buspirone Hcl*) 10 Mg Tab, 10 MG PO BID, TAB 09/15/18 Clonazepam* (Clonazepam*) 0.5 Mg Tablet, 0.5 MG PO DAILY PRN for ANXIETY, TAB 09/15/18 Ipratropium-Albuterol (Ipratropium-Albuterol) 0.5-3 Mg/3 Ml Ampul.neb, 3 ML INHALATION Q6 PRN for WHEEZING AND SOB, #30 VIAL 09/15/18 Carvedilol* (Carvedilol*) 6.25 Mg Tablet, 6.25 MG PO BID, #60 TAB 09/15/18 Cholecalciferol (Vitamin D3) (VITAMIN D-3) 2,000 Unit Capsule, 2000 U PO DAILY for 30 Days 04/30/18 Amlodipine Besylate* (Amlodipine Besylate*) 5 Mg Tablet, 5 MG PO DAILY for 30 Days, #30 04/30/18 Baclofen* (Baclofen*) 10 Mg Tablet, 10 MG PO BID 04/30/18 Calcium Carbonate ([id number]) 500 Mg Tablet, 500 MG PO BID, TAB 04/30/18 Discontinued Reported Medications Docusate Sodium* (Docusate Sodium*) 100 Mg Capsule, 100 MG PO BID, #60 CAP 04/30/18 Discontinued Scripts Oxymetazoline Hcl* (Afrin [place]*) 0.05% - 15 Ml [place], 2 SPRAY NASAL BID for 7 Days, #1 SPRAY 2 Refills Prov:RICKIE DALTON MD 06/12/18 Lactulose* (Lactulose*) 20 Gm/30 Ml Solution, 30 GM PO Q8 for 14 Days, #14 1 Refill Pharmacy: Dispensed 2-week supply with 1 refill Prov:RICKIE DALTON MD 06/12/18 Acetaminophen* (Tylenol*) 325 Mg Tablet, 650 MG PO Q6H PRN for .PAIN 1-3 OR TEMP for 7 Days, TAB Prov:RICKIE DALTON MD 06/12/18 Rifaximin* (Xifaxan*) 550 Mg Tablet, 550 MG PO BID for 14 Days, #30 TAB Prov:RICKIE DALTON MD 06/12/18 Loperamide Hcl* (Imodium*) 2 Mg Capsule, 2 MG PO .AFTER EA LOOSE BM PRN for D IARRHEA, #10 TAB Prov:ADAMS MAK MD 04/30/18 Ondansetron (Ondansetron Odt) 4 Mg Tab.rapdis, 4 MG PO Q6H PRN for NAUSEA AND/OR VOMITING, #10 TAB Prov:ADAMS MAK MD 04/30/18 Hydroxyzine Hcl* (Hydroxyzine Hcl*) 10 Mg Tablet, 10 MG PO TID, #20 TAB Prov:CASA RIOJAS MD 01/10/18 Sertraline Hcl* (Sertraline Hcl*) 100 Mg Tablet, 100 MG PO DAILY for 30 Days, TAB Prov:ZHANG WARE NP 02/28/16 Medications Current Medications IV Flush (NS 3 ml) 3 ml PER PROTOCOL IV ; Start 09/15/18 at 07:30 Ondansetron HCl (Zofran Inj) 4 mg Q6H PRN IV NAUSEA/VOMITING Last administered on 09/19/18 07:53; Admin Dose 4 MG; Start 09/15/18 at 07:30 Acetaminophen (Tylenol Tab) 650 mg Q6H PRN PO .PAIN 1-3 OR TEMP Last administered on 09/16/18 21:56; Admin Dose 650 MG; Start 09/15/18 at 07:30 Baclofen (Lioresal) 10 mg BID PO Last administered on 09/19/18 21:14; Admin Dose 10 MG; Start 09/15/18 at 09:00 Buspirone HCl (Buspar) 10 mg BID PO Last administered on 09/19/18 21:14; Admin Dose 10 MG; Start 09/15/18 at 09:00 Calcium Carbonate (Oyster Shell Calcium) 1.25 gm BID PO Last administered on 09/19/18 21:14; Admin Dose 1.25 GM; Start 09/15/18 at 09:00 Clonazepam (Klonopin) 0.5 mg DAILY PRN PO ANXIETY Last administered on 09/19/18 21:53; Admin Dose 0.5 MG; Start 09/15/18 at 07:30 Docusate Sodium (Colace) 100 mg BID PO Last administered on 09/19/18 21:14; Admin Dose 100 MG; Start 09/15/18 at 09:00 Rifaximin (Xifaxan) 550 mg BID PO Last administered on 09/19/18 21:14; Admin D ose 550 MG; Start 09/15/18 at 09:00 Sertraline HCl (Zoloft) 100 mg DAILY PO ; Start 09/15/18 at 09:00; Status Hold Fluticasone/ Vilanterol (Breo Ellipta 200-25 Mcg Inh) 1 inh DAILY INH Last administered on 09/19/18 09:39; Admin Dose 1 INH; Start 09/15/18 at 09:00 Methylprednisolone Sodium Succinate (Solu-Medrol) 60 mg DAILY IV Last administered on 09/19/18 09:37; Admin Dose 60 MG; Start 09/15/18 at 09:00 Albuterol/ Ipratropium (Duoneb) 3 ml Q3H RESP THERAPY PRN HHN WHEEZING AND SOB; Start 09/15/18 at 08:00 Levalbuterol (Xopenex Neb) 0.63 mg Q4H RESP THERAPY HHN Last administered on 09/19/18 20:46; Admin Dose 0.63 MG; Start 09/15/18 at 17:00 Levalbuterol (Xopenex Neb) 0.63 mg Q2H RESP THERAPY PRN HHN WHEEZING AND SOB; Start 09/15/18 at 14:00 Collagenase (Santyl) 1 applic DAILY TOP Last administered on 09/19/18 09:50; Admin Dose 1 APPLIC; Start 09/16/18 at 15:00 Famotidine (Pepcid Iv) 20 mg DAILY IV Last administered on 09/19/18 09:37; Admin Dose 20 MG; Start 09/18/18 at 09:00 Insulin Aspart (Novolog Insulin Pen) NOVOLOG *MILD* ALGORITHM WITH MEALS BEDTIME SC Last administered on 09/19/18 17:53; Admin Dose 2 UNIT; Start 09/17/18 at 11:30 Acetaminophen/ Hydrocodone Bitart ([place] (5/325)) 1 tab Q6H PRN PO MODERATE PAIN LEVEL 4-6 Last administered on 09/18/18 21:13; Admin Dose 1 TAB; Start 09/17/18 at 11:30 Methadone HCl (Methadone Liq) 15 mg Q8 PRN PO SEVERE PAIN Last administered on 09/20/18 04:10; Admin Dose 15 MG; Start 09/17/18 at 18:30 Apixaban (Eliquis) 5 mg BID PO Last administered on 09/19/18 21:14; Admin Dose 5 MG; Start 09/19/18 at 21:00 Levofloxacin/ Dextrose 100 ml @ 100 mls/hr Q24H IVPB Last administered on 09/19/18 12:04; Admin Dose 100 MLS/HR; Start 09/19/18 at 12:00 Multivitamins Therapeutic (Theragran) 1 tab DAILY PO Last administered on 09/19/18 12:23; Admin Dose 1 TAB; Start 09/19/18 at 12:00 Ascorbic Acid (Vitamin C) 500 mg DAILY PO Last administered on 09/19/18 12:23; Admin Dose 500 MG; Start 09/19/18 at 12:00 Zinc Sulfate (Zinc Sulfate) 220 mg DAILY PO Last administered on 09/19/18 12:23; Admin Dose 220 MG; Start 09/19/18 at 12:00 Thiamine HCl (Vitamin B1) 50 mg DAILY PO Last administered on 09/19/18 14:21; Admin Dose 50 MG; Start 09/19/18 at 12:00 Simethicone (Mylicon) 80 mg Q6H PRN PO DISTENSION/GAS/BLOATING Last administered on 09/20/18 06:45; Admin Dose 80 MG; Start 09/20/18 at 06:30 Diltiazem HCl (Cardizem Cd) 120 mg DAILY PO ; Start 09/20/18 at 09:00 Assessment/Plan Hospital Course (Demo Recall) 1. Acute renal insufficiency, possibly vasomotor nephropathy, rule out acute tubular necrosis, obstructive uropathy, or interstitial cystitis. - stabilized and improving at good interval. off ivf. - watch for diuretic phase of russ with electrolyte wasting. - All medications are dosed appropriately for renal function. 2. Acute respiratory failure, likely related to chronic obstructive pulmonary disease exacerbation. Steroid taper, bronchodilators, pulmonary followup. 3. Non-ST myocardial infarction, likely demand ischemia type 2. Cardiology is following. Medication optimized. 4. Sepsis, unknown source, possibly evolving pneumonia although impressed by the chest x-ray. Continue to monitor. 5. Elevated transaminases with the history of hepatitis C. fu abdominal imaging. ultrasound nondiagnostic sec to bowel gas. 6. Hyponatremia, likely related to total body water deficit. corrected wth iv. monitor off. CHELSIE RAMÍREZ MD Sep 20, 2018 08:31
[2018-09-20] MEDS: DILTIAZEM (CD) 120 MG CAP PO SCH (08:49)
[2018-09-20 11:29] VITALS: BP 140/75; PULSE 112; RESP 15
[2018-09-20] MEDS: LEVOFLOXACIN 500MG/D5W (PMX) 100 ML IVPB SCH (12:22)
--- NOTE | 2018-09-20 14:10 | CONS ---
Consult Date/Type/Reason Admit Date/Time Sep 15, 2018 at 03:32 Initial Consult Date 09/15/18 Type of Consult Pulmonary Date/Time of Note DATE: 09/20/18 TIME: 14:10 Subjective Patient comfortable this morning no respiratory distress. Objective Vital Signs Date Temp Pulse Resp B/P (MAP) Pulse Ox O2 O2 Flow FiO2 Time Delivery Rate 09/20/18 98.1 112 15 140/75 99 11:29 (96) 09/20/18 Nasal 04:00 Cannula 09/19/18 21 20:46 09/19/18 1.0 08:39 Intake and Output 09/19/18 09/19/18 09/20/18 1515:00 23:00 07:00 IntakeIntake Total 900 ml 300 ml OutputOutput Total 625 ml 200 ml BalanceBalance 275 ml 100 ml Exam PHYSICAL EXAMINATION: GENERAL: Thin, elderly-appearing lady, appears comfortable at rest, no acute distress. VITAL SIGNS: NECK: Supple. JVD is not elevated. CARDIAC: S1, S2, no added sounds or murmurs. CHEST: Diminished air entry bilaterally. ABDOMEN: Soft, nontender. No guarding or rebound. EXTREMITIES: No cyanosis, clubbing, 1+ edema. NEUROLOGIC: Grossly intact Vent Setting Fraction of Inspired Oxygen pe: 21 Results/Medications Result Diagram: 09/20/18 0602 09/20/18 0602 Results 24 hrs Laboratory Tests Test 09/19/18 17:26 09/19/18 18:45 09/19/18 21:17 09/20/18 06:02 Bedside Glucose 194 118 Stool Occult Blood POSITIVE White Blood Count 19.1 H Red Blood Count 2.83 L Hemoglobin 8.5 L Hematocrit 27.0 L Mean Corpuscular 95.4 Volume Mean Corpuscular 30.0 Hemoglobin Mean Corpuscular 31.5 L Hemoglobin Concent Red Cell 15.0 H Distribution Width Platelet Count 189 Mean Platelet 12.4 H Volume Immature 1.500 H Granulocytes % Neutrophils % 78.7 H Lymphocytes % 9.6 L Monocytes % 9.4 Eosinophils % 0.2 Basophils % 0.6 Nucleated Red 0.7 H Blood Cells % Immature 0.290 H Granulocytes # Neutrophils # 15.0 H Lymphocytes # 1.8 Monocytes # 1.8 H Eosinophils # 0.0 Basophils # 0.1 Nucleated Red 0.1 H Blood Cells # Sodium Level 141 Potassium Level 4.0 Chloride Level 108 Carbon Dioxide 27 Level Anion Gap 6 Blood Urea 39 #H Nitrogen Creatinine 0.90 Est Glomerular > 60 Filtrat Rate mL/min Glucose Level 109 Calcium Level 8.9 Test 09/20/18 08:24 09/20/18 11:26 09/20/18 12:18 Bedside Glucose 122 145 Lab Scanned Report REFERENCE LAB Medications Current Medications IV Flush (NS 3 ml) 3 ml PER PROTOCOL IV ; Start 09/15/18 at 07:30 Ondansetron HCl (Zofran Inj) 4 mg Q6H PRN IV NAUSEA/VOMITING Last administered on 09/19/18 07:53; Admin Dose 4 MG; Start 09/15/18 at 07:30 Acetaminophen (Tylenol Tab) 650 mg Q6H PRN PO .PAIN 1-3 OR TEMP Last administer ed on 09/16/18 21:56; Admin Dose 650 MG; Start 09/15/18 at 07:30 Baclofen (Lioresal) 10 mg BID PO Last administered on 09/20/18 08:25; Admin Dose 10 MG; Start 09/15/18 at 09:00 Buspirone HCl (Buspar) 10 mg BID PO Last administered on 09/20/18 08:25; Admin Dose 10 MG; Start 09/15/18 at 09:00 Calcium Carbonate (Oyster Shell Calcium) 1.25 gm BID PO Last administered on 09/20/18 08:25; Admin Dose 1.25 GM; Start 09/15/18 at 09:00 Clonazepam (Klonopin) 0.5 mg DAILY PRN PO ANXIETY Last administered on 09/19/18 21:53; Admin Dose 0.5 MG; Start 09/15/18 at 07:30 Docusate Sodium (Colace) 100 mg BID PO Last administered on 09/20/18 08:24; Admin Dose 100 MG; Start 09/15/18 at 09:00 Rifaximin (Xifaxan) 550 mg BID PO Last administered on 09/20/18 08:25; Admin Dose 550 MG; Start 09/15/18 at 09:00 Sertraline HCl (Zoloft) 100 mg DAILY PO ; Start 09/15/18 at 09:00; Status Hold Fluticasone/ Vilanterol (Breo Ellipta 200-25 Mcg Inh) 1 inh DAILY INH Last administered on 09/20/18 08:26; Admin Dose 1 INH; Start 09/15/18 at 09:00 Methylprednisolone Sodium Succinate (Solu-Medrol) 60 mg DAILY IV Last administered on 09/20/18 08:23; Admin Dose 60 MG; Start 09/15/18 at 09:00 Albuterol/ Ipratropium (Duoneb) 3 ml Q3H RESP THERAPY PRN HHN WHEEZING AND SOB; Start 09/15/18 at 08:00 Levalbuterol (Xopenex Neb) 0.63 mg Q4H RESP THERAPY HHN Last administered on 09/19/18 20:46; Admin Dose 0.63 MG; Start 09/15/18 at 17:00 Levalbuterol (Xopenex Neb) 0.63 mg Q2H RESP THERAPY PRN HHN WHEEZING AND SOB; Start 09/15/18 at 14:00 Collagenase (Santyl) 1 applic DAILY TOP Last administered on 09/20/18 08:27; Admin Dose 1 APPLIC; Start 09/16/18 at 15:00 Famotidine (Pepcid Iv) 20 mg DAILY IV Last administered on 09/20/18 08:26; Admin Dose 20 MG; Start 09/18/18 at 09:00 Insulin Aspart (Novolog Insulin Pen) NOVOLOG *MILD* ALGORITHM WITH MEALS BEDTIME SC Last administered on 09/20/18 12:21; Admin Dose 1 UNIT; Start 09/17/18 at 11:30 Acetaminophen/ Hydrocodone Bitart ([place] (5/325)) 1 tab Q6H PRN PO MODERATE PAIN LEVEL 4-6 Last administered on 09/18/18 21:13; Admin Dose 1 TAB; Start 09/17/18 at 11:30 Methadone HCl (Methadone Liq) 15 mg Q8 PRN PO SEVERE PAIN Last administered on 09/20/18 12:23; Admin Dose 15 MG; Start 09/17/18 at 18:30 Apixaban (Eliquis) 5 mg BID PO Last administered on 09/20/18 08:25; Admin Dose 5 MG; Start 09/19/18 at 21:00 Levofloxacin/ Dextrose 100 ml @ 100 mls/hr Q24H IVPB Last administered on 09/20/18 12:22; Admin Dose 100 MLS/HR; Start 09/19/18 at 12:00 Multivitamins Therapeutic (Theragran) 1 tab DAILY PO Last administered on 09/20/18at 08:25; Admin Dose 1 TAB; Start 09/19/18 at 12:00 Ascorbic Acid (Vitamin C) 500 mg DAILY PO Last administered on 09/20/18 08:25; Admin Dose 500 MG; Start 09/19/18 at 12:00 Zinc Sulfate (Zinc Sulfate) 220 mg DAILY PO Last administered on 09/20/18 08:25; Admin Dose 220 MG; Start 09/19/18 at 12:00 Thiamine HCl (Vitamin B1) 50 mg DAILY PO Last administered on 09/20/18 08:25; Admin Dose 50 MG; Start 09/19/18 at 12:00 Simethicone (Mylicon) 80 mg Q6H PRN PO DISTENSION/GAS/BLOATING Last administered on 09/20/18at 06:45; Admin Dose 80 MG; Start 09/20/18 at 06:30 Diltiazem HCl (Cardizem Cd) 120 mg DAILY PO Last administered on 09/20/18at 08:49; Admin Dose 120 MG; Start 09/20/18 at 09:00 Assessment/Plan Hospital Course (Demo Recall) IMPRESSION 1. Likely demand ischemia type 2, non-ST elevation myocardial infarction. No significant right heart failure on echocardiogram 2. Chronic obstructive pulmonary disease with acute exacerbation. 3. Underlying psychiatric disorder. Resumed methadone for chronic pain 4. Dehydration and renal insufficiency. 5. History of venous thromboembolism Plan: 1. Advance diet as tolerated. Aspiration precautions 2. Bronchodilators. 3. Supplemental O2. 4. Steroid taper. 5. Continue Eliquis anticoagulation 6. DVT and GI prophylaxis. 7. PT eval encourage out of bed Patient will need long term facility placement. EMMA STEINBERG MD, [facility] Sep 20, 2018 14:10
[2018-09-20 15:16] VITALS: BP 176/73; PULSE 109; RESP 16
--- NOTE | 2018-09-20 16:41 | PN ---
Date/Time of Note Date/Time of Note DATE: 09/20/18 TIME: 16:40 Assessment/Plan VTE Prophylaxis Risk score (from Ns)>0 risk: 8 SCD applied (from Ns): Yes Pharmacological prophylaxis: apixaban Lines/Catheters IV [facility]ter [facility]from [facility]): Mid Line Urinary Cath still in place: No Assessment/Plan Assessment/Plan 68-year-old female history COPD, PE May 2018, CKD, who presents with: 1. Hypoxic and hypercapnic respiratory failure: Slowly improving, most likely secondary to COPD exacerbation, with likely superimposed pneumonia given the chest x-ray findings. -For now continue supplemental oxygen, bronchodilators, broad-spectrum antibiotics -DuoNebs, follow further recommendations from pulmonary consult -Have change methadone to a lower dose and also to as needed status given the respiratory failure patient presented with, continue cautiously -For now cautiously continue pured diet, will obtain PT eval - Continue Eliquis for PE in May 2018. 2. NSTEMI-First troponin 0.57. It was 0.407 in May of this year when she was diagnosed with PE, at that time she was diagnosed with a type II event. -Monitor serial troponin -Follow-up recommendations from cardiology consult -Continue Eliquis 3. Sepsis: Unknown source-although pneumonia is high on the differential. Again nares are positive for MRSA. Also waiting for UA results. Lactic acid was high on admission, trending down now. -Continue broad-spectrum IV antibiotics, monitor WBC (more elevated today, but no fevers, likely secondary to IV steroids patient is been getting) -Follow-up final culture results -continue IV fluids, Tylenol PRN pain and fevers 4. Acute renal insufficiency: Likely prerenal. Creatinine much improved in the last 24 hours, patient has adequate urine output. Renal team on the case. -For now continue half-normal saline IV fluids -follow-up further renal recommendations 5. Elevated transaminases: Found on admission. Trending down now, likely secondary to the septic shock patient came in with. Patient with a known history of hep C liver disease -Monitor 6. Hypernatremia: Resolved now, suspect from dehydration -We will stop D5W IV fluids, and switch to half-normal saline, monitor basic metabolic panel the a.m. 7. Anemia - Downtrending Hgb. - Will check stool occult blood. No bowel movement since admission. Critical care time spent in patient care today equals 45 minutes. Result Diagram: 09/20/18 0602 09/20/18 0602 Subjective 24 Hr Interval Summary Free Text/Dictation No acute overnight events. Patient doing well. Not cooperative with physical therapy today. Exam/Review of Systems Exam Vitals Vital Signs Date Temp Pulse Resp B/P (MAP) Pulse Ox O2 O2 Flow FiO2 Time Delivery Rate 09/20/18 98.7 109 16 176/73 99 15:16 (107) 09/20/18 Nasal 04:00 Cannula 09/19/18 21 20:46 09/19/18 1.0 08:39 Intake and Output 09/19/18 09/19/18 09/20/18 1515:00 23:00 07:00 IntakeIntake Total 900 ml 300 ml OutputOutput Total 625 ml 200 ml BalanceBalance 275 ml 100 ml Exam Gen: Thin frail appearing woman lying in bed, awake and alert. Head: Atraumatic Eyes: Normal Conjunctiva ENT: Normal External Ears, Nose and Mouth. Neck: Full range of motion. No meningismus. Resp: Clear to auscultation bilaterally Cardio: Hyperdynamic precordium. Regular rate and rhythm, no murmurs Abd: Soft, non tender, non distended. Normal bowel sounds Ext: No bilateral lower extremity edema Results Results 24hrs Laboratory Tests Test 09/19/18 17:26 09/19/18 18:45 09/19/18 21:17 09/20/18 06:02 Bedside Glucose 194 118 Stool Occult Blood POSITIVE White Blood Count 19.1 H Red Blood Count 2.83 L Hemoglobin 8.5 L Hematocrit 27.0 L Mean Corpuscular 95.4 Volume Mean Corpuscular 30.0 Hemoglobin Mean Corpuscular 31.5 L Hemoglobin Concent Red Cell 15.0 H Distribution Width Platelet Count 189 Mean Platelet 12.4 H Volume Immature 1.500 H Granulocytes % Neutrophils % 78.7 H Lymphocytes % 9.6 L Monocytes % 9.4 Eosinophils % 0.2 Basophils % 0.6 Nucleated Red 0.7 H Blood Cells % Immature 0.290 H Granulocytes # Neutrophils # 15.0 H Lymphocytes # 1.8 Monocytes # 1.8 H Eosinophils # 0.0 Basophils # 0.1 Nucleated Red 0.1 H Blood Cells # Sodium Level 141 Potassium Level 4.0 Chloride Level 108 Carbon Dioxide 27 Level Anion Gap 6 Blood Urea 39 #H Nitrogen Creatinine 0.90 Est Glomerular > 60 Filtrat Rate mL/min Glucose Level 109 Calcium Level 8.9 Test 09/20/18 08:24 09/20/18 11:26 09/20/18 12:18 Bedside Glucose 122 145 Lab Scanned Report REFERENCE LAB Medications Medication Current Medications IV Flush (NS 3 ml) 3 ml PER PROTOCOL IV ; Start 09/15/18 at 07:30 Ondansetron HCl (Zofran Inj) 4 mg Q6H PRN IV NAUSEA/VOMITING Last administered on 09/19/18 07:53; Admin Dose 4 MG; Start 09/15/18 at 07:30 Acetaminophen (Tylenol Tab) 650 mg Q6H PRN PO .PAIN 1-3 OR TEMP Last administered on 09/16/18 21:56; Admin Dose 650 MG; Start 09/15/18 at 07:30 Baclofen (Lioresal) 10 mg BID PO Last administered on 09/20/18 08:25; Admin Dose 10 MG; Start 09/15/18 at 09:00 Buspirone HCl (Buspar) 10 mg BID PO Last administered on 09/20/18 08:25; Admin Dose 10 MG; Start 09/15/18 at 09:00 Calcium Carbonate (Oyster Shell Calcium) 1.25 gm BID PO Last administered on 09/20/18 08:25; Admin Dose 1.25 GM; Start 09/15/18 at 09:00 Clonazepam (Klonopin) 0.5 mg DAILY PRN PO ANXIETY Last administered on 9at 21:53; Admin Dose 0.5 MG; Start 09/15/18 at 07:30 Docusate Sodium (Colace) 100 mg BID PO Last administered on 09/20/18 08:24; Admin Dose 100 MG; Start 09/15/18 at 09:00 Rifaximin (Xifaxan) 550 mg BID PO Last administered on 09/20/18 08:25; Admin Dose 550 MG; Start 09/15/18 at 09:00 Sertraline HCl (Zoloft) 100 mg DAILY PO ; Start 09/15/18 at 09:00; Status Hold Fluticasone/ Vilanterol (Breo Ellipta 200-25 Mcg Inh) 1 inh DAILY INH Last administered on 09/20/18 08:26; Admin Dose 1 INH; Start 09/15/18 at 09:00 Methylprednisolone Sodium Succinate (Solu-Medrol) 60 mg DAILY IV Last adminis tered on 09/20/18 08:23; Admin Dose 60 MG; Start 09/15/18 at 09:00 Albuterol/ Ipratropium (Duoneb) 3 ml Q3H RESP THERAPY PRN HHN WHEEZING AND SOB; Start 09/15/18 at 08:00 Levalbuterol (Xopenex Neb) 0.63 mg Q4H RESP THERAPY HHN Last administered on 09/19/18 20:46; Admin Dose 0.63 MG; Start 09/15/18 at 17:00 Levalbuterol (Xopenex Neb) 0.63 mg Q2H RESP THERAPY PRN HHN WHEEZING AND SOB; Start 09/15/18 at 14:00 Collagenase (Santyl) 1 applic DAILY TOP Last administered on 09/20/18 08:27; Admin Dose 1 APPLIC; Start 09/16/18 at 15:00 Famotidine (Pepcid Iv) 20 mg DAILY IV Last administered on 09/20/18 08:26; Admin Dose 20 MG; Start 09/18/18 at 09:00 Insulin Aspart (Novolog Insulin Pen) NOVOLOG *MILD* ALGORITHM WITH MEALS BEDTIME SC Last administered on 09/20/18 12:21; Admin Dose 1 UNIT; Start 09/17/18 at 11:30 Acetaminophen/ Hydrocodone Bitart ([place] (5/325)) 1 tab Q6H PRN PO MODERATE PAIN LEVEL 4-6 Last administered on 09/18/18 21:13; Admin Dose 1 TAB; Start 09/17/18 at 11:30 Methadone HCl (Methadone Liq) 15 mg Q8 PRN PO SEVERE PAIN Last administered on 09/20/18 12:23; Admin Dose 15 MG; Start 09/17/18 at 18:30 Apixaban (Eliquis) 5 mg BID PO Last administered on 09/20/18 08:25; Admin Dose 5 MG; Start 09/19/18 at 21:00 Levofloxacin/ Dextrose 100 ml @ 100 mls/hr Q24H IVPB Last administered on 09/20/18 12:22; Admin Dose 100 MLS/HR; Start 09/19/18 at 12:00 Multivitamins Therapeutic (Theragran) 1 tab DAILY PO Last administered on 09/20/18 08:25; Admin Dose 1 TAB; Start 09/19/18 at 12:00 Ascorbic Acid (Vitamin C) 500 mg DAILY PO Last administered on 09/20/18 08:25; Admin Dose 500 MG; Start 09/19/18 at 12:00 Zinc Sulfate (Zinc Sulfate) 220 mg DAILY PO Last administered on 09/20/18 08:25; Admin Dose 220 MG; Start 09/19/18 at 12:00 Thiamine HCl (Vitamin B1) 50 mg DAILY PO Last administered on 09/20/18 08:25; Admin Dose 50 MG; Start 09/19/18 at 12:00 Simethicone (Mylicon) 80 mg Q6H PRN PO DISTENSION/GAS/BLOATING Last administered on 09/20/18 06:45; Admin Dose 80 MG; Start 09/20/18 at 06:30 Diltiazem HCl (Cardizem Cd) 120 mg DAILY PO Last administered on 09/20/18 08:49; Admin Dose 120 MG; Start 09/20/18 at 09:00 PRASHANT HILTON MD Sep 20, 2018 16:41
[2018-09-20 19:49] VITALS: BP 132/68; PULSE 109; RESP 22
[2018-09-21] VITALS (7 sets, daily range): BP systolic 116–144; BP diastolic 61–70; PULSE 98–114; RESP 15–20
[2018-09-21] MEDS: LEVALBUTEROL (NEB) 0.63 MG/3 ML AMP HHN SCH ×7 (01:00→21:08)
[2018-09-21] MEDS: clonAZEPAM 0.5 MG TAB PO PRN (01:00)
[2018-09-21] MEDS: ZOLPIDEM 5 MG TAB PO PRN (02:31)
--- NOTE | 2018-09-21 07:45 | CONS ---
Consult Date/Type/Reason Admit Date/Time Sep 15, 2018 at 03:32 Initial Consult Date 09/15/18 Date/Time of Note DATE: 09/21/18 TIME: 07:44 Objective Vitals Vital Signs Date Temp Pulse Resp B/P (MAP) Pulse Ox O2 O2 Flow FiO2 Time Delivery Rate 09/21/18 98.0 114 18 116/65 99 07:31 (82) 09/21/18 Nasal 2.0 07:30 Cannula 09/19/18 21 20:46 Intake and Output 09/20/18 09/20/18 09/21/18 1515:00 23:00 07:00 IntakeIntake Total 500 ml 430 ml 500 ml BalanceBalance 500 ml 430 ml 500 ml Exam 68-year-old female with the past medical history of COPD, history of previous PE, psychiatric disorder, chronic kidney disease, hepatitis C, liver disease who was brought in the ER after noticing dyspnea progressively worse and requires to be on BiPAP. On admission, the patient has been weaned down. On the course of the workup, was noted to have renal failure. She continues to have good urine output since she has been here. clinically improved. PHYSICAL EXAMINATION: HEENT: Normocephalic, atraumatic. Pupils are equal, round, reactive to light. Oropharynx has moist mucous membranes. NECK: Supple. HEART: Regular rate and rhythm. LUNGS: Clear to auscultation. ABDOMEN: Soft, nontender, nondistended. Normal bowel sounds. EXTREMITIES: No clubbing, cyanosis or edema. Results/Medications Result Diagram: 09/21/18 0637 09/21/18 0637 Results 24 hrs Laboratory Tests Test 09/20/18 08:24 09/20/18 11:26 09/20/18 12:18 09/20/18 17:30 Bedside Glucose 122 145 162 Lab Scanned Report REFERENCE LAB Test 09/20/18 21:30 09/21/18 06:37 Bedside Glucose 165 White Blood Count 22.2 H Red Blood Count 2.65 L Hemoglobin 8.0 L Hematocrit 26.0 L Mean Corpuscular 98.1 Volume Mean Corpuscular 30.2 Hemoglobin Mean Corpuscular 30.8 L Hemoglobin Concent Red Cell 14.9 H Distribution Width Platelet Count 234 # Mean Platelet 12.0 H Volume Immature 1.200 H Granulocytes % Neutrophils % 80.8 H Lymphocytes % 10.4 L Monocytes % 6.8 Eosinophils % 0.2 Basophils % 0.6 Nucleated Red 0.4 H Blood Cells % Immature 0.260 H Granulocytes # Neutrophils # 17.9 H Lymphocytes # 2.3 Monocytes # 1.5 H Eosinophils # 0.1 Basophils # 0.1 Nucleated Red 0.1 H Blood Cells # Sodium Level 135 Potassium Level 4.3 Chloride Level 105 Carbon Dioxide 27 Level Anion Gap 3 L Blood Urea 36 H Nitrogen Creatinine 0.86 Est Glomerular > 60 Filtrat Rate mL/min Glucose Level 112 Calcium Level 8.3 L Home Meds Active Scripts Pantoprazole* (Pantoprazole*) 40 Mg Tablet.dr, 40 MG PO DAILY@06 for 14 Days, #14 Prov:RICKIE DALTON MD 06/12/18 Apixaban* (Eliquis*) 5 Mg Tablet, 10 MG PO BID for 30 Days, #60 TAB 10 mg twice daily for 5 days, then 5 mg twice daily Prov:RICKIE DALTON MD 06/12/18 Methadone Hcl* (Methadone*) 5 Mg/5 Ml Solution, 68 MG PO DAILY for 30 Days, ML Prov:STU ORTEZ 04/14/18 Salmeterol Xinaf/Fluticasone* (Advair*) 250-50 Diskus Inhaler, 1 INH INHALATION BID for 30 Days, #1 INHALER Prov:ZHANG WARE NP 02/28/16 Albuterol Sulfate* (Proair HFA*) 8.5 Gm Hfa.aer.ad, 2 PUFF INH Q6 for SHORTNESS OF BREATH for 14 Days, #1 INHALER Prov:ZHAGN WARE NP 02/28/16 Reported Medications Sertraline Hcl* (Sertraline Hcl*) 25 Mg Tablet, 25 MG PO DAILY, #30 TAB 09/15/18 Buspirone Hcl* (Buspirone Hcl*) 10 Mg Tab, 10 MG PO BID, TAB 09/15/18 Clonazepam* (Clonazepam*) 0.5 Mg Tablet, 0.5 MG PO DAILY PRN for ANXIETY, TAB 09/15/18 Ipratropium-Albuterol (Ipratropium-Albuterol) 0.5-3 Mg/3 Ml Ampul.neb, 3 ML INHALATION Q6 PRN for WHEEZING AND SOB, #30 VIAL 09/15/18 Carvedilol* (Carvedilol*) 6.25 Mg Tablet, 6.25 MG PO BID, #60 TAB 09/15/18 Cholecalciferol (Vitamin D3) (VITAMIN D-3) 2,000 Unit Capsule, 2000 U PO DAILY for 30 Days 04/30/18 Amlodipine Besylate* (Amlodipine Besylate*) 5 Mg Tablet, 5 MG PO DAILY for 30 Days, #30 04/30/18 Baclofen* (Baclofen*) 10 Mg Tablet, 10 MG PO BID 04/30/18 Calcium Carbonate ([id number]) 500 Mg Tablet, 500 MG PO BID, TAB 04/30/18 Discontinued Reported Medications Docusate Sodium* (Docusate Sodium*) 100 Mg Capsule, 100 MG PO BID, #60 CAP 04/30/18 Discontinued Scripts Oxymetazoline Hcl* (Afrin Roland*) 0.05% - 15 Ml Roland, 2 SPRAY NASAL BID for 7 Days, #1 SPRAY 2 Refills Prov:RICKIE DALTON MD 06/12/18 Lactulose* (Lactulose*) 20 Gm/30 Ml Solution, 30 GM PO Q8 for 14 Days, #14 1 Refill Pharmacy: Dispensed 2-week supply with 1 refill Prov:RICKIE DALTON MD 06/12/18 Acetaminophen* (Tylenol*) 325 Mg Tablet, 650 MG PO Q6H PRN for .PAIN 1-3 OR TEMP for 7 Days, TAB Prov:RICKIE DALTON MD 06/12/18 Rifaximin* (Xifaxan*) 550 Mg Tablet, 550 MG PO BID for 14 Days, #30 TAB Prov:RICKIE DALTON MD 06/12/18 Loperamide Hcl* (Imodium*) 2 Mg Capsule, 2 MG PO .AFTER EA LOOSE BM PRN for DIARRHEA, #10 TAB Prov:ADAMS MAK MD 04/30/18 Ondansetron (Ondansetron Odt) 4 Mg Tab.rapdis, 4 MG PO Q6H PRN for NAUSEA AND/OR VOMITING, #10 TAB Prov:ADAMS MAK MD 04/30/18 Hydroxyzine Hcl* (Hydroxyzine Hcl*) 10 Mg Tablet, 10 MG PO TID, #20 TAB Prov:CASA RIOJAS MD 01/10/18 Sertraline Hcl* (Sertraline Hcl*) 100 Mg Tablet, 100 MG PO DAILY for 30 Days, TAB Prov:ZHANG WARE NP 02/28/16 Medications Current Medications IV Flush (NS 3 ml) 3 ml PER PROTOCOL IV ; Start 09/15/18 at 07:30 Ondansetron HCl (Zofran Inj) 4 mg Q6H PRN IV NAUSEA/VOMITING Last administered on 09/19/18 07:53; Admin Dose 4 MG; Start 09/15/18 at 07:30 Acetaminophen (Tylenol Tab) 650 mg Q6H PRN PO .PAIN 1-3 OR TEMP Last administered on 09/16/18 21:56; Admin Dose 650 MG; Start 09/15/18 at 07:30 Baclofen (Lioresal) 10 mg BID PO Last administered on 09/20/18 21:02; Admin Dose 10 MG; Start 09/15/18 at 09:00 Buspirone HCl (Buspar) 10 mg BID PO Last administered on 09/20/18 20:59; Admin Dose 10 MG; Start 09/15/18 at 09:00 Calcium Carbonate (Oyster Shell Calcium) 1.25 gm BID PO Last administered on 09/20/18 20:59; Admin Dose 1.25 GM; Start 09/15/18 at 09:00 Clonazepam (Klonopin) 0.5 mg DAILY PRN PO ANXIETY Last administered on 09/21/18 01:00; Admin Dose 0.5 MG; Start 09/15/18 at 07:30 Docusate Sodium (Colace) 100 mg BID PO Last administered on 09/20/18 21:02; Admin Dose 100 MG; Start 09/15/18 at 09:00 Rifaximin (Xifaxan) 550 mg BID PO Last administered on 09/20/18 20:59; Admin Dose 550 MG; Start 09/15/18 at 09:00 Sertraline HCl (Zoloft) 100 mg DAILY PO ; Start 09/15/18 at 09:00; Status Hold Fluticasone/ Vilanterol (Breo Ellipta 200-25 Mcg Inh) 1 inh DAILY INH Last administered on 09/20/18 08:26; Admin Dose 1 INH; Start 09/15/18 at 09:00 Methylprednisolone Sodium Succinate (Solu-Medrol) 60 mg DAILY IV Last administered on 09/20/18 08:23; Admin Dose 60 MG; Start 09/15/18 at 09:00 Albuterol/ Ipratropium (Duoneb) 3 ml Q3H RESP THERAPY PRN HHN WHEEZING AND SOB; Start 09/15/18 at 08:00 Levalbuterol (Xopenex Neb) 0.63 mg Q4H RESP THERAPY HHN Last administered on 09/19/18 20:46; Admin Dose 0.63 MG; Start 09/15/18 at 17:00 Levalbuterol (Xopenex Neb) 0.63 mg Q2H RESP THERAPY PRN HHN WHEEZING AND SOB; Start 09/15/18 at 14:00 Collagenase (Santyl) 1 applic DAILY TOP Last administered on 09/20/18 08:27; Admin Dose 1 APPLIC; Start 09/16/18 at 15:00 Insulin Aspart (Novolog Insulin Pen) NOVOLOG *MILD* ALGORITHM WITH MEALS BEDTIME SC Last administered on 09/20/18 17:31; Admin Dose 1 UNIT; Start at 11:30 Acetaminophen/ Hydrocodone Bitart ([place] (5/325)) 1 tab Q6H PRN PO MODERATE PAIN LEVEL 4-6 Last administered on 09/18/18 21:13; Admin Dose 1 TAB; Start 09/17/18 at 11:30 Methadone HCl (Methadone Liq) 15 mg Q8 PRN PO SEVERE PAIN Last administered on 09/20/18 21:21; Admin Dose 15 MG; Start 09/17/18 at 18:30 Apixaban (Eliquis) 5 mg BID PO Last administered on 09/20/18 20:59; Admin Dose 5 MG; Start 09/19/18 at 21:00 Levofloxacin/ Dextrose 100 ml @ 100 mls/hr Q24H IVPB Last administered on 09/20/18 12:22; Admin Dose 100 MLS/HR; Start 09/19/18 at 12:00 Multivitamins Therapeutic (Theragran) 1 tab DAILY PO Last administered on 09/20/18 08:25; Admin Dose 1 TAB; Start 09/19/18 at 12:00 Ascorbic Acid (Vitamin C) 500 mg DAILY PO Last administered on 09/20/18 08:25; Admin Dose 500 MG; Start 09/19/18 at 12:00 Zinc Sulfate (Zinc Sulfate) 220 mg DAILY PO Last administered on 09/20/18 08:25; Admin Dose 220 MG; Start 09/19/18 at 12:00 Thiamine HCl (Vitamin B1) 50 mg DAILY PO Last administered on 09/20/18 08:25; Admin Dose 50 MG; Start 09/19/18 at 12:00 Simethicone (Mylicon) 80 mg Q6H PRN PO DISTENSION/GAS/BLOATING Last administered on 09/20/18 06:45; Admin Dose 80 MG; Start 09/20/18 at 06:30 Diltiazem HCl (Cardizem Cd) 120 mg DAILY PO Last administered on 09/20/18 08:49; Admin Dose 120 MG; Start 09/20/18 at 09:00 Famotidine (Pepcid) 20 mg DAILY PO ; Start 09/21/18 at 09:00 Zolpidem Tartrate (Ambien) 5 mg HS PRN PO INSOMNIA Last administered on 09/21/18 02:31; Admin Dose 5 MG; Start 09/21/18 at 02:00 Assessment/Plan Hospital Course (Demo Recall) 1. Acute renal insufficiency, possibly vasomotor nephropathy, rule out acute tubular necrosis, obstructive uropathy, or interstitial cystitis. - stabilized and improving at good interval. off ivf. - watch for diuretic phase of russ with electrolyte wasting. - All medications are dosed appropriately for renal function. 2. Acute respiratory failure, likely related to chronic obstructive pulmonary disease exacerbation. Steroid taper, bronchodilators, pulmonary followup. 3. Non-ST myocardial infarction, likely demand ischemia type 2. Cardiology is following. Medication optimized. 4. Sepsis, unknown source, possibly evolving pneumonia although impressed by t he chest x-ray. Continue to monitor. 5. Elevated transaminases with the history of hepatitis C. ultrasound nondiagnostic sec to bowel gas. 6. Hyponatremia, likely related to total body water deficit. corrected wth iv. monitor off. CHELSIE RAMÍREZ MD Sep 21, 2018 07:45
[2018-09-21] MEDS: COLLAGENASE 5 GM (UD JAR) TOP SCH (08:54)
[2018-09-21] MEDS: METHYLPREDNISOLONE 125 MG INJ IV SCH (08:55)
[2018-09-21] MEDS: FLUTICASONE/VILANTEROL 200-25 INH DEVICE INH SCH (08:55)
[2018-09-21] MEDS: INSULIN ASPART [NOVOLOG] 3 ML PEN SC SCH ×4 (08:56→20:18)
[2018-09-21] MEDS: MULTIVITAMINS THERAPEUTIC TAB PO SCH (08:56)
[2018-09-21] MEDS: BUSPIRONE 10 MG TAB PO SCH ×2 (08:56→20:17)
[2018-09-21] MEDS: RIFAXIMIN 550 MG TAB PO SCH ×2 (08:56→20:17)
[2018-09-21] MEDS: ZINC SULFATE 220 MG CAP PO SCH (08:56)
[2018-09-21] MEDS: BACLOFEN 10 MG TAB PO SCH ×2 (08:56→20:17)
[2018-09-21] MEDS: DILTIAZEM (CD) 120 MG CAP PO SCH (08:56)
[2018-09-21] MEDS: DOCUSATE SODIUM 100 MG CAP PO SCH ×2 (08:56→21:00)
[2018-09-21] MEDS: THIAMINE 100 MG TAB PO SCH (08:57)
[2018-09-21] MEDS: FAMOTIDINE 20 MG TAB PO SCH (08:57)
[2018-09-21] MEDS: ASCORBIC ACID 500 MG TAB PO SCH (08:57)
[2018-09-21] MEDS: APIXABAN 5 MG TABLET PO SCH ×2 (08:57→20:17)
[2018-09-21] MEDS: CALCIUM CARBONATE 1.25 GM TAB PO SCH ×2 (08:57→20:17)
[2018-09-21] MEDS: BALSAM PERU/CASTOR OIL 60 GM TUBE TOP SCH ×2 (09:01→20:18)
--- NOTE | 2018-09-21 10:32 | CONS ---
Consult Date/Type/Reason Admit Date/Time Sep 15, 2018 at 03:32 Initial Consult Date 09/15/18 Type of Consult Pulmonary Date/Time of Note DATE: 09/21/18 TIME: 10:31 Subjective Patient comfortable this morning No new events. No respiratory distress. Objective Vital Signs Date Temp Pulse Resp B/P (MAP) Pulse Ox O2 O2 Flow FiO2 Time Delivery Rate 09/21/18 2.0 08:21 09/21/18 98.0 114 18 116/65 99 07:31 (82) 09/21/18 Nasal 07:30 Cannula 09/19/18 21 20:46 Intake and Output 09/20/18 09/20/18 09/21/18 1515:00 23:00 07:00 IntakeIntake Total 500 ml 430 ml 500 ml BalanceBalance 500 ml 430 ml 500 ml Exam PHYSICAL EXAMINATION: GENERAL: Thin, elderly-appearing lady, appears comfortable at rest, no acute distress. VITAL SIGNS: NECK: Supple. JVD is not elevated. CARDIAC: S1, S2, no added sounds or murmurs. CHEST: Diminished air entry bilaterally. ABDOMEN: Soft, nontender. No guarding or rebound. EXTREMITIES: No cyanosis, clubbing, 1+ edema. NEUROLOGIC: Grossly intact Vent Setting Fraction of Inspired Oxygen pe: 21 Results/Medications Result Diagram: 09/21/18 0637 09/21/18 0637 Results 24 hrs Laboratory Tests Test 09/20/18 11:26 09/20/18 12:18 09/20/18 17:30 09/20/18 21:30 Lab Scanned Report REFERENCE LAB Bedside Glucose 145 162 165 Test 09/21/18 06:37 09/21/18 08:54 White Blood Count 22.2 H Red Blood Count 2.65 L Hemoglobin 8.0 L Hematocrit 26.0 L Mean Corpuscular 98.1 Volume Mean Corpuscular 30.2 Hemoglobin Mean Corpuscular 30.8 L Hemoglobin Concent Red Cell 14.9 H Distribution Width Platelet Count 234 # Mean Platelet 12.0 H Volume Immature 1.200 H Granulocytes % Neutrophils % 80.8 H Lymphocytes % 10.4 L Monocytes % 6.8 Eosinophils % 0.2 Basophils % 0.6 Nucleated Red 0.4 H Blood Cells % Immature 0.260 H Granulocytes # Neutrophils # 17.9 H Lymphocytes # 2.3 Monocytes # 1.5 H Eosinophils # 0.1 Basophils # 0.1 Nucleated Red 0.1 H Blood Cells # Sodium Level 135 Potassium Level 4.3 Chloride Level 105 Carbon Dioxide 27 Level Anion Gap 3 L Blood Urea 36 H Nitrogen Creatinine 0.86 Est Glomerular > 60 Filtrat Rate mL/min Glucose Level 112 Calcium Level 8.3 L Bedside Glucose 142 Medications Current Medications IV Flush (NS 3 ml) 3 ml PER PROTOCOL IV ; Start 09/15/18 at 07:30 Ondansetron HCl (Zofran Inj) 4 mg Q6H PRN IV NAUSEA/VOMITING Last administered on 09/19/18 07:53; Admin Dose 4 MG; Start 09/15/18 at 07:30 Acetaminophen (Tylenol Tab) 650 mg Q6H PRN PO .PAIN 1-3 OR TEMP Last administered on 09/16/18 21:56; Admin Dose 650 MG; Start 09/15/18 at 07:30 Baclofen (Lioresal) 10 mg BID PO Last administered on 09/21/18 08:56; Admin Do se 10 MG; Start 09/15/18 at 09:00 Buspirone HCl (Buspar) 10 mg BID PO Last administered on 09/21/18 08:56; Admin Dose 10 MG; Start 09/15/18 at 09:00 Calcium Carbonate (Oyster Shell Calcium) 1.25 gm BID PO Last administered on 09/21/18 08:57; Admin Dose 1.25 GM; Start 09/15/18 at 09:00 Clonazepam (Klonopin) 0.5 mg DAILY PRN PO ANXIETY Last administered on 09/21/18 01:00; Admin Dose 0.5 MG; Start 09/15/18 at 07:30 Docusate Sodium (Colace) 100 mg BID PO Last administered on 09/21/18 08:56; Admin Dose 100 MG; Start 09/15/18 at 09:00 Rifaximin (Xifaxan) 550 mg BID PO Last administered on 09/21/18 08:56; Admin Dose 550 MG; Start 09/15/18 at 09:00 Sertraline HCl (Zoloft) 100 mg DAILY PO ; Start 09/15/18 at 09:00; Status Hold Fluticasone/ Vilanterol (Breo Ellipta 200-25 Mcg Inh) 1 inh DAILY INH Last administered on 09/21/18 08:55; Admin Dose 1 INH; Start 09/15/18 at 09:00 Methylprednisolone Sodium Succinate (Solu-Medrol) 60 mg DAILY IV Last administered on 09/21/18 08:55; Admin Dose 60 MG; Start 09/15/18 at 09:00 Albuterol/ Ipratropium (Duoneb) 3 ml Q3H RESP THERAPY PRN HHN WHEEZING AND SOB; Start 09/15/18 at 08:00 Levalbuterol (Xopenex Neb) 0.63 mg Q4H RESP THERAPY HHN Last administered on 09/19/18 20:46; Admin Dose 0.63 MG; Start 09/15/18 at 17:00 Levalbuterol (Xopenex Neb) 0.63 mg Q2H RESP THERAPY PRN HHN WHEEZING AND SOB; Start 09/15/18 at 14:00 Collagenase (Santyl) 1 applic DAILY TOP Last administered on 09/21/18 08:54; Admin Dose 1 APPLIC; Start 09/16/18 at 15:00 Insulin Aspart (Novolog Insulin Pen) NOVOLOG *MILD* ALGORITHM WITH MEALS BEDTIME SC Last administered on 09/21/18 08:56; Admin Dose 1 UNIT; Start 09/17/18 at 11:30 Acetaminophen/ Hydrocodone Bitart ([place] (5/325)) 1 tab Q6H PRN PO MODERATE PAIN LEVEL 4-6 Last administered on 09/18/18 21:13; Admin Dose 1 TAB; Start 09/17/18 at 11:30 Methadone HCl (Methadone Liq) 15 mg Q8 PRN PO SEVERE PAIN Last administered on 09/20/18 21:21; Admin Dose 15 MG; Start 09/17/18 at 18:30 Apixaban (Eliquis) 5 mg BID PO Last administered on 09/21/18 08:57; Admin Dose 5 MG; Start 09/19/18 at 21:00 Levofloxacin/ Dextrose 100 ml @ 100 mls/hr Q24H IVPB Last administered on 09/20/18 12:22; Admin Dose 100 MLS/HR; Start 09/19/18 at 12:00 Multivitamins Therapeutic (Theragran) 1 tab DAILY PO Last administered on 09/21/18 08:56; Admin Dose 1 TAB; Start 09/19/18 at 12:00 Ascorbic Acid (Vitamin C) 500 mg DAILY PO Last administered on 09/21/18 08:57; Admin Dose 500 MG; Start 09/19/18 at 12:00 Zinc Sulfate (Zinc Sulfate) 220 mg DAILY PO Last administered on 09/21/18 08:56; Admin Dose 220 MG; Start 09/19/18 at 12:00 Thiamine HCl (Vitamin B1) 50 mg DAILY PO Last administered on 09/21/18 08:57; Admin Dose 50 MG; Start 09/19/18 at 12:00 Simethicone (Mylicon) 80 mg Q6H PRN PO DISTENSION/GAS/BLOATING Last administered on 09/20/18 06:45; Admin Dose 80 MG; Start 09/20/18 at 06:30 Diltiazem HCl (Cardizem Cd) 120 mg DAILY PO Last administered on 09/21/18 08:56; Admin Dose 120 MG; Start 09/20/18 at 09:00 Famotidine (Pepcid) 20 mg DAILY PO Last administered on 09/21/18 08:57; Admin Dose 20 MG; Start 09/21/18 at 09:00 Zolpidem Tartrate (Ambien) 5 mg HS PRN PO INSOMNIA Last administered on 09/21/18 02:31; Admin Dose 5 MG; Start 09/21/18 at 02:00 Assessment/Plan Hospital Course (Demo Recall) IMPRESSION 1. Likely demand ischemia type 2, non-ST elevation myocardial infarction. No significant right heart failure on echocardiogram 2. Chronic obstructive pulmonary disease with acute exacerbation. 3. Underlying psychiatric disorder. Resumed methadone for chronic pain 4. Dehydration and renal insufficiency. 5. History of venous thromboembolism Plan: 1. Advance diet as tolerated. Aspiration precautions 2. Bronchodilators. 3. Supplemental O2. 4. Steroid taper. 5. Continue Eliquis anticoagulation 6. DVT and GI prophylaxis. 7. PT eval encourage out of bed Patient will need jail facility placement SNF placement EMMA STEINBERG MD, [facility] Sep 21, 2018 10:32
--- NOTE | 2018-09-21 10:40 | PN ---
Date/Time of Note Date/Time of Note DATE: 09/21/18 TIME: 10:38 Assessment/Plan VTE Prophylaxis Risk score [place]from [facility] [place] risk: 8 SCD applied (from Ns): Yes Pharmacological prophylaxis: apixaban Lines/Catheters IV Catheter Type (from [facility]): Mid Line Urinary Cath still in place: No Assessment/Plan Assessment/Plan 68-year-old female history COPD, PE May 2018, CKD, who presents with: 1. Hypoxic and hypercapnic respiratory failure: Slowly improving, most likely secondary to COPD exacerbation, with likely superimposed pneumonia given the chest x-ray findings. - For now continue supplemental oxygen, bronchodilators, broad-spectrum antibiotics - DuoNebs, follow further recommendations from pulmonary consult - Have change methadone to a lower dose and also to as needed status given the respiratory failure patient presented with, continue cautiously - For now cautiously continue pured diet, will obtain PT eval - Continue Eliquis for PE in May 2018. 2. NSTEMI-First troponin 0.57. It was 0.407 in May of this year when she was diagnosed with PE, at that time she was diagnosed with a type II event. - Monitor serial troponin - Follow-up recommendations from cardiology consult - Continue Eliquis 3. Sepsis: Unknown source-although pneumonia is high on the differential. Again nares are positive for MRSA. Also waiting for UA results. Lactic acid was high on admission, trending down now. -Continue broad-spectrum IV antibiotics, monitor WBC (more elevated today, but no fevers, likely secondary to IV steroids patient is been getting) -Follow-up final culture results -continue IV fluids, Tylenol PRN pain and fevers 4. Acute renal insufficiency: Likely prerenal. Creatinine much improved in the last 24 hours, patient has adequate urine output. Renal team on the case. -For now continue half-normal saline IV fluids -follow-up further renal recommendations 5. Elevated transaminases: -Found on admission. Trending down now, likely secondary to the septic shock patient came in with. Patient with a known history of hep C liver disease 6. Hypernatremia: Resolved now, suspect from dehydration -We will stop D5W IV fluids, and switch to half-normal saline, monitor basic metabolic panel the a.m. 7. Anemia - Downtrending Hgb. - Will check stool occult blood. No bowel movement since admission. Result Diagram: 09/21/18 0637 09/21/18 0637 Subjective 24 Hr Interval Summary Free Text/Dictation No acute overnight events. Patient tolerating diet. Exam/Review of Systems Exam Vitals Vital Signs Date Temp Pulse Resp B/P (MAP) Pulse Ox O2 O2 Flow FiO2 Time Delivery Rate 09/21/18 2.0 08:21 09/21/18 98.0 114 18 116/65 99 07:31 (82) 09/21/18 Nasal 07:30 Cannula 09/19/18 21 20:46 Intake and Output 09/20/18 09/20/18 09/21/18 1515:00 23:00 07:00 IntakeIntake Total 500 ml 430 ml 500 ml BalanceBalance 500 ml 430 ml 500 ml Exam Gen: Thin frail appearing woman lying in bed, awake and alert. Head: Atraumatic Eyes: Normal Conjunctiva ENT: Normal External Ears, Nose and Mouth. Neck: Full range of motion. No meningismus. Resp: Clear to auscultation bilaterally Cardio: Hyperdynamic precordium. Regular rate and rhythm, no murmurs Abd: Soft, non tender, non distended. Normal bowel sounds Ext: No bilateral lower extremity edema Results Results 24hrs Laboratory Tests Test 09/20/18 11:26 09/20/18 12:18 09/20/18 17:30 09/20/18 21:30 Lab Scanned Report REFERENCE LAB Bedside Glucose 145 162 165 Test 09/21/18 06:37 09/21/18 08:54 White Blood Count 22.2 H Red Blood Count 2.65 L Hemoglobin 8.0 L Hematocrit 26.0 L Mean Corpuscular 98.1 Volume Mean Corpuscular 30.2 Hemoglobin Mean Corpuscular 30.8 L Hemoglobin Concent Red Cell 14.9 H Distribution Width Platelet Count 234 # Mean Platelet 12.0 H Volume Immature 1.200 H Granulocytes % Neutrophils % 80.8 H Lymphocytes % 10.4 L Monocytes % 6.8 Eosinophils % 0.2 Basophils % 0.6 Nucleated Red 0.4 H Blood Cells % Immature 0.260 H Granulocytes # Neutrophils # 17.9 H Lymphocytes # 2.3 Monocytes # 1.5 H Eosinophils # 0.1 Basophils # 0.1 Nucleated Red 0.1 H Blood Cells # Sodium Level 135 Potassium Level 4.3 Chloride Level 105 Carbon Dioxide 27 Level Anion Gap 3 L Blood Urea 36 H Nitrogen Creatinine 0.86 Est Glomerular > 60 Filtrat Rate mL/min Glucose Level 112 Calcium Level 8.3 L Bedside Glucose 142 Medications Medication Current Medications IV Flush (NS 3 ml) 3 ml PER PROTOCOL IV ; Start 09/15/18 at 07:30 Ondansetron HCl (Zofran Inj) 4 mg Q6H PRN IV NAUSEA/VOMITING Last administered on 09/19/18 07:53; Admin Dose 4 MG; Start 09/15/18 at 07:30 Acetaminophen (Tylenol Tab) 650 mg Q6H PRN PO .PAIN 1-3 OR TEMP Last administered on 09/16/18 21:56; Admin Dose 650 MG; Start 09/15/18 at 07:30 Baclofen (Lioresal) 10 mg BID PO Last administered on 09/21/18 08:56; Admin Dose 10 MG; Start 09/15/18 at 09:00 Buspirone HCl (Buspar) 10 mg BID PO Last administered on 09/21/18 08:56; Admin Dose 10 MG; Start 09/15/18 at 09:00 Calcium Carbonate (Oyster Shell Calcium) 1.25 gm BID PO Last administered on 09/21/18 08:57; Admin Dose 1.25 GM; Start 09/15/18 at 09:00 Clonazepam (Klonopin) 0.5 mg DAILY PRN PO ANXIETY Last administered on 09/21/18 01:00; Admin Dose 0.5 MG; Start 09/15/18 at 07:30 Docusate Sodium (Colace) 100 mg BID PO Last administered on 09/21/18 08:56; Admin Dose 100 MG; Start 09/15/18 at 09:00 Rifaximin (Xifaxan) 550 mg BID PO Last administered on 09/21/18 08:56; Admin Dose 550 MG; Start 09/15/18 at 09:00 Sertraline HCl (Zoloft) 100 mg DAILY PO ; Start 09/15/18 at 09:00; Status Hold Fluticasone/ Vilanterol (Breo Ellipta 200-25 Mcg Inh) 1 inh DAILY INH Last administered on 09/21/18 08:55; Admin Dose 1 INH; Start 09/15/18 at 09:00 Methylprednisolone Sodium Succinate (Solu-Medrol) 60 mg DAILY IV Last administered on 09/21/18 08:55; Admin Dose 60 MG; Start 09/15/18 at 09:00 Albuterol/ Ipratropium (Duoneb) 3 ml Q3H RESP THERAPY PRN HHN WHEEZING AND SOB; Start 09/15/18 at 08:00 Levalbuterol (Xopenex Neb) 0.63 mg Q4H RESP THERAPY HHN Last administered on 09/19/18 20:46; Admin Dose 0.63 MG; Start 09/15/18 at 17:00 Levalbuterol (Xopenex Neb) 0.63 mg Q2H RESP THERAPY PRN HHN WHEEZING AND SOB; Start 09/15/18 at 14:00 Collagenase (Santyl) 1 applic DAILY TOP Last administered on 09/21/18 08:54; Admin Dose 1 APPLIC; Start 09/16/18 at 15:00 Insulin Aspart (Novolog Insulin Pen) NOVOLOG *MILD* ALGORITHM WITH MEALS BEDTIME SC Last administered on 09/21/18 08:56; Admin Dose 1 UNIT; Start 09/17/18 at 11:30 Acetaminophen/ Hydrocodone Bitart ([place] (5/325)) 1 tab Q6H PRN PO MODERATE PAIN LEVEL 4-6 Last administered on 09/18/18 21:13; Admin Dose 1 TAB; Start 09/17/18 at 11:30 Methadone HCl (Methadone Liq) 15 mg Q8 PRN PO SEVERE PAIN Last administered on 09/20/18 21:21; Admin Dose 15 MG; Start 09/17/18 at 18:30 Apixaban (Eliquis) 5 mg BID PO Last administered on 09/21/18 08:57; Admin Dose 5 MG; Start 09/19/18 at 21:00 Levofloxacin/ Dextrose 100 ml @ 100 mls/hr Q24H IVPB Last administered on 09/20/18 12:22; Admin Dose 100 MLS/HR; Start 09/19/18 at 12:00 Multivitamins Therapeutic (Theragran) 1 tab DAILY PO Last administered on 09/21/18 08:56; Admin Dose 1 TAB; Start 09/19/18 at 12:00 Ascorbic Acid (Vitamin C) 500 mg DAILY PO Last administered on 09/21/18 08:57; Admin Dose 500 MG; Start 09/19/18 at 12:00 Zinc Sulfate (Zinc Sulfate) 220 mg DAILY PO Last administered on 09/21/18 08:56; Admin Dose 220 MG; Start 09/19/18 at 12:00 Thiamine HCl (Vitamin B1) 50 mg DAILY PO Last administered on 09/21/18 08:57; Admin Dose 50 MG; Start 09/19/18 at 12:00 Simethicone (Mylicon) 80 mg Q6H PRN PO DISTENSION/GAS/BLOATING Last administered on 09/20/18 06:45; Admin Dose 80 MG; Start 09/20/18 at 06:30 Diltiazem HCl (Cardizem Cd) 120 mg DAILY PO Last administered on 09/21/18 08:56; Admin Dose 120 MG; Start 09/20/18 at 09:00 Famotidine (Pepcid) 20 mg DAILY PO Last administered on 09/21/18 08:57; Admin Dose 20 MG; Start 09/21/18 at 09:00 Zolpidem Tartrate (Ambien) 5 mg HS PRN PO INSOMNIA Last administered on 09/21/18 02:31; Admin Dose 5 MG; Start 09/21/18 at 02:00 PRASHANT HILTON MD Sep 21, 2018 10:40
[2018-09-21] MEDS: LEVOFLOXACIN 500MG/D5W (PMX) 100 ML IVPB SCH (12:38)
[2018-09-21] MEDS: METHADONE (1 MG/ML 5 ML PO UD SYG) PO PRN (14:44)
[2018-09-21] MEDS: HYDROCODONE/APAP (5/325) TAB PO PRN (20:22)
[2018-09-22] MEDS ORDERED: CEPASTAT LOZENGE MT PRN (01:00)
[2018-09-22] MEDS: LEVALBUTEROL (NEB) 0.63 MG/3 ML AMP HHN SCH ×6 (01:00→20:10)
[2018-09-22] MEDS: ZOLPIDEM 5 MG TAB PO PRN (01:31)
[2018-09-22] MEDS: METHADONE (1 MG/ML 5 ML PO UD SYG) PO PRN ×3 (01:32→20:10)
[2018-09-22] MEDS: clonAZEPAM 0.5 MG TAB PO PRN (03:32)
[2018-09-22 03:53] VITALS: BP 106/53; PULSE 104; RESP 19
[2018-09-22 07:49] VITALS: BP 134/54; PULSE 105; RESP 16
[2018-09-22] MEDS: INSULIN ASPART [NOVOLOG] 3 ML PEN SC SCH ×4 (07:55→21:00)
--- NOTE | 2018-09-22 08:31 | CONS ---
Consult Date/Type/Reason Admit Date/Time Sep 15, 2018 at 03:32 Initial Consult Date 09/15/18 Date/Time of Note DATE: 09/22/18 TIME: 08:27 Subjective 68-year-old female with the past medical history of COPD, history of previous PE, psychiatric disorder, chronic kidney disease, hepatitis C, liver disease who was brought in the ER after noticing dyspnea progressively worse and requires to be on BiPAP. On admission, the patient has been weaned down. On the course of the workup, was noted to have renal failure. She continues to have good urine output since she has been here. clinically improved. AAOx3 with some confusion, c/o pain constantly per nursing. off ivf. labs pending this am. PHYSICAL EXAMINATION: HEENT: Normocephalic, atraumatic. Pupils are equal, round, reactive to light. Oropharynx has moist mucous membranes. NECK: Supple. HEART: Regular rate and rhythm. LUNGS: Clear to auscultation. ABDOMEN: Soft, nontender, nondistended. Normal bowel sounds. EXTREMITIES: No clubbing, cyanosis or edema. Objective Vitals Vital Signs Date Temp Pulse Resp B/P (MAP) Pulse Ox O2 O2 Flow FiO2 Time Delivery Rate 09/22/18 99 2.0 08:06 09/22/18 99 19 Nasal 08:06 Cannula 09/22/18 98.7 134/54 07:49 (80) 09/19/18 21 20:46 Intake and Output 09/21/18 09/21/18 09/22/18 1414:59 22:59 06:59 IntakeIntake Total 600 ml 1000 ml 200 ml BalanceBalance 600 ml 1000 ml 200 ml Results/Medications Result Diagram: 09/21/1837 09/21/18 0637 Results 24 hrs Laboratory Tests Test 09/21/18 08:54 09/21/18 10:59 09/21/18 11:14 09/21/18 12:37 Bedside Glucose 142 161 Lab Scanned REFERENCE LAB REFERENCE LAB Report Test 09/21/18 14:40 09/21/18 16:57 09/21/18 20:16 09/22/18 07:54 Procalcitonin 0.16 H Bedside Glucose 133 139 130 Home Meds Active Scripts Pantoprazole* (Pantoprazole*) 40 Mg Tablet., 40 MG PO DAILY@06 for 14 Days, #14 Prov:RICKIE DALTON MD 06/12/18 Apixaban* (Eliquis*) 5 Mg Tablet, 10 MG PO BID for 30 Days, #60 TAB 10 mg twice daily for 5 days, then 5 mg twice daily Prov:RICKIE DALTON MD 06/12/18 Methadone Hcl* (Methadone*) 5 Mg/5 Ml Solution, 68 MG PO DAILY for 30 Days, ML Prov:STU ORTEZ 04/14/18 Salmeterol Xinaf/Fluticasone* (Advair*) 250-50 Diskus Inhaler, 1 INH INHALATION BID for 30 Days, #1 INHALER Prov:ZHANG WARE NP 02/28/16 Albuterol Sulfate* (Proair HFA*) 8.5 Gm Hfa.aer.ad, 2 PUFF INH Q6 for SHORTNESS OF BREATH for 14 Days, #1 INHALER Prov:ZHANG WARE NP 02/28/16 Reported Medications Sertraline Hcl* (Sertraline Hcl*) 25 Mg Tablet, 25 MG PO DAILY, #30 TAB 09/15/18 Buspirone Hcl* (Buspirone Hcl*) 10 Mg Tab, 10 MG PO BID, TAB 09/15/18 Clonazepam* (Clonazepam*) 0.5 Mg Tablet, 0.5 MG PO DAILY PRN for ANXIETY, TAB 09/15/18 Ipratropium-Albuterol (Ipratropium-Albuterol) 0.5-3 Mg/3 Ml Ampul.neb, 3 ML INHALATION Q6 PRN for WHEEZING AND SOB, #30 VIAL 09/15/18 Carvedilol* (Carvedilol*) 6.25 Mg Tablet, 6.25 MG PO BID, #60 TAB 09/15/18 Cholecalciferol (Vitamin D3) (VITAMIN D-3) 2,000 Unit Capsule, 2000 U PO DAILY for 30 Days 04/30/18 Amlodipine Besylate* (Amlodipine Besylate*) 5 Mg Tablet, 5 MG PO DAILY for 30 Days, #30 04/30/18 Baclofen* (Baclofen*) 10 Mg Tablet, 10 MG PO BID 04/30/18 Calcium Carbonate (Fnif-Qoh-418) 500 Mg Tablet, 500 MG PO BID, TAB 04/30/18 Discontinued Reported Medications Docusate Sodium* (Docusate Sodium*) 100 Mg Capsule, 100 MG PO BID, #60 CAP 04/30/18 Discontinued Scripts Oxymetazoline Hcl* (Afrin [place]*) 0.05% - 15 Ml [place], 2 SPRAY NASAL BID for 7 Days, #1 SPRAY 2 Refills Prov:RICKIE DALTON MD 06/12/18 Lactulose* (Lactulose*) 20 Gm/30 Ml Solution, 30 GM PO Q8 for 14 Days, #14 1 Refill Pharmacy: Dispensed 2-week supply with 1 refill Prov:RICKIE DALTON MD 06/12/18 Acetaminophen* (Tylenol*) 325 Mg Tablet, 650 MG PO Q6H PRN for .PAIN 1-3 OR TEMP for 7 Days, TAB Prov:RICKIE DALTON MD 06/12/18 Rifaximin* (Xifaxan*) 550 Mg Tablet, 550 MG PO BID for 14 Days, #30 TAB Prov:RICKIE DALTON MD 06/12/18 Loperamide Hcl* (Imodium*) 2 Mg Capsule, 2 MG PO .AFTER EA LOOSE BM PRN for DIARRHEA, #10 TAB Prov:ADAMS MAK MD 04/30/18 Ondansetron (Ondansetron Odt) 4 Mg Tab.rapdis, 4 MG PO Q6H PRN for NAUSEA AND/OR VOMITING, #10 TAB Prov:ADAMS MAK MD 04/30/18 Hydroxyzine Hcl* (Hydroxyzine Hcl*) 10 Mg Tablet, 10 MG PO TID, #20 TAB Prov:CASA RIOJAS MD 01/10/18 Sertraline Hcl* (Sertraline Hcl*) 100 Mg Tablet, 100 MG PO DAILY for 30 Days, TAB Prov:ZHANG WARE NP 02/28/16 Medications Current Medications IV Flush (NS 3 ml) 3 ml PER PROTOCOL IV ; Start 09/15/18 at 07:30 Ondansetron HCl (Zofran Inj) 4 mg Q6H PRN IV NAUSEA/VOMITING Last administered on 09/19/18at 07:53; Admin Dose 4 MG; Start 09/15/18 at 07:30 Acetaminophen (Tylenol Tab) 650 mg Q6H PRN PO .PAIN 1-3 OR TEMP Last administered on 09/16/18 21:56; Admin Dose 650 MG; Start 09/15/18 at 07:30 Baclofen (Lioresal) 10 mg BID PO Last administered on 09/21/18 20:17; Admin Dose 10 MG; Start 09/15/18 at 09:00 Buspirone HCl (Buspar) 10 mg BID PO Last administered on 09/21/18 20:17; Admin Dose 10 MG; Start 09/15/18 at 09:00 Calcium Carbonate (Oyster Shell Calcium) 1.25 gm BID PO Last administered on 09/21/18 20:17; Admin Dose 1.25 GM; Start 09/15/18 at 09:00 Clonazepam (Klonopin) 0.5 mg DAILY PRN PO ANXIETY Last administered on 09/22/18 03:32; Admin Dose 0.5 MG; Start 09/15/18 at 07:30 Docusate Sodium (Colace) 100 mg BID PO Last administered on 09/21/18 08:56; Admin Dose 100 MG; Start 09/15/18 at 09:00 Rifaximin (Xifaxan) 550 mg BID PO Last administered on 09/21/18 20:17; Admin Dose 550 MG; Start 09/15/18 at 09:00 Sertraline HCl (Zoloft) 100 mg DAILY PO ; Start 09/15/18 at 09:00; Status Hold Fluticasone/ Vilanterol (Breo Ellipta 200-25 Mcg Inh) 1 inh DAILY INH Last administered on 09/21/18 08:55; Admin Dose 1 INH; Start 09/15/18 at 09:00 Methylprednisolone Sodium Succinate (Solu-Medrol) 60 mg DAILY IV Last administered on 09/21/18 08:55; Admin Dose 60 MG; Start 09/15/18 at 09:00 Albuterol/ Ipratropium (Duoneb) 3 ml Q3H RESP THERAPY PRN HHN WHEEZING AND SOB Last administered on 09/21/18 21:08; Admin Dose 3 ML; Start 09/15/18 at 08:00 Levalbuterol (Xopenex Neb) 0.63 mg Q4H RESP THERAPY HHN Last administered on 09/22/18 08:06; Admin Dose 0.63 MG; Start 09/15/18 at 17:00 Levalbuterol (Xopenex Neb) 0.63 mg Q2H RESP THERAPY PRN HHN WHEEZING AND SOB; Start 09/15/18 at 14:00 Collagenase (Santyl) 1 applic DAILY TOP Last administered on 09/21/18 08:54; Admin Dose 1 APPLIC; Start 09/16/18 at 15:00 Insulin Aspart (Novolog Insulin Pen) NOVOLOG *MILD* ALGORITHM WITH MEALS BEDTIME SC Last administered on 09/21/18 12:39; Admin Dose 1 UNIT; Start 09/17/18 at 11:30 Acetaminophen/ Hydrocodone Bitart ([place] (5/325)) 1 tab Q6H PRN PO MODERATE PAIN LEVEL 4-6 Last administered on 09/21/18 20:22; Admin Dose 1 TAB; Start 09/17/18 at 11:30 Methadone HCl (Methadone Liq) 15 mg Q8 PRN PO SEVERE PAIN Last administered on 09/22/18 01:32; Admin Dose 15 MG; Start 09/17/18 at 18:30 Apixaban (Eliquis) 5 mg BID PO Last administered on 09/21/18 20:17; Admin Dose 5 MG; Start 09/19/18 at 21:00 Levofloxacin/ Dextrose 100 ml @ 100 mls/hr Q24H IVPB Last administered on 09/21/18 12:38; Admin Dose 100 MLS/HR; Start 09/19/18 at 12:00 Multivitamins Therapeutic (Theragran) 1 tab DAILY PO Last administered on 09/21/18 08:56; Admin Dose 1 TAB; Start 09/19/18 at 12:00 Ascorbic Acid (Vitamin C) 500 mg DAILY PO Last administered on 09/21/18 08:57; Admin Dose 500 MG; Start 09/19/18 at 12:00 Zinc Sulfate (Zinc Sulfate) 220 mg DAILY PO Last administered on 09/21/18 08:56; Admin Dose 220 MG; Start 09/19/18 at 12:00 Thiamine HCl (Vitamin B1) 50 mg DAILY PO Last administered on 09/21/18 08:57; Admin Dose 50 MG; Start 09/19/18 at 12:00 Simethicone (Mylicon) 80 mg Q6H PRN PO DISTENSION/GAS/BLOATING Last administered on 09/20/18 06:45; Admin Dose 80 MG; Start 09/20/18 at 06:30 Diltiazem HCl (Cardizem Cd) 120 mg DAILY PO Last administered on 09/21/18 08:56; Admin Dose 120 MG; Start 09/20/18 at 09:00 Famotidine (Pepcid) 20 mg DAILY PO Last administered on 09/21/18 08:57; Admin Dose 20 MG; Start 09/21/18 at 09:00 Zolpidem Tartrate (Ambien) 5 mg HS PRN PO INSOMNIA Last administered on 09/22/18 01:31; Admin Dose 5 MG; Start 09/21/18 at 02:00 Phenol (Cepastat Lozenge) 1 lozenge Q1H PRN MT SORE THROAT Last administered on 09/22/18 03:32; Admin Dose 1 LOZENGE; Start 09/22/18 at 01:00 Assessment/Plan Hospital Course (Demo Recall) 1. Acute renal insufficiency, possibly vasomotor nephropathy, rule out acute tubular necrosis - stabilized and improving at good interval. off ivf. - All medications are dosed appropriately for renal function. 2. Acute respiratory failure, likely related to chronic obstructive pulmonary disease exacerbation. Steroid taper, bronchodilators, pulmonary followup. 3. Non-ST myocardial infarction, likely demand ischemia type 2. Cardiology is following. Medication optimized. 4. Sepsis, unknown source, possibly evolving pneumonia although impressed by the chest x-ray. Continue to monitor. 5. Elevated transaminases with the history of hepatitis C. ultrasound nondiagnostic sec to bowel gas. 6. Hyponatremia, likely related to total body water deficit. corrected wth iv. monitor off. 7. anemia- downtrending. CHELSIE RAMÍREZ MD Sep 22, 2018 08:31
[2018-09-22] MEDS: METHYLPREDNISOLONE 125 MG INJ IV SCH (08:49)
[2018-09-22] MEDS: RIFAXIMIN 550 MG TAB PO SCH ×2 (08:50→21:42)
[2018-09-22] MEDS: DOCUSATE SODIUM 100 MG CAP PO SCH ×2 (08:50→21:41)
[2018-09-22] MEDS: BUSPIRONE 10 MG TAB PO SCH ×2 (08:50→21:41)
[2018-09-22] MEDS: COLLAGENASE 5 GM (UD JAR) TOP SCH (08:50)
[2018-09-22] MEDS: CALCIUM CARBONATE 1.25 GM TAB PO SCH ×2 (08:50→21:42)
[2018-09-22] MEDS: ZINC SULFATE 220 MG CAP PO SCH (08:50)
[2018-09-22] MEDS: FAMOTIDINE 20 MG TAB PO SCH (08:51)
[2018-09-22] MEDS: ASCORBIC ACID 500 MG TAB PO SCH (08:51)
[2018-09-22] MEDS: APIXABAN 5 MG TABLET PO SCH ×2 (08:51→21:41)
[2018-09-22] MEDS: THIAMINE 100 MG TAB PO SCH (08:51)
[2018-09-22] MEDS: BACLOFEN 10 MG TAB PO SCH ×2 (08:51→21:42)
[2018-09-22] MEDS: DILTIAZEM (CD) 120 MG CAP PO SCH (08:54)
[2018-09-22] MEDS: FLUTICASONE/VILANTEROL 200-25 INH DEVICE INH SCH (08:55)
[2018-09-22] MEDS: MULTIVITAMINS THERAPEUTIC TAB PO SCH (09:33)
[2018-09-22] MEDS: BALSAM PERU/CASTOR OIL 60 GM TUBE TOP SCH ×2 (09:34→21:48)
--- NOTE | 2018-09-22 09:46 | CONS ---
Consult Date/Type/Reason Admit Date/Time Sep 15, 2018 at 03:32 Initial Consult Date 09/15/18 Type of Consult Pulmonary Date/Time of Note DATE: 09/22/18 TIME: 09:46 Subjective Patient comfortable this morning no respiratory distress. Objective Vital Signs Date Temp Pulse Resp B/P (MAP) Pulse Ox O2 O2 Flow FiO2 Time Delivery Rate 09/22/18 99 2.0 08:06 09/22/18 99 19 Nasal 08:06 Cannula 09/22/18 98.7 134/54 07:49 (80) 09/19/18 21 20:46 Intake and Output 09/21/18 09/21/18 09/22/18 1414:59 22:59 06:59 IntakeIntake Total 600 ml 1000 ml 200 ml BalanceBalance 600 ml 1000 ml 200 ml Exam PHYSICAL EXAMINATION: GENERAL: Thin, elderly-appearing lady, appears comfortable at rest, no acute distress. VITAL SIGNS: NECK: Supple. JVD is not elevated. CARDIAC: S1, S2, no added sounds or murmurs. CHEST: Diminished air entry bilaterally. ABDOMEN: Soft, nontender. No guarding or rebound. EXTREMITIES: No cyanosis, clubbing, 1+ edema. NEUROLOGIC: Grossly intact Vent Setting Fraction of Inspired Oxygen pe: 21 Results/Medications Result Diagram: 09/21/18 0637 09/21/18 0637 Results 24 hrs Laboratory Tests Test 09/21/18 10:59 09/21/18 11:14 09/21/18 12:37 09/21/18 14:40 Lab Scanned REFERENCE LAB REFERENCE LAB Report Bedside Glucose 161 Procalcitonin 0.16 H Test 09/21/18 16:57 09/21/18 20:16 09/22/18 07:54 Bedside Glucose 133 139 130 Medications Current Medications IV Flush (NS 3 ml) 3 ml PER PROTOCOL IV ; Start 09/15/18 at 07:30 Ondansetron HCl (Zofran Inj) 4 mg Q6H PRN IV NAUSEA/VOMITING Last administered on 09/19/18at 07:53; Admin Dose 4 MG; Start 09/15/18 at 07:30 Acetaminophen (Tylenol Tab) 650 mg Q6H PRN PO .PAIN 1-3 OR TEMP Last administered on 09/16/18at 21:56; Admin Dose 650 MG; Start 09/15/18 at 07:30 Baclofen (Lioresal) 10 mg BID PO Last administered on 09/22/18 08:51; Admin Dose 10 MG; Start 09/15/18 at 09:00 Buspirone HCl (Buspar) 10 mg BID PO Last administered on 09/22/18 08:50; Admin Dose 10 MG; Start 09/15/18 at 09:00 Calcium Carbonate (Oyster Shell Calcium) 1.25 gm BID PO Last administered on 09/22/18 08:50; Admin Dose 1.25 GM; Start 09/15/18 at 09:00 Clonazepam (Klonopin) 0.5 mg DAILY PRN PO ANXIETY Last administered on 09/22/18 03:32; Admin Dose 0.5 MG; Start 09/15/18 at 07:30 Docusate Sodium (Colace) 100 mg BID PO Last administered on 09/22/18 08:50; Admin Dose 100 MG; Start 09/15/18 at 09:00 Rifaximin (Xifaxan) 550 mg BID PO Last administered on 09/22/18 08:50; Admin Dose 550 MG; Start 09/15/18 at 09:00 Sertraline HCl (Zoloft) 100 mg DAILY PO ; Start 09/15/18 at 09:00; Status Hold Fluticasone/ Vilanterol (Breo Ellipta 200-25 Mcg Inh) 1 inh DAILY INH Last administered on 09/22/18 08:55; Admin Dose 1 INH; Start 09/15/18 at 09:00 Methylprednisolone Sodium Succinate (Solu-Medrol) 60 mg DAILY IV Last administered on 09/22/18 08:49; Admin Dose 60 MG; Start 09/15/18 at 09:00 Albuterol/ Ipratropium (Duoneb) 3 ml Q3H RESP THERAPY PRN HHN WHEEZING AND SOB Last administered on 09/21/18 21:08; Admin Dose 3 ML; Start 09/15/18 at 08:00 Levalbuterol (Xopenex Neb) 0.63 mg Q4H RESP THERAPY HHN Last administered on 09/22/18 08:06; Admin Dose 0.63 MG; Start 09/15/18 at 17:00 Levalbuterol (Xopenex Neb) 0.63 mg Q2H RESP THERAPY PRN HHN WHEEZING AND SOB; Start 09/15/18 at 14:00 Collagenase (Santyl) 1 applic DAILY TOP Last administered on 09/22/18 08:50; Admin Dose 1 APPLIC; Start 09/16/18 at 15:00 Insulin Aspart (Novolog Insulin Pen) NOVOLOG *MILD* ALGORITHM WITH MEALS BEDTIME SC Last administered on 09/21/18 12:39; Admin Dose 1 UNIT; Start 09/17/18 at 11:30 Acetaminophen/ Hydrocodone Bitart ([place] (5/325)) 1 tab Q6H PRN PO MODERATE PAIN LEVEL 4-6 Last administered on 09/21/18 20:22; Admin Dose 1 TAB; Start 09/17/18 at 11:30 Methadone HCl (Methadone Liq) 15 mg Q8 PRN PO SEVERE PAIN Last administered on 09/22/18 01:32; Admin Dose 15 MG; Start 09/17/18 at 18:30 Apixaban (Eliquis) 5 mg BID PO Last administered on 09/22/18 08:51; Admin Dose 5 MG; Start 09/19/18 at 21:00 Levofloxacin/ Dextrose 100 ml @ 100 mls/hr Q24H IVPB Last administered on 09/21/18 12:38; Admin Dose 100 MLS/HR; Start 09/19/18 at 12:00 Multivitamins Therapeutic (Theragran) 1 tab DAILY PO Last administered on 09/22/18 09:33; Admin Dose 1 TAB; Start 09/19/18 at 12:00 Ascorbic Acid (Vitamin C) 500 mg DAILY PO Last administered on 09/22/18 08:51; Admin Dose 500 MG; Start 09/19/18 at 12:00 Zinc Sulfate (Zinc Sulfate) 220 mg DAILY PO Last administered on 09/22/18 08:50; Admin Dose 220 MG; Start 09/19/18 at 12:00 Thiamine HCl (Vitamin B1) 50 mg DAILY PO Last administered on 09/22/18 08:51; Admin Dose 50 MG; Start 09/19/18 at 12:00 Simethicone (Mylicon) 80 mg Q6H PRN PO DISTENSION/GAS/BLOATING Last administered on 09/20/18 06:45; Admin Dose 80 MG; Start 09/20/18 at 06:30 Diltiazem HCl (Cardizem Cd) 120 mg DAILY PO Last administered on 09/22/18 08:54; Admin Dose 120 MG; Start 09/20/18 at 09:00 Famotidine (Pepcid) 20 mg DAILY PO Last administered on 09/22/18 08:51; Admin Dose 20 MG; Start 09/21/18 at 09:00 Zolpidem Tartrate (Ambien) 5 mg HS PRN PO INSOMNIA Last administered on 09/22/18 01:31; Admin Dose 5 MG; Start 09/21/18 at 02:00 Phenol (Cepastat Lozenge) 1 lozenge Q1H PRN MT SORE THROAT Last administered on 09/22/18 03:32; Admin Dose 1 LOZENGE; Start 09/22/18 at 01:00 Assessment/Plan Hospital Course (Demo Recall) IMPRESSION 1. Likely demand ischemia type 2, non-ST elevation myocardial infarction. No significant right heart failure on echocardiogram 2. Chronic obstructive pulmonary disease with acute exacerbation. 3. Underlying psychiatric disorder. Resumed methadone for chronic pain 4. Dehydration and renal insufficiency. 5. History of venous thromboembolism Plan: 1. Advance diet as tolerated. Aspiration precautions 2. Bronchodilators. 3. Supplemental O2. 4. Steroid taper. 5. Continue Eliquis anticoagulation 6. DVT and GI prophylaxis. 7. PT eval encourage out of bed ARU versus SNF EMMA STEINBERG MD, [facility] Sep 22, 2018 09:46
[2018-09-22 11:47] VITALS: BP 121/58; PULSE 112; RESP 20
[2018-09-22] MEDS: LEVOFLOXACIN 500MG/D5W (PMX) 100 ML IVPB SCH (12:28)
[2018-09-22 15:38] VITALS: BP 102/57; PULSE 79; RESP 17
--- NOTE | 2018-09-22 16:09 | PN ---
Date/Time of Note Date/Time of Note DATE: 09/22/18 TIME: 16:07 Assessment/Plan VTE Prophylaxis Risk score (from Ns)>0 risk: 7 SCD applied (from Ns): No SCD contraindicated: other (no) Pharmacological prophylaxis: apixaban Lines/Catheters IV Catheter Type (from [facility]): Mid Line Urinary Cath still in place: No Assessment/Plan Assessment/Plan 68-year-old female history COPD, PE May 2018, CKD, who presents with: 1. Hypoxic and hypercapnic respiratory failure: Slowly improving, most likely secondary to COPD exacerbation, with likely superimposed pneumonia given the chest x-ray findings. - For now continue supplemental oxygen, bronchodilators, broad-spectrum antibiotics - DuoNebs, follow further recommendations from pulmonary consult - Have change methadone to a lower dose and also to as needed status given the respiratory failure patient presented with, continue cautiously - Continue Eliquis for PE in May 2018. 2. NSTEMI-First troponin 0.57. It was 0.407 in May of this year when she was diagnosed with PE, at that time she was diagnosed with a type II event. - Monitor serial troponin - Follow-up recommendations from cardiology consult - Continue Eliquis 3. Sepsis: Unknown source-although pneumonia is high on the differential. Again nares are positive for MRSA. Also waiting for UA results. Lactic acid was high on admission, trending down now. -Continue broad-spectrum IV antibiotics, monitor WBC (more elevated today, but no fevers, likely secondary to IV steroids patient is been getting) -Follow-up final culture results -continue IV fluids, Tylenol PRN pain and fevers 4. Acute renal insufficiency: Likely prerenal. Creatinine much improved in the last 24 hours, patient has adequate urine output. Renal team on the case. -For now continue half-normal saline IV fluids -follow-up further renal recommendations 5. Elevated transaminases: -Found on admission. Trending down now, likely secondary to the septic shock patient came in with. Patient with a known history of hep C liver disease 6. Hypernatremia: Resolved now, suspect from dehydration -We will stop D5W IV fluids, and switch to half-normal saline, monitor basic metabolic panel the a.m. 7. Anemia - Downtrending Hgb. - Will check stool occult blood. No bowel movement since admission. Result Diagram: 09/21/18 0637 09/21/18 0637 Subjective 24 Hr Interval Summary Free Text/Dictation No acute overnight events. Patient stood up a little bit with help from PT Exam/Review of Systems Exam Vitals Vital Signs Date Temp Pulse Resp B/P (MAP) Pulse Ox O2 O2 Flow FiO2 Time Delivery Rate 09/22/18 98.7 79 17 102/57 98 Nasal 2.0 15:38 (72) Cannula 09/19/18 21 20:46 Intake and Output 09/21/18 09/21/18 09/22/18 1515:00 23:00 07:00 IntakeIntake Total 600 ml 1000 ml 200 ml BalanceBalance 600 ml 1000 ml 200 ml Exam Gen: Thin frail appearing woman lying in bed, awake and alert. Head: Atraumatic Eyes: Normal Conjunctiva ENT: Normal External Ears, Nose and Mouth. Neck: Full range of motion. No meningismus. Resp: Clear to auscultation bilaterally Cardio: Hyperdynamic precordium. Regular rate and rhythm, no murmurs Abd: Soft, non tender, non distended. Normal bowel sounds Ext: No bilateral lower extremity edema Results Results 24hrs Laboratory Tests Test 09/21/18 16:57 09/21/18 20:16 09/22/18 07:54 09/22/18 11:41 Bedside Glucose 133 139 130 195 Medications Medication Current Medications IV Flush (NS 3 ml) 3 ml PER PROTOCOL IV ; Start 09/15/18 at 07:30 Ondansetron HCl (Zofran Inj) 4 mg Q6H PRN IV NAUSEA/VOMITING Last administered on 09/19/18 07:53; Admin Dose 4 MG; Start 09/15/18 at 07:30 Acetaminophen (Tylenol Tab) 650 mg Q6H PRN PO .PAIN 1-3 OR TEMP Last administered on 09/16/18 21:56; Admin Dose 650 MG; Start 09/15/18 at 07:30 Baclofen (Lioresal) 10 mg BID PO Last administered on 09/22/18 08:51; Admin Dose 10 MG; Start 09/15/18 at 09:00 Buspirone HCl (Buspar) 10 mg BID PO Last administered on 09/22/18 08:50; Admin Dose 10 MG; Start 09/15/18 at 09:00 Calcium Carbonate (Oyster Shell Calcium) 1.25 gm BID PO Last administered on 09/22/18 08:50; Admin Dose 1.25 GM; Start 09/15/18 at 09:00 Clonazepam (Klonopin) 0.5 mg DAILY PRN PO ANXIETY Last administered on 09/22/18 03:32; Admin Dose 0.5 MG; Start 09/15/18 at 07:30 Docusate Sodium (Colace) 100 mg BID PO Last administered on 09/22/18 08:50; Admin Dose 100 MG; Start 09/15/18 at 09:00 Rifaximin (Xifaxan) 550 mg BID PO Last administered on 09/22/18 08:50; Admin Dose 550 MG; Start 09/15/18 at 09:00 Sertraline HCl (Zoloft) 100 mg DAILY PO ; Start 09/15/18 at 09:00; Status Hold Fluticasone/ Vilanterol (Breo Ellipta 200-25 Mcg Inh) 1 inh DAILY INH Last administered on 09/22/18 08:55; Admin Dose 1 INH; Start 09/15/18 at 09:00 Methylprednisolone Sodium Succinate (Solu-Medrol) 60 mg DAILY IV Last administered on 09/22/18 08:49; Admin Dose 60 MG; Start 09/15/18 at 09:00 Albuterol/ Ipratropium (Duoneb) 3 ml Q3H RESP THERAPY PRN HHN WHEEZING AND SOB Last administered on 09/21/18 21:08; Admin Dose 3 ML; Start 09/15/18 at 08:00 Levalbuterol (Xopenex Neb) 0.63 mg Q4H RESP THERAPY HHN Last administered on 09/22/18 08:06; Admin Dose 0.63 MG; Start 09/15/18 at 17:00 Levalbuterol (Xopenex Neb) 0.63 mg Q2H RESP THERAPY PRN HHN WHEEZING AND SOB; Start 09/15/18 at 14:00 Collagenase (Santyl) 1 applic DAILY TOP Last administered on 09/22/18 08:50; Admin Dose 1 APPLIC; Start 09/16/18 at 15:00 Insulin Aspart (Novolog Insulin Pen) NOVOLOG *MILD* ALGORITHM WITH MEALS BEDTIME SC Last administered on 09/22/18 11:46; Admin Dose 2 UNIT; Start 09/17/18 at 11:30 Acetaminophen/ Hydrocodone Bitart ([place] (5/325)) 1 tab Q6H PRN PO MODERATE PAIN LEVEL 4-6 Last administered on 09/21/18 20:22; Admin Dose 1 TAB; Start 09/17/18 at 11:30 Methadone HCl (Methadone Liq) 15 mg Q8 PRN PO SEVERE PAIN Last administered on 09/22/18 11:52; Admin Dose 15 MG; Start 09/17/18 at 18:30 Apixaban (Eliquis) 5 mg BID PO Last administered on 09/22/18 08:51; Admin Dose 5 MG; Start 09/19/18 at 21:00 Levofloxacin/ Dextrose 100 ml @ 100 mls/hr Q24H IVPB Last administered on 09/22/18 12:28; Admin Dose 100 MLS/HR; Start 09/19/18 at 12:00; Stop 09/22/18 at 23:45 Multivitamins Therapeutic (Theragran) 1 tab DAILY PO Last administered on 09/22/18 09:33; Admin Dose 1 TAB; Start 09/19/18 at 12:00 Ascorbic Acid (Vitamin C) 500 mg DAILY PO Last administered on 09/22/18 08:51; Admin Dose 500 MG; Start 09/19/18 at 12:00 Zinc Sulfate (Zinc Sulfate) 220 mg DAILY PO Last administered on 09/22/18 08:50; Admin Dose 220 MG; Start 09/19/18 at 12:00 Thiamine HCl (Vitamin B1) 50 mg DAILY PO Last administered on 09/22/18 08:51; Admin Dose 50 MG; Start 09/19/18 at 12:00 Simethicone (Mylicon) 80 mg Q6H PRN PO DISTENSION/GAS/BLOATING Last administered on 09/20/18 06:45; Admin Dose 80 MG; Start 09/20/18 at 06:30 Diltiazem HCl (Cardizem Cd) 120 mg DAILY PO Last administered on 09/22/18 08:54; Admin Dose 120 MG; Start 09/20/18 at 09:00 Famotidine (Pepcid) 20 mg DAILY PO Last administered on 09/22/18 08:51; Admin Dose 20 MG; Start 09/21/18 at 09:00 Zolpidem Tartrate (Ambien) 5 mg HS PRN PO INSOMNIA Last administered on 09/22/18at 01:31; Admin Dose 5 MG; Start 09/21/18 at 02:00 Phenol (Cepastat Lozenge) 1 lozenge Q1H PRN MT SORE THROAT Last administered on 09/22/18at 03:32; Admin Dose 1 LOZENGE; Start 09/22/18 at 01:00 Levofloxacin (Levaquin) 500 mg DAILY@06 PO ; Start 09/23/18 at 06:00 PRASHANT HILTON MD Sep 22, 2018 16:09
[2018-09-22 20:00] VITALS: BP 108/57; PULSE 107; RESP 18
[2018-09-22 23:55] VITALS: BP 112/61; PULSE 98; RESP 19
[2018-09-23 00:36] VITALS: BP 134/63; PULSE 113; RESP 18
[2018-09-23] MEDS: LEVALBUTEROL (NEB) 0.63 MG/3 ML AMP HHN SCH ×6 (01:00→20:47)
[2018-09-23] MEDS: ZOLPIDEM 5 MG TAB PO PRN (01:12)
[2018-09-23 01:59] VITALS: BP 126/59; PULSE 107; RESP 18
[2018-09-23] MEDS: clonAZEPAM 0.5 MG TAB PO PRN (02:04)
[2018-09-23] MEDS ORDERED: LEVOFLOXACIN 500 MG TAB PO SCH (06:00)
[2018-09-23] MEDS: METHADONE (1 MG/ML 5 ML PO UD SYG) PO PRN ×2 (07:26→23:21)
[2018-09-23 07:45] VITALS: BP 133/60; PULSE 104; RESP 15
[2018-09-23] MEDS: INSULIN ASPART [NOVOLOG] 3 ML PEN SC SCH ×4 (08:00→20:37)
[2018-09-23] MEDS: RIFAXIMIN 550 MG TAB PO SCH ×2 (09:00→20:33)
[2018-09-23] MEDS: ZINC SULFATE 220 MG CAP PO SCH (09:00)
[2018-09-23] MEDS: HYDROCODONE/APAP (5/325) TAB PO PRN (09:38)
[2018-09-23] MEDS: METHYLPREDNISOLONE 125 MG INJ IV SCH (09:39)
[2018-09-23] MEDS: DOCUSATE SODIUM 100 MG CAP PO SCH ×2 (09:43→20:33)
[2018-09-23] MEDS: MULTIVITAMINS THERAPEUTIC TAB PO SCH (09:43)
[2018-09-23] MEDS: FAMOTIDINE 20 MG TAB PO SCH (09:44)
[2018-09-23] MEDS: THIAMINE 100 MG TAB PO SCH (09:45)
[2018-09-23] MEDS: ASCORBIC ACID 500 MG TAB PO SCH (09:45)
[2018-09-23] MEDS: APIXABAN 5 MG TABLET PO SCH (09:45)
[2018-09-23] MEDS: BACLOFEN 10 MG TAB PO SCH ×2 (09:45→20:33)
[2018-09-23] MEDS: COLLAGENASE 5 GM (UD JAR) TOP SCH (09:50)
[2018-09-23] MEDS ORDERED: MAGNESIUM SULFATE 2 GM/50 ML 50 ML IVPB ONE ×2 (10:00→11:30)
--- NOTE | 2018-09-23 10:38 | CONS ---
Consultation Date/Type/Reason Admit Date/Time Sep 15, 2018 at 03:32 Initial Consult Date 09/15/18 Type of Consult Pulmonary Patient is complaining of diarrhea as well as significant left lower quadrant abdominal pain. Denies any fever, chills, any vomiting. Shortness of breath has resolved. General exam; elderly female, laying in bed. H EENT exam; supple no JVD. No lymphadenopathy. Midline trachea. No thyromegaly. Pharynx is clear. Patient is edentulous. Chest exam; diminished but clear breath sounds. S1-S2 audible, no murmurs. Regular rhythm. Abdomen exam; soft, there is left lower quadrant tenderness , bowel sounds audible. Extremity exam; no peripheral edema. 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 Assessment and recommendations; 1. Patient admitted with COPD exacerbation with interval improvement. 2. Significant spike and leukocytosis with abdominal pain as well as diarrhea. Add Flagyl 5 mg IV every [address] of abdomen pelvis with contrast. Obtain surgical consult. Date/Time of Note DATE: 09/23/18 TIME: 10:36 Exam/Review of Systems Exam Vitals Vital Signs Date Temp Pulse Resp B/P (MAP) Pulse Ox O2 O2 Flow FiO2 Time Delivery Rate 09/23/18 98.0 104 15 133/60 98 07:45 (84) 09/23/18 2.0 02:22 09/22/18 Nasal 23:55 Cannula 09/19/18 21 20:46 Intake and Output 09/22/18 09/22/18 09/23/18 1515:00 23:00 07:00 IntakeIntake Total 750 ml 550 ml OutputOutput Total 1 ml BalanceBalance 750 ml 549 ml Results Result Diagram: 09/23/18 0527 09/23/18 0527 Results 24hrs Laboratory Tests Test 09/22/18 11:41 09/22/18 17:48 09/22/18 21:46 09/23/18 04:35 Bedside Glucose 195 188 151 Stool Occult Blood POSITIVE Test 09/23/18 05:27 09/23/18 08:14 White Blood Count 21.1 H Red Blood Count 2.24 L Hemoglobin 7.0 L Hematocrit 21.1 L Mean Corpuscular 94.2 Volume Mean Corpuscular 31.3 Hemoglobin Mean Corpuscular 33.2 Hemoglobin Concent Red Cell 15.2 H Distribution Width Platelet Count 333 # Mean Platelet Volume 11.8 H Immature 0.900 H Granulocytes % Neutrophils % Segmented 64 Neutrophils % (Manual) Band Neutrophils % 30 H (Manual) Lymphocytes % Lymphocytes % 2 L (Manual) Monocytes % Monocytes % (Manual) 4 Eosinophils % Basophils % Nucleated Red Blood 0.1 H Cells % Immature 0.180 H Granulocytes # Neutrophils # Neutrophils # 14.8 H (Manual) Band Neutrophils # 6.3 H Lymphocytes (Manual) 0.4 L Lymphocytes # Monocytes # Monocytes # (Manual) 0.8 Eosinophils # Basophils # Nucleated Red Blood Cells # Toxic Granulation 1+ Platelet Estimate NORMAL Polychromasia 2+ Hypochromasia 1+ Anisocytosis 1+ Macrocytosis 1+ Sodium Level 133 L Potassium Level 3.9 Chloride Level 102 Carbon Dioxide Level 26 Anion Gap 5 Blood Urea Nitrogen 30 H Creatinine 0.72 Est Glomerular > 60 Filtrat Rate mL/min Glucose Level 118 Calcium Level 7.4 L Phosphorus Level 3.8 Magnesium Level 1.6 L Bedside Glucose 97 Medications Medication Current Medications IV Flush (NS 3 ml) 3 ml PER PROTOCOL IV ; Start 09/15/18 at 07:30 Ondansetron HCl (Zofran Inj) 4 mg Q6H PRN IV NAUSEA/VOMITING Last administered on 09/19/18 07:53; Admin Dose 4 MG; Start 09/15/18 at 07:30 Acetaminophen (Tylenol Tab) 650 mg Q6H PRN PO .PAIN 1-3 OR TEMP Last administered on 09/16/18 21:56; Admin Dose 650 MG; Start 09/15/18 at 07:30 Baclofen (Lioresal) 10 mg BID PO Last administered on 09/23/18 09:45; Admin Dose 10 MG; Start 09/15/18 at 09:00 Buspirone HCl (Buspar) 10 mg BID PO Last administered on 09/22/18 21:41; Admin Dose 10 MG; Start 09/15/18 at 09:00 Calcium Carbonate (Oyster Shell Calcium) 1.25 gm BID PO Last administered on 09/22/18 21:42; Admin Dose 1.25 GM; Start 09/15/18 at 09:00 Clonazepam (Klonopin) 0.5 mg DAILY PRN PO ANXIETY Last administered on 08/30 02:04; Admin Dose 0.5 MG; Start 09/15/18 at 07:30 Docusate Sodium (Colace) 100 mg BID PO Last administered on 09/23/18 09:43; Admin Dose 100 MG; Start 09/15/18 at 09:00 Rifaximin (Xifaxan) 550 mg BID PO Last administered on 09/22/18 21:42; Admin Dose 550 MG; Start 09/15/18 at 09:00 Sertraline HCl (Zoloft) 100 mg DAILY PO ; Start 09/15/18 at 09:00; Status Hold Fluticasone/ Vilanterol (Breo Ellipta 200-25 Mcg Inh) 1 inh DAILY INH Last administered on 09/22/18 08:55; Admin Dose 1 INH; Start 09/15/18 at 09:00 Methylprednisolone Sodium Succinate (Solu-Medrol) 60 mg DAILY IV Last admi nistered on 09/23/18 09:39; Admin Dose 60 MG; Start 09/15/18 at 09:00 Albuterol/ Ipratropium (Duoneb) 3 ml Q3H RESP THERAPY PRN HHN WHEEZING AND SOB Last administered on 09/21/18 21:08; Admin Dose 3 ML; Start 09/15/18 at 08:00 Levalbuterol (Xopenex Neb) 0.63 mg Q4H RESP THERAPY HHN Last administered on 09/22/18 08:06; Admin Dose 0.63 MG; Start 09/15/18 at 17:00 Levalbuterol (Xopenex Neb) 0.63 mg Q2H RESP THERAPY PRN HHN WHEEZING AND SOB; Start 09/15/18 at 14:00 Collagenase (Santyl) 1 applic DAILY TOP Last administered on 09/23/18 09:50; Admin Dose 1 APPLIC; Start 09/16/18 at 15:00 Insulin Aspart (Novolog Insulin Pen) NOVOLOG *MILD* ALGORITHM WITH MEALS BEDTIME SC Last administered on 09/22/18 17:53; Admin Dose 2 UNIT; Start 09/17/18 at 11:30 Acetaminophen/ Hydrocodone Bitart ([place] (5/325)) 1 tab Q6H PRN PO MODERATE PAIN LEVEL 4-6 Last administered on 09/23/18 09:38; Admin Dose 1 TAB; Start 09/17/18 at 11:30 Methadone HCl (Methadone Liq) 15 mg Q8 PRN PO SEVERE PAIN Last administered on 09/23/18 07:26; Admin Dose 15 MG; Start 09/17/18 at 18:30 Apixaban (Eliquis) 5 mg BID PO Last administered on 09/23/18 09:45; Admin Dose 5 MG; Start 09/19/18 at 21:00 Multivitamins Therapeutic (Theragran) 1 tab DAILY PO Last administered on 09/23/18 09:43; Admin Dose 1 TAB; Start 09/19/18 at 12:00 Ascorbic Acid (Vitamin C) 500 mg DAILY PO Last administered on 09/23/18 09:45; Admin Dose 500 MG; Start 09/19/18 at 12:00 Zinc Sulfate (Zinc Sulfate) 220 mg DAILY PO Last administered on 09/22/18 08:50; Admin Dose 220 MG; Start 09/19/18 at 12:00 Thiamine HCl (Vitamin B1) 50 mg DAILY PO Last administered on 09/23/18 09:45; Admin Dose 50 MG; Start 09/19/18 at 12:00 Simethicone (Mylicon) 80 mg Q6H PRN PO DISTENSION/GAS/BLOATING Last administered on 09/22/18 23:50; Admin Dose 80 MG; Start 09/20/18 at 06:30 Diltiazem HCl (Cardizem Cd) 120 mg DAILY PO Last administered on 09/22/18 08:54; Admin Dose 120 MG; Start 09/20/18 at 09:00 Famotidine (Pepcid) 20 mg DAILY PO Last administered on 09/23/18 09:44; Admin Dose 20 MG; Start 09/21/18 at 09:00 Zolpidem Tartrate (Ambien) 5 mg HS PRN PO INSOMNIA Last administered on 09/23/18 01:12; Admin Dose 5 MG; Start 09/21/18 at 02:00 Phenol (Cepastat Lozenge) 1 lozenge Q1H PRN MT SORE THROAT Last administered on 09/22/18 03:32; Admin Dose 1 LOZENGE; Start 09/22/18 at 01:00 Levofloxacin (Levaquin) 500 mg DAILY@06 PO Last administered on 09/23/18 07:21; Admin Dose 500 MG; Start 09/23/18 at 06:00 Magnesium Sulfate 50 ml @ 25 mls/hr ONCE ONCE IVPB ; Start 09/23/18 at 10:00; Stop 09/23/18 at 11:59 JOSÉ MIGUEL THOMSON Sep 23, 2018 10:38
[2018-09-23] MEDS ORDERED: IOHEXOL 14.3 MG(I)/ML (ADULT) BTL PO ONE (11:00)
[2018-09-23] MEDS: BUSPIRONE 10 MG TAB PO SCH ×3 (11:10→20:33)
[2018-09-23] MEDS: DILTIAZEM (CD) 120 MG CAP PO SCH ×2 (11:11→11:41)
[2018-09-23] MEDS: CALCIUM CARBONATE 1.25 GM TAB PO SCH ×3 (11:11→20:33)
--- NOTE | 2018-09-23 11:28 | CONS ---
Consult Date/Type/Reason Admit Date/Time Sep 15, 2018 at 03:32 Initial Consult Date 09/15/18 Date/Time of Note DATE: 09/23/18 TIME: 11:23 Subjective 68-year-old female with the past medical history of COPD, history of previous PE, psychiatric disorder, chronic kidney disease, hepatitis C, liver disease who was brought in the ER after noticing dyspnea progressively worse and requires to be on BiPAP. On admission, the patient has been weaned down. On the course of the workup, was noted to have renal failure. She continues to have good urine output since she has been here. clinically improved. AAOx3 with some confusion off ivf. noted abd pain PHYSICAL EXAMINATION: HEENT: Normocephalic, atraumatic. Pupils are equal, round, reactive to light. Oropharynx has moist mucous membranes. NECK: Supple. HEART: Regular rate and rhythm. LUNGS: Clear to auscultation. ABDOMEN: Soft, nontender, nondistended. Normal bowel sounds. no rebound or guarding. EXTREMITIES: No clubbing, cyanosis or edema. Objective Vitals Vital Signs Date Temp Pulse Resp B/P (MAP) Pulse Ox O2 O2 Flow FiO2 Time Delivery Rate 09/23/18 Nasal 2.0 08:10 Cannula 09/23/18 98.0 104 15 133/60 98 07:45 (84) 09/19/18 21 20:46 Intake and Output 09/22/18 09/22/18 09/23/18 1515:00 23:00 07:00 IntakeIntake Total 750 ml 550 ml OutputOutput Total 1 ml BalanceBalance 750 ml 549 ml Results/Medications Result Diagram: 09/23/18 0527 09/23/18 0527 Results 24 hrs Laboratory Tests Test 09/22/18 11:41 09/22/18 17:48 09/22/18 21:46 09/23/18 04:35 Bedside Glucose 195 188 151 Stool Occult Blood POSITIVE Test 09/23/18 05:27 09/23/18 08:14 White Blood Count 21.1 H Red Blood Count 2.24 L Hemoglobin 7.0 L Hematocrit 21.1 L Mean Corpuscular 94.2 Volume Mean Corpuscular 31.3 Hemoglobin Mean Corpuscular 33.2 Hemoglobin Concent Red Cell 15.2 H Distribution Width Platelet Count 333 # Mean Platelet Volume 11.8 H Immature 0.900 H Granulocytes % Neutrophils % Segmented 64 Neutrophils % (Manual) Band Neutrophils % 30 H (Manual) Lymphocytes % Lymphocytes % 2 L (Manual) Monocytes % Monocytes % (Manual) 4 Eosinophils % Basophils % Nucleated Red Blood 0.1 H Cells % Immature 0.180 H Granulocytes # Neutrophils # Neutrophils # 14.8 H (Manual) Band Neutrophils # 6.3 H Lymphocytes (Manual) 0.4 L Lymphocytes # Monocytes # Monocytes # (Manual) 0.8 Eosinophils # Basophils # Nucleated Red Blood Cells # Toxic Granulation 1+ Platelet Estimate NORMAL Polychromasia 2+ Hypochromasia 1+ Anisocytosis 1+ Macrocytosis 1+ Sodium Level 133 L Potassium Level 3.9 Chloride Level 102 Carbon Dioxide Level 26 Anion Gap 5 Blood Urea Nitrogen 30 H Creatinine 0.72 Est Glomerular > 60 Filtrat Rate mL/min Glucose Level 118 Calcium Level 7.4 L Phosphorus Level 3.8 Magnesium Level 1.6 L Bedside Glucose 97 Home Meds Active Scripts Pantoprazole* (Pantoprazole*) 40 Mg Tablet.dr, 40 MG PO DAILY@06 for 14 Days, #14 Prov:RICKIE DALTON MD 06/12/18 Apixaban* (Eliquis*) 5 Mg Tablet, 10 MG PO BID for 30 Days, #60 TAB 10 mg twice daily for 5 days, then 5 mg twice daily Prov:RICKIE DALTON MD 06/12/18 Methadone Hcl* (Methadone*) 5 Mg/5 Ml Solution, 68 MG PO DAILY for 30 Days, ML Prov:STU ORTEZ S. 04/14/18 Salmeterol Xinaf/Fluticasone* (Advair*) 250-50 Diskus Inhaler, 1 INH INHALATION BID for 30 Days, #1 INHALER Prov:ZHANG WARE TAXATION ACCOUNTANT 02/28/16 Albuterol Sulfate* (Proair HFA*) 8.5 Gm Hfa.aer.ad, 2 PUFF INH Q6 for SHORTNESS OF BREATH for 14 Days, #1 INHALER Prov:ZHANG WARE TAXATION ACCOUNTANT 02/28/16 Reported Medications Sertraline Hcl* (Sertraline Hcl*) 25 Mg Tablet, 25 MG PO DAILY, #30 TAB 09/15/18 Buspirone Hcl* (Buspirone Hcl*) 10 Mg Tab, 10 MG PO BID, TAB 09/15/18 Clonazepam* (Clonazepam*) 0.5 Mg Tablet, 0.5 MG PO DAILY PRN for ANXIETY, TAB 09/15/18 Ipratropium-Albuterol (Ipratropium-Albuterol) 0.5-3 Mg/3 Ml Ampul.neb, 3 ML INHALATION Q6 PRN for WHEEZING AND SOB, #30 VIAL 09/15/18 Carvedilol* (Carvedilol*) 6.25 Mg Tablet, 6.25 MG PO BID, #60 TAB 09/15/18 Cholecalciferol (Vitamin D3) (VITAMIN D-3) 2,000 Unit Capsule, 2000 U PO DAILY for 30 Days 04/30/18 Amlodipine Besylate* (Amlodipine Besylate*) 5 Mg Tablet, 5 MG PO DAILY for 30 Days, #30 04/30/18 Baclofen* (Baclofen*) 10 Mg Tablet, 10 MG PO BID 04/30/18 Calcium Carbonate ([id number]) 500 Mg Tablet, 500 MG PO BID, TAB 04/30/18 Medications Current Medications IV Flush (NS 3 ml) 3 ml PER PROTOCOL IV ; Start 09/15/18 at 07:30 Ondansetron HCl (Zofran Inj) 4 mg Q6H PRN IV NAUSEA/VOMITING Last administered on 09/19/18at 07:53; Admin Dose 4 MG; Start 09/15/18 at 07:30 Acetaminophen (Tylenol Tab) 650 mg Q6H PRN PO .PAIN 1-3 OR TEMP Last administered on 09/16/18 21:56; Admin Dose 650 MG; Start 09/15/18 at 07:30 Baclofen (Lioresal) 10 mg BID PO Last administered on 09/23/18 09:45; Admin Dose 10 MG; Start 09/15/18 at 09:00 Buspirone HCl (Buspar) 10 mg BID PO Last administered on 09/22/18 21:41; Admin Dose 10 MG; Start 09/15/18 at 09:00 Calcium Carbonate (Oyster Shell Calcium) 1.25 gm BID PO Last administered on 09/22/18at 21:42; Admin Dose 1.25 GM; Start 09/15/18 at 09:00 Clonazepam (Klonopin) 0.5 mg DAILY PRN PO ANXIETY Last administered on 09/23/18 02:04; Admin Dose 0.5 MG; Start 09/15/18 at 07:30 Docusate Sodium (Colace) 100 mg BID PO Last administered on 09/23/18 09:43; Admin Dose 100 MG; Start 09/15/18 at 09:00 Rifaximin (Xifaxan) 550 mg BID PO Last administered on 09/22/18 21:42; Admin Dose 550 MG; Start 09/15/18 at 09:00 Sertraline HCl (Zoloft) 100 mg DAILY PO ; Start 09/15/18 at 09:00; Status Hold Fluticasone/ Vilanterol (Breo Ellipta 200-25 Mcg Inh) 1 inh DAILY INH Last administered on 09/22/18 08:55; Admin Dose 1 INH; Start 09/15/18 at 09:00 Methylprednisolone Sodium Succinate (Solu-Medrol) 60 mg DAILY IV Last administered on 09/23/18 09:39; Admin Dose 60 MG; Start 09/15/18 at 09:00 Albuterol/ Ipratropium (Duoneb) 3 ml Q3H RESP THERAPY PRN HHN WHEEZING AND SOB Last administered on 09/21/18 21:08; Admin Dose 3 ML; Start 09/15/18 at 08:00 Levalbuterol (Xopenex Neb) 0.63 mg Q4H RESP THERAPY HHN Last administered on 09/22/18 08:06; Admin Dose 0.63 MG; Start 09/15/18 at 17:00 Levalbuterol (Xopenex Neb) 0.63 mg Q2H RESP THERAPY PRN HHN WHEEZING AND SOB; Start 09/15/18 at 14:00 Collagenase (Santyl) 1 applic DAILY TOP Last administered on 09/23/18 09:50; Admin Dose 1 APPLIC; Start 09/16/18 at 15:00 Insulin Aspart (Novolog Insulin Pen) NOVOLOG *MILD* ALGORITHM WITH MEALS BEDTIME SC Last administered on 09/22/18 17:53; Admin Dose 2 UNIT; Start 09/17/18 at 11:30 Acetaminophen/ Hydrocodone Bitart ([place] (5/325)) 1 tab Q6H PRN PO MODERATE PAIN LEVEL 4-6 Last administered on 09/23/18 09:38; Admin Dose 1 TAB; Start 09/17/18 at 11:30 Methadone HCl (Methadone Liq) 15 mg Q8 PRN PO SEVERE PAIN Last administered on 09/23/18 07:26; Admin Dose 15 MG; Start 09/17/18 at 18:30 Apixaban (Eliquis) 5 mg BID PO Last administered on 09/23/18 09:45; Admin Dose 5 MG; Start 09/19/18 at 21:00 Multivitamins Therapeutic (Theragran) 1 tab DAILY PO Last administered on 09/23/18 09:43; Admin Dose 1 TAB; Start 09/19/18 at 12:00 Ascorbic Acid (Vitamin C) 500 mg DAILY PO Last administered on 09/23/18 09:45; Admin Dose 500 MG; Start 09/19/18 at 12:00 Zinc Sulfate (Zinc Sulfate) 220 mg DAILY PO Last administered on 09/22/18 08:50; Admin Dose 220 MG; Start 09/19/18 at 12:00 Thiamine HCl (Vitamin B1) 50 mg DAILY PO Last administered on 09/23/18 09:45; Admin Dose 50 MG; Start 09/19/18 at 12:00 Simethicone (Mylicon) 80 mg Q6H PRN PO DISTENSION/GAS/BLOATING Last administered on 09/22/18 23:50; Admin Dose 80 MG; Start 09/20/18 at 06:30 Diltiazem HCl (Cardizem Cd) 120 mg DAILY PO Last administered on 09/22/18 08:54; Admin Dose 120 MG; Start 09/20/18 at 09:00 Famotidine (Pepcid) 20 mg DAILY PO Last administered on 09/23/18 09:44; Admin Dose 20 MG; Start 09/21/18 at 09:00 Zolpidem Tartrate (Ambien) 5 mg HS PRN PO INSOMNIA Last administered on 09/23/18 01:12; Admin Dose 5 MG; Start 09/21/18 at 02:00 Phenol (Cepastat Lozenge) 1 lozenge Q1H PRN MT SORE THROAT Last administered on 09/22/18 03:32; Admin Dose 1 LOZENGE; Start 09/22/18 at 01:00 Levofloxacin (Levaquin) 500 mg DAILY@06 PO Last administered on 7/26/19at 07:21 ; Admin Dose 500 MG; Start 09/23/18 at 06:00 Magnesium Sulfate 50 ml @ 25 mls/hr ONCE ONCE IVPB ; Start 09/23/18 at 10:00; Stop 09/23/18 at 11:59 Metronidazole 100 ml @ 100 mls/hr Q8 IVPB ; Start 09/23/18 at 14:00 Assessment/Plan Hospital Course (Demo Recall) 1. Acute renal insufficiency, possibly vasomotor nephropathy, rule out acute tubular necrosis - stabilized and improving at good interval. off ivf. - All medications are dosed appropriately for renal function. - watch for diuretic phase of russ with electorlyte wasting. replace mag. monitor sodium. 2. Acute respiratory failure, likely related to chronic obstructive pulmonary disease exacerbation. bronchodilators, pulmonary followup. 3. Non-ST myocardial infarction, likely demand ischemia type 2. Cardiology is following. Medication optimized. 4. Sepsis, unknown source, possibly evolving pneumonia although impressed by the chest x-ray. Continue to monitor. sudden surge in WBC although patient on steroids. 5. Elevated transaminases with the history of hepatitis C. ultrasound nondiagnostic sec to bowel gas. 6. Hyponatremia, likely related to total body water deficit. corrected wth iv. monitor off. 7. anemia- downtrending. further decreased. fu stool ob. on famotidine. 8. abd pain- ct ordered. previous ultrasound reviewed. CHELSIE RAMÍREZ MD Sep 23, 2018 11:28
[2018-09-23] MEDS: FLUTICASONE/VILANTEROL 200-25 INH DEVICE INH SCH (11:39)
[2018-09-23] MEDS: BALSAM PERU/CASTOR OIL 60 GM TUBE TOP SCH ×2 (11:43→20:37)
[2018-09-23 13:34] VITALS: BP 117/74; PULSE 88; RESP 15
[2018-09-23] MEDS ORDERED: SOD CHLORIDE 0.9% 250 ML IV* ONE (14:01)
--- NOTE | 2018-09-23 14:13 | PN ---
Date/Time of Note Date/Time of Note DATE: 09/23/18 TIME: 14:01 Assessment/Plan VTE Prophylaxis Risk score (from Ns)>0 risk: 2 SCD applied (from [facility]): Yes Pharmacological prophylaxis: NA/contraindicated Pharm contraindication: bleeding Lines/Catheters IV [facility]ter [facility]from [facility] [place] Urinary Cath still in place: No Assessment/Plan Assessment/Plan 68-year-old female history COPD, PE May 2018, CKD, who presents with: #Abdominal pain - She has been having bloating, gas-like abdominal pain with diarrhea since admission. - Today abdomen is more tense and tender. - Will get abdominal CT with oral contrast. #Anemia - Hgb drop 12.5 to 7.0 over eight day hospital course. - Transfuse to Hgb>7 or for symptomatic anemia - Daily diarrhea and positive fecal occult blood - Consulted GI, may need colonoscopy or EGD # Hypoxic and hypercapnic respiratory failure: Resolved. - For now continue supplemental oxygen, bronchodilators, broad-spectrum antibiotics - PE in May 2018, currently holding Eliquis due to Hgb drop. # NSTEMI-First troponin 0.57. It was 0.407 in May of this year when she was diagnosed with PE, at that time she was diagnosed with a type II event. - Trops have now normalized. # Acute renal insufficiency: - Resolved Result Diagram: 09/23/18 0527 09/23/18526 Subjective 24 Hr Interval Summary Free Text/Dictation Last night and today the patient reports worsening abdominal bloating, nausea, and "spitting up". She had been having diarrhea for past several days, last episode was yesterday. She reports a history of constipation-type irritable bowel syndrome. She believes that this is just gas pain. Exam/Review of Systems Exam Vitals Vital Signs Date Temp Pulse Resp B/P (MAP) Pulse Ox O2 O2 Flow FiO2 Time Delivery Rate 09/23/18 98.7 88 15 117/74 92 13:34 (88) 09/23/18 Nasal 2.0 08:10 Cannula 09/19/18 21 20:46 Intake and Output 09/22/18 09/22/18 09/23/18 1515:00 23:00 07:00 IntakeIntake Total 750 ml 550 ml OutputOutput Total 1 ml BalanceBalance 750 ml 549 ml Exam Gen: Thin frail appearing woman lying in bed, awake and alert. Head: Atraumatic Eyes: Normal Conjunctiva ENT: Normal External Ears, Nose and Mouth. Neck: Full range of motion. No meningismus. Resp: Clear to auscultation bilaterally Cardio: Hyperdynamic precordium. Regular rate and rhythm, no murmurs Abd: Distended, soft, tympanic abdomen. Tender to palpation throughout. Absent bowel sounds. Ext: No bilateral lower extremity edema Results Results 24hrs Laboratory Tests Test 09/22/18 17:48 09/22/18 21:46 09/23/18 04:35 09/23/18 05:27 Bedside Glucose 188 151 Stool Occult Blood POSITIVE White Blood Count 21.1 H Red Blood Count 2.24 L Hemoglobin 7.0 L Hematocrit 21.1 L Mean Corpuscular 94.2 Volume Mean Corpuscular 31.3 Hemoglobin Mean Corpuscular 33.2 Hemoglobin Concent Red Cell 15.2 H Distribution Width Platelet Count 333 # Mean Platelet Volume 11.8 H Immature 0.900 H Granulocytes % Neutrophils % Segmented 64 Neutrophils % (Manual) Band Neutrophils % 30 H (Manual) Lymphocytes % Lymphocytes % 2 L (Manual) Monocytes % Monocytes % (Manual) 4 Eosinophils % Basophils % Nucleated Red Blood 0.1 H Cells % Immature 0.180 H Granulocytes # Neutrophils # Neutrophils # 14.8 H (Manual) Band Neutrophils # 6.3 H Lymphocytes (Manual) 0.4 L Lymphocytes # Monocytes # Monocytes # (Manual) 0.8 Eosinophils # Basophils # Nucleated Red Blood Cells # Toxic Granulation 1+ Platelet Estimate NORMAL Polychromasia 2+ Hypochromasia 1+ Anisocytosis 1+ Macrocytosis 1+ Sodium Level 133 L Potassium Level 3.9 Chloride Level 102 Carbon Dioxide Level 26 Anion Gap 5 Blood Urea Nitrogen 30 H Creatinine 0.72 Est Glomerular > 60 Filtrat Rate mL/min Glucose Level 118 Calcium Level 7.4 L Phosphorus Level 3.8 Magnesium Level 1.6 L Test 09/23/18 08:14 09/23/18 12:46 Bedside Glucose 97 104 Medications Medication Current Medications IV Flush (NS 3 ml) 3 ml PER PROTOCOL IV ; Start 09/15/18 at 07:30 Ondansetron HCl (Zofran Inj) 4 mg Q6H PRN IV NAUSEA/VOMITING Last administered on 09/19/18at 07:53; Admin Dose 4 MG; Start 09/15/18 at 07:30 Acetaminophen (Tylenol Tab) 650 mg Q6H PRN PO .PAIN 1-3 OR TEMP Last administered on 09/16/18 21:56; Admin Dose 650 MG; Start 09/15/18 at 07:30 Baclofen (Lioresal) 10 mg BID PO Last administered on 09/23/18 09:45; Admin Dose 10 MG; Start 09/15/18 at 09:00 Buspirone HCl (Buspar) 10 mg BID PO Last administered on 09/23/18 11:44; Admin Dose 10 MG; Start 09/15/18 at 09:00 Calcium Carbonate (Oyster Shell Calcium) 1.25 gm BID PO Last administered on 09/23/18 11:44; Admin Dose 1.25 GM; Start 09/15/18 at 09:00 Clonazepam (Klonopin) 0.5 mg DAILY PRN PO ANXIETY Last administered on 09/23/18 02:04; Admin Dose 0.5 MG; Start 09/15/18 at 07:30 Docusate Sodium (Colace) 100 mg BID PO Last administered on 09/23/18 09:43; Admin Dose 100 MG; Start 09/15/18 at 09:00 Rifaximin (Xifaxan) 550 mg BID PO Last administered on 09/22/18 21:42; Admin Dose 550 MG; Start 09/15/18 at 09:00 Sertraline HCl (Zoloft) 100 mg DAILY PO ; Start 09/15/18 at 09:00; Status Hold Fluticasone/ Vilanterol (Breo Ellipta 200-25 Mcg Inh) 1 inh DAILY INH Last administered on 09/23/18 11:39; Admin Dose 1 INH; Start 09/15/18 at 09:00 Albuterol/ Ipratropium (Duoneb) 3 ml Q3H RESP THERAPY PRN HHN WHEEZING AND SOB Last administered on 09/21/18 21:08; Admin Dose 3 ML; Start 09/15/18 at 08:00 Levalbuterol (Xopenex Neb) 0.63 mg Q4H RESP THERAPY HHN Last administered on 09/22/18 08:06; Admin Dose 0.63 MG; Start 09/15/18 at 17:00 Levalbuterol (Xopenex Neb) 0.63 mg Q2H RESP THERAPY PRN HHN WHEEZING AND SOB; Start 09/15/18 at 14:00 Collagenase (Santyl) 1 applic DAILY TOP Last administered on 09/23/18 09:50; Admin Dose 1 APPLIC; Start 09/16/18 at 15:00 Insulin Aspart (Novolog Insulin Pen) NOVOLOG *MILD* ALGORITHM WITH MEALS B EDTIME SC Last administered on 09/22/18 17:53; Admin Dose 2 UNIT; Start 09/17/18 at 11:30 Acetaminophen/ Hydrocodone Bitart ([place] (5/325)) 1 tab Q6H PRN PO MODERATE PAIN LEVEL 4-6 Last administered on 09/23/18 09:38; Admin Dose 1 TAB; Start 09/17/18 at 11:30 Methadone HCl (Methadone Liq) 15 mg Q8 PRN PO SEVERE PAIN Last administered on 09/23/18 07:26; Admin Dose 15 MG; Start 09/17/18 at 18:30 Apixaban (Eliquis) 5 mg BID PO Last administered on 09/23/18 09:45; Admin Dose 5 MG; Start 09/19/18 at 21:00 Multivitamins Therapeutic (Theragran) 1 tab DAILY PO Last administered on 09/23/18 09:43; Admin Dose 1 TAB; Start 09/19/18 at 12:00 Ascorbic Acid (Vitamin C) 500 mg DAILY PO Last administered on 09/23/18 09:45; Admin Dose 500 MG; Start 09/19/18 at 12:00 Zinc Sulfate (Zinc Sulfate) 220 mg DAILY PO Last administered on 09/22/18 08:50; Admin Dose 220 MG; Start 09/19/18 at 12:00 Thiamine HCl (Vitamin B1) 50 mg DAILY PO Last administered on 09/23/18 09:45; Admin Dose 50 MG; Start 09/19/18 at 12:00 Simethicone (Mylicon) 80 mg Q6H PRN PO DISTENSION/GAS/BLOATING Last administere d on 09/22/18 23:50; Admin Dose 80 MG; Start 09/20/18 at 06:30 Diltiazem HCl (Cardizem Cd) 120 mg DAILY PO Last administered on 09/23/18 11:41; Admin Dose 120 MG; Start 09/20/18 at 09:00 Famotidine (Pepcid) 20 mg DAILY PO Last administered on 09/23/18at 09:44; Admin Dose 20 MG; Start 09/21/18 at 09:00 Zolpidem Tartrate (Ambien) 5 mg HS PRN PO INSOMNIA Last administered on 09/23/18at 01:12; Admin Dose 5 MG; Start 09/21/18 at 02:00 Phenol (Cepastat Lozenge) 1 lozenge Q1H PRN MT SORE THROAT Last administered on 09/22/18at 03:32; Admin Dose 1 LOZENGE; Start 09/22/18 at 01:00 Levofloxacin (Levaquin) 500 mg DAILY@06 PO Last administered on 09/23/18at 07:21; Admin Dose 500 MG; Start 09/23/18 at 06:00 Metronidazole 100 ml @ 100 mls/hr Q8 IVPB ; Start 09/23/18 at 14:00 Prednisone (Prednisone) 40 mg DAILY PO ; Start 09/24/18 at 09:00; Stop 09/28/18 at 09:00 PRASHANT HILTON MD Sep 23, 2018 14:13
[2018-09-23] MEDS ORDERED: SOD CHLORIDE 0.9% 100 ML ONE (14:34)
[2018-09-23] MEDS ORDERED: IOHEXOL 300MG/ML 150 ML BTL ONE (14:34)
[2018-09-23] MEDS: metroNIDAZOLE 500 MG/NS (PMX) 100 ML IVPB SCH ×2 (16:07→22:03)
[2018-09-23] MEDS: DEXTROSE 5%-0.45% NACL 1,000 ML IV SCH (23:13)
[2018-09-24] MEDS: INSULIN ASPART [NOVOLOG] 3 ML PEN SC SCH ×6 (01:00→20:52)
[2018-09-24] MEDS: LEVALBUTEROL (NEB) 0.63 MG/3 ML AMP HHN SCH ×5 (01:00→21:00)
[2018-09-24 01:16] VITALS: BP 106/53; PULSE 108; RESP 16
[2018-09-24] MEDS: ZOLPIDEM 5 MG TAB PO PRN (01:16)
[2018-09-24] MEDS ORDERED: VANCOMYCIN IV PER PHARMACY XX SCH (02:30)
[2018-09-24] MEDS ORDERED: LORAZEPAM 2 MG INJ IV ONE (02:42)
--- NOTE | 2018-09-24 02:45 | EN ---
Date/Time of Note Date/Time of Note DATE: 09/24/18 TIME: 02:45 Event Note Medicine Medicine Event Note Critical Radiology Result Patient seen and examined at the bedside. I came to assess the patient after being notified by the nurse regarding the patient's critical radiology lab results. CT of the abdomen pelvis showed signs of perforated viscus. Small bowel obstruction as mentioned below. Patient did not appear to be in any acute distress but she did report abdominal pain. I did discuss the severity of the CT findings. I did speak about surgical intervention versus antibiotics. Patient does not wish to pursue surgical intervention. She is a DNR DNI. She understands that she has multiple medical issues that she does not want to undergo any surgical procedures. I did discuss initiating the patient on antibiotics and the insertion of an NG tube. She is agreeable to this. I will initiate her on Dilaudid for her pain. We will keep her n.p.o. She is currently on IV fluids will maintain this. I will hold oral medications at the current time. Will need to discuss with cardiology in the a.m regarding the patient's p.o. Cardizem. I did discuss the case with Dr. Naveed Schumacher with the general surgeon on-call. His recommendation was to go ahead with the NG tube and continue antibiotics. I also did discuss with the patient regarding further options if this disease process further worsens. I did bring up hospice/palliative care. Patient is understanding of this. She would like to discuss her findings with her son and her family in the a.m. CT abdomen pelvis findings: IMPRESSION: 1. Free intraperitoneal air is concerning for a perforated viscus. The majority of air is in the upper abdomen and the cause could be a perforated duodenal ulcer. Negative for extravasated oral contrast. Urgent surgical consultation is advised. 2. Distal small bowel obstruction with upstream dilatation of the small bowel and stomach. Recommend placing an enteric tube. There is abrupt kinking of the bowel at the transition point that may be due to an adhesion. 3. Inflammatory thickening of the wall of the terminal ileum and also of the distal colon extending from the distal transverse colon to the sigmoid colon. Differential diagnosis includes, but is not limited to, infection, inflammatory bowel disease or ischemia. 4. Atherosclerosis of the abdominal aorta that is small caliber. Iliac arteries are also small caliber. A call is in place to the patient's nurse by Ellyn on September 24, 2018 at 2:10 am GUZMAN. RPTAT: HCTS Trish Faith Physician Date Time Electronically viewed and signed by Trish Faith, Physician on 09/24/2018 02:35 CS/ Plan: - We will keep the patient n.p.o., will hold home oral medications - Insert NG tube to low wall suction, confirm placement with chest x-ray - broad-spectrum antibiotics of vancomycin and meropenem. - Surgical consultation with general surgery Dr. Schumacher - Continue IV fluid hydration, Pain management LEOBARDO DC Sep 24, 2018 02:45
[2018-09-24] MEDS: MEROPENEM 1 GM/50ML(PMX) 50 ML IVPB SCH ×3 (02:48→17:20)
[2018-09-24] MEDS ORDERED: VANCOMYCIN 1 GM 250 ML IVPB ONE (03:00)
[2018-09-24 07:37] VITALS: BP 105/55; PULSE 99; RESP 17
[2018-09-24] MEDS: LORAZEPAM 2 MG INJ IV PRN ×3 (08:59→20:51)
--- NOTE | 2018-09-24 10:38 | CONS ---
Consult Date/Type/Reason Admit Date/Time Sep 15, 2018 at 03:32 Initial Consult Date 09/15/18 Date/Time of Note DATE: 09/24/18 TIME: 10:33 Subjective 68-year-old female with the past medical history of COPD, history of previous PE, psychiatric disorder, chronic kidney disease, hepatitis C, liver disease who was brought in the ER after noticing dyspnea progressively worse and requires to be on BiPAP. On admission, the patient has been weaned down. On the course of the workup, was noted to have renal failure. She continues to have good urine output since she has been here. noted abd pain. ct showed intraperitoneal free air. initially refused further intervention. 1 unit of PRBC transfused, D5 1/2 NS @70 cc/hr started yesterday. PHYSICAL EXAMINATION: HEENT: Normocephalic, atraumatic. Pupils are equal, round, reactive to light. Oropharynx has moist mucous membranes. NECK: Supple. HEART: Regular rate and rhythm. LUNGS: Clear to auscultation. ABDOMEN: Soft, nontender, nondistended. Normal bowel sounds. no rebound or guarding. EXTREMITIES: No clubbing, cyanosis or edema. Objective Vitals Vital Signs Date Temp Pulse Resp B/P (MAP) Pulse Ox O2 O2 Flow FiO2 Time Delivery Rate 09/24/18 2.0 09:05 09/24/18 Nasal 09:00 Cannula 09/24/18 97.7 99 17 105/55 97 07:37 (72) Intake and Output 09/23/18 09/23/18 09/24/18 1515:00 23:00 07:00 IntakeIntake Total 50 ml 100 ml 750 ml OutputOutput Total 300 ml BalanceBalance 50 ml 100 ml 450 ml Results/Medications Result Diagram: 09/24/18 0544 09/24/18 0544 Results 24 hrs Laboratory Tests Test 09/23/18 12:46 09/23/18 17:29 09/23/18 20:36 09/24/18 00:48 Bedside Glucose 104 98 109 104 Test 09/24/18 03:19 09/24/18 05:34 09/24/18 05:44 09/24/18 08:02 White Blood Count 17.2 H 16.2 H Red Blood Count 3.00 #L 2.74 L Hemoglobin 9.2 #L 8.4 L Hematocrit 27.2 #L 24.9 L Mean Corpuscular 90.7 90.9 Volume Mean Corpuscular 30.7 30.7 Hemoglobin Mean Corpuscular 33.8 33.7 Hemoglobin Concent Red Cell 15.6 H 15.9 H Distribution Width Platelet Count 247 # 291 Mean Platelet Volume 12.0 H 11.2 H Immature 0.900 H 0.700 H Granulocytes % Neutrophils % Segmented 48 66 Neutrophils % (Manual) Band Neutrophils % 47 H 28 H (Manual) Lymphocytes % Lymphocytes % 2 L 3 L (Manual) Monocytes % Monocytes % (Manual) 3 2 Eosinophils % Basophils % Metamyelocytes % 1 H (manual) Nucleated Red Blood 0.1 H 0.2 H Cells % Immature 0.160 H 0.120 H Granulocytes # Neutrophils # Neutrophils # 9.6 H 11.4 H (Manual) Band Neutrophils # 8.0 H 4.5 H Lymphocytes (Manual) 0.3 L 0.4 L Lymphocytes # Monocytes # Monocytes # (Manual) 0.5 0.3 Eosinophils # Basophils # Metamyelocytes # 0.1 H Nucleated Red Blood Cells # Toxic Granulation 1+ Platelet Estimate NORMAL NORMAL Giant Platelets 1 H 1 H Polychromasia 2+ 2+ Poikilocytosis 1+ 2+ Anisocytosis 2+ 2+ Macrocytosis 1+ Spherocytes 1+ Sodium Level 132 L 133 L Potassium Level 4.2 3.8 Chloride Level 97 99 Carbon Dioxide Level 26 28 Anion Gap 9 6 Blood Urea Nitrogen 28 H 26 H Creatinine 0.79 0.88 Est Glomerular > 60 > 60 Filtrat Rate mL/min Glucose Level 114 109 Calcium Level 7.7 L 7.4 L Total Bilirubin 0.6 Direct Bilirubin 0.00 Indirect Bilirubin 0.6 Aspartate Amino 34 Transf (AST/SGOT) Alanine 78 H Aminotransferase (AL T/SGPT) Alkaline Phosphatase 52 Total Protein 4.9 L Albumin 2.3 L Globulin 2.60 Albumin/Globulin 0.88 Ratio Bedside Glucose 107 105 Myelocytes % 1 H (Manual) Myelocytes # 0.1 H Ovalocytes 1+ Prothrombin Time 22.7 #H Prothrombin Time 1.8 Ratio INR International 1.99 Normalized Ratio Activated 35.4 H Partial Thromboplast Time Phosphorus Level 4.1 Magnesium Level 2.1 Home Meds Active Scripts Pantoprazole* (Pantoprazole*) 40 Mg Tablet.dr, 40 MG PO DAILY@06 for 14 Days, #14 Prov:RICKIE DALTON MD 06/12/18 Apixaban* (Eliquis*) 5 Mg Tablet, 10 MG PO BID for 30 Days, #60 TAB 10 mg twice daily for 5 days, then 5 mg twice daily Prov:RICKIE DALTON MD 06/12/18 Methadone Hcl* (Methadone*) 5 Mg/5 Ml Solution, 68 MG PO DAILY for 30 Days, ML Prov:STU ORTEZ. 04/14/18 Salmeterol Xinaf/Fluticasone* (Advair*) 250-50 Diskus Inhaler, 1 INH INHALATION BID for 30 Days, #1 INHALER Prov:ZHANG WARE NP 02/28/16 Albuterol Sulfate* (Proair HFA*) 8.5 Gm Hfa.aer.ad, 2 PUFF INH Q6 for SHORTNESS OF BREATH for 14 Days, #1 INHALER Prov:ZHANG WARE NP 02/28/16 Reported Medications Sertraline Hcl* (Sertraline Hcl*) 25 Mg Tablet, 25 MG PO DAILY, #30 TAB 09/15/18 Buspirone Hcl* (Buspirone Hcl*) 10 Mg Tab, 10 MG PO BID, TAB 09/15/18 Clonazepam* (Clonazepam*) 0.5 Mg Tablet, 0.5 MG PO DAILY PRN for ANXIETY, TAB 09/15/18 Ipratropium-Albuterol (Ipratropium-Albuterol) 0.5-3 Mg/3 Ml Ampul.neb, 3 ML INHALATION Q6 PRN for WHEEZING AND SOB, #30 VIAL 09/15/18 Carvedilol* (Carvedilol*) 6.25 Mg Tablet, 6.25 MG PO BID, #60 TAB 09/15/18 Cholecalciferol (Vitamin D3) (VITAMIN D-3) 2,000 Unit Capsule, 2000 U PO DAILY for 30 Days 04/30/18 Amlodipine Besylate* (Amlodipine Besylate*) 5 Mg Tablet, 5 MG PO DAILY for 30 Days, #30 04/30/18 Baclofen* (Baclofen*) 10 Mg Tablet, 10 MG PO BID 04/30/18 Calcium Carbonate ([id number]) 500 Mg Tablet, 500 MG PO BID, TAB 04/30/18 Medications Current Medications IV Flush (NS 3 ml) 3 ml PER PROTOCOL IV ; Start 09/15/18 at 07:30 Ondansetron HCl (Zofran Inj) 4 mg Q6H PRN IV NAUSEA/VOMITING Last administered on 09/19/18 07:53; Admin Dose 4 MG; Start 09/15/18 at 07:30 Acetaminophen (Tylenol Tab) 650 mg Q6H PRN PO .PAIN 1-3 OR TEMP Last administered on 09/16/18 21:56; Admin Dose 650 MG; Start 09/15/18 at 07:30 Baclofen (Lioresal) 10 mg BID PO Last administered on 09/23/18 09:45; Admin Dose 10 MG; Start 09/15/18 at 09:00; Status Hold Buspirone HCl (Buspar) 10 mg BID PO Last administered on 09/23/18 11:44; Admin Dose 10 MG; Start 09/15/18 at 09:00; Status Hold Calcium Carbonate (Oyster Shell Calcium) 1.25 gm BID PO Last administered on 09/23/18 11:44; Admin Dose 1.25 GM; Start 09/15/18 at 09:00; Status Hold Clonazepam (Klonopin) 0.5 mg DAILY PRN PO ANXIETY Last administered on 09/23/18 02:04; Admin Dose 0.5 MG; Start 09/15/18 at 07:30; Status Hold Docusate Sodium (Colace) 100 mg BID PO Last administered on 09/23/18 09:43; Admin Dose 100 MG; Start 09/15/18 at 09:00; Status Hold Rifaximin (Xifaxan) 550 mg BID PO Last administered on 09/22/18 21:42; Admin Dose 550 MG; Start 09/15/18 at 09:00; Status Hold Sertraline HCl (Zoloft) 100 mg DAILY PO ; Start 09/15/18 at 09:00; Status Hold Fluticasone/ Vilanterol (Breo Ellipta 200-25 Mcg Inh) 1 inh DAILY INH Last administered on 09/23/18 11:39; Admin Dose 1 INH; Start 09/15/18 at 09:00 Albuterol/ Ipratropium (Duoneb) 3 ml Q3H RESP THERAPY PRN HHN WHEEZING AND SOB Last administered on 09/21/18 21:08; Admin Dose 3 ML; Start 09/15/18 at 08:00 Levalbuterol (Xopenex Neb) 0.63 mg Q4H RESP THERAPY HHN Last administered on 09/22/18 08:06; Admin Dose 0.63 MG; Start 09/15/18 at 17:00 Levalbuterol (Xopenex Neb) 0.63 mg Q2H RESP THERAPY PRN HHN WHEEZING AND SOB; Start 09/15/18 at 14:00 Collagenase (Santyl) 1 applic DAILY TOP Last administered on 09/23/18 09:50; Admin Dose 1 APPLIC; Start 09/16/18 at 15:00 Acetaminophen/ Hydrocodone Bitart ([place] (5/325)) 1 tab Q6H PRN PO MODERATE PAIN LEVEL 4-6 Last administered on 09/23/18 09:38; Admin Dose 1 TAB; Start 09/17/18 at 11:30 Methadone HCl (Methadone Liq) 15 mg Q8 PRN PO SEVERE PAIN Last administered on 09/23/18 23:21; Admin Dose 15 MG; Start 09/17/18 at 18:30 Apixaban (Eliquis) 5 mg BID PO Last administered on 09/23/18 09:45; Admin Dose 5 MG; Start 09/19/18 at 21:00; Status Hold Multivitamins Therapeutic (Theragran) 1 tab DAILY PO Last administered on 09/23/18 09:43; Admin Dose 1 TAB; Start 09/19/18 at 12:00 Ascorbic Acid (Vitamin C) 500 mg DAILY PO Last administered on 09/23/18 09:45; Admin Dose 500 MG; Start 09/19/18 at 12:00; Status Hold Zinc Sulfate (Zinc Sulfate) 220 mg DAILY PO Last administered on 09/22/18 08:50; Admin Dose 220 MG; Start 09/19/18 at 12:00; Status Hold Thiamine HCl (Vitamin B1) 50 mg DAILY PO Last administered on 09/23/18 09:45; Admin Dose 50 MG; Start 09/19/18 at 12:00; Status Hold Simethicone (Mylicon) 80 mg Q6H PRN PO DISTENSION/GAS/BLOATING Last administered on 09/22/18 23:50; Admin Dose 80 MG; Start 09/20/18 at 06:30 Diltiazem HCl (Cardizem Cd) 120 mg DAILY PO Last administered on 09/23/18 11:41; Admin Dose 120 MG; Start 09/20/18 at 09:00; Status Hold Famotidine (Pepcid) 20 mg DAILY PO Last administered on 09/23/18 09:44; Admin Dose 20 MG; Start 09/21/18 at 09:00; Status Hold Zolpidem Tartrate (Ambien) 5 mg HS PRN PO INSOMNIA Last administered on 09/24/18 01:16; Admin Dose 5 MG; Start 09/21/18 at 02:00; Status Hold Phenol (Cepastat Lozenge) 1 lozenge Q1H PRN MT SORE THROAT Last administered on 09/22/18 03:32; Admin Dose 1 LOZENGE; Start 09/22/18 at 01:00 Levofloxacin (Levaquin) 500 mg DAILY@06 PO Last administered on 09/23/18 07:21; Admin Dose 500 MG; Start 09/23/18 at 06:00; Status Hold Metronidazole 100 ml @ 100 mls/hr Q8 IVPB Last administered on 09/23/18 22:03; Admin Dose 100 MLS/HR; Start 09/23/18 at 14:00; Status Hold Prednisone (Prednisone) 40 mg DAILY PO ; Start 09/24/18 at 09:00; Stop 09/28/18 at 09:00 Dextrose/Sodium Chloride 1,000 ml @ 70 mls/hr [id number] IV Last administered on 09/23/18at 23:13; Admin Dose 70 MLS/HR; Start 09/23/18 at 22:30 Insulin Aspart (Novolog Insulin Pen) NOVOLOG *MILD* ALGORI... Q4 SC ; Start 09/24/18 at 01:00 Vancomycin HCl (Vanco Iv Per Pharmacy) VANCOMYCIN PER PHARMACY PER PROTOCOL XX ; Start 09/24/18 at 02:30 Meropenem/Sodium Chloride 50 ml @ 100 mls/hr Q8H IVPB Last administered on 09/24/18at 02:48; Admin Dose 100 MLS/HR; Start 09/24/18 at 02:30 Vancomycin HCl 100 ml @ 100 mls/hr Q24H IVPB ; Start 09/25/18 at 03:00 Hydromorphone HCl (Dilaudid) 0.5 mg Q4H PRN IV SEVERE PAIN LEVEL 7-10; Start 09/24/18 at 03:00 Lorazepam (Ativan) 0.5 mg Q6H PRN IV ANXIETY Last administered on 09/24/18at 08:59; Admin Dose 0.5 MG; Start 09/24/18 at 03:00 Miscellaneous Information (*Rx Drug Level Order Reminder*) VANCOMYCIN TROUGH LEVEL 0200 ONCE XX ; Start 09/27/18 at 02:00; Stop 09/27/18 at 02:01 Assessment/Plan Hospital Course (Demo Recall) 1. Acute renal insufficiency, possibly vasomotor nephropathy, rule out acute tubular necrosis - stabilized and improving at good interval. restarted ivf - All medications are dosed appropriately for renal function. - watch for diuretic phase of russ with electorlyte wasting. 2. Acute respiratory failure, likely related to chronic obstructive pulmonary disease exacerbation. bronchodilators, pulmonary followup. 3. Non-ST myocardial infarction, likely demand ischemia type 2. Cardiology is following. Medication optimized. 4. Sepsis, unknown source, possibly evolving pneumonia although impressed by the chest x-ray. Continue to monitor. sudden surge in WBC although patient on steroids. 5. Elevated transaminases with the history of hepatitis C. 6. Hyponatremia, likely related to total body water deficit. corrected wth iv. now trending again. 7. anemia- downtrending. further decreased. fu stool ob. on famotidine. concern over duodenal ulcer. sp prbc 8. abd pain- ct suggested perf viscus. surg consulted. ng to LIS. started IVF. G&V discussion. CHELSIE RAMÍREZ MD Sep 24, 2018 10:38
[2018-09-24] MEDS: predniSONE 20 MG TAB PO SCH (10:40)
[2018-09-24] MEDS: MULTIVITAMINS THERAPEUTIC TAB PO SCH (10:40)
[2018-09-24] MEDS: FLUTICASONE/VILANTEROL 200-25 INH DEVICE INH SCH (10:40)
[2018-09-24 11:07] VITALS: BP 109/51; PULSE 102; RESP 20
--- NOTE | 2018-09-24 11:41 | PN ---
Date/Time of Note Date/Time of Note DATE: 09/24/18 TIME: 11:39 Assessment/Plan VTE Prophylaxis Risk [place] [facility] [place] risk: 2 SCD applied (from [facility] [place] Yes Pharmacological prophylaxis: NA/contraindicated Pharm contraindication: other Lines/Catheters IV C[facility]ter Type (from [facility] Peripheral IV Urinary Cath still in place: No Assessment/Plan Hospital Course 68-year-old female history COPD, PE May 2018, CKD, who presents with: #Perforated viscus likely secondary to duodenal ulcer CT does show perforated viscus, patient has refused surgical intervention #Abdominal pain -CT abdomen shows small bowel obstruction and perforated viscus -NG tube has been placed -Patient refusing surgery - She has been having bloating, gas-like abdominal pain with diarrhea since admission. #Anemia - Hgb drop 12.5 to 7.0 over eight day hospital course. - Daily diarrhea and positive fecal occult blood - Consulted GI, may need colonoscopy or EGD # Hypoxic and hypercapnic respiratory failure: Resolved. - For now continue supplemental oxygen, bronchodilators, broad-spectrum antibiotics - PE in May 2018, currently holding Eliquis due to Hgb drop. # NSTEMI-First troponin 0.57. It was 0.407 in May of this year when she was diagnosed with PE, at that time she was diagnosed with a type II event. - Trops have now normalized. # Acute renal insufficiency: - Resolved Prophylaxis: SCDs Result Diagram: 09/24/18 0544 09/24/18 0544 Results 24hrs Laboratory Tests Test 09/23/18 12:46 09/23/18 17:29 09/23/18 20:36 09/24/18 00:48 Bedside Glucose 104 98 109 104 Test 09/24/18 03:19 09/24/18 05:34 09/24/18 05:44 09/24/18 08:02 White Blood Count 17.2 H 16.2 H Red Blood Count 3.00 #L 2.74 L Hemoglobin 9.2 #L 8.4 L Hematocrit 27.2 #L 24.9 L Mean Corpuscular 90.7 90.9 Volume Mean Corpuscular 30.7 30.7 Hemoglobin Mean Corpuscular 33.8 33.7 Hemoglobin Concent Red Cell 15.6 H 15.9 H Distribution Width Platelet Count 247 # 291 Mean Platelet Volume 12.0 H 11.2 H Immature 0.900 H 0.700 H Granulocytes % Neutrophils % Segmented 48 66 Neutrophils % (Manual) Band Neutrophils % 47 H 28 H (Manual) Lymphocytes % Lymphocytes % 2 L 3 L (Manual) Monocytes % Monocytes % (Manual) 3 2 Eosinophils % Basophils % Metamyelocytes % 1 H (manual) Nucleated Red Blood 0.1 H 0.2 H Cells % Immature 0.160 H 0.120 H Granulocytes # Neutrophils # Neutrophils # 9.6 H 11.4 H (Manual) Band Neutrophils # 8.0 H 4.5 H Lymphocytes (Manual) 0.3 L 0.4 L Lymphocytes # Monocytes # Monocytes # (Manual) 0.5 0.3 Eosinophils # Basophils # Metamyelocytes # 0.1 H Nucleated Red Blood Cells # Toxic Granulation 1+ Platelet Estimate NORMAL NORMAL Giant Platelets 1 H 1 H Polychromasia 2+ 2+ Poikilocytosis 1+ 2+ Anisocytosis 2+ 2+ Macrocytosis 1+ Spherocytes 1+ Sodium Level 132 L 133 L Potassium Level 4.2 3.8 Chloride Level 97 99 Carbon Dioxide Level 26 28 Anion Gap 9 6 Blood Urea Nitrogen 28 H 26 H Creatinine 0.79 0.88 Est Glomerular > 60 > 60 Filtrat Rate mL/min Glucose Level 114 109 Calcium Level 7.7 L 7.4 L Total Bilirubin 0.6 Direct Bilirubin 0.00 Indirect Bilirubin 0.6 Aspartate Amino 34 Transf (AST/SGOT) Alanine 78 H Aminotransferase (AL T/SGPT) Alkaline Phosphatase 52 Total Protein 4.9 L Albumin 2.3 L Globulin 2.60 Albumin/Globulin 0.88 Ratio Bedside Glucose 107 105 Myelocytes % 1 H (Manual) Myelocytes # 0.1 H Ovalocytes 1+ Prothrombin Time 22.7 #H Prothrombin Time 1.8 Ratio INR International 1.99 Normalized Ratio Activated 35.4 H Partial Thromboplast Time Phosphorus Level 4.1 Magnesium Level 2.1 Subjective 24 Hr Interval Summary Gastrointestinal: pain Exam/Review of Systems Exam Vitals Vital Signs Date Temp Pulse Resp B/P (MAP) Pulse Ox O2 O2 Flow FiO2 Time Delivery Rate 09/24/18 98.0 102 20 109/51 94 Room Air 11:07 (70) 09/24/18 2.0 09:05 Intake and Output 09/23/18 09/23/18 09/24/18 1515:00 23:00 07:00 IntakeIntake Total 50 ml 100 ml 750 ml OutputOutput Total 300 ml BalanceBalance 50 ml 100 ml 450 ml Constitutional: alert, oriented Respiratory: clear to auscultation Cardiovascular: regular rate and rhythm Gastrointestinal: soft; No distended Musculoskeletal: nl extremities to inspection Results Results 24hrs Laboratory Tests Test 09/23/18 12:46 09/23/18 17:29 09/23/18 20:36 09/24/18 00:48 Bedside Glucose 104 98 109 104 Test 09/24/18 03:19 09/24/18 05:34 09/24/18 05:44 09/24/18 08:02 White Blood Count 17.2 H 16.2 H Red Blood Count 3.00 #L 2.74 L Hemoglobin 9.2 #L 8.4 L Hematocrit 27.2 #L 24.9 L Mean Corpuscular 90.7 90.9 Volume Mean Corpuscular 30.7 30.7 Hemoglobin Mean Corpuscular 33.8 33.7 Hemoglobin Concent Red Cell 15.6 H 15.9 H Distribution Width Platelet Count 247 # 291 Mean Platelet Volume 12.0 H 11.2 H Immature 0.900 H 0.700 H Granulocytes % Neutrophils % Segmented 48 66 Neutrophils % (Manual) Band Neutrophils % 47 H 28 H (Manual) Lymphocytes % Lymphocytes % 2 L 3 L (Manual) Monocytes % Monocytes % (Manual) 3 2 Eosinophils % Basophils % Metamyelocytes % 1 H (manual) Nucleated Red Blood 0.1 H 0.2 H Cells % Immature 0.160 H 0.120 H Granulocytes # Neutrophils # Neutrophils # 9.6 H 11.4 H (Manual) Band Neutrophils # 8.0 H 4.5 H Lymphocytes (Manual) 0.3 L 0.4 L Lymphocytes # Monocytes # Monocytes # (Manual) 0.5 0.3 Eosinophils # Basophils # Metamyelocytes # 0.1 H Nucleated Red Blood Cells # Toxic Granulation 1+ Platelet Estimate NORMAL NORMAL Giant Platelets 1 H 1 H Polychromasia 2+ 2+ Poikilocytosis 1+ 2+ Anisocytosis 2+ 2+ Macrocytosis 1+ Spherocytes 1+ Sodium Level 132 L 133 L Potassium Level 4.2 3.8 Chloride Level 97 99 Carbon Dioxide Level 26 28 Anion Gap 9 6 Blood Urea Nitrogen 28 H 26 H Creatinine 0.79 0.88 Est Glomerular > 60 > 60 Filtrat Rate mL/min Glucose Level 114 109 Calcium Level 7.7 L 7.4 L Total Bilirubin 0.6 Direct Bilirubin 0.00 Indirect Bilirubin 0.6 Aspartate Amino 34 Transf (AST/SGOT) Alanine 78 H Aminotransferase (AL T/SGPT) Alkaline Phosphatase 52 Total Protein 4.9 L Albumin 2.3 L Globulin 2.60 Albumin/Globulin 0.88 Ratio Bedside Glucose 107 105 Myelocytes % 1 H (Manual) Myelocytes # 0.1 H Ovalocytes 1+ Prothrombin Time 22.7 #H Prothrombin Time 1.8 Ratio INR International 1.99 Normalized Ratio Activated 35.4 H Partial Thromboplast Time Phosphorus Level 4.1 Magnesium Level 2.1 Medications Medication Current Medications IV Flush (NS 3 ml) 3 ml PER PROTOCOL IV ; Start 09/15/18 at 07:30 Ondansetron HCl (Zofran Inj) 4 mg Q6H PRN IV NAUSEA/VOMITING Last administered on 09/19/18 07:53; Admin Dose 4 MG; Start 09/15/18 at 07:30 Acetaminophen (Tylenol Tab) 650 mg Q6H PRN PO .PAIN 1-3 OR TEMP Last administered on 09/16/18 21:56; Admin Dose 650 MG; Start 09/15/18 at 07:30 Baclofen (Lioresal) 10 mg BID PO Last administered on 09/23/18 09:45; Admin Dose 10 MG; Start 09/15/18 at 09:00; Status Hold Buspirone HCl (Buspar) 10 mg BID PO Last administered on 09/23/18 11:44; Admin Dose 10 MG; Start 09/15/18 at 09:00; Status Hold Calcium Carbonate (Oyster Shell Calcium) 1.25 gm BID PO Last administered on 09/23/18 11:44; Admin Dose 1.25 GM; Start 09/15/18 at 09:00; Status Hold Clonazepam (Klonopin) 0.5 mg DAILY PRN PO ANXIETY Last administered on 09/23/18 02:04; Admin Dose 0.5 MG; Start 09/15/18 at 07:30; Status Hold Docusate Sodium (Colace) 100 mg BID PO Last administered on 09/23/18 09:43; Admin Dose 100 MG; Start 09/15/18 at 09:00; Status Hold Rifaximin (Xifaxan) 550 mg BID PO Last administered on 09/22/18 21:42; Admin Dose 550 MG; Start 09/15/18 at 09:00; Status Hold Sertraline HCl (Zoloft) 100 mg DAILY PO ; Start 09/15/18 at 09:00; Status Hold Fluticasone/ Vilanterol (Breo Ellipta 200-25 Mcg Inh) 1 inh DAILY INH Last administered on 09/23/18 11:39; Admin Dose 1 INH; Start 09/15/18 at 09:00 Albuterol/ Ipratropium (Duoneb) 3 ml Q3H RESP THERAPY PRN HHN WHEEZING AND SOB Last administered on 09/21/18 21:08; Admin Dose 3 ML; Start 09/15/18 at 08:00 Levalbuterol (Xopenex Neb) 0.63 mg Q4H RESP THERAPY HHN Last administered on 09/22/18 08:06; Admin Dose 0.63 MG; Start 09/15/18 at 17:00 Levalbuterol (Xopenex Neb) 0.63 mg Q2H RESP THERAPY PRN HHN WHEEZING AND SOB; Start 09/15/18 at 14:00 Collagenase (Santyl) 1 applic DAILY TOP Last administered on 09/23/18 09:50; Admin Dose 1 APPLIC; Start 09/16/18 at 15:00 Acetaminophen/ Hydrocodone Bitart ([place] (5/325)) 1 tab Q6H PRN PO MODERATE PAIN LEVEL 4-6 Last administered on 09/23/18 09:38; Admin Dose 1 TAB; Start 09/17/18 at 11:30 Methadone HCl (Methadone Liq) 15 mg Q8 PRN PO SEVERE PAIN Last administered on 09/23/18 23:21; Admin Dose 15 MG; Start 09/17/18 at 18:30 Apixaban (Eliquis) 5 mg BID PO Last administered on 09/23/18 09:45; Admin Dose 5 MG; Start 09/19/18 at 21:00; Status Hold Multivitamins Therapeutic (Theragran) 1 tab DAILY PO Last administered on 09/23/18 09:43; Admin Dose 1 TAB; Start 09/19/18 at 12:00 Ascorbic Acid (Vitamin C) 500 mg DAILY PO Last administered on 09/23/18 09:45; Admin Dose 500 MG; Start 09/19/18 at 12:00; Status Hold Zinc Sulfate (Zinc Sulfate) 220 mg DAILY PO Last administered on 09/22/18 08:50; Admin Dose 220 MG; Start 09/19/18 at 12:00; Status Hold Thiamine HCl (Vitamin B1) 50 mg DAILY PO Last administered on 09/23/18 09:45; Admin Dose 50 MG; Start 09/19/18 at 12:00; Status Hold Simethicone (Mylicon) 80 mg Q6H PRN PO DISTENSION/GAS/BLOATING Last administered on 09/22/18 23:50; Admin Dose 80 MG; Start 09/20/18 at 06:30 Diltiazem HCl (Cardizem Cd) 120 mg DAILY PO Last administered on 09/23/18 11:41; Admin Dose 120 MG; Start 09/20/18 at 09:00; Status Hold Famotidine (Pepcid) 20 mg DAILY PO Last administered on 09/23/18 09:44; Admin Dose 20 MG; Start 09/21/18 at 09:00; Status Hold Zolpidem Tartrate (Ambien) 5 mg HS PRN PO INSOMNIA Last administered on 09/24/18 01:16; Admin Dose 5 MG; Start 09/21/18 at 02:00; Status Hold Phenol (Cepastat Lozenge) 1 lozenge Q1H PRN MT SORE THROAT Last administered on 09/22/18 03:32; Admin Dose 1 LOZENGE; Start 09/22/18 at 01:00 Levofloxacin (Levaquin) 500 mg DAILY@06 PO Last administered on 09/23/18 07:21; Admin Dose 500 MG; Start 09/23/18 at 06:00; Status Hold Metronidazole 100 ml @ 100 mls/hr Q8 IVPB Last administered on 09/23/18 22:03; Admin Dose 100 MLS/HR; Start 09/23/18 at 14:00; Status Hold Prednisone (Prednisone) 40 mg DAILY PO ; Start 09/24/18 at 09:00; Stop 09/28/18 at 09:00 Dextrose/Sodium Chloride 1,000 ml @ 70 mls/hr [id number] IV Last administered on 09/23/18 23:13; Admin Dose 70 MLS/HR; Start 09/23/18 at 22:30 Insulin Aspart (Novolog Insulin Pen) NOVOLOG *MILD* ALGORI... Q4 SC ; Start 09/24/18 at 01:00 Vancomycin HCl (Vanco Iv Per Pharmacy) VANCOMYCIN PER PHARMACY PER PROTOCOL XX ; Start 09/24/18 at 02:30 Meropenem/Sodium Chloride 50 ml @ 100 mls/hr Q8H IVPB Last administered on 09/24/18at 02:48; Admin Dose 100 MLS/HR; Start 09/24/18 at 02:30 Vancomycin HCl 100 ml @ 100 mls/hr Q24H IVPB ; Start 09/25/18 at 03:00 Hydromorphone HCl (Dilaudid) 0.5 mg Q4H PRN IV SEVERE PAIN LEVEL 7-10; Start 09/24/18 at 03:00 Lorazepam (Ativan) 0.5 mg Q6H PRN IV ANXIETY Last administered on 09/24/18at 08:59; Admin Dose 0.5 MG; Start 09/24/18 at 03:00 Miscellaneous Information (*Rx Drug Level Order Reminder*) VANCOMYCIN TROUGH LEVEL 0200 ONCE XX ; Start 09/27/18 at 02:00; Stop 09/27/18 at 02:01 DENZEL HOFFMANN Sep 24, 2018 11:41
[2018-09-24] MEDS: DEXTROSE 5%-0.45% NACL 1,000 ML IV SCH (12:04)
[2018-09-24] MEDS: BALSAM PERU/CASTOR OIL 60 GM TUBE TOP SCH ×2 (12:04→20:53)
[2018-09-24] MEDS: COLLAGENASE 5 GM (UD JAR) TOP SCH (12:04)
--- NOTE | 2018-09-24 14:32 | CONS ---
Assessment/Plan Assessment/Plan Assessment/Plan (Daily) Assessment: Perforated viscus with free air on CT scan, likely perforated duodenal ulcer. Colitis on CT scan Positive FOBT, possibly secondary to GI bleeding Anemia COPD CKD Hx of PE Plan: Discussed with the patient the need for upper endoscopy EGD and colonoscopy in the future. The benefits, risks, alternatives were discussed with the patient and she is agreeable to proceed after extensive discussion. However given concern for self sealing ulcer we will hold off for now. I also tried to reach her son to discuss her condition, however was unable to reach him at any of the number provided, or the number that the patient had provided. Discussed the need for surgery, however patient declines surgery at this time because she "is scared". Start protonix BID Strict NPO NG tube to suction Continue IV fluids, may need to consider TPN Monitor H/H and transfuse for hgb less 7.5 Patient seen in collaboration with Dr. Campos. CC: JONELLE CAMPOS MD ; Consultation Date/Type/Reason Admit Date/Time Sep 15, 2018 at 03:32 Date of Consultation: Sep 24, 2018 Type of Consult gastroenterology Reason for Consultation anemia, colitis on CT, perforated duodenal ulcer Requesting Provider: DENZEL HOFFMANN Date/Time of Note DATE: 09/24/18 TIME: 13:45 Hx of Present Illness Ms. Hernandez is a 68 y/o woman with a history of COPD, CKD, PE in May 2018 who was initially admitted with COPD exacerbation. She complained of abdominal pain for the past several days and had a CT abdomen pelvis yesterday which showed free air in the upper abdomen concerning for a perforated viscus possibly a perforated duodenal ulcer. She also had bowel obstruction and colitis on CT. Additionally she had a drop in Hgb from 12 to 8 over admission and was found to have positive FOBT. She complained of diarrhea as well. She has an NG tube to suction and reports the abdominal pain is improved. She denies ever having an EGD or colonoscopy before. She denies any prior surgeries. She denies shortness of breath chest pain or palpitations. A 10 point review of systems is otherwise negative except as mentioned in the above HPI. ENT: no complaints Gastrointestinal: pain, diarrhea Past Medical History Home Meds Active Scripts Pantoprazole* (Pantoprazole*) 40 Mg Tablet., 40 MG PO DAILY@06 for 14 Days, #14 Prov:RICKIE DALTON MD 06/12/18 Apixaban* (Eliquis*) 5 Mg Tablet, 10 MG PO BID for 30 Days, #60 TAB 10 mg twice daily for 5 days, then 5 mg twice daily Prov:RICKIE DALTON MD 06/12/18 Methadone Hcl* (Methadone*) 5 Mg/5 Ml Solution, 68 MG PO DAILY for 30 Days, ML Prov:STU ORTEZ. 04/14/18 Salmeterol Xinaf/Fluticasone* (Advair*) 250-50 Diskus Inhaler, 1 INH INHALATION BID for 30 Days, #1 INHALER Prov:ZHANG WARE NP 02/28/16 Albuterol Sulfate* (Proair HFA*) 8.5 Gm Hfa.aer.ad, 2 PUFF INH Q6 for SHORTNESS OF BREATH for 14 Days, #1 INHALER Prov:ZHANG WARE CAN CUTTER 02/28/16 Reported Medications Sertraline Hcl* (Sertraline Hcl*) 25 Mg Tablet, 25 MG PO DAILY, #30 TAB 09/15/18 Buspirone Hcl* (Buspirone Hcl*) 10 Mg Tab, 10 MG PO BID, TAB 09/15/18 Clonazepam* (Clonazepam*) 0.5 Mg Tablet, 0.5 MG PO DAILY PRN for ANXIETY, TAB 09/15/18 Ipratropium-Albuterol (Ipratropium-Albuterol) 0.5-3 Mg/3 Ml Ampul.neb, 3 ML INHALATION Q6 PRN for WHEEZING AND SOB, #30 VIAL 09/15/18 Carvedilol* (Carvedilol*) 6.25 Mg Tablet, 6.25 MG PO BID, #60 TAB 09/15/18 Cholecalciferol (Vitamin D3) (VITAMIN D-3) 2,000 Unit Capsule, 2000 U PO DAILY for 30 Days 04/30/18 Amlodipine Besylate* (Amlodipine Besylate*) 5 Mg Tablet, 5 MG PO DAILY for 30 Days, #30 04/30/18 Baclofen* (Baclofen*) 10 Mg Tablet, 10 MG PO BID 04/30/18 Calcium Carbonate ([id number]) 500 Mg Tablet, 500 MG PO BID, TAB 04/30/18 Medications Current Medications IV Flush (NS 3 ml) 3 ml PER PROTOCOL IV ; Start 09/15/18 at 07:30 Ondansetron HCl (Zofran Inj) 4 mg Q6H PRN IV NAUSEA/VOMITING Last administered on 09/19/18 07:53; Admin Dose 4 MG; Start 09/15/18 at 07:30 Acetaminophen (Tylenol Tab) 650 mg Q6H PRN PO .PAIN 1-3 OR TEMP Last administered on 09/16/18 21:56; Admin Dose 650 MG; Start 09/15/18 at 07:30 Baclofen (Lioresal) 10 mg BID PO Last administered on 09/23/18 09:45; Admin Dose 10 MG; Start 09/15/18 at 09:00; Status Hold Buspirone HCl (Buspar) 10 mg BID PO Last administered on 09/23/18 11:44; Admin Dose 10 MG; Start 09/15/18 at 09:00; Status Hold Calcium Carbonate (Oyster Shell Calcium) 1.25 gm BID PO Last administered on 09/23/18 11:44; Admin Dose 1.25 GM; Start 09/15/18 at 09:00; Status Hold Clonazepam (Klonopin) 0.5 mg DAILY PRN PO ANXIETY Last administered on 09/23/18 02:04; Admin Dose 0.5 MG; Start 09/15/18 at 07:30; Status Hold Docusate Sodium (Colace) 100 mg BID PO Last administered on 09/23/18 09:43; Admin Dose 100 MG; Start 09/15/18 at 09:00; Status Hold Rifaximin (Xifaxan) 550 mg BID PO Last administered on 09/22/18 21:42; Admin Dose 550 MG; Start 09/15/18 at 09:00; Status Hold Sertraline HCl (Zoloft) 100 mg DAILY PO ; Start 09/15/18 at 09:00; Status Hold Fluticasone/ Vilanterol (Breo Ellipta 200-25 Mcg Inh) 1 inh DAILY INH Last administered on 09/23/18 11:39; Admin Dose 1 INH; Start 09/15/18 at 09:00 Albuterol/ Ipratropium (Duoneb) 3 ml Q3H RESP THERAPY PRN HHN WHEEZING AND SOB Last administered on 09/21/18 21:08; Admin Dose 3 ML; Start 09/15/18 at 08:00 Levalbuterol (Xopenex Neb) 0.63 mg Q4H RESP THERAPY HHN Last administered on 09/22/18 08:06; Admin Dose 0.63 MG; Start 09/15/18 at 17:00 Levalbuterol (Xopenex Neb) 0.63 mg Q2H RESP THERAPY PRN HHN WHEEZING AND SOB; Start 09/15/18 at 14:00 Collagenase (Santyl) 1 applic DAILY TOP Last administered on 09/24/18 12:04; Admin Dose 1 APPLIC; Start 09/16/18 at 15:00 Acetaminophen/ Hydrocodone Bitart ([place] (5/325)) 1 tab Q6H PRN PO MODERATE CHRIS N LEVEL 4-6 Last administered on 09/23/18 09:38; Admin Dose 1 TAB; Start 09/17/18 at 11:30 Methadone HCl (Methadone Liq) 15 mg Q8 PRN PO SEVERE PAIN Last administered on 09/23/18 23:21; Admin Dose 15 MG; Start 09/17/18 at 18:30 Apixaban (Eliquis) 5 mg BID PO Last administered on 09/23/18 09:45; Admin Dose 5 MG; Start 09/19/18 at 21:00; Status Hold Multivitamins Therapeutic (Theragran) 1 tab DAILY PO Last administered on 09/23/18 09:43; Admin Dose 1 TAB; Start 09/19/18 at 12:00 Ascorbic Acid (Vitamin C) 500 mg DAILY PO Last administered on 09/23/18 09:45; Admin Dose 500 MG; Start 09/19/18 at 12:00; Status Hold Zinc Sulfate (Zinc Sulfate) 220 mg DAILY PO Last administered on 09/22/18 08:50; Admin Dose 220 MG; Start 09/19/18 at 12:00; Status Hold Thiamine HCl (Vitamin B1) 50 mg DAILY PO Last administered on 09/23/18 09:45; Admin Dose 50 MG; Start 09/19/18 at 12:00; Status Hold Simethicone (Mylicon) 80 mg Q6H PRN PO DISTENSION/GAS/BLOATING Last administered on 7/25/19at 23:50; Admin Dose 80 MG; Start 09/20/18 at 06:30 Diltiazem HCl (Cardizem Cd) 120 mg DAILY PO Last administered on 09/23/18at 11:41; Admin Dose 120 MG; Start 09/20/18 at 09:00; Status Hold Famotidine (Pepcid) 20 mg DAILY PO Last administered on 09/23/18at 09:44; Admin Dose 20 MG; Start 09/21/18 at 09:00; Status Hold Zolpidem Tartrate (Ambien) 5 mg HS PRN PO INSOMNIA Last administered on 09/24/18at 01:16; Admin Dose 5 MG; Start 09/21/18 at 02:00; Status Hold Phenol (Cepastat Lozenge) 1 lozenge Q1H PRN MT SORE THROAT Last administered on 09/22/18at 03:32; Admin Dose 1 LOZENGE; Start 09/22/18 at 01:00 Levofloxacin (Levaquin) 500 mg DAILY@06 PO Last administered on 09/23/18at 07:21; Admin Dose 500 MG; Start 09/23/18 at 06:00; Status Hold Metronidazole 100 ml @ 100 mls/hr Q8 IVPB Last administered on 09/23/18at 22:03; Admin Dose 100 MLS/HR; Start 09/23/18 at 14:00; Status Hold Prednisone (Prednisone) 40 mg DAILY PO ; Start 09/24/18 at 09:00; Stop 09/28/18 at 09:00 Dextrose/Sodium Chloride 1,000 ml @ 70 mls/hr [id number] IV Last administered on 09/23/18at 23:13; Admin Dose 70 MLS/HR; Start 09/23/18 at 22:30 Insulin Aspart (Novolog Insulin Pen) NOVOLOG *MILD* ALGORI... Q4 SC ; Start at 01:00 Vancomycin HCl (Vanco Iv Per Pharmacy) VANCOMYCIN PER PHARMACY PER PROTOCOL XX ; Start 09/24/18 at 02:30 Meropenem/Sodium Chloride 50 ml @ 100 mls/hr Q8H IVPB Last administered on 08/30 09/16at 12:04; Admin Dose 100 MLS/HR; Start 09/24/18 at 02:30 Vancomycin HCl 100 ml @ 100 mls/hr Q24H IVPB ; Start 09/25/18 at 03:00 Hydromorphone HCl (Dilaudid) 0.5 mg Q4H PRN IV SEVERE PAIN LEVEL 7-10; Start 09/24/18 at 03:00 Lorazepam (Ativan) 0.5 mg Q6H PRN IV ANXIETY Last administered on 09/24/18at 08:59; Admin Dose 0.5 MG; Start 09/24/18 at 03:00 Miscellaneous Information (*Rx Drug Level Order Reminder*) VANCOMYCIN TROUGH LEVEL 0200 ONCE XX ; Start 09/27/18 at 02:00; Stop 09/27/18 at 02:01 Allergies: Coded Allergies: Sulfa (Sulfonamide Antibiotics) (Verified Allergy, Mild, 09/17/18) chlorpromazine HCl (Verified Allergy, Unknown, 09/17/18) lorazepam (Verified Allergy, Unknown, 09/17/18) Uncoded Allergies: tape (Allergy, Mild, rash, 02/28/16) Past Surgical History Past Surgical Hx: other Social History Smoking Status: Former smoker Exam/Review of Systems Exam Vitals Vital Signs Date Temp Pulse Resp B/P (MAP) Pulse Ox O2 O2 Flow FiO2 Time Delivery Rate 09/24/18 98.0 102 20 109/51 94 Room Air 11:07 (70) 09/24/18 2.0 09:05 Intake and Output 09/23/18 09/23/18 09/24/18 1515:00 23:00 07:00 IntakeIntake Total 50 ml 100 ml 750 ml OutputOutput Total 300 ml BalanceBalance 50 ml 100 ml 450 ml Constitutional: alert, oriented Psych: anxiety Head: normocephalic, atraumatic Eyes: nl conjunctiva, EOMI ENMT: nl external ears & nose Neck: supple Respiratory: normal air movement, diminished breath sounds Cardiovascular: regular rate and rhythm Gastrointestinal: soft, bowel sounds, other (mild tenderness, NG tube in placed to suction.) Musculoskeletal: nl extremities to inspection Extremities: normal pulses 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 Results Result Diagram: 09/24/18 0544 09/24/18 0544 Results 24hrs Laboratory Tests Test 09/23/18 17:29 09/23/18 20:36 09/24/18 00:48 09/24/18 03:19 Bedside Glucose 98 109 104 White Blood Count 17.2 H Red Blood Count 3.00 #L Hemoglobin 9.2 #L Hematocrit 27.2 #L Mean Corpuscular 90.7 Volume Mean Corpuscular 30.7 Hemoglobin Mean Corpuscular 33.8 Hemoglobin Concent Red Cell 15.6 H Distribution Width Platelet Count 247 # Mean Platelet Volume 12.0 H Immature 0.900 H Granulocytes % Neutrophils % Segmented 48 Neutrophils % (Manual) Band Neutrophils % 47 H (Manual) Lymphocytes % Lymphocytes % 2 L (Manual) Monocytes % Monocytes % (Manual) 3 Eosinophils % Basophils % Metamyelocytes % 1 H (manual) Nucleated Red Blood 0.1 H Cells % Immature 0.160 H Granulocytes # Neutrophils # Neutrophils # 9.6 H (Manual) Band Neutrophils # 8.0 H Lymphocytes (Manual) 0.3 L Lymphocytes # Monocytes # Monocytes # (Manual) 0.5 Eosinophils # Basophils # Metamyelocytes # 0.1 H Nucleated Red Blood Cells # Toxic Granulation 1+ Platelet Estimate NORMAL Giant Platelets 1 H Polychromasia 2+ Poikilocytosis 1+ Anisocytosis 2+ Macrocytosis 1+ Spherocytes 1+ Sodium Level 132 L Potassium Level 4.2 Chloride Level 97 Carbon Dioxide Level 26 Anion Gap 9 Blood Urea Nitrogen 28 H Creatinine 0.79 Est Glomerular > 60 Filtrat Rate mL/min Glucose Level 114 Calcium Level 7.7 L Total Bilirubin 0.6 Direct Bilirubin 0.00 Indirect Bilirubin 0.6 Aspartate Amino 34 Transf (AST/SGOT) Alanine 78 H Aminotransferase (AL T/SGPT) Alkaline Phosphatase 52 Total Protein 4.9 L Albumin 2.3 L Globulin 2.60 Albumin/Globulin 0.88 Ratio Test 09/24/18 05:34 09/24/18 05:44 09/24/18 08:02 09/24/18 12:09 Bedside Glucose 107 105 136 White Blood Count 16.2 H Red Blood Count 2.74 L Hemoglobin 8.4 L Hematocrit 24.9 L Mean Corpuscular 90.9 Volume Mean Corpuscular 30.7 Hemoglobin Mean Corpuscular 33.7 Hemoglobin Concent Red Cell 15.9 H Distribution Width Platelet Count 291 Mean Platelet Volume 11.2 H Immature 0.700 H Granulocytes % Neutrophils % Segmented 66 Neutrophils % (Manual) Band Neutrophils % 28 H (Manual) Lymphocytes % Lymphocytes % 3 L (Manual) Monocytes % Monocytes % (Manual) 2 Eosinophils % Basophils % Myelocytes % 1 H (Manual) Nucleated Red Blood 0.2 H Cells % Immature 0.120 H Granulocytes # Neutrophils # Neutrophils # 11.4 H (Manual) Band Neutrophils # 4.5 H Lymphocytes (Manual) 0.4 L Lymphocytes # Monocytes # Monocytes # (Manual) 0.3 Eosinophils # Basophils # Myelocytes # 0.1 H Nucleated Red Blood Cells # Platelet Estimate NORMAL Giant Platelets 1 H Polychromasia 2+ Poikilocytosis 2+ Anisocytosis 2+ Ovalocytes 1+ Prothrombin Time 22.7 #H Prothrombin Time 1.8 Ratio INR International 1.99 Normalized Ratio Activated 35.4 H Partial Thromboplast Time Sodium Level 133 L Potassium Level 3.8 Chloride Level 99 Carbon Dioxide Level 28 Anion Gap 6 Blood Urea Nitrogen 26 H Creatinine 0.88 Est Glomerular > 60 Filtrat Rate mL/min Glucose Level 109 Calcium Level 7.4 L Phosphorus Level 4.1 Magnesium Level 2.[address] abdomen pelvis 09/23/18 IMPRESSION: 1. Free intraperitoneal air is concerning for a perforated viscus. The majority of air is in the upper abdomen and the cause could be a perforated duodenal ulcer. Negative for extravasated oral contrast. Urgent surgical consultation is advised. 2. Distal small bowel obstruction with upstream dilatation of the small bowel and stomach. Recommend placing an enteric tube. There is abrupt kinking of the bowel at the transition point that may be due to an adhesion. 3. Inflammatory thickening of the wall of the terminal ileum and also of the distal colon extending from the distal transverse colon to the sigmoid colon. Differential diagnosis includes, but is not limited to, infection, inflammatory bowel disease or ischemia. 4. Atherosclerosis of the abdominal aorta that is small caliber. Iliac arteries are also small caliber. Medications Medication Current Medications IV Flush (NS 3 ml) 3 ml PER PROTOCOL IV ; Start 09/15/18 at 07:30 Ondansetron HCl (Zofran Inj) 4 mg Q6H PRN IV NAUSEA/VOMITING Last administered on 09/19/18at 07:53; Admin Dose 4 MG; Start 09/15/18 at 07:30 Acetaminophen (Tylenol Tab) 650 mg Q6H PRN PO .PAIN 1-3 OR TEMP Last administered on 09/16/18at 21:56; Admin Dose 650 MG; Start 09/15/18 at 07:30 Baclofen (Lioresal) 10 mg BID PO Last administered on 09/23/18 09:45; Admin Dose 10 MG; Start 09/15/18 at 09:00; Status Hold Buspirone HCl (Buspar) 10 mg BID PO Last administered on 09/23/18 11:44; Admin Dose 10 MG; Start 09/15/18 at 09:00; Status Hold Calcium Carbonate (Oyster Shell Calcium) 1.25 gm BID PO Last administered on 09/23/18 11:44; Admin Dose 1.25 GM; Start 09/15/18 at 09:00; Status Hold Clonazepam (Klonopin) 0.5 mg DAILY PRN PO ANXIETY Last administered on 09/23/18 02:04; Admin Dose 0.5 MG; Start 09/15/18 at 07:30; Status Hold Docusate Sodium (Colace) 100 mg BID PO Last administered on 09/23/18 09:43; Admin Dose 100 MG; Start 09/15/18 at 09:00; Status Hold Rifaximin (Xifaxan) 550 mg BID PO Last administered on 09/22/18 21:42; Admin Dose 550 MG; Start 09/15/18 at 09:00; Status Hold Sertraline HCl (Zoloft) 100 mg DAILY PO ; Start 09/15/18 at 09:00; Status Hold Fluticasone/ Vilanterol (Breo Ellipta 200-25 Mcg Inh) 1 inh DAILY INH Last administered on 09/23/18 11:39; Admin Dose 1 INH; Start 09/15/18 at 09:00 Albuterol/ Ipratropium (Duoneb) 3 ml Q3H RESP THERAPY PRN HHN WHEEZING AND SOB Last administered on 09/21/18 21:08; Admin Dose 3 ML; Start 09/15/18 at 08:00 Levalbuterol (Xopenex Neb) 0.63 mg Q4H RESP THERAPY HHN Last administered on 09/22/18 08:06; Admin Dose 0.63 MG; Start 09/15/18 at 17:00 Levalbuterol (Xopenex Neb) 0.63 mg Q2H RESP THERAPY PRN HHN WHEEZING AND SOB; Start 09/15/18 at 14:00 Collagenase (Santyl) 1 applic DAILY TOP Last administered on 09/24/18 12:04; Admin Dose 1 APPLIC; Start 09/16/18 at 15:00 Acetaminophen/ Hydrocodone Bitart ([place] (5/325)) 1 tab Q6H PRN PO MODERATE PAIN LEVEL 4-6 Last administered on 09/23/18 09:38; Admin Dose 1 TAB; Start 09/17/18 at 11:30 Methadone HCl (Methadone Liq) 15 mg Q8 PRN PO SEVERE PAIN Last administered on 09/23/18 23:21; Admin Dose 15 MG; Start 09/17/18 at 18:30 Apixaban (Eliquis) 5 mg BID PO Last administered on 09/23/18 09:45; Admin Dose 5 MG; Start 09/19/18 at 21:00; Status Hold Multivitamins Therapeutic (Theragran) 1 tab DAILY PO Last administered on 09/23/18 09:43; Admin Dose 1 TAB; Start 09/19/18 at 12:00 Ascorbic Acid (Vitamin C) 500 mg DAILY PO Last administered on 09/23/18 09:45; Admin Dose 500 MG; Start 09/19/18 at 12:00; Status Hold Zinc Sulfate (Zinc Sulfate) 220 mg DAILY PO Last administered on 09/22/18 08:5 0; Admin Dose 220 MG; Start 09/19/18 at 12:00; Status Hold Thiamine HCl (Vitamin B1) 50 mg DAILY PO Last administered on 09/23/18 09:45; Admin Dose 50 MG; Start 09/19/18 at 12:00; Status Hold Simethicone (Mylicon) 80 mg Q6H PRN PO DISTENSION/GAS/BLOATING Last administered on 09/22/18 23:50; Admin Dose 80 MG; Start 09/20/18 at 06:30 Diltiazem HCl (Cardizem Cd) 120 mg DAILY PO Last administered on 09/23/18 11:41; Admin Dose 120 MG; Start 09/20/18 at 09:00; Status Hold Famotidine (Pepcid) 20 mg DAILY PO Last administered on 09/23/18 09:44; Admin Dose 20 MG; Start 09/21/18 at 09:00; Status Hold Zolpidem Tartrate (Ambien) 5 mg HS PRN PO INSOMNIA Last administered on 09/24/18 01:16; Admin Dose 5 MG; Start 09/21/18 at 02:00; Status Hold Phenol (Cepastat Lozenge) 1 lozenge Q1H PRN MT SORE THROAT Last administered on 09/22/18at 03:32; Admin Dose 1 LOZENGE; Start 09/22/18 at 01:00 Levofloxacin (Levaquin) 500 mg DAILY@06 PO Last administered on 09/23/18at 07:21; Admin Dose 500 MG; Start 09/23/18 at 06:00; Status Hold Metronidazole 100 ml @ 100 mls/hr Q8 IVPB Last administered on 09/23/18at 22:03; Admin Dose 100 MLS/HR; Start 09/23/18 at 14:00; Status Hold Prednisone (Prednisone) 40 mg DAILY PO ; Start 09/24/18 at 09:00; Stop 09/28/18 at 09:00 Dextrose/Sodium Chloride 1,000 ml @ 70 mls/hr [id number] IV Last administered on 09/23/18at 23:13; Admin Dose 70 MLS/HR; Start 09/23/18 at 22:30 Insulin Aspart (Novolog Insulin Pen) NOVOLOG *MILD* ALGORI... Q4 SC ; Start 09/24/18 at 01:00 Vancomycin HCl (Vanco Iv Per Pharmacy) VANCOMYCIN PER PHARMACY PER PROTOCOL XX ; Start 09/24/18 at 02:30 Meropenem/Sodium Chloride 50 ml @ 100 mls/hr Q8H IVPB Last administered on 09/24/18at 12:04; Admin Dose 100 MLS/HR; Start 09/24/18 at 02:30 Vancomycin HCl 100 ml @ 100 mls/hr Q24H IVPB ; Start 09/25/18 at 03:00 Hydromorphone HCl (Dilaudid) 0.5 mg Q4H PRN IV SEVERE PAIN LEVEL 7-10; Start 09/24/18 at 03:00 Lorazepam (Ativan) 0.5 mg Q6H PRN IV ANXIETY Last administered on 09/24/18at 08 :59; Admin Dose 0.5 MG; Start 09/24/18 at 03:00 Miscellaneous Information (*Rx Drug Level Order Reminder*) VANCOMYCIN TROUGH LEVEL 0200 ONCE XX ; Start 09/27/18 at 02:00; Stop 09/27/18 at 02:01 MELISSA HOUSE NP Sep 24, 2018 14:08
--- NOTE | 2018-09-24 16:09 | CONS ---
Consult Date/Type/Reason Admit Date/Time Sep 15, 2018 at 03:32 Initial Consult Date 09/24/18 Type of Consultation: Pulm Requesting Provider: DENZEL HOFFMANN Date/Time of Note DATE: 09/24/18 TIME: 16:[address] reviewed. Now in telemetry. Objective Vitals Vital Signs Date Temp Pulse Resp B/P (MAP) Pulse Ox O2 O2 Flow FiO2 Time Delivery Rate 09/24/18 98.0 102 20 109/51 94 Room Air 11:07 (70) 09/24/18 2.0 09:05 Intake and Output 09/23/18 09/23/18 09/24/18 1515:00 23:00 07:00 IntakeIntake Total 50 ml 100 ml 750 ml OutputOutput Total 300 ml BalanceBalance 50 ml 100 ml 450 ml Exam NECK: Supple. JVD is not elevated. CARDIAC: S1, S2, no added sounds or murmurs. CHEST: Diminished air entry bilaterally. ABDOMEN: Distended, mild TTP No guarding or rebound. EXTREMITIES: No cyanosis, clubbing, 1+ edema. NEUROLOGIC: Grossly intact Results/Medications Result Diagram: 09/24/18 0544 09/24/18 0544 Results 24 hrs Laboratory Tests Test 09/23/18 17:29 09/23/18 20:36 09/24/18 00:48 09/24/18 03:19 Bedside Glucose 98 109 104 White Blood Count 17.2 H Red Blood Count 3.00 #L Hemoglobin 9.2 #L Hematocrit 27.2 #L Mean Corpuscular 90.7 Volume Mean Corpuscular 30.7 Hemoglobin Mean Corpuscular 33.8 Hemoglobin Concent Red Cell 15.6 H Distribution Width Platelet Count 247 # Mean Platelet Volume 12.0 H Immature 0.900 H Granulocytes % Neutrophils % Segmented 48 Neutrophils % (Manual) Band Neutrophils % 47 H (Manual) Lymphocytes % Lymphocytes % 2 L (Manual) Monocytes % Monocytes % (Manual) 3 Eosinophils % Basophils % Metamyelocytes % 1 H (manual) Nucleated Red Blood 0.1 H Cells % Immature 0.160 H Granulocytes # Neutrophils # Neutrophils # 9.6 H (Manual) Band Neutrophils # 8.0 H Lymphocytes (Manual) 0.3 L Lymphocytes # Monocytes # Monocytes # (Manual) 0.5 Eosinophils # Basophils # Metamyelocytes # 0.1 H Nucleated Red Blood Cells # Toxic Granulation 1+ Platelet Estimate NORMAL Giant Platelets 1 H Polychromasia 2+ Poikilocytosis 1+ Anisocytosis 2+ Macrocytosis 1+ Spherocytes 1+ Sodium Level 132 L Potassium Level 4.2 Chloride Level 97 Carbon Dioxide Level 26 Anion Gap 9 Blood Urea Nitrogen 28 H Creatinine 0.79 Est Glomerular > 60 Filtrat Rate mL/min Glucose Level 114 Calcium Level 7.7 L Total Bilirubin 0.6 Direct Bilirubin 0.00 Indirect Bilirubin 0.6 Aspartate Amino 34 Transf (AST/SGOT) Alanine 78 H Aminotransferase (AL T/SGPT) Alkaline Phosphatase 52 Total Protein 4.9 L Albumin 2.3 L Globulin 2.60 Albumin/Globulin 0.88 Ratio Test 09/24/18 05:34 09/24/18 05:44 09/24/18 08:02 09/24/18 12:09 Bedside Glucose 107 105 136 White Blood Count 16.2 H Red Blood Count 2.74 L Hemoglobin 8.4 L Hematocrit 24.9 L Mean Corpuscular 90.9 Volume Mean Corpuscular 30.7 Hemoglobin Mean Corpuscular 33.7 Hemoglobin Concent Red Cell 15.9 H Distribution Width Platelet Count 291 Mean Platelet Volume 11.2 H Immature 0.700 H Granulocytes % Neutrophils % Segmented 66 Neutrophils % (Manual) Band Neutrophils % 28 H (Manual) Lymphocytes % Lymphocytes % 3 L (Manual) Monocytes % Monocytes % (Manual) 2 Eosinophils % Basophils % Myelocytes % 1 H (Manual) Nucleated Red Blood 0.2 H Cells % Immature 0.120 H Granulocytes # Neutrophils # Neutrophils # 11.4 H (Manual) Band Neutrophils # 4.5 H Lymphocytes (Manual) 0.4 L Lymphocytes # Monocytes # Monocytes # (Manual) 0.3 Eosinophils # Basophils # Myelocytes # 0.1 H Nucleated Red Blood Cells # Platelet Estimate NORMAL Giant Platelets 1 H Polychromasia 2+ Poikilocytosis 2+ Anisocytosis 2+ Ovalocytes 1+ Prothrombin Time 22.7 #H Prothrombin Time 1.8 Ratio INR International 1.99 Normalized Ratio Activated 35.4 H Partial Thromboplast Time Sodium Level 133 L Potassium Level 3.8 Chloride Level 99 Carbon Dioxide Level 28 Anion Gap 6 Blood Urea Nitrogen 26 H Creatinine 0.88 Est Glomerular > 60 Filtrat Rate mL/min Glucose Level 109 Calcium Level 7.4 L Phosphorus Level 4.1 Magnesium Level 2.1 Home Meds Active Scripts Pantoprazole* (Pantoprazole*) 40 Mg Tablet.dr, 40 MG PO DAILY@06 for 14 Days, #14 Prov:RICKIE DALTON MD 06/12/18 Apixaban* (Eliquis*) 5 Mg Tablet, 10 MG PO BID for 30 Days, #60 TAB 10 mg twice daily for 5 days, then 5 mg twice daily Prov:RICKIE DALTON MD 06/12/18 Methadone Hcl* (Methadone*) 5 Mg/5 Ml Solution, 68 MG PO DAILY for 30 Days, ML Prov:STU ORTEZ. 04/14/18 Salmeterol Xinaf/Fluticasone* (Advair*) 250-50 Diskus Inhaler, 1 INH INHALATION BID for 30 Days, #1 INHALER Prov:ZHANG WARE NP 02/28/16 Albuterol Sulfate* (Proair HFA*) 8.5 Gm Hfa.aer.ad, 2 PUFF INH Q6 for SHORTNESS OF BREATH for 14 Days, #1 INHALER Prov:ZHANG WARE [employer] 02/28/16 Reported Medications Sertraline Hcl* (Sertraline Hcl*) 25 Mg Tablet, 25 MG PO DAILY, #30 TAB 09/15/18 Buspirone Hcl* (Buspirone Hcl*) 10 Mg Tab, 10 MG PO BID, TAB 09/15/18 Clonazepam* (Clonazepam*) 0.5 Mg Tablet, 0.5 MG PO DAILY PRN for ANXIETY, TAB 09/15/18 Ipratropium-Albuterol (Ipratropium-Albuterol) 0.5-3 Mg/3 Ml Ampul.neb, 3 ML INHALATION Q6 PRN for WHEEZING AND SOB, #30 VIAL 09/15/18 Carvedilol* (Carvedilol*) 6.25 Mg Tablet, 6.25 MG PO BID, #60 TAB 09/15/18 Cholecalciferol (Vitamin D3) (VITAMIN D-3) 2,000 Unit Capsule, 2000 U PO DAILY for 30 Days 04/30/18 Amlodipine Besylate* (Amlodipine Besylate*) 5 Mg Tablet, 5 MG PO DAILY for 30 Days, #30 04/30/18 Baclofen* (Baclofen*) 10 Mg Tablet, 10 MG PO BID 04/30/18 Calcium Carbonate ([id number]) 500 Mg Tablet, 500 MG PO BID, TAB 04/30/18 Medications Current Medications IV Flush (NS 3 ml) 3 ml PER PROTOCOL IV ; Start 09/15/18 at 07:30 Ondansetron HCl (Zofran Inj) 4 mg Q6H PRN IV NAUSEA/VOMITING Last administered on 09/19/18 07:53; Admin Dose 4 MG; Start 09/15/18 at 07:30 Acetaminophen (Tylenol Tab) 650 mg Q6H PRN PO .PAIN 1-3 OR TEMP Last administered on 09/16/18 21:56; Admin Dose 650 MG; Start 09/15/18 at 07:30 Baclofen (Lioresal) 10 mg BID PO Last administered on 09/23/18 09:45; Admin Dose 10 MG; Start 09/15/18 at 09:00; Status Hold Buspirone HCl (Buspar) 10 mg BID PO Last administered on 09/23/18 11:44; Admin Dose 10 MG; Start 09/15/18 at 09:00; Status Hold Calcium Carbonate (Oyster Shell Calcium) 1.25 gm BID PO Last administered on 09/23/18 11:44; Admin Dose 1.25 GM; Start 09/15/18 at 09:00; Status Hold Clonazepam (Klonopin) 0.5 mg DAILY PRN PO ANXIETY Last administered on 09/23/18 02:04; Admin Dose 0.5 MG; Start 09/15/18 at 07:30; Status Hold Docusate Sodium (Colace) 100 mg BID PO Last administered on 09/23/18 09:43; Admin Dose 100 MG; Start 09/15/18 at 09:00; Status Hold Rifaximin (Xifaxan) 550 mg BID PO Last administered on 09/22/18 21:42; Admin Dose 550 MG; Start 09/15/18 at 09:00; Status Hold Sertraline HCl (Zoloft) 100 mg DAILY PO ; Start 09/15/18 at 09:00; Status Hold Fluticasone/ Vilanterol (Breo Ellipta 200-25 Mcg Inh) 1 inh DAILY INH Last administered on 09/23/18 11:39; Admin Dose 1 INH; Start 09/15/18 at 09:00 Albuterol/ Ipratropium (Duoneb) 3 ml Q3H RESP THERAPY PRN HHN WHEEZING AND SOB Last administered on 09/21/18 21:08; Admin Dose 3 ML; Start 09/15/18 at 08:00 Levalbuterol (Xopenex Neb) 0.63 mg Q4H RESP THERAPY HHN Last administered on 09/22/18 08:06; Admin Dose 0.63 MG; Start 09/15/18 at 17:00 Levalbuterol (Xopenex Neb) 0.63 mg Q2H RESP THERAPY PRN HHN WHEEZING AND SOB; Start 09/15/18 at 14:00 Collagenase (Santyl) 1 applic DAILY TOP Last administered on 09/24/18 12:04; Admin Dose 1 APPLIC; Start 09/16/18 at 15:00 Acetaminophen/ Hydrocodone Bitart ([place] (5/325)) 1 tab Q6H PRN PO MODERATE PAIN LEVEL 4-6 Last administered on 09/23/18 09:38; Admin Dose 1 TAB; Start 09/17/18 at 11:30 Methadone HCl (Methadone Liq) 15 mg Q8 PRN PO SEVERE PAIN Last administered on 09/23/18 23:21; Admin Dose 15 MG; Start 09/17/18 at 18:30 Apixaban (Eliquis) 5 mg BID PO Last administered on 09/23/18 09:45; Admin Dose 5 MG; Start 09/19/18 at 21:00; Status Hold Multivitamins Therapeutic (Theragran) 1 tab DAILY PO Last administered on 09/23/18 09:43; Admin Dose 1 TAB; Start 09/19/18 at 12:00 Ascorbic Acid (Vitamin C) 500 mg DAILY PO Last administered on 09/23/18 09:45; Admin Dose 500 MG; Start 09/19/18 at 12:00; Status Hold Zinc Sulfate (Zinc Sulfate) 220 mg DAILY PO Last administered on 09/22/18 08:50; Admin Dose 220 MG; Start 09/19/18 at 12:00; Status Hold Thiamine HCl (Vitamin B1) 50 mg DAILY PO Last administered on 09/23/18 09:45; Admin Dose 50 MG; Start 09/19/18 at 12:00; Status Hold Simethicone (Mylicon) 80 mg Q6H PRN PO DISTENSION/GAS/BLOATING Last administered on 09/22/18at 23:50; Admin Dose 80 MG; Start 09/20/18 at 06:30 Diltiazem HCl (Cardizem Cd) 120 mg DAILY PO Last administered on 09/23/18at 11:41; Admin Dose 120 MG; Start 09/20/18 at 09:00; Status Hold Zolpidem Tartrate (Ambien) 5 mg HS PRN PO INSOMNIA Last administered on 09/24/18at 01:16; Admin Dose 5 MG; Start 09/21/18 at 02:00; Status Hold Phenol (Cepastat Lozenge) 1 lozenge Q1H PRN MT SORE THROAT Last administered on 09/22/18 03:32; Admin Dose 1 LOZENGE; Start 09/22/18 at 01:00 Levofloxacin (Levaquin) 500 mg DAILY@06 PO Last administered on 09/23/18at 07:21; Admin Dose 500 MG; Start 09/23/18 at 06:00; Status Hold Metronidazole 100 ml @ 100 mls/hr Q8 IVPB Last administered on 09/23/18at 22:03; Admin Dose 100 MLS/HR; Start 09/23/18 at 14:00; Status Hold Prednisone (Prednisone) 40 mg DAILY PO ; Start 09/24/18 at 09:00; Stop 09/28/18 at 09:00 Dextrose/Sodium Chloride 1,000 ml @ 70 mls/hr [id number] IV Last administered on 09/23/18at 23:13; Admin Dose 70 MLS/HR; Start 09/23/18 at 22:30 Insulin Aspart (Novolog Insulin Pen) NOVOLOG *MILD* ALGORI... Q4 SC ; Start 09/24/18 at 01:00 Vancomycin HCl (Vanco Iv Per Pharmacy) VANCOMYCIN PER PHARMACY PER PROTOCOL XX ; Start 09/24/18 at 02:30 Meropenem/Sodium Chloride 50 ml @ 100 mls/hr Q8H IVPB Last administered on 09/24/18at 12:04; Admin Dose 100 MLS/HR; Start 09/24/18 at 02:30 Vancomycin HCl 100 ml @ 100 mls/hr Q24H IVPB ; Start 09/25/18 at 03:00 Hydromorphone HCl (Dilaudid) 0.5 mg Q4H PRN IV SEVERE PAIN LEVEL 7-10; Start 09/24/18 at 03:00 Lorazepam (Ativan) 0.5 mg Q6H PRN IV ANXIETY Last administered on 09/24/18at 14:31; Admin Dose 0.5 MG; Start 09/24/18 at 03:00 Miscellaneous Information (*Rx Drug Level Order Reminder*) VANCOMYCIN TROUGH LEVEL 0200 ONCE XX ; Start 09/27/18 at 02:00; Stop 09/27/18 at 02:01 Pantoprazole (Protonix Iv) 40 mg BID@06,18 IV ; Start 09/24/18 at 18:00 Assessment/Plan Assessment/Plan (Daily) IMPRESSION 1. Possible perforated PUD--refusing intervention 2. Chronic obstructive pulmonary disease with acute exacerbation. 3. Type NSTEMI 4. s/p Dehydration and renal insufficiency. 5. History of venous thromboembolism RECS: 1. Continue with current plan 2. Taper off CS 3. BDs 4. Aspiration precautions LEONORA GLASGOW MD Sep 24, 2018 16:09
[2018-09-24 16:13] VITALS: BP 109/53; PULSE 104; RESP 20
[2018-09-24] MEDS: PANTOPRAZOLE 40 MG INJ IV SCH (17:28)
[2018-09-24] MEDS: HYDROmorphONE 0.5 MG/0.5 ML SYG IV PRN ×2 (17:29→23:53)
[2018-09-24 20:00] VITALS: BP 121/56; PULSE 103; PULSE 107; RESP 18
--- NOTE | 2018-09-24 23:18 | CONS ---
Assessment/Plan Assessment/Plan Hospital Course (Demo Recall) 1. Perforated viscous with possible small bowel obstruction with possible bowel inflammation. I had a long d/w patient as she did with hospitalist. She is refusing surgery despite severe consequences up to . Patient is refusing still -abx -supportive -fluids -medical management 2. Hypoxic and hypercapnic respiratory failure -Supplemental oxygen, bronchodilators, as needed BiPAP -Pulmonary consult 3. NSTEMI -medical/cardiac optimization 4. Sepsis, leukocytosis 2nd above -as above 5. Acute renal insufficiency judicious fluid management -avoid nephrotoxic agents 6. Elevated transaminases, history of hep C -Monitor Thank you very much for consulting me in this patient's care. Consultation Date/Type/Reason Admit Date/Time Sep 15, 2018 at 03:32 Date of Consultation: Sep 24, 2018 Type of Consult G. Surgical Reason for Consultation Perforated viscous Sepsis Requesting Provider: LEOBARDO DC Date/Time of Note DATE: 09/24/18 TIME: 23:17 Hx of Present Illness Elise Hernandez is a 68yo female with significant comorbidities who initially presented to the emergency room with shortness of breath that has been getting progressively worse without chest pain, visual or neurologic changes. She was hypoxic. She was placed on BiPAP. Her troponin was elevated with non-ST elevation MS. History of PE. Patient also was complaining of abdominal pain and further imaging has identified perforated viscus with free air. Surgical consult is obtained further evaluation and treatment. However, advised that patient is refusing surgery. 12 point ros negative unless otherwise addressed in chart Past Medical History COPD, PE Psych disorder CKD Hepatitis C liver disease Shortness of breath Renal insufficiency Perforated viscus Possible sepsis Leukocytosis Anemia Mild coagulopathy Distal small bowel obstruction with upstream dilatation of the small bowel and stomach Inflammatory thickening of the wall of the terminal ileum and also of the distal colon extending from the distal transverse colon to the sigmoid colon Atherosclerosis of the abdominal aorta Home Meds Active Scripts Pantoprazole* (Pantoprazole*) 40 Mg Tablet., 40 MG PO DAILY@06 for 14 Days, #14 Prov:RICKIE DALTON MD 06/12/18 Apixaban* (Eliquis*) 5 Mg Tablet, 10 MG PO BID for 30 Days, #60 TAB 10 mg twice daily for 5 days, then 5 mg twice daily Prov:RICKIE DALTON MD 06/12/18 Methadone Hcl* (Methadone*) 5 Mg/5 Ml Solution, 68 MG PO DAILY for 30 Days, ML Prov:PÉREZSTU García. 04/14/18 Salmeterol Xinaf/Fluticasone* (Advair*) 250-50 Diskus Inhaler, 1 INH INHALATION BID for 30 Days, #1 INHALER Prov:ZHANG WARE NP 02/28/16 Albuterol Sulfate* (Proair HFA*) 8.5 Gm Hfa.aer.ad, 2 PUFF INH Q6 for SHORTNESS OF BREATH for 14 Days, #1 INHALER Prov:ZHANG WARE TRACK SURFACING MACHINE OPERATOR 02/28/16 Reported Medications Sertraline Hcl* (Sertraline Hcl*) 25 Mg Tablet, 25 MG PO DAILY, #30 TAB 09/15/18 Buspirone Hcl* (Buspirone Hcl*) 10 Mg Tab, 10 MG PO BID, TAB 09/15/18 Clonazepam* (Clonazepam*) 0.5 Mg Tablet, 0.5 MG PO DAILY PRN for ANXIETY, TAB 09/15/18 Ipratropium-Albuterol (Ipratropium-Albuterol) 0.5-3 Mg/3 Ml Ampul.neb, 3 ML INHALATION Q6 PRN for WHEEZING AND SOB, #30 VIAL 09/15/18 Carvedilol* (Carvedilol*) 6.25 Mg Tablet, 6.25 MG PO BID, #60 TAB 09/15/18 Cholecalciferol (Vitamin D3) (VITAMIN D-3) 2,000 Unit Capsule, 2000 U PO DAILY for 30 Days 04/30/18 Amlodipine Besylate* (Amlodipine Besylate*) 5 Mg Tablet, 5 MG PO DAILY for 30 Days, #30 04/30/18 Baclofen* (Baclofen*) 10 Mg Tablet, 10 MG PO BID 04/30/18 Calcium Carbonate ([id number]) 500 Mg Tablet, 500 MG PO BID, TAB 04/30/18 Medications Current Medications IV Flush (NS 3 ml) 3 ml PER PROTOCOL IV ; Start 09/15/18 at 07:30 Ondansetron HCl (Zofran Inj) 4 mg Q6H PRN IV NAUSEA/VOMITING Last administered on 09/19/18at 07:53; Admin Dose 4 MG; Start 09/15/18 at 07:30 Acetaminophen (Tylenol Tab) 650 mg Q6H PRN PO .PAIN 1-3 OR TEMP Last administered on 09/16/18 21:56; Admin Dose 650 MG; Start 09/15/18 at 07:30 Baclofen (Lioresal) 10 mg BID PO Last administered on 09/23/18 09:45; Admin Dose 10 MG; Start 09/15/18 at 09:00; Status Hold Buspirone HCl (Buspar) 10 mg BID PO Last administered on 09/23/18 11:44; Admin Dose 10 MG; Start 09/15/18 at 09:00; Status Hold Calcium Carbonate (Oyster Shell Calcium) 1.25 gm BID PO Last administered on 09/23/18 11:44; Admin Dose 1.25 GM; Start 09/15/18 at 09:00; Status Hold Clonazepam (Klonopin) 0.5 mg DAILY PRN PO ANXIETY Last administered on 09/23/18 02:04; Admin Dose 0.5 MG; Start 09/15/18 at 07:30; Status Hold Docusate Sodium (Colace) 100 mg BID PO Last administered on 09/23/18 09:43; Admin Dose 100 MG; Start 09/15/18 at 09:00; Status Hold Rifaximin (Xifaxan) 550 mg BID PO Last administered on 09/22/18 21:42; Admin Dose 550 MG; Start 09/15/18 at 09:00; Status Hold Sertraline HCl (Zoloft) 100 mg DAILY PO ; Start 09/15/18 at 09:00; Status Hold Fluticasone/ Vilanterol (Breo Ellipta 200-25 Mcg Inh) 1 inh DAILY INH Last administered on 09/23/18 11:39; Admin Dose 1 INH; Start 09/15/18 at 09:00 Albuterol/ Ipratropium (Duoneb) 3 ml Q3H RESP THERAPY PRN HHN WHEEZING AND SOB Last administered on 09/21/18 21:08; Admin Dose 3 ML; Start 09/15/18 at 08:00 Levalbuterol (Xopenex Neb) 0.63 mg Q4H RESP THERAPY HHN Last administered on 7/25/19at 08:06; Admin Dose 0.63 MG; Start 09/15/18 at 17:00 Levalbuterol (Xopenex Neb) 0.63 mg Q2H RESP THERAPY PRN HHN WHEEZING AND SOB; Start 09/15/18 at 14:00 Collagenase (Santyl) 1 applic DAILY TOP Last administered on 09/24/18 12:04; Admin Dose 1 APPLIC; Start 09/16/18 at 15:00 Acetaminophen/ Hydrocodone Bitart ([place] (5/325)) 1 tab Q6H PRN PO MODERATE PAIN LEVEL 4-6 Last administered on 09/23/18 09:38; Admin Dose 1 TAB; Start 09/17/18 at 11:30 Methadone HCl (Methadone Liq) 15 mg Q8 PRN PO SEVERE PAIN Last administered on 09/23/18 23:21; Admin Dose 15 MG; Start 09/17/18 at 18:30 Apixaban (Eliquis) 5 mg BID PO Last administered on 09/23/18 09:45; Admin Dose 5 MG; Start 09/19/18 at 21:00; Status Hold Multivitamins Therapeutic (Theragran) 1 tab DAILY PO Last administered on 09/23/18 09:43; Admin Dose 1 TAB; Start 09/19/18 at 12:00 Ascorbic Acid (Vitamin C) 500 mg DAILY PO Last administered on 09/23/18 09:45; Admin Dose 500 MG; Start 09/19/18 at 12:00; Status Hold Zinc Sulfate (Zinc Sulfate) 220 mg DAILY PO Last administered on 09/22/18 08:50; Admin Dose 220 MG; Start 09/19/18 at 12:00; Status Hold Thiamine HCl (Vitamin B1) 50 mg DAILY PO Last administered on 09/23/18 09:45; Admin Dose 50 MG; Start 09/19/18 at 12:00; Status Hold Simethicone (Mylicon) 80 mg Q6H PRN PO DISTENSION/GAS/BLOATING Last administered on 09/22/18 23:50; Admin Dose 80 MG; Start 09/20/18 at 06:30 Diltiazem HCl (Cardizem Cd) 120 mg DAILY PO Last administered on 09/23/18 11:41; Admin Dose 120 MG; Start 09/20/18 at 09:00; Status Hold Zolpidem Tartrate (Ambien) 5 mg HS PRN PO INSOMNIA Last administered on 09/24/18 01:16; Admin Dose 5 MG; Start 09/21/18 at 02:00; Status Hold Phenol (Cepastat Lozenge) 1 lozenge Q1H PRN MT SORE THROAT Last administered on 09/22/18 03:32; Admin Dose 1 LOZENGE; Start 09/22/18 at 01:00 Levofloxacin (Levaquin) 500 mg DAILY@06 PO Last administered on 09/23/18 07:21; Admin Dose 500 MG; Start 09/23/18 at 06:00; Status Hold Metronidazole 100 ml @ 100 mls/hr Q8 IVPB Last administered on 09/23/18 22:03; Admin Dose 100 MLS/HR; Start 09/23/18 at 14:00; Status Hold Prednisone (Prednisone) 40 mg DAILY PO ; Start 09/24/18 at 09:00; Stop 09/28/18 at 09:00 Dextrose/Sodium Chloride 1,000 ml @ 70 mls/hr [id number] IV Last administered on 09/23/18 23:13; Admin Dose 70 MLS/HR; Start 09/23/18 at 22:30 Insulin Aspart (Novolog Insulin Pen) NOVOLOG *MILD* ALGORI... Q4 SC ; Start 09/24/18 at 01:00 Vancomycin HCl (Vanco Iv Per Pharmacy) VANCOMYCIN PER PHARMACY PER PROTOCOL XX ; Start 09/24/18 at 02:30 Meropenem/Sodium Chloride 50 ml @ 100 mls/hr Q8H IVPB Last administered on 09/24/18at 17:20; Admin Dose 100 MLS/HR; Start 09/24/18 at 02:30 Vancomycin HCl 100 ml @ 100 mls/hr Q24H IVPB ; Start 09/25/18 at 03:00 Hydromorphone HCl (Dilaudid) 0.5 mg Q4H PRN IV SEVERE PAIN LEVEL 7-10 Last administered on 09/24/18at 17:29; Admin Dose 0.5 MG; Start 09/24/18 at 03:00 Lorazepam (Ativan) 0.5 mg Q6H PRN IV ANXIETY Last administered on 09/24/18at 20:51; Admin Dose 0.5 MG; Start 09/24/18 at 03:00 Miscellaneous Information (*Rx Drug Level Order Reminder*) VANCOMYCIN TROUGH LEVEL 0200 ONCE XX ; Start 09/27/18 at 02:00; Stop 09/27/18 at 02:01 Pantoprazole (Protonix Iv) 40 mg BID@06,18 IV Last administered on 09/24/18at 17:28; Admin Dose 40 MG; Start 09/24/18 at 18:00 Allergies: Coded Allergies: Sulfa (Sulfonamide Antibiotics) (Verified Allergy, Mild, 09/17/18) chlorpromazine HCl (Verified Allergy, Unknown, 09/17/18) lorazepam (Verified Allergy, Unknown, 09/17/18) Uncoded Allergies: tape (Allergy, Mild, rash, 02/28/16) Past Surgical History Past Surgical Hx: no surgical history, other Family History Significant Family History: no pertinent family hx Social History Alcohol Use: none Smoking Status: Former smoker Drug Use: none Exam/Review of Systems Exam Vitals Vital Signs Date Temp Pulse Resp B/P (MAP) Pulse Ox O2 O2 Flow FiO2 Time Delivery Rate 09/24/18 Nasal 2.0 21:53 Cannula 09/24/18 97.6 103 18 121/56 96 20:00 (77) Intake and Output 09/23/18 09/23/18 09/24/18 1515:00 23:00 07:00 IntakeIntake Total 50 ml 100 ml 750 ml OutputOutput Total 300 ml BalanceBalance 50 ml 100 ml 450 ml Constitutional: alert, oriented (To self, Time, Situation, Location); No distress Psych: nl mood/affect; No anxiety Head: normocephalic, lacerations Eyes: nl conjunctiva, EOMI, PERRL; No icteric ENMT: nl external ears & nose, mucosa pink and moist Neck: supple, non-tender, jvd Respiratory: normal air movement; No congested cough, No labored breathing Cardiovascular: No regular rate and rhythm, No edema Gastrointestinal: soft, distended (min), tender; No rebound or guarding Musculoskeletal: nl extremities to inspection; No nl gait and stance, No joint tenderness Extremities: normal pulses Results Result Diagram: 09/24/18 0544 09/24/18 0544 Results 24hrs Laboratory Tests Test 09/24/18 00:48 09/24/18 03:19 09/24/18 05:34 09/24/18 05:44 Bedside Glucose 104 107 White Blood Count 17.2 H 16.2 H Red Blood Count 3.00 #L 2.74 L Hemoglobin 9.2 #L 8.4 L Hematocrit 27.2 #L 24.9 L Mean Corpuscular 90.7 90.9 Volume Mean Corpuscular 30.7 30.7 Hemoglobin Mean Corpuscular 33.8 33.7 Hemoglobin Concent Red Cell 15.6 H 15.9 H Distribution Width Platelet Count 247 # 291 Mean Platelet Volume 12.0 H 11.2 H Immature 0.900 H 0.700 H Granulocytes % Neutrophils % Segmented 48 66 Neutrophils % (Manual) Band Neutrophils % 47 H 28 H (Manual) Lymphocytes % Lymphocytes % 2 L 3 L (Manual) Monocytes % Monocytes % (Manual) 3 2 Eosinophils % Basophils % Metamyelocytes % 1 H (manual) Nucleated Red Blood 0.1 H 0.2 H Cells % Immature 0.160 H 0.120 H Granulocytes # Neutrophils # Neutrophils # 9.6 H 11.4 H (Manual) Band Neutrophils # 8.0 H 4.5 H Lymphocytes (Manual) 0.3 L 0.4 L Lymphocytes # Monocytes # Monocytes # (Manual) 0.5 0.3 Eosinophils # Basophils # Metamyelocytes # 0.1 H Nucleated Red Blood Cells # Toxic Granulation 1+ Platelet Estimate NORMAL NORMAL Giant Platelets 1 H 1 H Polychromasia 2+ 2+ Poikilocytosis 1+ 2+ Anisocytosis 2+ 2+ Macrocytosis 1+ Spherocytes 1+ Sodium Level 132 L 133 L Potassium Level 4.2 3.8 Chloride Level 97 99 Carbon Dioxide Level 26 28 Anion Gap 9 6 Blood Urea Nitrogen 28 H 26 H Creatinine 0.79 0.88 Est Glomerular > 60 > 60 Filtrat Rate mL/min Glucose Level 114 109 Calcium Level 7.7 L 7.4 L Total Bilirubin 0.6 Direct Bilirubin 0.00 Indirect Bilirubin 0.6 Aspartate Amino 34 Transf (AST/SGOT) Alanine 78 H Aminotransferase (AL T/SGPT) Alkaline Phosphatase 52 Total Protein 4.9 L Albumin 2.3 L Globulin 2.60 Albumin/Globulin 0.88 Ratio Myelocytes % 1 H (Manual) Myelocytes # 0.1 H Ovalocytes 1+ Prothrombin Time 22.7 #H Prothrombin Time 1.8 Ratio INR International 1.99 Normalized Ratio Activated 35.4 H Partial Thromboplast Time Phosphorus Level 4.1 Magnesium Level 2.1 Test 09/24/18 08:02 09/24/18 12:09 09/24/18 17:22 09/24/18 20:47 Bedside Glucose 105 136 97 71 Medications Medication Current Medications IV Flush (NS 3 ml) 3 ml PER PROTOCOL IV ; Start 09/15/18 at 07:30 Ondansetron HCl (Zofran Inj) 4 mg Q6H PRN IV NAUSEA/VOMITING Last administered on 09/19/18 07:53; Admin Dose 4 MG; Start 09/15/18 at 07:30 Acetaminophen (Tylenol Tab) 650 mg Q6H PRN PO .PAIN 1-3 OR TEMP Last a dministered on 09/16/18 21:56; Admin Dose 650 MG; Start 09/15/18 at 07:30 Baclofen (Lioresal) 10 mg BID PO Last administered on 09/23/18 09:45; Admin Dose 10 MG; Start 09/15/18 at 09:00; Status Hold Buspirone HCl (Buspar) 10 mg BID PO Last administered on 09/23/18 11:44; Admin Dose 10 MG; Start 09/15/18 at 09:00; Status Hold Calcium Carbonate (Oyster Shell Calcium) 1.25 gm BID PO Last administered on 09/23/18 11:44; Admin Dose 1.25 GM; Start 09/15/18 at 09:00; Status Hold Clonazepam (Klonopin) 0.5 mg DAILY PRN PO ANXIETY Last administered on 09/23/18 02:04; Admin Dose 0.5 MG; Start 09/15/18 at 07:30; Status Hold Docusate Sodium (Colace) 100 mg BID PO Last administered on 09/23/18 09:43; Admin Dose 100 MG; Start 09/15/18 at 09:00; Status Hold Rifaximin (Xifaxan) 550 mg BID PO Last administered on 09/22/18 21:42; Admin Dose 550 MG; Start 09/15/18 at 09:00; Status Hold Sertraline HCl (Zoloft) 100 mg DAILY PO ; Start 09/15/18 at 09:00; Status Hold Fluticasone/ Vilanterol (Breo Ellipta 200-25 Mcg Inh) 1 inh DAILY INH Last administered on 09/23/18 11:39; Admin Dose 1 INH; Start 09/15/18 at 09:00 Albuterol/ Ipratropium (Duoneb) 3 ml Q3H RESP THERAPY PRN HHN WHEEZING AND SOB Last administered on 09/21/18 21:08; Admin Dose 3 ML; Start 09/15/18 at 08:00 Levalbuterol (Xopenex Neb) 0.63 mg Q4H RESP THERAPY HHN Last administered on 09/22/18 08:06; Admin Dose 0.63 MG; Start 09/15/18 at 17:00 Levalbuterol (Xopenex Neb) 0.63 mg Q2H RESP THERAPY PRN HHN WHEEZING AND SOB; Start 09/15/18 at 14:00 Collagenase (Santyl) 1 applic DAILY TOP Last administered on 09/24/18 12:04; Admin Dose 1 APPLIC; Start 09/16/18 at 15:00 Acetaminophen/ Hydrocodone Bitart ([place] (5/325)) 1 tab Q6H PRN PO MODERATE PAIN LEVEL 4-6 Last administered on 09/23/18 09:38; Admin Dose 1 TAB; Start 09/17/18 at 11:30 Methadone HCl (Methadone Liq) 15 mg Q8 PRN PO SEVERE PAIN Last administered on 09/23/18 23:21; Admin Dose 15 MG; Start 09/17/18 at 18:30 Apixaban (Eliquis) 5 mg BID PO Last administered on 09/23/18 09:45; Admin Dose 5 MG; Start 09/19/18 at 21:00; Status Hold Multivitamins Therapeutic (Theragran) 1 tab DAILY PO Last administered on 09/23/18 09:43; Admin Dose 1 TAB; Start 09/19/18 at 12:00 Ascorbic Acid (Vitamin C) 500 mg DAILY PO Last administered on 09/23/18 09:45; Admin Dose 500 MG; Start 09/19/18 at 12:00; Status Hold Zinc Sulfate (Zinc Sulfate) 220 mg DAILY PO Last administered on 09/22/18 08:50; Admin Dose 220 MG; Start 09/19/18 at 12:00; Status Hold Thiamine HCl (Vitamin B1) 50 mg DAILY PO Last administered on 09/23/18 09:45; Admin Dose 50 MG; Start 09/19/18 at 12:00; Status Hold Simethicone (Mylicon) 80 mg Q6H PRN PO DISTENSION/GAS/BLOATING Last administered on 09/22/18 23:50; Admin Dose 80 MG; Start 09/20/18 at 06:30 Diltiazem HCl (Cardizem Cd) 120 mg DAILY PO Last administered on 09/23/18 11:41; Admin Dose 120 MG; Start 09/20/18 at 09:00; Status Hold Zolpidem Tartrate (Ambien) 5 mg HS PRN PO INSOMNIA Last administered on 09/24 01:16; Admin Dose 5 MG; Start 09/21/18 at 02:00; Status Hold Phenol (Cepastat Lozenge) 1 lozenge Q1H PRN MT SORE THROAT Last administered on 09/22/18 03:32; Admin Dose 1 LOZENGE; Start 09/22/18 at 01:00 Levofloxacin (Levaquin) 500 mg DAILY@06 PO Last administered on 09/23/18at 07:21; Admin Dose 500 MG; Start 09/23/18 at 06:00; Status Hold Metronidazole 100 ml @ 100 mls/hr Q8 IVPB Last administered on 09/23/18 22:03; Admin Dose 100 MLS/HR; Start 09/23/18 at 14:00; Status Hold Prednisone (Prednisone) 40 mg DAILY PO ; Start 09/24/18 at 09:00; Stop 09/28/18 at 09:00 Dextrose/Sodium Chloride 1,000 ml @ 70 mls/hr [id number] IV Last administered on 09/23/18at 23:13; Admin Dose 70 MLS/HR; Start 09/23/18 at 22:30 Insulin Aspart (Novolog Insulin Pen) NOVOLOG *MILD* ALGORI... Q4 SC ; Start 09/24/18 at 01:00 Vancomycin HCl (Vanco Iv Per Pharmacy) VANCOMYCIN PER PHARMACY PER PROTOCOL XX ; Start 09/24/18 at 02:30 Meropenem/Sodium Chloride 50 ml @ 100 mls/hr Q8H IVPB Last administered on 09/24/18at 17:20; Admin Dose 100 MLS/HR; Start 7/27/19 at 02:30 Vancomycin HCl 100 ml @ 100 mls/hr Q24H IVPB ; Start 09/25/18 at 03:00 Hydromorphone HCl (Dilaudid) 0.5 mg Q4H PRN IV SEVERE PAIN LEVEL 7-10 Last administered on 09/24/18at 17:29; Admin Dose 0.5 MG; Start 09/24/18 at 03:00 Lorazepam (Ativan) 0.5 mg Q6H PRN IV ANXIETY Last administered on 09/24/18at 20:51; Admin Dose 0.5 MG; Start 09/24/18 at 03:00 Miscellaneous Information (*Rx Drug Level Order Reminder*) VANCOMYCIN TROUGH LEVEL 0200 ONCE XX ; Start 09/27/18 at 02:00; Stop 09/27/18 at 02:01 Pantoprazole (Protonix Iv) 40 mg BID@06,18 IV Last administered on 09/24/18at 17:28; Admin Dose 40 MG; Start 09/24/18 at 18:00 JESSIKA OREILLY MD Sep 24, 2018 23:18
[2018-09-25] VITALS (7 sets, daily range): BP systolic 114–123; BP diastolic 56–75; PULSE 12–151; RESP 18–20
[2018-09-25] MEDS: INSULIN ASPART [NOVOLOG] 3 ML PEN SC SCH ×6 (01:00→21:00)
[2018-09-25] MEDS: LEVALBUTEROL (NEB) 0.63 MG/3 ML AMP HHN SCH ×6 (01:00→21:35)
[2018-09-25] MEDS: MEROPENEM 1 GM/50ML(PMX) 50 ML IVPB SCH ×3 (02:29→17:49)
[2018-09-25] MEDS: VANCOMYCIN 500 MG (PMX) 100 ML IVPB SCH (02:37)
[2018-09-25] MEDS: DEXTROSE 5%-0.45% NACL 1,000 ML IV SCH ×2 (03:06→17:49)
[2018-09-25] MEDS: HYDROmorphONE 0.5 MG/0.5 ML SYG IV PRN ×2 (04:02→21:07)
[2018-09-25] MEDS: PANTOPRAZOLE 40 MG INJ IV SCH ×2 (04:56→17:49)
[2018-09-25] MEDS: LORAZEPAM 2 MG INJ IV PRN ×2 (06:45→22:31)
[2018-09-25] MEDS: FLUTICASONE/VILANTEROL 200-25 INH DEVICE INH SCH (09:00)
[2018-09-25] MEDS: predniSONE 20 MG TAB PO SCH (09:00)
[2018-09-25] MEDS: MULTIVITAMINS THERAPEUTIC TAB PO SCH (09:00)
[2018-09-25] MEDS: COLLAGENASE 5 GM (UD JAR) TOP SCH (11:47)
[2018-09-25] MEDS: BALSAM PERU/CASTOR OIL 60 GM TUBE TOP SCH ×2 (11:47→21:06)
--- NOTE | 2018-09-25 11:52 | PN ---
Date/Time of Note Date/Time of Note DATE: 09/25/18 TIME: 11:51 Assessment/Plan Lines/Catheters IV Catheter Type (from [facility]): Mid Line Cline in Place (from [facility]): No Assessment/Plan Chief Complaint/Hosp Course 1. Perforated viscous with possible small bowel obstruction with possible bowel inflammation. I had a long d/w patient as she did with hospitalist. She is refusing surgery despite severe consequences up to . Patient is refusing still -abx -supportive -fluids -medical management 2. Hypoxic and hypercapnic respiratory failure -Supplemental oxygen, bronchodilators, as needed BiPAP -Pulmonary consult 3. NSTEMI -medical/cardiac optimization 4. Sepsis, leukocytosis 2nd above -as above 5. Acute renal insufficiency judicious fluid management -avoid nephrotoxic agents 6. Elevated transaminases, history of hep C -Monitor Thank you Subjective 24 Hr Interval Summary Minimal pain. No fevers or chills. No cough. No seizure. No blood per mouth or rectum. Patient still refusing surgery and fully aware of her decision. No dysuria. Labs noted with decreasing WBC. Exam/Review of Systems Vital Signs Vitals Vital Signs Date Temp Pulse Resp B/P (MAP) Pulse Ox O2 O2 Flow FiO2 Time Delivery Rate 09/25/18 108 20 Nasal 2.0 08:55 Cannula 09/25/18 98.0 122/58 98 07:42 (79) Intake and Output 09/24/18 09/24/18 09/25/18 1515:00 23:00 07:00 IntakeIntake Total 350 ml BalanceBalance 350 ml Exam Free Text/Dictation Constitutional: alert, oriented (To self, Time, Situation, Location); No distress Psych: nl mood/affect; No anxiety Head: normocephalic, lacerations Eyes: nl conjunctiva, EOMI, PERRL; No icteric ENMT: nl external ears & nose, mucosa pink and moist Neck: supple, non-tender, jvd Respiratory: normal air movement; No congested cough, No labored breathing Cardiovascular: No regular rate and rhythm, No edema Gastrointestinal: soft, distended (min), tender; No rebound or guarding Musculoskeletal: nl extremities to inspection; No nl gait and stance, No joint tenderness Extremities: normal pulses Results Result Diagram: 09/25/18 1053 09/24/18 0544 JESSIKA OREILLY MD Sep 25, 2018 11:52
--- NOTE | 2018-09-25 13:30 | CONS ---
Consult Date/Type/Reason Admit Date/Time Sep 15, 2018 at 03:32 Initial Consult Date 09/15/18 Type of Consultation: Pulm Requesting Provider: LEOBARDO DC Date/Time of Note DATE: 09/25/18 TIME: 13:29 Subjective 68-year-old female with the past medical history of COPD, history of previous PE, psychiatric disorder, chronic kidney disease, hepatitis C, liver disease who was brought in the ER after noticing dyspnea progressively worse and requires to be on BiPAP. On admission, the patient has been weaned down. On the course of the workup, was noted to have renal failure. She continues to have good urine output since she has been here. cont abd pain. ct showed intraperitoneal free air. continues to refuse further intervention. On LIS on D5 1/ NS @70 cc/hr PHYSICAL EXAMINATION: HEENT: Normocephalic, atraumatic. Pupils are equal, round, reactive to light. Oropharynx has moist mucous membranes. NECK: Supple. HEART: Regular rate and rhythm. LUNGS: Clear to auscultation. ABDOMEN: Soft, nontender, nondistended. Normal bowel sounds. no rebound or guarding. EXTREMITIES: No clubbing, cyanosis or edema. Objective Vitals Vital Signs Date Temp Pulse Resp B/P (MAP) Pulse Ox O2 O2 Flow FiO2 Time Delivery Rate 09/25/18 104 20 Nasal 2.0 12:16 Cannula 09/25/18 98.5 114/56 97 11:51 (75) Intake and Output 09/24/18 09/24/18 09/25/18 1515:00 23:00 07:00 IntakeIntake Total 350 ml BalanceBalance 350 ml Results/Medications Result Diagram: 09/25/18 1053 09/25/18 1053 Results 24 hrs Laboratory Tests Test 09/24/18 17:22 09/24/18 20:47 09/25/18 01:38 09/25/18 04:57 Bedside Glucose 97 71 82 71 Test 09/25/18 08:46 09/25/18 10:53 09/25/18 11:42 Bedside Glucose 71 82 White Blood Count 4.3 #L Red Blood Count 2.96 L Hemoglobin 8.9 L Hematocrit 27.5 L Mean Corpuscular 92.9 Volume Mean Corpuscular 30.1 Hemoglobin Mean Corpuscular 32.4 Hemoglobin Concent Red Cell 15.9 H Distribution Width Platelet Count 298 Mean Platelet Volume 11.0 H Immature 1.400 H Granulocytes % Neutrophils % Segmented 70 Neutrophils % (Manual) Band Neutrophils % 21 H (Manual) Lymphocytes % Lymphocytes % 6 L (Manual) Monocytes % Monocytes % (Manual) 2 Eosinophils % Eosinophils % 1 (Manual) Basophils % Nucleated Red Blood 1 H Cells % Immature 0.060 H Granulocytes # Neutrophils # Neutrophils # 3.0 (Manual) Band Neutrophils # 0.9 H Lymphocytes (Manual) 0.2 L Lymphocytes # Monocytes # Monocytes # (Manual) 0.0 L Eosinophils # Basophils # Nucleated Red Blood Cells # Platelet Estimate NORMAL Platelet Morphology @See below Comment Polychromasia 2+ Anisocytosis 2+ Sodium Level 134 L Potassium Level 3.8 Chloride Level 102 Carbon Dioxide Level 28 Anion Gap 4 L Blood Urea Nitrogen 18 Creatinine 0.70 Est Glomerular > 60 Filtrat Rate mL/min Glucose Level 104 Calcium Level 7.6 L Home Meds Active Scripts Pantoprazole* (Pantoprazole*) 40 Mg Tablet.dr, 40 MG PO DAILY@06 for 14 Days, #14 Prov:RICKIE DALTON MD 06/12/18 Apixaban* (Eliquis*) 5 Mg Tablet, 10 MG PO BID for 30 Days, #60 TAB 10 mg twice daily for 5 days, then 5 mg twice daily Prov:RICKIE DALTON MD 06/12/18 Methadone Hcl* (Methadone*) 5 Mg/5 Ml Solution, 68 MG PO DAILY for 30 Days, ML Prov:STU ORTEZ 04/14/18 Salmeterol Xinaf/Fluticasone* (Advair*) 250-50 Diskus Inhaler, 1 INH INHALATION BID for 30 Days, #1 INHALER Prov:ZHANG WARE NP 02/28/16 Albuterol Sulfate* (Proair HFA*) 8.5 Gm Hfa.aer.ad, 2 PUFF INH Q6 for SHORTNESS OF BREATH for 14 Days, #1 INHALER Prov:ZHANG WARE TABLE MAKER 02/28/16 Reported Medications Sertraline Hcl* (Sertraline Hcl*) 25 Mg Tablet, 25 MG PO DAILY, #30 TAB 09/15/18 Buspirone Hcl* (Buspirone Hcl*) 10 Mg Tab, 10 MG PO BID, TAB 09/15/18 Clonazepam* (Clonazepam*) 0.5 Mg Tablet, 0.5 MG PO DAILY PRN for ANXIETY, TAB 09/15/18 Ipratropium-Albuterol (Ipratropium-Albuterol) 0.5-3 Mg/3 Ml Ampul.neb, 3 ML INHALATION Q6 PRN for WHEEZING AND SOB, #30 VIAL 09/15/18 Carvedilol* (Carvedilol*) 6.25 Mg Tablet, 6.25 MG PO BID, #60 TAB 09/15/18 Cholecalciferol (Vitamin D3) (VITAMIN D-3) 2,000 Unit Capsule, 2000 U PO DAILY for 30 Days 04/30/18 Amlodipine Besylate* (Amlodipine Besylate*) 5 Mg Tablet, 5 MG PO DAILY for 30 Days, #30 04/30/18 Baclofen* (Baclofen*) 10 Mg Tablet, 10 MG PO BID 04/30/18 Calcium Carbonate ([id number]) 500 Mg Tablet, 500 MG PO BID, TAB 04/30/18 Medications Current Medications IV Flush (NS 3 ml) 3 ml PER PROTOCOL IV ; Start 09/15/18 at 07:30 Ondansetron HCl (Zofran Inj) 4 mg Q6H PRN IV NAUSEA/VOMITING Last administered on 09/19/18at 07:53; Admin Dose 4 MG; Start 09/15/18 at 07:30 Acetaminophen (Tylenol Tab) 650 mg Q6H PRN PO .PAIN 1-3 OR TEMP Last administered on 09/16/18at 21:56; Admin Dose 650 MG; Start 09/15/18 at 07:30 Baclofen (Lioresal) 10 mg BID PO Last administered on 09/23/18at 09:45; Admin Dose 10 MG; Start 09/15/18 at 09:00; Status Hold Buspirone HCl (Buspar) 10 mg BID PO Last administered on 09/23/18at 11:44; Admin Dose 10 MG; Start 09/15/18 at 09:00; Status Hold Calcium Carbonate (Oyster Shell Calcium) 1.25 gm BID PO Last administered on 09/23/18at 11:44; Admin Dose 1.25 GM; Start 09/15/18 at 09:00; Status Hold Clonazepam (Klonopin) 0.5 mg DAILY PRN PO ANXIETY Last administered on 09/23/18 02:04; Admin Dose 0.5 MG; Start 09/15/18 at 07:30; Status Hold Docusate Sodium (Colace) 100 mg BID PO Last administered on 09/23/18 09:43; Admin Dose 100 MG; Start 09/15/18 at 09:00; Status Hold Rifaximin (Xifaxan) 550 mg BID PO Last administered on 09/22/18 21:42; Admin Dose 550 MG; Start 09/15/18 at 09:00; Status Hold Sertraline HCl (Zoloft) 100 mg DAILY PO ; Start 09/15/18 at 09:00; Status Hold Fluticasone/ Vilanterol (Breo Ellipta 200-25 Mcg Inh) 1 inh DAILY INH Last administered on 09/23/18 11:39; Admin Dose 1 INH; Start 09/15/18 at 09:00 Albuterol/ Ipratropium (Duoneb) 3 ml Q3H RESP THERAPY PRN HHN WHEEZING AND SOB Last administered on 09/21/18 21:08; Admin Dose 3 ML; Start 09/15/18 at 08:00 Levalbuterol (Xopenex Neb) 0.63 mg Q4H RESP THERAPY HHN Last administered on 09/25/18 12:11; Admin Dose 0.63 MG; Start 09/15/18 at 17:00 Levalbuterol (Xopenex Neb) 0.63 mg Q2H RESP THERAPY PRN HHN WHEEZING AND SOB; Start 09/15/18 at 14:00 Collagenase (Santyl) 1 applic DAILY TOP Last administered on 09/25/18 11:47; Admin Dose 1 APPLIC; Start 09/16/18 at 15:00 Acetaminophen/ Hydrocodone Bitart ([place] (5/325)) 1 tab Q6H PRN PO MODERATE PAIN LEVEL 4-6 Last administered on 09/23/18 09:38; Admin Dose 1 TAB; Start 09/17/18 at 11:30 Methadone HCl (Methadone Liq) 15 mg Q8 PRN PO SEVERE PAIN Last administered on 09/23/18 23:21; Admin Dose 15 MG; Start 09/17/18 at 18:30 Apixaban (Eliquis) 5 mg BID PO Last administered on 09/23/18 09:45; Admin Dose 5 MG; Start 09/19/18 at 21:00; Status Hold Multivitamins Therapeutic (Theragran) 1 tab DAILY PO Last administered on 09/23/18 09:43; Admin Dose 1 TAB; Start 09/19/18 at 12:00 Ascorbic Acid (Vitamin C) 500 mg DAILY PO Last administered on 09/23/18 09:45; Admin Dose 500 MG; Start 09/19/18 at 12:00; Status Hold Zinc Sulfate (Zinc Sulfate) 220 mg DAILY PO Last administered on 09/22/18 08:50; Admin Dose 220 MG; Start 09/19/18 at 12:00; Status Hold Thiamine HCl (Vitamin B1) 50 mg DAILY PO Last administered on 09/23/18 09:45; Admin Dose 50 MG; Start 09/19/18 at 12:00; Status Hold Simethicone (Mylicon) 80 mg Q6H PRN PO DISTENSION/GAS/BLOATING Last administered on 09/22/18 23:50; Admin Dose 80 MG; Start 09/20/18 at 06:30 Diltiazem HCl (Cardizem Cd) 120 mg DAILY PO Last administered on 09/23/18 11:41; Admin Dose 120 MG; Start 09/20/18 at 09:00; Status Hold Zolpidem Tartrate (Ambien) 5 mg HS PRN PO INSOMNIA Last administered on 09/24/18 01:16; Admin Dose 5 MG; Start 09/21/18 at 02:00; Status Hold Phenol (Cepastat Lozenge) 1 lozenge Q1H PRN MT SORE THROAT Last administered on 09/22/18 03:32; Admin Dose 1 LOZENGE; Start 09/22/18 at 01:00 Levofloxacin (Levaquin) 500 mg DAILY@06 PO Last administered on 09/23/18 07:21; Admin Dose 500 MG; Start 09/23/18 at 06:00; Status Hold Metronidazole 100 ml @ 100 mls/hr Q8 IVPB Last administered on 09/23/18 22:03; Admin Dose 100 MLS/HR; Start 09/23/18 at 14:00; Status Hold Prednisone (Prednisone) 40 mg DAILY PO ; Start 09/24/18 at 09:00; Stop 09/28/18 at 09:00 Dextrose/Sodium Chloride 1,000 ml @ 70 mls/hr [id number] IV Last administered on 09/23/18at 23:13; Admin Dose 70 MLS/HR; Start 09/23/18 at 22:30 Insulin Aspart (Novolog Insulin Pen) NOVOLOG *MILD* ALGORI... Q4 SC ; Start 09/24/18 at 01:00 Vancomycin HCl (Vanco Iv Per Pharmacy) VANCOMYCIN PER PHARMACY PER PROTOCOL XX ; Start 09/24/18 at 02:30 Meropenem/Sodium Chloride 50 ml @ 100 mls/hr Q8H IVPB Last administered on 09/25/18at 11:47; Admin Dose 100 MLS/HR; Start 09/24/18 at 02:30 Vancomycin HCl 100 ml @ 100 mls/hr Q24H IVPB Last administered on 09/25/18at 02:37; Admin Dose 100 MLS/HR; Start 09/25/18 at 03:00 Hydromorphone HCl (Dilaudid) 0.5 mg Q4H PRN IV SEVERE PAIN LEVEL 7-10 Last administered on 09/25/18at 04:02; Admin Dose 0.5 MG; Start 09/24/18 at 03:00 Lorazepam (Ativan) 0.5 mg Q6H PRN IV ANXIETY Last administered on 09/25/18at 06:45; Admin Dose 0.5 MG; Start 09/24/18 at 03:00 Miscellaneous Information (*Rx Drug Level Order Reminder*) VANCOMYCIN TROUGH LEVEL 0200 ONCE XX ; Start 09/27/18 at 02:00; Stop 09/27/18 at 02:01 Pantoprazole (Protonix Iv) 40 mg BID@06,18 IV Last administered on 09/25/18at 04:56; Admin Dose 40 MG; Start 09/24/18 at 18:00 Assessment/Plan Hospital Course (Demo Recall) 1. Acute renal insufficiency, possibly vasomotor nephropathy, rule out acute tubular necrosis - stabilized and improving at good interval. restarted ivf - All medications are dosed appropriately for renal function. - watch for diuretic phase of russ with electrolyte wasting. 2. Acute respiratory failure, likely related to chronic obstructive pulmonary disease exacerbation. bronchodilators, pulmonary followup. 3. Non-ST myocardial infarction, likely demand ischemia type 2. Cardiology is following. Medication optimized. 4. Sepsis, unknown source, possibly evolving pneumonia although impressed by the chest x-ray. Continue to monitor. sudden surge in WBC although patient on steroids. 5. Elevated transaminases with the history of hepatitis C. 6. Hyponatremia, likely related to total body water deficit. corrected wth iv. now trending again. 7. anemia- downtrending. further decreased. fu stool ob. on famotidine. concern over duodenal ulcer. sp prbc 8. abd pain- ct suggested perf viscus. surg consulted. ng to LIS. started IVF. G&V discussion. CHELSIE RAMÍREZ MD Sep 25, 2018 13:30
--- NOTE | 2018-09-25 14:41 | PN ---
Date/Time of Note Date/Time of Note DATE: 09/25/18 TIME: 14:40 Assessment/Plan VTE Prophylaxis Risk score (from [facility])>0 risk: 6 SCD applied (from [facility]): Yes Pharmacological prophylaxis: NA/contraindicated Pharm contraindication: other Lines/Catheters IV Catheter Type (from [facility]): Mid Line Urinary Cath still in place: No Assessment/Plan Hospital Course 68-year-old female history COPD, PE May 2018, CKD, who presents with: #Perforated viscus likely secondary to duodenal ulcer CT does show perforated viscus, patient has refused surgical intervention #Abdominal pain-improving -CT abdomen shows small bowel obstruction and perforated viscus -NG tube has been placed -Patient refusing surgery - She has been having bloating, gas-like abdominal pain with diarrhea since admission. #Anemia - Hgb drop 12.5 to 7.0 over eight day hospital course. - Daily diarrhea and positive fecal occult blood -GI consultation appreciated, hold off on EGD at this time # Hypoxic and hypercapnic respiratory failure: Resolved. - For now continue supplemental oxygen, bronchodilators, broad-spectrum antibiotics - PE in May 2018, currently holding Eliquis due to Hgb drop. # NSTEMI-First troponin 0.57. It was 0.407 in May of this year when she was diagnosed with PE, at that time she was diagnosed with a type II event. - Trops have now normalized. # Acute renal insufficiency: - Resolved Prophylaxis: SCDs Result Diagram: 09/25/18 1053 09/25/18 1053 Results 24hrs Laboratory Tests Test 09/24/18 17:22 09/24/18 20:47 09/25/18 01:38 09/25/18 04:57 Bedside Glucose 97 71 82 71 Test 09/25/18 08:46 09/25/18 10:53 09/25/18 11:42 Bedside Glucose 71 82 White Blood Count 4.3 #L Red Blood Count 2.96 L Hemoglobin 8.9 L Hematocrit 27.5 L Mean Corpuscular 92.9 Volume Mean Corpuscular 30.1 Hemoglobin Mean Corpuscular 32.4 Hemoglobin Concent Red Cell 15.9 H Distribution Width Platelet Count 298 Mean Platelet Volume 11.0 H Immature 1.400 H Granulocytes % Neutrophils % Segmented 70 Neutrophils % (Manual) Band Neutrophils % 21 H (Manual) Lymphocytes % Lymphocytes % 6 L (Manual) Monocytes % Monocytes % (Manual) 2 Eosinophils % Eosinophils % 1 (Manual) Basophils % Nucleated Red Blood 1 H Cells % Immature 0.060 H Granulocytes # Neutrophils # Neutrophils # 3.0 (Manual) Band Neutrophils # 0.9 H Lymphocytes (Manual) 0.2 L Lymphocytes # Monocytes # Monocytes # (Manual) 0.0 L Eosinophils # Basophils # Nucleated Red Blood Cells # Platelet Estimate NORMAL Platelet Morphology @See below Comment Polychromasia 2+ Anisocytosis 2+ Sodium Level 134 L Potassium Level 3.8 Chloride Level 102 Carbon Dioxide Level 28 Anion Gap 4 L Blood Urea Nitrogen 18 Creatinine 0.70 Est Glomerular > 60 Filtrat Rate mL/min Glucose Level 104 Calcium Level 7.6 L Subjective 24 Hr Interval Summary Constitutional: no complaints Exam/Review of Systems Exam Vitals Vital Signs Date Temp Pulse Resp B/P (MAP) Pulse Ox O2 O2 Flow FiO2 Time Delivery Rate 09/25/18 104 20 Nasal 2.0 12:16 Cannula 09/25/18 98.5 114/56 97 11:51 (75) Intake and Output 09/24/18 09/24/18 09/25/18 1515:00 23:00 07:00 IntakeIntake Total 350 ml BalanceBalance 350 ml Constitutional: alert, oriented Respiratory: clear to auscultation Cardiovascular: regular rate and rhythm Gastrointestinal: soft; No distended Musculoskeletal: nl extremities to inspection Results Results 24hrs Laboratory Tests Test 09/24/18 17:22 09/24/18 20:47 09/25/18 01:38 09/25/18 04:57 Bedside Glucose 97 71 82 71 Test 09/25/18 08:46 09/25/18 10:53 09/25/18 11:42 Bedside Glucose 71 82 White Blood Count 4.3 #L Red Blood Count 2.96 L Hemoglobin 8.9 L Hematocrit 27.5 L Mean Corpuscular 92.9 Volume Mean Corpuscular 30.1 Hemoglobin Mean Corpuscular 32.4 Hemoglobin Concent Red Cell 15.9 H Distribution Width Platelet Count 298 Mean Platelet Volume 11.0 H Immature 1.400 H Granulocytes % Neutrophils % Segmented 70 Neutrophils % (Manual) Band Neutrophils % 21 H (Manual) Lymphocytes % Lymphocytes % 6 L (Manual) Monocytes % Monocytes % (Manual) 2 Eosinophils % Eosinophils % 1 (Manual) Basophils % Nucleated Red Blood 1 H Cells % Immature 0.060 H Granulocytes # Neutrophils # Neutrophils # 3.0 (Manual) Band Neutrophils # 0.9 H Lymphocytes (Manual) 0.2 L Lymphocytes # Monocytes # Monocytes # (Manual) 0.0 L Eosinophils # Basophils # Nucleated Red Blood Cells # Platelet Estimate NORMAL Platelet Morphology @See below Comment Polychromasia 2+ Anisocytosis 2+ Sodium Level 134 L Potassium Level 3.8 Chloride Level 102 Carbon Dioxide Level 28 Anion Gap 4 L Blood Urea Nitrogen 18 Creatinine 0.70 Est Glomerular > 60 Filtrat Rate mL/min Glucose Level 104 Calcium Level 7.6 L Medications Medication Current Medications IV Flush (NS 3 ml) 3 ml PER PROTOCOL IV ; Start 09/15/18 at 07:30 Ondansetron HCl (Zofran Inj) 4 mg Q6H PRN IV NAUSEA/VOMITING Last administered on 09/19/18 07:53; Admin Dose 4 MG; Start 09/15/18 at 07:30 Acetaminophen (Tylenol Tab) 650 mg Q6H PRN PO .PAIN 1-3 OR TEMP Last administered on 09/16/18 21:56; Admin Dose 650 MG; Start 09/15/18 at 07:30 Baclofen (Lioresal) 10 mg BID PO Last administered on 09/23/18 09:45; Admin Dose 10 MG; Start 09/15/18 at 09:00; Status Hold Buspirone HCl (Buspar) 10 mg BID PO Last administered on 09/23/18 11:44; Admin Dose 10 MG; Start 09/15/18 at 09:00; Status Hold Calcium Carbonate (Oyster Shell Calcium) 1.25 gm BID PO Last administered on 09/23/18 11:44; Admin Dose 1.25 GM; Start 09/15/18 at 09:00; Status Hold Clonazepam (Klonopin) 0.5 mg DAILY PRN PO ANXIETY Last administered on 09/23/18 02:04; Admin Dose 0.5 MG; Start 09/15/18 at 07:30; Status Hold Docusate Sodium (Colace) 100 mg BID PO Last administered on 09/23/18 09:43; Admin Dose 100 MG; Start 09/15/18 at 09:00; Status Hold Rifaximin (Xifaxan) 550 mg BID PO Last administered on 09/22/18 21:42; Admin Dose 550 MG; Start 09/15/18 at 09:00; Status Hold Sertraline HCl (Zoloft) 100 mg DAILY PO ; Start 09/15/18 at 09:00; Status Hold Fluticasone/ Vilanterol (Breo Ellipta 200-25 Mcg Inh) 1 inh DAILY INH Last administered on 09/23/18 11:39; Admin Dose 1 INH; Start 09/15/18 at 09:00 Albuterol/ Ipratropium (Duoneb) 3 ml Q3H RESP THERAPY PRN HHN WHEEZING AND SOB Last administered on 09/21/18 21:08; Admin Dose 3 ML; Start 09/15/18 at 08:00 Levalbuterol (Xopenex Neb) 0.63 mg Q4H RESP THERAPY HHN Last administered on 09/25/18 12:11; Admin Dose 0.63 MG; Start 09/15/18 at 17:00 Levalbuterol (Xopenex Neb) 0.63 mg Q2H RESP THERAPY PRN HHN WHEEZING AND SOB; Start 09/15/18 at 14:00 Collagenase (Santyl) 1 applic DAILY TOP Last administered on 09/25/18 11:47; Admin Dose 1 APPLIC; Start 09/16/18 at 15:00 Acetaminophen/ Hydrocodone Bitart (Beatty (5/325)) 1 tab Q6H PRN PO MODERATE PAIN LEVEL 4-6 Last administered on 09/23/18 09:38; Admin Dose 1 TAB; Start 09/17/18 at 11:30 Methadone HCl (Methadone Liq) 15 mg Q8 PRN PO SEVERE PAIN Last administered on 09/23/18 23:21; Admin Dose 15 MG; Start 09/17/18 at 18:30 Apixaban (Eliquis) 5 mg BID PO Last administered on 09/23/18 09:45; Admin Dose 5 MG; Start 09/19/18 at 21:00; Status Hold Multivitamins Therapeutic (Theragran) 1 tab DAILY PO Last administered on 09/23/18 09:43; Admin Dose 1 TAB; Start 09/19/18 at 12:00 Ascorbic Acid (Vitamin C) 500 mg DAILY PO Last administered on 09/23/18 09:45; Admin Dose 500 MG; Start 09/19/18 at 12:00; Status Hold Zinc Sulfate (Zinc Sulfate) 220 mg DAILY PO Last administered on 09/22/18at 08:50; Admin Dose 220 MG; Start 09/19/18 at 12:00; Status Hold Thiamine HCl (Vitamin B1) 50 mg DAILY PO Last administered on 09/23/18at 09:45; Admin Dose 50 MG; Start 09/19/18 at 12:00; Status Hold Simethicone (Mylicon) 80 mg Q6H PRN PO DISTENSION/GAS/BLOATING Last ad ministered on 09/22/18at 23:50; Admin Dose 80 MG; Start 09/20/18 at 06:30 Diltiazem HCl (Cardizem Cd) 120 mg DAILY PO Last administered on 09/23/18at 11:41; Admin Dose 120 MG; Start 09/20/18 at 09:00; Status Hold Zolpidem Tartrate (Ambien) 5 mg HS PRN PO INSOMNIA Last administered on 09/24/18at 01:16; Admin Dose 5 MG; Start 09/21/18 at 02:00; Status Hold Phenol (Cepastat Lozenge) 1 lozenge Q1H PRN MT SORE THROAT Last administered on 09/22/18at 03:32; Admin Dose 1 LOZENGE; Start 09/22/18 at 01:00 Levofloxacin (Levaquin) 500 mg DAILY@06 PO Last administered on 09/23/18at 07:21; Admin Dose 500 MG; Start 09/23/18 at 06:00; Status Hold Metronidazole 100 ml @ 100 mls/hr Q8 IVPB Last administered on 09/23/18at 22:03; Admin Dose 100 MLS/HR; Start 09/23/18 at 14:00; Status Hold Prednisone (Prednisone) 40 mg DAILY PO ; Start 09/24/18 at 09:00; Stop 09/28/18 at 09:00 Dextrose/Sodium Chloride 1,000 ml @ 70 mls/hr [id number] IV Last administered on 09/23/18at 23:13; Admin Dose 70 MLS/HR; Start 09/23/18 at 22:30 Insulin Aspart (Novolog Insulin Pen) NOVOLOG *MILD* ALGORI... Q4 SC ; Start 09/24/18 at 01:00 Vancomycin HCl (Vanco Iv Per Pharmacy) VANCOMYCIN PER PHARMACY PER PROTOCOL XX ; Start 09/24/18 at 02:30 Meropenem/Sodium Chloride 50 ml @ 100 mls/hr Q8H IVPB Last administered on 09/25/18at 11:47; Admin Dose 100 MLS/HR; Start 09/24/18 at 02:30 Vancomycin HCl 100 ml @ 100 mls/hr Q24H IVPB Last administered on 09/25/18at 02:37; Admin Dose 100 MLS/HR; Start 09/25/18 at 03:00 Hydromorphone HCl (Dilaudid) 0.5 mg Q4H PRN IV SEVERE PAIN LEVEL 7-10 Last administered on 09/25/18at 04:02; Admin Dose 0.5 MG; Start 09/24/18 at 03:00 Lorazepam (Ativan) 0.5 mg Q6H PRN IV ANXIETY Last administered on 09/25/18at 06:45; Admin Dose 0.5 MG; Start 09/24/18 at 03:00 Miscellaneous Information (*Rx Drug Level Order Reminder*) VANCOMYCIN TROUGH LEVEL 0200 ONCE XX ; Start 09/27/18 at 02:00; Stop 09/27/18 at 02:01 Pantoprazole (Protonix Iv) 40 mg BID@06,18 IV Last administered on 09/25/18at 04:56; Admin Dose 40 MG; Start 09/24/18 at 18:00 DENZEL HOFFMANN Sep 25, 2018 14:41
--- NOTE | 2018-09-25 14:46 | PN ---
Date/Time of Note Date/Time of Note DATE: 09/25/18 TIME: 14:35 Assessment/Plan VTE Prophylaxis Risk score (from Ns)>0 risk: 6 SCD applied (from Ns): Yes Pharmacological prophylaxis: heparin Lines/Catheters IV [facility]ter [facility]from [facility] Mid Line Urinary Cath still in place: No Assessment/Plan Assessment/Plan Assessment: Perforated viscus with free air on CT scan, likely perforated duodenal ulcer. Colitis on CT scan Positive FOBT, possibly secondary to GI bleeding Anemia COPD CKD Hx of PE Plan: Patient is refusing surgical interventions Continue NG tube to low intermittent suction per surgery EGD/colonoscopy once the patient recovers Continue Protonix BID Strict NPO Continue IV fluids, may need to consider TPN Monitor H/H and transfuse for hgb less 7.5 Patient seen in collaboration with Dr. Campos. Subjective: Patient states abdominal pain is improving. NG tube output is green in color 400 cc today. Patient is still declining the surgery however she states she might have to have it done. PHYSICAL EXAMINATION: GENERAL: Well developed, well nourished, alert & oriented x 3, in no acute distress SKIN: No lesions, coccyx pressure ulcer, no stigmata chronic liver disease, no evidence of bleeding diathesis LYMPHATIC: No palpable lymphadenopathy. HEAD: Normocephalic, atraumatic, no tenderness. EYES: Pupils equal reactive to light and accommodation, full extraocular m ovements, sclera clear, non-icteric, no discharge. EARS/NOSE AND THROAT: Ears normal, nose normal, oropharynx normal, oral membranes well hydrated without lesions. NG tube to low intermittent suction. NECK: Supple, no masses, thyroid normal, JVP within normal limits, carotids normal without bruits. CHEST: Inspection within normal limits. CARDIOVASCULAR: Heart: Regular rate and rhythm, no murmurs, gallops or rubs. Peripheral pulses present within normal limits, no cyanosis, clubbing or edemas. No pulsatile abdominal mass RESPIRATORY: Lungs clear to auscultation and percussion, no wheezing, no rubs GASTROINTESTINAL AND LIVER: Abdomen: Soft, mild upper abdominal tenderness, distended, no hernias, no masses, no organomegaly, no ascites, no guarding, no rebound tenderness, normoactive bowel sounds. Rectal: Deferred. GENITOURINARY: Female genitalia within normal limits. EXTREMITIES: No cyanosis, clubbing or edema. Result Diagram: 09/25/18 1053 09/25/18 1053 Results 24hrs Laboratory Tests Test 09/24/18 17:22 09/24/18 20:47 09/25/18 01:38 09/25/18 04:57 Bedside Glucose 97 71 82 71 Test 09/25/18 08:46 09/25/18 10:53 09/25/18 11:42 Bedside Glucose 71 82 White Blood Count 4.3 #L Red Blood Count 2.96 L Hemoglobin 8.9 L Hematocrit 27.5 L Mean Corpuscular 92.9 Volume Mean Corpuscular 30.1 Hemoglobin Mean Corpuscular 32.4 Hemoglobin Concent Red Cell 15.9 H Distribution Width Platelet Count 298 Mean Platelet Volume 11.0 H Immature 1.400 H Granulocytes % Neutrophils % Segmented 70 Neutrophils % (Manual) Band Neutrophils % 21 H (Manual) Lymphocytes % Lymphocytes % 6 L (Manual) Monocytes % Monocytes % (Manual) 2 Eosinophils % Eosinophils % 1 (Manual) Basophils % Nucleated Red Blood 1 H Cells % Immature 0.060 H Granulocytes # Neutrophils # Neutrophils # 3.0 (Manual) Band Neutrophils # 0.9 H Lymphocytes (Manual) 0.2 L Lymphocytes # Monocytes # Monocytes # (Manual) 0.0 L Eosinophils # Basophils # Nucleated Red Blood Cells # Platelet Estimate NORMAL Platelet Morphology @See below Comment Polychromasia 2+ Anisocytosis 2+ Sodium Level 134 L Potassium Level 3.8 Chloride Level 102 Carbon Dioxide Level 28 Anion Gap 4 L Blood Urea Nitrogen 18 Creatinine 0.70 Est Glomerular > 60 Filtrat Rate mL/min Glucose Level 104 Calcium Level 7.6 L CC: JONELLE CAMPOS MD ; Exam/Review of Systems Exam Vitals Vital Signs Date Temp Pulse Resp B/P (MAP) Pulse Ox O2 O2 Flow FiO2 Time Delivery Rate 09/25/18 104 20 Nasal 2.0 12:16 Cannula 09/25/18 98.5 114/56 97 11:51 (75) Intake and Output 09/24/18 09/24/18 09/25/18 1515:00 23:00 07:00 IntakeIntake Total 350 ml BalanceBalance 350 ml Results Results 24hrs Laboratory Tests Test 09/24/18 17:22 09/24/18 20:47 09/25/18 01:38 09/25/18 04:57 Bedside Glucose 97 71 82 71 Test 09/25/18 08:46 09/25/18 10:53 09/25/18 11:42 Bedside Glucose 71 82 White Blood Count 4.3 #L Red Blood Count 2.96 L Hemoglobin 8.9 L Hematocrit 27.5 L Mean Corpuscular 92.9 Volume Mean Corpuscular 30.1 Hemoglobin Mean Corpuscular 32.4 Hemoglobin Concent Red Cell 15.9 H Distribution Width Platelet Count 298 Mean Platelet Volume 11.0 H Immature 1.400 H Granulocytes % Neutrophils % Segmented 70 Neutrophils % (Manual) Band Neutrophils % 21 H (Manual) Lymphocytes % Lymphocytes % 6 L (Manual) Monocytes % Monocytes % (Manual) 2 Eosinophils % Eosinophils % 1 (Manual) Basophils % Nucleated Red Blood 1 H Cells % Immature 0.060 H Granulocytes # Neutrophils # Neutrophils # 3.0 (Manual) Band Neutrophils # 0.9 H Lymphocytes (Manual) 0.2 L Lymphocytes # Monocytes # Monocytes # (Manual) 0.0 L Eosinophils # Basophils # Nucleated Red Blood Cells # Platelet Estimate NORMAL Platelet Morphology @See below Comment Polychromasia 2+ Anisocytosis 2+ Sodium Level 134 L Potassium Level 3.8 Chloride Level 102 Carbon Dioxide Level 28 Anion Gap 4 L Blood Urea Nitrogen 18 Creatinine 0.70 Est Glomerular > 60 Filtrat Rate mL/min Glucose Level 104 Calcium Level 7.6 L Medications Medication Current Medications IV Flush (NS 3 ml) 3 ml PER PROTOCOL IV ; Start 09/15/18 at 07:30 Ondansetron HCl (Zofran Inj) 4 mg Q6H PRN IV NAUSEA/VOMITING Last administered on 09/19/18at 07:53; Admin Dose 4 MG; Start 09/15/18 at 07:30 Acetaminophen (Tylenol Tab) 650 mg Q6H PRN PO .PAIN 1-3 OR TEMP Last adminis tered on 09/16/18at 21:56; Admin Dose 650 MG; Start 09/15/18 at 07:30 Baclofen (Lioresal) 10 mg BID PO Last administered on 09/23/18at 09:45; Admin Dose 10 MG; Start 09/15/18 at 09:00; Status Hold Buspirone HCl (Buspar) 10 mg BID PO Last administered on 09/23/18at 11:44; Admin Dose 10 MG; Start 09/15/18 at 09:00; Status Hold Calcium Carbonate (Oyster Shell Calcium) 1.25 gm BID PO Last administered on 09/23/18 11:44; Admin Dose 1.25 GM; Start 09/15/18 at 09:00; Status Hold Clonazepam (Klonopin) 0.5 mg DAILY PRN PO ANXIETY Last administered on 09/23/18 02:04; Admin Dose 0.5 MG; Start 09/15/18 at 07:30; Status Hold Docusate Sodium (Colace) 100 mg BID PO Last administered on 09/23/18 09:43; Admin Dose 100 MG; Start 09/15/18 at 09:00; Status Hold Rifaximin (Xifaxan) 550 mg BID PO Last administered on 09/22/18 21:42; Admin Dose 550 MG; Start 09/15/18 at 09:00; Status Hold Sertraline HCl (Zoloft) 100 mg DAILY PO ; Start 09/15/18 at 09:00; Status Hold Fluticasone/ Vilanterol (Breo Ellipta 200-25 Mcg Inh) 1 inh DAILY INH Last administered on 09/23/18 11:39; Admin Dose 1 INH; Start 09/15/18 at 09:00 Albuterol/ Ipratropium (Duoneb) 3 ml Q3H RESP THERAPY PRN HHN WHEEZING AND SOB Last administered on 09/21/18 21:08; Admin Dose 3 ML; Start 09/15/18 at 08:00 Levalbuterol (Xopenex Neb) 0.63 mg Q4H RESP THERAPY HHN Last administered on 09/25/18 12:11; Admin Dose 0.63 MG; Start 09/15/18 at 17:00 Levalbuterol (Xopenex Neb) 0.63 mg Q2H RESP THERAPY PRN HHN WHEEZING AND SOB; Start 09/15/18 at 14:00 Collagenase (Santyl) 1 applic DAILY TOP Last administered on 09/25/18 11:47; Admin Dose 1 APPLIC; Start 09/16/18 at 15:00 Acetaminophen/ Hydrocodone Bitart ([place] (5/325)) 1 tab Q6H PRN PO MODERATE PAIN LEVEL 4-6 Last administered on 09/23/18 09:38; Admin Dose 1 TAB; Start 09/17/18 at 11:30 Methadone HCl (Methadone Liq) 15 mg Q8 PRN PO SEVERE PAIN Last administered on 09/23/18 23:21; Admin Dose 15 MG; Start 09/17/18 at 18:30 Apixaban (Eliquis) 5 mg BID PO Last administered on 09/23/18 09:45; Admin Dose 5 MG; Start 09/19/18 at 21:00; Status Hold Multivitamins Therapeutic (Theragran) 1 tab DAILY PO Last administered on 09/23/18 09:43; Admin Dose 1 TAB; Start 09/19/18 at 12:00 Ascorbic Acid (Vitamin C) 500 mg DAILY PO Last administered on 09/23/18 09:45; Admin Dose 500 MG; Start 09/19/18 at 12:00; Status Hold Zinc Sulfate (Zinc Sulfate) 220 mg DAILY PO Last administered on 09/22/18 08:50; Admin Dose 220 MG; Start 09/19/18 at 12:00; Status Hold Thiamine HCl (Vitamin B1) 50 mg DAILY PO Last administered on 09/23/18 09:45; Admin Dose 50 MG; Start 09/19/18 at 12:00; Status Hold Simethicone (Mylicon) 80 mg Q6H PRN PO DISTENSION/GAS/BLOATING Last administered on 09/22/18 23:50; Admin Dose 80 MG; Start 09/20/18 at 06:30 Diltiazem HCl (Cardizem Cd) 120 mg DAILY PO Last administered on 09/23/18 11:41; Admin Dose 120 MG; Start 09/20/18 at 09:00; Status Hold Zolpidem Tartrate (Ambien) 5 mg HS PRN PO INSOMNIA Last administered on 09/24/18 01:16; Admin Dose 5 MG; Start 09/21/18 at 02:00; Status Hold Phenol (Cepastat Lozenge) 1 lozenge Q1H PRN MT SORE THROAT Last administered on 09/22/18 03:32; Admin Dose 1 LOZENGE; Start 09/22/18 at 01:00 Levofloxacin (Levaquin) 500 mg DAILY@06 PO Last administered on 09/23/18 07:21; Admin Dose 500 MG; Start 09/23/18 at 06:00; Status Hold Metronidazole 100 ml @ 100 mls/hr Q8 IVPB Last administered on 09/23/18 22:03; Admin Dose 100 MLS/HR; Start 09/23/18 at 14:00; Status Hold Prednisone (Prednisone) 40 mg DAILY PO ; Start 09/24/18 at 09:00; Stop 09/28/18 at 09:00 Dextrose/Sodium Chloride 1,000 ml @ 70 mls/hr [id number] IV Last administered on 09/23/18at 23:13; Admin Dose 70 MLS/HR; Start 09/23/18 at 22:30 Insulin Aspart (Novolog Insulin Pen) NOVOLOG *MILD* ALGORI... Q4 SC ; Start 08/30 09/16 at 01:00 Vancomycin HCl (Vanco Iv Per Pharmacy) VANCOMYCIN PER PHARMACY PER PROTOCOL XX ; Start 09/24/18 at 02:30 Meropenem/Sodium Chloride 50 ml @ 100 mls/hr Q8H IVPB Last administered on 09/25/18at 11:47; Admin Dose 100 MLS/HR; Start 09/24/18 at 02:30 Vancomycin HCl 100 ml @ 100 mls/hr Q24H IVPB Last administered on 09/25/18at 02:37; Admin Dose 100 MLS/HR; Start 09/25/18 at 03:00 Hydromorphone HCl (Dilaudid) 0.5 mg Q4H PRN IV SEVERE PAIN LEVEL 7-10 Last administered on 09/25/18at 04:02; Admin Dose 0.5 MG; Start 09/24/18 at 03:00 Lorazepam (Ativan) 0.5 mg Q6H PRN IV ANXIETY Last administered on 09/25/18at 06:45; Admin Dose 0.5 MG; Start 09/24/18 at 03:00 Miscellaneous Information (*Rx Drug Level Order Reminder*) VANCOMYCIN TROUGH LEVEL 0200 ONCE XX ; Start 09/27/18 at 02:00; Stop 09/27/18 at 02:01 Pantoprazole (Protonix Iv) 40 mg BID@06,18 IV Last administered on 09/25/18at 04:56; Admin Dose 40 MG; Start 09/24/18 at 18:00 KRIS BAKER NP Sep 25, 2018 14:46
--- NOTE | 2018-09-25 16:16 | CONS ---
Consult Date/Type/Reason Admit Date/Time Sep 15, 2018 at 03:32 Initial Consult Date 09/24/18 Type of Consultation: Pulm Requesting Provider: LEOBARDO DC Date/Time of Note DATE: 09/25/18 TIME: 16:14 Subjective No events overnight. no c/o. Objective Vitals Vital Signs Date Temp Pulse Resp B/P (MAP) Pulse Ox O2 O2 Flow FiO2 Time Delivery Rate 09/25/18 104 20 Nasal 2.0 12:16 Cannula 09/25/18 98.5 114/56 97 11:51 (75) Intake and Output 09/24/18 09/24/18 09/25/18 1515:00 23:00 07:00 IntakeIntake Total 350 ml BalanceBalance 350 ml Exam NECK: Supple. JVD is not elevated. CARDIAC: S1, S2, no added sounds or murmurs. CHEST: Diminished air entry bilaterally. ABDOMEN: Distended, mild TTP No guarding or rebound. EXTREMITIES: No cyanosis, clubbing, 1+ edema. NEUROLOGIC: Grossly intact Results/Medications Result Diagram: 09/25/18 1053 09/25/18 1053 Results 24 hrs Laboratory Tests Test 09/24/18 17:22 09/24/18 20:47 09/25/18 01:38 09/25/18 04:57 Bedside Glucose 97 71 82 71 Test 09/25/18 08:46 09/25/18 10:53 09/25/18 11:42 Bedside Glucose 71 82 White Blood Count 4.3 #L Red Blood Count 2.96 L Hemoglobin 8.9 L Hematocrit 27.5 L Mean Corpuscular 92.9 Volume Mean Corpuscular 30.1 Hemoglobin Mean Corpuscular 32.4 Hemoglobin Concent Red Cell 15.9 H Distribution Width Platelet Count 298 Mean Platelet Volume 11.0 H Immature 1.400 H Granulocytes % Neutrophils % Segmented 70 Neutrophils % (Manual) Band Neutrophils % 21 H (Manual) Lymphocytes % Lymphocytes % 6 L (Manual) Monocytes % Monocytes % (Manual) 2 Eosinophils % Eosinophils % 1 (Manual) Basophils % Nucleated Red Blood 1 H Cells % Immature 0.060 H Granulocytes # Neutrophils # Neutrophils # 3.0 (Manual) Band Neutrophils # 0.9 H Lymphocytes (Manual) 0.2 L Lymphocytes # Monocytes # Monocytes # (Manual) 0.0 L Eosinophils # Basophils # Nucleated Red Blood Cells # Platelet Estimate NORMAL Platelet Morphology @See below Comment Polychromasia 2+ Anisocytosis 2+ Sodium Level 134 L Potassium Level 3.8 Chloride Level 102 Carbon Dioxide Level 28 Anion Gap 4 L Blood Urea Nitrogen 18 Creatinine 0.70 Est Glomerular > 60 Filtrat Rate mL/min Glucose Level 104 Calcium Level 7.6 L Home Meds Active Scripts Pantoprazole* (Pantoprazole*) 40 Mg Tablet.dr, 40 MG PO DAILY@06 for 14 Days, #14 Prov:RICKIE DALTON MD 06/12/18 Apixaban* (Eliquis*) 5 Mg Tablet, 10 MG PO BID for 30 Days, #60 TAB 10 mg twice daily for 5 days, then 5 mg twice daily Prov:RICKIE DALTON MD 06/12/18 Methadone Hcl* (Methadone*) 5 Mg/5 Ml Solution, 68 MG PO DAILY for 30 Days, ML Prov:STU ORTEZ. 04/14/18 Salmeterol Xinaf/Fluticasone* (Advair*) 250-50 Diskus Inhaler, 1 INH INHALATION BID for 30 Days, #1 INHALER Prov:ZHANG WARE DEPUTY FELONY CLERK 02/28/16 Albuterol Sulfate* (Proair HFA*) 8.5 Gm Hfa.aer.ad, 2 PUFF INH Q6 for SHORTNESS OF BREATH for 14 Days, #1 INHALER Prov:ZHANG WARE DEPUTY FELONY CLERK 02/28/16 Reported Medications Sertraline Hcl* (Sertraline Hcl*) 25 Mg Tablet, 25 MG PO DAILY, #30 TAB 09/15/18 Buspirone Hcl* (Buspirone Hcl*) 10 Mg Tab, 10 MG PO BID, TAB 09/15/18 Clonazepam* (Clonazepam*) 0.5 Mg Tablet, 0.5 MG PO DAILY PRN for ANXIETY, TAB 09/15/18 Ipratropium-Albuterol (Ipratropium-Albuterol) 0.5-3 Mg/3 Ml Ampul.neb, 3 ML INHALATION Q6 PRN for WHEEZING AND SOB, #30 VIAL 09/15/18 Carvedilol* (Carvedilol*) 6.25 Mg Tablet, 6.25 MG PO BID, #60 TAB 09/15/18 Cholecalciferol (Vitamin D3) (VITAMIN D-3) 2,000 Unit Capsule, 2000 U PO DAILY for 30 Days 04/30/18 Amlodipine Besylate* (Amlodipine Besylate*) 5 Mg Tablet, 5 MG PO DAILY for 30 Days, #30 04/30/18 Baclofen* (Baclofen*) 10 Mg Tablet, 10 MG PO BID 04/30/18 Calcium Carbonate ([id number]) 500 Mg Tablet, 500 MG PO BID, TAB 04/30/18 Medications Current Medications IV Flush (NS 3 ml) 3 ml PER PROTOCOL IV ; Start 09/15/18 at 07:30 Ondansetron HCl (Zofran Inj) 4 mg Q6H PRN IV NAUSEA/VOMITING Last administered on 09/19/18 07:53; Admin Dose 4 MG; Start 09/15/18 at 07:30 Acetaminophen (Tylenol Tab) 650 mg Q6H PRN PO .PAIN 1-3 OR TEMP Last administered on 09/16/18 21:56; Admin Dose 650 MG; Start 09/15/18 at 07:30 Baclofen (Lioresal) 10 mg BID PO Last administered on 09/23/18 09:45; Admin Dose 10 MG; Start 09/15/18 at 09:00; Status Hold Buspirone HCl (Buspar) 10 mg BID PO Last administered on 09/23/18 11:44; Admin Dose 10 MG; Start 09/15/18 at 09:00; Status Hold Calcium Carbonate (Oyster Shell Calcium) 1.25 gm BID PO Last administered on 09/23/18 11:44; Admin Dose 1.25 GM; Start 09/15/18 at 09:00; Status Hold Clonazepam (Klonopin) 0.5 mg DAILY PRN PO ANXIETY Last administered on 09/23/18 02:04; Admin Dose 0.5 MG; Start 09/15/18 at 07:30; Status Hold Docusate Sodium (Colace) 100 mg BID PO Last administered on 09/23/18 09:43; Admin Dose 100 MG; Start 09/15/18 at 09:00; Status Hold Rifaximin (Xifaxan) 550 mg BID PO Last administered on 09/22/18 21:42; Admin Dose 550 MG; Start 09/15/18 at 09:00; Status Hold Sertraline HCl (Zoloft) 100 mg DAILY PO ; Start 09/15/18 at 09:00; Status Hold Fluticasone/ Vilanterol (Breo Ellipta 200-25 Mcg Inh) 1 inh DAILY INH Last administered on 09/23/18 11:39; Admin Dose 1 INH; Start 09/15/18 at 09:00 Albuterol/ Ipratropium (Duoneb) 3 ml Q3H RESP THERAPY PRN HHN WHEEZING AND SOB Last administered on 09/21/18 21:08; Admin Dose 3 ML; Start 09/15/18 at 08:00 Levalbuterol (Xopenex Neb) 0.63 mg Q4H RESP THERAPY HHN Last administered on 09/25/18 12:11; Admin Dose 0.63 MG; Start 09/15/18 at 17:00 Levalbuterol (Xopenex Neb) 0.63 mg Q2H RESP THERAPY PRN HHN WHEEZING AND SOB; Start 09/15/18 at 14:00 Collagenase (Santyl) 1 applic DAILY TOP Last administered on 09/25/18 11:47; Admin Dose 1 APPLIC; Start 09/16/18 at 15:00 Acetaminophen/ Hydrocodone Bitart ([place] (5/325)) 1 tab Q6H PRN PO MODERATE P AIN LEVEL 4-6 Last administered on 09/23/18 09:38; Admin Dose 1 TAB; Start 09/17/18 at 11:30 Methadone HCl (Methadone Liq) 15 mg Q8 PRN PO SEVERE PAIN Last administered on 09/23/18 23:21; Admin Dose 15 MG; Start 09/17/18 at 18:30 Apixaban (Eliquis) 5 mg BID PO Last administered on 09/23/18 09:45; Admin Dose 5 MG; Start 09/19/18 at 21:00; Status Hold Multivitamins Therapeutic (Theragran) 1 tab DAILY PO Last administered on 09/23/18 09:43; Admin Dose 1 TAB; Start 09/19/18 at 12:00 Ascorbic Acid (Vitamin C) 500 mg DAILY PO Last administered on 09/23/18 09:45; Admin Dose 500 MG; Start 09/19/18 at 12:00; Status Hold Zinc Sulfate (Zinc Sulfate) 220 mg DAILY PO Last administered on 09/22/18 08:50; Admin Dose 220 MG; Start 09/19/18 at 12:00; Status Hold Thiamine HCl (Vitamin B1) 50 mg DAILY PO Last administered on 09/23/18 09:45; Admin Dose 50 MG; Start 09/19/18 at 12:00; Status Hold Simethicone (Mylicon) 80 mg Q6H PRN PO DISTENSION/GAS/BLOATING Last administered on 09/22/18 23:50; Admin Dose 80 MG; Start 09/20/18 at 06:30 Diltiazem HCl (Cardizem Cd) 120 mg DAILY PO Last administered on 09/23/18 11:41; Admin Dose 120 MG; Start 09/20/18 at 09:00; Status Hold Zolpidem Tartrate (Ambien) 5 mg HS PRN PO INSOMNIA Last administered on 09/24/18 01:16; Admin Dose 5 MG; Start 09/21/18 at 02:00; Status Hold Phenol (Cepastat Lozenge) 1 lozenge Q1H PRN MT SORE THROAT Last administered on 09/22/18 03:32; Admin Dose 1 LOZENGE; Start 09/22/18 at 01:00 Levofloxacin (Levaquin) 500 mg DAILY@06 PO Last administered on 09/23/18 07:21; Admin Dose 500 MG; Start 09/23/18 at 06:00; Status Hold Metronidazole 100 ml @ 100 mls/hr Q8 IVPB Last administered on 09/23/18 22:03; Admin Dose 100 MLS/HR; Start 09/23/18 at 14:00; Status Hold Prednisone (Prednisone) 40 mg DAILY PO ; Start 09/24/18 at 09:00; Stop 09/28/18 at 09:00 Dextrose/Sodium Chloride 1,000 ml @ 70 mls/hr [id number] IV Last administered on 09/23/18 23:13; Admin Dose 70 MLS/HR; Start 09/23/18 at 22:30 Insulin Aspart (Novolog Insulin Pen) NOVOLOG *MILD* ALGORI... Q4 SC ; Start 09/24/18 at 01:00 Vancomycin HCl (Vanco Iv Per Pharmacy) VANCOMYCIN PER PHARMACY PER PROTOCOL XX ; Start 09/24/18 at 02:30 Meropenem/Sodium Chloride 50 ml @ 100 mls/hr Q8H IVPB Last administered on 09/25/18 11:47; Admin Dose 100 MLS/HR; Start 09/24/18 at 02:30 Vancomycin HCl 100 ml @ 100 mls/hr Q24H IVPB Last administered on 09/25/18 02:37; Admin Dose 100 MLS/HR; Start 09/25/18 at 03:00 Hydromorphone HCl (Dilaudid) 0.5 mg Q4H PRN IV SEVERE PAIN LEVEL 7-10 Last administered on 09/25/18at 04:02; Admin Dose 0.5 MG; Start 09/24/18 at 03:00 Lorazepam (Ativan) 0.5 mg Q6H PRN IV ANXIETY Last administered on 09/25/18at 06:45; Admin Dose 0.5 MG; Start 09/24/18 at 03:00 Miscellaneous Information (*Rx Drug Level Order Reminder*) VANCOMYCIN TROUGH LEVEL 0200 ONCE XX ; Start 09/27/18 at 02:00; Stop 09/27/18 at 02:01 Pantoprazole (Protonix Iv) 40 mg BID@06,18 IV Last administered on 09/25/18at 04:56; Admin Dose 40 MG; Start 09/24/18 at 18:00 Assessment/Plan Assessment/Plan (Daily) IMP: 1. Possible perforated PUD--refusing intervention 2. Chronic obstructive pulmonary disease with acute exacerbation. 3. Type NSTEMI 4. s/p Dehydration and renal insufficiency. 5. History of venous thromboembolism--anticoagulation on hold RECS: 1. Continue to hold ATC; follow H/H 2. Taper off CS 3. BDs 4. Aspiration precautions LEONORA GLASGOW MD Sep 25, 2018 16:15
[2018-09-25] MEDS: METHADONE (1 MG/ML 5 ML PO UD SYG) PO PRN (21:44)
[2018-09-25] MEDS ORDERED: GLUCOSE GEL 15 GRAM TUBE PO PRN (22:00)
[2018-09-25] MEDS ORDERED: GLUCAGON 1 MG INJ IM PRN (22:00)
[2018-09-25] MEDS ORDERED: GLUCOSE GEL 15 GRAM TUBE BUCCAL PRN (22:00)
[2018-09-25] MEDS ORDERED: DEXTROSE 50% 50 ML SYRINGE IV PRN (22:00)
[2018-09-25] MEDS: DEXTROSE 50% 50 ML SYRINGE IV PRN (22:15)
[2018-09-25] MEDS: HYDROCODONE/APAP (5/325) TAB PO PRN (23:44)
[2018-09-26] VITALS: BP 139/72; PULSE 85; RESP 18
[2018-09-26] MEDS: INSULIN ASPART [NOVOLOG] 3 ML PEN SC SCH ×6 (00:49→21:00)
[2018-09-26] MEDS: LEVALBUTEROL (NEB) 0.63 MG/3 ML AMP HHN SCH ×6 (01:55→21:03)
[2018-09-26] MEDS: MEROPENEM 1 GM/50ML(PMX) 50 ML IVPB SCH ×3 (03:17→17:35)
[2018-09-26] MEDS: VANCOMYCIN 500 MG (PMX) 100 ML IVPB SCH (03:24)
[2018-09-26] MEDS: HYDROmorphONE 0.5 MG/0.5 ML SYG IV PRN (03:25)
[2018-09-26 04:00] VITALS: BP 134/79; PULSE 66; RESP 18
[2018-09-26] MEDS: PANTOPRAZOLE 40 MG INJ IV SCH ×2 (06:03→17:36)
[2018-09-26] MEDS: DEXTROSE 5%-0.45% NACL 1,000 ML IV SCH (06:04)
[2018-09-26 07:47] VITALS: BP 122/56; PULSE 106; RESP 16
--- NOTE | 2018-09-26 08:21 | PN ---
DATE: 09/26/2018 SUBJECTIVE: The patient is stable. NG tube is in place. No other events noted. OBJECTIVE: VITAL SIGNS: Blood pressure is 134/79, respiration 18, pulse 66, temperature 98.5. HEENT: Head is normocephalic. NECK: Supple. HEART: Regular rate. LUNGS: Show diminished breath sounds at the base. ABDOMEN: Soft, nontender to palpation without rebound or guarding. EXTREMITIES: Negative for clubbing, cyanosis, no edema. DERMATOLOGIC: No rashes. MUSCULOSKELETAL: No joint effusion. NEUROLOGIC: No change in exam. MEDICATIONS: Reviewed. LABORATORY DATA: Have been reviewed. IMAGING STUDIES: Have been reviewed. ASSESSMENT AND PLAN: 1. Nonoliguric acute kidney injury. Etiology is secondary to hemodynamics. Renal function stabiliz ed, continue current dose of medicine. 2. Hypokalemia, replete potassium chloride. 3. Anemia. Continue to monitor hemoglobin and hematocrit levels. Continue famotidine. 4. Acute respiratory failure. Etiology secondary to chronic obstructive pulmonary disease exacerbat ion. Continue bronchodilators. 5. Non-ST elevation myocardial infarction type 2 secondary to demand ischemia. 6. Sepsis, possible pneumonia. Continue current antibiotic regimen. 7. Leukocytosis, possibly due to steroids. Infectious continue to monitor. 8. History of hepatitis C. 9. Hypernatremia, improved. 10. Abdominal pain, perforated viscus. Surgery was consulted. Nasogastric tube is in place. Patie nt is refusing surgery. Dictated By: RICHARD ORTIZ DO NR/NTS Conf#: [id number] DID#: [id number] CC: GERALDO VARGAS MD;*EndCC*
[2018-09-26] MEDS: MULTIVITAMINS THERAPEUTIC TAB PO SCH (09:00)
[2018-09-26] MEDS: BALSAM PERU/CASTOR OIL 60 GM TUBE TOP SCH ×2 (09:00→21:43)
[2018-09-26] MEDS: predniSONE 20 MG TAB PO SCH (09:00)
[2018-09-26] MEDS: FLUTICASONE/VILANTEROL 200-25 INH DEVICE INH SCH (09:00)
[2018-09-26] MEDS: DEXTROSE 50% 50 ML SYRINGE IV PRN ×4 (09:02→21:39)
[2018-09-26] MEDS: POTASSIUM CHLORIDE 100 ML IVPB SCH ×2 (09:29→11:05)
--- NOTE | 2018-09-26 11:26 | PN ---
Date/Time of Note Date/Time of Note DATE: 09/26/18 TIME: 11:16 Assessment/Plan VTE Prophylaxis Risk score (from Ns)>0 risk: 3 SCD applied (from Ns): Yes Pharmacological prophylaxis: other (scds) Lines/Catheters IV Catheter Type (from Nrs): Mid Line Urinary Cath still in place: No Assessment/Plan Hospital Course Assessment: Perforated viscus with free air on CT scan, likely perforated duodenal ulcer. Colitis on CT scan Positive FOBT, possibly secondary to GI bleeding Anemia COPD CKD Hx of PE Plan: Patient is declining surgical interventions Continue NG tube to low intermittent suction per surgery Continue IV fluids, may need to consider TPN Currently hold off on endoscopic evaluation GI will sign off on but will be available Patient seen in collaboration with Dr. Campos. Subjective: No over night events, NGT in place, HGB is currently in stable. Pt c/o abdominal pain she states better than yesterday. PHYSICAL EXAMINATION: GENERAL: Alert & oriented x 3,NGT in place SKIN: No lesions, coccyx pressure ulcer, no stigmata chronic liver disease, no evidence of bleeding diathesis HEAD: Normocephalic, atraumatic, no tenderness. EYES: Pupils equal reactive to light and accommodation, full extraocular movements, sclera clear, non-icteric, no discharge. EARS/NOSE AND THROAT: Ears normal, nose normal. NG tube to low intermittent suction. NECK: Supple, no masses. CHEST: Inspection within normal limits. CARDIOVASCULAR: Heart: Regular rate and rhythm RESPIRATORY: Lungs clear to auscultation. GASTROINTESTINAL AND LIVER: Abdomen: Soft, upper abdominal tenderness, dist ended, no ascites, no guarding, no rebound tenderness, normoactive bowel sounds. Rectal: Deferred. GENITOURINARY: Female genitalia within normal limits. EXTREMITIES: No cyanosis, clubbing or edema. Result Diagram: 09/26/18 0558 09/26/18 0558 Results 24hrs Laboratory Tests Test 09/25/18 11:42 09/25/18 17:46 09/25/18 21:03 09/25/18 22:13 Bedside Glucose 82 93 51 L 52 L Test 09/25/18 22:37 09/25/18 23:46 09/26/18 00:42 09/26/18 05:58 Bedside Glucose 128 100 137 White Blood Count 3.0 #L Red Blood Count 2.86 L Hemoglobin 8.7 L Hematocrit 26.7 L Mean Corpuscular 93.4 Volume Mean Corpuscular 30.4 Hemoglobin Mean Corpuscular 32.6 Hemoglobin Concen t Red Cell 15.6 H Distribution Width Platelet Count 228 # Mean Platelet 10.8 H Volume Immature 1.400 H Granulocytes % Neutrophils % Segmented 30 L Neutrophils % (Manual) Band Neutrophils 58 H % (Manual) Lymphocytes % Lymphocytes % 3 L (Manual) Reactive 1 H Lymphocytes % (Manual) Monocytes % Monocytes % 5 (Manual) Eosinophils % Eosinophils % 2 (Manual) Basophils % Myelocytes % 1 H (Manual) Nucleated Red 0.0 Blood Cells % Immature 0.040 H Granulocytes # Neutrophils # Neutrophils # 1.0 L (Manual) Band Neutrophils 1.7 H # Lymphocytes 0.0 L (Manual) Lymphocytes # Reactive 0.0 Lymphocytes # Monocytes # Monocytes # 0.1 L (Manual) Eosinophils # Basophils # Myelocytes # 0.0 Nucleated Red Blood Cells # Platelet Estimate NORMAL Polychromasia 3+ Hypochromasia 1+ Anisocytosis 1+ Macrocytosis 1+ Sodium Level 136 Potassium Level 3.2 L Chloride Level 102 Carbon Dioxide 29 Level Anion Gap 5 Blood Urea 12 Nitrogen Creatinine 0.56 Est Glomerular > 60 Filtrat Rate mL/min Glucose Level 119 Calcium Level 7.4 L Phosphorus Level 2.5 Magnesium Level 1.7 Test 09/26/18 05:59 09/26/18 07:38 09/26/18 08:41 09/26/18 09:27 Bedside Glucose 115 60 L 93 Lab Scanned BLOOD TRANSFUSIO Report N Exam/Review of Systems Exam Vitals Vital Signs Date Temp Pulse Resp B/P (MAP) Pulse Ox O2 O2 Flow FiO2 Time Delivery Rate 09/26/18 2.0 08:08 09/26/18 98.7 106 16 122/56 95 07:47 (78) 09/26/18 Nasal 05:31 Cannula Intake and Output 09/25/18 09/25/18 09/26/18 1515:00 23:00 07:00 IntakeIntake Total 200 ml 1350 ml OutputOutput Total 1 ml BalanceBalance 199 ml 1350 ml Results Results 24hrs Laboratory Tests Test 09/25/18 11:42 09/25/18 17:46 09/25/18 21:03 09/25/18 22:13 Bedside Glucose 82 93 51 L 52 L Test 09/25/18 22:37 09/25/18 23:46 09/26/18 00:42 09/26/18 05:58 Bedside Glucose 128 100 137 White Blood Count 3.0 #L Red Blood Count 2.86 L Hemoglobin 8.7 L Hematocrit 26.7 L Mean Corpuscular 93.4 Volume Mean Corpuscular 30.4 Hemoglobin Mean Corpuscular 32.6 Hemoglobin Concen t Red Cell 15.6 H Distribution Width Platelet Count 228 # Mean Platelet 10.8 H Volume Immature 1.400 H Granulocytes % Neutrophils % Segmented 30 L Neutrophils % (Manual) Band Neutrophils 58 H % (Manual) Lymphocytes % Lymphocytes % 3 L (Manual) Reactive 1 H Lymphocytes % (Manual) Monocytes % Monocytes % 5 (Manual) Eosinophils % Eosinophils % 2 (Manual) Basophils % Myelocytes % 1 H (Manual) Nucleated Red 0.0 Blood Cells % Immature 0.040 H Granulocytes # Neutrophils # Neutrophils # 1.0 L (Manual) Band Neutrophils 1.7 H # Lymphocytes 0.0 L (Manual) Lymphocytes # Reactive 0.0 Lymphocytes # Monocytes # Monocytes # 0.1 L (Manual) Eosinophils # Basophils # Myelocytes # 0.0 Nucleated Red Blood Cells # Platelet Estimate NORMAL Polychromasia 3+ Hypochromasia 1+ Anisocytosis 1+ Macrocytosis 1+ Sodium Level 136 Potassium Level 3.2 L Chloride Level 102 Carbon Dioxide 29 Level Anion Gap 5 Blood Urea 12 Nitrogen Creatinine 0.56 Est Glomerular > 60 Filtrat Rate mL/min Glucose Level 119 Calcium Level 7.4 L Phosphorus Level 2.5 Magnesium Level 1.7 Test 09/26/18 05:59 09/26/18 07:38 09/26/18 08:41 09/26/18 09:27 Bedside Glucose 115 60 L 93 Lab Scanned BLOOD TRANSFUSIO Report N Medications Medication Current Medications IV Flush (NS 3 ml) 3 ml PER PROTOCOL IV ; Start 09/15/18 at 07:30 Ondansetron HCl (Zofran Inj) 4 mg Q6H PRN IV NAUSEA/VOMITING Last administered on 09/19/18at 07:53; Admin Dose 4 MG; Start 09/15/18 at 07:30 Acetaminophen (Tylenol Tab) 650 mg Q6H PRN PO .PAIN 1-3 OR TEMP Last administered on 09/16/18at 21:56; Admin Dose 650 MG; Start 09/15/18 at 07:30 Baclofen (Lioresal) 10 mg BID PO Last administered on 09/23/18 09:45; Admin Dose 10 MG; Start 09/15/18 at 09:00; Status Hold Buspirone HCl (Buspar) 10 mg BID PO Last administered on 09/23/18 11:44; Admin Dose 10 MG; Start 09/15/18 at 09:00; Status Hold Calcium Carbonate (Oyster Shell Calcium) 1.25 gm BID PO Last administered on 09/23/18 11:44; Admin Dose 1.25 GM; Start 09/15/18 at 09:00; Status Hold Clonazepam (Klonopin) 0.5 mg DAILY PRN PO ANXIETY Last administered on 09/23/18 02:04; Admin Dose 0.5 MG; Start 09/15/18 at 07:30; Status Hold Docusate Sodium (Colace) 100 mg BID PO Last administered on 09/23/18 09:43; Admin Dose 100 MG; Start 09/15/18 at 09:00; Status Hold Rifaximin (Xifaxan) 550 mg BID PO Last administered on 09/22/18 21:42; Admin Dose 550 MG; Start 09/15/18 at 09:00; Status Hold Sertraline HCl (Zoloft) 100 mg DAILY PO ; Start 09/15/18 at 09:00; Status Hold Fluticasone/ Vilanterol (Breo Ellipta 200-25 Mcg Inh) 1 inh DAILY INH Last administered on 09/23/18 11:39; Admin Dose 1 INH; Start 09/15/18 at 09:00 Albuterol/ Ipratropium (Duoneb) 3 ml Q3H RESP THERAPY PRN HHN WHEEZING AND SOB Last administered on 09/21/18 21:08; Admin Dose 3 ML; Start 09/15/18 at 08:00 Levalbuterol (Xopenex Neb) 0.63 mg Q4H RESP THERAPY HHN Last administered on 09/26/18 05:31; Admin Dose 0.63 MG; Start 09/15/18 at 17:00 Levalbuterol (Xopenex Neb) 0.63 mg Q2H RESP THERAPY PRN HHN WHEEZING AND SOB; Start 09/15/18 at 14:00 Collagenase (Santyl) 1 applic DAILY TOP Last administered on 09/25/18 11:47; Admin Dose 1 APPLIC; Start 09/16/18 at 15:00 Acetaminophen/ Hydrocodone Bitart ([place] (5/325)) 1 tab Q6H PRN PO MODERATE PAIN LEVEL 4-6 Last administered on 09/25/18 23:44; Admin Dose 1 TAB; Start 09/17/18 at 11:30 Methadone HCl (Methadone Liq) 15 mg Q8 PRN PO SEVERE PAIN Last administered on 09/25/18 21:44; Admin Dose 15 MG; Start 09/17/18 at 18:30 Apixaban (Eliquis) 5 mg BID PO Last administered on 09/23/18 09:45; Admin Dose 5 MG; Start 09/19/18 at 21:00; Status Hold Multivitamins Therapeutic (Theragran) 1 tab DAILY PO Last administered on 09/23/18 09:43; Admin Dose 1 TAB; Start 09/19/18 at 12:00 Ascorbic Acid (Vitamin C) 500 mg DAILY PO Last administered on 09/23/18 09:45; Admin Dose 500 MG; Start 09/19/18 at 12:00; Status Hold Zinc Sulfate (Zinc Sulfate) 220 mg DAILY PO Last administered on 09/22/18 08:50; Admin Dose 220 MG; Start 09/19/18 at 12:00; Status Hold Thiamine HCl (Vitamin B1) 50 mg DAILY PO Last administered on 09/23/18 09:45; Admin Dose 50 MG; Start 09/19/18 at 12:00; Status Hold Simethicone (Mylicon) 80 mg Q6H PRN PO DISTENSION/GAS/BLOATING Last administered on 09/22/18 23:50; Admin Dose 80 MG; Start 09/20/18 at 06:30 Diltiazem HCl (Cardizem Cd) 120 mg DAILY PO Last administered on 09/23/18 11:41; Admin Dose 120 MG; Start 09/20/18 at 09:00; Status Hold Zolpidem Tartrate (Ambien) 5 mg HS PRN PO INSOMNIA Last administered on 09/24/18 01:16; Admin Dose 5 MG; Start 09/21/18 at 02:00; Status Hold Phenol (Cepastat Lozenge) 1 lozenge Q1H PRN MT SORE THROAT Last administered on 09/22/18 03:32; Admin Dose 1 LOZENGE; Start 09/22/18 at 01:00 Levofloxacin (Levaquin) 500 mg DAILY@06 PO Last administered on 09/23/18 07:21 ; Admin Dose 500 MG; Start 09/23/18 at 06:00; Status Hold Metronidazole 100 ml @ 100 mls/hr Q8 IVPB Last administered on 09/23/18 22:03; Admin Dose 100 MLS/HR; Start 09/23/18 at 14:00; Status Hold Prednisone (Prednisone) 40 mg DAILY PO ; Start 09/24/18 at 09:00; Stop 09/28/18 at 09:00 Dextrose/Sodium Chloride 1,000 ml @ 70 mls/hr [id number] IV Last administered on 09/26/18 06:04; Admin Dose 70 MLS/HR; Start 09/23/18 at 22:30 Insulin Aspart (Novolog Insulin Pen) NOVOLOG *MILD* ALGORI... Q4 SC ; Start 09/24/18 at 01:00 Vancomycin HCl (Vanco Iv Per Pharmacy) VANCOMYCIN PER PHARMACY PER PROTOCOL XX ; Start 09/24/18 at 02:30 Meropenem/Sodium Chloride 50 ml @ 100 mls/hr Q8H IVPB Last administered on 09/26/18 03:17; Admin Dose 100 MLS/HR; Start 09/24/18 at 02:30 Vancomycin HCl 100 ml @ 100 mls/hr Q24H IVPB Last administered on 09/26/18 03:24; Admin Dose 100 MLS/HR; Start 09/25/18 at 03:00 Hydromorphone HCl (Dilaudid) 0.5 mg Q4H PRN IV SEVERE PAIN LEVEL 7-10 Last administered on 09/26/18 03:25; Admin Dose 0.5 MG; Start 09/24/18 at 03:00 Lorazepam (Ativan) 0.5 mg Q6H PRN IV ANXIETY Last administered on 09/25/18 22:31; Admin Dose 0.5 MG; Start 09/24/18 at 03:00 Miscellaneous Information (*Rx Drug Level Order Reminder*) VANCOMYCIN TROUGH LEVEL 0200 ONCE XX ; Start 09/27/18 at 02:00; Stop 09/27/18 at 02:01 Pantoprazole (Protonix Iv) 40 mg BID@06,18 IV Last administered on 09/26/18at 06:03; Admin Dose 40 MG; Start 09/24/18 at 18:00 Miscellaneous Information 1 ea NOTE XX ; Start 09/25/18 at 22:00 Glucose (Glutose) 15 gm Q15M PRN PO DECREASED GLUCOSE; Start 09/25/18 at 22:00 Glucose (Glutose) 22.5 gm Q15M PRN PO DECREASED GLUCOSE; Start 09/25/18 at 22:00 Dextrose (D50w Syringe) 25 ml Q15M PRN IV DECREASED GLUCOSE Last administered on 09/26/18at 09:02; Admin Dose 25 ML; Start 09/25/18 at 22:00 Dextrose (D50w Syringe) 50 ml Q15M PRN IV DECREASED GLUCOSE; Start 09/25/18 at 22:00 Glucagon (Glucagen) 1 mg Q15M PRN IM DECREASED GLUCOSE; Start 09/25/18 at 22:00 Glucose (Glutose) 15 gm Q15M PRN BUCCAL DECREASED GLUCOSE; Start 09/25/18 at 22:00 Potassium Chloride 100 ml @ 50 mls/hr Q2H IVPB Last administered on 09/26/18at 11:05; Admin Dose 50 MLS/HR; Start 09/26/18 at 07:30; Stop 09/26/18 at 11:29 BRETT LEAVITT Sep 26, 2018 11:26
[2018-09-26 11:33] VITALS: BP 129/59; PULSE 123; RESP 18
--- NOTE | 2018-09-26 12:10 | CONS ---
Consult Date/Type/Reason Admit Date/Time Sep 15, 2018 at 03:32 Initial Consult Date 09/15/18 Type of Consult Pulmonary Requesting Provider: LEOBARDO DC Date/Time of Note DATE: 09/26/18 TIME: 12:09 Subjective States she feels better today. Less shortness of breath. Less abdominal pain. Nasogastric tube to suction. Objective Vital Signs Date Temp Pulse Resp B/P (MAP) Pulse Ox O2 O2 Flow FiO2 Time Delivery Rate 09/26/18 98.3 123 18 129/59 99 11:33 (82) 09/26/18 2.0 08:08 09/26/18 Nasal 05:31 Cannula Intake and Output 09/25/18 09/25/18 09/26/18 1515:00 23:00 07:00 IntakeIntake Total 200 ml 1350 ml OutputOutput Total 1 ml BalanceBalance 199 ml 1350 ml Exam GENERAL: VITAL SIGNS: per chart NECK: Supple. No JVD or lymphadenopathy. CARDIAC EXAM: S1, S2. No added sounds or murmurs. CHEST: Diminished air entry bilaterally ABDOMEN: Diminished bowel sounds EXTREMITIES: No cyanosis, clubbing or edema. NEUROLOGIC: Generalized weakness. No focal deficits. Thin elderly lady appears comfortable at rest Vent Setting Fraction of Inspired Oxygen pe: 21 Results/Medications Result Diagram: 09/26/18 0558 09/26/18 0558 Results 24 hrs Laboratory Tests Test 09/25/18 17:46 09/25/18 21:03 09/25/18 22:13 09/25/18 22:37 Bedside Glucose 93 51 L 52 L 128 Test 09/25/18 23:46 09/26/18 00:42 09/26/18 05:58 09/26/18 05:59 Bedside Glucose 100 137 115 White Blood Count 3.0 #L Red Blood Count 2.86 L Hemoglobin 8.7 L Hematocrit 26.7 L Mean Corpuscular 93.4 Volume Mean Corpuscular 30.4 Hemoglobin Mean Corpuscular 32.6 Hemoglobin Concen t Red Cell 15.6 H Distribution Width Platelet Count 228 # Mean Platelet 10.8 H Volume Immature 1.400 H Granulocytes % Neutrophils % Segmented 30 L Neutrophils % (Manual) Band Neutrophils 58 H % (Manual) Lymphocytes % Lymphocytes % 3 L (Manual) Reactive 1 H Lymphocytes % (Manual) Monocytes % Monocytes % 5 (Manual) Eosinophils % Eosinophils % 2 (Manual) Basophils % Myelocytes % 1 H (Manual) Nucleated Red 0.0 Blood Cells % Immature 0.040 H Granulocytes # Neutrophils # Neutrophils # 1.0 L (Manual) Band Neutrophils 1.7 H # Lymphocytes 0.0 L (Manual) Lymphocytes # Reactive 0.0 Lymphocytes # Monocytes # Monocytes # 0.1 L (Manual) Eosinophils # Basophils # Myelocytes # 0.0 Nucleated Red Blood Cells # Platelet Estimate NORMAL Polychromasia 3+ Hypochromasia 1+ Anisocytosis 1+ Macrocytosis 1+ Sodium Level 136 Potassium Level 3.2 L Chloride Level 102 Carbon Dioxide 29 Level Anion Gap 5 Blood Urea 12 Nitrogen Creatinine 0.56 Est Glomerular > 60 Filtrat Rate mL/min Glucose Level 119 Calcium Level 7.4 L Phosphorus Level 2.5 Magnesium Level 1.7 Test 09/26/18 07:38 09/26/18 08:41 09/26/18 09:27 Lab Scanned BLOOD TRANSFUSIO Report N Bedside Glucose 60 L 93 Medications Current Medications IV Flush (NS 3 ml) 3 ml PER PROTOCOL IV ; Start 09/15/18 at 07:30 Ondansetron HCl (Zofran Inj) 4 mg Q6H PRN IV NAUSEA/VOMITING Last administered on 09/19/18 07:53; Admin Dose 4 MG; Start 09/15/18 at 07:30 Acetaminophen (Tylenol Tab) 650 mg Q6H PRN PO .PAIN 1-3 OR TEMP Last administered on 09/16/18 21:56; Admin Dose 650 MG; Start 09/15/18 at 07:30 Baclofen (Lioresal) 10 mg BID PO Last administered on 09/23/18 09:45; Admin Dose 10 MG; Start 09/15/18 at 09:00; Status Hold Buspirone HCl (Buspar) 10 mg BID PO Last administered on 09/23/18 11:44; Admin Dose 10 MG; Start 09/15/18 at 09:00; Status Hold Calcium Carbonate (Oyster Shell Calcium) 1.25 gm BID PO Last administered on 09/23/18 11:44; Admin Dose 1.25 GM; Start 09/15/18 at 09:00; Status Hold Clonazepam (Klonopin) 0.5 mg DAILY PRN PO ANXIETY Last administered on 09/23/18 02:04; Admin Dose 0.5 MG; Start 09/15/18 at 07:30; Status Hold Docusate Sodium (Colace) 100 mg BID PO Last administered on 09/23/18 09:43; Admin Dose 100 MG; Start 09/15/18 at 09:00; Status Hold Rifaximin (Xifaxan) 550 mg BID PO Last administered on 09/22/18 21:42; Admin Dose 550 MG; Start 09/15/18 at 09:00; Status Hold Sertraline HCl (Zoloft) 100 mg DAILY PO ; Start 09/15/18 at 09:00; Status Hold Fluticasone/ Vilanterol (Breo Ellipta 200-25 Mcg Inh) 1 inh DAILY INH Last administered on 09/23/18 11:39; Admin Dose 1 INH; Start 09/15/18 at 09:00 Albuterol/ Ipratropium (Duoneb) 3 ml Q3H RESP THERAPY PRN HHN WHEEZING AND SOB Last administered on 09/21/18 21:08; Admin Dose 3 ML; Start 09/15/18 at 08:00 Levalbuterol (Xopenex Neb) 0.63 mg Q4H RESP THERAPY HHN Last administered on 09/26/18 05:31; Admin Dose 0.63 MG; Start 09/15/18 at 17:00 Levalbuterol (Xopenex Neb) 0.63 mg Q2H RESP THERAPY PRN HHN WHEEZING AND SOB; Start 09/15/18 at 14:00 Collagenase (Santyl) 1 applic DAILY TOP Last administered on 09/25/18 11:47; Admin Dose 1 APPLIC; Start 09/16/18 at 15:00 Acetaminophen/ Hydrocodone Bitart ([place] (5/325)) 1 tab Q6H PRN PO MODERATE PAIN LEVEL 4-6 Last administered on 09/25/18 23:44; Admin Dose 1 TAB; Start 09/17/18 at 11:30 Methadone HCl (Methadone Liq) 15 mg Q8 PRN PO SEVERE PAIN Last administered on 09/25/18 21:44; Admin Dose 15 MG; Start 09/17/18 at 18:30 Apixaban (Eliquis) 5 mg BID PO Last administered on 09/23/18 09:45; Admin Dose 5 MG; Start 09/19/18 at 21:00; Status Hold Multivitamins Therapeutic (Theragran) 1 tab DAILY PO Last administered on 09/23/18 09:43; Admin Dose 1 TAB; Start 09/19/18 at 12:00 Ascorbic Acid (Vitamin C) 500 mg DAILY PO Last administered on 09/23/18 09:45; Admin Dose 500 MG; Start 09/19/18 at 12:00; Status Hold Zinc Sulfate (Zinc Sulfate) 220 mg DAILY PO Last administered on 09/22/18 08:50; Admin Dose 220 MG; Start 09/19/18 at 12:00; Status Hold Thiamine HCl (Vitamin B1) 50 mg DAILY PO Last administered on 09/23/18 09:45; Admin Dose 50 MG; Start 09/19/18 at 12:00; Status Hold Simethicone (Mylicon) 80 mg Q6H PRN PO DISTENSION/GAS/BLOATING Last administered on 09/22/18 23:50; Admin Dose 80 MG; Start 09/20/18 at 06:30 Diltiazem HCl (Cardizem Cd) 120 mg DAILY PO Last administered on 09/23/18 11:41; Admin Dose 120 MG; Start 09/20/18 at 09:00; Status Hold Zolpidem Tartrate (Ambien) 5 mg HS PRN PO INSOMNIA Last administered on 09/24/18 01:16; Admin Dose 5 MG; Start 09/21/18 at 02:00; Status Hold Phenol (Cepastat Lozenge) 1 lozenge Q1H PRN MT SORE THROAT Last administered on 09/22/18 03:32; Admin Dose 1 LOZENGE; Start 09/22/18 at 01:00 Levofloxacin (Levaquin) 500 mg DAILY@06 PO Last administered on 09/23/18 07:21; Admin Dose 500 MG; Start 09/23/18 at 06:00; Status Hold Metronidazole 100 ml @ 100 mls/hr Q8 IVPB Last administered on 09/23/18 22:03; Admin Dose 100 MLS/HR; Start 09/23/18 at 14:00; Status Hold Prednisone (Prednisone) 40 mg DAILY PO ; Start 09/24/18 at 09:00; Stop 09/28/18 at 09:00 Dextrose/Sodium Chloride 1,000 ml @ 70 mls/hr [id number] IV Last administered on 09/26/18at 06:04; Admin Dose 70 MLS/HR; Start 09/23/18 at 22:30 Insulin Aspart (Novolog Insulin Pen) NOVOLOG *MILD* ALGORI... Q4 SC ; Start 09/24/18 at 01:00 Vancomycin HCl (Vanco Iv Per Pharmacy) VANCOMYCIN PER PHARMACY PER PROTOCOL XX ; Start 09/24/18 at 02:30 Meropenem/Sodium Chloride 50 ml @ 100 mls/hr Q8H IVPB Last administered on 09/26/18at 03:17; Admin Dose 100 MLS/HR; Start 09/24/18 at 02:30 Vancomycin HCl 100 ml @ 100 mls/hr Q24H IVPB Last administered on 09/26/18at 03:24; Admin Dose 100 MLS/HR; Start 09/25/18 at 03:00 Hydromorphone HCl (Dilaudid) 0.5 mg Q4H PRN IV SEVERE PAIN LEVEL 7-10 Last administered on 09/26/18at 03:25; Admin Dose 0.5 MG; Start 09/24/18 at 03:00 Lorazepam (Ativan) 0.5 mg Q6H PRN IV ANXIETY Last administered on 09/25/18at 22:31; Admin Dose 0.5 MG; Start 09/24/18 at 03:00 Miscellaneous Information (*Rx Drug Level Order Reminder*) VANCOMYCIN TROUGH LEVEL 0200 ONCE XX ; Start 09/27/18 at 02:00; Stop 09/27/18 at 02:01 Pantoprazole (Protonix Iv) 40 mg BID@06,18 IV Last administered on 09/26/18at 06:03; Admin Dose 40 MG; Start 09/24/18 at 18:00 Miscellaneous Information 1 ea NOTE XX ; Start 09/25/18 at 22:00 Glucose (Glutose) 15 gm Q15M PRN PO DECREASED GLUCOSE; Start 09/25/18 at 22:00 Glucose (Glutose) 22.5 gm Q15M PRN PO DECREASED GLUCOSE; Start 09/25/18 at 22:00 Dextrose (D50w Syringe) 25 ml Q15M PRN IV DECREASED GLUCOSE Last administered on 09/26/18at 09:02; Admin Dose 25 ML; Start 09/25/18 at 22:00 Dextrose (D50w Syringe) 50 ml Q15M PRN IV DECREASED GLUCOSE; Start 09/25/18 at 22:00 Glucagon (Glucagen) 1 mg Q15M PRN IM DECREASED GLUCOSE; Start 09/25/18 at 22:00 Glucose (Glutose) 15 gm Q15M PRN BUCCAL DECREASED GLUCOSE; Start 09/25/18 at 22:00 Assessment/Plan Hospital Course (Demo Recall) IMP: 1. Possible perforated PUD--refusing intervention 2. Chronic obstructive pulmonary disease with acute exacerbation. 3. Type 2 NSTEMI 4. s/p Dehydration and renal insufficiency. 5. History of venous thromboembolism--anticoagulation on hold RECS: 1. Continue to hold ATC; follow H/H 2. Taper off CS 3. BDs 4. Aspiration precautions EMMA STEINBERG MD, [facility] Sep 26, 2018 12:10
[2018-09-26] MEDS: COLLAGENASE 5 GM (UD JAR) TOP SCH (12:45)
[2018-09-26 15:13] VITALS: BP 132/66; PULSE 123; RESP 18
--- NOTE | 2018-09-26 15:18 | PN ---
Date/Time of Note Date/Time of Note DATE: 09/26/18 TIME: 15:11 Assessment/Plan VTE Prophylaxis Risk [place] [facility] [place] risk: 3 SCD applied [place] [facility] [place] Yes Pharmacological prophylaxis: NA/contraindicated Pharm contraindication: other Lines/Catheters IV Catheter Type (from [facility]): Mid Line Urinary Cath still in place: No Assessment/Plan Hospital Course 68-year-old female history COPD, PE May 2018, CKD, who presents with: #Perforated viscus likely secondary to duodenal ulcer CT does show perforated viscus, patient has refused surgical intervention Patient appears to be clinically improving, surgery will likely order CT abdomen to reevaluate tomorrow, if perforation has sealed then NG tube will be removed #Abdominal pain-improving -CT abdomen shows small bowel obstruction and perforated viscus -NG tube has been placed -Patient refusing surgery -She has been having bloating, gas-like abdominal pain with diarrhea since admission. #Anemia - Hgb drop over hospital course currently stable, status post 1 unit - Daily diarrhea and positive fecal occult blood -GI consultation appreciated, hold off on EGD at this time # Hypoxic and hypercapnic respiratory failure: Resolved. - For now continue supplemental oxygen, bronchodilators, broad-spectrum antibiotics - PE in May 2018, currently holding Eliquis due to Hgb drop. # NSTEMI-First troponin 0.57. It was 0.407 in May of this year when she was diagnosed with PE, at that time she was diagnosed with a type II event. - Trops have now normalized. # Acute renal insufficiency: #MRSA of the nares -Bactroban Prophylaxis: SCDs DC planning: Await repeat CT abdomen which should be done tomorrow, patient may be able to live with son who can only be reached via email versus discharge to a detention, director case aware of options Result Diagram: 09/26/18 0558 09/26/18 0558 Results 24hrs Laboratory Tests Test 09/25/18 17:46 09/25/18 21:03 09/25/18 22:13 09/25/18 22:37 Bedside Glucose 93 51 L 52 L 128 Test 09/25/18 23:46 09/26/18 00:42 09/26/18 05:58 09/26/18 05:59 Bedside Glucose 100 137 115 White Blood Count 3.0 #L Red Blood Count 2.86 L Hemoglobin 8.7 L Hematocrit 26.7 L Mean Corpuscular 93.4 Volume Mean Corpuscular 30.4 Hemoglobin Mean Corpuscular 32.6 Hemoglobin Concen t Red Cell 15.6 H Distribution Width Platelet Count 228 # Mean Platelet 10.8 H Volume Immature 1.400 H Granulocytes % Neutrophils % Segmented 30 L Neutrophils % (Manual) Band Neutrophils 58 H % (Manual) Lymphocytes % Lymphocytes % 3 L (Manual) Reactive 1 H Lymphocytes % (Manual) Monocytes % Monocytes % 5 (Manual) Eosinophils % Eosinophils % 2 (Manual) Basophils % Myelocytes % 1 H (Manual) Nucleated Red 0.0 Blood Cells % Immature 0.040 H Granulocytes # Neutrophils # Neutrophils # 1.0 L (Manual) Band Neutrophils 1.7 H # Lymphocytes 0.0 L (Manual) Lymphocytes # Reactive 0.0 Lymphocytes # Monocytes # Monocytes # 0.1 L (Manual) Eosinophils # Basophils # Myelocytes # 0.0 Nucleated Red Blood Cells # Platelet Estimate NORMAL Polychromasia 3+ Hypochromasia 1+ Anisocytosis 1+ Macrocytosis 1+ Sodium Level 136 Potassium Level 3.2 L Chloride Level 102 Carbon Dioxide 29 Level Anion Gap 5 Blood Urea 12 Nitrogen Creatinine 0.56 Est Glomerular > 60 Filtrat Rate mL/min Glucose Level 119 Calcium Level 7.4 L Phosphorus Level 2.5 Magnesium Level 1.7 Test 09/26/18 07:38 09/26/18 08:41 09/26/18 09:27 09/26/18 12:40 Lab Scanned BLOOD TRANSFUSIO Report N Bedside Glucose 60 L 93 56 L Test 09/26/18 13:25 09/26/18 13:55 Bedside Glucose 64 L 71 Subjective 24 Hr Interval Summary Constitutional: no complaints Exam/Review of Systems Exam Vitals Vital Signs Date Temp Pulse Resp B/P (MAP) Pulse Ox O2 O2 Flow FiO2 Time Delivery Rate 09/26/18 98.3 123 18 129/59 99 11:33 (82) 09/26/18 2.0 08:08 09/26/18 Nasal 05:31 Cannula Intake and Output 09/25/18 09/25/18 09/26/18 1515:00 23:00 07:00 IntakeIntake Total 200 ml 1350 ml OutputOutput Total 1 ml BalanceBalance 199 ml 1350 ml Constitutional: alert, oriented Respiratory: clear to auscultation Cardiovascular: regular rate and rhythm Gastrointestinal: soft; No distended Musculoskeletal: nl extremities to inspection Results Results 24hrs Laboratory Tests Test 09/25/18 17:46 09/25/18 21:03 09/25/18 22:13 09/25/18 22:37 Bedside Glucose 93 51 L 52 L 128 Test 09/25/18 23:46 09/26/18 00:42 09/26/18 05:58 09/26/18 05:59 Bedside Glucose 100 137 115 White Blood Count 3.0 #L Red Blood Count 2.86 L Hemoglobin 8.7 L Hematocrit 26.7 L Mean Corpuscular 93.4 Volume Mean Corpuscular 30.4 Hemoglobin Mean Corpuscular 32.6 Hemoglobin Concen t Red Cell 15.6 H Distribution Width Platelet Count 228 # Mean Platelet 10.8 H Volume Immature 1.400 H Granulocytes % Neutrophils % Segmented 30 L Neutrophils % (Manual) Band Neutrophils 58 H % (Manual) Lymphocytes % Lymphocytes % 3 L (Manual) Reactive 1 H Lymphocytes % (Manual) Monocytes % Monocytes % 5 (Manual) Eosinophils % Eosinophils % 2 (Manual) Basophils % Myelocytes % 1 H (Manual) Nucleated Red 0.0 Blood Cells % Immature 0.040 H Granulocytes # Neutrophils # Neutrophils # 1.0 L (Manual) Band Neutrophils 1.7 H # Lymphocytes 0.0 L (Manual) Lymphocytes # Reactive 0.0 Lymphocytes # Monocytes # Monocytes # 0.1 L (Manual) Eosinophils # Basophils # Myelocytes # 0.0 Nucleated Red Blood Cells # Platelet Estimate NORMAL Polychromasia 3+ Hypochromasia 1+ Anisocytosis 1+ Macrocytosis 1+ Sodium Level 136 Potassium Level 3.2 L Chloride Level 102 Carbon Dioxide 29 Level Anion Gap 5 Blood Urea 12 Nitrogen Creatinine 0.56 Est Glomerular > 60 Filtrat Rate mL/min Glucose Level 119 Calcium Level 7.4 L Phosphorus Level 2.5 Magnesium Level 1.7 Test 09/26/18 07:38 09/26/18 08:41 09/26/18 09:27 09/26/18 12:40 Lab Scanned BLOOD TRANSFUSIO Report N Bedside Glucose 60 L 93 56 L Test 09/26/18 13:25 09/26/18 13:55 Bedside Glucose 64 L 71 Medications Medication Current Medications IV Flush (NS 3 ml) 3 ml PER PROTOCOL IV ; Start 09/15/18 at 07:30 Ondansetron HCl (Zofran Inj) 4 mg Q6H PRN IV NAUSEA/VOMITING Last administered on 09/19/18 07:53; Admin Dose 4 MG; Start 09/15/18 at 07:30 Acetaminophen (Tylenol Tab) 650 mg Q6H PRN PO .PAIN 1-3 OR TEMP Last administered on 09/16/18 21:56; Admin Dose 650 MG; Start 09/15/18 at 07:30 Baclofen (Lioresal) 10 mg BID PO Last administered on 09/23/18 09:45; Admin Dose 10 MG; Start 09/15/18 at 09:00; Status Hold Buspirone HCl (Buspar) 10 mg BID PO Last administered on 09/23/18 11:44; Admin Dose 10 MG; Start 09/15/18 at 09:00; Status Hold Calcium Carbonate (Oyster Shell Calcium) 1.25 gm BID PO Last administered on 09/23/18 11:44; Admin Dose 1.25 GM; Start 09/15/18 at 09:00; Status Hold Clonazepam (Klonopin) 0.5 mg DAILY PRN PO ANXIETY Last administered on 09/23/18 02:04; Admin Dose 0.5 MG; Start 09/15/18 at 07:30; Status Hold Docusate Sodium (Colace) 100 mg BID PO Last administered on 09/23/18 09:43; Admin Dose 100 MG; Start 09/15/18 at 09:00; Status Hold Rifaximin (Xifaxan) 550 mg BID PO Last administered on 09/22/18 21:42; Admin Dose 550 MG; Start 09/15/18 at 09:00; Status Hold Sertraline HCl (Zoloft) 100 mg DAILY PO ; Start 09/15/18 at 09:00; Status Hold Fluticasone/ Vilanterol (Breo Ellipta 200-25 Mcg Inh) 1 inh DAILY INH Last administered on 09/23/18 11:39; Admin Dose 1 INH; Start 09/15/18 at 09:00 Albuterol/ Ipratropium (Duoneb) 3 ml Q3H RESP THERAPY PRN HHN WHEEZING AND SOB Last administered on 09/21/18 21:08; Admin Dose 3 ML; Start 09/15/18 at 08:00 Levalbuterol (Xopenex Neb) 0.63 mg Q4H RESP THERAPY HHN Last administered on 09/26/18 05:31; Admin Dose 0.63 MG; Start 09/15/18 at 17:00 Levalbuterol (Xopenex Neb) 0.63 mg Q2H RESP THERAPY PRN HHN WHEEZING AND SOB; Start 09/15/18 at 14:00 Collagenase (Santyl) 1 applic DAILY TOP Last administered on 09/26/18 12:45; Admin Dose 1 APPLIC; Start 09/16/18 at 15:00 Acetaminophen/ Hydrocodone Bitart ([place] (5/325)) 1 tab Q6H PRN PO MODERATE PAIN LEVEL 4-6 Last administered on 09/25/18 23:44; Admin Dose 1 TAB; Start 09/17/18 at 11:30 Methadone HCl (Methadone Liq) 15 mg Q8 PRN PO SEVERE PAIN Last administered on 09/25/18 21:44; Admin Dose 15 MG; Start 09/17/18 at 18:30 Apixaban (Eliquis) 5 mg BID PO Last administered on 09/23/18 09:45; Admin Dose 5 MG; Start 09/19/18 at 21:00; Status Hold Multivitamins Therapeutic (Theragran) 1 tab DAILY PO Last administered on 09/23/18 09:43; Admin Dose 1 TAB; Start 09/19/18 at 12:00 Ascorbic Acid (Vitamin C) 500 mg DAILY PO Last administered on 09/23/18 09:45; Admin Dose 500 MG; Start 09/19/18 at 12:00; Status Hold Zinc Sulfate (Zinc Sulfate) 220 mg DAILY PO Last administered on 09/22/18 08:50; Admin Dose 220 MG; Start 09/19/18 at 12:00; Status Hold Thiamine HCl (Vitamin B1) 50 mg DAILY PO Last administered on 09/23/18 09:45; Admin Dose 50 MG; Start 09/19/18 at 12:00; Status Hold Simethicone (Mylicon) 80 mg Q6H PRN PO DISTENSION/GAS/BLOATING Last administered on 09/22/18 23:50; Admin Dose 80 MG; Start 09/20/18 at 06:30 Diltiazem HCl (Cardizem Cd) 120 mg DAILY PO Last administered on 09/23/18 11:41; Admin Dose 120 MG; Start 09/20/18 at 09:00; Status Hold Zolpidem Tartrate (Ambien) 5 mg HS PRN PO INSOMNIA Last administered on 09/24/18 01:16; Admin Dose 5 MG; Start 09/21/18 at 02:00; Status Hold Phenol (Cepastat Lozenge) 1 lozenge Q1H PRN MT SORE THROAT Last administered on 09/22/18 03:32; Admin Dose 1 LOZENGE; Start 09/22/18 at 01:00 Levofloxacin (Levaquin) 500 mg DAILY@06 PO Last administered on 09/23/18 07:21; Admin Dose 500 MG; Start 09/23/18 at 06:00; Status Hold Metronidazole 100 ml @ 100 mls/hr Q8 IVPB Last administered on 09/23/18 22:03; Admin Dose 100 MLS/HR; Start 09/23/18 at 14:00; Status Hold Prednisone (Prednisone) 40 mg DAILY PO ; Start 09/24/18 at 09:00; Stop 09/28/18 at 09:00 Dextrose/Sodium Chloride 1,000 ml @ 70 mls/hr [id number] IV Last administered on 09/26/18 06:04; Admin Dose 70 MLS/HR; Start 09/23/18 at 22:30 Insulin Aspart (Novolog Insulin Pen) NOVOLOG *MILD* ALGORI... Q4 SC ; Start 09/24/18 at 01:00 Vancomycin HCl (Vanco Iv Per Pharmacy) VANCOMYCIN PER PHARMACY PER PROTOCOL XX ; Start 09/24/18 at 02:30 Meropenem/Sodium Chloride 50 ml @ 100 mls/hr Q8H IVPB Last administered on 09/26/18 12:49; Admin Dose 100 MLS/HR; Start 09/24/18 at 02:30 Vancomycin HCl 100 ml @ 100 mls/hr Q24H IVPB Last administered on 09/26/18 03:24; Admin Dose 100 MLS/HR; Start 09/25/18 at 03:00 Hydromorphone HCl (Dilaudid) 0.5 mg Q4H PRN IV SEVERE PAIN LEVEL 7-10 Last administered on 09/26/18 03:25; Admin Dose 0.5 MG; Start 09/24/18 at 03:00 Lorazepam (Ativan) 0.5 mg Q6H PRN IV ANXIETY Last administered on 09/25/18at 22:31; Admin Dose 0.5 MG; Start 09/24/18 at 03:00 Miscellaneous Information (*Rx Drug Level Order Reminder*) VANCOMYCIN TROUGH LEVEL 0200 ONCE XX ; Start 09/27/18 at 02:00; Stop 09/27/18 at 02:01 Pantoprazole (Protonix Iv) 40 mg BID@06,18 IV Last administered on 09/26/18at 06:03; Admin Dose 40 MG; Start 09/24/18 at 18:00 Miscellaneous Information 1 ea NOTE XX ; Start 09/25/18 at 22:00 Glucose (Glutose) 15 gm Q15M PRN PO DECREASED GLUCOSE; Start 09/25/18 at 22:00 Glucose (Glutose) 22.5 gm Q15M PRN PO DECREASED GLUCOSE; Start 09/25/18 at 22:00 Dextrose (D50w Syringe) 25 ml Q15M PRN IV DECREASED GLUCOSE Last administered on 09/26/18at 13:31; Admin Dose 25 ML; Start 09/25/18 at 22:00 Dextrose (D50w Syringe) 50 ml Q15M PRN IV DECREASED GLUCOSE; Start 09/25/18 at 22:00 Glucagon (Glucagen) 1 mg Q15M PRN IM DECREASED GLUCOSE; Start 09/25/18 at 22:00 Glucose (Glutose) 15 gm Q15M PRN BUCCAL DECREASED GLUCOSE; Start 09/25/18 at 22:00 DENZEL HOFFMANN Sep 26, 2018 15:17
[2018-09-26] MEDS ORDERED: morphine 2 MG INJ IV STA (18:32)
[2018-09-26 20:00] VITALS: BP 126/67; PULSE 118; RESP 18
[2018-09-26] MEDS: MUPIROCIN 2% 22 GM OINT TOP SCH (21:42)
--- NOTE | 2018-09-26 22:31 | CONS ---
DATE OF ADMISSION: 09/15/2018 DATE OF CONSULTATION: 09/26/2018 TYPE OF CONSULTATION: Infectious Disease. REASON FOR CONSULTATION: Antibiotic management. HISTORY OF PRESENT ILLNESS: Elise Hernandez is a 68-year-old female who was admitted on the and i s being seen now for antibiotic management. The patient is a 68-year-old female with history of COPD , previous pulmonary emboli, psychiatric disorder, chronic renal disease, hepatitis C, who was priyanka t to the emergency room after noticing dyspnea progressively worse requiring BiPAP. She was noted to have elevated renal function as well. She continued to have good urine output. She was seen in [facility] by numerous physicians, including Dr. Poon, who noted a BUN and creatinine on admis yuni of 94/2.69. The patient was noted to have acute renal insufficiency, acute respiratory failure, non-ST myocardial infarction, sepsis of unknown source, possibly evolving pneumonia, elevated transa minase with a history of hepatitis C and hyponatremia. The patient was improving, had some vomiting on the . She had hypoxic and hypercapnic respiratory failure, slowly improving, most likely seco ndary to COPD exacerbation. She had an NSTEMI. First troponin 0.57, sepsis. Nares positive for MRS A. Lactic acid was high on admission, acute renal insufficiency, elevated transaminase, hypernatremi a. On the , her white count was 19.4, BUN and creatinine 69/1.56. She was seen by Dr. Matthew gaytan the . No respiratory distress. The patient started to complain of diarrhea as well as signifi cant left lower quadrant pain, shortness of breath resolved. Chest x-ray exam diminished, but with c lear breath sounds. The patient was on Flagyl. She was complaining of abdominal pain. On the , the white count was 7.0 with 64 polys and [address] scan of the abdomen and pelvis was done wh ich showed free intraperitoneal air concerning for perforated viscus which are in the areas of the up per abdomen. The cause could be a perforated duodenal ulcer. Negative for extravasated oral contras t. Urgent surgical consultation is advised. Distal small-bowel obstruction with upstream dilatation of the small bowel and stomach, recommend placing an enteric tube. There is abrupt kinking of the b owel at the transition point and may be due to adhesion. Inflammatory thickening of the wall of the terminal ileum and also of the distal colon extending from the distal transverse colon to the sigmoid colon. Differential diagnosis includes but not limited to infection, inflammatory bowel disease, or ischemia. Chest x-ray on the showed interval placement of an NG tube. Otherwise, no significa nt change. She received vancomycin and Zosyn for 5 days from 09/15/2018 to 09/18/2018, then Levaquin for 5 days from 09/19/2018 to 09/23/2018 and then restarted on vancomycin and meropenem on 9. The patient has perforated viscus secondary to duodenal ulcer. PHYSICAL EXAMINATION: GENERAL: She is alert, responsive, no acute distress. VITAL SIGNS: Stable. She is afebrile. SKIN: Without generalized rash. HEENT: Within normal limits. NECK: Supple. LYMPH NODES: None palpable. CHEST: Decreased breath sounds at the bases. HEART: Without murmur or gallop. ABDOMEN: Soft, nontender, without organosplenomegaly or masses. She has some tenderness diffusely i n the abdomen. LABORATORY DATA: Her white count today is 3.0, H and H 8.7 and 26. EXTREMITIES: Without cyanosis, clubbing, or edema. RECTAL AND GENITAL: Deferred. NEUROLOGIC: No focal neurological abnormality. IMPRESSION AND PLAN: A C. difficile is negative. As noted, she was on vancomycin and meropenem. I am going to stop the vancomycin and continue the meropenem, observe at this point on current therapy. She is feeling somewhat better. I will dictate my findings to the hospitalist and to the numerous consultants. It should be noted that she is refusing surgery despite severe consequences of this. S he was seen by Dr. Schumacher in surgical consultation. I will dictate my findings to the [facility] physicians. Dictated By: SALMA CARRILLO MD, JD/NTS Conf#: [id number] DID#: [id number] CC: GERALDO VARGAS MD;*End*
--- NOTE | 2018-09-26 23:25 | PN ---
Date/Time of Note Date/Time of Note DATE: 09/26/18 TIME: 23:22 Assessment/Plan Lines/Catheters IV Catheter Type (from [facility] Mid Line Cline in Place (from [facility]): No Assessment/Plan Chief Complaint/Hosp Course 1. Perforated viscous with possible small bowel obstruction with possible bowel inflammation. I had a long d/w patient as she did with hospitalist. She is refusing surgery despite severe consequences up to . Patient is refusing still. Worsening bandemia. -consider hospice -eventual contrast study to rule out continued leak -abx -supportive -fluids -medical management 2. Hypoxic and hypercapnic respiratory failure -Supplemental oxygen, bronchodilators, as needed BiPAP -Pulmonary consult 3. NSTEMI -medical/cardiac optimization 4. Sepsis, leukocytosis 2nd above -as above 5. Acute renal insufficiency judicious fluid management -avoid nephrotoxic agents 6. Elevated transaminases, history of hep C -Monitor Thank you Subjective 24 Hr Interval Summary Significant worsening bandemia. Minimal pain. No fevers or chills. No cough. No seizure. No blood per mouth or rectum. Patient still refusing surgery and fully aware of her decision. No dysuria. Exam/Review of Systems Vital Signs Vitals Vital Signs Date Temp Pulse Resp B/P (MAP) Pulse Ox O2 O2 Flow FiO2 Time Delivery Rate 09/26/18 92 18 96 Nasal 2.0 21:03 Cannula 09/26/18 97.9 126/67 20:00 (86) Intake and Output 09/25/18 09/25/18 09/26/18 1515:00 23:00 07:00 IntakeIntake Total 200 ml 1350 ml OutputOutput Total 1 ml BalanceBalance 199 ml 1350 ml Exam Free Text/Dictation Constitutional: alert, oriented (To self, Time, Situation, Location); No distress Psych: nl mood/affect; No anxiety Head: normocephalic, lacerations Eyes: nl conjunctiva, EOMI, PERRL; No icteric ENMT: nl external ears & nose, mucosa pink and moist Neck: supple, non-tender, jvd Respiratory: normal air movement; No congested cough, No labored breathing Cardiovascular: No regular rate and rhythm, No edema Gastrointestinal: soft, distended (min), tender; No rebound or guarding Musculoskeletal: nl extremities to inspection; No nl gait and stance, No joint tenderness Extremities: normal pulses Results Result Diagram: 09/26/18 0558 09/26/18 0558 JESSIKA OREILLY MD Sep 26, 2018 23:25
[2018-09-27] VITALS (7 sets, daily range): BP systolic 95–130; BP diastolic 51–65; PULSE 79–120; RESP 17–20
[2018-09-27] MEDS: LORAZEPAM 2 MG INJ IV PRN ×3 (00:05→20:17)
[2018-09-27] MEDS: INSULIN ASPART [NOVOLOG] 3 ML PEN SC SCH ×6 (01:00→20:16)
[2018-09-27] MEDS: LEVALBUTEROL (NEB) 0.63 MG/3 ML AMP HHN SCH ×6 (01:00→20:09)
[2018-09-27] MEDS: MEROPENEM 1 GM/50ML(PMX) 50 ML IVPB SCH ×3 (02:50→17:51)
[2018-09-27] MEDS: HYDROmorphONE 0.5 MG/0.5 ML SYG IV PRN ×3 (04:23→22:28)
[2018-09-27] MEDS: PANTOPRAZOLE 40 MG INJ IV SCH ×2 (06:41→17:51)
--- NOTE | 2018-09-27 07:15 | PN ---
DATE: 09/27/2018 SUBJECTIVE: The patient is stable. Patient's NG tube remains in place. No other acute events noted . No hemoptysis, hematemesis. OBJECTIVE: VITAL SIGNS: Blood pressure is 112/59, respirations 20, pulse 102, temperature 98.3. HEENT: Head is normocephalic. NECK: Supple. HEART: Regular rate. LUNGS: Show diminished breath sounds at the base. ABDOMEN: Soft, nontender to palpation without rebound or guarding. EXTREMITIES: Negative for clubbing, cyanosis, no edema. DERMATOLOGIC: No rashes. MUSCULOSKELETAL: No joint effusion. NEUROLOGIC: No change in exam. MEDICATIONS: Have been reviewed. LABORATORY DATA: Has been reviewed. ASSESSMENT AND PLAN: 1. Nonoliguric acute kidney injury. Etiology is secondary to hemodynamics. Renal function is stabi lized. Continue to monitor closely on IV fluids. 2. Hypokalemia secondary total body deficit. Continue to monitor and replete as needed. 3. Anemia. Continue to monitor hemoglobin and hematocrit levels. 4. Acute respiratory failure secondary to chronic obstructive pulmonary di exacerbation, improving. Continue bronchodilators. 5. Non-ST elevation myocardial infarction type 2. Continue to monitor. 6. Perforated viscus. The patient is being evaluated by general surgery, refusing any surgical inte rvention. Continue to monitor. Follow up with general surgery for recommendations. The patient has NG tube in place. 7. Hypernatremia, improved. 8. History of hepatitis C. 9. Leukocytosis, improving. Continue to monitor. 10. Sepsis secondary to pneumonia. Continue current antibiotic regimen. Dictated By: RICHARD JIMENEZ/KAYLYN Conf#: [id number] DID#: [id number] CC: GERALDO VARGAS MD;*EndCC*
[2018-09-27] MEDS: MULTIVITAMINS THERAPEUTIC TAB PO SCH (08:31)
[2018-09-27] MEDS: predniSONE 20 MG TAB PO SCH (08:31)
[2018-09-27] MEDS: BALSAM PERU/CASTOR OIL 60 GM TUBE TOP SCH ×2 (08:38→20:17)
[2018-09-27] MEDS: MUPIROCIN 2% 22 GM OINT TOP SCH ×2 (08:38→20:16)
[2018-09-27] MEDS: COLLAGENASE 5 GM (UD JAR) TOP SCH (08:39)
[2018-09-27] MEDS: FLUTICASONE/VILANTEROL 200-25 INH DEVICE INH SCH (08:39)
[2018-09-27] MEDS: POTASSIUM CHLORIDE 100 ML IVPB SCH ×2 (09:17→11:17)
--- NOTE | 2018-09-27 11:46 | PN ---
Date/Time of Note Date/Time of Note DATE: 09/27/18 TIME: 11:41 Assessment/Plan Lines/Catheters IV Catheter Type (from [facility]): Mid Line Cline in Place (from [facility]): No Assessment/Plan Chief Complaint/Hosp Course 1. Perforated viscous with possible small bowel obstruction with possible bowel inflammation. long d/w patient-she is refusing surgery despite severe cons equences up to . Patient is refusing still. Worsening bandemia. -consider hospice -eventual contrast study to rule out continued leak> will await the bandemia improvement -abx per ID -supportive -fluids -medical management -NGT to low intermittent wall suction -Strict n.p.o. 2. Hypoxic and hypercapnic respiratory failure -Supplemental oxygen, bronchodilators, as needed BiPAP -Pulmonary consult 3. NSTEMI -medical/cardiac optimization 4. Sepsis, leukopenia 2nd above -as above 5. Acute renal insufficiency improved judicious fluid management -avoid nephrotoxic agents 6. Elevated transaminases, history of hep C -Monitor 7. Chronic methadone use: -Consider palliative/pain management consult for pain management since unable to have methadone per oral route Thank you. Patient seen and examined in collaboration with Dr. Naveed Schumacher. Subjective 24 Hr Interval Summary Abdominal distention and discomfort improved from yesterday. + Bowel function. No fevers, labored breathing, congested cough, vomiting, diarrhea, seizure, rash. Exam/Review of Systems Vital Signs Vitals Vital Signs Date Temp Pulse Resp B/P (MAP) Pulse Ox O2 O2 Flow FiO2 Time Delivery Rate 09/27/18 98.6 115 17 109/51 96 11:12 (70) 09/27/18 2.0 09:08 09/27/18 Nasal 08:00 Cannula Intake and Output 09/26/18 09/26/18 09/27/18 1515:00 23:00 07:00 IntakeIntake Total 250 ml 1040 ml 1000 ml OutputOutput Total 100 ml BalanceBalance 250 ml 940 ml 1000 ml Exam Free Text/Dictation Constitutional: alert, oriented (To self, Time, Situation, Location); No distress Psych: nl mood/affect; No anxiety Head: normocephalic, lacerations Eyes: nl conjunctiva, EOMI, PERRL; No icteric ENMT: nl external ears & nose, mucosa pink and moist Neck: supple, non-tender, jvd Respiratory: normal air movement; No congested cough, No labored breathing Cardiovascular: No regular rate and rhythm, No edema Gastrointestinal: soft, distended (min), tender; No rebound or guarding Musculoskeletal: nl extremities to inspection; No nl gait and stance, No joint tenderness Extremities: normal pulses Results Result Diagram: 09/27/18 0643 09/27/18 0643 RAFAEL EMERY NP Sep 27, 2018 11:46
--- NOTE | 2018-09-27 12:53 | CONS ---
Consult Date/Type/Reason Admit Date/Time Sep 15, 2018 at 03:32 Initial Consult Date 09/15/18 Type of Consult Pulmonary Requesting Provider: LEOBARDO DC Date/Time of Note DATE: 09/27/18 TIME: 12:47 Subjective Patient comfortable no new events. Objective Vital Signs Date Temp Pulse Resp B/P (MAP) Pulse Ox O2 O2 Flow FiO2 Time Delivery Rate 09/27/18 98.6 115 17 109/51 96 11:12 (70) 09/27/18 2.0 09:08 09/27/18 Nasal 08:00 Cannula Intake and Output 09/26/18 09/26/18 09/27/18 1515:00 23:00 07:00 IntakeIntake Total 250 ml 1040 ml 1000 ml OutputOutput Total 100 ml BalanceBalance 250 ml 940 ml 1000 ml Exam GENERAL: VITAL SIGNS: per chart NECK: Supple. No JVD or lymphadenopathy. CARDIAC EXAM: S1, S2. No added sounds or murmurs. CHEST: Diminished air entry bilaterally ABDOMEN: Diminished bowel sounds EXTREMITIES: No cyanosis, clubbing or edema. NEUROLOGIC: Generalized weakness. No focal deficits. Thin elderly lady appears comfortable at rest Vent Setting Fraction of Inspired Oxygen pe: 21 Results/Medications Result Diagram: 09/27/18 0643 09/27/18 0643 Results 24 hrs Laboratory Tests Test 09/26/18 13:25 09/26/18 13:55 09/26/18 17:49 09/26/18 21:27 Bedside Glucose 64 L 71 79 68 L Test 09/26/18 21:48 09/26/18 22:18 09/26/18 23:50 09/27/18 02:45 Bedside Glucose 104 88 93 Glucose Level 124 Test 09/27/18 06:31 09/27/18 06:43 09/27/18 08:35 Bedside Glucose 108 109 White Blood Count 3.4 L Red Blood Count 2.76 L Hemoglobin 8.2 L Hematocrit 25.9 L Mean Corpuscular 93.8 Volume Mean Corpuscular 29.7 Hemoglobin Mean Corpuscular 31.7 L Hemoglobin Concent Red Cell 15.7 H Distribution Width Platelet Count 173 # Mean Platelet Volume 11.4 H Immature 0.900 H Granulocytes % Neutrophils % Segmented 19 L Neutrophils % (Manual) Band Neutrophils % 57 H (Manual) Lymphocytes % Lymphocytes % 6 L (Manual) Monocytes % Monocytes % (Manual) 10 Eosinophils % Eosinophils % 7 (Manual) Basophils % Metamyelocytes % 1 H (manual) Nucleated Red Blood 0.0 Cells % Immature 0.030 Granulocytes # Neutrophils # Neutrophils # 0.7 L (Manual) Band Neutrophils # 1.9 H Lymphocytes (Manual) 0.2 L Lymphocytes # Monocytes # Monocytes # (Manual) 0.3 Eosinophils # Basophils # Metamyelocytes # 0.0 Nucleated Red Blood Cells # Platelet Estimate NORMAL Giant Platelets 2 H Polychromasia 2+ Poikilocytosis 1+ Anisocytosis 1+ Macrocytosis 1+ Sodium Level 131 L Potassium Level 2.9 *L Chloride Level 98 Carbon Dioxide Level 30 Anion Gap 3 L Blood Urea Nitrogen 8 Creatinine 0.47 Est Glomerular > 60 Filtrat Rate mL/min Glucose Level 104 Calcium Level 7.1 L Medications Current Medications IV Flush (NS 3 ml) 3 ml PER PROTOCOL IV ; Start 09/15/18 at 07:30 Ondansetron HCl (Zofran Inj) 4 mg Q6H PRN IV NAUSEA/VOMITING Last administered on 09/19/18 07:53; Admin Dose 4 MG; Start 09/15/18 at 07:30 Acetaminophen (Tylenol Tab) 650 mg Q6H PRN PO .PAIN 1-3 OR TEMP Last administered on 09/16/18 21:56; Admin Dose 650 MG; Start 09/15/18 at 07:30 Baclofen (Lioresal) 10 mg BID PO Last administered on 09/23/18 09:45; Admin Dose 10 MG; Start 09/15/18 at 09:00; Status Hold Buspirone HCl (Buspar) 10 mg BID PO Last administered on 09/23/18 11:44; Admin Dose 10 MG; Start 09/15/18 at 09:00; Status Hold Calcium Carbonate (Oyster Shell Calcium) 1.25 gm BID PO Last administered on 09/23/18 11:44; Admin Dose 1.25 GM; Start 09/15/18 at 09:00; Status Hold Clonazepam (Klonopin) 0.5 mg DAILY PRN PO ANXIETY Last administered on 09/23/18 02:04; Admin Dose 0.5 MG; Start 09/15/18 at 07:30; Status Hold Docusate Sodium (Colace) 100 mg BID PO Last administered on 09/23/18 09:43; Admin Dose 100 MG; Start 09/15/18 at 09:00; Status Hold Rifaximin (Xifaxan) 550 mg BID PO Last administered on 09/22/18 21:42; Admin Dose 550 MG; Start 09/15/18 at 09:00; Status Hold Sertraline HCl (Zoloft) 100 mg DAILY PO ; Start 09/15/18 at 09:00; Status Hold Fluticasone/ Vilanterol (Breo Ellipta 200-25 Mcg Inh) 1 inh DAILY INH Last administered on 09/27/18 08:39; Admin Dose 1 INH; Start 09/15/18 at 09:00 Albuterol/ Ipratropium (Duoneb) 3 ml Q3H RESP THERAPY PRN HHN WHEEZING AND SOB Last administered on 09/21/18 21:08; Admin Dose 3 ML; Start 09/15/18 at 08:00 Levalbuterol (Xopenex Neb) 0.63 mg Q4H RESP THERAPY HHN Last administered on 09/26/18 21:03; Admin Dose 0.63 MG; Start 09/15/18 at 17:00 Levalbuterol (Xopenex Neb) 0.63 mg Q2H RESP THERAPY PRN HHN WHEEZING AND SOB; Start 09/15/18 at 14:00 Collagenase (Santyl) 1 applic DAILY TOP Last administered on 09/27/18 08:39; Admin Dose 1 APPLIC; Start 09/16/18 at 15:00 Acetaminophen/ Hydrocodone Bitart ([place] (5/325)) 1 tab Q6H PRN PO MODERATE PAIN LEVEL 4-6 Last administered on 09/25/18 23:44; Admin Dose 1 TAB; Start 09/17/18 at 11:30 Methadone HCl (Methadone Liq) 15 mg Q8 PRN PO SEVERE PAIN Last administered on 09/25/18 21:44; Admin Dose 15 MG; Start 09/17/18 at 18:30 Apixaban (Eliquis) 5 mg BID PO Last administered on 09/23/18 09:45; Admin Dose 5 MG; Start 09/19/18 at 21:00; Status Hold Multivitamins Therapeutic (Theragran) 1 tab DAILY PO Last administered on 09/23 09:43; Admin Dose 1 TAB; Start 09/19/18 at 12:00 Ascorbic Acid (Vitamin C) 500 mg DAILY PO Last administered on 09/23/18 09:45; Admin Dose 500 MG; Start 09/19/18 at 12:00; Status Hold Zinc Sulfate (Zinc Sulfate) 220 mg DAILY PO Last administered on 09/22/18 08:50; Admin Dose 220 MG; Start 09/19/18 at 12:00; Status Hold Thiamine HCl (Vitamin B1) 50 mg DAILY PO Last administered on 09/23/18 09:45; Admin Dose 50 MG; Start 09/19/18 at 12:00; Status Hold Simethicone (Mylicon) 80 mg Q6H PRN PO DISTENSION/GAS/BLOATING Last administered on 09/22/18 23:50; Admin Dose 80 MG; Start 09/20/18 at 06:30 Diltiazem HCl (Cardizem Cd) 120 mg DAILY PO Last administered on 09/23/18 11:41; Admin Dose 120 MG; Start 09/20/18 at 09:00; Status Hold Zolpidem Tartrate (Ambien) 5 mg HS PRN PO INSOMNIA Last administered on 09/24/18 01:16; Admin Dose 5 MG; Start 09/21/18 at 02:00; Status Hold Phenol (Cepastat Lozenge) 1 lozenge Q1H PRN MT SORE THROAT Last administered on 09/22/18 03:32; Admin Dose 1 LOZENGE; Start 09/22/18 at 01:00 Levofloxacin (Levaquin) 500 mg DAILY@06 PO Last administered on 09/23/18 07:21; Admin Dose 500 MG; Start 09/23/18 at 06:00; Status Hold Metronidazole 100 ml @ 100 mls/hr Q8 IVPB Last administered on 09/23/18 22:03; Admin Dose 100 MLS/HR; Start 09/23/18 at 14:00; Status Hold Prednisone (Prednisone) 40 mg DAILY PO ; Start 09/24/18 at 09:00; Stop 09/28/18 at 09:00 Insulin Aspart (Novolog Insulin Pen) NOVOLOG *MILD* ALGORI... Q4 SC ; Start 09/24/18 at 01:00 Meropenem/Sodium Chloride 50 ml @ 100 mls/hr Q8H IVPB Last administered on 09/27/18at 10:45; Admin Dose 100 MLS/HR; Start 09/24/18 at 02:30 Hydromorphone HCl (Dilaudid) 0.5 mg Q4H PRN IV SEVERE PAIN LEVEL 7-10 Last administered on 09/27/18at 04:23; Admin Dose 0.5 MG; Start 09/24/18 at 03:00 Lorazepam (Ativan) 0.5 mg Q6H PRN IV ANXIETY Last administered on 09/27/18at 08:46; Admin Dose 0.5 MG; Start 09/24/18 at 03:00 Pantoprazole (Protonix Iv) 40 mg BID@06,18 IV Last administered on 09/27/18at 06:41; Admin Dose 40 MG; Start 09/24/18 at 18:00 Miscellaneous Information 1 ea NOTE XX ; Start 09/25/18 at 22:00 Glucose (Glutose) 15 gm Q15M PRN PO DECREASED GLUCOSE; Start 09/25/18 at 22:00 Glucose (Glutose) 22.5 gm Q15M PRN PO DECREASED GLUCOSE; Start 09/25/18 at 22:00 Dextrose (D50w Syringe) 25 ml Q15M PRN IV DECREASED GLUCOSE Last administered on 09/26/18at 21:39; Admin Dose 25 ML; Start 09/25/18 at 22:00 Dextrose (D50w Syringe) 50 ml Q15M PRN IV DECREASED GLUCOSE; Start 09/25/18 at 22:00 Glucagon (Glucagen) 1 mg Q15M PRN IM DECREASED GLUCOSE; Start 09/25/18 at 22:00 Glucose (Glutose) 15 gm Q15M PRN BUCCAL DECREASED GLUCOSE; Start 09/25/18 at 22:00 Mupirocin (Bactroban) 1 applic BID TOP Last administered on 09/27/18at 08:38; Admin Dose 1 APPLIC; Start 09/26/18 at 21:00; Stop 10/06/18 at 09:01 Potassium Chloride 100 ml @ 50 mls/hr Q2H IVPB Last administered on 09/27/18at 11:17; Admin Dose 50 MLS/HR; Start 09/27/18 at 09:00; Stop 09/27/18 at 12:59 Assessment/Plan Hospital Course (Demo Recall) IMP: 1. Possible perforated PUD--refusing intervention 2. Chronic obstructive pulmonary disease with acute exacerbation. 3. Type 2 NSTEMI 4. s/p Dehydration and renal insufficiency. 5. History of venous thromboembolism--anticoagulation on hold RECS: 1. Continue to hold ATC; follow H/H 2. Taper off CS 3. BDs 4. Aspiration precautions quesada when stable. EMMA STEINBERG MD, [facility] Sep 27, 2018 12:52
--- NOTE | 2018-09-27 13:46 | CONS ---
Assessment/Plan Assessment/Plan Hospital Course (Demo Recall) No acute changes patient looks comfortable no fevers overnight WBC 3.4 H&H 8.2 and 25.9 platelets 173 bands 57. BUN 8 creatinine 0.47. Abx: [place] HEENT: Within normal limits. NECK: Supple. CHEST: Decreased breath sounds at the bases. HEART: S1 S2 ABDOMEN: She has some tenderness diffusely in the abdomen. EXTREMITIES: Without cyanosis, clubbing, or edema. Assessment: 1. Perforated viscus with possible small bowel obstruction 2. Non-ST elevation DE 3. COPD Plan: Patient remains unchanged, surgery on case, family refused surgical intervention, continue on current antibiotics Consultation Date/Type/Reason Admit Date/Time Sep 15, 2018 at 03:32 Initial Consult Date 09/24/18 Type of Consult id Requesting Provider: LEOBARDO DC Date/Time of Note DATE: 09/27/18 TIME: 13:46 Exam/Review of Systems Exam Vitals Vital Signs Date Temp Pulse Resp B/P (MAP) Pulse Ox O2 O2 Flow FiO2 Time Delivery Rate 09/27/18 98.6 115 17 109/51 96 11:12 (70) 09/27/18 2.0 09:08 09/27/18 Nasal 08:00 Cannula Intake and Output 09/26/18 09/26/18 09/27/18 1515:00 23:00 07:00 IntakeIntake Total 250 ml 1040 ml 1000 ml OutputOutput Total 100 ml BalanceBalance 250 ml 940 ml 1000 ml Results Result Diagram: 09/27/18 0643 09/27/18 0643 Results 24hrs Laboratory Tests Test 09/26/18 13:55 09/26/18 17:49 09/26/18 21:27 09/26/18 21:48 Bedside Glucose 71 79 68 L 104 Test 09/26/18 22:18 09/26/18 23:50 09/27/18 02:45 09/27/18 06:31 Bedside Glucose 88 93 108 Glucose Level 124 Test 09/27/18 06:43 09/27/18 08:35 09/27/18 12:52 White Blood Count 3.4 L Red Blood Count 2.76 L Hemoglobin 8.2 L Hematocrit 25.9 L Mean Corpuscular 93.8 Volume Mean Corpuscular 29.7 Hemoglobin Mean Corpuscular 31.7 L Hemoglobin Concent Red Cell 15.7 H Distribution Width Platelet Count 173 # Mean Platelet Volume 11.4 H Immature 0.900 H Granulocytes % Neutrophils % Segmented 19 L Neutrophils % (Manual) Band Neutrophils % 57 H (Manual) Lymphocytes % Lymphocytes % 6 L (Manual) Monocytes % Monocytes % (Manual) 10 Eosinophils % Eosinophils % 7 (Manual) Basophils % Metamyelocytes % 1 H (manual) Nucleated Red Blood 0.0 Cells % Immature 0.030 Granulocytes # Neutrophils # Neutrophils # 0.7 L (Manual) Band Neutrophils # 1.9 H Lymphocytes (Manual) 0.2 L Lymphocytes # Monocytes # Monocytes # (Manual) 0.3 Eosinophils # Basophils # Metamyelocytes # 0.0 Nucleated Red Blood Cells # Platelet Estimate NORMAL Giant Platelets 2 H Polychromasia 2+ Poikilocytosis 1+ Anisocytosis 1+ Macrocytosis 1+ Sodium Level 131 L Potassium Level 2.9 *L Chloride Level 98 Carbon Dioxide Level 30 Anion Gap 3 L Blood Urea Nitrogen 8 Creatinine 0.47 Est Glomerular > 60 Filtrat Rate mL/min Glucose Level 104 Calcium Level 7.1 L Bedside Glucose 109 120 Medications Medication Current Medications IV Flush (NS 3 ml) 3 ml PER PROTOCOL IV ; Start 09/15/18 at 07:30 Ondansetron HCl (Zofran Inj) 4 mg Q6H PRN IV NAUSEA/VOMITING Last administered on 09/19/18 07:53; Admin Dose 4 MG; Start 09/15/18 at 07:30 Acetaminophen (Tylenol Tab) 650 mg Q6H PRN PO .PAIN 1-3 OR TEMP Last administered on 09/16/18 21:56; Admin Dose 650 MG; Start 09/15/18 at 07:30 Baclofen (Lioresal) 10 mg BID PO Last administered on 09/23/18 09:45; Admin Dose 10 MG; Start 09/15/18 at 09:00; Status Hold Buspirone HCl (Buspar) 10 mg BID PO Last administered on 09/23/18 11:44; Admin Dose 10 MG; Start 09/15/18 at 09:00; Status Hold Calcium Carbonate (Oyster Shell Calcium) 1.25 gm BID PO Last administered on 09/23/18 11:44; Admin Dose 1.25 GM; Start 09/15/18 at 09:00; Status Hold Clonazepam (Klonopin) 0.5 mg DAILY PRN PO ANXIETY Last administered on 09/23/18 02:04; Admin Dose 0.5 MG; Start 09/15/18 at 07:30; Status Hold Docusate Sodium (Colace) 100 mg BID PO Last administered on 09/23/18 09:43; Admin Dose 100 MG; Start 09/15/18 at 09:00; Status Hold Rifaximin (Xifaxan) 550 mg BID PO Last administered on 09/22/18 21:42; Admin Dose 550 MG; Start 09/15/18 at 09:00; Status Hold Sertraline HCl (Zoloft) 100 mg DAILY PO ; Start 09/15/18 at 09:00; Status Hold Fluticasone/ Vilanterol (Breo Ellipta 200-25 Mcg Inh) 1 inh DAILY INH Last administered on 09/27/18 08:39; Admin Dose 1 INH; Start 09/15/18 at 09:00 Albuterol/ Ipratropium (Duoneb) 3 ml Q3H RESP THERAPY PRN HHN WHEEZING AND SOB Last administered on 09/21/18 21:08; Admin Dose 3 ML; Start 09/15/18 at 08:00 Levalbuterol (Xopenex Neb) 0.63 mg Q4H RESP THERAPY HHN Last administered on 09/26/18 21:03; Admin Dose 0.63 MG; Start 09/15/18 at 17:00 Levalbuterol (Xopenex Neb) 0.63 mg Q2H RESP THERAPY PRN HHN WHEEZING AND SOB; Start 09/15/18 at 14:00 Collagenase (Santyl) 1 applic DAILY TOP Last administered on 09/27/18 08:39; Admin Dose 1 APPLIC; Start 09/16/18 at 15:00 Acetaminophen/ Hydrocodone Bitart ([place] (5/325)) 1 tab Q6H PRN PO MODERATE PA IN LEVEL 4-6 Last administered on 09/25/18 23:44; Admin Dose 1 TAB; Start 09/17/18 at 11:30 Methadone HCl (Methadone Liq) 15 mg Q8 PRN PO SEVERE PAIN Last administered on 09/25/18 21:44; Admin Dose 15 MG; Start 09/17/18 at 18:30 Apixaban (Eliquis) 5 mg BID PO Last administered on 09/23/18 09:45; Admin Dose 5 MG; Start 09/19/18 at 21:00; Status Hold Multivitamins Therapeutic (Theragran) 1 tab DAILY PO Last administered on 09/23/18 09:43; Admin Dose 1 TAB; Start 09/19/18 at 12:00 Ascorbic Acid (Vitamin C) 500 mg DAILY PO Last administered on 09/23/18 09:45; Admin Dose 500 MG; Start 09/19/18 at 12:00; Status Hold Zinc Sulfate (Zinc Sulfate) 220 mg DAILY PO Last administered on 09/22/18 08:50; Admin Dose 220 MG; Start 09/19/18 at 12:00; Status Hold Thiamine HCl (Vitamin B1) 50 mg DAILY PO Last administered on 09/23/18 09:45; Admin Dose 50 MG; Start 09/19/18 at 12:00; Status Hold Simethicone (Mylicon) 80 mg Q6H PRN PO DISTENSION/GAS/BLOATING Last administered on 09/22/18 23:50; Admin Dose 80 MG; Start 09/20/18 at 06:30 Diltiazem HCl (Cardizem Cd) 120 mg DAILY PO Last administered on 09/23/18 11:41; Admin Dose 120 MG; Start 09/20/18 at 09:00; Status Hold Zolpidem Tartrate (Ambien) 5 mg HS PRN PO INSOMNIA Last administered on 09/24/18 01:16; Admin Dose 5 MG; Start 09/21/18 at 02:00; Status Hold Phenol (Cepastat Lozenge) 1 lozenge Q1H PRN MT SORE THROAT Last administered on 09/22/18 03:32; Admin Dose 1 LOZENGE; Start 09/22/18 at 01:00 Levofloxacin (Levaquin) 500 mg DAILY@06 PO Last administered on 09/23/18 07:21; Admin Dose 500 MG; Start 09/23/18 at 06:00; Status Hold Metronidazole 100 ml @ 100 mls/hr Q8 IVPB Last administered on 09/23/18 22:03; Admin Dose 100 MLS/HR; Start 09/23/18 at 14:00; Status Hold Prednisone (Prednisone) 40 mg DAILY PO ; Start 09/24/18 at 09:00; Stop 09/28/18 at 09:00 Insulin Aspart (Novolog Insulin Pen) NOVOLOG *MILD* ALGORI... Q4 SC ; Start 09/24/18 at 01:00 Meropenem/Sodium Chloride 50 ml @ 100 mls/hr Q8H IVPB Last administered on 09/27/18at 10:45; Admin Dose 100 MLS/HR; Start 09/24/18 at 02:30 Hydromorphone HCl (Dilaudid) 0.5 mg Q4H PRN IV SEVERE PAIN LEVEL 7-10 Last administered on 09/27/18at 04:23; Admin Dose 0.5 MG; Start 09/24/18 at 03:00 Lorazepam (Ativan) 0.5 mg Q6H PRN IV ANXIETY Last administered on 09/27/18at 08:46; Admin Dose 0.5 MG; Start 09/24/18 at 03:00 Pantoprazole (Protonix Iv) 40 mg BID@06,18 IV Last administered on 09/27/18at 06:41; Admin Dose 40 MG; Start 09/24/18 at 18:00 Miscellaneous Information 1 ea NOTE XX ; Start 09/25/18 at 22:00 Glucose (Glutose) 15 gm Q15M PRN PO DECREASED GLUCOSE; Start 09/25/18 at 22:00 Glucose (Glutose) 22.5 gm Q15M PRN PO DECREASED GLUCOSE; Start 09/25/18 at 22:00 Dextrose (D50w Syringe) 25 ml Q15M PRN IV DECREASED GLUCOSE Last administered on 09/26/18at 21:39; Admin Dose 25 ML; Start 09/25/18 at 22:00 Dextrose (D50w Syringe) 50 ml Q15M PRN IV DECREASED GLUCOSE; Start 09/25/18 at 22:00 Glucagon (Glucagen) 1 mg Q15M PRN IM DECREASED GLUCOSE; Start 09/25/18 at 22:00 Glucose (Glutose) 15 gm Q15M PRN BUCCAL DECREASED GLUCOSE; Start 09/25/18 at 22:00 Mupirocin (Bactroban) 1 applic BID TOP Last administered on 09/27/18at 08:38; Admin Dose 1 APPLIC; Start 09/26/18 at 21:00; Stop 10/06/18 at 09:01 SKY HOSKINS NP Sep 27, 2018 13:46
--- NOTE | 2018-09-27 13:59 | PN ---
Date/Time of Note Date/Time of Note DATE: 09/27/18 TIME: 13:33 Assessment/Plan VTE Prophylaxis Risk score (from [facility])>0 risk: 3 SCD applied (from [facility]): Yes Pharmacological prophylaxis: other Pharm contraindication: other Lines/Catheters IV Catheter Type (from [facility]): Mid Line Urinary Cath still in place: No Assessment/Plan Assessment/Plan 1. Perforated viscous with possible small bowel obstruction with possible bowel inflammation, declines surgery, NPO/IVF, supportive care and antibiotics, follow up with surgery. 2. Respiratory failure due to COPD exacerbation, improving, neb prn 3. Mildly elevated troponin, prob hypoxia related 4. Acute kidney injury, improved 5. Normocytic anemia, chronic, follow up with H/H 6. Hypokalemia, KCL, follow up with K 7. History of hepatitis C 8. Chronic methadone use: 9. MRSA of the nares, on Bactroban 10. h/o PE in 05/2018, anticoagulant on hold 11. Prophylaxis: SCDs 12. Patient wants her code status to be DNR but she states she will consider surgery since she cannot bear the pain any more. I called her son at , no answer. Other numbers on the face sheet for family are wrong numbers.I will keep trying to talk to the son and discuss the code status and surgery issue again. Result Diagram: 09/27/18 0643 09/27/18 0643 Results 24hrs Laboratory Tests Test 09/26/18 13:55 09/26/18 17:49 09/26/18 21:27 09/26/18 21:48 Bedside Glucose 71 79 68 L 104 Test 09/26/18 22:18 09/26/18 23:50 09/27/18 02:45 09/27/18 06:31 Bedside Glucose 88 93 108 Glucose Level 124 Test 09/27/18 06:43 09/27/18 08:35 09/27/18 12:52 White Blood Count 3.4 L Red Blood Count 2.76 L Hemoglobin 8.2 L Hematocrit 25.9 L Mean Corpuscular 93.8 Volume Mean Corpuscular 29.7 Hemoglobin Mean Corpuscular 31.7 L Hemoglobin Concent Red Cell 15.7 H Distribution Width Platelet Count 173 # Mean Platelet Volume 11.4 H Immature 0.900 H Granulocytes % Neutrophils % Segmented 19 L Neutrophils % (Manual) Band Neutrophils % 57 H (Manual) Lymphocytes % Lymphocytes % 6 L (Manual) Monocytes % Monocytes % (Manual) 10 Eosinophils % Eosinophils % 7 (Manual) Basophils % Metamyelocytes % 1 H (manual) Nucleated Red Blood 0.0 Cells % Immature 0.030 Granulocytes # Neutrophils # Neutrophils # 0.7 L (Manual) Band Neutrophils # 1.9 H Lymphocytes (Manual) 0.2 L Lymphocytes # Monocytes # Monocytes # (Manual) 0.3 Eosinophils # Basophils # Metamyelocytes # 0.0 Nucleated Red Blood Cells # Platelet Estimate NORMAL Giant Platelets 2 H Polychromasia 2+ Poikilocytosis 1+ Anisocytosis 1+ Macrocytosis 1+ Sodium Level 131 L Potassium Level 2.9 *L Chloride Level 98 Carbon Dioxide Level 30 Anion Gap 3 L Blood Urea Nitrogen 8 Creatinine 0.47 Est Glomerular > 60 Filtrat Rate mL/min Glucose Level 104 Calcium Level 7.1 L Bedside Glucose 109 120 Subjective 24 Hr Interval Summary Free Text/Dictation abdominal pain Exam/Review of Systems Exam Vitals Vital Signs Date Temp Pulse Resp B/P (MAP) Pulse Ox O2 O2 Flow FiO2 Time Delivery Rate 09/27/18 98.6 115 17 109/51 96 11:12 (70) 09/27/18 2.0 09:08 09/27/18 Nasal 08:00 Cannula Intake and Output 09/26/18 09/26/18 09/27/18 1515:00 23:00 07:00 IntakeIntake Total 250 ml 1040 ml 1000 ml OutputOutput Total 100 ml BalanceBalance 250 ml 940 ml 1000 ml Constitutional: alert, oriented Head: normocephalic, atraumatic Eyes: nl conjunctiva, EOMI, nl lids ENMT: nl external ears & nose, nl lips & teeth, nl nasal mucosa & septum Neck: supple, non-tender Respiratory: clear to auscultation, normal air movement; No congested cough, No crackles/rales, No diminished breath sounds, No intercostal retraction, No labored breathing, No respirations, No tactile fremitus, No wheezing, No other Cardiovascular: regular rate and rhythm, nl pulses; No bruits, No diastolic murmur, No edema, No gallop, No irregular rhythm, No jugular venous distention (JVD), No murmurs/extra sounds, No rub, No systolic murmur, No S3, No S4, No other Gastrointestinal: firm, tender (diffuse tenderness) Musculoskeletal: nl extremities to inspection Extremities: normal pulses 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, nl mental status, nl speech, nl strength Results Results 24hrs Laboratory Tests Test 09/26/18 13:55 09/26/18 17:49 09/26/18 21:27 09/26/18 21:48 Bedside Glucose 71 79 68 L 104 Test 09/26/18 22:18 09/26/18 23:50 09/27/18 02:45 09/27/18 06:31 Bedside Glucose 88 93 108 Glucose Level 124 Test 09/27/18 06:43 09/27/18 08:35 09/27/18 12:52 White Blood Count 3.4 L Red Blood Count 2.76 L Hemoglobin 8.2 L Hematocrit 25.9 L Mean Corpuscular 93.8 Volume Mean Corpuscular 29.7 Hemoglobin Mean Corpuscular 31.7 L Hemoglobin Concent Red Cell 15.7 H Distribution Width Platelet Count 173 # Mean Platelet Volume 11.4 H Immature 0.900 H Granulocytes % Neutrophils % Segmented 19 L Neutrophils % (Manual) Band Neutrophils % 57 H (Manual) Lymphocytes % Lymphocytes % 6 L (Manual) Monocytes % Monocytes % (Manual) 10 Eosinophils % Eosinophils % 7 (Manual) Basophils % Metamyelocytes % 1 H (manual) Nucleated Red Blood 0.0 Cells % Immature 0.030 Granulocytes # Neutrophils # Neutrophils # 0.7 L (Manual) Band Neutrophils # 1.9 H Lymphocytes (Manual) 0.2 L Lymphocytes # Monocytes # Monocytes # (Manual) 0.3 Eosinophils # Basophils # Metamyelocytes # 0.0 Nucleated Red Blood Cells # Platelet Estimate NORMAL Giant Platelets 2 H Polychromasia 2+ Poikilocytosis 1+ Anisocytosis 1+ Macrocytosis 1+ Sodium Level 131 L Potassium Level 2.9 *L Chloride Level 98 Carbon Dioxide Level 30 Anion Gap 3 L Blood Urea Nitrogen 8 Creatinine 0.47 Est Glomerular > 60 Filtrat Rate mL/min Glucose Level 104 Calcium Level 7.1 L Bedside Glucose 109 120 Medications Medication Current Medications IV Flush (NS 3 ml) 3 ml PER PROTOCOL IV ; Start 09/15/18 at 07:30 Ondansetron HCl (Zofran Inj) 4 mg Q6H PRN IV NAUSEA/VOMITING Last administered on 09/19/18 07:53; Admin Dose 4 MG; Start 09/15/18 at 07:30 Acetaminophen (Tylenol Tab) 650 mg Q6H PRN PO .PAIN 1-3 OR TEMP Last administered on 09/16/18 21:56; Admin Dose 650 MG; Start 09/15/18 at 07:30 Baclofen (Lioresal) 10 mg BID PO Last administered on 09/23/18 09:45; Admin Dose 10 MG; Start 09/15/18 at 09:00; Status Hold Buspirone HCl (Buspar) 10 mg BID PO Last administered on 09/23/18 11:44; Admin Dose 10 MG; Start 09/15/18 at 09:00; Status Hold Calcium Carbonate (Oyster Shell Calcium) 1.25 gm BID PO Last administered on 09/23/18 11:44; Admin Dose 1.25 GM; Start 09/15/18 at 09:00; Status Hold Clonazepam (Klonopin) 0.5 mg DAILY PRN PO ANXIETY Last administered on 09/23/18 02:04; Admin Dose 0.5 MG; Start 09/15/18 at 07:30; Status Hold Docusate Sodium (Colace) 100 mg BID PO Last administered on 09/23/18 09:43; Admin Dose 100 MG; Start 09/15/18 at 09:00; Status Hold Rifaximin (Xifaxan) 550 mg BID PO Last administered on 09/22/18 21:42; Admin Dose 550 MG; Start 09/15/18 at 09:00; Status Hold Sertraline HCl (Zoloft) 100 mg DAILY PO ; Start 09/15/18 at 09:00; Status Hold Fluticasone/ Vilanterol (Breo Ellipta 200-25 Mcg Inh) 1 inh DAILY INH Last adm inistered on 09/27/18 08:39; Admin Dose 1 INH; Start 09/15/18 at 09:00 Albuterol/ Ipratropium (Duoneb) 3 ml Q3H RESP THERAPY PRN HHN WHEEZING AND SOB Last administered on 09/21/18 21:08; Admin Dose 3 ML; Start 09/15/18 at 08:00 Levalbuterol (Xopenex Neb) 0.63 mg Q4H RESP THERAPY HHN Last administered on 09/26/18 21:03; Admin Dose 0.63 MG; Start 09/15/18 at 17:00 Levalbuterol (Xopenex Neb) 0.63 mg Q2H RESP THERAPY PRN HHN WHEEZING AND SOB; Start 09/15/18 at 14:00 Collagenase (Santyl) 1 applic DAILY TOP Last administered on 09/27/18 08:39; Admin Dose 1 APPLIC; Start 09/16/18 at 15:00 Acetaminophen/ Hydrocodone Bitart (Spangler (5/325)) 1 tab Q6H PRN PO MODERATE PAIN LEVEL 4-6 Last administered on 09/25/18 23:44; Admin Dose 1 TAB; Start 09/17/18 at 11:30 Methadone HCl (Methadone Liq) 15 mg Q8 PRN PO SEVERE PAIN Last administered on 09/25/18 21:44; Admin Dose 15 MG; Start 09/17/18 at 18:30 Apixaban (Eliquis) 5 mg BID PO Last administered on 09/23/18 09:45; Admin Dose 5 MG; Start 09/19/18 at 21:00; Status Hold Multivitamins Therapeutic (Theragran) 1 tab DAILY PO Last administered on 09/23/18 09:43; Admin Dose 1 TAB; Start 09/19/18 at 12:00 Ascorbic Acid (Vitamin C) 500 mg DAILY PO Last administered on 09/23/18 09:45; Admin Dose 500 MG; Start 09/19/18 at 12:00; Status Hold Zinc Sulfate (Zinc Sulfate) 220 mg DAILY PO Last administered on 09/22/18 08:50; Admin Dose 220 MG; Start 09/19/18 at 12:00; Status Hold Thiamine HCl (Vitamin B1) 50 mg DAILY PO Last administered on 09/23/18 09:45; Admin Dose 50 MG; Start 09/19/18 at 12:00; Status Hold Simethicone (Mylicon) 80 mg Q6H PRN PO DISTENSION/GAS/BLOATING Last administered on 09/22/18 23:50; Admin Dose 80 MG; Start 09/20/18 at 06:30 Diltiazem HCl (Cardizem Cd) 120 mg DAILY PO Last administered on 09/23/18 11:41; Admin Dose 120 MG; Start 09/20/18 at 09:00; Status Hold Zolpidem Tartrate (Ambien) 5 mg HS PRN PO INSOMNIA Last administered on 09/24/18 01:16; Admin Dose 5 MG; Start 09/21/18 at 02:00; Status Hold Phenol (Cepastat Lozenge) 1 lozenge Q1H PRN MT SORE THROAT Last administered on 09/22/18at 03:32; Admin Dose 1 LOZENGE; Start 09/22/18 at 01:00 Levofloxacin (Levaquin) 500 mg DAILY@06 PO Last administered on 09/23/18 07:21; Admin Dose 500 MG; Start 09/23/18 at 06:00; Status Hold Metronidazole 100 ml @ 100 mls/hr Q8 IVPB Last administered on 09/23/18 22:03; Admin Dose 100 MLS/HR; Start 09/23/18 at 14:00; Status Hold Prednisone (Prednisone) 40 mg DAILY PO ; Start 09/24/18 at 09:00; Stop 09/28/18 at 09:00 Insulin Aspart (Novolog Insulin Pen) NOVOLOG *MILD* ALGORI... Q4 SC ; Start 09/24/18 at 01:00 Meropenem/Sodium Chloride 50 ml @ 100 mls/hr Q8H IVPB Last administered on 08/31 10:45; Admin Dose 100 MLS/HR; Start 09/24/18 at 02:30 Hydromorphone HCl (Dilaudid) 0.5 mg Q4H PRN IV SEVERE PAIN LEVEL 7-10 Last administered on 09/27/18 04:23; Admin Dose 0.5 MG; Start 09/24/18 at 03:00 Lorazepam (Ativan) 0.5 mg Q6H PRN IV ANXIETY Last administered on 09/27/18 08:46; Admin Dose 0.5 MG; Start 09/24/18 at 03:00 Pantoprazole (Protonix Iv) 40 mg BID@06,18 IV Last administered on 09/27/18 06:41; Admin Dose 40 MG; Start 09/24/18 at 18:00 Miscellaneous Information 1 ea NOTE XX ; Start 09/25/18 at 22:00 Glucose (Glutose) 15 gm Q15M PRN PO DECREASED GLUCOSE; Start 09/25/18 at 22:00 Glucose (Glutose) 22.5 gm Q15M PRN PO DECREASED GLUCOSE; Start 09/25/18 at 22:00 Dextrose (D50w Syringe) 25 ml Q15M PRN IV DECREASED GLUCOSE Last administered on 09/26/18at 21:39; Admin Dose 25 ML; Start 09/25/18 at 22:00 Dextrose (D50w Syringe) 50 ml Q15M PRN IV DECREASED GLUCOSE; Start 09/25/18 at 22:00 Glucagon (Glucagen) 1 mg Q15M PRN IM DECREASED GLUCOSE; Start 09/25/18 at 22:00 Glucose (Glutose) 15 gm Q15M PRN BUCCAL DECREASED GLUCOSE; Start 09/25/18 at 22:00 Mupirocin (Bactroban) 1 applic BID TOP Last administered on 09/27/18at 08:38; Admin Dose 1 APPLIC; Start 09/26/18 at 21:00; Stop 10/06/18 at 09:01 RALF RAMOS MD Sep 27, 2018 13:43
[2018-09-27] MEDS: D5-NS + KCL 20 MEQ 1,000 ML IV SCH (14:48)
[2018-09-28] VITALS (7 sets, daily range): BP systolic 83–140; BP diastolic 48–65; PULSE 106–122; RESP 14–18
[2018-09-28] MEDS: INSULIN ASPART [NOVOLOG] 3 ML PEN SC SCH ×6 (01:00→20:45)
[2018-09-28] MEDS: LEVALBUTEROL (NEB) 0.63 MG/3 ML AMP HHN SCH ×6 (01:00→21:00)
[2018-09-28] MEDS: LORAZEPAM 2 MG INJ IV PRN (02:13)
[2018-09-28] MEDS: MEROPENEM 1 GM/50ML(PMX) 50 ML IVPB SCH ×3 (02:49→17:35)
[2018-09-28] MEDS: D5-NS + KCL 20 MEQ 1,000 ML IV SCH ×3 (03:20→21:44)
[2018-09-28] MEDS: HYDROmorphONE 0.5 MG/0.5 ML SYG IV PRN ×3 (03:42→19:40)
[2018-09-28] MEDS: PANTOPRAZOLE 40 MG INJ IV SCH ×2 (05:51→17:22)
[2018-09-28] MEDS: predniSONE 20 MG TAB PO SCH (07:37)
[2018-09-28] MEDS: MULTIVITAMINS THERAPEUTIC TAB PO SCH (07:37)
--- NOTE | 2018-09-28 08:46 | CONS ---
Assessment/Plan Assessment/Plan Assessment/Plan (Daily) Brief initial note, reviewed chart examined patient. Her major complaint at this time is total body pain which may be because of prior use of methadone and now unable to tolerate p.o.. In the interim while she has an NG tube placed we will switch to methadone sublingual Full pain management note to follow Consultation Date/Type/Reason Admit Date/Time Sep 15, 2018 at 03:32 Date/Time of Note DATE: 09/28/18 TIME: 08:44 Past Medical History Home Meds Active Scripts Pantoprazole* (Pantoprazole*) 40 Mg Tablet.dr, 40 MG PO DAILY@06 for 14 Days, #14 Prov:RICKIE DALTON MD 06/12/18 Apixaban* (Eliquis*) 5 Mg Tablet, 10 MG PO BID for 30 Days, #60 TAB 10 mg twice daily for 5 days, then 5 mg twice daily Prov:RICKIE DALTON MD 06/12/18 Methadone Hcl* (Methadone*) 5 Mg/5 Ml Solution, 68 MG PO DAILY for 30 Days, ML Prov:STU ORTEZ 04/14/18 Salmeterol Xinaf/Fluticasone* (Advair*) 250-50 Diskus Inhaler, 1 INH INHALATION BID for 30 Days, #1 INHALER Prov:ZHANG WARE NP 02/28/16 Albuterol Sulfate* (Proair HFA*) 8.5 Gm Hfa.aer.ad, 2 PUFF INH Q6 for SHORTNESS OF BREATH for 14 Days, #1 INHALER Prov:ZHANG WARE NP 02/28/16 Reported Medications Sertraline Hcl* (Sertraline Hcl*) 25 Mg Tablet, 25 MG PO DAILY, #30 TAB 09/15/18 Buspirone Hcl* (Buspirone Hcl*) 10 Mg Tab, 10 MG PO BID, TAB 09/15/18 Clonazepam* (Clonazepam*) 0.5 Mg Tablet, 0.5 MG PO DAILY PRN for ANXIETY, TAB 09/15/18 Ipratropium-Albuterol (Ipratropium-Albuterol) 0.5-3 Mg/3 Ml Ampul.neb, 3 ML INHALATION Q6 PRN for WHEEZING AND SOB, #30 VIAL 09/15/18 Carvedilol* (Carvedilol*) 6.25 Mg Tablet, 6.25 MG PO BID, #60 TAB 09/15/18 Cholecalciferol (Vitamin D3) (VITAMIN D-3) 2,000 Unit Capsule, 2000 U PO DAILY for 30 Days 04/30/18 Amlodipine Besylate* (Amlodipine Besylate*) 5 Mg Tablet, 5 MG PO DAILY for 30 Days, #30 04/30/18 Baclofen* (Baclofen*) 10 Mg Tablet, 10 MG PO BID 04/30/18 Calcium Carbonate ([id number]) 500 Mg Tablet, 500 MG PO BID, TAB 04/30/18 Medications Current Medications IV Flush (NS 3 ml) 3 ml PER PROTOCOL IV ; Start 09/15/18 at 07:30 Ondansetron HCl (Zofran Inj) 4 mg Q6H PRN IV NAUSEA/VOMITING Last administered on 09/19/18 07:53; Admin Dose 4 MG; Start 09/15/18 at 07:30 Acetaminophen (Tylenol Tab) 650 mg Q6H PRN PO .PAIN 1-3 OR TEMP Last administered on 09/16/18 21:56; Admin Dose 650 MG; Start 09/15/18 at 07:30 Baclofen (Lioresal) 10 mg BID PO Last administered on 09/23/18 09:45; Admin Dose 10 MG; Start 09/15/18 at 09:00; Status Hold Buspirone HCl (Buspar) 10 mg BID PO Last administered on 09/23/18 11:44; Admin Dose 10 MG; Start 09/15/18 at 09:00; Status Hold Calcium Carbonate (Oyster Shell Calcium) 1.25 gm BID PO Last administered on 09/23/18 11:44; Admin Dose 1.25 GM; Start 09/15/18 at 09:00; Status Hold Clonazepam (Klonopin) 0.5 mg DAILY PRN PO ANXIETY Last administered on 09/23/18 02:04; Admin Dose 0.5 MG; Start 09/15/18 at 07:30; Status Hold Docusate Sodium (Colace) 100 mg BID PO Last administered on 09/23/18 09:43; Admin Dose 100 MG; Start 09/15/18 at 09:00; Status Hold Rifaximin (Xifaxan) 550 mg BID PO Last administered on 09/22/18 21:42; Admin Dose 550 MG; Start 09/15/18 at 09:00; Status Hold Sertraline HCl (Zoloft) 100 mg DAILY PO ; Start 09/15/18 at 09:00; Status Hold Fluticasone/ Vilanterol (Breo Ellipta 200-25 Mcg Inh) 1 inh DAILY INH Last administered on 09/27/18 08:39; Admin Dose 1 INH; Start 09/15/18 at 09:00 Albuterol/ Ipratropium (Duoneb) 3 ml Q3H RESP THERAPY PRN HHN WHEEZING AND SOB Last administered on 09/21/18 21:08; Admin Dose 3 ML; Start 09/15/18 at 08:00 Levalbuterol (Xopenex Neb) 0.63 mg Q4H RESP THERAPY HHN Last administered on 09/28/18 08:29; Admin Dose 0.63 MG; Start 09/15/18 at 17:00 Levalbuterol (Xopenex Neb) 0.63 mg Q2H RESP THERAPY PRN HHN WHEEZING AND SOB; Start 09/15/18 at 14:00 Collagenase (Santyl) 1 applic DAILY TOP Last administered on 09/27/18 08:39; Admin Dose 1 APPLIC; Start 09/16/18 at 15:00 Acetaminophen/ Hydrocodone Bitart ([place] (5/325)) 1 tab Q6H PRN PO MODERATE PAIN LEVEL 4-6 Last administered on 09/25/18 23:44; Admin Dose 1 TAB; Start 09/17/18 at 11:30 Methadone HCl (Methadone Liq) 15 mg Q8 PRN PO SEVERE PAIN Last administered on 09/25/18 21:44; Admin Dose 15 MG; Start 09/17/18 at 18:30 Apixaban (Eliquis) 5 mg BID PO Last administered on 09/23/18 09:45; Admin Dose 5 MG; Start 09/19/18 at 21:00; Status Hold Multivitamins Therapeutic (Theragran) 1 tab DAILY PO Last administered on 09/23/18 09:43; Admin Dose 1 TAB; Start 09/19/18 at 12:00 Ascorbic Acid (Vitamin C) 500 mg DAILY PO Last administered on 09/23/18 09:45; Admin Dose 500 MG; Start 09/19/18 at 12:00; Status Hold Zinc Sulfate (Zinc Sulfate) 220 mg DAILY PO Last administered on 09/22/18 08:50; Admin Dose 220 MG; Start 09/19/18 at 12:00; Status Hold Thiamine HCl (Vitamin B1) 50 mg DAILY PO Last administered on 09/23/18 09:45; Admin Dose 50 MG; Start 09/19/18 at 12:00; Status Hold Simethicone (Mylicon) 80 mg Q6H PRN PO DISTENSION/GAS/BLOATING Last administered on 09/22/18 23:50; Admin Dose 80 MG; Start 09/20/18 at 06:30 Diltiazem HCl (Cardizem Cd) 120 mg DAILY PO Last administered on 09/23/18 11:41; Admin Dose 120 MG; Start 09/20/18 at 09:00; Status Hold Zolpidem Tartrate (Ambien) 5 mg HS PRN PO INSOMNIA Last administered on 09/24/18 01:16; Admin Dose 5 MG; Start 09/21/18 at 02:00; Status Hold Phenol (Cepastat Lozenge) 1 lozenge Q1H PRN MT SORE THROAT Last administered on 09/22/18 03:32; Admin Dose 1 LOZENGE; Start 09/22/18 at 01:00 Levofloxacin (Levaquin) 500 mg DAILY@06 PO Last administered on 09/23/18 07:21; Admin Dose 500 MG; Start 09/23/18 at 06:00; Status Hold Metronidazole 100 ml @ 100 mls/hr Q8 IVPB Last administered on 09/23/18at 22:03; Admin Dose 100 MLS/HR; Start 09/23/18 at 14:00; Status Hold Prednisone (Prednisone) 40 mg DAILY PO ; Start 09/24/18 at 09:00; Stop 09/28/18 at 09:00 Insulin Aspart (Novolog Insulin Pen) NOVOLOG *MILD* ALGORI... Q4 SC ; Start 09/24/18 at 01:00 Meropenem/Sodium Chloride 50 ml @ 100 mls/hr Q8H IVPB Last administered on 09/28/18 02:49; Admin Dose 100 MLS/HR; Start 09/24/18 at 02:30 Hydromorphone HCl (Dilaudid) 0.5 mg Q4H PRN IV SEVERE PAIN LEVEL 7-10 Last administered on 09/28/18at 03:42; Admin Dose 0.5 MG; Start 09/24/18 at 03:00 Lorazepam (Ativan) 0.5 mg Q6H PRN IV ANXIETY Last administered on 09/28/18at 02:13; Admin Dose 0.5 MG; Start 09/24/18 at 03:00 Pantoprazole (Protonix Iv) 40 mg BID@06,18 IV Last administered on 09/28/18at 05:51; Admin Dose 40 MG; Start 09/24/18 at 18:00 Miscellaneous Information 1 ea NOTE XX ; Start 09/25/18 at 22:00 Glucose (Glutose) 15 gm Q15M PRN PO DECREASED GLUCOSE; Start 09/25/18 at 22:00 Glucose (Glutose) 22.5 gm Q15M PRN PO DECREASED GLUCOSE; Start 09/25/18 at 22:00 Dextrose (D50w Syringe) 25 ml Q15M PRN IV DECREASED GLUCOSE Last administered on 09/26/18at 21:39; Admin Dose 25 ML; Start 09/25/18 at 22:00 Dextrose (D50w Syringe) 50 ml Q15M PRN IV DECREASED GLUCOSE; Start 09/25/18 at 22:00 Glucagon (Glucagen) 1 mg Q15M PRN IM DECREASED GLUCOSE; Start 09/25/18 at 22:00 Glucose (Glutose) 15 gm Q15M PRN BUCCAL DECREASED GLUCOSE; Start 09/25/18 at 22:00 Mupirocin (Bactroban) 1 applic BID TOP Last administered on 09/27/18at 20:16; Admin Dose 1 APPLIC; Start 09/26/18 at 21:00; Stop 10/06/18 at 09:01 Multivitamins 10 ml/Potassium Chloride 20 meq/ Dextrose/Sodium Chloride 1,020 ml @ 75 mls/hr BY DURATION IV Last administered on 09/28/18at 05:45; Admin Dose 75 MLS/HR; Start 09/28/18 at 04:00; Stop 09/28/18 at 12:00 Potassium Chloride/Dextrose/ Sod Cl 1,000 ml @ 75 mls/hr BY DURATION IV Last administered on 09/28/18at 05:45; Admin Dose 75 MLS/HR; Start 09/28/18 at 04:00; Stop 09/28/18 at 12:00 Potassium Chloride 20 meq/ Multivitamins 10 ml/Dextrose/ Sodium Chloride 1,020 ml @ 75 mls/hr Q24H IV ; Start 09/29/18 at 04:00 Potassium Chloride/Dextrose/ Sod Cl 1,000 ml @ 75 mls/hr [id number] IV ; Start 09/28/18 at 06:30 Allergies: Coded Allergies: Sulfa (Sulfonamide Antibiotics) (Verified Allergy, Mild, 09/17/18) chlorpromazine HCl (Verified Allergy, Unknown, 09/17/18) lorazepam (Verified Allergy, Unknown, 09/17/18) Uncoded Allergies: tape (Allergy, Mild, rash, 02/28/16) Past Surgical History Past Surgical Hx: no surgical history, other Social History Alcohol Use: none Smoking Status: Former smoker Drug Use: none Exam/Review of Systems Exam Vitals Vital Signs Date Temp Pulse Resp B/P (MAP) Pulse Ox O2 O2 Flow FiO2 Time Delivery Rate 09/28/18 97.7 106 14 105/53 99 07:10 (70) 09/28/18 Nasal 2.0 04:00 Cannula Intake and Output 09/27/18 09/27/18 09/28/18 1515:00 23:00 07:00 IntakeIntake Total 160 ml 1075 ml BalanceBalance 160 ml 1075 ml Results Result Diagram: 09/27/18 0643 09/27/18 0643 Results 24hrs Laboratory Tests Test 09/27/18 12:52 09/27/18 17:49 09/27/18 20:15 09/28/18 01:01 Bedside Glucose 120 99 90 97 Test 09/28/18 05:50 Bedside Glucose 95 Medications Medication Current Medications IV Flush (NS 3 ml) 3 ml PER PROTOCOL IV ; Start 09/15/18 at 07:30 Ondansetron HCl (Zofran Inj) 4 mg Q6H PRN IV NAUSEA/VOMITING Last administered on 09/19/18at 07:53; Admin Dose 4 MG; Start 09/15/18 at 07:30 Acetaminophen (Tylenol Tab) 650 mg Q6H PRN PO .PAIN 1-3 OR TEMP Last administered on 09/16/18at 21:56; Admin Dose 650 MG; Start 09/15/18 at 07:30 Baclofen (Lioresal) 10 mg BID PO Last administered on 09/23/18 09:45; Admin Dose 10 MG; Start 09/15/18 at 09:00; Status Hold Buspirone HCl (Buspar) 10 mg BID PO Last administered on 09/23/18 11:44; Admin Dose 10 MG; Start 09/15/18 at 09:00; Status Hold Calcium Carbonate (Oyster Shell Calcium) 1.25 gm BID PO Last administered on 09/23/18 11:44; Admin Dose 1.25 GM; Start 09/15/18 at 09:00; Status Hold Clonazepam (Klonopin) 0.5 mg DAILY PRN PO ANXIETY Last administered on 09/23/18 02:04; Admin Dose 0.5 MG; Start 09/15/18 at 07:30; Status Hold Docusate Sodium (Colace) 100 mg BID PO Last administered on 09/23/18 09:43; Admin Dose 100 MG; Start 09/15/18 at 09:00; Status Hold Rifaximin (Xifaxan) 550 mg BID PO Last administered on 09/22/18 21:42; Admin Dose 550 MG; Start 09/15/18 at 09:00; Status Hold Sertraline HCl (Zoloft) 100 mg DAILY PO ; Start 09/15/18 at 09:00; Status Hold Fluticasone/ Vilanterol (Breo Ellipta 200-25 Mcg Inh) 1 inh DAILY INH Last administered on 09/27/18 08:39; Admin Dose 1 INH; Start 09/15/18 at 09:00 Albuterol/ Ipratropium (Duoneb) 3 ml Q3H RESP THERAPY PRN HHN WHEEZING AND SOB Last administered on 09/21/18 21:08; Admin Dose 3 ML; Start 09/15/18 at 08:00 Levalbuterol (Xopenex Neb) 0.63 mg Q4H RESP THERAPY HHN Last administered on 09/28/18 08:29; Admin Dose 0.63 MG; Start 09/15/18 at 17:00 Levalbuterol (Xopenex Neb) 0.63 mg Q2H RESP THERAPY PRN HHN WHEEZING AND SOB; Start 09/15/18 at 14:00 Collagenase (Santyl) 1 applic DAILY TOP Last administered on 09/27/18 08:39; Admin Dose 1 APPLIC; Start 09/16/18 at 15:00 Acetaminophen/ Hydrocodone Bitart ([place] (5/325)) 1 tab Q6H PRN PO MODERATE PAIN LEVEL 4-6 Last administered on 09/25/18 23:44; Admin Dose 1 TAB; Start 09/17/18 at 11:30 Methadone HCl (Methadone Liq) 15 mg Q8 PRN PO SEVERE PAIN Last administered on 09/25/18 21:44; Admin Dose 15 MG; Start 09/17/18 at 18:30 Apixaban (Eliquis) 5 mg BID PO Last administered on 09/23/18 09:45; Admin Dose 5 MG; Start 09/19/18 at 21:00; Status Hold Multivitamins Therapeutic (Theragran) 1 tab DAILY PO Last administered on 09/23/18 09:43; Admin Dose 1 TAB; Start 09/19/18 at 12:00 Ascorbic Acid (Vitamin C) 500 mg DAILY PO Last administered on 09/23/18 09:45; Admin Dose 500 MG; Start 09/19/18 at 12:00; Status Hold Zinc Sulfate (Zinc Sulfate) 220 mg DAILY PO Last administered on 09/22/18 08:50; Admin Dose 220 MG; Start 09/19/18 at 12:00; Status Hold Thiamine HCl (Vitamin B1) 50 mg DAILY PO Last administered on 09/23/18 09:45; Admin Dose 50 MG; Start 09/19/18 at 12:00; Status Hold Simethicone (Mylicon) 80 mg Q6H PRN PO DISTENSION/GAS/BLOATING Last administered on 09/22/18 23:50; Admin Dose 80 MG; Start 09/20/18 at 06:30 Diltiazem HCl (Cardizem Cd) 120 mg DAILY PO Last administered on 09/23/18 11:41; Admin Dose 120 MG; Start 09/20/18 at 09:00; Status Hold Zolpidem Tartrate (Ambien) 5 mg HS PRN PO INSOMNIA Last administered on 09/24/18 01:16; Admin Dose 5 MG; Start 09/21/18 at 02:00; Status Hold Phenol (Cepastat Lozenge) 1 lozenge Q1H PRN MT SORE THROAT Last administered on 09/22/18 03:32; Admin Dose 1 LOZENGE; Start 09/22/18 at 01:00 Levofloxacin (Levaquin) 500 mg DAILY@06 PO Last administered on 09/23/18at 07:21; Admin Dose 500 MG; Start 09/23/18 at 06:00; Status Hold Metronidazole 100 ml @ 100 mls/hr Q8 IVPB Last administered on 09/23/18at 22: 03; Admin Dose 100 MLS/HR; Start 09/23/18 at 14:00; Status Hold Prednisone (Prednisone) 40 mg DAILY PO ; Start 09/24/18 at 09:00; Stop 09/28/18 at 09:00 Insulin Aspart (Novolog Insulin Pen) NOVOLOG *MILD* ALGORI... Q4 SC ; Start 09/24/18 at 01:00 Meropenem/Sodium Chloride 50 ml @ 100 mls/hr Q8H IVPB Last administered on 09/28/18at 02:49; Admin Dose 100 MLS/HR; Start 09/24/18 at 02:30 Hydromorphone HCl (Dilaudid) 0.5 mg Q4H PRN IV SEVERE PAIN LEVEL 7-10 Last administered on 09/28/18 03:42; Admin Dose 0.5 MG; Start 09/24/18 at 03:00 Lorazepam (Ativan) 0.5 mg Q6H PRN IV ANXIETY Last administered on 09/28/18 02:13; Admin Dose 0.5 MG; Start 09/24/18 at 03:00 Pantoprazole (Protonix Iv) 40 mg BID@06,18 IV Last administered on 09/28/18at 05:51; Admin Dose 40 MG; Start 09/24/18 at 18:00 Miscellaneous Information 1 ea NOTE XX ; Start 09/25/18 at 22:00 Glucose (Glutose) 15 gm Q15M PRN PO DECREASED GLUCOSE; Start 09/25/18 at 22:00 Glucose (Glutose) 22.5 gm Q15M PRN PO DECREASED GLUCOSE; Start 09/25/18 at 22:00 Dextrose (D50w Syringe) 25 ml Q15M PRN IV DECREASED GLUCOSE Last administered on 09/26/18at 21:39; Admin Dose 25 ML; Start 09/25/18 at 22:00 Dextrose (D50w Syringe) 50 ml Q15M PRN IV DECREASED GLUCOSE; Start 09/25/18 at 22:00 Glucagon (Glucagen) 1 mg Q15M PRN IM DECREASED GLUCOSE; Start 09/25/18 at 22:00 Glucose (Glutose) 15 gm Q15M PRN BUCCAL DECREASED GLUCOSE; Start 09/25/18 at 22:00 Mupirocin (Bactroban) 1 applic BID TOP Last administered on 09/27/18at 20:16; Admin Dose 1 APPLIC; Start 09/26/18 at 21:00; Stop 10/06/18 at 09:01 Multivitamins 10 ml/Potassium Chloride 20 meq/ Dextrose/Sodium Chloride 1,020 ml @ 75 mls/hr BY DURATION IV Last administered on 09/28/18at 05:45; Admin Dose 75 MLS/HR; Start 09/28/18 at 04:00; Stop 09/28/18 at 12:00 Potassium Chloride/Dextrose/ Sod Cl 1,000 ml @ 75 mls/hr BY DURATION IV Last administered on 09/28/18at 05:45; Admin Dose 75 MLS/HR; Start 09/28/18 at 04:00; Stop 09/28/18 at 12:00 Potassium Chloride 20 meq/ Multivitamins 10 ml/Dextrose/ Sodium Chloride 1,020 ml @ 75 mls/hr Q24H IV ; Start 09/29/18 at 04:00 Potassium Chloride/Dextrose/ Sod Cl 1,000 ml @ 75 mls/hr [id number] IV ; Start 09/28/18 at 06:30 RUFINA LINK Sep 28, 2018 08:45
[2018-09-28] MEDS: FLUTICASONE/VILANTEROL 200-25 INH DEVICE INH SCH (09:00)
[2018-09-28] MEDS: COLLAGENASE 5 GM (UD JAR) TOP SCH (09:24)
[2018-09-28] MEDS: METHADONE (1 MG/ML 5 ML PO UD SYG) SL SCH ×4 (09:30→20:32)
[2018-09-28] MEDS: MUPIROCIN 2% 22 GM OINT TOP SCH ×2 (09:37→20:44)
[2018-09-28] MEDS: BALSAM PERU/CASTOR OIL 60 GM TUBE TOP SCH ×2 (09:37→20:44)
[2018-09-28] MEDS ORDERED: [UNRECOGNIZED DRUG - OTHER] IV SCH (10:00)
[2018-09-28] MEDS ORDERED: MULTIVITAMINS IV SCH (10:00)
[2018-09-28] MEDS ORDERED: KCL IV SCH (10:00)
[2018-09-28] MEDS ORDERED: D5 NS IV SCH (10:00)
--- NOTE | 2018-09-28 12:13 | CONS ---
Consult Date/Type/Reason Admit Date/Time Sep 15, 2018 at 03:32 Initial Consult Date 09/15/18 Type of Consult Pulmonary Requesting Provider: LEOBARDO DC Date/Time of Note DATE: 09/28/18 TIME: 12:10 Subjective No changes. Continues TPN. Objective Vital Signs Date Temp Pulse Resp B/P (MAP) Pulse Ox O2 O2 Flow FiO2 Time Delivery Rate 09/28/18 98.6 114 16 83/51 (62) 96 11:34 09/28/18 Nasal 2.0 09:53 Cannula Intake and Output 09/27/18 09/27/18 09/28/18 1515:00 23:00 07:00 IntakeIntake Total 160 ml 1075 ml BalanceBalance 160 ml 1075 ml Exam GENERAL: VITAL SIGNS: per chart NECK: Supple. No JVD or lymphadenopathy. CARDIAC EXAM: S1, S2. No added sounds or murmurs. CHEST: Diminished air entry bilaterally ABDOMEN: Diminished bowel sounds EXTREMITIES: No cyanosis, clubbing or edema. NEUROLOGIC: Generalized weakness. No focal deficits. Thin elderly lady appears comfortable at rest Vent Setting Fraction of Inspired Oxygen pe: 21 Results/Medications Result Diagram: 09/27/18 0643 09/27/18 0643 Results 24 hrs Laboratory Tests Test 09/27/18 12:52 09/27/18 17:49 09/27/18 20:15 09/28/18 01:01 Bedside Glucose 120 99 90 97 Test 09/28/18 05:50 09/28/18 09:46 Bedside Glucose 95 134 Medications Current Medications IV Flush (NS 3 ml) 3 ml PER PROTOCOL IV ; Start 09/15/18 at 07:30 Ondansetron HCl (Zofran Inj) 4 mg Q6H PRN IV NAUSEA/VOMITING Last administered on 09/19/18at 07:53; Admin Dose 4 MG; Start 09/15/18 at 07:30 Acetaminophen (Tylenol Tab) 650 mg Q6H PRN PO .PAIN 1-3 OR TEMP Last administered on 09/16/18at 21:56; Admin Dose 650 MG; Start 09/15/18 at 07:30 Baclofen (Lioresal) 10 mg BID PO Last administered on 09/23/18at 09:45; Admin Dose 10 MG; Start 09/15/18 at 09:00; Status Hold Buspirone HCl (Buspar) 10 mg BID PO Last administered on 09/23/18 11:44; Admin Dose 10 MG; Start 09/15/18 at 09:00; Status Hold Calcium Carbonate (Oyster Shell Calcium) 1.25 gm BID PO Last administered on 09/23/18 11:44; Admin Dose 1.25 GM; Start 09/15/18 at 09:00; Status Hold Clonazepam (Klonopin) 0.5 mg DAILY PRN PO ANXIETY Last administered on 09/23/18 02:04; Admin Dose 0.5 MG; Start 09/15/18 at 07:30; Status Hold Docusate Sodium (Colace) 100 mg BID PO Last administered on 09/23/18 09:43; Admin Dose 100 MG; Start 09/15/18 at 09:00; Status Hold Rifaximin (Xifaxan) 550 mg BID PO Last administered on 09/22/18 21:42; Admin Dose 550 MG; Start 09/15/18 at 09:00; Status Hold Sertraline HCl (Zoloft) 100 mg DAILY PO ; Start 09/15/18 at 09:00; Status Hold Fluticasone/ Vilanterol (Breo Ellipta 200-25 Mcg Inh) 1 inh DAILY INH Last administered on 09/27/18 08:39; Admin Dose 1 INH; Start 09/15/18 at 09:00 Albuterol/ Ipratropium (Duoneb) 3 ml Q3H RESP THERAPY PRN HHN WHEEZING AND SOB Last administered on 09/21/18 21:08; Admin Dose 3 ML; Start 09/15/18 at 08:00 Levalbuterol (Xopenex Neb) 0.63 mg Q4H RESP THERAPY HHN Last administered on 09/28/18 08:29; Admin Dose 0.63 MG; Start 09/15/18 at 17:00 Levalbuterol (Xopenex Neb) 0.63 mg Q2H RESP THERAPY PRN HHN WHEEZING AND SOB; Start 09/15/18 at 14:00 Collagenase (Santyl) 1 applic DAILY TOP Last administered on 09/28/18 09:24; Admin Dose 1 APPLIC; Start 09/16/18 at 15:00 Apixaban (Eliquis) 5 mg BID PO Last administered on 09/23/18 09:45; Admin Dose 5 MG; Start 09/19/18 at 21:00; Status Hold Multivitamins Therapeutic (Theragran) 1 tab DAILY PO Last administered on 09/23/18 09:43; Admin Dose 1 TAB; Start 09/19/18 at 12:00 Ascorbic Acid (Vitamin C) 500 mg DAILY PO Last administered on 09/23/18 09:45; Admin Dose 500 MG; Start 09/19/18 at 12:00; Status Hold Zinc Sulfate (Zinc Sulfate) 220 mg DAILY PO Last administered on 09/22/18 08:50; Admin Dose 220 MG; Start 09/19/18 at 12:00; Status Hold Thiamine HCl (Vitamin B1) 50 mg DAILY PO Last administered on 09/23/18 09:45; Admin Dose 50 MG; Start 09/19/18 at 12:00; Status Hold Simethicone (Mylicon) 80 mg Q6H PRN PO DISTENSION/GAS/BLOATING Last administered on 09/22/18 23:50; Admin Dose 80 MG; Start 09/20/18 at 06:30 Diltiazem HCl (Cardizem Cd) 120 mg DAILY PO Last administered on 09/23/18 11:41; Admin Dose 120 MG; Start 09/20/18 at 09:00; Status Hold Zolpidem Tartrate (Ambien) 5 mg HS PRN PO INSOMNIA Last administered on 9at 01:16; Admin Dose 5 MG; Start 09/21/18 at 02:00; Status Hold Phenol (Cepastat Lozenge) 1 lozenge Q1H PRN MT SORE THROAT Last administered on 09/22/18 03:32; Admin Dose 1 LOZENGE; Start 09/22/18 at 01:00 Levofloxacin (Levaquin) 500 mg DAILY@06 PO Last administered on 09/23/18 07:21; Admin Dose 500 MG; Start 09/23/18 at 06:00; Status Hold Metronidazole 100 ml @ 100 mls/hr Q8 IVPB Last administered on 09/23/18 22:03; Admin Dose 100 MLS/HR; Start 09/23/18 at 14:00; Status Hold Insulin Aspart (Novolog Insulin Pen) NOVOLOG *MILD* ALGORI... Q4 SC ; Start 09/24/18 at 01:00 Meropenem/Sodium Chloride 50 ml @ 100 mls/hr Q8H IVPB Last administered on 09/28/18at 10:45; Admin Dose 100 MLS/HR; Start 09/24/18 at 02:30 Hydromorphone HCl (Dilaudid) 0.5 mg Q4H PRN IV SEVERE PAIN LEVEL 7-10 Last administered on 09/28/18at 10:45; Admin Dose 0.5 MG; Start 09/24/18 at 03:00 Lorazepam (Ativan) 0.5 mg Q6H PRN IV ANXIETY Last administered on 09/28/18at 02:13; Admin Dose 0.5 MG; Start 09/24/18 at 03:00 Pantoprazole (Protonix Iv) 40 mg BID@06,18 IV Last administered on 09/28/18at 05:51; Admin Dose 40 MG; Start 09/24/18 at 18:00 Miscellaneous Information 1 ea NOTE XX ; Start 09/25/18 at 22:00 Glucose (Glutose) 15 gm Q15M PRN PO DECREASED GLUCOSE; Start 09/25/18 at 22:00 Glucose (Glutose) 22.5 gm Q15M PRN PO DECREASED GLUCOSE; Start 09/25/18 at 22:00 Dextrose (D50w Syringe) 25 ml Q15M PRN IV DECREASED GLUCOSE Last administered on 09/26/18at 21:39; Admin Dose 25 ML; Start 09/25/18 at 22:00 Dextrose (D50w Syringe) 50 ml Q15M PRN IV DECREASED GLUCOSE; Start 09/25/18 at 22:00 Glucagon (Glucagen) 1 mg Q15M PRN IM DECREASED GLUCOSE; Start 09/25/18 at 22:00 Glucose (Glutose) 15 gm Q15M PRN BUCCAL DECREASED GLUCOSE; Start 09/25/18 at 22:00 Mupirocin (Bactroban) 1 applic BID TOP Last administered on 09/28/18at 09:37; Admin Dose 1 APPLIC; Start 09/26/18 at 21:00; Stop 10/06/18 at 09:01 Potassium Chloride 20 meq/ Multivitamins 10 ml/Dextrose/ Sodium Chloride 1,020 ml @ 75 mls/hr Q24H IV ; Start 09/29/18 at 04:00 Potassium Chloride/Dextrose/ Sod Cl 1,000 ml @ 75 mls/hr [id number] IV ; Start 09/28/18 at 06:30 Methadone HCl (Methadone Liq) 2 mg Q4 SL ; Start 09/28/18 at 09:30 Assessment/Plan Hospital Course (Demo Recall) IMP: 1. Possible perforated PUD--refusing intervention 2. Chronic obstructive pulmonary disease with acute exacerbation. 3. Type 2 NSTEMI 4. s/p Dehydration and renal insufficiency. 5. History of venous thromboembolism--anticoagulation on hold RECS: 1. Continue to hold ATC; follow H/H 2. Taper off CS 3. BDs 4. Aspiration precautions Transfer to [facility] when stable. EMMA STEINBERG MD, [facility] Sep 28, 2018 12:13
--- NOTE | 2018-09-28 12:43 | PN ---
DATE: 09/28/2018 SUBJECTIVE: The patient is stable. No events overnight. The patient remains n.p.o. Currently FULL CODE. OBJECTIVE: VITAL SIGNS: Blood pressure is 105/53, pulse 106, respirations 14, temperature 97.7. HEENT: Head is normocephalic. NECK: Supple. HEART: Regular rate. LUNGS: Show diminished breath sounds at the base. ABDOMEN: Soft, nontender to palpation without rebound or guarding. EXTREMITIES: Negative for clubbing, cyanosis, no edema. DERMATOLOGIC: No rashes. MUSCULOSKELETAL: No joint effusion. NEUROLOGIC: No change in exam. MEDICATIONS: The patient's medications have been reviewed. LABORATORY DATA: Laboratory data has been reviewed. IMAGING STUDIES: Imaging studies have been reviewed. ASSESSMENT AND PLAN: 1. Nonoliguric acute kidney injury. Etiology is secondary to hemodynamics. Renal function is impro tay. Continue to monitor closely. 2. Hypokalemia, etiology is secondary to total body deficit. Continue replacement with current IV f luids. Continue to monitor and replete with potassium chloride as needed. 3. Anemia. Monitor hemoglobin and hematocrit levels. 4. Mineral bone disorder. Monitor calcium and phosphorus levels. 5. Non-ST elevation myocardial infarction. Continue medical management. 6. Perforated viscus. The patient is refusing surgery. Continue supportive care. The patient giovany ins n.p.o. 7. Nutrition. Consider TPN. 8. Hyponatremia, etiology is likely multifactorial secondary to hypokalemia. Continue to monitor af ter potassium levels have been repleted. 9. Sepsis secondary to pneumonia. Continue current antibiotic regimen. 10. Leukocytosis. Continue to monitor. 11. History of hepatitis C. Dictated By: RICHARD ORTIZ DO NR/NTS Conf#: [id number] DID#: [id number] CC: DENZEL HOFFMANN MD; GERALDO VARGAS MD; PEDRITO MUHAMMAD MD;*End*
--- NOTE | 2018-09-28 13:43 | PN ---
Date/Time of Note Date/Time of Note DATE: 09/28/18 TIME: 13:38 Assessment/Plan VTE Prophylaxis Risk score (from Ns)>0 risk: 4 SCD applied (from [facility] [place]): Yes Pharmacological prophylaxis: other Pharm contraindication: other Lines/Catheters IV Catheter Type (from [facility]): Mid Line Urinary Cath still in place: No Assessment/Plan Assessment/Plan 1. Perforated viscous with possible small bowel obstruction with possible bowel inflammation, declines surgery, NPO/IVF, supportive care and antibiotics, follow up with surgery. 2. Respiratory failure due to COPD exacerbation, improving, neb prn 3. Mildly elevated troponin, prob hypoxia related 4. Acute kidney injury, improved 5. Normocytic anemia, chronic, follow up with H/H 6. Hypokalemia, KCL, follow up with K 7. History of hepatitis C 8. Chronic methadone use: 9. MRSA of the nares, on Bactroban 10. h/o PE in 05/2018, anticoagulant on hold 11. Prophylaxis: SCDs 12. Talked with surgical team about code status and that she is willing to do surgery if it is needed. Patient refuses labs this morning Result Diagram: 09/27/18 0643 09/27/18 0643 Results 24hrs Laboratory Tests Test 09/27/18 17:49 09/27/18 20:15 09/28/18 01:01 09/28/18 05:50 Bedside Glucose 99 90 97 95 Test 09/28/18 09:46 09/28/18 12:11 Bedside Glucose 134 115 Subjective 24 Hr Interval Summary Free Text/Dictation less abdominal pain Exam/Review of Systems Exam Vitals Vital Signs Date Temp Pulse Resp B/P (MAP) Pulse Ox O2 O2 Flow FiO2 Time Delivery Rate 09/28/18 111 96/48 (64) 13:13 09/28/18 22 96 Nasal 2.0 13:05 Cannula 09/28/18 98.6 11:34 Intake and Output 09/27/18 09/27/18 09/28/18 1515:00 23:00 07:00 IntakeIntake Total 160 ml 1075 ml BalanceBalance 160 ml 1075 ml Constitutional: alert, oriented, frail Head: normocephalic, atraumatic Eyes: nl conjunctiva, EOMI, nl lids, PERRL ENMT: nl external ears & nose, nl lips & teeth, nl nasal mucosa & septum Neck: supple, non-tender Respiratory: clear to auscultation, normal air movement; No congested cough, No crackles/rales, No diminished breath sounds, No intercostal retraction, No labored breathing, No respirations, No tactile fremitus, No wheezing, No other Cardiovascular: regular rate and rhythm, nl pulses Gastrointestinal: distended, tender (diffuse tenderness) Musculoskeletal: nl extremities to inspection Extremities: normal pulses; No calf tenderness, No cyanosis, No clubbing, No edema, No pitting pedal edema, No palpable cord, No tenderness, No other Neurological: PEANUT ROASTER II-XII intact, nl mental status, nl speech Results Results 24hrs Laboratory Tests Test 09/27/18 17:49 09/27/18 20:15 09/28/18 01:01 09/28/18 05:50 Bedside Glucose 99 90 97 95 Test 09/28/18 09:46 09/28/18 12:11 Bedside Glucose 134 115 Medications Medication Current Medications IV Flush (NS 3 ml) 3 ml PER PROTOCOL IV ; Start 09/15/18 at 07:30 Ondansetron HCl (Zofran Inj) 4 mg Q6H PRN IV NAUSEA/VOMITING Last administered on 09/19/18 07:53; Admin Dose 4 MG; Start 09/15/18 at 07:30 Acetaminophen (Tylenol Tab) 650 mg Q6H PRN PO .PAIN 1-3 OR TEMP Last administered on 09/16/18 21:56; Admin Dose 650 MG; Start 09/15/18 at 07:30 Baclofen (Lioresal) 10 mg BID PO Last administered on 09/23/18 09:45; Admin Dose 10 MG; Start 09/15/18 at 09:00; Status Hold Buspirone HCl (Buspar) 10 mg BID PO Last administered on 09/23/18 11:44; Admin Dose 10 MG; Start 09/15/18 at 09:00; Status Hold Calcium Carbonate (Oyster Shell Calcium) 1.25 gm BID PO Last administered on 09/23/18 11:44; Admin Dose 1.25 GM; Start 09/15/18 at 09:00; Status Hold Clonazepam (Klonopin) 0.5 mg DAILY PRN PO ANXIETY Last administered on 7/26/19at 02:04; Admin Dose 0.5 MG; Start 09/15/18 at 07:30; Status Hold Docusate Sodium (Colace) 100 mg BID PO Last administered on 09/23/18 09:43; Admin Dose 100 MG; Start 09/15/18 at 09:00; Status Hold Rifaximin (Xifaxan) 550 mg BID PO Last administered on 09/22/18 21:42; Admin Dose 550 MG; Start 09/15/18 at 09:00; Status Hold Sertraline HCl (Zoloft) 100 mg DAILY PO ; Start 09/15/18 at 09:00; Status Hold Fluticasone/ Vilanterol (Breo Ellipta 200-25 Mcg Inh) 1 inh DAILY INH Last administered on 09/27/18 08:39; Admin Dose 1 INH; Start 09/15/18 at 09:00 Albuterol/ Ipratropium (Duoneb) 3 ml Q3H RESP THERAPY PRN HHN WHEEZING AND SOB Last administered on 09/21/18 21:08; Admin Dose 3 ML; Start 09/15/18 at 08:00 Levalbuterol (Xopenex Neb) 0.63 mg Q4H RESP THERAPY HHN Last administered on 09/28/18 13:04; Admin Dose 0.63 MG; Start 09/15/18 at 17:00 Levalbuterol (Xopenex Neb) 0.63 mg Q2H RESP THERAPY PRN HHN WHEEZING AND SOB; Start 09/15/18 at 14:00 Collagenase (Santyl) 1 applic DAILY TOP Last administered on 09/28/18 09:24; Admin Dose 1 APPLIC; Start 09/16/18 at 15:00 Apixaban (Eliquis) 5 mg BID PO Last administered on 09/23/18 09:45; Admin Dose 5 MG; Start 09/19/18 at 21:00; Status Hold Multivitamins Therapeutic (Theragran) 1 tab DAILY PO Last administered on 09/23/18 09:43; Admin Dose 1 TAB; Start 09/19/18 at 12:00 Ascorbic Acid (Vitamin C) 500 mg DAILY PO Last administered on 09/23/18 09:45; Admin Dose 500 MG; Start 09/19/18 at 12:00; Status Hold Zinc Sulfate (Zinc Sulfate) 220 mg DAILY PO Last administered on 09/22/18 08:50; Admin Dose 220 MG; Start 09/19/18 at 12:00; Status Hold Thiamine HCl (Vitamin B1) 50 mg DAILY PO Last administered on 09/23/18 09:45; Admin Dose 50 MG; Start 09/19/18 at 12:00; Status Hold Simethicone (Mylicon) 80 mg Q6H PRN PO DISTENSION/GAS/BLOATING Last administered on 09/22/18 23:50; Admin Dose 80 MG; Start 09/20/18 at 06:30 Diltiazem HCl (Cardizem Cd) 120 mg DAILY PO Last administered on 09/23/18 11:41; Admin Dose 120 MG; Start 09/20/18 at 09:00; Status Hold Zolpidem Tartrate (Ambien) 5 mg HS PRN PO INSOMNIA Last administered on 09/24/18 01:16; Admin Dose 5 MG; Start 09/21/18 at 02:00; Status Hold Phenol (Cepastat Lozenge) 1 lozenge Q1H PRN MT SORE THROAT Last administered on 09/22/18 03:32; Admin Dose 1 LOZENGE; Start 09/22/18 at 01:00 Levofloxacin (Levaquin) 500 mg DAILY@06 PO Last administered on 09/23/18 07:21; Admin Dose 500 MG; Start 09/23/18 at 06:00; Status Hold Metronidazole 100 ml @ 100 mls/hr Q8 IVPB Last administered on 09/23/18 22:03; Admin Dose 100 MLS/HR; Start 09/23/18 at 14:00; Status Hold Insulin Aspart (Novolog Insulin Pen) NOVOLOG *MILD* ALGORI... Q4 SC ; Start 09/24/18 at 01:00 Meropenem/Sodium Chloride 50 ml @ 100 mls/hr Q8H IVPB Last administered on 09/28/18 10:45; Admin Dose 100 MLS/HR; Start 09/24/18 at 02:30 Hydromorphone HCl (Dilaudid) 0.5 mg Q4H PRN IV SEVERE PAIN LEVEL 7-10 Last administered on 09/28/18 10:45; Admin Dose 0.5 MG; Start 09/24/18 at 03:00 Lorazepam (Ativan) 0.5 mg Q6H PRN IV ANXIETY Last administered on 09/28/18at 02:13; Admin Dose 0.5 MG; Start 09/24/18 at 03:00 Pantoprazole (Protonix Iv) 40 mg BID@06,18 IV Last administered on 09/28/18at 05:51; Admin Dose 40 MG; Start 09/24/18 at 18:00 Miscellaneous Information 1 ea NOTE XX ; Start 09/25/18 at 22:00 Glucose (Glutose) 15 gm Q15M PRN PO DECREASED GLUCOSE; Start 09/25/18 at 22:00 Glucose (Glutose) 22.5 gm Q15M PRN PO DECREASED GLUCOSE; Start 09/25/18 at 22:00 Dextrose (D50w Syringe) 25 ml Q15M PRN IV DECREASED GLUCOSE Last administered on 09/26/18at 21:39; Admin Dose 25 ML; Start 09/25/18 at 22:00 Dextrose (D50w Syringe) 50 ml Q15M PRN IV DECREASED GLUCOSE; Start 09/25/18 at 22:00 Glucagon (Glucagen) 1 mg Q15M PRN IM DECREASED GLUCOSE; Start 09/25/18 at 22:00 Glucose (Glutose) 15 gm Q15M PRN BUCCAL DECREASED GLUCOSE; Start 09/25/18 at 2 2:00 Mupirocin (Bactroban) 1 applic BID TOP Last administered on 09/28/18at 09:37; Admin Dose 1 APPLIC; Start 09/26/18 at 21:00; Stop 10/06/18 at 09:01 Potassium Chloride 20 meq/ Multivitamins 10 ml/Dextrose/ Sodium Chloride 1,020 ml @ 75 mls/hr Q24H IV ; Start 09/29/18 at 04:00 Potassium Chloride/Dextrose/ Sod Cl 1,000 ml @ 75 mls/hr [id number] IV ; Start 09/28/18 at 06:30 Methadone HCl (Methadone Liq) 2 mg Q4 SL ; Start 09/28/18 at 09:30 RALF RAMOS MD Sep 28, 2018 13:43
--- NOTE | 2018-09-28 13:58 | CONS ---
Assessment/Plan Assessment/Plan Hospital Course (Demo Recall) No acute changes, awake, looks comfortable Abx: Merrem HEENT: Within normal limits. NECK: Supple. CHEST: Decreased breath sounds at the bases. HEART: S1 S2 ABDOMEN: She has some tenderness diffusely in the abdomen. EXTREMITIES: Without cyanosis, clubbing, or edema. Assessment: 1. Perforated viscus with possible small bowel obstruction 2. Non-ST elevation NC 3. COPD Plan: Patient remains unchanged, continue abx, TPN, f/u surgical rec-s Consultation Date/Type/Reason Admit Date/Time Sep 15, 2018 at 03:32 Initial Consult Date 09/24/18 Type of Consult id Requesting Provider: LEOBARDO DC Date/Time of Note DATE: 09/28/18 TIME: 13:57 Exam/Review of Systems Exam Vitals Vital Signs Date Temp Pulse Resp B/P (MAP) Pulse Ox O2 O2 Flow FiO2 Time Delivery Rate 09/28/18 111 96/48 (64) 13:13 09/28/18 22 96 Nasal 2.0 13:05 Cannula 09/28/18 98.6 11:34 Intake and Output 09/27/18 09/27/18 09/28/18 1515:00 23:00 07:00 IntakeIntake Total 160 ml 1075 ml BalanceBalance 160 ml 1075 ml Results Result Diagram: 09/27/18 0643 09/27/18 0643 Results 24hrs Laboratory Tests Test 09/27/18 17:49 09/27/18 20:15 09/28/18 01:01 09/28/18 05:50 Bedside Glucose 99 90 97 95 Test 09/28/18 09:46 09/28/18 12:11 Bedside Glucose 134 115 Medications Medication Current Medications IV Flush (NS 3 ml) 3 ml PER PROTOCOL IV ; Start 09/15/18 at 07:30 Ondansetron HCl (Zofran Inj) 4 mg Q6H PRN IV NAUSEA/VOMITING Last administered on 09/19/18at 07:53; Admin Dose 4 MG; Start 09/15/18 at 07:30 Acetaminophen (Tylenol Tab) 650 mg Q6H PRN PO .PAIN 1-3 OR TEMP Last administered on 09/16/18at 21:56; Admin Dose 650 MG; Start 09/15/18 at 07:30 Baclofen (Lioresal) 10 mg BID PO Last administered on 09/23/18 09:45; Admin Dose 10 MG; Start 09/15/18 at 09:00; Status Hold Buspirone HCl (Buspar) 10 mg BID PO Last administered on 09/23/18 11:44; Admin Dose 10 MG; Start 09/15/18 at 09:00; Status Hold Calcium Carbonate (Oyster Shell Calcium) 1.25 gm BID PO Last administered on 09/23/18 11:44; Admin Dose 1.25 GM; Start 09/15/18 at 09:00; Status Hold Clonazepam (Klonopin) 0.5 mg DAILY PRN PO ANXIETY Last administered on 9at 02:04; Admin Dose 0.5 MG; Start 09/15/18 at 07:30; Status Hold Docusate Sodium (Colace) 100 mg BID PO Last administered on 09/23/18 09:43; Admin Dose 100 MG; Start 09/15/18 at 09:00; Status Hold Rifaximin (Xifaxan) 550 mg BID PO Last administered on 09/22/18 21:42; Admin Dose 550 MG; Start 09/15/18 at 09:00; Status Hold Sertraline HCl (Zoloft) 100 mg DAILY PO ; Start 09/15/18 at 09:00; Status Hold Fluticasone/ Vilanterol (Breo Ellipta 200-25 Mcg Inh) 1 inh DAILY INH Last administered on 09/27/18 08:39; Admin Dose 1 INH; Start 09/15/18 at 09:00 Albuterol/ Ipratropium (Duoneb) 3 ml Q3H RESP THERAPY PRN HHN WHEEZING AND SOB Last administered on 09/21/18 21:08; Admin Dose 3 ML; Start 09/15/18 at 08:00 Levalbuterol (Xopenex Neb) 0.63 mg Q4H RESP THERAPY HHN Last administered on 09/28/18 13:04; Admin Dose 0.63 MG; Start 09/15/18 at 17:00 Levalbuterol (Xopenex Neb) 0.63 mg Q2H RESP THERAPY PRN HHN WHEEZING AND SOB; Start 09/15/18 at 14:00 Collagenase (Santyl) 1 applic DAILY TOP Last administered on 09/28/18 09:24; Admin Dose 1 APPLIC; Start 09/16/18 at 15:00 Apixaban (Eliquis) 5 mg BID PO Last administered on 09/23/18 09:45; Admin Dose 5 MG; Start 09/19/18 at 21:00; Status Hold Multivitamins Therapeutic (Theragran) 1 tab DAILY PO Last administered on 09/23/18 09:43; Admin Dose 1 TAB; Start 09/19/18 at 12:00 Ascorbic Acid (Vitamin C) 500 mg DAILY PO Last administered on 09/23/18 09:45; Admin Dose 500 MG; Start 09/19/18 at 12:00; Status Hold Zinc Sulfate (Zinc Sulfate) 220 mg DAILY PO Last administered on 09/22/18 08:50; Admin Dose 220 MG; Start 09/19/18 at 12:00; Status Hold Thiamine HCl (Vitamin B1) 50 mg DAILY PO Last administered on 09/23/18 09:45; Admin Dose 50 MG; Start 09/19/18 at 12:00; Status Hold Simethicone (Mylicon) 80 mg Q6H PRN PO DISTENSION/GAS/BLOATING Last administered on 09/22/18 23:50; Admin Dose 80 MG; Start 09/20/18 at 06:30 Diltiazem HCl (Cardizem Cd) 120 mg DAILY PO Last administered on 09/23/18 11:41; Admin Dose 120 MG; Start 09/20/18 at 09:00; Status Hold Zolpidem Tartrate (Ambien) 5 mg HS PRN PO INSOMNIA Last administered on 09/24/18 01:16; Admin Dose 5 MG; Start 09/21/18 at 02:00; Status Hold Phenol (Cepastat Lozenge) 1 lozenge Q1H PRN MT SORE THROAT Last administered on 09/22/18 03:32; Admin Dose 1 LOZENGE; Start 09/22/18 at 01:00 Levofloxacin (Levaquin) 500 mg DAILY@06 PO Last administered on 09/23/18 07:21; Admin Dose 500 MG; Start 09/23/18 at 06:00; Status Hold Metronidazole 100 ml @ 100 mls/hr Q8 IVPB Last administered on 09/23/18 22:03; Admin Dose 100 MLS/HR; Start 09/23/18 at 14:00; Status Hold Insulin Aspart (Novolog Insulin Pen) NOVOLOG *MILD* ALGORI... Q4 SC ; Start 09/24/18 at 01:00 Meropenem/Sodium Chloride 50 ml @ 100 mls/hr Q8H IVPB Last administered on 09/28/18at 10:45; Admin Dose 100 MLS/HR; Start 09/24/18 at 02:30 Hydromorphone HCl (Dilaudid) 0.5 mg Q4H PRN IV SEVERE PAIN LEVEL 7-10 Last administered on 09/28/18at 10:45; Admin Dose 0.5 MG; Start 09/24/18 at 03:00 Lorazepam (Ativan) 0.5 mg Q6H PRN IV ANXIETY Last administered on 09/28/18at 02:13; Admin Dose 0.5 MG; Start 09/24/18 at 03:00 Pantoprazole (Protonix Iv) 40 mg BID@06,18 IV Last administered on 09/28/18at 05:51; Admin Dose 40 MG; Start 09/24/18 at 18:00 Miscellaneous Information 1 ea NOTE XX ; Start 09/25/18 at 22:00 Glucose (Glutose) 15 gm Q15M PRN PO DECREASED GLUCOSE; Start 09/25/18 at 22:00 Glucose (Glutose) 22.5 gm Q15M PRN PO DECREASED GLUCOSE; Start 09/25/18 at 22:00 Dextrose (D50w Syringe) 25 ml Q15M PRN IV DECREASED GLUCOSE Last administered on 09/26/18at 21:39; Admin Dose 25 ML; Start 09/25/18 at 22:00 Dextrose (D50w Syringe) 50 ml Q15M PRN IV DECREASED GLUCOSE; Start 09/25/18 at 22:00 Glucagon (Glucagen) 1 mg Q15M PRN IM DECREASED GLUCOSE; Start 09/25/18 at 22:00 Glucose (Glutose) 15 gm Q15M PRN BUCCAL DECREASED GLUCOSE; Start 09/25/18 at 22:00 Mupirocin (Bactroban) 1 applic BID TOP Last administered on 09/28/18at 09:37; Admin Dose 1 APPLIC; Start 09/26/18 at 21:00; Stop 8/8/19 at 09:01 Potassium Chloride 20 meq/ Multivitamins 10 ml/Dextrose/ Sodium Chloride 1,020 ml @ 75 mls/hr Q24H IV ; Start 09/29/18 at 04:00 Potassium Chloride/Dextrose/ Sod Cl 1,000 ml @ 75 mls/hr [id number] IV ; Start 09/28/18 at 06:30 Methadone HCl (Methadone Liq) 2 mg Q4 SL ; Start 09/28/18 at 09:30 Sodium Chloride 500 ml @ 500 mls/hr Q1H ONCE IV ; Start 09/28/18 at 14:00; Stop 09/28/18 at 14:59 SKY HOSKINS NP Sep 28, 2018 13:58
[2018-09-28] MEDS ORDERED: SOD CHLORIDE 0.9% 500 ML IV ONE (14:00)
--- NOTE | 2018-09-28 14:26 | PN ---
Date/Time of Note Date/Time of Note DATE: 09/28/18 TIME: 14:21 Assessment/Plan Lines/Catheters IV Catheter Type (from [facility]): Mid Line Cline in Place (from [facility]): No Assessment/Plan Chief Complaint/Hosp Course 1. Perforated viscous with possible small bowel obstruction with possible bowel inflammation. long d/w patient-she is refusing surgery despite severe cons equences up to . Patient now considering surgical intervention. As she is hemodynamically stable and is clinically improving, we will await lab results to re-evaluate bandemia with plans for UGI to evaluate for contrast leak -contrast study to rule out continued leak> will await the bandemia improvement (pt refused labs this morning, had discussion with her to allow blood draw) -abx per ID -supportive -fluids -medical management -NGT to low intermittent wall suction -Strict n.p.o. 2. Hypoxic and hypercapnic respiratory failure -Supplemental oxygen, bronchodilators, as needed BiPAP -Pulmonary consult 3. NSTEMI -medical/cardiac optimization 4. Sepsis, leukopenia 2nd above -as above 5. Acute renal insufficiency improved judicious fluid management -avoid nephrotoxic agents 6. Elevated transaminases, history of hep C -Monitor 7. Chronic methadone use: -appreciate pain mgt input Thank you. Patient seen and examined in collaboration with Dr. Naveed Schumacher. Subjective 24 Hr Interval Summary Abdominal pain improved. + bowel function. Min ng output. Refused labs this morning. No fevers, chills, sob, congested cough, cp, palpitations, savage, dizzines s, n/v/d/dysuria. Exam/Review of Systems Vital Signs Vitals Vital Signs Date Temp Pulse Resp B/P (MAP) Pulse Ox O2 O2 Flow FiO2 Time Delivery Rate 09/28/18 111 96/48 (64) 13:13 09/28/18 22 96 Nasal 2.0 13:05 Cannula 09/28/18 98.6 11:34 Intake and Output 09/27/18 09/27/18 09/28/18 1515:00 23:00 07:00 IntakeIntake Total 160 ml 1075 ml BalanceBalance 160 ml 1075 ml Exam Free Text/Dictation Constitutional: alert, oriented (To self, Time, Situation, Location); No distress Psych: nl mood/affect; No anxiety Head: normocephalic, lacerations Eyes: nl conjunctiva, EOMI, PERRL; No icteric ENMT: nl external ears & nose, mucosa pink and moist, ngt Neck: supple, non-tender, jvd Respiratory: normal air movement; No congested cough, No labored breathing Cardiovascular: No regular rate and rhythm, No edema Gastrointestinal: soft, distended (min), tender; No rebound or guarding Musculoskeletal: nl extremities to inspection; No nl gait and stance, No joint tenderness Extremities: normal pulses Results Result Diagram: 09/27/18 0643 09/27/18 0643 RAFAEL EMERY NP Sep 28, 2018 14:26
[2018-09-28] MEDS ORDERED: MAGNESIUM SULFATE 2 GM/50 ML 50 ML IVPB ONE (16:00)
[2018-09-28] MEDS: POTASSIUM CHLORIDE 20 MEQ/SW 100 ML IVPB SCH ×2 (18:30→21:44)
[2018-09-28] MEDS ORDERED: POTASSIUM CHLORIDE 50 ML IVPB SCH (19:00)
[2018-09-29] MEDS: METHADONE (1 MG/ML 5 ML PO UD SYG) SL SCH ×6 (00:45→20:53)
[2018-09-29] MEDS: LEVALBUTEROL (NEB) 0.63 MG/3 ML AMP HHN SCH ×6 (01:00→21:00)
[2018-09-29] MEDS: INSULIN ASPART [NOVOLOG] 3 ML PEN SC SCH ×6 (01:00→21:00)
[2018-09-29] MEDS: LORAZEPAM 2 MG INJ IV PRN (01:32)
[2018-09-29] MEDS: MEROPENEM 1 GM/50ML(PMX) 50 ML IVPB SCH ×3 (02:53→17:31)
[2018-09-29 03:52] VITALS: BP 121/58; PULSE 111; RESP 18
[2018-09-29] MEDS: NACL IV SCH ×2 (04:00→10:01)
[2018-09-29] MEDS: MULTIVITAMINS IV SCH ×2 (04:00→10:01)
[2018-09-29] MEDS: POTASSIUM CHLORIDE IV SCH ×2 (04:00→10:01)
[2018-09-29] MEDS: DEXTROSE IV SCH ×2 (04:00→10:01)
[2018-09-29] MEDS: HYDROmorphONE 0.5 MG/0.5 ML SYG IV PRN ×2 (04:21→22:13)
[2018-09-29] MEDS: PANTOPRAZOLE 40 MG INJ IV SCH ×2 (05:31→17:30)
[2018-09-29] MEDS: MULTIVITAMINS THERAPEUTIC TAB PO SCH (08:00)
[2018-09-29 08:01] VITALS: BP 109/59; PULSE 116; RESP 16
--- NOTE | 2018-09-29 08:01 | CONS ---
Assessment/Plan Assessment/Plan Assessment/Plan (Daily) History of perforated viscus of the small bowel On NG tube suctioning Patient declined surgery on IV antibiotic coverage surgery following Respiratory failure secondary to chronic obstructive pulmonary disease Fluid and electrolyte abnormalities History of hepatitis C History of heroin use on methadone maintenance now on sublingual methadone for pain management Pain controlled Continue current sublingual methadone states she had a good night and pain is managed. 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 Exam/Review of Systems Exam Vitals Vital Signs Date Temp Pulse Resp B/P (MAP) Pulse Ox O2 O2 Flow FiO2 Time Delivery Rate 09/29/18 97.7 111 18 121/58 97 03:52 (79) 09/29/18 2.0 01:21 09/29/18 Nasal 01:21 Cannula Intake and Output 09/28/18 09/28/18 09/29/18 1515:00 23:00 07:00 IntakeIntake Total 100 ml 700 ml OutputOutput Total 20 ml BalanceBalance 100 ml 680 ml Constitutional: alert, oriented, well developed Psych: anxiety Neck: supple, non-tender; No jvd, No bruits, No masses, No thyromegaly, No nuchal rigidity, No other Neurological: LABORER II-XII intact, nl mental status, nl speech, nl strength; No confused, No DTR's symmetric, No focal weakness, No lethargic, No numbness, No reflexes, No unresponsive, No other Results Result Diagram: 09/29/18 0621 09/29/1821 Results 24hrs Laboratory Tests Test 09/28/18 09:46 09/28/18 12:11 09/28/18 14:25 09/28/18 17:20 Bedside Glucose 134 115 110 White Blood Count 4.8 # Red Blood Count 2.57 L Hemoglobin 7.8 L Hematocrit 24.1 L Mean Corpuscular 93.8 Volume Mean Corpuscular 30.4 Hemoglobin Mean Corpuscular 32.4 Hemoglobin Concent Red Cell 15.5 H Distribution Width Platelet Count 158 Mean Platelet Volume 11.0 H Immature 0.800 H Granulocytes % Neutrophils % Segmented 92 H Neutrophils % (Manual) Band Neutrophils % 1 (Manual) Lymphocytes % Lymphocytes % 5 L (Manual) Monocytes % Monocytes % (Manual) 1 Eosinophils % Eosinophils % 1 (Manual) Basophils % Nucleated Red Blood 0.0 Cells % Immature 0.040 H Granulocytes # Neutrophils # Neutrophils # 4.4 (Manual) Band Neutrophils # 0.0 Lymphocytes (Manual) 0.2 L Lymphocytes # Monocytes # Monocytes # (Manual) 0.0 L Eosinophils # Basophils # Nucleated Red Blood Cells # Anisocytosis 2+ Macrocytosis 2+ Sodium Level 135 Potassium Level 3.3 L Chloride Level 103 Carbon Dioxide Level 31 Anion Gap 1 L Blood Urea Nitrogen 6 L Creatinine 0.48 Est Glomerular > 60 Filtrat Rate mL/min Glucose Level 120 Calcium Level 7.1 L Phosphorus Level 1.8 L Magnesium Level 1.5 L Test 09/28/18 20:43 09/29/18 00:50 09/29/18 06:07 09/29/18 06:21 Bedside Glucose 87 81 88 White Blood Count 5.7 Red Blood Count 2.59 L Hemoglobin 7.7 L Hematocrit 24.2 L Mean Corpuscular 93.4 Volume Mean Corpuscular 29.7 Hemoglobin Mean Corpuscular 31.8 L Hemoglobin Concent Red Cell 15.6 H Distribution Width Platelet Count 163 Mean Platelet Volume 11.0 H Immature 0.700 H Granulocytes % Neutrophils % Lymphocytes % Monocytes % Eosinophils % Basophils % Nucleated Red Blood 0.0 Cells % Immature 0.040 H Granulocytes # Neutrophils # Lymphocytes # Monocytes # Eosinophils # Basophils # Nucleated Red Blood Cells # Sodium Level 137 Potassium Level 4.2 Chloride Level 107 Carbon Dioxide Level 28 Anion Gap 2 L Blood Urea Nitrogen 6 L Creatinine 0.38 L Est Glomerular > 60 Filtrat Rate mL/min Glucose Level 115 Calcium Level 7.0 L Phosphorus Level 1.7 L Magnesium Level 1.9 Medications Medication Current Medications IV Flush (NS 3 ml) 3 ml PER PROTOCOL IV ; Start 09/15/18 at 07:30 Ondansetron HCl (Zofran Inj) 4 mg Q6H PRN IV NAUSEA/VOMITING Last administered on 09/19/18 07:53; Admin Dose 4 MG; Start 09/15/18 at 07:30 Acetaminophen (Tylenol Tab) 650 mg Q6H PRN PO .PAIN 1-3 OR TEMP Last administered on 09/16/18 21:56; Admin Dose 650 MG; Start 09/15/18 at 07:30 Baclofen (Lioresal) 10 mg BID PO Last administered on 09/23/18 09:45; Admin Dose 10 MG; Start 09/15/18 at 09:00; Status Hold Buspirone HCl (Buspar) 10 mg BID PO Last administered on 09/23/18 11:44; Admin Dose 10 MG; Start 09/15/18 at 09:00; Status Hold Calcium Carbonate (Oyster Shell Calcium) 1.25 gm BID PO Last administered on 09/23/18 11:44; Admin Dose 1.25 GM; Start 09/15/18 at 09:00; Status Hold Clonazepam (Klonopin) 0.5 mg DAILY PRN PO ANXIETY Last administered on 09/23/18 02:04; Admin Dose 0.5 MG; Start 09/15/18 at 07:30; Status Hold Docusate Sodium (Colace) 100 mg BID PO Last administered on 09/23/18 09:43; Admin Dose 100 MG; Start 09/15/18 at 09:00; Status Hold Rifaximin (Xifaxan) 550 mg BID PO Last administered on 09/22/18 21:42; Admin Dose 550 MG; Start 09/15/18 at 09:00; Status Hold Sertraline HCl (Zoloft) 100 mg DAILY PO ; Start 09/15/18 at 09:00; Status Hold Fluticasone/ Vilanterol (Breo Ellipta 200-25 Mcg Inh) 1 inh DAILY INH Last administered on 09/27/18 08:39; Admin Dose 1 INH; Start 09/15/18 at 09:00 Albuterol/ Ipratropium (Duoneb) 3 ml Q3H RESP THERAPY PRN HHN WHEEZING AND SOB Last administered on 09/21/18 21:08; Admin Dose 3 ML; Start 09/15/18 at 08:00 Levalbuterol (Xopenex Neb) 0.63 mg Q4H RESP THERAPY HHN Last administered on 09/28/18 13:04; Admin Dose 0.63 MG; Start 09/15/18 at 17:00 Levalbuterol (Xopenex Neb) 0.63 mg Q2H RESP THERAPY PRN HHN WHEEZING AND SOB; Start 09/15/18 at 14:00 Collagenase (Santyl) 1 applic DAILY TOP Last administered on 09/28/18 09:24; Admin Dose 1 APPLIC; Start 09/16/18 at 15:00 Apixaban (Eliquis) 5 mg BID PO Last administered on 09/23/18 09:45; Admin Dose 5 MG; Start 09/19/18 at 21:00; Status Hold Multivitamins Therapeutic (Theragran) 1 tab DAILY PO Last administered on 09/23/18 09:43; Admin Dose 1 TAB; Start 09/19/18 at 12:00 Ascorbic Acid (Vitamin C) 500 mg DAILY PO Last administered on 09/23/18 09:45; Admin Dose 500 MG; Start 09/19/18 at 12:00; Status Hold Zinc Sulfate (Zinc Sulfate) 220 mg DAILY PO Last administered on 09/22/18 08:5 0; Admin Dose 220 MG; Start 09/19/18 at 12:00; Status Hold Thiamine HCl (Vitamin B1) 50 mg DAILY PO Last administered on 09/23/18 09:45; Admin Dose 50 MG; Start 09/19/18 at 12:00; Status Hold Simethicone (Mylicon) 80 mg Q6H PRN PO DISTENSION/GAS/BLOATING Last administered on 09/22/18 23:50; Admin Dose 80 MG; Start 09/20/18 at 06:30 Diltiazem HCl (Cardizem Cd) 120 mg DAILY PO Last administered on 09/23/18 11:41; Admin Dose 120 MG; Start 09/20/18 at 09:00; Status Hold Zolpidem Tartrate (Ambien) 5 mg HS PRN PO INSOMNIA Last administered on 09/24/18 01:16; Admin Dose 5 MG; Start 09/21/18 at 02:00; Status Hold Phenol (Cepastat Lozenge) 1 lozenge Q1H PRN MT SORE THROAT Last administered on 7/25/19at 03:32; Admin Dose 1 LOZENGE; Start 09/22/18 at 01:00 Levofloxacin (Levaquin) 500 mg DAILY@06 PO Last administered on 09/23/18at 07:21; Admin Dose 500 MG; Start 09/23/18 at 06:00; Status Hold Metronidazole 100 ml @ 100 mls/hr Q8 IVPB Last administered on 09/23/18at 22:03; Admin Dose 100 MLS/HR; Start 09/23/18 at 14:00; Status Hold Insulin Aspart (Novolog Insulin Pen) NOVOLOG *MILD* ALGORI... Q4 SC ; Start 09/24/18 at 01:00 Meropenem/Sodium Chloride 50 ml @ 100 mls/hr Q8H IVPB Last administered on 09/29/18at 02:53; Admin Dose 100 MLS/HR; Start 09/24/18 at 02:30 Hydromorphone HCl (Dilaudid) 0.5 mg Q4H PRN IV SEVERE PAIN LEVEL 7-10 Last administered on 09/29/18at 04:21; Admin Dose 0.5 MG; Start 09/24/18 at 03:00 Lorazepam (Ativan) 0.5 mg Q6H PRN IV ANXIETY Last administered on 09/29/18at 01:32; Admin Dose 0.5 MG; Start 09/24/18 at 03:00 Pantoprazole (Protonix Iv) 40 mg BID@06,18 IV Last administered on 09/29/18at 05:31; Admin Dose 40 MG; Start 09/24/18 at 18:00 Miscellaneous Information 1 ea NOTE XX ; Start 09/25/18 at 22:00 Glucose (Glutose) 15 gm Q15M PRN PO DECREASED GLUCOSE; Start 09/25/18 at 22:00 Glucose (Glutose) 22.5 gm Q15M PRN PO DECREASED GLUCOSE; Start 09/25/18 at 22:00 Dextrose (D50w Syringe) 25 ml Q15M PRN IV DECREASED GLUCOSE Last administered on 09/26/18at 21:39; Admin Dose 25 ML; Start 09/25/18 at 22:00 Dextrose (D50w Syringe) 50 ml Q15M PRN IV DECREASED GLUCOSE; Start 09/25/18 at 22:00 Glucagon (Glucagen) 1 mg Q15M PRN IM DECREASED GLUCOSE; Start 09/25/18 at 22:00 Glucose (Glutose) 15 gm Q15M PRN BUCCAL DECREASED GLUCOSE; Start 09/25/18 at 22:00 Mupirocin (Bactroban) 1 applic BID TOP Last administered on 09/28/18at 20:44; Admin Dose 1 APPLIC; Start 09/26/18 at 21:00; Stop 10/06/18 at 09:01 Potassium Chloride 20 meq/ Multivitamins 10 ml/Dextrose/ Sodium Chloride 1,020 ml @ 75 mls/hr Q24H IV ; Start 09/29/18 at 04:00 Potassium Chloride/Dextrose/ Sod Cl 1,000 ml @ 75 mls/hr [id number] IV Last administered on 09/28/18at 21:44; Admin Dose 75 MLS/HR; Start 09/28/18 at 06:30 Methadone HCl (Methadone Liq) 2 mg Q4 SL Last administered on 09/29/18at 05:31; Admin Dose 2 MG; Start 09/28/18 at 09:30 RUFINA LINK Sep 29, 2018 08:01
[2018-09-29] MEDS: COLLAGENASE 5 GM (UD JAR) TOP SCH (08:30)
[2018-09-29] MEDS: FLUTICASONE/VILANTEROL 200-25 INH DEVICE INH SCH (08:31)
[2018-09-29] MEDS: MUPIROCIN 2% 22 GM OINT TOP SCH ×2 (08:31→20:51)
[2018-09-29] MEDS: BALSAM PERU/CASTOR OIL 60 GM TUBE TOP SCH ×2 (08:31→20:52)
[2018-09-29] MEDS: D5-NS + KCL 20 MEQ 1,000 ML IV SCH ×2 (08:33→22:24)
--- NOTE | 2018-09-29 08:56 | PN ---
DATE: 09/29/2018 SUBJECTIVE: The patient is stable, no events overnight, remains on IV fluids. Patient is pending an upper GI series. OBJECTIVE: VITAL SIGNS: Blood pressure 121/58, respiration 18, pulse 111, temperature 97.7. HEENT: Head is normocephalic. NECK: Supple. HEART: Regular rate. LUNGS: Show diminished breath sounds at the base. ABDOMEN: Soft, nontender to palpation without rebound or guarding. EXTREMITIES: Negative for clubbing, cyanosis, no edema. DERMATOLOGIC: No rashes. MUSCULOSKELETAL: No joint effusion. NEUROLOGIC: No change in exam. MEDICATIONS: The patient's medications have been reviewed. LABORATORY DATA: Has been reviewed. IMAGING STUDIES: Have been reviewed. ASSESSMENT AND PLAN: 1. Nonoliguric acute kidney injury. Etiology is secondary to hemodynamics. Renal function has impr alethea. Continue to monitor. 2. Electrolyte abnormality, hyperkalemia and hypomagnesemia. Continue to monitor and replete. 3. Anemia. Monitor hemoglobin and hematocrit levels. 4. Mineral bone disorder. Monitor calcium and phosphorus levels. 5. Non-STEMI. Continue medical management. 6. Perforated viscus. The patient is pending upper GI series for further evaluation refusing surger y at this time. 7. Nutrition. The patient currently is n.p.o. Consider TPN. 8. Hyponatremia, improved. 9. Sepsis. Continue current antibiotic regimen. 10. History of hepatitis C. Dictated By: RICHARD ORTIZ DO NR/NTS Conf#: [id number] DID#: [id number] CC: GERALDO VARGAS MD; PEDRITO MUHAMMAD MD; DENZEL HOFFMANN MD;*EndCC*
[2018-09-29] MEDS ORDERED: IOHEXOL 300MG/ML 150 ML BTL ONE (10:45)
--- NOTE | 2018-09-29 11:33 | CONS ---
Consult Date/Type/Reason Admit Date/Time Sep 15, 2018 at 03:32 Initial Consult Date 09/15/18 Type of Consult Pulmonary Requesting Provider: LEOBARDO DC Date/Time of Note DATE: 09/29/18 TIME: 11:32 Subjective No significant changes. Continues nasogastric tube unclear with the patient once surgery appears to be fluctuating and decision making Objective Vital Signs Date Temp Pulse Resp B/P (MAP) Pulse Ox O2 O2 Flow FiO2 Time Delivery Rate 09/29/18 98.0 116 16 109/59 92 Nasal 08:01 (76) Cannula 116 09/29/18 2.0 01:21 Intake and Output 09/28/18 09/28/18 09/29/18 1515:00 23:00 07:00 IntakeIntake Total 100 ml 700 ml OutputOutput Total 20 ml BalanceBalance 100 ml 680 ml Exam GENERAL: VITAL SIGNS: per chart NECK: Supple. No JVD or lymphadenopathy. CARDIAC EXAM: S1, S2. No added sounds or murmurs. CHEST: Diminished air entry bilaterally ABDOMEN: Diminished bowel sounds EXTREMITIES: No cyanosis, clubbing or edema. NEUROLOGIC: Generalized weakness. No focal deficits. Thin elderly lady appears comfortable at rest Vent Setting Fraction of Inspired Oxygen pe: 21 Results/Medications Result Diagram: 09/29/18 0621 09/29/18 0621 Results 24 hrs Laboratory Tests Test 09/28/18 12:11 09/28/18 14:25 09/28/18 17:20 09/28/18 20:43 Bedside Glucose 115 110 87 White Blood Count 4.8 # Red Blood Count 2.57 L Hemoglobin 7.8 L Hematocrit 24.1 L Mean Corpuscular 93.8 Volume Mean Corpuscular 30.4 Hemoglobin Mean Corpuscular 32.4 Hemoglobin Concent Red Cell 15.5 H Distribution Width Platelet Count 158 Mean Platelet Volume 11.0 H Immature 0.800 H Granulocytes % Neutrophils % Segmented 92 H Neutrophils % (Manual) Band Neutrophils % 1 (Manual) Lymphocytes % Lymphocytes % 5 L (Manual) Monocytes % Monocytes % (Manual) 1 Eosinophils % Eosinophils % 1 (Manual) Basophils % Nucleated Red Blood 0.0 Cells % Immature 0.040 H Granulocytes # Neutrophils # Neutrophils # 4.4 (Manual) Band Neutrophils # 0.0 Lymphocytes (Manual) 0.2 L Lymphocytes # Monocytes # Monocytes # (Manual) 0.0 L Eosinophils # Basophils # Nucleated Red Blood Cells # Anisocytosis 2+ Macrocytosis 2+ Sodium Level 135 Potassium Level 3.3 L Chloride Level 103 Carbon Dioxide Level 31 Anion Gap 1 L Blood Urea Nitrogen 6 L Creatinine 0.48 Est Glomerular > 60 Filtrat Rate mL/min Glucose Level 120 Calcium Level 7.1 L Phosphorus Level 1.8 L Magnesium Level 1.5 L Test 09/29/18 00:50 09/29/18 06:07 09/29/18 06:21 09/29/18 08:32 Bedside Glucose 81 88 104 White Blood Count 5.7 Red Blood Count 2.59 L Hemoglobin 7.7 L Hematocrit 24.2 L Mean Corpuscular 93.4 Volume Mean Corpuscular 29.7 Hemoglobin Mean Corpuscular 31.8 L Hemoglobin Concent Red Cell 15.6 H Distribution Width Platelet Count 163 Mean Platelet Volume 11.0 H Immature 0.700 H Granulocytes % Neutrophils % Segmented 66 Neutrophils % (Manual) Band Neutrophils % 18 H (Manual) Lymphocytes % Lymphocytes % 9 L (Manual) Monocytes % Monocytes % (Manual) 4 Eosinophils % Eosinophils % 2 (Manual) Basophils % Basophils % (Manual) 1 Nucleated Red Blood 0.0 Cells % Immature 0.040 H Granulocytes # Neutrophils # Neutrophils # 3.8 (Manual) Band Neutrophils # 1.0 H Lymphocytes (Manual) 0.5 L Lymphocytes # Monocytes # Monocytes # (Manual) 0.2 L Eosinophils # Basophils # Basophils # (Manual) 0.0 Nucleated Red Blood Cells # Platelet Estimate NORMAL Giant Platelets 2 H Polychromasia 1+ Hypochromasia 1+ Anisocytosis 1+ Macrocytosis 1+ Ovalocytes 1+ Sodium Level 137 Potassium Level 4.2 Chloride Level 107 Carbon Dioxide Level 28 Anion Gap 2 L Blood Urea Nitrogen 6 L Creatinine 0.38 L Est Glomerular > 60 Filtrat Rate mL/min Glucose Level 115 Calcium Level 7.0 L Phosphorus Level 1.7 L Magnesium Level 1.9 Medications Current Medications IV Flush (NS 3 ml) 3 ml PER PROTOCOL IV ; Start 09/15/18 at 07:30 Ondansetron HCl (Zofran Inj) 4 mg Q6H PRN IV NAUSEA/VOMITING Last administered on 09/19/18at 07:53; Admin Dose 4 MG; Start 09/15/18 at 07:30 Acetaminophen (Tylenol Tab) 650 mg Q6H PRN PO .PAIN 1-3 OR TEMP Last administered on 09/16/18 21:56; Admin Dose 650 MG; Start 09/15/18 at 07:30 Baclofen (Lioresal) 10 mg BID PO Last administered on 09/23/18 09:45; Admin Dose 10 MG; Start 09/15/18 at 09:00; Status Hold Buspirone HCl (Buspar) 10 mg BID PO Last administered on 09/23/18 11:44; Admin Dose 10 MG; Start 09/15/18 at 09:00; Status Hold Calcium Carbonate (Oyster Shell Calcium) 1.25 gm BID PO Last administered on 09/23/18 11:44; Admin Dose 1.25 GM; Start 09/15/18 at 09:00; Status Hold Clonazepam (Klonopin) 0.5 mg DAILY PRN PO ANXIETY Last administered on 09/23/18 02:04; Admin Dose 0.5 MG; Start 09/15/18 at 07:30; Status Hold Docusate Sodium (Colace) 100 mg BID PO Last administered on 09/23/18 09:43; Admin Dose 100 MG; Start 09/15/18 at 09:00; Status Hold Rifaximin (Xifaxan) 550 mg BID PO Last administered on 09/22/18 21:42; Admin Dose 550 MG; Start 09/15/18 at 09:00; Status Hold Sertraline HCl (Zoloft) 100 mg DAILY PO ; Start 09/15/18 at 09:00; Status Hold Fluticasone/ Vilanterol (Breo Ellipta 200-25 Mcg Inh) 1 inh DAILY INH Last administered on 09/29/18 08:31; Admin Dose 1 INH; Start 09/15/18 at 09:00 Albuterol/ Ipratropium (Duoneb) 3 ml Q3H RESP THERAPY PRN HHN WHEEZING AND SOB Last administered on 09/21/18 21:08; Admin Dose 3 ML; Start 09/15/18 at 08:00 Levalbuterol (Xopenex Neb) 0.63 mg Q4H RESP THERAPY HHN Last administered on 09/28/18 13:04; Admin Dose 0.63 MG; Start 09/15/18 at 17:00 Levalbuterol (Xopenex Neb) 0.63 mg Q2H RESP THERAPY PRN HHN WHEEZING AND SOB; Start 09/15/18 at 14:00 Collagenase (Santyl) 1 applic DAILY TOP Last administered on 09/29/18 08:30; Admin Dose 1 APPLIC; Start 09/16/18 at 15:00 Apixaban (Eliquis) 5 mg BID PO Last administered on 09/23/18 09:45; Admin Dose 5 MG; Start 09/19/18 at 21:00; Status Hold Multivitamins Therapeutic (Theragran) 1 tab DAILY PO Last administered on 09/23/18 09:43; Admin Dose 1 TAB; Start 09/19/18 at 12:00 Ascorbic Acid (Vitamin C) 500 mg DAILY PO Last administered on 09/23/18 09:45; Admin Dose 500 MG; Start 09/19/18 at 12:00; Status Hold Zinc Sulfate (Zinc Sulfate) 220 mg DAILY PO Last administered on 09/22/18 08:50; Admin Dose 220 MG; Start 09/19/18 at 12:00; Status Hold Thiamine HCl (Vitamin B1) 50 mg DAILY PO Last administered on 09/23/18 09:45; Admin Dose 50 MG; Start 09/19/18 at 12:00; Status Hold Simethicone (Mylicon) 80 mg Q6H PRN PO DISTENSION/GAS/BLOATING Last administered on 09/22/18 23:50; Admin Dose 80 MG; Start 09/20/18 at 06:30 Diltiazem HCl (Cardizem Cd) 120 mg DAILY PO Last administered on 09/23/18 11:41; Admin Dose 120 MG; Start 09/20/18 at 09:00; Status Hold Zolpidem Tartrate (Ambien) 5 mg HS PRN PO INSOMNIA Last administered on 09/24/18 01:16; Admin Dose 5 MG; Start 09/21/18 at 02:00; Status Hold Phenol (Cepastat Lozenge) 1 lozenge Q1H PRN MT SORE THROAT Last administered on 09/22/18 03:32; Admin Dose 1 LOZENGE; Start 09/22/18 at 01:00 Levofloxacin (Levaquin) 500 mg DAILY@06 PO Last administered on 09/23/18 07:21; Admin Dose 500 MG; Start 09/23/18 at 06:00; Status Hold Metronidazole 100 ml @ 100 mls/hr Q8 IVPB Last administered on 09/23/18at 22:03; Admin Dose 100 MLS/HR; Start 09/23/18 at 14:00; Status Hold Insulin Aspart (Novolog Insulin Pen) NOVOLOG *MILD* ALGORI... Q4 SC ; Start 09/24/18 at 01:00 Meropenem/Sodium Chloride 50 ml @ 100 mls/hr Q8H IVPB Last administered on at 10:00; Admin Dose 100 MLS/HR; Start 09/24/18 at 02:30 Hydromorphone HCl (Dilaudid) 0.5 mg Q4H PRN IV SEVERE PAIN LEVEL 7-10 Last administered on 09/29/18at 04:21; Admin Dose 0.5 MG; Start 09/24/18 at 03:00 Lorazepam (Ativan) 0.5 mg Q6H PRN IV ANXIETY Last administered on 09/29/18at 01:32; Admin Dose 0.5 MG; Start 09/24/18 at 03:00 Pantoprazole (Protonix Iv) 40 mg BID@06,18 IV Last administered on 09/29/18at 05:31; Admin Dose 40 MG; Start 09/24/18 at 18:00 Miscellaneous Information 1 ea NOTE XX ; Start 09/25/18 at 22:00 Glucose (Glutose) 15 gm Q15M PRN PO DECREASED GLUCOSE; Start 09/25/18 at 22:00 Glucose (Glutose) 22.5 gm Q15M PRN PO DECREASED GLUCOSE; Start 09/25/18 at 22:00 Dextrose (D50w Syringe) 25 ml Q15M PRN IV DECREASED GLUCOSE Last administered on 09/26/18at 21:39; Admin Dose 25 ML; Start 09/25/18 at 22:00 Dextrose (D50w Syringe) 50 ml Q15M PRN IV DECREASED GLUCOSE; Start 09/25/18 at 22:00 Glucagon (Glucagen) 1 mg Q15M PRN IM DECREASED GLUCOSE; Start 09/25/18 at 22:00 Glucose (Glutose) 15 gm Q15M PRN BUCCAL DECREASED GLUCOSE; Start 09/25/18 at 22:00 Mupirocin (Bactroban) 1 applic BID TOP Last administered on 09/29/18at 08:31; Admin Dose 1 APPLIC; Start 09/26/18 at 21:00; Stop 10/06/18 at 09:01 Potassium Chloride 20 meq/ Multivitamins 10 ml/Dextrose/ Sodium Chloride 1,020 ml @ 75 mls/hr Q24H IV Last administered on 09/29/18 10:01; Admin Dose 75 MLS/HR; Start 09/29/18 at 04:00 Potassium Chloride/Dextrose/ Sod Cl 1,000 ml @ 75 mls/hr [id number] IV Last administered on 09/28/18at 21:44; Admin Dose 75 MLS/HR; Start 09/28/18 at 06:30 Methadone HCl (Methadone Liq) 2 mg Q4 SL Last administered on 09/29/18at 08:30; Admin Dose 2 MG; Start 09/28/18 at 09:30 Assessment/Plan Hospital Course (Demo Recall) IMP: 1. Possible perforated PUD--refusing intervention 2. Chronic obstructive pulmonary disease with acute exacerbation. 3. Type 2 NSTEMI 4. s/p Dehydration and renal insufficiency. 5. History of venous thromboembolism--anticoagulation on hold RECS: 1. Continue to hold ATC; follow H/H 2. Surgical and GI recommendations 3. BDs 4. Aspiration precautions Appreciate palliative care evaluation EMMA STEINBERG MD, [facility] Sep 29, 2018 11:33
--- NOTE | 2018-09-29 11:55 | PN ---
Date/Time of Note Date/Time of Note DATE: 09/29/18 TIME: 11:53 Assessment/Plan Lines/Catheters IV C[facility]ter Type (from [facility]): Mid Line Cline in Place (from [facility]): No Assessment/Plan Chief Complaint/Hosp Course 1. Perforated viscous with possible small bowel obstruction with possible bowel inflammation. long d/w patient-she is refusing surgery despite severe conse quences up to . Patient now considering surgical intervention. We will await UGI results. -contrast study to rule out continued leak today -abx per ID -supportive -fluids -medical management -NGT to low intermittent wall suction -Strict n.p.o. 2. Hypoxic and hypercapnic respiratory failure -Supplemental oxygen, bronchodilators, as needed BiPAP -Pulmonary consult 3. NSTEMI -medical/cardiac optimization 4. Sepsis, leukopenia 2nd above -as above 5. Acute renal insufficiency improved judicious fluid management -avoid nephrotoxic agents 6. Elevated transaminases, history of hep C -Monitor 7. Chronic methadone use: -appreciate pain mgt input Thank you. Patient seen and examined in collaboration with Dr. Naveed Schumacher. Subjective 24 Hr Interval Summary Pain improved. UGI today. No fevers, chills, sob, congested cough, cp, palpitations, savage, dizziness, n/v/d/dysuria. Exam/Review of Systems Vital Signs Vitals Vital Signs Date Temp Pulse Resp B/P (MAP) Pulse Ox O2 O2 Flow FiO2 Time Delivery Rate 09/29/18 Nasal 2.0 09:40 Cannula 09/29/18 98.0 116 16 109/59 92 08:01 (76) 116 Intake and Output 09/28/18 09/28/18 09/29/18 1515:00 23:00 07:00 IntakeIntake Total 100 ml 700 ml OutputOutput Total 20 ml BalanceBalance 100 ml 680 ml Exam Free Text/Dictation Constitutional: alert, oriented (To self, Time, Situation, Location); No distress Psych: nl mood/affect; No anxiety Head: normocephalic, lacerations Eyes: nl conjunctiva, EOMI, PERRL; No icteric ENMT: nl external ears & nose, mucosa pink and moist, ngt Neck: supple, non-tender, jvd Respiratory: normal air movement; No congested cough, No labored breathing Cardiovascular: No regular rate and rhythm, No edema Gastrointestinal: soft, distended (min), tender; No rebound or guarding Musculoskeletal: nl extremities to inspection; No nl gait and stance, No joint tenderness Extremities: normal pulses Results Result Diagram: 09/29/1862009/29/18620 RAFAEL EMERY NP Sep 29, 2018 11:55
[2018-09-29 12:51] VITALS: BP 102/72; PULSE 118; RESP 18
[2018-09-29] MEDS: ONDANSETRON 4 MG INJ IV PRN (13:19)
--- NOTE | 2018-09-29 15:34 | CONS ---
Assessment/Plan Assessment/Plan Hospital Course (Demo Recall) Patient is awake looks comfortable still tachycardic, on TPN, NG tube to suction WBC 5.7 platelets 163 bands 18 BUN 6 creatinine 0.38 Abx: Merrem HEENT: Within normal limits. NECK: Supple. CHEST: Decreased breath sounds at the bases. HEART: S1 S2 ABDOMEN: She has some tenderness diffusely in the abdomen. EXTREMITIES: Without cyanosis, clubbing, or edema. Assessment: 1. Perforated viscus with possible small bowel obstruction 2. Non-ST elevation FL 3. COPD Plan: Stable, continue abx, TPN, f/u surgical rec-s Consultation Date/Type/Reason Admit Date/Time Sep 15, 2018 at 03:32 Initial Consult Date 09/24/18 Type of Consult id Requesting Provider: LEOBARDO DC Date/Time of Note DATE: 09/29/18 TIME: 15:34 Exam/Review of Systems Exam Vitals Vital Signs Date Temp Pulse Resp B/P (MAP) Pulse Ox O2 O2 Flow FiO2 Time Delivery Rate 09/29/18 98.1 118 18 102/72 100 Nasal 12:51 (82) Cannula 09/29/18 2.0 09:40 Intake and Output 09/28/18 09/28/18 09/29/18 1515:00 23:00 07:00 IntakeIntake Total 100 ml 700 ml OutputOutput Total 20 ml BalanceBalance 100 ml 680 ml Results Result Diagram: 09/29/1862009/29/18 0621 Results 24hrs Laboratory Tests Test 09/28/18 17:20 09/28/18 20:43 09/29/18 00:50 09/29/18 06:07 Bedside Glucose 110 87 81 88 Test 09/29/18 06:21 09/29/18 08:32 09/29/18 12:42 White Blood Count 5.7 Red Blood Count 2.59 L Hemoglobin 7.7 L Hematocrit 24.2 L Mean Corpuscular 93.4 Volume Mean Corpuscular 29.7 Hemoglobin Mean Corpuscular 31.8 L Hemoglobin Concent Red Cell Distribution 15.6 H Width Platelet Count 163 Mean Platelet Volume 11.0 H Immature Granulocytes 0.700 H % Neutrophils % Segmented Neutrophils 66 % (Manual) Band Neutrophils % 18 H (Manual) Lymphocytes % Lymphocytes % (Manual) 9 L Monocytes % Monocytes % (Manual) 4 Eosinophils % Eosinophils % (Manual) 2 Basophils % Basophils % (Manual) 1 Nucleated Red Blood 0.0 Cells % Immature Granulocytes 0.040 H # Neutrophils # Neutrophils # (Manual) 3.8 Band Neutrophils # 1.0 H Lymphocytes (Manual) 0.5 L Lymphocytes # Monocytes # Monocytes # (Manual) 0.2 L Eosinophils # Basophils # Basophils # (Manual) 0.0 Nucleated Red Blood Cells # Platelet Estimate NORMAL Giant Platelets 2 H Polychromasia 1+ Hypochromasia 1+ Anisocytosis 1+ Macrocytosis 1+ Ovalocytes 1+ Sodium Level 137 Potassium Level 4.2 Chloride Level 107 Carbon Dioxide Level 28 Anion Gap 2 L Blood Urea Nitrogen 6 L Creatinine 0.38 L Est Glomerular Filtrat > 60 Rate mL/min Glucose Level 115 Calcium Level 7.0 L Phosphorus Level 1.7 L Magnesium Level 1.9 Bedside Glucose 104 94 Medications Medication Current Medications IV Flush (NS 3 ml) 3 ml PER PROTOCOL IV ; Start 09/15/18 at 07:30 Ondansetron HCl (Zofran Inj) 4 mg Q6H PRN IV NAUSEA/VOMITING Last administered on 09/29/18 13:19; Admin Dose 4 MG; Start 09/15/18 at 07:30 Acetaminophen (Tylenol Tab) 650 mg Q6H PRN PO .PAIN 1-3 OR TEMP Last administered on 09/16/18 21:56; Admin Dose 650 MG; Start 09/15/18 at 07:30 Baclofen (Lioresal) 10 mg BID PO Last administered on 09/23/18 09:45; Admin Dose 10 MG; Start 09/15/18 at 09:00; Status Hold Buspirone HCl (Buspar) 10 mg BID PO Last administered on 09/23/18 11:44; Admin Dose 10 MG; Start 09/15/18 at 09:00; Status Hold Calcium Carbonate (Oyster Shell Calcium) 1.25 gm BID PO Last administered on 09/23/18 11:44; Admin Dose 1.25 GM; Start 09/15/18 at 09:00; Status Hold Clonazepam (Klonopin) 0.5 mg DAILY PRN PO ANXIETY Last administered on 09/23/18 02:04; Admin Dose 0.5 MG; Start 09/15/18 at 07:30; Status Hold Docusate Sodium (Colace) 100 mg BID PO Last administered on 09/23/18 09:43; Admin Dose 100 MG; Start 09/15/18 at 09:00; Status Hold Rifaximin (Xifaxan) 550 mg BID PO Last administered on 09/22/18 21:42; Admin Dose 550 MG; Start 09/15/18 at 09:00; Status Hold Sertraline HCl (Zoloft) 100 mg DAILY PO ; Start 09/15/18 at 09:00; Status Hold Fluticasone/ Vilanterol (Breo Ellipta 200-25 Mcg Inh) 1 inh DAILY INH Last administered on 09/29/18 08:31; Admin Dose 1 INH; Start 09/15/18 at 09:00 Albuterol/ Ipratropium (Duoneb) 3 ml Q3H RESP THERAPY PRN HHN WHEEZING AND SOB Last administered on 09/21/18 21:08; Admin Dose 3 ML; Start 09/15/18 at 08:00 Levalbuterol (Xopenex Neb) 0.63 mg Q4H RESP THERAPY HHN Last administered on 09/28/18 13:04; Admin Dose 0.63 MG; Start 09/15/18 at 17:00 Levalbuterol (Xopenex Neb) 0.63 mg Q2H RESP THERAPY PRN HHN WHEEZING AND SOB; Start 09/15/18 at 14:00 Collagenase (Santyl) 1 applic DAILY TOP Last administered on 09/29/18 08:30; Ad min Dose 1 APPLIC; Start 09/16/18 at 15:00 Apixaban (Eliquis) 5 mg BID PO Last administered on 09/23/18 09:45; Admin Dose 5 MG; Start 09/19/18 at 21:00; Status Hold Multivitamins Therapeutic (Theragran) 1 tab DAILY PO Last administered on 09/23/18 09:43; Admin Dose 1 TAB; Start 09/19/18 at 12:00 Ascorbic Acid (Vitamin C) 500 mg DAILY PO Last administered on 09/23/18 09:45; Admin Dose 500 MG; Start 09/19/18 at 12:00; Status Hold Zinc Sulfate (Zinc Sulfate) 220 mg DAILY PO Last administered on 09/22/18 08:50; Admin Dose 220 MG; Start 09/19/18 at 12:00; Status Hold Thiamine HCl (Vitamin B1) 50 mg DAILY PO Last administered on 09/23/18 09:45; Admin Dose 50 MG; Start 09/19/18 at 12:00; Status Hold Simethicone (Mylicon) 80 mg Q6H PRN PO DISTENSION/GAS/BLOATING Last administered on 09/22/18 23:50; Admin Dose 80 MG; Start 09/20/18 at 06:30 Diltiazem HCl (Cardizem Cd) 120 mg DAILY PO Last administered on 09/23/18 11:41; Admin Dose 120 MG; Start 09/20/18 at 09:00; Status Hold Zolpidem Tartrate (Ambien) 5 mg HS PRN PO INSOMNIA Last administered on 09/24/18 01:16; Admin Dose 5 MG; Start 09/21/18 at 02:00; Status Hold Phenol (Cepastat Lozenge) 1 lozenge Q1H PRN MT SORE THROAT Last administered on 09/22/18 03:32; Admin Dose 1 LOZENGE; Start 09/22/18 at 01:00 Levofloxacin (Levaquin) 500 mg DAILY@06 PO Last administered on 09/23/18 07:21; Admin Dose 500 MG; Start 09/23/18 at 06:00; Status Hold Metronidazole 100 ml @ 100 mls/hr Q8 IVPB Last administered on 09/23/18 22:03; Admin Dose 100 MLS/HR; Start 09/23/18 at 14:00; Status Hold Insulin Aspart (Novolog Insulin Pen) NOVOLOG *MILD* ALGORI... Q4 SC ; Start 09/24/18 at 01:00 Meropenem/Sodium Chloride 50 ml @ 100 mls/hr Q8H IVPB Last administered on 09/29/18 10:00; Admin Dose 100 MLS/HR; Start 09/24/18 at 02:30 Hydromorphone HCl (Dilaudid) 0.5 mg Q4H PRN IV SEVERE PAIN LEVEL 7-10 Last administered on 09/29/18 04:21; Admin Dose 0.5 MG; Start 09/24/18 at 03:00 Lorazepam (Ativan) 0.5 mg Q6H PRN IV ANXIETY Last administered on 8/1/19at 01:32; Admin Dose 0.5 MG; Start 09/24/18 at 03:00 Pantoprazole (Protonix Iv) 40 mg BID@06,18 IV Last administered on 09/29/18at 05:31; Admin Dose 40 MG; Start 09/24/18 at 18:00 Miscellaneous Information 1 ea NOTE XX ; Start 09/25/18 at 22:00 Glucose (Glutose) 15 gm Q15M PRN PO DECREASED GLUCOSE; Start 09/25/18 at 22:00 Glucose (Glutose) 22.5 gm Q15M PRN PO DECREASED GLUCOSE; Start 09/25/18 at 22:00 Dextrose (D50w Syringe) 25 ml Q15M PRN IV DECREASED GLUCOSE Last administered on 09/26/18at 21:39; Admin Dose 25 ML; Start 09/25/18 at 22:00 Dextrose (D50w Syringe) 50 ml Q15M PRN IV DECREASED GLUCOSE; Start 09/25/18 at 22:00 Glucagon (Glucagen) 1 mg Q15M PRN IM DECREASED GLUCOSE; Start 09/25/18 at 22:00 Glucose (Glutose) 15 gm Q15M PRN BUCCAL DECREASED GLUCOSE; Start 09/25/18 at 22:00 Mupirocin (Bactroban) 1 applic BID TOP Last administered on 09/29/18at 08:31; Admin Dose 1 APPLIC; Start 09/26/18 at 21:00; Stop 10/06/18 at 09:01 Potassium Chloride 20 meq/ Multivitamins 10 ml/Dextrose/ Sodium Chloride 1,020 ml @ 75 mls/hr Q24H IV Last administered on 09/29/18at 10:01; Admin Dose 75 MLS/HR; Start 09/29/18 at 04:00 Potassium Chloride/Dextrose/ Sod Cl 1,000 ml @ 75 mls/hr [id number] IV Last administered on 09/28/18at 21:44; Admin Dose 75 MLS/HR; Start 09/28/18 at 06:30 Methadone HCl (Methadone Liq) 2 mg Q4 SL Last administered on 09/29/18at 12:43; Admin Dose 2 MG; Start 09/28/18 at 09:30 SKY HOSKINS NP Sep 29, 2018 15:34
[2018-09-29 15:46] VITALS: BP 123/72; PULSE 110; RESP 16
--- NOTE | 2018-09-29 15:55 | PN ---
Date/Time of Note Date/Time of Note DATE: 09/29/18 TIME: 15:52 Assessment/Plan VTE Prophylaxis Risk [place]from [facility] [place] risk: 7 SCD applied (from [facility] [place] Yes Pharmacological prophylaxis: other Pharm contraindication: other Lines/Catheters IV C[facility]ter Type (from [facility] Mid Line Urinary Cath still in place: No Assessment/Plan Assessment/Plan 1. Perforated viscous with possible small bowel obstruction with possible bowel inflammation, declines surgery, NPO/IVF, supportive care and antibiotics, follow up with UGI 2. Respiratory failure due to COPD exacerbation, improved, neb prn 3. Mildly elevated troponin, prob hypoxia related 4. Acute kidney injury, improved 5. Normocytic anemia, chronic, follow up with H/H 6. Hypophosphatemia, phos 7. History of hepatitis C 8. Chronic methadone use: 9. MRSA of the nares, on Bactroban 10. h/o PE in 05/2018, anticoagulant on hold 11. Prophylaxis: SCDs 12. I talked with the son and gave update about conditions and plans on , 09/28/2018 and today. Questions answered Result Diagram: 09/29/18 0621 09/29/18 0621 Results 24hrs Laboratory Tests Test 09/28/18 17:20 09/28/18 20:43 09/29/18 00:50 09/29/18 06:07 Bedside Glucose 110 87 81 88 Test 09/29/18 06:21 09/29/18 08:32 09/29/18 12:42 White Blood Count 5.7 Red Blood Count 2.59 L Hemoglobin 7.7 L Hematocrit 24.2 L Mean Corpuscular 93.4 Volume Mean Corpuscular 29.7 Hemoglobin Mean Corpuscular 31.8 L Hemoglobin Concent Red Cell Distribution 15.6 H Width Platelet Count 163 Mean Platelet Volume 11.0 H Immature Granulocytes 0.700 H % Neutrophils % Segmented Neutrophils 66 % (Manual) Band Neutrophils % 18 H (Manual) Lymphocytes % Lymphocytes % (Manual) 9 L Monocytes % Monocytes % (Manual) 4 Eosinophils % Eosinophils % (Manual) 2 Basophils % Basophils % (Manual) 1 Nucleated Red Blood 0.0 Cells % Immature Granulocytes 0.040 H # Neutrophils # Neutrophils # (Manual) 3.8 Band Neutrophils # 1.0 H Lymphocytes (Manual) 0.5 L Lymphocytes # Monocytes # Monocytes # (Manual) 0.2 L Eosinophils # Basophils # Basophils # (Manual) 0.0 Nucleated Red Blood Cells # Platelet Estimate NORMAL Giant Platelets 2 H Polychromasia 1+ Hypochromasia 1+ Anisocytosis 1+ Macrocytosis 1+ Ovalocytes 1+ Sodium Level 137 Potassium Level 4.2 Chloride Level 107 Carbon Dioxide Level 28 Anion Gap 2 L Blood Urea Nitrogen 6 L Creatinine 0.38 L Est Glomerular Filtrat > 60 Rate mL/min Glucose Level 115 Calcium Level 7.0 L Phosphorus Level 1.7 L Magnesium Level 1.9 Bedside Glucose 104 94 Subjective 24 Hr Interval Summary Free Text/Dictation feels better, less pain Exam/Review of Systems Exam Vitals Vital Signs Date Temp Pulse Resp B/P (MAP) Pulse Ox O2 O2 Flow FiO2 Time Delivery Rate 09/29/18 97.8 110 16 123/72 97 Nasal 15:46 (89) Cannula 09/29/18 2.0 09:40 Intake and Output 09/28/18 09/28/18 09/29/18 1515:00 23:00 07:00 IntakeIntake Total 100 ml 700 ml OutputOutput Total 20 ml BalanceBalance 100 ml 680 ml Constitutional: alert, oriented, frail Head: normocephalic, atraumatic Eyes: nl conjunctiva, EOMI, nl lids, PERRL ENMT: nl external ears & nose, nl lips & teeth, nl nasal mucosa & septum Neck: supple, non-tender Respiratory: clear to auscultation, normal air movement; No congested cough, No crackles/rales, No diminished breath sounds, No intercostal retraction, No labored breathing, No respirations, No tactile fremitus, No wheezing, No other Cardiovascular: regular rate and rhythm, nl pulses; No bruits, No diastolic murmur, No edema, No gallop, No irregular rhythm, No jugular venous distention (JVD), No murmurs/extra sounds, No rub, No systolic murmur, No S3, No S4, No other Gastrointestinal: tender Musculoskeletal: nl extremities to inspection Extremities: normal pulses; No calf tenderness, No cyanosis, No clubbing, No edema, No pitting pedal ed sanjay, No palpable cord, No tenderness, No other 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, nl mental status, nl speech, nl strength Skin: nl turgor Results Results 24hrs Laboratory Tests Test 09/28/18 17:20 09/28/18 20:43 09/29/18 00:50 09/29/18 06:07 Bedside Glucose 110 87 81 88 Test 09/29/18 06:21 09/29/18 08:32 09/29/18 12:42 White Blood Count 5.7 Red Blood Count 2.59 L Hemoglobin 7.7 L Hematocrit 24.2 L Mean Corpuscular 93.4 Volume Mean Corpuscular 29.7 Hemoglobin Mean Corpuscular 31.8 L Hemoglobin Concent Red Cell Distribution 15.6 H Width Platelet Count 163 Mean Platelet Volume 11.0 H Immature Granulocytes 0.700 H % Neutrophils % Segmented Neutrophils 66 % (Manual) Band Neutrophils % 18 H (Manual) Lymphocytes % Lymphocytes % (Manual) 9 L Monocytes % Monocytes % (Manual) 4 Eosinophils % Eosinophils % (Manual) 2 Basophils % Basophils % (Manual) 1 Nucleated Red Blood 0.0 Cells % Immature Granulocytes 0.040 H # Neutrophils # Neutrophils # (Manual) 3.8 Band Neutrophils # 1.0 H Lymphocytes (Manual) 0.5 L Lymphocytes # Monocytes # Monocytes # (Manual) 0.2 L Eosinophils # Basophils # Basophils # (Manual) 0.0 Nucleated Red Blood Cells # Platelet Estimate NORMAL Giant Platelets 2 H Polychromasia 1+ Hypochromasia 1+ Anisocytosis 1+ Macrocytosis 1+ Ovalocytes 1+ Sodium Level 137 Potassium Level 4.2 Chloride Level 107 Carbon Dioxide Level 28 Anion Gap 2 L Blood Urea Nitrogen 6 L Creatinine 0.38 L Est Glomerular Filtrat > 60 Rate mL/min Glucose Level 115 Calcium Level 7.0 L Phosphorus Level 1.7 L Magnesium Level 1.9 Bedside Glucose 104 94 Medications Medication Current Medications IV Flush (NS 3 ml) 3 ml PER PROTOCOL IV ; Start 09/15/18 at 07:30 Ondansetron HCl (Zofran Inj) 4 mg Q6H PRN IV NAUSEA/VOMITING Last administered on 09/29/18at 13:19; Admin Dose 4 MG; Start 09/15/18 at 07:30 Acetaminophen (Tylenol Tab) 650 mg Q6H PRN PO .PAIN 1-3 OR TEMP Last administered on 09/16/18at 21:56; Admin Dose 650 MG; Start 09/15/18 at 07:30 Baclofen (Lioresal) 10 mg BID PO Last administered on 09/23/18 09:45; Admin Dose 10 MG; Start 09/15/18 at 09:00; Status Hold Buspirone HCl (Buspar) 10 mg BID PO Last administered on 09/23/18 11:44; Admin Dose 10 MG; Start 09/15/18 at 09:00; Status Hold Calcium Carbonate (Oyster Shell Calcium) 1.25 gm BID PO Last administered on 09/23/18 11:44; Admin Dose 1.25 GM; Start 09/15/18 at 09:00; Status Hold Clonazepam (Klonopin) 0.5 mg DAILY PRN PO ANXIETY Last administered on 09/23/18 02:04; Admin Dose 0.5 MG; Start 09/15/18 at 07:30; Status Hold Docusate Sodium (Colace) 100 mg BID PO Last administered on 09/23/18 09:43; Admin Dose 100 MG; Start 09/15/18 at 09:00; Status Hold Rifaximin (Xifaxan) 550 mg BID PO Last administered on 09/22/18 21:42; Admin Dose 550 MG; Start 09/15/18 at 09:00; Status Hold Sertraline HCl (Zoloft) 100 mg DAILY PO ; Start 09/15/18 at 09:00; Status Hold Fluticasone/ Vilanterol (Breo Ellipta 200-25 Mcg Inh) 1 inh DAILY INH Last administered on 09/29/18 08:31; Admin Dose 1 INH; Start 09/15/18 at 09:00 Albuterol/ Ipratropium (Duoneb) 3 ml Q3H RESP THERAPY PRN HHN WHEEZING AND SOB Last administered on 09/21/18 21:08; Admin Dose 3 ML; Start 09/15/18 at 08:00 Levalbuterol (Xopenex Neb) 0.63 mg Q4H RESP THERAPY HHN Last administered on 09/28/18 13:04; Admin Dose 0.63 MG; Start 09/15/18 at 17:00 Levalbuterol (Xopenex Neb) 0.63 mg Q2H RESP THERAPY PRN HHN WHEEZING AND SOB; Start 09/15/18 at 14:00 Collagenase (Santyl) 1 applic DAILY TOP Last administered on 09/29/18 08:30; Admin Dose 1 APPLIC; Start 09/16/18 at 15:00 Apixaban (Eliquis) 5 mg BID PO Last administered on 09/23/18 09:45; Admin Dose 5 MG; Start 09/19/18 at 21:00; Status Hold Multivitamins Therapeutic (Theragran) 1 tab DAILY PO Last administered on 09/23/18 09:43; Admin Dose 1 TAB; Start 09/19/18 at 12:00 Ascorbic Acid (Vitamin C) 500 mg DAILY PO Last administered on 09/23/18 09:45; Admin Dose 500 MG; Start 09/19/18 at 12:00; Status Hold Zinc Sulfate (Zinc Sulfate) 220 mg DAILY PO Last administered on 09/22/18 08:50; Admin Dose 220 MG; Start 09/19/18 at 12:00; Status Hold Thiamine HCl (Vitamin B1) 50 mg DAILY PO Last administered on 09/23/18 09:45; Admin Dose 50 MG; Start 09/19/18 at 12:00; Status Hold Simethicone (Mylicon) 80 mg Q6H PRN PO DISTENSION/GAS/BLOATING Last administered on 09/22/18 23:50; Admin Dose 80 MG; Start 09/20/18 at 06:30 Diltiazem HCl (Cardizem Cd) 120 mg DAILY PO Last administered on 09/23/18 11:41; Admin Dose 120 MG; Start 09/20/18 at 09:00; Status Hold Zolpidem Tartrate (Ambien) 5 mg HS PRN PO INSOMNIA Last administered on 09/24/18 01:16; Admin Dose 5 MG; Start 09/21/18 at 02:00; Status Hold Phenol (Cepastat Lozenge) 1 lozenge Q1H PRN MT SORE THROAT Last administered on 09/22/18 03:32; Admin Dose 1 LOZENGE; Start 09/22/18 at 01:00 Levofloxacin (Levaquin) 500 mg DAILY@06 PO Last administered on 09/23/18 07:21; Admin Dose 500 MG; Start 09/23/18 at 06:00; Status Hold Metronidazole 100 ml @ 100 mls/hr Q8 IVPB Last administered on 09/23/18 22:03; Admin Dose 100 MLS/HR; Start 09/23/18 at 14:00; Status Hold Insulin Aspart (Novolog Insulin Pen) NOVOLOG *MILD* ALGORI... Q4 SC ; Start 09/24/18 at 01:00 Meropenem/Sodium Chloride 50 ml @ 100 mls/hr Q8H IVPB Last administered on 09/29/18at 10:00; Admin Dose 100 MLS/HR; Start 09/24/18 at 02:30 Hydromorphone HCl (Dilaudid) 0.5 mg Q4H PRN IV SEVERE PAIN LEVEL 7-10 Last administered on 09/29/18at 04:21; Admin Dose 0.5 MG; Start 09/24/18 at 03:00 Lorazepam (Ativan) 0.5 mg Q6H PRN IV ANXIETY Last administered on 09/29/18at 01:32; Admin Dose 0.5 MG; Start 09/24/18 at 03:00 Pantoprazole (Protonix Iv) 40 mg BID@06,18 IV Last administered on 09/29/18at 05:31; Admin Dose 40 MG; Start 09/24/18 at 18:00 Miscellaneous Information 1 ea NOTE XX ; Start 09/25/18 at 22:00 Glucose (Glutose) 15 gm Q15M PRN PO DECREASED GLUCOSE; Start 09/25/18 at 22:00 Glucose (Glutose) 22.5 gm Q15M PRN PO DECREASED GLUCOSE; Start 09/25/18 at 22:00 Dextrose (D50w Syringe) 25 ml Q15M PRN IV DECREASED GLUCOSE Last administered on 09/26/18at 21:39; Admin Dose 25 ML; Start 09/25/18 at 22:00 Dextrose (D50w Syringe) 50 ml Q15M PRN IV DECREASED GLUCOSE; Start 09/25/18 at 22:00 Glucagon (Glucagen) 1 mg Q15M PRN IM DECREASED GLUCOSE; Start 09/25/18 at 22:00 Glucose (Glutose) 15 gm Q15M PRN BUCCAL DECREASED GLUCOSE; Start 09/25/18 at 22:00 Mupirocin (Bactroban) 1 applic BID TOP Last administered on 09/29/18at 08:31; Admin Dose 1 APPLIC; Start 09/26/18 at 21:00; Stop 10/06/18 at 09:01 Potassium Chloride 20 meq/ Multivitamins 10 ml/Dextrose/ Sodium Chloride 1,020 ml @ 75 mls/hr Q24H IV Last administered on 09/29/18at 10:01; Admin Dose 75 MLS/HR; Start 09/29/18 at 04:00 Potassium Chloride/Dextrose/ Sod Cl 1,000 ml @ 75 mls/hr [id number] IV Last administered on 09/28/18at 21:44; Admin Dose 75 MLS/HR; Start 09/28/18 at 06:30 Methadone HCl (Methadone Liq) 2 mg Q4 SL Last administered on 09/29/18at 12:43; Admin Dose 2 MG; Start 09/28/18 at 09:30 Potassium Phosphate 30 mm/ Sodium Chloride 260 ml @ 65 mls/hr ONCE ONCE IVPB ; Start 09/29/18 at 17:00; Stop 09/29/18 at 20:59 RALF RAMOS MD Sep 29, 2018 15:55
[2018-09-29] MEDS ORDERED: POTASSIUM PHOSPHATE 30 MM in SOD CHLORIDE 0.9% 250 ML IVPB ONE (17:00)
[2018-09-29 20:16] VITALS: BP 103/52; PULSE 105; RESP 20
[2018-09-29] MEDS ORDERED: TPN 1,000 ML IV SCH (22:53)
[2018-09-30 00:19] VITALS: BP 101/57; PULSE 120; RESP 20
[2018-09-30] MEDS: METHADONE (1 MG/ML 5 ML PO UD SYG) SL SCH ×6 (00:55→20:24)
[2018-09-30] MEDS: INSULIN ASPART [NOVOLOG] 3 ML PEN SC SCH ×6 (00:57→20:25)
[2018-09-30] MEDS: LEVALBUTEROL (NEB) 0.63 MG/3 ML AMP HHN SCH ×6 (01:00→21:00)
[2018-09-30] MEDS: DEXTROSE 50% 50 ML SYRINGE IV PRN (01:04)
[2018-09-30] MEDS: MEROPENEM 1 GM/50ML(PMX) 50 ML IVPB SCH ×3 (02:15→18:49)
[2018-09-30 05:10] VITALS: BP 109/62; PULSE 116; RESP 20
[2018-09-30] MEDS: PANTOPRAZOLE 40 MG INJ IV SCH ×2 (05:59→18:49)
[2018-09-30 07:43] VITALS: BP 118/59; PULSE 105; RESP 20
--- NOTE | 2018-09-30 08:17 | PN ---
DATE: 09/30/2018 SUBJECTIVE: The patient remains n.p.o. The patient is status post small bowel follow through with n oted evidence of obstruction. No other events noted. OBJECTIVE: VITAL SIGNS: Blood pressure is 109/62, respirations 20, pulse 116, temperature 98.0. HEENT: Head is normocephalic. NECK: Supple. HEART: Regular rate. LUNGS: Show diminished breath sounds at the base. ABDOMEN: Soft, nontender to palpation. EXTREMITIES: Negative for clubbing, cyanosis, no edema. DERMATOLOGIC: No rashes. MUSCULOSKELETAL: No joint effusion. NEUROLOGIC: No change in exam. MEDICATIONS: Have been reviewed. LABORATORY DATA: Have been reviewed. IMAGING STUDIES: Have been reviewed. ASSESSMENT AND PLAN: 1. Nonoliguric acute kidney injury. Etiology is secondary to hemodynamics. Renal function is impro tay. Continue to monitor. 2. Electrolyte abnormalities of hypomagnesemia, hypophosphatemia. Continue to monitor and replete. 3. Nutrition. The patient will be started on TPN. 4. Anemia. Monitor H and H levels. 5. Non ST elevation myocardial infarction. Continue medical management. 6. Small-bowel obstruction. Continue to monitor. Follow up with GI and general surgery. 7. Hyponatremia, improved. 8. Sepsis. The patient completed antibiotic course. 9. History of hepatitis C. Dictated By: RICHARD ORTIZ DO NR/NTS Conf#: [id number] DID#: [id number] CC: PEDRITO MUHAMMAD MD; GERALDO VARGAS MD; DENZEL HOFFMANN MD;*End*
[2018-09-30] MEDS: COLLAGENASE 5 GM (UD JAR) TOP SCH (09:31)
[2018-09-30] MEDS: MUPIROCIN 2% 22 GM OINT TOP SCH ×2 (09:32→20:25)
[2018-09-30] MEDS: MULTIVITAMINS THERAPEUTIC TAB PO SCH (09:32)
[2018-09-30] MEDS: BALSAM PERU/CASTOR OIL 60 GM TUBE TOP SCH ×2 (09:32→20:25)
[2018-09-30] MEDS: FLUTICASONE/VILANTEROL 200-25 INH DEVICE INH SCH (09:32)
[2018-09-30 11:34] VITALS: BP 113/55; PULSE 104; RESP 2
[2018-09-30] MEDS: D5-NS + KCL 20 MEQ 1,000 ML IV SCH (12:57)
[2018-09-30] MEDS ORDERED: LIDOCAINE 1% (MPF) 5 ML VIAL SC ONE (14:00)
--- NOTE | 2018-09-30 14:00 | PN ---
Date/Time of Note Date/Time of Note DATE: 09/30/18 TIME: 13:55 Assessment/Plan VTE Prophylaxis Risk score (from Ns)>0 risk: 4 SCD applied (from Ns): Yes Pharmacological prophylaxis: LMWH Lines/Catheters IV Catheter Type (from Nrs): Mid Line Urinary Cath still in place: No Assessment/Plan Assessment/Plan 1. Perforated viscous with small bowel obstruction, NPO with NG tube low suctio n, IVF, SBFT reviewed, ordered TPN on 09/29/2018, follow up with surgery 2. Respiratory failure due to COPD exacerbation, improved, neb prn 3. Mildly elevated troponin, prob hypoxia related 4. Acute kidney injury, improved 5. Normocytic anemia, chronic, follow up with H/H 6. Hypophosphatemia, phos 7. History of hepatitis C 8. Chronic methadone use: 9. MRSA of the nares, on Bactroban 10. h/o PE in 05/2018, anticoagulant on hold 11. Prophylaxis: lovenox sq Result Diagram: 09/30/18 0634 09/30/18 0634 Results 24hrs Laboratory Tests Test 09/29/18 17:38 09/29/18 20:57 09/30/18 00:56 09/30/18 01:20 Bedside Glucose 88 89 66 L 134 Test 09/30/18 01:33 09/30/18 06:09 09/30/18 06:34 09/30/18 09:28 Bedside Glucose 148 98 91 White Blood Count 4.4 #L Red Blood Count 2.91 L Hemoglobin 8.5 L Hematocrit 28.0 L Mean Corpuscular Volume 96.2 Mean Corpuscular 29.2 Hemoglobin Mean Corpuscular 30.4 L Hemoglobin Concent Red Cell Distribution 16.1 H Width Platelet Count 208 # Mean Platelet Volume 11.6 H Immature Granulocytes % 0.700 H Neutrophils % Segmented Neutrophils 68 % (Manual) Band Neutrophils % 16 H (Manual) Lymphocytes % Lymphocytes % (Manual) 10 L Monocytes % Monocytes % (Manual) 2 Eosinophils % Eosinophils % (Manual) 4 Basophils % Nucleated Red Blood 0.0 Cells % Immature Granulocytes # 0.030 Neutrophils # Neutrophils # (Manual) 3.0 Band Neutrophils # 0.7 H Lymphocytes (Manual) 0.4 L Lymphocytes # Monocytes # Monocytes # (Manual) 0.0 L Eosinophils # Basophils # Nucleated Red Blood Cells # Platelet Estimate NORMAL Polychromasia 3+ Hypochromasia 1+ Poikilocytosis 1+ Anisocytosis 2+ Macrocytosis 1+ Sodium Level 140 Potassium Level 4.3 Chloride Level 105 Carbon Dioxide Level 32 H Anion Gap 3 L Blood Urea Nitrogen 6 L Creatinine 0.48 Est Glomerular Filtrat > 60 Rate mL/min Glucose Level 113 Calcium Level 7.6 L Phosphorus Level 3.1 Magnesium Level 1.8 Total Bilirubin 0.4 Direct Bilirubin 0.00 Indirect Bilirubin 0.4 Aspartate Amino 51 H Transf (AST/SGOT) Alanine 63 Aminotransferase (ALT/SG PT) Alkaline Phosphatase 71 Total Protein 5.2 L Albumin 2.0 L Globulin 3.20 Albumin/Globulin Ratio 0.62 Prealbumin 3.1 L Triglycerides Level 158 H Test 09/30/18 13:05 Bedside Glucose 95 Subjective 24 Hr Interval Summary Free Text/Dictation abdominal pain, afebrile Exam/Review of Systems Exam Vitals Vital Signs Date Temp Pulse Resp B/P (MAP) Pulse Ox O2 O2 Flow FiO2 Time Delivery Rate 09/30/18 98.8 104 2 113/55 100 Nasal 11:34 (74) Cannula 09/30/18 2.0 08:00 Intake and Output 09/29/18 09/29/18 09/30/18 1515:00 23:00 07:00 IntakeIntake Total 50 ml BalanceBalance 50 ml Constitutional: alert, oriented, frail Head: normocephalic, atraumatic Eyes: nl conjunctiva, EOMI, nl lids, PERRL ENMT: nl external ears & nose, nl lips & teeth, nl nasal mucosa & septum Neck: supple, non-tender Respiratory: clear to auscultation, normal air movement; No congested cough, No crackles/rales, No diminished breath sounds, No intercostal retraction, No labored breathing, No respirations, No tactile fremitus, No wheezing, No other Cardiovascular: regular rate and rhythm, nl pulses; No bruits, No diastolic murmur, No edema, No gallop, No irregular rhythm, No jugular venous distention (JVD), No murmurs/extra sounds, No rub, No systolic murmur, No S3, No S4, No other Gastrointestinal: distended, tender (diffuse) Musculoskeletal: nl extremities to inspection Extremities: normal pulses; No calf tenderness, No cyanosis, No clubbing, No edema, No pitting pedal edema, No palpable cord, No tenderness, No other Neurological: IMPROVEMENT COORDINATOR II-XII intact, nl mental status, nl speech, nl strength Results Results 24hrs Laboratory Tests Test 09/29/18 17:38 09/29/18 20:57 09/30/18 00:56 09/30/18 01:20 Bedside Glucose 88 89 66 L 134 Test 09/30/18 01:33 09/30/18 06:09 09/30/18 06:34 09/30/18 09:28 Bedside Glucose 148 98 91 White Blood Count 4.4 #L Red Blood Count 2.91 L Hemoglobin 8.5 L Hematocrit 28.0 L Mean Corpuscular Volume 96.2 Mean Corpuscular 29.2 Hemoglobin Mean Corpuscular 30.4 L Hemoglobin Concent Red Cell Distribution 16.1 H Width Platelet Count 208 # Mean Platelet Volume 11.6 H Immature Granulocytes % 0.700 H Neutrophils % Segmented Neutrophils 68 % (Manual) Band Neutrophils % 16 H (Manual) Lymphocytes % Lymphocytes % (Manual) 10 L Monocytes % Monocytes % (Manual) 2 Eosinophils % Eosinophils % (Manual) 4 Basophils % Nucleated Red Blood 0.0 Cells % Immature Granulocytes # 0.030 Neutrophils # Neutrophils # (Manual) 3.0 Band Neutrophils # 0.7 H Lymphocytes (Manual) 0.4 L Lymphocytes # Monocytes # Monocytes # (Manual) 0.0 L Eosinophils # Basophils # Nucleated Red Blood Cells # Platelet Estimate NORMAL Polychromasia 3+ Hypochromasia 1+ Poikilocytosis 1+ Anisocytosis 2+ Macrocytosis 1+ Sodium Level 140 Potassium Level 4.3 Chloride Level 105 Carbon Dioxide Level 32 H Anion Gap 3 L Blood Urea Nitrogen 6 L Creatinine 0.48 Est Glomerular Filtrat > 60 Rate mL/min Glucose Level 113 Calcium Level 7.6 L Phosphorus Level 3.1 Magnesium Level 1.8 Total Bilirubin 0.4 Direct Bilirubin 0.00 Indirect Bilirubin 0.4 Aspartate Amino 51 H Transf (AST/SGOT) Alanine 63 Aminotransferase (ALT/SG PT) Alkaline Phosphatase 71 Total Protein 5.2 L Albumin 2.0 L Globulin 3.20 Albumin/Globulin Ratio 0.62 Prealbumin 3.1 L Triglycerides Level 158 H Test 09/30/18 13:05 Bedside Glucose 95 Medications Medication Current Medications IV Flush (NS 3 ml) 3 ml PER PROTOCOL IV ; Start 09/15/18 at 07:30 Ondansetron HCl (Zofran Inj) 4 mg Q6H PRN IV NAUSEA/VOMITING Last administered on 09/29/18 13:19; Admin Dose 4 MG; Start 09/15/18 at 07:30 Acetaminophen (Tylenol Tab) 650 mg Q6H PRN PO .PAIN 1-3 OR TEMP Last administered on 09/16/18 21:56; Admin Dose 650 MG; Start 09/15/18 at 07:30 Baclofen (Lioresal) 10 mg BID PO Last administered on 09/23/18 09:45; Admin Dose 10 MG; Start 09/15/18 at 09:00; Status Hold Buspirone HCl (Buspar) 10 mg BID PO Last administered on 09/23/18 11:44; Admin Dose 10 MG; Start 09/15/18 at 09:00; Status Hold Calcium Carbonate (Oyster Shell Calcium) 1.25 gm BID PO Last administered on 09/23/18 11:44; Admin Dose 1.25 GM; Start 09/15/18 at 09:00; Status Hold Clonazepam (Klonopin) 0.5 mg DAILY PRN PO ANXIETY Last administered on 09/23/18 02:04; Admin Dose 0.5 MG; Start 09/15/18 at 07:30; Status Hold Docusate Sodium (Colace) 100 mg BID PO Last administered on 09/23/18 09:43; Admin Dose 100 MG; Start 09/15/18 at 09:00; Status Hold Rifaximin (Xifaxan) 550 mg BID PO Last administered on 09/22/18 21:42; Admin Dose 550 MG; Start 09/15/18 at 09:00; Status Hold Sertraline HCl (Zoloft) 100 mg DAILY PO ; Start 09/15/18 at 09:00; Status Hold Fluticasone/ Vilanterol (Breo Ellipta 200-25 Mcg Inh) 1 inh DAILY INH Last administered on 09/30/18 09:32; Admin Dose 1 INH; Start 09/15/18 at 09:00 Albuterol/ Ipratropium (Duoneb) 3 ml Q3H RESP THERAPY PRN HHN WHEEZING AND SOB Last administered on 09/21/18 21:08; Admin Dose 3 ML; Start 09/15/18 at 08:00 Levalbuterol (Xopenex Neb) 0.63 mg Q4H RESP THERAPY HHN Last administered on 09/29/18 17:18; Admin Dose 0.63 MG; Start 09/15/18 at 17:00 Levalbuterol (Xopenex Neb) 0.63 mg Q2H RESP THERAPY PRN HHN WHEEZING AND SOB; Start 09/15/18 at 14:00 Collagenase (Santyl) 1 applic DAILY TOP Last administered on 09/30/18 09:31; Admin Dose 1 APPLIC; Start 09/16/18 at 15:00 Apixaban (Eliquis) 5 mg BID PO Last administered on 09/23/18 09:45; Admin Dose 5 MG; Start 09/19/18 at 21:00; Status Hold Multivitamins Therapeutic (Theragran) 1 tab DAILY PO Last administered on 09/30/18 09:32; Admin Dose 1 TAB; Start 09/19/18 at 12:00 Ascorbic Acid (Vitamin C) 500 mg DAILY PO Last administered on 09/23/18 09:45; Admin Dose 500 MG; Start 09/19/18 at 12:00; Status Hold Zinc Sulfate (Zinc Sulfate) 220 mg DAILY PO Last administered on 09/22/18 08:50; Admin Dose 220 MG; Start 09/19/18 at 12:00; Status Hold Thiamine HCl (Vitamin B1) 50 mg DAILY PO Last administered on 09/23/18 09:45; Admin Dose 50 MG; Start 09/19/18 at 12:00; Status Hold Simethicone (Mylicon) 80 mg Q6H PRN PO DISTENSION/GAS/BLOATING Last administered on 09/22/18 23:50; Admin Dose 80 MG; Start 09/20/18 at 06:30 Diltiazem HCl (Cardizem Cd) 120 mg DAILY PO Last administered on 09/23/18 11:41; Admin Dose 120 MG; Start 09/20/18 at 09:00; Status Hold Zolpidem Tartrate (Ambien) 5 mg HS PRN PO INSOMNIA Last administered on 09/24/18 01:16; Admin Dose 5 MG; Start 09/21/18 at 02:00; Status Hold Phenol (Cepastat Lozenge) 1 lozenge Q1H PRN MT SORE THROAT Last administered on 09/22/18 03:32; Admin Dose 1 LOZENGE; Start 09/22/18 at 01:00 Levofloxacin (Levaquin) 500 mg DAILY@06 PO Last administered on 09/23/18at 07:21; Admin Dose 500 MG; Start 09/23/18 at 06:00; Status Hold Metronidazole 100 ml @ 100 mls/hr Q8 IVPB Last administered on 09/23/18at 22:0 3; Admin Dose 100 MLS/HR; Start 09/23/18 at 14:00; Status Hold Insulin Aspart (Novolog Insulin Pen) NOVOLOG *MILD* ALGORI... Q4 SC ; Start 09/24/18 at 01:00 Meropenem/Sodium Chloride 50 ml @ 100 mls/hr Q8H IVPB Last administered on 09/30/18at 09:52; Admin Dose 100 MLS/HR; Start 09/24/18 at 02:30 Hydromorphone HCl (Dilaudid) 0.5 mg Q4H PRN IV SEVERE PAIN LEVEL 7-10 Last administered on 09/29/18 22:13; Admin Dose 0.5 MG; Start 09/24/18 at 03:00 Lorazepam (Ativan) 0.5 mg Q6H PRN IV ANXIETY Last administered on 09/29/18 01:32; Admin Dose 0.5 MG; Start 09/24/18 at 03:00 Pantoprazole (Protonix Iv) 40 mg BID@06,18 IV Last administered on 09/30/18 05:59; Admin Dose 40 MG; Start 09/24/18 at 18:00 Miscellaneous Information 1 ea NOTE XX ; Start 09/25/18 at 22:00 Glucose (Glutose) 15 gm Q15M PRN PO DECREASED GLUCOSE; Start 09/25/18 at 22:00 Glucose (Glutose) 22.5 gm Q15M PRN PO DECREASED GLUCOSE; Start 09/25/18 at 22:00 Dextrose (D50w Syringe) 25 ml Q15M PRN IV DECREASED GLUCOSE Last administered on 09/30/18 01:04; Admin Dose 25 ML; Start 09/25/18 at 22:00 Dextrose (D50w Syringe) 50 ml Q15M PRN IV DECREASED GLUCOSE; Start 09/25/18 at 22:00 Glucagon (Glucagen) 1 mg Q15M PRN IM DECREASED GLUCOSE; Start 09/25/18 at 22:00 Glucose (Glutose) 15 gm Q15M PRN BUCCAL DECREASED GLUCOSE; Start 09/25/18 at 22:00 Mupirocin (Bactroban) 1 applic BID TOP Last administered on 09/30/18at 09:32; Admin Dose 1 APPLIC; Start 09/26/18 at 21:00; Stop 10/06/18 at 09:01 Potassium Chloride 20 meq/ Multivitamins 10 ml/Dextrose/ Sodium Chloride 1,020 ml @ 75 mls/hr Q24H IV Last administered on 09/29/18at 10:01; Admin Dose 75 MLS/HR; Start 09/29/18 at 04:00 Potassium Chloride/Dextrose/ Sod Cl 1,000 ml @ 75 mls/hr [id number] IV Last administered on 09/30/18at 12:57; Admin Dose 75 MLS/HR; Start 09/28/18 at 06:30 Methadone HCl (Methadone Liq) 2 mg Q4 SL Last administered on 09/30/18at 13:11; Admin Dose 2 MG; Start 09/28/18 at 09:30 Total Parenteral Nutrition 1,000 ml @ 0 mls/hr Q0M IV ; Start 09/29/18 at 22:53; Status RALF BRO MD Sep 30, 2018 14:00
[2018-09-30 14:59] VITALS: BP 118/47; PULSE 108; RESP 20
--- NOTE | 2018-09-30 16:01 | CONS ---
Assessment/Plan Assessment/Plan Hospital Course (Demo Recall) Alert looks comfortable no fevers overnight. KUB this morning revealed multiple air-filled dilated loops of small bowel highly concerning for high-grade small bowel obstruction WBC 4.4 platelets 2 8 bands 16 BUN 6 creatinine 0.48 Abx: Merrem HEENT: Within normal limits. NECK: Supple. CHEST: Decreased breath sounds at the bases. HEART: S1 S2 ABDOMEN: Distended, bowel sounds present, hypoactive, NG tube to suction EXTREMITIES: Without cyanosis, clubbing, or edema. Assessment: 1. Perforated viscus with possible small bowel obstruction 2. Non-ST elevation PA 3. COPD Plan: Clinically unchanged, continue abx, TPN, f/u surgical rec-s Consultation Date/Type/Reason Admit Date/Time Sep 15, 2018 at 03:32 Initial Consult Date 09/24/18 Type of Consult id Requesting Provider: LEOBARDO DC Date/Time of Note DATE: 09/30/18 TIME: 16:00 Exam/Review of Systems Exam Vitals Vital Signs Date Temp Pulse Resp B/P (MAP) Pulse Ox O2 O2 Flow FiO2 Time Delivery Rate 09/30/18 98.0 108 20 118/47 100 Nasal 14:59 (70) Cannula 09/30/18 2.0 08:00 Intake and Output 09/29/18 09/29/18 09/30/18 1515:00 23:00 07:00 IntakeIntake Total 50 ml BalanceBalance 50 ml Results Result Diagram: 09/30/18 0634 09/30/18 0634 Results 24hrs Laboratory Tests Test 09/29/18 17:38 09/29/18 20:57 09/30/18 00:56 09/30/18 01:20 Bedside Glucose 88 89 66 L 134 Test 09/30/18 01:33 09/30/18 06:09 09/30/18 06:34 09/30/18 09:28 Bedside Glucose 148 98 91 White Blood Count 4.4 #L Red Blood Count 2.91 L Hemoglobin 8.5 L Hematocrit 28.0 L Mean Corpuscular Volume 96.2 Mean Corpuscular 29.2 Hemoglobin Mean Corpuscular 30.4 L Hemoglobin Concent Red Cell Distribution 16.1 H Width Platelet Count 208 # Mean Platelet Volume 11.6 H Immature Granulocytes % 0.700 H Neutrophils % Segmented Neutrophils 68 % (Manual) Band Neutrophils % 16 H (Manual) Lymphocytes % Lymphocytes % (Manual) 10 L Monocytes % Monocytes % (Manual) 2 Eosinophils % Eosinophils % (Manual) 4 Basophils % Nucleated Red Blood 0.0 Cells % Immature Granulocytes # 0.030 Neutrophils # Neutrophils # (Manual) 3.0 Band Neutrophils # 0.7 H Lymphocytes (Manual) 0.4 L Lymphocytes # Monocytes # Monocytes # (Manual) 0.0 L Eosinophils # Basophils # Nucleated Red Blood Cells # Platelet Estimate NORMAL Polychromasia 3+ Hypochromasia 1+ Poikilocytosis 1+ Anisocytosis 2+ Macrocytosis 1+ Sodium Level 140 Potassium Level 4.3 Chloride Level 105 Carbon Dioxide Level 32 H Anion Gap 3 L Blood Urea Nitrogen 6 L Creatinine 0.48 Est Glomerular Filtrat > 60 Rate mL/min Glucose Level 113 Calcium Level 7.6 L Phosphorus Level 3.1 Magnesium Level 1.8 Total Bilirubin 0.4 Direct Bilirubin 0.00 Indirect Bilirubin 0.4 Aspartate Amino 51 H Transf (AST/SGOT) Alanine 63 Aminotransferase (ALT/SG PT) Alkaline Phosphatase 71 Total Protein 5.2 L Albumin 2.0 L Globulin 3.20 Albumin/Globulin Ratio 0.62 Prealbumin 3.1 L Triglycerides Level 158 H Test 09/30/18 13:05 Bedside Glucose 95 Medications Medication Current Medications IV Flush (NS 3 ml) 3 ml PER PROTOCOL IV ; Start 09/15/18 at 07:30 Ondansetron HCl (Zofran Inj) 4 mg Q6H PRN IV NAUSEA/VOMITING Last administered on 09/29/18at 13:19; Admin Dose 4 MG; Start 09/15/18 at 07:30 Acetaminophen (Tylenol Tab) 650 mg Q6H PRN PO .PAIN 1-3 OR TEMP Last administered on 09/16/18at 21:56; Admin Dose 650 MG; Start 09/15/18 at 07:30 Baclofen (Lioresal) 10 mg BID PO Last administered on 09/23/18at 09:45; Admin Dose 10 MG; Start 09/15/18 at 09:00; Status Hold Buspirone HCl (Buspar) 10 mg BID PO Last administered on 09/23/18at 11:44; Admin Dose 10 MG; Start 09/15/18 at 09:00; Status Hold Calcium Carbonate (Oyster Shell Calcium) 1.25 gm BID PO Last administered on 09/23/18 11:44; Admin Dose 1.25 GM; Start 09/15/18 at 09:00; Status Hold Clonazepam (Klonopin) 0.5 mg DAILY PRN PO ANXIETY Last administered on 09/23/18 02:04; Admin Dose 0.5 MG; Start 09/15/18 at 07:30; Status Hold Docusate Sodium (Colace) 100 mg BID PO Last administered on 09/23/18 09:43; Admin Dose 100 MG; Start 09/15/18 at 09:00; Status Hold Rifaximin (Xifaxan) 550 mg BID PO Last administered on 09/22/18 21:42; Admin Dose 550 MG; Start 09/15/18 at 09:00; Status Hold Sertraline HCl (Zoloft) 100 mg DAILY PO ; Start 09/15/18 at 09:00; Status Hold Fluticasone/ Vilanterol (Breo Ellipta 200-25 Mcg Inh) 1 inh DAILY INH Last administered on 09/30/18 09:32; Admin Dose 1 INH; Start 09/15/18 at 09:00 Albuterol/ Ipratropium (Duoneb) 3 ml Q3H RESP THERAPY PRN HHN WHEEZING AND SOB Last administered on 09/21/18 21:08; Admin Dose 3 ML; Start 09/15/18 at 08:00 Levalbuterol (Xopenex Neb) 0.63 mg Q4H RESP THERAPY HHN Last administered on 09/29/18 17:18; Admin Dose 0.63 MG; Start 09/15/18 at 17:00 Levalbuterol (Xopenex Neb) 0.63 mg Q2H RESP THERAPY PRN HHN WHEEZING AND SOB; Start 09/15/18 at 14:00 Collagenase (Santyl) 1 applic DAILY TOP Last administered on 09/30/18 09:31; Admin Dose 1 APPLIC; Start 09/16/18 at 15:00 Apixaban (Eliquis) 5 mg BID PO Last administered on 09/23/18 09:45; Admin Dose 5 MG; Start 09/19/18 at 21:00; Status Hold Multivitamins Therapeutic (Theragran) 1 tab DAILY PO Last administered on 09/30/18 09:32; Admin Dose 1 TAB; Start 09/19/18 at 12:00 Ascorbic Acid (Vitamin C) 500 mg DAILY PO Last administered on 09/23/18 09:45; Admin Dose 500 MG; Start 09/19/18 at 12:00; Status Hold Zinc Sulfate (Zinc Sulfate) 220 mg DAILY PO Last administered on 09/22/18 08:50; Admin Dose 220 MG; Start 09/19/18 at 12:00; Status Hold Thiamine HCl (Vitamin B1) 50 mg DAILY PO Last administered on 09/23/18 09:45; Admin Dose 50 MG; Start 09/19/18 at 12:00; Status Hold Simethicone (Mylicon) 80 mg Q6H PRN PO DISTENSION/GAS/BLOATING Last administered on 09/22/18 23:50; Admin Dose 80 MG; Start 09/20/18 at 06:30 Diltiazem HCl (Cardizem Cd) 120 mg DAILY PO Last administered on 09/23/18 11:41; Admin Dose 120 MG; Start 09/20/18 at 09:00; Status Hold Zolpidem Tartrate (Ambien) 5 mg HS PRN PO INSOMNIA Last administered on 09/24/18 01:16; Admin Dose 5 MG; Start 09/21/18 at 02:00; Status Hold Phenol (Cepastat Lozenge) 1 lozenge Q1H PRN MT SORE THROAT Last administered on 09/22/18 03:32; Admin Dose 1 LOZENGE; Start 09/22/18 at 01:00 Levofloxacin (Levaquin) 500 mg DAILY@06 PO Last administered on 09/23/18 07:21; Admin Dose 500 MG; Start 09/23/18 at 06:00; Status Hold Metronidazole 100 ml @ 100 mls/hr Q8 IVPB Last administered on 09/23/18 22:03; Admin Dose 100 MLS/HR; Start 09/23/18 at 14:00; Status Hold Insulin Aspart (Novolog Insulin Pen) NOVOLOG *MILD* ALGORI... Q4 SC ; Start 09/24/18 at 01:00 Meropenem/Sodium Chloride 50 ml @ 100 mls/hr Q8H IVPB Last administered on 09/30/18 09:52; Admin Dose 100 MLS/HR; Start 09/24/18 at 02:30 Hydromorphone HCl (Dilaudid) 0.5 mg Q4H PRN IV SEVERE PAIN LEVEL 7-10 Last administered on 09/29/18at 22:13; Admin Dose 0.5 MG; Start 09/24/18 at 03:00 Lorazepam (Ativan) 0.5 mg Q6H PRN IV ANXIETY Last administered on 09/29/18at 01:32; Admin Dose 0.5 MG; Start 09/24/18 at 03:00 Pantoprazole (Protonix Iv) 40 mg BID@06,18 IV Last administered on 09/30/18at 0 5:59; Admin Dose 40 MG; Start 09/24/18 at 18:00 Miscellaneous Information 1 ea NOTE XX ; Start 09/25/18 at 22:00 Glucose (Glutose) 15 gm Q15M PRN PO DECREASED GLUCOSE; Start 09/25/18 at 22:00 Glucose (Glutose) 22.5 gm Q15M PRN PO DECREASED GLUCOSE; Start 09/25/18 at 22:00 Dextrose (D50w Syringe) 25 ml Q15M PRN IV DECREASED GLUCOSE Last administered on 09/30/18at 01:04; Admin Dose 25 ML; Start 09/25/18 at 22:00 Dextrose (D50w Syringe) 50 ml Q15M PRN IV DECREASED GLUCOSE; Start 09/25/18 at 22:00 Glucagon (Glucagen) 1 mg Q15M PRN IM DECREASED GLUCOSE; Start 09/25/18 at 22:00 Glucose (Glutose) 15 gm Q15M PRN BUCCAL DECREASED GLUCOSE; Start 09/25/18 at 22:00 Mupirocin (Bactroban) 1 applic BID TOP Last administered on 09/30/18at 09:32; Admin Dose 1 APPLIC; Start 09/26/18 at 21:00; Stop 10/06/18 at 09:01 Potassium Chloride 20 meq/ Multivitamins 10 ml/Dextrose/ Sodium Chloride 1,020 ml @ 75 mls/hr Q24H IV Last administered on 09/29/18at 10:01; Admin Dose 75 MLS/HR; Start 09/29/18 at 04:00 Potassium Chloride/Dextrose/ Sod Cl 1,000 ml @ 75 mls/hr [id number] IV Last administered on 09/30/18at 12:57; Admin Dose 75 MLS/HR; Start 09/28/18 at 06:30 Methadone HCl (Methadone Liq) 2 mg Q4 SL Last administered on 09/30/18at 13:11; Admin Dose 2 MG; Start 09/28/18 at 09:30 Total Parenteral Nutrition 1,000 ml @ 0 mls/hr Q0M IV ; Start 09/29/18 at 22:53; Status UNV Enoxaparin Sodium (Lovenox) 40 mg DAILY SC ; Start 09/30/18 at 15:00 Miscellaneous Information (*Order Clarification Bulletin) MEDICATION REQUIRES CLARIFICATI... Q12 XX ; Start 09/30/18 at 21:00 SKY BENAVIDES NP Sep 30, 2018 16:01
[2018-09-30] MEDS: ENOXAPARIN 40 MG/0.4 ML SYG SC SCH (16:12)
--- NOTE | 2018-09-30 18:05 | PN ---
Date/Time of Note Date/Time of Note DATE: 09/30/18 TIME: 17:55 Assessment/Plan Lines/Catheters IV Catheter Type (from [facility]): Mid Line Cline in Place (from [facility]): No Assessment/Plan Chief Complaint/Hosp Course 1. Perforated viscous with possible small bowel obstruction with possible bowel inflammation. long d/w patient-she is refusing surgery despite severe conse quences up to . Patient now considering surgical intervention. SBFT noted with high grade obstruction, however has bowel function and no abdominal discomfort -will continue to monitor at this time. Kub tomorrow -abx per ID -supportive -fluids -medical management -NGT to low intermittent wall suction -continue n.p.o. 2. Hypoxic and hypercapnic respiratory failure -Supplemental oxygen, bronchodilators, as needed BiPAP -Pulmonary consult 3. NSTEMI -medical/cardiac optimization 4. Sepsis, leukopenia 2nd above -as above 5. Acute renal insufficiency improved judicious fluid management -avoid nephrotoxic agents 6. Elevated transaminases, history of hep C -Monitor 7. Chronic methadone use: -appreciate pain mgt input Thank you. Patient seen and examined in collaboration with Dr. Naveed Schumacher. Subjective 24 Hr Interval Summary Continues to have bowel function without abdominal discomfort. No fevers, chills, sob, congested cough, cp, palpitations, savage, dizziness, n/v/d/dysuria. Exam/Review of Systems Vital Signs Vitals Vital Signs Date Temp Pulse Resp B/P (MAP) Pulse Ox O2 O2 Flow FiO2 Time Delivery Rate 09/30/18 2.0 16:37 09/30/18 98.0 108 20 118/47 100 Nasal 14:59 (70) Cannula Intake and Output 09/29/18 09/29/18 09/30/18 1515:00 23:00 07:00 IntakeIntake Total 50 ml BalanceBalance 50 ml Exam Free Text/Dictation Constitutional: alert, oriented (To self, Time, Situation, Location); No distress Psych: nl mood/affect; No anxiety Head: normocephalic, lacerations Eyes: nl conjunctiva, EOMI, PERRL; No icteric ENMT: nl external ears & nose, mucosa pink and moist, ngt Neck: supple, non-tender, jvd Respiratory: normal air movement; No congested cough, No labored breathing Cardiovascular: No regular rate and rhythm, No edema Gastrointestinal: soft, distended (min), tender; No rebound or guarding Musculoskeletal: nl extremities to inspection; No nl gait and stance, No joint tenderness Extremities: normal pulses Results Result Diagram: 09/30/18 0634 09/30/18 0634 RAFAEL EMERY NP Sep 30, 2018 18:05
[2018-09-30 20:00] VITALS: BP 124/60; PULSE 101; RESP 19
[2018-09-30] MEDS: HYDROmorphONE 0.5 MG/0.5 ML SYG IV PRN (21:56)
[2018-10-01] VITALS: BP 134/66; PULSE 64; RESP 19
[2018-10-01] MEDS: INSULIN ASPART [NOVOLOG] 3 ML PEN SC SCH ×7 (00:49→21:00)
[2018-10-01] MEDS: LORAZEPAM 2 MG INJ IV PRN ×3 (00:50→18:29)
[2018-10-01] MEDS: METHADONE (1 MG/ML 5 ML PO UD SYG) SL SCH ×6 (00:50→21:00)
[2018-10-01] MEDS: LEVALBUTEROL (NEB) 0.63 MG/3 ML AMP HHN SCH ×6 (01:00→21:00)
[2018-10-01] MEDS: D5-NS + KCL 20 MEQ 1,000 ML IV SCH ×2 (01:10→05:09)
[2018-10-01] MEDS: MEROPENEM 1 GM/50ML(PMX) 50 ML IVPB SCH ×3 (02:55→17:38)
[2018-10-01 04:00] VITALS: BP 162/81; PULSE 98; RESP 20
[2018-10-01] MEDS: POTASSIUM CHLORIDE IV SCH (05:09)
[2018-10-01] MEDS: MULTIVITAMINS IV SCH (05:09)
[2018-10-01] MEDS: DEXTROSE IV SCH (05:09)
[2018-10-01] MEDS: NACL IV SCH (05:09)
[2018-10-01] MEDS: PANTOPRAZOLE 40 MG INJ IV SCH ×2 (05:33→16:56)
[2018-10-01 07:34] VITALS: BP 117/65; PULSE 105; RESP 22
--- NOTE | 2018-10-01 08:43 | PN ---
DATE: 10/01/2018 SUBJECTIVE: The patient is stable. No events overnight, pending possible TPN today. OBJECTIVE: VITAL SIGNS: Blood pressure is 117/65, pulse 105, respirations 22, temperature 98.5. HEENT: Head is normocephalic. NECK: Supple. HEART: Regular rate. LUNGS: Show diminished breath sounds at the base. ABDOMEN: Soft, nontender to palpation without rebound or guarding. EXTREMITIES: Negative for clubbing, cyanosis, no edema. DERMATOLOGIC: No rashes. MUSCULOSKELETAL: No joint effusion. NEUROLOGIC: No change in exam. MEDICATIONS: Reviewed. LABORATORY DATA: Has been reviewed. IMAGING STUDIES: Have been reviewed. ASSESSMENT AND PLAN: 1. Nonoliguric acute kidney injury. Etiology secondary to hemodynamics. Renal function is improved . Continue to monitor. 2. Left-right abnormality, hypomagnesemia, phosphatemia. Continue to monitor and replete. 3. Nutrition. The patient is pending TPN. 4. Anemia. Continue to monitor hemoglobin and hematocrit levels. 5. Non-STEMI, continue medical management. 6. Small-bowel obstruction. The patient remains n.p.o. Continue to monitor. Follow up GI and gene ral surgery. 7. Sepsis. The patient is completing antibiotic course. 8. History of hepatitis C. Dictated By: RICHARD ORTIZ DO NR/NTS Conf#: [id number] DID#: [id number] CC: GERALDO VARGAS MD;*EndCC*
[2018-10-01] MEDS: MULTIVITAMINS THERAPEUTIC TAB PO SCH ×2 (09:00→09:17)
[2018-10-01] MEDS: MUPIROCIN 2% 22 GM OINT TOP SCH ×2 (09:17→21:00)
[2018-10-01] MEDS: COLLAGENASE 5 GM (UD JAR) TOP SCH (09:17)
[2018-10-01] MEDS: FLUTICASONE/VILANTEROL 200-25 INH DEVICE INH SCH (09:18)
[2018-10-01] MEDS: BALSAM PERU/CASTOR OIL 60 GM TUBE TOP SCH ×2 (09:20→21:00)
[2018-10-01] MEDS: ENOXAPARIN 40 MG/0.4 ML SYG SC SCH (09:32)
--- NOTE | 2018-10-01 10:32 | CONS ---
Consultation Date/Type/Reason Admit Date/Time Sep 15, 2018 at 03:32 Initial Consult Date 09/15/18 Type of Consult Pulmonary Patient is complaining of diarrhea as well as significant left lower quadrant abdominal pain. Denies any fever, chills, any vomiting. Shortness of breath has resolved. General exam; elderly female, laying in bed. H EENT exam; supple no JVD. No lymphadenopathy. Midline trachea. No thyromegaly. Pharynx is clear. Patient is edentulous. Chest exam; diminished but clear breath sounds. S1-S2 audible, no murmurs. Regular rhythm. Abdomen exam; soft, there is left lower quadrant tenderness , bowel sounds audible. Extremity exam; no peripheral edema. PREPPER exam; patient is awake alert exhibiting no focal deficit. Assessment and recommendations; 1. Patient admitted with COPD exacerbation with interval improvement. 2. Significant spike and leukocytosis with abdominal pain as well as diarrhea. Add Flagyl 5 mg IV every [address] of abdomen pelvis with contrast. Obtain surgical consult. Requesting Provider: LEOBARDO DC Date/Time of Note DATE: 10/01/18 TIME: 10:30 24 HR Interval Summary Free Text/Dictation Patient's condition is stable. Remains awake and alert. Denies any shortness of breath, coughing. General exam; elderly woman, awake alert, currently in no distress. On 2 L nasal cannula. H ENT exam; supple neck, no JVD. No lymphadenopathy. Midline trachea. No thyromegaly. Nasogastric tube in place. Patient has dentures in place. Chest exam; clear to auscultation. S1-S2 audible, no murmurs. Regular rhythm. Abdomen exam; soft, mildly tender. Bowel sounds are absent. Extremity exam; no peripheral edema. PREPPER exam; no focal deficit. Assessment and recommendations; 1. Patient admitted with acute bronchitis and developed bowel perforation and has refused surgery. Patient on antibiotics and on conservative measures and it appears to be improving clinically. 2. History of anemia. 3. History of DVT. 4. NSTEMI. Continue current supportive care. Exam/Review of Systems Exam Vitals Vital Signs Date Temp Pulse Resp B/P (MAP) Pulse Ox O2 O2 Flow FiO2 Time Delivery Rate 10/01/18 2.0 08:12 10/01/18 Nasal 07:36 Cannula 10/01/18 98.5 105 22 117/65 97 07:34 (82) Intake and Output 09/30/18 09/30/18 10/01/18 1515:00 23:00 07:00 IntakeIntake Total 600 ml 150 ml OutputOutput Total 2 ml 3 ml BalanceBalance 598 ml -3 ml 150 ml Results Result Diagram: 09/30/18 0634 10/01/18 0633 Results 24hrs Laboratory Tests Test 09/30/18 13:05 09/30/18 17:40 09/30/18 20:23 10/01/18 00:46 Bedside Glucose 95 77 81 74 Test 10/01/18 05:05 10/01/18 06:33 10/01/18 09:22 Bedside Glucose 93 87 Sodium Level 137 Potassium Level 4.4 Chloride Level 102 Carbon Dioxide Level 33 H Anion Gap 2 L Blood Urea Nitrogen 5 L Creatinine 0.40 L Est Glomerular Filtrat > 60 Rate mL/min Glucose Level 94 Calcium Level 7.7 L Medications Medication Current Medications IV Flush (NS 3 ml) 3 ml PER PROTOCOL IV ; Start 09/15/18 at 07:30 Ondansetron HCl (Zofran Inj) 4 mg Q6H PRN IV NAUSEA/VOMITING Last administered on 09/29/18 13:19; Admin Dose 4 MG; Start 09/15/18 at 07:30 Acetaminophen (Tylenol Tab) 650 mg Q6H PRN PO .PAIN 1-3 OR TEMP Last administered on 09/16/18 21:56; Admin Dose 650 MG; Start 09/15/18 at 07:30 Baclofen (Lioresal) 10 mg BID PO Last administered on 09/23/18 09:45; Admin Dose 10 MG; Start 09/15/18 at 09:00; Status Hold Buspirone HCl (Buspar) 10 mg BID PO Last administered on 09/23/18 11:44; Admin Dose 10 MG; Start 09/15/18 at 09:00; Status Hold Calcium Carbonate (Oyster Shell Calcium) 1.25 gm BID PO Last administered on 09/23/18 11:44; Admin Dose 1.25 GM; Start 09/15/18 at 09:00; Status Hold Clonazepam (Klonopin) 0.5 mg DAILY PRN PO ANXIETY Last administered on 02:04; Admin Dose 0.5 MG; Start 09/15/18 at 07:30; Status Hold Docusate Sodium (Colace) 100 mg BID PO Last administered on 09/23/18 09:43; Admin Dose 100 MG; Start 09/15/18 at 09:00; Status Hold Rifaximin (Xifaxan) 550 mg BID PO Last administered on 09/22/18 21:42; Admin Dose 550 MG; Start 09/15/18 at 09:00; Status Hold Sertraline HCl (Zoloft) 100 mg DAILY PO ; Start 09/15/18 at 09:00; Status Hold Fluticasone/ Vilanterol (Breo Ellipta 200-25 Mcg Inh) 1 inh DAILY INH Last administered on 10/01/18 09:18; Admin Dose 1 INH; Start 09/15/18 at 09:00 Albuterol/ Ipratropium (Duoneb) 3 ml Q3H RESP THERAPY PRN HHN WHEEZING AND SOB Last administered on 09/21/18 21:08; Admin Dose 3 ML; Start 09/15/18 at 08:00 Levalbuterol (Xopenex Neb) 0.63 mg Q4H RESP THERAPY HHN Last administered on 09/29/18 17:18; Admin Dose 0.63 MG; Start 09/15/18 at 17:00 Levalbuterol (Xopenex Neb) 0.63 mg Q2H RESP THERAPY PRN HHN WHEEZING AND SOB; Start 09/15/18 at 14:00 Collagenase (Santyl) 1 applic DAILY TOP Last administered on 10/01/18 09:17; Admin Dose 1 APPLIC; Start 09/16/18 at 15:00 Apixaban (Eliquis) 5 mg BID PO Last administered on 09/23/18 09:45; Admin Dose 5 MG; Start 09/19/18 at 21:00; Status Hold Multivitamins Therapeutic (Theragran) 1 tab DAILY PO Last administered on 09/30/18 09:32; Admin Dose 1 TAB; Start 09/19/18 at 12:00 Ascorbic Acid (Vitamin C) 500 mg DAILY PO Last administered on 09/23/18 09:45; Admin Dose 500 MG; Start 09/19/18 at 12:00; Status Hold Zinc Sulfate (Zinc Sulfate) 220 mg DAILY PO Last administered on 09/22/18 08:50; Admin Dose 220 MG; Start 09/19/18 at 12:00; Status Hold Thiamine HCl (Vitamin B1) 50 mg DAILY PO Last administered on 09/23/18 09:45; Admin Dose 50 MG; Start 09/19/18 at 12:00; Status Hold Simethicone (Mylicon) 80 mg Q6H PRN PO DISTENSION/GAS/BLOATING Last administered on 09/22/18 23:50; Admin Dose 80 MG; Start 09/20/18 at 06:30 Diltiazem HCl (Cardizem Cd) 120 mg DAILY PO Last administered on 09/23/18 11:41; Admin Dose 120 MG; Start 09/20/18 at 09:00; Status Hold Zolpidem Tartrate (Ambien) 5 mg HS PRN PO INSOMNIA Last administered on 09/24/18 01:16; Admin Dose 5 MG; Start 09/21/18 at 02:00; Status Hold Phenol (Cepastat Lozenge) 1 lozenge Q1H PRN MT SORE THROAT Last administered on 09/22/18 03:32; Admin Dose 1 LOZENGE; Start 09/22/18 at 01:00 Levofloxacin (Levaquin) 500 mg DAILY@06 PO Last administered on 09/23/18 07:21; Admin Dose 500 MG; Start 09/23/18 at 06:00; Status Hold Metronidazole 100 ml @ 100 mls/hr Q8 IVPB Last administered on 09/23/18 22:03; Admin Dose 100 MLS/HR; Start 09/23/18 at 14:00; Status Hold Insulin Aspart (Novolog Insulin Pen) NOVOLOG *MILD* ALGORI... Q4 SC ; Start 09/24/18 at 01:00 Meropenem/Sodium Chloride 50 ml @ 100 mls/hr Q8H IVPB Last administered on 10/01/18 02:55; Admin Dose 100 MLS/HR; Start 09/24/18 at 02:30 Hydromorphone HCl (Dilaudid) 0.5 mg Q4H PRN IV SEVERE PAIN LEVEL 7-10 Last administered on 09/30/18 21:56; Admin Dose 0.5 MG; Start 09/24/18 at 03:00 Lorazepam (Ativan) 0.5 mg Q6H PRN IV ANXIETY Last administered on 10/01/18at 00:50; Admin Dose 0.5 MG; Start 09/24/18 at 03:00 Pantoprazole (Protonix Iv) 40 mg BID@06,18 IV Last administered on 10/01/18at 05:33; Admin Dose 40 MG; Start 09/24/18 at 18:00 Miscellaneous Information 1 ea NOTE XX ; Start 09/25/18 at 22:00 Glucose (Glutose) 15 gm Q15M PRN PO DECREASED GLUCOSE; Start 09/25/18 at 22:00 Glucose (Glutose) 22.5 gm Q15M PRN PO DECREASED GLUCOSE; Start 09/25/18 at 22:00 Dextrose (D50w Syringe) 25 ml Q15M PRN IV DECREASED GLUCOSE Last administered on 09/30/18at 01:04; Admin Dose 25 ML; Start 09/25/18 at 22:00 Dextrose (D50w Syringe) 50 ml Q15M PRN IV DECREASED GLUCOSE; Start 09/25/18 at 22:00 Glucagon (Glucagen) 1 mg Q15M PRN IM DECREASED GLUCOSE; Start 09/25/18 at 22:00 Glucose (Glutose) 15 gm Q15M PRN BUCCAL DECREASED GLUCOSE; Start 09/25/18 at 22:00 Mupirocin (Bactroban) 1 applic BID TOP Last administered on 10/01/18at 09:17; Admin Dose 1 APPLIC; Start 09/26/18 at 21:00; Stop 10/06/18 at 09:01 Potassium Chloride 20 meq/ Multivitamins 10 ml/Dextrose/ Sodium Chloride 1,020 ml @ 75 mls/hr Q24H IV Last administered on 10/01/18at 05:09; Admin Dose 75 MLS/HR; Start 09/29/18 at 04:00 Methadone HCl (Methadone Liq) 2 mg Q4 SL Last administered on 10/01/18at 09:20; Admin Dose 2 MG; Start 09/28/18 at 09:30 Total Parenteral Nutrition 1,000 ml @ 0 mls/hr Q0M IV ; Start 09/29/18 at 22:53; Status UNV Enoxaparin Sodium (Lovenox) 40 mg DAILY SC Last administered on 10/01/18at 09:32; Admin Dose 40 MG; Start 09/30/18 at 15:00 Miscellaneous Information (*Order Clarification Bulletin) MEDICATION REQUIRES CLARIFICATI... Q12 XX ; Start 09/30/18 at 21:00 IV Flush (NS 10 ml) 10 ml PRN PRN IV IV PROTOCOL; Start 09/30/18 at 19:30 JOSÉ MIGUEL THOMSON Oct 01, 2018 10:31
[2018-10-01 11:06] VITALS: BP 122/77; PULSE 102; RESP 20
--- NOTE | 2018-10-01 13:57 | CONS ---
Assessment/Plan Assessment/Plan Hospital Course (Demo Recall) ID PROGRESS NOTE CURRENT ABX: DAY # => Merrem s/p Levaquin + Flagyl 09/30/18 0634 10/01/18 0633 24H INTERVAL SUMMARY * Patient is resting, no fevers, VSS * Chart reviewed == plan is to start clear liquids DIAGNOSTIC IMAGING * 10/01/18 ABD XR: Similar bowel gas pattern most compatible with small bowel obstruction. * Pneumoperitoneum - as seen on CT abdomen 09/23 concerning for bowel perforation, however repeat KUBs with contrast show no extravasation. MICRO * 09/23/18 (-) C.Diff * 09/18/18 Urine Cx (-) * 09/15/18 Stool Cx (-) * 09/15/18 (+)MRSA Nares * 09/15/18 BCx (-) PHYSICAL EXAMINATION: GENERAL: VSS, NAD HEENT: AT, NC, NECK: Supple, CHEST: Rise symmetrical HEART: Pulse RRR ABDOMEN: EXTREMITIES: Warm, dry SKIN: No rash, no diaphoresis == see photos ID ASSESSMENT 68 yo F w/PMHx IVDU-Heroin admit with: 1. s/p Sepsis w/fevers, leukocytosis, transient hypotension, tachycardia => RESOLVED 2. Perforated viscus with possible small bowel obstruction * Pneumoperitoneum - as seen on CT abdomen 09/23 concerning for bowel perforation, however repeat KUBs with contrast show no extravasation. 3. Non-ST elevation DE 4. COPD 5. Hx of PE JUNE 2018 6. Bilat buttock/heel decubs (-) MRSA Nares ABX ALLERGIES: SULFA INVASIVES: CURRENT ABX: DAY # => Merrem s/p Levaquin + Flagyl ID RECOMMENDATIONS/PLAN: 1. Continue current ABX 2. Patient is starting on clears -- monitor . Consultation Date/Type/Reason Admit Date/Time Sep 15, 2018 at 03:32 Initial Consult Date 09/24/18 Requesting Provider: LEOBARDO DC Date/Time of Note DATE: 10/01/18 TIME: 13:56 Exam/Review of Systems Exam Vitals Vital Signs Date Temp Pulse Resp B/P (MAP) Pulse Ox O2 O2 Flow FiO2 Time Delivery Rate 10/01/18 97.7 102 20 122/77 97 Nasal 11:06 (92) Cannula 10/01/18 2.0 08:12 Intake and Output 09/30/18 09/30/18 10/01/18 1515:00 23:00 07:00 IntakeIntake Total 600 ml 150 ml OutputOutput Total 2 ml 3 ml BalanceBalance 598 ml -3 ml 150 ml Results Result Diagram: 09/30/18 0634 10/01/18 0633 Results 24hrs Laboratory Tests Test 09/30/18 17:40 09/30/18 20:23 10/01/18 00:46 10/01/18 05:05 Bedside Glucose 77 81 74 93 Test 10/01/18 06:33 10/01/18 09:22 10/01/18 12:48 Sodium Level 137 Potassium Level 4.4 Chloride Level 102 Carbon Dioxide Level 33 H Anion Gap 2 L Blood Urea Nitrogen 5 L Creatinine 0.40 L Est Glomerular Filtrat > 60 Rate mL/min Glucose Level 94 Calcium Level 7.7 L Bedside Glucose 87 82 Medications Medication Current Medications IV Flush (NS 3 ml) 3 ml PER PROTOCOL IV ; Start 09/15/18 at 07:30 Ondansetron HCl (Zofran Inj) 4 mg Q6H PRN IV NAUSEA/VOMITING Last administered on 09/29/18 13:19; Admin Dose 4 MG; Start 09/15/18 at 07:30 Acetaminophen (Tylenol Tab) 650 mg Q6H PRN PO .PAIN 1-3 OR TEMP Last administered on 09/16/18 21:56; Admin Dose 650 MG; Start 09/15/18 at 07:30 Baclofen (Lioresal) 10 mg BID PO Last administered on 09/23/18 09:45; Admin Dose 10 MG; Start 09/15/18 at 09:00; Status Hold Buspirone HCl (Buspar) 10 mg BID PO Last administered on 09/23/18 11:44; Admin Dose 10 MG; Start 09/15/18 at 09:00; Status Hold Calcium Carbonate (Oyster Shell Calcium) 1.25 gm BID PO Last administered on 09/23/18 11:44; Admin Dose 1.25 GM; Start 09/15/18 at 09:00; Status Hold Clonazepam (Klonopin) 0.5 mg DAILY PRN PO ANXIETY Last administered on 09/23/18 02:04; Admin Dose 0.5 MG; Start 09/15/18 at 07:30; Status Hold Docusate Sodium (Colace) 100 mg BID PO Last administered on 09/23/18 09:43; Admin Dose 100 MG; Start 09/15/18 at 09:00; Status Hold Rifaximin (Xifaxan) 550 mg BID PO Last administered on 09/22/18 21:42; Admin Dose 550 MG; Start 09/15/18 at 09:00; Status Hold Sertraline HCl (Zoloft) 100 mg DAILY PO ; Start 09/15/18 at 09:00; Status Hold Fluticasone/ Vilanterol (Breo Ellipta 200-25 Mcg Inh) 1 inh DAILY INH Last administered on 10/01/18 09:18; Admin Dose 1 INH; Start 09/15/18 at 09:00 Albuterol/ Ipratropium (Duoneb) 3 ml Q3H RESP THERAPY PRN HHN WHEEZING AND SOB Last administered on 09/21/18 21:08; Admin Dose 3 ML; Start 09/15/18 at 08:00 Levalbuterol (Xopenex Neb) 0.63 mg Q4H RESP THERAPY HHN Last administered on 09/29/18 17:18; Admin Dose 0.63 MG; Start 09/15/18 at 17:00 Levalbuterol (Xopenex Neb) 0.63 mg Q2H RESP THERAPY PRN HHN WHEEZING AND SOB; Start 09/15/18 at 14:00 Collagenase (Santyl) 1 applic DAILY TOP Last administered on 10/01/18 09:17; Admin Dose 1 APPLIC; Start 09/16/18 at 15:00 Apixaban (Eliquis) 5 mg BID PO Last administered on 09/23/18 09:45; Admin Dose 5 MG; Start 09/19/18 at 21:00; Status Hold Multivitamins Therapeutic (Theragran) 1 tab DAILY PO Last administered on 09/30/18 09:32; Admin Dose 1 TAB; Start 09/19/18 at 12:00 Ascorbic Acid (Vitamin C) 500 mg DAILY PO Last administered on 09/23/18 09:45; Admin Dose 500 MG; Start 09/19/18 at 12:00; Status Hold Zinc Sulfate (Zinc Sulfate) 220 mg DAILY PO Last administered on 09/22/18 08:50; Admin Dose 220 MG; Start 09/19/18 at 12:00; Status Hold Thiamine HCl (Vitamin B1) 50 mg DAILY PO Last administered on 09/23/18 09:45; Admin Dose 50 MG; Start 09/19/18 at 12:00; Status Hold Simethicone (Mylicon) 80 mg Q6H PRN PO DISTENSION/GAS/BLOATING Last administered on 09/22/18 23:50; Admin Dose 80 MG; Start 09/20/18 at 06:30 Diltiazem HCl (Cardizem Cd) 120 mg DAILY PO Last administered on 09/23/18 11:41; Admin Dose 120 MG; Start 09/20/18 at 09:00; Status Hold Zolpidem Tartrate (Ambien) 5 mg HS PRN PO INSOMNIA Last administered on 09/24/18 01:16; Admin Dose 5 MG; Start 09/21/18 at 02:00; Status Hold Phenol (Cepastat Lozenge) 1 lozenge Q1H PRN MT SORE THROAT Last administered on 09/22/18 03:32; Admin Dose 1 LOZENGE; Start 09/22/18 at 01:00 Levofloxacin (Levaquin) 500 mg DAILY@06 PO Last administered on 09/23/18 07:21; Admin Dose 500 MG; Start 09/23/18 at 06:00; Status Hold Metronidazole 100 ml @ 100 mls/hr Q8 IVPB Last administered on 09/23/18 22:03; Admin Dose 100 MLS/HR; Start 09/23/18 at 14:00; Status Hold Insulin Aspart (Novolog Insulin Pen) NOVOLOG *MILD* ALGORI... Q4 SC ; Start 09/24/18 at 01:00 Meropenem/Sodium Chloride 50 ml @ 100 mls/hr Q8H IVPB Last administered on 10/01/18 10:47; Admin Dose 100 MLS/HR; Start 09/24/18 at 02:30 Hydromorphone HCl (Dilaudid) 0.5 mg Q4H PRN IV SEVERE PAIN LEVEL 7-10 Last administered on 09/30/18 21:56; Admin Dose 0.5 MG; Start 09/24/18 at 03:00 Lorazepam (Ativan) 0.5 mg Q6H PRN IV ANXIETY Last administered on 10/01/18at 11:11; Admin Dose 0.5 MG; Start 09/24/18 at 03:00 Pantoprazole (Protonix Iv) 40 mg BID@06,18 IV Last administered on 10/01/18at 05:33; Admin Dose 40 MG; Start 09/24/18 at 18:00 Miscellaneous Information 1 ea NOTE XX ; Start 09/25/18 at 22:00 Glucose (Glutose) 15 gm Q15M PRN PO DECREASED GLUCOSE; Start 09/25/18 at 22:00 Glucose (Glutose) 22.5 gm Q15M PRN PO DECREASED GLUCOSE; Start 09/25/18 at 22:00 Dextrose (D50w Syringe) 25 ml Q15M PRN IV DECREASED GLUCOSE Last administered on 09/30/18at 01:04; Admin Dose 25 ML; Start 09/25/18 at 22:00 Dextrose (D50w Syringe) 50 ml Q15M PRN IV DECREASED GLUCOSE; Start 09/25/18 at 22:00 Glucagon (Glucagen) 1 mg Q15M PRN IM DECREASED GLUCOSE; Start 09/25/18 at 22:00 Glucose (Glutose) 15 gm Q15M PRN BUCCAL DECREASED GLUCOSE; Start 09/25/18 at 22:00 Mupirocin (Bactroban) 1 applic BID TOP Last administered on 10/01/18at 09:17; Admin Dose 1 APPLIC; Start 09/26/18 at 21:00; Stop 10/06/18 at 09:01 Potassium Chloride 20 meq/ Multivitamins 10 ml/Dextrose/ Sodium Chloride 1,020 ml @ 75 mls/hr Q24H IV Last administered on 10/01/18at 05:09; Admin Dose 75 MLS/HR; Start 09/29/18 at 04:00 Methadone HCl (Methadone Liq) 2 mg Q4 SL Last administered on 10/01/18at 12:51; Admin Dose 2 MG; Start 09/28/18 at 09:30 Total Parenteral Nutrition 1,000 ml @ 0 mls/hr Q0M IV ; Start 09/29/18 at 22:53; Status UNV Enoxaparin Sodium (Lovenox) 40 mg DAILY SC Last administered on 10/01/18at 09:32; Admin Dose 40 MG; Start 09/30/18 at 15:00 Miscellaneous Information (*Order Clarification Bulletin) MEDICATION REQUIRES CLARIFICATI... Q12 XX ; Start 09/30/18 at 21:00 IV Flush (NS 10 ml) 10 ml PRN PRN IV IV PROTOCOL; Start 09/30/18 at 19:30 DIEGO ENRIQUEZ NP Oct 01, 2018 13:57
--- NOTE | 2018-10-01 14:16 | PN ---
Date/Time of Note Date/Time of Note DATE: 10/01/18 TIME: 14:12 Assessment/Plan VTE Prophylaxis Risk score (from Ns)>0 risk: 9 SCD applied (from [facility] [place]): Yes Pharmacological prophylaxis: NA/contraindicated Pharm contraindication: surgical contra Lines/Catheters IV Catheter Type (from [facility]): PICC Line Central line still needed: Yes Urinary Cath still in place: No Assessment/Plan Assessment/Plan 1. Pneumoperitoneum - as seen on CT abdomen 09/23 concerning for bowel perforation, however repeat KUBs with contrast show no extravasation. 2. Ileus - Dilated loops of small bowel on repeat KUBs. However clinically patient is not obstructed, passing flatus and stool. I will start clear liquid diet today. 3. Respiratory failure due to COPD exacerbation, improved, neb prn 4. Acute kidney injury, improved 5. Normocytic anemia, chronic, follow up with H/H 6. Hypophosphatemia, phos 7. History of hepatitis C 8. Chronic methadone use: 9. MRSA of the nares, on Bactroban 10. h/o PE in 05/2018, anticoagulant on hold 11. Prophylaxis: lovenox sq Result Diagram: 09/30/18 0634 10/01/18 0633 Subjective 24 Hr Interval Summary Free Text/Dictation No acute overnight events. The patient has an NGt to low intermittent suction, bilious output. She is very hungry and thirsty. Passing stool and flatus. No abdominal pain. Exam/Review of Systems Exam Vitals Vital Signs Date Temp Pulse Resp B/P (MAP) Pulse Ox O2 O2 Flow FiO2 Time Delivery Rate 10/01/18 97.7 102 20 122/77 97 Nasal 11:06 (92) Cannula 10/01/18 2.0 08:12 Intake and Output 09/30/18 09/30/18 10/01/18 1515:00 23:00 07:00 IntakeIntake Total 600 ml 150 ml OutputOutput Total 2 ml 3 ml BalanceBalance 598 ml -3 ml 150 ml Exam Constitutional: alert, oriented, frail Head: normocephalic, atraumatic Eyes: nl conjunctiva, EOMI, nl lids, PERRL ENMT: nl external ears & nose, nl lips & teeth, nl nasal mucosa & septum Neck: supple, non-tender Respiratory: clear to auscultation, normal air movement; No congested cough, No crackles/rales, No diminished breath sounds, No intercostal retraction, No labored breathing, No respirations, No tactile fremitus, No wheezing, No other Cardiovascular: regular rate and rhythm, nl pulses; No bruits, No diastolic murmur, No edema, No gallop, No irregular rhythm, No jugular venous distention (JVD), No murmurs/extra sounds, No rub, No systolic murmur, No S3, No S4, No other Gastrointestinal: Soft, distended, slightly tender throughout, tympanic. Musculoskeletal: nl extremities to inspection Extremities: normal pulses; No calf tenderness, No cyanosis, No clubbing, No edema, No pitting pedal edema, No palpable cord, No tenderness, No other Results Results 24hrs Laboratory Tests Test 09/30/18 17:40 09/30/18 20:23 10/01/18 00:46 10/01/18 05:05 Bedside Glucose 77 81 74 93 Test 10/01/18 06:33 10/01/18 09:22 10/01/18 12:48 Sodium Level 137 Potassium Level 4.4 Chloride Level 102 Carbon Dioxide Level 33 H Anion Gap 2 L Blood Urea Nitrogen 5 L Creatinine 0.40 L Est Glomerular Filtrat > 60 Rate mL/min Glucose Level 94 Calcium Level 7.7 L Bedside Glucose 87 82 Medications Medication Current Medications IV Flush (NS 3 ml) 3 ml PER PROTOCOL IV ; Start 09/15/18 at 07:30 Ondansetron HCl (Zofran Inj) 4 mg Q6H PRN IV NAUSEA/VOMITING Last administered on 09/29/18at 13:19; Admin Dose 4 MG; Start 09/15/18 at 07:30 Acetaminophen (Tylenol Tab) 650 mg Q6H PRN PO .PAIN 1-3 OR TEMP Last administered on 09/16/18 21:56; Admin Dose 650 MG; Start 09/15/18 at 07:30 Baclofen (Lioresal) 10 mg BID PO Last administered on 09/23/18 09:45; Admin Dose 10 MG; Start 09/15/18 at 09:00; Status Hold Buspirone HCl (Buspar) 10 mg BID PO Last administered on 09/23/18 11:44; Admin Dose 10 MG; Start 09/15/18 at 09:00; Status Hold Calcium Carbonate (Oyster Shell Calcium) 1.25 gm BID PO Last administered on 09/23/18 11:44; Admin Dose 1.25 GM; Start 09/15/18 at 09:00; Status Hold Clonazepam (Klonopin) 0.5 mg DAILY PRN PO ANXIETY Last administered on 09/23/18 02:04; Admin Dose 0.5 MG; Start 09/15/18 at 07:30; Status Hold Docusate Sodium (Colace) 100 mg BID PO Last administered on 09/23/18 09:43; Admin Dose 100 MG; Start 09/15/18 at 09:00; Status Hold Rifaximin (Xifaxan) 550 mg BID PO Last administered on 09/22/18 21:42; Admin Dose 550 MG; Start 09/15/18 at 09:00; Status Hold Sertraline HCl (Zoloft) 100 mg DAILY PO ; Start 09/15/18 at 09:00; Status Hold Fluticasone/ Vilanterol (Breo Ellipta 200-25 Mcg Inh) 1 inh DAILY INH Last administered on 10/01/18 09:18; Admin Dose 1 INH; Start 09/15/18 at 09:00 Albuterol/ Ipratropium (Duoneb) 3 ml Q3H RESP THERAPY PRN HHN WHEEZING AND SOB Last administered on 09/21/18 21:08; Admin Dose 3 ML; Start 09/15/18 at 08:00 Levalbuterol (Xopenex Neb) 0.63 mg Q4H RESP THERAPY HHN Last administered on 09/29/18 17:18; Admin Dose 0.63 MG; Start 09/15/18 at 17:00 Levalbuterol (Xopenex Neb) 0.63 mg Q2H RESP THERAPY PRN HHN WHEEZING AND SOB; Start 09/15/18 at 14:00 Collagenase (Santyl) 1 applic DAILY TOP Last administered on 10/01/18 09:17; Admin Dose 1 APPLIC; Start 09/16/18 at 15:00 Apixaban (Eliquis) 5 mg BID PO Last administered on 09/23/18 09:45; Admin Dose 5 MG; Start 09/19/18 at 21:00; Status Hold Multivitamins Therapeutic (Theragran) 1 tab DAILY PO Last administered on 09/30/18 09:32; Admin Dose 1 TAB; Start 09/19/18 at 12:00 Ascorbic Acid (Vitamin C) 500 mg DAILY PO Last administered on 09/23/18 09:45; Admin Dose 500 MG; Start 09/19/18 at 12:00; Status Hold Zinc Sulfate (Zinc Sulfate) 220 mg DAILY PO Last administered on 09/22/18 08:50; Admin Dose 220 MG; Start 09/19/18 at 12:00; Status Hold Thiamine HCl (Vitamin B1) 50 mg DAILY PO Last administered on 09/23/18 09:45; Admin Dose 50 MG; Start 09/19/18 at 12:00; Status Hold Simethicone (Mylicon) 80 mg Q6H PRN PO DISTENSION/GAS/BLOATING Last administered on 09/22/18 23:50; Admin Dose 80 MG; Start 09/20/18 at 06:30 Diltiazem HCl (Cardizem Cd) 120 mg DAILY PO Last administered on 09/23/18 11:41; Admin Dose 120 MG; Start 09/20/18 at 09:00; Status Hold Zolpidem Tartrate (Ambien) 5 mg HS PRN PO INSOMNIA Last administered on 09/24/18 01:16; Admin Dose 5 MG; Start 09/21/18 at 02:00; Status Hold Phenol (Cepastat Lozenge) 1 lozenge Q1H PRN MT SORE THROAT Last administered on 09/22/18 03:32; Admin Dose 1 LOZENGE; Start 09/22/18 at 01:00 Levofloxacin (Levaquin) 500 mg DAILY@06 PO Last administered on 09/23/18 07:21; Admin Dose 500 MG; Start 09/23/18 at 06:00; Status Hold Metronidazole 100 ml @ 100 mls/hr Q8 IVPB Last administered on 09/23/18 22:03; Admin Dose 100 MLS/HR; Start 09/23/18 at 14:00; Status Hold Insulin Aspart (Novolog Insulin Pen) NOVOLOG *MILD* ALGORI... Q4 SC ; Start 09/24/18 at 01:00 Meropenem/Sodium Chloride 50 ml @ 100 mls/hr Q8H IVPB Last administered on 10/01/18at 10:47; Admin Dose 100 MLS/HR; Start 09/24/18 at 02:30 Hydromorphone HCl (Dilaudid) 0.5 mg Q4H PRN IV SEVERE PAIN LEVEL 7-10 Last ad ministered on 09/30/18at 21:56; Admin Dose 0.5 MG; Start 09/24/18 at 03:00 Lorazepam (Ativan) 0.5 mg Q6H PRN IV ANXIETY Last administered on 10/01/18at 11:11; Admin Dose 0.5 MG; Start 09/24/18 at 03:00 Pantoprazole (Protonix Iv) 40 mg BID@06,18 IV Last administered on 10/01/18 05:33; Admin Dose 40 MG; Start 09/24/18 at 18:00 Miscellaneous Information 1 ea NOTE XX ; Start 09/25/18 at 22:00 Glucose (Glutose) 15 gm Q15M PRN PO DECREASED GLUCOSE; Start 09/25/18 at 22:00 Glucose (Glutose) 22.5 gm Q15M PRN PO DECREASED GLUCOSE; Start 09/25/18 at 22:00 Dextrose (D50w Syringe) 25 ml Q15M PRN IV DECREASED GLUCOSE Last administered on 09/30/18at 01:04; Admin Dose 25 ML; Start 09/25/18 at 22:00 Dextrose (D50w Syringe) 50 ml Q15M PRN IV DECREASED GLUCOSE; Start 09/25/18 at 22:00 Glucagon (Glucagen) 1 mg Q15M PRN IM DECREASED GLUCOSE; Start 09/25/18 at 22:00 Glucose (Glutose) 15 gm Q15M PRN BUCCAL DECREASED GLUCOSE; Start 09/25/18 at 22:00 Mupirocin (Bactroban) 1 applic BID TOP Last administered on 10/01/18 09:17; Admin Dose 1 APPLIC; Start 09/26/18 at 21:00; Stop 10/06/18 at 09:01 Potassium Chloride 20 meq/ Multivitamins 10 ml/Dextrose/ Sodium Chloride 1,020 ml @ 75 mls/hr Q24H IV Last administered on 10/01/18 05:09; Admin Dose 75 MLS/HR; Start 09/29/18 at 04:00 Methadone HCl (Methadone Liq) 2 mg Q4 SL Last administered on 10/01/18at 12:51; Admin Dose 2 MG; Start 09/28/18 at 09:30 Total Parenteral Nutrition 1,000 ml @ 0 mls/hr Q0M IV ; Start 09/29/18 at 22:53; Status UNV Enoxaparin Sodium (Lovenox) 40 mg DAILY SC Last administered on 10/01/18at 09:32; Admin Dose 40 MG; Start 09/30/18 at 15:00 Miscellaneous Information (*Order Clarification Bulletin) MEDICATION REQUIRES CLARIFICATI... Q12 XX ; Start 09/30/18 at 21:00 IV Flush (NS 10 ml) 10 ml PRN PRN IV IV PROTOCOL; Start 09/30/18 at 19:30 PRASHANT HILTON MD Oct 01, 2018 14:16
[2018-10-01 15:05] VITALS: BP 115/56; PULSE 105; RESP 18
[2018-10-01] MEDS: TPN 1,000 ML IV SCH (17:31)
[2018-10-01 19:31] VITALS: BP 127/73; PULSE 107; RESP 20
--- NOTE | 2018-10-01 23:57 | PN ---
Date/Time of Note Date/Time of Note DATE: 10/01/18 TIME: 23:56 Assessment/Plan Lines/Catheters IV Catheter Type (from [facility]): PICC Line Cline in Place (from [facility]): No Assessment/Plan Chief Complaint/Hosp Course 1. Perforated viscous with possible small bowel obstruction with possible bowel inflammation. long d/w patient-she is refusing surgery despite severe cons equences up to . SBFT noted with high grade obstruction, however has bowel function and no abdominal discomfort. Patient now considering surgical intervention but wants to wait a few more days. -will continue to monitor at this time. -kub/labs in am -abx per ID -supportive -fluids -medical management -NGT to low intermittent wall suction 2. Hypoxic and hypercapnic respiratory failure -Supplemental oxygen, bronchodilators, as needed BiPAP -Pulmonary 3. NSTEMI -medical/cardiac optimization 4. Sepsis, leukopenia 2nd above -as above 5. Acute renal insufficiency improved judicious fluid management -avoid nephrotoxic agents 6. Elevated transaminases, history of hep C -Monitor 7. Chronic methadone use: -appreciate pain mgt input Thank you, Subjective 24 Hr Interval Summary Patient started on clears by medical team. Continues to have bowel function (flatus and liquids stools) without abdominal discomfort. No fevers, chills, sob, congested cough, cp, palpitations, savage, dizziness, nausea, vomiting, dysuria. I advised she may need surgery but she wants to wait for a few days. Exam/Review of Systems Vital Signs Vitals Vital Signs Date Temp Pulse Resp B/P (MAP) Pulse Ox O2 O2 Flow FiO2 Time Delivery Rate 10/02/18 2.0 00:58 10/01/18 Nasal 20:23 Cannula 10/01/18 98.4 107 20 127/73 95 19:31 (91) Intake and Output 10/01/18 10/01/18 10/02/18 1515:00 23:00 07:00 IntakeIntake Total 520 ml BalanceBalance 520 ml Exam Free Text/Dictation Constitutional: alert, oriented (To self, Time, Situation, Location); No distress Psych: nl mood/affect; No anxiety Head: normocephalic, lacerations Eyes: nl conjunctiva, EOMI, PERRL; No icteric ENMT: nl external ears & nose, mucosa pink and moist, ngt Neck: supple, non-tender, jvd Respiratory: normal air movement; No congested cough, No labored breathing Cardiovascular: No regular rate and rhythm, No edema Gastrointestinal: soft, distended (min), NT; No rebound, guarding, rigidity Musculoskeletal: nl extremities to inspection; No nl gait and stance, No joint tenderness Extremities: normal pulses Results Result Diagram: 09/30/18 0634 10/01/18 0633 JESSIKA OREILLY MD Oct 01, 2018 23:57
[2018-10-02] VITALS: BP 124/79; PULSE 99; RESP 18
[2018-10-02] MEDS: LEVALBUTEROL (NEB) 0.63 MG/3 ML AMP HHN SCH ×7 (00:58→21:00)
[2018-10-02] MEDS: MEROPENEM 1 GM/50ML(PMX) 50 ML IVPB SCH ×3 (02:30→17:52)
[2018-10-02] MEDS: METHADONE (1 MG/ML 5 ML PO UD SYG) SL SCH ×6 (02:33→21:00)
[2018-10-02 04:02] VITALS: BP 112/54; PULSE 122; RESP 20
[2018-10-02] MEDS: LORAZEPAM 2 MG INJ IV PRN (05:11)
[2018-10-02] MEDS: PANTOPRAZOLE 40 MG INJ IV SCH ×2 (05:12→17:52)
[2018-10-02 08:00] VITALS: BP 100/60; PULSE 110; RESP 18
--- NOTE | 2018-10-02 08:21 | PN ---
DATE: 10/02/2018 SUBJECTIVE: The patient is stable, no events overnight. No fevers, chills, nausea, vomiting. OBJECTIVE: VITAL SIGNS: Blood pressure 112/54, respirations 20, pulse 122, temperature 98.4. HEENT: Head is normocephalic. NECK: Supple. HEART: Regular rate. LUNGS: Show diminished breath sounds at the base. ABDOMEN: Soft, nontender to palpation without rebound or guarding. EXTREMITIES: Negative for clubbing, cyanosis, no edema. DERMATOLOGIC: No rashes. MUSCULOSKELETAL: No joint effusion. NEUROLOGIC: No change in exam. MEDICATIONS: Reviewed. LABORATORY DATA: Has been reviewed. IMAGING STUDIES: Have been reviewed. ASSESSMENT AND PLAN: 1. Nonoliguric acute kidney injury. Etiology is secondary to hemodynamics. Renal function is impro tay. Continue to monitor. 2. Hypomagnesemia, hypophosphatemia. Continue to monitor and replete as needed. 3. Nutrition. Continue TPN. 4. Anemia. Monitor hemoglobin and hematocrit levels. 5. Non-ST elevation myocardial infarction. Continue medical management. 6. Small bowel obstruction. The patient is currently n.p.o. Follow up with general surgery. 7. Sepsis. The patient has completed antibiotic course. 8. History of hepatitis C. Dictated By: RICHARD ORTIZ DO NR/NTS Conf#: [id number] DID#: [id number] CC: GERALDO VARGAS MD;*EndCC*
[2018-10-02] MEDS: INSULIN ASPART [NOVOLOG] 3 ML PEN SC SCH ×4 (08:37→21:00)
[2018-10-02] MEDS: BALSAM PERU/CASTOR OIL 60 GM TUBE TOP SCH ×2 (08:58→21:00)
[2018-10-02] MEDS: MUPIROCIN 2% 22 GM OINT TOP SCH ×2 (08:58→21:00)
[2018-10-02] MEDS: FLUTICASONE/VILANTEROL 200-25 INH DEVICE INH SCH (08:58)
[2018-10-02] MEDS: COLLAGENASE 5 GM (UD JAR) TOP SCH (08:59)
[2018-10-02] MEDS: ENOXAPARIN 40 MG/0.4 ML SYG SC SCH (09:02)
[2018-10-02] MEDS: TPN 1,000 ML IV SCH (10:56)
--- NOTE | 2018-10-02 10:57 | PN ---
Date/Time of Note Date/Time of Note DATE: 10/02/18 TIME: 10:52 Assessment/Plan VTE Prophylaxis Risk score (from Ns)>0 risk: 8 SCD applied (from [facility]): Yes Pharmacological prophylaxis: LMWH Lines/Catheters IV Catheter Type (from [facility]rs[facility]): PICC Line Central line still needed: Yes Urinary Cath still in place: No Assessment/Plan Assessment/Plan 1. Pneumoperitoneum - as seen on CT abdomen 09/23 concerning for bowel perforation, however repeat KUBs with contrast show no extravasation. Dr. Schumacher's note says surgery is needed but unclear exactly what for. I have been trying to reach him but unsuccessfully. 2. Ileus - Dilated loops of small bowel on repeat KUBs. However clinically patient is not obstructed, passing flatus and stool. Tolerating clear liquids, slowly advancing diet. 3. Respiratory failure due to COPD exacerbation, improved, neb prn 4. Acute kidney injury, improved 5. Normocytic anemia, chronic, follow up with H/H 6. Hypophosphatemia, phos 7. History of hepatitis C 8. Chronic methadone use: 9. MRSA of the nares, on Bactroban 10. h/o PE in 05/2018, anticoagulant on hold 11. Prophylaxis: lovenox sq Result Diagram: 10/02/18 0831 10/02/18 0645 Subjective 24 Hr Interval Summary Free Text/Dictation Tolerated clear liquid diet. Passing flatus and stool. Abdominal pain improving. She was given oatmeal and scrambled eggs this morning for some reason. She choked on the eggs and was in acute distress tachy to 140s. Nurse called me to request a breathing treatment. Exam/Review of Systems Exam Vitals Vital Signs Date Temp Pulse Resp B/P (MAP) Pulse Ox O2 O2 Flow FiO2 Time Delivery Rate 10/02/18 140 24 96 Nasal 6.0 08:40 Cannula 10/02/18 98.4 112/54 04:02 (73) Intake and Output 10/01/18 10/01/18 10/02/18 1515:00 23:00 07:00 IntakeIntake Total 520 ml 250 ml BalanceBalance 520 ml 250 ml Exam Constitutional: alert, oriented, frail Head: normocephalic, atraumatic Eyes: nl conjunctiva, EOMI, nl lids, PERRL ENMT: nl external ears & nose, nl lips & teeth, nl nasal mucosa & septum Neck: supple, non-tender Respiratory: clear to auscultation, normal air movement; No congested cough, No crackles/rales, No diminished breath sounds, No intercostal retraction, No labored breathing, No respirations, No tactile fremitus, No wheezing, No other Cardiovascular: regular rate and rhythm, nl pulses; No bruits, No diastolic murmur, No edema, No gallop, No irregular rhythm, No jugular venous distention (JVD), No murmurs/extra sounds, No rub, No systolic murmur, No S3, No S4, No other Gastrointestinal: Soft, distended, slightly tender throughout, tympanic. Musculoskeletal: nl extremities to inspection Extremities: normal pulses; No calf tenderness, No cyanosis, No clubbing, No edema, No pitting pedal edema, No palpable cord, No tenderness, No other Results Results 24hrs Laboratory Tests Test 10/01/18 12:48 10/01/18 16:45 10/01/18 20:58 10/02/18 06:45 Bedside Glucose 82 78 115 Sodium Level 133 L Potassium Level 3.7 Chloride Level 97 Carbon Dioxide Level 36 H Anion Gap 0 L Blood Urea Nitrogen 10 Creatinine 0.47 Est Glomerular Filtrat > 60 Rate mL/min Glucose Level 142 # Calcium Level 7.6 L Phosphorus Level 2.3 L Magnesium Level 1.5 L Test 10/02/18 08:27 10/02/18 08:31 Bedside Glucose 157 White Blood Count 10.3 # Red Blood Count 2.73 L Hemoglobin 8.0 L Hematocrit 26.4 L Mean Corpuscular Volume 96.7 Mean Corpuscular 29.3 Hemoglobin Mean Corpuscular 30.3 L Hemoglobin Concent Red Cell Distribution 15.4 H Width Platelet Count 206 Mean Platelet Volume 11.1 H Immature Granulocytes % 0.500 H Neutrophils % Segmented Neutrophils 50 % (Manual) Band Neutrophils % 32 H (Manual) Lymphocytes % Lymphocytes % (Manual) 3 L Reactive Lymphocytes 5 H % (Manual) Monocytes % Monocytes % (Manual) 4 Eosinophils % Eosinophils % (Manual) 5 Basophils % Basophils % (Manual) 1 Nucleated Red Blood 0.0 Cells % Immature Granulocytes # 0.050 H Neutrophils # Neutrophils # (Manual) 5.5 Band Neutrophils # 3.2 H Lymphocytes (Manual) 0.3 L Lymphocytes # Reactive Lymphocytes # 0.5 H Monocytes # Monocytes # (Manual) 0.4 Eosinophils # Basophils # Basophils # (Manual) 0.1 H Nucleated Red Blood Cells # Platelet Estimate NORMAL Giant Platelets 3 H Polychromasia 1+ Poikilocytosis 1+ Anisocytosis 1+ Macrocytosis 1+ Target Cells 1+ Medications Medication Current Medications IV Flush (NS 3 ml) 3 ml PER PROTOCOL IV ; Start 09/15/18 at 07:30 Ondansetron HCl (Zofran Inj) 4 mg Q6H PRN IV NAUSEA/VOMITING Last administered on 09/29/18 13:19; Admin Dose 4 MG; Start 09/15/18 at 07:30 Acetaminophen (Tylenol Tab) 650 mg Q6H PRN PO .PAIN 1-3 OR TEMP Last administered on 09/16/18 21:56; Admin Dose 650 MG; Start 09/15/18 at 07:30 Baclofen (Lioresal) 10 mg BID PO Last administered on 09/23/18 09:45; Admin Dose 10 MG; Start 09/15/18 at 09:00; Status Hold Buspirone HCl (Buspar) 10 mg BID PO Last administered on 09/23/18 11:44; Admin Dose 10 MG; Start 09/15/18 at 09:00; Status Hold Calcium Carbonate (Oyster Shell Calcium) 1.25 gm BID PO Last administered on 09/23/18 11:44; Admin Dose 1.25 GM; Start 09/15/18 at 09:00; Status Hold Clonazepam (Klonopin) 0.5 mg DAILY PRN PO ANXIETY Last administered on 09/23/18 02:04; Admin Dose 0.5 MG; Start 09/15/18 at 07:30; Status Hold Docusate Sodium (Colace) 100 mg BID PO Last administered on 09/23/18 09:43; Admin Dose 100 MG; Start 09/15/18 at 09:00; Status Hold Rifaximin (Xifaxan) 550 mg BID PO Last administered on 09/22/18 21:42; Admin Dose 550 MG; Start 09/15/18 at 09:00; Status Hold Sertraline HCl (Zoloft) 100 mg DAILY PO ; Start 09/15/18 at 09:00; Status Hold Fluticasone/ Vilanterol (Breo Ellipta 200-25 Mcg Inh) 1 inh DAILY INH Last administered on 10/02/18 08:58; Admin Dose 1 INH; Start 09/15/18 at 09:00 Albuterol/ Ipratropium (Duoneb) 3 ml Q3H RESP THERAPY PRN HHN WHEEZING AND SOB Last administered on 09/21/18 21:08; Admin Dose 3 ML; Start 09/15/18 at 08:00 Levalbuterol (Xopenex Neb) 0.63 mg Q4H RESP THERAPY HHN Last administered on 10/02/18 08:28; Admin Dose 0.63 MG; Start 09/15/18 at 17:00 Levalbuterol (Xopenex Neb) 0.63 mg Q2H RESP THERAPY PRN HHN WHEEZING AND SOB; Start 09/15/18 at 14:00 Collagenase (Santyl) 1 applic DAILY TOP Last administered on 10/02/18 08:59; Admin Dose 1 APPLIC; Start 09/16/18 at 15:00 Apixaban (Eliquis) 5 mg BID PO Last administered on 09/23/18 09:45; Admin Dose 5 MG; Start 09/19/18 at 21:00; Status Hold Multivitamins Therapeutic (Theragran) 1 tab DAILY PO Last administered on 09/30/18 09:32; Admin Dose 1 TAB; Start 09/19/18 at 12:00 Ascorbic Acid (Vitamin C) 500 mg DAILY PO Last administered on 09/23/18 09:45; Admin Dose 500 MG; Start 09/19/18 at 12:00; Status Hold Zinc Sulfate (Zinc Sulfate) 220 mg DAILY PO Last administered on 09/22/18 08:50; Admin Dose 220 MG; Start 09/19/18 at 12:00; Status Hold Thiamine HCl (Vitamin B1) 50 mg DAILY PO Last administered on 09/23/18 09:45; Admin Dose 50 MG; Start 09/19/18 at 12:00; Status Hold Simethicone (Mylicon) 80 mg Q6H PRN PO DISTENSION/GAS/BLOATING Last administered on 09/22/18 23:50; Admin Dose 80 MG; Start 09/20/18 at 06:30 Diltiazem HCl (Cardizem Cd) 120 mg DAILY PO Last administered on 09/23/18 11:41; Admin Dose 120 MG; Start 09/20/18 at 09:00; Status Hold Zolpidem Tartrate (Ambien) 5 mg HS PRN PO INSOMNIA Last administered on 09/24/18 01:16; Admin Dose 5 MG; Start 09/21/18 at 02:00; Status Hold Phenol (Cepastat Lozenge) 1 lozenge Q1H PRN MT SORE THROAT Last administered on 09/22/18 03:32; Admin Dose 1 LOZENGE; Start 09/22/18 at 01:00 Levofloxacin (Levaquin) 500 mg DAILY@06 PO Last administered on 09/23/18 07:21; Admin Dose 500 MG; Start 09/23/18 at 06:00; Status Hold Metronidazole 100 ml @ 100 mls/hr Q8 IVPB Last administered on 09/23/18 22:03; Admin Dose 100 MLS/HR; Start 09/23/18 at 14:00; Status Hold Meropenem/Sodium Chloride 50 ml @ 100 mls/hr Q8H IVPB Last administered on 10/02/18 02:30; Admin Dose 100 MLS/HR; Start 09/24/18 at 02:30 Hydromorphone HCl (Dilaudid) 0.5 mg Q4H PRN IV SEVERE PAIN LEVEL 7-10 Last administered on 09/30/18 21:56; Admin Dose 0.5 MG; Start 09/24/18 at 03:00 Lorazepam (Ativan) 0.5 mg Q6H PRN IV ANXIETY Last administered on 10/02/18 05:11; Admin Dose 0.5 MG; Start 09/24/18 at 03:00 Pantoprazole (Protonix Iv) 40 mg BID@06,18 IV Last administered on 10/02/18 05:12; Admin Dose 40 MG; Start 09/24/18 at 18:00 Miscellaneous Information 1 ea NOTE XX ; Start 09/25/18 at 22:00 Glucose (Glutose) 15 gm Q15M PRN PO DECREASED GLUCOSE; Start 09/25/18 at 22:00 Glucose (Glutose) 22.5 gm Q15M PRN PO DECREASED GLUCOSE; Start 09/25/18 at 22:00 Dextrose (D50w Syringe) 25 ml Q15M PRN IV DECREASED GLUCOSE Last administered on 09/30/18at 01:04; Admin Dose 25 ML; Start 09/25/18 at 22:00 Dextrose (D50w Syringe) 50 ml Q15M PRN IV DECREASED GLUCOSE; Start 09/25/18 at 22:00 Glucagon (Glucagen) 1 mg Q15M PRN IM DECREASED GLUCOSE; Start 09/25/18 at 22:00 Glucose (Glutose) 15 gm Q15M PRN BUCCAL DECREASED GLUCOSE; Start 09/25/18 at 22:00 Mupirocin (Bactroban) 1 applic BID TOP Last administered on 10/02/18 08:58; A dmin Dose 1 APPLIC; Start 09/26/18 at 21:00; Stop 10/06/18 at 09:01 Methadone HCl (Methadone Liq) 2 mg Q4 SL Last administered on 10/02/18 08:57; Admin Dose 2 MG; Start 09/28/18 at 09:30 Enoxaparin Sodium (Lovenox) 40 mg DAILY SC Last administered on 10/02/18at 09:02; Admin Dose 40 MG; Start 09/30/18 at 15:00 Miscellaneous Information (*Order Clarification Bulletin) MEDICATION REQUIRES CLARIFICATI... Q12 XX ; Start 09/30/18 at 21:00 IV Flush (NS 10 ml) 10 ml PRN PRN IV IV PROTOCOL; Start 09/30/18 at 19:30 Total Parenteral Nutrition 1,000 ml @ 60 mls/hr [id number] IV Last administered on 10/01/18at 17:31; Admin Dose 60 MLS/HR; Start 10/01/18 at 18:00 Insulin Aspart (Novolog Insulin Pen) NOVOLOG *MILD* ALGORITHM WITH MEALS BEDTIME SC Last administered on 10/02/18 08:37; Admin Dose 1 UNIT; Start 10/01/18 at 21:00 PRASHANT HILTON MD Oct 02, 2018 10:57
[2018-10-02] MEDS: MULTIVITAMINS THERAPEUTIC TAB PO SCH (11:01)
[2018-10-02] MEDS ORDERED: MAGNESIUM SULFATE 2 GM/50 ML 50 ML IVPB ONE (11:30)
[2018-10-02 11:40] VITALS: BP 99/50; PULSE 112; RESP 16
[2018-10-02] MEDS ORDERED: POTASSIUM PHOSPHATE 7.5 MM in SOD CHLORIDE 0.9% 250 ML IV ONE (14:30)
[2018-10-02] MEDS ORDERED: IOHEXOL 300MG/ML 150 ML BTL ONE (14:43)
[2018-10-02] MEDS ORDERED: SOD CHLORIDE 0.9% 100 ML ONE (14:43)
[2018-10-02 14:59] VITALS: BP 122/61; PULSE 71; RESP 16
--- NOTE | 2018-10-02 15:30 | CONS ---
Consult Date/Type/Reason Admit Date/Time Sep 15, 2018 at 03:32 Initial Consult Date 09/24/18 Type of Consultation: Pulm Requesting Provider: LEOBARDO DC Date/Time of Note DATE: 10/02/18 TIME: 15:27 Subjective Events noted. Intermittently requiring higher oxygen concentrations. Objective Vitals Vital Signs Date Temp Pulse Resp B/P (MAP) Pulse Ox O2 O2 Flow FiO2 Time Delivery Rate 10/02/18 98.2 71 16 122/61 93 CPAP 14:59 (81) 10/02/18 6.0 08:40 Intake and Output 10/01/18 10/01/18 10/02/18 1515:00 23:00 07:00 IntakeIntake Total 570 ml 250 ml BalanceBalance 570 ml 250 ml Exam NECK: Supple. JVD is not elevated. CARDIAC: S1, S2, no added sounds or murmurs. CHEST: Diminished air entry bilaterally. ABDOMEN: Distended, mild TTP No guarding or rebound. EXTREMITIES: No cyanosis, clubbing, 1+ edema. NEUROLOGIC: Grossly intact Results/Medications Result Diagram: 10/02/18 0831 10/02/18 0645 Results 24 hrs Laboratory Tests Test 10/01/18 16:45 10/01/18 20:58 10/02/18 06:45 10/02/18 08:27 Bedside Glucose 78 115 157 Sodium Level 133 L Potassium Level 3.7 Chloride Level 97 Carbon Dioxide Level 36 H Anion Gap 0 L Blood Urea Nitrogen 10 Creatinine 0.47 Est Glomerular Filtrat > 60 Rate mL/min Glucose Level 142 # Calcium Level 7.6 L Phosphorus Level 2.3 L Magnesium Level 1.5 L Test 10/02/18 08:31 White Blood Count 10.3 # Red Blood Count 2.73 L Hemoglobin 8.0 L Hematocrit 26.4 L Mean Corpuscular Volume 96.7 Mean Corpuscular 29.3 Hemoglobin Mean Corpuscular 30.3 L Hemoglobin Concent Red Cell Distribution 15.4 H Width Platelet Count 206 Mean Platelet Volume 11.1 H Immature Granulocytes % 0.500 H Neutrophils % Segmented Neutrophils 50 % (Manual) Band Neutrophils % 32 H (Manual) Lymphocytes % Lymphocytes % (Manual) 3 L Reactive Lymphocytes 5 H % (Manual) Monocytes % Monocytes % (Manual) 4 Eosinophils % Eosinophils % (Manual) 5 Basophils % Basophils % (Manual) 1 Nucleated Red Blood 0.0 Cells % Immature Granulocytes # 0.050 H Neutrophils # Neutrophils # (Manual) 5.5 Band Neutrophils # 3.2 H Lymphocytes (Manual) 0.3 L Lymphocytes # Reactive Lymphocytes # 0.5 H Monocytes # Monocytes # (Manual) 0.4 Eosinophils # Basophils # Basophils # (Manual) 0.1 H Nucleated Red Blood Cells # Platelet Estimate NORMAL Giant Platelets 3 H Polychromasia 1+ Poikilocytosis 1+ Anisocytosis 1+ Macrocytosis 1+ Target Cells 1+ Home Meds Active Scripts Pantoprazole* (Pantoprazole*) 40 Mg Tablet.dr, 40 MG PO DAILY@06 for 14 Days, #14 Prov:RICKIE DALTON MD 06/12/18 Apixaban* (Eliquis*) 5 Mg Tablet, 10 MG PO BID for 30 Days, #60 TAB 10 mg twice daily for 5 days, then 5 mg twice daily Prov:RICKIE DALTON MD 06/12/18 Methadone Hcl* (Methadone*) 5 Mg/5 Ml Solution, 68 MG PO DAILY for 30 Days, ML Prov:STU ORTEZ 04/14/18 Salmeterol Xinaf/Fluticasone* (Advair*) 250-50 Diskus Inhaler, 1 INH INHALATION BID for 30 Days, #1 INHALER Prov:ZHANG WARE NP 02/28/16 Albuterol Sulfate* (Proair HFA*) 8.5 Gm Hfa.aer.ad, 2 PUFF INH Q6 for SHORTNESS OF BREATH for 14 Days, #1 INHALER Prov:ZHANG WARE NP 02/28/16 Reported Medications Sertraline Hcl* (Sertraline Hcl*) 25 Mg Tablet, 25 MG PO DAILY, #30 TAB 09/15/18 Buspirone Hcl* (Buspirone Hcl*) 10 Mg Tab, 10 MG PO BID, TAB 09/15/18 Clonazepam* (Clonazepam*) 0.5 Mg Tablet, 0.5 MG PO DAILY PRN for ANXIETY, TAB 09/15/18 Ipratropium-Albuterol (Ipratropium-Albuterol) 0.5-3 Mg/3 Ml Ampul.neb, 3 ML INHALATION Q6 PRN for WHEEZING AND SOB, #30 VIAL 09/15/18 Carvedilol* (Carvedilol*) 6.25 Mg Tablet, 6.25 MG PO BID, #60 TAB 09/15/18 Cholecalciferol (Vitamin D3) (VITAMIN D-3) 2,000 Unit Capsule, 2000 U PO DAILY for 30 Days 04/30/18 Amlodipine Besylate* (Amlodipine Besylate*) 5 Mg Tablet, 5 MG PO DAILY for 30 Days, #30 04/30/18 Baclofen* (Baclofen*) 10 Mg Tablet, 10 MG PO BID 04/30/18 Calcium Carbonate ([id number]-Xbc-075) 500 Mg Tablet, 500 MG PO BID, TAB 04/30/18 Medications Current Medications IV Flush (NS 3 ml) 3 ml PER PROTOCOL IV ; Start 09/15/18 at 07:30 Ondansetron HCl (Zofran Inj) 4 mg Q6H PRN IV NAUSEA/VOMITING Last administered on 09/29/18at 13:19; Admin Dose 4 MG; Start 09/15/18 at 07:30 Acetaminophen (Tylenol Tab) 650 mg Q6H PRN PO .PAIN 1-3 OR TEMP Last administ ered on 09/16/18 21:56; Admin Dose 650 MG; Start 09/15/18 at 07:30 Baclofen (Lioresal) 10 mg BID PO Last administered on 09/23/18 09:45; Admin Dose 10 MG; Start 09/15/18 at 09:00; Status Hold Buspirone HCl (Buspar) 10 mg BID PO Last administered on 09/23/18 11:44; Admin Dose 10 MG; Start 09/15/18 at 09:00; Status Hold Calcium Carbonate (Oyster Shell Calcium) 1.25 gm BID PO Last administered on 09/23/18 11:44; Admin Dose 1.25 GM; Start 09/15/18 at 09:00; Status Hold Clonazepam (Klonopin) 0.5 mg DAILY PRN PO ANXIETY Last administered on 09/23/18 02:04; Admin Dose 0.5 MG; Start 09/15/18 at 07:30; Status Hold Docusate Sodium (Colace) 100 mg BID PO Last administered on 09/23/18 09:43; Admin Dose 100 MG; Start 09/15/18 at 09:00; Status Hold Rifaximin (Xifaxan) 550 mg BID PO Last administered on 09/22/18 21:42; Admin Dose 550 MG; Start 09/15/18 at 09:00; Status Hold Sertraline HCl (Zoloft) 100 mg DAILY PO ; Start 09/15/18 at 09:00; Status Hold Fluticasone/ Vilanterol (Breo Ellipta 200-25 Mcg Inh) 1 inh DAILY INH Last administered on 10/02/18 08:58; Admin Dose 1 INH; Start 09/15/18 at 09:00 Albuterol/ Ipratropium (Duoneb) 3 ml Q3H RESP THERAPY PRN HHN WHEEZING AND SOB Last administered on 09/21/18 21:08; Admin Dose 3 ML; Start 09/15/18 at 08:00 Levalbuterol (Xopenex Neb) 0.63 mg Q4H RESP THERAPY HHN Last administered on 10/02/18 08:28; Admin Dose 0.63 MG; Start 09/15/18 at 17:00 Levalbuterol (Xopenex Neb) 0.63 mg Q2H RESP THERAPY PRN HHN WHEEZING AND SOB; Start 09/15/18 at 14:00 Collagenase (Santyl) 1 applic DAILY TOP Last administered on 10/02/18 08:59; Admin Dose 1 APPLIC; Start 09/16/18 at 15:00 Apixaban (Eliquis) 5 mg BID PO Last administered on 09/23/18 09:45; Admin Dose 5 MG; Start 09/19/18 at 21:00; Status Hold Multivitamins Therapeutic (Theragran) 1 tab DAILY PO Last administered on 10/02/18 11:01; Admin Dose 1 TAB; Start 09/19/18 at 12:00 Ascorbic Acid (Vitamin C) 500 mg DAILY PO Last administered on 09/23/18 09:45; Admin Dose 500 MG; Start 09/19/18 at 12:00; Status Hold Zinc Sulfate (Zinc Sulfate) 220 mg DAILY PO Last administered on 09/22/18 08:50; Admin Dose 220 MG; Start 09/19/18 at 12:00; Status Hold Thiamine HCl (Vitamin B1) 50 mg DAILY PO Last administered on 09/23/18 09:45; Admin Dose 50 MG; Start 09/19/18 at 12:00; Status Hold Simethicone (Mylicon) 80 mg Q6H PRN PO DISTENSION/GAS/BLOATING Last administered on 09/22/18 23:50; Admin Dose 80 MG; Start 09/20/18 at 06:30 Diltiazem HCl (Cardizem Cd) 120 mg DAILY PO Last administered on 09/23/18 11:41; Admin Dose 120 MG; Start 09/20/18 at 09:00; Status Hold Zolpidem Tartrate (Ambien) 5 mg HS PRN PO INSOMNIA Last administered on 09/24/18 01:16; Admin Dose 5 MG; Start 09/21/18 at 02:00; Status Hold Phenol (Cepastat Lozenge) 1 lozenge Q1H PRN MT SORE THROAT Last administered on 09/22/18 03:32; Admin Dose 1 LOZENGE; Start 09/22/18 at 01:00 Levofloxacin (Levaquin) 500 mg DAILY@06 PO Last administered on 09/23/18 07:21; Admin Dose 500 MG; Start 09/23/18 at 06:00; Status Hold Metronidazole 100 ml @ 100 mls/hr Q8 IVPB Last administered on 09/23/18 22:03; Admin Dose 100 MLS/HR; Start 09/23/18 at 14:00; Status Hold Meropenem/Sodium Chloride 50 ml @ 100 mls/hr Q8H IVPB Last administered on 10/02/18 11:05; Admin Dose 100 MLS/HR; Start 09/24/18 at 02:30 Hydromorphone HCl (Dilaudid) 0.5 mg Q4H PRN IV SEVERE PAIN LEVEL 7-10 Last administered on 09/30/18 21:56; Admin Dose 0.5 MG; Start 09/24/18 at 03:00 Lorazepam (Ativan) 0.5 mg Q6H PRN IV ANXIETY Last administered on 10/02/18 05:11; Admin Dose 0.5 MG; Start 09/24/18 at 03:00 Pantoprazole (Protonix Iv) 40 mg BID@06,18 IV Last administered on 10/02/18 05:12; Admin Dose 40 MG; Start 09/24/18 at 18:00 Miscellaneous Information 1 ea NOTE XX ; Start 09/25/18 at 22:00 Glucose (Glutose) 15 gm Q15M PRN PO DECREASED GLUCOSE; Start 09/25/18 at 22:00 Glucose (Glutose) 22.5 gm Q15M PRN PO DECREASED GLUCOSE; Start 09/25/18 at 22:00 Dextrose (D50w Syringe) 25 ml Q15M PRN IV DECREASED GLUCOSE Last administered on 09/30/18at 01:04; Admin Dose 25 ML; Start 09/25/18 at 22:00 Dextrose (D50w Syringe) 50 ml Q15M PRN IV DECREASED GLUCOSE; Start 09/25/18 at 22:00 Glucagon (Glucagen) 1 mg Q15M PRN IM DECREASED GLUCOSE; Start 09/25/18 at 22:00 Glucose (Glutose) 15 gm Q15M PRN BUCCAL DECREASED GLUCOSE; Start 09/25/18 at 22:00 Mupirocin (Bactroban) 1 applic BID TOP Last administered on 10/02/18at 08:58; Admin Dose 1 APPLIC; Start 09/26/18 at 21:00; Stop 10/06/18 at 09:01 Methadone HCl (Methadone Liq) 2 mg Q4 SL Last administered on 10/02/18at 13:00; Admin Dose 2 MG; Start 09/28/18 at 09:30 Enoxaparin Sodium (Lovenox) 40 mg DAILY SC Last administered on 10/02/18at 09:02; Admin Dose 40 MG; Start 09/30/18 at 15:00 Miscellaneous Information (*Order Clarification Bulletin) MEDICATION REQUIRES CLARIFICATI... Q12 XX ; Start 09/30/18 at 21:00 IV Flush (NS 10 ml) 10 ml PRN PRN IV IV PROTOCOL; Start 09/30/18 at 19:30 Total Parenteral Nutrition 1,000 ml @ 60 mls/hr [id number] IV Last administered on 10/02/18at 10:56; Admin Dose 60 MLS/HR; Start 10/01/18 at 18:00 Insulin Aspart (Novolog Insulin Pen) NOVOLOG *MILD* ALGORITHM WITH MEALS BEDTIME SC Last administered on 10/02/18at 08:37; Admin Dose 1 UNIT; Start 10/01/18 at 21:00 Potassium Phosphate 7.5 mm/ Sodium Chloride 252.5 ml @ 63.125 mls/ hr ONCE ONCE IV ; Start 10/02/18 at 14:30; Stop 10/02/18 at 18:29 Assessment/Plan Assessment/Plan (Daily) IMP 1. Possible perforated PUD and high grade bowel obstruction 2. Chronic obstructive pulmonary disease with acute exacerbation. 3. Type NSTEMI 4. s/p Dehydration and renal insufficiency. 5. History of venous thromboembolism--anticoagulation on hold RECS: 1. Await surgical intervention tomorrow 2. Post-op BD's and incentive spirometry 3. Obtain coags LEONORA GLASGOW MD Oct 02, 2018 15:30
--- NOTE | 2018-10-02 20:02 | CONS ---
Assessment/Plan Assessment/Plan Hospital Course (Demo Recall) ID PROGRESS NOTE CURRENT ABX: DAY # => Merrem s/p Levaquin + Flagyl 10/02/18 0831 10/02/18 0645 24H INTERVAL SUMMARY * Patient is no NPO for finding on repeat CT today == concern high grade obstruction on imaging, and also severe bandemia. Plan for exploratory laparotomy today or tomorrow. * Patient is currently sleeping -- pain meds onboard. No fevers, mild tachycardia HR 111 * Progressive PNA on CT w/increased need for oxygen requirements * CHART REVIEWED DIAGNOSTIC IMAGING * 10/02/18 CT CHEST/ABD/PELVISIMPRESSION: * 1. Findings as described above most compatible with at least moderate grade partial small bowel obstruction. [place] of enteric tube is seen in the region of the pylorus with the distal tip in the second portion of the duodenum. * 2. Previously noted pneumoperitoneum not visualized on the current exam. However there is interval increase in intraperitoneal free fluid with suggestion of peritoneal thickening reflecting peritonitis. No intraperitoneal gas to suggest infection by CT, though fluid analysis is suggested as clinically warranted to differentiate between infectious and other inflammatory causes. * 3. Inflammatory changes involving the distal colon as well compatible with a nonspecific colitis. * 4. Large amount of secretions in the airways as above, as well as diffuse bronchial wall thickening compatible with airway inflammation. * 5. New compared to the 06/07/2018 exam is area of consolidation in the superior segment of the right lower lobe, and less so in the right middle lobe, suggestive of evolving changes of pneumonia. Recommend follow-up to resolution to exclude underlying nodules/neoplasm. * 6. Emphysematous changes are seen in the bilateral lungs with subpleural scarring and apparent honeycombing in the posterior right lung base. * 7. As compared to the 09/23/1928 CT examination, there is interval dilatation of the gallbladder, common duct, and less so pancreatic ducts. The ducts appear to taper normally distally in this may be secondary to the aforementioned changes in the small bowel, however recommend correlation with liver function exam. * 8. Endometrium measures 7 mm. Please correlate for potential postmenopausa l bleeding and advise pelvic ultrasound correlation for further evaluation as clinically warranted. * 10/02/18 ABD XR: Gaseous dilation of small bowel loops through the abdomen, l ikely reflecting persistent small bowel obstruction. * 10/01/18 ABD XR: Similar bowel gas pattern most compatible with small bowel obstruction. * Pneumoperitoneum - as seen on CT abdomen 09/23 concerning for bowel perforation, however repeat KUBs with contrast show no extravasation. MICRO * 09/23/18 (-) C.Diff * 09/18/18 Urine Cx (-) * 09/15/18 Stool Cx (-) * 09/15/18 (+)MRSA Nares * 09/15/18 BCx (-) PHYSICAL EXAMINATION: GENERAL: VSS, NAD HEENT: AT, NC, NECK: Supple, CHEST: Rise symmetrical HEART: Pulse RRR ABDOMEN: EXTREMITIES: Warm, dry SKIN: No rash, no diaphoresis == see photos ID ASSESSMENT 68 yo F w/PMHx IVDU-Heroin admit with: 1. s/p Sepsis w/fevers, leukocytosis, transient hypotension, tachycardia => RESOLVED 2. Perforated viscus with possible small bowel obstruction * Pneumoperitoneum - as seen on CT abdomen 09/23 concerning for bowel perforation, however repeat KUBs with contrast show no extravasation. * 10/02/18 CT == possible high-grade SBO 3. Nonspecific colitis per CT: Inflammatory changes involving the distal colon as well compatible with a nonspecific colitis. 4. Non-ST elevation [place] 5. COPD-> Emphysema 6. HCAP == increasing need for oxygen requirements * 10/02/18 CT New compared to the 06/07/2018 exam is area of consolidation in the superior segment of the right lower lobe, and less so in the right middle lobe, suggestive of evolving changes of pneumonia. Recommend follow-up to resolution to exclude underlying nodules/neoplasm. 7. Hx of PE JUNE 2018 8. Anemia 9. Bilat buttock/heel decubs (-) MRSA Nares ABX ALLERGIES: SULFA INVASIVES: CURRENT ABX: DAY # => Merrem s/p Levaquin + Flagyl ID RECOMMENDATIONS/PLAN: 1. Continue current ABX 2. Per notes plan is for Ex-lap for possible high-grade SBO 3. Worsening pulmonary function due to PNA . Consultation Date/Type/Reason Admit Date/Time Sep 15, 2018 at 03:32 Initial Consult Date 09/24/18 Requesting Provider: LEOBARDO DC Date/Time of Note DATE: 10/02/18 TIME: 19:53 Exam/Review of Systems Exam Vitals Vital Signs Date Temp Pulse Resp B/P (MAP) Pulse Ox O2 O2 Flow FiO2 Time Delivery Rate 10/02/18 98.2 71 16 122/61 93 CPAP 14:59 (81) 10/02/18 6.0 08:40 Intake and Output 10/01/18 10/01/18 10/02/18 1515:00 23:00 07:00 IntakeIntake Total 570 ml 250 ml BalanceBalance 570 ml 250 ml Results Result Diagram: 10/02/18 0831 10/02/18 0645 Results 24hrs Laboratory Tests Test 10/01/18 20:58 10/02/18 06:45 10/02/18 08:27 10/02/18 08:31 Bedside Glucose 115 157 Sodium Level 133 L Potassium Level 3.7 Chloride Level 97 Carbon Dioxide Level 36 H Anion Gap 0 L Blood Urea Nitrogen 10 Creatinine 0.47 Est Glomerular Filtrat > 60 Rate mL/min Glucose Level 142 # Calcium Level 7.6 L Phosphorus Level 2.3 L Magnesium Level 1.5 L White Blood Count 10.3 # Red Blood Count 2.73 L Hemoglobin 8.0 L Hematocrit 26.4 L Mean Corpuscular Volume 96.7 Mean Corpuscular 29.3 Hemoglobin Mean Corpuscular 30.3 L Hemoglobin Concent Red Cell Distribution 15.4 H Width Platelet Count 206 Mean Platelet Volume 11.1 H Immature Granulocytes % 0.500 H Neutrophils % Segmented Neutrophils 50 % (Manual) Band Neutrophils % 32 H (Manual) Lymphocytes % Lymphocytes % (Manual) 3 L Reactive Lymphocytes 5 H % (Manual) Monocytes % Monocytes % (Manual) 4 Eosinophils % Eosinophils % (Manual) 5 Basophils % Basophils % (Manual) 1 Nucleated Red Blood 0.0 Cells % Immature Granulocytes # 0.050 H Neutrophils # Neutrophils # (Manual) 5.5 Band Neutrophils # 3.2 H Lymphocytes (Manual) 0.3 L Lymphocytes # Reactive Lymphocytes # 0.5 H Monocytes # Monocytes # (Manual) 0.4 Eosinophils # Basophils # Basophils # (Manual) 0.1 H Nucleated Red Blood Cells # Platelet Estimate NORMAL Giant Platelets 3 H Polychromasia 1+ Poikilocytosis 1+ Anisocytosis 1+ Macrocytosis 1+ Target Cells 1+ Test 10/02/18 18:39 Bedside Glucose 82 Medications Medication Current Medications IV Flush (NS 3 ml) 3 ml PER PROTOCOL IV ; Start 09/15/18 at 07:30 Ondansetron HCl (Zofran Inj) 4 mg Q6H PRN IV NAUSEA/VOMITING Last administered on 09/29/18 13:19; Admin Dose 4 MG; Start 09/15/18 at 07:30 Acetaminophen (Tylenol Tab) 650 mg Q6H PRN PO .PAIN 1-3 OR TEMP Last administered on 09/16/18 21:56; Admin Dose 650 MG; Start 09/15/18 at 07:30 Baclofen (Lioresal) 10 mg BID PO Last administered on 09/23/18 09:45; Admin Dose 10 MG; Start 09/15/18 at 09:00; Status Hold Buspirone HCl (Buspar) 10 mg BID PO Last administered on 09/23/18 11:44; Admin Dose 10 MG; Start 09/15/18 at 09:00; Status Hold Calcium Carbonate (Oyster Shell Calcium) 1.25 gm BID PO Last administered on 09/23/18 11:44; Admin Dose 1.25 GM; Start 09/15/18 at 09:00; Status Hold Clonazepam (Klonopin) 0.5 mg DAILY PRN PO ANXIETY Last administered on 09/23/18 02:04; Admin Dose 0.5 MG; Start 09/15/18 at 07:30; Status Hold Docusate Sodium (Colace) 100 mg BID PO Last administered on 09/23/18 09:43; Admin Dose 100 MG; Start 09/15/18 at 09:00; Status Hold Rifaximin (Xifaxan) 550 mg BID PO Last administered on 09/22/18 21:42; Admin Dose 550 MG; Start 09/15/18 at 09:00; Status Hold Sertraline HCl (Zoloft) 100 mg DAILY PO ; Start 09/15/18 at 09:00; Status Hold Fluticasone/ Vilanterol (Breo Ellipta 200-25 Mcg Inh) 1 inh DAILY INH Last administered on 10/02/18 08:58; Admin Dose 1 INH; Start 09/15/18 at 09:00 Albuterol/ Ipratropium (Duoneb) 3 ml Q3H RESP THERAPY PRN HHN WHEEZING AND SOB Last administered on 09/21/18 21:08; Admin Dose 3 ML; Start 09/15/18 at 08:00 Levalbuterol (Xopenex Neb) 0.63 mg Q4H RESP THERAPY HHN Last administered on 10/02/18 08:28; Admin Dose 0.63 MG; Start 09/15/18 at 17:00 Levalbuterol (Xopenex Neb) 0.63 mg Q2H RESP THERAPY PRN HHN WHEEZING AND SOB; Start 09/15/18 at 14:00 Collagenase (Santyl) 1 applic DAILY TOP Last administered on 10/02/18 08:59; Admin Dose 1 APPLIC; Start 09/16/18 at 15:00 Apixaban (Eliquis) 5 mg BID PO Last administered on 09/23/18 09:45; Admin Dose 5 MG; Start 09/19/18 at 21:00; Status Hold Multivitamins Therapeutic (Theragran) 1 tab DAILY PO Last administered on 10/02/18 11:01; Admin Dose 1 TAB; Start 09/19/18 at 12:00 Ascorbic Acid (Vitamin C) 500 mg DAILY PO Last administered on 09/23/18 09:45; Admin Dose 500 MG; Start 09/19/18 at 12:00; Status Hold Zinc Sulfate (Zinc Sulfate) 220 mg DAILY PO Last administered on 09/22/18 08:50; Admin Dose 220 MG; Start 09/19/18 at 12:00; Status Hold Thiamine HCl (Vitamin B1) 50 mg DAILY PO Last administered on 09/23/18 09:45; Admin Dose 50 MG; Start 09/19/18 at 12:00; Status Hold Simethicone (Mylicon) 80 mg Q6H PRN PO DISTENSION/GAS/BLOATING Last administered on 09/22/18 23:50; Admin Dose 80 MG; Start 09/20/18 at 06:30 Diltiazem HCl (Cardizem Cd) 120 mg DAILY PO Last administered on 09/23/18 11:41; Admin Dose 120 MG; Start 09/20/18 at 09:00; Status Hold Zolpidem Tartrate (Ambien) 5 mg HS PRN PO INSOMNIA Last administered on 09/24/18 01:16; Admin Dose 5 MG; Start 09/21/18 at 02:00; Status Hold Phenol (Cepastat Lozenge) 1 lozenge Q1H PRN MT SORE THROAT Last administered on 09/22/18 03:32; Admin Dose 1 LOZENGE; Start 09/22/18 at 01:00 Levofloxacin (Levaquin) 500 mg DAILY@06 PO Last administered on 09/23/18at 07 :21; Admin Dose 500 MG; Start 09/23/18 at 06:00; Status Hold Metronidazole 100 ml @ 100 mls/hr Q8 IVPB Last administered on 09/23/18at 22:03; Admin Dose 100 MLS/HR; Start 09/23/18 at 14:00; Status Hold Meropenem/Sodium Chloride 50 ml @ 100 mls/hr Q8H IVPB Last administered on 10/02/18at 17:52; Admin Dose 100 MLS/HR; Start 09/24/18 at 02:30 Hydromorphone HCl (Dilaudid) 0.5 mg Q4H PRN IV SEVERE PAIN LEVEL 7-10 Last administered on 09/30/18at 21:56; Admin Dose 0.5 MG; Start 09/24/18 at 03:00 Lorazepam (Ativan) 0.5 mg Q6H PRN IV ANXIETY Last administered on 10/02/18 05:11; Admin Dose 0.5 MG; Start 09/24/18 at 03:00 Pantoprazole (Protonix Iv) 40 mg BID@06,18 IV Last administered on 10/02/18at 1 7:52; Admin Dose 40 MG; Start 09/24/18 at 18:00 Miscellaneous Information 1 ea NOTE XX ; Start 09/25/18 at 22:00 Glucose (Glutose) 15 gm Q15M PRN PO DECREASED GLUCOSE; Start 09/25/18 at 22:00 Glucose (Glutose) 22.5 gm Q15M PRN PO DECREASED GLUCOSE; Start 09/25/18 at 22:00 Dextrose (D50w Syringe) 25 ml Q15M PRN IV DECREASED GLUCOSE Last administered on 09/30/18 01:04; Admin Dose 25 ML; Start 09/25/18 at 22:00 Dextrose (D50w Syringe) 50 ml Q15M PRN IV DECREASED GLUCOSE; Start 09/25/18 at 22:00 Glucagon (Glucagen) 1 mg Q15M PRN IM DECREASED GLUCOSE; Start 09/25/18 at 22:00 Glucose (Glutose) 15 gm Q15M PRN BUCCAL DECREASED GLUCOSE; Start 09/25/18 at 22:00 Mupirocin (Bactroban) 1 applic BID TOP Last administered on 10/02/18 08:58; Admin Dose 1 APPLIC; Start 09/26/18 at 21:00; Stop 10/06/18 at 09:01 Methadone HCl (Methadone Liq) 2 mg Q4 SL Last administered on 10/02/18 17:51; Admin Dose 2 MG; Start 09/28/18 at 09:30 Enoxaparin Sodium (Lovenox) 40 mg DAILY SC Last administered on 10/02/18 09:02; Admin Dose 40 MG; Start 09/30/18 at 15:00 Miscellaneous Information (*Order Clarification Bulletin) MEDICATION REQUIRES CLARIFICATI... Q12 XX ; Start 09/30/18 at 21:00 IV Flush (NS 10 ml) 10 ml PRN PRN IV IV PROTOCOL; Start 09/30/18 at 19:30 Total Parenteral Nutrition 1,000 ml @ 60 mls/hr [id number] IV Last administered on 10/02/18 10:56; Admin Dose 60 MLS/HR; Start 10/01/18 at 18:00 Insulin Aspart (Novolog Insulin Pen) NOVOLOG *MILD* ALGORITHM WITH MEALS BEDTIME SC Last administered on 10/02/18 08:37; Admin Dose 1 UNIT; Start 10/01/18 at 21:00 DIEGO ENRIQUEZ NP Oct 02, 2018 20:02
[2018-10-02 20:13] VITALS: BP 118/63; PULSE 97; RESP 18
--- NOTE | 2018-10-02 20:57 | PN ---
Date/Time of Note Date/Time of Note DATE: 10/02/18 TIME: 20:51 Assessment/Plan Lines/Catheters IV Catheter Type (from [facility]): PICC Line Cline in Place (from [facility]): No Assessment/Plan Chief Complaint/Hosp Course 1. Perforated viscous with possible small bowel obstruction with possible bowel inflammation. long d/w patient-she is refusing surgery despite severe cons equences up to . SBFT noted with high grade obstruction, however has bowel function and no abdominal discomfort. Worsening Bandemia. CT noted 10/02. I had a long d/w patient's son and the patient regarding the findings of continued obstruction on imaging with worsening bandemia. I advised that I am very concerned about what maybe going on inside the abdomen. CT reviewed. Despite the risks, I think the safest option is to explore the patient. -OR since both patient and son are agreeable despite the risks -abx per ID -supportive -fluids -NGT to low intermittent wall suction 2. Hypoxic and hypercapnic respiratory failure -Supplemental oxygen, bronchodilators, as needed BiPAP -Pulmonary 3. NSTEMI -medical/cardiac optimization 4. Sepsis, leukopenia 2nd above -as above 5. Acute renal insufficiency improved judicious fluid management -avoid nephrotoxic agents 6. Elevated transaminases, history of hep C -Monitor 7. Chronic methadone use: -appreciate pain mgt input Thank you, Subjective 24 Hr Interval Summary I had a long d/w patient's son and the patient regarding the findings of continued obstruction on imaging with worsening bandemia. I advised that I am very concerned about what maybe going on inside the abdomen. CT reviewed. Despite the risks, I think the safest option is to explore the patient. Patient started on clears and advanced by medical team however made npo after I continued to request it. Continues to have some bowel function (flatus and liquids stools) without abdominal discomfort. No fevers, chills, sob, congested cough, cp, palpitations, savage, dizziness, nausea, vomiting, dysuria. Exam/Review of Systems Vital Signs Vitals Vital Signs Date Temp Pulse Resp B/P (MAP) Pulse Ox O2 O2 Flow FiO2 Time Delivery Rate 10/02/18 98.8 97 18 118/63 94 Nasal 20:13 (81) Cannula 10/02/18 6.0 08:40 Intake and Output 810/01/18 10/02/18 1515:00 23:00 07:00 IntakeIntake Total 570 ml 250 ml BalanceBalance 570 ml 250 ml Exam Free Text/Dictation Constitutional: alert, oriented (To self, Time, Situation, Location); No distress Psych: nl mood/affect; No anxiety Head: normocephalic, lacerations Eyes: nl conjunctiva, EOMI, PERRL; No icteric ENMT: nl external ears & nose, mucosa pink and moist, ngt Neck: supple, non-tender, jvd Respiratory: normal air movement; No congested cough, No labored breathing Cardiovascular: No regular rate and rhythm, No edema Gastrointestinal: soft, distended (min), NT; No rebound, guarding, rigidity Musculoskeletal: nl extremities to inspection; No nl gait and stance, No joint tenderness Extremities: normal pulses Results Result Diagram: 10/02/18 0831 10/02/18 0645 JESSIKA OREILLY MD Oct 02, 2018 20:57
--- NOTE | 2018-10-02 20:58 | PREAC ---
Date/Time of Note Date/Time of Note DATE: 10/02/18 TIME: 20:56 Anesthesia Eval and Record Evaluation Time Pre-Procedure Interview DATE: 10/02/18 TIME: 20:56 Age 68 Sex female NPO: 8 hrs Preoperative diagnosis Abdominal pain, obstruction Planned procedure Exploratory laparoscopy Past Medical History Past Medical History: Includes Cardio: HTN, Dyslipidemia Endo: Diabetes GI: GERD Surgery & Anesthesia Issues No known issue Meds Anticoagulation: No Beta Mikel within 24 hr: No Reason Beta Mkiel not given: Pt. not on B-Mikel Active Scripts Pantoprazole* (Pantoprazole*) 40 Mg Tablet.dr, 40 MG PO DAILY@06 for 14 Days, #14 Prov:RICKIE DALTON MD 06/12/18 Apixaban* (Eliquis*) 5 Mg Tablet, 10 MG PO BID for 30 Days, #60 TAB 10 mg twice daily for 5 days, then 5 mg twice daily Prov:RICKIE DALTON MD 06/12/18 Methadone Hcl* (Methadone*) 5 Mg/5 Ml Solution, 68 MG PO DAILY for 30 Days, ML Prov:STU ORTEZ. 04/14/18 Salmeterol Xinaf/Fluticasone* (Advair*) 250-50 Diskus Inhaler, 1 INH INHALATION BID for 30 Days, #1 INHALER Prov:ZHANG WARE NP 02/28/16 Albuterol Sulfate* (Proair HFA*) 8.5 Gm Hfa.aer.ad, 2 PUFF INH Q6 for SHORTNESS OF BREATH for 14 Days, #1 INHALER Prov:ZHANG WARE NP 02/28/16 Reported Medications Sertraline Hcl* (Sertraline Hcl*) 25 Mg Tablet, 25 MG PO DAILY, #30 TAB 09/15/18 Buspirone Hcl* (Buspirone Hcl*) 10 Mg Tab, 10 MG PO BID, TAB 09/15/18 Clonazepam* (Clonazepam*) 0.5 Mg Tablet, 0.5 MG PO DAILY PRN for ANXIETY, TAB 09/15/18 Ipratropium-Albuterol (Ipratropium-Albuterol) 0.5-3 Mg/3 Ml Ampul.neb, 3 ML INHALATION Q6 PRN for WHEEZING AND SOB, #30 VIAL 09/15/18 Carvedilol* (Carvedilol*) 6.25 Mg Tablet, 6.25 MG PO BID, #60 TAB 09/15/18 Cholecalciferol (Vitamin D3) (VITAMIN D-3) 2,000 Unit Capsule, 2000 U PO DAILY for 30 Days 04/30/18 Amlodipine Besylate* (Amlodipine Besylate*) 5 Mg Tablet, 5 MG PO DAILY for 30 Days, #30 04/30/18 Baclofen* (Baclofen*) 10 Mg Tablet, 10 MG PO BID 04/30/18 Calcium Carbonate (Mfab-Bns-995) 500 Mg Tablet, 500 MG PO BID, TAB 04/30/18 Current Medications IV Flush (NS 3 ml) 3 ml PER PROTOCOL IV ; Start 09/15/18 at 07:30 Ondansetron HCl (Zofran Inj) 4 mg Q6H PRN IV NAUSEA/VOMITING Last administered on 09/29/18at 13:19; Admin Dose 4 MG; Start 09/15/18 at 07:30 Acetaminophen (Tylenol Tab) 650 mg Q6H PRN PO .PAIN 1-3 OR TEMP Last administered on 09/16/18at 21:56; Admin Dose 650 MG; Start 09/15/18 at 07:30 Baclofen (Lioresal) 10 mg BID PO Last administered on 09/23/18 09:45; Admin Dose 10 MG; Start 09/15/18 at 09:00; Status Hold Buspirone HCl (Buspar) 10 mg BID PO Last administered on 09/23/18 11:44; Admin Dose 10 MG; Start 09/15/18 at 09:00; Status Hold Calcium Carbonate (Oyster Shell Calcium) 1.25 gm BID PO Last administered on 09/23/18 11:44; Admin Dose 1.25 GM; Start 09/15/18 at 09:00; Status Hold Clonazepam (Klonopin) 0.5 mg DAILY PRN PO ANXIETY Last administered on 09/23/18 02:04; Admin Dose 0.5 MG; Start 09/15/18 at 07:30; Status Hold Docusate Sodium (Colace) 100 mg BID PO Last administered on 09/23/18 09:43; Admin Dose 100 MG; Start 09/15/18 at 09:00; Status Hold Rifaximin (Xifaxan) 550 mg BID PO Last administered on 09/22/18 21:42; Admin Dose 550 MG; Start 09/15/18 at 09:00; Status Hold Sertraline HCl (Zoloft) 100 mg DAILY PO ; Start 09/15/18 at 09:00; Status Hold Fluticasone/ Vilanterol (Breo Ellipta 200-25 Mcg Inh) 1 inh DAILY INH Last administered on 10/02/18 08:58; Admin Dose 1 INH; Start 09/15/18 at 09:00 Albuterol/ Ipratropium (Duoneb) 3 ml Q3H RESP THERAPY PRN HHN WHEEZING AND SOB Last administered on 09/21/18 21:08; Admin Dose 3 ML; Start 09/15/18 at 08:00 Levalbuterol (Xopenex Neb) 0.63 mg Q4H RESP THERAPY HHN Last administered on 10/02/18 08:28; Admin Dose 0.63 MG; Start 09/15/18 at 17:00 Levalbuterol (Xopenex Neb) 0.63 mg Q2H RESP THERAPY PRN HHN WHEEZING AND SOB; Start 09/15/18 at 14:00 Collagenase (Santyl) 1 applic DAILY TOP Last administered on 10/02/18 08:59; Admin Dose 1 APPLIC; Start 09/16/18 at 15:00 Apixaban (Eliquis) 5 mg BID PO Last administered on 09/23/18 09:45; Admin Dose 5 MG; Start 09/19/18 at 21:00; Status Hold Multivitamins Therapeutic (Theragran) 1 tab DAILY PO Last administered on 10/02/18 11:01; Admin Dose 1 TAB; Start 09/19/18 at 12:00 Ascorbic Acid (Vitamin C) 500 mg DAILY PO Last administered on 09/23/18 09:45; Admin Dose 500 MG; Start 09/19/18 at 12:00; Status Hold Zinc Sulfate (Zinc Sulfate) 220 mg DAILY PO Last administered on 09/22/18 08:50; Admin Dose 220 MG; Start 09/19/18 at 12:00; Status Hold Thiamine HCl (Vitamin B1) 50 mg DAILY PO Last administered on 09/23/18 09:45; Admin Dose 50 MG; Start 09/19/18 at 12:00; Status Hold Simethicone (Mylicon) 80 mg Q6H PRN PO DISTENSION/GAS/BLOATING Last administered on 09/22/18 23:50; Admin Dose 80 MG; Start 09/20/18 at 06:30 Diltiazem HCl (Cardizem Cd) 120 mg DAILY PO Last administered on 09/23/18 11:41; Admin Dose 120 MG; Start 09/20/18 at 09:00; Status Hold Zolpidem Tartrate (Ambien) 5 mg HS PRN PO INSOMNIA Last administered on 09/24/18 01:16; Admin Dose 5 MG; Start 09/21/18 at 02:00; Status Hold Phenol (Cepastat Lozenge) 1 lozenge Q1H PRN MT SORE THROAT Last administered on 09/22/18 03:32; Admin Dose 1 LOZENGE; Start 09/22/18 at 01:00 Levofloxacin (Levaquin) 500 mg DAILY@06 PO Last administered on 09/23/18 07:2 1; Admin Dose 500 MG; Start 09/23/18 at 06:00; Status Hold Metronidazole 100 ml @ 100 mls/hr Q8 IVPB Last administered on 09/23/18 22:03; Admin Dose 100 MLS/HR; Start 09/23/18 at 14:00; Status Hold Meropenem/Sodium Chloride 50 ml @ 100 mls/hr Q8H IVPB Last administered on 10/02/18 17:52; Admin Dose 100 MLS/HR; Start 09/24/18 at 02:30 Hydromorphone HCl (Dilaudid) 0.5 mg Q4H PRN IV SEVERE PAIN LEVEL 7-10 Last administered on 09/30/18 21:56; Admin Dose 0.5 MG; Start 09/24/18 at 03:00 Lorazepam (Ativan) 0.5 mg Q6H PRN IV ANXIETY Last administered on 10/02/18 05:11; Admin Dose 0.5 MG; Start 09/24/18 at 03:00 Pantoprazole (Protonix Iv) 40 mg BID@06,18 IV Last administered on 10/02/18 17: 52; Admin Dose 40 MG; Start 09/24/18 at 18:00 Miscellaneous Information 1 ea NOTE XX ; Start 09/25/18 at 22:00 Glucose (Glutose) 15 gm Q15M PRN PO DECREASED GLUCOSE; Start 09/25/18 at 22:00 Glucose (Glutose) 22.5 gm Q15M PRN PO DECREASED GLUCOSE; Start 09/25/18 at 22:00 Dextrose (D50w Syringe) 25 ml Q15M PRN IV DECREASED GLUCOSE Last administered on 09/30/18at 01:04; Admin Dose 25 ML; Start 09/25/18 at 22:00 Dextrose (D50w Syringe) 50 ml Q15M PRN IV DECREASED GLUCOSE; Start 09/25/18 at 22:00 Glucagon (Glucagen) 1 mg Q15M PRN IM DECREASED GLUCOSE; Start 09/25/18 at 22:00 Glucose (Glutose) 15 gm Q15M PRN BUCCAL DECREASED GLUCOSE; Start 09/25/18 at 22:00 Mupirocin (Bactroban) 1 applic BID TOP Last administered on 10/02/18at 08:58; Admin Dose 1 APPLIC; Start 09/26/18 at 21:00; Stop 10/06/18 at 09:01 Methadone HCl (Methadone Liq) 2 mg Q4 SL Last administered on 10/02/18at 17:51; Admin Dose 2 MG; Start 09/28/18 at 09:30 Enoxaparin Sodium (Lovenox) 40 mg DAILY SC Last administered on 10/02/18at 09:02; Admin Dose 40 MG; Start 09/30/18 at 15:00 Miscellaneous Information (*Order Clarification Bulletin) MEDICATION REQUIRES CLARIFICATI... Q12 XX ; Start 09/30/18 at 21:00 IV Flush (NS 10 ml) 10 ml PRN PRN IV IV PROTOCOL; Start 09/30/18 at 19:30 Total Parenteral Nutrition 1,000 ml @ 60 mls/hr [id number] IV Last administered on 10/02/18at 10:56; Admin Dose 60 MLS/HR; Start 10/01/18 at 18:00 Insulin Aspart (Novolog Insulin Pen) NOVOLOG *MILD* ALGORITHM WITH MEALS BEDTIME SC Last administered on 10/02/18at 08:37; Admin Dose 1 UNIT; Start 10/01/18 at 21:00 Meds reviewed: Yes Allergies Coded Allergies: Sulfa (Sulfonamide Antibiotics) (Verified Allergy, Mild, 09/17/18) chlorpromazine HCl (Verified Allergy, Unknown, 09/17/18) Uncoded Allergies: tape (Allergy, Mild, rash, 02/28/16) Allergies Reviewed: Yes Labs/Studies Labs Reviewed: Reviewed by anesthesiologist Result Diagram: 10/02/18 0831 10/02/18 0645 Laboratory Tests 10/02/18 06:45 10/02/18 08:31 test: N/A Studies: ECG Pre-procedure Exam Last vitals Vital Signs Date Temp Pulse Resp B/P (MAP) Pulse Ox O2 O2 Flow FiO2 Time Delivery Rate 10/02/18 98.8 97 18 118/63 94 Nasal 20:13 (81) Cannula 10/02/18 6.0 08:40 Airway: Adequate mouth opening, Adequate thyromental dist Mallampati: Mallampati IV Teeth: Normal Lung: Normal Heart: Normal ASA Physical Status ASA physical status: 4 Emergency: E Planned Anesthetic General/MAC: ETT Neuraxial: Spinal Planned Pain Management Single shot nerve block Pre-operative Attestations Prior to commencing anesthesia and surgery, the patient was re-evaluated, there was verification of: *The patient's identity *The results of appropriate recent lab work and preoperative vital signs *The above evaluation not changing prior to induction *Anesthetic plan, risk benefits, alternative and complications discussed with patient/family; questions answered; patient/family understands, accepts and wishes to proceed. ALFA JONES MD Oct 02, 2018 20:58
[2018-10-02] MEDS ORDERED: MIDAZOLAM 1 MG/ML 2 ML INJ ONE (21:07)
[2018-10-02] MEDS ORDERED: LIDOCAINE 1% (MPF) 30 ML INJ ONE (21:52)
[2018-10-02] MEDS ORDERED: BUPIVACAINE 0.25%/EPI (SDV) 30 ML INJ ONE (21:52)
[2018-10-02] MEDS ORDERED: PHENYLephrine 10 MG INJ ONE ×2 (22:08→23:21)
[2018-10-02] MEDS ORDERED: ROCURONIUM 50 MG INJ ONE (23:16)
[2018-10-02] MEDS ORDERED: LIDOCAINE 2% (SDV) 5 ML INJ ONE (23:16)
[2018-10-02] MEDS ORDERED: ETOMIDATE 20 MG INJ ONE (23:16)
[2018-10-02] MEDS ORDERED: CEFAZOLIN 1 GM INJ ONE (23:17)
[2018-10-02] MEDS ORDERED: metroNIDAZOLE 500 MG/NS (PMX) 100 ML IVPB ONE (23:17)
[2018-10-02] MEDS ORDERED: NEOSTIGMINE 3 MG/3 ML SYRINGE ONE (23:17)
[2018-10-02] MEDS ORDERED: GLYCOPYRROLATE 0.4 MG INJ ONE (23:17)
[2018-10-02] MEDS ORDERED: ONDANSETRON 4 MG INJ ONE (23:23)
--- NOTE | 2018-10-02 23:56 | OPR ---
Date/Time of Note Date/Time of Note DATE: 10/02/18 TIME: 23:41 Operative Report Free Text/Dictation Preoperative Diagnosis: Worsening bandemia Partial versus high-grade obstruction Recent bowel perforation, questionable sealed Worsening ascites Questionable abscesses Postoperative Diagnosis: Perforated terminal ileum with multiple abscesses Significant ascites Small bowel obstruction Operation(s) Performed: 1. Laparoscopic converted to mini laparotomy/open exploration 2. Right ileo-right colectomy 3. Scopic drainage of pelvic and right lower quadrant abscesses 4. Local anesthetic [place], [id number] 5. Laparoscopic guided bilateral transversus abdominis plane block Surgeon: JESSIKA OREILLY MD Income Tax Analyst: None Anesthesia: General, local, & regional Anesthesiologist: Yusuf Johnson MD Estimated Blood Loss: Less than 50 ml's Specimens: Right colon and terminal ileum Tubes/Drains: 19 Ghanaian Terrance Complications: None Pt Condition Post Procedure: stable Disposition: PACU Indications: Per notes Risks include but are not limited to bleeding, infection, abscess, seroma, leak, damage to intestines or any intra-abdominal/intrapelvic structures, hernia formation, chronic pain, need for re-operations or further surgeries, MA, stroke, PE, DVT, pneumonia, organ failures, or even . I had a very long discussion with patient and son about the possible findings and significant risks associated with surgery or not doing surgery. Patient has been refusing surgery for the first part of her hospital stay however now she is amenable to proceeding with exploration. Procedure Description: Patient was brought in, placed lithotomy on the operating table, SCDs were placed, and preoperative antibiotics administered. After induction of anesthesia, all pressure points were well-padded and timeout was performed. Local anesthetic was injected at all surgical sites. Incision was made in the left upper quadrant and using an Optiview 5 mm port and the 5 mm 0 scope abdomen was entered and insufflated to 15 mmHg with CO2. Laparoscopy with a 5 mm 30 scope did not identify any injuries. There was significantly dilated small bowel throughout. There was also significant amount of ascites. Under direct visualization 2x 5 mm ports were placed in left abdomen. Laparoscopic bilateral transversus abdominis plane block was performed under laparoscopic visualization to aid with pain control intra-and postoperatively. Ascites was suctioned out for about 1.5 L. Patient was placed in Trendelenburg and right side up. Appendix was identified. Investigation identified that a few inches proximal to the ileocecal valve there was abnormal terminal ileum with perforation was sealed against the colon. However as soon as we pulled it away there was pus in the area and abscess was drained. This was suctioned out. Gentle dissection was carried out to separate the terminal ileum from this very adhesed posterior region. The right colon was mobilized off of the abdominal w all using scissors with complete hemostasis. Dissection was a little difficult and decision was made to make a mini laparotomy. However prior to that an abscess was in the pelvis was identified was also suctioned out. Mini laparotomy was made and Maciej wound retractor was placed. Small bowel and colon were exteriorized. The peritoneum on the medial aspect of the proximal colon and transverse colon was mobilized as well using electrocautery. The iliocolic vascular bundle was identified and transected with LigaSure close to the bowel. The omentum was taken off of the abdominal wall and gastro-colonic ligament was identified and opened using LigaSure as well. The hepatic flexure was taken down using LigaSure as well fully mobilizing the right and transverse colon. At this point the mesentery was sequentially taken with LigaSure. Terminal ileum proximal to the perforation was transected with echelon 60 blue load stapler. The transverse colon and mid to distal segment was transected with the same stapler. The specimen was fully mobilized. The terminal ileum was placed [id number] along the distal transverse colon and stay sutures were placed using 2-0 silk sutures. Enterotomies were created in both structures and a firing of echelon 60 blue loads were used to create the anastomosis. Crotch stitch was placed 2 using same silk suture. The open end of the anastomosis was stapled using the same echelon stapler. The staple line was reinforced with the 2-0 silk Lembert suture in a running fashion. 19 Ghanaian Terrance was placed through the left lower incision into the pelvis and right gutter and secured with 2-0 nylon. There was complete hemostasis. Midline incision was closed with 2 times #1 looped PDS sutures. Skin was closed loosely with juarez due to increased risk of infection. Patient was extubated and transferred to ICU in stable condition. All counts were correct and the end of the operation 2. JESSIKA OREILLY MD Oct 02, 2018 23:56
[2018-10-03] VITALS (81 sets, daily range): BP systolic 60–131; BP diastolic 33–93; PULSE 74–132; RESP 12–33
--- NOTE | 2018-10-03 00:09 | PAC ---
Date/Time of Note Date/Time of Note DATE: 10/03/18 TIME: 00:09 Post-Anesthesia Notes Post-Anesthesia Note Last documented vital signs Vital Signs Date Temp Pulse Resp B/P (MAP) Pulse Ox O2 O2 Flow FiO2 Time Delivery Rate 10/02/18 98.8 97 18 118/63 94 Nasal 20:13 (81) Cannula 10/02/18 6.0 08:40 Activity: WNL Respiratory function: WNL Cardiovascular function: WNL Mental status: Baseline Pain reasonably controlled: Yes Hydration appropriate: Yes Nausea/Vomiting absent: Yes Comments 128/78, P:89, Spo2:100%, T:97,8 ALFA JONES MD Oct 03, 2018 00:09
[2018-10-03] MEDS ORDERED: morphine 2 MG INJ IV PRN (00:30)
[2018-10-03] MEDS ORDERED: HYDROmorphONE 0.5 MG/0.5 ML SYG IV PRN ×2 (00:30)
[2018-10-03] MEDS ORDERED: LORAZEPAM 2 MG INJ IV PRN (00:30)
[2018-10-03] MEDS ORDERED: DIPHENHYDRAMINE 50 MG INJ IV PRN (00:30)
[2018-10-03] MEDS ORDERED: FENTAnyl 50 MCG/ML VIAL IV PRN (00:30)
[2018-10-03] MEDS ORDERED: ONDANSETRON 4 MG INJ IV PRN (00:30)
[2018-10-03] MEDS: HYDROmorphONE 0.5 MG/0.5 ML SYG IV PRN ×3 (00:47→14:27)
[2018-10-03] MEDS: LEVALBUTEROL (NEB) 0.63 MG/3 ML AMP HHN SCH ×6 (00:56→20:29)
[2018-10-03] MEDS ORDERED: METHYLPREDNISOLONE 40 MG INJ IV ONE (01:30)
[2018-10-03] MEDS ORDERED: DEXTROSE 5%-0.9% NACL 1,000 ML IV SCH (01:30)
[2018-10-03] MEDS ORDERED: SOD CHLORIDE 0.9% 250 ML IV SCH (01:40)
[2018-10-03] MEDS: METHADONE (1 MG/ML 5 ML PO UD SYG) SL SCH ×6 (01:48→21:11)
[2018-10-03] MEDS: MEROPENEM 1 GM/50ML(PMX) 50 ML IVPB SCH ×3 (01:49→18:35)
[2018-10-03] MEDS ORDERED: SOD CHLORIDE 0.9% 250 ML IV ONE (02:30)
[2018-10-03] MEDS: PHENYLephrine 20MG IN 250 ML 250 ML IV SCH ×2 (04:02→05:35)
[2018-10-03] MEDS: TPN 1,000 ML IV SCH ×2 (04:05→20:52)
[2018-10-03] MEDS: PANTOPRAZOLE 40 MG INJ IV SCH ×2 (05:32→17:53)
[2018-10-03] MEDS ORDERED: SOD CHLORIDE 0.9% 500 ML IV ONE (06:00)
[2018-10-03] MEDS ORDERED: SOD CHLORIDE 0.9% 1,000 ML IV SCH (06:00)
--- NOTE | 2018-10-03 07:55 | PN ---
DATE: 10/03/2018 SUBJECTIVE: The patient yesterday underwent surgery with laparotomy. The patient had a right ileal right colectomy performed. Following surgery, the patient is in intensive care unit in shock, hypote nsive on pressor support, IV fluids. The patient's urinary output has been marginal. OBJECTIVE: VITAL SIGNS: Blood pressure 96/53, respiration 15, pulse 109, temperature 98.2. HEENT: Head is normocephalic. NECK: Supple. HEART: Regular rate. LUNGS: Show diminished breath sounds at the base. ABDOMEN: Soft, nontender to palpation without rebound or guarding. EXTREMITIES: Negative for clubbing, cyanosis, no edema. DERMATOLOGIC: No rashes. MUSCULOSKELETAL: No joint effusion. NEUROLOGIC: No change in exam. MEDICATIONS: Reviewed. LABORATORY DATA: Has been reviewed. IMAGING STUDIES: Have been reviewed. ASSESSMENT AND PLAN: 1. Oliguric acute kidney injury. Etiology of initial acute kidney injury was secondary to hemodynam ics. The patient's urinary output has declined in the last 6 hours. Likely due to sepsis, shock. W ould continue medical management. Continue volume expansion with normal saline. Continue pressor jean-baptiste pport, antibiotic therapy, monitor closely. 2. Hypomagnesemia, hypophosphatemia, improved. Continue to monitor. 3. Small-bowel obstruction. The patient is status post laparotomy with partial colectomy. Continue to monitor. Follow up with general surgery. 4. Shock, presumed sepsis secondary to perforated bowel. Continue pressor support, antibiotic thera py, IV fluids. Follow up cultures. 5. Anemia. Monitor hemoglobin and hematocrit levels. 6. History of hepatitis C. 7. Acute encephalopathy. Etiology is toxic metabolic. 8. Hyponatremia, mild. Continue to monitor. Dictated By: RICHARD ORTIZ DO NR/NTS Conf#: [id number] DID#: [id number] CC: GERALDO VARGAS MD;*EndCC*
[2018-10-03] MEDS: COLLAGENASE 5 GM (UD JAR) TOP SCH (08:18)
[2018-10-03] MEDS: BALSAM PERU/CASTOR OIL 60 GM TUBE TOP SCH ×2 (08:19→21:12)
[2018-10-03] MEDS: MUPIROCIN 2% 22 GM OINT TOP SCH ×2 (08:19→20:49)
[2018-10-03] MEDS: FLUTICASONE/VILANTEROL 200-25 INH DEVICE INH SCH (08:19)
[2018-10-03] MEDS ORDERED: PHENYLephrine 80 MG in DEXTROSE 5% 242 ML IV SCH (08:30)
[2018-10-03] MEDS: INSULIN ASPART [NOVOLOG] 3 ML PEN SC SCH ×4 (08:36→20:52)
[2018-10-03] MEDS: SOD CHLORIDE 0.9% 1,000 ML IV SCH (08:37)
[2018-10-03] MEDS: ENOXAPARIN 40 MG/0.4 ML SYG SC SCH (08:40)
[2018-10-03] MEDS: MULTIVITAMINS THERAPEUTIC TAB PO SCH (08:48)
--- NOTE | 2018-10-03 09:00 | CONS ---
Assessment/Plan Assessment/Plan Assessment/Plan (Daily) Chest x-ray was reviewed from today which is essentially clear. Patient is currently on TPN as well as phenylephrine drip at 120 mics per minute. Assessment and recommendations; 1. Patient initially admitted for acute bronchitis but then developed acute abdomen due to perforated bowel status post laparotomy and colostomy yesterday. 2. Postop ileus. 3. Multiple abdominal abscesses found during surgery. 4. Hypercapnia. 5. History of muscle spasms. 6. Persistent hypotension. Continue current supportive care. Patient may benefit from BiPAP as needed. Consultation Date/Type/Reason Admit Date/Time Sep 15, 2018 at 03:32 Initial Consult Date 09/15/18 Type of Consult Pulmonary Patient is complaining of diarrhea as well as significant left lower quadrant abdominal pain. Denies any fever, chills, any vomiting. Shortness of breath has resolved. General exam; elderly female, laying in bed. H EENT exam; supple no JVD. No lymphadenopathy. Midline trachea. No thyromegaly. Pharynx is clear. Patient is edentulous. Chest exam; diminished but clear breath sounds. S1-S2 audible, no murmurs. Regular rhythm. Abdomen exam; soft, there is left lower quadrant tenderness , bowel sounds audible. Extremity exam; no peripheral edema. [employer] exam; patient is awake alert exhibiting no focal deficit. Assessment and recommendations; 1. Patient admitted with COPD exacerbation with interval improvement. 2. Significant spike and leukocytosis with abdominal pain as well as diarrhea. Add Flagyl 5 mg IV every [address] of abdomen pelvis with contrast. Obtain surgical consult. Requesting Provider: LEOBARDO DC Date/Time of Note DATE: 10/03/18 TIME: 08:57 24 HR Interval Summary Free Text/Dictation Patient's condition is critical. Remains hypotensive on Fabio-Synephrine drip. General exam; elderly woman, awake, responsive appropriately. Currently in no distress. Exam/Review of Systems Exam Vitals Vital Signs Date Temp Pulse Resp B/P (MAP) Pulse Ox O2 O2 Flow FiO2 Time Delivery Rate 10/03/18 109 14 100 Nasal 2.0 08:10 Cannula 10/03/18 98/49 (65) 06:45 10/03/18 98.2 04:00 Intake and Output 10/02/18 10/02/18 10/03/18 1515:00 23:00 07:00 IntakeIntake Total 1050 ml 2570.00 ml OutputOutput Total 2470 ml BalanceBalance 1050 ml 100.00 ml Exam HEENT exam; supple neck, no JVD. No lymphadenopathy. Midline trachea. No thyromegaly. Patient is edentulous. Nasogastric tube in place. Chest exam; clear to auscultation. S1-S2 audible, no murmurs. Regular rhythm. Abdomen exam; tender and distended. Midline dressing in place. Colostomy in place. Bowel sounds are absent. Extremity exam; no edema. [employer] exam; patient awake and responsive appropriately. Results Result Diagram: 10/03/18 0430 10/03/18 0430 Results 24hrs Laboratory Tests Test 10/02/18 18:39 10/02/18 20:30 10/03/18 01:20 10/03/18 04:30 Bedside Glucose 82 81 131 White Blood Count 10.2 Red Blood Count 2.55 L Hemoglobin 7.4 L Hematocrit 24.8 L Mean Corpuscular 97.3 Volume Mean Corpuscular 29.0 Hemoglobin Mean Corpuscular 29.8 L Hemoglobin Concent Red Cell 15.4 H Distribution Width Platelet Count 185 Mean Platelet 11.5 H Volume Immature 0.300 Granulocytes % Neutrophils % Lymphocytes % Monocytes % Eosinophils % Basophils % Nucleated Red 0.0 Blood Cells % Immature 0.030 Granulocytes # Neutrophils # Lymphocytes # Monocytes # Eosinophils # Basophils # Nucleated Red Blood Cells # Sodium Level 134 L Potassium Level 3.8 Chloride Level 99 Carbon Dioxide 35 H Level Anion Gap 0 L Blood Urea 12 Nitrogen Creatinine 0.49 Est Glomerular > 60 Filtrat Rate mL/min Glucose Level 89 # Calcium Level 7.8 L Phosphorus Level 3.3 Magnesium Level 1.7 Test 10/03/18 05:00 10/03/18 08:33 Blood Gas Specimen Blood arterial Source Arterial Blood 10/03/2018 4:37:45 Date Drawn AM Arterial Blood pH 7.375 (Temp corrected) Arterial Blood 57.9 H pCO2 (Temp correct) Arterial Blood pO2 98.8 (Temp corrected) Arterial Blood 33.1 H HCO3 Arterial Blood 6.9 H Base Excess Arterial Blood 97.6 Oxygen Saturation Flip Test ACCEPTAB Arterial Blood Gas Right Radial Puncture Site Arterial 0.6 Blood Carboxyhemog lobin Arterial Blood 0.5 Methemoglobin Blood Gas A-a O2 47.1 H Differential Oxyhemoglobin 96.5 Percent Blood Gas 37.0 Temperature Blood Gas Modality NASAL CANNULA FiO2 30.0 Blood Gas Notified LW Whom Blood Gas Notified 10/03/2018 4:48:28 Time AM Bedside Glucose 182 Medications Medication Current Medications IV Flush (NS 3 ml) 3 ml PER PROTOCOL IV ; Start 09/15/18 at 07:30 Ondansetron HCl (Zofran Inj) 4 mg Q6H PRN IV NAUSEA/VOMITING Last administered on 09/29/18 13:19; Admin Dose 4 MG; Start 09/15/18 at 07:30 Acetaminophen (Tylenol Tab) 650 mg Q6H PRN PO .PAIN 1-3 OR TEMP Last administered on 09/16/18 21:56; Admin Dose 650 MG; Start 09/15/18 at 07:30 Baclofen (Lioresal) 10 mg BID PO Last administered on 09/23/18 09:45; Admin Dose 10 MG; Start 09/15/18 at 09:00; Status Hold Buspirone HCl (Buspar) 10 mg BID PO Last administered on 09/23/18 11:44; Admin Dose 10 MG; Start 09/15/18 at 09:00; Status Hold Calcium Carbonate (Oyster Shell Calcium) 1.25 gm BID PO Last administered on 11:44; Admin Dose 1.25 GM; Start 09/15/18 at 09:00; Status Hold Clonazepam (Klonopin) 0.5 mg DAILY PRN PO ANXIETY Last administered on 09/23/18 02:04; Admin Dose 0.5 MG; Start 09/15/18 at 07:30; Status Hold Docusate Sodium (Colace) 100 mg BID PO Last administered on 09/23/18 09:43; Admin Dose 100 MG; Start 09/15/18 at 09:00; Status Hold Rifaximin (Xifaxan) 550 mg BID PO Last administered on 09/22/18 21:42; Admin Dose 550 MG; Start 09/15/18 at 09:00; Status Hold Sertraline HCl (Zoloft) 100 mg DAILY PO ; Start 09/15/18 at 09:00; Status Hold Fluticasone/ Vilanterol (Breo Ellipta 200-25 Mcg Inh) 1 inh DAILY INH Last administered on 10/03/18 08:19; Admin Dose 1 INH; Start 09/15/18 at 09:00 Albuterol/ Ipratropium (Duoneb) 3 ml Q3H RESP THERAPY PRN HHN WHEEZING AND SOB Last administered on 09/21/18 21:08; Admin Dose 3 ML; Start 09/15/18 at 08:00 Levalbuterol (Xopenex Neb) 0.63 mg Q4H RESP THERAPY HHN Last administered on 10/03/18 08:01; Admin Dose 0.63 MG; Start 09/15/18 at 17:00 Levalbuterol (Xopenex Neb) 0.63 mg Q2H RESP THERAPY PRN HHN WHEEZING AND SOB; Start 09/15/18 at 14:00 Collagenase (Santyl) 1 applic DAILY TOP Last administered on 10/03/18 08:18; Admin Dose 1 APPLIC; Start 09/16/18 at 15:00 Multivitamins Therapeutic (Theragran) 1 tab DAILY PO Last administered on 10/02/18 11:01; Admin Dose 1 TAB; Start 09/19/18 at 12:00 Ascorbic Acid (Vitamin C) 500 mg DAILY PO Last administered on 09/23/18 09:45; Admin Dose 500 MG; Start 09/19/18 at 12:00; Status Hold Zinc Sulfate (Zinc Sulfate) 220 mg DAILY PO Last administered on 09/22/18 08:50; Admin Dose 220 MG; Start 09/19/18 at 12:00; Status Hold Thiamine HCl (Vitamin B1) 50 mg DAILY PO Last administered on 09/23/18 09:45; Admin Dose 50 MG; Start 09/19/18 at 12:00; Status Hold Simethicone (Mylicon) 80 mg Q6H PRN PO DISTENSION/GAS/BLOATING Last administered on 09/22/18 23:50; Admin Dose 80 MG; Start 09/20/18 at 06:30 Diltiazem HCl (Cardizem Cd) 120 mg DAILY PO Last administered on 09/23/18 11:41; Admin Dose 120 MG; Start 09/20/18 at 09:00; Status Hold Zolpidem Tartrate (Ambien) 5 mg HS PRN PO INSOMNIA Last administered on 09/24/18 01:16; Admin Dose 5 MG; Start 09/21/18 at 02:00; Status Hold Phenol (Cepastat Lozenge) 1 lozenge Q1H PRN MT SORE THROAT Last administered on 09/22/18 03:32; Admin Dose 1 LOZENGE; Start 09/22/18 at 01:00 Levofloxacin (Levaquin) 500 mg DAILY@06 PO Last administered on 09/23/18 07:21; Admin Dose 500 MG; Start 09/23/18 at 06:00; Status Hold Metronidazole 100 ml @ 100 mls/hr Q8 IVPB Last administered on 09/23/18 22:03; Admin Dose 100 MLS/HR; Start 09/23/18 at 14:00; Status Hold Meropenem/Sodium Chloride 50 ml @ 100 mls/hr Q8H IVPB Last administered on 10/03/18 01:49; Admin Dose 100 MLS/HR; Start 09/24/18 at 02:30 Hydromorphone HCl (Dilaudid) 0.5 mg Q4H PRN IV SEVERE PAIN LEVEL 7-10 Last administered on 10/03/18 08:38; Admin Dose 0.5 MG; Start 09/24/18 at 03:00 Lorazepam (Ativan) 0.5 mg Q6H PRN IV ANXIETY Last administered on 10/02/18 05:11; Admin Dose 0.5 MG; Start 09/24/18 at 03:00 Pantoprazole (Protonix Iv) 40 mg BID@06,18 IV Last administered on 10/03/18 05:32; Admin Dose 40 MG; Start 09/24/18 at 18:00 Miscellaneous Information 1 ea NOTE XX ; Start 09/25/18 at 22:00 Glucose (Glutose) 15 gm Q15M PRN PO DECREASED GLUCOSE; Start 09/25/18 at 22:00 Glucose (Glutose) 22.5 gm Q15M PRN PO DECREASED GLUCOSE; Start 09/25/18 at 22:00 Dextrose (D50w Syringe) 25 ml Q15M PRN IV DECREASED GLUCOSE Last administered on 09/30/18 01:04; Admin Dose 25 ML; Start 09/25/18 at 22:00 Dextrose (D50w Syringe) 50 ml Q15M PRN IV DECREASED GLUCOSE; Start 09/25/18 at 22:00 Glucagon (Glucagen) 1 mg Q15M PRN IM DECREASED GLUCOSE; Start 09/25/18 at 22:00 Glucose (Glutose) 15 gm Q15M PRN BUCCAL DECREASED GLUCOSE; Start 09/25/18 at 22:00 Mupirocin (Bactroban) 1 applic BID TOP Last administered on 10/03/18 08:19; Admin Dose 1 APPLIC; Start 09/26/18 at 21:00; Stop 10/06/18 at 09:01 Methadone HCl (Methadone Liq) 2 mg Q4 SL Last administered on 10/03/18 01:48; Admin Dose 2 MG; Start 09/28/18 at 09:30 Enoxaparin Sodium (Lovenox) 40 mg DAILY SC Last administered on 10/03/18 08:40; Admin Dose 40 MG; Start 09/30/18 at 15:00 Miscellaneous Information (*Order Clarification Bulletin) MEDICATION REQUIRES CLARIFICATI... Q12 XX Last administered on 10/03/18 08:49; Admin Dose 1 EA; Start 09/30/18 at 21:00 IV Flush (NS 10 ml) 10 ml PRN PRN IV IV PROTOCOL; Start 09/30/18 at 19:30 Total Parenteral Nutrition 1,000 ml @ 60 mls/hr [id number] IV Last administered on 10/03/18 04:05; Admin Dose 60 MLS/HR; Start 10/01/18 at 18:00 Insulin Aspart (Novolog Insulin Pen) NOVOLOG *MILD* ALGORITHM WITH MEALS BEDTIME SC Last administered on 10/03/18 08:36; Admin Dose 2 UNIT; Start 10/01/18 at 21:00 Phenylephrine HCl 250 ml @ 75 mls/hr TITRATE IV Last administered on 10/03/18 05:35; Admin Dose 75 MLS/HR; Start 10/03/18 at 02:30; Stop 10/03/18 at 12:00 Sodium Chloride 1,000 ml @ 50 mls/hr Q20H IV Last administered on 10/03/18 08:37; Admin Dose 50 MLS/HR; Start 10/03/18 at 08:30 Phenylephrine HCl 80 mg/Dextrose 250 ml @ 18.75 mls/ hr TITRATE IV ; Start 10/03/18 at 08:30 JOSÉ MIGUEL THOMSON Oct 03, 2018 09:00
--- NOTE | 2018-10-03 09:06 | PN ---
Date/Time of Note Date/Time of Note DATE: 10/03/18 TIME: 08:52 Assessment/Plan VTE Prophylaxis Risk score (from Ns)>0 risk: 9 SCD applied (from Nsg): Yes Pharmacological prophylaxis: LMWH Lines/Catheters IV Catheter Type (from Nrsg): PICC Line Central line still needed: Yes Urinary Cath still in place: Yes Reason Cath still needed: urinary retention Assessment/Plan Assessment/Plan 68-year-old woman with history of COPD, PE in May 2018, CKD, admitted for COPD exacerbation and found to have ileum perforation with abdominal abscess. #Small bowel perforation #Abdominal abscess - Weeks of abdominal distension, tenderness, bloating. - CT on 09/23 first showed pneumoperitoneum, taken to OR by Dr. Schumacher on 10/02, found to have perforated terminal ileum with abdominal abscess s/p drainage - Etiology is unclear. - Currently in ICU on pressors. - Continue meropenem for now pending operative cultures. - ID following. - NPO, NG tube to low intermittent suction. #Anemia - Likely due to abdominal perforation - Transfuse to Hgb>7 or for symptomatic anemia # Hypoxic and hypercapnic respiratory failure: Resolved. - For now continue supplemental oxygen, bronchodilators, broad-spectrum antibiotics - PE in May 2018, currently on lovenox; eventually will transition back to Eliquis. #MRSA colonization of the nares - On mupirocin GI: PPI DVT: lovenox Result Diagram: 10/03/18 0430 10/03/18 0430 Results 24hrs Laboratory Tests Test 10/02/18 18:39 10/02/18 20:30 10/03/18 01:20 10/03/18 04:30 Bedside Glucose 82 81 131 White Blood Count 10.2 Red Blood Count 2.55 L Hemoglobin 7.4 L Hematocrit 24.8 L Mean Corpuscular 97.3 Volume Mean Corpuscular 29.0 Hemoglobin Mean Corpuscular 29.8 L Hemoglobin Concent Red Cell 15.4 H Distribution Width Platelet Count 185 Mean Platelet 11.5 H Volume Immature 0.300 Granulocytes % Neutrophils % Lymphocytes % Monocytes % Eosinophils % Basophils % Nucleated Red 0.0 Blood Cells % Immature 0.030 Granulocytes # Neutrophils # Lymphocytes # Monocytes # Eosinophils # Basophils # Nucleated Red Blood Cells # Sodium Level 134 L Potassium Level 3.8 Chloride Level 99 Carbon Dioxide 35 H Level Anion Gap 0 L Blood Urea 12 Nitrogen Creatinine 0.49 Est Glomerular > 60 Filtrat Rate mL/min Glucose Level 89 # Calcium Level 7.8 L Phosphorus Level 3.3 Magnesium Level 1.7 Test 10/03/18 05:00 Blood Gas Specimen Blood arterial Source Arterial Blood 10/03/2018 4:37:45 Date Drawn AM Arterial Blood pH 7.375 (Temp corrected) Arterial Blood 57.9 H pCO2 (Temp correct) Arterial Blood pO2 98.8 (Temp corrected) Arterial Blood 33.1 H HCO3 Arterial Blood 6.9 H Base Excess Arterial Blood 97.6 Oxygen Saturation Flip Test ACCEPTAB Arterial Blood Gas Right Radial Puncture Site Arterial 0.6 Blood Carboxyhemog lobin Arterial Blood 0.5 Methemoglobin Blood Gas A-a O2 47.1 H Differential Oxyhemoglobin 96.5 Percent Blood Gas 37.0 Temperature Blood Gas Modality NASAL CANNULA FiO2 30.0 Blood Gas Notified LW Whom Blood Gas Notified 10/03/2018 4:48:28 Time AM Subjective 24 Hr Interval Summary Free Text/Dictation Taken for surgery last night by Dr Schumacher; found to have perforated terminal ileum and multiple abdominal abscesses. This morning in ICU awake and extubated; still on phenylephrine for hypotension. She complains of her usual lower back pain. Exam/Review of Systems Exam Vitals Vital Signs Date Temp Pulse Resp B/P (MAP) Pulse Ox O2 O2 Flow FiO2 Time Delivery Rate 10/03/18 109 14 100 Nasal 2.0 08:10 Cannula 10/03/18 98/49 (65) 06:45 10/03/18 98.2 04:00 Intake and Output 10/02/18 10/02/18 10/03/18 1515:00 23:00 07:00 IntakeIntake Total 1050 ml 2570.00 ml OutputOutput Total 2470 ml BalanceBalance 1050 ml 100.00 ml Exam Gen: Thin frail appearing woman lying in bed, awake and alert. Head: Atraumatic, clear oropharynx Eyes: Normal Conjunctiva, ENT: Normal External Ears, Nose and Mouth. Moist mucous membranes. Neck: Full range of motion. No meningismus. Resp: Clear to auscultation bilaterally Cardio: Regular rate and rhythm, no murmurs Abd: Distended, soft, abdomen. Midline incision dressing clean and dry. Lap incisions clean and dry. Ext: No bilateral lower extremity edema Results Results 24hrs Laboratory Tests Test 10/02/18 18:39 10/02/18 20:30 10/03/18 01:20 10/03/18 04:30 Bedside Glucose 82 81 131 White Blood Count 10.2 Red Blood Count 2.55 L Hemoglobin 7.4 L Hematocrit 24.8 L Mean Corpuscular 97.3 Volume Mean Corpuscular 29.0 Hemoglobin Mean Corpuscular 29.8 L Hemoglobin Concent Red Cell 15.4 H Distribution Width Platelet Count 185 Mean Platelet 11.5 H Volume Immature 0.300 Granulocytes % Neutrophils % Lymphocytes % Monocytes % Eosinophils % Basophils % Nucleated Red 0.0 Blood Cells % Immature 0.030 Granulocytes # Neutrophils # Lymphocytes # Monocytes # Eosinophils # Basophils # Nucleated Red Blood Cells # Sodium Level 134 L Potassium Level 3.8 Chloride Level 99 Carbon Dioxide 35 H Level Anion Gap 0 L Blood Urea 12 Nitrogen Creatinine 0.49 Est Glomerular > 60 Filtrat Rate mL/min Glucose Level 89 # Calcium Level 7.8 L Phosphorus Level 3.3 Magnesium Level 1.7 Test 10/03/18 05:00 Blood Gas Specimen Blood arterial Source Arterial Blood 10/03/2018 4:37:45 Date Drawn AM Arterial Blood pH 7.375 (Temp corrected) Arterial Blood 57.9 H pCO2 (Temp correct) Arterial Blood pO2 98.8 (Temp corrected) Arterial Blood 33.1 H HCO3 Arterial Blood 6.9 H Base Excess Arterial Blood 97.6 Oxygen Saturation Flip Test ACCEPTAB Arterial Blood Gas Right Radial Puncture Site Arterial 0.6 Blood Carboxyhemog lobin Arterial Blood 0.5 Methemoglobin Blood Gas A-a O2 47.1 H Differential Oxyhemoglobin 96.5 Percent Blood Gas 37.0 Temperature Blood Gas Modality NASAL CANNULA FiO2 30.0 Blood Gas Notified LW Whom Blood Gas Notified 10/03/2018 4:48:28 Time AM Medications Medication Current Medications IV Flush (NS 3 ml) 3 ml PER PROTOCOL IV ; Start 09/15/18 at 07:30 Ondansetron HCl (Zofran Inj) 4 mg Q6H PRN IV NAUSEA/VOMITING Last administered on 09/29/18at 13:19; Admin Dose 4 MG; Start 09/15/18 at 07:30 Acetaminophen (Tylenol Tab) 650 mg Q6H PRN PO .PAIN 1-3 OR TEMP Last administer ed on 09/16/18at 21:56; Admin Dose 650 MG; Start 09/15/18 at 07:30 Baclofen (Lioresal) 10 mg BID PO Last administered on 09/23/18 09:45; Admin Dose 10 MG; Start 09/15/18 at 09:00; Status Hold Buspirone HCl (Buspar) 10 mg BID PO Last administered on 09/23/18 11:44; Admin Dose 10 MG; Start 09/15/18 at 09:00; Status Hold Calcium Carbonate (Oyster Shell Calcium) 1.25 gm BID PO Last administered on 09/23/18 11:44; Admin Dose 1.25 GM; Start 09/15/18 at 09:00; Status Hold Clonazepam (Klonopin) 0.5 mg DAILY PRN PO ANXIETY Last administered on 09/23/18 02:04; Admin Dose 0.5 MG; Start 09/15/18 at 07:30; Status Hold Docusate Sodium (Colace) 100 mg BID PO Last administered on 09/23/18 09:43; Admin Dose 100 MG; Start 09/15/18 at 09:00; Status Hold Rifaximin (Xifaxan) 550 mg BID PO Last administered on 09/22/18 21:42; Admin Dose 550 MG; Start 09/15/18 at 09:00; Status Hold Sertraline HCl (Zoloft) 100 mg DAILY PO ; Start 09/15/18 at 09:00; Status Hold Fluticasone/ Vilanterol (Breo Ellipta 200-25 Mcg Inh) 1 inh DAILY INH Last administered on 10/03/18 08:19; Admin Dose 1 INH; Start 09/15/18 at 09:00 Albuterol/ Ipratropium (Duoneb) 3 ml Q3H RESP THERAPY PRN HHN WHEEZING AND SOB Last administered on 09/21/18 21:08; Admin Dose 3 ML; Start 09/15/18 at 08:00 Levalbuterol (Xopenex Neb) 0.63 mg Q4H RESP THERAPY HHN Last administered on 10/03/18 08:01; Admin Dose 0.63 MG; Start 09/15/18 at 17:00 Levalbuterol (Xopenex Neb) 0.63 mg Q2H RESP THERAPY PRN HHN WHEEZING AND SOB; Start 09/15/18 at 14:00 Collagenase (Santyl) 1 applic DAILY TOP Last administered on 10/03/18 08:18; Ad min Dose 1 APPLIC; Start 09/16/18 at 15:00 Multivitamins Therapeutic (Theragran) 1 tab DAILY PO Last administered on 10/02/18 11:01; Admin Dose 1 TAB; Start 09/19/18 at 12:00 Ascorbic Acid (Vitamin C) 500 mg DAILY PO Last administered on 09/23/18 09:45; Admin Dose 500 MG; Start 09/19/18 at 12:00; Status Hold Zinc Sulfate (Zinc Sulfate) 220 mg DAILY PO Last administered on 09/22/18 08:50; Admin Dose 220 MG; Start 09/19/18 at 12:00; Status Hold Thiamine HCl (Vitamin B1) 50 mg DAILY PO Last administered on 09/23/18 09:45; Admin Dose 50 MG; Start 09/19/18 at 12:00; Status Hold Simethicone (Mylicon) 80 mg Q6H PRN PO DISTENSION/GAS/BLOATING Last administered on 09/22/18 23:50; Admin Dose 80 MG; Start 09/20/18 at 06:30 Diltiazem HCl (Cardizem Cd) 120 mg DAILY PO Last administered on 09/23/18 11:41; Admin Dose 120 MG; Start 09/20/18 at 09:00; Status Hold Zolpidem Tartrate (Ambien) 5 mg HS PRN PO INSOMNIA Last administered on 09/24/18 01:16; Admin Dose 5 MG; Start 09/21/18 at 02:00; Status Hold Phenol (Cepastat Lozenge) 1 lozenge Q1H PRN MT SORE THROAT Last administered on 09/22/18 03:32; Admin Dose 1 LOZENGE; Start 09/22/18 at 01:00 Levofloxacin (Levaquin) 500 mg DAILY@06 PO Last administered on 09/23/18 07:21; Admin Dose 500 MG; Start 09/23/18 at 06:00; Status Hold Metronidazole 100 ml @ 100 mls/hr Q8 IVPB Last administered on 09/23/18 22:03; Admin Dose 100 MLS/HR; Start 09/23/18 at 14:00; Status Hold Meropenem/Sodium Chloride 50 ml @ 100 mls/hr Q8H IVPB Last administered on 10/03/18 01:49; Admin Dose 100 MLS/HR; Start 09/24/18 at 02:30 Hydromorphone HCl (Dilaudid) 0.5 mg Q4H PRN IV SEVERE PAIN LEVEL 7-10 Last administered on 10/03/18 08:38; Admin Dose 0.5 MG; Start 09/24/18 at 03:00 Lorazepam (Ativan) 0.5 mg Q6H PRN IV ANXIETY Last administered on 10/02/18 05:11; Admin Dose 0.5 MG; Start 09/24/18 at 03:00 Pantoprazole (Protonix Iv) 40 mg BID@06,18 IV Last administered on 10/03/18 05:32; Admin Dose 40 MG; Start 09/24/18 at 18:00 Miscellaneous Information 1 ea NOTE XX ; Start 09/25/18 at 22:00 Glucose (Glutose) 15 gm Q15M PRN PO DECREASED GLUCOSE; Start 09/25/18 at 22:00 Glucose (Glutose) 22.5 gm Q15M PRN PO DECREASED GLUCOSE; Start 09/25/18 at 22:00 Dextrose (D50w Syringe) 25 ml Q15M PRN IV DECREASED GLUCOSE Last administered on 09/30/18 01:04; Admin Dose 25 ML; Start 09/25/18 at 22:00 Dextrose (D50w Syringe) 50 ml Q15M PRN IV DECREASED GLUCOSE; Start 09/25/18 at 22:00 Glucagon (Glucagen) 1 mg Q15M PRN IM DECREASED GLUCOSE; Start 09/25/18 at 22:00 Glucose (Glutose) 15 gm Q15M PRN BUCCAL DECREASED GLUCOSE; Start 09/25/18 at 22:00 Mupirocin (Bactroban) 1 applic BID TOP Last administered on 10/03/18 08:19; Admin Dose 1 APPLIC; Start 09/26/18 at 21:00; Stop 10/06/18 at 09:01 Methadone HCl (Methadone Liq) 2 mg Q4 SL Last administered on 10/03/18 01:48; Admin Dose 2 MG; Start 09/28/18 at 09:30 Enoxaparin Sodium (Lovenox) 40 mg DAILY SC Last administered on 10/03/18 08:40; Admin Dose 40 MG; Start 09/30/18 at 15:00 Miscellaneous Information (*Order Clarification Bulletin) MEDICATION REQUIRES CLARIFICATI... Q12 XX Last administered on 10/03/18 08:49; Admin Dose 1 EA; Start 09/30/18 at 21:00 IV Flush (NS 10 ml) 10 ml PRN PRN IV IV PROTOCOL; Start 09/30/18 at 19:30 Total Parenteral Nutrition 1,000 ml @ 60 mls/hr [id number] IV Last administered on 10/03/18 04:05; Admin Dose 60 MLS/HR; Start 10/01/18 at 18:00 Insulin Aspart (Novolog Insulin Pen) NOVOLOG *MILD* ALGORITHM WITH MEALS BEDTIME SC Last administered on 10/03/18 08:36; Admin Dose 2 UNIT; Start 10/01/18 at 21:00 Phenylephrine HCl 250 ml @ 75 mls/hr TITRATE IV Last administered on 10/03/18 05:35; Admin Dose 75 MLS/HR; Start 10/03/18 at 02:30; Stop 10/03/18 at 12:00 Sodium Chloride 1,000 ml @ 50 mls/hr Q20H IV Last administered on 10/03/18 08:37; Admin Dose 50 MLS/HR; Start 10/03/18 at 08:30 Phenylephrine HCl 80 mg/Dextrose 250 ml @ 18.75 mls/ hr TITRATE IV ; Start 10/03/18 at 08:30 PRASHANT HILTON MD Oct 03, 2018 09:03
--- NOTE | 2018-10-03 13:03 | PN ---
Date/Time of Note Date/Time of Note DATE: 10/03/18 TIME: 12:57 Assessment/Plan Lines/Catheters IV Catheter Type (from Nrs): PICC Line Cline in Place (from Nrs): Yes Assessment/Plan Chief Complaint/Hosp Course 1. Perforated terminal ileum with multiple abscesses, patient and son finally agreeable to surgery yesterday s/p lap > open ileocolectomy and drainage of abscesses (10/03). -npo/ngt -abx per ID -supportive -fluids -pressors -drain care 2. Sepsis -as above 3. NSTEMI -medical/cardiac optimization 4. Acute renal insufficiency improved judicious fluid management -avoid nephrotoxic agents 5. Elevated transaminases, history of hep C -Monitor 6. Chronic methadone use: -pain mgt 7. Anemia -monitor Thank you, Subjective 24 Hr Interval Summary s/p Lap>open exploration, ileocolectomy 2nd perforated ileum with abscesses 10/02. On pressor. No bowel function. No fevers, chills, sob, congested cough, cp, palpitations, savage, dizziness, nausea, vomiting, dysuria. Labs noted. Exam/Review of Systems Vital Signs Vitals Vital Signs Date Temp Pulse Resp B/P (MAP) Pulse Ox O2 O2 Flow FiO2 Time Delivery Rate 10/03/18 109 14 100 Nasal 2.0 08:10 Cannula 10/03/18 98/49 (65) 06:45 10/03/18 98.2 04:00 Intake and Output 10/02/18 10/02/18 10/03/18 1515:00 23:00 07:00 IntakeIntake Total 1050 ml 2570.00 ml OutputOutput Total 2470 ml BalanceBalance 1050 ml 100.00 ml Exam Free Text/Dictation Constitutional: alert, oriented, nad Psych: nl mood/affect; No anxiety Head: normocephalic, lacerations Eyes: nl conjunctiva, EOMI, PERRL; No icteric ENMT: nl external ears & nose, mucosa pink and moist, ngt Neck: supple, non-tender, jvd Respiratory: normal air movement; No congested cough, No labored breathing Cardiovascular: regular rate and rhythm, No edema Gastrointestinal: soft, distended (min), tender, octaviano serosang; No rebound, guarding, rigidity Musculoskeletal: nl extremities to inspection; No nl gait and stance, No joint tenderness Extremities: normal pulses Results Result Diagram: 10/03/18 0430 10/03/18 0430 JESSIKA OREILLY MD Oct 03, 2018 13:03
--- NOTE | 2018-10-03 13:03 | CONS ---
Assessment/Plan Assessment/Plan Hospital Course (Demo Recall) Patient is alert looks comfortable no fevers overnight, NG tube to intermittent low wall suction. She is on Fabio-Synephrine drip. WBC 10.2 H&H 7.4 and 24.8 platelets 185 bands 25 BUN 12 creatinine 0.49 Antimicrobials: Meropenem Indwelling: NG tube left-sided RAFAL, PICC line, Cline catheter HEENT: Within normal limits. NECK: Supple. CHEST: Decreased breath sounds at the bases. HEART: S1 S2 ABDOMEN: Distended, bowel sounds hypoactive, mid abdominal dressing intact, NG tube to suction EXTREMITIES: Without cyanosis, clubbing, or edema. Assessment: 1. Septic shock 2. Perforated bowel with multiple abscess and small bowel obstruction, status post laparotomy/open exploration 10/02/2018 3. Bilateral lung consolidations 4. Non-ST elevation [place] 5. COPD Plan: We are going to add vancomycin and fluconazole to the regimen, continue meropenem, follow surgical recommendations Consultation Date/Type/Reason Admit Date/Time Sep 15, 2018 at 03:32 Initial Consult Date 09/24/18 Type of Consult id Requesting Provider: LEOBARDO DC Date/Time of Note DATE: 10/03/18 TIME: 12:58 Exam/Review of Systems Exam Vitals Vital Signs Date Temp Pulse Resp B/P (MAP) Pulse Ox O2 O2 Flow FiO2 Time Delivery Rate 10/03/18 109 14 100 Nasal 2.0 08:10 Cannula 10/03/18 98/49 (65) 06:45 10/03/18 98.2 04:00 Intake and Output 10/02/18 10/02/18 10/03/18 1515:00 23:00 07:00 IntakeIntake Total 1050 ml 2570.00 ml OutputOutput Total 2470 ml BalanceBalance 1050 ml 100.00 ml Results Result Diagram: 10/03/18 0430 10/03/18 0430 Results 24hrs Laboratory Tests Test 10/02/18 18:39 10/02/18 20:30 10/03/18 01:20 10/03/18 04:30 Bedside Glucose 82 81 131 White Blood Count 10.2 Red Blood Count 2.55 L Hemoglobin 7.4 L Hematocrit 24.8 L Mean Corpuscular 97.3 Volume Mean Corpuscular 29.0 Hemoglobin Mean Corpuscular 29.8 L Hemoglobin Concent Red Cell 15.4 H Distribution Width Platelet Count 185 Mean Platelet 11.5 H Volume Immature 0.300 Granulocytes % Neutrophils % Segmented 71 Neutrophils % (Manual) Band Neutrophils % 25 H (Manual) Lymphocytes % Lymphocytes % 2 L (Manual) Monocytes % Monocytes % 2 (Manual) Eosinophils % Basophils % Nucleated Red 0.0 Blood Cells % Immature 0.030 Granulocytes # Neutrophils # Neutrophils # 7.5 (Manual) Band Neutrophils # 2.5 H Lymphocytes 0.2 L (Manual) Lymphocytes # Monocytes # Monocytes # 0.2 L (Manual) Eosinophils # Basophils # Nucleated Red Blood Cells # Platelet Estimate NORMAL Giant Platelets 6 H Polychromasia 3+ Poikilocytosis 1+ Anisocytosis 2+ Macrocytosis 2+ Sodium Level 134 L Potassium Level 3.8 Chloride Level 99 Carbon Dioxide 35 H Level Anion Gap 0 L Blood Urea 12 Nitrogen Creatinine 0.49 Est Glomerular > 60 Filtrat Rate mL/min Glucose Level 89 # Calcium Level 7.8 L Phosphorus Level 3.3 Magnesium Level 1.7 Test 10/03/18 05:00 10/03/18 08:33 Blood Gas Specimen Blood arterial Source Arterial Blood 10/03/2018 4:37:45 Date Drawn AM Arterial Blood pH 7.375 (Temp corrected) Arterial Blood 57.9 H pCO2 (Temp correct) Arterial Blood pO2 98.8 (Temp corrected) Arterial Blood 33.1 H HCO3 Arterial Blood 6.9 H Base Excess Arterial Blood 97.6 Oxygen Saturation Flip Test ACCEPTAB Arterial Blood Gas Right Radial Puncture Site Arterial 0.6 Blood Carboxyhemog lobin Arterial Blood 0.5 Methemoglobin Blood Gas A-a O2 47.1 H Differential Oxyhemoglobin 96.5 Percent Blood Gas 37.0 Temperature Blood Gas Modality NASAL CANNULA FiO2 30.0 Blood Gas Notified LW Whom Blood Gas Notified 10/03/2018 4:48:28 Time AM Bedside Glucose 182 Medications Medication Current Medications IV Flush (NS 3 ml) 3 ml PER PROTOCOL IV ; Start 09/15/18 at 07:30 Ondansetron HCl (Zofran Inj) 4 mg Q6H PRN IV NAUSEA/VOMITING Last administered on 09/29/18at 13:19; Admin Dose 4 MG; Start 09/15/18 at 07:30 Acetaminophen (Tylenol Tab) 650 mg Q6H PRN PO .PAIN 1-3 OR TEMP Last administered on 09/16/18 21:56; Admin Dose 650 MG; Start 09/15/18 at 07:30 Baclofen (Lioresal) 10 mg BID PO Last administered on 09/23/18 09:45; Admin Dose 10 MG; Start 09/15/18 at 09:00; Status Hold Buspirone HCl (Buspar) 10 mg BID PO Last administered on 09/23/18 11:44; Admin Dose 10 MG; Start 09/15/18 at 09:00; Status Hold Calcium Carbonate (Oyster Shell Calcium) 1.25 gm BID PO Last administered on 09/23/18 11:44; Admin Dose 1.25 GM; Start 09/15/18 at 09:00; Status Hold Clonazepam (Klonopin) 0.5 mg DAILY PRN PO ANXIETY Last administered on 09/23/18 02:04; Admin Dose 0.5 MG; Start 09/15/18 at 07:30; Status Hold Docusate Sodium (Colace) 100 mg BID PO Last administered on 09/23/18 09:43; Admin Dose 100 MG; Start 09/15/18 at 09:00; Status Hold Rifaximin (Xifaxan) 550 mg BID PO Last administered on 09/22/18 21:42; Admin Dose 550 MG; Start 09/15/18 at 09:00; Status Hold Sertraline HCl (Zoloft) 100 mg DAILY PO ; Start 09/15/18 at 09:00; Status Hold Fluticasone/ Vilanterol (Breo Ellipta 200-25 Mcg Inh) 1 inh DAILY INH Last administered on 10/03/18 08:19; Admin Dose 1 INH; Start 09/15/18 at 09:00 Albuterol/ Ipratropium (Duoneb) 3 ml Q3H RESP THERAPY PRN HHN WHEEZING AND SOB Last administered on 09/21/18 21:08; Admin Dose 3 ML; Start 09/15/18 at 08:00 Levalbuterol (Xopenex Neb) 0.63 mg Q4H RESP THERAPY HHN Last administered on 10/03/18 08:01; Admin Dose 0.63 MG; Start 09/15/18 at 17:00 Levalbuterol (Xopenex Neb) 0.63 mg Q2H RESP THERAPY PRN HHN WHEEZING AND SOB; Start 09/15/18 at 14:00 Collagenase (Santyl) 1 applic DAILY TOP Last administered on 10/03/18 08:18; Admin Dose 1 APPLIC; Start 09/16/18 at 15:00 Multivitamins Therapeutic (Theragran) 1 tab DAILY PO Last administered on 10/02/18 11:01; Admin Dose 1 TAB; Start 09/19/18 at 12:00 Ascorbic Acid (Vitamin C) 500 mg DAILY PO Last administered on 09/23/18 09:45; Admin Dose 500 MG; Start 09/19/18 at 12:00; Status Hold Zinc Sulfate (Zinc Sulfate) 220 mg DAILY PO Last administered on 09/22/18 08:50; Admin Dose 220 MG; Start 09/19/18 at 12:00; Status Hold Thiamine HCl (Vitamin B1) 50 mg DAILY PO Last administered on 09/23/18 09:45; Admin Dose 50 MG; Start 09/19/18 at 12:00; Status Hold Simethicone (Mylicon) 80 mg Q6H PRN PO DISTENSION/GAS/BLOATING Last administered on 09/22/18 23:50; Admin Dose 80 MG; Start 09/20/18 at 06:30 Diltiazem HCl (Cardizem Cd) 120 mg DAILY PO Last administered on 09/23/18 11:41; Admin Dose 120 MG; Start 09/20/18 at 09:00; Status Hold Zolpidem Tartrate (Ambien) 5 mg HS PRN PO INSOMNIA Last administered on 09/24/18 01:16; Admin Dose 5 MG; Start 09/21/18 at 02:00; Status Hold Phenol (Cepastat Lozenge) 1 lozenge Q1H PRN MT SORE THROAT Last administered on 09/22/18 03:32; Admin Dose 1 LOZENGE; Start 09/22/18 at 01:00 Levofloxacin (Levaquin) 500 mg DAILY@06 PO Last administered on 09/23/18 07:21; Admin Dose 500 MG; Start 09/23/18 at 06:00; Status Hold Metronidazole 100 ml @ 100 mls/hr Q8 IVPB Last administered on 09/23/18 22:03; Admin Dose 100 MLS/HR; Start 09/23/18 at 14:00; Status Hold Meropenem/Sodium Chloride 50 ml @ 100 mls/hr Q8H IVPB Last administered on 10/03/18at 01:49; Admin Dose 100 MLS/HR; Start 09/24/18 at 02:30 Hydromorphone HCl (Dilaudid) 0.5 mg Q4H PRN IV SEVERE PAIN LEVEL 7-10 Last administered on 10/03/18at 08:38; Admin Dose 0.5 MG; Start 09/24/18 at 03:00 Lorazepam (Ativan) 0.5 mg Q6H PRN IV ANXIETY Last administered on 10/02/18 05:11; Admin Dose 0.5 MG; Start 09/24/18 at 03:00 Pantoprazole (Protonix Iv) 40 mg BID@06,18 IV Last administered on 10/03/18 05:32; Admin Dose 40 MG; Start 09/24/18 at 18:00 Miscellaneous Information 1 ea NOTE XX ; Start 09/25/18 at 22:00 Glucose (Glutose) 15 gm Q15M PRN PO DECREASED GLUCOSE; Start 09/25/18 at 22:00 Glucose (Glutose) 22.5 gm Q15M PRN PO DECREASED GLUCOSE; Start 09/25/18 at 22:00 Dextrose (D50w Syringe) 25 ml Q15M PRN IV DECREASED GLUCOSE Last administered on 09/30/18at 01:04; Admin Dose 25 ML; Start 09/25/18 at 22:00 Dextrose (D50w Syringe) 50 ml Q15M PRN IV DECREASED GLUCOSE; Start 09/25/18 at 22:00 Glucagon (Glucagen) 1 mg Q15M PRN IM DECREASED GLUCOSE; Start 09/25/18 at 22:00 Glucose (Glutose) 15 gm Q15M PRN BUCCAL DECREASED GLUCOSE; Start 09/25/18 at 22:00 Mupirocin (Bactroban) 1 applic BID TOP Last administered on 10/03/18 08:19; Admin Dose 1 APPLIC; Start 09/26/18 at 21:00; Stop 10/06/18 at 09:01 Methadone HCl (Methadone Liq) 2 mg Q4 SL Last administered on 10/03/18at 01:48; Admin Dose 2 MG; Start 09/28/18 at 09:30 Enoxaparin Sodium (Lovenox) 40 mg DAILY SC Last administered on 10/03/18 08:40; Admin Dose 40 MG; Start 09/30/18 at 15:00 Miscellaneous Information (*Order Clarification Bulletin) MEDICATION REQUIRES CLARIFICATI... Q12 XX Last administered on 10/03/18 08:49; Admin Dose 1 EA; Start 09/30/18 at 21:00 IV Flush (NS 10 ml) 10 ml PRN PRN IV IV PROTOCOL; Start 09/30/18 at 19:30 Total Parenteral Nutrition 1,000 ml @ 60 mls/hr [id number] IV Last administered on 10/03/18 04:05; Admin Dose 60 MLS/HR; Start 10/01/18 at 18:00 Insulin Aspart (Novolog Insulin Pen) NOVOLOG *MILD* ALGORITHM WITH MEALS BEDTIME SC Last administered on 10/03/18 08:36; Admin Dose 2 UNIT; Start 10/01/18 at 21:00 Sodium Chloride 1,000 ml @ 50 mls/hr Q20H IV Last administered on 10/03/18 08:37; Admin Dose 50 MLS/HR; Start 10/03/18 at 08:30 Phenylephrine HCl 80 mg/Dextrose 250 ml @ 18.75 mls/ hr TITRATE IV ; Start 10/03/18 at 08:30 Diagnostic Test (Pha) (Accu-Chek) 1 ea Q4 XX ; Start 10/03/18 at 13:00 SKY BENAVIDES NP Oct 03, 2018 13:03
[2018-10-03] MEDS: ACCU-CHEK XX SCH ×3 (13:06→21:12)
[2018-10-03] MEDS ORDERED: VANCOMYCIN IV PER PHARMACY XX SCH (13:30)
[2018-10-03] MEDS ORDERED: VANCOMYCIN 1 GM 250 ML IVPB SCH (14:00)
[2018-10-03] MEDS: FLUCONAZOLE 100 MG/50 ML (PMX) 50 ML IVPB SCH (15:30)
[2018-10-03] MEDS: LORAZEPAM 2 MG INJ IV PRN (17:33)
[2018-10-04] VITALS (34 sets, daily range): BP systolic 85–141; BP diastolic 54–93; PULSE 99–128; RESP 14–27
[2018-10-04] MEDS: LORAZEPAM 2 MG INJ IV PRN ×3 (00:46→17:51)
[2018-10-04] MEDS: METHADONE (1 MG/ML 5 ML PO UD SYG) SL SCH ×6 (00:46→21:29)
[2018-10-04] MEDS: ACCU-CHEK XX SCH ×6 (01:07→21:30)
[2018-10-04] MEDS: LEVALBUTEROL (NEB) 0.63 MG/3 ML AMP HHN SCH ×6 (01:26→20:01)
[2018-10-04] MEDS: MEROPENEM 1 GM/50ML(PMX) 50 ML IVPB SCH ×3 (02:17→17:39)
[2018-10-04] MEDS: SOD CHLORIDE 0.9% 1,000 ML IV SCH (04:30)
[2018-10-04] MEDS: PANTOPRAZOLE 40 MG INJ IV SCH ×2 (05:15→17:39)
[2018-10-04] MEDS: INSULIN ASPART [NOVOLOG] 3 ML PEN SC SCH ×4 (07:35→21:00)
[2018-10-04] MEDS: MULTIVITAMINS THERAPEUTIC TAB PO SCH (08:02)
[2018-10-04] MEDS: FLUTICASONE/VILANTEROL 200-25 INH DEVICE INH SCH (08:02)
[2018-10-04] MEDS: MUPIROCIN 2% 22 GM OINT TOP SCH ×2 (08:02→21:29)
[2018-10-04] MEDS: COLLAGENASE 5 GM (UD JAR) TOP SCH (08:03)
[2018-10-04] MEDS: BALSAM PERU/CASTOR OIL 60 GM TUBE TOP SCH ×2 (08:03→21:29)
[2018-10-04] MEDS: ENOXAPARIN 40 MG/0.4 ML SYG SC SCH (08:05)
--- NOTE | 2018-10-04 08:23 | PN ---
Date/Time of Note Date/Time of Note DATE: 10/04/18 TIME: : Assessment/Plan VTE Prophylaxis Risk score (from Ns)>0 risk: 11 SCD applied (from Nsg): Yes Pharmacological prophylaxis: LMWH Lines/Catheters IV Catheter Type (from Nrsg): PICC Line Central line still needed: Yes Urinary Cath still in place: Yes Reason Cath still needed: skin wounds contaminated by urine Assessment/Plan Assessment/Plan 68-year-old woman with history of COPD, PE in May 2018, CKD, admitted for COPD exacerbation and found to have ileum perforation with abdominal abscess. #Small bowel perforation #Abdominal abscess - Weeks of abdominal distension, tenderness, bloating. - CT on 09/23 first showed pneumoperitoneum, taken to OR by Dr. Schumacher on 10/02, found to have perforated terminal ileum with abdominal abscess s/p drainage - Etiology is unclear. - ID following. - NPO, NG tube to low intermittent suction. #Anemia - Likely due to abdominal perforation - Transfuse to Hgb>7 or for symptomatic anemia # Hypoxic and hypercapnic respiratory failure: Resolved. - For now continue supplemental oxygen, bronchodilators, broad-spectrum antibiotics - PE in May 2018, currently on lovenox; eventually will transition back to Eliquis. #MRSA colonization of the nares - On mupirocin GI: PPI DVT: lovenox Result Diagram: 10/04/18 0600 10/04/18 0600 Subjective 24 Hr Interval Summary Free Text/Dictation Overnight she went into respiratory distress and was placed on nonrebreather, this may have been due to anxiety, she is comfortable on nasal cannula this morning. Weaned off pressors. She is passing gas and hungry. Lots of output from the RAFAL drain, about 800cc. Not much output from NG tube. Pain well controlled. Exam/Review of Systems Exam Vitals Vital Signs Date Temp Pulse Resp B/P (MAP) Pulse Ox O2 O2 Flow FiO2 Time Delivery Rate 10/04/18 109 21 99/56 (70) 97 Nasal 2.0 06:00 Cannula 10/04/18 97.7 04:00 Intake and Output 10/03/18 10/03/18 10/04/18 1515:00 23:00 07:00 IntakeIntake Total 150 ml 1009.76 ml 1443.75 ml OutputOutput Total 950 ml 860 ml 640 ml BalanceBalance -800 ml 149.76 ml 803.75 ml Exam Gen: Thin frail appearing woman lying in bed, awake and alert. Head: Atraumatic, clear oropharynx Eyes: Normal Conjunctiva, ENT: Normal External Ears, Nose and Mouth. Moist mucous membranes. Neck: Full range of motion. No meningismus. Resp: Clear to auscultation bilaterally Cardio: Regular rate and rhythm, no murmurs Abd: Distended, soft, abdomen. Midline incision dressing clean and dry. Lap incisions clean and dry. Bowel sounds heard. RAFAL drain with serosanguineous output. Ext: No bilateral lower extremity edema Results Results 24hrs Laboratory Tests Test 10/03/18 08:33 10/03/18 12:59 10/03/18 17:46 10/03/18 20:10 Bedside Glucose 182 194 131 Hemoglobin 6.2 *L Hematocrit 20.0 L Test 10/03/18 20:52 10/04/18 00:54 10/04/18 01:00 10/04/18 04:48 Bedside Glucose 139 129 Hemoglobin 7.2 L Hematocrit 22.8 L Lab Scanned Report BLOOD TRANSFUSION Test 10/04/18 05:14 10/04/18 06:00 10/04/18 07:57 Bedside Glucose 130 121 White Blood Count 7.9 # Red Blood Count 3.04 L Hemoglobin 9.0 #L Hematocrit 28.0 #L Mean Corpuscular 92.1 Volume Mean Corpuscular 29.6 Hemoglobin Mean Corpuscular 32.1 Hemoglobin Concent Red Cell 16.4 H Distribution Width Platelet Count 135 #L Mean Platelet 10.9 H Volume Immature 0.400 Granulocytes % Neutrophils % 73.7 Lymphocytes % 17.2 Monocytes % 5.4 Eosinophils % 2.8 Basophils % 0.5 Nucleated Red Blood 0.0 Cells % Immature 0.030 Granulocytes # Neutrophils # 5.8 Lymphocytes # 1.4 Monocytes # 0.4 Eosinophils # 0.2 Basophils # 0.0 Nucleated Red Blood 0.0 Cells # Sodium Level 136 Potassium Level 3.9 Chloride Level 103 Carbon Dioxide 34 H Level Anion Gap 0 L Blood Urea Nitrogen 16 Creatinine 0.45 Est Glomerular > 60 Filtrat Rate mL/min Glucose Level 129 # Calcium Level 7.1 L Phosphorus Level 2.9 Magnesium Level 1.7 Medications Medication Current Medications IV Flush (NS 3 ml) 3 ml PER PROTOCOL IV ; Start 09/15/18 at 07:30 Ondansetron HCl (Zofran Inj) 4 mg Q6H PRN IV NAUSEA/VOMITING Last administered on 09/29/18 13:19; Admin Dose 4 MG; Start 09/15/18 at 07:30 Acetaminophen (Tylenol Tab) 650 mg Q6H PRN PO .PAIN 1-3 OR TEMP Last administered on 09/16/18 21:56; Admin Dose 650 MG; Start 09/15/18 at 07:30 Baclofen (Lioresal) 10 mg BID PO Last administered on 09/23/18 09:45; Admin Dose 10 MG; Start 09/15/18 at 09:00; Status Hold Buspirone HCl (Buspar) 10 mg BID PO Last administered on 09/23/18 11:44; Admin Dose 10 MG; Start 09/15/18 at 09:00; Status Hold Calcium Carbonate (Oyster Shell Calcium) 1.25 gm BID PO Last administered on 09/23/18 11:44; Admin Dose 1.25 GM; Start 09/15/18 at 09:00; Status Hold Clonazepam (Klonopin) 0.5 mg DAILY PRN PO ANXIETY Last administered on 09/23/18 02:04; Admin Dose 0.5 MG; Start 09/15/18 at 07:30; Status Hold Docusate Sodium (Colace) 100 mg BID PO Last administered on 09/23/18 09:43; Admin Dose 100 MG; Start 09/15/18 at 09:00; Status Hold Rifaximin (Xifaxan) 550 mg BID PO Last administered on 09/22/18 21:42; Admin Dose 550 MG; Start 09/15/18 at 09:00; Status Hold Sertraline HCl (Zoloft) 100 mg DAILY PO ; Start 09/15/18 at 09:00; Status Hold Fluticasone/ Vilanterol (Breo Ellipta 200-25 Mcg Inh) 1 inh DAILY INH Last administered on 10/04/18 08:02; Admin Dose 1 INH; Start 09/15/18 at 09:00 Albuterol/ Ipratropium (Duoneb) 3 ml Q3H RESP THERAPY PRN HHN WHEEZING AND SOB Last administered on 09/21/18 21:08; Admin Dose 3 ML; Start 09/15/18 at 08:00 Levalbuterol (Xopenex Neb) 0.63 mg Q4H RESP THERAPY HHN Last administered on 10/04/18 05:20; Admin Dose 0.63 MG; Start 09/15/18 at 17:00 Levalbuterol (Xopenex Neb) 0.63 mg Q2H RESP THERAPY PRN HHN WHEEZING AND SOB; Start 09/15/18 at 14:00 Collagenase (Santyl) 1 applic DAILY TOP Last administered on 10/04/18 08:03; Admin Dose 1 APPLIC; Start 09/16/18 at 15:00 Multivitamins Therapeutic (Theragran) 1 tab DAILY PO Last administered on 10/02/18 11:01; Admin Dose 1 TAB; Start 09/19/18 at 12:00 Ascorbic Acid (Vitamin C) 500 mg DAILY PO Last administered on 09/23/18 09:45; Admin Dose 500 MG; Start 09/19/18 at 12:00; Status Hold Zinc Sulfate (Zinc Sulfate) 220 mg DAILY PO Last administered on 09/22/18 08:50; Admin Dose 220 MG; Start 09/19/18 at 12:00; Status Hold Thiamine HCl (Vitamin B1) 50 mg DAILY PO Last administered on 09/23/18 09:45; Admin Dose 50 MG; Start 09/19/18 at 12:00; Status Hold Simethicone (Mylicon) 80 mg Q6H PRN PO DISTENSION/GAS/BLOATING Last adm inistered on 09/22/18 23:50; Admin Dose 80 MG; Start 09/20/18 at 06:30 Diltiazem HCl (Cardizem Cd) 120 mg DAILY PO Last administered on 09/23/18 11:41; Admin Dose 120 MG; Start 09/20/18 at 09:00; Status Hold Zolpidem Tartrate (Ambien) 5 mg HS PRN PO INSOMNIA Last administered on 09/24/18 01:16; Admin Dose 5 MG; Start 09/21/18 at 02:00; Status Hold Phenol (Cepastat Lozenge) 1 lozenge Q1H PRN MT SORE THROAT Last administered on 09/22/18 03:32; Admin Dose 1 LOZENGE; Start 09/22/18 at 01:00 Levofloxacin (Levaquin) 500 mg DAILY@06 PO Last administered on 09/23/18at 07:21; Admin Dose 500 MG; Start 09/23/18 at 06:00; Status Hold Metronidazole 100 ml @ 100 mls/hr Q8 IVPB Last administered on 09/23/18at 22:03; Admin Dose 100 MLS/HR; Start 09/23/18 at 14:00; Status Hold Meropenem/Sodium Chloride 50 ml @ 100 mls/hr Q8H IVPB Last administered on 10/04/18at 02:17; Admin Dose 100 MLS/HR; Start 09/24/18 at 02:30 Hydromorphone HCl (Dilaudid) 0.5 mg Q4H PRN IV SEVERE PAIN LEVEL 7-10 Last a dministered on 10/03/18at 14:27; Admin Dose 0.5 MG; Start 09/24/18 at 03:00 Lorazepam (Ativan) 0.5 mg Q6H PRN IV ANXIETY Last administered on 10/04/18at 08:04; Admin Dose 0.5 MG; Start 09/24/18 at 03:00 Pantoprazole (Protonix Iv) 40 mg BID@06,18 IV Last administered on 10/04/18at 05:15; Admin Dose 40 MG; Start 09/24/18 at 18:00 Miscellaneous Information 1 ea NOTE XX ; Start 09/25/18 at 22:00 Glucose (Glutose) 15 gm Q15M PRN PO DECREASED GLUCOSE; Start 09/25/18 at 22:00 Glucose (Glutose) 22.5 gm Q15M PRN PO DECREASED GLUCOSE; Start 09/25/18 at 22:00 Dextrose (D50w Syringe) 25 ml Q15M PRN IV DECREASED GLUCOSE Last administered on 09/30/18at 01:04; Admin Dose 25 ML; Start 09/25/18 at 22:00 Dextrose (D50w Syringe) 50 ml Q15M PRN IV DECREASED GLUCOSE; Start 09/25/18 at 22:00 Glucagon (Glucagen) 1 mg Q15M PRN IM DECREASED GLUCOSE; Start 09/25/18 at 22:00 Glucose (Glutose) 15 gm Q15M PRN BUCCAL DECREASED GLUCOSE; Start 09/25/18 at 22:00 Mupirocin (Bactroban) 1 applic BID TOP Last administered on 10/04/18 08:02; Admin Dose 1 APPLIC; Start 09/26/18 at 21:00; Stop 10/06/18 at 09:01 Methadone HCl (Methadone Liq) 2 mg Q4 SL Last administered on 10/04/18 08:04; Admin Dose 2 MG; Start 09/28/18 at 09:30 Enoxaparin Sodium (Lovenox) 40 mg DAILY SC Last administered on 10/04/18 08:05; Admin Dose 40 MG; Start 09/30/18 at 15:00 Miscellaneous Information (*Order Clarification Bulletin) MEDICATION REQUIRES CLARIFICATI... Q12 XX Last administered on 10/03/18 08:49; Admin Dose 1 EA; Start 09/30/18 at 21:00 IV Flush (NS 10 ml) 10 ml PRN PRN IV IV PROTOCOL; Start 09/30/18 at 19:30 Total Parenteral Nutrition 1,000 ml @ 60 mls/hr [id number] IV Last administered on 10/03/18 20:52; Admin Dose 60 MLS/HR; Start 10/01/18 at 18:00 Insulin Aspart (Novolog Insulin Pen) NOVOLOG *MILD* ALGORITHM WITH MEALS BEDTIME SC Last administered on 10/03/18 13:02; Admin Dose 2 UNIT; Start 10/01/18 at 21:00 Sodium Chloride 1,000 ml @ 25 mls/hr Q24H IV Last administered on 10/03/18 08:37; Admin Dose 50 MLS/HR; Start 10/03/18 at 08:30 Phenylephrine HCl 80 mg/Dextrose 250 ml @ 18.75 mls/ hr TITRATE IV Last adm inistered on 10/03/18 21:44; Admin Dose 5.63 MLS/HR; Start 10/03/18 at 08:30 Diagnostic Test (Pha) (Accu-Chek) 1 ea Q4 XX Last administered on 10/04/18 08:03; Admin Dose 1 EA; Start 10/03/18 at 13:00 Vancomycin HCl (Vanco Iv Per Pharmacy) VANCOMYCIN PER PHARMACY PER PROTOCOL XX ; Start 10/03/18 at 13:30 Fluconazole/ Sodium Chloride 50 ml @ 50 mls/hr Q24H IVPB Last administered on 8/5/19at 15:30; Admin Dose 50 MLS/HR; Start 10/03/18 at 13:30 Vancomycin HCl 100 ml @ 100 mls/hr Q24H IVPB ; Start 10/04/18 at 14:00 PRASHANT HILTON MD Oct 04, 2018 08:23
--- NOTE | 2018-10-04 08:25 | PN ---
DATE: 10/04/2018 SUBJECTIVE: The patient is stable, currently off pressor support. The patient's urinary output has improved. No other events noted. OBJECTIVE: VITAL SIGNS: Blood pressure, respiration 21, pulse 109, temperature 97.7. HEENT: Head is normocephalic. NECK: Supple. HEART: Regular rate. LUNGS: Show diminished breath sounds at the base. ABDOMEN: Soft, nontender to palpation without rebound or guarding. EXTREMITIES: Negative for clubbing, cyanosis, no edema. DERMATOLOGIC: No rashes. MUSCULOSKELETAL: No joint effusion. NEUROLOGIC: No change in exam. MEDICATIONS: Have been reviewed. LABORATORY DATA: Has been reviewed. IMAGING STUDIES: Have been reviewed. ASSESSMENT AND PLAN: 1. Nonoliguric acute kidney injury. Etiology is secondary to hemodynamics. Urinary output has impr alethea. Continue current treatment plan, supportive care, renally dose all meds. 2. Hypomagnesemia, hypophosphatemia, improved. Continue to monitor. 3. Small-bowel obstruction status post laparotomy with partial colectomy. Continue to monitor. Fol low up with general surgery. 4. Septic shock secondary to perforated bowel. The patient is currently off pressor support, contin ue antibiotics, IV fluids. 5. Anemia. Continue to monitor closely. 6. Acute encephalopathy. Etiology is toxic metabolic. 7. Nutrition. Continue total parenteral nutrition. 8. Mild hyponatremia. Continue to monitor. 9. History of hepatitis C. Dictated By: RICHARD ORTIZ DO NR/NTS Conf#: [id number] DID#: [id number] CC: GERALDO VARGAS MD;*EndCC*
--- NOTE | 2018-10-04 09:12 | CONS ---
Assessment/Plan Assessment/Plan Assessment/Plan (Daily) Patient is currently on TPN. Assessment and recommendations; 1. Patient initially admitted for acute bronchitis and developed acute abdomen due to bowel perforation requiring laparotomy after the patient finally consented after a week. 2. Anemia and thrombocytopenia. Status post 2 units packed RBC transfusion yesterday. Discontinue some cutaneous Lovenox. Start SCDs. Continue current supportive care. Consultation Date/Type/Reason Admit Date/Time Sep 15, 2018 at 03:32 Initial Consult Date 09/15/18 Type of Consult Pulmonary Patient is complaining of diarrhea as well as significant left lower quadrant abdominal pain. Denies any fever, chills, any vomiting. Shortness of breath has resolved. General exam; elderly female, laying in bed. H EENT exam; supple no JVD. No lymphadenopathy. Midline trachea. No thy romegaly. Pharynx is clear. Patient is edentulous. Chest exam; diminished but clear breath sounds. S1-S2 audible, no murmurs. Regular rhythm. Abdomen exam; soft, there is left lower quadrant tenderness , bowel sounds audible. Extremity exam; no peripheral edema. BUILDING RIGGER exam; patient is awake alert exhibiting no focal deficit. Assessment and recommendations; 1. Patient admitted with COPD exacerbation with interval improvement. 2. Significant spike and leukocytosis with abdominal pain as well as diarrhea. Add Flagyl 5 mg IV every [address] of abdomen pelvis with contrast. Obtain surgical consult. Requesting Provider: LEOBARDO DC Date/Time of Note DATE: 10/04/18 TIME: 09:10 24 HR Interval Summary Free Text/Dictation Patient's condition is continually improving. Remains completely awake and lisbeth rt. Patient also has improved hemodynamically and is off phenylephrine drip. Patient also reporting significant reduction in abdominal pain. Denies any shortness of breath. General exam; elderly woman, laying comfortably in bed. Awake and alert. Currently in no distress. Exam/Review of Systems Exam Vitals Vital Signs Date Temp Pulse Resp B/P (MAP) Pulse Ox O2 O2 Flow FiO2 Time Delivery Rate 10/04/18 Nasal 2.0 08:00 Cannula 10/04/18 109 21 99/56 (70) 97 06:00 10/04/18 97.7 04:00 Intake and Output 10/03/18 10/03/18 10/04/18 1515:00 23:00 07:00 IntakeIntake Total 150 ml 1009.76 ml 1443.75 ml OutputOutput Total 950 ml 860 ml 640 ml BalanceBalance -800 ml 149.76 ml 803.75 ml Exam H ENT exam; supple neck, no JVD. No lymphadenopathy. Midline trachea. No thy romegaly. Patient is orally intubated. Edentulous. Nasogastric tube in place. Chest exam; clear to auscultation. S1-S2 audible, no murmurs. Regular rhythm. Patient does have kyphoscoliosis. Abdomen exam; soft, minimally tender. Bowel sounds are sluggish. Colostomy in place. Midline dressing in place. Extremity exam; no peripheral edema. BUILDING RIGGER exam; no focal deficit. Results Result Diagram: 10/04/18 0600 10/04/18 0600 Results 24hrs Laboratory Tests Test 10/03/18 12:59 10/03/18 17:46 10/03/18 20:10 10/03/18 20:52 Bedside Glucose 194 131 139 Hemoglobin 6.2 *L Hematocrit 20.0 L Test 10/04/18 00:54 10/04/18 01:00 10/04/18 04:48 10/04/18 05:14 Bedside Glucose 129 130 Hemoglobin 7.2 L Hematocrit 22.8 L Lab Scanned Report BLOOD TRANSFUSION Test 10/04/18 06:00 10/04/18 07:57 White Blood Count 7.9 # Red Blood Count 3.04 L Hemoglobin 9.0 #L Hematocrit 28.0 #L Mean Corpuscular 92.1 Volume Mean Corpuscular 29.6 Hemoglobin Mean Corpuscular 32.1 Hemoglobin Concent Red Cell 16.4 H Distribution Width Platelet Count 135 #L Mean Platelet 10.9 H Volume Immature 0.400 Granulocytes % Neutrophils % 73.7 Lymphocytes % 17.2 Monocytes % 5.4 Eosinophils % 2.8 Basophils % 0.5 Nucleated Red Blood 0.0 Cells % Immature 0.030 Granulocytes # Neutrophils # 5.8 Lymphocytes # 1.4 Monocytes # 0.4 Eosinophils # 0.2 Basophils # 0.0 Nucleated Red Blood 0.0 Cells # Sodium Level 136 Potassium Level 3.9 Chloride Level 103 Carbon Dioxide 34 H Level Anion Gap 0 L Blood Urea Nitrogen 16 Creatinine 0.45 Est Glomerular > 60 Filtrat Rate mL/min Glucose Level 129 # Calcium Level 7.1 L Phosphorus Level 2.9 Magnesium Level 1.7 Bedside Glucose 121 Medications Medication Current Medications IV Flush (NS 3 ml) 3 ml PER PROTOCOL IV ; Start 09/15/18 at 07:30 Ondansetron HCl (Zofran Inj) 4 mg Q6H PRN IV NAUSEA/VOMITING Last administered on 09/29/18 13:19; Admin Dose 4 MG; Start 09/15/18 at 07:30 Acetaminophen (Tylenol Tab) 650 mg Q6H PRN PO .PAIN 1-3 OR TEMP Last administered on 09/16/18 21:56; Admin Dose 650 MG; Start 09/15/18 at 07:30 Baclofen (Lioresal) 10 mg BID PO Last administered on 09/23/18 09:45; Admin Dose 10 MG; Start 09/15/18 at 09:00; Status Hold Buspirone HCl (Buspar) 10 mg BID PO Last administered on 09/23/18 11:44; Admin Dose 10 MG; Start 09/15/18 at 09:00; Status Hold Calcium Carbonate (Oyster Shell Calcium) 1.25 gm BID PO Last administered on 09/23/18 11:44; Admin Dose 1.25 GM; Start 09/15/18 at 09:00; Status Hold Clonazepam (Klonopin) 0.5 mg DAILY PRN PO ANXIETY Last administered on 09/23/18 02:04; Admin Dose 0.5 MG; Start 09/15/18 at 07:30; Status Hold Docusate Sodium (Colace) 100 mg BID PO Last administered on 09/23/18 09:43; Admin Dose 100 MG; Start 09/15/18 at 09:00; Status Hold Rifaximin (Xifaxan) 550 mg BID PO Last administered on 09/22/18 21:42; Admin Dose 550 MG; Start 09/15/18 at 09:00; Status Hold Sertraline HCl (Zoloft) 100 mg DAILY PO ; Start 09/15/18 at 09:00; Status Hold Fluticasone/ Vilanterol (Breo Ellipta 200-25 Mcg Inh) 1 inh DAILY INH Last administered on 10/04/18 08:02; Admin Dose 1 INH; Start 09/15/18 at 09:00 Albuterol/ Ipratropium (Duoneb) 3 ml Q3H RESP THERAPY PRN HHN WHEEZING AND SOB Last administered on 09/21/18 21:08; Admin Dose 3 ML; Start 09/15/18 at 08:00 Levalbuterol (Xopenex Neb) 0.63 mg Q4H RESP THERAPY HHN Last administered on 10/04/18 05:20; Admin Dose 0.63 MG; Start 09/15/18 at 17:00 Levalbuterol (Xopenex Neb) 0.63 mg Q2H RESP THERAPY PRN HHN WHEEZING AND SOB; Start 09/15/18 at 14:00 Collagenase (Santyl) 1 applic DAILY TOP Last administered on 10/04/18 08:03; Admin Dose 1 APPLIC; Start 09/16/18 at 15:00 Multivitamins Therapeutic (Theragran) 1 tab DAILY PO Last administered on 10/02/18 11:01; Admin Dose 1 TAB; Start 09/19/18 at 12:00 Ascorbic Acid (Vitamin C) 500 mg DAILY PO Last administered on 09/23/18 09:45; Admin Dose 500 MG; Start 09/19/18 at 12:00; Status Hold Zinc Sulfate (Zinc Sulfate) 220 mg DAILY PO Last administered on 09/22/18 08:50; Admin Dose 220 MG; Start 09/19/18 at 12:00; Status Hold Thiamine HCl (Vitamin B1) 50 mg DAILY PO Last administered on 09/23/18 09:45; Admin Dose 50 MG; Start 09/19/18 at 12:00; Status Hold Simethicone (Mylicon) 80 mg Q6H PRN PO DISTENSION/GAS/BLOATING Last administered on 09/22/18 23:50; Admin Dose 80 MG; Start 09/20/18 at 06:30 Diltiazem HCl (Cardizem Cd) 120 mg DAILY PO Last administered on 09/23/18 11:41; Admin Dose 120 MG; Start 09/20/18 at 09:00; Status Hold Zolpidem Tartrate (Ambien) 5 mg HS PRN PO INSOMNIA Last administered on 09/24/18 01:16; Admin Dose 5 MG; Start 09/21/18 at 02:00; Status Hold Phenol (Cepastat Lozenge) 1 lozenge Q1H PRN MT SORE THROAT Last administered on 09/22/18at 03:32; Admin Dose 1 LOZENGE; Start 09/22/18 at 01:00 Levofloxacin (Levaquin) 500 mg DAILY@06 PO Last administered on 09/23/18at 07:21; Admin Dose 500 MG; Start 09/23/18 at 06:00; Status Hold Metronidazole 100 ml @ 100 mls/hr Q8 IVPB Last administered on 09/23/18at 22:03; Admin Dose 100 MLS/HR; Start 09/23/18 at 14:00; Status Hold Meropenem/Sodium Chloride 50 ml @ 100 mls/hr Q8H IVPB Last administered on 10/04/18at 02:17; Admin Dose 100 MLS/HR; Start 09/24/18 at 02:30 Hydromorphone HCl (Dilaudid) 0.5 mg Q4H PRN IV SEVERE PAIN LEVEL 7-10 Last administered on 10/03/18at 14:27; Admin Dose 0.5 MG; Start 09/24/18 at 03:00 Lorazepam (Ativan) 0.5 mg Q6H PRN IV ANXIETY Last administered on 10/04/18at 08:04; Admin Dose 0.5 MG; Start 09/24/18 at 03:00 Pantoprazole (Protonix Iv) 40 mg BID@06,18 IV Last administered on 10/04/18at 05:15; Admin Dose 40 MG; Start 09/24/18 at 18:00 Miscellaneous Information 1 ea NOTE XX ; Start 09/25/18 at 22:00 Glucose (Glutose) 15 gm Q15M PRN PO DECREASED GLUCOSE; Start 09/25/18 at 22:00 Glucose (Glutose) 22.5 gm Q15M PRN PO DECREASED GLUCOSE; Start 09/25/18 at 22:00 Dextrose (D50w Syringe) 25 ml Q15M PRN IV DECREASED GLUCOSE Last administered on 09/30/18 01:04; Admin Dose 25 ML; Start 09/25/18 at 22:00 Dextrose (D50w Syringe) 50 ml Q15M PRN IV DECREASED GLUCOSE; Start 09/25/18 at 22:00 Glucagon (Glucagen) 1 mg Q15M PRN IM DECREASED GLUCOSE; Start 09/25/18 at 22:00 Glucose (Glutose) 15 gm Q15M PRN BUCCAL DECREASED GLUCOSE; Start 09/25/18 at 22:00 Mupirocin (Bactroban) 1 applic BID TOP Last administered on 10/04/18 08:02; Admin Dose 1 APPLIC; Start 09/26/18 at 21:00; Stop 10/06/18 at 09:01 Methadone HCl (Methadone Liq) 2 mg Q4 SL Last administered on 10/04/18 08:04; A dmin Dose 2 MG; Start 09/28/18 at 09:30 Enoxaparin Sodium (Lovenox) 40 mg DAILY SC Last administered on 10/04/18 08:05; Admin Dose 40 MG; Start 09/30/18 at 15:00 Miscellaneous Information (*Order Clarification Bulletin) MEDICATION REQUIRES CLARIFICATI... Q12 XX Last administered on 10/03/18 08:49; Admin Dose 1 EA; Start 09/30/18 at 21:00 IV Flush (NS 10 ml) 10 ml PRN PRN IV IV PROTOCOL; Start 09/30/18 at 19:30 Total Parenteral Nutrition 1,000 ml @ 60 mls/hr [id number] IV Last administered on 10/03/18 20:52; Admin Dose 60 MLS/HR; Start 10/01/18 at 18:00 Insulin Aspart (Novolog Insulin Pen) NOVOLOG *MILD* ALGORITHM WITH MEALS BEDTIME SC Last administered on 10/03/18 13:02; Admin Dose 2 UNIT; Start 10/01/18 at 21:00 Sodium Chloride 1,000 ml @ 25 mls/hr Q24H IV Last administered on 10/03/18 08:37; Admin Dose 50 MLS/HR; Start 10/03/18 at 08:30 Phenylephrine HCl 80 mg/Dextrose 250 ml @ 18.75 mls/ hr TITRATE IV Last administered on 10/03/18 21:44; Admin Dose 5.63 MLS/HR; Start 10/03/18 at 08:30 Diagnostic Test (Pha) (Accu-Chek) 1 ea Q4 XX Last administered on 10/04/18 08:03; Admin Dose 1 EA; Start 10/03/18 at 13:00 Vancomycin HCl (Vanco Iv Per Pharmacy) VANCOMYCIN PER PHARMACY PER PROTOCOL XX ; Start 10/03/18 at 13:30 Fluconazole/ Sodium Chloride 50 ml @ 50 mls/hr Q24H IVPB Last administered on 10/03/18at 15:30; Admin Dose 50 MLS/HR; Start 10/03/18 at 13:30 Vancomycin HCl 100 ml @ 100 mls/hr Q24H IVPB ; Start 10/04/18 at 14:00 JOSÉ MIGUEL THOMSON Oct 04, 2018 09:12
--- NOTE | 2018-10-04 09:38 | PN ---
Date/Time of Note Date/Time of Note DATE: 10/04/18 TIME: 09:31 Assessment/Plan Lines/Catheters IV Catheter Type (from [facility]): PICC Line Cline in Place (from Nrs): Yes Assessment/Plan Chief Complaint/Hosp Course 1. Perforated terminal ileum with multiple abscesses, patient and son finally agreeable to surgery yesterday s/p lap > open ileocolectomy and drainage of abscesses (10/03).; No bowel function as of yet -strict npo/ngt until bowel function -abx per ID -supportive -fluids -pressors -drain care 2. Sepsis -as above 3. NSTEMI -medical/cardiac optimization 4. Acute renal insufficiency improved judicious fluid management -avoid nephrotoxic agents 5. Elevated transaminases, history of hep C -Monitor 6. Chronic methadone use: -pain mgt 7. Anemia status post PRBC transfusion -monitor Thank you. Patient seen and examined in collaboration with Dr. aNveed Schumacher. Subjective 24 Hr Interval Summary + Flatus. No bowel movement as of yet. Some tachycardia. No fevers, chills, sob, congested cough, cp, palpitations, savage, dizziness, nausea, vomiting, diarrhea, dysuria. Exam/Review of Systems Vital Signs Vitals Vital Signs Date Temp Pulse Resp B/P (MAP) Pulse Ox O2 O2 Flow FiO2 Time Delivery Rate 10/04/18 103 17 99/59 (72) 95 Nasal 2.0 09:00 Cannula 10/04/18 97.7 08:00 Intake and Output 10/03/18 10/03/18 10/04/18 1515:00 23:00 07:00 IntakeIntake Total 150 ml 1009.76 ml 1443.75 ml OutputOutput Total 950 ml 860 ml 640 ml BalanceBalance -800 ml 149.76 ml 803.75 ml Exam Free Text/Dictation Constitutional: alert, oriented, nad Psych: nl mood/affect; No anxiety Head: normocephalic, lacerations Eyes: nl conjunctiva, EOMI, PERRL; No icteric ENMT: nl external ears & nose, mucosa pink and moist, ngt Neck: supple, non-tender, jvd Respiratory: normal air movement; No congested cough, No labored breathing Cardiovascular: regular rate and rhythm, No edema Gastrointestinal: soft, distended (min), tender, octaviano serosang; No rebound, guarding, rigidity Musculoskeletal: nl extremities to inspection; No nl gait and stance, No joint tenderness Extremities: normal pulses Results Result Diagram: 10/04/18 0600 10/04/18 0600 RAFAEL EMERY NP Oct 04, 2018 09:38
[2018-10-04] MEDS ORDERED: MAGNESIUM SULFATE 1 GM/D5W 100 ML IVPB ONE (11:00)
[2018-10-04] MEDS: FLUCONAZOLE 100 MG/50 ML (PMX) 50 ML IVPB SCH (12:48)
[2018-10-04] MEDS: TPN 1,000 ML IV SCH (12:49)
--- NOTE | 2018-10-04 14:06 | CONS ---
Assessment/Plan Assessment/Plan Hospital Course (Demo Recall) No acute changes overnight patient looks comfortable no fevers WBC 7.9 platelets 135 BUN 16 creatinine 0.45. Patient is off pressors Chest x-ray this morning revealed patchy densities both lung robles improved from prior study Antimicrobials: Meropenem, Vanco, Diflucan Indwelling: NG tube left-sided RAFAL, PICC line, Cline catheter HEENT: Within normal limits. NECK: Supple. CHEST: Decreased breath sounds at the bases. HEART: S1 S2 ABDOMEN: Distended, bowel sounds hypoactive, mid abdominal dressing intact, NG tube to suction EXTREMITIES: Without cyanosis, clubbing, or edema. Assessment: 1. Sepsis s/p shock 2. Perforated bowel with multiple abscess and small bowel obstruction, status post laparotomy/open exploration 10/02/2018 3. Bilateral lung consolidations 4. Non-ST elevation AL 5. COPD Plan: Stable off pressors, continue antibiotics, follow surgical recommendations Consultation Date/Type/Reason Admit Date/Time Sep 15, 2018 at 03:32 Initial Consult Date 09/24/18 Type of Consult id Requesting Provider: LEOBARDO DC Date/Time of Note DATE: 10/04/18 TIME: 14:05 Exam/Review of Systems Exam Vitals Vital Signs Date Temp Pulse Resp B/P (MAP) Pulse Ox O2 O2 Flow FiO2 Time Delivery Rate 10/04/18 103 18 96 Nasal 3.0 11:20 Cannula 10/04/18 126/65 11:00 (85) 10/04/18 97.7 08:00 Intake and Output 10/03/18 10/03/18 10/04/18 1515:00 23:00 07:00 IntakeIntake Total 150 ml 1009.76 ml 1443.75 ml OutputOutput Total 950 ml 860 ml 640 ml BalanceBalance -800 ml 149.76 ml 803.75 ml Results Result Diagram: 10/04/18 1113 10/04/18 0600 Results 24hrs Laboratory Tests Test 10/03/18 17:46 10/03/18 20:10 10/03/18 20:52 10/04/18 00:54 Bedside Glucose 131 139 129 Hemoglobin 6.2 *L Hematocrit 20.0 L Test 10/04/18 01:00 10/04/18 04:48 10/04/18 05:14 10/04/18 06:00 Hemoglobin 7.2 L 9.0 #L Hematocrit 22.8 L 28.0 #L Lab Scanned Report BLOOD TRANSFUSION Bedside Glucose 130 White Blood Count 7.9 # Red Blood Count 3.04 L Mean Corpuscular 92.1 Volume Mean Corpuscular 29.6 Hemoglobin Mean Corpuscular 32.1 Hemoglobin Concent Red Cell 16.4 H Distribution Width Platelet Count 135 #L Mean Platelet 10.9 H Volume Immature 0.400 Granulocytes % Neutrophils % 73.7 Lymphocytes % 17.2 Monocytes % 5.4 Eosinophils % 2.8 Basophils % 0.5 Nucleated Red Blood 0.0 Cells % Immature 0.030 Granulocytes # Neutrophils # 5.8 Lymphocytes # 1.4 Monocytes # 0.4 Eosinophils # 0.2 Basophils # 0.0 Nucleated Red Blood 0.0 Cells # Sodium Level 136 Potassium Level 3.9 Chloride Level 103 Carbon Dioxide 34 H Level Anion Gap 0 L Blood Urea Nitrogen 16 Creatinine 0.45 Est Glomerular > 60 Filtrat Rate mL/min Glucose Level 129 # Calcium Level 7.1 L Phosphorus Level 2.9 Magnesium Level 1.7 Test 10/04/18 07:57 10/04/18 11:07 10/04/18 11:13 Bedside Glucose 121 118 Hemoglobin 9.0 L Hematocrit 28.1 L Medications Medication Current Medications IV Flush (NS 3 ml) 3 ml PER PROTOCOL IV ; Start 09/15/18 at 07:30 Ondansetron HCl (Zofran Inj) 4 mg Q6H PRN IV NAUSEA/VOMITING Last administered on 09/29/18at 13:19; Admin Dose 4 MG; Start 09/15/18 at 07:30 Acetaminophen (Tylenol Tab) 650 mg Q6H PRN PO .PAIN 1-3 OR TEMP Last administered on 09/16/18at 21:56; Admin Dose 650 MG; Start 09/15/18 at 07:30 Baclofen (Lioresal) 10 mg BID PO Last administered on 09/23/18at 09:45; Admin Dose 10 MG; Start 09/15/18 at 09:00; Status Hold Buspirone HCl (Buspar) 10 mg BID PO Last administered on 09/23/18at 11:44; Admin Dose 10 MG; Start 09/15/18 at 09:00; Status Hold Calcium Carbonate (Oyster Shell Calcium) 1.25 gm BID PO Last administered on 09/23/18 11:44; Admin Dose 1.25 GM; Start 09/15/18 at 09:00; Status Hold Clonazepam (Klonopin) 0.5 mg DAILY PRN PO ANXIETY Last administered on 09/23/18 02:04; Admin Dose 0.5 MG; Start 09/15/18 at 07:30; Status Hold Docusate Sodium (Colace) 100 mg BID PO Last administered on 09/23/18 09:43; Admin Dose 100 MG; Start 09/15/18 at 09:00; Status Hold Rifaximin (Xifaxan) 550 mg BID PO Last administered on 09/22/18 21:42; Admin Dose 550 MG; Start 09/15/18 at 09:00; Status Hold Sertraline HCl (Zoloft) 100 mg DAILY PO ; Start 09/15/18 at 09:00; Status Hold Fluticasone/ Vilanterol (Breo Ellipta 200-25 Mcg Inh) 1 inh DAILY INH Last admi nistered on 10/04/18 08:02; Admin Dose 1 INH; Start 09/15/18 at 09:00 Albuterol/ Ipratropium (Duoneb) 3 ml Q3H RESP THERAPY PRN HHN WHEEZING AND SOB Last administered on 09/21/18 21:08; Admin Dose 3 ML; Start 09/15/18 at 08:00 Levalbuterol (Xopenex Neb) 0.63 mg Q4H RESP THERAPY HHN Last administered on 10/04/18 11:20; Admin Dose 0.63 MG; Start 09/15/18 at 17:00 Levalbuterol (Xopenex Neb) 0.63 mg Q2H RESP THERAPY PRN HHN WHEEZING AND SOB; Start 09/15/18 at 14:00 Collagenase (Santyl) 1 applic DAILY TOP Last administered on 10/04/18 08:03; Admin Dose 1 APPLIC; Start 09/16/18 at 15:00 Multivitamins Therapeutic (Theragran) 1 tab DAILY PO Last administered on 10/02/18 11:01; Admin Dose 1 TAB; Start 09/19/18 at 12:00 Ascorbic Acid (Vitamin C) 500 mg DAILY PO Last administered on 09/23/18 09:45; Admin Dose 500 MG; Start 09/19/18 at 12:00; Status Hold Zinc Sulfate (Zinc Sulfate) 220 mg DAILY PO Last administered on 09/22/18 08:50; Admin Dose 220 MG; Start 09/19/18 at 12:00; Status Hold Thiamine HCl (Vitamin B1) 50 mg DAILY PO Last administered on 09/23/18 09:45; Admin Dose 50 MG; Start 09/19/18 at 12:00; Status Hold Simethicone (Mylicon) 80 mg Q6H PRN PO DISTENSION/GAS/BLOATING Last administered on 09/22/18 23:50; Admin Dose 80 MG; Start 09/20/18 at 06:30 Diltiazem HCl (Cardizem Cd) 120 mg DAILY PO Last administered on 09/23/18 11:41; Admin Dose 120 MG; Start 09/20/18 at 09:00; Status Hold Zolpidem Tartrate (Ambien) 5 mg HS PRN PO INSOMNIA Last administered on 01:16; Admin Dose 5 MG; Start 09/21/18 at 02:00; Status Hold Phenol (Cepastat Lozenge) 1 lozenge Q1H PRN MT SORE THROAT Last administered on 09/22/18 03:32; Admin Dose 1 LOZENGE; Start 09/22/18 at 01:00 Levofloxacin (Levaquin) 500 mg DAILY@06 PO Last administered on 09/23/18 07:21; Admin Dose 500 MG; Start 09/23/18 at 06:00; Status Hold Metronidazole 100 ml @ 100 mls/hr Q8 IVPB Last administered on 09/23/18 22:03; Admin Dose 100 MLS/HR; Start 09/23/18 at 14:00; Status Hold Meropenem/Sodium Chloride 50 ml @ 100 mls/hr Q8H IVPB Last administered on 10/04/18 09:44; Admin Dose 100 MLS/HR; Start 09/24/18 at 02:30 Hydromorphone HCl (Dilaudid) 0.5 mg Q4H PRN IV SEVERE PAIN LEVEL 7-10 Last administered on 10/03/18 14:27; Admin Dose 0.5 MG; Start 09/24/18 at 03:00 Lorazepam (Ativan) 0.5 mg Q6H PRN IV ANXIETY Last administered on 10/04/18 08:04; Admin Dose 0.5 MG; Start 09/24/18 at 03:00 Pantoprazole (Protonix Iv) 40 mg BID@06,18 IV Last administered on 10/04/18 05:15; Admin Dose 40 MG; Start 09/24/18 at 18:00 Miscellaneous Information 1 ea NOTE XX ; Start 09/25/18 at 22:00 Glucose (Glutose) 15 gm Q15M PRN PO DECREASED GLUCOSE; Start 09/25/18 at 22:00 Glucose (Glutose) 22.5 gm Q15M PRN PO DECREASED GLUCOSE; Start 09/25/18 at 22:00 Dextrose (D50w Syringe) 25 ml Q15M PRN IV DECREASED GLUCOSE Last administered on 09/30/18 01:04; Admin Dose 25 ML; Start 09/25/18 at 22:00 Dextrose (D50w Syringe) 50 ml Q15M PRN IV DECREASED GLUCOSE; Start 09/25/18 at 22:00 Glucagon (Glucagen) 1 mg Q15M PRN IM DECREASED GLUCOSE; Start 09/25/18 at 22:00 Glucose (Glutose) 15 gm Q15M PRN BUCCAL DECREASED GLUCOSE; Start 09/25/18 at 22:00 Mupirocin (Bactroban) 1 applic BID TOP Last administered on 10/04/18 08:02; Admin Dose 1 APPLIC; Start 09/26/18 at 21:00; Stop 10/06/18 at 09:01 Methadone HCl (Methadone Liq) 2 mg Q4 SL Last administered on 10/04/18 12:41; Admin Dose 2 MG; Start 09/28/18 at 09:30 IV Flush (NS 10 ml) 10 ml PRN PRN IV IV PROTOCOL; Start 09/30/18 at 19:30 Total Parenteral Nutrition 1,000 ml @ 60 mls/hr [id number] IV Last administered on 10/04/18 12:49; Admin Dose 60 MLS/HR; Start 10/01/18 at 18:00 Insulin Aspart (Novolog Insulin Pen) NOVOLOG *MILD* ALGORITHM WITH MEALS BEDTIME SC Last administered on 10/03/18 13:02; Admin Dose 2 UNIT; Start 10/01/18 at 21:00 Sodium Chloride 1,000 ml @ 25 mls/hr Q24H IV Last administered on 10/03/18at 08:37; Admin Dose 50 MLS/HR; Start 10/03/18 at 08:30 Phenylephrine HCl 80 mg/Dextrose 250 ml @ 18.75 mls/ hr TITRATE IV Last administered on 10/03/18at 21:44; Admin Dose 5.63 MLS/HR; Start 10/03/18 at 08:30 Diagnostic Test (Pha) (Accu-Chek) 1 ea Q4 XX Last administered on 10/04/18at 12:04; Admin Dose 1 EA; Start 10/03/18 at 13:00 Vancomycin HCl (Vanco Iv Per Pharmacy) VANCOMYCIN PER PHARMACY PER PROTOCOL XX ; Start 10/03/18 at 13:30 Fluconazole/ Sodium Chloride 50 ml @ 50 mls/hr Q24H IVPB Last administered on 10/04/18at 12:48; Admin Dose 50 MLS/HR; Start 10/03/18 at 13:30 Vancomycin HCl 100 ml @ 100 mls/hr Q24H IVPB ; Start 10/04/18 at 14:00 SKY BENAVIDES NP Oct 04, 2018 14:06
[2018-10-04] MEDS: VANCOMYCIN 500 MG (PMX) 100 ML IVPB SCH (14:33)
[2018-10-04] MEDS: HYDROmorphONE 0.5 MG/0.5 ML SYG IV PRN (14:46)
[2018-10-05] VITALS (7 sets, daily range): BP systolic 109–142; BP diastolic 59–83; PULSE 78–134; RESP 17–20
[2018-10-05] MEDS: LORAZEPAM 2 MG INJ IV PRN (00:15)
[2018-10-05] MEDS: LEVALBUTEROL (NEB) 0.63 MG/3 ML AMP HHN SCH ×6 (01:00→20:29)
[2018-10-05] MEDS: METHADONE (1 MG/ML 5 ML PO UD SYG) SL SCH ×6 (01:22→20:55)
[2018-10-05] MEDS: ACCU-CHEK XX SCH ×6 (01:23→21:00)
[2018-10-05] MEDS ORDERED: SOD CHLORIDE 0.9% 500 ML IV ONE (03:30)
[2018-10-05] MEDS: MEROPENEM 1 GM/50ML(PMX) 50 ML IVPB SCH ×3 (03:30→17:29)
[2018-10-05] MEDS ORDERED: SOD CHLORIDE 0.9% 100 ML ONE (03:50)
[2018-10-05] MEDS ORDERED: IODIXANOL LOCM 100 ML BTL ONE (03:50)
[2018-10-05] MEDS: SOD CHLORIDE 0.9% 1,000 ML IV SCH (04:51)
[2018-10-05] MEDS: TPN 1,000 ML IV SCH ×2 (04:54→21:07)
[2018-10-05] MEDS: PANTOPRAZOLE 40 MG INJ IV SCH ×2 (06:09→17:29)
[2018-10-05] MEDS: HYDROmorphONE 0.5 MG/0.5 ML SYG IV PRN ×2 (06:09→16:04)
[2018-10-05] MEDS: INSULIN ASPART [NOVOLOG] 3 ML PEN SC SCH ×4 (07:55→21:00)
[2018-10-05] MEDS: MULTIVITAMINS THERAPEUTIC TAB PO SCH (08:53)
[2018-10-05] MEDS: COLLAGENASE 5 GM (UD JAR) TOP SCH (09:00)
--- NOTE | 2018-10-05 09:02 | PN ---
Date/Time of Note Date/Time of Note DATE: 10/05/18 TIME: 08:51 Assessment/Plan VTE Prophylaxis Risk score (from Ns)>0 risk: 8 SCD applied (from [facility] [place]): Yes Pharmacological prophylaxis: NA/contraindicated Pharm contraindication: bleeding Lines/Catheters IV Catheter Type (from Nrsg): PICC Line Central line still needed: Yes Urinary Cath still in place: Yes Reason Cath still needed: skin wounds contaminated by urine Assessment/Plan Assessment/Plan 68-year-old woman with history of COPD, PE in May 2018, CKD, admitted for COPD exacerbation and found to have ileum perforation with abdominal abscess. #Small bowel perforation #Abdominal abscess - Weeks of abdominal distension, tenderness, bloating. - CT on 09/23 first showed pneumoperitoneum, taken to OR by Dr. Schumacher on 10/02, found to have perforated terminal ileum with abdominal abscess s/p drainage - Etiology is unclear. - ID following, on antibiotics. - NPO, NG tube to low intermittent suction. #Anemia - Likely due to abdominal perforation - Transfuse to Hgb>7 or for symptomatic anemia - Anticoag held for Hgb drop. # Hypoxic and hypercapnic respiratory failure: Resolved. - For now continue supplemental oxygen, bronchodilators, broad-spectrum a ntibiotics - PE in May 2018, currently on lovenox; eventually will transition back to Eliquis. - Had hypoxemic episode on 10/05, likely due to benzodiazepines, CTPA negative, if unable to wean off high-flow nasal cannula will investigate further. #MRSA colonization of the nares - On mupirocin GI: PPI DVT: lovenox, currently held. Result Diagram: 10/05/18 0129 10/04/18 0600 Subjective 24 Hr Interval Summary Free Text/Dictation Overnight the patient had an episode of acute hypoxia shortly after getting IV Ativan. She was placed on high-flow nasal cannula. This morning the patient is awake, alert, breathing comfortably. Still on HFNC. I clarified code status with the patient. She confirmed she does not want CPR or chest compressions in the event of cardiac arrest; and she does not want to be intubated in case of respiratory failure. Change code status to DNR/DNI. Exam/Review of Systems Exam Vitals Vital Signs Date Temp Pulse Resp B/P (MAP) Pulse Ox O2 O2 Flow FiO2 Time Delivery Rate 10/05/18 108 20 96 80 08:29 10/05/18 Vapotherm 07:45 10/05/18 98.2 109/64 07:23 (79) 10/05/18 4.0 01:53 Intake and Output 10/04/18 10/04/18 10/05/18 1515:00 23:00 07:00 IntakeIntake Total 630 ml 380 ml OutputOutput Total 1360 ml 1180 ml 900 ml BalanceBalance -730 ml -800 ml -900 ml Exam Gen: Thin frail appearing woman lying in bed, awake and alert. Head: Atraumatic, clear oropharynx Eyes: Normal Conjunctiva, ENT: Normal External Ears, Nose and Mouth. Moist mucous membranes. Neck: Full range of motion. No meningismus. Resp: Clear to auscultation bilaterally Cardio: Regular rate and rhythm, no murmurs Abd: Distended, soft, abdomen. Midline incision dressing clean and dry. Lap incisions clean and dry. Bowel sounds heard. RAFAL drain with serosanguineous output. Ext: No bilateral lower extremity edema Results Results 24hrs Laboratory Tests Test 10/04/18 11:07 10/04/18 11:13 10/04/18 17:38 10/04/18 18:26 Bedside Glucose 118 100 Hemoglobin 9.0 L 9.1 L Hematocrit 28.1 L 28.8 L Test 10/04/18 21:27 10/05/18 01:20 10/05/18 01:29 10/05/18 03:45 Bedside Glucose 111 102 Hemoglobin 9.3 L Hematocrit 30.6 L Blood Gas Blood arterial Specimen Source Arterial Blood 10/05/2018 3:50:13 Date Drawn AM Arterial Blood 7.340 L pH (Temp corrected) Arterial Blood 54.7 H pCO2 (Temp correct) Arterial Blood 88.9 pO2 (Temp corrected) Arterial Blood 28.8 H HCO3 Arterial Blood 2.2 Base Excess Arterial Blood 96.7 Oxygen Saturatio n Flip Test ACCEPTAB Arterial Blood Right Radial Gas Puncture Site Arterial 0.3 Blood Carboxyhem oglobin Arterial Blood 0.4 Methemoglobin Blood Gas A-a O2 424.1 H Differential Oxyhemoglobin 96.0 Percent Blood Gas 37.0 Temperature Blood Gas Actual 20 Respiration Rate Blood Gas HFNC Modality FiO2 80.0 Blood Gas MM Notified Whom Blood Gas 10/05/2018 3:57:39 Notified Time AM Test 10/05/18 04:54 10/05/18 07:37 Bedside Glucose 106 Lab Scanned BLOOD TRANSFUSIO Report N Medications Medication Current Medications IV Flush (NS 3 ml) 3 ml PER PROTOCOL IV ; Start 09/15/18 at 07:30 Ondansetron HCl (Zofran Inj) 4 mg Q6H PRN IV NAUSEA/VOMITING Last administered on 09/29/18 13:19; Admin Dose 4 MG; Start 09/15/18 at 07:30 Acetaminophen (Tylenol Tab) 650 mg Q6H PRN PO .PAIN 1-3 OR TEMP Last administered on 09/16/18 21:56; Admin Dose 650 MG; Start 09/15/18 at 07:30 Baclofen (Lioresal) 10 mg BID PO Last administered on 09/23/18 09:45; Admin Dose 10 MG; Start 09/15/18 at 09:00; Status Hold Buspirone HCl (Buspar) 10 mg BID PO Last administered on 09/23/18 11:44; Admin Dose 10 MG; Start 09/15/18 at 09:00; Status Hold Calcium Carbonate (Oyster Shell Calcium) 1.25 gm BID PO Last administered on 09/23/18 11:44; Admin Dose 1.25 GM; Start 09/15/18 at 09:00; Status Hold Clonazepam (Klonopin) 0.5 mg DAILY PRN PO ANXIETY Last administered on 09/23 02:04; Admin Dose 0.5 MG; Start 09/15/18 at 07:30; Status Hold Docusate Sodium (Colace) 100 mg BID PO Last administered on 09/23/18 09:43; Admin Dose 100 MG; Start 09/15/18 at 09:00; Status Hold Rifaximin (Xifaxan) 550 mg BID PO Last administered on 09/22/18 21:42; Admin Dose 550 MG; Start 09/15/18 at 09:00; Status Hold Sertraline HCl (Zoloft) 100 mg DAILY PO ; Start 09/15/18 at 09:00; Status Hold Fluticasone/ Vilanterol (Breo Ellipta 200-25 Mcg Inh) 1 inh DAILY INH Last administered on 10/04/18 08:02; Admin Dose 1 INH; Start 09/15/18 at 09:00 Albuterol/ Ipratropium (Duoneb) 3 ml Q3H RESP THERAPY PRN HHN WHEEZING AND SOB Last administered on 09/21/18at 21:08; Admin Dose 3 ML; Start 09/15/18 at 08:00 Levalbuterol (Xopenex Neb) 0.63 mg Q4H RESP THERAPY HHN Last administered on 10/05/18 04:33; Admin Dose 0.63 MG; Start 09/15/18 at 17:00 Levalbuterol (Xopenex Neb) 0.63 mg Q2H RESP THERAPY PRN HHN WHEEZING AND SOB; Start 09/15/18 at 14:00 Collagenase (Santyl) 1 applic DAILY TOP Last administered on 10/04/18 08:03; Admin Dose 1 APPLIC; Start 09/16/18 at 15:00 Multivitamins Therapeutic (Theragran) 1 tab DAILY PO Last administered on 10/02/18 11:01; Admin Dose 1 TAB; Start 09/19/18 at 12:00 Ascorbic Acid (Vitamin C) 500 mg DAILY PO Last administered on 09/23/18at 09:45; Admin Dose 500 MG; Start 09/19/18 at 12:00; Status Hold Zinc Sulfate (Zinc Sulfate) 220 mg DAILY PO Last administered on 09/22/18at 08:50; Admin Dose 220 MG; Start 09/19/18 at 12:00; Status Hold Thiamine HCl (Vitamin B1) 50 mg DAILY PO Last administered on 09/23/18at 09:45; Admin Dose 50 MG; Start 09/19/18 at 12:00; Status Hold Simethicone (Mylicon) 80 mg Q6H PRN PO DISTENSION/GAS/BLOATING Last administered on 09/22/18at 23:50; Admin Dose 80 MG; Start 09/20/18 at 06:30 Diltiazem HCl (Cardizem Cd) 120 mg DAILY PO Last administered on 09/23/18at 11:41; Admin Dose 120 MG; Start 09/20/18 at 09:00; Status Hold Zolpidem Tartrate (Ambien) 5 mg HS PRN PO INSOMNIA Last administered on 09/24/18 at 01:16; Admin Dose 5 MG; Start 09/21/18 at 02:00; Status Hold Phenol (Cepastat Lozenge) 1 lozenge Q1H PRN MT SORE THROAT Last administered on 09/22/18 03:32; Admin Dose 1 LOZENGE; Start 09/22/18 at 01:00 Levofloxacin (Levaquin) 500 mg DAILY@06 PO Last administered on 09/23/18 07:21; Admin Dose 500 MG; Start 09/23/18 at 06:00; Status Hold Metronidazole 100 ml @ 100 mls/hr Q8 IVPB Last administered on 09/23/18at 22:03; Admin Dose 100 MLS/HR; Start 09/23/18 at 14:00; Status Hold Meropenem/Sodium Chloride 50 ml @ 100 mls/hr Q8H IVPB Last administered on 10/05/18 03:30; Admin Dose 100 MLS/HR; Start 09/24/18 at 02:30 Hydromorphone HCl (Dilaudid) 0.5 mg Q4H PRN IV SEVERE PAIN LEVEL 7-10 Last administered on 10/05/18 06:09; Admin Dose 0.5 MG; Start 09/24/18 at 03:00 Lorazepam (Ativan) 0.5 mg Q6H PRN IV ANXIETY Last administered on 10/05/18 00:15; Admin Dose 0.5 MG; Start 09/24/18 at 03:00 Pantoprazole (Protonix Iv) 40 mg BID@06,18 IV Last administered on 10/05/18 06:09; Admin Dose 40 MG; Start 09/24/18 at 18:00 Miscellaneous Information 1 ea NOTE XX ; Start 09/25/18 at 22:00 Glucose (Glutose) 15 gm Q15M PRN PO DECREASED GLUCOSE; Start 09/25/18 at 22:00 Glucose (Glutose) 22.5 gm Q15M PRN PO DECREASED GLUCOSE; Start 09/25/18 at 22:00 Dextrose (D50w Syringe) 25 ml Q15M PRN IV DECREASED GLUCOSE Last administered on 09/30/18 01:04; Admin Dose 25 ML; Start 09/25/18 at 22:00 Dextrose (D50w Syringe) 50 ml Q15M PRN IV DECREASED GLUCOSE; Start 09/25/18 at 22:00 Glucagon (Glucagen) 1 mg Q15M PRN IM DECREASED GLUCOSE; Start 09/25/18 at 22:00 Glucose (Glutose) 15 gm Q15M PRN BUCCAL DECREASED GLUCOSE; Start 09/25/18 at 22:00 Mupirocin (Bactroban) 1 applic BID TOP Last administered on 10/04/18 21:29; Admin Dose 1 APPLIC; Start 09/26/18 at 21:00; Stop 10/06/18 at 09:01 Methadone HCl (Methadone Liq) 2 mg Q4 SL Last administered on 10/05/18 04:52; Admin Dose 2 MG; Start 09/28/18 at 09:30 IV Flush (NS 10 ml) 10 ml PRN PRN IV IV PROTOCOL; Start 09/30/18 at 19:30 Total Parenteral Nutrition 1,000 ml @ 60 mls/hr [id number] IV Last administered on 10/05/18 04:54; Admin Dose 60 MLS/HR; Start 10/01/18 at 18:00 Insulin Aspart (Novolog Insulin Pen) NOVOLOG *MILD* ALGORITHM WITH MEALS BEDTIME SC Last administered on 10/03/18 13:02; Admin Dose 2 UNIT; Start 10/01/18 at 21:00 Diagnostic Test (Pha) (Accu-Chek) 1 ea Q4 XX Last administered on 10/05/18 04:53; Admin Dose 1 EA; Start 10/03/18 at 13:00 Vancomycin HCl (Vanco Iv Per Pharmacy) VANCOMYCIN PER PHARMACY PER PROTOCOL XX ; Start 10/03/18 at 13:30 Fluconazole/ Sodium Chloride 50 ml @ 50 mls/hr Q24H IVPB Last administered on 10/04/18 12:48; Admin Dose 50 MLS/HR; Start 10/03/18 at 13:30 Vancomycin HCl 100 ml @ 100 mls/hr Q24H IVPB Last administered on 10/04/18 14:33; Admin Dose 100 MLS/HR; Start 10/04/18 at 14:00 PRASHANT HILTON MD Oct 05, 2018 09:01
[2018-10-05] MEDS: BALSAM PERU/CASTOR OIL 60 GM TUBE TOP SCH ×2 (09:59→20:55)
[2018-10-05] MEDS: FLUTICASONE/VILANTEROL 200-25 INH DEVICE INH SCH (09:59)
[2018-10-05] MEDS: MUPIROCIN 2% 22 GM OINT TOP SCH ×2 (09:59→20:55)
--- NOTE | 2018-10-05 10:37 | CONS ---
Consultation Date/Type/Reason Admit Date/Time Sep 15, 2018 at 03:32 Initial Consult Date 09/15/18 Type of Consult Pulmonary Patient is complaining of diarrhea as well as significant left lower quadrant abdominal pain. Denies any fever, chills, any vomiting. Shortness of breath has resolved. General exam; elderly female, laying in bed. H EENT exam; supple no JVD. No lymphadenopathy. Midline trachea. No thyromegaly. Pharynx is clear. Patient is edentulous. Chest exam; diminished but clear breath sounds. S1-S2 audible, no murmurs. Regular rhythm. Abdomen exam; soft, there is left lower quadrant tenderness , bowel sounds audible. Extremity exam; no peripheral edema. [employer] exam; patient is awake alert exhibiting no focal deficit. Assessment and recommendations; 1. Patient admitted with COPD exacerbation with interval improvement. 2. Significant spike and leukocytosis with abdominal pain as well as diarrhea. Add Flagyl 5 mg IV every [address] of abdomen pelvis with contrast. Obtain surgical consult. Requesting Provider: LEOBARDO DC Date/Time of Note DATE: 10/05/18 TIME: 10:35 24 HR Interval Summary Free Text/Dictation Patient's condition is stable. Has been transferred to medical floor. Denies any shortness of breath. Still complains of abdominal pain with interval improvement. Denies any nausea vomiting. General exam; elderly lady, awake alert, currently no distress. H ENT exam; supple neck, no JVD. No lymphadenopathy. Midline trachea. No thyromegaly. Nasogastric tube in place. Patient is edentulous. Chest exam; clear to auscultation. S1-S2 audible, no murmurs. Regular rhythm. Abdomen exam; soft tender. Bowel sounds are sluggish. Decreased tenderness. Colostomy in place. Midline dressing in place. Abdomen is nondistended. Organomegaly difficult to assess. Extremity exam; no peripheral edema. [employer] exam; no focal deficit. Assessment and recommendations; 1. Patient initially admitted for acute bronchitis but then developed acute abdomen due to bowel perforation, patient refused surgery at least for a week but then ultimately agreed for it requiring laparotomy with discovery of perforated bowel with multiple intra-abdominal abscesses. Patient clinically has improved significantly. Continue current supportive care. Continue TPN. Oral diet if cleared by general surgeon. Exam/Review of Systems Exam Vitals Vital Signs Date Temp Pulse Resp B/P (MAP) Pulse Ox O2 O2 Flow FiO2 Time Delivery Rate 10/05/18 High Flow 10:06 10/05/18 108 20 96 80 08:29 10/05/18 98.2 109/64 07:23 (79) 10/05/18 4.0 01:53 Intake and Output 10/04/18 10/04/18 10/05/18 1515:00 23:00 07:00 IntakeIntake Total 630 ml 380 ml OutputOutput Total 1360 ml 1180 ml 900 ml BalanceBalance -730 ml -800 ml -900 ml Results Result Diagram: 10/05/18 0129 10/04/18 0600 Results 24hrs Laboratory Tests Test 10/04/18 11:07 10/04/18 11:13 10/04/18 17:38 10/04/18 18:26 Bedside Glucose 118 100 Hemoglobin 9.0 L 9.1 L Hematocrit 28.1 L 28.8 L Test 10/04/18 21:27 10/05/18 01:20 10/05/18 01:29 10/05/18 03:45 Bedside Glucose 111 102 Hemoglobin 9.3 L Hematocrit 30.6 L Blood Gas Blood arterial Specimen Source Arterial Blood 10/05/2018 3:50:13 Date Drawn AM Arterial Blood 7.340 L pH (Temp corrected) Arterial Blood 54.7 H pCO2 (Temp correct) Arterial Blood 88.9 pO2 (Temp corrected) Arterial Blood 28.8 H HCO3 Arterial Blood 2.2 Base Excess Arterial Blood 96.7 Oxygen Saturatio n Flip Test ACCEPTAB Arterial Blood Right Radial Gas Puncture Site Arterial 0.3 Blood Carboxyhem oglobin Arterial Blood 0.4 Methemoglobin Blood Gas A-a O2 424.1 H Differential Oxyhemoglobin 96.0 Percent Blood Gas 37.0 Temperature Blood Gas Actual 20 Respiration Rate Blood Gas HFNC Modality FiO2 80.0 Blood Gas MM Notified Whom Blood Gas 10/05/2018 3:57:39 Notified Time AM Test 10/05/18 04:54 10/05/18 07:37 10/05/18 08:44 Bedside Glucose 106 106 Lab Scanned BLOOD TRANSFUSIO Report N Medications Medication Current Medications IV Flush (NS 3 ml) 3 ml PER PROTOCOL IV ; Start 09/15/18 at 07:30 Ondansetron HCl (Zofran Inj) 4 mg Q6H PRN IV NAUSEA/VOMITING Last administered on 09/29/18 13:19; Admin Dose 4 MG; Start 09/15/18 at 07:30 Acetaminophen (Tylenol Tab) 650 mg Q6H PRN PO .PAIN 1-3 OR TEMP Last administered on 09/16/18 21:56; Admin Dose 650 MG; Start 09/15/18 at 07:30 Baclofen (Lioresal) 10 mg BID PO Last administered on 09/23/18 09:45; Admin Dose 10 MG; Start 09/15/18 at 09:00; Status Hold Buspirone HCl (Buspar) 10 mg BID PO Last administered on 09/23/18 11:44; Admin Dose 10 MG; Start 09/15/18 at 09:00; Status Hold Calcium Carbonate (Oyster Shell Calcium) 1.25 gm BID PO Last administered on 09/23/18 11:44; Admin Dose 1.25 GM; Start 09/15/18 at 09:00; Status Hold Clonazepam (Klonopin) 0.5 mg DAILY PRN PO ANXIETY Last administered on 09/23/18 02:04; Admin Dose 0.5 MG; Start 09/15/18 at 07:30; Status Hold Docusate Sodium (Colace) 100 mg BID PO Last administered on 09/23/18 09:43; Admin Dose 100 MG; Start 09/15/18 at 09:00; Status Hold Rifaximin (Xifaxan) 550 mg BID PO Last administered on 09/22/18 21:42; Admin Dose 550 MG; Start 09/15/18 at 09:00; Status Hold Sertraline HCl (Zoloft) 100 mg DAILY PO ; Start 09/15/18 at 09:00; Status Hold Fluticasone/ Vilanterol (Breo Ellipta 200-25 Mcg Inh) 1 inh DAILY INH Last administered on 10/05/18 09:59; Admin Dose 1 INH; Start 09/15/18 at 09:00 Albuterol/ Ipratropium (Duoneb) 3 ml Q3H RESP THERAPY PRN HHN WHEEZING AND SOB Last administered on 09/21/18 21:08; Admin Dose 3 ML; Start 09/15/18 at 08:00 Levalbuterol (Xopenex Neb) 0.63 mg Q4H RESP THERAPY HHN Last administered on 10/05/18 04:33; Admin Dose 0.63 MG; Start 09/15/18 at 17:00 Levalbuterol (Xopenex Neb) 0.63 mg Q2H RESP THERAPY PRN HHN WHEEZING AND SOB; Start 09/15/18 at 14:00 Collagenase (Santyl) 1 applic DAILY TOP Last administered on 10/05/18 09:00; Admin Dose 1 APPLIC; Start 09/16/18 at 15:00 Multivitamins Therapeutic (Theragran) 1 tab DAILY PO Last administered on 10/02/18 11:01; Admin Dose 1 TAB; Start 09/19/18 at 12:00 Ascorbic Acid (Vitamin C) 500 mg DAILY PO Last administered on 09/23/18 09:45; Admin Dose 500 MG; Start 09/19/18 at 12:00; Status Hold Zinc Sulfate (Zinc Sulfate) 220 mg DAILY PO Last administered on 09/22/18 08:50; Admin Dose 220 MG; Start 09/19/18 at 12:00; Status Hold Thiamine HCl (Vitamin B1) 50 mg DAILY PO Last administered on 09/23/18 09:45; Admin Dose 50 MG; Start 09/19/18 at 12:00; Status Hold Simethicone (Mylicon) 80 mg Q6H PRN PO DISTENSION/GAS/BLOATING Last administered on 09/22/18 23:50; Admin Dose 80 MG; Start 09/20/18 at 06:30 Diltiazem HCl (Cardizem Cd) 120 mg DAILY PO Last administered on 09/23/18 11:41; Admin Dose 120 MG; Start 09/20/18 at 09:00; Status Hold Zolpidem Tartrate (Ambien) 5 mg HS PRN PO INSOMNIA Last administered on 09/24/18 01:16; Admin Dose 5 MG; Start 09/21/18 at 02:00; Status Hold Phenol (Cepastat Lozenge) 1 lozenge Q1H PRN MT SORE THROAT Last administered on 09/22/18 03:32; Admin Dose 1 LOZENGE; Start 09/22/18 at 01:00 Levofloxacin (Levaquin) 500 mg DAILY@06 PO Last administered on 7/26/19at 07:21; Admin Dose 500 MG; Start 09/23/18 at 06:00; Status Hold Metronidazole 100 ml @ 100 mls/hr Q8 IVPB Last administered on 09/23/18 22:03; Admin Dose 100 MLS/HR; Start 09/23/18 at 14:00; Status Hold Meropenem/Sodium Chloride 50 ml @ 100 mls/hr Q8H IVPB Last administered on 10/05/18 09:59; Admin Dose 100 MLS/HR; Start 09/24/18 at 02:30 Hydromorphone HCl (Dilaudid) 0.5 mg Q4H PRN IV SEVERE PAIN LEVEL 7-10 Last administered on 10/05/18 06:09; Admin Dose 0.5 MG; Start 09/24/18 at 03:00 Lorazepam (Ativan) 0.5 mg Q6H PRN IV ANXIETY Last administered on 10/05/18 00:15; Admin Dose 0.5 MG; Start 09/24/18 at 03:00 Pantoprazole (Protonix Iv) 40 mg BID@06,18 IV Last administered on 10/05/18 06:09; Admin Dose 40 MG; Start 09/24/18 at 18:00 Miscellaneous Information 1 ea NOTE XX ; Start 09/25/18 at 22:00 Glucose (Glutose) 15 gm Q15M PRN PO DECREASED GLUCOSE; Start 09/25/18 at 22:00 Glucose (Glutose) 22.5 gm Q15M PRN PO DECREASED GLUCOSE; Start 09/25/18 at 22:00 Dextrose (D50w Syringe) 25 ml Q15M PRN IV DECREASED GLUCOSE Last administered on 09/30/18 01:04; Admin Dose 25 ML; Start 09/25/18 at 22:00 Dextrose (D50w Syringe) 50 ml Q15M PRN IV DECREASED GLUCOSE; Start 09/25/18 at 22:00 Glucagon (Glucagen) 1 mg Q15M PRN IM DECREASED GLUCOSE; Start 09/25/18 at 22:00 Glucose (Glutose) 15 gm Q15M PRN BUCCAL DECREASED GLUCOSE; Start 09/25/18 at 22:00 Mupirocin (Bactroban) 1 applic BID TOP Last administered on 10/05/18 09:59; A dmin Dose 1 APPLIC; Start 09/26/18 at 21:00; Stop 10/06/18 at 09:01 Methadone HCl (Methadone Liq) 2 mg Q4 SL Last administered on 10/05/18 09:58; Admin Dose 2 MG; Start 09/28/18 at 09:30 IV Flush (NS 10 ml) 10 ml PRN PRN IV IV PROTOCOL; Start 09/30/18 at 19:30 Total Parenteral Nutrition 1,000 ml @ 60 mls/hr [id number] IV Last administered on 10/05/18 04:54; Admin Dose 60 MLS/HR; Start 10/01/18 at 18:00 Insulin Aspart (Novolog Insulin Pen) NOVOLOG *MILD* ALGORITHM WITH MEALS BEDTIME SC Last administered on 10/03/18 13:02; Admin Dose 2 UNIT; Start 10/01/18 at 21:00 Diagnostic Test (Pha) (Accu-Chek) 1 ea Q4 XX Last administered on 10/05/18 04:53; Admin Dose 1 EA; Start 10/03/18 at 13:00 Vancomycin HCl (Vanco Iv Per Pharmacy) VANCOMYCIN PER PHARMACY PER PROTOCOL XX ; Start 10/03/18 at 13:30 Fluconazole/ Sodium Chloride 50 ml @ 50 mls/hr Q24H IVPB Last administered on 10/04/18 12:48; Admin Dose 50 MLS/HR; Start 10/03/18 at 13:30 Vancomycin HCl 100 ml @ 100 mls/hr Q24H IVPB Last administered on 10/04/18 14:33; Admin Dose 100 MLS/HR; Start 10/04/18 at 14:00 JOSÉ MIGUEL THOMSON Oct 05, 2018 10:37
--- NOTE | 2018-10-05 10:46 | PN ---
DATE: 10/05/2018 SUBJECTIVE: The patient is in respiratory distress, was placed on high flow oxygen. The patient had a CT angio performed, which showed increased bilateral pleural effusions, atelectasis, and severe em physema. OBJECTIVE: VITAL SIGNS: Blood pressure is 109/64, respiratory rate 20, pulse 107, temperature 98.2. HEENT: Head is normocephalic. NECK: Supple. HEART: Regular rate. LUNGS: Show diminished breath sounds at the base. ABDOMEN: Soft, nontender to palpation without rebound or guarding. EXTREMITIES: Negative for clubbing, cyanosis, positive edema. DERMATOLOGIC: No rashes. MUSCULOSKELETAL: No joint effusion. NEUROLOGIC: No change in exam. MEDICATIONS: Has been reviewed. LABORATORY DATA: Has been is reviewed. IMAGING STUDIES: Have been reviewed. ASSESSMENT AND PLAN: 1. Nonoliguric kidney injury. Etiology secondary to hemodynamics. Renal function stabilized. Cont inue to monitor. Discontinue normal saline. 2. Hypomagnesemia, continue to monitor and replete. 3. Small bowel obstruction, status post laparotomy. Continue to monitor. Follow up with general jean-baptiste rgery. 4. Sepsis, status post shock. Continue current antibiotic regimen. 5. Volume overload. I will discontinue normal saline and monitor closely. Continue diuretic therap y. 6. Acute encephalopathy, etiology is toxic metabolic. 7. Nutrition. Continue TPN. 8. History of hepatitis C. Dictated By: RICHARD ORTIZ DO NR/NTS Conf#: [id number] DID#: [id number] CC: GERALDO VARGAS MD;*EndCC*
--- NOTE | 2018-10-05 11:41 | PN ---
Date/Time of Note Date/Time of Note DATE: 10/05/18 TIME: 11:35 Assessment/Plan Lines/Catheters IV Catheter Type (from Nrs): PICC Line Cline in Place (from Nrs): Yes Assessment/Plan Chief Complaint/Hosp Course 1. Perforated terminal ileum with multiple abscesses, patient and son finally agreeable to surgery yesterday s/p lap > open ileocolectomy and drainage of abscesses (10/03).; With likely paralytic ileus; No bowel function as of yet -strict npo/ngt until bowel function -chew gum -ambulate -abx per ID -supportive -fluids -pressors -drain care 2. Sepsis -as above 3. NSTEMI -medical/cardiac optimization 4. Acute renal insufficiency improved judicious fluid management -avoid nephrotoxic agents 5. Elevated transaminases, history of hep C -Monitor 6. Chronic methadone use: -pain mgt 7. Anemia status post PRBC transfusion -monitor 8. Respiratory distress currently on high flow oxygen -Per pulmonary -Oxygen supplementation as needed - Pulmonary toilet Thank you. Patient seen and examined in collaboration with Dr. Naveed Schumacher. Subjective 24 Hr Interval Summary Feels well. No bowel function as of yet. Respiratory distress overnight currently on high flow oxygen. No fevers, chills, sob, congested cough, cp, palpitations, savage, dizziness, nausea, vomiting, diarrhea, dysuria. Exam/Review of Systems Vital Signs Vitals Vital Signs Date Temp Pulse Resp B/P (MAP) Pulse Ox O2 O2 Flow FiO2 Time Delivery Rate 10/05/18 High Flow 10:06 10/05/18 108 20 96 80 08:29 10/05/18 98.2 109/64 07:23 (79) 10/05/18 4.0 01:53 Intake and Output 10/04/18 10/04/18 10/05/18 1515:00 23:00 07:00 IntakeIntake Total 630 ml 380 ml OutputOutput Total 1360 ml 1180 ml 900 ml BalanceBalance -730 ml -800 ml -900 ml Exam Free Text/Dictation Constitutional: alert, oriented, nad Psych: nl mood/affect; No anxiety Head: normocephalic, lacerations Eyes: nl conjunctiva, EOMI, PERRL; No icteric ENMT: nl external ears & nose, mucosa pink and moist, ngt Neck: supple, non-tender, jvd Respiratory: normal air movement; No congested cough, No labored breathing Cardiovascular: regular rate and rhythm, No edema Gastrointestinal: soft, distended (min), tender, octaviano serosang; No rebound, guarding, rigidity Musculoskeletal: nl extremities to inspection; No nl gait and stance, No joint tenderness Extremities: normal pulses Results Result Diagram: 10/05/18 0129 10/04/18 0600 RAFAEL EMERY NP Oct 05, 2018 11:41
[2018-10-05] MEDS: FLUCONAZOLE 100 MG/50 ML (PMX) 50 ML IVPB SCH (12:50)
--- NOTE | 2018-10-05 14:25 | CONS ---
Assessment/Plan Assessment/Plan Hospital Course (Demo Recall) Patient was transferred to the floor she accidentally pulled her NG tube out she is awake alert denies pain at the moment and no fevers overnight. Slightly tachycardic. Chest x-ray this morning revealed increased left midlung and basilar infiltrates concerning for pneumonia Antimicrobials: Meropenem, Vanco, Diflucan Indwelling: Left-sided RAFAL, PICC line, Cline catheter HEENT: Within normal limits. NECK: Supple. CHEST: Decreased breath sounds at the bases. HEART: S1 S2 ABDOMEN: Distended, bowel sounds hypoactive, mid abdominal dressing intact EXTREMITIES: Without cyanosis, clubbing, or edema. Assessment: 1. Sepsis s/p shock 2. Perforated bowel with multiple abscess and small bowel obstruction, status post laparotomy/open exploration 10/02/2018 3. HCAP 4. Non-ST elevation [place] 5. COPD Plan: Stable, continue antibiotics, follow surgical recommendations Consultation Date/Type/Reason Admit Date/Time Sep 15, 2018 at 03:32 Initial Consult Date 09/24/18 Type of Consult id Requesting Provider: LEOBARDO DC Date/Time of Note DATE: 10/05/18 TIME: 14:24 Exam/Review of Systems Exam Vitals Vital Signs Date Temp Pulse Resp B/P (MAP) Pulse Ox O2 O2 Flow FiO2 Time Delivery Rate 10/05/18 100 50 14:06 10/05/18 112 20 14:06 10/05/18 Vapotherm 13:39 10/05/18 98.1 118/59 11:37 (78) 10/05/18 4.0 01:53 Intake and Output 10/04/18 10/04/18 10/05/18 1515:00 23:00 07:00 IntakeIntake Total 630 ml 380 ml OutputOutput Total 1360 ml 1180 ml 900 ml BalanceBalance -730 ml -800 ml -900 ml Results Result Diagram: 10/05/18 0129 10/04/18 0600 Results 24hrs Laboratory Tests Test 10/04/18 17:38 10/04/18 18:26 10/04/18 21:27 10/05/18 01:20 Bedside Glucose 100 111 102 Hemoglobin 9.1 L Hematocrit 28.8 L Test 10/05/18 01:29 10/05/18 03:45 10/05/18 04:54 10/05/18 07:37 Hemoglobin 9.3 L Hematocrit 30.6 L Blood Gas Blood arterial Specimen Source Arterial Blood 10/05/2018 3:50:13 Date Drawn AM Arterial Blood 7.340 L pH (Temp corrected) Arterial Blood 54.7 H pCO2 (Temp correct) Arterial Blood 88.9 pO2 (Temp corrected) Arterial Blood 28.8 H HCO3 Arterial Blood 2.2 Base Excess Arterial Blood 96.7 Oxygen Saturatio n Flip Test ACCEPTAB Arterial Blood Right Radial Gas Puncture Site Arterial 0.3 Blood Carboxyhem oglobin Arterial Blood 0.4 Methemoglobin Blood Gas A-a O2 424.1 H Differential Oxyhemoglobin 96.0 Percent Blood Gas 37.0 Temperature Blood Gas Actual 20 Respiration Rate Blood Gas HFNC Modality FiO2 80.0 Blood Gas MM Notified Whom Blood Gas 10/05/2018 3:57:39 Notified Time AM Bedside Glucose 106 Lab Scanned BLOOD TRANSFUSIO Report N Test 10/05/18 08:44 10/05/18 12:56 Bedside Glucose 106 108 Medications Medication Current Medications IV Flush (NS 3 ml) 3 ml PER PROTOCOL IV ; Start 09/15/18 at 07:30 Ondansetron HCl (Zofran Inj) 4 mg Q6H PRN IV NAUSEA/VOMITING Last administered on 09/29/18 13:19; Admin Dose 4 MG; Start 09/15/18 at 07:30 Acetaminophen (Tylenol Tab) 650 mg Q6H PRN PO .PAIN 1-3 OR TEMP Last administered on 09/16/18at 21:56; Admin Dose 650 MG; Start 09/15/18 at 07:30 Baclofen (Lioresal) 10 mg BID PO Last administered on 09/23/18at 09:45; Admin Dose 10 MG; Start 09/15/18 at 09:00; Status Hold Buspirone HCl (Buspar) 10 mg BID PO Last administered on 09/23/18at 11:44; Admin Dose 10 MG; Start 09/15/18 at 09:00; Status Hold Calcium Carbonate (Oyster Shell Calcium) 1.25 gm BID PO Last administered on 09/23/18at 11:44; Admin Dose 1.25 GM; Start 09/15/18 at 09:00; Status Hold Clonazepam (Klonopin) 0.5 mg DAILY PRN PO ANXIETY Last administered on 09/23/18 02:04; Admin Dose 0.5 MG; Start 09/15/18 at 07:30; Status Hold Docusate Sodium (Colace) 100 mg BID PO Last administered on 09/23/18 09:43; Admin Dose 100 MG; Start 09/15/18 at 09:00; Status Hold Rifaximin (Xifaxan) 550 mg BID PO Last administered on 09/22/18 21:42; Admin Dose 550 MG; Start 09/15/18 at 09:00; Status Hold Sertraline HCl (Zoloft) 100 mg DAILY PO ; Start 09/15/18 at 09:00; Status Hold Fluticasone/ Vilanterol (Breo Ellipta 200-25 Mcg Inh) 1 inh DAILY INH Last administered on 10/05/18 09:59; Admin Dose 1 INH; Start 09/15/18 at 09:00 Albuterol/ Ipratropium (Duoneb) 3 ml Q3H RESP THERAPY PRN HHN WHEEZING AND SOB Last administered on 09/21/18 21:08; Admin Dose 3 ML; Start 09/15/18 at 08:00 Levalbuterol (Xopenex Neb) 0.63 mg Q4H RESP THERAPY HHN Last administered on 10/05/18 14:01; Admin Dose 0.63 MG; Start 09/15/18 at 17:00 Levalbuterol (Xopenex Neb) 0.63 mg Q2H RESP THERAPY PRN HHN WHEEZING AND SOB; Start 09/15/18 at 14:00 Collagenase (Santyl) 1 applic DAILY TOP Last administered on 10/05/18 09:00; Admin Dose 1 APPLIC; Start 09/16/18 at 15:00 Multivitamins Therapeutic (Theragran) 1 tab DAILY PO Last administered on 10/02/18 11:01; Admin Dose 1 TAB; Start 09/19/18 at 12:00 Ascorbic Acid (Vitamin C) 500 mg DAILY PO Last administered on 09/23/18 09:45; Admin Dose 500 MG; Start 09/19/18 at 12:00; Status Hold Zinc Sulfate (Zinc Sulfate) 220 mg DAILY PO Last administered on 09/22/18 08:50; Admin Dose 220 MG; Start 09/19/18 at 12:00; Status Hold Thiamine HCl (Vitamin B1) 50 mg DAILY PO Last administered on 09/23/18 09:45; Admin Dose 50 MG; Start 09/19/18 at 12:00; Status Hold Simethicone (Mylicon) 80 mg Q6H PRN PO DISTENSION/GAS/BLOATING Last administered on 09/22/18 23:50; Admin Dose 80 MG; Start 09/20/18 at 06:30 Diltiazem HCl (Cardizem Cd) 120 mg DAILY PO Last administered on 09/23/18 11:41; Admin Dose 120 MG; Start 09/20/18 at 09:00; Status Hold Zolpidem Tartrate (Ambien) 5 mg HS PRN PO INSOMNIA Last administered on 09/24/18 01:16; Admin Dose 5 MG; Start 09/21/18 at 02:00; Status Hold Phenol (Cepastat Lozenge) 1 lozenge Q1H PRN MT SORE THROAT Last administered on 09/22/18 03:32; Admin Dose 1 LOZENGE; Start 09/22/18 at 01:00 Levofloxacin (Levaquin) 500 mg DAILY@06 PO Last administered on 09/23/18 07:21; Admin Dose 500 MG; Start 09/23/18 at 06:00; Status Hold Metronidazole 100 ml @ 100 mls/hr Q8 IVPB Last administered on 09/23/18 22:03; Admin Dose 100 MLS/HR; Start 09/23/18 at 14:00; Status Hold Meropenem/Sodium Chloride 50 ml @ 100 mls/hr Q8H IVPB Last administered on 10/05/18 09:59; Admin Dose 100 MLS/HR; Start 09/24/18 at 02:30 Hydromorphone HCl (Dilaudid) 0.5 mg Q4H PRN IV SEVERE PAIN LEVEL 7-10 Last administered on 10/05/18 06:09; Admin Dose 0.5 MG; Start 09/24/18 at 03:00 Lorazepam (Ativan) 0.5 mg Q6H PRN IV ANXIETY Last administered on 10/05/18 00:15; Admin Dose 0.5 MG; Start 09/24/18 at 03:00 Pantoprazole (Protonix Iv) 40 mg BID@06,18 IV Last administered on 10/05/18at 06:09; Admin Dose 40 MG; Start 09/24/18 at 18:00 Miscellaneous Information 1 ea NOTE XX ; Start 09/25/18 at 22:00 Glucose (Glutose) 15 gm Q15M PRN PO DECREASED GLUCOSE; Start 09/25/18 at 22:00 Glucose (Glutose) 22.5 gm Q15M PRN PO DECREASED GLUCOSE; Start 09/25/18 at 22:00 Dextrose (D50w Syringe) 25 ml Q15M PRN IV DECREASED GLUCOSE Last administered on 09/30/18at 01:04; Admin Dose 25 ML; Start 09/25/18 at 22:00 Dextrose (D50w Syringe) 50 ml Q15M PRN IV DECREASED GLUCOSE; Start 09/25/18 at 22:00 Glucagon (Glucagen) 1 mg Q15M PRN IM DECREASED GLUCOSE; Start 09/25/18 at 22:00 Glucose (Glutose) 15 gm Q15M PRN BUCCAL DECREASED GLUCOSE; Start 09/25/18 at 22:00 Mupirocin (Bactroban) 1 applic BID TOP Last administered on 10/05/18at 09:59; Adm in Dose 1 APPLIC; Start 09/26/18 at 21:00; Stop 10/06/18 at 09:01 Methadone HCl (Methadone Liq) 2 mg Q4 SL Last administered on 10/05/18at 12:51; Admin Dose 2 MG; Start 09/28/18 at 09:30 IV Flush (NS 10 ml) 10 ml PRN PRN IV IV PROTOCOL; Start 09/30/18 at 19:30 Total Parenteral Nutrition 1,000 ml @ 60 mls/hr [id number] IV Last administered on 10/05/18at 04:54; Admin Dose 60 MLS/HR; Start 10/01/18 at 18:00 Insulin Aspart (Novolog Insulin Pen) NOVOLOG *MILD* ALGORITHM WITH MEALS BEDTIME SC Last administered on 10/03/18at 13:02; Admin Dose 2 UNIT; Start 10/01/18 at 21:00 Diagnostic Test (Pha) (Accu-Chek) 1 ea Q4 XX Last administered on 10/05/18at 04:53; Admin Dose 1 EA; Start 10/03/18 at 13:00 Vancomycin HCl (Vanco Iv Per Pharmacy) VANCOMYCIN PER PHARMACY PER PROTOCOL XX ; Start 10/03/18 at 13:30 Fluconazole/ Sodium Chloride 50 ml @ 50 mls/hr Q24H IVPB Last administered on 10/05/18at 12:50; Admin Dose 50 MLS/HR; Start 10/03/18 at 13:30 Vancomycin HCl 100 ml @ 100 mls/hr Q24H IVPB Last administered on 10/04/18at 14:33; Admin Dose 100 MLS/HR; Start 10/04/18 at 14:00 SKY BENAVIDES NP Oct 05, 2018 14:25
[2018-10-05] MEDS: VANCOMYCIN 500 MG (PMX) 100 ML IVPB SCH (15:02)
[2018-10-06 00:23] VITALS: BP 135/78; PULSE 99; RESP 17
[2018-10-06] MEDS: METHADONE (1 MG/ML 5 ML PO UD SYG) SL SCH ×6 (00:47→21:00)
[2018-10-06] MEDS: HYDROmorphONE 0.5 MG/0.5 ML SYG IV PRN ×3 (00:48→23:20)
[2018-10-06] MEDS: ACCU-CHEK XX SCH ×6 (01:00→20:58)
[2018-10-06] MEDS: LEVALBUTEROL (NEB) 0.63 MG/3 ML AMP HHN SCH ×5 (01:28→20:13)
[2018-10-06] MEDS: MEROPENEM 1 GM/50ML(PMX) 50 ML IVPB SCH ×3 (02:40→18:31)
[2018-10-06] MEDS: PANTOPRAZOLE 40 MG INJ IV SCH ×2 (06:06→18:31)
[2018-10-06 07:08] VITALS: BP 134/74; PULSE 117; RESP 18
[2018-10-06] MEDS: INSULIN ASPART [NOVOLOG] 3 ML PEN SC SCH ×4 (07:55→20:58)
--- NOTE | 2018-10-06 07:56 | PN ---
DATE: 10/06/2018 SUBJECTIVE: The patient is in serious but stable condition on high flow oxygen. No other events not ed. OBJECTIVE: VITAL SIGNS: Blood pressure 138/78, respirations 17, pulse 99, temperature 98.1. HEENT: Head is normocephalic. LUNGS: Show diminished breath sounds at the base. ABDOMEN: Soft, nontender to palpation without rebound or guarding. EXTREMITIES: Negative for clubbing, cyanosis. Trace edema. DERMATOLOGIC: No rashes. MUSCULOSKELETAL: No joint effusion. NEUROLOGIC: No change in exam. MEDICATIONS: Have been reviewed. LABORATORY DATA: Has been reviewed. IMAGING STUDIES: Have been reviewed. ASSESSMENT AND PLAN: 1. Nonoliguric acute kidney injury. Etiology is secondary to hemodynamics. Renal function has stab ilized. Continue to monitor. 2. Hypomagnesemia, improved. Continue to monitor. 3. Small-bowel obstruction status post laparotomy with partial colectomy. Continue to monitor. Fol low up with general surgery. 4. Sepsis, status post shock. Continue current antibiotic regimen. Cultures have been reviewed. 5. Volume overload. The patient's fluid has been adjusted. Monitor closely. Give diuretic therapy as needed. 6. Acute hypoxemic respiratory failure secondary to pneumonia, chronic obstructive pulmonary disease . Continue high flow oxygen. Continue nebulizers. Follow up with pulmonary. 7. Acute encephalopathy. Etiology is toxic metabolic. 8. Nutrition. Continue TPN. Dictated By: RICHARD ORTIZ DO NR/NTS Conf#: [id number] DID#: [id number] CC: GERALDO VARGAS MD;*EndCC*
[2018-10-06] MEDS: MULTIVITAMINS THERAPEUTIC TAB PO SCH (09:00)
--- NOTE | 2018-10-06 09:24 | CONS ---
Consultation Date/Type/Reason Admit Date/Time Sep 15, 2018 at 03:32 Initial Consult Date 09/15/18 Type of Consult Pulmonary Patient is complaining of diarrhea as well as significant left lower quadrant abdominal pain. Denies any fever, chills, any vomiting. Shortness of breath has resolved. General exam; elderly female, laying in bed. H EENT exam; supple no JVD. No lymphadenopathy. Midline trachea. No thyromegaly. Pharynx is clear. Patient is edentulous. Chest exam; diminished but clear breath sounds. S1-S2 audible, no murmurs. Regular rhythm. Abdomen exam; soft, there is left lower quadrant tenderness , bowel sounds audible. Extremity exam; no peripheral edema. GED INSTRUCTOR exam; patient is awake alert exhibiting no focal deficit. Assessment and recommendations; 1. Patient admitted with COPD exacerbation with interval improvement. 2. Significant spike and leukocytosis with abdominal pain as well as diarrhea. Add Flagyl 5 mg IV every [address] of abdomen pelvis with contrast. Obtain surgical consult. Requesting Provider: LEOBARDO DC Date/Time of Note DATE: 10/06/18 TIME: 09:22 24 HR Interval Summary Free Text/Dictation Patient's condition is tenuous at best. Still on high flow nasal cannula at 50% FiO2. Patient denies any shortness of breath at rest. Complains of mild abdominal pain without any vomiting. General exam; elderly woman, appears quite emaciated. Awake. Currently in no distress. H ENT exam; supple neck, no JVD. No lymphadenopathy. Midline trachea. No thyromegaly. Patient is edentulous. Nasogastric tube in place. Chest exam; diminished breath sounds bilaterally. S1-S2 audible, no murmurs. Regular rhythm. Abdomen exam; midline dressing in place. Colostomy in place. Bowel sounds are absent. Abdomen is mildly tender. Extremity exam; no peripheral edema. GED INSTRUCTOR exam; no focal deficit. CT chest from yesterday showing small left pleural effusion with left lower lobe infiltrate. Chest x-ray showing similar findings. Assessment and recommendations; 1. Patient initially admitted with acute bronchitis but then developed acute abdomen due to bowel perforation but the patient refused surgery at least for a week before finally consenting. Underwent laparotomy with discovery of perforated bowel requiring colostomy. Multiple intra-abdominal abscesses were found. 2. Left lower lobe pneumonia. Possibly aspiration. 3. Persistent ileus. 4. Emaciated state. 5. Mild hypercapnia. Continue current supportive care. Continue current antimicrobial regimen. Continue TPN. Obtain follow-up chest x-ray in 24 hours. Exam/Review of Systems Exam Vitals Vital Signs Date Temp Pulse Resp B/P (MAP) Pulse Ox O2 O2 Flow FiO2 Time Delivery Rate 10/06/18 118 21 94 Nasal 25.0 50 09:01 Cannula 10/06/18 98.2 134/74 07:08 (94) Intake and Output 10/05/18 10/05/18 10/06/18 1515:00 23:00 07:00 IntakeIntake Total 520 ml 510 ml OutputOutput Total 1330 ml 1160 ml BalanceBalance -810 ml -650 ml Results Result Diagram: 10/06/18 0622 10/06/18 0622 Results 24hrs Laboratory Tests Test 10/05/18 12:56 10/05/18 17:20 10/05/18 21:04 10/06/18 01:18 Bedside Glucose 108 118 124 113 Test 10/06/18 06:12 10/06/18 06:22 10/06/18 08:40 Bedside Glucose 118 122 White Blood Count 9.8 # Red Blood Count 3.68 #L Hemoglobin 10.7 L Hematocrit 33.9 L Mean Corpuscular Volume 92.1 Mean Corpuscular 29.1 Hemoglobin Mean Corpuscular 31.6 L Hemoglobin Concent Red Cell Distribution 16.5 H Width Platelet Count 154 Mean Platelet Volume 12.1 H Immature Granulocytes % 0.600 H Neutrophils % 64.2 Lymphocytes % 20.1 Monocytes % 6.7 Eosinophils % 7.6 H Basophils % 0.8 Nucleated Red Blood 0.0 Cells % Immature Granulocytes # 0.060 H Neutrophils # 6.3 Lymphocytes # 2.0 Monocytes # 0.7 Eosinophils # 0.8 H Basophils # 0.1 Nucleated Red Blood 0.0 Cells # Sodium Level 135 Potassium Level 3.9 Chloride Level 96 L Carbon Dioxide Level 37 H Anion Gap 2 L Blood Urea Nitrogen 12 Creatinine 0.40 L Est Glomerular Filtrat > 60 Rate mL/min Glucose Level 119 Calcium Level 7.1 L Phosphorus Level 2.2 L Magnesium Level 1.7 Prealbumin 4.6 L Medications Medication Current Medications IV Flush (NS 3 ml) 3 ml PER PROTOCOL IV ; Start 09/15/18 at 07:30 Ondansetron HCl (Zofran Inj) 4 mg Q6H PRN IV NAUSEA/VOMITING Last administered on 09/29/18 13:19; Admin Dose 4 MG; Start 09/15/18 at 07:30 Acetaminophen (Tylenol Tab) 650 mg Q6H PRN PO .PAIN 1-3 OR TEMP Last administered on 09/16/18 21:56; Admin Dose 650 MG; Start 09/15/18 at 07:30 Baclofen (Lioresal) 10 mg BID PO Last administered on 09/23/18 09:45; Admin Dose 10 MG; Start 09/15/18 at 09:00; Status Hold Buspirone HCl (Buspar) 10 mg BID PO Last administered on 09/23/18 11:44; Admin Dose 10 MG; Start 09/15/18 at 09:00; Status Hold Calcium Carbonate (Oyster Shell Calcium) 1.25 gm BID PO Last administered on 09/23/18 11:44; Admin Dose 1.25 GM; Start 09/15/18 at 09:00; Status Hold Clonazepam (Klonopin) 0.5 mg DAILY PRN PO ANXIETY Last administered on 09/23/18 02:04; Admin Dose 0.5 MG; Start 09/15/18 at 07:30; Status Hold Docusate Sodium (Colace) 100 mg BID PO Last administered on 09/23/18 09:43; Admin Dose 100 MG; Start 09/15/18 at 09:00; Status Hold Rifaximin (Xifaxan) 550 mg BID PO Last administered on 09/22/18 21:42; Admin Dose 550 MG; Start 09/15/18 at 09:00; Status Hold Sertraline HCl (Zoloft) 100 mg DAILY PO ; Start 09/15/18 at 09:00; Status Hold Fluticasone/ Vilanterol (Breo Ellipta 200-25 Mcg Inh) 1 inh DAILY INH Last administered on 10/05/18 09:59; Admin Dose 1 INH; Start 09/15/18 at 09:00 Albuterol/ Ipratropium (Duoneb) 3 ml Q3H RESP THERAPY PRN HHN WHEEZING AND SOB Last administered on 09/21/18 21:08; Admin Dose 3 ML; Start 09/15/18 at 08:00 Levalbuterol (Xopenex Neb) 0.63 mg Q4H RESP THERAPY HHN Last administered on 10/06/18 09:03; Admin Dose 0.63 MG; Start 09/15/18 at 17:00 Levalbuterol (Xopenex Neb) 0.63 mg Q2H RESP THERAPY PRN HHN WHEEZING AND SOB; Start 09/15/18 at 14:00 Collagenase (Santyl) 1 applic DAILY TOP Last administered on 10/05/18 09:00; Admin Dose 1 APPLIC; Start 09/16/18 at 15:00 Multivitamins Therapeutic (Theragran) 1 tab DAILY PO Last administered on 10/02/18 11:01; Admin Dose 1 TAB; Start 09/19/18 at 12:00 Ascorbic Acid (Vitamin C) 500 mg DAILY PO Last administered on 09/23/18 09:45; Admin Dose 500 MG; Start 09/19/18 at 12:00; Status Hold Zinc Sulfate (Zinc Sulfate) 220 mg DAILY PO Last administered on 09/22/18 08:50; Admin Dose 220 MG; Start 09/19/18 at 12:00; Status Hold Thiamine HCl (Vitamin B1) 50 mg DAILY PO Last administered on 09/23/18 09:45; Admin Dose 50 MG; Start 09/19/18 at 12:00; Status Hold Simethicone (Mylicon) 80 mg Q6H PRN PO DISTENSION/GAS/BLOATING Last administered on 09/22/18 23:50; Admin Dose 80 MG; Start 09/20/18 at 06:30 Diltiazem HCl (Cardizem Cd) 120 mg DAILY PO Last administered on 09/23/18 11:41; Admin Dose 120 MG; Start 09/20/18 at 09:00; Status Hold Zolpidem Tartrate (Ambien) 5 mg HS PRN PO INSOMNIA Last administered on 09/24/18 01:16; Admin Dose 5 MG; Start 09/21/18 at 02:00; Status Hold Phenol (Cepastat Lozenge) 1 lozenge Q1H PRN MT SORE THROAT Last administered on 09/22/18 03:32; Admin Dose 1 LOZENGE; Start 09/22/18 at 01:00 Levofloxacin (Levaquin) 500 mg DAILY@06 PO Last administered on 09/23/18at 07:21; Admin Dose 500 MG; Start 09/23/18 at 06:00; Status Hold Metronidazole 100 ml @ 100 mls/hr Q8 IVPB Last administered on 09/23/18at 22:0 3; Admin Dose 100 MLS/HR; Start 09/23/18 at 14:00; Status Hold Meropenem/Sodium Chloride 50 ml @ 100 mls/hr Q8H IVPB Last administered on 10/06/18at 02:40; Admin Dose 100 MLS/HR; Start 09/24/18 at 02:30 Hydromorphone HCl (Dilaudid) 0.5 mg Q4H PRN IV SEVERE PAIN LEVEL 7-10 Last administered on 10/06/18at 00:48; Admin Dose 0.5 MG; Start 09/24/18 at 03:00 Lorazepam (Ativan) 0.5 mg Q6H PRN IV ANXIETY Last administered on 10/05/18at 00:15; Admin Dose 0.5 MG; Start 09/24/18 at 03:00 Pantoprazole (Protonix Iv) 40 mg BID@06,18 IV Last administered on 10/06/18 06:06; Admin Dose 40 MG; Start 09/24/18 at 18:00 Miscellaneous Information 1 ea NOTE XX ; Start 09/25/18 at 22:00 Glucose (Glutose) 15 gm Q15M PRN PO DECREASED GLUCOSE; Start 09/25/18 at 22:00 Glucose (Glutose) 22.5 gm Q15M PRN PO DECREASED GLUCOSE; Start 09/25/18 at 22:00 Dextrose (D50w Syringe) 25 ml Q15M PRN IV DECREASED GLUCOSE Last administered on 09/30/18at 01:04; Admin Dose 25 ML; Start 09/25/18 at 22:00 Dextrose (D50w Syringe) 50 ml Q15M PRN IV DECREASED GLUCOSE; Start 09/25/18 at 22:00 Glucagon (Glucagen) 1 mg Q15M PRN IM DECREASED GLUCOSE; Start 09/25/18 at 22:00 Glucose (Glutose) 15 gm Q15M PRN BUCCAL DECREASED GLUCOSE; Start 09/25/18 at 22:00 Methadone HCl (Methadone Liq) 2 mg Q4 SL Last administered on 10/06/18 06:07; Admin Dose 2 MG; Start 09/28/18 at 09:30 IV Flush (NS 10 ml) 10 ml PRN PRN IV IV PROTOCOL; Start 09/30/18 at 19:30 Total Parenteral Nutrition 1,000 ml @ 60 mls/hr [id number] IV Last administered on 10/05/18 21:07; Admin Dose 60 MLS/HR; Start 10/01/18 at 18:00 Insulin Aspart (Novolog Insulin Pen) NOVOLOG *MILD* ALGORITHM WITH MEALS BEDTIME SC Last administered on 10/03/18 13:02; Admin Dose 2 UNIT; Start 10/01/18 at 21:00 Diagnostic Test (Pha) (Accu-Chek) 1 ea Q4 XX Last administered on 10/05/18 04:53; Admin Dose 1 EA; Start 10/03/18 at 13:00 Vancomycin HCl (Vanco Iv Per Pharmacy) VANCOMYCIN PER PHARMACY PER PROTOCOL XX ; Start 10/03/18 at 13:30 Fluconazole/ Sodium Chloride 50 ml @ 50 mls/hr Q24H IVPB Last administered on 10/05/18at 12:50; Admin Dose 50 MLS/HR; Start 10/03/18 at 13:30 Vancomycin HCl 100 ml @ 100 mls/hr Q24H IVPB Last administered on 10/05/18at 15:02; Admin Dose 100 MLS/HR; Start 10/04/18 at 14:00 Miscellaneous Information (*Rx Drug Level Order Reminder*) VANCO TROUGH 10/06 @ 1,300 1300 ONCE XX ; Start 10/06/18 at 13:00; Stop 10/06/18 at 13:01 Potassium Phosphate 30 mm/ Sodium Chloride 510 ml @ 65 mls/hr ONCE ONCE IVPB ; Start 10/06/18 at 10:30; Stop 10/06/18 at 18:20 JOSÉ MIGUEL THOMSON Oct 06, 2018 09:24
[2018-10-06] MEDS: ONDANSETRON 4 MG INJ IV PRN (09:49)
[2018-10-06] MEDS: MUPIROCIN 2% 22 GM OINT TOP SCH (09:49)
[2018-10-06] MEDS: FLUTICASONE/VILANTEROL 200-25 INH DEVICE INH SCH (09:49)
--- NOTE | 2018-10-06 10:10 | CONS ---
Assessment/Plan Assessment/Plan Assessment/Plan (Daily) Hospital visit 10/05 So far patient has done well on sublingual methadone. Denies nausea vomiting somnolence pain is controlled History of IV drug abuse History of poly substance abuse Hstory of perforated viscous Sepsis syndrome Consultation Date/Type/Reason Admit Date/Time Sep 15, 2018 at 03:32 Date/Time of Note DATE: 10/06/18 TIME: 10:07 Past Medical History Home Meds Active Scripts Pantoprazole* (Pantoprazole*) 40 Mg Tablet.dr, 40 MG PO DAILY@06 for 14 Days, #14 Prov:RICKIE DALTON MD 06/12/18 Apixaban* (Eliquis*) 5 Mg Tablet, 10 MG PO BID for 30 Days, #60 TAB 10 mg twice daily for 5 days, then 5 mg twice daily Prov:RICKIE DALTON MD 06/12/18 Methadone Hcl* (Methadone*) 5 Mg/5 Ml Solution, 68 MG PO DAILY for 30 Days, ML Prov:STU ORTEZ 04/14/18 Salmeterol Xinaf/Fluticasone* (Advair*) 250-50 Diskus Inhaler, 1 INH INHALATION BID for 30 Days, #1 INHALER Prov:ZHANG WARE NP 02/28/16 Albuterol Sulfate* (Proair HFA*) 8.5 Gm Hfa.aer.ad, 2 PUFF INH Q6 for SHORTNESS OF BREATH for 14 Days, #1 INHALER Prov:ZHANG WARE [employer] 02/28/16 Reported Medications Sertraline Hcl* (Sertraline Hcl*) 25 Mg Tablet, 25 MG PO DAILY, #30 TAB 09/15/18 Buspirone Hcl* (Buspirone Hcl*) 10 Mg Tab, 10 MG PO BID, TAB 09/15/18 Clonazepam* (Clonazepam*) 0.5 Mg Tablet, 0.5 MG PO DAILY PRN for ANXIETY, TAB 09/15/18 Ipratropium-Albuterol (Ipratropium-Albuterol) 0.5-3 Mg/3 Ml Ampul.neb, 3 ML INHALATION Q6 PRN for WHEEZING AND SOB, #30 VIAL 09/15/18 Carvedilol* (Carvedilol*) 6.25 Mg Tablet, 6.25 MG PO BID, #60 TAB 09/15/18 Cholecalciferol (Vitamin D3) (VITAMIN D-3) 2,000 Unit Capsule, 2000 U PO DAILY for 30 Days 04/30/18 Amlodipine Besylate* (Amlodipine Besylate*) 5 Mg Tablet, 5 MG PO DAILY for 30 Days, #30 04/30/18 Baclofen* (Baclofen*) 10 Mg Tablet, 10 MG PO BID 04/30/18 Calcium Carbonate ([id number]) 500 Mg Tablet, 500 MG PO BID, TAB 04/30/18 Medications Current Medications IV Flush (NS 3 ml) 3 ml PER PROTOCOL IV ; Start 09/15/18 at 07:30 Ondansetron HCl (Zofran Inj) 4 mg Q6H PRN IV NAUSEA/VOMITING Last administered on 10/06/18 09:49; Admin Dose 4 MG; Start 09/15/18 at 07:30 Acetaminophen (Tylenol Tab) 650 mg Q6H PRN PO .PAIN 1-3 OR TEMP Last administered on 09/16/18 21:56; Admin Dose 650 MG; Start 09/15/18 at 07:30 Baclofen (Lioresal) 10 mg BID PO Last administered on 09/23/18 09:45; Admin Dose 10 MG; Start 09/15/18 at 09:00; Status Hold Buspirone HCl (Buspar) 10 mg BID PO Last administered on 09/23/18 11:44; Admin Dose 10 MG; Start 09/15/18 at 09:00; Status Hold Calcium Carbonate (Oyster Shell Calcium) 1.25 gm BID PO Last administered on 09/23/18 11:44; Admin Dose 1.25 GM; Start 09/15/18 at 09:00; Status Hold Clonazepam (Klonopin) 0.5 mg DAILY PRN PO ANXIETY Last administered on 09/23/18 02:04; Admin Dose 0.5 MG; Start 09/15/18 at 07:30; Status Hold Docusate Sodium (Colace) 100 mg BID PO Last administered on 09/23/18 09:43; Admin Dose 100 MG; Start 09/15/18 at 09:00; Status Hold Rifaximin (Xifaxan) 550 mg BID PO Last administered on 09/22/18 21:42; Admin Dose 550 MG; Start 09/15/18 at 09:00; Status Hold Sertraline HCl (Zoloft) 100 mg DAILY PO ; Start 09/15/18 at 09:00; Status Hold Fluticasone/ Vilanterol (Breo Ellipta 200-25 Mcg Inh) 1 inh DAILY INH Last administered on 10/06/18 09:49; Admin Dose 1 INH; Start 09/15/18 at 09:00 Albuterol/ Ipratropium (Duoneb) 3 ml Q3H RESP THERAPY PRN HHN WHEEZING AND SOB Last administered on 09/21/18 21:08; Admin Dose 3 ML; Start 09/15/18 at 08:00 Levalbuterol (Xopenex Neb) 0.63 mg Q4H RESP THERAPY HHN Last administered on 10/06/18 09:03; Admin Dose 0.63 MG; Start 09/15/18 at 17:00 Levalbuterol (Xopenex Neb) 0.63 mg Q2H RESP THERAPY PRN HHN WHEEZING AND SOB; Start 09/15/18 at 14:00 Collagenase (Santyl) 1 applic DAILY TOP Last administered on 10/05/18 09:00; Admin Dose 1 APPLIC; Start 09/16/18 at 15:00 Multivitamins Therapeutic (Theragran) 1 tab DAILY PO Last administered on 10/02/18 11:01; Admin Dose 1 TAB; Start 09/19/18 at 12:00 Ascorbic Acid (Vitamin C) 500 mg DAILY PO Last administered on 09/23/18 09:45; Admin Dose 500 MG; Start 09/19/18 at 12:00; Status Hold Zinc Sulfate (Zinc Sulfate) 220 mg DAILY PO Last administered on 09/22/18 08:50; Admin Dose 220 MG; Start 09/19/18 at 12:00; Status Hold Thiamine HCl (Vitamin B1) 50 mg DAILY PO Last administered on 09/23/18 09:45; Admin Dose 50 MG; Start 09/19/18 at 12:00; Status Hold Simethicone (Mylicon) 80 mg Q6H PRN PO DISTENSION/GAS/BLOATING Last administered on 09/22/18 23:50; Admin Dose 80 MG; Start 09/20/18 at 06:30 Diltiazem HCl (Cardizem Cd) 120 mg DAILY PO Last administered on 09/23/18 11:41; Admin Dose 120 MG; Start 09/20/18 at 09:00; Status Hold Zolpidem Tartrate (Ambien) 5 mg HS PRN PO INSOMNIA Last administered on 09/24/18 01:16; Admin Dose 5 MG; Start 09/21/18 at 02:00; Status Hold Phenol (Cepastat Lozenge) 1 lozenge Q1H PRN MT SORE THROAT Last administered on 09/22/18 03:32; Admin Dose 1 LOZENGE; Start 09/22/18 at 01:00 Levofloxacin (Levaquin) 500 mg DAILY@06 PO Last administered on 09/23/18 07:21; Admin Dose 500 MG; Start 09/23/18 at 06:00; Status Hold Metronidazole 100 ml @ 100 mls/hr Q8 IVPB Last administered on 09/23/18 22:03; Admin Dose 100 MLS/HR; Start 09/23/18 at 14:00; Status Hold Meropenem/Sodium Chloride 50 ml @ 100 mls/hr Q8H IVPB Last administered on 10/06/18 09:49; Admin Dose 100 MLS/HR; Start 09/24/18 at 02:30 Hydromorphone HCl (Dilaudid) 0.5 mg Q4H PRN IV SEVERE PAIN LEVEL 7-10 Last administered on 10/06/18 09:49; Admin Dose 0.5 MG; Start 09/24/18 at 03:00 Lorazepam (Ativan) 0.5 mg Q6H PRN IV ANXIETY Last administered on 10/05/18 00: 15; Admin Dose 0.5 MG; Start 09/24/18 at 03:00 Pantoprazole (Protonix Iv) 40 mg BID@06,18 IV Last administered on 10/06/18 06:06; Admin Dose 40 MG; Start 09/24/18 at 18:00 Miscellaneous Information 1 ea NOTE XX ; Start 09/25/18 at 22:00 Glucose (Glutose) 15 gm Q15M PRN PO DECREASED GLUCOSE; Start 09/25/18 at 22:00 Glucose (Glutose) 22.5 gm Q15M PRN PO DECREASED GLUCOSE; Start 09/25/18 at 22:00 Dextrose (D50w Syringe) 25 ml Q15M PRN IV DECREASED GLUCOSE Last administered on 09/30/18at 01:04; Admin Dose 25 ML; Start 09/25/18 at 22:00 Dextrose (D50w Syringe) 50 ml Q15M PRN IV DECREASED GLUCOSE; Start 09/25/18 at 22:00 Glucagon (Glucagen) 1 mg Q15M PRN IM DECREASED GLUCOSE; Start 09/25/18 at 22:00 Glucose (Glutose) 15 gm Q15M PRN BUCCAL DECREASED GLUCOSE; Start 09/25/18 at 22:00 Methadone HCl (Methadone Liq) 2 mg Q4 SL Last administered on 10/06/18at 06:07; Admin Dose 2 MG; Start 09/28/18 at 09:30 IV Flush (NS 10 ml) 10 ml PRN PRN IV IV PROTOCOL; Start 09/30/18 at 19:30 Total Parenteral Nutrition 1,000 ml @ 60 mls/hr [id number] IV Last administered on 10/05/18at 21:07; Admin Dose 60 MLS/HR; Start 10/01/18 at 18:00 Insulin Aspart (Novolog Insulin Pen) NOVOLOG *MILD* ALGORITHM WITH MEALS BEDTIME SC Last administered on 10/03/18 13:02; Admin Dose 2 UNIT; Start 10/01/18 at 21:00 Diagnostic Test (Pha) (Accu-Chek) 1 ea Q4 XX Last administered on 10/06/18at 09:50; Admin Dose 1 EA; Start 10/03/18 at 13:00 Vancomycin HCl (Vanco Iv Per Pharmacy) VANCOMYCIN PER PHARMACY PER PROTOCOL XX ; Start 10/03/18 at 13:30 Fluconazole/ Sodium Chloride 50 ml @ 50 mls/hr Q24H IVPB Last administered on at 12:50; Admin Dose 50 MLS/HR; Start 10/03/18 at 13:30 Vancomycin HCl 100 ml @ 100 mls/hr Q24H IVPB Last administered on 10/05/18at 15:02; Admin Dose 100 MLS/HR; Start 10/04/18 at 14:00 Miscellaneous Information (*Rx Drug Level Order Reminder*) VANCO TROUGH 10/06 @ 1,300 1300 ONCE XX ; Start 10/06/18 at 13:00; Stop 10/06/18 at 13:01 Potassium Phosphate 30 mm/ Sodium Chloride 510 ml @ 65 mls/hr ONCE ONCE IVPB ; Start 10/06/18 at 10:30; Stop 10/06/18 at 18:20 Allergies: Coded Allergies: Sulfa (Sulfonamide Antibiotics) (Verified Allergy, Mild, 09/17/18) chlorpromazine HCl (Verified Allergy, Unknown, 09/17/18) Uncoded Allergies: tape (Allergy, Mild, rash, 02/28/16) Past Surgical History Past Surgical Hx: no surgical history, other Social History Alcohol Use: none Smoking Status: Former smoker Drug Use: none Exam/Review of Systems Exam Vitals Vital Signs Date Temp Pulse Resp B/P (MAP) Pulse Ox O2 O2 Flow FiO2 Time Delivery Rate 10/06/18 118 21 94 Nasal 25.0 50 09:01 Cannula 10/06/18 98.2 134/74 07:08 (94) Intake and Output 10/05/18 10/05/18 10/06/18 1515:00 23:00 07:00 IntakeIntake Total 520 ml 510 ml OutputOutput Total 1330 ml 1160 ml BalanceBalance -810 ml -650 ml Constitutional: alert, oriented, well developed, frail Head: normocephalic, atraumatic ENMT: No nl external ears & nose, No nl lips & teeth, No nl nasal mucosa & septum, No mucosa pink and moist, No intubated, No tympanic membranes, No other Respiratory: clear to auscultation, normal air movement Cardiovascular: regular rate and rhythm, nl pulses Results Result Diagram: 10/06/1862110/06/18 0622 Results 24hrs Laboratory Tests Test 10/05/18 12:56 10/05/18 17:20 10/05/18 21:04 10/06/18 01:18 Bedside Glucose 108 118 124 113 Test 10/06/18 06:12 10/06/18 06:22 10/06/18 08:40 Bedside Glucose 118 122 White Blood Count 9.8 # Red Blood Count 3.68 #L Hemoglobin 10.7 L Hematocrit 33.9 L Mean Corpuscular Volume 92.1 Mean Corpuscular 29.1 Hemoglobin Mean Corpuscular 31.6 L Hemoglobin Concent Red Cell Distribution 16.5 H Width Platelet Count 154 Mean Platelet Volume 12.1 H Immature Granulocytes % 0.600 H Neutrophils % 64.2 Lymphocytes % 20.1 Monocytes % 6.7 Eosinophils % 7.6 H Basophils % 0.8 Nucleated Red Blood 0.0 Cells % Immature Granulocytes # 0.060 H Neutrophils # 6.3 Lymphocytes # 2.0 Monocytes # 0.7 Eosinophils # 0.8 H Basophils # 0.1 Nucleated Red Blood 0.0 Cells # Sodium Level 135 Potassium Level 3.9 Chloride Level 96 L Carbon Dioxide Level 37 H Anion Gap 2 L Blood Urea Nitrogen 12 Creatinine 0.40 L Est Glomerular Filtrat > 60 Rate mL/min Glucose Level 119 Calcium Level 7.1 L Phosphorus Level 2.2 L Magnesium Level 1.7 Prealbumin 4.6 L Medications Medication Current Medications IV Flush (NS 3 ml) 3 ml PER PROTOCOL IV ; Start 09/15/18 at 07:30 Ondansetron HCl (Zofran Inj) 4 mg Q6H PRN IV NAUSEA/VOMITING Last administered on 10/06/18 09:49; Admin Dose 4 MG; Start 09/15/18 at 07:30 Acetaminophen (Tylenol Tab) 650 mg Q6H PRN PO .PAIN 1-3 OR TEMP Last administered on 09/16/18 21:56; Admin Dose 650 MG; Start 09/15/18 at 07:30 Baclofen (Lioresal) 10 mg BID PO Last administered on 09/23/18 09:45; Admin Dose 10 MG; Start 09/15/18 at 09:00; Status Hold Buspirone HCl (Buspar) 10 mg BID PO Last administered on 09/23/18 11:44; Admin Dose 10 MG; Start 09/15/18 at 09:00; Status Hold Calcium Carbonate (Oyster Shell Calcium) 1.25 gm BID PO Last administered on 09/23/18 11:44; Admin Dose 1.25 GM; Start 09/15/18 at 09:00; Status Hold Clonazepam (Klonopin) 0.5 mg DAILY PRN PO ANXIETY Last administered on 09/23/18 02:04; Admin Dose 0.5 MG; Start 09/15/18 at 07:30; Status Hold Docusate Sodium (Colace) 100 mg BID PO Last administered on 09/23/18 09:43; Admin Dose 100 MG; Start 09/15/18 at 09:00; Status Hold Rifaximin (Xifaxan) 550 mg BID PO Last administered on 09/22/18 21:42; Admin Dose 550 MG; Start 09/15/18 at 09:00; Status Hold Sertraline HCl (Zoloft) 100 mg DAILY PO ; Start 09/15/18 at 09:00; Status Hold Fluticasone/ Vilanterol (Breo Ellipta 200-25 Mcg Inh) 1 inh DAILY INH Last administered on 10/06/18 09:49; Admin Dose 1 INH; Start 09/15/18 at 09:00 Albuterol/ Ipratropium (Duoneb) 3 ml Q3H RESP THERAPY PRN HHN WHEEZING AND SOB Last administered on 09/21/18 21:08; Admin Dose 3 ML; Start 09/15/18 at 08:00 Levalbuterol (Xopenex Neb) 0.63 mg Q4H RESP THERAPY HHN Last administered on 10/06/18 09:03; Admin Dose 0.63 MG; Start 09/15/18 at 17:00 Levalbuterol (Xopenex Neb) 0.63 mg Q2H RESP THERAPY PRN HHN WHEEZING AND SOB; Start 09/15/18 at 14:00 Collagenase (Santyl) 1 applic DAILY TOP Last administered on 10/05/18 09:00; Admin Dose 1 APPLIC; Start 09/16/18 at 15:00 Multivitamins Therapeutic (Theragran) 1 tab DAILY PO Last administered on 10/02/18 11:01; Admin Dose 1 TAB; Start 09/19/18 at 12:00 Ascorbic Acid (Vitamin C) 500 mg DAILY PO Last administered on 09/23/18 09:45; Admin Dose 500 MG; Start 09/19/18 at 12:00; Status Hold Zinc Sulfate (Zinc Sulfate) 220 mg DAILY PO Last administered on 09/22/18 08:50; Admin Dose 220 MG; Start 09/19/18 at 12:00; Status Hold Thiamine HCl (Vitamin B1) 50 mg DAILY PO Last administered on 09/23/18 09:45; Admin Dose 50 MG; Start 09/19/18 at 12:00; Status Hold Simethicone (Mylicon) 80 mg Q6H PRN PO DISTENSION/GAS/BLOATING Last administered on 09/22/18 23:50; Admin Dose 80 MG; Start 09/20/18 at 06:30 Diltiazem HCl (Cardizem Cd) 120 mg DAILY PO Last administered on 09/23/18 11:41; Admin Dose 120 MG; Start 09/20/18 at 09:00; Status Hold Zolpidem Tartrate (Ambien) 5 mg HS PRN PO INSOMNIA Last administered on 09/24/18 01:16; Admin Dose 5 MG; Start 09/21/18 at 02:00; Status Hold Phenol (Cepastat Lozenge) 1 lozenge Q1H PRN MT SORE THROAT Last administered on 09/22/18 03:32; Admin Dose 1 LOZENGE; Start 09/22/18 at 01:00 Levofloxacin (Levaquin) 500 mg DAILY@06 PO Last administered on 09/23/18 07:21; Admin Dose 500 MG; Start 09/23/18 at 06:00; Status Hold Metronidazole 100 ml @ 100 mls/hr Q8 IVPB Last administered on 09/23/18 22:03; Admin Dose 100 MLS/HR; Start 09/23/18 at 14:00; Status Hold Meropenem/Sodium Chloride 50 ml @ 100 mls/hr Q8H IVPB Last administered on 10/06/18 09:49; Admin Dose 100 MLS/HR; Start 09/24/18 at 02:30 Hydromorphone HCl (Dilaudid) 0.5 mg Q4H PRN IV SEVERE PAIN LEVEL 7-10 Last administered on 10/06/18 09:49; Admin Dose 0.5 MG; Start 09/24/18 at 03:00 Lorazepam (Ativan) 0.5 mg Q6H PRN IV ANXIETY Last administered on 10/05/18 00:15; Admin Dose 0.5 MG; Start 09/24/18 at 03:00 Pantoprazole (Protonix Iv) 40 mg BID@06,18 IV Last administered on 10/06/18 06:06; Admin Dose 40 MG; Start 09/24/18 at 18:00 Miscellaneous Information 1 ea NOTE XX ; Start 09/25/18 at 22:00 Glucose (Glutose) 15 gm Q15M PRN PO DECREASED GLUCOSE; Start 09/25/18 at 22:00 Glucose (Glutose) 22.5 gm Q15M PRN PO DECREASED GLUCOSE; Start 09/25/18 at 22:00 Dextrose (D50w Syringe) 25 ml Q15M PRN IV DECREASED GLUCOSE Last administered on 09/30/18at 01:04; Admin Dose 25 ML; Start 09/25/18 at 22:00 Dextrose (D50w Syringe) 50 ml Q15M PRN IV DECREASED GLUCOSE; Start 09/25/18 at 22:00 Glucagon (Glucagen) 1 mg Q15M PRN IM DECREASED GLUCOSE; Start 09/25/18 at 22:00 Glucose (Glutose) 15 gm Q15M PRN BUCCAL DECREASED GLUCOSE; Start 09/25/18 at 22:00 Methadone HCl (Methadone Liq) 2 mg Q4 SL Last administered on 10/06/18at 06:07; Admin Dose 2 MG; Start 09/28/18 at 09:30 IV Flush (NS 10 ml) 10 ml PRN PRN IV IV PROTOCOL; Start 09/30/18 at 19:30 Total Parenteral Nutrition 1,000 ml @ 60 mls/hr [id number] IV Last administered on 10/05/18at 21:07; Admin Dose 60 MLS/HR; Start 10/01/18 at 18:00 Insulin Aspart (Novolog Insulin Pen) NOVOLOG *MILD* ALGORITHM WITH MEALS BEDTIME SC Last administered on 10/03/18at 13:02; Admin Dose 2 UNIT; Start 10/01/18 at 21:00 Diagnostic Test (Pha) (Accu-Chek) 1 ea Q4 XX Last administered on 10/06/18at 09:50; Admin Dose 1 EA; Start 10/03/18 at 13:00 Vancomycin HCl (Vanco Iv Per Pharmacy) VANCOMYCIN PER PHARMACY PER PROTOCOL XX ; Start 10/03/18 at 13:30 Fluconazole/ Sodium Chloride 50 ml @ 50 mls/hr Q24H IVPB Last administered on 10/05/18at 12:50; Admin Dose 50 MLS/HR; Start 10/03/18 at 13:30 Vancomycin HCl 100 ml @ 100 mls/hr Q24H IVPB Last administered on 10/05/18at 15:02; Admin Dose 100 MLS/HR; Start 10/04/18 at 14:00 Miscellaneous Information (*Rx Drug Level Order Reminder*) VANCO TROUGH 10/06 @ 1,300 1300 ONCE XX ; Start 10/06/18 at 13:00; Stop 10/06/18 at 13:01 Potassium Phosphate 30 mm/ Sodium Chloride 510 ml @ 65 mls/hr ONCE ONCE IVPB ; Start 10/06/18 at 10:30; Stop 10/06/18 at 18:20 RUFINA LINK Oct 06, 2018 10:10
--- NOTE | 2018-10-06 10:20 | PN ---
Date/Time of Note Date/Time of Note DATE: 10/06/18 TIME: 10:16 Assessment/Plan VTE Prophylaxis Risk score (from Ns)>0 risk: 8 SCD applied (from Ns): Yes Pharmacological prophylaxis: NA/contraindicated Pharm contraindication: anticoag not tolerated Lines/Catheters IV Catheter Type (from Nrsg): PICC Line Central line still needed: Yes Urinary Cath still in place: Yes Reason Cath still needed: pres ulcer contaminated by urine Assessment/Plan Assessment/Plan 68-year-old woman with history of COPD, PE in May 2018, CKD, admitted for COPD exacerbation and found to have ileum perforation with abdominal abscess. #Small bowel perforation #Abdominal abscess - Weeks of abdominal distension, tenderness, bloating. - CT on 09/23 first showed pneumoperitoneum, taken to OR by Dr. Schumacher on 10/02, found to have perforated terminal ileum with abdominal abscess s/p drainage - Etiology is unclear. - ID following, on antibiotics. - NPO. Had NG tube to intermittent suction but the patient pulled it out. #Anemia - Likely due to abdominal perforation - Transfuse to Hgb>7 or for symptomatic anemia - Anticoag held for Hgb drop. # Hypoxic and hypercapnic respiratory failure: Resolved. - For now continue supplemental oxygen, bronchodilators, broad-spectrum antibiotics - PE in May 2018, currently on lovenox; eventually will transition back to Eliquis. - Had hypoxemic episode on 10/05, likely due to benzodiazepines, CTPA negative, if unable to wean off high-flow nasal cannula will investigate further. #MRSA colonization of the nares - On mupirocin GI: PPI DVT: lovenox, currently held. Result Diagram: 10/06/1862110/06/18 06 Subjective 24 Hr Interval Summary Free Text/Dictation Tried to wean patient off high-flow nasal cannula, failed. CXR shows new inf iltrate. Patient awake and alert. Continues to beg for ice chips. Exam/Review of Systems Exam Vitals Vital Signs Date Temp Pulse Resp B/P (MAP) Pulse Ox O2 O2 Flow FiO2 Time Delivery Rate 10/06/18 118 21 94 Nasal 25.0 50 09:01 Cannula 10/06/18 98.2 134/74 07:08 (94) Intake and Output 10/05/18 10/05/18 10/06/18 1515:00 23:00 07:00 IntakeIntake Total 520 ml 510 ml OutputOutput Total 1330 ml 1160 ml BalanceBalance -810 ml -650 ml Exam Gen: Thin frail appearing woman lying in bed, awake and alert. Head: Atraumatic, clear oropharynx Eyes: Normal Conjunctiva, ENT: Normal External Ears, Nose and Mouth. Moist mucous membranes. Neck: Full range of motion. No meningismus. Resp: Clear to auscultation bilaterally Cardio: Regular rate and rhythm, no murmurs Abd: Distended, soft, abdomen. Midline incision dressing clean and dry. Lap incisions clean and dry. Ext: No bilateral lower extremity edema Results Results 24hrs Laboratory Tests Test 10/05/18 12:56 10/05/18 17:20 10/05/18 21:04 10/06/18 01:18 Bedside Glucose 108 118 124 113 Test 10/06/18 06:12 10/06/18 06:22 10/06/18 08:40 Bedside Glucose 118 122 White Blood Count 9.8 # Red Blood Count 3.68 #L Hemoglobin 10.7 L Hematocrit 33.9 L Mean Corpuscular Volume 92.1 Mean Corpuscular 29.1 Hemoglobin Mean Corpuscular 31.6 L Hemoglobin Concent Red Cell Distribution 16.5 H Width Platelet Count 154 Mean Platelet Volume 12.1 H Immature Granulocytes % 0.600 H Neutrophils % 64.2 Lymphocytes % 20.1 Monocytes % 6.7 Eosinophils % 7.6 H Basophils % 0.8 Nucleated Red Blood 0.0 Cells % Immature Granulocytes # 0.060 H Neutrophils # 6.3 Lymphocytes # 2.0 Monocytes # 0.7 Eosinophils # 0.8 H Basophils # 0.1 Nucleated Red Blood 0.0 Cells # Sodium Level 135 Potassium Level 3.9 Chloride Level 96 L Carbon Dioxide Level 37 H Anion Gap 2 L Blood Urea Nitrogen 12 Creatinine 0.40 L Est Glomerular Filtrat > 60 Rate mL/min Glucose Level 119 Calcium Level 7.1 L Phosphorus Level 2.2 L Magnesium Level 1.7 Prealbumin 4.6 L Medications Medication Current Medications IV Flush (NS 3 ml) 3 ml PER PROTOCOL IV ; Start 09/15/18 at 07:30 Ondansetron HCl (Zofran Inj) 4 mg Q6H PRN IV NAUSEA/VOMITING Last administered on 10/06/18at 09:49; Admin Dose 4 MG; Start 09/15/18 at 07:30 Acetaminophen (Tylenol Tab) 650 mg Q6H PRN PO .PAIN 1-3 OR TEMP Last administered on 09/16/18 21:56; Admin Dose 650 MG; Start 09/15/18 at 07:30 Baclofen (Lioresal) 10 mg BID PO Last administered on 09/23/18 09:45; Admin Dose 10 MG; Start 09/15/18 at 09:00; Status Hold Buspirone HCl (Buspar) 10 mg BID PO Last administered on 09/23/18 11:44; Admin Dose 10 MG; Start 09/15/18 at 09:00; Status Hold Calcium Carbonate (Oyster Shell Calcium) 1.25 gm BID PO Last administered on 09/23/18 11:44; Admin Dose 1.25 GM; Start 09/15/18 at 09:00; Status Hold Clonazepam (Klonopin) 0.5 mg DAILY PRN PO ANXIETY Last administered on 09/23/18 02:04; Admin Dose 0.5 MG; Start 09/15/18 at 07:30; Status Hold Docusate Sodium (Colace) 100 mg BID PO Last administered on 09/23/18 09:43; Admin Dose 100 MG; Start 09/15/18 at 09:00; Status Hold Rifaximin (Xifaxan) 550 mg BID PO Last administered on 09/22/18 21:42; Admin Dose 550 MG; Start 09/15/18 at 09:00; Status Hold Sertraline HCl (Zoloft) 100 mg DAILY PO ; Start 09/15/18 at 09:00; Status Hold Fluticasone/ Vilanterol (Breo Ellipta 200-25 Mcg Inh) 1 inh DAILY INH Last administered on 10/06/18 09:49; Admin Dose 1 INH; Start 09/15/18 at 09:00 Albuterol/ Ipratropium (Duoneb) 3 ml Q3H RESP THERAPY PRN HHN WHEEZING AND SOB Last administered on 09/21/18 21:08; Admin Dose 3 ML; Start 09/15/18 at 08:00 Levalbuterol (Xopenex Neb) 0.63 mg Q4H RESP THERAPY HHN Last administered on 10/06/18 09:03; Admin Dose 0.63 MG; Start 09/15/18 at 17:00 Levalbuterol (Xopenex Neb) 0.63 mg Q2H RESP THERAPY PRN HHN WHEEZING AND SOB; Start 09/15/18 at 14:00 Collagenase (Santyl) 1 applic DAILY TOP Last administered on 10/05/18 09:00; Admin Dose 1 APPLIC; Start 09/16/18 at 15:00 Multivitamins Therapeutic (Theragran) 1 tab DAILY PO Last administered on 10/02/18 11:01; Admin Dose 1 TAB; Start 09/19/18 at 12:00 Ascorbic Acid (Vitamin C) 500 mg DAILY PO Last administered on 09/23/18 09:45; Admin Dose 500 MG; Start 09/19/18 at 12:00; Status Hold Zinc Sulfate (Zinc Sulfate) 220 mg DAILY PO Last administered on 09/22/18 08:50; Admin Dose 220 MG; Start 09/19/18 at 12:00; Status Hold Thiamine HCl (Vitamin B1) 50 mg DAILY PO Last administered on 09/23/18 09:45; Admin Dose 50 MG; Start 09/19/18 at 12:00; Status Hold Simethicone (Mylicon) 80 mg Q6H PRN PO DISTENSION/GAS/BLOATING Last administered on 09/22/18 23:50; Admin Dose 80 MG; Start 09/20/18 at 06:30 Diltiazem HCl (Cardizem Cd) 120 mg DAILY PO Last administered on 09/23/18 11:41; Admin Dose 120 MG; Start 09/20/18 at 09:00; Status Hold Zolpidem Tartrate (Ambien) 5 mg HS PRN PO INSOMNIA Last administered on 09/24/18 01:16; Admin Dose 5 MG; Start 09/21/18 at 02:00; Status Hold Phenol (Cepastat Lozenge) 1 lozenge Q1H PRN MT SORE THROAT Last administered on 09/22/18 03:32; Admin Dose 1 LOZENGE; Start 09/22/18 at 01:00 Levofloxacin (Levaquin) 500 mg DAILY@06 PO Last administered on 09/23/18 07:21; Admin Dose 500 MG; Start 09/23/18 at 06:00; Status Hold Metronidazole 100 ml @ 100 mls/hr Q8 IVPB Last administered on 09/23/18at 22:03; Admin Dose 100 MLS/HR; Start 09/23/18 at 14:00; Status Hold Meropenem/Sodium Chloride 50 ml @ 100 mls/hr Q8H IVPB Last administered on 10/06/18 09:49; Admin Dose 100 MLS/HR; Start 09/24/18 at 02:30 Hydromorphone HCl (Dilaudid) 0.5 mg Q4H PRN IV SEVERE PAIN LEVEL 7-10 Last administered on 10/06/18 09:49; Admin Dose 0.5 MG; Start 09/24/18 at 03:00 Lorazepam (Ativan) 0.5 mg Q6H PRN IV ANXIETY Last administered on 10/05/18 00:15; Admin Dose 0.5 MG; Start 09/24/18 at 03:00 Pantoprazole (Protonix Iv) 40 mg BID@06,18 IV Last administered on 10/06/18 06:06; Admin Dose 40 MG; Start 09/24/18 at 18:00 Miscellaneous Information 1 ea NOTE XX ; Start 09/25/18 at 22:00 Glucose (Glutose) 15 gm Q15M PRN PO DECREASED GLUCOSE; Start 09/25/18 at 22:00 Glucose (Glutose) 22.5 gm Q15M PRN PO DECREASED GLUCOSE; Start 09/25/18 at 22:00 Dextrose (D50w Syringe) 25 ml Q15M PRN IV DECREASED GLUCOSE Last administered on 09/30/18at 01:04; Admin Dose 25 ML; Start 09/25/18 at 22:00 Dextrose (D50w Syringe) 50 ml Q15M PRN IV DECREASED GLUCOSE; Start 09/25/18 at 22:00 Glucagon (Glucagen) 1 mg Q15M PRN IM DECREASED GLUCOSE; Start 09/25/18 at 22:00 Glucose (Glutose) 15 gm Q15M PRN BUCCAL DECREASED GLUCOSE; Start 09/25/18 at 22:00 Methadone HCl (Methadone Liq) 2 mg Q4 SL Last administered on 10/06/18 06:07; Admin Dose 2 MG; Start 09/28/18 at 09:30 IV Flush (NS 10 ml) 10 ml PRN PRN IV IV PROTOCOL; Start 09/30/18 at 19:30 Total Parenteral Nutrition 1,000 ml @ 60 mls/hr [id number] IV Last administered on 10/05/18at 21:07; Admin Dose 60 MLS/HR; Start 10/01/18 at 18:00 Insulin Aspart (Novolog Insulin Pen) NOVOLOG *MILD* ALGORITHM WITH MEALS BEDTIME SC Last administered on 10/03/18at 13:02; Admin Dose 2 UNIT; Start 10/01/18 at 21:00 Diagnostic Test (Pha) (Accu-Chek) 1 ea Q4 XX Last administered on 10/06/18at 09:50; Admin Dose 1 EA; Start 10/03/18 at 13:00 Vancomycin HCl (Vanco Iv Per Pharmacy) VANCOMYCIN PER PHARMACY PER PROTOCOL XX ; Start 10/03/18 at 13:30 Fluconazole/ Sodium Chloride 50 ml @ 50 mls/hr Q24H IVPB Last administered on 10/05/18at 12:50; Admin Dose 50 MLS/HR; Start 10/03/18 at 13:30 Vancomycin HCl 100 ml @ 100 mls/hr Q24H IVPB Last administered on 10/05/18at 15:02; Admin Dose 100 MLS/HR; Start 10/04/18 at 14:00 Miscellaneous Information (*Rx Drug Level Order Reminder*) VANCO TROUGH 10/06 @ 1,300 1300 ONCE XX ; Start 10/06/18 at 13:00; Stop 10/06/18 at 13:01 Potassium Phosphate 30 mm/ Sodium Chloride 510 ml @ 65 mls/hr ONCE ONCE IVPB ; Start 10/06/18 at 10:30; Stop 10/06/18 at 18:20 PRASHANT HILTON MD Oct 06, 2018 10:20
[2018-10-06] MEDS ORDERED: POTASSIUM PHOSPHATE 30 MM in SOD CHLORIDE 0.9% 500 ML IVPB ONE (10:30)
[2018-10-06] MEDS: BALSAM PERU/CASTOR OIL 60 GM TUBE TOP SCH ×2 (13:12→21:00)
[2018-10-06] MEDS: COLLAGENASE 5 GM (UD JAR) TOP SCH (13:12)
[2018-10-06] MEDS: FLUCONAZOLE 100 MG/50 ML (PMX) 50 ML IVPB SCH (13:30)
[2018-10-06] MEDS: VANCOMYCIN 500 MG (PMX) 100 ML IVPB SCH (14:57)
[2018-10-06 15:45] VITALS: BP 126/75; PULSE 109; RESP 18
[2018-10-06] MEDS: TPN 1,000 ML IV SCH (15:51)
--- NOTE | 2018-10-06 16:07 | CONS ---
Assessment/Plan Assessment/Plan Hospital Course (Demo Recall) 1130 Patient is sleeping, she is on high flow oxygen, looks comfortable, no fevers Chest x-ray 10/05/18 revealed increased left midlung and basilar infiltrates concerning for pneumonia Antimicrobials: Meropenem, Vanco, Diflucan Indwelling: Left-sided RAFAL, PICC line, Cline catheter HEENT: Within normal limits. NECK: Supple. CHEST: Decreased breath sounds at the bases. HEART: S1 S2 ABDOMEN: Distended, bowel sounds hypoactive, mid abdominal dressing intact EXTREMITIES: Without cyanosis, clubbing, or edema. Assessment: 1. Acute hypoxemic respiratory failure 1. Sepsis s/p shock 2. Perforated bowel with multiple abscess and small bowel obstruction, status post laparotomy/open exploration 10/02/2018 3. HCAP 4. Non-ST elevation FL 5. COPD Plan: Remains unchanged, continue antibiotics, follow surgicalpulmonary recommendations Consultation Date/Type/Reason Admit Date/Time Sep 15, 2018 at 03:32 Initial Consult Date 09/24/18 Type of Consult id Requesting Provider: LEOBARDO DC Date/Time of Note DATE: 10/06/18 TIME: 16:06 Exam/Review of Systems Exam Vitals Vital Signs Date Temp Pulse Resp B/P (MAP) Pulse Ox O2 O2 Flow FiO2 Time Delivery Rate 10/06/18 118 21 94 Nasal 25.0 50 09:01 Cannula 10/06/18 98.2 134/74 07:08 (94) Intake and Output 10/05/18 10/05/18 10/06/18 1515:00 23:00 07:00 IntakeIntake Total 520 ml 510 ml OutputOutput Total 1330 ml 1160 ml BalanceBalance -810 ml -650 ml Results Result Diagram: 10/06/18 0622 10/06/18 0622 Results 24hrs Laboratory Tests Test 10/05/18 17:20 10/05/18 21:04 10/06/18 01:18 10/06/18 06:12 Bedside Glucose 118 124 113 118 Test 10/06/18 06:22 10/06/18 08:40 10/06/18 13:00 10/06/18 13:14 White Blood Count 9.8 # Red Blood Count 3.68 #L Hemoglobin 10.7 L Hematocrit 33.9 L Mean Corpuscular Volume 92.1 Mean Corpuscular 29.1 Hemoglobin Mean Corpuscular 31.6 L Hemoglobin Concent Red Cell Distribution 16.5 H Width Platelet Count 154 Mean Platelet Volume 12.1 H Immature Granulocytes % 0.600 H Neutrophils % 64.2 Lymphocytes % 20.1 Monocytes % 6.7 Eosinophils % 7.6 H Basophils % 0.8 Nucleated Red Blood 0.0 Cells % Immature Granulocytes # 0.060 H Neutrophils # 6.3 Lymphocytes # 2.0 Monocytes # 0.7 Eosinophils # 0.8 H Basophils # 0.1 Nucleated Red Blood 0.0 Cells # Sodium Level 135 Potassium Level 3.9 Chloride Level 96 L Carbon Dioxide Level 37 H Anion Gap 2 L Blood Urea Nitrogen 12 Creatinine 0.40 L Est Glomerular Filtrat > 60 Rate mL/min Glucose Level 119 Calcium Level 7.1 L Phosphorus Level 2.2 L Magnesium Level 1.7 Prealbumin 4.6 L Bedside Glucose 122 127 Vancomycin Level Trough < 5.0 L Medications Medication Current Medications IV Flush (NS 3 ml) 3 ml PER PROTOCOL IV ; Start 09/15/18 at 07:30 Ondansetron HCl (Zofran Inj) 4 mg Q6H PRN IV NAUSEA/VOMITING Last administered on 10/06/18 09:49; Admin Dose 4 MG; Start 09/15/18 at 07:30 Acetaminophen (Tylenol Tab) 650 mg Q6H PRN PO .PAIN 1-3 OR TEMP Last administered on 09/16/18 21:56; Admin Dose 650 MG; Start 09/15/18 at 07:30 Baclofen (Lioresal) 10 mg BID PO Last administered on 09/23/18 09:45; Admin Dose 10 MG; Start 09/15/18 at 09:00; Status Hold Buspirone HCl (Buspar) 10 mg BID PO Last administered on 09/23/18 11:44; Admin Dose 10 MG; Start 09/15/18 at 09:00; Status Hold Calcium Carbonate (Oyster Shell Calcium) 1.25 gm BID PO Last administered on 11:44; Admin Dose 1.25 GM; Start 09/15/18 at 09:00; Status Hold Clonazepam (Klonopin) 0.5 mg DAILY PRN PO ANXIETY Last administered on 09/23/18 02:04; Admin Dose 0.5 MG; Start 09/15/18 at 07:30; Status Hold Docusate Sodium (Colace) 100 mg BID PO Last administered on 09/23/18 09:43; Ad min Dose 100 MG; Start 09/15/18 at 09:00; Status Hold Rifaximin (Xifaxan) 550 mg BID PO Last administered on 09/22/18 21:42; Admin Dose 550 MG; Start 09/15/18 at 09:00; Status Hold Sertraline HCl (Zoloft) 100 mg DAILY PO ; Start 09/15/18 at 09:00; Status Hold Fluticasone/ Vilanterol (Breo Ellipta 200-25 Mcg Inh) 1 inh DAILY INH Last administered on 10/06/18 09:49; Admin Dose 1 INH; Start 09/15/18 at 09:00 Albuterol/ Ipratropium (Duoneb) 3 ml Q3H RESP THERAPY PRN HHN WHEEZING AND SOB Last administered on 09/21/18 21:08; Admin Dose 3 ML; Start 09/15/18 at 08:00 Levalbuterol (Xopenex Neb) 0.63 mg Q4H RESP THERAPY HHN Last administered on 10/06/18 09:03; Admin Dose 0.63 MG; Start 09/15/18 at 17:00 Levalbuterol (Xopenex Neb) 0.63 mg Q2H RESP THERAPY PRN HHN WHEEZING AND SOB; Start 09/15/18 at 14:00 Collagenase (Santyl) 1 applic DAILY TOP Last administered on 10/06/18 13:12; Admin Dose 1 APPLIC; Start 09/16/18 at 15:00 Multivitamins Therapeutic (Theragran) 1 tab DAILY PO Last administered on 10/02/18 11:01; Admin Dose 1 TAB; Start 09/19/18 at 12:00 Ascorbic Acid (Vitamin C) 500 mg DAILY PO Last administered on 09/23/18 09:45; Admin Dose 500 MG; Start 09/19/18 at 12:00; Status Hold Zinc Sulfate (Zinc Sulfate) 220 mg DAILY PO Last administered on 09/22/18 08:50; Admin Dose 220 MG; Start 09/19/18 at 12:00; Status Hold Thiamine HCl (Vitamin B1) 50 mg DAILY PO Last administered on 09/23/18 09:45; Admin Dose 50 MG; Start 09/19/18 at 12:00; Status Hold Simethicone (Mylicon) 80 mg Q6H PRN PO DISTENSION/GAS/BLOATING Last administered on 09/22/18 23:50; Admin Dose 80 MG; Start 09/20/18 at 06:30 Diltiazem HCl (Cardizem Cd) 120 mg DAILY PO Last administered on 09/23/18 11:41; Admin Dose 120 MG; Start 09/20/18 at 09:00; Status Hold Zolpidem Tartrate (Ambien) 5 mg HS PRN PO INSOMNIA Last administered on 09/24/18 01:16; Admin Dose 5 MG; Start 09/21/18 at 02:00; Status Hold Phenol (Cepastat Lozenge) 1 lozenge Q1H PRN MT SORE THROAT Last administered on 09/22/18 03:32; Admin Dose 1 LOZENGE; Start 09/22/18 at 01:00 Levofloxacin (Levaquin) 500 mg DAILY@06 PO Last administered on 09/23/18 07:21; Admin Dose 500 MG; Start 09/23/18 at 06:00; Status Hold Metronidazole 100 ml @ 100 mls/hr Q8 IVPB Last administered on 09/23/18 22:03; Admin Dose 100 MLS/HR; Start 09/23/18 at 14:00; Status Hold Meropenem/Sodium Chloride 50 ml @ 100 mls/hr Q8H IVPB Last administered on 10/06/18 09:49; Admin Dose 100 MLS/HR; Start 09/24/18 at 02:30 Hydromorphone HCl (Dilaudid) 0.5 mg Q4H PRN IV SEVERE PAIN LEVEL 7-10 Last administered on 10/06/18 09:49; Admin Dose 0.5 MG; Start 09/24/18 at 03:00 Lorazepam (Ativan) 0.5 mg Q6H PRN IV ANXIETY Last administered on 10/05/18 00:15; Admin Dose 0.5 MG; Start 09/24/18 at 03:00 Pantoprazole (Protonix Iv) 40 mg BID@06,18 IV Last administered on 10/06/18 06:06; Admin Dose 40 MG; Start 09/24/18 at 18:00 Miscellaneous Information 1 ea NOTE XX ; Start 09/25/18 at 22:00 Glucose (Glutose) 15 gm Q15M PRN PO DECREASED GLUCOSE; Start 09/25/18 at 22:00 Glucose (Glutose) 22.5 gm Q15M PRN PO DECREASED GLUCOSE; Start 09/25/18 at 22:00 Dextrose (D50w Syringe) 25 ml Q15M PRN IV DECREASED GLUCOSE Last administered on 09/30/18at 01:04; Admin Dose 25 ML; Start 09/25/18 at 22:00 Dextrose (D50w Syringe) 50 ml Q15M PRN IV DECREASED GLUCOSE; Start 09/25/18 at 22:00 Glucagon (Glucagen) 1 mg Q15M PRN IM DECREASED GLUCOSE; Start 09/25/18 at 22:00 Glucose (Glutose) 15 gm Q15M PRN BUCCAL DECREASED GLUCOSE; Start 09/25/18 at 22:00 Methadone HCl (Methadone Liq) 2 mg Q4 SL Last administered on 10/06/18 13:24; Admin Dose 2 MG; Start 09/28/18 at 09:30 IV Flush (NS 10 ml) 10 ml PRN PRN IV IV PROTOCOL; Start 09/30/18 at 19:30 Total Parenteral Nutrition 1,000 ml @ 60 mls/hr [id number] IV Last administered on 10/06/18at 15:51; Admin Dose 60 MLS/HR; Start 10/01/18 at 18:00 Insulin Aspart (Novolog Insulin Pen) NOVOLOG *MILD* ALGORITHM WITH MEALS BEDTIME SC Last administered on 10/03/18 13:02; Admin Dose 2 UNIT; Start 10/01/18 at 21:00 Diagnostic Test (Pha) (Accu-Chek) 1 ea Q4 XX Last administered on 10/06/18 13:27; Admin Dose 1 EA; Start 10/03/18 at 13:00 Vancomycin HCl (Vanco Iv Per Pharmacy) VANCOMYCIN PER PHARMACY PER PROTOCOL XX ; Start 10/03/18 at 13:30 Fluconazole/ Sodium Chloride 50 ml @ 50 mls/hr Q24H IVPB Last administered on 10/06/18at 13:30; Admin Dose 50 MLS/HR; Start 10/03/18 at 13:30 Potassium Phosphate 30 mm/ Sodium Chloride 510 ml @ 65 mls/hr ONCE ONCE IVPB Last administered on 10/06/18at 13:23; Admin Dose 65 MLS/HR; Start 10/06/18 at 10:30; Stop 10/06/18 at 18:20 Vancomycin HCl 100 ml @ 100 mls/hr Q12H IVPB ; Start 10/07/18 at 02:00 SKY BENAVIDES NP Oct 06, 2018 16:07
--- NOTE | 2018-10-06 18:08 | PN ---
Date/Time of Note Date/Time of Note DATE: 10/06/18 TIME: 18:05 Assessment/Plan Lines/Catheters IV Catheter Type (from Nrs): PICC Line Cline in Place (from Nrs): Yes Assessment/Plan Chief Complaint/Hosp Course 1. Perforated terminal ileum with multiple abscesses, patient and son finally agreeable to surgery yesterday s/p lap > open ileocolectomy and drainage of abscesses (10/03).; With likely paralytic ileus; No bowel function as of yet -strict npo/ngt until bowel function -chew gum -ambulate -abx per ID -supportive -fluids -pressors -drain care 2. Sepsis, improved -as above 3. NSTEMI -medical/cardiac optimization 4. Acute renal insufficiency improved judicious fluid management -avoid nephrotoxic agents 5. Elevated transaminases, history of hep C -Monitor 6. Chronic methadone use: -pain mgt 7. Anemia status post PRBC transfusion -monitor 8. Respiratory distress currently on high flow oxygen -Per pulmonary -Oxygen supplementation as needed -Pulmonary toilet Thank you Subjective 24 Hr Interval Summary Patient reports bm but no bowel function as of yet per nursing. Patient drinking a cup of water in front of us. Respiratory distress on high flow oxygen. No fevers, chills, sob, congested cough, cp, palpitations, savage, dizziness, nausea, vomiting, diarrhea, dysuria. Exam/Review of Systems Vital Signs Vitals Vital Signs Date Temp Pulse Resp B/P (MAP) Pulse Ox O2 O2 Flow FiO2 Time Delivery Rate 10/06/18 93 40 16:59 10/06/18 98.2 109 18 126/75 High Flow 15:45 (92) 10/06/18 25.0 14:02 Intake and Output 10/05/18 10/05/18 10/06/18 1515:00 23:00 07:00 IntakeIntake Total 520 ml 510 ml OutputOutput Total 1330 ml 1160 ml BalanceBalance -810 ml -650 ml Exam Free Text/Dictation Constitutional: alert, oriented, nad Psych: nl mood/affect; No anxiety Head: normocephalic, lacerations Eyes: nl conjunctiva, EOMI, PERRL; No icteric ENMT: nl external ears & nose, mucosa pink and moist, ngt Neck: supple, non-tender, jvd Respiratory: normal air movement; No congested cough, No labored breathing Cardiovascular: regular rate and rhythm, No edema Gastrointestinal: soft, distended (min), min tender, octaviano serosang; No rebound, guarding, rigidity Musculoskeletal: nl extremities to inspection; No nl gait and stance, No joint tenderness Extremities: normal pulses Results Result Diagram: 10/06/18 0622 10/06/18 0622 JESSIKA OREILLY MD Oct 06, 2018 18:08
[2018-10-06 19:52] VITALS: BP 155/65; PULSE 115; RESP 20
[2018-10-06] MEDS: LORAZEPAM 2 MG INJ IV PRN (21:13)
[2018-10-06 23:24] VITALS: BP 136/77; PULSE 112; RESP 23
[2018-10-07] MEDS: ACCU-CHEK XX SCH ×6 (00:50→20:55)
[2018-10-07] MEDS: LEVALBUTEROL (NEB) 0.63 MG/3 ML AMP HHN SCH ×6 (01:00→20:31)
[2018-10-07] MEDS: METHADONE (1 MG/ML 5 ML PO UD SYG) SL SCH ×6 (01:54→20:51)
[2018-10-07] MEDS: VANCOMYCIN 500 MG (PMX) 100 ML IVPB SCH ×2 (01:56→14:30)
[2018-10-07 03:59] VITALS: BP 127/69; PULSE 111; RESP 21
[2018-10-07] MEDS: MEROPENEM 1 GM/50ML(PMX) 50 ML IVPB SCH ×3 (04:32→18:35)
[2018-10-07] MEDS: HYDROmorphONE 0.5 MG/0.5 ML SYG IV PRN ×3 (04:39→19:37)
[2018-10-07] MEDS: PANTOPRAZOLE 40 MG INJ IV SCH ×2 (06:54→18:35)
[2018-10-07 07:50] VITALS: BP 113/65; PULSE 115; RESP 20
[2018-10-07] MEDS: INSULIN ASPART [NOVOLOG] 3 ML PEN SC SCH ×4 (07:55→20:55)
[2018-10-07] MEDS: MULTIVITAMINS THERAPEUTIC TAB PO SCH (08:40)
[2018-10-07] MEDS: FLUTICASONE/VILANTEROL 200-25 INH DEVICE INH SCH (08:41)
[2018-10-07] MEDS: COLLAGENASE 5 GM (UD JAR) TOP SCH (08:42)
--- NOTE | 2018-10-07 09:32 | PN ---
Date/Time of Note Date/Time of Note DATE: 10/07/18 TIME: 09:24 Assessment/Plan Lines/Catheters IV Catheter Type (from Nrs): PICC Line Cline in Place (from Nrs): Yes Assessment/Plan Chief Complaint/Hosp Course 1. Perforated terminal ileum with multiple abscesses, patient and son finally agreeable to surgery yesterday s/p lap > open ileocolectomy and drainage of abscesses (10/03).; With likely paralytic ileus; + bowel function -Continue clear liquids -ambulate > PT -abx per ID -supportive -fluids -drain care 2. Sepsis -as above 3. NSTEMI with Persistent tachycardia: -Consider cardiology consult -medical/cardiac optimization 4. Acute renal insufficiency improved judicious fluid management -avoid nephrotoxic agents 5. Elevated transaminases, history of hep C -Monitor 6. Chronic methadone use: -pain mgt 7. Anemia status post PRBC transfusion, downtrending -monitor 8. Respiratory distress currently on high flow oxygen -Per pulmonary -Oxygen supplementation as needed -Pulmonary toilet 9. Electrolyte imbalance: -Optimize electrolytes> per medical team Thank you. Patient seen and examined in collaboration with Dr. Naveed Schumacher. Subjective 24 Hr Interval Summary Feels well. Tolerating clears. Reports + flatus. Had noted BM yesterday. Continues to be tachycardic. H&H downtrending. No fevers, chills, sob, con gested cough, cp, palpitations, savage, dizziness, nausea, vomiting, diarrhea, dysuria. Continues on high flow oxygen Exam/Review of Systems Vital Signs Vitals Vital Signs Date Temp Pulse Resp B/P (MAP) Pulse Ox O2 O2 Flow FiO2 Time Delivery Rate 10/07/18 117 22 96 25.0 40 08:48 10/07/18 98.7 113/65 High Flow 07:50 (81) Intake and Output 10/06/18 10/06/18 10/07/18 1515:00 23:00 07:00 OutputOutput Total 3230 ml 800 ml BalanceBalance -3230 ml -800 ml Exam Free Text/Dictation Constitutional: alert, oriented, nad Psych: nl mood/affect; No anxiety Head: normocephalic, lacerations Eyes: nl conjunctiva, EOMI, PERRL; No icteric ENMT: nl external ears & nose, mucosa pink and moist Neck: supple, non-tender, jvd Respiratory: normal air movement; high flow No congested cough, No labored breathing Cardiovascular: regular rate and rhythm, No edema Gastrointestinal: soft, distended (min), min tender, octaviano serosang; No rebound, guarding, rigidity Musculoskeletal: nl extremities to inspection; No nl gait and stance, No joint tenderness Extremities: normal pulses Results Result Diagram: 10/07/18 0653 10/07/18 0653 RAFAEL EMERY NP Oct 07, 2018 09:32
--- NOTE | 2018-10-07 09:43 | PN ---
DATE: 10/07/2018 SUBJECTIVE: The patient is stable, no events overnight. No fevers, chills, nausea, vomiting. OBJECTIVE: VITAL SIGNS: Blood pressure is 127/69, respirations 21, pulse 111, temperature 97.9. HEENT: Head is normocephalic. NECK: Supple. HEART: Regular rate. LUNGS: Show diminished breath sounds at the base. ABDOMEN: Soft, nontender to palpation without rebound or guarding. EXTREMITIES: Negative for clubbing, cyanosis, no edema. DERMATOLOGIC: No rashes. MUSCULOSKELETAL: No joint effusions. NEUROLOGIC: No change in exam. MEDICATIONS: Have been reviewed. LABORATORY DATA: Have been reviewed. IMAGING STUDIES: Have been reviewed. ASSESSMENT AND PLAN: 1. Nonoliguric acute kidney injury. Etiology is secondary to hemodynamics. Renal function has impr alethea. Continue to monitor. 2. Hyponatremia, etiology secondary to hyperglycemia. Would recommend a repeat renal panel and tonya ection of hyperglycemia, which will improve sodium levels. 3. Hyperkalemia, likely secondary to hyperglycemia. A repeat renal panel once euglycemia is obtaine d. 4. Anemia. Monitor hemoglobin and hematocrit levels. 5. Mineral bone disorder, monitor calcium and phosphorus levels. 6. Perforated terminal ileum. The patient is status post ileocolectomy with drainage of abscess cur rently with a paralytic ileus. Continue to monitor. Follow up with general surgery. Continue pain control. 7. Sepsis, status post shock. Continue current antibiotic regimen. 8. Volume overload, improving. 9. Acute hypoxic respiratory failure, pneumonia and chronic obstructive pulmonary disease. Continue high flow oxygen, nebulizers. Pulmonary. Acute encephalopathy, etiology is toxic metabolic. 10. Nutrition. Continue total parenteral nutrition. Dictated By: RICHARD JIMENEZ/KAYLYN Conf#: [id number] DID#: [id number]
[2018-10-07] MEDS: TPN 1,000 ML IV SCH (10:16)
[2018-10-07] MEDS: BALSAM PERU/CASTOR OIL 60 GM TUBE TOP SCH ×2 (10:25→20:51)
[2018-10-07 11:05] VITALS: BP 141/76; PULSE 111; RESP 18
--- NOTE | 2018-10-07 11:24 | PN ---
Date/Time of Note Date/Time of Note DATE: 10/07/18 TIME: 11:20 Assessment/Plan VTE Prophylaxis Risk score (from Ns)>0 risk: 8 SCD applied (from Ns): Yes Pharmacological prophylaxis: NA/contraindicated Pharm contraindication: anticoag not tolerated Lines/Catheters IV Catheter Type (from Nrsg): PICC Line Central line still needed: Yes Urinary Cath still in place: Yes Reason Cath still needed: other (indicate) (not needed) Assessment/Plan Assessment/Plan 68-year-old woman with history of COPD, PE in May 2018, CKD, admitted for COPD exacerbation and found to have ileum perforation with abdominal abscess. #Small bowel perforation #Abdominal abscess - Weeks of abdominal distension, tenderness, bloating. - CT on 09/23 first showed pneumoperitoneum, taken to OR by Dr. Schumacher on 10/02, found to have perforated terminal ileum with abdominal abscess s/p drainage - Etiology is unclear. - ID following, on antibiotics. - Advanced to clear liquid diet yesterday. #Anemia - Likely due to abdominal perforation - Transfuse to Hgb>7 or for symptomatic anemia - Anticoag held for Hgb drop. # Hypoxic and hypercapnic respiratory failure: Resolved. - For now continue supplemental oxygen, bronchodilators, broad-spectrum antibiotics - PE in May 2018, currently on lovenox; eventually will transition back to Eliquis. - Had hypoxemic episode on 10/05, likely due to benzodiazepines, CTPA negative, if unable to wean off high-flow nasal cannula will investigate further. #MRSA colonization of the nares - On mupirocin GI: PPI DVT: lovenox, currently held. Result Diagram: 10/07/18 0653 10/07/18 0935 Subjective 24 Hr Interval Summary Free Text/Dictation No acute overnight events. Patient started on clear liquids, tolerating well, morale has improved. She was on high-flow nasal cannula overnight; on room air she maintains saturation in the 90s. Exam/Review of Systems Exam Vitals Vital Signs Date Temp Pulse Resp B/P (MAP) Pulse Ox O2 O2 Flow FiO2 Time Delivery Rate 10/07/18 117 22 96 25.0 40 08:48 10/07/18 98.7 113/65 High Flow 07:50 (81) Intake and Output 10/06/18 10/06/18 10/07/18 1515:00 23:00 07:00 OutputOutput Total 3230 ml 800 ml BalanceBalance -3230 ml -800 ml Exam Gen: Thin frail appearing woman lying in bed, awake and alert. Head: Atraumatic, clear oropharynx Eyes: Normal Conjunctiva, ENT: Normal External Ears, Nose and Mouth. Moist mucous membranes. Neck: Full range of motion. No meningismus. Resp: Clear to auscultation bilaterally Cardio: Regular rate and rhythm, no murmurs Abd: Distended, soft, abdomen. Midline incision dressing clean and dry. Lap incisions clean and dry. Ext: No bilateral lower extremity edema Results Results 24hrs Laboratory Tests Test 10/06/18 13:00 10/06/18 13:14 10/06/18 18:05 10/06/18 20:57 Vancomycin Level Trough < 5.0 L Bedside Glucose 127 104 109 Test 10/07/18 06:53 10/07/18 06:54 10/07/18 07:55 10/07/18 09:35 White Blood Count 8.8 Red Blood Count 2.97 L Hemoglobin 8.6 L Hematocrit 28.2 L Mean Corpuscular Volume 94.9 Mean Corpuscular 29.0 Hemoglobin Mean Corpuscular 30.5 L Hemoglobin Concent Red Cell Distribution 16.0 H Width Platelet Count 135 L Mean Platelet Volume 11.7 H Immature Granulocytes % 0.700 H Neutrophils % Segmented Neutrophils 60 % (Manual) Band Neutrophils % 13 H (Manual) Lymphocytes % Lymphocytes % (Manual) 17 Monocytes % Monocytes % (Manual) 3 Eosinophils % Eosinophils % (Manual) 6 Basophils % Basophils % (Manual) 1 Nucleated Red Blood 0.0 Cells % Immature Granulocytes # 0.060 H Neutrophils # Neutrophils # (Manual) 5.4 Band Neutrophils # 1.1 H Lymphocytes (Manual) 1.4 Lymphocytes # Monocytes # Monocytes # (Manual) 0.2 L Eosinophils # Basophils # Basophils # (Manual) 0.0 Nucleated Red Blood Cells # Platelet Estimate NORMAL Polychromasia 3+ Poikilocytosis 1+ Anisocytosis 1+ Sodium Level 129 L 134 L Potassium Level 5.4 H 3.7 Chloride Level 93 L 94 L Carbon Dioxide Level 37 H 40 H Anion Gap 0 L 0 L Blood Urea Nitrogen 11 12 Creatinine 0.53 0.43 L Est Glomerular Filtrat > 60 > 60 Rate mL/min Glucose Level 478 #*H 111 # Calcium Level 6.7 L 7.0 L Triglycerides Level 114 Bedside Glucose 136 Medications Medication Current Medications IV Flush (NS 3 ml) 3 ml PER PROTOCOL IV ; Start 09/15/18 at 07:30 Ondansetron HCl (Zofran Inj) 4 mg Q6H PRN IV NAUSEA/VOMITING Last administered on 10/06/18 09:49; Admin Dose 4 MG; Start 09/15/18 at 07:30 Acetaminophen (Tylenol Tab) 650 mg Q6H PRN PO .PAIN 1-3 OR TEMP Last administered on 09/16/18 21:56; Admin Dose 650 MG; Start 09/15/18 at 07:30 Baclofen (Lioresal) 10 mg BID PO Last administered on 09/23/18 09:45; Admin Dose 10 MG; Start 09/15/18 at 09:00; Status Hold Buspirone HCl (Buspar) 10 mg BID PO Last administered on 09/23/18 11:44; Admin Dose 10 MG; Start 09/15/18 at 09:00; Status Hold Calcium Carbonate (Oyster Shell Calcium) 1.25 gm BID PO Last administered on 09/23/18 11:44; Admin Dose 1.25 GM; Start 09/15/18 at 09:00; Status Hold Clonazepam (Klonopin) 0.5 mg DAILY PRN PO ANXIETY Last administered on 09/23/18 02:04; Admin Dose 0.5 MG; Start 09/15/18 at 07:30; Status Hold Docusate Sodium (Colace) 100 mg BID PO Last administered on 09/23/18 09:43; Admin Dose 100 MG; Start 09/15/18 at 09:00; Status Hold Rifaximin (Xifaxan) 550 mg BID PO Last administered on 09/22/18 21:42; Admin Dose 550 MG; Start 09/15/18 at 09:00; Status Hold Sertraline HCl (Zoloft) 100 mg DAILY PO ; Start 09/15/18 at 09:00; Status Hold Fluticasone/ Vilanterol (Breo Ellipta 200-25 Mcg Inh) 1 inh DAILY INH Last administered on 10/07/18 08:41; Admin Dose 1 INH; Start 09/15/18 at 09:00 Albuterol/ Ipratropium (Duoneb) 3 ml Q3H RESP THERAPY PRN HHN WHEEZING AND SOB Last administered on 09/21/18 21:08; Admin Dose 3 ML; Start 09/15/18 at 08:00 Levalbuterol (Xopenex Neb) 0.63 mg Q4H RESP THERAPY HHN Last administered on 10/07/18 08:47; Admin Dose 0.63 MG; Start 09/15/18 at 17:00 Levalbuterol (Xopenex Neb) 0.63 mg Q2H RESP THERAPY PRN HHN WHEEZING AND SOB; Start 09/15/18 at 14:00 Collagenase (Santyl) 1 applic DAILY TOP Last administered on 10/07/18 08:42; Admin Dose 1 APPLIC; Start 09/16/18 at 15:00 Multivitamins Therapeutic (Theragran) 1 tab DAILY PO Last administered on 08:40; Admin Dose 1 TAB; Start 09/19/18 at 12:00 Ascorbic Acid (Vitamin C) 500 mg DAILY PO Last administered on 09/23/18 09:45; Admin Dose 500 MG; Start 09/19/18 at 12:00; Status Hold Zinc Sulfate (Zinc Sulfate) 220 mg DAILY PO Last administered on 09/22/18 08:50; Admin Dose 220 MG; Start 09/19/18 at 12:00; Status Hold Thiamine HCl (Vitamin B1) 50 mg DAILY PO Last administered on 09/23/18 09:45; Admin Dose 50 MG; Start 09/19/18 at 12:00; Status Hold Simethicone (Mylicon) 80 mg Q6H PRN PO DISTENSION/GAS/BLOATING Last administered on 09/22/18 23:50; Admin Dose 80 MG; Start 09/20/18 at 06:30 Diltiazem HCl (Cardizem Cd) 120 mg DAILY PO Last administered on 09/23/18 11:41; Admin Dose 120 MG; Start 09/20/18 at 09:00; Status Hold Zolpidem Tartrate (Ambien) 5 mg HS PRN PO INSOMNIA Last administered on 09/24/18 01:16; Admin Dose 5 MG; Start 09/21/18 at 02:00; Status Hold Phenol (Cepastat Lozenge) 1 lozenge Q1H PRN MT SORE THROAT Last administered on 09/22/18 03:32; Admin Dose 1 LOZENGE; Start 09/22/18 at 01:00 Levofloxacin (Levaquin) 500 mg DAILY@06 PO Last administered on 09/23/18at 07:21; Admin Dose 500 MG; Start 09/23/18 at 06:00; Status Hold Metronidazole 100 ml @ 100 mls/hr Q8 IVPB Last administered on 09/23/18at 22:03; Admin Dose 100 MLS/HR; Start 09/23/18 at 14:00; Status Hold Meropenem/Sodium Chloride 50 ml @ 100 mls/hr Q8H IVPB Last administered on 10/07/18 04:32; Admin Dose 100 MLS/HR; Start 09/24/18 at 02:30 Hydromorphone HCl (Dilaudid) 0.5 mg Q4H PRN IV SEVERE PAIN LEVEL 7-10 Last administered on 10/07/18 04:39; Admin Dose 0.5 MG; Start 09/24/18 at 03:00 Lorazepam (Ativan) 0.5 mg Q6H PRN IV ANXIETY Last administered on 10/06/18 21:13; Admin Dose 0.5 MG; Start 09/24/18 at 03:00 Pantoprazole (Protonix Iv) 40 mg BID@06,18 IV Last administered on 10/07/18 06:54; Admin Dose 40 MG; Start 09/24/18 at 18:00 Miscellaneous Information 1 ea NOTE XX ; Start 09/25/18 at 22:00 Glucose (Glutose) 15 gm Q15M PRN PO DECREASED GLUCOSE; Start 09/25/18 at 22:00 Glucose (Glutose) 22.5 gm Q15M PRN PO DECREASED GLUCOSE; Start 09/25/18 at 22:00 Dextrose (D50w Syringe) 25 ml Q15M PRN IV DECREASED GLUCOSE Last administered on 09/30/18 01:04; Admin Dose 25 ML; Start 09/25/18 at 22:00 Dextrose (D50w Syringe) 50 ml Q15M PRN IV DECREASED GLUCOSE; Start 09/25/18 at 22:00 Glucagon (Glucagen) 1 mg Q15M PRN IM DECREASED GLUCOSE; Start 09/25/18 at 22:00 Glucose (Glutose) 15 gm Q15M PRN BUCCAL DECREASED GLUCOSE; Start 09/25/18 at 22:00 Methadone HCl (Methadone Liq) 2 mg Q4 SL Last administered on 10/07/18 10:15; Admin Dose 2 MG; Start 09/28/18 at 09:30 IV Flush (NS 10 ml) 10 ml PRN PRN IV IV PROTOCOL; Start 09/30/18 at 19:30 Total Parenteral Nutrition 1,000 ml @ 60 mls/hr [id number] IV Last administered on 10/07/18 10:16; Admin Dose 60 MLS/HR; Start 10/01/18 at 18:00 Insulin Aspart (Novolog Insulin Pen) NOVOLOG *MILD* ALGORITHM WITH MEALS BE DTIME SC Last administered on 10/03/18 13:02; Admin Dose 2 UNIT; Start 10/01/18 at 21:00 Diagnostic Test (Pha) (Accu-Chek) 1 ea Q4 XX Last administered on 10/06/18 20:58; Admin Dose 1 EA; Start 10/03/18 at 13:00 Vancomycin HCl (Vanco Iv Per Pharmacy) VANCOMYCIN PER PHARMACY PER PROTOCOL XX ; Start 10/03/18 at 13:30 Fluconazole/ Sodium Chloride 50 ml @ 50 mls/hr Q24H IVPB Last administered on 10/06/18 13:30; Admin Dose 50 MLS/HR; Start 10/03/18 at 13:30 Vancomycin HCl 100 ml @ 100 mls/hr Q12H IVPB Last administered on 10/07/18 01:56; Admin Dose 100 MLS/HR; Start 10/07/18 at 02:00 PRASHANT HILTON MD Oct 07, 2018 11:24
--- NOTE | 2018-10-07 12:28 | CONS ---
Consult Date/Type/Reason Admit Date/Time Sep 15, 2018 at 03:32 Initial Consult Date 09/15/18 Type of Consult Pulmonary Requesting Provider: LEOBARDO DC Date/Time of Note DATE: 10/07/18 TIME: 12:27 Subjective Mild abdominal discomfort but no respiratory distress Objective Vital Signs Date Temp Pulse Resp B/P (MAP) Pulse Ox O2 O2 Flow FiO2 Time Delivery Rate 10/07/18 98.5 111 18 141/76 97 High Flow 11:05 (97) 10/07/18 25.0 40 08:48 Intake and Output 10/06/18 10/06/18 10/07/18 1515:00 23:00 07:00 OutputOutput Total 3230 ml 800 ml BalanceBalance -3230 ml -800 ml Exam GENERAL: Thin elderly lady appears comfortable at rest VITAL SIGNS: per chart NECK: Supple. No JVD or lymphadenopathy. CARDIAC EXAM: S1, S2. No added sounds or murmurs. CHEST: clear bilaterally, No added sounds, rales or wheezes ABDOMEN: Soft, nontender. No guarding or rebound. EXTREMITIES: No cyanosis, clubbing or edema. NEUROLOGIC: Generalized weakness. No focal deficits. Vent Setting Fraction of Inspired Oxygen pe: 40 Results/Medications Result Diagram: 10/07/18 0653 10/07/18 0935 Results 24 hrs Laboratory Tests Test 10/06/18 13:00 10/06/18 13:14 10/06/18 18:05 10/06/18 20:57 Vancomycin Level Trough < 5.0 L Bedside Glucose 127 104 109 Test 10/07/18 06:53 10/07/18 06:54 10/07/18 07:55 10/07/18 09:35 White Blood Count 8.8 Red Blood Count 2.97 L Hemoglobin 8.6 L Hematocrit 28.2 L Mean Corpuscular Volume 94.9 Mean Corpuscular 29.0 Hemoglobin Mean Corpuscular 30.5 L Hemoglobin Concent Red Cell Distribution 16.0 H Width Platelet Count 135 L Mean Platelet Volume 11.7 H Immature Granulocytes % 0.700 H Neutrophils % Segmented Neutrophils 60 % (Manual) Band Neutrophils % 13 H (Manual) Lymphocytes % Lymphocytes % (Manual) 17 Monocytes % Monocytes % (Manual) 3 Eosinophils % Eosinophils % (Manual) 6 Basophils % Basophils % (Manual) 1 Nucleated Red Blood 0.0 Cells % Immature Granulocytes # 0.060 H Neutrophils # Neutrophils # (Manual) 5.4 Band Neutrophils # 1.1 H Lymphocytes (Manual) 1.4 Lymphocytes # Monocytes # Monocytes # (Manual) 0.2 L Eosinophils # Basophils # Basophils # (Manual) 0.0 Nucleated Red Blood Cells # Platelet Estimate NORMAL Polychromasia 3+ Poikilocytosis 1+ Anisocytosis 1+ Sodium Level 129 L 134 L Potassium Level 5.4 H 3.7 Chloride Level 93 L 94 L Carbon Dioxide Level 37 H 40 H Anion Gap 0 L 0 L Blood Urea Nitrogen 11 12 Creatinine 0.53 0.43 L Est Glomerular Filtrat > 60 > 60 Rate mL/min Glucose Level 478 #*H 111 # Calcium Level 6.7 L 7.0 L Triglycerides Level 114 Bedside Glucose 136 Test 10/07/18 12:04 Bedside Glucose 125 Medications Current Medications IV Flush (NS 3 ml) 3 ml PER PROTOCOL IV ; Start 09/15/18 at 07:30 Ondansetron HCl (Zofran Inj) 4 mg Q6H PRN IV NAUSEA/VOMITING Last administered on 10/06/18 09:49; Admin Dose 4 MG; Start 09/15/18 at 07:30 Acetaminophen (Tylenol Tab) 650 mg Q6H PRN PO .PAIN 1-3 OR TEMP Last administered on 09/16/18 21:56; Admin Dose 650 MG; Start 09/15/18 at 07:30 Baclofen (Lioresal) 10 mg BID PO Last administered on 09/23/18 09:45; Admin Dose 10 MG; Start 09/15/18 at 09:00; Status Hold Buspirone HCl (Buspar) 10 mg BID PO Last administered on 09/23/18 11:44; Admin Dose 10 MG; Start 09/15/18 at 09:00; Status Hold Calcium Carbonate (Oyster Shell Calcium) 1.25 gm BID PO Last administered on 09/23/18 11:44; Admin Dose 1.25 GM; Start 09/15/18 at 09:00; Status Hold Clonazepam (Klonopin) 0.5 mg DAILY PRN PO ANXIETY Last administered on 09/23/18 02:04; Admin Dose 0.5 MG; Start 09/15/18 at 07:30; Status Hold Docusate Sodium (Colace) 100 mg BID PO Last administered on 09/23/18 09:43; Admin Dose 100 MG; Start 09/15/18 at 09:00; Status Hold Rifaximin (Xifaxan) 550 mg BID PO Last administered on 09/22/18 21:42; Admin Dose 550 MG; Start 09/15/18 at 09:00; Status Hold Sertraline HCl (Zoloft) 100 mg DAILY PO ; Start 09/15/18 at 09:00; Status Hold Fluticasone/ Vilanterol (Breo Ellipta 200-25 Mcg Inh) 1 inh DAILY INH Last administered on 10/07/18 08:41; Admin Dose 1 INH; Start 09/15/18 at 09:00 Albuterol/ Ipratropium (Duoneb) 3 ml Q3H RESP THERAPY PRN HHN WHEEZING AND SOB Last administered on 09/21/18 21:08; Admin Dose 3 ML; Start 09/15/18 at 08:00 Levalbuterol (Xopenex Neb) 0.63 mg Q4H RESP THERAPY HHN Last administered on 10/07/18 08:47; Admin Dose 0.63 MG; Start 09/15/18 at 17:00 Levalbuterol (Xopenex Neb) 0.63 mg Q2H RESP THERAPY PRN HHN WHEEZING AND SOB; Start 09/15/18 at 14:00 Collagenase (Santyl) 1 applic DAILY TOP Last administered on 10/07/18 08:42; Admin Dose 1 APPLIC; Start 09/16/18 at 15:00 Multivitamins Therapeutic (Theragran) 1 tab DAILY PO Last administered on 10/07/18 08:40; Admin Dose 1 TAB; Start 09/19/18 at 12:00 Ascorbic Acid (Vitamin C) 500 mg DAILY PO Last administered on 09/23/18 09:45; Admin Dose 500 MG; Start 09/19/18 at 12:00; Status Hold Zinc Sulfate (Zinc Sulfate) 220 mg DAILY PO Last administered on 09/22/18 08:50; Admin Dose 220 MG; Start 09/19/18 at 12:00; Status Hold Thiamine HCl (Vitamin B1) 50 mg DAILY PO Last administered on 09/23/18 09:45; Admin Dose 50 MG; Start 09/19/18 at 12:00; Status Hold Simethicone (Mylicon) 80 mg Q6H PRN PO DISTENSION/GAS/BLOATING Last administered on 09/22/18 23:50; Admin Dose 80 MG; Start 09/20/18 at 06:30 Diltiazem HCl (Cardizem Cd) 120 mg DAILY PO Last administered on 09/23/18 11:41; Admin Dose 120 MG; Start 09/20/18 at 09:00; Status Hold Zolpidem Tartrate (Ambien) 5 mg HS PRN PO INSOMNIA Last administered on 09/24/18 01:16; Admin Dose 5 MG; Start 09/21/18 at 02:00; Status Hold Phenol (Cepastat Lozenge) 1 lozenge Q1H PRN MT SORE THROAT Last administered on 09/22/18 03:32; Admin Dose 1 LOZENGE; Start 09/22/18 at 01:00 Levofloxacin (Levaquin) 500 mg DAILY@06 PO Last administered on 09/23/18 07:21; Admin Dose 500 MG; Start 09/23/18 at 06:00; Status Hold Metronidazole 100 ml @ 100 mls/hr Q8 IVPB Last administered on 09/23/18 22:03; Admin Dose 100 MLS/HR; Start 09/23/18 at 14:00; Status Hold Meropenem/Sodium Chloride 50 ml @ 100 mls/hr Q8H IVPB Last administered on 10/07/18 04:32; Admin Dose 100 MLS/HR; Start 09/24/18 at 02:30 Hydromorphone HCl (Dilaudid) 0.5 mg Q4H PRN IV SEVERE PAIN LEVEL 7-10 Last administered on 10/07/18 04:39; Admin Dose 0.5 MG; Start 09/24/18 at 03:00 Lorazepam (Ativan) 0.5 mg Q6H PRN IV ANXIETY Last administered on 10/06/18 21:13; Admin Dose 0.5 MG; Start 09/24/18 at 03:00 Pantoprazole (Protonix Iv) 40 mg BID@06,18 IV Last administered on 10/07/18 06:54; Admin Dose 40 MG; Start 09/24/18 at 18:00 Miscellaneous Information 1 ea NOTE XX ; Start 09/25/18 at 22:00 Glucose (Glutose) 15 gm Q15M PRN PO DECREASED GLUCOSE; Start 09/25/18 at 22:00 Glucose (Glutose) 22.5 gm Q15M PRN PO DECREASED GLUCOSE; Start 09/25/18 at 22:00 Dextrose (D50w Syringe) 25 ml Q15M PRN IV DECREASED GLUCOSE Last administered on 09/30/18 01:04; Admin Dose 25 ML; Start 09/25/18 at 22:00 Dextrose (D50w Syringe) 50 ml Q15M PRN IV DECREASED GLUCOSE; Start 09/25/18 at 22:00 Glucagon (Glucagen) 1 mg Q15M PRN IM DECREASED GLUCOSE; Start 09/25/18 at 22:00 Glucose (Glutose) 15 gm Q15M PRN BUCCAL DECREASED GLUCOSE; Start 09/25/18 at 22:00 Methadone HCl (Methadone Liq) 2 mg Q4 SL Last administered on 10/07/18at 10:15; Admin Dose 2 MG; Start 09/28/18 at 09:30 IV Flush (NS 10 ml) 10 ml PRN PRN IV IV PROTOCOL; Start 09/30/18 at 19:30 Total Parenteral Nutrition 1,000 ml @ 60 mls/hr [id number] IV Last administered on 10/07/18 10:16; Admin Dose 60 MLS/HR; Start 10/01/18 at 18:00 Insulin Aspart (Novolog Insulin Pen) NOVOLOG *MILD* ALGORITHM WITH MEALS BEDTIME SC Last administered on 10/03/18 13:02; Admin Dose 2 UNIT; Start 10/01/18 at 21:00 Diagnostic Test (Pha) (Accu-Chek) 1 ea Q4 XX Last administered on 10/06/18at 20:58; Admin Dose 1 EA; Start 10/03/18 at 13:00 Vancomycin HCl (Vanco Iv Per Pharmacy) VANCOMYCIN PER PHARMACY PER PROTOCOL XX ; Start 10/03/18 at 13:30 Fluconazole/ Sodium Chloride 50 ml @ 50 mls/hr Q24H IVPB Last administered on 10/06/18at 13:30; Admin Dose 50 MLS/HR; Start 10/03/18 at 13:30 Vancomycin HCl 100 ml @ 100 mls/hr Q12H IVPB Last administered on 10/07/18at 01:56; Admin Dose 100 MLS/HR; Start 10/07/18 at 02:00 Assessment/Plan Hospital Course (Demo Recall) Assessment 1. COPD currently stable no acute exacerbation 2. Perforated bowel being managed conservatively Continue supportive care and surgical recommendations Consider transfer to [facility] [place] MD[facility] Oct 07, 2018 12:28
[2018-10-07] MEDS: FLUCONAZOLE 100 MG/50 ML (PMX) 50 ML IVPB SCH (13:15)
--- NOTE | 2018-10-07 15:02 | CONS ---
Assessment/Plan Assessment/Plan Hospital Course (Demo Recall) Awake, feels better, no fevers, nad Antimicrobials: Meropenem, Vanco, Diflucan Indwelling: Left-sided RAFAL, PICC line, Cline catheter HEENT: Within normal limits. NECK: Supple. CHEST: Decreased breath sounds at the bases. HEART: S1 S2 ABDOMEN: Distended, bowel sounds hypoactive, mid abdominal dressing intact EXTREMITIES: Without cyanosis, clubbing, or edema. Assessment: 1. Acute hypoxemic respiratory failure 1. Sepsis s/p shock 2. Perforated bowel with multiple abscess and small bowel obstruction, status post laparotomy/open exploration 10/02/2018 3. HCAP 4. Non-ST elevation [place] 5. COPD Plan: Stable, continue antibiotics, follow surgicalpulmonary recommendations Consultation Date/Type/Reason Admit Date/Time Sep 15, 2018 at 03:32 Initial Consult Date 09/24/18 Type of Consult id Requesting Provider: LEOBARDO DC Date/Time of Note DATE: 10/07/18 TIME: 15:01 Exam/Review of Systems Exam Vitals Vital Signs Date Temp Pulse Resp B/P (MAP) Pulse Ox O2 O2 Flow FiO2 Time Delivery Rate 10/07/18 100 4.0 13:25 10/07/18 30 12:38 10/07/18 112 24 12:38 10/07/18 98.5 141/76 High Flow 11:05 (97) Intake and Output 10/06/18 10/06/18 10/07/18 1515:00 23:00 07:00 OutputOutput Total 125 ml 3330 ml 800 ml BalanceBalance -125 ml -3330 ml -800 ml Results Result Diagram: 10/07/18 0653 10/07/18 0935 Results 24hrs Laboratory Tests Test 10/06/18 18:05 10/06/18 20:57 10/07/18 06:53 10/07/18 06:54 Bedside Glucose 104 109 White Blood Count 8.8 Red Blood Count 2.97 L Hemoglobin 8.6 L Hematocrit 28.2 L Mean Corpuscular Volume 94.9 Mean Corpuscular 29.0 Hemoglobin Mean Corpuscular 30.5 L Hemoglobin Concent Red Cell Distribution 16.0 H Width Platelet Count 135 L Mean Platelet Volume 11.7 H Immature Granulocytes % 0.700 H Neutrophils % Segmented Neutrophils 60 % (Manual) Band Neutrophils % 13 H (Manual) Lymphocytes % Lymphocytes % (Manual) 17 Monocytes % Monocytes % (Manual) 3 Eosinophils % Eosinophils % (Manual) 6 Basophils % Basophils % (Manual) 1 Nucleated Red Blood 0.0 Cells % Immature Granulocytes # 0.060 H Neutrophils # Neutrophils # (Manual) 5.4 Band Neutrophils # 1.1 H Lymphocytes (Manual) 1.4 Lymphocytes # Monocytes # Monocytes # (Manual) 0.2 L Eosinophils # Basophils # Basophils # (Manual) 0.0 Nucleated Red Blood Cells # Platelet Estimate NORMAL Polychromasia 3+ Poikilocytosis 1+ Anisocytosis 1+ Sodium Level 129 L Potassium Level 5.4 H Chloride Level 93 L Carbon Dioxide Level 37 H Anion Gap 0 L Blood Urea Nitrogen 11 Creatinine 0.53 Est Glomerular Filtrat > 60 Rate mL/min Glucose Level 478 #*H Calcium Level 6.7 L Triglycerides Level 114 Test 10/07/18 07:55 10/07/18 09:35 10/07/18 12:04 Bedside Glucose 136 125 Sodium Level 134 L Potassium Level 3.7 Chloride Level 94 L Carbon Dioxide Level 40 H Anion Gap 0 L Blood Urea Nitrogen 12 Creatinine 0.43 L Est Glomerular Filtrat > 60 Rate mL/min Glucose Level 111 # Calcium Level 7.0 L Medications Medication Current Medications IV Flush (NS 3 ml) 3 ml PER PROTOCOL IV ; Start 09/15/18 at 07:30 Ondansetron HCl (Zofran Inj) 4 mg Q6H PRN IV NAUSEA/VOMITING Last administered on 10/06/18 09:49; Admin Dose 4 MG; Start 09/15/18 at 07:30 Acetaminophen (Tylenol Tab) 650 mg Q6H PRN PO .PAIN 1-3 OR TEMP Last administered on 09/16/18 21:56; Admin Dose 650 MG; Start 09/15/18 at 07:30 Baclofen (Lioresal) 10 mg BID PO Last administered on 09/23/18 09:45; Admin Dose 10 MG; Start 09/15/18 at 09:00; Status Hold Buspirone HCl (Buspar) 10 mg BID PO Last administered on 09/23/18 11:44; Admin Dose 10 MG; Start 09/15/18 at 09:00; Status Hold Calcium Carbonate (Oyster Shell Calcium) 1.25 gm BID PO Last administered on 09/23/18 11:44; Admin Dose 1.25 GM; Start 09/15/18 at 09:00; Status Hold Clonazepam (Klonopin) 0.5 mg DAILY PRN PO ANXIETY Last administered on 09/23/18 02:04; Admin Dose 0.5 MG; Start 09/15/18 at 07:30; Status Hold Docusate Sodium (Colace) 100 mg BID PO Last administered on 09/23/18 09:43; Admin Dose 100 MG; Start 09/15/18 at 09:00; Status Hold Rifaximin (Xifaxan) 550 mg BID PO Last administered on 09/22/18 21:42; Admin Dose 550 MG; Start 09/15/18 at 09:00; Status Hold Sertraline HCl (Zoloft) 100 mg DAILY PO ; Start 09/15/18 at 09:00; Status Hold Fluticasone/ Vilanterol (Breo Ellipta 200-25 Mcg Inh) 1 inh DAILY INH Last administered on 10/07/18 08:41; Admin Dose 1 INH; Start 09/15/18 at 09:00 Albuterol/ Ipratropium (Duoneb) 3 ml Q3H RESP THERAPY PRN HHN WHEEZING AND SOB Last administered on 09/21/18 21:08; Admin Dose 3 ML; Start 09/15/18 at 08:00 Levalbuterol (Xopenex Neb) 0.63 mg Q4H RESP THERAPY HHN Last administered on 10/07/18 08:47; Admin Dose 0.63 MG; Start 09/15/18 at 17:00 Levalbuterol (Xopenex Neb) 0.63 mg Q2H RESP THERAPY PRN HHN WHEEZING AND SOB; Start 09/15/18 at 14:00 Collagenase (Santyl) 1 applic DAILY TOP Last administered on 10/07/18 08:42; Admin Dose 1 APPLIC; Start 09/16/18 at 15:00 Multivitamins Therapeutic (Theragran) 1 tab DAILY PO Last administered on 08:40; Admin Dose 1 TAB; Start 09/19/18 at 12:00 Ascorbic Acid (Vitamin C) 500 mg DAILY PO Last administered on 09/23/18 09:45; Admin Dose 500 MG; Start 09/19/18 at 12:00; Status Hold Zinc Sulfate (Zinc Sulfate) 220 mg DAILY PO Last administered on 09/22/18 08:50; Admin Dose 220 MG; Start 09/19/18 at 12:00; Status Hold Thiamine HCl (Vitamin B1) 50 mg DAILY PO Last administered on 09/23/18 09:45; Admin Dose 50 MG; Start 09/19/18 at 12:00; Status Hold Simethicone (Mylicon) 80 mg Q6H PRN PO DISTENSION/GAS/BLOATING Last administered on 09/22/18 23:50; Admin Dose 80 MG; Start 09/20/18 at 06:30 Diltiazem HCl (Cardizem Cd) 120 mg DAILY PO Last administered on 09/23/18 11:41; Admin Dose 120 MG; Start 09/20/18 at 09:00; Status Hold Zolpidem Tartrate (Ambien) 5 mg HS PRN PO INSOMNIA Last administered on 09/24/18 01:16; Admin Dose 5 MG; Start 09/21/18 at 02:00; Status Hold Phenol (Cepastat Lozenge) 1 lozenge Q1H PRN MT SORE THROAT Last administered on 09/22/18 03:32; Admin Dose 1 LOZENGE; Start 09/22/18 at 01:00 Levofloxacin (Levaquin) 500 mg DAILY@06 PO Last administered on 09/23/18 07:21; Admin Dose 500 MG; Start 09/23/18 at 06:00; Status Hold Metronidazole 100 ml @ 100 mls/hr Q8 IVPB Last administered on 09/23/18 22:03; Admin Dose 100 MLS/HR; Start 09/23/18 at 14:00; Status Hold Meropenem/Sodium Chloride 50 ml @ 100 mls/hr Q8H IVPB Last administered on 10/07/18 11:59; Admin Dose 100 MLS/HR; Start 09/24/18 at 02:30 Hydromorphone HCl (Dilaudid) 0.5 mg Q4H PRN IV SEVERE PAIN LEVEL 7-10 Last administered on 10/07/18 11:59; Admin Dose 0.5 MG; Start 09/24/18 at 03:00 Lorazepam (Ativan) 0.5 mg Q6H PRN IV ANXIETY Last administered on 10/06/18at 21:13; Admin Dose 0.5 MG; Start 09/24/18 at 03:00 Pantoprazole (Protonix Iv) 40 mg BID@06,18 IV Last administered on 10/07/18at 06:54; Admin Dose 40 MG; Start 09/24/18 at 18:00 Miscellaneous Information 1 ea NOTE XX ; Start 09/25/18 at 22:00 Glucose (Glutose) 15 gm Q15M PRN PO DECREASED GLUCOSE; Start 09/25/18 at 22:00 Glucose (Glutose) 22.5 gm Q15M PRN PO DECREASED GLUCOSE; Start 09/25/18 at 22:00 Dextrose (D50w Syringe) 25 ml Q15M PRN IV DECREASED GLUCOSE Last administered on 09/30/18at 01:04; Admin Dose 25 ML; Start 09/25/18 at 22:00 Dextrose (D50w Syringe) 50 ml Q15M PRN IV DECREASED GLUCOSE; Start 09/25/18 at 22:00 Glucagon (Glucagen) 1 mg Q15M PRN IM DECREASED GLUCOSE; Start 09/25/18 at 22:00 Glucose (Glutose) 15 gm Q15M PRN BUCCAL DECREASED GLUCOSE; Start 09/25/18 at 22:00 Methadone HCl (Methadone Liq) 2 mg Q4 SL Last administered on 10/07/18at 13:18; Admin Dose 2 MG; Start 09/28/18 at 09:30 IV Flush (NS 10 ml) 10 ml PRN PRN IV IV PROTOCOL; Start 09/30/18 at 19:30 Total Parenteral Nutrition 1,000 ml @ 60 mls/hr [id number] IV Last administered on 10/07/18at 10:16; Admin Dose 60 MLS/HR; Start 10/01/18 at 18:00 Insulin Aspart (Novolog Insulin Pen) NOVOLOG *MILD* ALGORITHM WITH MEALS BED TIME SC Last administered on 10/03/18at 13:02; Admin Dose 2 UNIT; Start 10/01/18 at 21:00 Diagnostic Test (Pha) (Accu-Chek) 1 ea Q4 XX Last administered on 10/06/18at 20:58; Admin Dose 1 EA; Start 10/03/18 at 13:00 Vancomycin HCl (Vanco Iv Per Pharmacy) VANCOMYCIN PER PHARMACY PER PROTOCOL XX ; Start 10/03/18 at 13:30 Fluconazole/ Sodium Chloride 50 ml @ 50 mls/hr Q24H IVPB Last administered on 10/07/18at 13:15; Admin Dose 50 MLS/HR; Start 10/03/18 at 13:30 Vancomycin HCl 100 ml @ 100 mls/hr Q12H IVPB Last administered on 10/07/18at 01:56; Admin Dose 100 MLS/HR; Start 10/07/18 at 02:00 SYK BENAVIDES NP Oct 07, 2018 15:02
[2018-10-07 15:05] VITALS: BP 147/76; PULSE 113; RESP 18
[2018-10-07 19:21] VITALS: BP 138/73; PULSE 105; RESP 21
[2018-10-07] MEDS: LORAZEPAM 2 MG INJ IV PRN (22:33)
[2018-10-07 23:20] VITALS: BP 127/71; PULSE 101; RESP 18
[2018-10-08] MEDS: LEVALBUTEROL (NEB) 0.63 MG/3 ML AMP HHN SCH ×6 (00:36→20:07)
[2018-10-08] MEDS: ACCU-CHEK XX SCH ×6 (01:00→20:34)
[2018-10-08] MEDS: TPN 1,000 ML IV SCH ×2 (01:13→15:50)
[2018-10-08] MEDS: HYDROmorphONE 0.5 MG/0.5 ML SYG IV PRN ×3 (01:18→20:21)
[2018-10-08] MEDS: METHADONE (1 MG/ML 5 ML PO UD SYG) SL SCH ×6 (02:37→20:33)
[2018-10-08] MEDS: VANCOMYCIN 500 MG (PMX) 100 ML IVPB SCH ×2 (02:38→14:22)
[2018-10-08 03:30] VITALS: BP 122/72; PULSE 107; RESP 17
[2018-10-08] MEDS: MEROPENEM 1 GM/50ML(PMX) 50 ML IVPB SCH ×3 (04:28→18:43)
[2018-10-08] MEDS: PANTOPRAZOLE 40 MG INJ IV SCH ×2 (06:08→17:26)
[2018-10-08 07:15] VITALS: BP 92/56; PULSE 100; RESP 18
[2018-10-08] MEDS: INSULIN ASPART [NOVOLOG] 3 ML PEN SC SCH ×4 (07:55→20:33)
[2018-10-08] MEDS: COLLAGENASE 5 GM (UD JAR) TOP SCH (08:37)
[2018-10-08] MEDS: MULTIVITAMINS THERAPEUTIC TAB PO SCH (08:38)
[2018-10-08] MEDS: BALSAM PERU/CASTOR OIL 60 GM TUBE TOP SCH ×2 (08:38→20:33)
[2018-10-08] MEDS: FLUTICASONE/VILANTEROL 200-25 INH DEVICE INH SCH (08:39)
--- NOTE | 2018-10-08 09:09 | CONS ---
Assessment/Plan Assessment/Plan Hospital Course (Demo Recall) Alert, feels good, no fevers, tolerates clears POD#6 Antimicrobials: Meropenem, Vanco, Diflucan Indwelling: Left-sided RAFAL, PICC line, Cline catheter HEENT: Within normal limits. NECK: Supple. CHEST: Decreased breath sounds at the bases. HEART: S1 S2 ABDOMEN: Distended, bowel sounds hypoactive, mid abdominal dressing intact EXTREMITIES: Without cyanosis, clubbing, or edema. Assessment: 1. Acute hypoxemic respiratory failure 2. Sepsis s/p shock 3. Perforated bowel with multiple abscess and small bowel obstruction, status post laparotomy/open exploration 10/02/2018 4. HCAP 5. Non-ST elevation [place] 6. COPD Plan: Continue antibiotics, follow surgical and pulmonary recommendations, f/u repeat cxr Consultation Date/Type/Reason Admit Date/Time Sep 15, 2018 at 03:32 Initial Consult Date 09/24/18 Type of Consult id Requesting Provider: LEOBARDO DC Date/Time of Note DATE: 10/08/18 TIME: 09:07 Exam/Review of Systems Exam Vitals Vital Signs Date Temp Pulse Resp B/P (MAP) Pulse Ox O2 O2 Flow FiO2 Time Delivery Rate 10/08/18 100 20 98 Nasal 3.0 07:57 Cannula 10/08/18 97.9 92/56 (68) 07:15 10/07/18 30 12:38 Intake and Output 10/07/18 10/07/18 10/08/18 1515:00 23:00 07:00 IntakeIntake Total 772 ml 1590 ml 450 ml OutputOutput Total 150 ml 4625 ml 1825 ml BalanceBalance 622 ml -3035 ml -1375 ml Results Result Diagram: 10/08/18 0649 10/08/18 0649 Results 24hrs Laboratory Tests Test 10/07/18 09:35 10/07/18 12:04 10/07/18 18:07 10/07/18 20:55 Sodium Level 134 L Potassium Level 3.7 Chloride Level 94 L Carbon Dioxide Level 40 H Anion Gap 0 L Blood Urea Nitrogen 12 Creatinine 0.43 L Est Glomerular Filtrat > 60 Rate mL/min Glucose Level 111 # Calcium Level 7.0 L Bedside Glucose 125 111 103 Test 10/08/18 06:49 10/08/18 08:35 White Blood Count 8.3 Red Blood Count 3.04 L Hemoglobin 8.7 L Hematocrit 28.2 L Mean Corpuscular 92.8 Volume Mean Corpuscular 28.6 L Hemoglobin Mean Corpuscular 30.9 L Hemoglobin Concent Red Cell Distribution 15.8 H Width Platelet Count 151 Mean Platelet Volume 11.9 H Immature Granulocytes 1.000 H % Neutrophils % Lymphocytes % Monocytes % Eosinophils % Basophils % Nucleated Red Blood 0.0 Cells % Immature Granulocytes 0.080 H # Neutrophils # Lymphocytes # Monocytes # Eosinophils # Basophils # Nucleated Red Blood Cells # Sodium Level 135 Potassium Level 3.6 Chloride Level 95 L Carbon Dioxide Level 40 H Anion Gap 0 L Blood Urea Nitrogen 12 Creatinine 0.39 L Est Glomerular Filtrat > 60 Rate mL/min Glucose Level 105 Calcium Level 6.9 L Phosphorus Level 2.9 Magnesium Level 1.8 Bedside Glucose 126 Medications Medication Current Medications IV Flush (NS 3 ml) 3 ml PER PROTOCOL IV ; Start 09/15/18 at 07:30 Ondansetron HCl (Zofran Inj) 4 mg Q6H PRN IV NAUSEA/VOMITING Last administered on 10/06/18 09:49; Admin Dose 4 MG; Start 09/15/18 at 07:30 Acetaminophen (Tylenol Tab) 650 mg Q6H PRN PO .PAIN 1-3 OR TEMP Last administered on 09/16/18 21:56; Admin Dose 650 MG; Start 09/15/18 at 07:30 Baclofen (Lioresal) 10 mg BID PO Last administered on 09/23/18 09:45; Admin Dose 10 MG; Start 09/15/18 at 09:00; Status Hold Buspirone HCl (Buspar) 10 mg BID PO Last administered on 09/23/18 11:44; Admin Dose 10 MG; Start 09/15/18 at 09:00; Status Hold Calcium Carbonate (Oyster Shell Calcium) 1.25 gm BID PO Last administered on 09/23/18 11:44; Admin Dose 1.25 GM; Start 09/15/18 at 09:00; Status Hold Clonazepam (Klonopin) 0.5 mg DAILY PRN PO ANXIETY Last administered on 09/23/18 02:04; Admin Dose 0.5 MG; Start 09/15/18 at 07:30; Status Hold Docusate Sodium (Colace) 100 mg BID PO Last administered on 09/23/18 09:43; Admin Dose 100 MG; Start 09/15/18 at 09:00; Status Hold Rifaximin (Xifaxan) 550 mg BID PO Last administered on 09/22/18 21:42; Admin Dose 550 MG; Start 09/15/18 at 09:00; Status Hold Sertraline HCl (Zoloft) 100 mg DAILY PO ; Start 09/15/18 at 09:00; Status Hold Fluticasone/ Vilanterol (Breo Ellipta 200-25 Mcg Inh) 1 inh DAILY INH Last administered on 10/08/18 08:39; Admin Dose 1 INH; Start 09/15/18 at 09:00 Albuterol/ Ipratropium (Duoneb) 3 ml Q3H RESP THERAPY PRN HHN WHEEZING AND SOB Last administered on 09/21/18 21:08; Admin Dose 3 ML; Start 09/15/18 at 08:00 Levalbuterol (Xopenex Neb) 0.63 mg Q4H RESP THERAPY HHN Last administered on 10/08/18 07:57; Admin Dose 0.63 MG; Start 09/15/18 at 17:00 Levalbuterol (Xopenex Neb) 0.63 mg Q2H RESP THERAPY PRN HHN WHEEZING AND SOB; Start 09/15/18 at 14:00 Collagenase (Santyl) 1 applic DAILY TOP Last administered on 10/08/18 08:37; Admin Dose 1 APPLIC; Start 09/16/18 at 15:00 Multivitamins Therapeutic (Theragran) 1 tab DAILY PO Last administered on 10/08/18 08:38; Admin Dose 1 TAB; Start 09/19/18 at 12:00 Ascorbic Acid (Vitamin C) 500 mg DAILY PO Last administered on 09/23/18 09:45; Admin Dose 500 MG; Start 09/19/18 at 12:00; Status Hold Zinc Sulfate (Zinc Sulfate) 220 mg DAILY PO Last administered on 09/22/18 08:50; Admin Dose 220 MG; Start 09/19/18 at 12:00; Status Hold Thiamine HCl (Vitamin B1) 50 mg DAILY PO Last administered on 09/23/18 09:45; Admin Dose 50 MG; Start 09/19/18 at 12:00; Status Hold Simethicone (Mylicon) 80 mg Q6H PRN PO DISTENSION/GAS/BLOATING Last administered on 09/22/18 23:50; Admin Dose 80 MG; Start 09/20/18 at 06:30 Diltiazem HCl (Cardizem Cd) 120 mg DAILY PO Last administered on 09/23/18 11:41; Admin Dose 120 MG; Start 09/20/18 at 09:00; Status Hold Zolpidem Tartrate (Ambien) 5 mg HS PRN PO INSOMNIA Last administered on 09/24/18 01:16; Admin Dose 5 MG; Start 09/21/18 at 02:00; Status Hold Phenol (Cepastat Lozenge) 1 lozenge Q1H PRN MT SORE THROAT Last administered on 09/22/18 03:32; Admin Dose 1 LOZENGE; Start 09/22/18 at 01:00 Levofloxacin (Levaquin) 500 mg DAILY@06 PO Last administered on 09/23/18 07:21; Admin Dose 500 MG; Start 09/23/18 at 06:00; Status Hold Metronidazole 100 ml @ 100 mls/hr Q8 IVPB Last administered on 09/23/18 22:03; Admin Dose 100 MLS/HR; Start 09/23/18 at 14:00; Status Hold Meropenem/Sodium Chloride 50 ml @ 100 mls/hr Q8H IVPB Last administered on 10/08/18 04:28; Admin Dose 100 MLS/HR; Start 09/24/18 at 02:30 Hydromorphone HCl (Dilaudid) 0.5 mg Q4H PRN IV SEVERE PAIN LEVEL 7-10 Last administered on 10/08/18 01:18; Admin Dose 0.5 MG; Start 09/24/18 at 03:00 Lorazepam (Ativan) 0.5 mg Q6H PRN IV ANXIETY Last administered on 10/07/18 22:33; Admin Dose 0.5 MG; Start 09/24/18 at 03:00 Pantoprazole (Protonix Iv) 40 mg BID@06,18 IV Last administered on 10/08/18 06:08; Admin Dose 40 MG; Start 09/24/18 at 18:00 Miscellaneous Information 1 ea NOTE XX ; Start 09/25/18 at 22:00 Glucose (Glutose) 15 gm Q15M PRN PO DECREASED GLUCOSE; Start 09/25/18 at 22:00 Glucose (Glutose) 22.5 gm Q15M PRN PO DECREASED GLUCOSE; Start 09/25/18 at 22:00 Dextrose (D50w Syringe) 25 ml Q15M PRN IV DECREASED GLUCOSE Last administered on 09/30/18 01:04; Admin Dose 25 ML; Start 09/25/18 at 22:00 Dextrose (D50w Syringe) 50 ml Q15M PRN IV DECREASED GLUCOSE; Start 09/25/18 at 22:00 Glucagon (Glucagen) 1 mg Q15M PRN IM DECREASED GLUCOSE; Start 09/25/18 at 22:00 Glucose (Glutose) 15 gm Q15M PRN BUCCAL DECREASED GLUCOSE; Start 09/25/18 at 22:00 Methadone HCl (Methadone Liq) 2 mg Q4 SL Last administered on 10/08/18 08:38; Admin Dose 2 MG; Start 09/28/18 at 09:30 IV Flush (NS 10 ml) 10 ml PRN PRN IV IV PROTOCOL; Start 09/30/18 at 19:30 Total Parenteral Nutrition 1,000 ml @ 60 mls/hr [id number] IV Last administered on 10/08/18 01:13; Admin Dose 60 MLS/HR; Start 10/01/18 at 18:00 Insulin Aspart (Novolog Insulin Pen) NOVOLOG *MILD* ALGORITHM WITH MEALS BEDTIME SC Last administered on 10/03/18 13:02; Admin Dose 2 UNIT; Start 10/01/18 at 21:00 Diagnostic Test (Pha) (Accu-Chek) 1 ea Q4 XX Last administered on 10/07/18at 20:55; Admin Dose 1 EA; Start 10/03/18 at 13:00 Vancomycin HCl (Vanco Iv Per Pharmacy) VANCOMYCIN PER PHARMACY PER PROTOCOL XX ; Start 10/03/18 at 13:30 Fluconazole/ Sodium Chloride 50 ml @ 50 mls/hr Q24H IVPB Last administered on 10/07/18at 13:15; Admin Dose 50 MLS/HR; Start 10/03/18 at 13:30 Vancomycin HCl 100 ml @ 100 mls/hr Q12H IVPB Last administered on 10/08/18 02:38; Admin Dose 100 MLS/HR; Start 10/07/18 at 02:00 Miscellaneous Information (*Rx Drug Level Order Reminder*) VANCO TROUGH @ 1,300 1300 ONCE XX ; Start 10/08/18 at 13:00; Stop 10/08/18 at 13:01 SKY BENAVIDES NP Oct 08, 2018 09:09
--- NOTE | 2018-10-08 10:08 | PN ---
Date/Time of Note Date/Time of Note DATE: 10/08/18 TIME: 10:03 Assessment/Plan VTE Prophylaxis Risk score (from Ns)>0 risk: 4 SCD applied (from [facility] [place]): Yes Pharmacological prophylaxis: NA/contraindicated Pharm contraindication: surgical contra Lines/Catheters IV Catheter Type (from [facility]): PICC Line Central line still needed: Yes Urinary Cath still in place: Yes Reason Cath still needed: pres ulcer contaminated by urine Assessment/Plan Assessment/Plan 68-year-old woman with history of COPD, PE in May 2018, CKD, admitted for COPD exacerbation and found to have ileum perforation with abdominal abscess. #Small bowel perforation #Abdominal abscess - Weeks of abdominal distension, tenderness, bloating. - CT on 09/23 first showed pneumoperitoneum, taken to OR by Dr. Schumacher on 10/02, found to have perforated terminal ileum with abdominal abscess s/p drainage - Etiology is unclear. - ID following, on meropenem and diflucan (?) - Tolerating clear liquids. #Anemia - Likely due to abdominal perforation - Transfuse to Hgb>7 or for symptomatic anemia - Anticoag held for Hgb drop postoperatively. Will restart when okay with surgery. # Hypoxic and hypercapnic respiratory failure: Resolved. - PE in May 2018, eventually will transition back to [facility]. - Had hypoxemic episode on 10/05, likely due to benzodiazepines, - Now on nasal cannula. Goal sat 88-92%. #MRSA colonization of the nares - s/p mupirocin GI: PPI DVT: lovenox, currently held. Result Diagram: 10/08/18 0649 10/08/18 0649 Subjective 24 Hr Interval Summary Free Text/Dictation No acute overnight events. On 4L nasal cannula. Tolerating clear liquids. Had bowel movements last night. Exam/Review of Systems Exam Vitals Vital Signs Date Temp Pulse Resp B/P (MAP) Pulse Ox O2 O2 Flow FiO2 Time Delivery Rate 10/08/18 100 20 98 Nasal 3.0 07:57 Cannula 10/08/18 97.9 92/56 (68) 07:15 10/07/18 30 12:38 Intake and Output 10/07/18 10/07/18 10/08/18 1515:00 23:00 07:00 IntakeIntake Total 772 ml 1590 ml 450 ml OutputOutput Total 150 ml 4625 ml 1825 ml BalanceBalance 622 ml -3035 ml -1375 ml Exam Gen: Thin frail appearing woman lying in bed, awake and alert. Head: Atraumatic, clear oropharynx Eyes: Normal Conjunctiva, ENT: Normal External Ears, Nose and Mouth. Moist mucous membranes. Neck: Full range of motion. No meningismus. Resp: Clear to auscultation bilaterally Cardio: Regular rate and rhythm, no murmurs Abd: Distended, soft. Midline incision dressing clean and dry. Lap incisions clean and dry. Ext: No bilateral lower extremity edema Results Results 24hrs Laboratory Tests Test 10/07/18 12:04 10/07/18 18:07 10/07/18 20:55 10/08/18 06:49 Bedside Glucose 125 111 103 White Blood Count 8.3 Red Blood Count 3.04 L Hemoglobin 8.7 L Hematocrit 28.2 L Mean Corpuscular 92.8 Volume Mean Corpuscular 28.6 L Hemoglobin Mean Corpuscular 30.9 L Hemoglobin Concent Red Cell Distribution 15.8 H Width Platelet Count 151 Mean Platelet Volume 11.9 H Immature Granulocytes 1.000 H % Neutrophils % Lymphocytes % Monocytes % Eosinophils % Basophils % Nucleated Red Blood 0.0 Cells % Immature Granulocytes 0.080 H # Neutrophils # Lymphocytes # Monocytes # Eosinophils # Basophils # Nucleated Red Blood Cells # Sodium Level 135 Potassium Level 3.6 Chloride Level 95 L Carbon Dioxide Level 40 H Anion Gap 0 L Blood Urea Nitrogen 12 Creatinine 0.39 L Est Glomerular Filtrat > 60 Rate mL/min Glucose Level 105 Calcium Level 6.9 L Phosphorus Level 2.9 Magnesium Level 1.8 Test 10/08/18 08:35 Bedside Glucose 126 Medications Medication Current Medications IV Flush (NS 3 ml) 3 ml PER PROTOCOL IV ; Start 09/15/18 at 07:30 Ondansetron HCl (Zofran Inj) 4 mg Q6H PRN IV NAUSEA/VOMITING Last administered on 10/06/18at 09:49; Admin Dose 4 MG; Start 09/15/18 at 07:30 Acetaminophen (Tylenol Tab) 650 mg Q6H PRN PO .PAIN 1-3 OR TEMP Last administered on 09/16/18at 21:56; Admin Dose 650 MG; Start 09/15/18 at 07:30 Baclofen (Lioresal) 10 mg BID PO Last administered on 09/23/18 09:45; Admin Dose 10 MG; Start 09/15/18 at 09:00; Status Hold Buspirone HCl (Buspar) 10 mg BID PO Last administered on 09/23/18 11:44; Admin Dose 10 MG; Start 09/15/18 at 09:00; Status Hold Calcium Carbonate (Oyster Shell Calcium) 1.25 gm BID PO Last administered on 09/23/18 11:44; Admin Dose 1.25 GM; Start 09/15/18 at 09:00; Status Hold Clonazepam (Klonopin) 0.5 mg DAILY PRN PO ANXIETY Last administered on 09/23/18 02:04; Admin Dose 0.5 MG; Start 09/15/18 at 07:30; Status Hold Docusate Sodium (Colace) 100 mg BID PO Last administered on 09/23/18 09:43; Admin Dose 100 MG; Start 09/15/18 at 09:00; Status Hold Rifaximin (Xifaxan) 550 mg BID PO Last administered on 09/22/18 21:42; Admin Dose 550 MG; Start 09/15/18 at 09:00; Status Hold Sertraline HCl (Zoloft) 100 mg DAILY PO ; Start 09/15/18 at 09:00; Status Hold Fluticasone/ Vilanterol (Breo Ellipta 200-25 Mcg Inh) 1 inh DAILY INH Last administered on 10/08/18 08:39; Admin Dose 1 INH; Start 09/15/18 at 09:00 Albuterol/ Ipratropium (Duoneb) 3 ml Q3H RESP THERAPY PRN HHN WHEEZING AND SOB Last administered on 09/21/18 21:08; Admin Dose 3 ML; Start 09/15/18 at 08:00 Levalbuterol (Xopenex Neb) 0.63 mg Q4H RESP THERAPY HHN Last administered on 10/08/18 07:57; Admin Dose 0.63 MG; Start 09/15/18 at 17:00 Levalbuterol (Xopenex Neb) 0.63 mg Q2H RESP THERAPY PRN HHN WHEEZING AND SOB; Start 09/15/18 at 14:00 Collagenase (Santyl) 1 applic DAILY TOP Last administered on 10/08/18 08:37; Admin Dose 1 APPLIC; Start 09/16/18 at 15:00 Multivitamins Therapeutic (Theragran) 1 tab DAILY PO Last administered on 10/08/18 08:38; Admin Dose 1 TAB; Start 09/19/18 at 12:00 Ascorbic Acid (Vitamin C) 500 mg DAILY PO Last administered on 09/23/18 09:45; Admin Dose 500 MG; Start 09/19/18 at 12:00; Status Hold Zinc Sulfate (Zinc Sulfate) 220 mg DAILY PO Last administered on 09/22/18 08:50; Admin Dose 220 MG; Start 09/19/18 at 12:00; Status Hold Thiamine HCl (Vitamin B1) 50 mg DAILY PO Last administered on 09/23/18 09:45; Admin Dose 50 MG; Start 09/19/18 at 12:00; Status Hold Simethicone (Mylicon) 80 mg Q6H PRN PO DISTENSION/GAS/BLOATING Last administered on 09/22/18 23:50; Admin Dose 80 MG; Start 09/20/18 at 06:30 Diltiazem HCl (Cardizem Cd) 120 mg DAILY PO Last administered on 09/23/18 11:4 1; Admin Dose 120 MG; Start 09/20/18 at 09:00; Status Hold Zolpidem Tartrate (Ambien) 5 mg HS PRN PO INSOMNIA Last administered on 09/24/18 01:16; Admin Dose 5 MG; Start 09/21/18 at 02:00; Status Hold Phenol (Cepastat Lozenge) 1 lozenge Q1H PRN MT SORE THROAT Last administered on 09/22/18 03:32; Admin Dose 1 LOZENGE; Start 09/22/18 at 01:00 Levofloxacin (Levaquin) 500 mg DAILY@06 PO Last administered on 09/23/18 07:21; Admin Dose 500 MG; Start 09/23/18 at 06:00; Status Hold Metronidazole 100 ml @ 100 mls/hr Q8 IVPB Last administered on 09/23/18 22:03; Admin Dose 100 MLS/HR; Start 09/23/18 at 14:00; Status Hold Meropenem/Sodium Chloride 50 ml @ 100 mls/hr Q8H IVPB Last administered on 8/10/19at 04:28; Admin Dose 100 MLS/HR; Start 09/24/18 at 02:30 Hydromorphone HCl (Dilaudid) 0.5 mg Q4H PRN IV SEVERE PAIN LEVEL 7-10 Last administered on 10/08/18at 01:18; Admin Dose 0.5 MG; Start 09/24/18 at 03:00 Lorazepam (Ativan) 0.5 mg Q6H PRN IV ANXIETY Last administered on 10/07/18at 22:33; Admin Dose 0.5 MG; Start 09/24/18 at 03:00 Pantoprazole (Protonix Iv) 40 mg BID@06,18 IV Last administered on 10/08/18at 06:08; Admin Dose 40 MG; Start 09/24/18 at 18:00 Miscellaneous Information 1 ea NOTE XX ; Start 09/25/18 at 22:00 Glucose (Glutose) 15 gm Q15M PRN PO DECREASED GLUCOSE; Start 09/25/18 at 22:00 Glucose (Glutose) 22.5 gm Q15M PRN PO DECREASED GLUCOSE; Start 09/25/18 at 22 :00 Dextrose (D50w Syringe) 25 ml Q15M PRN IV DECREASED GLUCOSE Last administered on 09/30/18at 01:04; Admin Dose 25 ML; Start 09/25/18 at 22:00 Dextrose (D50w Syringe) 50 ml Q15M PRN IV DECREASED GLUCOSE; Start 09/25/18 at 22:00 Glucagon (Glucagen) 1 mg Q15M PRN IM DECREASED GLUCOSE; Start 09/25/18 at 22:00 Glucose (Glutose) 15 gm Q15M PRN BUCCAL DECREASED GLUCOSE; Start 09/25/18 at 22:00 Methadone HCl (Methadone Liq) 2 mg Q4 SL Last administered on 10/08/18at 08:38; Admin Dose 2 MG; Start 09/28/18 at 09:30 IV Flush (NS 10 ml) 10 ml PRN PRN IV IV PROTOCOL; Start 09/30/18 at 19:30 Total Parenteral Nutrition 1,000 ml @ 60 mls/hr [id number] IV Last administered on 10/08/18at 01:13; Admin Dose 60 MLS/HR; Start 10/01/18 at 18:00 Insulin Aspart (Novolog Insulin Pen) NOVOLOG *MILD* ALGORITHM WITH MEALS BEDTIME SC Last administered on 10/03/18at 13:02; Admin Dose 2 UNIT; Start 10/01/18 at 21:00 Diagnostic Test (Pha) (Accu-Chek) 1 ea Q4 XX Last administered on 10/07/18at 20:55; Admin Dose 1 EA; Start 10/03/18 at 13:00 Vancomycin HCl (Vanco Iv Per Pharmacy) VANCOMYCIN PER PHARMACY PER PROTOCOL XX ; Start 10/03/18 at 13:30 Fluconazole/ Sodium Chloride 50 ml @ 50 mls/hr Q24H IVPB Last administered on 10/07/18at 13:15; Admin Dose 50 MLS/HR; Start 10/03/18 at 13:30 Vancomycin HCl 100 ml @ 100 mls/hr Q12H IVPB Last administered on 10/08/18at 02:38; Admin Dose 100 MLS/HR; Start 10/07/18 at 02:00 Miscellaneous Information (*Rx Drug Level Order Reminder*) VANCO TROUGH @ 1,300 1300 ONCE XX ; Start 10/08/18 at 13:00; Stop 10/08/18 at 13:01 PRASHANT HILTON MD Oct 08, 2018 10:08
[2018-10-08 11:00] VITALS: BP 139/75; PULSE 78; RESP 20
--- NOTE | 2018-10-08 13:21 | CONS ---
Assessment/Plan Assessment/Plan Hospital Course (Demo Recall) 1. Nonoliguric acute kidney injury. Etiology is secondary to hemodynamics. Renal function has improved. Continue to monitor. 2. Hyponatremia, etiology secondary to hyperglycemia. improved 3. Hyperkalemia, likely secondary to hyperglycemia. A repeat renal panel once euglycemia is obtained. 4. Anemia. Monitor hemoglobin and hematocrit levels. 5. Mineral bone disorder, monitor calcium and phosphorus levels. 6. Perforated terminal ileum. The patient is status post ileocolectomy with drainage of abscess currently with a paralytic ileus. Continue to monitor. Follow up with general surgery. Continue pain control. 7. Sepsis, status post shock. Continue current antibiotic regimen. 8. Volume overload, improving. 9. Acute hypoxic respiratory failure, pneumonia and chronic obstructive pulmonary disease. Continue high flow oxygen, nebulizers. Pulmonary. Acute encephalopathy, etiology is toxic metabolic. 10. Nutrition. Continue total parenteral nutrition. Consultation Date/Type/Reason Admit Date/Time Sep 15, 2018 at 03:32 Initial Consult Date 09/24/18 Requesting Provider: LEOBARDO DC Date/Time of Note DATE: 10/08/18 TIME: 13:20 24 HR Interval Summary Free Text/Dictation no n/v or f/c d/w rn gen nad cv rrr pulm ctab abd soft nd nt +bs ext: no edema Exam/Review of Systems Exam Vitals Vital Signs Date Temp Pulse Resp B/P (MAP) Pulse Ox O2 O2 Flow FiO2 Time Delivery Rate 10/08/18 101 22 100 Nasal 3.0 12:31 Cannula 10/08/18 98.0 139/75 11:00 (96) 10/07/18 30 12:38 Intake and Output 10/07/18 10/07/18 10/08/18 1515:00 23:00 07:00 IntakeIntake Total 772 ml 1590 ml 450 ml OutputOutput Total 150 ml 4625 ml 1825 ml BalanceBalance 622 ml -3035 ml -1375 ml Results Result Diagram: 10/08/18 0649 10/08/18 0649 Results 24hrs Laboratory Tests Test 10/07/18 18:07 10/07/18 20:55 10/08/18 06:49 10/08/18 08:35 Bedside Glucose 111 103 126 White Blood Count 8.3 Red Blood Count 3.04 L Hemoglobin 8.7 L Hematocrit 28.2 L Mean Corpuscular 92.8 Volume Mean Corpuscular 28.6 L Hemoglobin Mean Corpuscular 30.9 L Hemoglobin Concent Red Cell Distribution 15.8 H Width Platelet Count 151 Mean Platelet Volume 11.9 H Immature Granulocytes 1.000 H % Neutrophils % Segmented Neutrophils 57 % (Manual) Band Neutrophils % 13 H (Manual) Lymphocytes % Lymphocytes % 8 L (Manual) Reactive Lymphocytes 2 H % (Manual) Monocytes % Monocytes % (Manual) 2 Eosinophils % Eosinophils % 17 H (Manual) Basophils % Basophils % (Manual) 1 Nucleated Red Blood 0.0 Cells % Immature Granulocytes 0.080 H # Neutrophils # Neutrophils # 4.8 (Manual) Band Neutrophils # 1.0 H Lymphocytes (Manual) 0.6 L Lymphocytes # Reactive Lymphocytes 0.1 H # Monocytes # Monocytes # (Manual) 0.1 L Eosinophils # Basophils # Basophils # (Manual) 0.0 Nucleated Red Blood Cells # Platelet Estimate NORMAL Polychromasia 1+ Anisocytosis 1+ Sodium Level 135 Potassium Level 3.6 Chloride Level 95 L Carbon Dioxide Level 40 H Anion Gap 0 L Blood Urea Nitrogen 12 Creatinine 0.39 L Est Glomerular > 60 Filtrat Rate mL/min Glucose Level 105 Calcium Level 6.9 L Phosphorus Level 2.9 Magnesium Level 1.8 Test 10/08/18 12:20 Bedside Glucose 115 Medications Medication Current Medications IV Flush (NS 3 ml) 3 ml PER PROTOCOL IV ; Start 09/15/18 at 07:30 Ondansetron HCl (Zofran Inj) 4 mg Q6H PRN IV NAUSEA/VOMITING Last administered on 10/06/18 09:49; Admin Dose 4 MG; Start 09/15/18 at 07:30 Acetaminophen (Tylenol Tab) 650 mg Q6H PRN PO .PAIN 1-3 OR TEMP Last administered on 09/16/18 21:56; Admin Dose 650 MG; Start 09/15/18 at 07:30 Baclofen (Lioresal) 10 mg BID PO Last administered on 09/23/18 09:45; Admin Dose 10 MG; Start 09/15/18 at 09:00; Status Hold Buspirone HCl (Buspar) 10 mg BID PO Last administered on 09/23/18 11:44; Admin Dose 10 MG; Start 09/15/18 at 09:00; Status Hold Calcium Carbonate (Oyster Shell Calcium) 1.25 gm BID PO Last administered on 11:44; Admin Dose 1.25 GM; Start 09/15/18 at 09:00; Status Hold Clonazepam (Klonopin) 0.5 mg DAILY PRN PO ANXIETY Last administered on 09/23/18 02:04; Admin Dose 0.5 MG; Start 09/15/18 at 07:30; Status Hold Docusate Sodium (Colace) 100 mg BID PO Last administered on 09/23/18 09:43; Admin Dose 100 MG; Start 09/15/18 at 09:00; Status Hold Rifaximin (Xifaxan) 550 mg BID PO Last administered on 09/22/18 21:42; Admin Dose 550 MG; Start 09/15/18 at 09:00; Status Hold Sertraline HCl (Zoloft) 100 mg DAILY PO ; Start 09/15/18 at 09:00; Status Hold Fluticasone/ Vilanterol (Breo Ellipta 200-25 Mcg Inh) 1 inh DAILY INH Last administered on 10/08/18 08:39; Admin Dose 1 INH; Start 09/15/18 at 09:00 Albuterol/ Ipratropium (Duoneb) 3 ml Q3H RESP THERAPY PRN HHN WHEEZING AND SOB Last administered on 09/21/18 21:08; Admin Dose 3 ML; Start 09/15/18 at 08:00 Levalbuterol (Xopenex Neb) 0.63 mg Q4H RESP THERAPY HHN Last administered on 10/08/18 12:30; Admin Dose 0.63 MG; Start 09/15/18 at 17:00 Levalbuterol (Xopenex Neb) 0.63 mg Q2H RESP THERAPY PRN HHN WHEEZING AND SOB; Start 09/15/18 at 14:00 Collagenase (Santyl) 1 applic DAILY TOP Last administered on 10/08/18 08:37; Admin Dose 1 APPLIC; Start 09/16/18 at 15:00 Multivitamins Therapeutic (Theragran) 1 tab DAILY PO Last administered on 10/08/18 08:38; Admin Dose 1 TAB; Start 09/19/18 at 12:00 Ascorbic Acid (Vitamin C) 500 mg DAILY PO Last administered on 09/23/18 09:45; Admin Dose 500 MG; Start 09/19/18 at 12:00; Status Hold Zinc Sulfate (Zinc Sulfate) 220 mg DAILY PO Last administered on 09/22/18 08:50; Admin Dose 220 MG; Start 09/19/18 at 12:00; Status Hold Thiamine HCl (Vitamin B1) 50 mg DAILY PO Last administered on 09/23/18 09:45; Admin Dose 50 MG; Start 09/19/18 at 12:00; Status Hold Simethicone (Mylicon) 80 mg Q6H PRN PO DISTENSION/GAS/BLOATING Last administered on 10/08/18 12:18; Admin Dose 80 MG; Start 09/20/18 at 06:30 Diltiazem HCl (Cardizem Cd) 120 mg DAILY PO Last administered on 09/23/18 11:41; Admin Dose 120 MG; Start 09/20/18 at 09:00; Status Hold Zolpidem Tartrate (Ambien) 5 mg HS PRN PO INSOMNIA Last administered on 09/24/18 01:16; Admin Dose 5 MG; Start 09/21/18 at 02:00; Status Hold Phenol (Cepastat Lozenge) 1 lozenge Q1H PRN MT SORE THROAT Last administered on 09/22/18 03:32; Admin Dose 1 LOZENGE; Start 09/22/18 at 01:00 Levofloxacin (Levaquin) 500 mg DAILY@06 PO Last administered on 09/23/18 07:21; Admin Dose 500 MG; Start 09/23/18 at 06:00; Status Hold Metronidazole 100 ml @ 100 mls/hr Q8 IVPB Last administered on 09/23/18 22:03; Admin Dose 100 MLS/HR; Start 09/23/18 at 14:00; Status Hold Meropenem/Sodium Chloride 50 ml @ 100 mls/hr Q8H IVPB Last administered on 10/08/18 10:24; Admin Dose 100 MLS/HR; Start 09/24/18 at 02:30 Hydromorphone HCl (Dilaudid) 0.5 mg Q4H PRN IV SEVERE PAIN LEVEL 7-10 Last administered on 10/08/18 12:18; Admin Dose 0.5 MG; Start 09/24/18 at 03:00 Lorazepam (Ativan) 0.5 mg Q6H PRN IV ANXIETY Last administered on 10/07/18at 22:33; Admin Dose 0.5 MG; Start 09/24/18 at 03:00 Pantoprazole (Protonix Iv) 40 mg BID@06,18 IV Last administered on 10/08/18at 06:08; Admin Dose 40 MG; Start 09/24/18 at 18:00 Miscellaneous Information 1 ea NOTE XX ; Start 09/25/18 at 22:00 Glucose (Glutose) 15 gm Q15M PRN PO DECREASED GLUCOSE; Start 09/25/18 at 22:00 Glucose (Glutose) 22.5 gm Q15M PRN PO DECREASED GLUCOSE; Start 09/25/18 at 22:00 Dextrose (D50w Syringe) 25 ml Q15M PRN IV DECREASED GLUCOSE Last administered on 09/30/18at 01:04; Admin Dose 25 ML; Start 09/25/18 at 22:00 Dextrose (D50w Syringe) 50 ml Q15M PRN IV DECREASED GLUCOSE; Start 09/25/18 at 22:00 Glucagon (Glucagen) 1 mg Q15M PRN IM DECREASED GLUCOSE; Start 09/25/18 at 22:00 Glucose (Glutose) 15 gm Q15M PRN BUCCAL DECREASED GLUCOSE; Start 09/25/18 at 22:00 Methadone HCl (Methadone Liq) 2 mg Q4 SL Last administered on 10/08/18at 08:38; Admin Dose 2 MG; Start 09/28/18 at 09:30 IV Flush (NS 10 ml) 10 ml PRN PRN IV IV PROTOCOL; Start 09/30/18 at 19:30 Total Parenteral Nutrition 1,000 ml @ 60 mls/hr [id number] IV Last administered on 10/08/18at 01:13; Admin Dose 60 MLS/HR; Start 10/01/18 at 18:00 Insulin Aspart (Novolog Insulin Pen) NOVOLOG *MILD* ALGORITHM WITH MEALS BEDTIME SC Last administered on 10/03/18at 13:02; Admin Dose 2 UNIT; Start at 21:00 Diagnostic Test (Pha) (Accu-Chek) 1 ea Q4 XX Last administered on 10/07/18at 20:55; Admin Dose 1 EA; Start 10/03/18 at 13:00 Vancomycin HCl (Vanco Iv Per Pharmacy) VANCOMYCIN PER PHARMACY PER PROTOCOL XX ; Start 10/03/18 at 13:30 Fluconazole/ Sodium Chloride 50 ml @ 50 mls/hr Q24H IVPB Last administered on 10/07/18at 13:15; Admin Dose 50 MLS/HR; Start 10/03/18 at 13:30 Vancomycin HCl 100 ml @ 100 mls/hr Q12H IVPB Last administered on 10/08/18at 02:38; Admin Dose 100 MLS/HR; Start 10/07/18 at 02:[address] MD Oct 08, 2018 13:21
[2018-10-08] MEDS: FLUCONAZOLE 100 MG/50 ML (PMX) 50 ML IVPB SCH (13:45)
--- NOTE | 2018-10-08 13:48 | PN ---
Date/Time of Note Date/Time of Note DATE: 10/08/18 TIME: 13:45 Assessment/Plan Lines/Catheters IV Catheter Type (from [facility]): PICC Line Cline in Place (from [facility]): Yes Assessment/Plan Chief Complaint/Hosp Course 1. Perforated terminal ileum with multiple abscesses, patient and son finally agreeable to surgery yesterday s/p lap > open ileocolectomy and drainage of abscesses (10/03).; With likely paralytic ileus; now with + bowel function -full liquids -ambulate > PT -abx per ID -supportive -fluids -drain care 2. S/p: Sepsis, with persistent bandemia (improved) -as above 3. NSTEMI with Persistent tachycardia: -Consider cardiology consult -medical/cardiac optimization 4. Acute renal insufficiency improved judicious fluid management -avoid nephrotoxic agents 5. Elevated transaminases, history of hep C -Monitor 6. Chronic methadone use: -pain mgt 7. Anemia status post PRBC transfusion, downtrending -monitor 8. Respiratory distress currently on high flow oxygen -Per pulmonary -Oxygen supplementation as needed -Pulmonary toilet 9. Electrolyte imbalance: -Optimize electrolytes> per medical team Thank you. Patient seen and examined in collaboration with Dr. Naveed Schumacher. Subjective 24 Hr Interval Summary Feels well. Tolerating clear liquids. + bowel function. No fevers, chills, sob, congested cough, cp, palpitations, savage, dizziness, n/v/d/dysuria. Exam/Review of Systems Vital Signs Vitals Vital Signs Date Temp Pulse Resp B/P (MAP) Pulse Ox O2 O2 Flow FiO2 Time Delivery Rate 10/08/18 101 22 100 Nasal 3.0 12:31 Cannula 10/08/18 98.0 139/75 11:00 (96) 10/07/18 30 12:38 Intake and Output 10/07/18 10/07/18 10/08/18 1515:00 23:00 07:00 IntakeIntake Total 772 ml 1590 ml 450 ml OutputOutput Total 150 ml 4625 ml 1825 ml BalanceBalance 622 ml -3035 ml -1375 ml Exam Free Text/Dictation Constitutional: alert, oriented, nad Psych: nl mood/affect; No anxiety Head: normocephalic, lacerations Eyes: nl conjunctiva, EOMI, PERRL; No icteric ENMT: nl external ears & nose, mucosa pink and moist Neck: supple, non-tender, jvd Respiratory: normal air movement; high flow No congested cough, No labored breathing Cardiovascular: regular rate and rhythm, No edema Gastrointestinal: soft, distended (min), min tender, octaviano serosang; No rebound, guarding, rigidity, midabdominal staple line- clean Musculoskeletal: nl extremities to inspection; No nl gait and stance, No joint tenderness Extremities: normal pulses Results Result Diagram: 10/08/18 0649 10/08/18 0649 RAFAEL EMERY NP Oct 08, 2018 13:48
[2018-10-08 15:05] VITALS: BP 123/62; PULSE 95; RESP 18
[2018-10-08] MEDS: ENOXAPARIN 100 MG/ML SYG SC SCH (20:42)
[2018-10-08 20:48] VITALS: BP 125/73; PULSE 94; RESP 18
[2018-10-09] VITALS: BP 142/73; PULSE 111; RESP 18
[2018-10-09] MEDS: METHADONE (1 MG/ML 5 ML PO UD SYG) SL SCH ×6 (00:58→21:55)
[2018-10-09] MEDS: LORAZEPAM 2 MG INJ IV PRN (00:58)
[2018-10-09] MEDS: LEVALBUTEROL (NEB) 0.63 MG/3 ML AMP HHN SCH ×6 (01:00→20:05)
[2018-10-09] MEDS: ACCU-CHEK XX SCH ×6 (01:15→21:53)
[2018-10-09] MEDS: MEROPENEM 1 GM/50ML(PMX) 50 ML IVPB SCH ×3 (01:56→17:53)
[2018-10-09] MEDS: VANCOMYCIN 750 MG (PMX) 250 ML IVPB SCH ×2 (02:29→14:08)
[2018-10-09] MEDS: HYDROmorphONE 0.5 MG/0.5 ML SYG IV PRN ×2 (02:30→10:26)
[2018-10-09 04:00] VITALS: BP 139/78; PULSE 98; RESP 18
[2018-10-09] MEDS: PANTOPRAZOLE 40 MG INJ IV SCH ×2 (05:27→17:36)
[2018-10-09 07:05] VITALS: BP 125/59; PULSE 103; RESP 19
[2018-10-09] MEDS: INSULIN ASPART [NOVOLOG] 3 ML PEN SC SCH ×4 (07:55→21:00)
[2018-10-09] MEDS: BALSAM PERU/CASTOR OIL 60 GM TUBE TOP SCH ×2 (08:45→21:55)
[2018-10-09] MEDS: FLUTICASONE/VILANTEROL 200-25 INH DEVICE INH SCH (08:45)
[2018-10-09] MEDS: COLLAGENASE 5 GM (UD JAR) TOP SCH (08:45)
[2018-10-09] MEDS: MULTIVITAMINS THERAPEUTIC TAB PO SCH (08:45)
[2018-10-09] MEDS: ENOXAPARIN 100 MG/ML SYG SC SCH ×2 (08:55→22:02)
[2018-10-09] MEDS: TPN 1,000 ML IV SCH (09:03)
--- NOTE | 2018-10-09 10:12 | CONS ---
Assessment/Plan Assessment/Plan Hospital Course (Demo Recall) Stable on 3 L nc, no fevers POD#7 Antimicrobials: Meropenem, Vanco, Diflucan Indwelling: Left-sided RAFAL, PICC line, Cline catheter HEENT: Within normal limits. NECK: Supple. CHEST: Decreased breath sounds at the bases. HEART: S1 S2 ABDOMEN: Distended, bowel sounds hypoactive, mid abdominal dressing intact EXTREMITIES: Without cyanosis, clubbing, or edema. Assessment: 1. Acute hypoxemic respiratory failure 2. Sepsis s/p shock 3. Perforated bowel with multiple abscess and small bowel obstruction, status post laparotomy/open exploration 10/02/2018 4. HCAP 5. Non-ST elevation [place] 6. COPD Plan: Doing better, cxr improved, continue abx for couple more days Consultation Date/Type/Reason Admit Date/Time Sep 15, 2018 at 03:32 Initial Consult Date 09/24/18 Type of Consult id Requesting Provider: LEOBARDO DC Date/Time of Note DATE: 10/09/18 TIME: 10:10 Exam/Review of Systems Exam Vitals Vital Signs Date Temp Pulse Resp B/P (MAP) Pulse Ox O2 O2 Flow FiO2 Time Delivery Rate 10/09/18 109 16 98 Nasal 3.0 08:19 Cannula 10/09/18 98.2 125/59 07:05 (81) 10/07/18 30 12:38 Intake and Output 10/08/18 10/08/18 10/09/18 1515:00 23:00 07:00 IntakeIntake Total 572 ml 170 ml 50 ml OutputOutput Total 125 ml 2400 ml 2340 ml BalanceBalance 447 ml -2230 ml -2290 ml Results Result Diagram: 10/08/18 0649 10/08/18 0649 Results 24hrs Laboratory Tests Test 10/08/18 12:20 10/08/18 13:44 10/08/18 17:33 10/08/18 20:32 Bedside Glucose 115 111 87 Vancomycin Level 7.9 L Trough Test 10/09/18 01:11 10/09/18 05:28 10/09/18 08:43 Bedside Glucose 84 100 103 Medications Medication Current Medications IV Flush (NS 3 ml) 3 ml PER PROTOCOL IV ; Start 09/15/18 at 07:30 Ondansetron HCl (Zofran Inj) 4 mg Q6H PRN IV NAUSEA/VOMITING Last administered on 10/06/18 09:49; Admin Dose 4 MG; Start 09/15/18 at 07:30 Acetaminophen (Tylenol Tab) 650 mg Q6H PRN PO .PAIN 1-3 OR TEMP Last administered on 09/16/18 21:56; Admin Dose 650 MG; Start 09/15/18 at 07:30 Baclofen (Lioresal) 10 mg BID PO Last administered on 09/23/18 09:45; Admin Dose 10 MG; Start 09/15/18 at 09:00; Status Hold Buspirone HCl (Buspar) 10 mg BID PO Last administered on 09/23/18 11:44; Admin Dose 10 MG; Start 09/15/18 at 09:00; Status Hold Calcium Carbonate (Oyster Shell Calcium) 1.25 gm BID PO Last administered on 09/23/18 11:44; Admin Dose 1.25 GM; Start 09/15/18 at 09:00; Status Hold Clonazepam (Klonopin) 0.5 mg DAILY PRN PO ANXIETY Last administered on 09/23/18 02:04; Admin Dose 0.5 MG; Start 09/15/18 at 07:30; Status Hold Docusate Sodium (Colace) 100 mg BID PO Last administered on 09/23/18 09:43; Admin Dose 100 MG; Start 09/15/18 at 09:00; Status Hold Rifaximin (Xifaxan) 550 mg BID PO Last administered on 09/22/18 21:42; Admin Dose 550 MG; Start 09/15/18 at 09:00; Status Hold Sertraline HCl (Zoloft) 100 mg DAILY PO ; Start 09/15/18 at 09:00; Status Hold Fluticasone/ Vilanterol (Breo Ellipta 200-25 Mcg Inh) 1 inh DAILY INH Last administered on 10/09/18 08:45; Admin Dose 1 INH; Start 09/15/18 at 09:00 Albuterol/ Ipratropium (Duoneb) 3 ml Q3H RESP THERAPY PRN HHN WHEEZING AND SOB Last administered on 09/21/18 21:08; Admin Dose 3 ML; Start 09/15/18 at 08:00 Levalbuterol (Xopenex Neb) 0.63 mg Q4H RESP THERAPY HHN Last administered on 10/09/18 08:17; Admin Dose 0.63 MG; Start 09/15/18 at 17:00 Levalbuterol (Xopenex Neb) 0.63 mg Q2H RESP THERAPY PRN HHN WHEEZING AND SOB; Start 09/15/18 at 14:00 Collagenase (Santyl) 1 applic DAILY TOP Last administered on 10/09/18 08:45; Admin Dose 1 APPLIC; Start 09/16/18 at 15:00 Multivitamins Therapeutic (Theragran) 1 tab DAILY PO Last administered on 10/09/18 08:45; Admin Dose 1 TAB; Start 09/19/18 at 12:00 Ascorbic Acid (Vitamin C) 500 mg DAILY PO Last administered on 09/23/18 09:45; Admin Dose 500 MG; Start 09/19/18 at 12:00; Status Hold Zinc Sulfate (Zinc Sulfate) 220 mg DAILY PO Last administered on 09/22/18 08:50; Admin Dose 220 MG; Start 09/19/18 at 12:00; Status Hold Thiamine HCl (Vitamin B1) 50 mg DAILY PO Last administered on 09/23/18 09:45; Admin Dose 50 MG; Start 09/19/18 at 12:00; Status Hold Simethicone (Mylicon) 80 mg Q6H PRN PO DISTENSION/GAS/BLOATING Last administered on 10/08/18 12:18; Admin Dose 80 MG; Start 09/20/18 at 06:30 Diltiazem HCl (Cardizem Cd) 120 mg DAILY PO Last administered on 09/23/18 11:41; Admin Dose 120 MG; Start 09/20/18 at 09:00; Status Hold Zolpidem Tartrate (Ambien) 5 mg HS PRN PO INSOMNIA Last administered on 09/24/18 01:16; Admin Dose 5 MG; Start 09/21/18 at 02:00; Status Hold Phenol (Cepastat Lozenge) 1 lozenge Q1H PRN MT SORE THROAT Last administered on 09/22/18 03:32; Admin Dose 1 LOZENGE; Start 09/22/18 at 01:00 Levofloxacin (Levaquin) 500 mg DAILY@06 PO Last administered on 09/23/18 07:21; Admin Dose 500 MG; Start 09/23/18 at 06:00; Status Hold Metronidazole 100 ml @ 100 mls/hr Q8 IVPB Last administered on 09/23/18at 22:03; Admin Dose 100 MLS/HR; Start 09/23/18 at 14:00; Status Hold Meropenem/Sodium Chloride 50 ml @ 100 mls/hr Q8H IVPB Last administered on 10/09/18at 01:56; Admin Dose 100 MLS/HR; Start 09/24/18 at 02:30 Hydromorphone HCl (Dilaudid) 0.5 mg Q4H PRN IV SEVERE PAIN LEVEL 7-10 Last administered on 10/09/18at 02:30; Admin Dose 0.5 MG; Start 09/24/18 at 03:00 Lorazepam (Ativan) 0.5 mg Q6H PRN IV ANXIETY Last administered on 10/09/18at 00:58; Admin Dose 0.5 MG; Start 09/24/18 at 03:00 Pantoprazole (Protonix Iv) 40 mg BID@06,18 IV Last administered on 10/09/18at 05:27; Admin Dose 40 MG; Start 09/24/18 at 18:00 Miscellaneous Information 1 ea NOTE XX ; Start 09/25/18 at 22:00 Glucose (Glutose) 15 gm Q15M PRN PO DECREASED GLUCOSE; Start 09/25/18 at 22:00 Glucose (Glutose) 22.5 gm Q15M PRN PO DECREASED GLUCOSE; Start 09/25/18 at 22:00 Dextrose (D50w Syringe) 25 ml Q15M PRN IV DECREASED GLUCOSE Last administered on 09/30/18at 01:04; Admin Dose 25 ML; Start 09/25/18 at 22:00 Dextrose (D50w Syringe) 50 ml Q15M PRN IV DECREASED GLUCOSE; Start 09/25/18 at 22:00 Glucagon (Glucagen) 1 mg Q15M PRN IM DECREASED GLUCOSE; Start 09/25/18 at 22:00 Glucose (Glutose) 15 gm Q15M PRN BUCCAL DECREASED GLUCOSE; Start 09/25/18 at 22:00 Methadone HCl (Methadone Liq) 2 mg Q4 SL Last administered on 10/09/18at 08:44; Admin Dose 2 MG; Start 09/28/18 at 09:30 IV Flush (NS 10 ml) 10 ml PRN PRN IV IV PROTOCOL; Start 09/30/18 at 19:30 Total Parenteral Nutrition 1,000 ml @ 60 mls/hr [id number] IV Last administered on 10/09/18 09:03; Admin Dose 60 MLS/HR; Start 10/01/18 at 18:00 Insulin Aspart (Novolog Insulin Pen) NOVOLOG *MILD* ALGORITHM WITH MEALS BEDTIME SC Last administered on 10/03/18 13:02; Admin Dose 2 UNIT; Start 10/01/18 at 21:00 Diagnostic Test (Pha) (Accu-Chek) 1 ea Q4 XX Last administered on 10/09/18 09:01; Admin Dose 1 EA; Start 10/03/18 at 13:00 Vancomycin HCl (Vanco Iv Per Pharmacy) VANCOMYCIN PER PHARMACY PER PROTOCOL XX ; Start 10/03/18 at 13:30 Fluconazole/ Sodium Chloride 50 ml @ 50 mls/hr Q24H IVPB Last administered on 10/08/18 13:45; Admin Dose 50 MLS/HR; Start 10/03/18 at 13:30 Enoxaparin Sodium (Lovenox) 45 mg Q12 SC Last administered on 10/09/18 08:55; Admin Dose 45 MG; Start 10/08/18 at 21:00 Vancomycin/Sodium Chloride 250 ml @ 125 mls/hr Q12H IVPB Last administered on 10/09/18 02:29; Admin Dose 125 MLS/HR; Start 10/09/18 at 02:00 SKY BENAVIDES NP Oct 09, 2018 10:12
[2018-10-09 11:05] VITALS: BP 105/56; PULSE 108; RESP 18
--- NOTE | 2018-10-09 11:32 | PN ---
Date/Time of Note Date/Time of Note DATE: 10/09/18 TIME: 11:30 Assessment/Plan VTE Prophylaxis Risk score (from Nsg)>0 risk: 11 SCD applied (from Nsg): Yes Pharmacological prophylaxis: LMWH Lines/Catheters IV Catheter Type (from Nrsg): PICC Line Central line still needed: Yes Urinary Cath still in place: Yes Reason Cath still needed: other (indicate) (not needed) Assessment/Plan Assessment/Plan 68-year-old woman with history of COPD, PE in May 2018, CKD, admitted for COPD exacerbation and found to have ileum perforation with abdominal abscess. #Small bowel perforation #Abdominal abscess - Weeks of abdominal distension, tenderness, bloating. - CT on 09/23 first showed pneumoperitoneum, taken to OR by Dr. Schumacher on 10/02, found to have perforated terminal ileum with abdominal abscess s/p drainage - Etiology is unclear. - ID following, on meropenem and diflucan (?) - Advance to full liquids #Anemia - Likely due to abdominal perforation - Transfuse to Hgb>7 or for symptomatic anemia # Hypoxic and hypercapnic respiratory failure: Resolved. - PE in May 2018, on lovenox, eventually will transition back to Eliquis. - Had hypoxemic episode on 10/05, likely due to benzodiazepines, - Now on nasal cannula. Goal sat 88-92%. #MRSA colonization of the nares - s/p mupirocin GI: PPI DVT: lovenox Dispo: Advance diet, begin ambulating, plan for SNF placement. Result Diagram: 10/09/18 1022 10/09/18 1022 Subjective 24 Hr Interval Summary Free Text/Dictation No acute overnight events. Patient doing well, no complaints. Exam/Review of Systems Exam Vitals Vital Signs Date Temp Pulse Resp B/P (MAP) Pulse Ox O2 O2 Flow FiO2 Time Delivery Rate 10/09/18 98.4 108 18 105/56 94 Nasal 11:05 (72) Cannula 10/09/18 3.0 08:19 10/07/18 30 12:38 Intake and Output 10/08/18 10/08/18 10/09/18 1515:00 23:00 07:00 IntakeIntake Total 572 ml 170 ml 50 ml OutputOutput Total 125 ml 2400 ml 2340 ml BalanceBalance 447 ml -2230 ml -2290 ml Exam Gen: Thin frail appearing woman lying in bed, awake and alert. Head: Atraumatic, clear oropharynx Eyes: Normal Conjunctiva, ENT: Normal External Ears, Nose and Mouth. Moist mucous membranes. Neck: Full range of motion. No meningismus. Resp: Clear to auscultation bilaterally Cardio: Regular rate and rhythm, no murmurs Abd: Distended, soft. Midline incision dressing clean and dry. Lap incisions clean and dry. Normoactive bowel sounds. Ext: No bilateral lower extremity edema Results Results 24hrs Laboratory Tests Test 10/08/18 12:20 10/08/18 13:44 10/08/18 17:33 10/08/18 20:32 Bedside Glucose 115 111 87 Vancomycin Level 7.9 L Trough Test 10/09/18 01:11 10/09/18 05:28 10/09/18 08:43 10/09/18 10:22 Bedside Glucose 84 100 103 White Blood Count 9.2 Red Blood Count 2.99 L Hemoglobin 8.6 L Hematocrit 28.3 L Mean Corpuscular 94.6 Volume Mean Corpuscular 28.8 L Hemoglobin Mean Corpuscular 30.4 L Hemoglobin Concent Red Cell 15.8 H Distribution Width Platelet Count 195 # Mean Platelet Volume 11.6 H Immature 0.800 H Granulocytes % Neutrophils % 66.6 Lymphocytes % 16.0 Monocytes % 6.2 Eosinophils % 10.0 H Basophils % 0.4 Nucleated Red Blood 0.0 Cells % Immature 0.070 H Granulocytes # Neutrophils # 6.1 Lymphocytes # 1.5 Monocytes # 0.6 Eosinophils # 0.9 H Basophils # 0.0 Nucleated Red Blood 0.0 Cells # Sodium Level 132 L Potassium Level 3.2 L Chloride Level 94 L Carbon Dioxide Level 37 H Anion Gap 1 L Blood Urea Nitrogen 11 Creatinine 0.41 L Est Glomerular > 60 Filtrat Rate mL/min Glucose Level 147 # Calcium Level 7.0 L Alkaline Phosphatase 74 Medications Medication Current Medications IV Flush (NS 3 ml) 3 ml PER PROTOCOL IV ; Start 09/15/18 at 07:30 Ondansetron HCl (Zofran Inj) 4 mg Q6H PRN IV NAUSEA/VOMITING Last administered on 10/06/18at 09:49; Admin Dose 4 MG; Start 09/15/18 at 07:30 Acetaminophen (Tylenol Tab) 650 mg Q6H PRN PO .PAIN 1-3 OR TEMP Last administered on 09/16/18 21:56; Admin Dose 650 MG; Start 09/15/18 at 07:30 Baclofen (Lioresal) 10 mg BID PO Last administered on 09/23/18 09:45; Admin Dose 10 MG; Start 09/15/18 at 09:00; Status Hold Buspirone HCl (Buspar) 10 mg BID PO Last administered on 09/23/18 11:44; Admin Dose 10 MG; Start 09/15/18 at 09:00; Status Hold Calcium Carbonate (Oyster Shell Calcium) 1.25 gm BID PO Last administered on 09/23/18 11:44; Admin Dose 1.25 GM; Start 09/15/18 at 09:00; Status Hold Clonazepam (Klonopin) 0.5 mg DAILY PRN PO ANXIETY Last administered on 09/23/18 02:04; Admin Dose 0.5 MG; Start 09/15/18 at 07:30; Status Hold Docusate Sodium (Colace) 100 mg BID PO Last administered on 09/23/18 09:43; Admin Dose 100 MG; Start 09/15/18 at 09:00; Status Hold Rifaximin (Xifaxan) 550 mg BID PO Last administered on 09/22/18 21:42; Admin Dose 550 MG; Start 09/15/18 at 09:00; Status Hold Sertraline HCl (Zoloft) 100 mg DAILY PO ; Start 09/15/18 at 09:00; Status Hold Fluticasone/ Vilanterol (Breo Ellipta 200-25 Mcg Inh) 1 inh DAILY INH Last administered on 10/09/18 08:45; Admin Dose 1 INH; Start 09/15/18 at 09:00 Albuterol/ Ipratropium (Duoneb) 3 ml Q3H RESP THERAPY PRN HHN WHEEZING AND SOB Last administered on 09/21/18 21:08; Admin Dose 3 ML; Start 09/15/18 at 08:00 Levalbuterol (Xopenex Neb) 0.63 mg Q4H RESP THERAPY HHN Last administered on 10/09/18 08:17; Admin Dose 0.63 MG; Start 09/15/18 at 17:00 Levalbuterol (Xopenex Neb) 0.63 mg Q2H RESP THERAPY PRN HHN WHEEZING AND SOB; Start 09/15/18 at 14:00 Collagenase (Santyl) 1 applic DAILY TOP Last administered on 10/09/18 08:45; Admin Dose 1 APPLIC; Start 09/16/18 at 15:00 Multivitamins Therapeutic (Theragran) 1 tab DAILY PO Last administered on 10/09/18 08:45; Admin Dose 1 TAB; Start 09/19/18 at 12:00 Ascorbic Acid (Vitamin C) 500 mg DAILY PO Last administered on 09/23/18 09:45; Admin Dose 500 MG; Start 09/19/18 at 12:00; Status Hold Zinc Sulfate (Zinc Sulfate) 220 mg DAILY PO Last administered on 09/22/18 08:50; Admin Dose 220 MG; Start 09/19/18 at 12:00; Status Hold Thiamine HCl (Vitamin B1) 50 mg DAILY PO Last administered on 09/23/18 09:45; Admin Dose 50 MG; Start 09/19/18 at 12:00; Status Hold Simethicone (Mylicon) 80 mg Q6H PRN PO DISTENSION/GAS/BLOATING Last administered on 10/08/18 12:18; Admin Dose 80 MG; Start 09/20/18 at 06:30 Diltiazem HCl (Cardizem Cd) 120 mg DAILY PO Last administered on 09/23/18 11:41; Admin Dose 120 MG; Start 09/20/18 at 09:00; Status Hold Zolpidem Tartrate (Ambien) 5 mg HS PRN PO INSOMNIA Last administered on 09/24/18 01:16; Admin Dose 5 MG; Start 09/21/18 at 02:00; Status Hold Phenol (Cepastat Lozenge) 1 lozenge Q1H PRN MT SORE THROAT Last administered on 09/22/18 03:32; Admin Dose 1 LOZENGE; Start 09/22/18 at 01:00 Levofloxacin (Levaquin) 500 mg DAILY@06 PO Last administered on 09/23/18 07:21; Admin Dose 500 MG; Start 09/23/18 at 06:00; Status Hold Metronidazole 100 ml @ 100 mls/hr Q8 IVPB Last administered on 09/23/18 22:03; Admin Dose 100 MLS/HR; Start 09/23/18 at 14:00; Status Hold Meropenem/Sodium Chloride 50 ml @ 100 mls/hr Q8H IVPB Last administered on 10/09/18at 10:25; Admin Dose 100 MLS/HR; Start 09/24/18 at 02:30 Hydromorphone HCl (Dilaudid) 0.5 mg Q4H PRN IV SEVERE PAIN LEVEL 7-10 Last administered on 10/09/18at 10:26; Admin Dose 0.5 MG; Start 09/24/18 at 03:00 Lorazepam (Ativan) 0.5 mg Q6H PRN IV ANXIETY Last administered on 10/09/18at 00:58; Admin Dose 0.5 MG; Start 09/24/18 at 03:00 Pantoprazole (Protonix Iv) 40 mg BID@06,18 IV Last administered on 10/09/18at 05:27; Admin Dose 40 MG; Start 09/24/18 at 18:00 Miscellaneous Information 1 ea NOTE XX ; Start 09/25/18 at 22:00 Glucose (Glutose) 15 gm Q15M PRN PO DECREASED GLUCOSE; Start 09/25/18 at 22:00 Glucose (Glutose) 22.5 gm Q15M PRN PO DECREASED GLUCOSE; Start 09/25/18 at 22:00 Dextrose (D50w Syringe) 25 ml Q15M PRN IV DECREASED GLUCOSE Last administered on 09/30/18at 01:04; Admin Dose 25 ML; Start 09/25/18 at 22:00 Dextrose (D50w Syringe) 50 ml Q15M PRN IV DECREASED GLUCOSE; Start 09/25/18 at 22:00 Glucagon (Glucagen) 1 mg Q15M PRN IM DECREASED GLUCOSE; Start 09/25/18 at 22:00 Glucose (Glutose) 15 gm Q15M PRN BUCCAL DECREASED GLUCOSE; Start 09/25/18 at 22:00 Methadone HCl (Methadone Liq) 2 mg Q4 SL Last administered on 10/09/18at 08:44; Admin Dose 2 MG; Start 09/28/18 at 09:30 IV Flush (NS 10 ml) 10 ml PRN PRN IV IV PROTOCOL; Start 09/30/18 at 19:30 Total Parenteral Nutrition 1,000 ml @ 60 mls/hr [id number] IV Last administered on 10/09/18 09:03; Admin Dose 60 MLS/HR; Start 10/01/18 at 18:00 Insulin Aspart (Novolog Insulin Pen) NOVOLOG *MILD* ALGORITHM WITH MEALS BEDTIME SC Last administered on 10/03/18 13:02; Admin Dose 2 UNIT; Start 10/01/18 at 21:00 Diagnostic Test (Pha) (Accu-Chek) 1 ea Q4 XX Last administered on 10/09/18 09:01; Admin Dose 1 EA; Start 10/03/18 at 13:00 Vancomycin HCl (Vanco Iv Per Pharmacy) VANCOMYCIN PER PHARMACY PER PROTOCOL XX ; Start 10/03/18 at 13:30 Fluconazole/ Sodium Chloride 50 ml @ 50 mls/hr Q24H IVPB Last administered on 10/08/18 13:45; Admin Dose 50 MLS/HR; Start 10/03/18 at 13:30 Enoxaparin Sodium (Lovenox) 45 mg Q12 SC Last administered on 10/09/18 08:55; Admin Dose 45 MG; Start 10/08/18 at 21:00 Vancomycin/Sodium Chloride 250 ml @ 125 mls/hr Q12H IVPB Last administered on 10/09/18 02:29; Admin Dose 125 MLS/HR; Start 10/09/18 at 02:00 PRASHANT HILTON MD Oct 09, 2018 11:32
[2018-10-09] MEDS ORDERED: POTASSIUM CHLORIDE 20 MEQ POWDER FOR ORAL SOLN PO ONE (12:00)
--- NOTE | 2018-10-09 12:05 | CONS ---
Consult Date/Type/Reason Admit Date/Time Sep 15, 2018 at 03:32 Initial Consult Date 09/15/18 Type of Consult Pulmonary Requesting Provider: LEOBARDO DC Date/Time of Note DATE: 10/09/18 TIME: 11:56 Subjective Patient comfortable this morning no respiratory distress Objective Vital Signs Date Temp Pulse Resp B/P (MAP) Pulse Ox O2 O2 Flow FiO2 Time Delivery Rate 10/09/18 98.4 108 18 105/56 94 Nasal 11:05 (72) Cannula 10/09/18 3.0 08:19 10/07/18 30 12:38 Intake and Output 10/08/18 10/08/18 10/09/18 1515:00 23:00 07:00 IntakeIntake Total 572 ml 170 ml 50 ml OutputOutput Total 125 ml 2400 ml 2340 ml BalanceBalance 447 ml -2230 ml -2290 ml Exam GENERAL: Thin elderly lady appears comfortable at rest VITAL SIGNS: per chart NECK: Supple. No JVD or lymphadenopathy. CARDIAC EXAM: S1, S2. No added sounds or murmurs. CHEST: clear bilaterally, No added sounds, rales or wheezes ABDOMEN: Soft, nontender. No guarding or rebound. EXTREMITIES: No cyanosis, clubbing or edema. NEUROLOGIC: Generalized weakness. No focal deficits. Vent Setting Fraction of Inspired Oxygen pe: 30 Results/Medications Result Diagram: 10/09/18 1022 10/09/18 1022 Results 24 hrs Laboratory Tests Test 10/08/18 12:20 10/08/18 13:44 10/08/18 17:33 10/08/18 20:32 Bedside Glucose 115 111 87 Vancomycin Level 7.9 L Trough Test 10/09/18 01:11 10/09/18 05:28 10/09/18 08:43 10/09/18 10:22 Bedside Glucose 84 100 103 White Blood Count 9.2 Red Blood Count 2.99 L Hemoglobin 8.6 L Hematocrit 28.3 L Mean Corpuscular 94.6 Volume Mean Corpuscular 28.8 L Hemoglobin Mean Corpuscular 30.4 L Hemoglobin Concent Red Cell 15.8 H Distribution Width Platelet Count 195 # Mean Platelet Volume 11.6 H Immature 0.800 H Granulocytes % Neutrophils % 66.6 Lymphocytes % 16.0 Monocytes % 6.2 Eosinophils % 10.0 H Basophils % 0.4 Nucleated Red Blood 0.0 Cells % Immature 0.070 H Granulocytes # Neutrophils # 6.1 Lymphocytes # 1.5 Monocytes # 0.6 Eosinophils # 0.9 H Basophils # 0.0 Nucleated Red Blood 0.0 Cells # Sodium Level 132 L Potassium Level 3.2 L Chloride Level 94 L Carbon Dioxide Level 37 H Anion Gap 1 L Blood Urea Nitrogen 11 Creatinine 0.41 L Est Glomerular > 60 Filtrat Rate mL/min Glucose Level 147 # Calcium Level 7.0 L Alkaline Phosphatase 74 Medications Current Medications IV Flush (NS 3 ml) 3 ml PER PROTOCOL IV ; Start 09/15/18 at 07:30 Ondansetron HCl (Zofran Inj) 4 mg Q6H PRN IV NAUSEA/VOMITING Last administered on 10/06/18 09:49; Admin Dose 4 MG; Start 09/15/18 at 07:30 Acetaminophen (Tylenol Tab) 650 mg Q6H PRN PO .PAIN 1-3 OR TEMP Last administered on 09/16/18 21:56; Admin Dose 650 MG; Start 09/15/18 at 07:30 Baclofen (Lioresal) 10 mg BID PO Last administered on 09/23/18 09:45; Admin Dose 10 MG; Start 09/15/18 at 09:00; Status Hold Buspirone HCl (Buspar) 10 mg BID PO Last administered on 09/23/18 11:44; Admin Dose 10 MG; Start 09/15/18 at 09:00; Status Hold Calcium Carbonate (Oyster Shell Calcium) 1.25 gm BID PO Last administered on 09/23/18 11:44; Admin Dose 1.25 GM; Start 09/15/18 at 09:00; Status Hold Clonazepam (Klonopin) 0.5 mg DAILY PRN PO ANXIETY Last administered on 09/23/18 02:04; Admin Dose 0.5 MG; Start 09/15/18 at 07:30; Status Hold Docusate Sodium (Colace) 100 mg BID PO Last administered on 09/23/18 09:43; Admin Dose 100 MG; Start 09/15/18 at 09:00; Status Hold Rifaximin (Xifaxan) 550 mg BID PO Last administered on 09/22/18 21:42; Admin Dose 550 MG; Start 09/15/18 at 09:00; Status Hold Sertraline HCl (Zoloft) 100 mg DAILY PO ; Start 09/15/18 at 09:00; Status Hold Fluticasone/ Vilanterol (Breo Ellipta 200-25 Mcg Inh) 1 inh DAILY INH Last administered on 10/09/18 08:45; Admin Dose 1 INH; Start 09/15/18 at 09:00 Albuterol/ Ipratropium (Duoneb) 3 ml Q3H RESP THERAPY PRN HHN WHEEZING AND SOB Last administered on 09/21/18 21:08; Admin Dose 3 ML; Start 09/15/18 at 08:00 Levalbuterol (Xopenex Neb) 0.63 mg Q4H RESP THERAPY HHN Last administered on 10/09/18 08:17; Admin Dose 0.63 MG; Start 09/15/18 at 17:00 Levalbuterol (Xopenex Neb) 0.63 mg Q2H RESP THERAPY PRN HHN WHEEZING AND SOB; Start 09/15/18 at 14:00 Collagenase (Santyl) 1 applic DAILY TOP Last administered on 10/09/18 08:45; Admin Dose 1 APPLIC; Start 09/16/18 at 15:00 Multivitamins Therapeutic (Theragran) 1 tab DAILY PO Last administered on 10/09/18 08:45; Admin Dose 1 TAB; Start 09/19/18 at 12:00 Ascorbic Acid (Vitamin C) 500 mg DAILY PO Last administered on 09/23/18 09:45; Admin Dose 500 MG; Start 09/19/18 at 12:00; Status Hold Zinc Sulfate (Zinc Sulfate) 220 mg DAILY PO Last administered on 09/22/18 08:50; Admin Dose 220 MG; Start 09/19/18 at 12:00; Status Hold Thiamine HCl (Vitamin B1) 50 mg DAILY PO Last administered on 09/23/18 09:45; Admin Dose 50 MG; Start 09/19/18 at 12:00; Status Hold Simethicone (Mylicon) 80 mg Q6H PRN PO DISTENSION/GAS/BLOATING Last administered on 10/08/18 12:18; Admin Dose 80 MG; Start 09/20/18 at 06:30 Diltiazem HCl (Cardizem Cd) 120 mg DAILY PO Last administered on 09/23/18 11:41; Admin Dose 120 MG; Start 09/20/18 at 09:00; Status Hold Zolpidem Tartrate (Ambien) 5 mg HS PRN PO INSOMNIA Last administered on 09/24/18 01:16; Admin Dose 5 MG; Start 09/21/18 at 02:00; Status Hold Phenol (Cepastat Lozenge) 1 lozenge Q1H PRN MT SORE THROAT Last administered on 09/22/18 03:32; Admin Dose 1 LOZENGE; Start 09/22/18 at 01:00 Levofloxacin (Levaquin) 500 mg DAILY@06 PO Last administered on 09/23/18 07:21; Admin Dose 500 MG; Start 09/23/18 at 06:00; Status Hold Metronidazole 100 ml @ 100 mls/hr Q8 IVPB Last administered on 09/23/18 22:03; Admin Dose 100 MLS/HR; Start 09/23/18 at 14:00; Status Hold Meropenem/Sodium Chloride 50 ml @ 100 mls/hr Q8H IVPB Last administered on 10/09/18 10:25; Admin Dose 100 MLS/HR; Start 09/24/18 at 02:30 Hydromorphone HCl (Dilaudid) 0.5 mg Q4H PRN IV SEVERE PAIN LEVEL 7-10 Last administered on 10/09/18 10:26; Admin Dose 0.5 MG; Start 09/24/18 at 03:00 Lorazepam (Ativan) 0.5 mg Q6H PRN IV ANXIETY Last administered on 10/09/18 00 :58; Admin Dose 0.5 MG; Start 09/24/18 at 03:00 Pantoprazole (Protonix Iv) 40 mg BID@06,18 IV Last administered on 10/09/18 05:27; Admin Dose 40 MG; Start 09/24/18 at 18:00 Miscellaneous Information 1 ea NOTE XX ; Start 09/25/18 at 22:00 Glucose (Glutose) 15 gm Q15M PRN PO DECREASED GLUCOSE; Start 09/25/18 at 22:00 Glucose (Glutose) 22.5 gm Q15M PRN PO DECREASED GLUCOSE; Start 09/25/18 at 22:0 0 Dextrose (D50w Syringe) 25 ml Q15M PRN IV DECREASED GLUCOSE Last administered on 09/30/18 01:04; Admin Dose 25 ML; Start 09/25/18 at 22:00 Dextrose (D50w Syringe) 50 ml Q15M PRN IV DECREASED GLUCOSE; Start 09/25/18 at 22:00 Glucagon (Glucagen) 1 mg Q15M PRN IM DECREASED GLUCOSE; Start 09/25/18 at 22:00 Glucose (Glutose) 15 gm Q15M PRN BUCCAL DECREASED GLUCOSE; Start 09/25/18 at 22:00 Methadone HCl (Methadone Liq) 2 mg Q4 SL Last administered on 10/09/18at 08:44; Admin Dose 2 MG; Start 09/28/18 at 09:30 IV Flush (NS 10 ml) 10 ml PRN PRN IV IV PROTOCOL; Start 09/30/18 at 19:30 Insulin Aspart (Novolog Insulin Pen) NOVOLOG *MILD* ALGORITHM WITH MEALS BEDTIME SC Last administered on 10/03/18 13:02; Admin Dose 2 UNIT; Start 10/01/18 at 21:00 Diagnostic Test (Pha) (Accu-Chek) 1 ea Q4 XX Last administered on 10/09/18at 09:01; Admin Dose 1 EA; Start 10/03/18 at 13:00 Vancomycin HCl (Vanco Iv Per Pharmacy) VANCOMYCIN PER PHARMACY PER PROTOCOL XX ; Start 10/03/18 at 13:30 Fluconazole/ Sodium Chloride 50 ml @ 50 mls/hr Q24H IVPB Last administered on 10/08/18at 13:45; Admin Dose 50 MLS/HR; Start 10/03/18 at 13:30 Enoxaparin Sodium (Lovenox) 45 mg Q12 SC Last administered on 10/09/18at 08:55; Admin Dose 45 MG; Start 10/08/18 at 21:00 Vancomycin/Sodium Chloride 250 ml @ 125 mls/hr Q12H IVPB Last administered on 10/09/18at 02:29; Admin Dose 125 MLS/HR; Start 10/09/18 at 02:00 Assessment/Plan Hospital Course (Demo Recall) Assessment/plan 1. COPD currently stable no acute exacerbation 2. Perforated bowel being managed conservatively Continue supportive care and surgical recommendations Consider transfer to [facility] Oct 09, 2018 12:05
--- NOTE | 2018-10-09 12:23 | CONS ---
Assessment/Plan Assessment/Plan Hospital Course (Demo Recall) 1. Nonoliguric acute kidney injury. Etiology is secondary to hemodynamics. Renal function has improved. Continue to monitor. 2. Hyponatremia: variable. check urine na and osmolality 3. Hypokalemia: replace 4. Anemia. Monitor hemoglobin and hematocrit levels. 5. Mineral bone disorder, monitor calcium and phosphorus levels. 6. Perforated terminal ileum. The patient is status post ileocolectomy with drainage of abscess currently with a paralytic ileus. Continue to monitor. Follow up with general surgery. Continue pain control. 7. Sepsis, status post shock. Continue current antibiotic regimen. 8. Volume overload, improving. 9. Acute hypoxic respiratory failure, pneumonia and chronic obstructive pulmonary disease. Continue high flow oxygen, nebulizers. Pulmonary. Acute encephalopathy, etiology is toxic metabolic. 10. Nutrition. Continue total parenteral nutrition. Consultation Date/Type/Reason Admit Date/Time Sep 15, 2018 at 03:32 Initial Consult Date 09/24/18 Requesting Provider: LEOBARDO DC Date/Time of Note DATE: 10/09/18 TIME: 12:22 24 HR Interval Summary Free Text/Dictation no n/v or f/c d/w rn gen nad cv rrr pulm ctab abd soft nd nt +bs ext: no edema Exam/Review of Systems Exam Vitals Vital Signs Date Temp Pulse Resp B/P (MAP) Pulse Ox O2 O2 Flow FiO2 Time Delivery Rate 10/09/18 15 100 Nasal 3.0 12:13 Cannula 10/09/18 98.4 108 105/56 11:05 (72) 10/07/18 30 12:38 Intake and Output 10/08/18 10/08/18 10/09/18 1515:00 23:00 07:00 IntakeIntake Total 572 ml 170 ml 50 ml OutputOutput Total 125 ml 2400 ml 2340 ml BalanceBalance 447 ml -2230 ml -2290 ml Results Result Diagram: 10/09/18 1022 10/09/18 1022 Results 24hrs Laboratory Tests Test 10/08/18 13:44 10/08/18 17:33 10/08/18 20:32 10/09/18 01:11 Vancomycin Level 7.9 L Trough Bedside Glucose 111 87 84 Test 10/09/18 05:28 10/09/18 08:43 10/09/18 10:22 Bedside Glucose 100 103 White Blood Count 9.2 Red Blood Count 2.99 L Hemoglobin 8.6 L Hematocrit 28.3 L Mean Corpuscular 94.6 Volume Mean Corpuscular 28.8 L Hemoglobin Mean Corpuscular 30.4 L Hemoglobin Concent Red Cell 15.8 H Distribution Width Platelet Count 195 # Mean Platelet Volume 11.6 H Immature 0.800 H Granulocytes % Neutrophils % 66.6 Lymphocytes % 16.0 Monocytes % 6.2 Eosinophils % 10.0 H Basophils % 0.4 Nucleated Red Blood 0.0 Cells % Immature 0.070 H Granulocytes # Neutrophils # 6.1 Lymphocytes # 1.5 Monocytes # 0.6 Eosinophils # 0.9 H Basophils # 0.0 Nucleated Red Blood 0.0 Cells # Sodium Level 132 L Potassium Level 3.2 L Chloride Level 94 L Carbon Dioxide Level 37 H Anion Gap 1 L Blood Urea Nitrogen 11 Creatinine 0.41 L Est Glomerular > 60 Filtrat Rate mL/min Glucose Level 147 # Calcium Level 7.0 L Alkaline Phosphatase 74 Medications Medication Current Medications IV Flush (NS 3 ml) 3 ml PER PROTOCOL IV ; Start 09/15/18 at 07:30 Ondansetron HCl (Zofran Inj) 4 mg Q6H PRN IV NAUSEA/VOMITING Last administered on 10/06/18 09:49; Admin Dose 4 MG; Start 09/15/18 at 07:30 Acetaminophen (Tylenol Tab) 650 mg Q6H PRN PO .PAIN 1-3 OR TEMP Last administered on 09/16/18 21:56; Admin Dose 650 MG; Start 09/15/18 at 07:30 Baclofen (Lioresal) 10 mg BID PO Last administered on 09/23/18 09:45; Admin Dose 10 MG; Start 09/15/18 at 09:00; Status Hold Buspirone HCl (Buspar) 10 mg BID PO Last administered on 09/23/18 11:44; Admin Dose 10 MG; Start 09/15/18 at 09:00; Status Hold Calcium Carbonate (Oyster Shell Calcium) 1.25 gm BID PO Last administered on 09/23/18 11:44; Admin Dose 1.25 GM; Start 09/15/18 at 09:00; Status Hold Clonazepam (Klonopin) 0.5 mg DAILY PRN PO ANXIETY Last administered on 09/23/18 02:04; Admin Dose 0.5 MG; Start 09/15/18 at 07:30; Status Hold Docusate Sodium (Colace) 100 mg BID PO Last administered on 09/23/18 09:43; Admin Dose 100 MG; Start 09/15/18 at 09:00; Status Hold Rifaximin (Xifaxan) 550 mg BID PO Last administered on 09/22/18 21:42; Admin Dose 550 MG; Start 09/15/18 at 09:00; Status Hold Sertraline HCl (Zoloft) 100 mg DAILY PO ; Start 09/15/18 at 09:00; Status Hold Fluticasone/ Vilanterol (Breo Ellipta 200-25 Mcg Inh) 1 inh DAILY INH Last administered on 10/09/18 08:45; Admin Dose 1 INH; Start 09/15/18 at 09:00 Albuterol/ Ipratropium (Duoneb) 3 ml Q3H RESP THERAPY PRN HHN WHEEZING AND SOB Last administered on 09/21/18 21:08; Admin Dose 3 ML; Start 09/15/18 at 08:00 Levalbuterol (Xopenex Neb) 0.63 mg Q4H RESP THERAPY HHN Last administered on 10/09/18 12:09; Admin Dose 0.63 MG; Start 09/15/18 at 17:00 Levalbuterol (Xopenex Neb) 0.63 mg Q2H RESP THERAPY PRN HHN WHEEZING AND SOB; Start 09/15/18 at 14:00 Collagenase (Santyl) 1 applic DAILY TOP Last administered on 10/09/18 08:45; Admin Dose 1 APPLIC; Start 09/16/18 at 15:00 Multivitamins Therapeutic (Theragran) 1 tab DAILY PO Last administered on 10/09/18 08:45; Admin Dose 1 TAB; Start 09/19/18 at 12:00 Ascorbic Acid (Vitamin C) 500 mg DAILY PO Last administered on 09/23/18 09:45; Admin Dose 500 MG; Start 09/19/18 at 12:00; Status Hold Zinc Sulfate (Zinc Sulfate) 220 mg DAILY PO Last administered on 09/22/18 08:50; Admin Dose 220 MG; Start 09/19/18 at 12:00; Status Hold Thiamine HCl (Vitamin B1) 50 mg DAILY PO Last administered on 09/23/18 09:45; Admin Dose 50 MG; Start 09/19/18 at 12:00; Status Hold Simethicone (Mylicon) 80 mg Q6H PRN PO DISTENSION/GAS/BLOATING Last administered on 10/08/18 12:18; Admin Dose 80 MG; Start 09/20/18 at 06:30 Diltiazem HCl (Cardizem Cd) 120 mg DAILY PO Last administered on 09/23/18 11:41; Admin Dose 120 MG; Start 09/20/18 at 09:00; Status Hold Zolpidem Tartrate (Ambien) 5 mg HS PRN PO INSOMNIA Last administered on 09/24/18 01:16; Admin Dose 5 MG; Start 09/21/18 at 02:00; Status Hold Phenol (Cepastat Lozenge) 1 lozenge Q1H PRN MT SORE THROAT Last administered on 09/22/18 03:32; Admin Dose 1 LOZENGE; Start 09/22/18 at 01:00 Levofloxacin (Levaquin) 500 mg DAILY@06 PO Last administered on 09/23/18 07 :21; Admin Dose 500 MG; Start 09/23/18 at 06:00; Status Hold Metronidazole 100 ml @ 100 mls/hr Q8 IVPB Last administered on 09/23/18 22:03; Admin Dose 100 MLS/HR; Start 09/23/18 at 14:00; Status Hold Meropenem/Sodium Chloride 50 ml @ 100 mls/hr Q8H IVPB Last administered on 10/09/18 10:25; Admin Dose 100 MLS/HR; Start 09/24/18 at 02:30 Hydromorphone HCl (Dilaudid) 0.5 mg Q4H PRN IV SEVERE PAIN LEVEL 7-10 Last administered on 10/09/18 10:26; Admin Dose 0.5 MG; Start 09/24/18 at 03:00 Lorazepam (Ativan) 0.5 mg Q6H PRN IV ANXIETY Last administered on 10/09/18 00:58; Admin Dose 0.5 MG; Start 09/24/18 at 03:00 Pantoprazole (Protonix Iv) 40 mg BID@06,18 IV Last administered on 8/11/19at 05:27; Admin Dose 40 MG; Start 09/24/18 at 18:00 Miscellaneous Information 1 ea NOTE XX ; Start 09/25/18 at 22:00 Glucose (Glutose) 15 gm Q15M PRN PO DECREASED GLUCOSE; Start 09/25/18 at 22:00 Glucose (Glutose) 22.5 gm Q15M PRN PO DECREASED GLUCOSE; Start 09/25/18 at 22:00 Dextrose (D50w Syringe) 25 ml Q15M PRN IV DECREASED GLUCOSE Last administered on 09/30/18at 01:04; Admin Dose 25 ML; Start 09/25/18 at 22:00 Dextrose (D50w Syringe) 50 ml Q15M PRN IV DECREASED GLUCOSE; Start 09/25/18 at 22:00 Glucagon (Glucagen) 1 mg Q15M PRN IM DECREASED GLUCOSE; Start 09/25/18 at 22:00 Glucose (Glutose) 15 gm Q15M PRN BUCCAL DECREASED GLUCOSE; Start 09/25/18 at 22:00 Methadone HCl (Methadone Liq) 2 mg Q4 SL Last administered on 10/09/18at 08:44; Admin Dose 2 MG; Start 09/28/18 at 09:30 IV Flush (NS 10 ml) 10 ml PRN PRN IV IV PROTOCOL; Start 09/30/18 at 19:30 Insulin Aspart (Novolog Insulin Pen) NOVOLOG *MILD* ALGORITHM WITH MEALS BEDTIME SC Last administered on 10/03/18at 13:02; Admin Dose 2 UNIT; Start 10/01/18 at 21:00 Diagnostic Test (Pha) (Accu-Chek) 1 ea Q4 XX Last administered on 10/09/18at 09:01; Admin Dose 1 EA; Start 10/03/18 at 13:00 Vancomycin HCl (Vanco Iv Per Pharmacy) VANCOMYCIN PER PHARMACY PER PROTOCOL XX ; Start 10/03/18 at 13:30 Fluconazole/ Sodium Chloride 50 ml @ 50 mls/hr Q24H IVPB Last administered on 10/08/18at 13:45; Admin Dose 50 MLS/HR; Start 10/03/18 at 13:30 Enoxaparin Sodium (Lovenox) 45 mg Q12 SC Last administered on 10/09/18at 08:55; Admin Dose 45 MG; Start 10/08/18 at 21:00 Vancomycin/Sodium Chloride 250 ml @ 125 mls/hr Q12H IVPB Last administered on 10/09/18at 02:29; Admin Dose 125 MLS/HR; Start 10/09/18 at 02:[address] MD Oct 09, 2018 12:23
[2018-10-09] MEDS: ONDANSETRON 4 MG INJ IV PRN (12:45)
--- NOTE | 2018-10-09 12:52 | PN ---
Date/Time of Note Date/Time of Note DATE: 10/09/18 TIME: 12:49 Assessment/Plan Lines/Catheters IV Catheter Type (from Nrsg): PICC Line Cline in Place (from Nrsg): Yes Assessment/Plan Chief Complaint/Hosp Course 1. Perforated terminal ileum with multiple abscesses, patient and son finally agreeable to surgery yesterday s/p lap > open ileocolectomy and drainage of abscesses (10/03).; With likely paralytic ileus; now with + bowel function -continue on full liquids as pt still with some abdominal pain/nausea, if worsens can downgrade diet to clears -ambulate > PT -abx per ID -supportive -fluids -drain care 2. S/p: Sepsis, with persistent bandemia (improved) -as above 3. NSTEMI with Persistent tachycardia: -Consider cardiology consult -medical/cardiac optimization 4. Acute renal insufficiency improved judicious fluid management -avoid nephrotoxic agents 5. Elevated transaminases, history of hep C -Monitor 6. Chronic methadone use: -pain mgt 7. Anemia status post PRBC transfusion, downtrending -monitor 8. Respiratory distress currently on high flow oxygen -Per pulmonary -Oxygen supplementation as needed -Pulmonary toilet 9. Electrolyte imbalance: -Optimize electrolytes> per medical team Thank you. Patient seen and examined in collaboration with Dr. Naveed Schumacher. Subjective 24 Hr Interval Summary Some abdominal discomfort. Min nausea. No fevers, chills, sob, congested cough, cp, palpitations, savage, dizziness, n/v/d/dysuria. + bowel function. Exam/Review of Systems Vital Signs Vitals Vital Signs Date Temp Pulse Resp B/P (MAP) Pulse Ox O2 O2 Flow FiO2 Time Delivery Rate 10/09/18 15 100 Nasal 3.0 12:13 Cannula 10/09/18 98.4 108 105/56 11:05 (72) 10/07/18 30 12:38 Intake and Output 10/08/18 10/08/18 10/09/18 1515:00 23:00 07:00 IntakeIntake Total 572 ml 170 ml 50 ml OutputOutput Total 125 ml 2400 ml 2340 ml BalanceBalance 447 ml -2230 ml -2290 ml Exam Free Text/Dictation Constitutional: alert, oriented, nad Psych: nl mood/affect; No anxiety Head: normocephalic, lacerations Eyes: nl conjunctiva, EOMI, PERRL; No icteric ENMT: nl external ears & nose, mucosa pink and moist Neck: supple, non-tender, jvd Respiratory: normal air movement; high flow No congested cough, No labored breathing Cardiovascular: regular rate and rhythm, No edema Gastrointestinal: soft, distended (min), min tender, octaviano serosang; No rebound, guarding, rigidity, midabdominal staple line- clean Musculoskeletal: nl extremities to inspection; No nl gait and stance, No joint tenderness Extremities: normal pulses Results Result Diagram: 10/09/18 1022 10/09/18 1022 RAFAEL EMERY NP Oct 09, 2018 12:52
[2018-10-09] MEDS: FLUCONAZOLE 100 MG/50 ML (PMX) 50 ML IVPB SCH (13:03)
[2018-10-09 15:05] VITALS: BP 128/57; PULSE 105; RESP 18
[2018-10-09 19:05] VITALS: BP 124/56; PULSE 106; RESP 19
[2018-10-09] MEDS: GLUCOSE GEL 15 GRAM TUBE PO PRN (22:14)
[2018-10-09] MEDS: DEXTROSE 50% 50 ML SYRINGE IV PRN (22:51)
[2018-10-10] VITALS: BP 112/68; PULSE 104; RESP 18
[2018-10-10] MEDS: METHADONE (1 MG/ML 5 ML PO UD SYG) SL SCH ×6 (00:48→20:56)
[2018-10-10] MEDS: ACCU-CHEK XX SCH ×6 (00:48→21:29)
[2018-10-10] MEDS: LEVALBUTEROL (NEB) 0.63 MG/3 ML AMP HHN SCH ×6 (01:00→21:00)
[2018-10-10] MEDS: VANCOMYCIN 750 MG (PMX) 250 ML IVPB SCH ×2 (02:43→14:54)
[2018-10-10] MEDS: HYDROmorphONE 0.5 MG/0.5 ML SYG IV PRN ×3 (02:43→14:49)
[2018-10-10] MEDS: MEROPENEM 1 GM/50ML(PMX) 50 ML IVPB SCH ×3 (02:43→17:03)
[2018-10-10 04:00] VITALS: BP 110/59; PULSE 98; RESP 18
[2018-10-10] MEDS: PANTOPRAZOLE 40 MG INJ IV SCH ×2 (05:50→17:03)
[2018-10-10] MEDS: GLUCOSE GEL 15 GRAM TUBE PO PRN (06:27)
[2018-10-10 07:15] VITALS: BP 114/56; PULSE 97; RESP 16
[2018-10-10] MEDS: MULTIVITAMINS THERAPEUTIC TAB PO SCH (07:57)
[2018-10-10] MEDS: COLLAGENASE 5 GM (UD JAR) TOP SCH (07:57)
[2018-10-10] MEDS ORDERED: MAGNESIUM SULFATE 2 GM/50 ML 50 ML IVPB ONE (08:00)
[2018-10-10] MEDS: FLUTICASONE/VILANTEROL 200-25 INH DEVICE INH SCH (08:04)
[2018-10-10] MEDS: BALSAM PERU/CASTOR OIL 60 GM TUBE TOP SCH ×2 (08:06→20:57)
[2018-10-10] MEDS: INSULIN ASPART [NOVOLOG] 3 ML PEN SC SCH ×4 (08:54→21:00)
[2018-10-10] MEDS: ENOXAPARIN 100 MG/ML SYG SC SCH ×2 (08:55→21:29)
--- NOTE | 2018-10-10 09:10 | PN ---
DATE: 10/10/2018 SUBJECTIVE: The patient is stable, no events overnight. No fever, chills, nausea, vomiting. OBJECTIVE: VITAL SIGNS: Blood pressure is 114/56, respiration is 16, pulse 97, temperature 98.0. HEENT: Head is normocephalic. NECK: Supple. HEART: Regular rate. LUNGS: Show diminished breath sounds at the base. ABDOMEN: Soft, nontender to palpation without rebound or guarding. EXTREMITIES: Negative for clubbing, cyanosis, no edema. DERMATOLOGIC: No rashes. MUSCULOSKELETAL: No joint effusion. NEUROLOGIC: No change in exam. LABORATORY DATA: Has been reviewed. IMAGING STUDIES: Imaging studies have been reviewed. ASSESSMENT AND PLAN: 1. Nonoliguric acute kidney injury. Etiology is secondary to hemodynamics. Renal function is impro tay. Continue to monitor. 2. Hyponatremia, etiology is likely secondary to an SIADH. Continue to monitor. Check urine sodium , urine osmolarity. 3. Hypomagnesemia. Monitor and replete. 4. Hypokalemia. Continue to monitor and replete as needed. 5. Anemia. Monitor H and H levels. 6. Mineral bone disorder. Continue to monitor calcium and phosphorus levels. 7. Perforated terminal ileum. The patient is status post ileocolectomy with drainage of abscess. C ontinue to monitor. Follow up with general surgery. 8. Sepsis. Status post shock. Continue current antibiotic regimen. 9. Acute hypoxic respiratory failure secondary to COPD, continue oxygen, nebulizers, followup w ith pulmonary. 10. Nutrition. The patient is on clear liquid diet. Continue to monitor. Advance as tolerated. Dictated By: RICHARD ORTIZ DO NR/NTS Conf#: [id number] DID#: [id number] CC: PEDRITO MUHAMMAD MD; STU ORTEZ; GERALDO VARGAS MD;*End*
--- NOTE | 2018-10-10 09:33 | PN ---
Date/Time of Note Date/Time of Note DATE: 10/10/18 TIME: 09:30 Assessment/Plan Lines/Catheters IV Catheter Type (from Nrs): PICC Line Cline in Place (from Nrs): Yes Assessment/Plan Chief Complaint/Hosp Course 1. Perforated terminal ileum with multiple abscesses, patient and son finally agreeable to surgery yesterday s/p lap > open ileocolectomy and drainage of abscesses (10/03).; With likely paralytic ileus; now with + bowel function -diet as tolerated -ambulate > PT -abx per ID -supportive -fluids -drain care 2. Sepsis, with persistent bandemia (improved) -as above 3. NSTEMI with Persistent tachycardia (improving HR). -Consider cardiology consult -medical/cardiac optimization 4. Acute renal insufficiency improved judicious fluid management -avoid nephrotoxic agents 5. Elevated transaminases, history of hep C -Monitor 6. Chronic methadone use: -pain mgt 7. Anemia status post PRBC transfusion, downtrending -monitor 8. Respiratory distress currently on high flow oxygen -Per pulmonary -Oxygen supplementation as needed -Pulmonary toilet 9. Electrolyte imbalance: -Optimize electrolytes> per medical team Thank you Subjective 24 Hr Interval Summary Some abdominal discomfort. Min nausea. No fevers, chills, sob, congested cough, cp, palpitations, savage, dizziness, nausea, vomiting, dysuria. Bowel function. Labs noted. Exam/Review of Systems Vital Signs Vitals Vital Signs Date Temp Pulse Resp B/P (MAP) Pulse Ox O2 O2 Flow FiO2 Time Delivery Rate 10/10/18 98.0 97 16 114/56 90 07:15 (75) 10/10/18 3.0 04:30 10/09/18 Nasal 20:00 Cannula 10/07/18 30 12:38 Intake and Output 10/09/18 10/09/18 10/10/18 1515:00 23:00 07:00 IntakeIntake Total 270 ml 250 ml 50 ml OutputOutput Total 120 ml 155 ml 90 ml BalanceBalance 150 ml 95 ml -40 ml Exam Free Text/Dictation Constitutional: alert, oriented, nad Psych: nl mood/affect; No anxiety Head: normocephalic, lacerations Eyes: nl conjunctiva, EOMI, PERRL; No icteric ENMT: nl external ears & nose, mucosa pink and moist Neck: supple, non-tender, jvd Respiratory: normal air movement; high flow No congested cough, No labored breathing Cardiovascular: regular rate and rhythm, No edema Gastrointestinal: soft, distended (min), min tender, octaviano serosang; No rebound, guarding, rigidity, midabdominal staple line- clean Musculoskeletal: nl extremities to inspection; No nl gait and stance, No joint tenderness Extremities: normal pulses Results Result Diagram: 10/10/18 0649 10/10/18 0649 JESSIKA OREILLY MD Oct 10, 2018 09:33
--- NOTE | 2018-10-10 10:34 | CONS ---
Consultation Date/Type/Reason Admit Date/Time Sep 15, 2018 at 03:32 Initial Consult Date 09/15/18 Type of Consult Pulmonary Patient is complaining of diarrhea as well as significant left lower quadrant abdominal pain. Denies any fever, chills, any vomiting. Shortness of breath has resolved. General exam; elderly female, laying in bed. H EENT exam; supple no JVD. No lymphadenopathy. Midline trachea. No thyromegaly. Pharynx is clear. Patient is edentulous. Chest exam; diminished but clear breath sounds. S1-S2 audible, no murmurs. Regular rhythm. Abdomen exam; soft, there is left lower quadrant tenderness , bowel sounds audible. Extremity exam; no peripheral edema. LEATHER FINISHER exam; patient is awake alert exhibiting no focal deficit. Assessment and recommendations; 1. Patient admitted with COPD exacerbation with interval improvement. 2. Significant spike and leukocytosis with abdominal pain as well as diarrhea. Add Flagyl 5 mg IV every [address] of abdomen pelvis with contrast. Obtain surgical consult. Requesting Provider: LEOBARDO DC Date/Time of Note DATE: 10/10/18 TIME: 10:32 24 HR Interval Summary Free Text/Dictation Patient's condition is markedly improved. Off TPN and able to eat. Denies any shortness breath, coughing, abdominal pain, nausea vomiting. General exam; elderly lady, laying comfortably in bed. Awake and alert. Currently in no distress. On 2 L nasal cannula. H ENT exam; supple neck, no JVD. No lymphadenopathy. Midline trachea. No thyromegaly. Patient has dentures in place. Chest exam; clear to auscultation. S1-S2 audible, no murmurs. Regular rhythm. Abdomen exam; soft, midline dressing in place. Abdominal drain in place. Abdomen is nontender and nondistended. Bowel sounds audible. Extremity exam; no peripheral edema. LEATHER FINISHER exam; no focal deficit. Assessment and recommendations; 1. Patient initially admitted for acute bronchitis then developed acute abdomen due to bowel perforation and he refused surgery for a whole week before finally agreeing to it. Status post laparotomy. Patient's clinical status is markedly improved. 2. Pneumonia involving left lung with significant interval clinical and radiological improvement. Continue current supportive care. Patient responding well to current treatment regimen. Consider discharge to rehab. Exam/Review of Systems Exam Vitals Vital Signs Date Temp Pulse Resp B/P (MAP) Pulse Ox O2 O2 Flow FiO2 Time Delivery Rate 10/10/18 3.0 09:57 10/10/18 98 20 100 Nasal 09:57 Cannula 10/10/18 98.0 114/56 07:15 (75) 10/07/18 30 12:38 Intake and Output 10/09/18 10/09/18 10/10/18 1515:00 23:00 07:00 IntakeIntake Total 270 ml 250 ml 50 ml OutputOutput Total 120 ml 155 ml 90 ml BalanceBalance 150 ml 95 ml -40 ml Results Result Diagram: 10/10/18 0649 10/10/18 0649 Results 24hrs Laboratory Tests Test 10/09/18 12:36 10/09/18 17:35 10/09/18 21:59 10/09/18 22:39 Bedside Glucose 97 77 56 L 59 L Test 10/09/18 22:58 10/09/18 23:14 10/10/18 00:46 10/10/18 05:56 Bedside Glucose 105 105 85 Urine Osmolality 245 L Urine Random Sodium 93 H Test 10/10/18 06:28 10/10/18 06:49 10/10/18 06:54 10/10/18 07:19 Bedside Glucose 56 L 144 145 White Blood Count 8.9 Red Blood Count 2.91 L Hemoglobin 8.5 L Hematocrit 27.6 L Mean Corpuscular 94.8 Volume Mean Corpuscular 29.2 Hemoglobin Mean Corpuscular 30.8 L Hemoglobin Concent Red Cell 15.8 H Distribution Width Platelet Count 217 Mean Platelet Volume 12.0 H Immature 0.800 H Granulocytes % Neutrophils % 65.6 Lymphocytes % 17.7 Monocytes % 6.4 Eosinophils % 8.9 H Basophils % 0.6 Nucleated Red Blood 0.0 Cells % Immature 0.070 H Granulocytes # Neutrophils # 5.8 Lymphocytes # 1.6 Monocytes # 0.6 Eosinophils # 0.8 H Basophils # 0.1 Nucleated Red Blood 0.0 Cells # Sodium Level 133 L Potassium Level 3.8 Chloride Level 95 L Carbon Dioxide Level 39 H Anion Gap -1 L Blood Urea Nitrogen 6 L Creatinine 0.41 L Est Glomerular > 60 Filtrat Rate mL/min Glucose Level 78 # Calcium Level 7.1 L Phosphorus Level 2.6 Magnesium Level 1.5 L Test 10/10/18 08:03 Bedside Glucose 143 Medications Medication Current Medications IV Flush (NS 3 ml) 3 ml PER PROTOCOL IV ; Start 09/15/18 at 07:30 Ondansetron HCl (Zofran Inj) 4 mg Q6H PRN IV NAUSEA/VOMITING Last administered on 10/09/18 12:45; Admin Dose 4 MG; Start 09/15/18 at 07:30 Acetaminophen (Tylenol Tab) 650 mg Q6H PRN PO .PAIN 1-3 OR TEMP Last administered on 09/16/18 21:56; Admin Dose 650 MG; Start 09/15/18 at 07:30 Baclofen (Lioresal) 10 mg BID PO Last administered on 09/23/18 09:45; Admin Dose 10 MG; Start 09/15/18 at 09:00; Status Hold Buspirone HCl (Buspar) 10 mg BID PO Last administered on 09/23/18 11:44; Admin Dose 10 MG; Start 09/15/18 at 09:00; Status Hold Calcium Carbonate (Oyster Shell Calcium) 1.25 gm BID PO Last administered on 09/23/18 11:44; Admin Dose 1.25 GM; Start 09/15/18 at 09:00; Status Hold Clonazepam (Klonopin) 0.5 mg DAILY PRN PO ANXIETY Last administered on 09/23/18 02:04; Admin Dose 0.5 MG; Start 09/15/18 at 07:30; Status Hold Docusate Sodium (Colace) 100 mg BID PO Last administered on 09/23/18 09:43; Admin Dose 100 MG; Start 09/15/18 at 09:00; Status Hold Rifaximin (Xifaxan) 550 mg BID PO Last administered on 09/22/18 21:42; Admin Dose 550 MG; Start 09/15/18 at 09:00; Status Hold Sertraline HCl (Zoloft) 100 mg DAILY PO ; Start 09/15/18 at 09:00; Status Hold Fluticasone/ Vilanterol (Breo Ellipta 200-25 Mcg Inh) 1 inh DAILY INH Last administered on 10/10/18 08:04; Admin Dose 1 INH; Start 09/15/18 at 09:00 Albuterol/ Ipratropium (Duoneb) 3 ml Q3H RESP THERAPY PRN HHN WHEEZING AND SOB Last administered on 09/21/18 21:08; Admin Dose 3 ML; Start 09/15/18 at 08:00 Levalbuterol (Xopenex Neb) 0.63 mg Q4H RESP THERAPY HHN Last administered on 10/10/18 09:57; Admin Dose 0.63 MG; Start 09/15/18 at 17:00 Levalbuterol (Xopenex Neb) 0.63 mg Q2H RESP THERAPY PRN HHN WHEEZING AND SOB; Start 09/15/18 at 14:00 Collagenase (Santyl) 1 applic DAILY TOP Last administered on 10/10/18 07:57; Admin Dose 1 APPLIC; Start 09/16/18 at 15:00 Multivitamins Therapeutic (Theragran) 1 tab DAILY PO Last administered on 10/10/18 07:57; Admin Dose 1 TAB; Start 09/19/18 at 12:00 Ascorbic Acid (Vitamin C) 500 mg DAILY PO Last administered on 09/23/18 09:45; Admin Dose 500 MG; Start 09/19/18 at 12:00; Status Hold Zinc Sulfate (Zinc Sulfate) 220 mg DAILY PO Last administered on 09/22/18 08:50; Admin Dose 220 MG; Start 09/19/18 at 12:00; Status Hold Thiamine HCl (Vitamin B1) 50 mg DAILY PO Last administered on 09/23/18 09:45; Admin Dose 50 MG; Start 09/19/18 at 12:00; Status Hold Simethicone (Mylicon) 80 mg Q6H PRN PO DISTENSION/GAS/BLOATING Last administered on 10/08/18 12:18; Admin Dose 80 MG; Start 09/20/18 at 06:30 Diltiazem HCl (Cardizem Cd) 120 mg DAILY PO Last administered on 09/23/18 11:41; Admin Dose 120 MG; Start 09/20/18 at 09:00; Status Hold Zolpidem Tartrate (Ambien) 5 mg HS PRN PO INSOMNIA Last administered on 09/24/18 01:16; Admin Dose 5 MG; Start 09/21/18 at 02:00; Status Hold Phenol (Cepastat Lozenge) 1 lozenge Q1H PRN MT SORE THROAT Last administered on 09/22/18 03:32; Admin Dose 1 LOZENGE; Start 09/22/18 at 01:00 Levofloxacin (Levaquin) 500 mg DAILY@06 PO Last administered on 09/23/18 07:21; Admin Dose 500 MG; Start 09/23/18 at 06:00; Status Hold Metronidazole 100 ml @ 100 mls/hr Q8 IVPB Last administered on 09/23/18 22:03; Admin Dose 100 MLS/HR; Start 09/23/18 at 14:00; Status Hold Meropenem/Sodium Chloride 50 ml @ 100 mls/hr Q8H IVPB Last administered on 10/10/18 02:43; Admin Dose 100 MLS/HR; Start 09/24/18 at 02:30 Hydromorphone HCl (Dilaudid) 0.5 mg Q4H PRN IV SEVERE PAIN LEVEL 7-10 Last administered on 10/10/18 02:43; Admin Dose 0.5 MG; Start 09/24/18 at 03:00 Lorazepam (Ativan) 0.5 mg Q6H PRN IV ANXIETY Last administered on 10/09/18 00:58; Admin Dose 0.5 MG; Start 09/24/18 at 03:00 Pantoprazole (Protonix Iv) 40 mg BID@06,18 IV Last administered on 10/10/18 05:50; Admin Dose 40 MG; Start 09/24/18 at 18:00 Miscellaneous Information 1 ea NOTE XX ; Start 09/25/18 at 22:00 Glucose (Glutose) 15 gm Q15M PRN PO DECREASED GLUCOSE Last administered on 10/10/18 06:27; Admin Dose 15 GM; Start 09/25/18 at 22:00 Glucose (Glutose) 22.5 gm Q15M PRN PO DECREASED GLUCOSE; Start 09/25/18 at 22:00 Dextrose (D50w Syringe) 25 ml Q15M PRN IV DECREASED GLUCOSE Last administered on 10/09/18 22:51; Admin Dose 25 ML; Start 09/25/18 at 22:00 Dextrose (D50w Syringe) 50 ml Q15M PRN IV DECREASED GLUCOSE Last administered on 10/10/18 06:50; Admin Dose 50 ML; Start 09/25/18 at 22:00 Glucagon (Glucagen) 1 mg Q15M PRN IM DECREASED GLUCOSE; Start 09/25/18 at 22:00 Glucose (Glutose) 15 gm Q15M PRN BUCCAL DECREASED GLUCOSE; Start 09/25/18 at 22:00 Methadone HCl (Methadone Liq) 2 mg Q4 SL Last administered on 10/10/18 08:06; Admin Dose 2 MG; Start 09/28/18 at 09:30 IV Flush (NS 10 ml) 10 ml PRN PRN IV IV PROTOCOL; Start 09/30/18 at 19:30 Insulin Aspart (Novolog Insulin Pen) NOVOLOG *MILD* ALGORITHM WITH MEALS BEDTIME SC Last administered on 10/10/18 08:54; Admin Dose 1 UNIT; Start 10/01/18 at 21:00 Diagnostic Test (Pha) (Accu-Chek) 1 ea Q4 XX Last administered on 10/10/18 08:06; Admin Dose 1 EA; Start 10/03/18 at 13:00 Vancomycin HCl (Vanco Iv Per Pharmacy) VANCOMYCIN PER PHARMACY PER PROTOCOL XX ; Start 10/03/18 at 13:30 Fluconazole/ Sodium Chloride 50 ml @ 50 mls/hr Q24H IVPB Last administered on 10/09/18 13:03; Admin Dose 50 MLS/HR; Start 10/03/18 at 13:30 Enoxaparin Sodium (Lovenox) 45 mg Q12 SC Last administered on 10/10/18 08:55; Admin Dose 45 MG; Start 10/08/18 at 21:00 Vancomycin/Sodium Chloride 250 ml @ 125 mls/hr Q12H IVPB Last administered on 10/10/18at 02:43; Admin Dose 125 MLS/HR; Start 10/09/18 at 02:00 JOSÉ MIGUEL THOMSON Oct 10, 2018 10:34
--- NOTE | 2018-10-10 10:41 | PN ---
Date/Time of Note Date/Time of Note DATE: 10/10/18 TIME: 10:37 Assessment/Plan VTE Prophylaxis Risk score (from Ns)>0 risk: 15 SCD applied (from Ns): No SCD contraindicated: other Pharmacological prophylaxis: LMWH Lines/Catheters IV Catheter Type (from Nrsg): PICC Line Central line still needed: Yes Urinary Cath still in place: No Assessment/Plan Hospital Course S: Patient has improved respiratory status on 2 L nasal cannula with good s aturations. Had some vomiting symptoms this morning. Seen by renal team this morning. Tolerating pured diet. O: VS- see below PE: Gen: Lying in bed, more alert, on oxygen supplementation via nasal cannula Head: Atraumatic Eyes: Normal Conjunctiva ENT: Normal External Ears, Nose and Mouth. Neck: Full range of motion. No meningismus. Resp: Clear to auscultation bilaterally Cardio: Regular rate and rhythm, no murmurs Abd: Soft, non tender, non distended. Normal bowel sounds Ext: No bilateral lower extremity edema Neuro: No focal deficits Assessment/Plan: 68-year-old woman with history of COPD, PE in May 2018, CKD, admitted for COPD exacerbation and found to have ileum perforation with abdominal abscess. #Small bowel perforation -found also with abdominal abscess- Weeks of abdominal distension, tenderness, bloating- CT on 09/23 first showed pneumoperitoneum, take n to OR by Dr. Schumacher on 10/02, found to have perforated terminal ileum with abdominal abscess s/p drainage - ID following, for now continue current antibiotics meropenem and diflucan per their recommendations for 1-2 more days - Advance to full liquids per surgery recommendations, monitor labs in the morning #Anemia- Likely due to abdominal perforation. Received PRBC transfusion earlier this admission. Hemoglobin presently stable. -Monitor, transfuse to Hgb>7 or for symptomatic anemia # Hypoxic and hypercapnic respiratory failure: Resolved- PE in May 2018, on lovenox, [facility] Had hypoxemic episode on 10/05, likely due to benzodiazepines- Now on nasal cannula. Goal sat 88-92%. -Monitor, continue Lovenox at present dose, follow pulmonary recommendations #MRSA colonization of the nares- s/p mupirocin -Monitor for now GI: PPI DVT: lovenox Dispo: Advance diet, begin ambulating per PT recommendations, plan for SNF placement and will follow-up with case management on this. Result Diagram: 10/10/18 0649 10/10/18 0649 Results 24hrs Laboratory Tests Test 10/09/18 12:36 10/09/18 17:35 10/09/18 21:59 10/09/18 22:39 Bedside Glucose 97 77 56 L 59 L Test 10/09/18 22:58 10/09/18 23:14 10/10/18 00:46 10/10/18 05:56 Bedside Glucose 105 105 85 Urine Osmolality 245 L Urine Random Sodium 93 H Test 10/10/18 06:28 10/10/18 06:49 10/10/18 06:54 10/10/18 07:19 Bedside Glucose 56 L 144 145 White Blood Count 8.9 Red Blood Count 2.91 L Hemoglobin 8.5 L Hematocrit 27.6 L Mean Corpuscular 94.8 Volume Mean Corpuscular 29.2 Hemoglobin Mean Corpuscular 30.8 L Hemoglobin Concent Red Cell 15.8 H Distribution Width Platelet Count 217 Mean Platelet Volume 12.0 H Immature 0.800 H Granulocytes % Neutrophils % 65.6 Lymphocytes % 17.7 Monocytes % 6.4 Eosinophils % 8.9 H Basophils % 0.6 Nucleated Red Blood 0.0 Cells % Immature 0.070 H Granulocytes # Neutrophils # 5.8 Lymphocytes # 1.6 Monocytes # 0.6 Eosinophils # 0.8 H Basophils # 0.1 Nucleated Red Blood 0.0 Cells # Sodium Level 133 L Potassium Level 3.8 Chloride Level 95 L Carbon Dioxide Level 39 H Anion Gap -1 L Blood Urea Nitrogen 6 L Creatinine 0.41 L Est Glomerular > 60 Filtrat Rate mL/min Glucose Level 78 # Calcium Level 7.1 L Phosphorus Level 2.6 Magnesium Level 1.5 L Test 10/10/18 08:03 Bedside Glucose 143 Exam/Review of Systems Exam Vitals Vital Signs Date Temp Pulse Resp B/P (MAP) Pulse Ox O2 O2 Flow FiO2 Time Delivery Rate 10/10/18 3.0 09:57 10/10/18 98 20 100 Nasal 09:57 Cannula 10/10/18 98.0 114/56 07:15 (75) 10/07/18 30 12:38 Intake and Output 10/09/18 10/09/18 10/10/18 1515:00 23:00 07:00 IntakeIntake Total 270 ml 250 ml 50 ml OutputOutput Total 120 ml 155 ml 90 ml BalanceBalance 150 ml 95 ml -40 ml Results Results 24hrs Laboratory Tests Test 10/09/18 12:36 10/09/18 17:35 10/09/18 21:59 10/09/18 22:39 Bedside Glucose 97 77 56 L 59 L Test 10/09/18 22:58 10/09/18 23:14 10/10/18 00:46 10/10/18 05:56 Bedside Glucose 105 105 85 Urine Osmolality 245 L Urine Random Sodium 93 H Test 10/10/18 06:28 10/10/18 06:49 10/10/18 06:54 10/10/18 07:19 Bedside Glucose 56 L 144 145 White Blood Count 8.9 Red Blood Count 2.91 L Hemoglobin 8.5 L Hematocrit 27.6 L Mean Corpuscular 94.8 Volume Mean Corpuscular 29.2 Hemoglobin Mean Corpuscular 30.8 L Hemoglobin Concent Red Cell 15.8 H Distribution Width Platelet Count 217 Mean Platelet Volume 12.0 H Immature 0.800 H Granulocytes % Neutrophils % 65.6 Lymphocytes % 17.7 Monocytes % 6.4 Eosinophils % 8.9 H Basophils % 0.6 Nucleated Red Blood 0.0 Cells % Immature 0.070 H Granulocytes # Neutrophils # 5.8 Lymphocytes # 1.6 Monocytes # 0.6 Eosinophils # 0.8 H Basophils # 0.1 Nucleated Red Blood 0.0 Cells # Sodium Level 133 L Potassium Level 3.8 Chloride Level 95 L Carbon Dioxide Level 39 H Anion Gap -1 L Blood Urea Nitrogen 6 L Creatinine 0.41 L Est Glomerular > 60 Filtrat Rate mL/min Glucose Level 78 # Calcium Level 7.1 L Phosphorus Level 2.6 Magnesium Level 1.5 L Test 10/10/18 08:03 Bedside Glucose 143 Medications Medication Current Medications IV Flush (NS 3 ml) 3 ml PER PROTOCOL IV ; Start 09/15/18 at 07:30 Ondansetron HCl (Zofran Inj) 4 mg Q6H PRN IV NAUSEA/VOMITING Last administered on 10/09/18at 12:45; Admin Dose 4 MG; Start 09/15/18 at 07:30 Acetaminophen (Tylenol Tab) 650 mg Q6H PRN PO .PAIN 1-3 OR TEMP Last administered on 09/16/18 21:56; Admin Dose 650 MG; Start 09/15/18 at 07:30 Baclofen (Lioresal) 10 mg BID PO Last administered on 09/23/18 09:45; Admin Dose 10 MG; Start 09/15/18 at 09:00; Status Hold Buspirone HCl (Buspar) 10 mg BID PO Last administered on 09/23/18 11:44; Admin Dose 10 MG; Start 09/15/18 at 09:00; Status Hold Calcium Carbonate (Oyster Shell Calcium) 1.25 gm BID PO Last administered on 09/23/18 11:44; Admin Dose 1.25 GM; Start 09/15/18 at 09:00; Status Hold Clonazepam (Klonopin) 0.5 mg DAILY PRN PO ANXIETY Last administered on 09/23/18 02:04; Admin Dose 0.5 MG; Start 09/15/18 at 07:30; Status Hold Docusate Sodium (Colace) 100 mg BID PO Last administered on 09/23/18 09:43; Admin Dose 100 MG; Start 09/15/18 at 09:00; Status Hold Rifaximin (Xifaxan) 550 mg BID PO Last administered on 09/22/18 21:42; Admin Dose 550 MG; Start 09/15/18 at 09:00; Status Hold Sertraline HCl (Zoloft) 100 mg DAILY PO ; Start 09/15/18 at 09:00; Status Hold Fluticasone/ Vilanterol (Breo Ellipta 200-25 Mcg Inh) 1 inh DAILY INH Last administered on 10/10/18 08:04; Admin Dose 1 INH; Start 09/15/18 at 09:00 Albuterol/ Ipratropium (Duoneb) 3 ml Q3H RESP THERAPY PRN HHN WHEEZING AND SOB Last administered on 09/21/18 21:08; Admin Dose 3 ML; Start 09/15/18 at 08:00 Levalbuterol (Xopenex Neb) 0.63 mg Q4H RESP THERAPY HHN Last administered on 10/10/18 09:57; Admin Dose 0.63 MG; Start 09/15/18 at 17:00 Levalbuterol (Xopenex Neb) 0.63 mg Q2H RESP THERAPY PRN HHN WHEEZING AND SOB; Start 09/15/18 at 14:00 Collagenase (Santyl) 1 applic DAILY TOP Last administered on 10/10/18 07:57; Admin Dose 1 APPLIC; Start 09/16/18 at 15:00 Multivitamins Therapeutic (Theragran) 1 tab DAILY PO Last administered on 10/10/18 07:57; Admin Dose 1 TAB; Start 09/19/18 at 12:00 Ascorbic Acid (Vitamin C) 500 mg DAILY PO Last administered on 09/23/18 09:45; Admin Dose 500 MG; Start 09/19/18 at 12:00; Status Hold Zinc Sulfate (Zinc Sulfate) 220 mg DAILY PO Last administered on 09/22/18 08:50; Admin Dose 220 MG; Start 09/19/18 at 12:00; Status Hold Thiamine HCl (Vitamin B1) 50 mg DAILY PO Last administered on 09/23/18 09:45; Admin Dose 50 MG; Start 09/19/18 at 12:00; Status Hold Simethicone (Mylicon) 80 mg Q6H PRN PO DISTENSION/GAS/BLOATING Last administered on 10/08/18 12:18; Admin Dose 80 MG; Start 09/20/18 at 06:30 Diltiazem HCl (Cardizem Cd) 120 mg DAILY PO Last administered on 09/23/18 11:41; Admin Dose 120 MG; Start 09/20/18 at 09:00; Status Hold Zolpidem Tartrate (Ambien) 5 mg HS PRN PO INSOMNIA Last administered on 09/24/18 01:16; Admin Dose 5 MG; Start 09/21/18 at 02:00; Status Hold Phenol (Cepastat Lozenge) 1 lozenge Q1H PRN MT SORE THROAT Last administered on 09/22/18 03:32; Admin Dose 1 LOZENGE; Start 09/22/18 at 01:00 Levofloxacin (Levaquin) 500 mg DAILY@06 PO Last administered on 09/23/18 07:21; Admin Dose 500 MG; Start 09/23/18 at 06:00; Status Hold Metronidazole 100 ml @ 100 mls/hr Q8 IVPB Last administered on 09/23/18 22:03; Admin Dose 100 MLS/HR; Start 09/23/18 at 14:00; Status Hold Meropenem/Sodium Chloride 50 ml @ 100 mls/hr Q8H IVPB Last administered on 10/10/18at 02:43; Admin Dose 100 MLS/HR; Start 09/24/18 at 02:30 Hydromorphone HCl (Dilaudid) 0.5 mg Q4H PRN IV SEVERE PAIN LEVEL 7-10 Last administered on 10/10/18 02:43; Admin Dose 0.5 MG; Start 09/24/18 at 03:00 Lorazepam (Ativan) 0.5 mg Q6H PRN IV ANXIETY Last administered on 10/09/18at 00:58; Admin Dose 0.5 MG; Start 09/24/18 at 03:00 Pantoprazole (Protonix Iv) 40 mg BID@06,18 IV Last administered on 10/10/18 05:50; Admin Dose 40 MG; Start 09/24/18 at 18:00 Miscellaneous Information 1 ea NOTE XX ; Start 09/25/18 at 22:00 Glucose (Glutose) 15 gm Q15M PRN PO DECREASED GLUCOSE Last administered on at 06:27; Admin Dose 15 GM; Start 09/25/18 at 22:00 Glucose (Glutose) 22.5 gm Q15M PRN PO DECREASED GLUCOSE; Start 09/25/18 at 22:00 Dextrose (D50w Syringe) 25 ml Q15M PRN IV DECREASED GLUCOSE Last administered on 10/09/18at 22:51; Admin Dose 25 ML; Start 09/25/18 at 22:00 Dextrose (D50w Syringe) 50 ml Q15M PRN IV DECREASED GLUCOSE Last administered on 10/10/18at 06:50; Admin Dose 50 ML; Start 09/25/18 at 22:00 Glucagon (Glucagen) 1 mg Q15M PRN IM DECREASED GLUCOSE; Start 09/25/18 at 22:00 Glucose (Glutose) 15 gm Q15M PRN BUCCAL DECREASED GLUCOSE; Start 09/25/18 at 22:00 Methadone HCl (Methadone Liq) 2 mg Q4 SL Last administered on 10/10/18 08:06; Admin Dose 2 MG; Start 09/28/18 at 09:30 IV Flush (NS 10 ml) 10 ml PRN PRN IV IV PROTOCOL; Start 09/30/18 at 19:30 Insulin Aspart (Novolog Insulin Pen) NOVOLOG *MILD* ALGORITHM WITH MEALS BEDTIME SC Last administered on 10/10/18 08:54; Admin Dose 1 UNIT; Start 10/01/18 at 21:00 Diagnostic Test (Pha) (Accu-Chek) 1 ea Q4 XX Last administered on 10/10/18at 08:06; Admin Dose 1 EA; Start 10/03/18 at 13:00 Vancomycin HCl (Vanco Iv Per Pharmacy) VANCOMYCIN PER PHARMACY PER PROTOCOL XX ; Start 10/03/18 at 13:30 Fluconazole/ Sodium Chloride 50 ml @ 50 mls/hr Q24H IVPB Last administered on 10/09/18at 13:03; Admin Dose 50 MLS/HR; Start 10/03/18 at 13:30 Enoxaparin Sodium (Lovenox) 45 mg Q12 SC Last administered on 10/10/18at 08:55; Admin Dose 45 MG; Start 10/08/18 at 21:00 Vancomycin/Sodium Chloride 250 ml @ 125 mls/hr Q12H IVPB Last administered on 10/10/18at 02:43; Admin Dose 125 MLS/HR; Start 10/09/18 at 02:00 STU ORTEZ Oct 10, 2018 10:41
[2018-10-10 11:32] VITALS: BP 115/61; PULSE 98; RESP 16
--- NOTE | 2018-10-10 12:34 | CONS ---
Assessment/Plan Assessment/Plan Hospital Course (Demo Recall) POD#8 No acute events, looks comfortable, no fevers Antimicrobials: Meropenem, Vanco, Diflucan Indwelling: Left-sided RAFAL, PICC line, Cline catheter HEENT: Within normal limits. NECK: Supple. CHEST: Decreased breath sounds at the bases. HEART: S1 S2 ABDOMEN: Distended, bowel sounds hypoactive, mid abdominal dressing intact EXTREMITIES: Without cyanosis, clubbing, or edema. Assessment: 1. Acute hypoxemic respiratory failure 2. Sepsis s/p shock 3. Perforated bowel with multiple abscess and small bowel obstruction, status post laparotomy/open exploration 10/02/2018 4. HCAP 5. Non-ST elevation MD 6. COPD Plan: Stable, continue abx for couple more days, repeat cxr in am Consultation Date/Type/Reason Admit Date/Time Sep 15, 2018 at 03:32 Initial Consult Date 09/24/18 Type of Consult id Requesting Provider: LEOBARDO DC Date/Time of Note DATE: 10/10/18 TIME: 12:33 Exam/Review of Systems Exam Vitals Vital Signs Date Temp Pulse Resp B/P (MAP) Pulse Ox O2 O2 Flow FiO2 Time Delivery Rate 10/10/18 98.6 98 16 115/61 92 11:32 (79) 10/10/18 3.0 09:57 10/10/18 Nasal 09:57 Cannula 10/07/18 30 12:38 Intake and Output 10/09/18 10/09/18 10/10/18 1515:00 23:00 07:00 IntakeIntake Total 270 ml 250 ml 50 ml OutputOutput Total 120 ml 155 ml 90 ml BalanceBalance 150 ml 95 ml -40 ml Results Result Diagram: 10/10/18 0649 10/10/18 0649 Results 24hrs Laboratory Tests Test 10/09/18 12:36 10/09/18 17:35 10/09/18 21:59 10/09/18 22:39 Bedside Glucose 97 77 56 L 59 L Test 10/09/18 22:58 10/09/18 23:14 10/10/18 00:46 10/10/18 05:56 Bedside Glucose 105 105 85 Urine Osmolality 245 L Urine Random Sodium 93 H Test 10/10/18 06:28 10/10/18 06:49 10/10/18 06:54 10/10/18 07:19 Bedside Glucose 56 L 144 145 White Blood Count 8.9 Red Blood Count 2.91 L Hemoglobin 8.5 L Hematocrit 27.6 L Mean Corpuscular 94.8 Volume Mean Corpuscular 29.2 Hemoglobin Mean Corpuscular 30.8 L Hemoglobin Concent Red Cell 15.8 H Distribution Width Platelet Count 217 Mean Platelet Volume 12.0 H Immature 0.800 H Granulocytes % Neutrophils % 65.6 Lymphocytes % 17.7 Monocytes % 6.4 Eosinophils % 8.9 H Basophils % 0.6 Nucleated Red Blood 0.0 Cells % Immature 0.070 H Granulocytes # Neutrophils # 5.8 Lymphocytes # 1.6 Monocytes # 0.6 Eosinophils # 0.8 H Basophils # 0.1 Nucleated Red Blood 0.0 Cells # Sodium Level 133 L Potassium Level 3.8 Chloride Level 95 L Carbon Dioxide Level 39 H Anion Gap -1 L Blood Urea Nitrogen 6 L Creatinine 0.41 L Est Glomerular > 60 Filtrat Rate mL/min Glucose Level 78 # Calcium Level 7.1 L Phosphorus Level 2.6 Magnesium Level 1.5 L Test 10/10/18 08:03 10/10/18 11:57 Bedside Glucose 143 84 Medications Medication Current Medications IV Flush (NS 3 ml) 3 ml PER PROTOCOL IV ; Start 09/15/18 at 07:30 Ondansetron HCl (Zofran Inj) 4 mg Q6H PRN IV NAUSEA/VOMITING Last administered on 10/09/18 12:45; Admin Dose 4 MG; Start 09/15/18 at 07:30 Acetaminophen (Tylenol Tab) 650 mg Q6H PRN PO .PAIN 1-3 OR TEMP Last administered on 09/16/18at 21:56; Admin Dose 650 MG; Start 09/15/18 at 07:30 Baclofen (Lioresal) 10 mg BID PO Last administered on 09/23/18 09:45; Admin Dose 10 MG; Start 09/15/18 at 09:00; Status Hold Buspirone HCl (Buspar) 10 mg BID PO Last administered on 09/23/18 11:44; Admin Dose 10 MG; Start 09/15/18 at 09:00; Status Hold Calcium Carbonate (Oyster Shell Calcium) 1.25 gm BID PO Last administered on 09/23/18 11:44; Admin Dose 1.25 GM; Start 09/15/18 at 09:00; Status Hold Clonazepam (Klonopin) 0.5 mg DAILY PRN PO ANXIETY Last administered on 09/23/18 02:04; Admin Dose 0.5 MG; Start 09/15/18 at 07:30; Status Hold Docusate Sodium (Colace) 100 mg BID PO Last administered on 09/23/18 09:43; Admin Dose 100 MG; Start 09/15/18 at 09:00; Status Hold Rifaximin (Xifaxan) 550 mg BID PO Last administered on 09/22/18 21:42; Admin Dose 550 MG; Start 09/15/18 at 09:00; Status Hold Sertraline HCl (Zoloft) 100 mg DAILY PO ; Start 09/15/18 at 09:00; Status Hold Fluticasone/ Vilanterol (Breo Ellipta 200-25 Mcg Inh) 1 inh DAILY INH Last administered on 10/10/18 08:04; Admin Dose 1 INH; Start 09/15/18 at 09:00 Albuterol/ Ipratropium (Duoneb) 3 ml Q3H RESP THERAPY PRN HHN WHEEZING AND SOB Last administered on 09/21/18 21:08; Admin Dose 3 ML; Start 09/15/18 at 08:00 Levalbuterol (Xopenex Neb) 0.63 mg Q4H RESP THERAPY HHN Last administered on 10/10/18 09:57; Admin Dose 0.63 MG; Start 09/15/18 at 17:00 Levalbuterol (Xopenex Neb) 0.63 mg Q2H RESP THERAPY PRN HHN WHEEZING AND SOB; Start 09/15/18 at 14:00 Collagenase (Santyl) 1 applic DAILY TOP Last administered on 10/10/18 07:57; Admin Dose 1 APPLIC; Start 09/16/18 at 15:00 Multivitamins Therapeutic (Theragran) 1 tab DAILY PO Last administered on 10/10/18 07:57; Admin Dose 1 TAB; Start 09/19/18 at 12:00 Ascorbic Acid (Vitamin C) 500 mg DAILY PO Last administered on 09/23/18 09:45; Admin Dose 500 MG; Start 09/19/18 at 12:00; Status Hold Zinc Sulfate (Zinc Sulfate) 220 mg DAILY PO Last administered on 09/22/18 08:50; Admin Dose 220 MG; Start 09/19/18 at 12:00; Status Hold Thiamine HCl (Vitamin B1) 50 mg DAILY PO Last administered on 09/23/18 09:45; Admin Dose 50 MG; Start 09/19/18 at 12:00; Status Hold Simethicone (Mylicon) 80 mg Q6H PRN PO DISTENSION/GAS/BLOATING Last administered on 10/08/18 12:18; Admin Dose 80 MG; Start 09/20/18 at 06:30 Diltiazem HCl (Cardizem Cd) 120 mg DAILY PO Last administered on 09/23/18 11: 41; Admin Dose 120 MG; Start 09/20/18 at 09:00; Status Hold Zolpidem Tartrate (Ambien) 5 mg HS PRN PO INSOMNIA Last administered on 09/24/18 01:16; Admin Dose 5 MG; Start 09/21/18 at 02:00; Status Hold Phenol (Cepastat Lozenge) 1 lozenge Q1H PRN MT SORE THROAT Last administered on 09/22/18 03:32; Admin Dose 1 LOZENGE; Start 09/22/18 at 01:00 Levofloxacin (Levaquin) 500 mg DAILY@06 PO Last administered on 09/23/18 07:21; Admin Dose 500 MG; Start 09/23/18 at 06:00; Status Hold Metronidazole 100 ml @ 100 mls/hr Q8 IVPB Last administered on 09/23/18 22:03; Admin Dose 100 MLS/HR; Start 09/23/18 at 14:00; Status Hold Meropenem/Sodium Chloride 50 ml @ 100 mls/hr Q8H IVPB Last administered on 10/10/18 10:50; Admin Dose 100 MLS/HR; Start 09/24/18 at 02:30 Hydromorphone HCl (Dilaudid) 0.5 mg Q4H PRN IV SEVERE PAIN LEVEL 7-10 Last administered on 10/10/18 10:50; Admin Dose 0.5 MG; Start 09/24/18 at 03:00 Lorazepam (Ativan) 0.5 mg Q6H PRN IV ANXIETY Last administered on 10/09/18 00:58; Admin Dose 0.5 MG; Start 09/24/18 at 03:00 Pantoprazole (Protonix Iv) 40 mg BID@06,18 IV Last administered on 10/10/18at 05:50; Admin Dose 40 MG; Start 09/24/18 at 18:00 Miscellaneous Information 1 ea NOTE XX ; Start 09/25/18 at 22:00 Glucose (Glutose) 15 gm Q15M PRN PO DECREASED GLUCOSE Last administered on 10/10/18at 06:27; Admin Dose 15 GM; Start 09/25/18 at 22:00 Glucose (Glutose) 22.5 gm Q15M PRN PO DECREASED GLUCOSE; Start 09/25/18 at 22:00 Dextrose (D50w Syringe) 25 ml Q15M PRN IV DECREASED GLUCOSE Last administered on 10/09/18at 22:51; Admin Dose 25 ML; Start 09/25/18 at 22:00 Dextrose (D50w Syringe) 50 ml Q15M PRN IV DECREASED GLUCOSE Last administered on 10/10/18at 06:50; Admin Dose 50 ML; Start 09/25/18 at 22:00 Glucagon (Glucagen) 1 mg Q15M PRN IM DECREASED GLUCOSE; Start 09/25/18 at 22:00 Glucose (Glutose) 15 gm Q15M PRN BUCCAL DECREASED GLUCOSE; Start 09/25/18 at 22:00 Methadone HCl (Methadone Liq) 2 mg Q4 SL Last administered on 10/10/18at 08:06; Admin Dose 2 MG; Start 09/28/18 at 09:30 IV Flush (NS 10 ml) 10 ml PRN PRN IV IV PROTOCOL; Start 09/30/18 at 19:30 Insulin Aspart (Novolog Insulin Pen) NOVOLOG *MILD* ALGORITHM WITH MEALS BEDTIME SC Last administered on 10/10/18at 08:54; Admin Dose 1 UNIT; Start 10/01/18 at 21:00 Diagnostic Test (Pha) (Accu-Chek) 1 ea Q4 XX Last administered on 10/10/18at 11:51; Admin Dose 1 EA; Start 10/03/18 at 13:00 Vancomycin HCl (Vanco Iv Per Pharmacy) VANCOMYCIN PER PHARMACY PER PROTOCOL XX ; Start 10/03/18 at 13:30 Fluconazole/ Sodium Chloride 50 ml @ 50 mls/hr Q24H IVPB Last administered on 10/09/18at 13:03; Admin Dose 50 MLS/HR; Start 10/03/18 at 13:30 Enoxaparin Sodium (Lovenox) 45 mg Q12 SC Last administered on 10/10/18at 08:55; Admin Dose 45 MG; Start 10/08/18 at 21:00 Vancomycin/Sodium Chloride 250 ml @ 125 mls/hr Q12H IVPB Last administered on 10/10/18at 02:43; Admin Dose 125 MLS/HR; Start 10/09/18 at 02:00 SKY BENAVIDES NP Oct 10, 2018 12:34
[2018-10-10] MEDS: FLUCONAZOLE 100 MG/50 ML (PMX) 50 ML IVPB SCH (13:10)
[2018-10-10 15:20] VITALS: BP 124/71; PULSE 82; RESP 16
[2018-10-10 20:00] VITALS: BP 120/65; PULSE 104; RESP 18
[2018-10-10] MEDS: LORAZEPAM 2 MG INJ IV PRN (20:57)
[2018-10-11] VITALS: BP 98/49; PULSE 105; RESP 19
[2018-10-11] MEDS: LEVALBUTEROL (NEB) 0.63 MG/3 ML AMP HHN SCH ×6 (01:00→21:00)
[2018-10-11] MEDS: ACCU-CHEK XX SCH ×6 (01:10→21:29)
[2018-10-11] MEDS: METHADONE (1 MG/ML 5 ML PO UD SYG) SL SCH ×6 (01:10→21:26)
[2018-10-11] MEDS: MEROPENEM 1 GM/50ML(PMX) 50 ML IVPB SCH ×2 (01:42→10:50)
[2018-10-11] MEDS: VANCOMYCIN 750 MG (PMX) 250 ML IVPB SCH (02:13)
[2018-10-11] MEDS: HYDROmorphONE 0.5 MG/0.5 ML SYG IV PRN ×2 (02:13→14:23)
[2018-10-11 04:00] VITALS: BP 117/77; PULSE 102; RESP 18
[2018-10-11] MEDS: PANTOPRAZOLE 40 MG INJ IV SCH ×2 (05:20→17:39)
[2018-10-11 07:14] VITALS: BP 120/55; PULSE 95; RESP 17
[2018-10-11] MEDS: INSULIN ASPART [NOVOLOG] 3 ML PEN SC SCH ×4 (07:55→21:00)
[2018-10-11] MEDS: COLLAGENASE 5 GM (UD JAR) TOP SCH (08:26)
[2018-10-11] MEDS: MULTIVITAMINS THERAPEUTIC TAB PO SCH (08:26)
[2018-10-11] MEDS: FLUTICASONE/VILANTEROL 200-25 INH DEVICE INH SCH (08:26)
[2018-10-11] MEDS: BALSAM PERU/CASTOR OIL 60 GM TUBE TOP SCH ×2 (08:27→21:29)
[2018-10-11] MEDS: ENOXAPARIN 100 MG/ML SYG SC SCH ×2 (08:32→22:05)
--- NOTE | 2018-10-11 09:03 | PN ---
DATE: 10/11/2018 SUBJECTIVE: The patient is stable. No events overnight. No fevers, chills. OBJECTIVE: VITAL SIGNS: Blood pressure is 120/55, pulse 75, respirations 17, temperature 98.5. HEENT: Head is normocephalic. NECK: Supple. HEART: Regular rate. LUNGS: Show diminished breath sounds at the base. ABDOMEN: Soft, nontender to palpation without rebound or guarding. EXTREMITIES: Negative for clubbing, cyanosis, or edema. DERMATOLOGIC: No rashes. MUSCULOSKELETAL: No joint effusion. NEUROLOGIC: No change in exam. MEDICATIONS: Have been reviewed. LABORATORY DATA: Has been reviewed. IMAGING STUDIES: Have been reviewed. ASSESSMENT AND PLAN: 1. Nonoliguric acute kidney injury. Etiology is secondary to hemodynamics. Renal function is impro tay. Continue to monitor. 2. Hyponatremia, possibly due to syndrome of inappropriate antidiuretic hormone secretion. Continue to monitor. Follow up urine studies. 3. Hypomagnesemia. Continue to monitor and replete. 4. Hypokalemia. Continue to monitor and replete as needed. 5. Anemia. Monitor hemoglobin and hematocrit levels. 6. Mineral bone disorder. Monitor calcium and phosphorus levels. 7. Perforated terminal ileum. The patient is status post ileocolectomy with drainage of abscess. C ontinue to monitor. Follow up with general surgery. 8. Sepsis, status post shock. Continue current antibiotic regimen. 9. Acute hypoxemic respiratory failure secondary to chronic obstructive pulmonary disease. Continue nebulizers. Follow up with pulmonary. 10. Nutrition. Continue to advance diet. Dictated By: RICHARD ORTIZ DO NR/NTS Conf#: [id number] DID#: [id number] CC: GERALDO VARGAS MD;*EndCC*
--- NOTE | 2018-10-11 09:54 | CONS ---
Consultation Date/Type/Reason Admit Date/Time Sep 15, 2018 at 03:32 Initial Consult Date 09/15/18 Type of Consult Pulmonary Patient is complaining of diarrhea as well as significant left lower quadrant abdominal pain. Denies any fever, chills, any vomiting. Shortness of breath has resolved. General exam; elderly female, laying in bed. H EENT exam; supple no JVD. No lymphadenopathy. Midline trachea. No thyromegaly. Pharynx is clear. Patient is edentulous. Chest exam; diminished but clear breath sounds. S1-S2 audible, no murmurs. Regular rhythm. Abdomen exam; soft, there is left lower quadrant tenderness , bowel sounds audible. Extremity exam; no peripheral edema. KNIFE FINISHER exam; patient is awake alert exhibiting no focal deficit. Assessment and recommendations; 1. Patient admitted with COPD exacerbation with interval improvement. 2. Significant spike and leukocytosis with abdominal pain as well as diarrhea. Add Flagyl 5 mg IV every [address] of abdomen pelvis with contrast. Obtain surgical consult. Requesting Provider: LEOBARDO DC Date/Time of Note DATE: 10/11/18 TIME: 09:51 24 HR Interval Summary Free Text/Dictation Patient's condition is stable. Denies any shortness of breath, any wheezing, cough. Able to eat fairly well. Denies any abdominal pain, nausea or vomiting. Patient able to have bowel movements. General exam; elderly woman, laying comfortably in bed. Currently in no distress. H ENT exam; supple neck, no JVD. No lymphadenopathy. Midline trachea. No thyromegaly. Patient has dentures in place. Chest exam; clear to auscultation. S1-S2 audible, no murmurs. Regular rhythm. Abdomen exam; slightly protuberant. Midline dressing in place. Abdominal drain in place. Abdomen is nontender. Bowel sounds are audible. Extremity exam; no peripheral edema. KNIFE FINISHER exam; no focal deficit. Assessment and recommendations; 1. Patient initially admitted for acute bronchitis , developed acute abdomen due to bowel perforation, status post laparotomy after the patient finally agreed for surgical intervention after a full week of convincing. Clinically doing remarkably well. 2. Left-sided pneumonia with interval clinical as well as radiological improvement. 3. Mild anemia. 4. Interval resolution of ileus. Continue current supportive care. Consider discharge to jail/rehab. Exam/Review of Systems Exam Vitals Vital Signs Date Temp Pulse Resp B/P (MAP) Pulse Ox O2 O2 Flow FiO2 Time Delivery Rate 10/11/18 Nasal 2.0 08:35 Cannula 10/11/18 98.5 95 17 120/55 100 07:14 (76) 10/07/18 30 12:38 Intake and Output 10/10/18 10/10/18 10/11/18 1515:00 23:00 07:00 IntakeIntake Total 150 ml 300 ml 50 ml OutputOutput Total 50 ml 50 ml BalanceBalance 150 ml 250 ml 0 ml Results Result Diagram: 10/10/18 0649 10/10/18 0649 Results 24hrs Laboratory Tests Test 10/10/18 11:57 10/10/18 17:05 10/10/18 21:08 10/11/18 00:47 Bedside Glucose 84 92 70 Vancomycin Level 15.7 Trough Test 10/11/18 00:54 10/11/18 05:23 10/11/18 07:54 Bedside Glucose 90 79 90 Medications Medication Current Medications IV Flush (NS 3 ml) 3 ml PER PROTOCOL IV ; Start 09/15/18 at 07:30 Ondansetron HCl (Zofran Inj) 4 mg Q6H PRN IV NAUSEA/VOMITING Last administered on 10/09/18 12:45; Admin Dose 4 MG; Start 09/15/18 at 07:30 Acetaminophen (Tylenol Tab) 650 mg Q6H PRN PO .PAIN 1-3 OR TEMP Last administered on 09/16/18 21:56; Admin Dose 650 MG; Start 09/15/18 at 07:30 Baclofen (Lioresal) 10 mg BID PO Last administered on 09/23/18 09:45; Admin Dose 10 MG; Start 09/15/18 at 09:00; Status Hold Buspirone HCl (Buspar) 10 mg BID PO Last administered on 09/23/18 11:44; Admin Dose 10 MG; Start 09/15/18 at 09:00; Status Hold Calcium Carbonate (Oyster Shell Calcium) 1.25 gm BID PO Last administered on 09/23/18 11:44; Admin Dose 1.25 GM; Start 09/15/18 at 09:00; Status Hold Clonazepam (Klonopin) 0.5 mg DAILY PRN PO ANXIETY Last administered on 08/30 02:04; Admin Dose 0.5 MG; Start 09/15/18 at 07:30; Status Hold Docusate Sodium (Colace) 100 mg BID PO Last administered on 09/23/18 09:43; Admin Dose 100 MG; Start 09/15/18 at 09:00; Status Hold Rifaximin (Xifaxan) 550 mg BID PO Last administered on 09/22/18 21:42; Admin Dose 550 MG; Start 09/15/18 at 09:00; Status Hold Sertraline HCl (Zoloft) 100 mg DAILY PO ; Start 09/15/18 at 09:00; Status Hold Fluticasone/ Vilanterol (Breo Ellipta 200-25 Mcg Inh) 1 inh DAILY INH Last administered on 10/11/18 08:26; Admin Dose 1 INH; Start 09/15/18 at 09:00 Albuterol/ Ipratropium (Duoneb) 3 ml Q3H RESP THERAPY PRN HHN WHEEZING AND SOB Last administered on 09/21/18 21:08; Admin Dose 3 ML; Start 09/15/18 at 08:00 Levalbuterol (Xopenex Neb) 0.63 mg Q4H RESP THERAPY HHN Last administered on 10/10/18 13:42; Admin Dose 0.63 MG; Start 09/15/18 at 17:00 Levalbuterol (Xopenex Neb) 0.63 mg Q2H RESP THERAPY PRN HHN WHEEZING AND SOB; Start 09/15/18 at 14:00 Collagenase (Santyl) 1 applic DAILY TOP Last administered on 10/11/18 08:26; Admin Dose 1 APPLIC; Start 09/16/18 at 15:00 Multivitamins Therapeutic (Theragran) 1 tab DAILY PO Last administered on 10/11/18 08:26; Admin Dose 1 TAB; Start 09/19/18 at 12:00 Ascorbic Acid (Vitamin C) 500 mg DAILY PO Last administered on 09/23/18 09:45; Admin Dose 500 MG; Start 09/19/18 at 12:00; Status Hold Zinc Sulfate (Zinc Sulfate) 220 mg DAILY PO Last administered on 09/22/18 08:50; Admin Dose 220 MG; Start 09/19/18 at 12:00; Status Hold Thiamine HCl (Vitamin B1) 50 mg DAILY PO Last administered on 09/23/18 09:45; Admin Dose 50 MG; Start 09/19/18 at 12:00; Status Hold Simethicone (Mylicon) 80 mg Q6H PRN PO DISTENSION/GAS/BLOATING Last administered on 10/08/18 12:18; Admin Dose 80 MG; Start 09/20/18 at 06:30 Diltiazem HCl (Cardizem Cd) 120 mg DAILY PO Last administered on 09/23/18 11:41; Admin Dose 120 MG; Start 09/20/18 at 09:00; Status Hold Zolpidem Tartrate (Ambien) 5 mg HS PRN PO INSOMNIA Last administered on 01:16; Admin Dose 5 MG; Start 09/21/18 at 02:00; Status Hold Phenol (Cepastat Lozenge) 1 lozenge Q1H PRN MT SORE THROAT Last administered on 09/22/18 03:32; Admin Dose 1 LOZENGE; Start 09/22/18 at 01:00 Levofloxacin (Levaquin) 500 mg DAILY@06 PO Last administered on 09/23/18 07:21; Admin Dose 500 MG; Start 09/23/18 at 06:00; Status Hold Metronidazole 100 ml @ 100 mls/hr Q8 IVPB Last administered on 09/23/18 22:03; Admin Dose 100 MLS/HR; Start 09/23/18 at 14:00; Status Hold Meropenem/Sodium Chloride 50 ml @ 100 mls/hr Q8H IVPB Last administered on 10/11/18 01:42; Admin Dose 100 MLS/HR; Start 09/24/18 at 02:30 Hydromorphone HCl (Dilaudid) 0.5 mg Q4H PRN IV SEVERE PAIN LEVEL 7-10 Last administered on 10/11/18 02:13; Admin Dose 0.5 MG; Start 09/24/18 at 03:00 Lorazepam (Ativan) 0.5 mg Q6H PRN IV ANXIETY Last administered on 10/10/18 20:57; Admin Dose 0.5 MG; Start 09/24/18 at 03:00 Pantoprazole (Protonix Iv) 40 mg BID@06,18 IV Last administered on 10/11/18at 05:20; Admin Dose 40 MG; Start 09/24/18 at 18:00 Miscellaneous Information 1 ea NOTE XX ; Start 09/25/18 at 22:00 Glucose (Glutose) 15 gm Q15M PRN PO DECREASED GLUCOSE Last administered on 10/10/18at 06:27; Admin Dose 15 GM; Start 09/25/18 at 22:00 Glucose (Glutose) 22.5 gm Q15M PRN PO DECREASED GLUCOSE; Start 09/25/18 at 22:00 Dextrose (D50w Syringe) 25 ml Q15M PRN IV DECREASED GLUCOSE Last administered on 10/09/18at 22:51; Admin Dose 25 ML; Start 09/25/18 at 22:00 Dextrose (D50w Syringe) 50 ml Q15M PRN IV DECREASED GLUCOSE Last administered on 10/10/18at 06:50; Admin Dose 50 ML; Start 09/25/18 at 22:00 Glucagon (Glucagen) 1 mg Q15M PRN IM DECREASED GLUCOSE; Start 09/25/18 at 22:00 Glucose (Glutose) 15 gm Q15M PRN BUCCAL DECREASED GLUCOSE; Start 09/25/18 at 22:00 Methadone HCl (Methadone Liq) 2 mg Q4 SL Last administered on 10/11/18at 08:28; Admin Dose 2 MG; Start 09/28/18 at 09:30 IV Flush (NS 10 ml) 10 ml PRN PRN IV IV PROTOCOL; Start 09/30/18 at 19:30 Insulin Aspart (Novolog Insulin Pen) NOVOLOG *MILD* ALGORITHM WITH MEALS BEDTIME SC Last administered on 10/10/18at 08:54; Admin Dose 1 UNIT; Start 10/01/18 at 21:00 Diagnostic Test (Pha) (Accu-Chek) 1 ea Q4 XX Last administered on 10/11/18 08:27; Admin Dose 1 EA; Start 10/03/18 at 13:00 Vancomycin HCl (Vanco Iv Per Pharmacy) VANCOMYCIN PER PHARMACY PER PROTOCOL XX ; Start 10/03/18 at 13:30 Fluconazole/ Sodium Chloride 50 ml @ 50 mls/hr Q24H IVPB Last administered on 10/10/18at 13:10; Admin Dose 50 MLS/HR; Start 10/03/18 at 13:30 Enoxaparin Sodium (Lovenox) 45 mg Q12 SC Last administered on 10/11/18at 08:32; Admin Dose 45 MG; Start 10/08/18 at 21:00 Vancomycin/Sodium Chloride 250 ml @ 125 mls/hr Q12H IVPB Last administered on 10/11/18at 02:13; Admin Dose 125 MLS/HR; Start 10/09/18 at 02:00 JOSÉ MIGUEL THOMSON Oct 11, 2018 09:54
[2018-10-11 11:13] VITALS: BP 127/68; PULSE 107; RESP 15
--- NOTE | 2018-10-11 12:27 | PN ---
Date/Time of Note Date/Time of Note DATE: 10/11/18 TIME: 12:25 Assessment/Plan VTE Prophylaxis Risk score (from Ns)>0 risk: 15 SCD applied (from Ns): No SCD contraindicated: other Pharmacological prophylaxis: LMWH Lines/Catheters IV Catheter Type (from Nrsg): PICC Line Central line still needed: Yes Urinary Cath still in place: No Assessment/Plan Hospital Course S: Patient current diet mechanical soft as ordered by surgery team. Seen by multiple specialist yesterday and today. No acute events overnight. No fevers. O: VS- see below PE: Gen: Lying in bed, more alert, on oxygen supplementation via nasal cannula Head: Atraumatic Eyes: Normal Conjunctiva ENT: Normal External Ears, Nose and Mouth. Neck: Full range of motion. No meningismus. Resp: Clear to auscultation bilaterally Cardio: Regular rate and rhythm, no murmurs Abd: Soft, non tender, non distended. Normal bowel sounds Ext: No bilateral lower extremity edema Neuro: No focal deficits Assessment/Plan: 68-year-old woman with history of COPD, PE in May 2018, CKD, admitted for COPD exacerbation and found to have ileum perforation with abdominal abscess. #Small bowel perforation -found also with abdominal abscess- Weeks of abdominal distension, tenderness, bloating- CT on 09/23 first showed pneumoperitoneum, taken to OR by Dr. Schumacher on 10/02, found to have perforated terminal ileum with abdominal abscess s/p drainage - ID following, for now continue current antibiotics meropenem, vancomycin, and diflucan per their recommendations for likely 1 more day. -Continue current diet per surgery recommendations, monitor labs #Anemia- Likely due to abdominal perforation. Received PRBC transfusion earlier this admission. Hemoglobin presently stable. -Monitor, transfuse to Hgb>7 or for symptomatic anemia # Hypoxic and hypercapnic respiratory failure: Resolved- PE in May 2018, on lovenox, eventually will transition back to [facility]- Had hypoxemic episode on 10/05, likely due to benzodiazepines- Now on nasal cannula. Goal sat 88-92%. -Monitor, continue Lovenox at present dose, follow pulmonary recommendations #MRSA colonization of the nares- s/p mupirocin -Monitor for now GI: PPI DVT: lovenox Dispo: Advance diet, begin ambulating per PT recommendations, plan for SNF placement - case management presently working on this Result Diagram: 10/10/18 0649 10/10/18 0649 Results 24hrs Laboratory Tests Test 10/10/18 17:05 10/10/18 21:08 10/11/18 00:47 10/11/18 00:54 Bedside Glucose 92 70 90 Vancomycin Level 15.7 Trough Test 10/11/18 05:23 10/11/18 07:54 10/11/18 11:44 Bedside Glucose 79 90 81 Exam/Review of Systems Exam Vitals Vital Signs Date Temp Pulse Resp B/P (MAP) Pulse Ox O2 O2 Flow FiO2 Time Delivery Rate 10/11/18 98.6 107 15 127/68 100 11:13 (87) 10/11/18 Nasal 2.0 08:35 Cannula 10/07/18 30 12:38 Intake and Output 10/10/18 10/10/18 10/11/18 1515:00 23:00 07:00 IntakeIntake Total 150 ml 300 ml 50 ml OutputOutput Total 50 ml 50 ml BalanceBalance 150 ml 250 ml 0 ml Results Results 24hrs Laboratory Tests Test 10/10/18 17:05 10/10/18 21:08 10/11/18 00:47 10/11/18 00:54 Bedside Glucose 92 70 90 Vancomycin Level 15.7 Trough Test 10/11/18 05:23 10/11/18 07:54 10/11/18 11:44 Bedside Glucose 79 90 81 Medications Medication Current Medications IV Flush (NS 3 ml) 3 ml PER PROTOCOL IV ; Start 09/15/18 at 07:30 Ondansetron HCl (Zofran Inj) 4 mg Q6H PRN IV NAUSEA/VOMITING Last administered on 10/09/18at 12:45; Admin Dose 4 MG; Start 09/15/18 at 07:30 Acetaminophen (Tylenol Tab) 650 mg Q6H PRN PO .PAIN 1-3 OR TEMP Last administered on 09/16/18at 21:56; Admin Dose 650 MG; Start 09/15/18 at 07:30 Baclofen (Lioresal) 10 mg BID PO Last administered on 09/23/18 09:45; Admin Dose 10 MG; Start 09/15/18 at 09:00; Status Hold Buspirone HCl (Buspar) 10 mg BID PO Last administered on 09/23/18 11:44; Admin Dose 10 MG; Start 09/15/18 at 09:00; Status Hold Calcium Carbonate (Oyster Shell Calcium) 1.25 gm BID PO Last administered on 09/23/18 11:44; Admin Dose 1.25 GM; Start 09/15/18 at 09:00; Status Hold Clonazepam (Klonopin) 0.5 mg DAILY PRN PO ANXIETY Last administered on 09/23/18 t 02:04; Admin Dose 0.5 MG; Start 09/15/18 at 07:30; Status Hold Docusate Sodium (Colace) 100 mg BID PO Last administered on 09/23/18 09:43; Admin Dose 100 MG; Start 09/15/18 at 09:00; Status Hold Rifaximin (Xifaxan) 550 mg BID PO Last administered on 09/22/18 21:42; Admin Dose 550 MG; Start 09/15/18 at 09:00; Status Hold Sertraline HCl (Zoloft) 100 mg DAILY PO ; Start 09/15/18 at 09:00; Status Hold Fluticasone/ Vilanterol (Breo Ellipta 200-25 Mcg Inh) 1 inh DAILY INH Last administered on 10/11/18 08:26; Admin Dose 1 INH; Start 09/15/18 at 09:00 Albuterol/ Ipratropium (Duoneb) 3 ml Q3H RESP THERAPY PRN HHN WHEEZING AND SOB Last administered on 09/21/18 21:08; Admin Dose 3 ML; Start 09/15/18 at 08:00 Levalbuterol (Xopenex Neb) 0.63 mg Q4H RESP THERAPY HHN Last administered on 10/10/18 13:42; Admin Dose 0.63 MG; Start 09/15/18 at 17:00 Levalbuterol (Xopenex Neb) 0.63 mg Q2H RESP THERAPY PRN HHN WHEEZING AND SOB; Start 09/15/18 at 14:00 Collagenase (Santyl) 1 applic DAILY TOP Last administered on 10/11/18 08:26; Admin Dose 1 APPLIC; Start 09/16/18 at 15:00 Multivitamins Therapeutic (Theragran) 1 tab DAILY PO Last administered on 10/11/18 08:26; Admin Dose 1 TAB; Start 09/19/18 at 12:00 Ascorbic Acid (Vitamin C) 500 mg DAILY PO Last administered on 09/23/18 09:45; Admin Dose 500 MG; Start 09/19/18 at 12:00; Status Hold Zinc Sulfate (Zinc Sulfate) 220 mg DAILY PO Last administered on 09/22/18 08:50; Admin Dose 220 MG; Start 09/19/18 at 12:00; Status Hold Thiamine HCl (Vitamin B1) 50 mg DAILY PO Last administered on 09/23/18 09:45; Admin Dose 50 MG; Start 09/19/18 at 12:00; Status Hold Simethicone (Mylicon) 80 mg Q6H PRN PO DISTENSION/GAS/BLOATING Last administered on 10/08/18 12:18; Admin Dose 80 MG; Start 09/20/18 at 06:30 Diltiazem HCl (Cardizem Cd) 120 mg DAILY PO Last administered on 09/23/18 11:41; Admin Dose 120 MG; Start 09/20/18 at 09:00; Status Hold Zolpidem Tartrate (Ambien) 5 mg HS PRN PO INSOMNIA Last administered on 09/24/18 at 01:16; Admin Dose 5 MG; Start 09/21/18 at 02:00; Status Hold Phenol (Cepastat Lozenge) 1 lozenge Q1H PRN MT SORE THROAT Last administered on 09/22/18 03:32; Admin Dose 1 LOZENGE; Start 09/22/18 at 01:00 Levofloxacin (Levaquin) 500 mg DAILY@06 PO Last administered on 09/23/18 07:21; Admin Dose 500 MG; Start 09/23/18 at 06:00; Status Hold Metronidazole 100 ml @ 100 mls/hr Q8 IVPB Last administered on 09/23/18 22:03; Admin Dose 100 MLS/HR; Start 09/23/18 at 14:00; Status Hold Meropenem/Sodium Chloride 50 ml @ 100 mls/hr Q8H IVPB Last administered on 10/11/18 10:50; Admin Dose 100 MLS/HR; Start 09/24/18 at 02:30 Hydromorphone HCl (Dilaudid) 0.5 mg Q4H PRN IV SEVERE PAIN LEVEL 7-10 Last administered on 10/11/18 02:13; Admin Dose 0.5 MG; Start 09/24/18 at 03:00 Lorazepam (Ativan) 0.5 mg Q6H PRN IV ANXIETY Last administered on 10/10/18 20:57; Admin Dose 0.5 MG; Start 09/24/18 at 03:00 Pantoprazole (Protonix Iv) 40 mg BID@06,18 IV Last administered on 10/11/18 05:20; Admin Dose 40 MG; Start 09/24/18 at 18:00 Miscellaneous Information 1 ea NOTE XX ; Start 09/25/18 at 22:00 Glucose (Glutose) 15 gm Q15M PRN PO DECREASED GLUCOSE Last administered on 10/10/18 06:27; Admin Dose 15 GM; Start 09/25/18 at 22:00 Glucose (Glutose) 22.5 gm Q15M PRN PO DECREASED GLUCOSE; Start 09/25/18 at 22:00 Dextrose (D50w Syringe) 25 ml Q15M PRN IV DECREASED GLUCOSE Last administered o n 10/09/18 22:51; Admin Dose 25 ML; Start 09/25/18 at 22:00 Dextrose (D50w Syringe) 50 ml Q15M PRN IV DECREASED GLUCOSE Last administered on 10/10/18 06:50; Admin Dose 50 ML; Start 09/25/18 at 22:00 Glucagon (Glucagen) 1 mg Q15M PRN IM DECREASED GLUCOSE; Start 09/25/18 at 22:00 Glucose (Glutose) 15 gm Q15M PRN BUCCAL DECREASED GLUCOSE; Start 09/25/18 at 22:00 Methadone HCl (Methadone Liq) 2 mg Q4 SL Last administered on 10/11/18 08:28; Admin Dose 2 MG; Start 09/28/18 at 09:30 IV Flush (NS 10 ml) 10 ml PRN PRN IV IV PROTOCOL; Start 09/30/18 at 19:30 Insulin Aspart (Novolog Insulin Pen) NOVOLOG *MILD* ALGORITHM WITH MEALS BEDTIME SC Last administered on 10/10/18 08:54; Admin Dose 1 UNIT; Start 10/01/18 at 21:00 Diagnostic Test (Pha) (Accu-Chek) 1 ea Q4 XX Last administered on 10/11/18 08:27; Admin Dose 1 EA; Start 10/03/18 at 13:00 Vancomycin HCl (Vanco Iv Per Pharmacy) VANCOMYCIN PER PHARMACY PER PROTOCOL XX ; Start 10/03/18 at 13:30 Fluconazole/ Sodium Chloride 50 ml @ 50 mls/hr Q24H IVPB Last administered on 10/10/18at 13:10; Admin Dose 50 MLS/HR; Start 10/03/18 at 13:30 Enoxaparin Sodium (Lovenox) 45 mg Q12 SC Last administered on 10/11/18at 08:32; Admin Dose 45 MG; Start 10/08/18 at 21:00 Vancomycin/Sodium Chloride 250 ml @ 125 mls/hr Q12H IVPB Last administered on 10/11/18at 02:13; Admin Dose 125 MLS/HR; Start 10/09/18 at 02:00 STU ORTEZ Oct 11, 2018 12:27
--- NOTE | 2018-10-11 13:27 | PN ---
Date/Time of Note Date/Time of Note DATE: 10/11/18 TIME: 13:16 Assessment/Plan Lines/Catheters IV Catheter Type (from [facility]): PICC Line Cline in Place (from [facility]): No Assessment/Plan Chief Complaint/Hosp Course 1. Respiratory distress sp high flow oxygen; right pleural effusion with Right lung base consolidation -Per pulmonary -Oxygen supplementation as needed -Pulmonary toilet 2. Perforated terminal ileum with multiple abscesses, patient and son finally agreeable to surgery yesterday s/p lap > open ileocolectomy and drainage of abscesses (10/03).; With likely paralytic ileus-resolved -diet as tolerated -ambulate > PT -abx per ID -supportive -fluids -Continue drain care 3. Sepsis (resolved), with persistent bandemia -as above 4. Acute renal insufficiency improved judicious fluid management -avoid nephrotoxic agents 5. Elevated transaminases, history of hep C -Monitor 6. NSTEMI with Persistent tachycardia (improving HR). -Consider cardiology consult -medical/cardiac optimization 7. Anemia status post PRBC transfusion, downtrending -monitor 8.Chronic methadone use: -pain mgt 9. Electrolyte imbalance: -Optimize electrolytes> per medical team Thank you. Patient seen and examined in collaboration with Dr. Naveed Schumacher. Subjective 24 Hr Interval Summary Feels well. Tolerating diet. + Bowel function. No fevers, chills, sob, congested cough, cp, palpitations, savage, dizziness, n/v/d/dysuria. Exam/Review of Systems Vital Signs Vitals Vital Signs Date Temp Pulse Resp B/P (MAP) Pulse Ox O2 O2 Flow FiO2 Time Delivery Rate 10/11/18 98.6 107 15 127/68 100 11:13 (87) 10/11/18 Nasal 2.0 08:35 Cannula 10/07/18 30 12:38 Intake and Output 10/10/18 10/10/18 10/11/18 1515:00 23:00 07:00 IntakeIntake Total 150 ml 300 ml 50 ml OutputOutput Total 50 ml 50 ml BalanceBalance 150 ml 250 ml 0 ml Exam Free Text/Dictation Constitutional: alert, oriented, nad Psych: nl mood/affect; No anxiety Head: normocephalic, lacerations Eyes: nl conjunctiva, EOMI, PERRL; No icteric ENMT: nl external ears & nose, mucosa pink and moist Neck: supple, non-tender, jvd Respiratory: normal air movement; high flow No congested cough, No labored breathing Cardiovascular: regular rate and rhythm, No edema Gastrointestinal: soft, distended (min), min tender, octaviano serosang; No rebound, guarding, rigidity, midabdominal staple line- clean Musculoskeletal: nl extremities to inspection; No nl gait and stance, No joint tenderness Extremities: normal pulses Results Result Diagram: 10/10/18 0649 10/10/18 0649 RAFAEL EMERY NP Oct 11, 2018 13:27
[2018-10-11] MEDS: FLUCONAZOLE 100 MG/50 ML (PMX) 50 ML IVPB SCH (14:09)
--- NOTE | 2018-10-11 14:17 | CONS ---
Assessment/Plan Assessment/Plan Hospital Course (Demo Recall) POD#9 No acute events,comfortable on nc, no fevers. cxr noted Antimicrobials: Meropenem, Vanco, Diflucan Indwelling: Left-sided RAFAL, PICC line, Cline catheter HEENT: Within normal limits. NECK: Supple. CHEST: Decreased breath sounds at the bases. HEART: S1 S2 ABDOMEN: Distended, bowel sounds hypoactive, mid abdominal dressing intact EXTREMITIES: Without cyanosis, clubbing, or edema. Assessment: 1. Acute hypoxemic respiratory failure 2. Sepsis s/p shock 3. Perforated bowel with multiple abscess and small bowel obstruction, status post laparotomy/open exploration 10/02/2018 4. HCAP===> treated 5. Non-ST elevation WA 6. COPD Plan: Stable, dc abx, repeat cx's prn Consultation Date/Type/Reason Admit Date/Time Sep 15, 2018 at 03:32 Initial Consult Date 09/24/18 Type of Consult id Requesting Provider: LEOBARDO DC Date/Time of Note DATE: 10/11/18 TIME: 14:16 Exam/Review of Systems Exam Vitals Vital Signs Date Temp Pulse Resp B/P (MAP) Pulse Ox O2 O2 Flow FiO2 Time Delivery Rate 10/11/18 98.6 107 15 127/68 100 11:13 (87) 10/11/18 Nasal 2.0 08:35 Cannula 10/07/18 30 12:38 Intake and Output 10/10/18 10/10/18 10/11/18 1515:00 23:00 07:00 IntakeIntake Total 150 ml 300 ml 50 ml OutputOutput Total 50 ml 50 ml BalanceBalance 150 ml 250 ml 0 ml Results Result Diagram: 10/10/18 0649 10/10/18 0649 Results 24hrs Laboratory Tests Test 10/10/18 17:05 10/10/18 21:08 10/11/18 00:47 10/11/18 00:54 Bedside Glucose 92 70 90 Vancomycin Level 15.7 Trough Test 10/11/18 05:23 10/11/18 07:54 10/11/18 11:44 Bedside Glucose 79 90 81 Medications Medication Current Medications IV Flush (NS 3 ml) 3 ml PER PROTOCOL IV ; Start 09/15/18 at 07:30 Ondansetron HCl (Zofran Inj) 4 mg Q6H PRN IV NAUSEA/VOMITING Last administered on 10/09/18 12:45; Admin Dose 4 MG; Start 09/15/18 at 07:30 Acetaminophen (Tylenol Tab) 650 mg Q6H PRN PO .PAIN 1-3 OR TEMP Last administered on 09/16/18 21:56; Admin Dose 650 MG; Start 09/15/18 at 07:30 Baclofen (Lioresal) 10 mg BID PO Last administered on 09/23/18 09:45; Admin Dose 10 MG; Start 09/15/18 at 09:00; Status Hold Buspirone HCl (Buspar) 10 mg BID PO Last administered on 09/23/18 11:44; Admin Dose 10 MG; Start 09/15/18 at 09:00; Status Hold Calcium Carbonate (Oyster Shell Calcium) 1.25 gm BID PO Last administered on 09/23/18 11:44; Admin Dose 1.25 GM; Start 09/15/18 at 09:00; Status Hold Clonazepam (Klonopin) 0.5 mg DAILY PRN PO ANXIETY Last administered on 09/23/18 02:04; Admin Dose 0.5 MG; Start 09/15/18 at 07:30; Status Hold Docusate Sodium (Colace) 100 mg BID PO Last administered on 09/23/18 09:43; Admin Dose 100 MG; Start 09/15/18 at 09:00; Status Hold Rifaximin (Xifaxan) 550 mg BID PO Last administered on 09/22/18 21:42; Admin Dose 550 MG; Start 09/15/18 at 09:00; Status Hold Sertraline HCl (Zoloft) 100 mg DAILY PO ; Start 09/15/18 at 09:00; Status Hold Fluticasone/ Vilanterol (Breo Ellipta 200-25 Mcg Inh) 1 inh DAILY INH Last ad ministered on 10/11/18 08:26; Admin Dose 1 INH; Start 09/15/18 at 09:00 Albuterol/ Ipratropium (Duoneb) 3 ml Q3H RESP THERAPY PRN HHN WHEEZING AND SOB Last administered on 09/21/18 21:08; Admin Dose 3 ML; Start 09/15/18 at 08:00 Levalbuterol (Xopenex Neb) 0.63 mg Q4H RESP THERAPY HHN Last administered on 10/10/18 13:42; Admin Dose 0.63 MG; Start 09/15/18 at 17:00 Levalbuterol (Xopenex Neb) 0.63 mg Q2H RESP THERAPY PRN HHN WHEEZING AND SOB; Start 09/15/18 at 14:00 Collagenase (Santyl) 1 applic DAILY TOP Last administered on 10/11/18 08:26; Admin Dose 1 APPLIC; Start 09/16/18 at 15:00 Multivitamins Therapeutic (Theragran) 1 tab DAILY PO Last administered on 10/11/18 08:26; Admin Dose 1 TAB; Start 09/19/18 at 12:00 Ascorbic Acid (Vitamin C) 500 mg DAILY PO Last administered on 09/23/18 09:45; Admin Dose 500 MG; Start 09/19/18 at 12:00; Status Hold Zinc Sulfate (Zinc Sulfate) 220 mg DAILY PO Last administered on 09/22/18 08:50; Admin Dose 220 MG; Start 09/19/18 at 12:00; Status Hold Thiamine HCl (Vitamin B1) 50 mg DAILY PO Last administered on 09/23/18 09:45; Admin Dose 50 MG; Start 09/19/18 at 12:00; Status Hold Simethicone (Mylicon) 80 mg Q6H PRN PO DISTENSION/GAS/BLOATING Last administered on 10/08/18 12:18; Admin Dose 80 MG; Start 09/20/18 at 06:30 Diltiazem HCl (Cardizem Cd) 120 mg DAILY PO Last administered on 09/23/18 11:41; Admin Dose 120 MG; Start 09/20/18 at 09:00; Status Hold Zolpidem Tartrate (Ambien) 5 mg HS PRN PO INSOMNIA Last administered on 09/24/18 01:16; Admin Dose 5 MG; Start 09/21/18 at 02:00; Status Hold Phenol (Cepastat Lozenge) 1 lozenge Q1H PRN MT SORE THROAT Last administered on 09/22/18 03:32; Admin Dose 1 LOZENGE; Start 09/22/18 at 01:00 Levofloxacin (Levaquin) 500 mg DAILY@06 PO Last administered on 7/26/19at 07:21 ; Admin Dose 500 MG; Start 09/23/18 at 06:00; Status Hold Metronidazole 100 ml @ 100 mls/hr Q8 IVPB Last administered on 09/23/18 22:03; Admin Dose 100 MLS/HR; Start 09/23/18 at 14:00; Status Hold Meropenem/Sodium Chloride 50 ml @ 100 mls/hr Q8H IVPB Last administered on 10/11/18at 10:50; Admin Dose 100 MLS/HR; Start 09/24/18 at 02:30 Hydromorphone HCl (Dilaudid) 0.5 mg Q4H PRN IV SEVERE PAIN LEVEL 7-10 Last administered on 10/11/18 02:13; Admin Dose 0.5 MG; Start 09/24/18 at 03:00 Lorazepam (Ativan) 0.5 mg Q6H PRN IV ANXIETY Last administered on 10/10/18 20:57; Admin Dose 0.5 MG; Start 09/24/18 at 03:00 Pantoprazole (Protonix Iv) 40 mg BID@06,18 IV Last administered on 10/11/18 05:20; Admin Dose 40 MG; Start 09/24/18 at 18:00 Miscellaneous Information 1 ea NOTE XX ; Start 09/25/18 at 22:00 Glucose (Glutose) 15 gm Q15M PRN PO DECREASED GLUCOSE Last administered on 10/10/18 06:27; Admin Dose 15 GM; Start 09/25/18 at 22:00 Glucose (Glutose) 22.5 gm Q15M PRN PO DECREASED GLUCOSE; Start 09/25/18 at 22:00 Dextrose (D50w Syringe) 25 ml Q15M PRN IV DECREASED GLUCOSE Last administered on 10/09/18at 22:51; Admin Dose 25 ML; Start 09/25/18 at 22:00 Dextrose (D50w Syringe) 50 ml Q15M PRN IV DECREASED GLUCOSE Last administered on 10/10/18 06:50; Admin Dose 50 ML; Start 09/25/18 at 22:00 Glucagon (Glucagen) 1 mg Q15M PRN IM DECREASED GLUCOSE; Start 09/25/18 at 22:00 Glucose (Glutose) 15 gm Q15M PRN BUCCAL DECREASED GLUCOSE; Start 09/25/18 at 22:00 Methadone HCl (Methadone Liq) 2 mg Q4 SL Last administered on 10/11/18 08:28; Admin Dose 2 MG; Start 09/28/18 at 09:30 IV Flush (NS 10 ml) 10 ml PRN PRN IV IV PROTOCOL; Start 09/30/18 at 19:30 Insulin Aspart (Novolog Insulin Pen) NOVOLOG *MILD* ALGORITHM WITH MEALS BEDTIME SC Last administered on 10/10/18 08:54; Admin Dose 1 UNIT; Start 10/01/18 at 21:00 Diagnostic Test (Pha) (Accu-Chek) 1 ea Q4 XX Last administered on 10/11/18 12:44; Admin Dose 1 EA; Start 10/03/18 at 13:00 Vancomycin HCl (Vanco Iv Per Pharmacy) VANCOMYCIN PER PHARMACY PER PROTOCOL XX ; Start 10/03/18 at 13:30 Fluconazole/ Sodium Chloride 50 ml @ 50 mls/hr Q24H IVPB Last administered on 10/11/18 14:09; Admin Dose 50 MLS/HR; Start 10/03/18 at 13:30 Enoxaparin Sodium (Lovenox) 45 mg Q12 SC Last administered on 10/11/18 08:32; Admin Dose 45 MG; Start 10/08/18 at 21:00 Vancomycin/Sodium Chloride 250 ml @ 125 mls/hr Q12H IVPB Last administered on 10/11/18 02:13; Admin Dose 125 MLS/HR; Start 10/09/18 at 02:00 SKY BENAVIDES NP Oct 11, 2018 14:17
[2018-10-11 15:09] VITALS: BP 116/60; PULSE 105; RESP 17
[2018-10-11 19:47] VITALS: BP 120/74; PULSE 105; RESP 18
[2018-10-12] VITALS (7 sets, daily range): BP systolic 120–142; BP diastolic 56–76; PULSE 100–110; RESP 19–20
[2018-10-12] MEDS: ACCU-CHEK XX SCH ×6 (01:00→20:16)
[2018-10-12] MEDS: LEVALBUTEROL (NEB) 0.63 MG/3 ML AMP HHN SCH ×6 (01:00→20:28)
[2018-10-12] MEDS: METHADONE (1 MG/ML 5 ML PO UD SYG) SL SCH ×6 (01:50→20:12)
[2018-10-12] MEDS: HYDROmorphONE 0.5 MG/0.5 ML SYG IV PRN ×5 (02:19→21:14)
[2018-10-12] MEDS: PANTOPRAZOLE 40 MG INJ IV SCH ×2 (06:27→17:09)
[2018-10-12] MEDS: INSULIN ASPART [NOVOLOG] 3 ML PEN SC SCH ×4 (07:44→20:15)
[2018-10-12] MEDS: SOD CHLORIDE 0.9% 1,000 ML IV SCH (08:13)
[2018-10-12] MEDS: MULTIVITAMINS THERAPEUTIC TAB PO SCH (08:13)
[2018-10-12] MEDS: COLLAGENASE 5 GM (UD JAR) TOP SCH (08:13)
[2018-10-12] MEDS: FLUTICASONE/VILANTEROL 200-25 INH DEVICE INH SCH (08:14)
[2018-10-12] MEDS: BALSAM PERU/CASTOR OIL 60 GM TUBE TOP SCH ×2 (08:15→20:15)
[2018-10-12] MEDS: ENOXAPARIN 100 MG/ML SYG SC SCH (08:29)
--- NOTE | 2018-10-12 09:44 | CONS ---
Consultation Date/Type/Reason Admit Date/Time Sep 15, 2018 at 03:32 Initial Consult Date 09/15/18 Type of Consult Pulmonary Patient is complaining of diarrhea as well as significant left lower quadrant abdominal pain. Denies any fever, chills, any vomiting. Shortness of breath has resolved. General exam; elderly female, laying in bed. H EENT exam; supple no JVD. No lymphadenopathy. Midline trachea. No thyromegaly. Pharynx is clear. Patient is edentulous. Chest exam; diminished but clear breath sounds. S1-S2 audible, no murmurs. Regular rhythm. Abdomen exam; soft, there is left lower quadrant tenderness , bowel sounds audible. Extremity exam; no peripheral edema. [employer] exam; patient is awake alert exhibiting no focal deficit. Assessment and recommendations; 1. Patient admitted with COPD exacerbation with interval improvement. 2. Significant spike and leukocytosis with abdominal pain as well as diarrhea. Add Flagyl 5 mg IV every [address] of abdomen pelvis with contrast. Obtain surgical consult. Requesting Provider: LEOBARDO DC Date/Time of Note DATE: 10/12/18 TIME: 09:42 24 HR Interval Summary Free Text/Dictation Patient's condition is stable. Remains completely awake and alert. Able to eat very well. Denies any shortness of breath, abdominal pain, nausea vomiting. General exam; elderly female, awake alert, currently in no distress. On 2 L nasal cannula. H ENT exam; supple neck, no JVD. No lymphadenopathy. Midline trachea. No thyromegaly. Patient has dentures in place. No neck masses. Chest exam; clear to auscultation. S1-S2 audible, no murmurs. Regular rhythm. Abdomen exam; soft, no organomegaly. Nontender. Midline dressing in place. Abdominal drain in place. Bowel sounds audible. Extremity exam; no peripheral edema clubbing. [employer] exam; no focal deficit. Assessment and recommendations; next 1. Patient initially admitted with acute bronchitis then developed acute abdomen due to bowel perforation, patient refused surgical intervention for at least a week and then finally agreed to it required laparotomy. Patient clinical status is markedly improved over the last few days. 2. Interval resolution of ileus. 3. Extensive right-sided pneumonia with significant clinical and radiological improvement. Patient off antibiotics now. 4. History of depression. Continue current supportive care. Consider discharge to half-way. Patient stable for discharge from pulmonary perspective. Exam/Review of Systems Exam Vitals Vital Signs Date Temp Pulse Resp B/P (MAP) Pulse Ox O2 O2 Flow FiO2 Time Delivery Rate 10/12/18 98.8 106 20 120/56 96 Nasal 07:43 (77) Cannula 10/12/18 1.0 01:44 Intake and Output 10/11/18 10/11/18 10/12/18 1515:00 23:00 07:00 IntakeIntake Total 350 ml 220 ml OutputOutput Total 30 ml BalanceBalance 320 ml 220 ml Results Result Diagram: 10/11/18 1527 10/11/18 1527 Results 24hrs Laboratory Tests Test 10/11/18 11:44 10/11/18 15:27 10/11/18 17:41 10/11/18 17:54 Bedside Glucose 81 125 White Blood Count 9.4 Red Blood Count 3.05 L Hemoglobin 8.7 L Hematocrit 28.6 L Mean Corpuscular 93.8 Volume Mean Corpuscular 28.5 L Hemoglobin Mean Corpuscular 30.4 L Hemoglobin Concen t Red Cell 15.9 H Distribution Width Platelet Count 212 Mean Platelet 12.0 H Volume Immature 1.000 H Granulocytes % Neutrophils % 70.5 Lymphocytes % 16.6 Monocytes % 5.0 Eosinophils % 6.3 Basophils % 0.6 Nucleated Red 0.0 Blood Cells % Immature 0.090 H Granulocytes # Neutrophils # 6.6 Lymphocytes # 1.6 Monocytes # 0.5 Eosinophils # 0.6 H Basophils # 0.1 Nucleated Red 0.0 Blood Cells # Sodium Level 131 L Potassium Level 3.5 Chloride Level 91 L Carbon Dioxide 41 *H Level Anion Gap -1 L Blood Urea 6 L Nitrogen Creatinine 0.38 L Est Glomerular > 60 Filtrat Rate mL/min Glucose Level 102 Calcium Level 7.1 L Blood Gas Blood arterial Specimen Source Arterial Blood 10/11/2018 7:15:2 Date Drawn 1 PM Arterial Blood pH 7.442 (Temp corrected) Arterial Blood 53.9 H pCO2 (Temp correct) Arterial Blood 91.5 pO2 (Temp corrected) Arterial Blood 36.0 H HCO3 Arterial Blood 10.6 H Base Excess Arterial Blood 97.4 Oxygen Saturation Flip Test ACCEPTAB Arterial Blood Right Radial Gas Puncture Site Arterial 0 Blood Carboxyhemo globin Arterial Blood 0.4 Methemoglobin Blood Gas A-a O2 37.3 H Differential Oxyhemoglobin 97.0 Percent Blood Gas 37.0 Temperature Blood Gas Actual 20 Respiration Rate Blood Gas NASAL CANNULA Modality FiO2 27.0 Blood Gas S.H. Notified Whom Blood Gas 10/11/2018 7:28:2 Notified Time 4 PM Test 10/11/18 21:25 10/12/18 07:35 Bedside Glucose 92 87 Medications Medication Current Medications IV Flush (NS 3 ml) 3 ml PER PROTOCOL IV ; Start 09/15/18 at 07:30 Ondansetron HCl (Zofran Inj) 4 mg Q6H PRN IV NAUSEA/VOMITING Last administered on 10/09/18 12:45; Admin Dose 4 MG; Start 09/15/18 at 07:30 Acetaminophen (Tylenol Tab) 650 mg Q6H PRN PO .PAIN 1-3 OR TEMP Last administered on 09/16/18 21:56; Admin Dose 650 MG; Start 09/15/18 at 07:30 Baclofen (Lioresal) 10 mg BID PO Last administered on 09/23/18 09:45; Admin Dose 10 MG; Start 09/15/18 at 09:00; Status Hold Buspirone HCl (Buspar) 10 mg BID PO Last administered on 09/23/18 11:44; Admin Dose 10 MG; Start 09/15/18 at 09:00; Status Hold Calcium Carbonate (Oyster Shell Calcium) 1.25 gm BID PO Last administered on 09/23/18 11:44; Admin Dose 1.25 GM; Start 09/15/18 at 09:00; Status Hold Clonazepam (Klonopin) 0.5 mg DAILY PRN PO ANXIETY Last administered on 09/23/18 02:04; Admin Dose 0.5 MG; Start 09/15/18 at 07:30; Status Hold Docusate Sodium (Colace) 100 mg BID PO Last administered on 09/23/18 09:43; Admin Dose 100 MG; Start 09/15/18 at 09:00; Status Hold Rifaximin (Xifaxan) 550 mg BID PO Last administered on 09/22/18 21:42; Admin Dose 550 MG; Start 09/15/18 at 09:00; Status Hold Sertraline HCl (Zoloft) 100 mg DAILY PO ; Start 09/15/18 at 09:00; Status Hold Fluticasone/ Vilanterol (Breo Ellipta 200-25 Mcg Inh) 1 inh DAILY INH Last ad ministered on 10/12/18 08:14; Admin Dose 1 INH; Start 09/15/18 at 09:00 Albuterol/ Ipratropium (Duoneb) 3 ml Q3H RESP THERAPY PRN HHN WHEEZING AND SOB Last administered on 09/21/18 21:08; Admin Dose 3 ML; Start 09/15/18 at 08:00 Levalbuterol (Xopenex Neb) 0.63 mg Q4H RESP THERAPY HHN Last administered on 10/11/18 17:07; Admin Dose 0.63 MG; Start 09/15/18 at 17:00 Levalbuterol (Xopenex Neb) 0.63 mg Q2H RESP THERAPY PRN HHN WHEEZING AND SOB; Start 09/15/18 at 14:00 Collagenase (Santyl) 1 applic DAILY TOP Last administered on 10/12/18 08:13; Admin Dose 1 APPLIC; Start 09/16/18 at 15:00 Multivitamins Therapeutic (Theragran) 1 tab DAILY PO Last administered on 10/12/18 08:13; Admin Dose 1 TAB; Start 09/19/18 at 12:00 Ascorbic Acid (Vitamin C) 500 mg DAILY PO Last administered on 09/23/18 09:45; Admin Dose 500 MG; Start 09/19/18 at 12:00; Status Hold Zinc Sulfate (Zinc Sulfate) 220 mg DAILY PO Last administered on 09/22/18 08:50; Admin Dose 220 MG; Start 09/19/18 at 12:00; Status Hold Thiamine HCl (Vitamin B1) 50 mg DAILY PO Last administered on 09/23/18 09:45; Admin Dose 50 MG; Start 09/19/18 at 12:00; Status Hold Simethicone (Mylicon) 80 mg Q6H PRN PO DISTENSION/GAS/BLOATING Last administered on 10/08/18 12:18; Admin Dose 80 MG; Start 09/20/18 at 06:30 Diltiazem HCl (Cardizem Cd) 120 mg DAILY PO Last administered on 09/23/18 11:41; Admin Dose 120 MG; Start 09/20/18 at 09:00; Status Hold Zolpidem Tartrate (Ambien) 5 mg HS PRN PO INSOMNIA Last administered on 09/24/18 01:16; Admin Dose 5 MG; Start 09/21/18 at 02:00; Status Hold Phenol (Cepastat Lozenge) 1 lozenge Q1H PRN MT SORE THROAT Last administered on 09/22/18 03:32; Admin Dose 1 LOZENGE; Start 09/22/18 at 01:00 Hydromorphone HCl (Dilaudid) 0.5 mg Q4H PRN IV SEVERE PAIN LEVEL 7-10 Last admi nistered on 10/12/18 09:29; Admin Dose 0.5 MG; Start 09/24/18 at 03:00 Lorazepam (Ativan) 0.5 mg Q6H PRN IV ANXIETY Last administered on 10/10/18 20:57; Admin Dose 0.5 MG; Start 09/24/18 at 03:00 Pantoprazole (Protonix Iv) 40 mg BID@,18 IV Last administered on 10/12/18 06:27; Admin Dose 40 MG; Start 09/24/18 at 18:00 Miscellaneous Information 1 ea NOTE XX ; Start 09/25/18 at 22:00 Glucose (Glutose) 15 gm Q15M PRN PO DECREASED GLUCOSE Last administered on 10/10/18at 06:27; Admin Dose 15 GM; Start 09/25/18 at 22:00 Glucose (Glutose) 22.5 gm Q15M PRN PO DECREASED GLUCOSE; Start 09/25/18 at 22:00 Dextrose (D50w Syringe) 25 ml Q15M PRN IV DECREASED GLUCOSE Last administered on 10/09/18at 22:51; Admin Dose 25 ML; Start 09/25/18 at 22:00 Dextrose (D50w Syringe) 50 ml Q15M PRN IV DECREASED GLUCOSE Last administered on 10/10/18 06:50; Admin Dose 50 ML; Start 09/25/18 at 22:00 Glucagon (Glucagen) 1 mg Q15M PRN IM DECREASED GLUCOSE; Start 09/25/18 at 22:00 Glucose (Glutose) 15 gm Q15M PRN BUCCAL DECREASED GLUCOSE; Start 09/25/18 at 22:00 Methadone HCl (Methadone Liq) 2 mg Q4 SL Last administered on 10/12/18 08:13; Admin Dose 2 MG; Start 09/28/18 at 09:30 IV Flush (NS 10 ml) 10 ml PRN PRN IV IV PROTOCOL; Start 09/30/18 at 19:30 Insulin Aspart (Novolog Insulin Pen) NOVOLOG *MILD* ALGORITHM WITH MEALS BEDTIME SC Last administered on 10/10/18 08:54; Admin Dose 1 UNIT; Start 10/01/18 at 21:00 Diagnostic Test (Pha) (Accu-Chek) 1 ea Q4 XX Last administered on 10/12/18 08:14; Admin Dose 1 EA; Start 10/03/18 at 13:00 Enoxaparin Sodium (Lovenox) 45 mg Q12 SC Last administered on 10/12/18 08:29; Admin Dose 45 MG; Start 10/08/18 at 21:00 Sodium Chloride 1,000 ml @ 50 mls/hr Q20H IV Last administered on 10/12/18 08:13; Admin Dose 50 MLS/HR; Start 10/12/18 at 07:30 JOSÉ MIGUEL THOMSON Oct 12, 2018 09:44
--- NOTE | 2018-10-12 09:55 | PN ---
DATE: 10/12/2018 SUBJECTIVE: The patient is stable, no events overnight. No fevers, chills, nausea, vomiting. OBJECTIVE: VITAL SIGNS: Blood pressure is 140/65, respiration 19, pulse 110, temperature 98.8. HEENT: Head is normocephalic. NECK: Supple. HEART: Regular rate. LUNGS: Show diminished breath sounds at the base. ABDOMEN: Soft, nontender to palpation without rebound or guarding. EXTREMITIES: Negative for clubbing, cyanosis, no edema. DERMATOLOGIC: No rashes. MUSCULOSKELETAL: No joint effusion. NEUROLOGIC: No change in exam. MEDICATIONS: Have been reviewed. LABORATORY DATA: Has been reviewed. IMAGING STUDIES: Have been reviewed. ASSESSMENT AND PLAN: 1. Nonoliguric acute kidney injury, etiology secondary to hemodynamics. Renal counts have improved. Continue to monitor. 2. Hyponatremia. Etiology may be secondary to syndrome of inappropriate antidiuretic hormone. Ques tionable component to hemodynamics. Will start the patient on intravenous hydration and monitor. 3. Metabolic alkalosis likely secondary to chloride deficiency, volume depletion. Will consider cou rse of IV hydration. 4. Anemia. Monitor hemoglobin and hematocrit levels. 5. Mineral bone disorder. Continue to monitor calcium and phosphorus levels. 6. Perforated terminal ileum. The patient is status post ileocolectomy with abscess drainage. Cont inue to monitor. Patient is advancing diet. Follow up with gastroenterology. 7. Sepsis, status post shock. Continue current regimen. 8. Acute hypoxic respiratory failure secondary to chronic obstructive pulmonary disease. Continue n ebulizers. 9. Nutrition. Continue to advance diet. Dictated By: RICHARD JIMENEZ/KAYLYN Conf#: [id number] DID#: [id number] CC: PEDRITO MUHAMMAD MD; STU ORTEZ;*EndCC*
--- NOTE | 2018-10-12 11:55 | PN ---
Date/Time of Note Date/Time of Note DATE: 10/12/18 TIME: 11:50 Assessment/Plan Lines/Catheters IV Catheter Type (from [facility]): PICC Line Cline in Place (from [facility]): No Assessment/Plan Chief Complaint/Hosp Course 1. Respiratory distress sp high flow oxygen; right pleural effusion with Right lung base consolidation -Per pulmonary -Oxygen supplementation as needed -Pulmonary toilet 2. Perforated terminal ileum with multiple abscesses, patient and son finally agreeable to surgery yesterday s/p lap > open ileocolectomy and drainage of abscesses (10/03).; With likely paralytic ileus-resolved -diet as tolerated -ambulate > PT -supportive -fluids -Continue drain care> may dc octaviano if continues to have low output -dc juarez, cont local line care 3. Sepsis (resolved), with persistent bandemia -as above 4. Acute renal insufficiency improved judicious fluid management -avoid nephrotoxic agents 5. Elevated transaminases, history of hep C -Monitor 6. NSTEMI with Persistent tachycardia (improving HR). -Consider cardiology consult -medical/cardiac optimization 7. Anemia status post PRBC transfusion, downtrending -monitor 8.Chronic methadone use: -pain mgt 9. Electrolyte imbalance: -Optimize electrolytes> per medical team Thank you. Patient seen and examined in collaboration with Dr. Naveed Schumacher. Subjective 24 Hr Interval Summary Feels well. Tolerating diet. No fevers, chills, sob, congested cough, cp, palpitations, savage, dizziness, n/v/d/dysuria. Exam/Review of Systems Vital Signs Vitals Vital Signs Date Temp Pulse Resp B/P (MAP) Pulse Ox O2 O2 Flow FiO2 Time Delivery Rate 10/12/18 98.6 106 20 126/76 97 Nasal 11:14 (93) Cannula 10/12/18 3.0 08:00 Intake and Output 10/11/18 10/11/18 10/12/18 1515:00 23:00 07:00 IntakeIntake Total 350 ml 220 ml OutputOutput Total 30 ml BalanceBalance 320 ml 220 ml Exam Free Text/Dictation Constitutional: alert, oriented, nad Psych: nl mood/affect; No anxiety Head: normocephalic, lacerations Eyes: nl conjunctiva, EOMI, PERRL; No icteric ENMT: nl external ears & nose, mucosa pink and moist Neck: supple, non-tender, jvd Respiratory: normal air movement; high flow No congested cough, No labored breathing Cardiovascular: regular rate and rhythm, No edema Gastrointestinal: soft, distended (min), min tender, octaviano serosang; No rebound, guarding, rigidity, midabdominal staple line- clean, min erythema inferior portion Musculoskeletal: nl extremities to inspection; No nl gait and stance, No joint tenderness Extremities: normal pulses Results Result Diagram: 10/11/18 1527 10/11/18 1527 RAFAEL EMERY NP Oct 12, 2018 11:55
--- NOTE | 2018-10-12 13:45 | CONS ---
Assessment/Plan Assessment/Plan Hospital Course (Demo Recall) POD#10 Alert feels good no fevers overnight tolerates regular diet Antimicrobials: none Indwelling: Left-sided ARFAL, PICC line, Cline catheter HEENT: Within normal limits. NECK: Supple. CHEST: Decreased breath sounds at the bases. HEART: S1 S2 ABDOMEN: Distended, bowel sounds hypoactive, mid abdominal dressing intact EXTREMITIES: Without cyanosis, clubbing, or edema. Assessment: 1. S/p acute hypoxemic respiratory failure 2. S/p sepsis with shock 3. Perforated bowel with multiple abscess and small bowel obstruction, status post laparotomy/open exploration 10/02/2018 4. HCAP===> treated 5. Non-ST elevation CT 6. COPD Plan: Stable, completed abx, will repeat cx's prn Consultation Date/Type/Reason Admit Date/Time Sep 15, 2018 at 03:32 Initial Consult Date 09/24/18 Type of Consult id Requesting Provider: LEOBARDO DC Date/Time of Note DATE: 10/12/18 TIME: 13:43 Exam/Review of Systems Exam Vitals Vital Signs Date Temp Pulse Resp B/P (MAP) Pulse Ox O2 O2 Flow FiO2 Time Delivery Rate 10/12/18 98.6 106 20 126/76 97 Nasal 11:14 (93) Cannula 10/12/18 3.0 08:00 Intake and Output 10/11/18 10/11/18 10/12/18 1515:00 23:00 07:00 IntakeIntake Total 350 ml 220 ml OutputOutput Total 30 ml BalanceBalance 320 ml 220 ml Results Result Diagram: 10/11/18 1527 10/11/18 1527 Results 24hrs Laboratory Tests Test 10/11/18 15:27 10/11/18 17:41 10/11/18 17:54 10/11/18 21:25 White Blood Count 9.4 Red Blood Count 3.05 L Hemoglobin 8.7 L Hematocrit 28.6 L Mean Corpuscular 93.8 Volume Mean Corpuscular 28.5 L Hemoglobin Mean Corpuscular 30.4 L Hemoglobin Concen t Red Cell 15.9 H Distribution Width Platelet Count 212 Mean Platelet 12.0 H Volume Immature 1.000 H Granulocytes % Neutrophils % 70.5 Lymphocytes % 16.6 Monocytes % 5.0 Eosinophils % 6.3 Basophils % 0.6 Nucleated Red 0.0 Blood Cells % Immature 0.090 H Granulocytes # Neutrophils # 6.6 Lymphocytes # 1.6 Monocytes # 0.5 Eosinophils # 0.6 H Basophils # 0.1 Nucleated Red 0.0 Blood Cells # Sodium Level 131 L Potassium Level 3.5 Chloride Level 91 L Carbon Dioxide 41 *H Level Anion Gap -1 L Blood Urea 6 L Nitrogen Creatinine 0.38 L Est Glomerular > 60 Filtrat Rate mL/min Glucose Level 102 Calcium Level 7.1 L Bedside Glucose 125 92 Blood Gas Blood arterial Specimen Source Arterial Blood 10/11/2018 7:15:2 Date Drawn 1 PM Arterial Blood pH 7.442 (Temp corrected) Arterial Blood 53.9 H pCO2 (Temp correct) Arterial Blood 91.5 pO2 (Temp corrected) Arterial Blood 36.0 H HCO3 Arterial Blood 10.6 H Base Excess Arterial Blood 97.4 Oxygen Saturation Flip Test ACCEPTAB Arterial Blood Right Radial Gas Puncture Site Arterial 0 Blood Carboxyhemo globin Arterial Blood 0.4 Methemoglobin Blood Gas A-a O2 37.3 H Differential Oxyhemoglobin 97.0 Percent Blood Gas 37.0 Temperature Blood Gas Actual 20 Respiration Rate Blood Gas NASAL CANNULA Modality FiO2 27.0 Blood Gas S.H. Notified Whom Blood Gas 10/11/2018 7:28:2 Notified Time 4 PM Test 10/12/18 07:35 10/12/18 09:30 10/12/18 11:31 Bedside Glucose 87 151 Phosphorus Level 3.1 Magnesium Level 1.5 L Medications Medication Current Medications IV Flush (NS 3 ml) 3 ml PER PROTOCOL IV ; Start 09/15/18 at 07:30 Ondansetron HCl (Zofran Inj) 4 mg Q6H PRN IV NAUSEA/VOMITING Last administered on 10/09/18at 12:45; Admin Dose 4 MG; Start 09/15/18 at 07:30 Acetaminophen (Tylenol Tab) 650 mg Q6H PRN PO .PAIN 1-3 OR TEMP Last administered on 09/16/18at 21:56; Admin Dose 650 MG; Start 09/15/18 at 07:30 Baclofen (Lioresal) 10 mg BID PO Last administered on 09/23/18at 09:45; Admin Dose 10 MG; Start 09/15/18 at 09:00; Status Hold Buspirone HCl (Buspar) 10 mg BID PO Last administered on 09/23/18 11:44; Admin Dose 10 MG; Start 09/15/18 at 09:00; Status Hold Calcium Carbonate (Oyster Shell Calcium) 1.25 gm BID PO Last administered on 09/23/18 11:44; Admin Dose 1.25 GM; Start 09/15/18 at 09:00; Status Hold Clonazepam (Klonopin) 0.5 mg DAILY PRN PO ANXIETY Last administered on 09/23/18 02:04; Admin Dose 0.5 MG; Start 09/15/18 at 07:30; Status Hold Docusate Sodium (Colace) 100 mg BID PO Last administered on 09/23/18 09:43; Admin Dose 100 MG; Start 09/15/18 at 09:00; Status Hold Rifaximin (Xifaxan) 550 mg BID PO Last administered on 09/22/18 21:42; Admin Dose 550 MG; Start 09/15/18 at 09:00; Status Hold Sertraline HCl (Zoloft) 100 mg DAILY PO ; Start 09/15/18 at 09:00; Status Hold Fluticasone/ Vilanterol (Breo Ellipta 200-25 Mcg Inh) 1 inh DAILY INH Last administered on 10/12/18 08:14; Admin Dose 1 INH; Start 09/15/18 at 09:00 Albuterol/ Ipratropium (Duoneb) 3 ml Q3H RESP THERAPY PRN HHN WHEEZING AND SOB Last administered on 09/21/18 21:08; Admin Dose 3 ML; Start 09/15/18 at 08:00 Levalbuterol (Xopenex Neb) 0.63 mg Q4H RESP THERAPY HHN Last administered on 10/11/18 17:07; Admin Dose 0.63 MG; Start 09/15/18 at 17:00 Levalbuterol (Xopenex Neb) 0.63 mg Q2H RESP THERAPY PRN HHN WHEEZING AND SOB; Start 09/15/18 at 14:00 Collagenase (Santyl) 1 applic DAILY TOP Last administered on 10/12/18 08:13; Admin Dose 1 APPLIC; Start 09/16/18 at 15:00 Multivitamins Therapeutic (Theragran) 1 tab DAILY PO Last administered on 8/14/19at 08:13; Admin Dose 1 TAB; Start 09/19/18 at 12:00 Ascorbic Acid (Vitamin C) 500 mg DAILY PO Last administered on 09/23/18 09:45; Admin Dose 500 MG; Start 09/19/18 at 12:00; Status Hold Zinc Sulfate (Zinc Sulfate) 220 mg DAILY PO Last administered on 09/22/18 08:50; Admin Dose 220 MG; Start 09/19/18 at 12:00; Status Hold Thiamine HCl (Vitamin B1) 50 mg DAILY PO Last administered on 09/23/18 09:45; Admin Dose 50 MG; Start 09/19/18 at 12:00; Status Hold Simethicone (Mylicon) 80 mg Q6H PRN PO DISTENSION/GAS/BLOATING Last administered on 10/08/18 12:18; Admin Dose 80 MG; Start 09/20/18 at 06:30 Diltiazem HCl (Cardizem Cd) 120 mg DAILY PO Last administered on 09/23/18 11:41; Admin Dose 120 MG; Start 09/20/18 at 09:00; Status Hold Zolpidem Tartrate (Ambien) 5 mg HS PRN PO INSOMNIA Last administered on 09/24/18 01:16; Admin Dose 5 MG; Start 09/21/18 at 02:00; Status Hold Phenol (Cepastat Lozenge) 1 lozenge Q1H PRN MT SORE THROAT Last administered on 09/22/18 03:32; Admin Dose 1 LOZENGE; Start 09/22/18 at 01:00 Hydromorphone HCl (Dilaudid) 0.5 mg Q4H PRN IV SEVERE PAIN LEVEL 7-10 Last administered on 10/12/18 13:31; Admin Dose 0.5 MG; Start 09/24/18 at 03:00 Lorazepam (Ativan) 0.5 mg Q6H PRN IV ANXIETY Last administered on 10/10/18 20:57; Admin Dose 0.5 MG; Start 09/24/18 at 03:00 Pantoprazole (Protonix Iv) 40 mg BID@,18 IV Last administered on 10/12/18 06:27; Admin Dose 40 MG; Start 09/24/18 at 18:00 Miscellaneous Information 1 ea NOTE XX ; Start 09/25/18 at 22:00 Glucose (Glutose) 15 gm Q15M PRN PO DECREASED GLUCOSE Last administered on 10/10/18 06:27; Admin Dose 15 GM; Start 09/25/18 at 22:00 Glucose (Glutose) 22.5 gm Q15M PRN PO DECREASED GLUCOSE; Start 09/25/18 at 22:00 Dextrose (D50w Syringe) 25 ml Q15M PRN IV DECREASED GLUCOSE Last administered on 10/09/18at 22:51; Admin Dose 25 ML; Start 09/25/18 at 22:00 Dextrose (D50w Syringe) 50 ml Q15M PRN IV DECREASED GLUCOSE Last administered on 10/10/18 06:50; Admin Dose 50 ML; Start 09/25/18 at 22:00 Glucagon (Glucagen) 1 mg Q15M PRN IM DECREASED GLUCOSE; Start 09/25/18 at 22:00 Glucose (Glutose) 15 gm Q15M PRN BUCCAL DECREASED GLUCOSE; Start 09/25/18 at 22:00 Methadone HCl (Methadone Liq) 2 mg Q4 SL Last administered on 10/12/18 13:30; Admin Dose 2 MG; Start 09/28/18 at 09:30 IV Flush (NS 10 ml) 10 ml PRN PRN IV IV PROTOCOL; Start 09/30/18 at 19:30 Insulin Aspart (Novolog Insulin Pen) NOVOLOG *MILD* ALGORITHM WITH MEALS BEDTIME SC Last administered on 10/12/18 11:35; Admin Dose 1 UNIT; Start 10/01/18 at 21:00 Diagnostic Test (Pha) (Accu-Chek) 1 ea Q4 XX Last administered on 10/12/18 13:20; Admin Dose 1 EA; Start 10/03/18 at 13:00 Enoxaparin Sodium (Lovenox) 45 mg Q12 SC Last administered on 10/12/18 08:29; Admin Dose 45 MG; Start 10/08/18 at 21:00 Sodium Chloride 1,000 ml @ 50 mls/hr Q20H IV Last administered on 10/12/18 08:13; Admin Dose 50 MLS/HR; Start 10/12/18 at 07:30 SKY BENAVIDES NP Oct 12, 2018 13:45
[2018-10-12] MEDS ORDERED: MAGNESIUM SULFATE 2 GM/50 ML 50 ML IVPB ONE (14:30)
--- NOTE | 2018-10-12 14:49 | PN ---
Date/Time of Note Date/Time of Note DATE: 10/12/18 TIME: 14:37 Assessment/Plan VTE Prophylaxis Risk score (from Ns)>0 risk: 16 SCD applied (from Ns): No SCD contraindicated: other Pharmacological prophylaxis: LMWH Lines/Catheters IV Catheter Type (from Nrsg): PICC Line Central line still needed: Yes Urinary Cath still in place: No Assessment/Plan Hospital Course S: Patient seen by multiple consultants today. Tolerating diet. Juan were removed earlier today as well. O: VS- see below PE: Gen: Lying in bed Head: Atraumatic Eyes: Normal Conjunctiva ENT: Normal External Ears, Nose and Mouth. Neck: Full range of motion. No meningismus. Resp: Clear to auscultation bilaterally Cardio: Regular rate and rhythm, no murmurs Abd: Soft, non tender, non distended. Normal bowel sounds Ext: No bilateral lower extremity edema Neuro: No focal deficits Assessment/Plan: 68-year-old woman with history of COPD, PE in May 2018, CKD, admitted for COPD exacerbation and found to have ileum perforation with abdominal abscess. #Small bowel perforation -found also with abdominal abscess- Weeks of abdominal distension, tenderness, bloating- CT on 09/23 first showed pneumoperitoneum, taken to OR by Dr. Schumacher on 10/02, found to have perforated terminal ileum with abdominal abscess s/p drainage. - ID following, completed antibiotics now, monitor, follow further recommendations from ID team - Continue current diet per surgery recommendations, monitor labs #Anemia- Likely due to abdominal perforation. Received PRBC transfusion earlier this admission. Hemoglobin presently stable. - Monitor, transfuse to Hgb >7 or for symptomatic anemia # Hypoxic and hypercapnic respiratory failure: Resolved - PE in May 2018, had been on Lovenox years since October 08, now will transition back to Eliquis - Had hypoxemic episode on 10/05, likely due to benzodiazepines - Now on nasal cannula. Goal sat 88-92%. - Monitor, will stop Lovenox and switch back to Eliquis now, follow up pulmonary recommendations #MRSA colonization of the nares- s/p mupirocin - Monitor for now GI: PPI DVT: lovenox Dispo: Advance diet, begin ambulating per PT recommendations, plan for SNF placement - case management presently working on this Result Diagram: 10/11/18 1527 10/11/18 1527 Results 24hrs Laboratory Tests Test 10/11/18 15:27 10/11/18 17:41 10/11/18 17:54 10/11/18 21:25 White Blood Count 9.4 Red Blood Count 3.05 L Hemoglobin 8.7 L Hematocrit 28.6 L Mean Corpuscular 93.8 Volume Mean Corpuscular 28.5 L Hemoglobin Mean Corpuscular 30.4 L Hemoglobin Concen t Red Cell 15.9 H Distribution Width Platelet Count 212 Mean Platelet 12.0 H Volume Immature 1.000 H Granulocytes % Neutrophils % 70.5 Lymphocytes % 16.6 Monocytes % 5.0 Eosinophils % 6.3 Basophils % 0.6 Nucleated Red 0.0 Blood Cells % Immature 0.090 H Granulocytes # Neutrophils # 6.6 Lymphocytes # 1.6 Monocytes # 0.5 Eosinophils # 0.6 H Basophils # 0.1 Nucleated Red 0.0 Blood Cells # Sodium Level 131 L Potassium Level 3.5 Chloride Level 91 L Carbon Dioxide 41 *H Level Anion Gap -1 L Blood Urea 6 L Nitrogen Creatinine 0.38 L Est Glomerular > 60 Filtrat Rate mL/min Glucose Level 102 Calcium Level 7.1 L Bedside Glucose 125 92 Blood Gas Blood arterial Specimen Source Arterial Blood 10/11/2018 7:15:2 Date Drawn 1 PM Arterial Blood pH 7.442 (Temp corrected) Arterial Blood 53.9 H pCO2 (Temp correct) Arterial Blood 91.5 pO2 (Temp corrected) Arterial Blood 36.0 H HCO3 Arterial Blood 10.6 H Base Excess Arterial Blood 97.4 Oxygen Saturation Flip Test ACCEPTAB Arterial Blood Right Radial Gas Puncture Site Arterial 0 Blood Carboxyhemo globin Arterial Blood 0.4 Methemoglobin Blood Gas A-a O2 37.3 H Differential Oxyhemoglobin 97.0 Percent Blood Gas 37.0 Temperature Blood Gas Actual 20 Respiration Rate Blood Gas NASAL CANNULA Modality FiO2 27.0 Blood Gas S.H. Notified Whom Blood Gas 10/11/2018 7:28:2 Notified Time 4 PM Test 10/12/18 07:35 10/12/18 09:30 10/12/18 11:31 Bedside Glucose 87 151 Phosphorus Level 3.1 Magnesium Level 1.5 L Exam/Review of Systems Exam Vitals Vital Signs Date Temp Pulse Resp B/P (MAP) Pulse Ox O2 O2 Flow FiO2 Time Delivery Rate 10/12/18 98.6 106 20 126/76 97 Nasal 11:14 (93) Cannula 10/12/18 3.0 08:00 Intake and Output 10/11/18 10/11/18 10/12/18 1515:00 23:00 07:00 IntakeIntake Total 350 ml 220 ml OutputOutput Total 30 ml BalanceBalance 320 ml 220 ml Results Results 24hrs Laboratory Tests Test 10/11/18 15:27 10/11/18 17:41 10/11/18 17:54 10/11/18 21:25 White Blood Count 9.4 Red Blood Count 3.05 L Hemoglobin 8.7 L Hematocrit 28.6 L Mean Corpuscular 93.8 Volume Mean Corpuscular 28.5 L Hemoglobin Mean Corpuscular 30.4 L Hemoglobin Concen t Red Cell 15.9 H Distribution Width Platelet Count 212 Mean Platelet 12.0 H Volume Immature 1.000 H Granulocytes % Neutrophils % 70.5 Lymphocytes % 16.6 Monocytes % 5.0 Eosinophils % 6.3 Basophils % 0.6 Nucleated Red 0.0 Blood Cells % Immature 0.090 H Granulocytes # Neutrophils # 6.6 Lymphocytes # 1.6 Monocytes # 0.5 Eosinophils # 0.6 H Basophils # 0.1 Nucleated Red 0.0 Blood Cells # Sodium Level 131 L Potassium Level 3.5 Chloride Level 91 L Carbon Dioxide 41 *H Level Anion Gap -1 L Blood Urea 6 L Nitrogen Creatinine 0.38 L Est Glomerular > 60 Filtrat Rate mL/min Glucose Level 102 Calcium Level 7.1 L Bedside Glucose 125 92 Blood Gas Blood arterial Specimen Source Arterial Blood 10/11/2018 7:15:2 Date Drawn 1 PM Arterial Blood pH 7.442 (Temp corrected) Arterial Blood 53.9 H pCO2 (Temp correct) Arterial Blood 91.5 pO2 (Temp corrected) Arterial Blood 36.0 H HCO3 Arterial Blood 10.6 H Base Excess Arterial Blood 97.4 Oxygen Saturation Flip Test ACCEPTAB Arterial Blood Right Radial Gas Puncture Site Arterial 0 Blood Carboxyhemo globin Arterial Blood 0.4 Methemoglobin Blood Gas A-a O2 37.3 H Differential Oxyhemoglobin 97.0 Percent Blood Gas 37.0 Temperature Blood Gas Actual 20 Respiration Rate Blood Gas NASAL CANNULA Modality FiO2 27.0 Blood Gas S.H. Notified Whom Blood Gas 10/11/2018 7:28:2 Notified Time 4 PM Test 10/12/18 07:35 10/12/18 09:30 10/12/18 11:31 Bedside Glucose 87 151 Phosphorus Level 3.1 Magnesium Level 1.5 L Medications Medication Current Medications IV Flush (NS 3 ml) 3 ml PER PROTOCOL IV ; Start 09/15/18 at 07:30 Ondansetron HCl (Zofran Inj) 4 mg Q6H PRN IV NAUSEA/VOMITING Last administered on 10/09/18 12:45; Admin Dose 4 MG; Start 09/15/18 at 07:30 Acetaminophen (Tylenol Tab) 650 mg Q6H PRN PO .PAIN 1-3 OR TEMP Last administer ed on 09/16/18 21:56; Admin Dose 650 MG; Start 09/15/18 at 07:30 Baclofen (Lioresal) 10 mg BID PO Last administered on 09/23/18 09:45; Admin Dose 10 MG; Start 09/15/18 at 09:00; Status Hold Buspirone HCl (Buspar) 10 mg BID PO Last administered on 09/23/18 11:44; Admin Dose 10 MG; Start 09/15/18 at 09:00; Status Hold Calcium Carbonate (Oyster Shell Calcium) 1.25 gm BID PO Last administered on 09/23/18 11:44; Admin Dose 1.25 GM; Start 09/15/18 at 09:00; Status Hold Clonazepam (Klonopin) 0.5 mg DAILY PRN PO ANXIETY Last administered on 09/23/18 02:04; Admin Dose 0.5 MG; Start 09/15/18 at 07:30; Status Hold Docusate Sodium (Colace) 100 mg BID PO Last administered on 09/23/18 09:43; Admin Dose 100 MG; Start 09/15/18 at 09:00; Status Hold Rifaximin (Xifaxan) 550 mg BID PO Last administered on 09/22/18 21:42; Admin Dose 550 MG; Start 09/15/18 at 09:00; Status Hold Sertraline HCl (Zoloft) 100 mg DAILY PO ; Start 09/15/18 at 09:00; Status Hold Fluticasone/ Vilanterol (Breo Ellipta 200-25 Mcg Inh) 1 inh DAILY INH Last administered on 10/12/18 08:14; Admin Dose 1 INH; Start 09/15/18 at 09:00 Albuterol/ Ipratropium (Duoneb) 3 ml Q3H RESP THERAPY PRN HHN WHEEZING AND SOB Last administered on 09/21/18 21:08; Admin Dose 3 ML; Start 09/15/18 at 08:00 Levalbuterol (Xopenex Neb) 0.63 mg Q4H RESP THERAPY HHN Last administered on 10/11/18 17:07; Admin Dose 0.63 MG; Start 09/15/18 at 17:00 Levalbuterol (Xopenex Neb) 0.63 mg Q2H RESP THERAPY PRN HHN WHEEZING AND SOB; Start 09/15/18 at 14:00 Collagenase (Santyl) 1 applic DAILY TOP Last administered on 10/12/18 08:13; Admin Dose 1 APPLIC; Start 09/16/18 at 15:00 Multivitamins Therapeutic (Theragran) 1 tab DAILY PO Last administered on 10/12/18 08:13; Admin Dose 1 TAB; Start 09/19/18 at 12:00 Ascorbic Acid (Vitamin C) 500 mg DAILY PO Last administered on 09/23/18 09:45; Admin Dose 500 MG; Start 09/19/18 at 12:00; Status Hold Zinc Sulfate (Zinc Sulfate) 220 mg DAILY PO Last administered on 09/22/18 08:50; Admin Dose 220 MG; Start 09/19/18 at 12:00; Status Hold Thiamine HCl (Vitamin B1) 50 mg DAILY PO Last administered on 09/23/18 09:45; Admin Dose 50 MG; Start 09/19/18 at 12:00; Status Hold Simethicone (Mylicon) 80 mg Q6H PRN PO DISTENSION/GAS/BLOATING Last administered on 10/08/18 12:18; Admin Dose 80 MG; Start 09/20/18 at 06:30 Diltiazem HCl (Cardizem Cd) 120 mg DAILY PO Last administered on 09/23/18 11:41; Admin Dose 120 MG; Start 09/20/18 at 09:00; Status Hold Zolpidem Tartrate (Ambien) 5 mg HS PRN PO INSOMNIA Last administered on 09/24/18 01:16; Admin Dose 5 MG; Start 09/21/18 at 02:00; Status Hold Phenol (Cepastat Lozenge) 1 lozenge Q1H PRN MT SORE THROAT Last administered on 09/22/18at 03:32; Admin Dose 1 LOZENGE; Start 09/22/18 at 01:00 Hydromorphone HCl (Dilaudid) 0.5 mg Q4H PRN IV SEVERE PAIN LEVEL 7-10 Last administered on 10/12/18 13:31; Admin Dose 0.5 MG; Start 09/24/18 at 03:00 Lorazepam (Ativan) 0.5 mg Q6H PRN IV ANXIETY Last administered on 10/10/18 20:57; Admin Dose 0.5 MG; Start 09/24/18 at 03:00 Pantoprazole (Protonix Iv) 40 mg BID@,18 IV Last administered on 10/12/18 06:27; Admin Dose 40 MG; Start 09/24/18 at 18:00 Miscellaneous Information 1 ea NOTE XX ; Start 09/25/18 at 22:00 Glucose (Glutose) 15 gm Q15M PRN PO DECREASED GLUCOSE Last administered on 10/10/18at 06:27; Admin Dose 15 GM; Start 09/25/18 at 22:00 Glucose (Glutose) 22.5 gm Q15M PRN PO DECREASED GLUCOSE; Start 09/25/18 at 22:00 Dextrose (D50w Syringe) 25 ml Q15M PRN IV DECREASED GLUCOSE Last administered on 10/09/18at 22:51; Admin Dose 25 ML; Start 09/25/18 at 22:00 Dextrose (D50w Syringe) 50 ml Q15M PRN IV DECREASED GLUCOSE Last administered on 10/10/18at 06:50; Admin Dose 50 ML; Start 09/25/18 at 22:00 Glucagon (Glucagen) 1 mg Q15M PRN IM DECREASED GLUCOSE; Start 09/25/18 at 22:00 Glucose (Glutose) 15 gm Q15M PRN BUCCAL DECREASED GLUCOSE; Start 09/25/18 at 22:00 Methadone HCl (Methadone Liq) 2 mg Q4 SL Last administered on 10/12/18 13:30; Admin Dose 2 MG; Start 09/28/18 at 09:30 IV Flush (NS 10 ml) 10 ml PRN PRN IV IV PROTOCOL; Start 09/30/18 at 19:30 Insulin Aspart (Novolog Insulin Pen) NOVOLOG *MILD* ALGORITHM WITH MEALS BEDTIME SC Last administered on 10/12/18at 11:35; Admin Dose 1 UNIT; Start 10/01/18 at 21:00 Diagnostic Test (Pha) (Accu-Chek) 1 ea Q4 XX Last administered on 10/12/18at 13:20; Admin Dose 1 EA; Start 10/03/18 at 13:00 Enoxaparin Sodium (Lovenox) 45 mg Q12 SC Last administered on 10/12/18at 08:29; Admin Dose 45 MG; Start 10/08/18 at 21:00 Sodium Chloride 1,000 ml @ 50 mls/hr Q20H IV Last administered on 10/12/18at 08:13; Admin Dose 50 MLS/HR; Start 10/12/18 at 07:30 Magnesium Sulfate 50 ml @ 25 mls/hr ONCE ONCE IVPB ; Start 10/12/18 at 14:30; Stop 10/12/18 at 16:29 STU ORTEZ Oct 12, 2018 14:49
[2018-10-12] MEDS: LORAZEPAM 2 MG INJ IV PRN (18:20)
[2018-10-13] MEDS: ACCU-CHEK XX SCH ×5 (00:17→17:47)
[2018-10-13] MEDS: METHADONE (1 MG/ML 5 ML PO UD SYG) SL SCH ×5 (00:19→17:26)
[2018-10-13] MEDS: LORAZEPAM 2 MG INJ IV PRN ×2 (00:20→14:00)
[2018-10-13] MEDS: LEVALBUTEROL (NEB) 0.63 MG/3 ML AMP HHN SCH ×6 (01:00→20:09)
[2018-10-13] MEDS: SOD CHLORIDE 0.9% 1,000 ML IV SCH ×2 (03:18→04:35)
[2018-10-13] MEDS: HYDROmorphONE 0.5 MG/0.5 ML SYG IV PRN ×2 (04:31→09:01)
[2018-10-13 05:10] VITALS: BP 118/58; RESP 20
[2018-10-13] MEDS: PANTOPRAZOLE 40 MG INJ IV SCH ×2 (06:17→18:11)
[2018-10-13 07:33] VITALS: BP 114/65; PULSE 111; RESP 18
[2018-10-13] MEDS: INSULIN ASPART [NOVOLOG] 3 ML PEN SC SCH ×3 (07:55→17:44)
[2018-10-13] MEDS: MULTIVITAMINS THERAPEUTIC TAB PO SCH (08:56)
[2018-10-13] MEDS: FLUTICASONE/VILANTEROL 200-25 INH DEVICE INH SCH (08:57)
[2018-10-13] MEDS: BALSAM PERU/CASTOR OIL 60 GM TUBE TOP SCH (09:02)
[2018-10-13] MEDS: COLLAGENASE 5 GM (UD JAR) TOP SCH (09:02)
--- NOTE | 2018-10-13 10:52 | PN ---
DATE: 10/13/2018 SUBJECTIVE: The patient is stable. No events overnight. OBJECTIVE: VITAL SIGNS: Blood pressure is 114/65, pulse 111, respiration 18, temperature 98.2. HEENT: Head is normocephalic. NECK: Supple. HEART: Regular rate. LUNGS: Show diminished breath sounds at the base. ABDOMEN: Soft, nontender to palpation without rebound or guarding. EXTREMITIES: Negative for clubbing, cyanosis, no edema. DERMATOLOGIC: No rashes. MUSCULOSKELETAL: No joint effusion. NEUROLOGIC: No change in exam. MEDICATIONS: Have been reviewed. LABORATORY DATA: Has been reviewed. IMAGING STUDIES: Have been reviewed. ASSESSMENT AND PLAN: 1. Nonoliguric acute kidney injury. Etiology is secondary to hemodynamics. Renal function has been fluctuating. Continue to monitor. 2. Hyponatremia. Etiology may be secondary to syndrome of inappropriate antidiuretic hormone secret ion versus hemodynamics. Continue IV hydration. Monitor sodium levels. 3. Metabolic alkalosis. Continue IV fluids and monitor. 4. Anemia. Monitor hemoglobin and hematocrit levels. 5. Mineral bone disorder. Monitor calcium and phosphorus levels. 6. Perforated terminal ileum. The patient is status post ileocolectomy with abscess drainage. Cont inue to monitor. The patient's diet is advancing. 7. Sepsis, status post shock. Continue current regimen. 8. Acute hypoxemic respiratory failure secondary to chronic obstructive pulmonary disease. Continue nebulizers. 9. Nutrition. Continue to advance diet. Dictated By: RICAHRD ORTIZ DO NR/NTS Conf#: [id number] DID#: [id number] CC: GERALDO VARGAS MD;*EndCC*
--- NOTE | 2018-10-13 11:19 | PDOCDIS ---
Discharge Instructions CONDITION [id number] Patient Condition: [id number] Stable HOME CARE INSTRUCTIONS: [id number] Diet Instructions: [id number] Low Fat /Cholesterol STU ORTEZ Oct 13, 2018 11:19
[2018-10-13 11:21] VITALS: BP 120/65; PULSE 110; RESP 22
--- NOTE | 2018-10-13 11:27 | DS ---
Date/Time of Note Date/Time of Note DATE: 10/13/18 TIME: 11:22 Discharge Summary Admission/Discharge Info Admit Date/Time Sep 15, 2018 at 03:32 Discharge Date/Time Discharge Diagnosis #Small bowel perforation -found also with abdominal abscess- Weeks of abdominal distension, tenderness, bloating- CT on 09/23 first showed pneumoperitoneum, taken to OR by Dr. Schumacher on 10/02, found to have perforated terminal ileum with abdominal abscess s/p drainage. #Anemia- Likely due to abdominal perforation. Received PRBC transfusion earlier this admission. Hemoglobin presently stable. # Hypoxic and hypercapnic respiratory failure: Resolved - PE in May 2018, back on Eliquis #MRSA colonization of the nares Patient Condition: Stable Procedures Date/Time of Note Date/Time of Note DATE: 10/02/18 TIME: 23:41 Operative Report Free Text/Dictation Preoperative Diagnosis: Worsening bandemia Partial versus high-grade obstruction Recent bowel perforation, questionable sealed Worsening ascites Questionable abscesses Postoperative Diagnosis: Perforated terminal ileum with multiple abscesses Significant ascites Small bowel obstruction Operation(s) Performed: 1. Laparoscopic converted to mini laparotomy/open exploration 2. Right ileo-right colectomy 3. Scopic drainage of pelvic and right lower quadrant abscesses 4. [place], [id number] 5. Laparoscopic guided bilateral transversus abdominis plane block Hospital Course Patient was admitted and seen by multiple specialists during his hospital stay including pulmonary, general surgery, infectious disease, palliative care, and renal teams. Patient was treated for renal insufficiency. More importantly patient was found with small bowel perforation and also abdominal abscesses. She was placed on antibiotics and was taken to OR by Dr. Schumacher on 10/02, found to have perforated terminal ileum with abdominal abscess s/p drainage. Patient tolerated the procedure well. Afterwards she continued on antibiotics. Patient continued on anticoagulation for the history of PE that was diagnosed before this admission. Patient also needed PRBC transfusion for some mild anemia, after this hemoglobin stayed stable. Patient is back at baseline status, diet was advanced cautiously by the surgery team and the patient tolerated that. Patient will be discharged to alf facility today later today in improved condition. Please see printed medicine reconciliation sheet for full list of discharge medications. Home Meds Active Scripts Pantoprazole* (Pantoprazole*) 40 Mg Tablet., 40 MG PO DAILY@06 for 14 Days, #14 Prov:RICKIE DALTON MD 06/12/18 Apixaban* (Eliquis*) 5 Mg Tablet, 10 MG PO BID for 30 Days, #60 TAB 10 mg twice daily for 5 days, then 5 mg twice daily Prov:RICKIE DALTON MD 06/12/18 Methadone Hcl* (Methadone*) 5 Mg/5 Ml Solution, 68 MG PO DAILY for 30 Days, ML Prov:STU ORTEZ. 04/14/18 Salmeterol Xinaf/Fluticasone* (Advair*) 250-50 Diskus Inhaler, 1 INH INHALATION BID for 30 Days, #1 INHALER Prov:ZHANG WARE NP 02/28/16 Albuterol Sulfate* (Proair HFA*) 8.5 Gm Hfa.aer.ad, 2 PUFF INH Q6 for SHORTNESS OF BREATH for 14 Days, #1 INHALER Prov:ZHANG WARE [employer] 02/28/16 Reported Medications Sertraline Hcl* (Sertraline Hcl*) 25 Mg Tablet, 25 MG PO DAILY, #30 TAB 09/15/18 Buspirone Hcl* (Buspirone Hcl*) 10 Mg Tab, 10 MG PO BID, TAB 09/15/18 Clonazepam* (Clonazepam*) 0.5 Mg Tablet, 0.5 MG PO DAILY PRN for ANXIETY, TAB 09/15/18 Ipratropium-Albuterol (Ipratropium-Albuterol) 0.5-3 Mg/3 Ml Ampul.neb, 3 ML INHALATION Q6 PRN for WHEEZING AND SOB, #30 VIAL 09/15/18 Carvedilol* (Carvedilol*) 6.25 Mg Tablet, 6.25 MG PO BID, #60 TAB 09/15/18 Cholecalciferol (Vitamin D3) (VITAMIN D-3) 2,000 Unit Capsule, 2000 U PO DAILY for 30 Days 04/30/18 Amlodipine Besylate* (Amlodipine Besylate*) 5 Mg Tablet, 5 MG PO DAILY for 30 Days, #30 04/30/18 Baclofen* (Baclofen*) 10 Mg Tablet, 10 MG PO BID 04/30/18 Calcium Carbonate ([id number]) 500 Mg Tablet, 500 MG PO BID, TAB 04/30/18 Primary Care Provider Lewis Harmon Time spent on discharge: > 30 minutes Pending Labs Laboratory Tests Test 10/12/18 11:31 10/12/18 17:05 10/12/18 20:15 10/13/18 00:16 Bedside 151 138 97 137 Glucose mg/dL (70-220) mg/dL (70-220) mg/dL (70-220) mg/dL (70-220) Test 10/13/18 04:31 10/13/18 08:55 10/13/18 10:17 Bedside 90 91 Glucose mg/dL (70-220) mg/dL (70-220) White Blood 11.9 Count 10^3/ul (4.8-1 0.8) Red Blood 3.24 Count 10^6/ul (4.20- 5.40) Hemoglobin 9.2 g/dl (12.0-16. 0) Hematocrit 30.1 % (37.0-47.0) Mean 92.9 Corpuscular fl (82.0-101.0 Volume ) Mean 28.4 Corpuscular pg (29.0-33.0) Hemoglobin Mean 30.6 Corpuscular g/dl (32.0-37. Hemoglobin Conc 0) ent Red Cell 16.0 Distribution % (11.5-14.5) Width Platelet Count 336 10^3/UL (140-4 15) Mean Platelet 11.6 Volume fl (7.4-10.4) Immature 0.600 Granulocytes % % (0.001-0.429 ) Neutrophils % % (39.0-77.0) Lymphocytes % % (15.0-51.0) Monocytes % % (0.0-11.0) Eosinophils % % (0.0-7.0) Basophils % % (0.0-2.0) Nucleated Red 0.0 Blood Cells % /100WBC (0.0-0 .0) Immature 0.070 Granulocytes # 10^3/ul (0.0-0 .031) Neutrophils # 10^3/ul (1.6-7 .5) Lymphocytes # 10^3/ul (0.8-2 .9) Monocytes # 10^3/ul (0.3-0 .9) Eosinophils # 10^3/ul (0.0-0 .5) Basophils # 10^3/ul (0.0-0 .1) Nucleated Red 10^3/ul (0.0-0 Blood Cells # .0) STU ORTEZ Oct 13, 2018 11:27
--- NOTE | 2018-10-13 12:12 | CONS ---
Consult Date/Type/Reason Admit Date/Time Sep 15, 2018 at 03:32 Initial Consult Date 09/15/18 Type of Consult Pulmonary Requesting Provider: LEOBARDO DC Date/Time of Note DATE: 10/13/18 TIME: 12:11 Subjective Stable this morning no respiratory distress Objective Vital Signs Date Temp Pulse Resp B/P (MAP) Pulse Ox O2 O2 Flow FiO2 Time Delivery Rate 10/13/18 98.0 110 22 120/65 97 Nasal 11:21 (83) Cannula 10/13/18 3.0 08:30 Intake and Output 10/12/18 10/12/18 10/13/18 1515:00 23:00 07:00 IntakeIntake Total 200 ml 300 ml BalanceBalance 200 ml 300 ml Exam GENERAL: VITAL SIGNS: Elderly lady comfortable at rest with no acute distress NECK: Supple. No JVD or lymphadenopathy. CARDIAC EXAM: S1, S2. No added sounds or murmurs. CHEST: clear bilaterally, No added sounds, rales or wheezes ABDOMEN: Soft, nontender. No guarding or rebound. EXTREMITIES: No cyanosis, clubbing or edema. NEUROLOGIC: Generalized weakness. No focal deficits. Vent Setting Fraction of Inspired Oxygen pe: 30 Results/Medications Result Diagram: 10/13/18 1017 10/13/18 1017 Results 24 hrs Laboratory Tests Test 10/12/18 17:05 10/12/18 20:15 10/13/18 00:16 10/13/18 04:31 Bedside Glucose 138 97 137 90 Test 10/13/18 08:55 10/13/18 10:17 Bedside Glucose 91 White Blood Count 11.9 #H Red Blood Count 3.24 L Hemoglobin 9.2 L Hematocrit 30.1 L Mean Corpuscular 92.9 Volume Mean Corpuscular 28.4 L Hemoglobin Mean Corpuscular 30.6 L Hemoglobin Concent Red Cell 16.0 H Distribution Width Platelet Count 336 # Mean Platelet Volume 11.6 H Immature 0.600 H Granulocytes % Neutrophils % Lymphocytes % Monocytes % Eosinophils % Basophils % Nucleated Red Blood 0.0 Cells % Immature 0.070 H Granulocytes # Neutrophils # Lymphocytes # Monocytes # Eosinophils # Basophils # Nucleated Red Blood Cells # Sodium Level 132 L Potassium Level 3.4 L Chloride Level 93 L Carbon Dioxide Level 35 H Anion Gap 4 L Blood Urea Nitrogen 7 Creatinine 0.47 Est Glomerular > 60 Filtrat Rate mL/min Glucose Level 100 Calcium Level 7.3 L Phosphorus Level 3.3 Magnesium Level 1.9 Medications Current Medications IV Flush (NS 3 ml) 3 ml PER PROTOCOL IV ; Start 09/15/18 at 07:30 Ondansetron HCl (Zofran Inj) 4 mg Q6H PRN IV NAUSEA/VOMITING Last administered on 10/09/18 12:45; Admin Dose 4 MG; Start 09/15/18 at 07:30 Acetaminophen (Tylenol Tab) 650 mg Q6H PRN PO .PAIN 1-3 OR TEMP Last administered on 09/16/18 21:56; Admin Dose 650 MG; Start 09/15/18 at 07:30 Baclofen (Lioresal) 10 mg BID PO Last administered on 09/23/18 09:45; Admin Dose 10 MG; Start 09/15/18 at 09:00; Status Hold Buspirone HCl (Buspar) 10 mg BID PO Last administered on 09/23/18 11:44; Admin Dose 10 MG; Start 09/15/18 at 09:00; Status Hold Calcium Carbonate (Oyster Shell Calcium) 1.25 gm BID PO Last administered on 09/23/18 11:44; Admin Dose 1.25 GM; Start 09/15/18 at 09:00; Status Hold Clonazepam (Klonopin) 0.5 mg DAILY PRN PO ANXIETY Last administered on 09/23/18 02:04; Admin Dose 0.5 MG; Start 09/15/18 at 07:30; Status Hold Docusate Sodium (Colace) 100 mg BID PO Last administered on 09/23/18 09:43; Admin Dose 100 MG; Start 09/15/18 at 09:00; Status Hold Rifaximin (Xifaxan) 550 mg BID PO Last administered on 09/22/18 21:42; Admin Dose 550 MG; Start 09/15/18 at 09:00; Status Hold Sertraline HCl (Zoloft) 100 mg DAILY PO ; Start 09/15/18 at 09:00; Status Hold Fluticasone/ Vilanterol (Breo Ellipta 200-25 Mcg Inh) 1 inh DAILY INH Last administered on 10/13/18 08:57; Admin Dose 1 INH; Start 09/15/18 at 09:00 Albuterol/ Ipratropium (Duoneb) 3 ml Q3H RESP THERAPY PRN HHN WHEEZING AND SOB Last administered on 09/21/18 21:08; Admin Dose 3 ML; Start 09/15/18 at 08:00 Levalbuterol (Xopenex Neb) 0.63 mg Q4H RESP THERAPY HHN Last administered on 10/11/18 17:07; Admin Dose 0.63 MG; Start 09/15/18 at 17:00 Levalbuterol (Xopenex Neb) 0.63 mg Q2H RESP THERAPY PRN HHN WHEEZING AND SOB; Start 09/15/18 at 14:00 Collagenase (Santyl) 1 applic DAILY TOP Last administered on 10/13/18 09:02; Admin Dose 1 APPLIC; Start 09/16/18 at 15:00 Multivitamins Therapeutic (Theragran) 1 tab DAILY PO Last administered on 10/13/18 08:56; Admin Dose 1 TAB; Start 09/19/18 at 12:00 Ascorbic Acid (Vitamin C) 500 mg DAILY PO Last administered on 09/23/18 09:45; Admin Dose 500 MG; Start 09/19/18 at 12:00; Status Hold Zinc Sulfate (Zinc Sulfate) 220 mg DAILY PO Last administered on 09/22/18 08:50; Admin Dose 220 MG; Start 09/19/18 at 12:00; Status Hold Thiamine HCl (Vitamin B1) 50 mg DAILY PO Last administered on 09/23/18 09:45; Admin Dose 50 MG; Start 09/19/18 at 12:00; Status Hold Simethicone (Mylicon) 80 mg Q6H PRN PO DISTENSION/GAS/BLOATING Last administered on 10/08/18 12:18; Admin Dose 80 MG; Start 09/20/18 at 06:30 Diltiazem HCl (Cardizem Cd) 120 mg DAILY PO Last administered on 09/23/18 11:41; Admin Dose 120 MG; Start 09/20/18 at 09:00; Status Hold Zolpidem Tartrate (Ambien) 5 mg HS PRN PO INSOMNIA Last administered on 09/24/18 01:16; Admin Dose 5 MG; Start 09/21/18 at 02:00; Status Hold Phenol (Cepastat Lozenge) 1 lozenge Q1H PRN MT SORE THROAT Last administered on 09/22/18 03:32; Admin Dose 1 LOZENGE; Start 09/22/18 at 01:00 Hydromorphone HCl (Dilaudid) 0.5 mg Q4H PRN IV SEVERE PAIN LEVEL 7-10 Last administered on 10/13/18 09:01; Admin Dose 0.5 MG; Start 09/24/18 at 03:00 Lorazepam (Ativan) 0.5 mg Q6H PRN IV ANXIETY Last administered on 10/13/18at 00:20; Admin Dose 0.5 MG; Start 09/24/18 at 03:00 Pantoprazole (Protonix Iv) 40 mg BID@,18 IV Last administered on 10/13/18 06:17; Admin Dose 40 MG; Start 09/24/18 at 18:00 Miscellaneous Information 1 ea NOTE XX ; Start 09/25/18 at 22:00 Glucose (Glutose) 15 gm Q15M PRN PO DECREASED GLUCOSE Last administered on 10/10/18at 06:27; Admin Dose 15 GM; Start 09/25/18 at 22:00 Glucose (Glutose) 22.5 gm Q15M PRN PO DECREASED GLUCOSE; Start 09/25/18 at 22:00 Dextrose (D50w Syringe) 25 ml Q15M PRN IV DECREASED GLUCOSE Last administered on 10/09/18at 22:51; Admin Dose 25 ML; Start 09/25/18 at 22:00 Dextrose (D50w Syringe) 50 ml Q15M PRN IV DECREASED GLUCOSE Last administered on 10/10/18at 06:50; Admin Dose 50 ML; Start 09/25/18 at 22:00 Glucagon (Glucagen) 1 mg Q15M PRN IM DECREASED GLUCOSE; Start 09/25/18 at 22:00 Glucose (Glutose) 15 gm Q15M PRN BUCCAL DECREASED GLUCOSE; Start 09/25/18 at 22:00 Methadone HCl (Methadone Liq) 2 mg Q4 SL Last administered on 10/13/18at 08:56; Admin Dose 2 MG; Start 09/28/18 at 09:30 IV Flush (NS 10 ml) 10 ml PRN PRN IV IV PROTOCOL; Start 09/30/18 at 19:30 Insulin Aspart (Novolog Insulin Pen) NOVOLOG *MILD* ALGORITHM WITH MEALS BEDTIME SC Last administered on 10/12/18at 11:35; Admin Dose 1 UNIT; Start 10/01/18 at 21:00 Diagnostic Test (Pha) (Accu-Chek) 1 ea Q4 XX Last administered on 10/13/18at 09:02; Admin Dose 1 EA; Start 10/03/18 at 13:00 Sodium Chloride 1,000 ml @ 50 mls/hr Q20H IV Last administered on 10/13/18at 04:35; Admin Dose 50 MLS/HR; Start 10/12/18 at 07:30 Metoprolol Tartrate (Lopressor) 12.5 mg ONCE ONCE PO ; Start 10/13/18 at 12:30; Stop 10/13/18 at 12:31; Status UNV Assessment/Plan Hospital Course (Demo Recall) Assessment/plan 1. COPD currently stable no acute exacerbation 2. Perforated bowel being managed conservatively Agree with DC planning EM[facility] STEINBERG MD, [facility] Oct 13, 2018 12:12
[2018-10-13] MEDS ORDERED: METOPROLOL 25 MG TAB PO ONE (12:30)
--- NOTE | 2018-10-13 12:32 | CONS ---
Assessment/Plan Assessment/Plan Hospital Course (Demo Recall) POD#11 No acute changes, afebrile Antimicrobials: none Indwelling: Left-sided RAFAL, PICC line, Cline catheter HEENT: Within normal limits. NECK: Supple. CHEST: Decreased breath sounds at the bases. HEART: S1 S2 ABDOMEN: Distended, bowel sounds hypoactive, mid abdominal dressing intact EXTREMITIES: Without cyanosis, clubbing, or edema. Assessment: 1. S/p acute hypoxemic respiratory failure 2. S/p sepsis with shock 3. Perforated bowel with multiple abscess and small bowel obstruction, status post laparotomy/open exploration 10/02/2018 4. HCAP===> treated 5. Non-ST elevation SD 6. COPD Plan: Stable, off abx, will repeat cx's prn Consultation Date/Type/Reason Admit Date/Time Sep 15, 2018 at 03:32 Initial Consult Date 09/24/18 Type of Consult id Requesting Provider: LEOBARDO DC Date/Time of Note DATE: 10/13/18 TIME: 12:31 Exam/Review of Systems Exam Vitals Vital Signs Date Temp Pulse Resp B/P (MAP) Pulse Ox O2 O2 Flow FiO2 Time Delivery Rate 10/13/18 98.0 110 22 120/65 97 Nasal 11:21 (83) Cannula 10/13/18 3.0 08:30 Intake and Output 10/12/18 10/12/18 10/13/18 1515:00 23:00 07:00 IntakeIntake Total 200 ml 300 ml BalanceBalance 200 ml 300 ml Results Result Diagram: 10/13/18 1017 10/13/18 1017 Results 24hrs Laboratory Tests Test 10/12/18 17:05 10/12/18 20:15 10/13/18 00:16 10/13/18 04:31 Bedside Glucose 138 97 137 90 Test 10/13/18 08:55 10/13/18 10:17 10/13/18 12:06 Bedside Glucose 91 163 White Blood Count 11.9 #H Red Blood Count 3.24 L Hemoglobin 9.2 L Hematocrit 30.1 L Mean Corpuscular 92.9 Volume Mean Corpuscular 28.4 L Hemoglobin Mean Corpuscular 30.6 L Hemoglobin Concent Red Cell 16.0 H Distribution Width Platelet Count 336 # Mean Platelet Volume 11.6 H Immature 0.600 H Granulocytes % Neutrophils % Lymphocytes % Monocytes % Eosinophils % Basophils % Nucleated Red Blood 0.0 Cells % Immature 0.070 H Granulocytes # Neutrophils # Lymphocytes # Monocytes # Eosinophils # Basophils # Nucleated Red Blood Cells # Sodium Level 132 L Potassium Level 3.4 L Chloride Level 93 L Carbon Dioxide Level 35 H Anion Gap 4 L Blood Urea Nitrogen 7 Creatinine 0.47 Est Glomerular > 60 Filtrat Rate mL/min Glucose Level 100 Calcium Level 7.3 L Phosphorus Level 3.3 Magnesium Level 1.9 Medications Medication Current Medications IV Flush (NS 3 ml) 3 ml PER PROTOCOL IV ; Start 09/15/18 at 07:30 Ondansetron HCl (Zofran Inj) 4 mg Q6H PRN IV NAUSEA/VOMITING Last administered on 10/09/18 12:45; Admin Dose 4 MG; Start 09/15/18 at 07:30 Acetaminophen (Tylenol Tab) 650 mg Q6H PRN PO .PAIN 1-3 OR TEMP Last administered on 09/16/18 21:56; Admin Dose 650 MG; Start 09/15/18 at 07:30 Baclofen (Lioresal) 10 mg BID PO Last administered on 09/23/18 09:45; Admin Dose 10 MG; Start 09/15/18 at 09:00; Status Hold Buspirone HCl (Buspar) 10 mg BID PO Last administered on 09/23/18 11:44; Admin Dose 10 MG; Start 09/15/18 at 09:00; Status Hold Calcium Carbonate (Oyster Shell Calcium) 1.25 gm BID PO Last administered on 09/23/18 11:44; Admin Dose 1.25 GM; Start 09/15/18 at 09:00; Status Hold Clonazepam (Klonopin) 0.5 mg DAILY PRN PO ANXIETY Last administered on 09/23/18 02:04; Admin Dose 0.5 MG; Start 09/15/18 at 07:30; Status Hold Docusate Sodium (Colace) 100 mg BID PO Last administered on 09/23/18 09:43; Admin Dose 100 MG; Start 09/15/18 at 09:00; Status Hold Rifaximin (Xifaxan) 550 mg BID PO Last administered on 09/22/18 21:42; Admin Dose 550 MG; Start 09/15/18 at 09:00; Status Hold Sertraline HCl (Zoloft) 100 mg DAILY PO ; Start 09/15/18 at 09:00; Status Hold Fluticasone/ Vilanterol (Breo Ellipta 200-25 Mcg Inh) 1 inh DAILY INH Last administered on 10/13/18 08:57; Admin Dose 1 INH; Start 09/15/18 at 09:00 Albuterol/ Ipratropium (Duoneb) 3 ml Q3H RESP THERAPY PRN HHN WHEEZING AND SOB Last administered on 09/21/18 21:08; Admin Dose 3 ML; Start 09/15/18 at 08:00 Levalbuterol (Xopenex Neb) 0.63 mg Q4H RESP THERAPY HHN Last administered on 10/11/18 17:07; Admin Dose 0.63 MG; Start 09/15/18 at 17:00 Levalbuterol (Xopenex Neb) 0.63 mg Q2H RESP THERAPY PRN HHN WHEEZING AND SOB; Start 09/15/18 at 14:00 Collagenase (Santyl) 1 applic DAILY TOP Last administered on 10/13/18 09:02; Admin Dose 1 APPLIC; Start 09/16/18 at 15:00 Multivitamins Therapeutic (Theragran) 1 tab DAILY PO Last administered on 10/13/18 08:56; Admin Dose 1 TAB; Start 09/19/18 at 12:00 Ascorbic Acid (Vitamin C) 500 mg DAILY PO Last administered on 09/23/18 09:45; Admin Dose 500 MG; Start 09/19/18 at 12:00; Status Hold Zinc Sulfate (Zinc Sulfate) 220 mg DAILY PO Last administered on 09/22/18 08:50; Admin Dose 220 MG; Start 09/19/18 at 12:00; Status Hold Thiamine HCl (Vitamin B1) 50 mg DAILY PO Last administered on 09/23/18 09:45; Admin Dose 50 MG; Start 09/19/18 at 12:00; Status Hold Simethicone (Mylicon) 80 mg Q6H PRN PO DISTENSION/GAS/BLOATING Last administered on 10/08/18 12:18; Admin Dose 80 MG; Start 09/20/18 at 06:30 Diltiazem HCl (Cardizem Cd) 120 mg DAILY PO Last administered on 09/23/18 11:41; Admin Dose 120 MG; Start 09/20/18 at 09:00; Status Hold Zolpidem Tartrate (Ambien) 5 mg HS PRN PO INSOMNIA Last administered on 09/24/18 01:16; Admin Dose 5 MG; Start 09/21/18 at 02:00; Status Hold Phenol (Cepastat Lozenge) 1 lozenge Q1H PRN MT SORE THROAT Last administered on 09/22/18 03:32; Admin Dose 1 LOZENGE; Start 09/22/18 at 01:00 Hydromorphone HCl (Dilaudid) 0.5 mg Q4H PRN IV SEVERE PAIN LEVEL 7-10 Last administered on 10/13/18 09:01; Admin Dose 0.5 MG; Start 09/24/18 at 03:00 Lorazepam (Ativan) 0.5 mg Q6H PRN IV ANXIETY Last administered on 10/13/18 00:20; Admin Dose 0.5 MG; Start 09/24/18 at 03:00 Pantoprazole (Protonix Iv) 40 mg BID@06,18 IV Last administered on 10/13/18 06:17; Admin Dose 40 MG; Start 09/24/18 at 18:00 Miscellaneous Information 1 ea NOTE XX ; Start 09/25/18 at 22:00 Glucose (Glutose) 15 gm Q15M PRN PO DECREASED GLUCOSE Last administered on 10/10/18 06:27; Admin Dose 15 GM; Start 09/25/18 at 22:00 Glucose (Glutose) 22.5 gm Q15M PRN PO DECREASED GLUCOSE; Start 09/25/18 at 22:00 Dextrose (D50w Syringe) 25 ml Q15M PRN IV DECREASED GLUCOSE Last administered on 10/09/18at 22:51; Admin Dose 25 ML; Start 09/25/18 at 22:00 Dextrose (D50w Syringe) 50 ml Q15M PRN IV DECREASED GLUCOSE Last administered on 10/10/18at 06:50; Admin Dose 50 ML; Start 09/25/18 at 22:00 Glucagon (Glucagen) 1 mg Q15M PRN IM DECREASED GLUCOSE; Start 09/25/18 at 22:00 Glucose (Glutose) 15 gm Q15M PRN BUCCAL DECREASED GLUCOSE; Start 09/25/18 at 22:00 Methadone HCl (Methadone Liq) 2 mg Q4 SL Last administered on 10/13/18at 08:56; Admin Dose 2 MG; Start 09/28/18 at 09:30 IV Flush (NS 10 ml) 10 ml PRN PRN IV IV PROTOCOL; Start 09/30/18 at 19:30 Insulin Aspart (Novolog Insulin Pen) NOVOLOG *MILD* ALGORITHM WITH MEALS BEDTIME SC Last administered on 10/12/18 11:35; Admin Dose 1 UNIT; Start 10/01/18 at 21:00 Diagnostic Test (Pha) (Accu-Chek) 1 ea Q4 XX Last administered on 10/13/18at 09:02; Admin Dose 1 EA; Start 10/03/18 at 13:00 Sodium Chloride 1,000 ml @ 50 mls/hr Q20H IV Last administered on 10/13/18at 04:35; Admin Dose 50 MLS/HR; Start 10/12/18 at 07:30 Metoprolol Tartrate (Lopressor) 12.5 mg ONCE ONCE PO ; Start 10/13/18 at 12:30; Stop 10/13/18 at 12:31 SKY BENAVIDES NP Oct 13, 2018 12:32
[2018-10-13 15:10] VITALS: BP 134/71; PULSE 65; RESP 20
--- NOTE | 2018-10-13 16:46 | PN ---
Date/Time of Note Date/Time of Note DATE: 10/13/18 TIME: 16:42 Assessment/Plan Lines/Catheters IV Catheter Type (from Nrs): PICC Line Cline in Place (from Nrs): No Assessment/Plan Chief Complaint/Hosp Course 1. Respiratory distress sp high flow oxygen; right pleural effusion with Right lung base consolidation -Per pulmonary -Oxygen supplementation as needed -Pulmonary toilet 2. Perforated terminal ileum with multiple abscesses, patient and son finally agreeable to surgery yesterday s/p lap > open ileocolectomy and drainage of abscesses (10/03).; With likely paralytic ileus-resolved; octaviano drain remove today -diet as tolerated -ambulate > PT -supportive -fluids -dc ok from surgical standpoint with fu in office in 2 weeks 3. Sepsis (resolved), with persistent bandemia -as above 4. Acute renal insufficiency improved judicious fluid management -avoid nephrotoxic agents 5. Elevated transaminases, history of hep C -Monitor 6. NSTEMI with Persistent tachycardia (improving HR). -Consider cardiology consult -medical/cardiac optimization 7. Anemia status post PRBC transfusion, downtrending -monitor 8.Chronic methadone use: -pain mgt 9. Electrolyte imbalance: -Optimize electrolytes> per medical team Thank you. Patient seen and examined in collaboration with Dr. Naveed Schumacher. Subjective 24 Hr Interval Summary Continues to feel well. OCTAVIANO drain output decreased. No fevers, chills, sob, congested cough, cp, palpitations, savage, dizziness, n/v/d/dysuria. Exam/Review of Systems Vital Signs Vitals Vital Signs Date Temp Pulse Resp B/P (MAP) Pulse Ox O2 O2 Flow FiO2 Time Delivery Rate 10/13/18 98.4 65 20 134/71 97 Nasal 15:10 (92) Cannula 10/13/18 3.0 08:30 Intake and Output 10/12/18 10/12/18 10/13/18 1515:00 23:00 07:00 IntakeIntake Total 200 ml 300 ml BalanceBalance 200 ml 300 ml Exam Free Text/Dictation Constitutional: alert, oriented, nad Psych: nl mood/affect; No anxiety Head: normocephalic, lacerations Eyes: nl conjunctiva, EOMI, PERRL; No icteric ENMT: nl external ears & nose, mucosa pink and moist Neck: supple, non-tender, jvd Respiratory: normal air movement; high flow No congested cough, No labored breathing Cardiovascular: regular rate and rhythm, No edema Gastrointestinal: soft, distended (min), min tender, octaviano serosang; No rebound, guarding, rigidity, midabdominal incision line with steri-strips; min erythema inferior portion Musculoskeletal: nl extremities to inspection; No nl gait and stance, No joint tenderness Extremities: normal pulses Results Result Diagram: 10/13/18 1017 10/13/18 1017 RAFAEL EMERY NP Oct 13, 2018 16:46
== END 2018-10-13 20:15 | DRG 853 ==
LOC: E/R 00:42 → TEL 03:32 → ICU 08:58 → TEL 09-19 22:13 → 2NE 09-22 23:59 → TEL 09-24 10:27 → ICU 10-03 00:10 → TEL 10-04 19:40
PROVIDERS: ADMIT Internal Medicine; ATTEND Hospitalist
PROC: 5A09457 Assistance with Respiratory Ventilation, 24-96 Consecutive Hours, Continuous Positive Airway Pressure (ICD-10-PCS; 2018-09-15)
PROC: 30233N1 Transfusion of Nonautologous Red Blood Cells into Peripheral Vein, Percutaneous Approach (ICD-10-PCS; 2018-09-23)
PROC: 02HV33Z Insertion of Infusion Device into Superior Vena Cava, Percutaneous Approach (ICD-10-PCS; 2018-09-30)
PROC: 0W9J4ZZ Drainage of Pelvic Cavity, Percutaneous Endoscopic Approach (ICD-10-PCS; 2018-10-02)
PROC: 0DBB0ZZ Excision of Ileum, Open Approach (ICD-10-PCS; 2018-10-02)
PROC: 0W9G4ZZ Drainage of Peritoneal Cavity, Percutaneous Endoscopic Approach (ICD-10-PCS; 2018-10-02)
PROC: 0DTF0ZZ Resection of Right Large Intestine, Open Approach (ICD-10-PCS; principal; 2018-10-02 20:30)
DX: A41.9 Sepsis, unspecified organism (principal); J96.02 Acute respiratory failure with hypercapnia; I21.A1 Myocardial infarction type 2; N17.0 Acute kidney failure with tubular necrosis; K63.1 Perforation of intestine (nontraumatic); K65.1 Peritoneal abscess; G92 Toxic encephalopathy; R65.21 Severe sepsis with septic shock; J18.9 Pneumonia, unspecified organism; J96.01 Acute respiratory failure with hypoxia; J44.1 Chronic obstructive pulmonary disease with (acute) exacerbation; E87.0 Hyperosmolality and hypernatremia; E87.1 Hypo-osmolality and hyponatremia; F11.20 Opioid dependence, uncomplicated; K92.2 Gastrointestinal hemorrhage, unspecified; K56.609 Unspecified intestinal obstruction, unspecified as to partial versus complete obstruction; K56.0 Paralytic ileus; R64 Cachexia; Z68.1 Body mass index [BMI] 19.9 or less, adult; D64.9 Anemia, unspecified; R74.0 Nonspecific elevation of levels of transaminase and lactic acid dehydrogenase [LDH]; B19.20 Unspecified viral hepatitis C without hepatic coma; E86.0 Dehydration; E78.5 Hyperlipidemia, unspecified; F99 Mental disorder, not otherwise specified; G89.29 Other chronic pain; I27.20 Pulmonary hypertension, unspecified; K70.31 Alcoholic cirrhosis of liver with ascites; K52.9 Noninfective gastroenteritis and colitis, unspecified; K21.9 Gastro-esophageal reflux disease without esophagitis; L89.320 Pressure ulcer of left buttock, unstageable; L89.310 Pressure ulcer of right buttock, unstageable; L89.629 Pressure ulcer of left heel, unspecified stage; L89.619 Pressure ulcer of right heel, unspecified stage; N18.9 Chronic kidney disease, unspecified; Z66 Do not resuscitate; Z53.31 Laparoscopic surgical procedure converted to open procedure; Z86.711 Personal history of pulmonary embolism; Z79.01 Long term (current) use of anticoagulants
CPT/HCPCS: 36415; 36430; 36569; 36573; 36600; 71045; 71260; 71275; 74018; 74177; 74250; 76705; 76937; 80048; 80053; 80061; 80076; 80202; 80307; 81001; 81003; 82270; 82550; 82553; 82803; 82947; 82962; 83036; 83605; 83735; 83935; 84075; 84100; 84134; 84145; 84155; 84156; 84300; 84478; 84484; 85014; 85018; 85025; 85610; 85730; 86850; 86900; 86901; 86920; 87045; 87075; 87081; 87086; 88304; 89190; 92526; 92610; 93005; 93306; 94640; 94660; 96374; 96375; 97110; 97162; 97164; 97530; C1751; C9113; J0690; J1100; J1170; J1450; J1650; J1815; J1956; J2060; J2185; J2250; J2270; J2370; J2405; J2543; J2710; J2920; J2930; J3010; J3370; J3475; J3480; J7030; J7040; J7042; J7050; J7070; P9016; Q9967